=== PATIENT | female | born 1945 | race Caucasian/White ===

== ENCOUNTER → 2016-11-28 | Outpatient (CLI) | payer MEDICARE ==
--- NOTE | 2016-11-28 15:54 | US ---
EXAMINATION TYPE: US thyroid st tissue head/neck DATE OF EXAM: 11/28/2016 COMPARISON: NONE CLINICAL HISTORY: R22.1 SWELLING IN NECK. small lymph node seen rt neck 1.4 x 0.7 x 0.8 cm GLAND SIZE: Right Lobe: 3.9 x 1.7 x 1.2 cm Overall Parenchyma: homogenous Left Lobe: 4.5 x 1.5 x 1.3 cm Overall Parenchyma: homogeneous Isthmus Thickness: 0.5 cm NODULES RIGHT: # of nodules measured on right: 1 1. 1.1 X 1.2 x 0.7 cm isoechoic mixed nodule at the mid pole with well-defined margins; . This nod ule is wider than tall and shows intranodular vascularity. Prior size: no prior LEFT: # of nodules measured on left: 0 ISTHMUS: # of nodules measured in the isthmus: 0 Mildly prominent lymph node right neck measuring 1.4 x 0.7 cm. IMPRESSION: 1. Nonspecific thyroid nodule. 2. Mildly prominent lymph node right neck.
--- NOTE | 2016-11-29 08:55 | BD ---
EXAMINATION TYPE: MG DEXA axial skeleton. DATE OF EXAM: 11/28/2016 COMPARISON: Prior DEXA bone scan April 16, 2010. CLINICAL HISTORY: Postmenopausal female Height: 62 Weight: 259.1 FRAX RISK QUESTIONS: Alcohol (3 or more units per day): NO Family History (Parent hip fracture): NO Glucocorticoids (More than 3mos): NO (Ex: prednisone, prednisolone, methylprednisolone, dexamethasone, and hydrocortisone). History of Fracture in Adulthood: NO Secondary Osteoporosis: 1. Type 1 Diabetes: NO 2. Hyperthyroidism: NO 3. Menopause before 45: NO 4. Malnutrition: NO 5. Chronic liver disease: NO Rheumatoid Arthritis: YES Current Tobacco Use: NO RISK FACTORS HISTORY OF: Hip Fracture (Right/Left): NO Spine Fracture: NO History of Wrist Fracture: NO Surgery to Spine/Hip(right/left)/Wrist (right/left): NO Family History of Osteoporosis: NO Active: NO Diet low in dairy products/other sources of calcium: YES Postmenopausal woman: TOTAL HYSTERECTOMY AGE 43 Lost more than 2 inches in height since high school: NO Frequent falls: NO Poor Health: NO Hyperparathyroidism: NO Adrenal Insufficiency: NO MEDICATIONS: TYPE 2 DIABETIC MEDS, HEART MEDS, RESTLESS LEG MEDS, Additional History: EXAM MEASUREMENTS: Bone mineral densitometry was performed using the [employer]. Bone mineral density as measured about the Lumbar spine is: ----- L1-L4(G/cm2): 1.284 T Score Values are as follows: ----- L2: 1.6 ----- L3: 2.1 ----- L4: 0.1 ----- L1-L4: 0.9 Bone mineral density has: UWOVCMXPR09.7 % since study of: 04.16.2010 Bone mineral density about the R hip (g/cm2): 0.755 Bone mineral density about the L hip (g/cm2): 0.880 T Score values are as follows: -----R Neck: -2.0 -----L Neck: -1.1 -----R Total: -1.1 -----L Total: -0.6 Bone mineral density has: DECREASED -4.9 % since study of: 04.16.2010 IMPRESSION: Osteopenia (T Score between -2.5 and -1 as noted by T score values persists in the bilateral hips. Jorge ne density felt falsely elevated in the low back due to reactive sclerosis. Bone density slightly dim inished from prior exam in both hips. There is slightly increased risk of fracture and the patient ma y be considered for treatment. Re-Screen 2-5 years. NOTE: T-SCORE=SD OF THE YOUNG ADULT MEAN.
--- NOTE | 2016-11-29 11:53 | MM ---
Reason for exam: screening (asymptomatic). Last mammogram was performed 2 years and 1 month ago. History: Patient is postmenopausal. Family history of breast cancer in paternal aunt at age 55. Taking estrogen for 20 years beginning at age 43. Physical Findings: A clinical breast exam by your physician is recommended on an annual basis and results should be correlated with mammographic findings. MG 3D Screening Mammo W/Cad Bilateral CC and MLO view(s) were taken. Prior study comparison: November 09, 2014, bilateral MG screening mammo w CAD. April 16, 2010, bilateral digital screening mammo w/CAD. There are scattered fibroglandular densities. Finding: There are typically benign round, diffuse and grouped calcifications in both breasts. There is no discrete abnormality. ASSESSMENT: Benign, BI-RAD 2 RECOMMENDATION: Routine screening mammogram of both breasts in 1 year.
== END | disposition home or self-care (01) ==
LOC: RADMAMWWP 15:00
PROVIDERS: ATTEND Family Medicine
DX: Z12.31 Encounter for screening mammogram for malignant neoplasm of breast (principal); M85.88 Other specified disorders of bone density and structure, other site; E04.1 Nontoxic single thyroid nodule; R59.0 Localized enlarged lymph nodes; Z78.0 Asymptomatic menopausal state; Z13.820 Encounter for screening for osteoporosis
CPT/HCPCS: 77080; 77063; 76536; G0202

== ENCOUNTER → 2017-07-18 | Outpatient (CLI) | payer MEDICARE ==
--- NOTE | 2017-07-18 10:48 | US ---
EXAMINATION TYPE: US thyroid st tissue head/neck DATE OF EXAM: 07/18/2017 COMPARISON: Thyroid ultrasound November 28, 2016 CLINICAL HISTORY: R22.1 Swelling Neck, I48.91 A Fib. Swollen neck. Hx of nodule. GLAND SIZE: Right Lobe: 4.0 x 2.1 x 1.2 cm Overall Parenchyma: heterogenous Left Lobe: 4.3 x 1.8 x 1.7 cm Overall Parenchyma: heterogeneous Isthmus Thickness: 0.5 cm NODULES RIGHT: # of nodules measured on right: 2 1. 1.2 X 1.2 x 0.9 cm hypoechoic solid nodule at the mid pole with well-defined margins. This nod ule is taller than wide and shows intranodular vascularity. Prior size: 1.1 x 1.2 x 0.7 cm 2. 0.7 X 0.5 x 0.4 cm echogenic solid nodule at the lower pole with well-defined margins. This nodu le is taller than wide and shows no intranodular vascularity. Prior size: No prior LEFT: # of nodules measured on left: 0 ISTHMUS: # of nodules measured in the isthmus: 0 Bilateral neck scanned, no evidence of lymphadenopathy. Heterogeneous normal-sized thyroid redemonstrated with stable 1.2 cm spongiform nodule. On current st udy technologist also pandey a 7 mm posterior hyperechoic nodule not clearly seen on prior. IMPRESSION: No new greater than 1 cm solid or cystic nodules are seen.
--- NOTE | 2017-07-18 10:50 | US ---
EXAMINATION TYPE: US carotid duplex BILAT DATE OF EXAM: 07/18/2017 COMPARISON: NONE CLINICAL HISTORY: R22.1 Swelling Neck, I48.91 A Fib. Afib, HTN controlled with meds EXAM MEASUREMENTS: RIGHT: Peak Systolic Velocity (PSV) cm/sec ----- Right CCA: 58.2 ----- Right ICA: 74.5 ----- Right ECA: 119.5 ICA/CCA ratio: 1.3 RIGHT: End Diastole cm/sec ----- Right CCA: 18.2 ----- Right ICA: 21.6 ----- Right ECA: 19.2 LEFT: Peak Systolic Velocity (PSV) cm/sec ----- Left CCA: 90.4 ----- Left ICA: 134.5 ----- Left ECA: 85.4 ICA/CCA ratio: 1.5 LEFT: End Diastole cm/sec ----- Left CCA: 28.7 ----- Left ICA: 45.7 ----- Left ECA: 23.2 VERTEBRALS (direction of flow): Right Vertebral: Antegrade Left Vertebral: Antegrade Rhythm: Arrhythmia Mild eccentric plaque is seen at bilateral carotid bulbs. Slightly increased velocity measured in the left internal carotid artery is believed exaggerated by tortuous course. Arrhythmia noted during laxmi l-time scanning. IMPRESSION: No hemodynamically significant stenosis seen in either internal carotid artery. Arrhyth antonieta during real-time scanning is present. If this is not known finding further investigation with Hol ter monitoring should be considered.
== END | disposition home or self-care (01) ==
LOC: RADUSWWP 09:41
PROVIDERS: ATTEND Family Medicine
DX: R22.1 Localized swelling, mass and lump, neck (principal); I48.91 Unspecified atrial fibrillation
CPT/HCPCS: 76536; 93880

== ENCOUNTER 2018-03-31 15:03 | Inpatient (IN) | payer MEDICARE ==
[2018-03-31] MEDS ORDERED: VANCOMYCIN IV PER PHARMACY 1 EACH MISC MISCELLANE PRN (15:49)
[2018-03-31] MEDS ORDERED: PIPERACILLIN-TAZOBACTAM 3.375 GM in SODIUM CHLORIDE 0.9% 100 ML IVPB STA (15:49)
[2018-03-31] MEDS ORDERED: SODIUM CHLORIDE 0.9% 1,000 ML IV ONE (15:49)
--- NOTE | 2018-03-31 15:59 | ED ---
Skin/Abscess/FB HPI - General Chief complaint: Skin/Abscess/Foreign Body Stated complaint: lower body infection Time Seen by Provider: 03/31/18 15:33 Source: patient, RN notes reviewed, old records reviewed Mode of arrival: ambulatory Limitations: no limitations - History of Present Illness Initial comments: Patient is a 72-year-old female with history of diabetes presenting to the emergency department today with a groin infection. Patient ports she was diagnosed as labial cellulitis by her HOTSHOT SUPERINTENDENT Dr. Richmond. She's been on amoxicillin for the past and days and reports that her symptoms have been progressively worse. Patient states that she discussed the case with Dr. Richmond discussed the case with Dr. Shirley. Dr. Shirley recommended bringing the Patient in for IV antibiotics and admission. Patient states that she has had no fevers or chills. She states that she's had a cellulitis in the area of infection for the past month. She is stressed with taking care of other family 7 seconds and her over the past month. - Related Data Home Medications Medication Instructions Recorded Confirmed Insulin Aspart [NovoLOG] 0 units SQ [facility] 10/10/14 10/10/14 Insulin Glargine,Hum.rec.anlog 0 unit SQ 10/10/14 10/10/14 [Lantus Solostar] Lisinopril [Prinivil] 20 mg PO DAILY 10/10/14 03/31/18 Atorvastatin [Lipitor] 40 mg PO DAILY 03/31/18 03/31/18 Cyclobenzaprine [Flexeril] 10 mg PO HS 03/31/18 03/31/18 Multivitamins, Thera [Multivitamin 1 tab PO DAILY 03/31/18 03/31/18 (formulary)] Potassium 297 mg PO HS 03/31/18 03/31/18 Torsemide [Demadex] 10 mg PO DAILY 03/31/18 03/31/18 metFORMIN HCL ER [Glucophage Xr] 500 mg PO DAILY 03/31/18 03/31/18 Allergies Allergy/AdvReac Type Severity Reaction Status Date / Time adhesive Allergy Unknown Verified 03/31/18 16:17 aluminum Allergy Unknown Verified 03/31/18 16:17 Antihistamines - Allergy Unknown Verified 03/31/18 16:17 Ethylenediamine codeine Allergy Unknown Verified 03/31/18 16:17 hydrogen peroxide Allergy Unknown Verified 03/31/18 16:17 latex Allergy Unknown Verified 03/31/18 16:17 lidocaine Allergy Unknown Verified 03/31/18 16:17 nickel Allergy Unknown Verified 03/31/18 16:17 petrolatum,white Allergy Unknown Verified 03/31/18 16:17 [From Petroleum Jelly] procaine HCl [From Novocain] Allergy Unknown Verified 03/31/18 16:17 shellfish derived [Shellfish] Allergy Unknown Verified 03/31/18 16:17 thiopental sodium Allergy Unknown Verified 03/31/18 16:17 [From Pentothal] Review of Systems ROS Statement: Those systems with pertinent positive or pertinent negative responses have been documented in the HPI. ROS Other: All systems not noted in ROS Statement are negative. Past Medical History Past Medical History: Atrial Fibrillation, Coronary Artery Disease (CAD), CVA/ TIA, Diabetes Mellitus, Deep Vein Thrombosis (DVT), Myocardial Infarction ([place]) History of Any Multi-Drug Resistant Organisms: None Reported Past Surgical History: Adenoidectomy, Hysterectomy, Orthopedic Surgery, Tonsillectomy, Tubal Ligation Past Psychological History: No Psychological Hx Reported Smoking Status: Never smoker Past Alcohol Use History: None Reported Past Drug Use History: None Reported General Exam - General Exam Comments Initial Comments: Pleasant 72-year-old female. No distress. Limitations: no limitations General appearance: alert, in no apparent distress Head exam: Present: atraumatic, normocephalic, normal inspection Eye exam: Present: normal appearance, PERRL, EOMI. Absent: scleral icterus, conjunctival injection, periorbital swelling ENT exam: Present: normal exam, mucous membranes moist Neck exam: Present: normal inspection. Absent: tenderness, meningismus, lymphadenopathy Respiratory exam: Present: normal lung sounds bilaterally. Absent: respiratory distress, wheezes, rales, rhonchi, stridor Cardiovascular Exam: Present: regular rate GI/Abdominal exam: Present: soft, normal bowel sounds. Absent: distended, tenderness, guarding, rebound, rigid Extremities exam: Present: normal inspection, full ROM, normal capillary refill , other (And is area of cellulitis over the right inguinal region with the area of the small abscess over the right labia majora. Purulent drainage noted.). Absent: tenderness, pedal edema, joint swelling, calf tenderness Back exam: Present: normal inspection Neurological exam: Present: alert, oriented X3, CN II-XII intact Psychiatric exam: Present: normal affect, normal mood Skin exam: Present: warm, dry, intact, normal color. Absent: rash Course Vital Signs 03/31/18 15:12 Temperature 98.5 F Pulse Rate 112 H Respiratory 18 Rate Blood Pressure 134/88 O2 Sat by Pulse 96 Oximetry Medical Decision Making - Medical Decision Making This patient's a 72-year-old female who presents emergency Department today with complaints of right groin cellulitis abscess. She's been treated with amoxicillin for the past 10 days by her bi architect Dr. Richmond. Patient has evidence of L groin cellulitis with purulent drainage from small abscesses over the right labia. Patient had a culture obtained. We will put the Patient on Zosyn and vancomycin pharmacy to dose. Patient does have a mildly elevated lactic acid 2.1. She was tachycardic on upon arrival and white blood cell count was mildly elevated at 12.8. Dr. Lam discussed the case with Dr. Shirley who agrees for admission. And Patient will have consults to Dr. Richmond, and infectious disease. - Lab Data Result diagrams: 03/31/18 16:11 03/31/18 16:11 Lab Results 03/31/18 03/31/18 03/31/18 Range/Units 16:11 16:11 16:11 WBC 12.8 H (3.8-10.6) k/uL RBC 4.62 (3.80-5.40) m/uL Hgb 13.6 (11.4-16.0) gm/dL Hct 40.9 (34.0-46.0) % MCV 88.4 (80.0-100.0) fL MCH 29.4 (25.0-35.0) pg MCHC 33.2 (31.0-37.0) g/dL RDW 14.6 (11.5-15.5) % Plt Count 252 (150-450) k/uL Neutrophils % 77 % Lymphocytes % 16 % Monocytes % 4 % Eosinophils % 2 % Basophils % 0 % Neutrophils # 9.9 H (1.3-7.7) k/uL Lymphocytes # 2.0 (1.0-4.8) k/uL Monocytes # 0.6 (0-1.0) k/uL Eosinophils # 0.3 (0-0.7) k/uL Basophils # 0.1 (0-0.2) k/uL Sodium 139 (137-145) mmol/L Potassium 4.2 (3.5-5.1) mmol/L Chloride 101 (98-107) mmol/L Carbon Dioxide 27 (22-30) mmol/L Anion Gap 11 mmol/L BUN 23 H (7-17) mg/dL Creatinine 0.79 (0.52-1.04) mg/dL Est GFR (CKD-EPI)AfAm 86 (>60 ml/min/1.73 sqM) Est GFR (CKD-EPI)NonAf 75 (>60 ml/min/1.73 sqM) Glucose 237 H (74-99) mg/dL Plasma Lactic Acid Jaspreet 2.1 H* (0.7-2.0) mmol/L Calcium 9.5 (8.4-10.2) mg/dL Total Bilirubin 0.7 (0.2-1.3) mg/dL AST 20 (14-36) U/L ALT 21 (9-52) U/L Alkaline Phosphatase 103 (38-126) U/L Total Protein 7.4 (6.3-8.2) g/dL Albumin 4.0 (3.5-5.0) g/dL Disposition Clinical Impression: Cellulitis of groin, right, Failure of outpatient treatment, Diabetes Disposition: ADMITTED IP TO THIS HOSP Condition: Good Is patient prescribed a controlled substance at d/c from ED?: No Referrals: Luis Shirley MD [Primary Care Provider] - 1-2 days Time of Disposition: 17:16
[2018-03-31] MEDS: SODIUM CHLORIDE 0.9% 1,000 ML IV SCH (16:19)
[2018-03-31] MEDS ORDERED: VANCOMYCIN 1,750 MG in SODIUM CHLORIDE 0.9% 500 ML 500 ML IVPB ONE (16:30)
[2018-03-31 16:33] LABS: Calcium 9.5 mg/dL (8.4-10.2); Potassium 4.2 mmol/L (3.5-5.1); Total Bilirubin 0.7 mg/dL (0.2-1.3); Total Protein 7.4 g/dL (6.3-8.2)
[2018-03-31 16:47] LABS: Basophils # (A) 0.1 k/uL (0-0.2); Basophils % (A) 0 %; Eosinophils # (A) 0.3 k/uL (0-0.7); Eosinophils % (A) 2 %; HCT 40.9 % (34.0-46.0); HGB 13.6 gm/dL (11.4-16.0); Lymphocytes % (A) 16 %; MCH 29.4 pg (25.0-35.0); MCHC 33.2 g/dL (31.0-37.0); MCV 88.4 fL (80.0-100.0); Mean Platelet Volume 8.3; Monocytes # (A) 0.6 k/uL (0-1.0); Monocytes % (A) 4 %; Neutrophils # (A) 9.9 k/uL (1.3-7.7); Neutrophils % (A) 77 %; Platelet Count 252 k/uL (150-450); RBC 4.62 m/uL (3.80-5.40); RDW 14.6 % (11.5-15.5); WBC 12.8 k/uL (3.8-10.6)
[2018-03-31] MEDS ORDERED: IBUPROFEN 400 MG TAB PO PRN (17:17)
[2018-03-31] MEDS ORDERED: ACETAMINOPHEN TAB 325 MG TAB PO PRN (17:17)
[2018-03-31] MEDS ORDERED: oxyCODONE-APAP 5-325MG 1 EACH TAB PO PRN (17:17)
[2018-03-31] MEDS ORDERED: NALOXONE 0.4 MG/ML 1 ML VIAL IV PRN (17:17)
[2018-03-31] MEDS ORDERED: ONDANSETRON 4 MG/2 ML VIAL IVP PRN (17:17)
[2018-03-31] MEDS ORDERED: HYDROcodone/APAP 5-325MG 1 EACH TAB PO PRN (17:17)
[2018-03-31 17:56] LABS: Appearance,Urine Clear (Clear); Bilirubin,Urine Negative (Negative); Blood,Urine Negative (Negative); Color,Urine Light Yellow; Glucose,Urine (UA) Negative (Negative); Ketones,Urine Negative (Negative); Leukocyte Esterase,Urine Negative (Negative); Nitrite,Urine Negative (Negative); Protein,Urine Negative (Negative); Specific Gravity,Urine 1.006 (1.001-1.035); Urobilinogen,Urine <2.0 mg/dL (<2.0)
[2018-03-31 22:10] LABS: Glucose,Whole Blood 215 mg/dL (75-99)
[2018-03-31] MEDS: POTASSIUM CHLORIDE ER 10 MEQ TAB.ER.PRT PO SCH (22:10)
[2018-03-31] MEDS: INSULIN DETEMIR 100 UNIT/ML 10 ML VIAL SQ SCH (22:29)
[2018-04-01] MEDS ORDERED: CYCLOBENZAPRINE 10 MG TAB ONE (01:30)
[2018-04-01] MEDS: SODIUM CHLORIDE 0.9% 1,000 ML IV SCH ×2 (04:45→09:22)
[2018-04-01] MEDS: CYCLOBENZAPRINE 10 MG TAB PO SCH (04:45)
[2018-04-01 07:37] VITALS: BMI 42.0
[2018-04-01 07:58] LABS: Glucose,Whole Blood 132 mg/dL (75-99)
[2018-04-01] MEDS ORDERED: LISINOPRIL 20 MG TAB PO SCH (09:00)
[2018-04-01] MEDS ORDERED: ATORVASTATIN 40 MG TAB PO SCH (09:00)
[2018-04-01] MEDS: INSULIN ASPART 100 UNIT/ML 1 ML 10 ML VIAL SQ SCH ×4 (09:11→21:45)
[2018-04-01] MEDS: MULTIVITAMINS, THERA 1 EACH TAB PO SCH (09:12)
[2018-04-01] MEDS: metFORMIN 500 MG TAB PO SCH ×2 (09:12→18:12)
[2018-04-01] MEDS: PANTOPRAZOLE 40 MG/10 ML VIAL IV SCH (09:12)
[2018-04-01] MEDS: FUROSEMIDE 20 MG TAB PO SCH (09:23)
[2018-04-01 11:41] LABS: Glucose,Whole Blood 133 mg/dL (75-99)
[2018-04-01] MEDS: VANCOMYCIN 1,750 MG in SODIUM CHLORIDE 0.9% 500 ML 500 ML IVPB SCH (12:21)
--- NOTE | 2018-04-01 14:29 | P.HPIM ---
History of Present Illness H&P Date: 04/01/18 Chief Complaint: Inguinal cellulitis This is a history of physical 72-year-old white female who has an underlying history of somewhat poorly controlled diabetes who has failed outpatient treatment at the emergency department for interstitial cellulitis. She's been on antibiotics for about a week and has had not had significant improvement. She states because of significant family stress, she's not been "taking care of herself as well as she could." Low-grade fever but no chills are stated. No sniffing nausea or vomiting Review of Systems Constitutional: Reports fatigue, Denies chills, Denies fever Eyes: denies blurred vision, denies pain Ears, nose, mouth and throat: Denies headache, Denies sore throat Cardiovascular: Denies chest pain, Denies shortness of breath Respiratory: Denies cough Gastrointestinal: Denies abdominal pain, Denies diarrhea, Denies nausea, Denies vomiting Musculoskeletal: Denies myalgias Integumentary: Reports rash Neurological: Denies numbness, Denies weakness Past Medical History Past Medical History: Atrial Fibrillation, Coronary Artery Disease (CAD), CVA/ TIA, Diabetes Mellitus, Deep Vein Thrombosis (DVT), Myocardial Infarction ([place]) Additional Past Medical History / Comment(s): tia, lt eye macular degeneration. pt stated i don't have hypertension or elevated cholesterol -i take meds to prevent it", had pne vaccine but not sure of date,film writer unable to verify date at time of this admit. Last Myocardial Infarction Date:: unk History of Any Multi-Drug Resistant Organisms: None Reported Past Surgical History: Adenoidectomy, Hysterectomy, Orthopedic Surgery, Tonsillectomy, Tubal Ligation Additional Past Surgical History / Comment(s): pilonidal cyst twice as child, rt knee arthroscopy, krystyna cataracts,krystyna great toe sx, Additional Past Anesthesia/Blood Transfusion Reaction / Comment(s): difficulty waking up after sx. clausterphobia. 1961 blood transfusion(during child ) pt stated had palpitations after 2nd unit given Past Psychological History: No Psychological Hx Reported Smoking Status: Never smoker Past Alcohol Use History: None Reported Past Drug Use History: None Reported - Past Family History Mother Family Medical History: Cancer Additional Family Medical History / Comment(s): lung cancer Father Family Medical History: Coronary Artery Disease (CAD) Additional Family Medical History / Comment(s): heart disease, kidney disese Medications and Allergies Home Medications Medication Instructions Recorded Confirmed Type Insulin Glargine,Hum.rec.anlog 40 unit SQ HS 10/10/14 04/01/18 History [Lantus Solostar] Lisinopril [Prinivil] 20 mg PO DAILY 10/10/14 04/01/18 History Atorvastatin [Lipitor] 40 mg PO DAILY 03/31/18 04/01/18 History Cyclobenzaprine [Flexeril] 10 mg PO BID PRN 03/31/18 04/01/18 History Multivitamins, Thera [Multivitamin 1 tab PO DAILY 03/31/18 04/01/18 History (formulary)] Potassium 297 mg PO HS 03/31/18 04/01/18 History Torsemide [Demadex] 10 mg PO DAILY 03/31/18 04/01/18 History metFORMIN HCL ER [Glucophage Xr] 500 mg PO DAILY 03/31/18 04/01/18 History Glimepiride [Amaryl] 4 mg PO BID 04/01/18 04/01/18 History Insulin Aspart [NovoLOG 10 unit SQ AC-TID 04/01/18 04/01/18 History (formulary)] Allergies Allergy/AdvReac Type Severity Reaction Status Date / Time adhesive Allergy Unknown Verified 04/01/18 09:13 aluminum Allergy Unknown Verified 04/01/18 09:13 Antihistamines - Allergy Unknown Verified 04/01/18 09:13 Ethylenediamine codeine Allergy Unknown Verified 04/01/18 09:13 hydrogen peroxide Allergy Unknown Verified 04/01/18 09:13 latex Allergy Unknown Verified 04/01/18 09:13 lidocaine Allergy Unknown Verified 04/01/18 09:13 nickel Allergy Unknown Verified 04/01/18 09:13 petrolatum,white Allergy Unknown Verified 04/01/18 09:13 [From Petroleum Jelly] procaine HCl [From Novocain] Allergy Unknown Verified 04/01/18 09:13 shellfish derived [Shellfish] Allergy Unknown Verified 04/01/18 09:13 thiopental sodium Allergy Unknown Verified 04/01/18 09:13 [From Pentothal] Physical Exam Vitals: Vital Signs Temp Pulse Pulse Resp BP BP Pulse Ox 04/01/18 07:53 98.0 F 95 20 134/74 96 03/31/18 20:23 99.7 F H 91 16 150/79 97 03/31/18 19:14 59 L 18 143/98 99 03/31/18 17:27 94 18 118/73 98 03/31/18 15:12 98.5 F 112 H 18 134/88 96 Intake and Output 03/31/18 04/01/18 04/01/18 22:59 06:59 14:59 Intake Total 700 800 Balance 700 800 Intake: Intake, IV Titration 700 800 Amount Sodium Chloride 0.9% 1, 200 800 000 ml @ 100 mls/hr IV . Q10H HARIKA Rx#:[id number] Vancomycin 1,750 mg In 500 Sodium Chloride 0.9% 500 ml 500 ml @ 167 mls/hr IVPB Q16H HARIKA Rx#: [id number] Other: Voiding Method Toilet Toilet # Voids 1 2 Weight 104.326 kg 104.326 kg - Constitutional General appearance: obese - EENT Eyes: EOMI - Neck Neck: no lymphadenopathy - Respiratory Respiratory: bilateral: CTA - Cardiovascular Rhythm: regular Heart sounds: normal: S1, S2 Abnormal Heart Sounds: no S3 Gallop - Gastrointestinal General gastrointestinal: no organomegaly, soft, no tenderness - Integumentary Integumentary: cellulitis - Neurologic Neurologic: CNII-XII intact Results CBC & Chem 7: 03/31/18 16:11 03/31/18 16:11 Labs: Abnormal Lab Results - Last 24 Hours (Table) 03/31/18 03/31/18 03/31/18 Range/Units 16:11 16:11 16:11 WBC 12.8 H (3.8-10.6) k/uL Neutrophils # 9.9 H (1.3-7.7) k/uL BUN 23 H (7-17) mg/dL Glucose 237 H (74-99) mg/dL POC Glucose (mg/dL) (75-99) mg/dL Plasma Lactic Acid Jaspreet 2.1 H* (0.7-2.0) mmol/L 03/31/18 04/01/18 04/01/18 Range/Units 21:59 07:37 11:30 WBC (3.8-10.6) k/uL Neutrophils # (1.3-7.7) k/uL BUN (7-17) mg/dL Glucose (74-99) mg/dL POC Glucose (mg/dL) 215 H 132 H 133 H (75-99) mg/dL Plasma Lactic Acid Jaspreet (0.7-2.0) mmol/L Microbiology - Last 24 Hours (Table) 03/31/18 16:11 Gram Stain - Preliminary Groin Wound Culture - Preliminary Thrombosis Risk Factor Assmnt - Choose All That Apply Each Factor Represents 1 point: Obesity (BMI >25) Other Risk Factors: Yes Each Risk Factor Represents 2 Points: Age 61-74 years Thrombosis Risk Factor Assessment Total Risk Factor Score: 3 Thrombosis Risk Factor Assessment Level: Moderate Risk Assessment and Plan (1) Cellulitis of groin, right Current Visit: Yes Status: Acute Code(s): L03.314 - CELLULITIS OF GROIN SNOMED Code(s): 96519387 (2) Diabetes Current Visit: Yes Status: Acute Code(s): E11.9 - TYPE 2 DIABETES MELLITUS WITHOUT COMPLICATIONS SNOMED Code(s): 24554786 (3) Failure of outpatient treatment Current Visit: Yes Status: Acute Code(s): Z78.9 - OTHER SPECIFIED HEALTH STATUS SNOMED Code(s): 095621359 Plan: Empirically treat with vancomycin. Consult infectious disease and MANAGER [employer]IVIL. Otherwise, check CBC in a.m. Sliding scale for diabetes. Increase metformin as necessary. See orders otherwise. The patient is full code. Time with Patient: Less than 30
[2018-04-01 16:31] LABS: Glucose,Whole Blood 77 mg/dL (75-99)
[2018-04-01] MEDS: ATORVASTATIN 40 MG TAB PO SCH (16:58)
[2018-04-01] MEDS: LISINOPRIL 20 MG TAB PO SCH (16:58)
--- NOTE | 2018-04-01 17:46 | CONS ---
CONSULTATION DATE OF SERVICE: 04/01/2018. REASON FOR CONSULTATION: Right groin abscess. HISTORY OF PRESENT ILLNESS: The patient is a 72-year-old female with past medical significant for diabetes mellitus, previous history of labial cellulitis. The patient is presenting to the ER with chief complaints of pain and swelling and redness and induration of the right groin area that has been going on for the last, off and on, for almost a month now. The patient did present with worsening of the swelling, redness, and did have minimal drainage. The patient did have some dull aching pain to the same location with intensity about 3-4 out of 10, and no radiation. The patient did have some chills but denies any high-grade fever. With these symptoms, the patient was evaluated by the ER physician. On arrival to the ER, the patient did have a low-grade fever of 99.7. The patient's white count was elevated 12.8. The patient's creatinine was normal at 0.7. Lactic acid elevated at 2.1. The patient did have cultures obtained from the right groin draining up the area. Blood culture obtained which is currently pending. Patient has been started on vancomycin and Zosyn. Infectious Disease was consulted for further recommendation regarding antibiotic therapy. REVIEW OF SYSTEMS: Positive points have been mentioned in the HPI. The rest of systems have been negative. PAST MEDICAL HISTORY: Significant for diabetes mellitus, atrial fibrillation, coronary artery disease, CVA, TIA, DVT, DC, left eye macular degeneration. PAST SURGICAL HISTORY: Adenoidectomy, hysterectomy, tonsillectomy, tubal ligation, pilonidal cyst removed, right knee arthroscopy and bilateral cataract surgery. SOCIAL HISTORY: No history of smoking, drinking, or drug use. FAMILY HISTORY: Mother with history of lung cancer. Father history of coronary artery disease. ALLERGIES: ANTIHISTAMINE and IODINE, NICKEL. MEDICATIONS: The patient is currently on Tylenol, [place], Lipitor, Flexeril, Lasix, Motrin, NovoLog, Levemir, Zestril. Glucophage, Theragran, Narcan, Zofran, Percocet, K-Dur, and vancomycin 750 q.6 hours. PHYSICAL EXAMINATION: Blood pressure is 151/80 with a pulse of 89, temperature 98.2. She is 99% on room air. General description is an elderly female up in the bed in no distress. No tachypnea or accessory muscles of respiration use. HEENT: Shows no pallor or scleral icterus. Oral mucosa membranes are dry. No pharyngeal erythema or thrush. NECK: Trachea central. No thyromegaly. Lungs unlabored breathing. Clear to auscultation anteriorly. No wheeze or crackles. HEART: S1, S2. Regular rate and rhythm. ABDOMEN: Soft, no tenderness. No guarding or rigidity. EXTREMITIES: No edema of the feet. Examination of the right groin in the presence of the RN did show an area of induration with some swelling. Minimal redness and minimal drainage was noted. Slight foul swelling. Neurological: Patient is awake, alert, oriented x3. Mood and affect normal. LABS: UA was negative. Creatinine 0.7, white count 12.80. Cultures currently pending. DIAGNOSTIC IMPRESSION AND PLAN: Patient with right groin abscess. The patient did have underlying diabetes mellitus, which is mostly of a folliculitis with concern likely for a gram-positive skin vinny. Underlying gram-negative infection less likely but not entirely excluded. PLAN: 1. Vancomycin 750 q.6 hours while watching a Vanco trough and kidney function closely. 2. Await OB evaluation and drainage of this abscess with deep culture. 3. We will follow up on clinical condition and culture to further adjust medication if needed. Thank you for this consultation. Will follow the patient with you. MMODL / IJN: [id number] /
[2018-04-01 21:16] LABS: Glucose,Whole Blood 147 mg/dL (75-99)
[2018-04-01] MEDS: ASCORBIC ACID 500 MG TAB PO SCH (21:44)
[2018-04-01] MEDS: INSULIN DETEMIR 100 UNIT/ML 10 ML VIAL SQ SCH (21:44)
[2018-04-01] MEDS: VIT A,C & E-LUTEIN-MINERALS 1 EACH TAB PO SCH (21:44)
[2018-04-01] MEDS: POTASSIUM CHLORIDE ER 10 MEQ TAB.ER.PRT PO SCH (21:44)
[2018-04-01] MEDS: CHOLECALCIFEROL 1,000 UNIT TAB PO SCH (21:44)
[2018-04-01] MEDS: TIMOLOL 0.5% OPHTH DROPS 5 ML BTL BOTH EYES SCH (21:49)
[2018-04-01 22:21] LABS: Hemoglobin A1C 8.2 % (4.0-6.0)
[2018-04-02] MEDS: SODIUM CHLORIDE 0.9% 1,000 ML IV SCH ×3 (00:48→20:19)
[2018-04-02] MEDS: CYCLOBENZAPRINE 10 MG TAB PO SCH ×2 (00:48→22:15)
[2018-04-02] MEDS: VANCOMYCIN 1,750 MG in SODIUM CHLORIDE 0.9% 500 ML 500 ML IVPB SCH ×2 (04:14→20:09)
[2018-04-02 07:16] LABS: Glucose,Whole Blood 81 mg/dL (75-99)
[2018-04-02] MEDS: INSULIN ASPART 100 UNIT/ML 1 ML 10 ML VIAL SQ SCH ×4 (07:17→21:01)
[2018-04-02] MEDS: VIT A,C & E-LUTEIN-MINERALS 1 EACH TAB PO SCH ×2 (07:26→20:10)
[2018-04-02] MEDS: FUROSEMIDE 20 MG TAB PO SCH (07:27)
[2018-04-02] MEDS: ASCORBIC ACID 500 MG TAB PO SCH ×2 (07:27→20:09)
[2018-04-02] MEDS: TIMOLOL 0.5% OPHTH DROPS 5 ML BTL BOTH EYES SCH ×2 (07:27→20:10)
[2018-04-02] MEDS: MULTIVITAMINS, THERA 1 EACH TAB PO SCH (07:27)
[2018-04-02] MEDS: PANTOPRAZOLE 40 MG/10 ML VIAL IV SCH (07:27)
[2018-04-02] MEDS: CHOLECALCIFEROL 1,000 UNIT TAB PO SCH ×2 (07:27→20:09)
[2018-04-02] MEDS: metFORMIN 500 MG TAB PO SCH ×2 (07:27→17:26)
[2018-04-02 08:11] LABS: HCT 35.9 % (34.0-46.0); HGB 11.4 gm/dL (11.4-16.0); MCHC 31.8 g/dL (31.0-37.0); MCV 91.1 fL (80.0-100.0); Mean Platelet Volume 7.2; Platelet Count 227 k/uL (150-450); RBC 3.94 m/uL (3.80-5.40); RDW 14.8 % (11.5-15.5); WBC 7.7 k/uL (3.8-10.6)
--- NOTE | 2018-04-02 08:24 | P.PN ---
Subjective Progress Note Date: 04/02/18 Principal diagnosis: The patient is a 72-year-old white female with known history of diabetes has failed internal cellulitis treatment as an outpatient. She is essentially admitted for IV therapy and been improving quite well. Decreased pain is noted. No significant nausea, vomiting or diarrhea stated. No other voiding difficulties otherwise stated. No fever or chills are noted. Sleep is stable appetite is nominal. Objective - Vital Signs Vital signs: Vital Signs Temp 98.8 F 04/01/18 19:30 Pulse 85 04/01/18 19:30 Resp 16 04/01/18 19:30 BP 137/70 04/01/18 19:30 Pulse Ox 99 04/01/18 14:15 Intake & Output 04/01/18 04/02/18 04/02/18 18:59 06:59 18:59 Intake Total 800 1200 Balance 800 1200 Weight 104.326 kg Intake: IV 800 Sodium Chloride 0.9% 1, 800 000 ml @ 100 mls/hr IV . Q10H HARIKA Rx#:[id number] Intake, IV Titration 1200 Amount Sodium Chloride 0.9% 1, 1200 000 ml @ 100 mls/hr IV . Q10H HARIKA Rx#:[id number] Other: Voiding Method Toilet Toilet # Voids 2 2 - Constitutional General appearance: Present: obese - EENT Eyes: Absent: abnormal pupil - Neck Neck: Absent: lymphadenopathy - Respiratory Respiratory: bilateral: CTA - Cardiovascular Rhythm: regular - Gastrointestinal General gastrointestinal: Present: soft. Absent: tenderness - Psychiatric Psychiatric: Present: A&O x's 3 - Labs CBC & Chem 7: 04/02/18 07:43 03/31/18 16:11 Labs: Abnormal Lab Results - Last 24 Hours (Table) 03/31/18 04/01/18 04/01/18 Range/Units 16:11 11:30 21:05 POC Glucose (mg/dL) 133 H 147 H (75-99) mg/dL Hemoglobin A1c 8.2 H (4.0-6.0) % Microbiology - Last 24 Hours (Table) 03/31/18 16:11 Gram Stain - Preliminary Groin Wound Culture - Preliminary Strep agalactiae - (group b) 03/31/18 16:11 Blood Culture - Preliminary Blood No Growth after 24 hours Assessment and Plan (1) Cellulitis of groin, right Current Visit: Yes Status: Acute Code(s): L03.314 - CELLULITIS OF GROIN SNOMED Code(s): 59560581 (2) Diabetes Current Visit: Yes Status: Acute Code(s): E11.9 - TYPE 2 DIABETES MELLITUS WITHOUT COMPLICATIONS SNOMED Code(s): 56847734 (3) Failure of outpatient treatment Current Visit: Yes Status: Acute Code(s): Z78.9 - OTHER SPECIFIED HEALTH STATUS SNOMED Code(s): 255978741 Plan: Continue vancomycin. Appreciate consultants input. Check CBC and CMP in a.m. per See orders otherwise Time with Patient: Less than 30
[2018-04-02 08:44] LABS: ALT 18 U/L (9-52); AST 20 U/L (14-36); Albumin 3.3 g/dL (3.5-5.0); Alkaline Phosphatase 72 U/L (38-126); Blood Urea Nitrogen 15 mg/dL (7-17); Calcium 8.7 mg/dL (8.4-10.2); Chloride 109 mmol/L (98-107); Glucose 75 mg/dL (74-99); Potassium 3.9 mmol/L (3.5-5.1); Sodium 142 mmol/L (137-145); Total Bilirubin 0.7 mg/dL (0.2-1.3); Total Protein 6.3 g/dL (6.3-8.2)
[2018-04-02 08:59] LABS: Anion Gap 7 mmol/L; Carbon Dioxide 26 mmol/L (22-30)
--- NOTE | 2018-04-02 09:58 | P.OBCN ---
History of Present Illness Consult date: 04/02/18 Reason for consult: medical complication (Right groin abscess) Chief complaint: Right groin abscess History of present illness: Bel is a 72-year-old female who was seen by me in consultation in February for a right groin abscess. Initially cultures were obtained and she was started on oral antibiotics. I did follow up with her approximately 2 weeks after the antibiotic initiated that there was no significant change and it looked slightly more cellulitic therefore she was admitted by Dr. Shirley for IV antibiotics. In seeing her today, after proxy 48 hours of IV antibiotics the area looks much improved. There is significant less redness from my recollection from 2 days ago. We'll plan your medical management and continued care with this. She relates that it is still draining but hurts less and she feels much better. Past Medical History Past Medical History: Atrial Fibrillation, Coronary Artery Disease (CAD), CVA/ TIA, Diabetes Mellitus, Deep Vein Thrombosis (DVT), Myocardial Infarction (MD) Additional Past Medical History / Comment(s): tia, lt eye macular degeneration. pt stated i don't have hypertension or elevated cholesterol -i take meds to prevent it", had pne vaccine but not sure of date,display card writer unable to verify date at time of this admit. Last Myocardial Infarction Date:: unk History of Any Multi-Drug Resistant Organisms: None Reported Past Surgical History: Adenoidectomy, Hysterectomy, Orthopedic Surgery, Tonsillectomy, Tubal Ligation Additional Past Surgical History / Comment(s): pilonidal cyst twice as child, rt knee arthroscopy, krystyna cataracts,rkystyna great toe sx, Additional Past Anesthesia/Blood Transfusion Reaction / Comm: difficulty waking up after sx. clausterphobia. 1961 blood transfusion(during child ) pt stated had palpitations after 2nd unit given Past Psychological History: No Psychological Hx Reported Smoking Status: Never smoker Past Alcohol Use History: None Reported Past Drug Use History: None Reported - Past Family History Mother Family Medical History: Cancer Additional Family Medical History / Comment(s): lung cancer Father Family Medical History: Coronary Artery Disease (CAD) Additional Family Medical History / Comment(s): heart disease, kidney disese Medications and Allergies Home Medications Medication Instructions Recorded Confirmed Type Insulin Glargine,Hum.rec.anlog 40 unit SQ HS 10/10/14 04/01/18 History [Lantus Solostar] Lisinopril [Prinivil] 20 mg PO HS 10/10/14 04/01/18 History Atorvastatin [Lipitor] 40 mg PO HS 03/31/18 04/01/18 History Cyclobenzaprine [Flexeril] 10 mg PO BID PRN 03/31/18 04/01/18 History Multivitamins, Thera [Multivitamin 1 tab PO DAILY 03/31/18 04/01/18 History (formulary)] Potassium 297 mg PO HS 03/31/18 04/01/18 History Torsemide [Demadex] 10 mg PO DAILY 03/31/18 04/01/18 History metFORMIN HCL ER [Glucophage Xr] 500 mg PO BID 03/31/18 04/01/18 History Ascorbic Acid [Vitamin C] 500 mg PO BID 04/01/18 04/01/18 History Cholecalciferol [Vitamin D3] 1,000 unit PO BID 04/01/18 04/01/18 History Glimepiride [Amaryl] 4 mg PO BID 04/01/18 04/01/18 History Insulin Aspart [NovoLOG 10 unit SQ AC-TID 04/01/18 04/01/18 History (formulary)] Potassium 99 mg PO QAM 04/01/18 04/01/18 History Timolol 0.5% Ophth Soln [Timoptic 1 drop BOTH EYES BID 04/01/18 04/01/18 History 0.5% Ophth Soln] Vit C/E/Zn/Coppr/Lutein/Zeaxan 2 cap PO BID 04/01/18 04/01/18 History [Preservision Areds 2 Softgel] Allergies Allergy/AdvReac Type Severity Reaction Status Date / Time adhesive Allergy Unknown Verified 04/01/18 09:13 aluminum Allergy Unknown Verified 04/01/18 09:13 Antihistamines - Allergy Unknown Verified 04/01/18 09:13 Ethylenediamine codeine Allergy Unknown Verified 04/01/18 09:13 hydrogen peroxide Allergy Unknown Verified 04/01/18 09:13 latex Allergy Unknown Verified 04/01/18 09:13 lidocaine Allergy Unknown Verified 04/01/18 09:13 nickel Allergy Unknown Verified 04/01/18 09:13 petrolatum,white Allergy Unknown Verified 04/01/18 09:13 [From Petroleum Jelly] procaine HCl [From Novocain] Allergy Unknown Verified 04/01/18 09:13 shellfish derived [Shellfish] Allergy Unknown Verified 04/01/18 09:13 thiopental sodium Allergy Unknown Verified 04/01/18 09:13 [From Pentothal] Exam Osteopathic Statement: *. No significant issues noted on an osteopathic structural exam other than those noted in the History and Physical/Consult. Vital Signs Temp Pulse Resp BP Pulse Ox 04/02/18 07:12 97.5 F L 68 16 114/69 97 04/01/18 19:30 98.8 F 85 16 137/70 04/01/18 14:15 98.2 F 89 16 151/80 99 Intake and Output 04/01/18 04/02/18 04/02/18 22:59 06:59 14:59 Intake Total 800 400 Balance 800 400 Intake: Intake, IV Titration 800 400 Amount Sodium Chloride 0.9% 1, 800 400 000 ml @ 100 mls/hr IV . Q10H HARIKA Rx#:[id number] Other: Voiding Method Toilet # Voids 2 - OBG Physical Exam Vulva: Right groin abscess with decreased cellulitis Results Result Diagrams: 04/02/18 07:43 04/02/18 07:43 Abnormal Lab Results - Last 24 Hours (Table) 03/31/18 04/01/18 04/01/18 Range/Units 16:11 11:30 21:05 Chloride (98-107) mmol/L POC Glucose (mg/dL) 133 H 147 H (75-99) mg/dL Hemoglobin A1c 8.2 H (4.0-6.0) % Albumin (3.5-5.0) g/dL 04/02/18 Range/Units 07:43 Chloride 109 H (98-107) mmol/L POC Glucose (mg/dL) (75-99) mg/dL Hemoglobin A1c (4.0-6.0) % Albumin 3.3 L (3.5-5.0) g/dL Microbiology - Last 24 Hours (Table) 03/31/18 16:11 Gram Stain - Preliminary Groin Wound Culture - Preliminary Strep agalactiae - (group b) 03/31/18 16:11 Blood Culture - Preliminary Blood No Growth after 24 hours
[2018-04-02 11:54] LABS: Glucose,Whole Blood 118 mg/dL (75-99)
[2018-04-02 17:09] LABS: Glucose,Whole Blood 166 mg/dL (75-99)
[2018-04-02] MEDS: ATORVASTATIN 40 MG TAB PO SCH (17:26)
[2018-04-02] MEDS: LISINOPRIL 20 MG TAB PO SCH (17:26)
[2018-04-02] MEDS: POTASSIUM CHLORIDE ER 10 MEQ TAB.ER.PRT PO SCH (20:10)
[2018-04-02 20:28] LABS: Glucose,Whole Blood 144 mg/dL (75-99)
[2018-04-02] MEDS: INSULIN DETEMIR 100 UNIT/ML 10 ML VIAL SQ SCH (22:15)
[2018-04-02] MEDS: ceFAZolin IN SWFI 2 GM/20 ML SYRINGE IVP SCH (23:14)
--- NOTE | 2018-04-02 23:46 | PN ---
PROGRESS NOTE DATE OF SERVICE: 04/02/2018. REASON FOR FOLLOW UP: Right groin abscess. INTERVAL HISTORY: The patient is afebrile. He is breathing comfortably. The pain is subsiding and drainage has decreased. . Denies having any chest pain, shortness of breath, cough or abdominal pain and no diarrhea. PHYSICAL EXAMINATION: Blood pressure is 145/76, pulse of 85, temperature 98.5, pulse ox 98% on room air. GENERAL DESCRIPTION: An elderly female, lying in bed in no distress. RESPIRATORY SYSTEM: Unlabored breathing. Clear to auscultation anteriorly. HEART: S1, S2. Regular rate and rhythm. ABDOMEN: Soft, no tenderness. Right groin area overall swelling and redness has decreased. LABS: BUN of 15, creatinine 0.75, hemoglobin 11.4, white count 7.7. DIAGNOSTIC IMPRESSION AND PLAN: Patient with right groin abscess, culture now with Streptococcus agalactiae. The patient has been evaluated by OB and no surgical intervention has been has recommended. Plan at this time is to switch antibiotic to Rocephin 2 g every 8 hours and discontinue the vancomycin. Monitor clinical course closely. Continue supportive care. MMODL / IJN: [id number] /
[2018-04-03 07:13] LABS: Glucose,Whole Blood 116 mg/dL (75-99)
[2018-04-03] MEDS: INSULIN ASPART 100 UNIT/ML 1 ML 10 ML VIAL SQ SCH ×4 (07:17→20:15)
--- NOTE | 2018-04-03 08:01 | P.PN ---
Subjective Principal diagnosis: The patient is a 72-year-old white female with known history of diabetes has failed internal cellulitis treatment as an outpatient. She is essentially admitted for IV therapy and been improving quite well. Decreased pain is noted. No significant nausea, vomiting or diarrhea stated. No other voiding difficulties otherwise stated. No fever or chills are noted. Sleep is stable appetite is nominal. She states she had some bloody discharge in the groin area. However, strep echo lactate has now been noted on culture and she is currently on Rocephin. Appreciate multiple consultants input. Objective - Vital Signs Vital signs: Vital Signs Temp 98.5 F 04/02/18 19:30 Pulse 85 04/02/18 19:30 Resp 17 04/02/18 19:30 BP 144/72 04/02/18 19:30 Pulse Ox 99 04/02/18 19:30 Intake & Output 04/02/18 04/03/18 04/03/18 18:59 06:59 18:59 Intake Total 1792 1500 Balance 1792 1500 Intake: IV 1000 Sodium Chloride 0.9% 1, 1000 000 ml @ 100 mls/hr IV . Q10H HARIKA Rx#:[id number] Intake, IV Titration 700 500 Amount Sodium Chloride 0.9% 1, 700 000 ml @ 100 mls/hr IV . Q10H HARIKA Rx#:[id number] Vancomycin 1,750 mg In 500 Sodium Chloride 0.9% 500 ml 500 ml @ 167 mls/hr IVPB Q16H HARIKA Rx#: [id number] Oral 1092 Other: Voiding Method Toilet # Voids 0 - Constitutional General appearance: Present: obese - EENT Eyes: Absent: abnormal pupil - Respiratory Respiratory: bilateral: CTA - Cardiovascular Rhythm: regular Heart sounds: normal: S1, S2 Abnormal Heart Sounds: Absent: S3 Gallop - Gastrointestinal General gastrointestinal: Present: soft. Absent: tenderness - Psychiatric Psychiatric: Present: A&O x's 3, appropriate affect - Labs CBC & Chem 7: 04/02/18 07:43 04/02/18 07:43 Labs: Abnormal Lab Results - Last 24 Hours (Table) 04/02/18 04/02/18 04/02/18 Range/Units 07:43 11:52 17:07 Chloride 109 H (98-107) mmol/L POC Glucose (mg/dL) 118 H 166 H (75-99) mg/dL Albumin 3.3 L (3.5-5.0) g/dL 04/02/18 04/03/18 Range/Units 20:26 07:11 Chloride (98-107) mmol/L POC Glucose (mg/dL) 144 H 116 H (75-99) mg/dL Albumin (3.5-5.0) g/dL Microbiology - Last 24 Hours (Table) 03/31/18 16:11 Gram Stain - Final Groin Wound Culture - Final Strep agalactiae - (group b) 03/31/18 16:11 Blood Culture - Preliminary Blood No Growth after 48 hours Assessment and Plan (1) Cellulitis of groin, right Current Visit: Yes Status: Acute Code(s): L03.314 - CELLULITIS OF GROIN SNOMED Code(s): 51472613 (2) Diabetes Current Visit: Yes Status: Acute Code(s): E11.9 - TYPE 2 DIABETES MELLITUS WITHOUT COMPLICATIONS SNOMED Code(s): 83431199 (3) Failure of outpatient treatment Current Visit: Yes Status: Acute Code(s): Z78.9 - OTHER SPECIFIED HEALTH STATUS SNOMED Code(s): 337929402 Plan: Continue Rocephin at this time. Check CBC and CMP in a.m. Dr. Boyd's group covering for the weekend. I do anticipate discharge with oral antibiotic treatment in the next 24-48 hours. Time with Patient: Less than 30
[2018-04-03] MEDS: TIMOLOL 0.5% OPHTH DROPS 5 ML BTL BOTH EYES SCH ×2 (08:21→20:12)
[2018-04-03] MEDS: MULTIVITAMINS, THERA 1 EACH TAB PO SCH (08:21)
[2018-04-03] MEDS: FUROSEMIDE 20 MG TAB PO SCH (08:21)
[2018-04-03] MEDS: PANTOPRAZOLE 40 MG TABLET PO SCH (08:21)
[2018-04-03] MEDS: CHOLECALCIFEROL 1,000 UNIT TAB PO SCH ×2 (08:21→20:12)
[2018-04-03] MEDS: VIT A,C & E-LUTEIN-MINERALS 1 EACH TAB PO SCH ×2 (08:21→20:13)
[2018-04-03] MEDS: ASCORBIC ACID 500 MG TAB PO SCH ×2 (08:21→20:12)
[2018-04-03] MEDS: metFORMIN 500 MG TAB PO SCH ×2 (08:27→17:13)
[2018-04-03 09:25] LABS: HCT 34.8 % (34.0-46.0); HGB 11.1 gm/dL (11.4-16.0); MCH 28.9 pg (25.0-35.0); MCHC 31.8 g/dL (31.0-37.0); MCV 90.8 fL (80.0-100.0); Mean Platelet Volume 7.8; Platelet Count 208 k/uL (150-450); RBC 3.83 m/uL (3.80-5.40); RDW 15.2 % (11.5-15.5); WBC 7.3 k/uL (3.8-10.6)
[2018-04-03] MEDS: ceFAZolin IN SWFI 2 GM/20 ML SYRINGE IVP SCH ×3 (09:26→23:05)
[2018-04-03 10:01] LABS: ALT 23 U/L (9-52); AST 20 U/L (14-36); Albumin 3.2 g/dL (3.5-5.0); Alkaline Phosphatase 78 U/L (38-126); Anion Gap 8 mmol/L; Blood Urea Nitrogen 15 mg/dL (7-17); Calcium 8.4 mg/dL (8.4-10.2); Carbon Dioxide 22 mmol/L (22-30); Chloride 109 mmol/L (98-107); Glucose 188 mg/dL (74-99); Potassium 4.1 mmol/L (3.5-5.1); Sodium 139 mmol/L (137-145); Total Bilirubin 0.6 mg/dL (0.2-1.3); Total Protein 6.1 g/dL (6.3-8.2)
[2018-04-03] MEDS ORDERED: VANCOMYCIN TROUGH DUE 1 EACH MISC MISCELLANE ONE (11:00)
[2018-04-03 11:52] LABS: Glucose,Whole Blood 163 mg/dL (75-99)
[2018-04-03 17:00] LABS: Glucose,Whole Blood 122 mg/dL (75-99)
[2018-04-03] MEDS: ATORVASTATIN 40 MG TAB PO SCH (17:13)
[2018-04-03] MEDS: LISINOPRIL 20 MG TAB PO SCH (17:13)
[2018-04-03] MEDS: SODIUM CHLORIDE 0.9% 1,000 ML IV SCH ×3 (19:33→23:11)
[2018-04-03] MEDS: POTASSIUM CHLORIDE ER 10 MEQ TAB.ER.PRT PO SCH (20:12)
[2018-04-03 20:16] LABS: Glucose,Whole Blood 125 mg/dL (75-99)
[2018-04-03] MEDS: CYCLOBENZAPRINE 10 MG TAB PO SCH (21:54)
[2018-04-03] MEDS: INSULIN DETEMIR 100 UNIT/ML 10 ML VIAL SQ SCH (21:54)
--- NOTE | 2018-04-04 02:38 | PN ---
PROGRESS NOTE DATE OF SERVICE: 04/03/2018 REASON FOR FOLLOWUP: Right groin abscess. INTERVAL HISTORY: The patient is currently afebrile. She is breathing comfortably. Denies having any chest pain or shortness of breath. No cough, abdominal pain or any worsening pain to the right groin area. PHYSICAL EXAMINATION: Blood pressure 145/77 with a pulse of 88, temperature of 98.9, she is 97% on room. GENERAL DESCRIPTION: Elderly female up in the chair in no distress. RESPIRATORY SYSTEM: Unlabored breathing. Clear to auscultation anteriorly. HEART: S1, S2. Regular rate. ABDOMEN: Soft, no tenderness. Right groin overall, induration has decreased. Minimal purulent drainage. LABS: White count of 7.3, creatinine 0.74. DIAGNOSTIC IMPRESSION AND PLAN: Patient with right groin abscess. Culture positive Staphylococcus agalactiae. She is currently on cefazolin antibiotic. We will transition to oral Keflex 500 mg t.i.d. for another 7-10 days with close outpatient followup. Continue supportive care. MMFABIOLAL / RONAN: [id number] /
[2018-04-04 07:20] LABS: Glucose,Whole Blood 93 mg/dL (75-99)
[2018-04-04 07:35] VITALS: RESP 16
[2018-04-04] MEDS: INSULIN ASPART 100 UNIT/ML 1 ML 10 ML VIAL SQ SCH ×4 (07:53→20:42)
[2018-04-04] MEDS: FUROSEMIDE 20 MG TAB PO SCH (08:08)
[2018-04-04] MEDS: VIT A,C & E-LUTEIN-MINERALS 1 EACH TAB PO SCH ×2 (08:08→20:42)
[2018-04-04] MEDS: ASCORBIC ACID 500 MG TAB PO SCH ×2 (08:08→20:42)
[2018-04-04] MEDS: PANTOPRAZOLE 40 MG TABLET PO SCH (08:08)
[2018-04-04] MEDS: ceFAZolin IN SWFI 2 GM/20 ML SYRINGE IVP SCH ×3 (08:08→23:42)
[2018-04-04] MEDS: CHOLECALCIFEROL 1,000 UNIT TAB PO SCH ×2 (08:08→20:42)
[2018-04-04] MEDS: TIMOLOL 0.5% OPHTH DROPS 5 ML BTL BOTH EYES SCH ×2 (08:08→20:41)
[2018-04-04] MEDS: metFORMIN 500 MG TAB PO SCH ×2 (08:08→17:05)
[2018-04-04] MEDS: MULTIVITAMINS, THERA 1 EACH TAB PO SCH (08:09)
[2018-04-04] MEDS: SODIUM CHLORIDE 0.9% 1,000 ML IV SCH ×2 (08:10→20:51)
[2018-04-04 11:53] LABS: Glucose,Whole Blood 172 mg/dL (75-99)
--- NOTE | 2018-04-04 15:34 | P.PN ---
Subjective Progress Note Date: 04/04/18 The patient is a 72-year-old white female with known history of diabetes has failed internal cellulitis treatment as an outpatient. She is essentially admitted for IV therapy and been improving quite well. Decreased pain is noted. No significant nausea, vomiting or diarrhea stated. 04/04/2018 Patient is seen and evaluated in the room at bedside; continues to complain of some burning and pain in groin area; white blood count and vital signs are stable Objective - Vital Signs Vital signs: Vital Signs Temp 98.1 F 04/04/18 07:15 Pulse 89 04/04/18 07:15 Resp 16 04/04/18 07:15 BP 123/84 04/04/18 07:15 Pulse Ox 94 L 04/04/18 07:15 Intake & Output 04/03/18 04/04/18 04/04/18 18:59 06:59 18:59 Intake Total 500 0 296 Balance 500 0 296 Intake: IV 0 Sodium Chloride 0.9% 1, 0 000 ml @ 100 mls/hr IV . Q10H HARIKA Rx#:[id number] Intake, IV Titration 500 Amount Sodium Chloride 0.9% 1, 500 000 ml @ 100 mls/hr IV . Q10H HARIKA Rx#:[id number] Oral 296 Other: Voiding Method Toilet Toilet # Voids 0 2 - Exam - Constitutional General appearance: Present: average body habitus, cooperative, no acute distress - EENT Eyes: Present: anicteric sclerae, EOMI, PERRLA, normal appearance ENT: Present: hearing grossly normal, normal oropharynx Ears: bilateral: normal - Neck Neck: Present: normal ROM. Absent: lymphadenopathy, rigidity, thyromegaly Carotids: negative: bruit present Thyroid: bilateral: normal size, negative: enlarged, nodule - Respiratory Respiratory: bilateral: CTA, negative: rales, rhonchi, wheezing - Cardiovascular Rhythm: regular Heart sounds: normal: S1, S2 Abnormal Heart Sounds: Absent: systolic murmur, diastolic murmur - Gastrointestinal General gastrointestinal: Present: normal bowel sounds, soft. Absent: distended , organomegaly, tenderness - Genitourinary Genitourinary Comment(s): deferred - Integumentary Integumentary: Present: normal turgor. Absent: jaundiced, rash, ulcer - Neurologic Neurologic: Present: CNII-XII intact. Absent: focal deficits - Musculoskeletal Musculoskeletal: Present: gait normal, strength equal bilaterally - Psychiatric Psychiatric: Present: A&O x's 3, appropriate affect, intact judgment & insight - Labs CBC & Chem 7: 04/03/18 08:01 04/03/18 08:01 Labs: Abnormal Lab Results - Last 24 Hours (Table) 04/03/18 04/03/18 04/04/18 Range/Units 16:57 20:15 11:51 POC Glucose (mg/dL) 122 H 125 H 172 H (75-99) mg/dL Microbiology - Last 24 Hours (Table) 03/31/18 16:11 Blood Culture - Preliminary Blood No Growth after 72 hours Assessment and Plan Assessment: 1. Cellulitis right groin; failing outpatient treatment - Continue with IV antibiotics for another 24 hours prior to switching to oral Levaquin 2. Diabetes mellitus; fairly controlled 3. Hyperlipidemia 4. DVT prophylaxis CODE STATUS; full code Time with Patient: Greater than 30
[2018-04-04] MEDS: ATORVASTATIN 40 MG TAB PO SCH (17:05)
[2018-04-04] MEDS: LISINOPRIL 20 MG TAB PO SCH (17:05)
[2018-04-04 17:17] LABS: Glucose,Whole Blood 111 mg/dL (75-99)
[2018-04-04 20:13] LABS: Glucose,Whole Blood 165 mg/dL (75-99)
[2018-04-04] MEDS: POTASSIUM CHLORIDE ER 10 MEQ TAB.ER.PRT PO SCH (20:42)
[2018-04-04] MEDS: INSULIN DETEMIR 100 UNIT/ML 10 ML VIAL SQ SCH (20:42)
[2018-04-04] MEDS: CYCLOBENZAPRINE 10 MG TAB PO SCH (20:42)
[2018-04-05] MEDS: SODIUM CHLORIDE 0.9% 1,000 ML IV SCH (05:06)
[2018-04-05 07:14] LABS: Glucose,Whole Blood 103 mg/dL (75-99)
[2018-04-05] MEDS: INSULIN ASPART 100 UNIT/ML 1 ML 10 ML VIAL SQ SCH ×2 (07:58→12:48)
[2018-04-05 07:59] VITALS: BP 97/58; PULSE 76; TEMP 98.7
[2018-04-05] MEDS: ceFAZolin IN SWFI 2 GM/20 ML SYRINGE IVP SCH (08:13)
[2018-04-05] MEDS: PANTOPRAZOLE 40 MG TABLET PO SCH (08:13)
[2018-04-05] MEDS: ASCORBIC ACID 500 MG TAB PO SCH (08:13)
[2018-04-05] MEDS: VIT A,C & E-LUTEIN-MINERALS 1 EACH TAB PO SCH (08:13)
[2018-04-05] MEDS: metFORMIN 500 MG TAB PO SCH (08:13)
[2018-04-05] MEDS: CHOLECALCIFEROL 1,000 UNIT TAB PO SCH (08:13)
[2018-04-05] MEDS: FUROSEMIDE 20 MG TAB PO SCH (08:13)
[2018-04-05] MEDS: TIMOLOL 0.5% OPHTH DROPS 5 ML BTL BOTH EYES SCH (08:13)
[2018-04-05] MEDS: MULTIVITAMINS, THERA 1 EACH TAB PO SCH (08:13)
--- NOTE | 2018-04-05 11:35 | P.DS ---
Providers Date of admission: 03/31/18 17:17 Expected date of discharge: 04/05/18 Attending physician: Luis Shirley Consults: 03/31/18 17:17 Consult Physician Stat Consulting Provider: Jose Antonio Ni Consult Reason/Comments: R groin cellulitis Do you want consulting provider notified?: Yes Consult Physician Stat Consulting Provider: Jenae Bowman Consult Reason/Comments: R groin abscess Do you want consulting provider notified?: Yes Primary care physician: Luis Shilrey Hospital Course: The patient is a 72-year-old white female with known history of diabetes has failed internal cellulitis treatment as an outpatient. She is essentially admitted for IV therapy and been improving quite well. Decreased pain is noted. No significant nausea, vomiting or diarrhea stated. 04/04/2018 Patient is seen and evaluated in the room at bedside; continues to complain of some burning and pain in groin area; white blood count and vital signs are stable Patient remained clinically stable on IV cefazolin; we will switch to oral Keflex for an additional 7-10 days per ID recommendations Patient will be discharged home in a stable condition Patient Condition at Discharge: Good Plan - Discharge Summary Discharge Rx Participant: No New Discharge Prescriptions: New Cephalexin [Keflex] 500 mg PO Q6HR #40 cap Continue Insulin Glargine,Hum.rec.anlog [Lantus Solostar] 40 unit SQ HS Lisinopril [Prinivil] 20 mg PO HS Torsemide [Demadex] 10 mg PO DAILY Potassium 297 mg PO HS Multivitamins, Thera [Multivitamin (formulary)] 1 tab PO DAILY Cyclobenzaprine [Flexeril] 10 mg PO BID PRN PRN Reason: Pain Atorvastatin [Lipitor] 40 mg PO HS metFORMIN HCL ER [Glucophage Xr] 500 mg PO BID Glimepiride [Amaryl] 4 mg PO BID Insulin Aspart [NovoLOG (formulary)] 10 unit SQ AC-TID Ascorbic Acid [Vitamin C] 500 mg PO BID Cholecalciferol [Vitamin D3] 1,000 unit PO BID Potassium 99 mg PO QAM Timolol 0.5% Ophth Soln [Timoptic 0.5% Ophth Soln] 1 drop BOTH EYES BID Vit C/E/Zn/Coppr/Lutein/Zeaxan [Preservision Areds 2 Softgel] 2 cap PO BID Discharge Medication List Insulin Glargine,Hum.rec.anlog [Lantus Solostar] 40 unit SQ HS 10/10/14 [History ] Lisinopril [Prinivil] 20 mg PO HS 10/10/14 [History] Atorvastatin [Lipitor] 40 mg PO HS 03/31/18 [History] Cyclobenzaprine [Flexeril] 10 mg PO BID PRN 03/31/18 [History] Multivitamins, Thera [Multivitamin (formulary)] 1 tab PO DAILY 03/31/18 [History ] Potassium 297 mg PO HS 03/31/18 [History] Torsemide [Demadex] 10 mg PO DAILY 03/31/18 [History] metFORMIN HCL ER [Glucophage Xr] 500 mg PO BID 03/31/18 [History] Ascorbic Acid [Vitamin C] 500 mg PO BID 04/01/18 [History] Cholecalciferol [Vitamin D3] 1,000 unit PO BID 04/01/18 [History] Glimepiride [Amaryl] 4 mg PO BID 04/01/18 [History] Insulin Aspart [NovoLOG (formulary)] 10 unit SQ AC-TID 04/01/18 [History] Potassium 99 mg PO QAM 04/01/18 [History] Timolol 0.5% Ophth Soln [Timoptic 0.5% Ophth Soln] 1 drop BOTH EYES BID [History] Vit C/E/Zn/Coppr/Lutein/Zeaxan [Preservision Areds 2 Softgel] 2 cap PO BID 04/01 [History] Cephalexin [Keflex] 500 mg PO Q6HR #40 cap 04/03/18 [Rx] Follow up Appointment(s)/Referral(s): Luis Shirley MD [Primary Care Provider] - 1-2 days Jenae Bowman MD [STAFF PHYSICIAN] - 1 Week Patient Instructions/Handouts: Cellulitis (DC) Discharge Disposition: HOME SELF-CARE
[2018-04-05 12:06] LABS: Glucose,Whole Blood 121 mg/dL (75-99)
--- NOTE | 2018-04-07 09:57 | CDI ---
Documentation Clarification Form Date: 04/07/2018 9:39:50 AM From: LUIS ANTONIO Nguyen; Portia Berman Gis Mapping Technician Phone: If you have a question about this query, please contact Portia Berman Gis Mapping Technician at [phone] between 8am and 5pm. Admit Date: 03/31/2018 5:17:00 PM Patient Name: Bel Seth I Visit Number: [id number] Discharge Date: 04/05/2018 3:40:00 PM ATTENTION: The Clinical Documentation Specialists (CDI) and [facility] Coding Staff appreciate your assistance in clarifying documentation. Please respond to the clarification below the line at the bottom and electronically sign. The CDI & [facility] Coding staff will review the response and follow-up if needed. Please note: Queries are made part of the Legal Health Record. If you have any questions, please contact the author of this message via ITS. Dr. Luis Shirley The patient presented with cellulitis of the right groin, and also has known history of DM. She was admitted for IV antibiotics due to her cellulitis failing outpatient treatment. History/Risk Factors: Poorly controlled diabetes, CAD, CVA, HTN, hyperlipidemia , obesity. Clinical Indicators: Purulent drainage, elevated lactic acid, WBC 12.8 blood glucose 237. Treatment: IV Antibiotics In order to capture the severity of Illness and necessary documentation specificity, please clarify if there is a link between the diabetes and current cellulitis of the groin? DM type 2 associated with cellulitis DM type 2 not associated with cellulitis Other, please specify Unable to Determine there is an element of type 2 diabetes associated with cellulitis. MTDD
== END 2018-04-05 15:40 | disposition home or self-care (01) | DRG 638 ==
LOC: EC 15:03 → 4MS4W 17:17 → 4SSUR 17:46
PROVIDERS: ADMIT Family Medicine; ATTEND Family Medicine
DX: E11.69 Type 2 diabetes mellitus with other specified complication (principal); L03.314 Cellulitis of groin; Z68.41 Body mass index [BMI] 40.0-44.9, adult; L02.214 Cutaneous abscess of groin; E78.00 Pure hypercholesterolemia, unspecified; E78.5 Hyperlipidemia, unspecified; H35.30 Unspecified macular degeneration; I10 Essential (primary) hypertension; I25.10 Atherosclerotic heart disease of native coronary artery without angina pectoris; E11.628 Type 2 diabetes mellitus with other skin complications; I48.91 Unspecified atrial fibrillation; L73.9 Follicular disorder, unspecified; B95.4 Other streptococcus as the cause of diseases classified elsewhere; E66.8 Other obesity; Z79.4 Long term (current) use of insulin; I25.2 Old myocardial infarction; Z79.899 Other long term (current) drug therapy; Z80.1 Family history of malignant neoplasm of trachea, bronchus and lung; Z82.49 Family history of ischemic heart disease and other diseases of the circulatory system; Z86.73 Personal history of transient ischemic attack (TIA), and cerebral infarction without residual deficits; Z90.710 Acquired absence of both cervix and uterus; Z88.8 Allergy status to other drugs, medicaments and biological substances; Z91.040 Latex allergy status; Z91.013 Allergy to seafood
CPT/HCPCS: 36415; 80053; 81003; 83036; 83605; 85025; 85027; 87040; 87070; 87205; 96365; 96366; 99284

== ENCOUNTER 2018-05-18 18:35 | Emergency (ER) | payer MEDICARE ==
[2018-05-18 18:58] VITALS: BP 182/116; PULSE 57; RESP 22; TEMP 98.7
--- NOTE | 2018-05-18 19:35 | ED ---
General Adult HPI - General Chief complaint: Extremity Problem,Nontraumatic Stated complaint: L knee pain Source: patient Mode of arrival: ambulatory Limitations: no limitations - History of Present Illness Initial comments: 72-year-old female past medical history of OA presenting today for chief complaint of left knee pain. Patient states she has had chronic arthritis. She states this morning she had increasing pain in her left knee. She denies any erythema or significant swelling. Patient denies any swelling of the foot or ankle. Patient denies any trauma directly to that knee. Patient denies a fever, chills or night sweats. Patient states she is able to range at the left knee however this is painful. Denies any pain out of proportion. Patient denies any numbness tingling or loss sensation coolness pallor of the extremity. Patient denies any recent surgeries. Review of systems negative, patient denies any recent fever, chills, shortness of breath, chest pain, back pain, abdominal pain, nausea or vomiting, numbness or tingling, dysuria or hematuria, constipation or diarrhea, headaches or visual changes, or any other complaints. Upon arrival patient is well, vital signs revealed elevated blood pressure. - Related Data Home Medications Medication Instructions Recorded Confirmed Insulin Glargine,Hum.rec.anlog 40 unit SQ HS 10/10/14 04/01/18 [Lantus Solostar] Lisinopril [Prinivil] 20 mg PO HS 10/10/14 04/01/18 Atorvastatin [Lipitor] 40 mg PO HS 03/31/18 04/01/18 Cyclobenzaprine [Flexeril] 10 mg PO BID PRN 03/31/18 04/01/18 Multivitamins, Thera [Multivitamin 1 tab PO DAILY 03/31/18 04/01/18 (formulary)] Potassium 297 mg PO HS 03/31/18 04/01/18 Torsemide [Demadex] 10 mg PO DAILY 03/31/18 04/01/18 metFORMIN HCL ER [Glucophage Xr] 500 mg PO BID 03/31/18 04/01/18 Ascorbic Acid [Vitamin C] 500 mg PO BID 04/01/18 04/01/18 Cholecalciferol [Vitamin D3] 1,000 unit PO BID 04/01/18 04/01/18 Glimepiride [Amaryl] 4 mg PO BID 04/01/18 04/01/18 INSULIN ASPART (NovoLOG) [NovoLOG 10 unit SQ AC-TID 04/01/18 04/01/18 (formulary)] Potassium 99 mg PO QAM 04/01/18 04/01/18 Timolol 0.5% Ophth Soln [Timoptic 1 drop BOTH EYES BID 04/01/18 04/01/18 0.5% Ophth Soln] Vit C/E/Zn/Coppr/Lutein/Zeaxan 2 cap PO BID 04/01/18 04/01/18 [Preservision Areds 2 Softgel] Previous Rx's Medication Instructions Recorded Amoxicillin/Potassium Clav 1 tab PO Q12HR 7 Days #14 tab 04/05/18 [Augmentin 875-125 Tablet] Allergies Allergy/AdvReac Type Severity Reaction Status Date / Time adhesive Allergy Unknown Verified 04/01/18 09:13 aluminum Allergy Unknown Verified 04/01/18 09:13 Antihistamines - Allergy Unknown Verified 04/01/18 09:13 Ethylenediamine codeine Allergy Unknown Verified 04/01/18 09:13 epinephrine Allergy Unknown Verified 05/18/18 18:59 hydrogen peroxide Allergy Unknown Verified 04/01/18 09:13 latex Allergy Unknown Verified 04/01/18 09:13 lidocaine Allergy Unknown Verified 04/01/18 09:13 nickel Allergy Unknown Verified 04/01/18 09:13 petrolatum,white Allergy Unknown Verified 04/01/18 09:13 [From Petroleum Jelly] procaine HCl [From Novocain] Allergy Unknown Verified 04/01/18 09:13 shellfish derived [Shellfish] Allergy Unknown Verified 04/01/18 09:13 thiopental sodium Allergy Unknown Verified 04/01/18 09:13 [From Pentothal] Review of Systems ROS Statement: Those systems with pertinent positive or pertinent negative responses have been documented in the HPI. ROS Other: All systems not noted in ROS Statement are negative. Past Medical History Past Medical History: Atrial Fibrillation, Coronary Artery Disease (CAD), CVA/ TIA, Diabetes Mellitus, Deep Vein Thrombosis (DVT), Myocardial Infarction ([place]) Additional Past Medical History / Comment(s): tia, lt eye macular degeneration. pt stated i don't have hypertension or elevated cholesterol -i take meds to prevent it", had pne vaccine but not sure of date,investment underwriter unable to verify date at time of this admit. Last Myocardial Infarction Date:: unk History of Any Multi-Drug Resistant Organisms: None Reported Past Surgical History: Adenoidectomy, Hysterectomy, Orthopedic Surgery, Tonsillectomy, Tubal Ligation Additional Past Surgical History / Comment(s): pilonidal cyst twice as child, rt knee arthroscopy, krystyna cataracts,krystyna great toe sx, Additional Past Anesthesia/Blood Transfusion Reaction / Comment(s): difficulty waking up after sx. clausterphobia. 196 blood transfusion(during child ) pt stated had palpitations after 2nd unit given Past Psychological History: No Psychological Hx Reported Smoking Status: Never smoker Past Alcohol Use History: None Reported Past Drug Use History: None Reported - Past Family History Mother Family Medical History: Cancer Additional Family Medical History / Comment(s): lung cancer Father Family Medical History: Coronary Artery Disease (CAD) Additional Family Medical History / Comment(s): heart disease, kidney disese General Exam - General Exam Comments Initial Comments: General: The patient is awake and alert, in no distress, and does not appear acutely ill. Eye: Pupils are equal, round and reactive to light, extra-ocular movements are intact. No nystagmus. There is normal conjunctiva bilaterally. No signs of icterus. Ears, nose, mouth and throat: There are moist mucous membranes and no oral lesions. Neck: The neck is supple, there is no tenderness or JVD. Cardiovascular: There is a regular rate and rhythm. No murmur, rub or gallop is appreciated. Respiratory: Lungs are clear to auscultation, respirations are non-labored, breath sounds are equal. No wheezes, stridor, rales, or rhonchi. Musculoskeletal: Upon inspection of the knees bilaterally there is no evidence of soft tissue swelling there equal comparison. There is no swelling of the leg or feet. No edema. There is no pain with palpation of the calf, there is negative Homans sign bilaterally. Patient has no localized tenderness of the knee, she is able to fully range the left knee with both passive and active range of motion however there is pain with these actions does not appear out of proportion. There is no erythema or warmth to palpation. Normal ROM, no tenderness of the right knee. Patient is obese Strength 5/5. Sensation intact. DP pulses equal bilaterally 2+. Neurological: A&O x 3. CN II-XII intact, There are no obvious motor or sensory deficits. Coordination appears grossly intact. Speech is normal. Skin: Skin is warm and dry and no rashes or lesions are noted. Psychiatric: Cooperative, appropriate mood & affect, normal judgment. Limitations: no limitations Course Vital Signs 05/18/18 18:54 Temperature 98.7 F Pulse Rate 57 L Respiratory 22 Rate Blood Pressure 182/116 O2 Sat by Pulse 96 Oximetry Medical Decision Making - Medical Decision Making Physical examination findings concerning for infectious process at this time. XR revealed osseous process consistent with osteoarthritis, no effusion. There is no soft tissue swelling or erythema. Patient is able to passively range without difficulty or pain out of proportion. Patient is able to weight-bear. Patient neurovascularly intact. At this time feel this is an inflammatory process due to osteoarthritis. Patient was given the size of symptoms concerning for infectious development and given reassurance return parameters for develop of the symptoms. Patient is to follow up outpatient with Dr. Johnson established orthopedic surgeon in next 1-2 days. Pt is agreeable with plan and discharge. Given symptomatic instruction. I did discuss the case with attending provider Dr. Carmen who is agreeable with impression an discharge. Disposition Clinical Impression: Left knee pain, Osteoarthritis of left knee Disposition: HOME SELF-CARE Condition: Good Instructions (If sedation given, give patient instructions): Osteoarthritis (ED ), Knee Pain (ED) Additional Instructions: Please use medication as discussed. Please follow-up with orthopedic surgery in the next 1-2 days for further evaluation. Please follow-up with primary care provider for elevated blood pressure reading. Please return to emergency room if the symptoms increase or worsen or for any other concerns, immediate return for redness, fever, chills, or night sweats. Is patient prescribed a controlled substance at d/c from ED?: No Referrals: Luis Shirley MD [Primary Care Provider] - 1-2 days Telly Hernandez MD [Medical Doctor] - 1-2 days Time of Disposition: 20:31
--- NOTE | 2018-05-18 20:16 | XR ---
Left knee 3 views. History knee pain. Comparison none. FINDINGS: There is narrowing of the medial joint space. There is moderate spurring of the medial femoral and ti bial condyles. There is narrowing of patellofemoral joint with extensive spurring. I see no fracture. IMPRESSION: Moderate osteoarthritis. No fracture.
== END 2018-05-18 20:55 | disposition home or self-care (01) ==
LOC: EC 18:35
DX: M17.12 Unilateral primary osteoarthritis, left knee (principal); I25.10 Atherosclerotic heart disease of native coronary artery without angina pectoris; E11.9 Type 2 diabetes mellitus without complications; I25.2 Old myocardial infarction; Z88.3 Allergy status to other anti-infective agents; Z88.4 Allergy status to anesthetic agent; Z88.5 Allergy status to narcotic agent; Z88.8 Allergy status to other drugs, medicaments and biological substances; Z91.013 Allergy to seafood; Z91.09 Other allergy status, other than to drugs and biological substances; Z79.4 Long term (current) use of insulin; Z79.899 Other long term (current) drug therapy; Z86.73 Personal history of transient ischemic attack (TIA), and cerebral infarction without residual deficits; Z86.718 Personal history of other venous thrombosis and embolism
CPT/HCPCS: 99283

== ENCOUNTER → 2019-04-28 | Outpatient (CLI) | payer MEDICARE ==
[2019-04-28 18:47] LABS: African American GFR (CKD) 56.9 (60.0-200.0); Albumin 3.9 g/dL (3.80-4.90); Albumin/Globulin Ratio 1.56 (1.60-3.17); Anion Gap 9.2 mmol/L (4.00-12.00); BUN/Creat Ratio 26.36 Ratio (12.00-20.00); Calcium 9.3 mg/dL (8.7-10.3); Carbon Dioxide 32.8 mmol/L (21.6-31.8); Globulin 2.5 g/dL (1.6-3.3); Non-African American GFR(CKD) 49.1 (60.0-200.0); Potassium 4.8 mmol/L (3.5-5.5); Total Bilirubin 0.8 mg/dL (0.2-1.2); Total Protein 6.4 g/dL (6.2-8.2)
== END | disposition home or self-care (01) ==
LOC: LABWHC1 13:00
PROVIDERS: ATTEND Internal Medicine Interventional Cardiology
DX: I42.8 Other cardiomyopathies (principal)
CPT/HCPCS: 36415; 80053

== ENCOUNTER 2020-08-13 19:40 | Inpatient (IN) | payer MEDICARE ==
[2020-08-13] MEDS ORDERED: MIDAZOLAM 1 MG/ML 5 ML VIAL IV STA ×3 (19:49→22:19)
[2020-08-13] MEDS ORDERED: SODIUM CHLORIDE 0.9% 1,000 ML IV ONE (19:50)
[2020-08-13] MEDS ORDERED: ASPIRIN 81 MG PO STA (19:52)
--- NOTE | 2020-08-13 19:52 | ED ---
General Adult HPI - General Chief complaint: Arrhythmia/Palpitations Stated complaint: Chest Pain Time Seen by Provider: 08/13/20 19:43 Source: patient, EMS Mode of arrival: EMS Limitations: no limitations - History of Present Illness Initial comments: Patient presents to the ED by ambulance for evaluation. Patient states that she has had rapid heart palpitations for the past 3 hours or so. Patient also admits to feeling somewhat dyspneic, and she states that she has also has a pain "between my shoulder blades" since her palpitations began. Per EMS, the patient was in a wide complex, regular tachycardia with heart rate in the 180s to 220s. Patient was initially stable and had a normal blood pressure, so EMS gave the patient amiodarone 150 mg IV. En route to the emergency department however, the patient's blood pressure dropped, so patient was cardioverted with 100 J. Per EMS, cardioversion slowed the patient's heart rate to the 130s, and patient reported feeling better. Patient denies having any chest pain to me. Patient denies fever or chills, headache, focal numbness/weakness/neuro deficit, neck/arm/jaw pain, pleuritic pain, cough or cold symptoms, syncope, abdominal pain, nausea/vomiting/diarrhea, bloody or melanotic stool, dysuria or urinary symptoms, decreased urine output, or any other symptoms or complaints. - Related Data Home Medications Medication Instructions Recorded Confirmed lisinopriL [Prinivil] 20 mg PO DAILY 10/10/14 08/13/20 Potassium 297 mg PO W/SUPPER 03/31/18 08/13/20 metFORMIN HCL ER [Glucophage Xr] 500 mg PO DAILY 03/31/18 08/13/20 Cholecalciferol [Vitamin D3 (25 2,000 unit PO DAILY 04/01/18 08/13/20 Mcg = 1000 Iu)] Potassium 99 mg PO QAM 04/01/18 08/13/20 Timolol 0.5% Ophth Soln [Timoptic 1 drop BOTH EYES BID 04/01/18 08/13/20 0.5% Ophth Soln] Apixaban [Eliquis] 5 mg PO BID 08/13/20 08/13/20 Ascorbic Acid [Vitamin C] 1,000 mg PO DAILY 08/13/20 08/13/20 Cephalexin [Keflex] 500 mg PO Q6HR 08/13/20 08/13/20 Famotidine 40 mg PO DAILY PRN 08/13/20 08/13/20 Flecainide Acetate 100 mg PO BID 08/13/20 08/13/20 Furosemide [Lasix] 40 mg PO DAILY 08/13/20 08/13/20 Insulin Glargine,Hum.rec.anlog 60 units SQ HS 08/13/20 08/13/20 [Toujeo Max Solostar] Insulin Glargine,Hum.rec.anlog See Protocol SQ DAILY 08/13/20 08/13/20 [Toujeo Max Solostar] Ipratropium [place] [Atrovent Hfa] 2 puff INHALATION RT-QID 08/13/20 08/13/20 Magnesium Oxide 400 mg PO DAILY 08/13/20 08/13/20 Metoprolol Succinate [Toprol XL] 150 mg PO BID 08/13/20 08/13/20 Spironolactone [Aldactone] 12.5 mg PO DAILY 08/13/20 08/13/20 traMADol HCL 50 mg PO Q6H PRN 08/13/20 08/13/20 Allergies Allergy/AdvReac Type Severity Reaction Status Date / Time adhesive Allergy Unknown Verified 08/13/20 20:22 aluminum Allergy Unknown Verified 08/13/20 20:22 Antihistamines - Allergy Unknown Verified 08/13/20 20:22 Ethylenediamine codeine Allergy Unknown Verified 08/13/20 20:22 epinephrine Allergy Unknown Verified 08/13/20 20:22 hydrogen peroxide Allergy Unknown Verified 08/13/20 20:22 latex Allergy Unknown Verified 08/13/20 20:22 lidocaine Allergy Unknown Verified 08/13/20 20:22 nickel Allergy Unknown Verified 08/13/20 20:22 petrolatum,white Allergy Unknown Verified 08/13/20 20:22 [From Petroleum Jelly] procaine HCl [From Novocain] Allergy Unknown Verified 08/13/20 20:22 shellfish derived [Shellfish] Allergy Unknown Verified 08/13/20 20:22 thiopental sodium Allergy Unknown Verified 08/13/20 20:22 [From Pentothal] Review of Systems ROS Statement: Those systems with pertinent positive or pertinent negative responses have been documented in the HPI. ROS Other: All systems not noted in ROS Statement are negative. Past Medical History Past Medical History: Atrial Fibrillation, Coronary Artery Disease (CAD), CVA/TIA, Diabetes Mellitus, Deep Vein Thrombosis (DVT), Myocardial Infarction ([place]) Additional Past Medical History / Comment(s): tia, lt eye macular degeneration. pt stated i don't have hypertension or elevated cholesterol -i take meds to prevent it", had pne vaccine but not sure of date,creative services writer unable to verify date at time of this admit. Last Myocardial Infarction Date:: unk History of Any Multi-Drug Resistant Organisms: None Reported Past Surgical History: Adenoidectomy, Hysterectomy, Orthopedic Surgery, Tonsillectomy, Tubal Ligation Additional Past Surgical History / Comment(s): pilonidal cyst twice as child, rt knee arthroscopy, krystyna cataracts,krystyna great toe sx, Additional Past Anesthesia/Blood Transfusion Reaction / Comment(s): difficulty waking up after sx. clausterphobia. 196 blood transfusion(during child ) pt stated had palpitations after 2nd unit given Past Psychological History: No Psychological Hx Reported Smoking Status: Former smoker Past Alcohol Use History: None Reported Past Drug Use History: None Reported - Past Family History Mother Family Medical History: Cancer Additional Family Medical History / Comment(s): lung cancer Father Family Medical History: Coronary Artery Disease (CAD) Additional Family Medical History / Comment(s): heart disease, kidney disese General Exam Limitations: no limitations General appearance: alert Head exam: Present: atraumatic, normocephalic Eye exam: Present: normal appearance, EOMI ENT exam: Present: mucous membranes moist Neck exam: Present: other (Trachea is in midline) Respiratory exam: Present: respiratory distress, rales, other (Tachypnea, equal breath sounds bilaterally). Absent: wheezes, stridor Cardiovascular Exam: Present: normal rhythm, tachycardia, normal heart sounds, other (Normal radial pulses bilaterally) GI/Abdominal exam: Present: soft. Absent: tenderness, guarding Extremities exam: Present: other (1+ bilateral lower extremity pitting edema). Absent: calf tenderness Neurological exam: Present: alert, oriented X3. Absent: motor sensory deficit Psychiatric exam: Present: normal affect, normal mood Skin exam: Present: warm, dry, intact, normal color Course Vital Signs 05/23/21 05/23/21 05/23/21 19:42 19:50 19:55 Temperature 98.6 F Pulse Rate 131 H 131 H 135 H Respiratory 18 18 16 Rate Blood Pressure 83/56 86/29 O2 Sat by Pulse 99 99 99 Oximetry 08/13/20 08/13/20 08/13/20 20:20 20:48 21:26 Temperature Pulse Rate 133 H 129 H 129 H Respiratory 36 H 49 H 20 Rate Blood Pressure 109/46 121/88 O2 Sat by Pulse 92 L 92 L 94 L Oximetry 08/13/20 08/13/20 21:48 21:50 Temperature Pulse Rate 115 H 93 Respiratory 25 H 20 Rate Blood Pressure 91/67 98/61 O2 Sat by Pulse 94 L 95 Oximetry - Reevaluation(s) Reevaluation #1: 08/13/20 20:00 Case, H&P, EKG findings and EMS/ED management thus far were discussed with Dr. Murphy (cardiology). He recommends amiodarone IV drip, and he agrees with hospital admission. He has no further recommendations at this time. 08/13/20 21:04 Patient's respiratory status began to quickly deteriorate. Patient was having increasing respiratory difficulty, and she was quite tachypneic with low O2 sats. Patient was not tolerating BiPAP ventilation nor nonrebreather mask very well. Decision was made to intubate the patient. 08/13/20 21:40 Case, H&P, test results and ED/EMS management were discussed with Dr. Regalado. He agrees with ICU admission. He has no further recommendations at this time. 08/13/20 21:51 Case, H&P, test results, ED/EMS management and my discussion with Dr. Regalado as above were discussed with TRELL Salter. She accepts ICU admission on behalf of herself and Dr. ePrry. She has no further recommendations at this time. 08/13/20 22:25 Patient is now sedated on the ventilator. Patient is now in atrial fibrillation with a wide QRS complex on the gambling monitor. Patient's heart rate is currently in the 70s to 80s. ED RN has updated the patient's daughter about the patient's condition. EKG Findings - EKG Comments: EKG Findings:: Sinus tachycardia, ventricular rate of 134 bpm, no ectopy, normal DE interval, nonspecific intraventricular conduction delay, QRS duration 166 ms, normal QT interval, no old EKG is available for comparison Procedures - Intubation Sedative: Etomidate Mg Given: 20 Paralytic: Succinylcholine Mg Given: 100 Laryngoscope: other (Video laryngoscope) Size: 3 ET Tube Size: 7.5 ET Tube Uncuffed: No Tube Secured Depth (cm): 22 Tube Secured Location: lips Tube Placement Confirmation: visualized tube passing through cords, equal breath sounds bilaterally, no breath sounds over epigastrium Patient Tolerated Procedure: well, no complications Intubation Complications: none Medical Decision Making - Medical Decision Making Given EMS report, I suspect that the patient's palpitations and dyspnea were likely secondary to ventricular tachycardia and pulmonary edema. Patient was cardioverted in the ambulance just prior to ED arrival, and her rhythm on ED arrival was sinus tachycardia. Patient's chest x-ray shows diffuse pulmonary infiltrates consistent with pulmonary edema. Patient's respiratory status deteriorated upon arrival to the ED, and she was intubated and placed on a ventilator. Given the patient's leukocytosis and pulmonary infiltrates, patient was also treated with IV antibiotics for possible pneumonia. Patient was started on IV amiodarone drip per cardiology's recommendations. Dr. Regalado (laborer starch factory) was notified. TRELL Salter has accepted hospital ICU admission. - Lab Data Result diagrams: 08/13/20 19:58 08/13/20 19:58 Lab Results 08/13/20 08/13/20 08/13/20 Range/Units 19:46 19:58 19:58 WBC 14.3 H (3.8-10.6) k/uL RBC 3.79 L (3.80-5.40) m/uL Hgb 11.6 (11.4-16.0) gm/dL Hct 35.1 (34.0-46.0) % MCV 92.6 (80.0-100.0) fL MCH 30.7 (25.0-35.0) pg MCHC 33.1 (31.0-37.0) g/dL RDW 15.2 (11.5-15.5) % Plt Count 300 (150-450) k/uL MPV 7.7 Neutrophils % 80 % Lymphocytes % 11 % Monocytes % 5 % Eosinophils % 2 % Basophils % 1 % Neutrophils # 11.5 H (1.3-7.7) k/uL Lymphocytes # 1.6 (1.0-4.8) k/uL Monocytes # 0.7 (0-1.0) k/uL Eosinophils # 0.3 (0-0.7) k/uL Basophils # 0.1 (0-0.2) k/uL PT 12.1 H (9.0-12.0) sec INR 1.2 H (<1.2) APTT 25.5 (22.0-30.0) sec D-Dimer 0.81 H (<0.60) mg/L FEU Sodium (137-145) mmol/L Potassium (3.5-5.1) mmol/L Chloride (98-107) mmol/L Carbon Dioxide (22-30) mmol/L Anion Gap mmol/L BUN (7-17) mg/dL Creatinine (0.52-1.04) mg/dL Est GFR (CKD-EPI)AfAm (>60 ml/min/1.73 sqM) Est GFR (CKD-EPI)NonAf (>60 ml/min/1.73 sqM) Glucose (74-99) mg/dL POC Glucose (mg/dL) 331 H (75-99) mg/dL POC Glu Can Operator ID Jose Ohara Plasma Lactic Acid Jaspreet (0.7-2.0) mmol/L Calcium (8.4-10.2) mg/dL Magnesium (1.6-2.3) mg/dL Total Bilirubin (0.2-1.3) mg/dL AST (14-36) U/L ALT (4-34) U/L Alkaline Phosphatase (38-126) U/L Troponin I (0.000-0.034) ng/mL Total Protein (6.3-8.2) g/dL Albumin (3.5-5.0) g/dL Coronavirus (PCR) (Not Detectd) 08/13/20 08/13/20 08/13/20 Range/Units 19:58 19:58 20:41 WBC (3.8-10.6) k/uL RBC (3.80-5.40) m/uL Hgb (11.4-16.0) gm/dL Hct (34.0-46.0) % MCV (80.0-100.0) fL MCH (25.0-35.0) pg MCHC (31.0-37.0) g/dL RDW (11.5-15.5) % Plt Count (150-450) k/uL MPV Neutrophils % % Lymphocytes % % Monocytes % % Eosinophils % % Basophils % % Neutrophils # (1.3-7.7) k/uL Lymphocytes # (1.0-4.8) k/uL Monocytes # (0-1.0) k/uL Eosinophils # (0-0.7) k/uL Basophils # (0-0.2) k/uL PT (9.0-12.0) sec INR (<1.2) APTT (22.0-30.0) sec D-Dimer (<0.60) mg/L FEU Sodium 132 L (137-145) mmol/L Potassium 4.5 (3.5-5.1) mmol/L Chloride 99 (98-107) mmol/L Carbon Dioxide 24 (22-30) mmol/L Anion Gap 9 mmol/L BUN 36 H (7-17) mg/dL Creatinine 1.80 H (0.52-1.04) mg/dL Est GFR (CKD-EPI)AfAm 31 (>60 ml/min/1.73 sqM) Est GFR (CKD-EPI)NonAf 27 (>60 ml/min/1.73 sqM) Glucose 318 H (74-99) mg/dL POC Glucose (mg/dL) (75-99) mg/dL POC Glu Can Operator ID Plasma Lactic Acid Jaspreet (0.7-2.0) mmol/L Calcium 8.4 (8.4-10.2) mg/dL Magnesium 1.8 (1.6-2.3) mg/dL Total Bilirubin 0.4 (0.2-1.3) mg/dL AST 31 (14-36) U/L ALT 12 (4-34) U/L Alkaline Phosphatase 90 (38-126) U/L Troponin I <0.012 (0.000-0.034) ng/mL Total Protein 6.3 (6.3-8.2) g/dL Albumin 3.5 (3.5-5.0) g/dL Coronavirus (PCR) Not Detected (Not Detectd) 08/13/20 Range/Units 21:35 WBC (3.8-10.6) k/uL RBC (3.80-5.40) m/uL Hgb (11.4-16.0) gm/dL Hct (34.0-46.0) % MCV (80.0-100.0) fL MCH (25.0-35.0) pg MCHC (31.0-37.0) g/dL RDW (11.5-15.5) % Plt Count (150-450) k/uL MPV Neutrophils % % Lymphocytes % % Monocytes % % Eosinophils % % Basophils % % Neutrophils # (1.3-7.7) k/uL Lymphocytes # (1.0-4.8) k/uL Monocytes # (0-1.0) k/uL Eosinophils # (0-0.7) k/uL Basophils # (0-0.2) k/uL PT (9.0-12.0) sec INR (<1.2) APTT (22.0-30.0) sec D-Dimer (<0.60) mg/L FEU Sodium (137-145) mmol/L Potassium (3.5-5.1) mmol/L Chloride (98-107) mmol/L Carbon Dioxide (22-30) mmol/L Anion Gap mmol/L BUN (7-17) mg/dL Creatinine (0.52-1.04) mg/dL Est GFR (CKD-EPI)AfAm (>60 ml/min/1.73 sqM) Est GFR (CKD-EPI)NonAf (>60 ml/min/1.73 sqM) Glucose (74-99) mg/dL POC Glucose (mg/dL) (75-99) mg/dL POC Glu Can Operator ID Plasma Lactic Acid Jaspreet 3.6 H* (0.7-2.0) mmol/L Calcium (8.4-10.2) mg/dL Magnesium (1.6-2.3) mg/dL Total Bilirubin (0.2-1.3) mg/dL AST (14-36) U/L ALT (4-34) U/L Alkaline Phosphatase (38-126) U/L Troponin I (0.000-0.034) ng/mL Total Protein (6.3-8.2) g/dL Albumin (3.5-5.0) g/dL Coronavirus (PCR) (Not Detectd) - Radiology Data Chest x-ray #1: Moderately severe pulmonary edema could relate to RDS Chest x-ray #2: Malposition of the endotracheal tube in the right mainstem bronchus, severe pulmonary edema that is worse on exam one hour ago Chest x-ray #3: Pulmonary edema unchanged, endotracheal tube in good position Critical Care Time Critical Care Time: Yes Total Critical Care Time: 90 Disposition Clinical Impression: Tachyarrhythmia, Respiratory failure, Hypoxia, Renal insufficiency, Hyperglycemia, Pulmonary edema Disposition: ADMITTED IP TO THIS HOSP Condition: Stable Is patient prescribed a controlled substance at d/c from ED?: No Time of Disposition: 21:52
[2020-08-13] MEDS: SODIUM CHLORIDE 0.9% 1,000 ML IV STA ×2 (19:56→20:11)
[2020-08-13 20:06] LABS: Basophils # (A) 0.1 k/uL (0-0.2); Basophils % (A) 1 %; Eosinophils # (A) 0.3 k/uL (0-0.7); Eosinophils % (A) 2 %; HCT 35.1 % (34.0-46.0); HGB 11.6 gm/dL (11.4-16.0); Lymphocytes # (A) 1.6 k/uL (1.0-4.8); Lymphocytes % (A) 11 %; MCH 30.7 pg (25.0-35.0); MCHC 33.1 g/dL (31.0-37.0); MCV 92.6 fL (80.0-100.0); Mean Platelet Volume 7.7; Monocytes # (A) 0.7 k/uL (0-1.0); Monocytes % (A) 5 %; Neutrophils # (A) 11.5 k/uL (1.3-7.7); Neutrophils % (A) 80 %; Platelet Count 300 k/uL (150-450); RBC 3.79 m/uL (3.80-5.40); RDW 15.2 % (11.5-15.5); WBC 14.3 k/uL (3.8-10.6)
[2020-08-13 20:06] LABS: Glucose,Whole Blood 331 mg/dL (75-99)
[2020-08-13] MEDS ORDERED: MIDAZOLAM 2 MG/2 ML VIAL IV STA (20:08)
[2020-08-13 20:14] LABS: Potassium 4.5 mmol/L (3.5-5.1)
[2020-08-13 20:15] LABS: Albumin 3.5 g/dL (3.5-5.0); Calcium 8.4 mg/dL (8.4-10.2); Magnesium 1.8 mg/dL (1.6-2.3); Total Bilirubin 0.4 mg/dL (0.2-1.3); Total Protein 6.3 g/dL (6.3-8.2)
[2020-08-13] MEDS ORDERED: AMIODARONE 360 MG in DEXTROSE 5% IN WATER 200 ML IV ONE ×2 (20:15)
[2020-08-13 20:27] LABS: INR 1.2 (<1.2); Partial Thromboplastin Time 25.5 sec (22.0-30.0); Prothrombin Time 12.1 sec (9.0-12.0)
[2020-08-13] MEDS ORDERED: LORazepam 2 MG/ML INJ IV STA (20:30)
[2020-08-13 20:45] LABS: D-Dimer 0.81 mg/L FEU (<0.60)
[2020-08-13] MEDS ORDERED: ETOMIDATE 2 MG/ML 10 ML VIAL IVP STA (20:50)
[2020-08-13] MEDS ORDERED: cefTRIAXone IN SWFI 1,000 MG/10 ML SYRINGE IVP STA (21:17)
[2020-08-13] MEDS ORDERED: AZITHROMYCIN 500 MG in SODIUM CHLORIDE 0.9% 250 ML IVPB STA (21:17)
[2020-08-13] MEDS ORDERED: SUCCINYLCHOLINE CHLORIDE VIAL 200 MG/10 ML VIAL IV STA (21:18)
--- NOTE | 2020-08-13 21:30 | XR ---
EXAMINATION TYPE: XR chest 1V portable DATE OF EXAM: 08/13/2020 COMPARISON: NONE HISTORY: Short of breath TECHNIQUE: Single view FINDINGS: There is pulmonary patchy interstitial and airspace edema. Heart size is fairly normal. The re are chest leads. IMPRESSION: Moderately severe pulmonary edema could relate to RDS. No pleural fluid seen to suggest h eart failure.
[2020-08-13 21:43] LABS: ABG Base Excess -3.6 mmol/L; ABG HCO3 22 mmol/L (21-25); ABG Oxygen Saturation 90.3 % (94-97); ABG PCO2 42 mmHg (35-45); ABG PH 7.33 (7.35-7.45); ABG PO2 65 mmHg (83-108); ABG TCO2 24 mmol/L (19-24); Allen Test Performed? Yes
--- NOTE | 2020-08-13 22:03 | XR ---
EXAMINATION TYPE: XR chest 1V portable DATE OF EXAM: 08/13/2020 COMPARISON: Today HISTORY: Check tube placement TECHNIQUE: Single view FINDINGS: Endotracheal tube is 2 cm into the right mainstem bronchus. There is severe pulmonary airsp angelina edema. Heart is enlarged. IMPRESSION: Malposition of the endotracheal tube in the right mainstem bronchus. Severe pulmonary manuel ma that is worse than exam one hour ago.
--- NOTE | 2020-08-13 22:04 | XR ---
EXAMINATION TYPE: XR chest 1V portable DATE OF EXAM: 08/13/2020 COMPARISON: Today HISTORY: Respiratory failure TECHNIQUE: Single view FINDINGS: Endotracheal tube is 3.8 cm from the chi in good position. There is nasogastric tube in the stomach. There is severe pulmonary edema. Heart is enlarged. There are chest leads. IMPRESSION: Pulmonary edema unchanged. Endotracheal tube in good position.
[2020-08-13 23:59] LABS: Glucose,Whole Blood 379 mg/dL (75-99)
[2020-08-14] MEDS: AMIODARONE 450 MG in DEXTROSE 5% IN WATER 250 ML IV SCH ×4 (01:53→17:26)
[2020-08-14 04:24] LABS: ALT 10 U/L (4-34); AST 30 U/L (14-36); African American GFR (CKD) 70 (>60 ml/min/1.73 sqM); Albumin 1.3 g/dL (3.5-5.0); Alkaline Phosphatase 32 U/L (38-126); Anion Gap 3 mmol/L; Blood Urea Nitrogen 21 mg/dL (7-17); Carbon Dioxide 14 mmol/L (22-30); Chloride 122 mmol/L (98-107); Glucose 155 mg/dL (74-99); Non-African American GFR(CKD) 60 (>60 ml/min/1.73 sqM); Sodium 139 mmol/L (137-145); Total Bilirubin <0.1 mg/dL (0.2-1.3); Total Protein 2.9 g/dL (6.3-8.2)
[2020-08-14 04:35] LABS: Potassium 2.5 mmol/L (3.5-5.1)
[2020-08-14 04:38] LABS: ABG Base Excess 2.7 mmol/L; ABG HCO3 26 mmol/L (21-25); ABG Oxygen Saturation 99.7 % (94-97); ABG PCO2 37 mmHg (35-45); ABG PH 7.47 (7.35-7.45); ABG PO2 241 mmHg (83-108); ABG TCO2 28 mmol/L (19-24); Allen Test Performed? Yes
[2020-08-14 05:38] LABS: Basophils # (A) 0.1 k/uL (0-0.2); Basophils % (A) 0 %; Eosinophils # (A) 0.2 k/uL (0-0.7); Eosinophils % (A) 1 %; HCT 33.3 % (34.0-46.0); HGB 10.9 gm/dL (11.4-16.0); Hypochromasia Slight; Lymphocytes # (A) 1.7 k/uL (1.0-4.8); Lymphocytes % (A) 11 %; MCH 30.6 pg (25.0-35.0); MCHC 32.8 g/dL (31.0-37.0); MCV 93.3 fL (80.0-100.0); Mean Platelet Volume 8.2; Monocytes # (A) 0.8 k/uL (0-1.0); Monocytes % (A) 5 %; Neutrophils # (A) 13.4 k/uL (1.3-7.7); Neutrophils % (A) 82 %; Platelet Count 241 k/uL (150-450); RBC 3.56 m/uL (3.80-5.40); RDW 15.4 % (11.5-15.5); WBC 16.3 k/uL (3.8-10.6)
[2020-08-14 05:47] LABS: Albumin 3.3 g/dL (3.5-5.0); Calcium 8.3 mg/dL (8.4-10.2); Magnesium 1.9 mg/dL (1.6-2.3); Total Bilirubin 0.4 mg/dL (0.2-1.3); Total Protein 6.2 g/dL (6.3-8.2)
[2020-08-14 05:47] LABS: Glucose,Whole Blood 296 mg/dL (75-99)
[2020-08-14 06:40] LABS: Glucose,Whole Blood 276 mg/dL (75-99)
[2020-08-14] MEDS: INSULIN ASPART (NovoLOG) 100 UNIT/ML VIAL SQ SCH ×4 (06:40→20:26)
--- NOTE | 2020-08-14 08:19 | P.HPIM ---
History of Present Illness H&P Date: 08/14/20 Chief Complaint: Dyspnea This is a history of physical 74-year-old white female with known history of atrial fibrillation with rapid ventricular response who came in with significant ventricular tachyarrhythmia. She was recently discharged from [facility] and has had history of left lower extremity cellulitis and lower extremity wounds. She has been fairly compliant with her medications but has had significant immobility. History obtained from ER visitation. Significant dyspnea with amiodarone given. I think the patient was also on Tambocor. The patient is now ventilated due to her respiratory distress. Review of Systems ROS unobtainable: due to endotracheal tube Constitutional: Denies chills, Denies fever Eyes: denies blurred vision, denies pain Ears, nose, mouth and throat: Denies headache, Denies sore throat Past Medical History Past Medical History: Atrial Fibrillation, Coronary Artery Disease (CAD), C VA/TIA, Diabetes Mellitus, Deep Vein Thrombosis (DVT), Myocardial Infarction ([place]) Additional Past Medical History / Comment(s): tia, lt eye macular degeneration. pt stated i don't have hypertension or elevated cholesterol -i take meds to prevent it", had pne vaccine but not sure of date,junior underwriter unable to verify date at time of this admit. Last Myocardial Infarction Date:: unk History of Any Multi-Drug Resistant Organisms: None Reported Past Surgical History: Adenoidectomy, Hysterectomy, Orthopedic Surgery, Tonsillectomy, Tubal Ligation Additional Past Surgical History / Comment(s): pilonidal cyst twice as child, rt knee arthroscopy, krystyna cataracts,krystyna great toe sx, Additional Past Anesthesia/Blood Transfusion Reaction / Comment(s): difficulty waking up after sx. clausterphobia. 1961 blood transfusion(during child ) pt stated had palpitations after 2nd unit given Past Psychological History: No Psychological Hx Reported Smoking Status: Former smoker Past Alcohol Use History: None Reported Past Drug Use History: None Reported - Past Family History Mother Family Medical History: Cancer Additional Family Medical History / Comment(s): lung cancer Father Family Medical History: Coronary Artery Disease (CAD) Additional Family Medical History / Comment(s): heart disease, kidney disese Medications and Allergies Home Medications Medication Instructions Recorded Confirmed Type lisinopriL [Prinivil] 20 mg PO DAILY 10/10/14 08/13/20 History Potassium 297 mg PO W/SUPPER 03/31/18 08/13/20 History metFORMIN HCL ER [Glucophage Xr] 500 mg PO DAILY 03/31/18 08/13/20 History Cholecalciferol [Vitamin D3 (25 2,000 unit PO DAILY 04/01/18 08/13/20 History Mcg = 1000 Iu)] Potassium 99 mg PO QAM 04/01/18 08/13/20 History Timolol 0.5% Ophth Soln [Timoptic 1 drop BOTH EYES BID 04/01/18 08/13/20 History 0.5% Ophth Soln] Apixaban [Eliquis] 5 mg PO BID 08/13/20 08/13/20 History Ascorbic Acid [Vitamin C] 1,000 mg PO DAILY 08/13/20 08/13/20 History Cephalexin [Keflex] 500 mg PO Q6HR 08/13/20 08/13/20 History Famotidine 40 mg PO DAILY PRN 08/13/20 08/13/20 History Flecainide Acetate 100 mg PO BID 08/13/20 08/13/20 History Furosemide [Lasix] 40 mg PO DAILY 08/13/20 08/13/20 History Insulin Glargine,Hum.rec.anlog 60 units SQ HS 08/13/20 08/13/20 History [Toujeo Max Solostar] Insulin Glargine,Hum.rec.anlog See Protocol SQ DAILY 08/13/20 08/13/20 History [Toujeo Max Solostar] Ipratropium [place] [Atrovent Hfa] 2 puff INHALATION RT-QID 08/13/20 08/13/20 History Magnesium Oxide 400 mg PO DAILY 08/13/20 08/13/20 History Metoprolol Succinate [Toprol XL] 150 mg PO BID 08/13/20 08/13/20 History Spironolactone [Aldactone] 12.5 mg PO DAILY 08/13/20 08/13/20 History traMADol HCL 50 mg PO Q6H PRN 08/13/20 08/13/20 History Allergies Allergy/AdvReac Type Severity Reaction Status Date / Time adhesive Allergy Unknown Verified 08/13/20 20:22 aluminum Allergy Unknown Verified 08/13/20 20:22 Antihistamines - Allergy Unknown Verified 08/13/20 20:22 Ethylenediamine codeine Allergy Unknown Verified 08/13/20 20:22 epinephrine Allergy Unknown Verified 08/13/20 20:22 hydrogen peroxide Allergy Unknown Verified 08/13/20 20:22 latex Allergy Unknown Verified 08/13/20 20:22 lidocaine Allergy Unknown Verified 08/13/20 20:22 nickel Allergy Unknown Verified 08/13/20 20:22 petrolatum,white Allergy Unknown Verified 08/13/20 20:22 [From Petroleum Jelly] procaine HCl [From Novocain] Allergy Unknown Verified 08/13/20 20:22 shellfish derived [Shellfish] Allergy Unknown Verified 08/13/20 20:22 thiopental sodium Allergy Unknown Verified 08/13/20 20:22 [From Pentothal] Physical Exam Vitals: Vital Signs Temp Pulse Resp BP Pulse Ox 08/14/20 07:00 74 26 H 81/55 100 08/14/20 06:30 79 26 H 102/52 08/14/20 06:00 82 26 H 111/81 100 08/14/20 05:30 85 26 H 99/81 100 08/14/20 05:00 86 26 H 115/73 100 08/14/20 04:30 91 26 H 112/76 98 08/14/20 04:00 97.7 F 85 26 H 113/80 99 08/14/20 03:30 85 26 H 116/75 89 L 08/14/20 03:00 78 26 H 94/69 99 08/14/20 02:30 71 26 H 101/68 100 08/14/20 02:00 75 26 H 85/53 100 08/14/20 01:30 78 26 H 93/56 100 08/14/20 01:00 73 26 H 101/66 100 08/14/20 00:30 78 26 H 99/56 99 08/14/20 00:00 98.8 F 79 26 H 99 08/13/20 23:54 82 34 H 100 08/13/20 23:33 93 18 99/59 99 08/13/20 22:59 84 20 112/86 99 08/13/20 21:50 93 20 98/61 95 08/13/20 21:48 115 H 25 H 91/67 94 L 08/13/20 21:26 129 H 20 121/88 94 L 08/13/20 20:48 129 H 49 H 92 L 08/13/20 20:20 133 H 36 H 109/46 92 L 08/13/20 19:55 135 H 16 86/29 99 08/13/20 19:50 131 H 18 99 08/13/20 19:42 98.6 F 131 H 18 83/56 99 Intake and Output 08/13/20 08/14/20 08/14/20 22:59 06:59 14:59 Intake Total 3.154 101.408 10 Output Total 150 35 Balance 3.154 -48.592 -25 Intake: IV 50 10 0.9 50 10 Intake, IV Titration 3.154 51.408 Amount propofoL 1,000 mg In 3.154 51.408 Empty Bag 1 bag @ Titrate IV .Q0M [facility] Rx#: [id number] Output: Urine 150 35 Other: Weight 110.677 kg 113.6 kg - Constitutional General appearance: obese - EENT Eyes: no abnormal pupil - Respiratory Respiratory: bilateral: diminished - Cardiovascular Rhythm: regular Heart sounds: normal: S1, S2 Abnormal Heart Sounds: no S3 Gallop - Gastrointestinal General gastrointestinal: soft, no tenderness Results CBC & Chem 7: 08/14/20 05:19 08/14/20 05:19 Labs: Abnormal Lab Results - Last 24 Hours (Table) 08/13/20 08/13/20 08/13/20 Range/Units 19:46 19:58 19:58 WBC 14.3 H (3.8-10.6) k/uL RBC 3.79 L (3.80-5.40) m/uL Hgb (11.4-16.0) gm/dL Hct (34.0-46.0) % Neutrophils # 11.5 H (1.3-7.7) k/uL PT 12.1 H (9.0-12.0) sec INR 1.2 H (<1.2) D-Dimer 0.81 H (<0.60) mg/L FEU ABG pH (7.35-7.45) ABG pO2 (83-108) mmHg ABG HCO3 (21-25) mmol/L ABG Total CO2 (19-24) mmol/L ABG O2 Saturation (94-97) % Sodium (137-145) mmol/L Potassium (3.5-5.1) mmol/L Chloride (98-107) mmol/L Carbon Dioxide (22-30) mmol/L BUN (7-17) mg/dL Creatinine (0.52-1.04) mg/dL Glucose (74-99) mg/dL POC Glucose (mg/dL) 331 H (75-99) mg/dL Plasma Lactic Acid Jaspreet (0.7-2.0) mmol/L Calcium (8.4-10.2) mg/dL Total Bilirubin (0.2-1.3) mg/dL AST (14-36) U/L Alkaline Phosphatase (38-126) U/L Total Protein (6.3-8.2) g/dL Albumin (3.5-5.0) g/dL 08/13/20 08/13/20 08/13/20 Range/Units 19:58 21:35 21:36 WBC (3.8-10.6) k/uL RBC (3.80-5.40) m/uL Hgb (11.4-16.0) gm/dL Hct (34.0-46.0) % Neutrophils # (1.3-7.7) k/uL PT (9.0-12.0) sec INR (<1.2) D-Dimer (<0.60) mg/L FEU ABG pH 7.33 L (7.35-7.45) ABG pO2 65 L (83-108) mmHg ABG HCO3 (21-25) mmol/L ABG Total CO2 (19-24) mmol/L ABG O2 Saturation 90.3 L (94-97) % Sodium 132 L (137-145) mmol/L Potassium (3.5-5.1) mmol/L Chloride (98-107) mmol/L Carbon Dioxide (22-30) mmol/L BUN 36 H (7-17) mg/dL Creatinine 1.80 H (0.52-1.04) mg/dL Glucose 318 H (74-99) mg/dL POC Glucose (mg/dL) (75-99) mg/dL Plasma Lactic Acid Jaspreet 3.6 H* (0.7-2.0) mmol/L Calcium (8.4-10.2) mg/dL Total Bilirubin (0.2-1.3) mg/dL AST (14-36) U/L Alkaline Phosphatase (38-126) U/L Total Protein (6.3-8.2) g/dL Albumin (3.5-5.0) g/dL 08/13/20 08/14/20 08/14/20 Range/Units 23:57 01:09 03:32 WBC (3.8-10.6) k/uL RBC (3.80-5.40) m/uL Hgb (11.4-16.0) gm/dL Hct (34.0-46.0) % Neutrophils # (1.3-7.7) k/uL PT (9.0-12.0) sec INR (<1.2) D-Dimer (<0.60) mg/L FEU ABG pH (7.35-7.45) ABG pO2 (83-108) mmHg ABG HCO3 (21-25) mmol/L ABG Total CO2 (19-24) mmol/L ABG O2 Saturation (94-97) % Sodium (137-145) mmol/L Potassium 2.5 L* (3.5-5.1) mmol/L Chloride 122 H (98-107) mmol/L Carbon Dioxide 14 L (22-30) mmol/L BUN 21 H (7-17) mg/dL Creatinine (0.52-1.04) mg/dL Glucose 155 H (74-99) mg/dL POC Glucose (mg/dL) 379 H (75-99) mg/dL Plasma Lactic Acid Jaspreet 2.3 H* (0.7-2.0) mmol/L Calcium 4.0 L* (8.4-10.2) mg/dL Total Bilirubin <0.1 L (0.2-1.3) mg/dL AST (14-36) U/L Alkaline Phosphatase 32 L (38-126) U/L Total Protein 2.9 L (6.3-8.2) g/dL Albumin 1.3 L (3.5-5.0) g/dL 08/14/20 08/14/20 08/14/20 Range/Units 04:37 05:19 05:19 WBC 16.3 H (3.8-10.6) k/uL RBC 3.56 L (3.80-5.40) m/uL Hgb 10.9 L (11.4-16.0) gm/dL Hct 33.3 L (34.0-46.0) % Neutrophils # 13.4 H (1.3-7.7) k/uL PT (9.0-12.0) sec INR (<1.2) D-Dimer (<0.60) mg/L FEU ABG pH 7.47 H (7.35-7.45) ABG pO2 241 H (83-108) mmHg ABG HCO3 26 H (21-25) mmol/L ABG Total CO2 28 H (19-24) mmol/L ABG O2 Saturation 99.7 H (94-97) % Sodium 132 L (137-145) mmol/L Potassium (3.5-5.1) mmol/L Chloride (98-107) mmol/L Carbon Dioxide 20 L (22-30) mmol/L BUN 40 H (7-17) mg/dL Creatinine 2.02 H (0.52-1.04) mg/dL Glucose 273 H (74-99) mg/dL POC Glucose (mg/dL) (75-99) mg/dL Plasma Lactic Acid Jaspreet (0.7-2.0) mmol/L Calcium 8.3 L (8.4-10.2) mg/dL Total Bilirubin (0.2-1.3) mg/dL AST 65 H (14-36) U/L Alkaline Phosphatase (38-126) U/L Total Protein 6.2 L (6.3-8.2) g/dL Albumin 3.3 L (3.5-5.0) g/dL 08/14/20 08/14/20 08/14/20 Range/Units 05:19 05:45 06:38 WBC (3.8-10.6) k/uL RBC (3.80-5.40) m/uL Hgb (11.4-16.0) gm/dL Hct (34.0-46.0) % Neutrophils # (1.3-7.7) k/uL PT (9.0-12.0) sec INR (<1.2) D-Dimer (<0.60) mg/L FEU ABG pH (7.35-7.45) ABG pO2 (83-108) mmHg ABG HCO3 (21-25) mmol/L ABG Total CO2 (19-24) mmol/L ABG O2 Saturation (94-97) % Sodium (137-145) mmol/L Potassium (3.5-5.1) mmol/L Chloride (98-107) mmol/L Carbon Dioxide (22-30) mmol/L BUN (7-17) mg/dL Creatinine (0.52-1.04) mg/dL Glucose (74-99) mg/dL POC Glucose (mg/dL) 296 H 276 H (75-99) mg/dL Plasma Lactic Acid Jaspreet 2.8 H* (0.7-2.0) mmol/L Calcium (8.4-10.2) mg/dL Total Bilirubin (0.2-1.3) mg/dL AST (14-36) U/L Alkaline Phosphatase (38-126) U/L Total Protein (6.3-8.2) g/dL Albumin (3.5-5.0) g/dL Thrombosis Risk Factor Assmnt - Choose All That Apply Each Factor Represents 1 point: Obesity (BMI >25), Swollen legs (current) Each Risk Factor Represents 2 Points: Patient confined to bed Each Risk Factor Represents 3 Points: Age 75 years or older, History of DVT/PE Thrombosis Risk Factor Assessment Total Risk Factor Score: 10 Thrombosis Risk Factor Assessment Level: High Risk Assessment and Plan (1) Tachyarrhythmia Current Visit: Yes Status: Acute Code(s): R00.0 - TACHYCARDIA, UNSPECIFIED SNOMED Code(s): 8716509 (2) Diabetes Current Visit: No Status: Acute Code(s): E11.9 - TYPE 2 DIABETES MELLITUS WITHOUT COMPLICATIONS SNOMED Code(s): 13867485 (3) Atrial fibrillation Current Visit: Yes Status: Acute Code(s): I48.91 - UNSPECIFIED ATRIAL FIBRILLATION SNOMED Code(s): 92151117 (4) Pulmonary edema Current Visit: Yes Status: Acute Code(s): J81.1 - CHRONIC PULMONARY EDEMA SNOMED Code(s): 96125819 (5) Leg ulcer, left Current Visit: Yes Status: Acute Code(s): L97.929 - NON-PRS CHRONIC ULC UNSP PRT OF L LOW LEG W UNSP SEVERITY SNOMED Code(s): 02242995 Plan: Appropriate diuresis with controlled tachyarrhythmia. The patient is on appropriate ventilatory support. We'll continue to follow from a medical perspective. Prognosis is guarded secondary to multiple comorbidities. Time with Patient: Greater than 30
[2020-08-14] MEDS ORDERED: HEPARIN SODIUM 1,000 UN/ML (10ML VL) IV PRN (09:04)
[2020-08-14] MEDS ORDERED: IPRATROPIUM-ALBUTEROL 3 ML NEB INHALATION PRN (09:10)
--- NOTE | 2020-08-14 09:30 | P.CRDCN ---
History of Present Illness Consult date: 08/14/20 Chief complaint: Cardiac arrhythmia History of present illness: This is a 74-year-old female patient with request to see in the intensive care unit for further evaluation of cardiac arrhythmia. The patient currently is intubated and she is on mechanical ventilation. The history was taken from the chart as well as from the nurse taking care of the patient. Apparently the patient was diagnosed recently with COVID 19 infection and subsequently she was admitted into a rehabilitation at [facility]. She was discharged home. She was experiencing symptoms of heart palpitations at home. EMS was called and the patient was found to be in wide complex tachycardia seems to be consistent with ventricular tachycardia. In the emergency department she received a shock. The patient was cardioverted into atrial fibrillation was c ontrolled heart rate. She is known to have atrial fibrillation of unknown classification if his paroxysmal or persistent or permanent at this point. Currently the patient is intubated on mechanical ventilation that she is stable hemodynamically and not on any vasopressors. She is in pulmonary edema. She is in process of receiving Lasix by the intensive care team. She does have history of coronary artery disease according to the chart as well as history of cardiomyopathy. She is also does have history of probably permanent atrial fibrillation and also history of diabetes and hypertension and dyslipidemia. At this point I would advise continue the patient on amiodarone. We are going to obtain echo to establish an ejection fraction. Beside that we will rule the patient out for acute coronary event by obtaining serial cardiac enzymes. The first set of troponin is slightly elevated. I would avoid any LORI inhibitor at this point because of the renal failure. We will continue following up with the patient Past Medical History Past Medical History: Atrial Fibrillation, Coronary Artery Disease (CAD), CVA/TIA, Diabetes Mellitus, Deep Vein Thrombosis (DVT), Hyperlipidemia, Hypertension, Myocardial Infarction ([place]) Additional Past Medical History / Comment(s): tia, lt eye macular , COVID 19 in 05/2020, RLE wound stage 3 Last Myocardial Infarction Date:: unk History of Any Multi-Drug Resistant Organisms: None Reported Past Surgical History: Adenoidectomy, Hysterectomy, Orthopedic Surgery, Tonsillectomy, Tubal Ligation Additional Past Surgical History / Comment(s): pilonidal cyst twice as child, rt knee arthroscopy, krystyna cataracts,krystyna great toe sx, Additional Past Anesthesia/Blood Transfusion Reaction / Comment(s): difficulty waking up after sx. clausterphobia. 1961 blood transfusion(during child ) pt stated had palpitations after 2nd unit given Past Psychological History: No Psychological Hx Reported Smoking Status: Former smoker Past Alcohol Use History: None Reported Past Drug Use History: None Reported - Past Family History Mother Family Medical History: Cancer Additional Family Medical History / Comment(s): lung cancer Father Family Medical History: Coronary Artery Disease (CAD) Additional Family Medical History / Comment(s): heart disease, kidney disese Medications and Allergies Home Medications Medication Instructions Recorded Confirmed Type lisinopriL [Prinivil] 20 mg PO DAILY 10/10/14 08/13/20 History Potassium 297 mg PO W/SUPPER 03/31/18 08/13/20 History metFORMIN HCL ER [Glucophage Xr] 500 mg PO DAILY 03/31/18 08/13/20 History Cholecalciferol [Vitamin D3 (25 2,000 unit PO DAILY 04/01/18 08/13/20 History Mcg = 1000 Iu)] Potassium 99 mg PO QAM 04/01/18 08/13/20 History Timolol 0.5% Ophth Soln [Timoptic 1 drop BOTH EYES BID 04/01/18 08/13/20 History 0.5% Ophth Soln] Apixaban [Eliquis] 5 mg PO BID 08/13/20 08/13/20 History Ascorbic Acid [Vitamin C] 1,000 mg PO DAILY 08/13/20 08/13/20 History Cephalexin [Keflex] 500 mg PO Q6HR 08/13/20 08/13/20 History Famotidine 40 mg PO DAILY PRN 08/13/20 08/13/20 History Flecainide Acetate 100 mg PO BID 08/13/20 08/13/20 History Furosemide [Lasix] 40 mg PO DAILY 08/13/20 08/13/20 History Insulin Glargine,Hum.rec.anlog 60 units SQ HS 08/13/20 08/13/20 History [Toujeo Max Solostar] Insulin Glargine,Hum.rec.anlog See Protocol SQ DAILY 08/13/20 08/13/20 History [Toujeo Max Solostar] Ipratropium [place] [Atrovent Hfa] 2 puff INHALATION RT-QID 08/13/20 08/13/20 History Magnesium Oxide 400 mg PO DAILY 08/13/20 08/13/20 History Metoprolol Succinate [Toprol XL] 150 mg PO BID 08/13/20 08/13/20 History Spironolactone [Aldactone] 12.5 mg PO DAILY 08/13/20 08/13/20 History traMADol HCL 50 mg PO Q6H PRN 08/13/20 08/13/20 History Allergies Allergy/AdvReac Type Severity Reaction Status Date / Time adhesive Allergy Unknown Verified 08/13/20 20:22 aluminum Allergy Unknown Verified 08/13/20 20:22 Antihistamines - Allergy Unknown Verified 08/13/20 20:22 Ethylenediamine codeine Allergy Unknown Verified 08/13/20 20:22 epinephrine Allergy Unknown Verified 08/13/20 20:22 hydrogen peroxide Allergy Unknown Verified 08/13/20 20:22 latex Allergy Unknown Verified 08/13/20 20:22 lidocaine Allergy Unknown Verified 08/13/20 20:22 nickel Allergy Unknown Verified 08/13/20 20:22 petrolatum,white Allergy Unknown Verified 08/13/20 20:22 [From Petroleum Jelly] procaine HCl [From Novocain] Allergy Unknown Verified 08/13/20 20:22 shellfish derived [Shellfish] Allergy Unknown Verified 08/13/20 20:22 thiopental sodium Allergy Unknown Verified 08/13/20 20:22 [From Pentothal] Physical Exam Vitals: Vital Signs Temp Pulse Resp BP Pulse Ox 08/14/20 07:00 74 26 H 81/55 100 08/14/20 06:30 79 26 H 102/52 08/14/20 06:00 82 26 H 111/81 100 08/14/20 05:30 85 26 H 99/81 100 08/14/20 05:00 86 26 H 115/73 100 08/14/20 04:30 91 26 H 112/76 98 08/14/20 04:00 97.7 F 85 26 H 113/80 99 08/14/20 03:30 85 26 H 116/75 89 L 08/14/20 03:00 78 26 H 94/69 99 08/14/20 02:30 71 26 H 101/68 100 08/14/20 02:00 75 26 H 85/53 100 08/14/20 01:30 78 26 H 93/56 100 08/14/20 01:00 73 26 H 101/66 100 08/14/20 00:30 78 26 H 99/56 99 08/14/20 00:00 98.8 F 79 26 H 99 08/13/20 23:54 82 34 H 100 08/13/20 23:33 93 18 99/59 99 08/13/20 22:59 84 20 112/86 99 08/13/20 21:50 93 20 98/61 95 08/13/20 21:48 115 H 25 H 91/67 94 L 08/13/20 21:26 129 H 20 121/88 94 L 08/13/20 20:48 129 H 49 H 92 L 08/13/20 20:20 133 H 36 H 109/46 92 L 08/13/20 19:55 135 H 16 86/29 99 08/13/20 19:50 131 H 18 99 08/13/20 19:42 98.6 F 131 H 18 83/56 99 Intake and Output 08/13/20 08/14/20 08/14/20 22:59 06:59 14:59 Intake Total 3.154 101.408 10 Output Total 150 35 Balance 3.154 -48.592 -25 Intake: IV 50 10 0.9 50 10 Intake, IV Titration 3.154 51.408 Amount propofoL 1,000 mg In 3.154 51.408 Empty Bag 1 bag @ Titrate IV .Q0M [facility] Rx#: [id number] Output: Urine 150 35 Other: Weight 110.677 kg 113.6 kg - Constitutional General appearance: no acute distress - Respiratory Respiratory: bilateral: CTA - Cardiovascular Rhythm: irregularly irregular Heart sounds: normal: S1, S2 Abnormal Heart Sounds: systolic murmur Results 08/14/20 05:19 08/14/20 05:19 Cardiac Enzymes 08/13/20 08/13/20 08/14/20 Range/Units 19:58 19:58 03:32 AST 31 30 (14-36) U/L Troponin I <0.012 (0.000-0.034) ng/mL 08/14/20 08/14/20 Range/Units 05:19 05:19 AST 65 H (14-36) U/L Troponin I 0.802 H* (0.000-0.034) ng/mL Coagulation 08/13/20 Range/Units 19:58 PT 12.1 H (9.0-12.0) sec APTT 25.5 (22.0-30.0) sec CBC 08/13/20 08/14/20 Range/Units 19:58 05:19 WBC 14.3 H 16.3 H (3.8-10.6) k/uL RBC 3.79 L 3.56 L (3.80-5.40) m/uL Hgb 11.6 10.9 L (11.4-16.0) gm/dL Hct 35.1 33.3 L (34.0-46.0) % Plt Count 300 241 (150-450) k/uL Comprehensive Metabolic Panel 08/13/20 08/14/20 08/14/20 Range/Units 19:58 03:32 05:19 Sodium 132 L 139 132 L (137-145) mmol/L Potassium 4.5 2.5 L* 5.0 (3.5-5.1) mmol/L Chloride 99 122 H 101 (98-107) mmol/L Carbon Dioxide 24 14 L 20 L (22-30) mmol/L BUN 36 H 21 H 40 H (7-17) mg/dL Creatinine 1.80 H 0.93 2.02 H (0.52-1.04) mg/dL Glucose 318 H 155 H 273 H (74-99) mg/dL Calcium 8.4 4.0 L* 8.3 L (8.4-10.2) mg/dL AST 31 30 65 H (14-36) U/L ALT 12 10 22 (4-34) U/L Alkaline Phosphatase 90 32 L 78 (38-126) U/L Total Protein 6.3 2.9 L 6.2 L (6.3-8.2) g/dL Albumin 3.5 1.3 L 3.3 L (3.5-5.0) g/dL Current Medications Generic Name Dose Route Start Last Admin Trade Name Freq PRN Reason Stop Dose Admin Albuterol/Ipratropium 3 ml 08/14/20 12:00 Ipratropium-Albuterol 3 Ml Neb INHALATION RT-QID HARIKA Albuterol/Ipratropium 3 ml 08/14/20 09:10 Ipratropium-Albuterol 3 Ml Neb INHALATION RT-Q2H PRN Shortness Of Breath Or Wheezing Furosemide 40 mg 08/14/20 09:15 Furosemide 10 Mg/Ml 4 Ml Vial IV Q12HR [facility] Heparin Sodium (Porcine) 0 unit 08/14/20 09:04 Heparin Sodium 1,000 Un/Ml (10ml Vl) IV PER PROTOCOL PRN Low PTT Protocol Amiodarone HCl 450 mg/ 250 mls @ 16.667 mls/hr 08/14/20 02:00 08/14/20 01:53 Dextrose/Water IV 08/14/20 19:59 0.5 mg/min .Q15H HARIKA 16.667 mls/hr Administration Protocol 0.5 MG/MIN Propofol 1,000 mg/ IV Solution 100 mls @ 0 mls/hr 08/13/20 21:15 08/14/20 03:41 IV 20 mcg/kg/min .Q0M HARIKA 13.281 mls/hr Administration Protocol Titrate Heparin Sodium/Sodium Chloride 250 mls @ 10 mls/hr 08/14/20 09:15 25,000 unit/ Sodium Chloride IV .Q24H [facility] Protocol 8.803 UNITS/KG/HR Insulin Aspart 0 unit 08/14/20 06:45 08/14/20 06:40 Insulin Aspart (Novolog) 100 Unit/Ml Vial SQ 4 unit Q6HR [facility] Administration Protocol Insulin Detemir 30 unit 08/14/20 07:00 Insulin Detemir (Levemir) 100 Unit/Ml Syr SQ DAILY@0700 [facility] Metoprolol Tartrate 25 mg 08/14/20 09:15 Metoprolol Tartrate 25 Mg Tab PO BID [facility] Pantoprazole Sodium 40 mg 08/14/20 09:15 Pantoprazole 40 Mg/10 Ml Vial IVP DAILY [facility] Intake and Output 08/13/20 08/14/20 08/14/20 22:59 06:59 14:59 Intake Total 3.154 101.408 10 Output Total 150 35 Balance 3.154 -48.592 -25 Intake: IV 50 10 0.9 50 10 Intake, IV Titration 3.154 51.408 Amount propofoL 1,000 mg In 3.154 51.408 Empty Bag 1 bag @ Titrate IV .Q0M [facility] Rx#: [id number] Output: Urine 150 35 Other: Weight 110.677 kg 113.6 kg 08/14/20 05:19 08/14/20 05:19 Assessment and Plan Assessment: Assessment #1 sustained ventricular tachycardia with LBBB morphology #2 history of cardiomyopathy #3 probably permanent atrial fibrillation #4 pulmonary edema #5 respiratory failure #6 multiple comorbid conditions Plan #1 rule out acute coronary event. We'll follow-up with the serial cardiac enzymes #2 assess the ejection fraction by obtaining an echocardiogram was Doppler #3 hold flecainide in view of the history of coronary artery disease and cardiomyopathy #4 continue oral anticoagulation #5 continue beta alfonzo #6 continue amiodarone #7 follow-up with the patient
--- NOTE | 2020-08-14 09:34 | XR ---
EXAMINATION TYPE: XR chest 1V portable DATE OF EXAM: 08/14/2020 COMPARISON: Chest x-ray 08/13/2020 HISTORY: Fluid overload TECHNIQUE: Single frontal view of the chest is obtained. FINDINGS: There is been interval extubation of the patient, orogastric tube remains in place. There is some improvement in the bilateral airspace disease present on prior exam. No pneumothorax or pleur al effusion. Cardiac mediastinal silhouette is likely stable. Aorta is dense. There are overlying escobar ds. Overlying artifacts noted. IMPRESSION: Interval extubation. There is improvement in aeration, persistent bilateral airspace dis ease is noted.
[2020-08-14 10:07] LABS: Glucose,Whole Blood 228 mg/dL (75-99)
[2020-08-14] MEDS: INSULIN DETEMIR (LEVEMIR) 100 UNIT/ML SYR SQ SCH (10:09)
--- NOTE | 2020-08-14 10:09 | P.NPCON ---
History of Present Illness - Reason for Consult acute renal failure - History of Present Illness Reason for consultation: Acute kidney injury History of present illness: Patient is a 74-year-old female seen in renal consultation for acute kidney injury. Patient presented to the hospital with shortness of breath. She presented from an extended care facility. She was also noted to be in V. tach and was shocked once in the ER. She is currently undergoing echocardiogram. She is intubated on 50% FiO2. She is maintained on amiodarone drip as well as heparin drip. She does have history of A. fib. She has long-standing history of diabetes. Chest x-ray was suggestive of pulmonary edema and she was started on IV Lasix 40 mg twice daily this morning. Urine output has been about 20-25 mL an hour. She is not on any vasopressors. She was on lisinopril outpatient which is currently held. Metformin is also held. Hemoglobin 10.9. Vital signs are stable. General: Intubated. HEENT: Head exam is unremarkable. LUNGS: Breath sounds decreased. HEART: Rate and Rhythm are regular. ABDOMEN: Soft, no distention. EXTREMITITES: No trace edema. Past Medical History Past Medical History: Atrial Fibrillation, Coronary Artery Disease (CAD), CVA/TIA, Diabetes Mellitus, Deep Vein Thrombosis (DVT), Hyperlipidemia, Hypertension, Myocardial Infarction (ID) Additional Past Medical History / Comment(s): tia, lt eye macular , COVID 19 in 05/2020, RLE wound stage 3 Last Myocardial Infarction Date:: unk History of Any Multi-Drug Resistant Organisms: None Reported Past Surgical History: Adenoidectomy, Hysterectomy, Orthopedic Surgery, Tonsillectomy, Tubal Ligation Additional Past Surgical History / Comment(s): pilonidal cyst twice as child, rt knee arthroscopy, krystyna cataracts,krystyna great toe sx, Additional Past Anesthesia/Blood Transfusion Reaction / Comment(s): difficulty waking up after sx. clausterphobia. 1961 blood transfusion(during child ) pt stated had palpitations after 2nd unit given Past Psychological History: No Psychological Hx Reported Smoking Status: Former smoker Past Alcohol Use History: None Reported Past Drug Use History: None Reported - Past Family History Mother Family Medical History: Cancer Additional Family Medical History / Comment(s): lung cancer Father Family Medical History: Coronary Artery Disease (CAD) Additional Family Medical History / Comment(s): heart disease, kidney disese Medications and Allergies Home Medications Medication Instructions Recorded Confirmed Type RX: lisinopriL [Prinivil] 20 mg PO DAILY 10/10/14 08/13/20 History RX: Potassium 297 mg PO W/SUPPER 03/31/18 08/13/20 History RX: metFORMIN HCL ER [Glucophage 500 mg PO DAILY 03/31/18 08/13/20 History Xr] RX: Cholecalciferol [Vitamin D3 2,000 unit PO DAILY 04/01/18 08/13/20 History (25 Mcg = 1000 Iu)] RX: Potassium 99 mg PO QAM 04/01/18 08/13/20 History RX: Timolol 0.5% Ophth Soln 1 drop BOTH EYES BID 04/01/18 08/13/20 History [Timoptic 0.5% Ophth Soln] Apixaban [Eliquis] 5 mg PO BID 08/13/20 08/13/20 History Ascorbic Acid [Vitamin C] 1,000 mg PO DAILY 08/13/20 08/13/20 History Cephalexin [Keflex] 500 mg PO Q6HR 08/13/20 08/13/20 History Furosemide [Lasix] 40 mg PO DAILY 08/13/20 08/13/20 History Insulin Glargine,Hum.rec.anlog 60 units SQ HS 08/13/20 08/13/20 History [Toujeo Max Solostar] Insulin Glargine,Hum.rec.anlog See Protocol SQ DAILY 08/13/20 08/13/20 History [Toujeo Max Solostar] Ipratropium [place] [Atrovent Hfa] 2 puff INHALATION RT-QID 08/13/20 08/13/20 History Metoprolol Succinate [Toprol XL] 150 mg PO BID 08/13/20 08/13/20 History RX: Famotidine 40 mg PO DAILY PRN 08/13/20 08/13/20 History RX: Flecainide Acetate 100 mg PO BID 08/13/20 08/13/20 History RX: Magnesium Oxide 400 mg PO DAILY 08/13/20 08/13/20 History RX: traMADol HCL 50 mg PO Q6H PRN 08/13/20 08/13/20 History Spironolactone [Aldactone] 12.5 mg PO DAILY 08/13/20 08/13/20 History Allergies Allergy/AdvReac Type Severity Reaction Status Date / Time adhesive Allergy Unknown Verified 08/13/20 20:22 aluminum Allergy Unknown Verified 08/13/20 20:22 Antihistamines - Allergy Unknown Verified 08/13/20 20:22 Ethylenediamine codeine Allergy Unknown Verified 08/13/20 20:22 epinephrine Allergy Unknown Verified 08/13/20 20:22 hydrogen peroxide Allergy Unknown Verified 08/13/20 20:22 latex Allergy Unknown Verified 08/13/20 20:22 lidocaine Allergy Unknown Verified 08/13/20 20:22 nickel Allergy Unknown Verified 08/13/20 20:22 petrolatum,white Allergy Unknown Verified 08/13/20 20:22 [From Petroleum Jelly] procaine HCl [From Novocain] Allergy Unknown Verified 08/13/20 20:22 shellfish derived [Shellfish] Allergy Unknown Verified 08/13/20 20:22 thiopental sodium Allergy Unknown Verified 08/13/20 20:22 [From Pentothal] Physical Exam Vitals: Vital Signs Temp Pulse Resp BP Pulse Ox 08/14/20 09:00 98.1 F 86 26 H 94/61 99 08/14/20 08:00 74 26 H 102/75 100 08/14/20 07:00 74 26 H 81/55 100 08/14/20 06:30 79 26 H 102/52 08/14/20 06:00 82 26 H 111/81 100 08/14/20 05:30 85 26 H 99/81 100 08/14/20 05:00 86 26 H 115/73 100 08/14/20 04:30 91 26 H 112/76 98 08/14/20 04:00 97.7 F 85 26 H 113/80 99 08/14/20 03:30 85 26 H 116/75 89 L 08/14/20 03:00 78 26 H 94/69 99 08/14/20 02:30 71 26 H 101/68 100 08/14/20 02:00 75 26 H 85/53 100 08/14/20 01:30 78 26 H 93/56 100 08/14/20 01:00 73 26 H 101/66 100 08/14/20 00:30 78 26 H 99/56 99 08/14/20 00:00 98.8 F 79 26 H 99 08/13/20 23:54 82 34 H 100 08/13/20 23:33 93 18 99/59 99 08/13/20 22:59 84 20 112/86 99 08/13/20 21:50 93 20 98/61 95 08/13/20 21:48 115 H 25 H 91/67 94 L 08/13/20 21:26 129 H 20 121/88 94 L 08/13/20 20:48 129 H 49 H 92 L 08/13/20 20:20 133 H 36 H 109/46 92 L 08/13/20 19:55 135 H 16 86/29 99 08/13/20 19:50 131 H 18 99 08/13/20 19:42 98.6 F 131 H 18 83/56 99 Intake and Output 08/13/20 08/14/20 08/14/20 22:59 06:59 14:59 Intake Total 3.154 101.408 40 Output Total 150 105 Balance 3.154 -48.592 -65 Intake: IV 50 40 0.9 50 40 Intake, IV Titration 3.154 51.408 Amount propofoL 1,000 mg In 3.154 51.408 Empty Bag 1 bag @ Titrate IV .Q0M [facility] Rx#: [id number] Output: Urine 150 105 Other: Weight 110.677 kg 113.6 kg Results - Lab Results Most recent lab results ABG pH 7.47 (7.35-7.45) H 08/14/20 04:37 ABG pCO2 37 mmHg (35-45) 08/14/20 04:37 ABG pO2 241 mmHg (83-108) H 08/14/20 04:37 ABG HCO3 26 mmol/L (21-25) H 08/14/20 04:37 ABG O2 Saturation 99.7 % (94-97) H 08/14/20 04:37 Calcium 8.3 mg/dL (8.4-10.2) L 08/14/20 05:19 Magnesium 1.9 mg/dL (1.6-2.3) 08/14/20 05:19 08/14/20 05:19 08/14/20 05:19 Assessment and Plan Plan: Assessment: 1. Acute kidney injury secondary to ATN secondary to cardiorenal syndrome and hemodynamic instability. Creatinine was 1.8 on admission is 2.02 today. Baseline creatinine near 1. 2. V. tach maintained on amiodarone drip. 3. History of A. fib. 4. Acute hypoxic respiratory failure. Intubated. 5. Cardiomyopathy. Echocardiogram pending. 6. Diabetes mellitus. 7. Metabolic acidosis secondary to acute kidney injury. Plan: Lasix 40 mg IV twice daily started this morning. Maintain tube feeding. Follow-up echocardiogram. Follow-up renal ultrasound. Check urinalysis. Continue to monitor renal function and urine output. Avoid nephrotoxins. Thank you for the consultation. I will continue to follow patient with you during her hospital stay.
[2020-08-14] MEDS: PANTOPRAZOLE 40 MG/10 ML VIAL IVP SCH (10:11)
[2020-08-14] MEDS: FUROSEMIDE 10 MG/ML 4 ML VIAL IV SCH ×2 (10:11→20:47)
--- NOTE | 2020-08-14 10:32 | US ---
EXAMINATION TYPE: US kidneys/renal and bladder DATE OF EXAM: 08/14/2020 COMPARISON: NONE CLINICAL HISTORY: acute kidney injury. CHAITANYA exam limitations due to patient on vent unable to roll EXAM MEASUREMENTS: Somewhat limited study due to patient's immobility. Right Kidney: 9.8 x 4.2 x 3.9 cm Left Kidney: 11.0 x 4.3 x 4.4 cm Right Kidney: No hydronephrosis or masses seen Left Kidney: No hydronephrosis or masses seen Bladder: Cather in No hydronephrosis or shadowing renal calculi. IMPRESSION: 1. No evidence of hydronephrosis or shadowing renal calculi. 2. Urinary bladder is not visualized due to catheter.
--- NOTE | 2020-08-14 11:12 | P.CNPUL ---
History of Present Illness Consult date: 08/14/20 Chief complaint: Respiratory failure History of present illness: 74-year-old female patient, known history of cardiac disease including CAD, pr evious VT, previous history of chronic atrial fibrillation, diabetes mellitus whereas been also infected and recovered from COVID-19 back in May 2020 and she is currently being treated for a stage III right lower extremity wound being treated at [facility] and the patient was discharged recently home. The patient was brought into the hospital as the patient was experiencing some palpitations at home. EMS came to the scene and the patient was found to have a wide complex tachycardia consistent with V. tach. In the emergency department, the patient was given a shock and the patient converted to atrial fibrillation with a controlled rate. She was in acute pulmonary edema. She was hypoxic. She was unresponsive. At that point the patient was intubated and placed on a mechanical ventilator. She is currently sedated with propofol and she is calm and comfortable. Probable resolving at 20 mg/kg per minute. She is on assist control mode at the rate of 26 and a tidal volume of 400 and FiO2 of 70% with a PEEP of 8. Peak air pressures 34 static pressure of 27. FiO2 was dropped down to 50%. Chest x-ray is showing some improvement in the bilateral pulmonary edema compared to yesterday. ET tube is high in the trachea and is to be repositioned. As stated, the patient is currently on no pressors. The morning blood gases showed a pH of 7.47 with a pCO2 of 37 and pO2 of 241 and this was on FiO2 of 100%. The white cell count at 16.3. The patient's lactic acid level is at 2.8. Creatinine was up to 2.0 to consistent with an acute kidney injury. Her troponin was 0.80. The patient's proBNP level is 3940. Rest of the blood work and x-rays shows a potassium level of 5.0 with a creatinine of 2.02 and a serum bicarb of 20. Bedside echocardiogram was done and the preliminary report is consistent with severe cardiomyopathy with an ejection fraction of less than 20%. Review of Systems ROS unobtainable: due to endotracheal tube Past Medical History Past Medical History: Atrial Fibrillation, Coronary Artery Disease (CAD), CVA/TIA, Diabetes Mellitus, Deep Vein Thrombosis (DVT), Hyperlipidemia, Hypertension, Myocardial Infarction (VT) Additional Past Medical History / Comment(s): tia, lt eye macular , COVID 19 in 05/2020, RLE wound stage 3 Last Myocardial Infarction Date:: unk History of Any Multi-Drug Resistant Organisms: None Reported Past Surgical History: Adenoidectomy, Hysterectomy, Orthopedic Surgery, Tonsillectomy, Tubal Ligation Additional Past Surgical History / Comment(s): pilonidal cyst twice as child, rt knee arthroscopy, krystyna cataracts,krystyna great toe sx, Additional Past Anesthesia/Blood Transfusion Reaction / Comment(s): difficulty waking up after sx. clausterphobia. 1960 blood transfusion(during child ) pt stated had palpitations after 2nd unit given Past Psychological History: No Psychological Hx Reported Smoking Status: Former smoker Past Alcohol Use History: None Reported Past Drug Use History: None Reported - Past Family History Mother Family Medical History: Cancer Additional Family Medical History / Comment(s): lung cancer Father Family Medical History: Coronary Artery Disease (CAD) Additional Family Medical History / Comment(s): heart disease, kidney disese Medications and Allergies Home Medications Medication Instructions Recorded Confirmed Type RX: lisinopriL [Prinivil] 20 mg PO DAILY 10/10/14 08/13/20 History RX: Potassium 297 mg PO W/SUPPER 03/31/18 08/13/20 History RX: metFORMIN HCL ER [Glucophage 500 mg PO DAILY 03/31/18 08/13/20 History Xr] RX: Cholecalciferol [Vitamin D3 2,000 unit PO DAILY 04/01/18 08/13/20 History (25 Mcg = 1000 Iu)] RX: Potassium 99 mg PO QAM 04/01/18 08/13/20 History RX: Timolol 0.5% Ophth Soln 1 drop BOTH EYES BID 04/01/18 08/13/20 History [Timoptic 0.5% Ophth Soln] Apixaban [Eliquis] 5 mg PO BID 08/13/20 08/13/20 History Ascorbic Acid [Vitamin C] 1,000 mg PO DAILY 08/13/20 08/13/20 History Cephalexin [Keflex] 500 mg PO Q6HR 08/13/20 08/13/20 History Furosemide [Lasix] 40 mg PO DAILY 08/13/20 08/13/20 History Insulin Glargine,Hum.rec.anlog 60 units SQ HS 08/13/20 08/13/20 History [Toubrenda Max Solostar] Insulin Glargine,Hum.rec.anlog See Protocol SQ DAILY 08/13/20 08/13/20 History [Toujeo Max Solostar] Ipratropium [place] [Atrovent Hfa] 2 puff INHALATION RT-QID 08/13/20 08/13/20 History Metoprolol Succinate [Toprol XL] 150 mg PO BID 08/13/20 08/13/20 History RX: Famotidine 40 mg PO DAILY PRN 08/13/20 08/13/20 History RX: Flecainide Acetate 100 mg PO BID 08/13/20 08/13/20 History RX: Magnesium Oxide 400 mg PO DAILY 08/13/20 08/13/20 History RX: traMADol HCL 50 mg PO Q6H PRN 08/13/20 08/13/20 History Spironolactone [Aldactone] 12.5 mg PO DAILY 08/13/20 08/13/20 History Allergies Allergy/AdvReac Type Severity Reaction Status Date / Time adhesive Allergy Unknown Verified 08/13/20 20:22 aluminum Allergy Unknown Verified 08/13/20 20:22 Antihistamines - Allergy Unknown Verified 08/13/20 20:22 Ethylenediamine codeine Allergy Unknown Verified 08/13/20 20:22 epinephrine Allergy Unknown Verified 08/13/20 20:22 hydrogen peroxide Allergy Unknown Verified 08/13/20 20:22 latex Allergy Unknown Verified 08/13/20 20:22 lidocaine Allergy Unknown Verified 08/13/20 20:22 nickel Allergy Unknown Verified 08/13/20 20:22 petrolatum,white Allergy Unknown Verified 08/13/20 20:22 [From Petroleum Jelly] procaine HCl [From Novocain] Allergy Unknown Verified 08/13/20 20:22 shellfish derived [Shellfish] Allergy Unknown Verified 08/13/20 20:22 thiopental sodium Allergy Unknown Verified 08/13/20 20:22 [From Pentothal] Physical Exam Vitals: Vital Signs Temp Pulse Resp BP Pulse Ox 08/14/20 07:00 74 26 H 81/55 100 08/14/20 06:30 79 26 H 102/52 08/14/20 06:00 82 26 H 111/81 100 08/14/20 05:30 85 26 H 99/81 100 08/14/20 05:00 86 26 H 115/73 100 08/14/20 04:30 91 26 H 112/76 98 08/14/20 04:00 97.7 F 85 26 H 113/80 99 08/14/20 03:30 85 26 H 116/75 89 L 08/14/20 03:00 78 26 H 94/69 99 08/14/20 02:30 71 26 H 101/68 100 08/14/20 02:00 75 26 H 85/53 100 08/14/20 01:30 78 26 H 93/56 100 08/14/20 01:00 73 26 H 101/66 100 08/14/20 00:30 78 26 H 99/56 99 08/14/20 00:00 98.8 F 79 26 H 99 08/13/20 23:54 82 34 H 100 08/13/20 23:33 93 18 99/59 99 08/13/20 22:59 84 20 112/86 99 08/13/20 21:50 93 20 98/61 95 08/13/20 21:48 115 H 25 H 91/67 94 L 08/13/20 21:26 129 H 20 121/88 94 L 08/13/20 20:48 129 H 49 H 92 L 08/13/20 20:20 133 H 36 H 109/46 92 L 08/13/20 19:55 135 H 16 86/29 99 08/13/20 19:50 131 H 18 99 08/13/20 19:42 98.6 F 131 H 18 83/56 99 Intake and Output 08/13/20 08/14/20 08/14/20 22:59 06:59 14:59 Intake Total 3.154 101.408 10 Output Total 150 35 Balance 3.154 -48.592 -25 Intake: IV 50 10 0.9 50 10 Intake, IV Titration 3.154 51.408 Amount propofoL 1,000 mg In 3.154 51.408 Empty Bag 1 bag @ Titrate IV .Q0M [facility] Rx#: [id number] Output: Urine 150 35 Other: Weight 110.677 kg 113.6 kg Gen. appearance, calm and comfortable, obese, sedated on propofol with a BMI of 45.8 and the patient is synchronous with mechanical ventilator. Head exam was generally normal. There was no scleral icterus or corneal arcus. Mucous membranes were moist. Neck was supple and without jugular venous distension, thyromegaly, or carotid bruits. Carotids were easily palpable bilaterally. There was no adenopathy. Orogastric and orotracheal tube are both in place Lungs sounds are diminished in lung bases bilaterally Heart sounds are irregular, rate is controlled for now, irregular S1-S2 consistent with atrial fibrillation. No cervical murmurs appreciated. Overall heart sounds are distant. Abdominal exam revealed normal bowel sounds. The abdomen was soft, non-tender, and without masses, organomegaly, or appreciable enlargement of the abdominal aorta. Examination of the extremities revealed diminished pulses in the radial, femoral and pedal pulses. There was no cyanosis, clubbing or edema. Examination of the skin shows a stage III wound in the right lower extremity, lateral leg and the base of the wound is dry clean and intact at this point in time and there is no purulent discharge and there is no surrounding cellulitis. Neurologically the patient sedated and the patient is calm and comfortable. Results - Laboratory Findings CBC and BMP: 08/14/20 05:19 08/14/20 05:19 ABG ABG pH 7.47 (7.35-7.45) H 08/14/20 04:37 ABG pCO2 37 mmHg (35-45) 08/14/20 04:37 ABG pO2 241 mmHg (83-108) H 08/14/20 04:37 ABG O2 Saturation 99.7 % (94-97) H 08/14/20 04:37 PT/INR, D-dimer PT 12.1 sec (9.0-12.0) H 08/13/20 19:58 INR 1.2 (<1.2) H 08/13/20 19:58 D-Dimer 0.81 mg/L FEU (<0.60) H 08/13/20 19:58 Abnormal lab findings: Abnormal Labs 08/13/20 08/13/20 08/13/20 19:46 19:58 19:58 WBC 14.3 H RBC 3.79 L Hgb Hct Neutrophils # 11.5 H PT 12.1 H INR 1.2 H D-Dimer 0.81 H ABG pH ABG pO2 ABG HCO3 ABG Total CO2 ABG O2 Saturation Sodium Potassium Chloride Carbon Dioxide BUN Creatinine Glucose POC Glucose (mg/dL) 331 H Plasma Lactic Acid Jaspreet Calcium Total Bilirubin AST Alkaline Phosphatase Troponin I Total Protein Albumin 08/13/20 08/13/20 08/13/20 19:58 21:35 21:36 WBC RBC Hgb Hct Neutrophils # PT INR D-Dimer ABG pH 7.33 L ABG pO2 65 L ABG HCO3 ABG Total CO2 ABG O2 Saturation 90.3 L Sodium 132 L Potassium Chloride Carbon Dioxide BUN 36 H Creatinine 1.80 H Glucose 318 H POC Glucose (mg/dL) Plasma Lactic Acid Jaspreet 3.6 H* Calcium Total Bilirubin AST Alkaline Phosphatase Troponin I Total Protein Albumin 08/13/20 08/14/20 08/14/20 23:57 01:09 03:32 WBC RBC Hgb Hct Neutrophils # PT INR D-Dimer ABG pH ABG pO2 ABG HCO3 ABG Total CO2 ABG O2 Saturation Sodium Potassium 2.5 L* Chloride 122 H Carbon Dioxide 14 L BUN 21 H Creatinine Glucose 155 H POC Glucose (mg/dL) 379 H Plasma Lactic Acid Jaspreet 2.3 H* Calcium 4.0 L* Total Bilirubin <0.1 L AST Alkaline Phosphatase 32 L Troponin I Total Protein 2.9 L Albumin 1.3 L 08/14/20 08/14/20 08/14/20 04:37 05:19 05:19 WBC 16.3 H RBC 3.56 L Hgb 10.9 L Hct 33.3 L Neutrophils # 13.4 H PT INR D-Dimer ABG pH 7.47 H ABG pO2 241 H ABG HCO3 26 H ABG Total CO2 28 H ABG O2 Saturation 99.7 H Sodium 132 L Potassium Chloride Carbon Dioxide 20 L BUN 40 H Creatinine 2.02 H Glucose 273 H POC Glucose (mg/dL) Plasma Lactic Acid Jaspreet Calcium 8.3 L Total Bilirubin AST 65 H Alkaline Phosphatase Troponin I Total Protein 6.2 L Albumin 3.3 L 08/14/20 08/14/20 08/14/20 05:19 05:19 05:45 WBC RBC Hgb Hct Neutrophils # PT INR D-Dimer ABG pH ABG pO2 ABG HCO3 ABG Total CO2 ABG O2 Saturation Sodium Potassium Chloride Carbon Dioxide BUN Creatinine Glucose POC Glucose (mg/dL) 296 H Plasma Lactic Acid Jaspreet 2.8 H* Calcium Total Bilirubin AST Alkaline Phosphatase Troponin I 0.802 H* Total Protein Albumin 08/14/20 06:38 WBC RBC Hgb Hct Neutrophils # PT INR D-Dimer ABG pH ABG pO2 ABG HCO3 ABG Total CO2 ABG O2 Saturation Sodium Potassium Chloride Carbon Dioxide BUN Creatinine Glucose POC Glucose (mg/dL) 276 H Plasma Lactic Acid Jaspreet Calcium Total Bilirubin AST Alkaline Phosphatase Troponin I Total Protein Albumin - Diagnostic Findings Chest x-ray: image reviewed Assessment and Plan Plan: 1 acute hypoxic respiratory failure/pulmonary edema, currently intubated on a mechanical ventilator. The overall presentation is typical of cardiogenic pul monary edema in combination with wide-complex tachycardia/V. tach 2 sustained V. tach, post cardioversion and the patient's current rhythm is atrial fibrillation with a controlled rate 3 cardiomyopathy with an ejection fraction of less than 20%, likely of a new onset 4 chronic atrial fibrillation maintained on a combination of flecainide, metoprolol and Eliquis on outpatient basis 5 coronary artery disease appears myocardial infarction 6 previous history of DVT 7 hyperlipidemia 8 macular degeneration 9 remote history of CVA 10 acute kidney injury with oligoria, consider cardiorenal syndrome, nephrology is on the case 11 metabolic acidosis secondary to acute kidney injury. 12 COVID-19 infection treated and subsequent recovery back to May 2020 13 stage III right lower extremity wound without any signs of infection or cellulitis Plan Continue vent support and drop the FiO2 down to 50% IV fluids to KVO IV Lasix 40 mg every 12 hours Keep the patient amiodarone drip 0.5 mg/m loading Nephrology consultation Monitor hemodynamics and use pressors if needed Monitor renal function Awaiting the full report of the echocardiogram Obtain ultrasound the kidneys Keep the patient sedated with propofol Cardiology consultation Levemir insulin to be restarted 30 units along with a sliding scale coverage Use IV heparin and hold Eliquis for now Established lines Condition is critical we'll continue to follow.
[2020-08-14] MEDS: METOPROLOL TARTRATE 25 MG TAB PO SCH ×2 (11:38→20:47)
[2020-08-14] MEDS: HEPARIN SOD,PORK IN 0.45% NACL 25,000 UNIT in 0.45% NACL 1 250ML.BAG IV SCH (11:54)
[2020-08-14 12:00] LABS: Amorphous Sediment,Urine Rare /hpf; Appearance,Urine Turbid (Clear); Bacteria,Urine Rare /hpf; Bilirubin,Urine Negative (Negative); Blood,Urine Large (Negative); Color,Urine Light Red; Glucose,Urine (UA) Negative (Negative); Hyaline Casts,Urine 75 /lpf (0-2); Ketones,Urine Negative (Negative); Leukocyte Esterase,Urine Large (Negative); Mucus,Urine Occasional /hpf; Nitrite,Urine Negative (Negative); Protein,Urine 1+ (Negative); RBC,Urine >182 /hpf (0-5); Specific Gravity,Urine 1.011 (1.001-1.035); Squamous Epithelial Cell,Urine 1 /hpf (0-4); Urobilinogen,Urine <2.0 mg/dL (<2.0); WBC,Urine 128 /hpf (0-5)
--- NOTE | 2020-08-14 12:00 | ECHOF ---
Referral Reason:pulm edema MEASUREMENTS -------- HEIGHT: 157.5 cm WEIGHT: 113.4 kg BP: 81/55 IVSd: 1.4 cm (0.6 - 1.1) LVIDd: 4.3 cm (3.9 - 5.3) LVPWd: 1.6 cm (0.6 - 1.1) EDV(Teich): 82 ml IVSs: 1.7 cm LVIDs: 3.8 cm LVPWs: 1.8 cm %IVS Thck: 15 % ESV(Teich): 64 ml EF(Teich): 23 % %FS: 10 % SV(Teich): 19 ml RVIDd: 3.8 cm (< 3.3) LALs A4C: 6.6 cm LAAs A4C: 27.2 cm LAESV A-L A4C: 95 ml LAESV MOD A4C: 85 ml LALs A2C: 6.2 cm LAAs A2C: 27.8 cm LAESV A-L A2C: 106 ml LAESV MOD A2C: 101 ml LAESV(A-L): 104 ml LAESV Index (A-L): 49.48 ml/m Ao Diam: 3.2 cm (2.0 - 3.7) AV Cusp: 1.7 cm (1.5 - 2.6) EPSS: 1.6 cm LVOT Vmax: 0.45 m/s LVOT maxP.80 mmHg AV Vmax: 0.87 m/s AV maxP.01 mmHg TR Vmax: 2.94 m/s TR maxP.50 mmHg RAP: 5.00 mmHg RVSP: 39.50 mmHg MV EF SLOPE: 22.20 mm/s (70 - 150) MV EXCURSION: 12.86 mm (> 18.000) FINDINGS -------- Atrial fibrillation. This was a technically adequate study. The left ventricular size is normal. There is moderate concentric left ventricular hypertrophy. T here is severe global hypokinesis of LV . Overall left ventricular systolic function is severely im paired with, an EF between 20 - 25 %. Mitral Doppler inflow pattern suggests diastolic filling abno rmality {E/E'}. The right ventricle is mild to moderately enlarged. LA is severely dilated >40 ml/m2 The right atrial size is normal. Interatrial and interventricular septum intact. There is no evidence of aortic regurgitation. There is no evidence of aortic stenosis. [id number] mitral regurgitation is present. Moderate tricuspid regurgitation present. There is mild to moderate pulmonary hypertension. The r ight ventricular systolic pressure, as measured by Doppler, is 39.50mmHg. There is no pulmonic regurgitation present. The aortic root size is normal. IVC Not well visulized. There is no pericardial effusion. CONCLUSIONS -------- 1. The left ventricular size is normal. 2. There is moderate concentric left ventricular hypertrophy. 3. There is severe global hypokinesis of LV . 4. Overall left ventricular systolic function is severely impaired with, an EF between 20 - 25 %. 5. Mitral Doppler inflow pattern suggest diastolic filling abnormality {E/E'}. 6. The right ventricle is mild to moderately enlarged. 7. LA is severely dilated >40 ml/m2 8. [id number] mitral regurgitation is present. 9. Moderate tricuspid regurgitation present. 10. There is mild to moderate pulmonary hypertension. 11. The right ventricular systolic pressure, as measured by Doppler, is 39.50mmHg. FLAVORER: Birdie Castillo RDCS
[2020-08-14 12:19] LABS: INR 1.2 (<1.2); Partial Thromboplastin Time 24.4 sec (22.0-30.0); Prothrombin Time 12.1 sec (9.0-12.0)
[2020-08-14 12:33] LABS: Glucose,Whole Blood 236 mg/dL (75-99)
[2020-08-14] MEDS: IPRATROPIUM-ALBUTEROL 3 ML NEB INHALATION SCH ×3 (15:47→19:12)
--- NOTE | 2020-08-14 15:52 | P.PCN ---
Date of Procedure: 08/14/20 Preoperative Diagnosis: Pulmonary edema, respiratory failure Postoperative Diagnosis: Acute pulmonary edema, respiratory failure Procedure(s) Performed: Central line Catheter insertion, arterial line catheter insertion. Anesthesia: local Surgeon: Jarod Hernandez Pathology: other Condition: critical Disposition: ICU Operative Findings: Indication: Hemodynamic monitoring/Intravenous access. A time-out was completed verifying correct patient, procedure, site, positioning, and implant(s) or special equipment if applicable. The patient was placed in a dependent position appropriate for central line placement based on the vein to be cannulated. The patients left shoulder was prepped and draped in sterile fashion. 1% Lidocaine was used to anesthetize the surrounding skin area. A triple lumen 9F Cordis catheter was introduced into the internal jugular vein using Seldinger technique. The catheter was threaded smoothly over the guide wire and appropriate blood return was obtained. Each lumen of the catheter was evacuated of air and flushed with sterile saline. The catheter was then sutured in place to the skin and a sterile dressing applied. Perfusion to the extremity distal to the point of catheter insertion was checked and found to be adequate. The patient tolerated the procedure well and there were no complications. Indication: Hemodynamic monitoring. A time-out was completed verifying correct patient, procedure, site, positioning, and implant(s) or special equipment if applicable. Allens test was performed to ensure adequate perfusion. The patiens left wrist was prepped and draped in sterile fashion. 1% Lidocaine was used to anesthetize the area. An 18G Arrow arterial line was introduced into the radial artery. The catheter was threaded over the guide wire and the needle was removed with appropriate pulsatile blood return. Blood loss was minimal. The catheter was then sutured in place to the skin and a sterile dressing applied. Perfusion to the extremity distal to the point of catheter insertion was checked and found to be adequate. The patient tolerated the procedure well and there were no complications.
--- NOTE | 2020-08-14 16:20 | XR ---
EXAMINATION TYPE: XR chest 1V confirm line [facility] DATE OF EXAM: 08/14/2020 COMPARISON: Chest x-ray dated 11/07/2020 at earlier time HISTORY: Central venous catheter placement TECHNIQUE: Single frontal view of the chest is obtained. FINDINGS: There is been interval placement of a left jugular central venous catheter. Distal tip is coursing in an oblique fashion. No evident pneumothorax or pleural effusion. There is some improvemen t in aeration. IMPRESSION: No evident thorax status post central venous catheter placement. Distal tip of the robert ter may be within the azygos vein.
[2020-08-14 16:44] LABS: Glucose,Whole Blood 125 mg/dL (75-99)
[2020-08-14 16:47] LABS: Glucose,Whole Blood 126 mg/dL (75-99)
[2020-08-14 20:24] LABS: Glucose,Whole Blood 85 mg/dL (75-99)
[2020-08-14] MEDS: CHLORHEXIDINE GLUCONATE 15 ML CUP MUCOUS MEM SCH (20:47)
[2020-08-14 22:17] LABS: Hemoglobin A1C 7.6 % (4.0-6.0)
[2020-08-14 23:58] LABS: Glucose,Whole Blood 87 mg/dL (75-99)
[2020-08-15] MEDS: INSULIN ASPART (NovoLOG) 100 UNIT/ML VIAL SQ SCH ×6 (00:05→20:34)
[2020-08-15 04:09] LABS: Glucose,Whole Blood 100 mg/dL (75-99)
[2020-08-15 04:24] LABS: Basophils # (A) 0.1 k/uL (0-0.2); Basophils % (A) 1 %; Eosinophils # (A) 0.4 k/uL (0-0.7); Eosinophils % (A) 3 %; HCT 31.7 % (34.0-46.0); HGB 10.7 gm/dL (11.4-16.0); Lymphocytes # (A) 1.7 k/uL (1.0-4.8); Lymphocytes % (A) 13 %; MCH 30.3 pg (25.0-35.0); MCHC 33.9 g/dL (31.0-37.0); MCV 89.3 fL (80.0-100.0); Mean Platelet Volume 9.1; Monocytes # (A) 0.7 k/uL (0-1.0); Monocytes % (A) 5 %; Neutrophils # (A) 10.1 k/uL (1.3-7.7); Neutrophils % (A) 77 %; Platelet Count 238 k/uL (150-450); RBC 3.55 m/uL (3.80-5.40); RDW 15.5 % (11.5-15.5); WBC 13.1 k/uL (3.8-10.6)
[2020-08-15 04:32] LABS: INR 1.2 (<1.2); Prothrombin Time 12.3 sec (9.0-12.0)
[2020-08-15 04:47] LABS: Albumin 3.3 g/dL (3.5-5.0); Calcium 8.9 mg/dL (8.4-10.2); Potassium 3.1 mmol/L (3.5-5.1); Total Bilirubin 0.3 mg/dL (0.2-1.3); Total Protein 6.3 g/dL (6.3-8.2)
[2020-08-15] MEDS ORDERED: Potassium Replacement Protocol 1 EACH MISC MISCELLANE PRN (04:55)
[2020-08-15] MEDS: POTASSIUM BICARBONATE/CIT AC 20 MEQ TABLET.EFF NG-TUBE SCH ×2 (05:00→06:00)
[2020-08-15 05:07] LABS: ABG Base Excess 5.9 mmol/L; ABG HCO3 28 mmol/L (21-25); ABG Oxygen Saturation 99.7 % (94-97); ABG PCO2 30 mmHg (35-45); ABG PO2 139 mmHg (83-108); ABG TCO2 29 mmol/L (19-24); Allen Test Performed? Yes
[2020-08-15 05:09] LABS: ABG PH 7.58 (7.35-7.45)
[2020-08-15] MEDS: HEPARIN SOD,PORK IN 0.45% NACL 25,000 UNIT in 0.45% NACL 1 250ML.BAG IV SCH (06:54)
[2020-08-15] MEDS: INSULIN DETEMIR (LEVEMIR) 100 UNIT/ML SYR SQ SCH ×2 (07:00→10:44)
[2020-08-15] MEDS: IPRATROPIUM-ALBUTEROL 3 ML NEB INHALATION SCH ×4 (07:39→20:45)
[2020-08-15 07:52] LABS: Glucose,Whole Blood 130 mg/dL (75-99)
[2020-08-15] MEDS: FUROSEMIDE 10 MG/ML 4 ML VIAL IV SCH ×2 (07:56→20:34)
[2020-08-15] MEDS: PANTOPRAZOLE 40 MG/10 ML VIAL IVP SCH (07:56)
[2020-08-15] MEDS: METOPROLOL TARTRATE 25 MG TAB PO SCH (07:56)
--- NOTE | 2020-08-15 08:12 | XR ---
EXAMINATION TYPE: XR chest 1V portable DATE OF EXAM: 08/15/2020 COMPARISON: Chest x-ray 08/14/2020 HISTORY: Fluid overload TECHNIQUE: Single frontal view of the chest is obtained. FINDINGS: The left jugular central venous catheter shows a somewhat cephalad course, tip may be with in the azygos vein as noted on prior exam. Endotracheal tube, orogastric tube are overlying appropria te positions. No evident pneumothorax. Bilateral airspace disease persists. Heart appears enlarged al though patient is rotated. Atherosclerotic vascular calcifications are noted. There are overlying escobar ds. IMPRESSION: Bilateral airspace disease is again noted. Central venous catheter as described. Suspect cardiomegaly.
--- NOTE | 2020-08-15 08:15 | P.PN ---
Subjective Progress Note Date: 08/15/20 Principal diagnosis: Respiratory distress This is a continuing progress note on a 74-year-old white female essentially admitted for respiratory failure and tachyarrhythmia. The patient is now being stabilized on mechanical ventilation and improving. Objective - Vital Signs Vital signs: Vital Signs Temp 98.5 F 08/15/20 04:00 Pulse 83 08/15/20 08:00 Resp 26 H 08/15/20 08:00 BP 99/59 08/15/20 07:00 Pulse Ox 100 08/15/20 08:00 Intake & Output 08/14/20 08/15/20 08/15/20 18:59 06:59 18:59 Intake Total 566.968 5490.776 80 Output Total 775 1645 110 Balance -115.000 -584.224 -30 Weight 113.6 kg 112.1 kg Intake: IV 120 120 20 0.9 120 120 20 Intake, IV Titration 450.000 590.776 Amount Amiodarone 450 mg In 250 Dextrose 5% in Water 250 ml @ 0.5 MG/MIN 16.667 mls/hr IV .Q15H HARIKA Rx#: [id number] Heparin Sod,Pork in 0.45% 215.863 NaCl 25,000 unit In 0.45 % NaCl 1 250ml.bag @ 8. 803 UNITS/KG/HR 10 mls/hr IV .Q24H HARIKA Rx#: [id number] propofoL 1,000 mg In 200.000 374.913 Empty Bag 1 bag @ Titrate IV .Q0M HARIKA Rx#: [id number] Tube Feeding 60 260 60 Other 30 90 Output: Urine 775 1645 110 ABP, PAP, CO, CI - Last Documented Arterial Blood Pressure 131/57 - Constitutional General appearance: Present: obese - EENT Eyes: Absent: abnormal pupil - Respiratory Respiratory: bilateral: diminished - Cardiovascular Rhythm: regular Heart sounds: normal: S1, S2 Abnormal Heart Sounds: Absent: S3 Gallop - Gastrointestinal General gastrointestinal: Present: soft. Absent: tenderness - Neurologic Neurologic: Absent: CNII-XII intact - Labs CBC & Chem 7: 08/15/20 04:00 08/15/20 04:00 Labs: Abnormal Lab Results - Last 24 Hours (Table) 08/14/20 08/14/20 08/14/20 Range/Units 05:19 10:05 11:25 WBC (3.8-10.6) k/uL RBC (3.80-5.40) m/uL Hgb (11.4-16.0) gm/dL Hct (34.0-46.0) % Neutrophils # (1.3-7.7) k/uL PT (9.0-12.0) sec INR (<1.2) APTT (22.0-30.0) sec ABG pH (7.35-7.45) ABG pCO2 (35-45) mmHg ABG pO2 (83-108) mmHg ABG HCO3 (21-25) mmol/L ABG Total CO2 (19-24) mmol/L ABG O2 Saturation (94-97) % Sodium (137-145) mmol/L Potassium (3.5-5.1) mmol/L BUN (7-17) mg/dL Creatinine (0.52-1.04) mg/dL POC Glucose (mg/dL) 228 H (75-99) mg/dL Hemoglobin A1c (4.0-6.0) % AST (14-36) U/L Troponin I 0.802 H* (0.000-0.034) ng/mL Albumin (3.5-5.0) g/dL Urine Appearance Turbid H (Clear) Urine Protein 1+ H (Negative) Urine Blood Large H (Negative) Ur Leukocyte Esterase Large H (Negative) Urine RBC >182 H (0-5) /hpf Urine WBC 128 H (0-5) /hpf Urine WBC Clumps Few H (None) /hpf Amorphous Sediment Rare H (None) /hpf Urine Bacteria Rare H (None) /hpf Hyaline Casts 75 H (0-2) /lpf Urine Mucus Occasional H (None) /hpf 08/14/20 08/14/20 08/14/20 Range/Units 11:30 11:30 12:32 WBC (3.8-10.6) k/uL RBC (3.80-5.40) m/uL Hgb (11.4-16.0) gm/dL Hct (34.0-46.0) % Neutrophils # (1.3-7.7) k/uL PT 12.1 H (9.0-12.0) sec INR 1.2 H (<1.2) APTT (22.0-30.0) sec ABG pH (7.35-7.45) ABG pCO2 (35-45) mmHg ABG pO2 (83-108) mmHg ABG HCO3 (21-25) mmol/L ABG Total CO2 (19-24) mmol/L ABG O2 Saturation (94-97) % Sodium (137-145) mmol/L Potassium (3.5-5.1) mmol/L BUN (7-17) mg/dL Creatinine (0.52-1.04) mg/dL POC Glucose (mg/dL) 236 H (75-99) mg/dL Hemoglobin A1c 7.6 H (4.0-6.0) % AST (14-36) U/L Troponin I (0.000-0.034) ng/mL Albumin (3.5-5.0) g/dL Urine Appearance (Clear) Urine Protein (Negative) Urine Blood (Negative) Ur Leukocyte Esterase (Negative) Urine RBC (0-5) /hpf Urine WBC (0-5) /hpf Urine WBC Clumps (None) /hpf Amorphous Sediment (None) /hpf Urine Bacteria (None) /hpf Hyaline Casts (0-2) /lpf Urine Mucus (None) /hpf 08/14/20 08/14/20 08/14/20 Range/Units 16:42 16:44 16:52 WBC (3.8-10.6) k/uL RBC (3.80-5.40) m/uL Hgb (11.4-16.0) gm/dL Hct (34.0-46.0) % Neutrophils # (1.3-7.7) k/uL PT (9.0-12.0) sec INR (<1.2) APTT (22.0-30.0) sec ABG pH (7.35-7.45) ABG pCO2 (35-45) mmHg ABG pO2 (83-108) mmHg ABG HCO3 (21-25) mmol/L ABG Total CO2 (19-24) mmol/L ABG O2 Saturation (94-97) % Sodium (137-145) mmol/L Potassium (3.5-5.1) mmol/L BUN (7-17) mg/dL Creatinine (0.52-1.04) mg/dL POC Glucose (mg/dL) 125 H 126 H (75-99) mg/dL Hemoglobin A1c (4.0-6.0) % AST (14-36) U/L Troponin I 0.886 H* (0.000-0.034) ng/mL Albumin (3.5-5.0) g/dL Urine Appearance (Clear) Urine Protein (Negative) Urine Blood (Negative) Ur Leukocyte Esterase (Negative) Urine RBC (0-5) /hpf Urine WBC (0-5) /hpf Urine WBC Clumps (None) /hpf Amorphous Sediment (None) /hpf Urine Bacteria (None) /hpf Hyaline Casts (0-2) /lpf Urine Mucus (None) /hpf 08/14/20 08/14/20 08/14/20 Range/Units 18:00 22:13 23:55 WBC (3.8-10.6) k/uL RBC (3.80-5.40) m/uL Hgb (11.4-16.0) gm/dL Hct (34.0-46.0) % Neutrophils # (1.3-7.7) k/uL PT (9.0-12.0) sec INR (<1.2) APTT 40.8 H 51.8 H (22.0-30.0) sec ABG pH (7.35-7.45) ABG pCO2 (35-45) mmHg ABG pO2 (83-108) mmHg ABG HCO3 (21-25) mmol/L ABG Total CO2 (19-24) mmol/L ABG O2 Saturation (94-97) % Sodium (137-145) mmol/L Potassium (3.5-5.1) mmol/L BUN (7-17) mg/dL Creatinine (0.52-1.04) mg/dL POC Glucose (mg/dL) (75-99) mg/dL Hemoglobin A1c (4.0-6.0) % AST (14-36) U/L Troponin I 0.664 H* (0.000-0.034) ng/mL Albumin (3.5-5.0) g/dL Urine Appearance (Clear) Urine Protein (Negative) Urine Blood (Negative) Ur Leukocyte Esterase (Negative) Urine RBC (0-5) /hpf Urine WBC (0-5) /hpf Urine WBC Clumps (None) /hpf Amorphous Sediment (None) /hpf Urine Bacteria (None) /hpf Hyaline Casts (0-2) /lpf Urine Mucus (None) /hpf 08/15/20 08/15/20 08/15/20 Range/Units 04:00 04:00 04:00 WBC 13.1 H (3.8-10.6) k/uL RBC 3.55 L (3.80-5.40) m/uL Hgb 10.7 L (11.4-16.0) gm/dL Hct 31.7 L (34.0-46.0) % Neutrophils # 10.1 H (1.3-7.7) k/uL PT 12.3 H (9.0-12.0) sec INR 1.2 H (<1.2) APTT (22.0-30.0) sec ABG pH (7.35-7.45) ABG pCO2 (35-45) mmHg ABG pO2 (83-108) mmHg ABG HCO3 (21-25) mmol/L ABG Total CO2 (19-24) mmol/L ABG O2 Saturation (94-97) % Sodium 134 L (137-145) mmol/L Potassium 3.1 L (3.5-5.1) mmol/L BUN 36 H (7-17) mg/dL Creatinine 1.80 H (0.52-1.04) mg/dL POC Glucose (mg/dL) (75-99) mg/dL Hemoglobin A1c (4.0-6.0) % AST 39 H (14-36) U/L Troponin I (0.000-0.034) ng/mL Albumin 3.3 L (3.5-5.0) g/dL Urine Appearance (Clear) Urine Protein (Negative) Urine Blood (Negative) Ur Leukocyte Esterase (Negative) Urine RBC (0-5) /hpf Urine WBC (0-5) /hpf Urine WBC Clumps (None) /hpf Amorphous Sediment (None) /hpf Urine Bacteria (None) /hpf Hyaline Casts (0-2) /lpf Urine Mucus (None) /hpf 08/15/20 08/15/20 08/15/20 Range/Units 04:00 04:00 04:08 WBC (3.8-10.6) k/uL RBC (3.80-5.40) m/uL Hgb (11.4-16.0) gm/dL Hct (34.0-46.0) % Neutrophils # (1.3-7.7) k/uL PT (9.0-12.0) sec INR (<1.2) APTT 59.7 H (22.0-30.0) sec ABG pH (7.35-7.45) ABG pCO2 (35-45) mmHg ABG pO2 (83-108) mmHg ABG HCO3 (21-25) mmol/L ABG Total CO2 (19-24) mmol/L ABG O2 Saturation (94-97) % Sodium (137-145) mmol/L Potassium (3.5-5.1) mmol/L BUN (7-17) mg/dL Creatinine (0.52-1.04) mg/dL POC Glucose (mg/dL) 100 H (75-99) mg/dL Hemoglobin A1c (4.0-6.0) % AST (14-36) U/L Troponin I 0.498 H* (0.000-0.034) ng/mL Albumin (3.5-5.0) g/dL Urine Appearance (Clear) Urine Protein (Negative) Urine Blood (Negative) Ur Leukocyte Esterase (Negative) Urine RBC (0-5) /hpf Urine WBC (0-5) /hpf Urine WBC Clumps (None) /hpf Amorphous Sediment (None) /hpf Urine Bacteria (None) /hpf Hyaline Casts (0-2) /lpf Urine Mucus (None) /hpf 08/15/20 08/15/20 Range/Units 05:03 07:50 WBC (3.8-10.6) k/uL RBC (3.80-5.40) m/uL Hgb (11.4-16.0) gm/dL Hct (34.0-46.0) % Neutrophils # (1.3-7.7) k/uL PT (9.0-12.0) sec INR (<1.2) APTT (22.0-30.0) sec ABG pH 7.58 H* (7.35-7.45) ABG pCO2 30 L (35-45) mmHg ABG pO2 139 H (83-108) mmHg ABG HCO3 28 H (21-25) mmol/L ABG Total CO2 29 H (19-24) mmol/L ABG O2 Saturation 99.7 H (94-97) % Sodium (137-145) mmol/L Potassium (3.5-5.1) mmol/L BUN (7-17) mg/dL Creatinine (0.52-1.04) mg/dL POC Glucose (mg/dL) 130 H (75-99) mg/dL Hemoglobin A1c (4.0-6.0) % AST (14-36) U/L Troponin I (0.000-0.034) ng/mL Albumin (3.5-5.0) g/dL Urine Appearance (Clear) Urine Protein (Negative) Urine Blood (Negative) Ur Leukocyte Esterase (Negative) Urine RBC (0-5) /hpf Urine WBC (0-5) /hpf Urine WBC Clumps (None) /hpf Amorphous Sediment (None) /hpf Urine Bacteria (None) /hpf Hyaline Casts (0-2) /lpf Urine Mucus (None) /hpf Microbiology - Last 24 Hours (Table) 08/13/20 21:35 Blood Culture - Preliminary Blood No Growth after 24 hours 08/14/20 07:30 Gram Stain - Preliminary Sputum Sputum Culture - Preliminary Assessment and Plan (1) Tachyarrhythmia Current Visit: Yes Status: Acute Code(s): R00.0 - TACHYCARDIA, UNSPECIFIED SNOMED Code(s): 8744177 (2) Diabetes Current Visit: No Status: Acute Code(s): E11.9 - TYPE 2 DIABETES MELLITUS WITHOUT COMPLICATIONS SNOMED Code(s): 80140639 (3) Atrial fibrillation Current Visit: Yes Status: Acute Code(s): I48.91 - UNSPECIFIED ATRIAL FIBRILLATION SNOMED Code(s): 55948707 (4) Pulmonary edema Current Visit: Yes Status: Acute Code(s): J81.1 - CHRONIC PULMONARY EDEMA SNOMED Code(s): 23399047 (5) Leg ulcer, left Current Visit: Yes Status: Acute Code(s): L97.929 - NON-PRS CHRONIC ULC UNSP PRT OF L LOW LEG W UNSP SEVERITY SNOMED Code(s): 07331016 Plan: Appropriate diuresis with controlled tachyarrhythmia. The patient is on appropriate ventilatory support. We'll continue to follow from a medical perspective. Prognosis is guarded secondary to multiple comorbidities. Appreciate multiple consultants input.
[2020-08-15] MEDS ORDERED: APIXABAN 2.5 MG TABLET PO SCH (09:00)
--- NOTE | 2020-08-15 09:02 | P.PN ---
Subjective Progress Note Date: 08/15/20 74-year-old female patient, known history of cardiac disease including CAD, previous CT, previous history of chronic atrial fibrillation, diabetes mellitus whereas been also infected and recovered from COVID-19 back in May 2020 and she is currently being treated for a stage III right lower extremity wound being treated at [facility] and the patient was discharged recently home. The patient was brought into the hospital as the patient was experiencing some palpitations at home. EMS came to the scene and the patient was found to have a wide complex tachycardia consistent with V. tach. In the emergency department, the patient was given a shock and the patient converted to atrial fibrillation with a controlled rate. She was in acute pulmonary edema. She was hypoxic. She was unresponsive. At that point the patient was intubated and placed on a mechanical ventilator. She is currently sedated with propofol and she is calm and comfortable. Probable resolving at 20 mg/kg per minute. She is on assist control mode at the rate of 26 and a tidal volume of 400 and FiO2 of 70% with a PEEP of 8. Peak air pressures 34 static pressure of 27. FiO2 was dropped down to 50%. Chest x-ray is showing some improvement in the bilateral pulmonary edema compared to yesterday. ET tube is high in the trachea and is to be repositioned. As stated, the patient is currently on no pressors. The morning blood gases showed a pH of 7.47 with a pCO2 of 37 and pO2 of 241 and this was on FiO2 of 100%. The white cell count at 16.3. The patient's lactic acid level is at 2.8. Creatinine was up to 2.0 to consistent with an acute kidney injury. Her troponin was 0.80. The patient's proBNP level is 3940. Rest of the blood work and x-rays shows a potassium level of 5.0 with a creatinine of 2.02 and a serum bicarb of 20. Bedside echocardiogram was done and the preliminary report is consistent with severe cardiomyopathy with an ejection fraction of less than 20%. On today's evaluation of 08/15/2020, the patient is being seen for a follow-up. As stated earlier, the patient has history of cardiac disease, COPD and chronic A. fib and the patient presented with wide complex tachycardia/V. tach. She is currently intubated on a mechanical ventilator. Intubation was done because of an acute pulmonary edema. On her echocardiogram, the patient was found to have an ejection fraction of 20-25% and was consistent with systolic heart failure. She has some diastolic filling abnormality. She also has no evidence of aortic disease, moderate to severe mitral regurgitation, [id number] pulmonary hypertension with a PA pressure of 39. The patient currently is in a Hx fibril lation rhythm. Amiodarone is still running at 0.5 mg per minute and this needs to be switched to oral maintenance. She is on IV heparin for now as the patient was having some issues with acute kidney injury and lines had to be established. Yesterday, triple lumen catheter was inserted in the left IJ. The CVP currently is at 11. The chest x-ray from today there is evidence of cardiomegaly, bilateral pleural effusions, interstitial edema, triple lumen cath in the left IJ, ET tube is in a good location as she was pushed and the lip line of 23. OG tube is also in place. The patient remains on mechanical ventilator. This morning she is on a assist-control of 16 which was dropped down with a tidal volume of 400 and FiO2 of 50% with a PEEP of 6. Morning blood gases that was done on a PEEP of 8 showed a pH of 7.58 with a pCO2 of 30 and pO2 of 139. This was also done at the rate of 26 the patient is still being diuresed with IV Lasix. She is receiving Lasix 40 mg IV every 12 hours. Creatinine is down to 1.8. Urine output is in order of 100 mL an hour and the neck fluid balance over the past 24 hours has been -6 99 mL. Ultrasound the kidney was done and it showed no evidence of any hydronephrosis. She is afebrile. Currently she is on no pressors. She is sedated with propofol which is running at 50 mcg/kg per minute. Objective - Vital Signs Vital signs: Vital Signs Temp 98.5 F 08/15/20 04:00 Pulse 83 08/15/20 08:00 Resp 26 H 08/15/20 08:00 BP 99/59 08/15/20 07:00 Pulse Ox 100 08/15/20 08:00 Intake & Output 08/14/20 08/15/20 08/15/20 18:59 06:59 18:59 Intake Total 189.416 6886.776 80 Output Total 775 1645 110 Balance -115.000 -584.224 -30 Weight 113.6 kg 112.1 kg Intake: IV 120 120 20 0.9 120 120 20 Intake, IV Titration 450.000 590.776 Amount Amiodarone 450 mg In 250 Dextrose 5% in Water 250 ml @ 0.5 MG/MIN 16.667 mls/hr IV .Q15H HARIKA Rx#: [id number] Heparin Sod,Pork in 0.45% 215.863 NaCl 25,000 unit In 0.45 % NaCl 1 250ml.bag @ 8. 803 UNITS/KG/HR 10 mls/hr IV .Q24H HARIKA Rx#: [id number] propofoL 1,000 mg In 200.000 374.913 Empty Bag 1 bag @ Titrate IV .Q0M HARIKA Rx#: [id number] Tube Feeding 60 260 60 Other 30 90 Output: Urine 775 1645 110 ABP, PAP, CO, CI - Last Documented Arterial Blood Pressure 131/57 - Exam Gen. appearance, calm and comfortable, obese, sedated on propofol with a BMI of 45.8 and the patient is synchronous with mechanical ventilator. Head exam was generally normal. There was no scleral icterus or corneal arcus. Mucous membranes were moist. Neck was supple and without jugular venous distension, thyromegaly, or carotid bruits. Carotids were easily palpable bilaterally. There was no adenopathy. Orogastric and orotracheal tube are both in place Lungs sounds are diminished in lung bases bilaterally Heart sounds are irregular, rate is controlled for now, irregular S1-S2 consistent with atrial fibrillation. No cervical murmurs appreciated. Overall heart sounds are distant. Abdominal exam revealed normal bowel sounds. The abdomen was soft, non-tender, and without masses, organomegaly, or appreciable enlargement of the abdominal aorta. Examination of the extremities revealed diminished pulses in the radial, femoral and pedal pulses. There was no cyanosis, clubbing or edema. Examination of the skin shows a stage III wound in the right lower extremity, lateral leg and the base of the wound is dry clean and intact at this point in time and there is no purulent discharge and there is no surrounding cellulitis. Neurologically the patient sedated and the patient is calm and comfortable. - Labs CBC & Chem 7: 08/15/20 04:00 08/15/20 04:00 Labs: Abnormal Lab Results - Last 24 Hours (Table) 08/14/20 08/14/20 08/14/20 Range/Units 10:05 11:25 11:30 WBC (3.8-10.6) k/uL RBC (3.80-5.40) m/uL Hgb (11.4-16.0) gm/dL Hct (34.0-46.0) % Neutrophils # (1.3-7.7) k/uL PT (9.0-12.0) sec INR (<1.2) APTT (22.0-30.0) sec ABG pH (7.35-7.45) ABG pCO2 (35-45) mmHg ABG pO2 (83-108) mmHg ABG HCO3 (21-25) mmol/L ABG Total CO2 (19-24) mmol/L ABG O2 Saturation (94-97) % Sodium (137-145) mmol/L Potassium (3.5-5.1) mmol/L BUN (7-17) mg/dL Creatinine (0.52-1.04) mg/dL POC Glucose (mg/dL) 228 H (75-99) mg/dL Hemoglobin A1c 7.6 H (4.0-6.0) % AST (14-36) U/L Troponin I (0.000-0.034) ng/mL Albumin (3.5-5.0) g/dL Urine Appearance Turbid H (Clear) Urine Protein 1+ H (Negative) Urine Blood Large H (Negative) Ur Leukocyte Esterase Large H (Negative) Urine RBC >182 H (0-5) /hpf Urine WBC 128 H (0-5) /hpf Urine WBC Clumps Few H (None) /hpf Amorphous Sediment Rare H (None) /hpf Urine Bacteria Rare H (None) /hpf Hyaline Casts 75 H (0-2) /lpf Urine Mucus Occasional H (None) /hpf 08/14/20 08/14/20 08/14/20 Range/Units 11:30 12:32 16:42 WBC (3.8-10.6) k/uL RBC (3.80-5.40) m/uL Hgb (11.4-16.0) gm/dL Hct (34.0-46.0) % Neutrophils # (1.3-7.7) k/uL PT 12.1 H (9.0-12.0) sec INR 1.2 H (<1.2) APTT (22.0-30.0) sec ABG pH (7.35-7.45) ABG pCO2 (35-45) mmHg ABG pO2 (83-108) mmHg ABG HCO3 (21-25) mmol/L ABG Total CO2 (19-24) mmol/L ABG O2 Saturation (94-97) % Sodium (137-145) mmol/L Potassium (3.5-5.1) mmol/L BUN (7-17) mg/dL Creatinine (0.52-1.04) mg/dL POC Glucose (mg/dL) 236 H 125 H (75-99) mg/dL Hemoglobin A1c (4.0-6.0) % AST (14-36) U/L Troponin I (0.000-0.034) ng/mL Albumin (3.5-5.0) g/dL Urine Appearance (Clear) Urine Protein (Negative) Urine Blood (Negative) Ur Leukocyte Esterase (Negative) Urine RBC (0-5) /hpf Urine WBC (0-5) /hpf Urine WBC Clumps (None) /hpf Amorphous Sediment (None) /hpf Urine Bacteria (None) /hpf Hyaline Casts (0-2) /lpf Urine Mucus (None) /hpf 08/14/20 08/14/20 08/14/20 Range/Units 16:44 16:52 18:00 WBC (3.8-10.6) k/uL RBC (3.80-5.40) m/uL Hgb (11.4-16.0) gm/dL Hct (34.0-46.0) % Neutrophils # (1.3-7.7) k/uL PT (9.0-12.0) sec INR (<1.2) APTT 40.8 H (22.0-30.0) sec ABG pH (7.35-7.45) ABG pCO2 (35-45) mmHg ABG pO2 (83-108) mmHg ABG HCO3 (21-25) mmol/L ABG Total CO2 (19-24) mmol/L ABG O2 Saturation (94-97) % Sodium (137-145) mmol/L Potassium (3.5-5.1) mmol/L BUN (7-17) mg/dL Creatinine (0.52-1.04) mg/dL POC Glucose (mg/dL) 126 H (75-99) mg/dL Hemoglobin A1c (4.0-6.0) % AST (14-36) U/L Troponin I 0.886 H* (0.000-0.034) ng/mL Albumin (3.5-5.0) g/dL Urine Appearance (Clear) Urine Protein (Negative) Urine Blood (Negative) Ur Leukocyte Esterase (Negative) Urine RBC (0-5) /hpf Urine WBC (0-5) /hpf Urine WBC Clumps (None) /hpf Amorphous Sediment (None) /hpf Urine Bacteria (None) /hpf Hyaline Casts (0-2) /lpf Urine Mucus (None) /hpf 08/14/20 08/14/20 08/15/20 Range/Units 22:13 23:55 04:00 WBC 13.1 H (3.8-10.6) k/uL RBC 3.55 L (3.80-5.40) m/uL Hgb 10.7 L (11.4-16.0) gm/dL Hct 31.7 L (34.0-46.0) % Neutrophils # 10.1 H (1.3-7.7) k/uL PT (9.0-12.0) sec INR (<1.2) APTT 51.8 H (22.0-30.0) sec ABG pH (7.35-7.45) ABG pCO2 (35-45) mmHg ABG pO2 (83-108) mmHg ABG HCO3 (21-25) mmol/L ABG Total CO2 (19-24) mmol/L ABG O2 Saturation (94-97) % Sodium (137-145) mmol/L Potassium (3.5-5.1) mmol/L BUN (7-17) mg/dL Creatinine (0.52-1.04) mg/dL POC Glucose (mg/dL) (75-99) mg/dL Hemoglobin A1c (4.0-6.0) % AST (14-36) U/L Troponin I 0.664 H* (0.000-0.034) ng/mL Albumin (3.5-5.0) g/dL Urine Appearance (Clear) Urine Protein (Negative) Urine Blood (Negative) Ur Leukocyte Esterase (Negative) Urine RBC (0-5) /hpf Urine WBC (0-5) /hpf Urine WBC Clumps (None) /hpf Amorphous Sediment (None) /hpf Urine Bacteria (None) /hpf Hyaline Casts (0-2) /lpf Urine Mucus (None) /hpf 08/15/20 08/15/20 08/15/20 Range/Units 04:00 04:00 04:00 WBC (3.8-10.6) k/uL RBC (3.80-5.40) m/uL Hgb (11.4-16.0) gm/dL Hct (34.0-46.0) % Neutrophils # (1.3-7.7) k/uL PT 12.3 H (9.0-12.0) sec INR 1.2 H (<1.2) APTT (22.0-30.0) sec ABG pH (7.35-7.45) ABG pCO2 (35-45) mmHg ABG pO2 (83-108) mmHg ABG HCO3 (21-25) mmol/L ABG Total CO2 (19-24) mmol/L ABG O2 Saturation (94-97) % Sodium 134 L (137-145) mmol/L Potassium 3.1 L (3.5-5.1) mmol/L BUN 36 H (7-17) mg/dL Creatinine 1.80 H (0.52-1.04) mg/dL POC Glucose (mg/dL) (75-99) mg/dL Hemoglobin A1c (4.0-6.0) % AST 39 H (14-36) U/L Troponin I 0.498 H* (0.000-0.034) ng/mL Albumin 3.3 L (3.5-5.0) g/dL Urine Appearance (Clear) Urine Protein (Negative) Urine Blood (Negative) Ur Leukocyte Esterase (Negative) Urine RBC (0-5) /hpf Urine WBC (0-5) /hpf Urine WBC Clumps (None) /hpf Amorphous Sediment (None) /hpf Urine Bacteria (None) /hpf Hyaline Casts (0-2) /lpf Urine Mucus (None) /hpf 08/15/20 08/15/20 08/15/20 Range/Units 04:00 04:08 05:03 WBC (3.8-10.6) k/uL RBC (3.80-5.40) m/uL Hgb (11.4-16.0) gm/dL Hct (34.0-46.0) % Neutrophils # (1.3-7.7) k/uL PT (9.0-12.0) sec INR (<1.2) APTT 59.7 H (22.0-30.0) sec ABG pH 7.58 H* (7.35-7.45) ABG pCO2 30 L (35-45) mmHg ABG pO2 139 H (83-108) mmHg ABG HCO3 28 H (21-25) mmol/L ABG Total CO2 29 H (19-24) mmol/L ABG O2 Saturation 99.7 H (94-97) % Sodium (137-145) mmol/L Potassium (3.5-5.1) mmol/L BUN (7-17) mg/dL Creatinine (0.52-1.04) mg/dL POC Glucose (mg/dL) 100 H (75-99) mg/dL Hemoglobin A1c (4.0-6.0) % AST (14-36) U/L Troponin I (0.000-0.034) ng/mL Albumin (3.5-5.0) g/dL Urine Appearance (Clear) Urine Protein (Negative) Urine Blood (Negative) Ur Leukocyte Esterase (Negative) Urine RBC (0-5) /hpf Urine WBC (0-5) /hpf Urine WBC Clumps (None) /hpf Amorphous Sediment (None) /hpf Urine Bacteria (None) /hpf Hyaline Casts (0-2) /lpf Urine Mucus (None) /hpf 08/15/20 Range/Units 07:50 WBC (3.8-10.6) k/uL RBC (3.80-5.40) m/uL Hgb (11.4-16.0) gm/dL Hct (34.0-46.0) % Neutrophils # (1.3-7.7) k/uL PT (9.0-12.0) sec INR (<1.2) APTT (22.0-30.0) sec ABG pH (7.35-7.45) ABG pCO2 (35-45) mmHg ABG pO2 (83-108) mmHg ABG HCO3 (21-25) mmol/L ABG Total CO2 (19-24) mmol/L ABG O2 Saturation (94-97) % Sodium (137-145) mmol/L Potassium (3.5-5.1) mmol/L BUN (7-17) mg/dL Creatinine (0.52-1.04) mg/dL POC Glucose (mg/dL) 130 H (75-99) mg/dL Hemoglobin A1c (4.0-6.0) % AST (14-36) U/L Troponin I (0.000-0.034) ng/mL Albumin (3.5-5.0) g/dL Urine Appearance (Clear) Urine Protein (Negative) Urine Blood (Negative) Ur Leukocyte Esterase (Negative) Urine RBC (0-5) /hpf Urine WBC (0-5) /hpf Urine WBC Clumps (None) /hpf Amorphous Sediment (None) /hpf Urine Bacteria (None) /hpf Hyaline Casts (0-2) /lpf Urine Mucus (None) /hpf Microbiology - Last 24 Hours (Table) 08/13/20 21:35 Blood Culture - Preliminary Blood No Growth after 24 hours 08/14/20 07:30 Gram Stain - Preliminary Sputum Sputum Culture - Preliminary Assessment and Plan Plan: 1 acute hypoxic respiratory failure/pulmonary edema, currently intubated on a mechanical ventilator. The overall presentation is typical of cardiogenic pulmonary edema in combination with wide-complex tachycardia/V. tach. follow-up blood gases and chest x-ray was noted from today. There is improvement in oxygenation and the patient's FiO2 and a PEEP has been weaned down to lower levels. 2 sustained V. tach, post cardioversion and the patient's current rhythm is atrial fibrillation with a controlled rate, the patient remains on amiodarone drip for now 3 cardiomyopathy with an ejection fraction of less than 20%-5% along with moderate to severe mitral regurgitation, likely of a new onset 4 chronic atrial fibrillation maintained on a combination of flecainide, metoprolol and Eliquis on outpatient basis 5 coronary artery disease appears myocardial infarction 6 previous history of DVT 7 hyperlipidemia 8 macular degeneration 9 remote history of CVA 10 acute kidney injury with oligoria, consider cardiorenal syndrome, nephrology is on the case, creatinine is improving 11 metabolic acidosis secondary to acute kidney injury. 12 COVID-19 infection treated and subsequent recovery back to May 2020 13 stage III right lower extremity wound without any signs of infection or cellulitis 14 suspected UTI Plan Continue vent support and drop the FiO2 down to 40%, PEEP is going to be dropped down to 5 IV fluids to KVO Continue IV Lasix 40 mg every 12 hours I'm going to switch this patient oral amiodarone 400 mg 2 times a day Stop the IV heparin and switch this patient to Eliquis 2.5 mg by mouth twice a day Keep the patient sedated with propofol the dose to a lower degree of sedation and assess the patient's underlying mental status Cardiology consultation Levemir insulin dose to be dropped down to 10 units daily Start IV Rocephin 1 g every 24 hours Ration is still critical. We'll continue to follow. Make further recommendations regarding further weaning and this will largely depend on her overall hemodynamic status. Overall condition is more stable compared to yesterday. Condition is critical we'll continue to follow. Critically care evaluation done and more than 30 minutes. Time with Patient: Greater than 30
[2020-08-15] MEDS: CHLORHEXIDINE GLUCONATE 15 ML CUP MUCOUS MEM SCH (09:24)
[2020-08-15] MEDS: AMIODARONE 200 MG TAB PO SCH ×2 (09:27→20:34)
[2020-08-15] MEDS ORDERED: METOPROLOL SUCCINATE (ER) 25 MG TAB.ER.24H PO SCH (09:30)
[2020-08-15] MEDS: SPIRONOLACTONE 25 MG TAB PO SCH (09:51)
[2020-08-15] MEDS: lisinopriL 5 MG TAB PO SCH (09:51)
--- NOTE | 2020-08-15 10:06 | P.PN ---
Subjective Patient is seen in follow for acute kidney injury. Renal function better today. Maintain on IV Lasix. Nonoliguric. Intubated. Receiving tube feeding. Vital signs are stable. HEENT: Intubated. LUNGS: Breath sounds decreased. HEART: Rate and Rhythm are regular. ABDOMEN: Soft, no distention. EXTREMITITES: Trace edema. Objective - Vital Signs Vital signs: Vital Signs Temp 98.5 F 08/15/20 04:00 Pulse 90 08/15/20 09:00 Resp 26 H 08/15/20 09:00 BP 99/59 08/15/20 07:00 Pulse Ox 99 08/15/20 09:00 Intake & Output 08/14/20 08/15/20 08/15/20 18:59 06:59 18:59 Intake Total 569.205 9955.776 202.705 Output Total 775 1645 260 Balance -115.000 -584.224 -57.295 Weight 113.6 kg 112.1 kg Intake: IV 120 120 30 0.9 120 120 30 Intake, IV Titration 450.000 590.776 82.705 Amount Amiodarone 450 mg In 250 Dextrose 5% in Water 250 ml @ 0.5 MG/MIN 16.667 mls/hr IV .Q15H [facility] Rx#: [id number] Heparin Sod,Pork in 0.45% 215.863 NaCl 25,000 unit In 0.45 % NaCl 1 250ml.bag @ 8. 803 UNITS/KG/HR 10 mls/hr IV .Q24H [facility] Rx#: [id number] propofoL 1,000 mg In 200.000 374.913 82.705 Empty Bag 1 bag @ Titrate IV .Q0M [facility] Rx#: [id number] Tube Feeding 60 260 90 Other 30 90 Output: Urine 775 1645 260 ABP, PAP, CO, CI - Last Documented Arterial Blood Pressure 135/65 - Labs CBC & Chem 7: 08/15/20 04:00 08/15/20 09:20 Labs: Abnormal Lab Results - Last 24 Hours (Table) 08/14/20 08/14/20 08/14/20 Range/Units 10:05 11:25 11:30 WBC (3.8-10.6) k/uL RBC (3.80-5.40) m/uL Hgb (11.4-16.0) gm/dL Hct (34.0-46.0) % Neutrophils # (1.3-7.7) k/uL PT (9.0-12.0) sec INR (<1.2) APTT (22.0-30.0) sec ABG pH (7.35-7.45) ABG pCO2 (35-45) mmHg ABG pO2 (83-108) mmHg ABG HCO3 (21-25) mmol/L ABG Total CO2 (19-24) mmol/L ABG O2 Saturation (94-97) % Sodium (137-145) mmol/L Potassium (3.5-5.1) mmol/L BUN (7-17) mg/dL Creatinine (0.52-1.04) mg/dL POC Glucose (mg/dL) 228 H (75-99) mg/dL Hemoglobin A1c 7.6 H (4.0-6.0) % AST (14-36) U/L Troponin I (0.000-0.034) ng/mL Albumin (3.5-5.0) g/dL Urine Appearance Turbid H (Clear) Urine Protein 1+ H (Negative) Urine Blood Large H (Negative) Ur Leukocyte Esterase Large H (Negative) Urine RBC >182 H (0-5) /hpf Urine WBC 128 H (0-5) /hpf Urine WBC Clumps Few H (None) /hpf Amorphous Sediment Rare H (None) /hpf Urine Bacteria Rare H (None) /hpf Hyaline Casts 75 H (0-2) /lpf Urine Mucus Occasional H (None) /hpf 08/14/20 08/14/20 08/14/20 Range/Units 11:30 12:32 16:42 WBC (3.8-10.6) k/uL RBC (3.80-5.40) m/uL Hgb (11.4-16.0) gm/dL Hct (34.0-46.0) % Neutrophils # (1.3-7.7) k/uL PT 12.1 H (9.0-12.0) sec INR 1.2 H (<1.2) APTT (22.0-30.0) sec ABG pH (7.35-7.45) ABG pCO2 (35-45) mmHg ABG pO2 (83-108) mmHg ABG HCO3 (21-25) mmol/L ABG Total CO2 (19-24) mmol/L ABG O2 Saturation (94-97) % Sodium (137-145) mmol/L Potassium (3.5-5.1) mmol/L BUN (7-17) mg/dL Creatinine (0.52-1.04) mg/dL POC Glucose (mg/dL) 236 H 125 H (75-99) mg/dL Hemoglobin A1c (4.0-6.0) % AST (14-36) U/L Troponin I (0.000-0.034) ng/mL Albumin (3.5-5.0) g/dL Urine Appearance (Clear) Urine Protein (Negative) Urine Blood (Negative) Ur Leukocyte Esterase (Negative) Urine RBC (0-5) /hpf Urine WBC (0-5) /hpf Urine WBC Clumps (None) /hpf Amorphous Sediment (None) /hpf Urine Bacteria (None) /hpf Hyaline Casts (0-2) /lpf Urine Mucus (None) /hpf 08/14/20 08/14/20 08/14/20 Range/Units 16:44 16:52 18:00 WBC (3.8-10.6) k/uL RBC (3.80-5.40) m/uL Hgb (11.4-16.0) gm/dL Hct (34.0-46.0) % Neutrophils # (1.3-7.7) k/uL PT (9.0-12.0) sec INR (<1.2) APTT 40.8 H (22.0-30.0) sec ABG pH (7.35-7.45) ABG pCO2 (35-45) mmHg ABG pO2 (83-108) mmHg ABG HCO3 (21-25) mmol/L ABG Total CO2 (19-24) mmol/L ABG O2 Saturation (94-97) % Sodium (137-145) mmol/L Potassium (3.5-5.1) mmol/L BUN (7-17) mg/dL Creatinine (0.52-1.04) mg/dL POC Glucose (mg/dL) 126 H (75-99) mg/dL Hemoglobin A1c (4.0-6.0) % AST (14-36) U/L Troponin I 0.886 H* (0.000-0.034) ng/mL Albumin (3.5-5.0) g/dL Urine Appearance (Clear) Urine Protein (Negative) Urine Blood (Negative) Ur Leukocyte Esterase (Negative) Urine RBC (0-5) /hpf Urine WBC (0-5) /hpf Urine WBC Clumps (None) /hpf Amorphous Sediment (None) /hpf Urine Bacteria (None) /hpf Hyaline Casts (0-2) /lpf Urine Mucus (None) /hpf 08/14/20 08/14/20 08/15/20 Range/Units 22:13 23:55 04:00 WBC 13.1 H (3.8-10.6) k/uL RBC 3.55 L (3.80-5.40) m/uL Hgb 10.7 L (11.4-16.0) gm/dL Hct 31.7 L (34.0-46.0) % Neutrophils # 10.1 H (1.3-7.7) k/uL PT (9.0-12.0) sec INR (<1.2) APTT 51.8 H (22.0-30.0) sec ABG pH (7.35-7.45) ABG pCO2 (35-45) mmHg ABG pO2 (83-108) mmHg ABG HCO3 (21-25) mmol/L ABG Total CO2 (19-24) mmol/L ABG O2 Saturation (94-97) % Sodium (137-145) mmol/L Potassium (3.5-5.1) mmol/L BUN (7-17) mg/dL Creatinine (0.52-1.04) mg/dL POC Glucose (mg/dL) (75-99) mg/dL Hemoglobin A1c (4.0-6.0) % AST (14-36) U/L Troponin I 0.664 H* (0.000-0.034) ng/mL Albumin (3.5-5.0) g/dL Urine Appearance (Clear) Urine Protein (Negative) Urine Blood (Negative) Ur Leukocyte Esterase (Negative) Urine RBC (0-5) /hpf Urine WBC (0-5) /hpf Urine WBC Clumps (None) /hpf Amorphous Sediment (None) /hpf Urine Bacteria (None) /hpf Hyaline Casts (0-2) /lpf Urine Mucus (None) /hpf 08/15/20 08/15/20 08/15/20 Range/Units 04:00 04:00 04:00 WBC (3.8-10.6) k/uL RBC (3.80-5.40) m/uL Hgb (11.4-16.0) gm/dL Hct (34.0-46.0) % Neutrophils # (1.3-7.7) k/uL PT 12.3 H (9.0-12.0) sec INR 1.2 H (<1.2) APTT (22.0-30.0) sec ABG pH (7.35-7.45) ABG pCO2 (35-45) mmHg ABG pO2 (83-108) mmHg ABG HCO3 (21-25) mmol/L ABG Total CO2 (19-24) mmol/L ABG O2 Saturation (94-97) % Sodium 134 L (137-145) mmol/L Potassium 3.1 L (3.5-5.1) mmol/L BUN 36 H (7-17) mg/dL Creatinine 1.80 H (0.52-1.04) mg/dL POC Glucose (mg/dL) (75-99) mg/dL Hemoglobin A1c (4.0-6.0) % AST 39 H (14-36) U/L Troponin I 0.498 H* (0.000-0.034) ng/mL Albumin 3.3 L (3.5-5.0) g/dL Urine Appearance (Clear) Urine Protein (Negative) Urine Blood (Negative) Ur Leukocyte Esterase (Negative) Urine RBC (0-5) /hpf Urine WBC (0-5) /hpf Urine WBC Clumps (None) /hpf Amorphous Sediment (None) /hpf Urine Bacteria (None) /hpf Hyaline Casts (0-2) /lpf Urine Mucus (None) /hpf 08/15/20 08/15/20 08/15/20 Range/Units 04:00 04:08 05:03 WBC (3.8-10.6) k/uL RBC (3.80-5.40) m/uL Hgb (11.4-16.0) gm/dL Hct (34.0-46.0) % Neutrophils # (1.3-7.7) k/uL PT (9.0-12.0) sec INR (<1.2) APTT 59.7 H (22.0-30.0) sec ABG pH 7.58 H* (7.35-7.45) ABG pCO2 30 L (35-45) mmHg ABG pO2 139 H (83-108) mmHg ABG HCO3 28 H (21-25) mmol/L ABG Total CO2 29 H (19-24) mmol/L ABG O2 Saturation 99.7 H (94-97) % Sodium (137-145) mmol/L Potassium (3.5-5.1) mmol/L BUN (7-17) mg/dL Creatinine (0.52-1.04) mg/dL POC Glucose (mg/dL) 100 H (75-99) mg/dL Hemoglobin A1c (4.0-6.0) % AST (14-36) U/L Troponin I (0.000-0.034) ng/mL Albumin (3.5-5.0) g/dL Urine Appearance (Clear) Urine Protein (Negative) Urine Blood (Negative) Ur Leukocyte Esterase (Negative) Urine RBC (0-5) /hpf Urine WBC (0-5) /hpf Urine WBC Clumps (None) /hpf Amorphous Sediment (None) /hpf Urine Bacteria (None) /hpf Hyaline Casts (0-2) /lpf Urine Mucus (None) /hpf 08/15/ Range/Units 07:50 WBC (3.8-10.6) k/uL RBC (3.80-5.40) m/uL Hgb (11.4-16.0) gm/dL Hct (34.0-46.0) % Neutrophils # (1.3-7.7) k/uL PT (9.0-12.0) sec INR (<1.2) APTT (22.0-30.0) sec ABG pH (7.35-7.45) ABG pCO2 (35-45) mmHg ABG pO2 (83-108) mmHg ABG HCO3 (21-25) mmol/L ABG Total CO2 (19-24) mmol/L ABG O2 Saturation (94-97) % Sodium (137-145) mmol/L Potassium (3.5-5.1) mmol/L BUN (7-17) mg/dL Creatinine (0.52-1.04) mg/dL POC Glucose (mg/dL) 130 H (75-99) mg/dL Hemoglobin A1c (4.0-6.0) % AST (14-36) U/L Troponin I (0.000-0.034) ng/mL Albumin (3.5-5.0) g/dL Urine Appearance (Clear) Urine Protein (Negative) Urine Blood (Negative) Ur Leukocyte Esterase (Negative) Urine RBC (0-5) /hpf Urine WBC (0-5) /hpf Urine WBC Clumps (None) /hpf Amorphous Sediment (None) /hpf Urine Bacteria (None) /hpf Hyaline Casts (0-2) /lpf Urine Mucus (None) /hpf Microbiology - Last 24 Hours (Table) 08/13/20 21:35 Blood Culture - Preliminary Blood No Growth after 24 hours 08/14/20 07:30 Gram Stain - Preliminary Sputum Sputum Culture - Preliminary Assessment and Plan Plan: Assessment: 1. Acute kidney injury secondary to ATN secondary to cardiorenal syndrome and hemodynamic instability. Renal function better. Creatinine 1.8 today. Baseline creatinine near 1. No hydronephrosis and kidney ultrasound. 2. V. tach maintained on amiodarone. 3. History of A. fib. 4. Acute hypoxic respiratory failure. Intubated. 5. Acute on chronic systolic CHF with ejection fraction of 20-25% with moderate to severe mitral regurgitation, tricuspid regurgitation and moderate pulmonary hypertension. 6. Diabetes mellitus. 7. Metabolic acidosis secondary to acute kidney injury. Resolved. Plan: Maintain Lasix 40 mg IV twice daily. Maintain tube feeding. Continue to monitor renal function and urine output. Avoid nephrotoxins. Lisinopril and spironolactone added per cardiology. Hold for systolic blood pressure less than 110.
[2020-08-15 11:40] LABS: Glucose,Whole Blood 154 mg/dL (75-99)
[2020-08-15 11:40] LABS: ABG Base Excess 5.9 mmol/L; ABG HCO3 29 mmol/L (21-25); ABG Oxygen Saturation 98.1 % (94-97); ABG PCO2 39 mmHg (35-45); ABG PH 7.48 (7.35-7.45); ABG PO2 104 mmHg (83-108); ABG TCO2 31 mmol/L (19-24)
[2020-08-15 11:42] LABS: Allen Test Performed? No
--- NOTE | 2020-08-15 13:14 | P.PN ---
Subjective Progress Note Date: 08/15/20 HISTORY OF PRESENT ILLNESS: 74 year old female who is admitted to the hospital secondary sustained V-tach requiring defibrillation. Patient examined this morning in the ICU. She remains intubated. Patient remains on IV heparin. Telemetry reveals afib with controlled venticular rates. She is also on IV amio. She is not requiring vasopressor support. Echocardiogram completed revealed ejection fraction 20-25%, severe global hypokinesis of LV, moderate to severe mitral regurgitation, moderate tricuspid regurgitation, and mild to moderate pulmonary hypertension. PHYSICAL EXAM: VITAL SIGNS: Reviewed. GENERAL: Well-developed in no acute distress. NECK: Supple. No JVD or thyromegaly LUNGS: Respirations even and unlabored. Lungs diminished bilaterally. Remains intubated on mechanical ventilation. HEART: Irregular rate and rhythm. S1 and S2 heard. Systolic murmur noted. EXTREMITIES: Normal range of motion. No clubbing or cyanosis. Peripheral pulses intact. 1-2+ bilateral lower extremity edema ASSESSMENT: Acute hypoxic respiratory failure requiring mechanical ventilation Sustained ventricular tachycardia requiring defibrillation Cardiomyopathy, ischemic, EF 20-25% Coronary artery disease Chronic persistent atrial fibrillation Acute systolic heart failure Acute kidney injury Diabetes Mellitus Hyperlipidemia PLAN: Continue ICU management per pulmonary Continue IV heparin Discontinue IV amio. Begin oral amio 400mg BID Begin aldactone and lisinopril secondary to cardiomyopathy Change metoprolol to Toprol XL Patient will require cardiac catheterization when stable Further recommendations pending patient course Nurse practitioner note has been reviewed by physician. Signing provider agrees with the documented findings, assessment, and plan of care. Objective - Vital Signs Vital signs: Vital Signs Temp 98.5 F 08/15/20 04:00 Pulse 92 08/15/20 10:00 Resp 20 08/15/20 10:00 BP 99/59 08/15/20 07:00 Pulse Ox 100 08/15/20 10:00 Intake & Output 08/14/20 08/15/20 08/15/20 18:59 06:59 18:59 Intake Total 340.094 5273.776 292.705 Output Total 775 1645 485 Balance -115.000 -584.224 -192.295 Weight 113.6 kg 112.1 kg Intake: IV 120 120 40 0.9 120 120 40 Intake, IV Titration 450.000 590.776 132.705 Amount Amiodarone 450 mg In 250 Dextrose 5% in Water 250 ml @ 0.5 MG/MIN 16.667 mls/hr IV .Q15H [facility] Rx#: [id number] Heparin Sod,Pork in 0.45% 215.863 NaCl 25,000 unit In 0.45 % NaCl 1 250ml.bag @ 8. 803 UNITS/KG/HR 10 mls/hr IV .Q24H [facility] Rx#: [id number] cefTRIAXone 1 gm In 50 Sodium Chloride 0.9% 50 ml @ 100 mls/hr IVPB Q24HR [facility] Rx#:[id number] propofoL 1,000 mg In 200.000 374.913 82.705 Empty Bag 1 bag @ Titrate IV .Q0M [facility] Rx#: [id number] Tube Feeding 60 260 120 Other 30 90 Output: Urine 775 1645 485 ABP, PAP, CO, CI - Last Documented Arterial Blood Pressure 142/64 - Labs CBC & Chem 7: 08/15/20 04:00 08/15/20 09:20 Labs: Abnormal Lab Results - Last 24 Hours (Table) 08/14/20 08/14/20 08/14/20 Range/Units 11:25 11:30 11:30 WBC (3.8-10.6) k/uL RBC (3.80-5.40) m/uL Hgb (11.4-16.0) gm/dL Hct (34.0-46.0) % Neutrophils # (1.3-7.7) k/uL PT 12.1 H (9.0-12.0) sec INR 1.2 H (<1.2) APTT (22.0-30.0) sec ABG pH (7.35-7.45) ABG pCO2 (35-45) mmHg ABG pO2 (83-108) mmHg ABG HCO3 (21-25) mmol/L ABG Total CO2 (19-24) mmol/L ABG O2 Saturation (94-97) % Sodium (137-145) mmol/L Potassium (3.5-5.1) mmol/L BUN (7-17) mg/dL Creatinine (0.52-1.04) mg/dL POC Glucose (mg/dL) (75-99) mg/dL Hemoglobin A1c 7.6 H (4.0-6.0) % AST (14-36) U/L Troponin I (0.000-0.034) ng/mL Albumin (3.5-5.0) g/dL Urine Appearance Turbid H (Clear) Urine Protein 1+ H (Negative) Urine Blood Large H (Negative) Ur Leukocyte Esterase Large H (Negative) Urine RBC >182 H (0-5) /hpf Urine WBC 128 H (0-5) /hpf Urine WBC Clumps Few H (None) /hpf Amorphous Sediment Rare H (None) /hpf Urine Bacteria Rare H (None) /hpf Hyaline Casts 75 H (0-2) /lpf Urine Mucus Occasional H (None) /hpf 08/14/20 08/14/20 08/14/20 Range/Units 12:32 16:42 16:44 WBC (3.8-10.6) k/uL RBC (3.80-5.40) m/uL Hgb (11.4-16.0) gm/dL Hct (34.0-46.0) % Neutrophils # (1.3-7.7) k/uL PT (9.0-12.0) sec INR (<1.2) APTT (22.0-30.0) sec ABG pH (7.35-7.45) ABG pCO2 (35-45) mmHg ABG pO2 (83-108) mmHg ABG HCO3 (21-25) mmol/L ABG Total CO2 (19-24) mmol/L ABG O2 Saturation (94-97) % Sodium (137-145) mmol/L Potassium (3.5-5.1) mmol/L BUN (7-17) mg/dL Creatinine (0.52-1.04) mg/dL POC Glucose (mg/dL) 236 H 125 H 126 H (75-99) mg/dL Hemoglobin A1c (4.0-6.0) % AST (14-36) U/L Troponin I (0.000-0.034) ng/mL Albumin (3.5-5.0) g/dL Urine Appearance (Clear) Urine Protein (Negative) Urine Blood (Negative) Ur Leukocyte Esterase (Negative) Urine RBC (0-5) /hpf Urine WBC (0-5) /hpf Urine WBC Clumps (None) /hpf Amorphous Sediment (None) /hpf Urine Bacteria (None) /hpf Hyaline Casts (0-2) /lpf Urine Mucus (None) /hpf 08/14/20 08/14/20 08/14/20 Range/Units 16:52 18:00 22:13 WBC (3.8-10.6) k/uL RBC (3.80-5.40) m/uL Hgb (11.4-16.0) gm/dL Hct (34.0-46.0) % Neutrophils # (1.3-7.7) k/uL PT (9.0-12.0) sec INR (<1.2) APTT 40.8 H (22.0-30.0) sec ABG pH (7.35-7.45) ABG pCO2 (35-45) mmHg ABG pO2 (83-108) mmHg ABG HCO3 (21-25) mmol/L ABG Total CO2 (19-24) mmol/L ABG O2 Saturation (94-97) % Sodium (137-145) mmol/L Potassium (3.5-5.1) mmol/L BUN (7-17) mg/dL Creatinine (0.52-1.04) mg/dL POC Glucose (mg/dL) (75-99) mg/dL Hemoglobin A1c (4.0-6.0) % AST (14-36) U/L Troponin I 0.886 H* 0.664 H* (0.000-0.034) ng/mL Albumin (3.5-5.0) g/dL Urine Appearance (Clear) Urine Protein (Negative) Urine Blood (Negative) Ur Leukocyte Esterase (Negative) Urine RBC (0-5) /hpf Urine WBC (0-5) /hpf Urine WBC Clumps (None) /hpf Amorphous Sediment (None) /hpf Urine Bacteria (None) /hpf Hyaline Casts (0-2) /lpf Urine Mucus (None) /hpf 08/14/20 08/15/20 08/15/20 Range/Units 23:55 04:00 04:00 WBC 13.1 H (3.8-10.6) k/uL RBC 3.55 L (3.80-5.40) m/uL Hgb 10.7 L (11.4-16.0) gm/dL Hct 31.7 L (34.0-46.0) % Neutrophils # 10.1 H (1.3-7.7) k/uL PT (9.0-12.0) sec INR (<1.2) APTT 51.8 H (22.0-30.0) sec ABG pH (7.35-7.45) ABG pCO2 (35-45) mmHg ABG pO2 (83-108) mmHg ABG HCO3 (21-25) mmol/L ABG Total CO2 (19-24) mmol/L ABG O2 Saturation (94-97) % Sodium 134 L (137-145) mmol/L Potassium 3.1 L (3.5-5.1) mmol/L BUN 36 H (7-17) mg/dL Creatinine 1.80 H (0.52-1.04) mg/dL POC Glucose (mg/dL) (75-99) mg/dL Hemoglobin A1c (4.0-6.0) % AST 39 H (14-36) U/L Troponin I (0.000-0.034) ng/mL Albumin 3.3 L (3.5-5.0) g/dL Urine Appearance (Clear) Urine Protein (Negative) Urine Blood (Negative) Ur Leukocyte Esterase (Negative) Urine RBC (0-5) /hpf Urine WBC (0-5) /hpf Urine WBC Clumps (None) /hpf Amorphous Sediment (None) /hpf Urine Bacteria (None) /hpf Hyaline Casts (0-2) /lpf Urine Mucus (None) /hpf 08/15/20 08/15/20 08/15/20 Range/Units 04:00 04:00 04:00 WBC (3.8-10.6) k/uL RBC (3.80-5.40) m/uL Hgb (11.4-16.0) gm/dL Hct (34.0-46.0) % Neutrophils # (1.3-7.7) k/uL PT 12.3 H (9.0-12.0) sec INR 1.2 H (<1.2) APTT 59.7 H (22.0-30.0) sec ABG pH (7.35-7.45) ABG pCO2 (35-45) mmHg ABG pO2 (83-108) mmHg ABG HCO3 (21-25) mmol/L ABG Total CO2 (19-24) mmol/L ABG O2 Saturation (94-97) % Sodium (137-145) mmol/L Potassium (3.5-5.1) mmol/L BUN (7-17) mg/dL Creatinine (0.52-1.04) mg/dL POC Glucose (mg/dL) (75-99) mg/dL Hemoglobin A1c (4.0-6.0) % AST (14-36) U/L Troponin I 0.498 H* (0.000-0.034) ng/mL Albumin (3.5-5.0) g/dL Urine Appearance (Clear) Urine Protein (Negative) Urine Blood (Negative) Ur Leukocyte Esterase (Negative) Urine RBC (0-5) /hpf Urine WBC (0-5) /hpf Urine WBC Clumps (None) /hpf Amorphous Sediment (None) /hpf Urine Bacteria (None) /hpf Hyaline Casts (0-2) /lpf Urine Mucus (None) /hpf 08/15/20 08/15/20 08/15/20 Range/Units 04:08 05:03 07:50 WBC (3.8-10.6) k/uL RBC (3.80-5.40) m/uL Hgb (11.4-16.0) gm/dL Hct (34.0-46.0) % Neutrophils # (1.3-7.7) k/uL PT (9.0-12.0) sec INR (<1.2) APTT (22.0-30.0) sec ABG pH 7.58 H* (7.35-7.45) ABG pCO2 30 L (35-45) mmHg ABG pO2 139 H (83-108) mmHg ABG HCO3 28 H (21-25) mmol/L ABG Total CO2 29 H (19-24) mmol/L ABG O2 Saturation 99.7 H (94-97) % Sodium (137-145) mmol/L Potassium (3.5-5.1) mmol/L BUN (7-17) mg/dL Creatinine (0.52-1.04) mg/dL POC Glucose (mg/dL) 100 H 130 H (75-99) mg/dL Hemoglobin A1c (4.0-6.0) % AST (14-36) U/L Troponin I (0.000-0.034) ng/mL Albumin (3.5-5.0) g/dL Urine Appearance (Clear) Urine Protein (Negative) Urine Blood (Negative) Ur Leukocyte Esterase (Negative) Urine RBC (0-5) /hpf Urine WBC (0-5) /hpf Urine WBC Clumps (None) /hpf Amorphous Sediment (None) /hpf Urine Bacteria (None) /hpf Hyaline Casts (0-2) /lpf Urine Mucus (None) /hpf Microbiology - Last 24 Hours (Table) 08/13/20 21:35 Blood Culture - Preliminary Blood No Growth after 24 hours 08/14/20 07:30 Gram Stain - Preliminary Sputum Sputum Culture - Preliminary
--- NOTE | 2020-08-15 15:07 | CDI ---
Documentation Clarification Form Date: 08/15/2020 02:53:12 PM From: Zohra JuddLEONARDO sheriff, CCDS Admit Date: 08/13/2020 10:02:00 PM Patient Name: Bel Seth I Visit Number: [id number] Discharge Date: ATTENTION: The Clinical Documentation Specialists (CDI) and [facility] Coding Staff appreciate your assistance in clarifying documentation. Please respond to the clarification below the line at the bottom and electronically sign. The CDI & [facility] Coding staff will review the response and follow-up if needed. Please note: Queries are made part of the Legal Health Record. If you have any questions, please contact the author of this message via ITS. Dr. Roc Coyne: Per the 08/14 Nephrology Consult, the following is documented: Acute kidney injury secondary to ATN secondary to cardiorenal syndrome and hemodynamic instability. Additional clarification regarding the stage of CKD is requested. History/Risk Factors per the 08/13 ED Note: Atrial Fibrillation, CAD, TIA, Diabetes Mellitus, DVT, Myocardial Infarction, Left Eye Macular Degeneration, Former smoker. Clinical Indicators per the 08/13 ED Note: Presented to the ED via EMS with rapid heart palpitations for the past 3 hours, Dyspnea, Pain between her shoulder blades. Per EMS, the patient was in a wide complex, regular tachycardia with heart rate in the 180s to 220s, initially stable and had a normal blood pressure, so EMS gave the patient Amiodarone 150 mg IV.En route to the ED, BP dropped, patient was cardioverted with 100 J. Heart rate slowed to 130s. ED Clinical Impression: Tachyarrhythmia, Respiratory failure, Hypoxia, Renal insufficiency, Hyperglycemia, Pulmonary edema Current BUN: 08/13: 36, 08/14: 21 - 40; 08/15: 36 Current Creatinine: 08/13: 1.80; 08/04: 0.93 - 2.02; 08/15: 1.80 Current GFR: 08/13: 27; 08/14: 60 - 24; 08/15: 27 Historical GFR: 03/31/2018: 75; 04/02/2018: 79; 04/03/2018: 81; 04/28/2019: 49.1 Treatment 08/13: IV fluid Na Cl 1,000 mls @ 999 mls/hr q1H x2, po ASA 342 mg x1, IV Versed x1, IV Amiodarone drip, IV Ativan, Intubated, IV Propofol, IV Azithromycin, IV Rocephin, IV Quelicin. Please clarify if CKD is present with the diagnosis of Cardiorenal Syndrome and please specify the stage if known: [ ] CKD Stage 2 (GFR 60-89) [ ] CKD Stage 3 (GFR 30-59) [ ] CKD Stage 3a (GFR 45-59) [ ] CKD Stage 3b (GFR 30-44) [ ] CKD Stage 4 (GFR 15-29) [ ] Other, please specify [ ] Unable to determine (Template Last revised: April 2020) aki/atn __ MTDD
[2020-08-15 16:54] LABS: Glucose,Whole Blood 147 mg/dL (75-99)
[2020-08-15] MEDS: POTASSIUM CHLORIDE 10 MEQ in WATER FOR INJECTION 1 100ML.BAG IVPB SCH ×2 (17:08→18:22)
[2020-08-15 20:21] LABS: Glucose,Whole Blood 170 mg/dL (75-99)
[2020-08-15] MEDS: ZOLPIDEM 5 MG TAB PO PRN (20:39)
[2020-08-15] MEDS: traMADol 50 MG TAB PO PRN (22:06)
[2020-08-16] MEDS: ACETAMINOPHEN TAB 325 MG TAB PO PRN (00:09)
[2020-08-16] MEDS: HEPARIN SOD,PORK IN 0.45% NACL 25,000 UNIT in 0.45% NACL 1 250ML.BAG IV SCH (03:45)
[2020-08-16 05:24] LABS: MCH 29.3 pg (25.0-35.0); MCHC 32.4 g/dL (31.0-37.0); MCV 90.6 fL (80.0-100.0); Mean Platelet Volume 8.2; Platelet Count 242 k/uL (150-450); RBC 3.42 m/uL (3.80-5.40); RDW 15.7 % (11.5-15.5); WBC 13.2 k/uL (3.8-10.6)
[2020-08-16 06:05] LABS: Albumin 2.9 g/dL (3.5-5.0); Calcium 8.8 mg/dL (8.4-10.2); Potassium 4.2 mmol/L (3.5-5.1); Total Bilirubin 0.7 mg/dL (0.2-1.3); Total Protein 5.6 g/dL (6.3-8.2)
[2020-08-16 06:51] LABS: Glucose,Whole Blood 183 mg/dL (75-99)
[2020-08-16] MEDS: INSULIN ASPART (NovoLOG) 100 UNIT/ML VIAL SQ SCH ×4 (06:52→20:35)
[2020-08-16] MEDS: traMADol 50 MG TAB PO PRN ×3 (06:52→20:43)
[2020-08-16] MEDS: INSULIN DETEMIR (LEVEMIR) 100 UNIT/ML SYR SQ SCH (06:52)
[2020-08-16] MEDS ORDERED: INSULIN DETEMIR (LEVEMIR) 100 UNIT/ML SYR SQ SCH (07:00)
[2020-08-16] MEDS: IPRATROPIUM-ALBUTEROL 3 ML NEB INHALATION SCH ×4 (07:22→20:10)
--- NOTE | 2020-08-16 07:40 | XR ---
EXAMINATION TYPE: XR chest 1V portable DATE OF EXAM: 08/16/2020 COMPARISON: Chest x-ray 08/15/2020 HISTORY: Fluid overload TECHNIQUE: Single frontal view of the chest is obtained. FINDINGS: Central venous catheter is again noted with the tip of the catheter coursing in a cephalad direction. Endotracheal tube is not seen nor is the orogastric tube. Technique is expiratory and rot ated. Heart remains enlarged. Patchy bilateral airspace disease persists. No evident pneumothorax, di fficult to exclude basilar effusion. IMPRESSION: Findings similar to prior exam, correlate for pneumonia versus edema. There is cardiomeg darian.
[2020-08-16] MEDS: FUROSEMIDE 10 MG/ML 4 ML VIAL IV SCH ×2 (08:28→20:43)
[2020-08-16] MEDS: PANTOPRAZOLE 40 MG/10 ML VIAL IVP SCH (08:28)
[2020-08-16] MEDS: lisinopriL 5 MG TAB PO SCH (08:29)
[2020-08-16] MEDS: AMIODARONE 200 MG TAB PO SCH ×2 (08:29→21:00)
[2020-08-16] MEDS: SPIRONOLACTONE 25 MG TAB PO SCH (08:29)
[2020-08-16] MEDS: METOPROLOL SUCCINATE (ER) 50 MG TAB.ER.24H PO SCH (08:32)
--- NOTE | 2020-08-16 09:37 | P.PN ---
Subjective Progress Note Date: 08/16/20 74-year-old female patient, known history of cardiac disease including CAD, previous VT, previous history of chronic atrial fibrillation, diabetes mellitus whereas been also infected and recovered from COVID-19 back in May 2020 and she is currently being treated for a stage III right lower extremity wound being treated at [facility] and the patient was discharged recently home. The patient was brought into the hospital as the patient was experiencing some palpitations at home. EMS came to the scene and the patient was found to have a wide complex tachycardia consistent with V. tach. In the emergency department, the patient was given a shock and the patient converted to atrial fibrillation with a controlled rate. She was in acute pulmonary edema. She was hypoxic. She was unresponsive. At that point the patient was intubated and placed on a mechanical ventilator. She is currently sedated with propofol and she is calm and comfortable. Probable resolving at 20 mg/kg per minute. She is on assist control mode at the rate of 26 and a tidal volume of 400 and FiO2 of 70% with a PEEP of 8. Peak air pressures 34 static pressure of 27. FiO2 was dropped down to 50%. Chest x-ray is showing some improvement in the bilateral pulmonary edema compared to yesterday. ET tube is high in the trachea and is to be repositioned. As stated, the patient is currently on no pressors. The morning blood gases showed a pH of 7.47 with a pCO2 of 37 and pO2 of 241 and this was on FiO2 of 100%. The white cell count at 16.3. The patient's lactic acid level is at 2.8. Creatinine was up to 2.0 to consistent with an acute kidney injury. Her troponin was 0.80. The patient's proBNP level is 3940. Rest of the blood work and x-rays shows a potassium level of 5.0 with a creatinine of 2.02 and a serum bicarb of 20. Bedside echocardiogram was done and the preliminary report is consistent with severe cardiomyopathy with an ejection fraction of less than 20%. On today's evaluation of 08/15/2020, the patient is being seen for a follow-up. As stated earlier, the patient has history of cardiac disease, COPD and chronic A. fib and the patient presented with wide complex tachycardia/V. tach. She is currently intubated on a mechanical ventilator. Intubation was done because of an acute pulmonary edema. On her echocardiogram, the patient was found to have an ejection fraction of 20-25% and was consistent with systolic heart failure. She has some diastolic filling abnormality. She also has no evidence of aortic disease, moderate to severe mitral regurgitation, [id number] pulmonary hypertension with a PA pressure of 39. The patient currently is in a Hx fibril lation rhythm. Amiodarone is still running at 0.5 mg per minute and this needs to be switched to oral maintenance. She is on IV heparin for now as the patient was having some issues with acute kidney injury and lines had to be established. Yesterday, triple lumen catheter was inserted in the left IJ. The CVP currently is at 11. The chest x-ray from today there is evidence of cardiomegaly, bilateral pleural effusions, interstitial edema, triple lumen cath in the left IJ, ET tube is in a good location as she was pushed and the lip line of 23. OG tube is also in place. The patient remains on mechanical ventilator. This morning she is on a assist-control of 16 which was dropped down with a tidal volume of 400 and FiO2 of 50% with a PEEP of 6. Morning blood gases that was done on a PEEP of 8 showed a pH of 7.58 with a pCO2 of 30 and pO2 of 139. This was also done at the rate of 26 the patient is still being diuresed with IV Lasix. She is receiving Lasix 40 mg IV every 12 hours. Creatinine is down to 1.8. Urine output is in order of 100 mL an hour and the neck fluid balance over the past 24 hours has been -6 99 mL. Ultrasound the kidney was done and it showed no evidence of any hydronephrosis. She is afebrile. Currently she is on no pressors. She is sedated with propofol which is running at 50 mcg/kg per minute. 08/16/2020, the patient is extubated. After successfully diuresing the patient, the patient was weaned off the sedation, she was able to give us a good weaning parameters and good spontaneous breathing trial and following that she was extubated to nasal cannula and this morning she is sitting up on a chair and she is on oxygen at 4 L which was later dropped down to 2 L nasal cannula. The chest x-ray from today is showing interval removal of the orotracheal tube. There is also cardiomegaly. There is also small bilateral pleural effusions. There is also interstitial edema which is essentially improving. Lung volumes are still. The patient is currently in atrial fibrillation and the rate is somewhere between 100-120. The patient is currently on amiodarone 400 mg by mouth twice a day. Lopressor dose was adjusted to 50 mg by mouth daily XL and the patient was started on Aldactone 25 mg by mouth daily as of yesterday and she was also started on lisinopril 5 mg. She is still being diuresed with Lasix receiving a dose of 40 mg IV every 12 hours. As mentioned earlier, she has impaired ejection fraction with systolic heart failure and ejection fraction of 20-25% and mild pulmonary hypertension. Her current CVP is around 8. The over all fluid balance is -2.9 L over the past 24 hours and the patient has had a hours a negative fluid balance again. Electrolytes from today shows a potassium level of 4.2 and a creatinine is at 1.3 which is essentially improved compared to yesterday and the renal function continues to improve. In terms of her abnormal UA, the urine cultures still pending. Blood cultures of been negative and the patient is currently on IV Rocephin as an empiric antibiotic coverage. She is on Levemir insulin 10 units along with a sliding scale coverage and blood sugars are being monitored. No other significant events otherwise for now. She is off sedation. She is awake and alert. She'll be advanced on her diet and currently she is on diabetic carb Consistent diet. Objective - Vital Signs Vital signs: Vital Signs Temp 98.5 F 08/16/20 04:00 Pulse 123 H 08/16/20 09:00 Resp 22 08/16/20 09:00 BP 97/54 08/16/20 06:00 Pulse Ox 97 08/16/20 09:00 Intake & Output 08/15/20 08/16/20 08/16/20 18:59 06:59 18:59 Intake Total 381.762 370 40 Output Total 2195 1540 125 Balance -1813.238 -1170 -85 Weight 111.4 kg Intake: IV 110 120 40 0.9 110 120 40 Intake, IV Titration 151.762 250 Amount Heparin Sod,Pork in 0.45% 250 NaCl 25,000 unit In 0.45 % NaCl 1 250ml.bag @ 8. 803 UNITS/KG/HR 10 mls/hr IV .Q24H [facility] Rx#: [id number] cefTRIAXone 1 gm In 50 Sodium Chloride 0.9% 50 ml @ 100 mls/hr IVPB Q24HR [facility] Rx#:[id number] propofoL 1,000 mg In 101.762 Empty Bag 1 bag @ Titrate IV .Q0M [facility] Rx#: [id number] Tube Feeding 120 Output: Urine 2195 1540 125 Other: Voiding Method Indwelling Catheter Indwelling Catheter ABP, PAP, CO, CI - Last Documented Arterial Blood Pressure 117/40 - Exam Gen. appearance, calm and comfortable, obese, and alert and currently on 2 L of oxygen by nasal cannula Head exam was generally normal. There was no scleral icterus or corneal arcus. Mucous membranes were moist. Neck was supple and without jugular venous distension, thyromegaly, or carotid bruits. Carotids were easily palpable bilaterally. There was no adenopathy. Orogastric and orotracheal tube are both in place Lungs sounds are diminished in lung bases bilaterally Heart sounds are irregular, rate is controlled for now, irregular S1-S2 c onsistent with atrial fibrillation. No cervical murmurs appreciated. Overall heart sounds are distant. Abdominal exam revealed normal bowel sounds. The abdomen was soft, non-tender, and without masses, organomegaly, or appreciable enlargement of the abdominal aorta. Examination of the extremities revealed diminished pulses in the radial, femoral and pedal pulses. There was no cyanosis, clubbing or edema. Examination of the skin shows a stage III wound in the right lower extremity, lateral leg and the base of the wound is dry clean and intact at this point in time and there is no purulent discharge and there is no surrounding cellulitis. Neurologically the patient sedated and the patient is calm and comfortable. - Labs CBC & Chem 7: 08/16/20 05:00 08/16/20 05:00 Labs: Abnormal Lab Results - Last 24 Hours (Table) 08/15/20 08/15/20 08/15/20 Range/Units 11:37 11:38 16:52 WBC (3.8-10.6) k/uL RBC (3.80-5.40) m/uL Hgb (11.4-16.0) gm/dL Hct (34.0-46.0) % RDW (11.5-15.5) % APTT (22.0-30.0) sec ABG pH 7.48 H (7.35-7.45) ABG HCO3 29 H (21-25) mmol/L ABG Total CO2 31 H (19-24) mmol/L ABG O2 Saturation 98.1 H (94-97) % Sodium (137-145) mmol/L BUN (7-17) mg/dL Creatinine (0.52-1.04) mg/dL Glucose (74-99) mg/dL POC Glucose (mg/dL) 154 H 147 H (75-99) mg/dL Total Protein (6.3-8.2) g/dL Albumin (3.5-5.0) g/dL 08/15/20 08/16/20 08/16/20 Range/Units 20:20 05:00 05:00 WBC 13.2 H (3.8-10.6) k/uL RBC 3.42 L (3.80-5.40) m/uL Hgb 10.0 L (11.4-16.0) gm/dL Hct 31.0 L (34.0-46.0) % RDW 15.7 H (11.5-15.5) % APTT (22.0-30.0) sec ABG pH (7.35-7.45) ABG HCO3 (21-25) mmol/L ABG Total CO2 (19-24) mmol/L ABG O2 Saturation (94-97) % Sodium 134 L (137-145) mmol/L BUN 31 H (7-17) mg/dL Creatinine 1.30 H (0.52-1.04) mg/dL Glucose 161 H (74-99) mg/dL POC Glucose (mg/dL) 170 H (75-99) mg/dL Total Protein 5.6 L (6.3-8.2) g/dL Albumin 2.9 L (3.5-5.0) g/dL 08/16/20 08/16/20 Range/Units 05:00 06:49 WBC (3.8-10.6) k/uL RBC (3.80-5.40) m/uL Hgb (11.4-16.0) gm/dL Hct (34.0-46.0) % RDW (11.5-15.5) % APTT 51.3 H (22.0-30.0) sec ABG pH (7.35-7.45) ABG HCO3 (21-25) mmol/L ABG Total CO2 (19-24) mmol/L ABG O2 Saturation (94-97) % Sodium (137-145) mmol/L BUN (7-17) mg/dL Creatinine (0.52-1.04) mg/dL Glucose (74-99) mg/dL POC Glucose (mg/dL) 183 H (75-99) mg/dL Total Protein (6.3-8.2) g/dL Albumin (3.5-5.0) g/dL Microbiology - Last 24 Hours (Table) 08/13/20 21:35 Blood Culture - Preliminary Blood No Growth after 48 hours 08/15/20 09:40 Urine Culture - Preliminary Urine,Catheterized 08/14/20 07:30 Gram Stain - Preliminary Sputum Sputum Culture - Preliminary Assessment and Plan Plan: 1 acute hypoxic respiratory failure/pulmonary edema, alert and the patient is currently extubated on 2 L of oxygen by nasal cannula. She is hemodynamically stable at this point in time. 2 sustained V. tach, post cardioversion and the patient's current rhythm is atrial fibrillation with a controlled rate, the patient remains on amiodarone 400 mg by mouth twice a day in combination with metoprolol XL 50 mg by mouth daily and the cardiac rhythm is atrial fibrillation. No further episodes of V. tach and the patient is awaiting a cardiac catheterization. 3 cardiomyopathy with an ejection fraction of less than 20%-25% along with moderate to severe mitral regurgitation, likely of a new onset thing a cardiac catheterization, rule out ischemic cardiomyopathy 4 chronic atrial fibrillation maintained on a combination of amiodarone, metoprolol and IV heparin for now pending cardiac catheterization 5 coronary artery disease appears myocardial infarction 6 previous history of DVT 7 hyperlipidemia 8 macular degeneration 9 remote history of CVA 10 acute kidney injury with oligoria, , creatinine is improving 11 metabolic acidosis secondary to acute kidney injury , resolved 12 COVID-19 infection treated and subsequent recovery back to May 2020 13 stage III right lower extremity wound without any signs of infection or cellulitis 14 suspected UTI Plan Patient is extubated and currently she is on 2 L of oxygen by nasal cannula. IV fluids to KVO Continue IV Lasix 40 mg every 12 hours, will hold evening dose of Lasix pending cardiac catheterization in a.m. and watch for any contrast nephropathy Continue oral amiodarone 400 mg 2 times a day and Toprol for rate control 50 mg XL, and the patient has been also started on lisinopril 10 mg by mouth daily regarding her cardiomyopathy. IV heparin Levemir insulin dose to be dropped down to 10 units daily IV Rocephin 1 g every 24 hours pending cultures Possible cardiac catheterization in a.m. Advance diet as tolerated
--- NOTE | 2020-08-16 10:14 | P.PN ---
Subjective Principal diagnosis: Respiratory distress. The patient now off the ventilator but having significant tachycardia. This is a continuing progress note on a 74-year-old white female essentially admitted for respiratory failure and tachyarrhythmia. The patient is now Off the ventilator. Cardiology is considering cardiac catheterization. The patient does not appear to be in respiratory distress at this time. No voiding difficulties. Objective - Vital Signs Vital signs: Vital Signs Temp 98.5 F 08/16/20 04:00 Pulse 123 H 08/16/20 09:00 Resp 22 08/16/20 09:00 BP 97/54 08/16/20 06:00 Pulse Ox 97 08/16/20 09:00 Intake & Output 08/15/20 08/16/20 08/16/20 18:59 06:59 18:59 Intake Total 381.762 370 40 Output Total 2195 1540 125 Balance -1813.238 -1170 -85 Weight 111.4 kg Intake: IV 110 120 40 0.9 110 120 40 Intake, IV Titration 151.762 250 Amount Heparin Sod,Pork in 0.45% 250 NaCl 25,000 unit In 0.45 % NaCl 1 250ml.bag @ 8. 803 UNITS/KG/HR 10 mls/hr IV .Q24H [facility] Rx#: [id number] cefTRIAXone 1 gm In 50 Sodium Chloride 0.9% 50 ml @ 100 mls/hr IVPB Q24HR [facility] Rx#:[id number] propofoL 1,000 mg In 101.762 Empty Bag 1 bag @ Titrate IV .Q0M [facility] Rx#: [id number] Tube Feeding 120 Output: Urine 2195 1540 125 Other: Voiding Method Indwelling Catheter Indwelling Catheter ABP, PAP, CO, CI - Last Documented Arterial Blood Pressure 117/40 - Constitutional General appearance: Present: no acute distress - EENT Eyes: Absent: abnormal pupil - Respiratory Respiratory: bilateral: diminished - Cardiovascular Heart rate: 120 Rhythm: irregularly irregular Heart sounds: normal: S1, S2 Abnormal Heart Sounds: Absent: S3 Gallop - Gastrointestinal General gastrointestinal: Present: soft. Absent: tenderness - Neurologic Neurologic: Present: CNII-XII intact - Labs CBC & Chem 7: 08/16/20 05:00 08/16/20 05:00 Labs: Abnormal Lab Results - Last 24 Hours (Table) 08/15/20 08/15/20 08/15/20 Range/Units 11:37 11:38 16:52 WBC (3.8-10.6) k/uL RBC (3.80-5.40) m/uL Hgb (11.4-16.0) gm/dL Hct (34.0-46.0) % RDW (11.5-15.5) % APTT (22.0-30.0) sec ABG pH 7.48 H (7.35-7.45) ABG HCO3 29 H (21-25) mmol/L ABG Total CO2 31 H (19-24) mmol/L ABG O2 Saturation 98.1 H (94-97) % Sodium (137-145) mmol/L BUN (7-17) mg/dL Creatinine (0.52-1.04) mg/dL Glucose (74-99) mg/dL POC Glucose (mg/dL) 154 H 147 H (75-99) mg/dL Total Protein (6.3-8.2) g/dL Albumin (3.5-5.0) g/dL 08/15/20 08/16/20 08/16/20 Range/Units 20:20 05:00 05:00 WBC 13.2 H (3.8-10.6) k/uL RBC 3.42 L (3.80-5.40) m/uL Hgb 10.0 L (11.4-16.0) gm/dL Hct 31.0 L (34.0-46.0) % RDW 15.7 H (11.5-15.5) % APTT (22.0-30.0) sec ABG pH (7.35-7.45) ABG HCO3 (21-25) mmol/L ABG Total CO2 (19-24) mmol/L ABG O2 Saturation (94-97) % Sodium 134 L (137-145) mmol/L BUN 31 H (7-17) mg/dL Creatinine 1.30 H (0.52-1.04) mg/dL Glucose 161 H (74-99) mg/dL POC Glucose (mg/dL) 170 H (75-99) mg/dL Total Protein 5.6 L (6.3-8.2) g/dL Albumin 2.9 L (3.5-5.0) g/dL 08/16/20 08/16/20 Range/Units 05:00 06:49 WBC (3.8-10.6) k/uL RBC (3.80-5.40) m/uL Hgb (11.4-16.0) gm/dL Hct (34.0-46.0) % RDW (11.5-15.5) % APTT 51.3 H (22.0-30.0) sec ABG pH (7.35-7.45) ABG HCO3 (21-25) mmol/L ABG Total CO2 (19-24) mmol/L ABG O2 Saturation (94-97) % Sodium (137-145) mmol/L BUN (7-17) mg/dL Creatinine (0.52-1.04) mg/dL Glucose (74-99) mg/dL POC Glucose (mg/dL) 183 H (75-99) mg/dL Total Protein (6.3-8.2) g/dL Albumin (3.5-5.0) g/dL Microbiology - Last 24 Hours (Table) 08/14/20 07:30 Gram Stain - Final Sputum Sputum Culture - Final 08/13/20 21:35 Blood Culture - Preliminary Blood No Growth after 48 hours 08/15/20 09:40 Urine Culture - Preliminary Urine,Catheterized Assessment and Plan (1) Tachyarrhythmia Current Visit: Yes Status: Acute Code(s): R00.0 - TACHYCARDIA, UNSPECIFIED SNOMED Code(s): 9066977 (2) Diabetes Current Visit: No Status: Acute Code(s): E11.9 - TYPE 2 DIABETES MELLITUS WITHOUT COMPLICATIONS SNOMED Code(s): 12888657 (3) Atrial fibrillation Current Visit: Yes Status: Acute Code(s): I48.91 - UNSPECIFIED ATRIAL FIBRILLATION SNOMED Code(s): 68885499 (4) Pulmonary edema Current Visit: Yes Status: Acute Code(s): J81.1 - CHRONIC PULMONARY EDEMA SNOMED Code(s): 51882357 (5) Leg ulcer, left Current Visit: Yes Status: Acute Code(s): L97.929 - NON-PRS CHRONIC ULC UNSP PRT OF L LOW LEG W UNSP SEVERITY SNOMED Code(s): 51013786 Plan: Continue current regimen of treatment. Metoprolol has been increased. Appreciate multiple consultants input. Check CBC and CMP in a.m. New preop weight probable cardiac catheterization in the a.m.
--- NOTE | 2020-08-16 10:35 | P.PN ---
Subjective Patient is seen in follow for acute kidney injury. Renal function improving. Extubated. Sitting up in chair. Denies chest pain or shortness of breath. On nasal cannula. Maintained on IV Lasix. Nonoliguric. Vital signs are stable. HEENT: On nasal cannula. LUNGS: Breath sounds decreased. HEART: Rate and Rhythm are regular. ABDOMEN: Soft, no distention. EXTREMITITES: Trace edema. Objective - Vital Signs Vital signs: Vital Signs Temp 98.5 F 08/16/20 04:00 Pulse 123 H 08/16/20 09:00 Resp 22 08/16/20 09:00 BP 97/54 08/16/20 06:00 Pulse Ox 97 08/16/20 09:00 Intake & Output 08/15/20 08/16/20 08/16/20 18:59 06:59 18:59 Intake Total 381.762 370 40 Output Total 2195 1540 125 Balance -1813.238 -1170 -85 Weight 111.4 kg Intake: IV 110 120 40 0.9 110 120 40 Intake, IV Titration 151.762 250 Amount Heparin Sod,Pork in 0.45% 250 NaCl 25,000 unit In 0.45 % NaCl 1 250ml.bag @ 8. 803 UNITS/KG/HR 10 mls/hr IV .Q24H [facility] Rx#: [id number] cefTRIAXone 1 gm In 50 Sodium Chloride 0.9% 50 ml @ 100 mls/hr IVPB Q24HR [facility] Rx#:[id number] propofoL 1,000 mg In 101.762 Empty Bag 1 bag @ Titrate IV .Q0M [facility] Rx#: [id number] Tube Feeding 120 Output: Urine 2195 1540 125 Other: Voiding Method Indwelling Catheter Indwelling Catheter ABP, PAP, CO, CI - Last Documented Arterial Blood Pressure 117/40 - Labs CBC & Chem 7: 08/16/20 05:00 08/16/20 05:00 Labs: Abnormal Lab Results - Last 24 Hours (Table) 08/15/20 08/15/20 08/15/20 Range/Units 11:37 11:38 16:52 WBC (3.8-10.6) k/uL RBC (3.80-5.40) m/uL Hgb (11.4-16.0) gm/dL Hct (34.0-46.0) % RDW (11.5-15.5) % APTT (22.0-30.0) sec ABG pH 7.48 H (7.35-7.45) ABG HCO3 29 H (21-25) mmol/L ABG Total CO2 31 H (19-24) mmol/L ABG O2 Saturation 98.1 H (94-97) % Sodium (137-145) mmol/L BUN (7-17) mg/dL Creatinine (0.52-1.04) mg/dL Glucose (74-99) mg/dL POC Glucose (mg/dL) 154 H 147 H (75-99) mg/dL Total Protein (6.3-8.2) g/dL Albumin (3.5-5.0) g/dL 08/15/20 08/16/20 08/16/20 Range/Units 20:20 05:00 05:00 WBC 13.2 H (3.8-10.6) k/uL RBC 3.42 L (3.80-5.40) m/uL Hgb 10.0 L (11.4-16.0) gm/dL Hct 31.0 L (34.0-46.0) % RDW 15.7 H (11.5-15.5) % APTT (22.0-30.0) sec ABG pH (7.35-7.45) ABG HCO3 (21-25) mmol/L ABG Total CO2 (19-24) mmol/L ABG O2 Saturation (94-97) % Sodium 134 L (137-145) mmol/L BUN 31 H (7-17) mg/dL Creatinine 1.30 H (0.52-1.04) mg/dL Glucose 161 H (74-99) mg/dL POC Glucose (mg/dL) 170 H (75-99) mg/dL Total Protein 5.6 L (6.3-8.2) g/dL Albumin 2.9 L (3.5-5.0) g/dL 08/16/20 08/16/20 Range/Units 05:00 06:49 WBC (3.8-10.6) k/uL RBC (3.80-5.40) m/uL Hgb (11.4-16.0) gm/dL Hct (34.0-46.0) % RDW (11.5-15.5) % APTT 51.3 H (22.0-30.0) sec ABG pH (7.35-7.45) ABG HCO3 (21-25) mmol/L ABG Total CO2 (19-24) mmol/L ABG O2 Saturation (94-97) % Sodium (137-145) mmol/L BUN (7-17) mg/dL Creatinine (0.52-1.04) mg/dL Glucose (74-99) mg/dL POC Glucose (mg/dL) 183 H (75-99) mg/dL Total Protein (6.3-8.2) g/dL Albumin (3.5-5.0) g/dL Microbiology - Last 24 Hours (Table) 08/14/20 07:30 Gram Stain - Final Sputum Sputum Culture - Final 08/13/20 21:35 Blood Culture - Preliminary Blood No Growth after 48 hours 08/15/20 09:40 Urine Culture - Preliminary Urine,Catheterized Assessment and Plan Plan: Assessment: 1. Acute kidney injury secondary to ATN secondary to cardiorenal syndrome and hemodynamic instability. Renal function better. Creatinine 1.3 today. Baseline creatinine near 1. No hydronephrosis and kidney ultrasound. 2. V. tach maintained on amiodarone. 3. History of A. fib. 4. Acute hypoxic respiratory failure. Intubated. 5. Acute on chronic systolic CHF with ejection fraction of 20-25% with moderate to severe mitral regurgitation, tricuspid regurgitation and moderate pulmonary hypertension. 6. Diabetes mellitus. 7. Metabolic acidosis secondary to acute kidney injury. Resolved. Plan: Hold Lasix the night before and the morning of cardiac catheterization. Encourage oral intake. Continue to monitor renal function and urine output. Avoid nephrotoxins. Risk of worsening renal function, including potential need for renal replacement therapy, post contrast exposure was discussed with the patient. She understands.
--- NOTE | 2020-08-16 11:16 | P.PN ---
Subjective Progress Note Date: 08/16/20 HISTORY OF PRESENT ILLNESS: 74 year old female who is admitted to the hospital secondary sustained V-tach requiring defibrillation. Patient examined this morning in the ICU. She remains intubated. Patient remains on IV heparin. Telemetry reveals afib with controlled venticular rates. She is also on IV amio. She is not requiring vasopressor support. Echocardiogram completed revealed ejection fraction 20-25%, severe global hypokinesis of LV, moderate to severe mitral regurgitation, moderate tricuspid regurgitation, and mild to moderate pulmonary hypertension. 08/16/2020 Patient examined this morning at the bedside. She remains in the ICU. Patient was extubated yesterday. The patient is on nasal cannula with oxygen saturations greater than 92%. She denies chest pain or pressure. She denies shortness of breath. Patient remains in atrial fibrillation on telemetry. Heart rate this morning is in the 120s. However patient just got up to the chair right before examination. Patient underwent cardiac catheterization in April 2019 at [facility] with Dr. Guillen revealing normal coronary arteries. PHYSICAL EXAM: VITAL SIGNS: Reviewed. GENERAL: Well-developed in no acute distress. NECK: Supple. No JVD or thyromegaly LUNGS: Respirations even and unlabored. Lungs diminished bilaterally. HEART: Irregular rate and rhythm. S1 and S2 heard. Systolic murmur noted. EXTREMITIES: Normal range of motion. No clubbing or cyanosis. Peripheral pulses intact. 1-2+ bilateral lower extremity edema ASSESSMENT: Acute hypoxic respiratory failure requiring mechanical ventilation Sustained ventricular tachycardia requiring defibrillation Cardiomyopathy, nonischemic, EF 20-25%, patient underwent cardiac cath in 2019 revealing normal coronary arteries Coronary artery disease, per chart, now ruled out as patient had cardiac cath in 2019 revealing normal coronary arteries Chronic persistent atrial fibrillation Acute systolic heart failure Acute kidney injury Diabetes Mellitus Hyperlipidemia PLAN: Continue ICU management per pulmonary Continue oral amio, aldactone, lisinopril, toprol XL Continue IV lasix Per Dr Mckenna, no plans for cardiac cath as patient had cath in 2019 revealing [address] arteries[address] Dr. Mckenna to speak with Dr. Pete regarding possible EP study Continue IV heparin for now Further recommendations pending patient course Nurse practitioner note has been reviewed by physician. Signing provider agrees with the documented findings, assessment, and plan of care. Objective - Vital Signs Vital signs: Vital Signs Temp 98.5 F 08/16/20 04:00 Pulse 123 H 08/16/20 09:00 Resp 22 08/16/20 09:00 BP 97/54 08/16/20 06:00 Pulse Ox 97 08/16/20 09:00 Intake & Output 08/15/20 08/16/20 08/16/20 18:59 06:59 18:59 Intake Total 381.762 370 330 Output Total 2195 1540 275 Balance -1813.238 -1170 55 Weight 111.4 kg Intake: IV 110 120 80 0.9 110 120 80 Intake, IV Titration 151.762 250 Amount Heparin Sod,Pork in 0.45% 250 NaCl 25,000 unit In 0.45 % NaCl 1 250ml.bag @ 8. 803 UNITS/KG/HR 10 mls/hr IV .Q24H [facility] Rx#: [id number] cefTRIAXone 1 gm In 50 Sodium Chloride 0.9% 50 ml @ 100 mls/hr IVPB Q24HR [facility] Rx#:[id number] propofoL 1,000 mg In 101.762 Empty Bag 1 bag @ Titrate IV .Q0M [facility] Rx#: [id number] Oral 250 Tube Feeding 120 Output: Urine 2195 1540 275 Other: Voiding Method Indwelling Catheter Indwelling Catheter ABP, PAP, CO, CI - Last Documented Arterial Blood Pressure 117/40 - Labs CBC & Chem 7: 08/17/20 04:45 08/17/20 04:45 Labs: Abnormal Lab Results - Last 24 Hours (Table) 08/15/20 08/15/20 08/15/20 Range/Units 11:37 11:38 16:52 WBC (3.8-10.6) k/uL RBC (3.80-5.40) m/uL Hgb (11.4-16.0) gm/dL Hct (34.0-46.0) % RDW (11.5-15.5) % APTT (22.0-30.0) sec ABG pH 7.48 H (7.35-7.45) ABG HCO3 29 H (21-25) mmol/L ABG Total CO2 31 H (19-24) mmol/L ABG O2 Saturation 98.1 H (94-97) % Sodium (137-145) mmol/L BUN (7-17) mg/dL Creatinine (0.52-1.04) mg/dL Glucose (74-99) mg/dL POC Glucose (mg/dL) 154 H 147 H (75-99) mg/dL Total Protein (6.3-8.2) g/dL Albumin (3.5-5.0) g/dL 08/15/20 08/16/20 08/16/20 Range/Units 20:20 05:00 05:00 WBC 13.2 H (3.8-10.6) k/uL RBC 3.42 L (3.80-5.40) m/uL Hgb 10.0 L (11.4-16.0) gm/dL Hct 31.0 L (34.0-46.0) % RDW 15.7 H (11.5-15.5) % APTT (22.0-30.0) sec ABG pH (7.35-7.45) ABG HCO3 (21-25) mmol/L ABG Total CO2 (19-24) mmol/L ABG O2 Saturation (94-97) % Sodium 134 L (137-145) mmol/L BUN 31 H (7-17) mg/dL Creatinine 1.30 H (0.52-1.04) mg/dL Glucose 161 H (74-99) mg/dL POC Glucose (mg/dL) 170 H (75-99) mg/dL Total Protein 5.6 L (6.3-8.2) g/dL Albumin 2.9 L (3.5-5.0) g/dL 08/16/20 08/16/20 Range/Units 05:00 06:49 WBC (3.8-10.6) k/uL RBC (3.80-5.40) m/uL Hgb (11.4-16.0) gm/dL Hct (34.0-46.0) % RDW (11.5-15.5) % APTT 51.3 H (22.0-30.0) sec ABG pH (7.35-7.45) ABG HCO3 (21-25) mmol/L ABG Total CO2 (19-24) mmol/L ABG O2 Saturation (94-97) % Sodium (137-145) mmol/L BUN (7-17) mg/dL Creatinine (0.52-1.04) mg/dL Glucose (74-99) mg/dL POC Glucose (mg/dL) 183 H (75-99) mg/dL Total Protein (6.3-8.2) g/dL Albumin (3.5-5.0) g/dL Microbiology - Last 24 Hours (Table) 08/14/20 07:30 Gram Stain - Final Sputum Sputum Culture - Final 08/13/20 21:35 Blood Culture - Preliminary Blood No Growth after 48 hours 08/15/20 09:40 Urine Culture - Preliminary Urine,Catheterized
[2020-08-16 11:56] LABS: Glucose,Whole Blood 288 mg/dL (75-99)
[2020-08-16 16:59] LABS: Glucose,Whole Blood 251 mg/dL (75-99)
[2020-08-16 20:06] LABS: Glucose,Whole Blood 243 mg/dL (75-99)
[2020-08-16] MEDS ORDERED: INSULIN DETEMIR (LEVEMIR) 100 UNIT/ML SYR SQ ONE (20:22)
[2020-08-16] MEDS: ZOLPIDEM 5 MG TAB PO PRN (20:44)
[2020-08-17] MEDS: HEPARIN SOD,PORK IN 0.45% NACL 25,000 UNIT in 0.45% NACL 1 250ML.BAG IV SCH ×2 (00:33→19:51)
[2020-08-17 05:16] LABS: HCT 28.9 % (34.0-46.0); HGB 9.8 gm/dL (11.4-16.0); MCHC 34.1 g/dL (31.0-37.0); Mean Platelet Volume 7.8; Platelet Count 240 k/uL (150-450); RBC 3.17 m/uL (3.80-5.40); RDW 15.4 % (11.5-15.5)
[2020-08-17 06:00] LABS: Albumin 2.9 g/dL (3.5-5.0); Calcium 8.7 mg/dL (8.4-10.2); Potassium 3.9 mmol/L (3.5-5.1); Total Bilirubin 0.5 mg/dL (0.2-1.3); Total Protein 5.7 g/dL (6.3-8.2)
[2020-08-17 07:03] LABS: Glucose,Whole Blood 138 mg/dL (75-99)
[2020-08-17] MEDS: INSULIN DETEMIR (LEVEMIR) 100 UNIT/ML SYR SQ SCH (07:18)
[2020-08-17] MEDS: INSULIN ASPART (NovoLOG) 100 UNIT/ML VIAL SQ SCH ×4 (07:18→19:44)
[2020-08-17] MEDS: traMADol 50 MG TAB PO PRN ×2 (07:58→18:50)
[2020-08-17] MEDS: PANTOPRAZOLE 40 MG/10 ML VIAL IVP SCH (08:02)
[2020-08-17] MEDS: FUROSEMIDE 10 MG/ML 4 ML VIAL IV SCH ×2 (08:05→19:45)
[2020-08-17] MEDS: SPIRONOLACTONE 25 MG TAB PO SCH (08:05)
[2020-08-17] MEDS: AMIODARONE 200 MG TAB PO SCH ×2 (08:05→19:45)
[2020-08-17] MEDS: IPRATROPIUM-ALBUTEROL 3 ML NEB INHALATION SCH ×4 (08:05→20:01)
[2020-08-17] MEDS: lisinopriL 5 MG TAB PO SCH (08:05)
[2020-08-17] MEDS: METOPROLOL SUCCINATE (ER) 50 MG TAB.ER.24H PO SCH (08:16)
--- NOTE | 2020-08-17 08:33 | P.PN ---
Subjective Principal diagnosis: Respiratory distress. The patient now off the ventilator but having significant tachycardia. This is a continuing progress note on a 74-year-old white female essentially admitted for respiratory failure and tachyarrhythmia. The patient is now Off the ventilator. Cardiology is anticipating AICD and EPS. The patient does not appear to be in respiratory distress at this time. No voiding difficulties. Objective - Vital Signs Vital signs: Vital Signs Temp 98.6 F 08/17/20 08:00 Pulse 102 H 08/17/20 08:00 Resp 17 08/17/20 08:00 BP 101/53 08/17/20 07:00 Pulse Ox 97 08/17/20 08:00 Intake & Output 08/16/20 08/17/20 08/17/20 18:59 06:59 18:59 Intake Total 520 1170 10 Output Total 610 670 30 Balance -90 500 -20 Weight 110.4 kg Intake: IV 220 140 10 0.9 220 140 10 Intake, IV Titration 250 Amount Heparin Sod,Pork in 0.45% 250 NaCl 25,000 unit In 0.45 % NaCl 1 250ml.bag @ 8. 803 UNITS/KG/HR 10 mls/hr IV .Q24H [facility] Rx#: [id number] Oral 300 780 Output: Urine 610 670 30 Other: Voiding Method Indwelling Catheter Indwelling Catheter ABP, PAP, CO, CI - Last Documented Arterial Blood Pressure 114/53 - Constitutional General appearance: Present: no acute distress - Neck Neck: Absent: lymphadenopathy - Respiratory Respiratory: bilateral: diminished - Cardiovascular Rhythm: irregularly irregular Heart sounds: normal: S1, S2 Abnormal Heart Sounds: Absent: S3 Gallop - Gastrointestinal General gastrointestinal: Present: soft. Absent: tenderness - Neurologic Neurologic: Absent: CNII-XII intact - Labs CBC & Chem 7: 08/17/20 04:45 08/17/20 04:45 Labs: Abnormal Lab Results - Last 24 Hours (Table) 08/16/20 08/16/20 08/16/20 Range/Units 11:55 16:58 20:05 WBC (3.8-10.6) k/uL RBC (3.80-5.40) m/uL Hgb (11.4-16.0) gm/dL Hct (34.0-46.0) % APTT (22.0-30.0) sec Sodium (137-145) mmol/L BUN (7-17) mg/dL Creatinine (0.52-1.04) mg/dL Glucose (74-99) mg/dL POC Glucose (mg/dL) 288 H 251 H 243 H (75-99) mg/dL Total Protein (6.3-8.2) g/dL Albumin (3.5-5.0) g/dL 08/17/20 08/17/20 08/17/20 Range/Units 04:45 04:45 04:45 WBC 15.0 H (3.8-10.6) k/uL RBC 3.17 L (3.80-5.40) m/uL Hgb 9.8 L (11.4-16.0) gm/dL Hct 28.9 L (34.0-46.0) % APTT 48.5 H (22.0-30.0) sec Sodium 133 L (137-145) mmol/L BUN 31 H (7-17) mg/dL Creatinine 1.22 H (0.52-1.04) mg/dL Glucose 125 H (74-99) mg/dL POC Glucose (mg/dL) (75-99) mg/dL Total Protein 5.7 L (6.3-8.2) g/dL Albumin 2.9 L (3.5-5.0) g/dL 08/17/20 Range/Units 07:02 WBC (3.8-10.6) k/uL RBC (3.80-5.40) m/uL Hgb (11.4-16.0) gm/dL Hct (34.0-46.0) % APTT (22.0-30.0) sec Sodium (137-145) mmol/L BUN (7-17) mg/dL Creatinine (0.52-1.04) mg/dL Glucose (74-99) mg/dL POC Glucose (mg/dL) 138 H (75-99) mg/dL Total Protein (6.3-8.2) g/dL Albumin (3.5-5.0) g/dL Microbiology - Last 24 Hours (Table) 08/13/20 21:35 Blood Culture - Preliminary Blood No Growth after 72 hours 08/15/20 09:40 Urine Culture - Final Urine,Catheterized 08/14/20 07:30 Gram Stain - Final Sputum Sputum Culture - Final Assessment and Plan (1) Tachyarrhythmia Current Visit: Yes Status: Acute Code(s): R00.0 - TACHYCARDIA, UNSPECIFIED SNOMED Code(s): 8169451 (2) Diabetes Current Visit: No Status: Acute Code(s): E11.9 - TYPE 2 DIABETES MELLITUS WITHOUT COMPLICATIONS SNOMED Code(s): 75521123 (3) Atrial fibrillation Current Visit: Yes Status: Acute Code(s): I48.91 - UNSPECIFIED ATRIAL FIBRILLATION SNOMED Code(s): 09975879 (4) Pulmonary edema Current Visit: Yes Status: Acute Code(s): J81.1 - CHRONIC PULMONARY EDEMA SNOMED Code(s): 16648595 (5) Leg ulcer, left Current Visit: Yes Status: Acute Code(s): L97.929 - NON-PRS CHRONIC ULC UNSP PRT OF L LOW LEG W UNSP SEVERITY SNOMED Code(s): 93534549 Plan: Continue current regimen of treatment. Metoprolol has been increased. Appreciate multiple consultants input. Check CBC and CMP in a.m. Await AICD and probable EPS study. Spoke with siebel architect briefly This morning.
[2020-08-17] MEDS ORDERED: METOPROLOL SUCCINATE (ER) 50 MG TAB.ER.24H PO STA (08:41)
--- NOTE | 2020-08-17 09:34 | P.PN ---
Subjective Patient is seen in follow for acute kidney injury. Renal function improving. Sitting up in chair. Denies chest pain or shortness of breath. On 3Lnasal cannula. Maintained on IV Lasix. Nonoliguric. No active complaints. Vital signs are stable. HEENT: On nasal cannula. LUNGS: Breath sounds decreased. HEART: Rate and Rhythm are regular. ABDOMEN: Soft, no distention. EXTREMITITES: Trace edema. Objective - Vital Signs Vital signs: Vital Signs Temp 98.6 F 08/17/20 08:00 Pulse 101 H 08/17/20 09:00 Resp 19 08/17/20 09:00 BP 101/53 08/17/20 07:00 Pulse Ox 97 08/17/20 09:00 Intake & Output 08/16/20 08/17/20 08/17/20 18:59 06:59 18:59 Intake Total 520 1170 20 Output Total 610 670 140 Balance -90 500 -120 Weight 110.4 kg Intake: IV 220 140 20 0.9 220 140 20 Intake, IV Titration 250 Amount Heparin Sod,Pork in 0.45% 250 NaCl 25,000 unit In 0.45 % NaCl 1 250ml.bag @ 8. 803 UNITS/KG/HR 10 mls/hr IV .Q24H [facility] Rx#: [id number] Oral 300 780 Output: Urine 610 670 140 Other: Voiding Method Indwelling Catheter Indwelling Catheter ABP, PAP, CO, CI - Last Documented Arterial Blood Pressure 97/44 - Labs CBC & Chem 7: 08/17/20 04:45 08/17/20 04:45 Labs: Abnormal Lab Results - Last 24 Hours (Table) 08/16/20 08/16/20 08/16/20 Range/Units 11:55 16:58 20:05 WBC (3.8-10.6) k/uL RBC (3.80-5.40) m/uL Hgb (11.4-16.0) gm/dL Hct (34.0-46.0) % APTT (22.0-30.0) sec Sodium (137-145) mmol/L BUN (7-17) mg/dL Creatinine (0.52-1.04) mg/dL Glucose (74-99) mg/dL POC Glucose (mg/dL) 288 H 251 H 243 H (75-99) mg/dL Total Protein (6.3-8.2) g/dL Albumin (3.5-5.0) g/dL 08/17/20 08/17/20 08/17/20 Range/Units 04:45 04:45 04:45 WBC 15.0 H (3.8-10.6) k/uL RBC 3.17 L (3.80-5.40) m/uL Hgb 9.8 L (11.4-16.0) gm/dL Hct 28.9 L (34.0-46.0) % APTT 48.5 H (22.0-30.0) sec Sodium 133 L (137-145) mmol/L BUN 31 H (7-17) mg/dL Creatinine 1.22 H (0.52-1.04) mg/dL Glucose 125 H (74-99) mg/dL POC Glucose (mg/dL) (75-99) mg/dL Total Protein 5.7 L (6.3-8.2) g/dL Albumin 2.9 L (3.5-5.0) g/dL 08/17/20 Range/Units 07:02 WBC (3.8-10.6) k/uL RBC (3.80-5.40) m/uL Hgb (11.4-16.0) gm/dL Hct (34.0-46.0) % APTT (22.0-30.0) sec Sodium (137-145) mmol/L BUN (7-17) mg/dL Creatinine (0.52-1.04) mg/dL Glucose (74-99) mg/dL POC Glucose (mg/dL) 138 H (75-99) mg/dL Total Protein (6.3-8.2) g/dL Albumin (3.5-5.0) g/dL Microbiology - Last 24 Hours (Table) 08/13/20 21:35 Blood Culture - Preliminary Blood No Growth after 72 hours 08/15/20 09:40 Urine Culture - Final Urine,Catheterized 08/14/20 07:30 Gram Stain - Final Sputum Sputum Culture - Final Assessment and Plan Plan: Assessment: 1. Acute kidney injury secondary to ATN secondary to cardiorenal syndrome and hemodynamic instability. Renal function better. Creatinine 1.22 today. Baseline creatinine near 1. No hydronephrosis and kidney ultrasound. 2. V. tach maintained on amiodarone. 3. History of A. fib. 4. Acute hypoxic respiratory failure. 5. Acute on chronic systolic CHF with ejection fraction of 20-25% with moderate to severe mitral regurgitation, tricuspid regurgitation and moderate pulmonary hypertension. 6. Diabetes mellitus. 7. Metabolic acidosis secondary to acute kidney injury. Resolved. Plan: Maintain IV Lasix - can likely transition to oral in the next 24-48 hours. Encourage oral intake. Continue to monitor renal function and urine output. Avoid nephrotoxins. Cardiac catheterization on hold for now.
--- NOTE | 2020-08-17 09:53 | P.PN ---
Subjective Progress Note Date: 08/17/20 74-year-old female patient, known history of cardiac disease including CAD, previous MN, previous history of chronic atrial fibrillation, diabetes mellitus whereas been also infected and recovered from COVID-19 back in May 2020 and she is currently being treated for a stage III right lower extremity wound being treated at [facility] and the patient was discharged recently home. The patient was brought into the hospital as the patient was experiencing some palpitations at home. EMS came to the scene and the patient was found to have a wide complex tachycardia consistent with V. tach. In the emergency department, the patient was given a shock and the patient converted to atrial fibrillation with a controlled rate. She was in acute pulmonary edema. She was hypoxic. She was unresponsive. At that point the patient was intubated and placed on a mechanical ventilator. She is currently sedated with propofol and she is calm and comfortable. Probable resolving at 20 mg/kg per minute. She is on assist control mode at the rate of 26 and a tidal volume of 400 and FiO2 of 70% with a PEEP of 8. Peak air pressures 34 static pressure of 27. FiO2 was dropped down to 50%. Chest x-ray is showing some improvement in the bilateral pulmonary edema compared to yesterday. ET tube is high in the trachea and is to be repositioned. As stated, the patient is currently on no pressors. The morning blood gases showed a pH of 7.47 with a pCO2 of 37 and pO2 of 241 and this was on FiO2 of 100%. The white cell count at 16.3. The patient's lactic acid level is at 2.8. Creatinine was up to 2.0 to consistent with an acute kidney injury. Her troponin was 0.80. The patient's proBNP level is 3940. Rest of the blood work and x-rays shows a potassium level of 5.0 with a creatinine of 2.02 and a serum bicarb of 20. Bedside echocardiogram was done and the preliminary report is consistent with severe cardiomyopathy with an ejection fraction of less than 20%. On today's evaluation of 08/15/2020, the patient is being seen for a follow-up. As stated earlier, the patient has history of cardiac disease, COPD and chronic A. fib and the patient presented with wide complex tachycardia/V. tach. She is currently intubated on a mechanical ventilator. Intubation was done because of an acute pulmonary edema. On her echocardiogram, the patient was found to have an ejection fraction of 20-25% and was consistent with systolic heart failure. She has some diastolic filling abnormality. She also has no evidence of aortic disease, moderate to severe mitral regurgitation, [id number] pulmonary hypertension with a PA pressure of 39. The patient currently is in a Hx fibril lation rhythm. Amiodarone is still running at 0.5 mg per minute and this needs to be switched to oral maintenance. She is on IV heparin for now as the patient was having some issues with acute kidney injury and lines had to be established. Yesterday, triple lumen catheter was inserted in the left IJ. The CVP currently is at 11. The chest x-ray from today there is evidence of cardiomegaly, bilateral pleural effusions, interstitial edema, triple lumen cath in the left IJ, ET tube is in a good location as she was pushed and the lip line of 23. OG tube is also in place. The patient remains on mechanical ventilator. This morning she is on a assist-control of 16 which was dropped down with a tidal volume of 400 and FiO2 of 50% with a PEEP of 6. Morning blood gases that was done on a PEEP of 8 showed a pH of 7.58 with a pCO2 of 30 and pO2 of 139. This was also done at the rate of 26 the patient is still being diuresed with IV Lasix. She is receiving Lasix 40 mg IV every 12 hours. Creatinine is down to 1.8. Urine output is in order of 100 mL an hour and the neck fluid balance over the past 24 hours has been -6 99 mL. Ultrasound the kidney was done and it showed no evidence of any hydronephrosis. She is afebrile. Currently she is on no pressors. She is sedated with propofol which is running at 50 mcg/kg per minute. 08/16/2020, the patient is extubated. After successfully diuresing the patient, the patient was weaned off the sedation, she was able to give us a good weaning parameters and good spontaneous breathing trial and following that she was extubated to nasal cannula and this morning she is sitting up on a chair and she is on oxygen at 4 L which was later dropped down to 2 L nasal cannula. The chest x-ray from today is showing interval removal of the orotracheal tube. There is also cardiomegaly. There is also small bilateral pleural effusions. There is also interstitial edema which is essentially improving. Lung volumes are still. The patient is currently in atrial fibrillation and the rate is somewhere between 100-120. The patient is currently on amiodarone 400 mg by mouth twice a day. Lopressor dose was adjusted to 50 mg by mouth daily XL and the patient was started on Aldactone 25 mg by mouth daily as of yesterday and she was also started on lisinopril 5 mg. She is still being diuresed with Lasix receiving a dose of 40 mg IV every 12 hours. As mentioned earlier, she has impaired ejection fraction with systolic heart failure and ejection fraction of 20-25% and mild pulmonary hypertension. Her current CVP is around 8. The over all fluid balance is -2.9 L over the past 24 hours and the patient has had a hours a negative fluid balance again. Electrolytes from today shows a potassium level of 4.2 and a creatinine is at 1.3 which is essentially improved compared to yesterday and the renal function continues to improve. In terms of her abnormal UA, the urine cultures still pending. Blood cultures of been negative and the patient is currently on IV Rocephin as an empiric antibiotic coverage. She is on Levemir insulin 10 units along with a sliding scale coverage and blood sugars are being monitored. No other significant events otherwise for now. She is off sedation. She is awake and alert. She'll be advanced on her diet and currently she is on diabetic carb Consistent diet. 08/17/2020, the patient remains extubated and currently she is on oxygen at 3 L., Comfortable and she is sitting up on a chair. She is on diuretics and she is currently on Lasix 40 mg by mouth IV twice a day and Aldactone 25 mg by mouth daily. She remains in a negative fluid balance. Lasix was held yesterday in consultation for cardiac catheterization. I was later on the form that the patient had a cardiac catheterization last year and her coronaries were essentially normal. No plans to do a cardiac catheterization Lasix was restarted. She is headed towards a negative fluid balance for now. The plan is to consider an AICD placement and the patient was seen by Dr. Gordon today. Otherwise, her cardiac rhythm is atrial fibrillation the patient remains on IV heparin for now. No long-term anticoagulation until a decision is made regarding AICD placement. She remains on IV Rocephin and urine cultures are negative for now. The white cell count today is at 15 and creatinine is at 1.2 which is obviously improving as the patient had a cardiorenal factors and he continues to have improved with a creatinine. She is on Levemir insulin running at 16 units and her dose was adjusted today because of ongoing hyperglycemia. Objective - Vital Signs Vital signs: Vital Signs Temp 98.6 F 08/17/20 08:00 Pulse 101 H 08/17/20 09:00 Resp 19 08/17/20 09:00 BP 101/53 08/17/20 07:00 Pulse Ox 97 08/17/20 09:00 Intake & Output 08/16/20 08/17/20 08/17/20 18:59 06:59 18:59 Intake Total 520 1170 20 Output Total 610 670 140 Balance -90 500 -120 Weight 110.4 kg Intake: IV 220 140 20 0.9 220 140 20 Intake, IV Titration 250 Amount Heparin Sod,Pork in 0.45% 250 NaCl 25,000 unit In 0.45 % NaCl 1 250ml.bag @ 8. 803 UNITS/KG/HR 10 mls/hr IV .Q24H [facility] Rx#: [id number] Oral 300 780 Output: Urine 610 670 140 Other: Voiding Method Indwelling Catheter Indwelling Catheter ABP, PAP, CO, CI - Last Documented Arterial Blood Pressure 97/44 - Exam Gen. appearance, calm and comfortable, obese, and alert and currently on 3L of oxygen by nasal cannula Head exam was generally normal. There was no scleral icterus or corneal arcus. Mucous membranes were moist. Neck was supple and without jugular venous distension, thyromegaly, or carotid bruits. Carotids were easily palpable bilaterally. There was no adenopathy. O rogastric and orotracheal tube are both in place Lungs sounds are diminished in lung bases bilaterally Heart sounds are irregular, rate is controlled for now, irregular S1-S2 consistent with atrial fibrillation. No cervical murmurs appreciated. Overall heart sounds are distant. Abdominal exam revealed normal bowel sounds. The abdomen was soft, non-tender, and without masses, organomegaly, or appreciable enlargement of the abdominal aorta. Examination of the extremities revealed diminished pulses in the radial, femoral and pedal pulses. There was no cyanosis, clubbing or edema. Examination of the skin shows a stage III wound in the right lower extremity, lateral leg and the base of the wound is dry clean and intact at this point in time and there is no purulent discharge and there is no surrounding cellulitis. Neurologically the patient sedated and the patient is calm and comfortable. - Labs CBC & Chem 7: 08/17/20 04:45 08/17/20 04:45 Labs: Abnormal Lab Results - Last 24 Hours (Table) 08/16/20 08/16/20 08/16/20 Range/Units 11:55 16:58 20:05 WBC (3.8-10.6) k/uL RBC (3.80-5.40) m/uL Hgb (11.4-16.0) gm/dL Hct (34.0-46.0) % APTT (22.0-30.0) sec Sodium (137-145) mmol/L BUN (7-17) mg/dL Creatinine (0.52-1.04) mg/dL Glucose (74-99) mg/dL POC Glucose (mg/dL) 288 H 251 H 243 H (75-99) mg/dL Total Protein (6.3-8.2) g/dL Albumin (3.5-5.0) g/dL 08/17/20 08/17/20 08/17/20 Range/Units 04:45 04:45 04:45 WBC 15.0 H (3.8-10.6) k/uL RBC 3.17 L (3.80-5.40) m/uL Hgb 9.8 L (11.4-16.0) gm/dL Hct 28.9 L (34.0-46.0) % APTT 48.5 H (22.0-30.0) sec Sodium 133 L (137-145) mmol/L BUN 31 H (7-17) mg/dL Creatinine 1.22 H (0.52-1.04) mg/dL Glucose 125 H (74-99) mg/dL POC Glucose (mg/dL) (75-99) mg/dL Total Protein 5.7 L (6.3-8.2) g/dL Albumin 2.9 L (3.5-5.0) g/dL 08/17/20 Range/Units 07:02 WBC (3.8-10.6) k/uL RBC (3.80-5.40) m/uL Hgb (11.4-16.0) gm/dL Hct (34.0-46.0) % APTT (22.0-30.0) sec Sodium (137-145) mmol/L BUN (7-17) mg/dL Creatinine (0.52-1.04) mg/dL Glucose (74-99) mg/dL POC Glucose (mg/dL) 138 H (75-99) mg/dL Total Protein (6.3-8.2) g/dL Albumin (3.5-5.0) g/dL Microbiology - Last 24 Hours (Table) 08/13/20 21:35 Blood Culture - Preliminary Blood No Growth after 72 hours 08/15/20 09:40 Urine Culture - Final Urine,Catheterized 08/14/20 07:30 Gram Stain - Final Sputum Sputum Culture - Final Assessment and Plan Plan: 1 acute hypoxic respiratory failure/pulmonary edema, extubated to nasal cannula. She is hemodynamically stable at this point in time. 2 sustained V. tach, post cardioversion and the patient's current rhythm is atrial fibrillation with a controlled rate, the patient remains on amiodarone 400 mg by mouth twice a day in combination with metoprolol XL 50 mg by mouth daily and the cardiac rhythm is atrial fibrillation. No further episodes of V. tach and the patient had a cardiac catheterization left ear that came back normal coronaries and the patient is being considered for AICD 3 cardiomyopathy with an ejection fraction of less than 20%-25% along with moderate to severe mitral regurgitation, likely of a new onset thing a cardiac catheterization, rule out ischemic cardiomyopathy, considered AICD 4 chronic atrial fibrillation maintained on a combination of amiodarone, metoprolol and IV heparin for now pending cardiac catheterization 5 coronary artery disease appears myocardial infarction 6 previous history of DVT 7 hyperlipidemia 8 macular degeneration 9 remote history of CVA 10 acute kidney injury with oligoria, , creatinine is improving 11 metabolic acidosis secondary to acute kidney injury , resolved 12 COVID-19 infection treated and subsequent recovery back to May 2020 13 stage III right lower extremity wound without any signs of infection or cellulitis 14 suspected UTI cultures are negative and the patient is completing a 5 day course of Rocephin, no signs of any acute infection at this point in time. Plan 02 2 L of oxygen by nasal cannula. IV fluids to KVO Continue IV Lasix 40 mg every 12 hours Continue oral amiodarone 400 mg 2 times a day and Toprol 100 mg XL, and the patient has been also started on lisinopril 5 mg by mouth daily regarding her cardiomyopathy. IV heparin Dr. Gordon regarding acid replacement Levemir insulin dose to be dropped down to 5 units daily IV Rocephin 1 g every 24 hours pending cultures Possible ICD placement Levemir insulin doses been adjusted Advance diet as tolerated Keep in ICU for now until seen by Dr. Gordon
--- NOTE | 2020-08-17 11:32 | P.PN ---
Subjective Progress Note Date: 08/17/20 HISTORY OF PRESENT ILLNESS: 74 year old female who is admitted to the hospital secondary sustained V-tach requiring defibrillation. Patient examined this morning in the ICU. She remains intubated. Patient remains on IV heparin. Telemetry reveals afib with controlled venticular rates. She is also on IV amio. She is not requiring vasopressor support. Echocardiogram completed revealed ejection fraction 20-25%, severe global hypokinesis of LV, moderate to severe mitral regurgitation, moderate tricuspid regurgitation, and mild to moderate pulmonary hypertension. 08/16/2020 Patient examined this morning at the bedside. She remains in the ICU. Patient was extubated yesterday. The patient is on nasal cannula with oxygen saturations greater than 92%. She denies chest pain or pressure. She denies shortness of breath. Patient remains in atrial fibrillation on telemetry. Heart rate this morning is in the 120s. However patient just got up to the chair right before examination. Patient underwent cardiac catheterization in April 2019 at [facility] with Dr. Guillen revealing normal coronary arteries. 08/17/2020 Patient examined this morning in the intensive care unit. Patient is sitting up in a chair. She denies chest pain or pressure. Denies shortness of breath. She reports chronic left shoulder pain. Telemetry reveals atrial fibrillation with a heart rate ranging between 90 and 115 at the time of examination. She remains on IV heparin. PHYSICAL EXAM: VITAL SIGNS: Reviewed. GENERAL: Well-developed in no acute distress. NECK: Supple. No JVD or thyromegaly LUNGS: Respirations even and unlabored. Lungs diminished bilaterally. HEART: Mildly tachycardic. Irregular rate and rhythm. S1 and S2 heard. Systolic murmur noted. EXTREMITIES: Normal range of motion. No clubbing or cyanosis. Peripheral pulses intact. 1-2+ bilateral lower extremity edema ASSESSMENT: Acute hypoxic respiratory failure requiring mechanical ventilation Sustained ventricular tachycardia requiring defibrillation Cardiomyopathy, nonischemic, EF 20-25%, patient underwent cardiac cath in 2019 revealing normal coronary arteries Coronary artery disease, per chart, now ruled out as patient had cardiac cath in 2019 revealing normal coronary arteries Chronic persistent atrial fibrillation Acute systolic heart failure Acute kidney injury Diabetes Mellitus Hyperlipidemia PLAN: Continue ICU management per pulmonary Continue oral amio, aldactone, lisinopril Increase toprol XL to 100ng daily Continue IV lasix. Management per nephrology Dr. Pete consulted for AICD placement Continue IV heparin for now until patient evaluated by Dr. Pete Further recommendations pending patient course Nurse practitioner note has been reviewed by physician. Signing provider agrees with the documented findings, assessment, and plan of care. Objective - Vital Signs Vital signs: Vital Signs Temp 98.6 F 08/17/20 08:00 Pulse 89 08/17/20 11:19 Resp 23 08/17/20 11:00 BP 113/61 08/17/20 11:00 Pulse Ox 93 L 08/17/20 11:06 Intake & Output 08/16/20 08/17/20 08/17/20 18:59 06:59 18:59 Intake Total 520 1170 30 Output Total 610 670 250 Balance -90 500 -220 Weight 110.4 kg Intake: IV 220 140 30 0.9 220 140 30 Intake, IV Titration 250 Amount Heparin Sod,Pork in 0.45% 250 NaCl 25,000 unit In 0.45 % NaCl 1 250ml.bag @ 8. 803 UNITS/KG/HR 10 mls/hr IV .Q24H [facility] Rx#: [id number] Oral 300 780 Output: Urine 610 670 250 Other: Voiding Method Indwelling Catheter Indwelling Catheter Indwelling Catheter ABP, PAP, CO, CI - Last Documented Arterial Blood Pressure 108/48 - Labs CBC & Chem 7: 08/17/20 04:45 08/17/20 04:45 Labs: Abnormal Lab Results - Last 24 Hours (Table) 08/16/20 08/16/20 08/16/20 Range/Units 11:55 16:58 20:05 WBC (3.8-10.6) k/uL RBC (3.80-5.40) m/uL Hgb (11.4-16.0) gm/dL Hct (34.0-46.0) % APTT (22.0-30.0) sec Sodium (137-145) mmol/L BUN (7-17) mg/dL Creatinine (0.52-1.04) mg/dL Glucose (74-99) mg/dL POC Glucose (mg/dL) 288 H 251 H 243 H (75-99) mg/dL Total Protein (6.3-8.2) g/dL Albumin (3.5-5.0) g/dL 0508/17/20 08/17/20 Range/Units 04:45 04:45 04:45 WBC 15.0 H (3.8-10.6) k/uL RBC 3.17 L (3.80-5.40) m/uL Hgb 9.8 L (11.4-16.0) gm/dL Hct 28.9 L (34.0-46.0) % APTT 48.5 H (22.0-30.0) sec Sodium 133 L (137-145) mmol/L BUN 31 H (7-17) mg/dL Creatinine 1.22 H (0.52-1.04) mg/dL Glucose 125 H (74-99) mg/dL POC Glucose (mg/dL) (75-99) mg/dL Total Protein 5.7 L (6.3-8.2) g/dL Albumin 2.9 L (3.5-5.0) g/dL 08/17/20 Range/Units 07:02 WBC (3.8-10.6) k/uL RBC (3.80-5.40) m/uL Hgb (11.4-16.0) gm/dL Hct (34.0-46.0) % APTT (22.0-30.0) sec Sodium (137-145) mmol/L BUN (7-17) mg/dL Creatinine (0.52-1.04) mg/dL Glucose (74-99) mg/dL POC Glucose (mg/dL) 138 H (75-99) mg/dL Total Protein (6.3-8.2) g/dL Albumin (3.5-5.0) g/dL Microbiology - Last 24 Hours (Table) 08/13/20 21:35 Blood Culture - Preliminary Blood No Growth after 72 hours 08/15/20 09:40 Urine Culture - Final Urine,Catheterized 08/14/20 07:30 Gram Stain - Final Sputum Sputum Culture - Final
[2020-08-17 11:35] LABS: Glucose,Whole Blood 170 mg/dL (75-99)
[2020-08-17 16:19] LABS: Glucose,Whole Blood 235 mg/dL (75-99)
[2020-08-17 19:44] LABS: Glucose,Whole Blood 204 mg/dL (75-99)
[2020-08-17] MEDS: ZOLPIDEM 5 MG TAB PO PRN (20:43)
[2020-08-18] MEDS: traMADol 50 MG TAB PO PRN ×4 (01:30→23:03)
[2020-08-18 04:51] LABS: Basophils # (A) 0.1 k/uL (0-0.2); Basophils % (A) 1 %; Eosinophils # (A) 0.5 k/uL (0-0.7); Eosinophils % (A) 4 %; HCT 27.3 % (34.0-46.0); HGB 9.2 gm/dL (11.4-16.0); Lymphocytes # (A) 1.4 k/uL (1.0-4.8); Lymphocytes % (A) 11 %; MCH 30.8 pg (25.0-35.0); MCHC 33.9 g/dL (31.0-37.0); MCV 90.8 fL (80.0-100.0); Mean Platelet Volume 7.6; Monocytes # (A) 1.1 k/uL (0-1.0); Monocytes % (A) 9 %; Neutrophils # (A) 9.1 k/uL (1.3-7.7); Neutrophils % (A) 74 %; Platelet Count 254 k/uL (150-450); RDW 15.4 % (11.5-15.5); WBC 12.4 k/uL (3.8-10.6)
[2020-08-18 05:25] LABS: Calcium 8.7 mg/dL (8.4-10.2); Potassium 3.9 mmol/L (3.5-5.1)
[2020-08-18 06:33] LABS: Glucose,Whole Blood 166 mg/dL (75-99)
[2020-08-18] MEDS: INSULIN ASPART (NovoLOG) 100 UNIT/ML VIAL SQ SCH ×4 (06:40→21:29)
[2020-08-18] MEDS: INSULIN DETEMIR (LEVEMIR) 100 UNIT/ML SYR SQ SCH (06:40)
--- NOTE | 2020-08-18 07:25 | XR ---
EXAMINATION TYPE: XR chest 1V portable DATE OF EXAM: 08/18/2020 COMPARISON: Chest x-ray 08/16/2020 HISTORY: Abnormal chest x-ray TECHNIQUE: Single frontal view of the chest is obtained. FINDINGS: Patchy densities present in the bilateral lungs, patient is likely kyphotic. There may be some improvement in aeration in the perihilar regions. Aorta is dense. Heart remains enlarged. Centra l venous catheter shows the distal tip coursing in a cephalad direction. No evident pneumothorax. Dif ficult to exclude effusion. IMPRESSION: There may be some improvement in aeration, volume status.
[2020-08-18] MEDS: IPRATROPIUM-ALBUTEROL 3 ML NEB INHALATION SCH ×4 (07:32→19:26)
--- NOTE | 2020-08-18 08:05 | P.PN ---
Subjective Principal diagnosis: Respiratory distress. The patient now off the ventilator but having significant tachycardia. This is a continuing progress note on a 74-year-old white female essentially admitted for respiratory failure and tachyarrhythmia. The patient is now Off the ventilator. Cardiology is anticipating AICD and EPS. The patient does not appear to be in respiratory distress at this time. No voiding difficulties. Tachycardia is noted Objective - Vital Signs Vital signs: Vital Signs Temp 97.8 F 08/18/20 04:00 Pulse 106 H 08/18/20 07:42 Resp 20 08/18/20 07:00 BP 113/61 08/17/20 19:00 Pulse Ox 97 08/18/20 07:00 Intake & Output 08/17/20 08/18/20 08/18/20 18:59 06:59 18:59 Intake Total 350 366.85 Output Total 725 445 Balance -375 -78.15 Weight 110.4 kg 111.6 kg Intake: IV 110 130 0.9 110 130 Intake, IV Titration 236.85 Amount Heparin Sod,Pork in 0.45% 236.85 NaCl 25,000 unit In 0.45 % NaCl 1 250ml.bag @ 8. 803 UNITS/KG/HR 10 mls/hr IV .Q24H [facility] Rx#: [id number] Oral 240 Output: Urine 725 445 Other: Voiding Method Indwelling Catheter Indwelling Catheter ABP, PAP, CO, CI - Last Documented Arterial Blood Pressure 113/48 - Constitutional General appearance: Present: obese - EENT Eyes: Absent: abnormal pupil - Neck Neck: Absent: lymphadenopathy - Respiratory Respiratory: bilateral: diminished - Cardiovascular Heart rate: 110 Rhythm: irregularly irregular Abnormal Heart Sounds: Absent: S3 Gallop - Gastrointestinal General gastrointestinal: Present: soft. Absent: tenderness - Integumentary Integumentary: Present: normal - Neurologic Neurologic: Absent: focal deficits - Labs CBC & Chem 7: 08/18/20 04:27 08/18/20 04:27 Labs: Abnormal Lab Results - Last 24 Hours (Table) 08/17/20 08/17/20 08/17/20 Range/Units 11:34 16:18 19:42 WBC (3.8-10.6) k/uL RBC (3.80-5.40) m/uL Hgb (11.4-16.0) gm/dL Hct (34.0-46.0) % Neutrophils # (1.3-7.7) k/uL Monocytes # (0-1.0) k/uL APTT (22.0-30.0) sec Sodium (137-145) mmol/L Chloride (98-107) mmol/L BUN (7-17) mg/dL Creatinine (0.52-1.04) mg/dL Glucose (74-99) mg/dL POC Glucose (mg/dL) 170 H 235 H 204 H (75-99) mg/dL 08/18/20 08/18/20 08/18/20 Range/Units 04:27 04:27 04:27 WBC 12.4 H (3.8-10.6) k/uL RBC 3.00 L (3.80-5.40) m/uL Hgb 9.2 L (11.4-16.0) gm/dL Hct 27.3 L (34.0-46.0) % Neutrophils # 9.1 H (1.3-7.7) k/uL Monocytes # 1.1 H (0-1.0) k/uL APTT 45.2 H (22.0-30.0) sec Sodium 129 L (137-145) mmol/L Chloride 97 L (98-107) mmol/L BUN 32 H (7-17) mg/dL Creatinine 1.23 H (0.52-1.04) mg/dL Glucose 166 H (74-99) mg/dL POC Glucose (mg/dL) (75-99) mg/dL 08/18/20 Range/Units 06:32 WBC (3.8-10.6) k/uL RBC (3.80-5.40) m/uL Hgb (11.4-16.0) gm/dL Hct (34.0-46.0) % Neutrophils # (1.3-7.7) k/uL Monocytes # (0-1.0) k/uL APTT (22.0-30.0) sec Sodium (137-145) mmol/L Chloride (98-107) mmol/L BUN (7-17) mg/dL Creatinine (0.52-1.04) mg/dL Glucose (74-99) mg/dL POC Glucose (mg/dL) 166 H (75-99) mg/dL Microbiology - Last 24 Hours (Table) 08/13/20 21:35 Blood Culture - Preliminary Blood No Growth after 96 hours Assessment and Plan (1) Tachyarrhythmia Current Visit: Yes Status: Acute Code(s): R00.0 - TACHYCARDIA, UNSPECIFIED SNOMED Code(s): 6484570 (2) Diabetes Current Visit: No Status: Acute Code(s): E11.9 - TYPE 2 DIABETES MELLITUS WITHOUT COMPLICATIONS SNOMED Code(s): 54579347 (3) Atrial fibrillation Current Visit: Yes Status: Acute Code(s): I48.91 - UNSPECIFIED ATRIAL FIBRILLATION SNOMED Code(s): 52385806 (4) Pulmonary edema Current Visit: Yes Status: Acute Code(s): J81.1 - CHRONIC PULMONARY EDEMA SNOMED Code(s): 17393823 (5) Leg ulcer, left Current Visit: Yes Status: Acute Code(s): L97.929 - NON-PRS CHRONIC ULC UNSP PRT OF L LOW LEG W UNSP SEVERITY SNOMED Code(s): 37738817 Plan: Continue current regimen of treatment. Metoprolol has been increased. Appreciate multiple consultants input. Check CBC and CMP in a.m. Anticipate AICD. Spoke with marketing operations analyst briefly This morning.
--- NOTE | 2020-08-18 08:29 | P.PN ---
Subjective Progress Note Date: 08/18/20 Principal diagnosis: Cardiopulmonary arrest This is a pleasant 74-year-old female patient with multiple comorbid conditions was admitted to the hospital with a witnessed cardiac arrest. She was found to be in wide-complex tachycardia seems to be concerning for V. tach. She was shocked and she was brought back into atrial fibrillation was controlled heart rate which is her baseline rhythm. She was started on amiodarone IV and subsequently she was converted to amiodarone by mouth. She was seen this morning. She is very comfortable sitting in the chair not in any pain or any distress be she has been maintaining atrial fibrillation with relatively controlled heart rate. The blood pressure is marginal. She is on amiodarone by mouth. She is also on heparin IV. I'm going to discuss her case was Dr. Pete regarding an AICD with or without an EP study. From the ca rdiovascular standpoint of view, the patient can be transferred to the floor. She still have crackles on examination but she is on Lasix 40 mg IV twice a day which I would advise to continue for the next 24 hours. We'll continue monitor the kidney function and electrolytes. She is also on heparin IV for now and would consider switch her into oral anticoagulation if she is not going to have any AICD during this admission. The echo showed severe cardiomyopathy. She is on maximize medical treatment at this point. Objective - Vital Signs Vital signs: Vital Signs Temp 97.8 F 08/18/20 04:00 Pulse 106 H 08/18/20 07:42 Resp 20 08/18/20 07:00 BP 113/61 08/17/20 19:00 Pulse Ox 97 08/18/20 07:00 Intake & Output 08/17/20 08/18/20 08/18/20 18:59 06:59 18:59 Intake Total 350 366.85 Output Total 725 445 Balance -375 -78.15 Weight 110.4 kg 111.6 kg Intake: IV 110 130 0.9 110 130 Intake, IV Titration 236.85 Amount Heparin Sod,Pork in 0.45% 236.85 NaCl 25,000 unit In 0.45 % NaCl 1 250ml.bag @ 8. 803 UNITS/KG/HR 10 mls/hr IV .Q24H [facility] Rx#: [id number] Oral 240 Output: Urine 725 445 Other: Voiding Method Indwelling Catheter Indwelling Catheter ABP, PAP, CO, CI - Last Documented Arterial Blood Pressure 113/48 - Constitutional General appearance: Present: no acute distress - Respiratory Respiratory: bilateral: diminished - Cardiovascular Rhythm: irregularly irregular Heart sounds: normal: S1, S2 - Labs CBC & Chem 7: 08/18/20 04:27 08/18/20 04:27 Labs: Abnormal Lab Results - Last 24 Hours (Table) 08/17/20 08/17/20 08/17/20 Range/Units 11:34 16:18 19:42 WBC (3.8-10.6) k/uL RBC (3.80-5.40) m/uL Hgb (11.4-16.0) gm/dL Hct (34.0-46.0) % Neutrophils # (1.3-7.7) k/uL Monocytes # (0-1.0) k/uL APTT (22.0-30.0) sec Sodium (137-145) mmol/L Chloride (98-107) mmol/L BUN (7-17) mg/dL Creatinine (0.52-1.04) mg/dL Glucose (74-99) mg/dL POC Glucose (mg/dL) 170 H 235 H 204 H (75-99) mg/dL 08/18/20 08/18/20 08/18/20 Range/Units 04:27 04:27 04:27 WBC 12.4 H (3.8-10.6) k/uL RBC 3.00 L (3.80-5.40) m/uL Hgb 9.2 L (11.4-16.0) gm/dL Hct 27.3 L (34.0-46.0) % Neutrophils # 9.1 H (1.3-7.7) k/uL Monocytes # 1.1 H (0-1.0) k/uL APTT 45.2 H (22.0-30.0) sec Sodium 129 L (137-145) mmol/L Chloride 97 L (98-107) mmol/L BUN 32 H (7-17) mg/dL Creatinine 1.23 H (0.52-1.04) mg/dL Glucose 166 H (74-99) mg/dL POC Glucose (mg/dL) (75-99) mg/dL 08/18/20 Range/Units 06:32 WBC (3.8-10.6) k/uL RBC (3.80-5.40) m/uL Hgb (11.4-16.0) gm/dL Hct (34.0-46.0) % Neutrophils # (1.3-7.7) k/uL Monocytes # (0-1.0) k/uL APTT (22.0-30.0) sec Sodium (137-145) mmol/L Chloride (98-107) mmol/L BUN (7-17) mg/dL Creatinine (0.52-1.04) mg/dL Glucose (74-99) mg/dL POC Glucose (mg/dL) 166 H (75-99) mg/dL Microbiology - Last 24 Hours (Table) 08/13/20 21:35 Blood Culture - Preliminary Blood No Growth after 96 hours Assessment and Plan Assessment: Assessment #1 sustained ventricular tachycardia with LBBB morphology #2 severe cardiomyopathy, nonischemic #3 permanent atrial fibrillation #4 multiple comorbid conditions Plan #1 continue the current medical regimen #2 continue heparin IV and switched to oral anticoagulation if she is going to have any EP procedure #3 she is on maximize medical treatment for the cardiomyopathy #4 continue IV Lasix for additional 24 hours. She still congested on examination #5 monitor the kidney function and electrolytes #6 follow-up with the patient
[2020-08-18] MEDS: MAGNESIUM HYDROXIDE 2,400 MG/10 ML CUP PO PRN ×2 (08:32→17:05)
[2020-08-18] MEDS: METOPROLOL SUCCINATE (ER) 100 MG TAB.ER.24H PO SCH (08:33)
[2020-08-18] MEDS: AMIODARONE 200 MG TAB PO SCH ×2 (08:33→20:58)
[2020-08-18] MEDS: FUROSEMIDE 10 MG/ML 4 ML VIAL IV SCH ×2 (08:33→20:58)
[2020-08-18] MEDS: PANTOPRAZOLE 40 MG TABLET PO SCH (08:33)
[2020-08-18] MEDS: lisinopriL 5 MG TAB PO SCH (08:33)
[2020-08-18] MEDS: SPIRONOLACTONE 25 MG TAB PO SCH (08:33)
--- NOTE | 2020-08-18 09:26 | P.PN ---
Subjective Progress Note Date: 08/18/20 74-year-old female patient, known history of cardiac disease including CAD, previous IA, previous history of chronic atrial fibrillation, diabetes mellitus whereas been also infected and recovered from COVID-19 back in May 2020 and she is currently being treated for a stage III right lower extremity wound being treated at [facility] and the patient was discharged recently home. The patient was brought into the hospital as the patient was experiencing some palpitations at home. EMS came to the scene and the patient was found to have a wide complex tachycardia consistent with V. tach. In the emergency department, the patient was given a shock and the patient converted to atrial fibrillation with a controlled rate. She was in acute pulmonary edema. She was hypoxic. She was unresponsive. At that point the patient was intubated and placed on a mechanical ventilator. She is currently sedated with propofol and she is calm and comfortable. Probable resolving at 20 mg/kg per minute. She is on assist control mode at the rate of 26 and a tidal volume of 400 and FiO2 of 70% with a PEEP of 8. Peak air pressures 34 static pressure of 27. FiO2 was dropped down to 50%. Chest x-ray is showing some improvement in the bilateral pulmonary edema compared to yesterday. ET tube is high in the trachea and is to be repositioned. As stated, the patient is currently on no pressors. The morning blood gases showed a pH of 7.47 with a pCO2 of 37 and pO2 of 241 and this was on FiO2 of 100%. The white cell count at 16.3. The patient's lactic acid level is at 2.8. Creatinine was up to 2.0 to consistent with an acute kidney injury. Her troponin was 0.80. The patient's proBNP level is 3940. Rest of the blood work and x-rays shows a potassium level of 5.0 with a creatinine of 2.02 and a serum bicarb of 20. Bedside echocardiogram was done and the preliminary report is consistent with severe cardiomyopathy with an ejection fraction of less than 20%. On today's evaluation of 08/15/2020, the patient is being seen for a follow-up. As stated earlier, the patient has history of cardiac disease, COPD and chronic A. fib and the patient presented with wide complex tachycardia/V. tach. She is currently intubated on a mechanical ventilator. Intubation was done because of an acute pulmonary edema. On her echocardiogram, the patient was found to have an ejection fraction of 20-25% and was consistent with systolic heart failure. She has some diastolic filling abnormality. She also has no evidence of aortic disease, moderate to severe mitral regurgitation, [id number] pulmonary hypertension with a PA pressure of 39. The patient currently is in a Hx fibril lation rhythm. Amiodarone is still running at 0.5 mg per minute and this needs to be switched to oral maintenance. She is on IV heparin for now as the patient was having some issues with acute kidney injury and lines had to be established. Yesterday, triple lumen catheter was inserted in the left IJ. The CVP currently is at 11. The chest x-ray from today there is evidence of cardiomegaly, bilateral pleural effusions, interstitial edema, triple lumen cath in the left IJ, ET tube is in a good location as she was pushed and the lip line of 23. OG tube is also in place. The patient remains on mechanical ventilator. This morning she is on a assist-control of 16 which was dropped down with a tidal volume of 400 and FiO2 of 50% with a PEEP of 6. Morning blood gases that was done on a PEEP of 8 showed a pH of 7.58 with a pCO2 of 30 and pO2 of 139. This was also done at the rate of 26 the patient is still being diuresed with IV Lasix. She is receiving Lasix 40 mg IV every 12 hours. Creatinine is down to 1.8. Urine output is in order of 100 mL an hour and the neck fluid balance over the past 24 hours has been -6 99 mL. Ultrasound the kidney was done and it showed no evidence of any hydronephrosis. She is afebrile. Currently she is on no pressors. She is sedated with propofol which is running at 50 mcg/kg per minute. 08/16/2020, the patient is extubated. After successfully diuresing the patient, the patient was weaned off the sedation, she was able to give us a good weaning parameters and good spontaneous breathing trial and following that she was extubated to nasal cannula and this morning she is sitting up on a chair and she is on oxygen at 4 L which was later dropped down to 2 L nasal cannula. The chest x-ray from today is showing interval removal of the orotracheal tube. There is also cardiomegaly. There is also small bilateral pleural effusions. There is also interstitial edema which is essentially improving. Lung volumes are still. The patient is currently in atrial fibrillation and the rate is somewhere between 100-120. The patient is currently on amiodarone 400 mg by mouth twice a day. Lopressor dose was adjusted to 50 mg by mouth daily XL and the patient was started on Aldactone 25 mg by mouth daily as of yesterday and she was also started on lisinopril 5 mg. She is still being diuresed with Lasix receiving a dose of 40 mg IV every 12 hours. As mentioned earlier, she has impaired ejection fraction with systolic heart failure and ejection fraction of 20-25% and mild pulmonary hypertension. Her current CVP is around 8. The over all fluid balance is -2.9 L over the past 24 hours and the patient has had a hours a negative fluid balance again. Electrolytes from today shows a potassium level of 4.2 and a creatinine is at 1.3 which is essentially improved compared to yesterday and the renal function continues to improve. In terms of her abnormal UA, the urine cultures still pending. Blood cultures of been negative and the patient is currently on IV Rocephin as an empiric antibiotic coverage. She is on Levemir insulin 10 units along with a sliding scale coverage and blood sugars are being monitored. No other significant events otherwise for now. She is off sedation. She is awake and alert. She'll be advanced on her diet and currently she is on diabetic carb Consistent diet. 08/17/2020, the patient remains extubated and currently she is on oxygen at 3 L., Comfortable and she is sitting up on a chair. She is on diuretics and she is currently on Lasix 40 mg by mouth IV twice a day and Aldactone 25 mg by mouth daily. She remains in a negative fluid balance. Lasix was held yesterday in consultation for cardiac catheterization. I was later on the form that the patient had a cardiac catheterization last year and her coronaries were essentially normal. No plans to do a cardiac catheterization Lasix was restarted. She is headed towards a negative fluid balance for now. The plan is to consider an AICD placement and the patient was seen by Dr. Gordon today. Otherwise, her cardiac rhythm is atrial fibrillation the patient remains on IV heparin for now. No long-term anticoagulation until a decision is made regarding AICD placement. She remains on IV Rocephin and urine cultures are negative for now. The white cell count today is at 15 and creatinine is at 1.2 which is obviously improving as the patient had a cardiorenal factors and he continues to have improved with a creatinine. She is on Levemir insulin running at 16 units and her dose was adjusted today because of ongoing hyperglycemia. 08/18/2020, the patient remains extubated on 2 L of oxygen by nasal cannula. Doing well. No acute complaints. Diuresing well. She is in a negative fluid balance chest x-ray still showing some small lung volumes and atelectatic changes in lung bases and the patient has edema lower extremities bilaterally. She remains on Lasix 40 mg IV every 12 hours. She remains on Aldactone 25 mg by mouth daily. She remains on amiodarone orally and her cardiac rhythm remains a chair fibrillation and the patient remains on IV heparin. Metoprolol is also being utilized for rate control. Her renal function shows a creatinine of 1.23. She is on IV heparin with a therapeutic PTT. The patient is awaiting a final recommendation regarding an AICD placement. Awaiting a consultation from Dr. Gordon. No fever. No chills. Remains on IV Rocephin. Remains on Levemir insulin for blood sugar control. Her Levemir is currently running at 16 units along with his vascular coverage. No other significant events overnight. Objective - Vital Signs Vital signs: Vital Signs Temp 98.4 F 08/18/20 08:00 Pulse 96 08/18/20 09:00 Resp 23 08/18/20 09:00 BP 105/65 08/18/20 09:00 Pulse Ox 97 08/18/20 09:00 Intake & Output 08/17/20 08/18/20 08/18/20 18:59 06:59 18:59 Intake Total 350 366.85 300 Output Total 725 445 50 Balance -375 -78.15 250 Weight 110.4 kg 111.6 kg Intake: IV 110 130 10 0.9 110 130 10 Intake, IV Titration 236.85 50 Amount Heparin Sod,Pork in 0.45% 236.85 NaCl 25,000 unit In 0.45 % NaCl 1 250ml.bag @ 8. 803 UNITS/KG/HR 10 mls/hr IV .Q[facility]H [facility] Rx#: [id number] cefTRIAXone 1 gm In 50 Sodium Chloride 0.9% 50 ml @ 100 mls/hr IVPB Q24HR [facility] Rx#:[id number] Oral 240 240 Output: Urine 725 445 50 Other: Voiding Method Indwelling Catheter Indwelling Catheter ABP, PAP, CO, CI - Last Documented Arterial Blood Pressure 120/49 - Exam Gen. appearance, calm and comfortable, obese, and alert and currently on 2L of oxygen by nasal cannula Head exam was generally normal. There was no scleral icterus or corneal arcus. Mucous membranes were moist. Neck was supple and without jugular venous distension, thyromegaly, or carotid bruits. Carotids were easily palpable bilaterally. There was no adenopathy. Orogastric and orotracheal tube are both in place Lungs sounds are diminished in lung bases bilaterally Heart sounds are irregular, rate is controlled for now, irregular S1-S2 consistent with atrial fibrillation. No cervical murmurs appreciated. Overall heart sounds are distant. Abdominal exam revealed normal bowel sounds. The abdomen was soft, non-tender, and without masses, organomegaly, or appreciable enlargement of the abdominal aorta. Examination of the extremities revealed diminished pulses in the radial, femoral and pedal pulses. There was no cyanosis, clubbing or edema. Examination of the skin shows a stage III wound in the right lower extremity, lateral leg and the base of the wound is dry clean and intact at this point in time and there is no purulent discharge and there is no surrounding cellulitis. Neurologically the patient sedated and the patient is calm and comfortable. - Labs CBC & Chem 7: 08/18/20 04:27 08/18/20 04:27 Labs: Abnormal Lab Results - Last 24 Hours (Table) 08/17/20 08/17/20 08/17/20 Range/Units 11:34 16:18 19:42 WBC (3.8-10.6) k/uL RBC (3.80-5.40) m/uL Hgb (11.4-16.0) gm/dL Hct (34.0-46.0) % Neutrophils # (1.3-7.7) k/uL Monocytes # (0-1.0) k/uL APTT (22.0-30.0) sec Sodium (137-145) mmol/L Chloride (98-107) mmol/L BUN (7-17) mg/dL Creatinine (0.52-1.04) mg/dL Glucose (74-99) mg/dL POC Glucose (mg/dL) 170 H 235 H 204 H (75-99) mg/dL 08/18/20 08/18/20 08/18/20 Range/Units 04:27 04:27 04:27 WBC 12.4 H (3.8-10.6) k/uL RBC 3.00 L (3.80-5.40) m/uL Hgb 9.2 L (11.4-16.0) gm/dL Hct 27.3 L (34.0-46.0) % Neutrophils # 9.1 H (1.3-7.7) k/uL Monocytes # 1.1 H (0-1.0) k/uL APTT 45.2 H (22.0-30.0) sec Sodium 129 L (137-145) mmol/L Chloride 97 L (98-107) mmol/L BUN 32 H (7-17) mg/dL Creatinine 1.23 H (0.52-1.04) mg/dL Glucose 166 H (74-99) mg/dL POC Glucose (mg/dL) (75-99) mg/dL 08/18/20 Range/Units 06:32 WBC (3.8-10.6) k/uL RBC (3.80-5.40) m/uL Hgb (11.4-16.0) gm/dL Hct (34.0-46.0) % Neutrophils # (1.3-7.7) k/uL Monocytes # (0-1.0) k/uL APTT (22.0-30.0) sec Sodium (137-145) mmol/L Chloride (98-107) mmol/L BUN (7-17) mg/dL Creatinine (0.52-1.04) mg/dL Glucose (74-99) mg/dL POC Glucose (mg/dL) 166 H (75-99) mg/dL Microbiology - Last 24 Hours (Table) 08/13/20 21:35 Blood Culture - Preliminary Blood No Growth after 96 hours Assessment and Plan Plan: 1 acute hypoxic respiratory failure/pulmonary edema, extubated to nasal cannula. She is hemodynamically stable at this point in time. She is currently on 2 L of oxygen by nasal cannula. 2 sustained V. tach, post cardioversion and the patient's current rhythm is atrial fibrillation with a controlled rate, the patient remains on amiodarone 400 mg by mouth twice a day in combination with metoprolol XL 50 mg by mouth daily and the cardiac rhythm is atrial fibrillation. No further episodes of V. tach and the patient had a cardiac catheterization last year that came back normal coronaries and the patient is being considered for AICD 3 cardiomyopathy with an ejection fraction of less than 20%-25% along with moderate to severe mitral regurgitation, likely of a new onset thing a cardiac catheterization, rule out ischemic cardiomyopathy, considered AICD 4 chronic atrial fibrillation maintained on a combination of amiodarone, metoprolol and IV heparin for now pending cardiac catheterization 5 coronary artery disease appears myocardial infarction 6 previous history of DVT 7 hyperlipidemia 8 macular degeneration 9 remote history of CVA 10 acute kidney injury with oligoria, , creatinine is improving 11 metabolic acidosis secondary to acute kidney injury , resolved 12 COVID-19 infection treated and subsequent recovery back to May 2020 13 stage III right lower extremity wound without any signs of infection or cellulitis 14 suspected UTI cultures are negative and the patient is completing a 5 day course of Rocephin, no signs of any acute infection at this point in time. Plan 02 2 L of oxygen by nasal cannula. IV fluids to KVO Continue IV Lasix 40 mg every 12 hours patient still has some increased edema lower extremities bilaterally. Creatinine is stable at 1.3. Continue oral amiodarone 400 mg 2 times a day and Toprol 100 mg XL, and the patient has been also started on lisinopril 5 mg by mouth daily regarding her cardiomyopathy. IV heparin Dr. Gordon regarding AICD Levemir insulin IV Rocephin will be discontinued Keep in ICU for now until seen by Dr. Gordon
--- NOTE | 2020-08-18 09:37 | P.PN ---
Subjective Patient is seen in follow for acute kidney injury. Renal function stable. Sitting up in chair. Denies chest pain or shortness of breath. On 2L nasal cannula. Maintained on IV Lasix. Nonoliguric. No active complaints. Vital signs are stable. HEENT: On nasal cannula. LUNGS: Breath sounds decreased. HEART: Rate and Rhythm are regular. ABDOMEN: Soft, no distention. EXTREMITITES: Trace edema. Objective - Vital Signs Vital signs: Vital Signs Temp 98.4 F 08/18/20 08:00 Pulse 96 08/18/20 09:00 Resp 23 08/18/20 09:00 BP 105/65 08/18/20 09:00 Pulse Ox 97 08/18/20 09:00 Intake & Output 08/17/20 08/18/20 08/18/20 18:59 06:59 18:59 Intake Total 350 366.85 300 Output Total 725 445 50 Balance -375 -78.15 250 Weight 110.4 kg 111.6 kg Intake: IV 110 130 10 0.9 110 130 10 Intake, IV Titration 236.85 50 Amount Heparin Sod,Pork in 0.45% 236.85 NaCl 25,000 unit In 0.45 % NaCl 1 250ml.bag @ 8. 803 UNITS/KG/HR 10 mls/hr IV .Q24H [facility] Rx#: [id number] cefTRIAXone 1 gm In 50 Sodium Chloride 0.9% 50 ml @ 100 mls/hr IVPB Q24HR [facility] Rx#:[id number] Oral 240 240 Output: Urine 725 445 50 Other: Voiding Method Indwelling Catheter Indwelling Catheter ABP, PAP, CO, CI - Last Documented Arterial Blood Pressure 120/49 - Labs CBC & Chem 7: 08/18/20 04:27 08/18/20 04:27 Labs: Abnormal Lab Results - Last 24 Hours (Table) 08/17/20 08/17/20 08/17/20 Range/Units 11:34 16:18 19:42 WBC (3.8-10.6) k/uL RBC (3.80-5.40) m/uL Hgb (11.4-16.0) gm/dL Hct (34.0-46.0) % Neutrophils # (1.3-7.7) k/uL Monocytes # (0-1.0) k/uL APTT (22.0-30.0) sec Sodium (137-145) mmol/L Chloride (98-107) mmol/L BUN (7-17) mg/dL Creatinine (0.52-1.04) mg/dL Glucose (74-99) mg/dL POC Glucose (mg/dL) 170 H 235 H 204 H (75-99) mg/dL 08/18/20 08/18/20 08/18/20 Range/Units 04:27 04:27 04:27 WBC 12.4 H (3.8-10.6) k/uL RBC 3.00 L (3.80-5.40) m/uL Hgb 9.2 L (11.4-16.0) gm/dL Hct 27.3 L (34.0-46.0) % Neutrophils # 9.1 H (1.3-7.7) k/uL Monocytes # 1.1 H (0-1.0) k/uL APTT 45.2 H (22.0-30.0) sec Sodium 129 L (137-145) mmol/L Chloride 97 L (98-107) mmol/L BUN 32 H (7-17) mg/dL Creatinine 1.23 H (0.52-1.04) mg/dL Glucose 166 H (74-99) mg/dL POC Glucose (mg/dL) (75-99) mg/dL 08/18/20 Range/Units 06:32 WBC (3.8-10.6) k/uL RBC (3.80-5.40) m/uL Hgb (11.4-16.0) gm/dL Hct (34.0-46.0) % Neutrophils # (1.3-7.7) k/uL Monocytes # (0-1.0) k/uL APTT (22.0-30.0) sec Sodium (137-145) mmol/L Chloride (98-107) mmol/L BUN (7-17) mg/dL Creatinine (0.52-1.04) mg/dL Glucose (74-99) mg/dL POC Glucose (mg/dL) 166 H (75-99) mg/dL Microbiology - Last 24 Hours (Table) 08/13/20 21:35 Blood Culture - Preliminary Blood No Growth after 96 hours Assessment and Plan Plan: Assessment: 1. Acute kidney injury secondary to ATN secondary to cardiorenal syndrome and hemodynamic instability. Renal function improved. Creatinine stable at 1.23 today. Baseline creatinine near 1. No hydronephrosis and kidney ultrasound. 2. V. tach maintained on amiodarone. 3. History of A. fib. 4. Acute hypoxic respiratory failure. 5. Acute on chronic systolic CHF with ejection fraction of 20-25% with moderate to severe mitral regurgitation, tricuspid regurgitation and moderate pulmonary hypertension. 6. Diabetes mellitus. 7. Metabolic acidosis secondary to acute kidney injury. Resolved. 8. Hyponatremia, hypervolemic. Plan: Maintain IV Lasix for another 24 hours. Encourage oral intake. 1500 mL fluid restriction. Continue to monitor renal function and urine output. Avoid nephrotoxins.
[2020-08-18 11:36] LABS: Glucose,Whole Blood 292 mg/dL (75-99)
[2020-08-18] MEDS ORDERED: HEPARIN SOD,PORK IN 0.45% NACL 25,000 UNIT in 0.45% NACL 1 250ML.BAG IV SCH (15:00)
[2020-08-18 16:54] LABS: Glucose,Whole Blood 185 mg/dL (75-99)
[2020-08-18 21:04] LABS: Glucose,Whole Blood 223 mg/dL (75-99)
[2020-08-18] MEDS: ZOLPIDEM 5 MG TAB PO PRN (21:29)
[2020-08-19 04:57] LABS: HCT 28.4 % (34.0-46.0); HGB 9.2 gm/dL (11.4-16.0); MCH 29.5 pg (25.0-35.0); MCHC 32.4 g/dL (31.0-37.0); MCV 90.9 fL (80.0-100.0); Mean Platelet Volume 7.7; Platelet Count 271 k/uL (150-450); RBC 3.13 m/uL (3.80-5.40); RDW 15.4 % (11.5-15.5); WBC 10.9 k/uL (3.8-10.6)
[2020-08-19 05:37] LABS: Potassium 4.2 mmol/L (3.5-5.1)
[2020-08-19 05:38] LABS: Albumin 2.9 g/dL (3.5-5.0); Calcium 8.9 mg/dL (8.4-10.2); Total Bilirubin 0.2 mg/dL (0.2-1.3); Total Protein 5.7 g/dL (6.3-8.2)
[2020-08-19 06:26] LABS: Glucose,Whole Blood 186 mg/dL (75-99)
[2020-08-19] MEDS: INSULIN DETEMIR (LEVEMIR) 100 UNIT/ML SYR SQ SCH (07:15)
[2020-08-19] MEDS: INSULIN ASPART (NovoLOG) 100 UNIT/ML VIAL SQ SCH ×5 (07:15→23:58)
[2020-08-19] MEDS: IPRATROPIUM-ALBUTEROL 3 ML NEB INHALATION SCH ×4 (07:36→19:55)
--- NOTE | 2020-08-19 08:37 | P.PN ---
Subjective Progress Note Date: 08/19/20 74-year-old female patient, known history of cardiac disease including CAD, previous [place], previous history of chronic atrial fibrillation, diabetes mellitus whereas been also infected and recovered from COVID-19 back in May 2020 and she is currently being treated for a stage III right lower extremity wound being treated at [facility] and the patient was discharged recently home. The patient was brought into the hospital as the patient was experiencing some palpitations at home. EMS came to the scene and the patient was found to have a wide complex tachycardia consistent with V. tach. In the emergency department, the patient was given a shock and the patient converted to atrial fibrillation with a controlled rate. She was in acute pulmonary edema. She was hypoxic. She was unresponsive. At that point the patient was intubated and placed on a mechanical ventilator. She is currently sedated with propofol and she is calm and comfortable. Probable resolving at 20 mg/kg per minute. She is on assist control mode at the rate of 26 and a tidal volume of 400 and FiO2 of 70% with a PEEP of 8. Peak air pressures 34 static pressure of 27. FiO2 was dropped down to 50%. Chest x-ray is showing some improvement in the bilateral pulmonary edema compared to yesterday. ET tube is high in the trachea and is to be repositioned. As stated, the patient is currently on no pressors. The morning blood gases showed a pH of 7.47 with a pCO2 of 37 and pO2 of 241 and this was on FiO2 of 100%. The white cell count at 16.3. The patient's lactic acid level is at 2.8. Creatinine was up to 2.0 to consistent with an acute kidney injury. Her troponin was 0.80. The patient's proBNP level is 3940. Rest of the blood work and x-rays shows a potassium level of 5.0 with a creatinine of 2.02 and a serum bicarb of 20. Bedside echocardiogram was done and the preliminary report is consistent with severe cardiomyopathy with an ejection fraction of less than 20%. On today's evaluation of 08/15/2020, the patient is being seen for a follow-up. As stated earlier, the patient has history of cardiac disease, COPD and chronic A. fib and the patient presented with wide complex tachycardia/V. tach. She is currently intubated on a mechanical ventilator. Intubation was done because of an acute pulmonary edema. On her echocardiogram, the patient was found to have an ejection fraction of 20-25% and was consistent with systolic heart failure. She has some diastolic filling abnormality. She also has no evidence of aortic disease, moderate to severe mitral regurgitation, [id number] pulmonary hypertension with a PA pressure of 39. The patient currently is in a Hx fibril lation rhythm. Amiodarone is still running at 0.5 mg per minute and this needs to be switched to oral maintenance. She is on IV heparin for now as the patient was having some issues with acute kidney injury and lines had to be established. Yesterday, triple lumen catheter was inserted in the left IJ. The CVP currently is at 11. The chest x-ray from today there is evidence of cardiomegaly, bilateral pleural effusions, interstitial edema, triple lumen cath in the left IJ, ET tube is in a good location as she was pushed and the lip line of 23. OG tube is also in place. The patient remains on mechanical ventilator. This morning she is on a assist-control of 16 which was dropped down with a tidal volume of 400 and FiO2 of 50% with a PEEP of 6. Morning blood gases that was done on a PEEP of 8 showed a pH of 7.58 with a pCO2 of 30 and pO2 of 139. This was also done at the rate of 26 the patient is still being diuresed with IV Lasix. She is receiving Lasix 40 mg IV every 12 hours. Creatinine is down to 1.8. Urine output is in order of 100 mL an hour and the neck fluid balance over the past 24 hours has been -6 99 mL. Ultrasound the kidney was done and it showed no evidence of any hydronephrosis. She is afebrile. Currently she is on no pressors. She is sedated with propofol which is running at 50 mcg/kg per minute. 08/16/2020, the patient is extubated. After successfully diuresing the patient, the patient was weaned off the sedation, she was able to give us a good weaning parameters and good spontaneous breathing trial and following that she was extubated to nasal cannula and this morning she is sitting up on a chair and she is on oxygen at 4 L which was later dropped down to 2 L nasal cannula. The chest x-ray from today is showing interval removal of the orotracheal tube. There is also cardiomegaly. There is also small bilateral pleural effusions. There is also interstitial edema which is essentially improving. Lung volumes are still. The patient is currently in atrial fibrillation and the rate is somewhere between 100-120. The patient is currently on amiodarone 400 mg by mouth twice a day. Lopressor dose was adjusted to 50 mg by mouth daily XL and the patient was started on Aldactone 25 mg by mouth daily as of yesterday and she was also started on lisinopril 5 mg. She is still being diuresed with Lasix receiving a dose of 40 mg IV every 12 hours. As mentioned earlier, she has impaired ejection fraction with systolic heart failure and ejection fraction of 20-25% and mild pulmonary hypertension. Her current CVP is around 8. The over all fluid balance is -2.9 L over the past 24 hours and the patient has had a hours a negative fluid balance again. Electrolytes from today shows a potassium level of 4.2 and a creatinine is at 1.3 which is essentially improved compared to yesterday and the renal function continues to improve. In terms of her abnormal UA, the urine cultures still pending. Blood cultures of been negative and the patient is currently on IV Rocephin as an empiric antibiotic coverage. She is on Levemir insulin 10 units along with a sliding scale coverage and blood sugars are being monitored. No other significant events otherwise for now. She is off sedation. She is awake and alert. She'll be advanced on her diet and currently she is on diabetic carb Consistent diet. 08/17/2020, the patient remains extubated and currently she is on oxygen at 3 L., Comfortable and she is sitting up on a chair. She is on diuretics and she is currently on Lasix 40 mg by mouth IV twice a day and Aldactone 25 mg by mouth daily. She remains in a negative fluid balance. Lasix was held yesterday in consultation for cardiac catheterization. I was later on the form that the patient had a cardiac catheterization last year and her coronaries were essentially normal. No plans to do a cardiac catheterization Lasix was restarted. She is headed towards a negative fluid balance for now. The plan is to consider an AICD placement and the patient was seen by Dr. Gordon today. Otherwise, her cardiac rhythm is atrial fibrillation the patient remains on IV heparin for now. No long-term anticoagulation until a decision is made regarding AICD placement. She remains on IV Rocephin and urine cultures are negative for now. The white cell count today is at 15 and creatinine is at 1.2 which is obviously improving as the patient had a cardiorenal factors and he continues to have improved with a creatinine. She is on Levemir insulin running at 16 units and her dose was adjusted today because of ongoing hyperglycemia. 08/18/2020, the patient remains extubated on 2 L of oxygen by nasal cannula. Doing well. No acute complaints. Diuresing well. She is in a negative fluid balance chest x-ray still showing some small lung volumes and atelectatic changes in lung bases and the patient has edema lower extremities bilaterally. She remains on Lasix 40 mg IV every 12 hours. She remains on Aldactone 25 mg by mouth daily. She remains on amiodarone orally and her cardiac rhythm remains a chair fibrillation and the patient remains on IV heparin. Metoprolol is also being utilized for rate control. Her renal function shows a creatinine of 1.23. She is on IV heparin with a therapeutic PTT. The patient is awaiting a final recommendation regarding an AICD placement. Awaiting a consultation from Dr. Gordon. No fever. No chills. Remains on IV Rocephin. Remains on Levemir insulin for blood sugar control. Her Levemir is currently running at 16 units along with his vascular coverage. No other significant events overnight. 08/19/2020 the patient remains an atrial fibrillation with a controlled rate. No ventricular arrhythmias. The decision to cardiology is to discharge this patient home with a LifeVest to be considered at a later stage for an AICD. She is doing extremely well. She is on oxygen at 2 L with a pulse ox of 99%. She has been adequately diuresed. Hemodynamically stable. Blood pressure is stable. The labs from today shows a hemoglobin of 9.2, creatinine is stable at 1.36 and the sodium is at 130. She is on IV heparin. Her lower extremity edema is also improving. Objective - Vital Signs Vital signs: Vital Signs Temp 97.9 F 08/19/20 08:00 Pulse 99 08/19/20 08:00 Resp 10 L 08/19/20 08:00 BP 94/62 08/19/20 08:00 Pulse Ox 99 08/19/20 08:00 Intake & Output 0508/19/20 08/19/20 18:59 06:59 18:59 Intake Total 1061.0 382.2 212.864 Output Total 430 505 30 Balance 631.0 -122.8 182.864 Weight 114.8 kg Intake: IV 110 120 10 0.9 110 120 10 Intake, IV Titration 111.0 12.2 202.864 Amount Heparin Sod,Pork in 0.45% 61.0 12.2 202.864 NaCl 25,000 unit In 0.45 % NaCl 1 250ml.bag @ 8. 803 UNITS/KG/HR 10 mls/hr IV .Q24H HARIKA Rx#: [id number] cefTRIAXone 1 gm In 50 Sodium Chloride 0.9% 50 ml @ 100 mls/hr IVPB Q24HR [facility]IKA Rx#:[id number] Oral 840 250 Output: Urine 430 505 30 Other: Voiding Method Indwelling Catheter Indwelling Catheter ABP, PAP, CO, CI - Last Documented Arterial Blood Pressure 121/56 - Exam Gen. appearance, calm and comfortable, obese, and alert and currently on 2L of oxygen by nasal cannula Head exam was generally normal. There was no scleral icterus or corneal arcus. Mucous membranes were moist. Neck was supple and without jugular venous distension, thyromegaly, or carotid bruits. Carotids were easily palpable bilaterally. There was no adenopathy. Orogastric and orotracheal tube are both in place Lungs sounds are diminished in lung bases bilaterally Heart sounds are irregular, rate is controlled for now, irregular S1-S2 consistent with atrial fibrillation. No cervical murmurs appreciated. Overall heart sounds are distant. Abdominal exam revealed normal bowel sounds. The abdomen was soft, non-tender, and without masses, organomegaly, or appreciable enlargement of the abdominal aorta. Examination of the extremities revealed diminished pulses in the radial, femoral and pedal pulses. There was no cyanosis, clubbing or edema. Examination of the skin shows a stage III wound in the right lower extremity, lateral leg and the base of the wound is dry clean and intact at this point in time and there is no purulent discharge and there is no surrounding cellulitis. Neurologically the patient sedated and the patient is calm and comfortable. - Labs CBC & Chem 7: 08/19/20 04:14 08/19/20 04:14 Labs: Abnormal Lab Results - Last 24 Hours (Table) 08/18/20 08/18/20 08/18/20 Range/Units 11:35 16:52 21:02 WBC (3.8-10.6) k/uL RBC (3.80-5.40) m/uL Hgb (11.4-16.0) gm/dL Hct (34.0-46.0) % APTT (22.0-30.0) sec Sodium (137-145) mmol/L Chloride (98-107) mmol/L BUN (7-17) mg/dL Creatinine (0.52-1.04) mg/dL Glucose (74-99) mg/dL POC Glucose (mg/dL) 292 H 185 H 223 H (75-99) mg/dL Total Protein (6.3-8.2) g/dL Albumin (3.5-5.0) g/dL 08/19/20 08/19/20 08/19/20 Range/Units 04:14 04:14 06:24 WBC 10.9 H (3.8-10.6) k/uL RBC 3.13 L (3.80-5.40) m/uL Hgb 9.2 L (11.4-16.0) gm/dL Hct 28.4 L (34.0-46.0) % APTT (22.0-30.0) sec Sodium 130 L (137-145) mmol/L Chloride 97 L (98-107) mmol/L BUN 38 H (7-17) mg/dL Creatinine 1.36 H (0.52-1.04) mg/dL Glucose 166 H (74-99) mg/dL POC Glucose (mg/dL) 186 H (75-99) mg/dL Total Protein 5.7 L (6.3-8.2) g/dL Albumin 2.9 L (3.5-5.0) g/dL 08/19/20 Range/Units 07:06 WBC (3.8-10.6) k/uL RBC (3.80-5.40) m/uL Hgb (11.4-16.0) gm/dL Hct (34.0-46.0) % APTT 41.4 H (22.0-30.0) sec Sodium (137-145) mmol/L Chloride (98-107) mmol/L BUN (7-17) mg/dL Creatinine (0.52-1.04) mg/dL Glucose (74-99) mg/dL POC Glucose (mg/dL) (75-99) mg/dL Total Protein (6.3-8.2) g/dL Albumin (3.5-5.0) g/dL Microbiology - Last 24 Hours (Table) 08/13/20 21:35 Blood Culture - Preliminary Blood No Growth after 120 hours Assessment and Plan Plan: 1 acute hypoxic respiratory failure/pulmonary edema, extubated to nasal cannula. She is hemodynamically stable at this point in time. She is currently on 2 L of oxygen by nasal cannula. 2 sustained V. tach, post cardioversion and the patient's current rhythm is atrial fibrillation with a controlled rate, the patient remains on amiodarone 400 mg by mouth twice a day in combination with metoprolol XL 50 mg by mouth daily and the cardiac rhythm is atrial fibrillation. No further episodes of V. tach and the patient had a cardiac catheterization last year that came back normal coronaries and the patient is being considered for AICD this stage and cardiology opted to wait until her wounds in her right lower extremity has essentially healed. 3 cardiomyopathy with an ejection fraction of less than 20%-25% along with moderate to severe mitral regurgitation, likely of a new onset thing a cardiac catheterization, rule out ischemic cardiomyopathy, considered AICD 4 chronic atrial fibrillation maintained on a combination of amiodarone, metoprolol and IV heparin for now pending cardiac catheterization 5 coronary artery disease appears myocardial infarction 6 previous history of DVT 7 hyperlipidemia 8 macular degeneration 9 remote history of CVA 10 acute kidney injury with oligoria, , creatinine is improving 11 metabolic acidosis secondary to acute kidney injury , resolved 12 COVID-19 infection treated and subsequent recovery back to May 2020 13 stage III right lower extremity wound without any signs of infection or cellulitis 14 suspected UTI cultures are negative and the patient is completing a 5 day course of Rocephin, no signs of any acute infection at this point in time. Plan 02 2 L of oxygen by nasal cannula. IV fluids to KVO Continue Lasix to oral 40 mg by mouth twice a day Stop the IV heparin and start the patient on Eliquis 5 mg by mouth twice a day Continue oral amiodarone 400 mg 2 times a day and Toprol 100 mg XL, and the patient has been also started on lisinopril 5 mg by mouth daily regarding her cardiomyopathy. Dr. oGrdon regarding AICD 80 stage. Meanwhile, arrange a life vest for this patient Resume Keflex and continue with medical any regarding the right lower extremity wound Levemir insulin 16 U in am She will be able to leave to a telemetry unit today.
[2020-08-19] MEDS: FUROSEMIDE 40 MG TAB PO SCH ×2 (09:51→16:10)
[2020-08-19] MEDS: CEPHALEXIN 250 MG CAP PO SCH ×3 (09:51→23:11)
[2020-08-19] MEDS: AMIODARONE 200 MG TAB PO SCH (09:51)
[2020-08-19] MEDS: APIXABAN 5 MG TAB PO SCH ×2 (09:51→20:19)
[2020-08-19] MEDS: lisinopriL 5 MG TAB PO SCH (09:52)
[2020-08-19] MEDS: SPIRONOLACTONE 25 MG TAB PO SCH (09:52)
[2020-08-19] MEDS: METOPROLOL SUCCINATE (ER) 100 MG TAB.ER.24H PO SCH (09:52)
[2020-08-19] MEDS: PANTOPRAZOLE 40 MG TABLET PO SCH (09:52)
[2020-08-19] MEDS: TIMOLOL 0.5% OPHTH DROPS 5 ML BTL BOTH EYES SCH ×2 (10:59→20:20)
[2020-08-19] MEDS: CHOLECALCIFEROL 25 MCG (1000 IU) TABLET PO SCH (10:59)
[2020-08-19] MEDS: ASCORBIC ACID 500 MG TAB PO SCH (10:59)
[2020-08-19 11:32] LABS: Glucose,Whole Blood 236 mg/dL (75-99)
--- NOTE | 2020-08-19 12:56 | PN ---
PROGRESS NOTE Patient is seen for followup for acute kidney injury. Her renal function is stable with creatinine at 1.3, which is slightly higher than 1.2 yesterday. Urine output is currently at 30-20 mL an hour, which is slightly lower than yesterday. EXAMINATION: Today, patient is comfortable, awake. Blood pressure was 100/81, heart rate 111 per minute. Patient is afebrile. Examination of the heart S1, S2. Examination of lungs decreased breath sounds at the bases. Abdomen is soft, nontender. No significant edema noted bilaterally. OR RN exam grossly intact. LAB: Show sodium 130, potassium 4.2, chloride 97, BUN 38, creatinine 1.36, hemoglobin 9.2 g/dL. ASSESSMENT: 1. Acute kidney injury acute tubular necrosis/cardiorenal syndrome. No evidence of obstruction. Serum creatinine slightly higher at 1.3 from 1.2 yesterday. Urine output is borderline, maintained on IV Lasix which we will continue. 2. Ventricular tachycardia, maintained on amiodarone. 3. History of atrial fibrillation. 4. Congestive heart failure with ejection fraction 20% to 25%. 5. Acute on chronic systolic congestive heart failure. 6. Metabolic acidosis secondary to renal failure, resolved. 7. Hyponatremia which is hypervolemic. PLAN: Continue to diurese patient. Lasix has been switched to p.o. Blood pressure is low. I will hold off on the lisinopril since her systolic blood pressure is in the 80s. Monitor urine output and repeat labs in a.m. Consider decreasing dose of Toprol if patient remains with systolic blood pressure below 95 mmHg. MMODL / IJN: [id number] /
--- NOTE | 2020-08-19 16:50 | P.PN ---
Subjective Progress Note Date: 08/19/20 74-year-old female patient, known history of cardiac disease including CAD, previous [place], previous history of chronic atrial fibrillation, diabetes mellitus whereas been also infected and recovered from COVID-19 back in May 2020 and she is currently being treated for a stage III right lower extremity wound being treated at [facility] and the patient was discharged recently home. The patient was brought into the hospital as the patient was experiencing some palpitations at home. EMS came to the scene and the patient was found to have a wide complex tachycardia consistent with V. tach. In the emergency department, the patient was given a shock and the patient converted to atrial fi brillation with a controlled rate. She was in acute pulmonary edema. She was hypoxic. She was unresponsive. At that point the patient was intubated and placed on a mechanical ventilator. 08/19/2020 the patient is seen and evaluated in ICU; remains an atrial fibrillation with a controlled rate. No ventricular arrhythmias. Cardiology to evaluate to decide to discharge this patient home with a LifeVest with plan for AICD at a later stage. She is doing extremely well. She is on oxygen at 2 L with a pulse ox of 99%. She has been adequately diuresed. Hemodynamically stable. Blood pressure is stable. The labs from today shows a hemoglobin of 9.2, creatinine is stable at 1.36 and the sodium is at 130. She is on IV heparin. Her lower extremity edema is also improving. Patient will remain on current management; pulmonary service recommending to stop IV heparin and start the patient on Eliquis 5 mg by mouth twice a day; Continue oral amiodarone 400 mg 2 times a day and Toprol 100 mg XL; patient has been started on lisinopril 5 mg daily for cardiomyopathy; Keflex and local treatment to right lower extremity wound Objective - Vital Signs Vital signs: Vital Signs Temp 97.9 F 08/19/20 08:00 Pulse 99 08/19/20 08:00 Resp 10 L 08/19/20 08:00 BP 94/62 08/19/20 08:00 Pulse Ox 99 08/19/20 08:00 Intake & Output 08/18/20 08/19/20 08/19/20 18:59 06:59 18:59 Intake Total 1061.0 382.2 222.864 Output Total 430 505 50 Balance 631.0 -122.8 172.864 Weight 114.8 kg Intake: IV 110 120 20 0.9 110 120 20 Intake, IV Titration 111.0 12.2 202.864 Amount Heparin Sod,Pork in 0.45% 61.0 12.2 202.864 NaCl 25,000 unit In 0.45 % NaCl 1 250ml.bag @ 8. 803 UNITS/KG/HR 10 mls/hr IV .Q24H HARIKA Rx#: [id number] cefTRIAXone 1 gm In 50 Sodium Chloride 0.9% 50 ml @ 100 mls/hr IVPB Q24HR [facility]IKA Rx#:[id number] Oral 840 250 Output: Urine 430 505 50 Other: Voiding Method Indwelling Catheter Indwelling Catheter ABP, PAP, CO, CI - Last Documented Arterial Blood Pressure 121/56 - Exam Gen. appearance, calm and comfortable, obese, and alert and currently on 2L of oxygen by nasal cannula Head exam was generally normal. There was no scleral icterus or corneal arcus. Mucous membranes were moist. Neck was supple and without jugular venous distension, thyromegaly, or carotid bruits. Carotids were easily palpable bilaterally. There was no adenopathy. Orogastric and orotracheal tube are both in place Lungs sounds are diminished in lung bases bilaterally Heart sounds are irregular, rate is controlled for now, irregular S1-S2 consi stent with atrial fibrillation. No cervical murmurs appreciated. Overall heart sounds are distant. Abdominal exam revealed normal bowel sounds. The abdomen was soft, non-tender, and without masses, organomegaly, or appreciable enlargement of the abdominal aorta. Examination of the extremities revealed diminished pulses in the radial, femoral and pedal pulses. There was no cyanosis, clubbing or edema. Examination of the skin shows a stage III wound in the right lower extremity, lateral leg and the base of the wound is dry clean and intact at this point in time and there is no purulent discharge and there is no surrounding cellulitis. Neurologically the patient sedated and the patient is calm and comfortable. - Labs CBC & Chem 7: 08/19/20 04:14 08/19/20 04:14 Labs: Abnormal Lab Results - Last 24 Hours (Table) 08/18/20 08/18/20 08/18/20 Range/Units 11:35 16:52 21:02 WBC (3.8-10.6) k/uL RBC (3.80-5.40) m/uL Hgb (11.4-16.0) gm/dL Hct (34.0-46.0) % APTT (22.0-30.0) sec Sodium (137-145) mmol/L Chloride (98-107) mmol/L BUN (7-17) mg/dL Creatinine (0.52-1.04) mg/dL Glucose (74-99) mg/dL POC Glucose (mg/dL) 292 H 185 H 223 H (75-99) mg/dL Total Protein (6.3-8.2) g/dL Albumin (3.5-5.0) g/dL 08/19/20 08/19/20 08/19/20 Range/Units 04:14 04:14 06:24 WBC 10.9 H (3.8-10.6) k/uL RBC 3.13 L (3.80-5.40) m/uL Hgb 9.2 L (11.4-16.0) gm/dL Hct 28.4 L (34.0-46.0) % APTT (22.0-30.0) sec Sodium 130 L (137-145) mmol/L Chloride 97 L (98-107) mmol/L BUN 38 H (7-17) mg/dL Creatinine 1.36 H (0.52-1.04) mg/dL Glucose 166 H (74-99) mg/dL POC Glucose (mg/dL) 186 H (75-99) mg/dL Total Protein 5.7 L (6.3-8.2) g/dL Albumin 2.9 L (3.5-5.0) g/dL 08/19/20 Range/Units 07:06 WBC (3.8-10.6) k/uL RBC (3.80-5.40) m/uL Hgb (11.4-16.0) gm/dL Hct (34.0-46.0) % APTT 41.4 H (22.0-30.0) sec Sodium (137-145) mmol/L Chloride (98-107) mmol/L BUN (7-17) mg/dL Creatinine (0.52-1.04) mg/dL Glucose (74-99) mg/dL POC Glucose (mg/dL) (75-99) mg/dL Total Protein (6.3-8.2) g/dL Albumin (3.5-5.0) g/dL Microbiology - Last 24 Hours (Table) 08/13/20 21:35 Blood Culture - Preliminary Blood No Growth after 120 hours Assessment and Plan Assessment: 1. Tachyarrhythmia; sustained SVT - Continue oral amiodarone 400 mg 2 times a day and Toprol 100 mg XL, and the patient has been also started on lisinopril 5 mg by mouth daily regarding her cardiomyopathy. 2. Acute hypoxic respiratory failure/pulmonary edema; saturating well on O2 at 2 L per nasal cannula 3. Severe cardiomyopathy; EF 20-25% with moderate to severe mitral regurg; patient is started on lisinopril 5 mg daily - Patient is to be fitted with LifeVest with AICD implantation at a further stay 4. Chronic atrial fibrillation; remains rate controlled and anticoagulated 5. Acute renal injury; improving 6. UTI; cultures are negative so far; patient is recommended to complete a five-day course of antibiotic therapy 7. Stage III lower extremity; continue with antibiotic therapy in form of Keflex and local wound care DVT prophylaxis; SCDs/systemic anticoagulation CODE STATUS; full code
[2020-08-19 17:08] LABS: Glucose,Whole Blood 190 mg/dL (75-99)
[2020-08-19] MEDS: traMADol 50 MG TAB PO PRN (20:19)
[2020-08-19 20:59] LABS: Glucose,Whole Blood 227 mg/dL (75-99)
[2020-08-20] MEDS: traMADol 50 MG TAB PO PRN ×2 (03:32→20:51)
[2020-08-20 06:59] LABS: Glucose,Whole Blood 224 mg/dL (75-99)
[2020-08-20] MEDS: APIXABAN 5 MG TAB PO SCH ×2 (08:17→20:51)
[2020-08-20] MEDS: PANTOPRAZOLE 40 MG TABLET PO SCH (08:17)
[2020-08-20] MEDS: SPIRONOLACTONE 25 MG TAB PO SCH (08:17)
[2020-08-20] MEDS: METOPROLOL SUCCINATE (ER) 100 MG TAB.ER.24H PO SCH (08:17)
[2020-08-20] MEDS: INSULIN DETEMIR (LEVEMIR) 100 UNIT/ML SYR SQ SCH (08:18)
[2020-08-20] MEDS: ASCORBIC ACID 500 MG TAB PO SCH (08:18)
[2020-08-20] MEDS: CEPHALEXIN 250 MG CAP PO SCH ×3 (08:18→23:20)
[2020-08-20] MEDS: FUROSEMIDE 40 MG TAB PO SCH ×2 (08:18→16:47)
[2020-08-20] MEDS: INSULIN ASPART (NovoLOG) 100 UNIT/ML VIAL SQ SCH ×4 (08:18→20:51)
[2020-08-20] MEDS: CHOLECALCIFEROL 25 MCG (1000 IU) TABLET PO SCH (08:18)
[2020-08-20] MEDS: TIMOLOL 0.5% OPHTH DROPS 5 ML BTL BOTH EYES SCH ×2 (08:19→20:52)
[2020-08-20] MEDS: IPRATROPIUM-ALBUTEROL 3 ML NEB INHALATION SCH ×4 (08:48→20:16)
--- NOTE | 2020-08-20 09:22 | P.PN ---
Subjective Progress Note Date: 08/20/20 74-year-old female patient, known history of cardiac disease including CAD, previous AR, previous history of chronic atrial fibrillation, diabetes mellitus whereas been also infected and recovered from COVID-19 back in May 2020 and she is currently being treated for a stage III right lower extremity wound being treated at [facility] and the patient was discharged recently home. The patient was brought into the hospital as the patient was experiencing some palpitations at home. EMS came to the scene and the patient was found to have a wide complex tachycardia consistent with V. tach. In the emergency department, the patient was given a shock and the patient converted to atrial fibrillation with a controlled rate. She was in acute pulmonary edema. She was hypoxic. She was unresponsive. At that point the patient was intubated and placed on a mechanical ventilator. She is currently sedated with propofol and she is calm and comfortable. Probable resolving at 20 mg/kg per minute. She is on assist control mode at the rate of 26 and a tidal volume of 400 and FiO2 of 70% with a PEEP of 8. Peak air pressures 34 static pressure of 27. FiO2 was dropped down to 50%. Chest x-ray is showing some improvement in the bilateral pulmonary edema compared to yesterday. ET tube is high in the trachea and is to be repositioned. As stated, the patient is currently on no pressors. The morning blood gases showed a pH of 7.47 with a pCO2 of 37 and pO2 of 241 and this was on FiO2 of 100%. The white cell count at 16.3. The patient's lactic acid level is at 2.8. Creatinine was up to 2.0 to consistent with an acute kidney injury. Her troponin was 0.80. The patient's proBNP level is 3940. Rest of the blood work and x-rays shows a potassium level of 5.0 with a creatinine of 2.02 and a serum bicarb of 20. Bedside echocardiogram was done and the preliminary report is consistent with severe cardiomyopathy with an ejection fraction of less than 20%. On today's evaluation of 08/15/2020, the patient is being seen for a follow-up. As stated earlier, the patient has history of cardiac disease, COPD and chronic A. fib and the patient presented with wide complex tachycardia/V. tach. She is currently intubated on a mechanical ventilator. Intubation was done because of an acute pulmonary edema. On her echocardiogram, the patient was found to have an ejection fraction of 20-25% and was consistent with systolic heart failure. She has some diastolic filling abnormality. She also has no evidence of aortic disease, moderate to severe mitral regurgitation, [id number] pulmonary hypertension with a PA pressure of 39. The patient currently is in a Hx fibril lation rhythm. Amiodarone is still running at 0.5 mg per minute and this needs to be switched to oral maintenance. She is on IV heparin for now as the patient was having some issues with acute kidney injury and lines had to be established. Yesterday, triple lumen catheter was inserted in the left IJ. The CVP currently is at 11. The chest x-ray from today there is evidence of cardiomegaly, bilateral pleural effusions, interstitial edema, triple lumen cath in the left IJ, ET tube is in a good location as she was pushed and the lip line of 23. OG tube is also in place. The patient remains on mechanical ventilator. This morning she is on a assist-control of 16 which was dropped down with a tidal volume of 400 and FiO2 of 50% with a PEEP of 6. Morning blood gases that was done on a PEEP of 8 showed a pH of 7.58 with a pCO2 of 30 and pO2 of 139. This was also done at the rate of 26 the patient is still being diuresed with IV Lasix. She is receiving Lasix 40 mg IV every 12 hours. Creatinine is down to 1.8. Urine output is in order of 100 mL an hour and the neck fluid balance over the past 24 hours has been -6 99 mL. Ultrasound the kidney was done and it showed no evidence of any hydronephrosis. She is afebrile. Currently she is on no pressors. She is sedated with propofol which is running at 50 mcg/kg per minute. 08/16/2020, the patient is extubated. After successfully diuresing the patient, the patient was weaned off the sedation, she was able to give us a good weaning parameters and good spontaneous breathing trial and following that she was extubated to nasal cannula and this morning she is sitting up on a chair and she is on oxygen at 4 L which was later dropped down to 2 L nasal cannula. The chest x-ray from today is showing interval removal of the orotracheal tube. There is also cardiomegaly. There is also small bilateral pleural effusions. There is also interstitial edema which is essentially improving. Lung volumes are still. The patient is currently in atrial fibrillation and the rate is somewhere between 100-120. The patient is currently on amiodarone 400 mg by mouth twice a day. Lopressor dose was adjusted to 50 mg by mouth daily XL and the patient was started on Aldactone 25 mg by mouth daily as of yesterday and she was also started on lisinopril 5 mg. She is still being diuresed with Lasix receiving a dose of 40 mg IV every 12 hours. As mentioned earlier, she has impaired ejection fraction with systolic heart failure and ejection fraction of 20-25% and mild pulmonary hypertension. Her current CVP is around 8. The over all fluid balance is -2.9 L over the past 24 hours and the patient has had a hours a negative fluid balance again. Electrolytes from today shows a potassium level of 4.2 and a creatinine is at 1.3 which is essentially improved compared to yesterday and the renal function continues to improve. In terms of her abnormal UA, the urine cultures still pending. Blood cultures of been negative and the patient is currently on IV Rocephin as an empiric antibiotic coverage. She is on Levemir insulin 10 units along with a sliding scale coverage and blood sugars are being monitored. No other significant events otherwise for now. She is off sedation. She is awake and alert. She'll be advanced on her diet and currently she is on diabetic carb Consistent diet. 08/17/2020, the patient remains extubated and currently she is on oxygen at 3 L., Comfortable and she is sitting up on a chair. She is on diuretics and she is currently on Lasix 40 mg by mouth IV twice a day and Aldactone 25 mg by mouth daily. She remains in a negative fluid balance. Lasix was held yesterday in consultation for cardiac catheterization. I was later on the form that the patient had a cardiac catheterization last year and her coronaries were essentially normal. No plans to do a cardiac catheterization Lasix was restarted. She is headed towards a negative fluid balance for now. The plan is to consider an AICD placement and the patient was seen by Dr. Gordon today. Otherwise, her cardiac rhythm is atrial fibrillation the patient remains on IV heparin for now. No long-term anticoagulation until a decision is made regarding AICD placement. She remains on IV Rocephin and urine cultures are negative for now. The white cell count today is at 15 and creatinine is at 1.2 which is obviously improving as the patient had a cardiorenal factors and he continues to have improved with a creatinine. She is on Levemir insulin running at 16 units and her dose was adjusted today because of ongoing hyperglycemia. 08/18/2020, the patient remains extubated on 2 L of oxygen by nasal cannula. Doing well. No acute complaints. Diuresing well. She is in a negative fluid balance chest x-ray still showing some small lung volumes and atelectatic changes in lung bases and the patient has edema lower extremities bilaterally. She remains on Lasix 40 mg IV every 12 hours. She remains on Aldactone 25 mg by mouth daily. She remains on amiodarone orally and her cardiac rhythm remains a chair fibrillation and the patient remains on IV heparin. Metoprolol is also being utilized for rate control. Her renal function shows a creatinine of 1.23. She is on IV heparin with a therapeutic PTT. The patient is awaiting a final recommendation regarding an AICD placement. Awaiting a consultation from Dr. Gordon. No fever. No chills. Remains on IV Rocephin. Remains on Levemir insulin for blood sugar control. Her Levemir is currently running at 16 units along with his vascular coverage. No other significant events overnight. 08/19/2020 the patient remains an atrial fibrillation with a controlled rate. No ventricular arrhythmias. The decision to cardiology is to discharge this patient home with a LifeVest to be considered at a later stage for an AICD. She is doing extremely well. She is on oxygen at 2 L with a pulse ox of 99%. She has been adequately diuresed. Hemodynamically stable. Blood pressure is stable. The labs from today shows a hemoglobin of 9.2, creatinine is stable at 1.36 and the sodium is at 130. She is on IV heparin. Her lower extremity edema is also improving. 08/20/2020, seeing this patient for a follow-up. She was admitted intensive care unit and the patient got transferred to a telemetry unit yesterday. She is cardiomyopathy. She came to us with a cardiac is ventilator dependent respiratory failure and she is back on oxygen at 2 L. No significant respi ratory distress. No significant arrhythmias. Cardiac rhythm remains atrial fibrillation. Cardiology has opted to give her a LifeVest and with an AICD at a later stage knowing that she has chronic wounds in lower extremities worse on the right. Noted the wounds are not infected and there about healing slowly. She is receiving wound care. She remains on diuretics with a combination of Lasix and Aldactone. No signs of any significant respiratory distress this morning. The patient remains on Lasix 40 mg twice a day. She is also on Aldactone 25 mg by mouth daily. She is on Keflex regarding her lower extremity wounds. She is on metoprolol 100 mg once a day, Zestril 2.5 mg by mouth daily regarding her cardiomyopathy. She is also on long-term articulation with Eliquis 5 mg by mouth twice a day. She is tolerating her diet. She is awake and alert. Objective - Vital Signs Vital signs: Vital Signs Temp 99 F 08/20/20 04:00 Pulse 70 08/20/20 08:58 Resp 16 08/20/20 04:00 BP 102/59 08/20/20 04:00 Pulse Ox 96 08/20/20 04:00 Intake & Output 08/19/20 08/20/20 08/20/20 18:59 06:59 18:59 Intake Total 702.864 500 240 Output Total 353 625 Balance 349.864 -125 240 Weight 114.8 kg Intake: IV 40 0.9 40 Intake, IV Titration 202.864 Amount Heparin Sod,Pork in 0.45% 202.864 NaCl 25,000 unit In 0.45 % NaCl 1 250ml.bag @ 8. 803 UNITS/KG/HR 10 mls/hr IV .Q24H [facility] Rx#: [id number] Oral 460 500 240 Output: Urine 353 625 Other: Voiding Method Indwelling Catheter Indwelling Catheter ABP, PAP, CO, CI - Last Documented Arterial Blood Pressure 121/56 - Exam Gen. appearance, calm and comfortable, obese, and alert and currently on 2L of oxygen by nasal cannula Head exam was generally normal. There was no scleral icterus or corneal arcus. Mucous membranes were moist. Neck was supple and without jugular venous distension, thyromegaly, or carotid bruits. Carotids were easily palpable bilaterally. There was no adenopathy. Orogastric and orotracheal tube are both in place Lungs sounds are diminished in lung bases bilaterally Heart sounds are irregular, rate is controlled for now, irregular S1-S2 consistent with atrial fibrillation. No cervical murmurs appreciated. Overall heart sounds are distant. Abdominal exam revealed normal bowel sounds. The abdomen was soft, non-tender, and without masses, organomegaly, or appreciable enlargement of the abdominal aorta. Examination of the extremities revealed diminished pulses in the radial, femoral and pedal pulses. There was no cyanosis, clubbing or edema. Examination of the skin shows a stage III wound in the right lower extremity, lateral leg and the base of the wound is dry clean and intact at this point in time and there is no purulent discharge and there is no surrounding cellulitis. Neurologically the patient sedated and the patient is calm and comfortable. - Labs CBC & Chem 7: 08/19/20 04:14 08/19/20 04:14 Labs: Abnormal Lab Results - Last 24 Hours (Table) 08/19/20 08/19/20 08/19/20 Range/Units 11:30 17:07 20:58 POC Glucose (mg/dL) 236 H 190 H 227 H (75-99) mg/dL 08/20/20 Range/Units 06:57 POC Glucose (mg/dL) 224 H (75-99) mg/dL Microbiology - Last 24 Hours (Table) 08/13/20 21:35 Blood Culture - Final Blood No Growth after 144 hours Assessment and Plan Plan: 1 acute hypoxic respiratory failure/pulmonary edema, extubated to nasal cannula. She is hemodynamically stable at this point in time. She is currently on 2 L of oxygen by nasal cannula. Remains stable 2 sustained V. tach, post cardioversion and the patient's current rhythm is atrial fibrillation with a controlled rate, the patient remains on amiodarone 400 mg by mouth twice a day in combination with metoprolol XL 50 mg by mouth daily and the cardiac rhythm is atrial fibrillation. No further episodes of V. tach and the patient had a cardiac catheterization last year that came back normal coronaries and the patient is being considered for AICD this stage and cardiology opted to wait until her wounds in her right lower extremity has e ssentially healed. 3 cardiomyopathy with an ejection fraction of less than 20%-25% along with moder ate to severe mitral regurgitation, likely of a new onset thing a cardiac catheterization, rule out ischemic cardiomyopathy, considered AICD 4 chronic atrial fibrillation maintained on a combination of amiodarone, metoprolol and IV heparin for now pending cardiac catheterization 5 coronary artery disease appears myocardial infarction 6 previous history of DVT 7 hyperlipidemia 8 macular degeneration 9 remote history of CVA 10 acute kidney injury with oligoria, , creatinine is improving 11 metabolic acidosis secondary to acute kidney injury , resolved 12 COVID-19 infection treated and subsequent recovery back to May 2020 13 stage III right lower extremity wound without any signs of infection or cellulitis 14 suspected UTI cultures are negative and the patient is completing a 5 day course of Rocephin, no signs of any acute infection at this point in time. Plan Transferred out of the intensive care unit yesterday without any major issues. Currently on a telemetry unit. 02 2 L of oxygen by nasal cannula. IV fluids to KVO Continue Lasix to oral 40 mg by mouth twice a day Eliquis 5 mg by mouth twice a day Continue oral amiodarone 400 mg 2 times a day and Toprol 100 mg XL, and the patient has been also started on Zestril 2.5 mg by mouth daily regarding her cardiomyopathy. Dr. Gordon regarding AICD 80 stage. Meanwhile, arrange a life vest for this patient Resume Keflex and continue with medical any regarding the right lower extremity wound Levemir insulin 16 U in am She will be able to leave to a telemetry unit today.
--- NOTE | 2020-08-20 11:58 | P.CRDCN ---
History of Present Illness History of present illness: This is Dr. Pete dictating a consult on this patient, electrophysiology consult recommended by Dr. Banegas The patient was interviewed and examined IMPRESSION / ASSESSMENT: (Very) Wide complex tachycardia/slow ventricular tachycardia, patient on flecainide 100 mg twice daily Underlying severe cardio myopathy with global hypokinesis ejection fraction 20- 25% of recent onset Congestive heart failure class III Recent recovery from COVID 19 in May 2020 Previously her LV function was normal and she was on flecainide for atrial fibrillation Persistent atrial fibrillation Nonhealing ulcer in the right lower extremity Recent coronary angiography did not reveal any CAD, I will obtain the records as well as a previous 2-D echo Baseline ECG shows atrial fibrillation with a left bundle branch block morphology of up to 130 ms Bilateral airspace disease in the lungs PLAN: This is most likely flecainide proarrhythmia in the setting of recent onset nonischemic cardio myopathy The cause of severe nonischemic cardio myopathy is unclear at this point to me but could be related to myocarditis since the patient has a recent history of co vid OR as a result of atrial fibrillation I would recommend a LifeVest for 4 months and maximally tolerated beta blockers She is on beta blockers currently Stop amiodarone for now until her lung improves HPI Patient brought in by ambulance, complaining for palpitations for 3 hours prior, shortness of breath and discomfort, interscapular associated with palpitations She was found to have a wide complex tachycardia when EMS arrived. Her blood pressure was stable and EMS treated her with 150 mg of amiodarone In route to the emergency room her blood pressure dropped so she was cardioverted with 100 J shock Heart rate slowed down to 130 beats a minute The twelve-lead EKG in the emergency room confirmed a wide complex tachycardia at 130 beats a minute. This was at 1943 At that point the patient is feeling better In the emergency room she denied any chest discomfort to the emergency room ph ysician @20 00, case discussed with Dr. Cody and IV amiodarone was recommended At 2103, respirations status began to deteriorate quickly she is quite tachypneic, not tolerating BiPAP and she was intubated Initial white count 14,000 Initial chest x-ray showed bilateral airspace disease reticular-nodular pattern Recovered from coved 19 in May 2020, treated at [facility]. We will obtain echo was from prior to her that as well as following that ROS: No fever chills or rigors, no cough, phlegm or expectoration, no nausea, vomiting or diarrhea, no hematuria, dysuria, no musculoskeletal complaints, no strokes or seizures, no skin lesions. EXAMINATION: Resting comfortably in a chair Mildly short of breath Blood pressure however is around 100 mmHg The right lower extremity is bandaged but she has an ulcer beneath, nonhealing I examined this and it still is infected REVIEW OF LABS, ECG & MEDICAL DATA Recent history of coved 19 in May 2020 Past history of atrial fibrillation, diabetes mellitus type 2 Wound infection right leg Seeing the ID specialist and going to the wound clinic, has a nonhealing ulcer at this time First 12-lead EKG showed wide complex tachycardia 134 beats a minute QRS width is very wide and is almost 200 ms Left bundle branch block morphology, right superior axis Twelve-lead EKG shows a QRS width of 120-130 ms, underlying atrial fibrillation 2-D echo shows severe global hypokinesis ejection fraction 20-25% Moderate severe mitral regurgitation Moderate tricuspid regurgitation Right ventricular is mild to moderately enlarged Renal failure creatinine greater than 2 Patient was on flecainide 100 mg twice daily, tramadol Initial labs showed white count of 14,000, hemoglobin of 11.6 Sodium 132, potassium 4.5 BUN 36 and creatinine 1.8 Mildly abnormal troponins Past Medical History Past Medical History: Atrial Fibrillation, Coronary Artery Disease (CAD), CVA/TIA, Diabetes Mellitus, Deep Vein Thrombosis (DVT), Hyperlipidemia, Hypertension, Myocardial Infarction ([place]) Additional Past Medical History / Comment(s): tia, lt eye macular , COVID 19 in 05/2020, RLE wound stage 3 Last Myocardial Infarction Date:: unk History of Any Multi-Drug Resistant Organisms: None Reported Past Surgical History: Adenoidectomy, Hysterectomy, Orthopedic Surgery, Tonsillectomy, Tubal Ligation Additional Past Surgical History / Comment(s): pilonidal cyst twice as child, rt knee arthroscopy, krystyna cataracts,krystyna great toe sx, Additional Past Anesthesia/Blood Transfusion Reaction / Comment(s): difficulty waking up after sx. clausterphobia. 196 blood transfusion(during child ) pt stated had palpitations after 2nd unit given Past Psychological History: No Psychological Hx Reported Smoking Status: Former smoker Past Alcohol Use History: None Reported Past Drug Use History: None Reported - Past Family History Mother Family Medical History: Cancer Additional Family Medical History / Comment(s): lung cancer Father Family Medical History: Coronary Artery Disease (CAD) Additional Family Medical History / Comment(s): heart disease, kidney disese Medications and Allergies Home Medications Medication Instructions Recorded Confirmed Type RX: lisinopriL [Prinivil] 20 mg PO DAILY 10/10/14 08/13/20 History RX: Potassium 297 mg PO W/SUPPER 03/31/18 08/13/20 History RX: metFORMIN HCL ER [Glucophage 500 mg PO DAILY 03/31/18 08/13/20 History Xr] RX: Cholecalciferol [Vitamin D3 2,000 unit PO DAILY 04/01/18 08/13/20 History (25 Mcg = 1000 Iu)] RX: Potassium 99 mg PO QAM 04/01/18 08/13/20 History RX: Timolol 0.5% Ophth Soln 1 drop BOTH EYES BID 04/01/18 08/13/20 History [Timoptic 0.5% Ophth Soln] Apixaban [Eliquis] 5 mg PO BID 08/13/20 08/13/20 History Ascorbic Acid [Vitamin C] 1,000 mg PO DAILY 08/13/20 08/13/20 History Cephalexin [Keflex] 500 mg PO Q6HR 08/13/20 08/13/20 History Furosemide [Lasix] 40 mg PO DAILY 08/13/20 08/13/20 History Insulin Glargine,Hum.rec.anlog 60 units SQ HS 08/13/20 08/13/20 History [Toujeo Max Solostar] Insulin Glargine,Hum.rec.anlog See Protocol SQ DAILY 08/13/20 08/13/20 History [Toujeo Max Solostar] Ipratropium Currie [Atrovent Hfa] 2 puff INHALATION RT-QID 08/13/20 08/13/20 History Metoprolol Succinate [Toprol XL] 150 mg PO BID 08/13/20 08/13/20 History RX: Famotidine 40 mg PO DAILY PRN 08/13/20 08/13/20 History RX: Flecainide Acetate 100 mg PO BID 08/13/20 08/13/20 History RX: Magnesium Oxide 400 mg PO DAILY 08/13/20 08/13/20 History RX: traMADol HCL 50 mg PO Q6H PRN 08/13/20 08/13/20 History Spironolactone [Aldactone] 12.5 mg PO DAILY 08/13/20 08/13/20 History Allergies Allergy/AdvReac Type Severity Reaction Status Date / Time adhesive Allergy Unknown Verified 08/13/20 20:22 aluminum Allergy Unknown Verified 08/13/20 20:22 Antihistamines - Allergy Unknown Verified 08/13/20 20:22 Ethylenediamine codeine Allergy Unknown Verified 08/13/20 20:22 epinephrine Allergy Unknown Verified 08/13/20 20:22 hydrogen peroxide Allergy Unknown Verified 08/13/20 20:22 latex Allergy Unknown Verified 08/13/20 20:22 lidocaine Allergy Unknown Verified 08/13/20 20:22 nickel Allergy Unknown Verified 08/13/20 20:22 petrolatum,white Allergy Unknown Verified 08/13/20 20:22 [From Petroleum Jelly] procaine HCl [From Novocain] Allergy Unknown Verified 08/13/20 20:22 shellfish derived [Shellfish] Allergy Unknown Verified 08/13/20 20:22 thiopental sodium Allergy Unknown Verified 08/13/20 20:22 [From Pentothal] egg yolk AdvReac Diarrhea Verified 08/17/20 09:17 Physical Exam Vitals: Vital Signs Temp Pulse Resp BP Pulse Ox 08/19/20 16:10 92 08/19/20 16:07 18 08/19/20 16:00 88 18 103/51 97 08/19/20 15:57 90 08/19/20 14:00 90 23 105/60 99 08/19/20 13:00 110 H 20 100/70 98 08/19/20 12:00 97.7 F 105 H 23 100/68 99 08/19/20 11:56 100 08/19/20 11:43 98 08/19/20 11:00 98 17 94/57 97 08/19/20 10:00 111 H 24 100/81 92 L 08/19/20 09:00 113 H 26 H 94/62 97 08/19/20 08:00 97.9 F 99 10 L 94/62 99 08/19/20 07:50 24 08/19/20 07:45 100 08/19/20 07:36 109 H 08/19/20 07:00 90 15 99/58 96 08/19/20 06:00 92 16 84/54 94 L 08/19/20 05:00 102 H 17 96/55 94 L 08/19/20 04:00 97.5 F L 99 21 98/54 95 08/19/20 03:00 96 10 L 86/62 95 08/19/20 02:00 101 H 20 90/58 94 L 08/19/20 01:00 111 H 17 107/91 96 08/19/20 00:00 98 F 89 18 99/55 98 08/18/20 23:00 98 21 94/59 95 08/18/20 22:00 100 18 117/69 97 08/18/20 21:00 99 20 100/64 98 08/18/20 20:00 98.2 F 105 H 19 96/53 98 08/18/20 19:36 95 08/18/20 19:26 90 08/18/20 19:00 98 19 105/67 100 08/18/20 18:00 106 H 20 126/73 94 L Intake and Output 08/19/20 08/19/20 08/19/20 06:59 14:59 22:59 Intake Total 330 702.864 Output Total 330 153 200 Balance 0 549.864 -200 Intake: IV 80 40 0.9 80 40 Intake, IV Titration 202.864 Amount Heparin Sod,Pork in 0.45% 202.864 NaCl 25,000 unit In 0.45 % NaCl 1 250ml.bag @ 8. 803 UNITS/KG/HR 10 mls/hr IV .Q24H [facility] Rx#: [id number] Oral 250 460 Output: Urine 330 153 200 Other: Voiding Method Indwelling Catheter Indwelling Catheter Indwelling Catheter Weight 114.8 kg Results 08/19/20 04:14 08/19/20 04:14 Cardiac Enzymes 08/19/20 Range/Units 04:14 AST 17 (14-36) U/L Coagulation 08/19/20 Range/Units 07:06 APTT 41.4 H (22.0-30.0) sec CBC 08/19/20 Range/Units 04:14 WBC 10.9 H (3.8-10.6) k/uL RBC 3.13 L (3.80-5.40) m/uL Hgb 9.2 L (11.4-16.0) gm/dL Hct 28.4 L (34.0-46.0) % Plt Count 271 (150-450) k/uL Comprehensive Metabolic Panel 08/19/20 Range/Units 04:14 Sodium 130 L (137-145) mmol/L Potassium 4.2 (3.5-5.1) mmol/L Chloride 97 L (98-107) mmol/L Carbon Dioxide 28 (22-30) mmol/L BUN 38 H (7-17) mg/dL Creatinine 1.36 H (0.52-1.04) mg/dL Glucose 166 H (74-99) mg/dL Calcium 8.9 (8.4-10.2) mg/dL AST 17 (14-36) U/L ALT 10 (4-34) U/L Alkaline Phosphatase 68 (38-126) U/L Total Protein 5.7 L (6.3-8.2) g/dL Albumin 2.9 L (3.5-5.0) g/dL Current Medications Generic Name Dose Route Start Last Admin Trade Name Freq PRN Reason Stop Dose Admin Acetaminophen 650 mg 08/15/20 23:50 08/16/20 00:09 Acetaminophen Tab 325 Mg Tab PO 650 mg Q6HR PRN Administration Fever and/ or Pain Albuterol/Ipratropium 3 ml 08/14/20 12:00 08/19/20 15:57 Ipratropium-Albuterol 3 Ml Neb INHALATION 3 ml RT-QID HARIKA Administration Albuterol/Ipratropium 3 ml 08/14/20 09:10 Ipratropium-Albuterol 3 Ml Neb INHALATION RT-Q2H PRN Shortness Of Breath Or Wheezing Apixaban 5 mg 08/19/20 09:00 08/19/20 09:51 Apixaban 5 Mg Tab PO 5 mg BID HARIKA Administration Ascorbic Acid 1,000 mg 08/19/20 10:00 08/19/20 10:59 Ascorbic Acid 500 Mg Tab PO 1,000 mg DAILY HARIKA Administration Cephalexin 250 mg 08/19/20 09:00 08/19/20 16:10 Cephalexin 250 Mg Cap PO 250 mg Q8HR HARIKA Administration Cholecalciferol 50 mcg 08/19/20 10:00 08/19/20 10:59 Cholecalciferol 25 Mcg (1000 Iu) Tablet PO 50 mcg DAILY HARIKA Administration Furosemide 40 mg 08/19/20 09:00 08/19/20 16:10 Furosemide 40 Mg Tab PO 40 mg BID@0900,1600 HARIKA Administration Insulin Aspart 0 unit 08/15/20 21:00 08/19/20 17:11 Insulin Aspart (Novolog) 100 Unit/Ml Vial SQ 3 unit ACHS HARKIA Administration Protocol Insulin Detemir 16 unit 08/17/20 07:00 08/19/20 07:15 Insulin Detemir (Levemir) 100 Unit/Ml Syr SQ 16 unit DAILY@0700 HARIKA Administration Lisinopril 2.5 mg 08/20/20 09:00 Lisinopril 2.5 Mg Tab PO DAILY [facility] Magnesium Hydroxide 2,400 mg 08/18/20 08:02 08/18/20 17:05 Magnesium Hydroxide 2,400 Mg/10 Ml Cup PO 2,400 mg BID PRN Administration Constipation Metoprolol Succinate 100 mg 08/18/20 09:00 08/19/20 09:52 Metoprolol Succinate (Er) 100 Mg Tab.Er.24h PO 100 mg DAILY HARIKA Administration Miscellaneous Information 1 each 08/15/20 04:55 Potassium Replacement Protocol 1 Each Misc MISCELLANE DAILY PRN Per Protocol Protocol Pantoprazole Sodium 40 mg 08/18/20 09:00 08/19/20 09:52 Pantoprazole 40 Mg Tablet PO 40 mg DAILY HARIKA Administration Spironolactone 25 mg 08/15/20 09:30 08/19/20 09:52 Spironolactone 25 Mg Tab PO 25 mg DAILY HARIKA Administration Timolol Maleate 1 drops 08/19/20 10:00 08/19/20 10:59 Timolol 0.5% Ophth Drops 5 Ml Btl BOTH EYES 1 drops BID HARIKA Administration Tramadol HCl 50 mg 08/15/20 20:46 08/18/20 23:03 Tramadol 50 Mg Tab PO 50 mg QID PRN Administration Mild to Moderate Pain Zolpidem Tartrate 5 mg 08/15/20 20:29 08/18/20 21:29 Zolpidem 5 Mg Tab PO 5 mg HS PRN Administration Insomnia Intake and Output 08/19/20 08/19/20 08/19/20 06:59 14:59 22:59 Intake Total 330 702.864 Output Total 330 153 200 Balance 0 549.864 -200 Intake: IV 80 40 0.9 80 40 Intake, IV Titration 202.864 Amount Heparin Sod,Pork in 0.45% 202.864 NaCl 25,000 unit In 0.45 % NaCl 1 250ml.bag @ 8. 803 UNITS/KG/HR 10 mls/hr IV .Q24H [facility] Rx#: [id number] Oral 250 460 Output: Urine 330 153 200 Other: Voiding Method Indwelling Catheter Indwelling Catheter Indwelling Catheter Weight 114.8 kg 08/19/20 04:14 08/19/20 04:14
[2020-08-20 12:24] LABS: Glucose,Whole Blood 258 mg/dL (75-99)
--- NOTE | 2020-08-20 12:32 | PN ---
PROGRESS NOTE Patient is seen for followup for acute kidney injury. Her renal function has improved with serum creatinine down to 1.2-1.3 mg/dL from 2.0 at peak. The patient is comfortable. She denies any significant complaints. PHYSICAL EXAMINATION: Blood pressure is 112/56, heart rate 70 per minute, she is afebrile. Examination of the heart S1, S2. Examination of the lungs, bilateral breath sounds are heard. Abdomen is soft, nontender. Examination of lower extremities shows edema 1+ bilaterally. [employer] exam grossly intact. LAB: Show sodium 130, potassium 4.2, chloride 97, BUN 38, creatinine 1.36, hemoglobin 9.2 on 08/19/2020. ASSESSMENT: 1. Acute kidney injury, acute tubular necrosis/cardiorenal syndrome. No evidence of obstruction. Serum creatinine 1.3 yesterday. No labs available from today. Lasix was switched to p.o. yesterday. 2. Ventricular tachycardia, maintained on amiodarone. 3. Congestive heart failure, ejection fraction 20-25%, mostly systolic, acute on top of chronic. 4. Metabolic acidosis secondary to renal failure. 5. Hypervolemic hyponatremia, improved. 6. History of atrial fibrillation. PLAN: Continue with current dose of Lasix. Repeat labs in a.m. Maintain salt and fluid restriction. MMODL / IJN: [id number] /
--- NOTE | 2020-08-20 12:41 | P.PN ---
Subjective Patient is resting comfortably in bed She has no shortness of breath at rest no chest discomfort She does have mild lower extremity edema and the lower extremity is bandaged Pulse rate in the 70s Blood pressure 112/56 Breath sounds are reduced bilaterally with occasional crackles Heart sounds S1 and S2 are soft normal but irregular Bilateral lower extremity edema Right lower extremity is bandaged BUN 38 creatinine 1.36 Potassium 4.2 Impression 74-year-old female presenting with a wide complex tachycardia consistent with ventricular tachycardia in the setting of cardio myopathy and the use of flecainide 100 mg twice daily However her coronary arteries are normal and she had a 2-D echo and Doppler study in the month of April as well as in the month of May, this year at [facility], which showed preserved function There is documentation of LV dysfunction in 2012 and 2014 as well as in March 2020 at [facility] Suggest LifeVest This could be transient cardio myopathy related to atrial fibrillation or post covid A wide complex tachycardia/VT is most likely flecainide proarrhythmia I would provide a LifeVest for the next 3-4 months and if her LV function improves then she may not need an ICD However we have to devise a plan for maintaining sinus rhythm I would not use a class I antiarrhythmic drug I would avoid amiodarone given her present pulmonary situation Device implantation at this time carries an increased risk of infection on account of the nonhealing/infected ulcer in the leg Objective - Vital Signs Vital signs: Vital Signs Temp 98.0 F 08/20/20 08:00 Pulse 72 08/20/20 11:55 Resp 16 08/20/20 08:00 BP 112/56 08/20/20 08:00 Pulse Ox 100 08/20/20 08:00 Intake & Output 08/19/20 08/20/20 08/20/20 18:59 06:59 18:59 Intake Total 702.864 500 240 Output Total 353 625 Balance 349.864 -125 240 Weight 114.8 kg Intake: IV 40 0.9 40 Intake, IV Titration 202.864 Amount Heparin Sod,Pork in 0.45% 202.864 NaCl 25,000 unit In 0.45 % NaCl 1 250ml.bag @ 8. 803 UNITS/KG/HR 10 mls/hr IV .Q24H [facility] Rx#: [id number] Oral 460 500 240 Output: Urine 353 625 Other: Voiding Method Indwelling Catheter Indwelling Catheter Indwelling Catheter ABP, PAP, CO, CI - Last Documented Arterial Blood Pressure 121/56 - Labs CBC & Chem 7: 08/19/20 04:14 08/19/20 04:14 Labs: Abnormal Lab Results - Last 24 Hours (Table) 08/19/20 08/19/20 08/20/20 Range/Units 17:07 20:58 06:57 POC Glucose (mg/dL) 190 H 227 H 224 H (75-99) mg/dL 08/20/20 Range/Units 12:12 POC Glucose (mg/dL) 258 H (75-99) mg/dL Microbiology - Last 24 Hours (Table) 08/13/20 21:35 Blood Culture - Final Blood No Growth after 144 hours
--- NOTE | 2020-08-20 12:41 | P.PN ---
Progress Note - Text Patient is resting comfortably in bed She has no shortness of breath at rest no chest discomfort She does have mild lower extremity edema and the lower extremity is bandaged Pulse rate in the 70s Blood pressure 112/56 Breath sounds are reduced bilaterally with occasional crackles Heart sounds S1 and S2 are soft normal but irregular Bilateral lower extremity edema Right lower extremity is bandaged BUN 38 creatinine 1.36 Potassium 4.2 Impression 74-year-old female presenting with a wide complex tachycardia consistent with ventricular tachycardia in the setting of cardio myopathy and the use of flecainide 100 mg twice daily However her coronary arteries are normal and she had a 2-D echo and Doppler study in the month of April as well as in the month of May, this year at [facility], which showed preserved function There is documentation of LV dysfunction in 2012 and 2014 as well as in March 2020 at [facility] Suggest LifeVest This could be transient cardio myopathy related to atrial fibrillation or post covid A wide complex tachycardia/VT is most likely flecainide proarrhythmia I would provide a LifeVest for the next 3-4 months and if her LV function improves then she may not need an ICD However we have to devise a plan for maintaining sinus rhythm I would not use a class I antiarrhythmic drug I would avoid amiodarone given her present pulmonary situation Device implantation at this time carries an increased risk of infection on account of the nonhealing/infected ulcer in the leg
[2020-08-20] MEDS: ACETAMINOPHEN TAB 325 MG TAB PO PRN (16:47)
[2020-08-20 16:49] LABS: Glucose,Whole Blood 325 mg/dL (75-99)
--- NOTE | 2020-08-20 18:19 | P.PN ---
Subjective Progress Note Date: 08/20/20 Principal diagnosis: Tachyarrhythmia; sustained SVT Acute hypoxic respiratory failure/pulmonary edema Severe cardiomyopathy Acute renal injury 74-year-old female patient, known history of cardiac disease including CAD, previous NV, previous history of chronic atrial fibrillation, diabetes mellitus whereas been also infected and recovered from COVID-19 back in May 2020 and she is currently being treated for a stage III right lower extremity wound being treated at [facility] and the patient was discharged recently home. The patient was brought into the hospital as the patient was experiencing some palpitations at home. EMS came to the scene and the patient was found to have a wide complex tachycardia consistent with V. tach. In the emergency department, the patient was given a shock and the patient converted to atrial fibrillation with a controlled rate. She was in acute pulmonary edema. She was hypoxic. She was unresponsive. At that point the patient was intubated and placed on a mechanical ventilator. 08/19/2020 the patient is seen and evaluated in ICU; remains an atrial fibrillation with a controlled rate. No ventricular arrhythmias. Cardiology to evaluate to decide to discharge this patient home with a LifeVest with plan for AICD at a later stage. She is doing extremely well. She is on oxygen at 2 L with a pulse ox of 99%. She has been adequately diuresed. Hemodynamically stable. Blood pressure is stable. The labs from today shows a hemoglobin of 9.2, creatinine is stable at 1.36 and the sodium is at 130. She is on IV heparin. Her lower extremity edema is also improving. Patient will remain on current management; pulmonary service recommending to stop IV heparin and start the patient on Eliquis 5 mg by mouth twice a day; Continue oral amiodarone 400 mg 2 times a day and Toprol 100 mg XL; patient has been started on lisinopril 5 mg daily for cardiomyopathy; Keflex and local treatment to right lower extremity wound 08/20/2020 Patient is seen and evaluated in room at bedside; patient denies any specific complaints; vital signs are reviewed and reveal blood pressure of 112/56 and pulse of 70 Patient is admitted with wide complex tachycardia consistent with sustained V. tach in setting of severe cardiomyopathy and fllecainide 100 mg twice a day; cardiology on board and recommending LifeVest; per cardiology wide complex tachycardia couldn't be induced by flecainide versus post covid syndrome; patient will be fitted for LifeVest for next 3-4 months and if left ventricular function improves patient might not need an ICD Objective - Vital Signs Vital signs: Vital Signs Temp 98.0 F 08/20/20 08:00 Pulse 72 08/20/20 11:55 Resp 16 08/20/20 08:00 BP 112/56 08/20/20 08:00 Pulse Ox 100 08/20/20 08:00 Intake & Output 08/19/20 08/20/20 08/20/20 18:59 06:59 18:59 Intake Total 702.864 500 240 Output Total 353 625 Balance 349.864 -125 240 Weight 114.8 kg Intake: IV 40 0.9 40 Intake, IV Titration 202.864 Amount Heparin Sod,Pork in 0.45% 202.864 NaCl 25,000 unit In 0.45 % NaCl 1 250ml.bag @ 8. 803 UNITS/KG/HR 10 mls/hr IV .Q24H [facility] Rx#: [id number] Oral 460 500 240 Output: Urine 353 625 Other: Voiding Method Indwelling Catheter Indwelling Catheter Indwelling Catheter ABP, PAP, CO, CI - Last Documented Arterial Blood Pressure 121/56 - Exam Gen. appearance, calm and comfortable, obese, and alert and currently on 2L of oxygen by nasal cannula Head exam was generally normal. There was no scleral icterus or corneal arcus. Mucous membranes were moist. Neck was supple and without jugular venous distension, thyromegaly, or carotid bruits. Carotids were easily palpable bilaterally. There was no adenopathy. Orogastric and orotracheal tube are both in place Lungs sounds are diminished in lung bases bilaterally Heart sounds are irregular, rate is controlled for now, irregular S1-S2 consistent with atrial fibrillation. No cervical murmurs appreciated. Overall heart sounds are distant. Abdominal exam revealed normal bowel sounds. The abdomen was soft, non-tender, and without masses, organomegaly, or appreciable enlargement of the abdominal aorta. Examination of the extremities revealed diminished pulses in the radial, femoral and pedal pulses. There was no cyanosis, clubbing or edema. Examination of the skin shows a stage III wound in the right lower extremity, lateral leg and the base of the wound is dry clean and intact at this point in time and there is no purulent discharge and there is no surrounding cellulitis. Neurologically the patient sedated and the patient is calm and comfortable. - Labs CBC & Chem 7: 08/19/20 04:14 08/19/20 04:14 Labs: Abnormal Lab Results - Last 24 Hours (Table) 08/19/20 08/19/20 08/20/20 Range/Units 17:07 20:58 06:57 POC Glucose (mg/dL) 190 H 227 H 224 H (75-99) mg/dL 08/20/20 Range/Units 12:12 POC Glucose (mg/dL) 258 H (75-99) mg/dL Microbiology - Last 24 Hours (Table) 08/13/20 21:35 Blood Culture - Final Blood No Growth after 144 hours Assessment and Plan Assessment: 1. Tachyarrhythmia; sustained SVT - Continue oral amiodarone 400 mg 2 times a day and Toprol 100 mg XL, and the patient has been also started on lisinopril 5 mg by mouth daily regarding her c ardiomyopathy. 2. Acute hypoxic respiratory failure/pulmonary edema; saturating well on O2 at 2 L per nasal cannula 3. Severe cardiomyopathy; EF 20-25% with moderate to severe mitral regurg; patient is started on lisinopril 5 mg daily - Patient is to be fitted with LifeVest with AICD implantation at a further stay 4. Chronic atrial fibrillation; remains rate controlled and anticoagulated 5. Acute renal injury; improving 6. UTI; cultures are negative so far; patient is recommended to complete a five-day course of antibiotic therapy 7. Stage III lower extremity; continue with antibiotic therapy in form of Keflex and local wound care DVT prophylaxis; SCDs/systemic anticoagulation CODE STATUS; full code
[2020-08-20 20:25] LABS: Glucose,Whole Blood 303 mg/dL (75-99)
[2020-08-20] MEDS ORDERED: INSULIN DETEMIR (LEVEMIR) 100 UNIT/ML SYR SQ SCH (21:00)
[2020-08-21] MEDS: traMADol 50 MG TAB PO PRN ×2 (06:02→18:35)
[2020-08-21] MEDS ORDERED: INSULIN DETEMIR (LEVEMIR) 100 UNIT/ML SYR SQ SCH ×2 (07:00→21:00)
[2020-08-21 07:12] LABS: Glucose,Whole Blood 223 mg/dL (75-99)
[2020-08-21] MEDS: INSULIN ASPART (NovoLOG) 100 UNIT/ML VIAL SQ SCH ×4 (07:18→20:10)
[2020-08-21] MEDS: CEPHALEXIN 250 MG CAP PO SCH ×2 (07:18→17:53)
[2020-08-21 07:35] LABS: Basophils # (A) 0.1 k/uL (0-0.2); Basophils % (A) 1 %; Eosinophils # (A) 0.5 k/uL (0-0.7); Eosinophils % (A) 5 %; HCT 30.4 % (34.0-46.0); HGB 10.2 gm/dL (11.4-16.0); Lymphocytes # (A) 1.2 k/uL (1.0-4.8); Lymphocytes % (A) 12 %; MCH 30.2 pg (25.0-35.0); MCHC 33.4 g/dL (31.0-37.0); MCV 90.5 fL (80.0-100.0); Mean Platelet Volume 8.1; Monocytes # (A) 0.6 k/uL (0-1.0); Monocytes % (A) 6 %; Neutrophils # (A) 7.4 k/uL (1.3-7.7); Neutrophils % (A) 75 %; Platelet Count 350 k/uL (150-450); RBC 3.36 m/uL (3.80-5.40); RDW 14.9 % (11.5-15.5); WBC 9.9 k/uL (3.8-10.6)
[2020-08-21 07:43] LABS: Calcium 9.1 mg/dL (8.4-10.2); Potassium 4.8 mmol/L (3.5-5.1)
[2020-08-21] MEDS: IPRATROPIUM-ALBUTEROL 3 ML NEB INHALATION SCH ×4 (07:49→19:36)
[2020-08-21] MEDS: APIXABAN 5 MG TAB PO SCH ×2 (09:22→20:09)
[2020-08-21] MEDS: MAGNESIUM HYDROXIDE 2,400 MG/10 ML CUP PO PRN (09:22)
[2020-08-21] MEDS: CHOLECALCIFEROL 25 MCG (1000 IU) TABLET PO SCH (09:22)
[2020-08-21] MEDS: SPIRONOLACTONE 25 MG TAB PO SCH (09:22)
[2020-08-21] MEDS: METOPROLOL SUCCINATE (ER) 100 MG TAB.ER.24H PO SCH (09:22)
[2020-08-21] MEDS: FUROSEMIDE 40 MG TAB PO SCH (09:22)
[2020-08-21] MEDS: ASCORBIC ACID 500 MG TAB PO SCH (09:22)
[2020-08-21] MEDS: PANTOPRAZOLE 40 MG TABLET PO SCH (09:22)
[2020-08-21] MEDS: TIMOLOL 0.5% OPHTH DROPS 5 ML BTL BOTH EYES SCH ×2 (09:25→20:09)
--- NOTE | 2020-08-21 09:28 | P.PN ---
Subjective Progress Note Date: 08/21/20 74-year-old female patient, known history of cardiac disease including CAD, previous SD, previous history of chronic atrial fibrillation, diabetes mellitus whereas been also infected and recovered from COVID-19 back in May 2020 and she is currently being treated for a stage III right lower extremity wound being treated at [facility] and the patient was discharged recently home. The patient was brought into the hospital as the patient was experiencing some palpitations at home. EMS came to the scene and the patient was found to have a wide complex tachycardia consistent with V. tach. In the emergency department, the patient was given a shock and the patient converted to atrial fibrillation with a controlled rate. She was in acute pulmonary edema. She was hypoxic. She was unresponsive. At that point the patient was intubated and placed on a mechanical ventilator. She is currently sedated with propofol and she is calm and comfortable. Probable resolving at 20 mg/kg per minute. She is on assist control mode at the rate of 26 and a tidal volume of 400 and FiO2 of 70% with a PEEP of 8. Peak air pressures 34 static pressure of 27. FiO2 was dropped down to 50%. Chest x-ray is showing some improvement in the bilateral pulmonary edema compared to yesterday. ET tube is high in the trachea and is to be repositioned. As stated, the patient is currently on no pressors. The morning blood gases showed a pH of 7.47 with a pCO2 of 37 and pO2 of 241 and this was on FiO2 of 100%. The white cell count at 16.3. The patient's lactic acid level is at 2.8. Creatinine was up to 2.0 to consistent with an acute kidney injury. Her troponin was 0.80. The patient's proBNP level is 3940. Rest of the blood work and x-rays shows a potassium level of 5.0 with a creatinine of 2.02 and a serum bicarb of 20. Bedside echocardiogram was done and the preliminary report is consistent with severe cardiomyopathy with an ejection fraction of less than 20%. On today's evaluation of 08/15/2020, the patient is being seen for a follow-up. As stated earlier, the patient has history of cardiac disease, COPD and chronic A. fib and the patient presented with wide complex tachycardia/V. tach. She is currently intubated on a mechanical ventilator. Intubation was done because of an acute pulmonary edema. On her echocardiogram, the patient was found to have an ejection fraction of 20-25% and was consistent with systolic heart failure. She has some diastolic filling abnormality. She also has no evidence of aortic disease, moderate to severe mitral regurgitation, [id number] pulmonary hypertension with a PA pressure of 39. The patient currently is in a Hx fibril lation rhythm. Amiodarone is still running at 0.5 mg per minute and this needs to be switched to oral maintenance. She is on IV heparin for now as the patient was having some issues with acute kidney injury and lines had to be established. Yesterday, triple lumen catheter was inserted in the left IJ. The CVP currently is at 11. The chest x-ray from today there is evidence of cardiomegaly, bilateral pleural effusions, interstitial edema, triple lumen cath in the left IJ, ET tube is in a good location as she was pushed and the lip line of 23. OG tube is also in place. The patient remains on mechanical ventilator. This morning she is on a assist-control of 16 which was dropped down with a tidal volume of 400 and FiO2 of 50% with a PEEP of 6. Morning blood gases that was done on a PEEP of 8 showed a pH of 7.58 with a pCO2 of 30 and pO2 of 139. This was also done at the rate of 26 the patient is still being diuresed with IV Lasix. She is receiving Lasix 40 mg IV every 12 hours. Creatinine is down to 1.8. Urine output is in order of 100 mL an hour and the neck fluid balance over the past 24 hours has been -6 99 mL. Ultrasound the kidney was done and it showed no evidence of any hydronephrosis. She is afebrile. Currently she is on no pressors. She is sedated with propofol which is running at 50 mcg/kg per minute. 08/16/2020, the patient is extubated. After successfully diuresing the patient, the patient was weaned off the sedation, she was able to give us a good weaning parameters and good spontaneous breathing trial and following that she was extubated to nasal cannula and this morning she is sitting up on a chair and she is on oxygen at 4 L which was later dropped down to 2 L nasal cannula. The chest x-ray from today is showing interval removal of the orotracheal tube. There is also cardiomegaly. There is also small bilateral pleural effusions. There is also interstitial edema which is essentially improving. Lung volumes are still. The patient is currently in atrial fibrillation and the rate is somewhere between 100-120. The patient is currently on amiodarone 400 mg by mouth twice a day. Lopressor dose was adjusted to 50 mg by mouth daily XL and the patient was started on Aldactone 25 mg by mouth daily as of yesterday and she was also started on lisinopril 5 mg. She is still being diuresed with Lasix receiving a dose of 40 mg IV every 12 hours. As mentioned earlier, she has impaired ejection fraction with systolic heart failure and ejection fraction of 20-25% and mild pulmonary hypertension. Her current CVP is around 8. The over all fluid balance is -2.9 L over the past 24 hours and the patient has had a hours a negative fluid balance again. Electrolytes from today shows a potassium level of 4.2 and a creatinine is at 1.3 which is essentially improved compared to yesterday and the renal function continues to improve. In terms of her abnormal UA, the urine cultures still pending. Blood cultures of been negative and the patient is currently on IV Rocephin as an empiric antibiotic coverage. She is on Levemir insulin 10 units along with a sliding scale coverage and blood sugars are being monitored. No other significant events otherwise for now. She is off sedation. She is awake and alert. She'll be advanced on her diet and currently she is on diabetic carb Consistent diet. 08/17/2020, the patient remains extubated and currently she is on oxygen at 3 L., Comfortable and she is sitting up on a chair. She is on diuretics and she is currently on Lasix 40 mg by mouth IV twice a day and Aldactone 25 mg by mouth daily. She remains in a negative fluid balance. Lasix was held yesterday in consultation for cardiac catheterization. I was later on the form that the patient had a cardiac catheterization last year and her coronaries were essentially normal. No plans to do a cardiac catheterization Lasix was restarted. She is headed towards a negative fluid balance for now. The plan is to consider an AICD placement and the patient was seen by Dr. Gordon today. Otherwise, her cardiac rhythm is atrial fibrillation the patient remains on IV heparin for now. No long-term anticoagulation until a decision is made regarding AICD placement. She remains on IV Rocephin and urine cultures are negative for now. The white cell count today is at 15 and creatinine is at 1.2 which is obviously improving as the patient had a cardiorenal factors and he continues to have improved with a creatinine. She is on Levemir insulin running at 16 units and her dose was adjusted today because of ongoing hyperglycemia. 08/18/2020, the patient remains extubated on 2 L of oxygen by nasal cannula. Doing well. No acute complaints. Diuresing well. She is in a negative fluid balance chest x-ray still showing some small lung volumes and atelectatic changes in lung bases and the patient has edema lower extremities bilaterally. She remains on Lasix 40 mg IV every 12 hours. She remains on Aldactone 25 mg by mouth daily. She remains on amiodarone orally and her cardiac rhythm remains a chair fibrillation and the patient remains on IV heparin. Metoprolol is also being utilized for rate control. Her renal function shows a creatinine of 1.23. She is on IV heparin with a therapeutic PTT. The patient is awaiting a final recommendation regarding an AICD placement. Awaiting a consultation from Dr. Gordon. No fever. No chills. Remains on IV Rocephin. Remains on Levemir insulin for blood sugar control. Her Levemir is currently running at 16 units along with his vascular coverage. No other significant events overnight. 08/19/2020 the patient remains an atrial fibrillation with a controlled rate. No ventricular arrhythmias. The decision to cardiology is to discharge this patient home with a LifeVest to be considered at a later stage for an AICD. She is doing extremely well. She is on oxygen at 2 L with a pulse ox of 99%. She has been adequately diuresed. Hemodynamically stable. Blood pressure is stable. The labs from today shows a hemoglobin of 9.2, creatinine is stable at 1.36 and the sodium is at 130. She is on IV heparin. Her lower extremity edema is also improving. 08/20/2020, seeing this patient for a follow-up. She was admitted intensive care unit and the patient got transferred to a telemetry unit yesterday. She is cardiomyopathy. She came to us with a cardiac is ventilator dependent respiratory failure and she is back on oxygen at 2 L. No significant respi ratory distress. No significant arrhythmias. Cardiac rhythm remains atrial fibrillation. Cardiology has opted to give her a LifeVest and with an AICD at a later stage knowing that she has chronic wounds in lower extremities worse on the right. Noted the wounds are not infected and there about healing slowly. She is receiving wound care. She remains on diuretics with a combination of Lasix and Aldactone. No signs of any significant respiratory distress this morning. The patient remains on Lasix 40 mg twice a day. She is also on Aldactone 25 mg by mouth daily. She is on Keflex regarding her lower extremity wounds. She is on metoprolol 100 mg once a day, Zestril 2.5 mg by mouth daily regarding her cardiomyopathy. She is also on long-term articulation with Eliquis 5 mg by mouth twice a day. She is tolerating her diet. She is awake and alert. 08/21/2020, the patient is doing well. The left IJ triple-lumen catheter will be removed. Creatinine is stable at 1.2. Remains on 2 L about 2 by nasal cannula. No cardiac events. Remains on a combination of Lasix and Aldactone. Restarted on metoprolol 100 mg by mouth daily and Zestril 2.5 mg by mouth daily. BP is under adequate control. She is on anticoagulation. She is a good candidate for AICD placement of a later stage. No respiratory difficulties. Communicating. Tolerating her diet. Objective - Vital Signs Vital signs: Vital Signs Temp 98.0 F 08/21/20 04:00 Pulse 80 08/21/20 08:17 Resp 18 08/21/20 04:00 BP 116/70 08/21/20 04:00 Pulse Ox 98 08/21/20 04:00 Intake & Output 08/20/20 08/21/20 08/21/20 18:59 06:59 18:59 Intake Total 840 120 Output Total 9988 543 1841 Balance -327 -388 -3899 Weight 114.2 kg Intake: Oral 840 120 Output: Urine 2428 448 2966 Other: Voiding Method Indwelling Catheter Indwelling Catheter # Bowel Movements 0 ABP, PAP, CO, CI - Last Documented Arterial Blood Pressure 121/56 - Exam Gen. appearance, calm and comfortable, obese, and alert and currently on 2L of oxygen by nasal cannula Head exam was generally normal. There was no scleral icterus or corneal arcus. Mucous membranes were moist. Neck was supple and without jugular venous distension, thyromegaly, or carotid bruits. Carotids were easily palpable bilaterally. There was no adenopathy. Orogastric and orotracheal tube are both in place Lungs sounds are diminished in lung bases bilaterally Heart sounds are irregular, rate is controlled for now, irregular S1-S2 consistent with atrial fibrillation. No cervical murmurs appreciated. Overall heart sounds are distant. Abdominal exam revealed normal bowel sounds. The abdomen was soft, non-tender, and without masses, organomegaly, or appreciable enlargement of the abdominal aorta. Examination of the extremities revealed diminished pulses in the radial, femoral and pedal pulses. There was no cyanosis, clubbing or edema. Examination of the skin shows a stage III wound in the right lower extremity, lateral leg and the base of the wound is dry clean and intact at this point in time and there is no purulent discharge and there is no surrounding cellulitis. Neurologically the patient sedated and the patient is calm and comfortable. - Labs CBC & Chem 7: 08/21/20 07:20 08/21/20 07:20 Labs: Abnormal Lab Results - Last 24 Hours (Table) 08/20/20 08/20/20 08/20/20 Range/Units 12:12 16:47 20:03 RBC (3.80-5.40) m/uL Hgb (11.4-16.0) gm/dL Hct (34.0-46.0) % Sodium (137-145) mmol/L BUN (7-17) mg/dL Creatinine (0.52-1.04) mg/dL Glucose (74-99) mg/dL POC Glucose (mg/dL) 258 H 325 H 303 H (75-99) mg/dL 08/21/20 08/21/20 08/21/20 Range/Units 07:11 07:20 07:20 RBC 3.36 L (3.80-5.40) m/uL Hgb 10.2 L (11.4-16.0) gm/dL Hct 30.4 L (34.0-46.0) % Sodium 134 L (137-145) mmol/L BUN 47 H (7-17) mg/dL Creatinine 1.21 H (0.52-1.04) mg/dL Glucose 197 H (74-99) mg/dL POC Glucose (mg/dL) 223 H (75-99) mg/dL Assessment and Plan Plan: 1 acute hypoxic respiratory failure/pulmonary edema, extubated to nasal cannula. She is hemodynamically stable at this point in time. She is currently on 2 L of oxygen by nasal cannula. Remains stable 2 sustained V. tach, post cardioversion and the patient's current rhythm is atrial fibrillation with a controlled rate, the patient remains on amiodarone 400 mg by mouth twice a day in combination with metoprolol XL 50 mg by mouth d aily and the cardiac rhythm is atrial fibrillation. No further episodes of V. tach and the patient had a cardiac catheterization last year that came back normal coronaries and the patient is being considered for AICD this stage and cardiology opted to wait until her wounds in her right lower extremity has essentially healed. 3 cardiomyopathy with an ejection fraction of less than 20%-25% along with moderate to severe mitral regurgitation, likely of a new onset thing a cardiac catheterization, rule out ischemic cardiomyopathy, considered AICD 4 chronic atrial fibrillation maintained on a combination of amiodarone, metoprolol and IV heparin for now pending cardiac catheterization 5 coronary artery disease appears myocardial infarction 6 previous history of DVT 7 hyperlipidemia 8 macular degeneration 9 remote history of CVA 10 acute kidney injury with oligoria, , creatinine is improving 11 metabolic acidosis secondary to acute kidney injury , resolved 12 COVID-19 infection treated and subsequent recovery back to May 2020 13 stage III right lower extremity wound without any signs of infection or cellulitis 14 suspected UTI cultures are negative and the patient is completing a 5 day course of Rocephin, no signs of any acute infection at this point in time. Plan Transferred out of the intensive care unit yesterday without any major issues. 02 2 L of oxygen by nasal cannula. IV fluids to KVO Continue Lasix to oral 40 mg by mouth twice a day Eliquis 5 mg by mouth twice a day Continue oral amiodarone 400 mg 2 times a day and Toprol 100 mg XL, and the patient has been also started on Zestril 2.5 mg by mouth daily regarding her cardiomyopathy. Dr. Gordon regarding AICD 80 stage. Meanwhile, arrange a life vest for this patient Resume Keflex and continue with medical any regarding the right lower extremity wound Levemir insulin 16 U in am Lumen catheter from the left IJ and often this patient a peripheral line. Will need a LifeVest prior to her discharge She will be able to leave to a telemetry unit today.
[2020-08-21 11:40] LABS: Glucose,Whole Blood 329 mg/dL (75-99)
--- NOTE | 2020-08-21 11:49 | P.PN ---
Subjective Tachyarrhythmia; sustained SVT Acute hypoxic respiratory failure/pulmonary edema Severe cardiomyopathy Acute renal injury 74-year-old female patient, known history of cardiac disease including CAD, previous [place], previous history of chronic atrial fibrillation, diabetes mellitus whereas been also infected and recovered from COVID-19 back in May 2020 and she is currently being treated for a stage III right lower extremity wound being treated at [facility] and the patient was discharged recently home. The patient was brought into the hospital as the patient was experiencing some palpitations at home. EMS came to the scene and the patient was found to have a wide complex tachycardia consistent with V. tach. In the emergency department, the patient was given a shock and the patient converted to atrial fibrillation with a controlled rate. She was in acute pulmonary edema. She was hypoxic. She was unresponsive. At that point the patient was intubated and placed on a mechanical ventilator. 08/19/2020 the patient is seen and evaluated in ICU; remains an atrial fibrillation with a controlled rate. No ventricular arrhythmias. Cardiology to evaluate to decide to discharge this patient home with a LifeVest with plan for AICD at a later stage. She is doing extremely well. She is on oxygen at 2 L with a pulse ox of 99%. She has been adequately diuresed. Hemodynamically stable. Blood pressure is stable. The labs from today shows a hemoglobin of 9.2, creatinine is stable at 1.36 and the sodium is at 130. She is on IV heparin. Her lower extremity edema is also improving. Patient will remain on current management; pulmonary service recommending to sto p IV heparin and start the patient on Eliquis 5 mg by mouth twice a day; Continue oral amiodarone 400 mg 2 times a day and Toprol 100 mg XL; patient has been started on lisinopril 5 mg daily for cardiomyopathy; Keflex and local treatment to right lower extremity wound 08/20/2020 Patient is seen and evaluated in room at bedside; patient denies any specific complaints; vital signs are reviewed and reveal blood pressure of 112/56 and pulse of 70 Patient is admitted with wide complex tachycardia consistent with sustained V. tach in setting of severe cardiomyopathy and fllecainide 100 mg twice a day; cardiology on board and recommending LifeVest; per cardiology wide complex tachycardia couldn't be induced by flecainide versus post covid syndrome; patient will be fitted for LifeVest for next 3-4 months and if left ventricular function improves patient might not need an ICD 08/21/2020 This is a pleasant 74 years old female with multiple medical problems presents with accelerated heart rate and chest pain found to have V. tach. Echocardiogram showed severely myelopathic with ejection fraction 20-25%, cardiology team on the case and recommended LifeVest and follow-up as an outpatient. This morning patient is lying in bed comfortable not in distress, mildly tachypneic. Labs including CBC and BMP looks stable with creatinine is stable at 1.2. Patient also stated that she fell on the front porch and androgen her right leg. Patient is currently on small dose of Keflex to 50 mg 3 times a day.Call wound consult for right leg Patient sugar still uncontrolled and her Levemir increased 18 units daily up to 20 minutes daily and 10 units at bedtime up to 15 units at bedtime Patient currently is on oral Lasix 40 mg twice daily, Eliquis 5 mg, insulin, metoprolol, Protonix.Patient has a Merida catheter and wants to keep her for now. Patient may benefit from ECF for rehab upon discharge Objective - Vital Signs Vital signs: Vital Signs Temp 98.0 F 08/21/20 04:00 Pulse 84 08/21/20 11:31 Resp 18 08/21/20 04:00 BP 116/70 08/21/20 04:00 Pulse Ox 98 08/21/20 04:00 Intake & Output 08/20/20 08/21/20 08/21/20 18:59 06:59 18:59 Intake Total 840 120 Output Total 3649 624 9655 Balance -660 800 -1380 Weight 114.2 kg Intake: Oral 840 120 Output: Urine 5545 544 8825 Other: Voiding Method Indwelling Catheter Indwelling Catheter # Bowel Movements 0 ABP, PAP, CO, CI - Last Documented Arterial Blood Pressure 121/56 - Exam -Gen. appearance, calm and comfortable, obese, and alert and currently on 2L of oxygen by nasal cannula. Obese Head exam was generally normal. There was no scleral icterus or corneal arcus. Mucous membranes were moist. Neck was supple and without jugular venous distension, thyromegaly, or carotid bruits. Carotids were easily palpable bilaterally. There was no adenopathy. Orogastric and orotracheal tube are both in place Lungs sounds are diminished in lung bases bilaterally Heart sounds are irregular, rate is controlled for now, irregular S1-S2 consistent with atrial fibrillation. No cervical murmurs appreciated. Overall heart sounds are distant. -Abdominal exam revealed normal bowel sounds. The abdomen was soft, non-tender, and without masses, organomegaly, or appreciable enlargement of the abdominal aorta. Merida catheter is placed Examination of the extremities revealed diminished pulses in the radial, femoral and pedal pulses. There was no cyanosis, clubbing or edema. Examination of the skin shows a stage III wound in the right lower extremity, lateral leg and the base of the wound is dry clean and intact at this point in time and there is no purulent discharge and there is no surrounding cellulitis. Neurologically the patient sedated and the patient is calm and comfortable. - Labs CBC & Chem 7: 08/21/20 07:20 08/21/20 07:20 Labs: Abnormal Lab Results - Last 24 Hours (Table) 08/20/20 08/20/20 08/20/20 Range/Units 12:12 16:47 20:03 RBC (3.80-5.40) m/uL Hgb (11.4-16.0) gm/dL Hct (34.0-46.0) % Sodium (137-145) mmol/L BUN (7-17) mg/dL Creatinine (0.52-1.04) mg/dL Glucose (74-99) mg/dL POC Glucose (mg/dL) 258 H 325 H 303 H (75-99) mg/dL 08/21/20 08/21/20 08/21/20 Range/Units 07:11 07:20 07:20 RBC 3.36 L (3.80-5.40) m/uL Hgb 10.2 L (11.4-16.0) gm/dL Hct 30.4 L (34.0-46.0) % Sodium 134 L (137-145) mmol/L BUN 47 H (7-17) mg/dL Creatinine 1.21 H (0.52-1.04) mg/dL Glucose 197 H (74-99) mg/dL POC Glucose (mg/dL) 223 H (75-99) mg/dL Assessment and Plan Assessment: 1. Tachyarrhythmia; sustained SVT - Continue Toprol 100 mg XL, and the patient has been also started on lisinopril 2.5 mg by mouth daily regarding her cardiomyopathy. 2. Acute hypoxic respiratory failure/pulmonary edema; saturating well on O2 at 2 L per nasal cannula. Improved continue with oral Lasix 3. Severe cardiomyopathy; EF 20-25% with moderate to severe mitral regurg; patient is started on lisinopril 2.5 mg daily - Patient is to be fitted with LifeVest with AICD implantation at a further stay 4. Chronic atrial fibrillation; remains rate controlled and anticoagulated 5. Acute renal injury; improving 6. UTI; cultures are negative so far; patient is recommended to complete a five-day course of antibiotic therapy 7. Stage III lower extremity; continue with antibiotic therapy in form of Keflex and local wound care DVT prophylaxis; SCDs/systemic anticoagulation CODE STATUS; full code
--- NOTE | 2020-08-21 11:54 | P.PN ---
Subjective Patient is resting comfortably in bed No respiratory distress Minimal lower extremity edema Breath sounds are reduced bilaterally but no rhonchi no crackles Heart sounds are irregular, she is in atrial fibrillation Pulse rate in the 80s, afebrile 98.4F, respirations 18 and blood pressure 113/73 mmHg White count 9.9, hemoglobin 10.2, platelet count 350,000 Sodium 134, potassium 4.8, BUN 47 and creatinine 1.21 Impression Severe nonischemic cardio myopathy Ventricular tachycardia, likely flecainide proarrhythmia Suggest LifeVest for severe nonischemic cardiomyopathy Continue beta blockers Continue anticoagulation Continue Lasix and spironolactone Maninder inhibitors/angiotensin receptor blockers in the future Objective - Vital Signs Vital signs: Vital Signs Temp 98.4 F 08/21/20 08:00 Pulse 80 08/21/20 11:47 Resp 18 08/21/20 08:00 BP 113/73 08/21/20 08:00 Pulse Ox 99 08/21/20 08:00 Intake & Output 08/20/20 08/21/20 08/21/20 18:59 06:59 18:59 Intake Total 840 120 Output Total 0198 285 0714 Balance -660 -800 -1380 Weight 114.2 kg Intake: Oral 840 120 Output: Urine 4935 820 9148 Other: Voiding Method Indwelling Catheter Indwelling Catheter Indwelling Catheter # Bowel Movements 0 ABP, PAP, CO, CI - Last Documented Arterial Blood Pressure 121/56 - Labs CBC & Chem 7: 08/21/20 07:20 08/21/20 07:20 Labs: Abnormal Lab Results - Last 24 Hours (Table) 08/20/20 08/20/20 08/20/20 Range/Units 12:12 16:47 20:03 RBC (3.80-5.40) m/uL Hgb (11.4-16.0) gm/dL Hct (34.0-46.0) % Sodium (137-145) mmol/L BUN (7-17) mg/dL Creatinine (0.52-1.04) mg/dL Glucose (74-99) mg/dL POC Glucose (mg/dL) 258 H 325 H 303 H (75-99) mg/dL 08/21/20 08/21/20 08/21/20 Range/Units 07:11 07:20 07:20 RBC 3.36 L (3.80-5.40) m/uL Hgb 10.2 L (11.4-16.0) gm/dL Hct 30.4 L (34.0-46.0) % Sodium 134 L (137-145) mmol/L BUN 47 H (7-17) mg/dL Creatinine 1.21 H (0.52-1.04) mg/dL Glucose 197 H (74-99) mg/dL POC Glucose (mg/dL) 223 H (75-99) mg/dL 08/21/20 Range/Units 11:38 RBC (3.80-5.40) m/uL Hgb (11.4-16.0) gm/dL Hct (34.0-46.0) % Sodium (137-145) mmol/L BUN (7-17) mg/dL Creatinine (0.52-1.04) mg/dL Glucose (74-99) mg/dL POC Glucose (mg/dL) 329 H (75-99) mg/dL
--- NOTE | 2020-08-21 12:46 | PN ---
PROGRESS NOTE Patient is seen for followup for acute kidney injury. Her renal function has improved. Overall, patient is doing well. Creatinine down to 1.2 today. PHYSICAL EXAMINATION: Blood pressure 113/73, heart rate 68 per minute. She is afebrile. Examination of the heart S1, S2. Examination of the lungs, bilateral breath sounds are heard. Decreased breath sounds at bases. Examination of lower extremities shows chronic skin changes, edema 1+ bilaterally. Left foot is currently wrapped. LAB: Show sodium of 134, potassium 4.8, BUN 47, creatinine 1.2, hemoglobin 10.2 g/dL. Calcium was 9.1. ASSESSMENT: 1. Acute kidney injury cardiorenal/acute tubular necrosis, currently improved. Creatinine is down to 1.2. Lasix is currently p.o. 2. Ventricular tachycardia, maintained on amiodarone. 3. Congestive heart failure, systolic acute on top of chronic. 4. Cardiomyopathy, ejection fraction 20-25%. 5. Metabolic acidosis, now improved. 6. History of atrial fibrillation. 7. Hypervolemic hyponatremia. PLAN: Continue with the Lasix. We can increase to 60 mg p.o. b.i.d. The patient will need followup as outpatient with monitoring of labs as well. MMODL / IJN: [id number] /
[2020-08-21 16:49] LABS: Glucose,Whole Blood 262 mg/dL (75-99)
[2020-08-21] MEDS: FUROSEMIDE 20 MG TAB PO SCH (17:53)
[2020-08-21] MEDS: ACETAMINOPHEN TAB 325 MG TAB PO PRN (20:10)
[2020-08-21 20:24] LABS: Glucose,Whole Blood 298 mg/dL (75-99)
[2020-08-22] MEDS: traMADol 50 MG TAB PO PRN ×2 (01:04→07:03)
[2020-08-22] MEDS: CEPHALEXIN 250 MG CAP PO SCH ×2 (01:04→09:19)
[2020-08-22 07:00] LABS: Glucose,Whole Blood 208 mg/dL (75-99)
[2020-08-22] MEDS ORDERED: INSULIN DETEMIR (LEVEMIR) 100 UNIT/ML SYR SQ SCH (07:00)
[2020-08-22] MEDS: INSULIN ASPART (NovoLOG) 100 UNIT/ML VIAL SQ SCH ×2 (07:03→12:01)
--- NOTE | 2020-08-22 08:04 | P.DS ---
Providers Date of admission: 08/13/20 22:02 Attending physician: Luis Shirley Consults: 08/13/20 22:02 Consult Physician Stat Consulting Provider: Trevor Regalado Consult Reason/Comments: Respiratory failure; hypoxia; intubated patient; tachyarrhythmia Do you want consulting provider notified?: Already Contacted Consult Physician Urgent Consulting Provider: Ramos Mckenna Consult Reason/Comments: Tachyarrhythmia Do you want consulting provider notified?: Already Contacted 08/14/20 09:11 Consult Physician Routine Consulting Provider: Veronica Chavez Consult Reason/Comments: CHAITANYA Do you want consulting provider notified?: Yes 08/17/20 10:31 Consult Physician Routine Consulting Provider: Wero Pete Consult Reason/Comments: AICD Do you want consulting provider notified?: Yes Primary care physician: Luis Shirley - Discharge Diagnosis(es) (1) Tachyarrhythmia Current Visit: Yes Status: Acute (2) Diabetes Current Visit: No Status: Acute (3) Atrial fibrillation Current Visit: Yes Status: Acute (4) Pulmonary edema Current Visit: Yes Status: Acute (5) Leg ulcer, left Current Visit: Yes Status: Acute Hospital Course: This discharge summary 74-year-old white female essentially admitted for tachyarrhythmia. Ended up having significant testing and was placed on the ICU due to restaurant distress. The patient was weaned and stabilized. Cardiology was consulted and had significant discussion whether she should have AICD versus LifeVest. We will now have LifeVest and follow for the next 3-4 months. The patient is discharged in stable condition to follow-up in about one week. Patient Condition at Discharge: Stable Plan - Discharge Summary Discharge Rx Participant: No New Discharge Prescriptions: New Furosemide [Lasix] 60 mg PO BID@0900,1600 #180 tab Metoprolol Succinate (ER) [Toprol XL] 100 mg PO DAILY #30 tab.er.24h lisinopriL [Zestril] 2.5 mg PO DAILY #30 tab Continue Potassium 297 mg PO W/SUPPER metFORMIN HCL ER [Glucophage Xr] 500 mg PO DAILY Cholecalciferol [Vitamin D3 (25 Mcg = 1000 Iu)] 2,000 unit PO DAILY Potassium 99 mg PO QAM Timolol 0.5% Ophth Soln [Timoptic 0.5% Ophth Soln] 1 drop BOTH EYES BID Magnesium Oxide 400 mg PO DAILY Ascorbic Acid [Vitamin C] 1,000 mg PO DAILY Flecainide Acetate 100 mg PO BID Ipratropium [place] [Atrovent Hfa] 2 puff INHALATION RT-QID Cephalexin [Keflex] 500 mg PO Q6HR Spironolactone [Aldactone] 12.5 mg PO DAILY Insulin Glargine,Hum.rec.anlog [Toujeo Max Solostar] See Protocol SQ DAILY Famotidine 40 mg PO DAILY PRN PRN Reason: acid reflux Apixaban [Eliquis] 5 mg PO BID traMADol HCL 50 mg PO Q6H PRN PRN Reason: Pain Changed Insulin Glargine,Hum.rec.anlog [Toujeo Max Solostar] 40 units SQ HS #0 Discontinued lisinopriL [Prinivil] 20 mg PO DAILY Metoprolol Succinate [Toprol XL] 150 mg PO BID Furosemide [Lasix] 40 mg PO DAILY Discharge Medication List Potassium 297 mg PO W/SUPPER 03/31/18 [History] metFORMIN HCL ER [Glucophage Xr] 500 mg PO DAILY 03/31/18 [History] Cholecalciferol [Vitamin D3 (25 Mcg = 1000 Iu)] 2,000 unit PO DAILY 04/01/18 [History] Potassium 99 mg PO QAM 04/01/18 [History] Timolol 0.5% Ophth Soln [Timoptic 0.5% Ophth Soln] 1 drop BOTH EYES BID 04/01/18 [History] Apixaban [Eliquis] 5 mg PO BID 08/13/20 [History] Ascorbic Acid [Vitamin C] 1,000 mg PO DAILY 08/13/20 [History] Cephalexin [Keflex] 500 mg PO Q6HR 08/13/20 [History] Famotidine 40 mg PO DAILY PRN 08/13/20 [History] Flecainide Acetate 100 mg PO BID 08/13/20 [History] Insulin Glargine,Hum.rec.anlog [Toujeo Max Solostar] See Protocol SQ DAILY 08/13/20 [History] Ipratropium [place] [Atrovent Hfa] 2 puff INHALATION RT-QID 08/13/20 [History] Magnesium Oxide 400 mg PO DAILY 08/13/20 [History] Spironolactone [Aldactone] 12.5 mg PO DAILY 08/13/20 [History] traMADol HCL 50 mg PO Q6H PRN 08/13/20 [History] Furosemide [Lasix] 60 mg PO BID@0900,1600 #180 tab 08/22/20 [Rx] Insulin Glargine,Hum.rec.anlog [Toujeo Max Solostar] 40 units SQ HS #0 08/22/20 [Rx] Metoprolol Succinate (ER) [Toprol XL] 100 mg PO DAILY #30 tab.er.24h 08/22/20 [Rx] lisinopriL [Zestril] 2.5 mg PO DAILY #30 tab 08/22/20 [Rx] Follow up Appointment(s)/Referral(s): Luis Shirley MD [Primary Care Provider] - 1-2 days
[2020-08-22] MEDS: IPRATROPIUM-ALBUTEROL 3 ML NEB INHALATION SCH ×2 (08:30→13:20)
[2020-08-22 09:17] VITALS: RESP 16
[2020-08-22] MEDS: FUROSEMIDE 20 MG TAB PO SCH (09:19)
[2020-08-22] MEDS: APIXABAN 5 MG TAB PO SCH (09:19)
[2020-08-22] MEDS: METOPROLOL SUCCINATE (ER) 100 MG TAB.ER.24H PO SCH (09:19)
[2020-08-22] MEDS: ASCORBIC ACID 500 MG TAB PO SCH (09:19)
[2020-08-22] MEDS: TIMOLOL 0.5% OPHTH DROPS 5 ML BTL BOTH EYES SCH (09:20)
[2020-08-22] MEDS: PANTOPRAZOLE 40 MG TABLET PO SCH (09:20)
[2020-08-22] MEDS: SPIRONOLACTONE 25 MG TAB PO SCH (09:20)
[2020-08-22] MEDS: CHOLECALCIFEROL 25 MCG (1000 IU) TABLET PO SCH (09:20)
--- NOTE | 2020-08-22 10:19 | P.CONS ---
History of Present Illness - Reason for Consult Consult date: 08/22/20 wound care - History of Present Illness This is a 74-year-old patient being seen on for nonhealing ulceration to the right lower extremity anterior aspect. Patient sees Dr. Bowman at [facility] wound care center. She utilizes honey gel to the site 3 times a week. Patient states that the ulcerations have been there for approximately 4-5 months. They were caused by of falls. Patient states that she is not concerned about the ulcerations that they are showing improvement. Right lower extremity ulceration a cluster of 2 with fat layer exposure granulation seen throughout wound bed wound edges do not appear attached to the wound base. Slough noted throughout though wound bed. Minimal serous drainage noted. Periwound shows scarring. Patient's past medical history is significant for atrial fibrillation, coronary artery disease, CVA, diabetes mellitus, hyperlipidemia, hypertension. Review Of Systems: Constitutional: No fever, no chills, no night sweats. No weight change. No weakness, fatigue or lethargy. No daytime sleepiness. Integumentary:reports wounds, no lesions. No rash or pruritus. No unusual bruising. No change in hair or nails. Physical exam: General Appearance: Alert, cooperative, no distress, appears stated age. Skin: See HPI all other Skin color, texture, tugor normal, no rashes or lesions. Neurologic: Alert oriented x3 Assessment: 1. Nonhealing nonpressure ulcer with fatty layer exposure to the right anterior lower extremity. 2. Diabetes with skin ulcer 3. Venous insufficiency Plan: 1. Apply honey gel, gauze, rolled gauze, secure with paper tape. Change Friday. Patient currently has home care will continue the dressing changes as prior to hospitalization. Patient is seen at [facility] wound care center. Thank you for the consultation any questions please contact the wound care center DNP note has been reviewed and discussed with Dr. Lujan and the impression and plan of care has been directed as dictated. Past Medical History Past Medical History: Atrial Fibrillation, Coronary Artery Disease (CAD), CVA/TIA, Diabetes Mellitus, Deep Vein Thrombosis (DVT), Hyperlipidemia, Hypertension, Myocardial Infarction (CT) Additional Past Medical History / Comment(s): tia, lt eye macular , COVID 19 in 05/2020, RLE wound stage 3 Last Myocardial Infarction Date:: unk History of Any Multi-Drug Resistant Organisms: None Reported Past Surgical History: Adenoidectomy, Hysterectomy, Orthopedic Surgery, Tonsillectomy, Tubal Ligation Additional Past Surgical History / Comment(s): pilonidal cyst twice as child, rt knee arthroscopy, krystyna cataracts,krystyna great toe sx, Additional Past Anesthesia/Blood Transfusion Reaction / Comm: difficulty waking up after sx. clausterphobia. 1961 blood transfusion(during child ) pt stated had palpitations after 2nd unit given Past Psychological History: No Psychological Hx Reported Smoking Status: Former smoker Past Alcohol Use History: None Reported Past Drug Use History: None Reported - Past Family History Mother Family Medical History: Cancer Additional Family Medical History / Comment(s): lung cancer Father Family Medical History: Coronary Artery Disease (CAD) Additional Family Medical History / Comment(s): heart disease, kidney disese Medications and Allergies Home Medications Medication Instructions Recorded Confirmed Type Potassium 297 mg PO W/SUPPER 03/31/18 08/13/20 History metFORMIN HCL ER [Glucophage Xr] 500 mg PO DAILY 03/31/18 08/13/20 History Cholecalciferol [Vitamin D3 (25 2,000 unit PO DAILY 04/01/18 08/13/20 History Mcg = 1000 Iu)] Potassium 99 mg PO QAM 04/01/18 08/13/20 History Timolol 0.5% Ophth Soln [Timoptic 1 drop BOTH EYES BID 04/01/18 08/13/20 History 0.5% Ophth Soln] Apixaban [Eliquis] 5 mg PO BID 08/13/20 08/13/20 History Ascorbic Acid [Vitamin C] 1,000 mg PO DAILY 08/13/20 08/13/20 History Cephalexin [Keflex] 500 mg PO Q6HR 08/13/20 08/13/20 History Famotidine 40 mg PO DAILY PRN 08/13/20 08/13/20 History Flecainide Acetate 100 mg PO BID 08/13/20 08/13/20 History Insulin Glargine,Hum.rec.anlog See Protocol SQ DAILY 08/13/20 08/13/20 History [Toujeo Max Solostar] Ipratropium [place] [Atrovent Hfa] 2 puff INHALATION RT-QID 08/13/20 08/13/20 History Magnesium Oxide 400 mg PO DAILY 08/13/20 08/13/20 History Spironolactone [Aldactone] 12.5 mg PO DAILY 08/13/20 08/13/20 History traMADol HCL 50 mg PO Q6H PRN 08/13/20 08/13/20 History Furosemide [Lasix] 60 mg PO BID@0900,1600 #180 tab 08/22/20 Rx Insulin Glargine,Hum.rec.anlog 40 units SQ HS #0 08/22/20 08/13/20 Rx [Toujeo Max Solostar] Metoprolol Succinate (ER) [Toprol 100 mg PO DAILY #30 tab.er.24h 08/22/20 Rx XL] lisinopriL [Zestril] 2.5 mg PO DAILY #30 tab 08/22/20 Rx Allergies Allergy/AdvReac Type Severity Reaction Status Date / Time adhesive Allergy Unknown Verified 08/13/20 20:22 aluminum Allergy Unknown Verified 08/13/20 20:22 Antihistamines - Allergy Unknown Verified 08/13/20 20:22 Ethylenediamine codeine Allergy Unknown Verified 08/13/20 20:22 epinephrine Allergy Unknown Verified 08/13/20 20:22 hydrogen peroxide Allergy Unknown Verified 08/13/20 20:22 latex Allergy Unknown Verified 08/13/20 20:22 lidocaine Allergy Unknown Verified 08/13/20 20:22 nickel Allergy Unknown Verified 08/13/20 20:22 petrolatum,white Allergy Unknown Verified 08/13/20 20:22 [From Petroleum Jelly] procaine HCl [From Novocain] Allergy Unknown Verified 08/13/20 20:22 shellfish derived [Shellfish] Allergy Unknown Verified 08/13/20 20:22 thiopental sodium Allergy Unknown Verified 08/13/20 20:22 [From Pentothal] egg yolk AdvReac Diarrhea Verified 08/17/20 09:17 Physical Exam Vitals: Vital Signs Temp Pulse Pulse Resp BP Pulse Ox 08/22/20 09:10 98.1 F 98 16 115/67 98 08/22/20 08:45 104 H 08/22/20 08:31 101 H 08/22/20 04:00 65 18 103/57 98 08/22/20 00:00 79 18 107/63 99 08/21/20 20:00 98.9 F 102 H 18 118/62 99 08/21/20 19:46 121 H 20 08/21/20 19:37 118 H 20 100 08/21/20 16:00 99.4 F 95 18 142/69 97 08/21/20 15:24 84 08/21/20 15:19 76 08/21/20 14:00 116 H 18 08/21/20 12:00 116 H 18 128/81 100 08/21/20 11:47 80 08/21/20 11:31 84 Intake and Output 08/21/20 08/22/20 08/22/20 22:59 06:59 14:59 Intake Total 240 Output Total 1500 1200 Balance -1500 -1200 240 Intake: Oral 240 Output: Urine 1500 1200 Other: Voiding Method Indwelling Catheter Indwelling Catheter Weight 113.8 kg Results CBC & Chem 7: 08/21/20 07:20 08/21/20 07:20 Labs: Abnormal Lab Results - Last 24 Hours (Table) 08/21/20 08/21/20 08/21/20 Range/Units 11:38 16:47 19:59 POC Glucose (mg/dL) 329 H 262 H 298 H (75-99) mg/dL 08/22/20 Range/Units 06:58 POC Glucose (mg/dL) 208 H (75-99) mg/dL Assessment and Plan (1) Nonhealing ulcer of right lower extremity with fat layer exposed Current Visit: Yes Status: Acute Code(s): L97.912 - NON-PRS CHR ULC UNSP PRT OF R LOW LEG W FAT LAYER EXPOSED SNOMED Code(s): 36371348 (2) Diabetes with skin ulcer Current Visit: Yes Status: Acute Code(s): E11.622 - TYPE 2 DIABETES MELLITUS WITH OTHER SKIN ULCER; L98.499 - NON-PRESSURE CHRONIC ULCER OF SKIN OF SITES W UNSP SEVERITY SNOMED Code(s): 45166455 (3) Venous insufficiency Current Visit: Yes Status: Acute Code(s): I87.2 - VENOUS INSUFFICIENCY (CHRONIC) (PERIPHERAL) SNOMED Code(s): 27421993
[2020-08-22 11:43] LABS: Glucose,Whole Blood 315 mg/dL (75-99)
[2020-08-22 12:01] VITALS: BP 119/69; TEMP 98.6
--- NOTE | 2020-08-22 12:51 | PN ---
PROGRESS NOTE Patient is seen for followup for acute kidney injury. Renal function currently stable. The patient has been diuresed. She is now maintained on oral Lasix, overall feeling better and wants to go home. EXAMINATION: Today blood pressure 115/67, heart rate 98 per minute. She is afebrile. Examination of the heart S1, S2. Examination of the lungs, bilateral breath sounds are heard. ABDOMEN: Soft, obese. Exam of lower extremities shows right leg currently wrapped. Edema is noted bilaterally most with chronic skin changes and it is fairly stable. LAB: From yesterday on 08/21/2020 show sodium 134, potassium 4.8, BUN 47, creatinine 1.3, hemoglobin 10.2 g/dL. ASSESSMENT: 1. Acute kidney injury cardiorenal/acute tubular necrosis, fairly stable, creatinine staying at about 1.2 mg/dL, maintained on p.o. Lasix. 2. Congestive heart failure, systolic, acute on top of chronic. 3. Cardiomyopathy, ejection fraction 20-25%. 4. History of atrial fibrillation. 5. Hypervolemic hyponatremia improved with diuretics. PLAN: Continue with oral Lasix 60 mg p.o. b.i.d. Patient is advised regarding salt and fluid restriction. MMODL / IJN: [id number] /
--- NOTE | 2020-08-22 13:32 | P.PN ---
Subjective 74 year old female with past medical history of chronic persistant atrial fibrillation, hypertension, type 2 diabetes, dyslipidemia, ischemic cardiom yopathy, who is admitted to the hospital secondary to palpitations for 3 hours, shortness of breath and discomfort, interscapular associated with palpitations. She was found to have a wide complex tachycardia when EMS arrived. Her blood pressure was stable and EMS treated her with 150 mg of amiodarone. In route to the emergency room her blood pressure dropped so she was cardioverted with 100 J shock. Echocardiogram completed revealed ejection fraction 20-25%, severe global hypokinesis of LV, moderate to severe mitral regurgitation, moderate tricuspid regurgitation, and mild to moderate pulmonary hypertension. Cardiac catheterization on 05/17/2019- with normal coronary arteries Echocardiogram 04/13/2019- EF 20%, mild to moderate mitral regurgitation 08/22/2020: Patient examined this morning. No acute distress. Sitting up in bedside chair, eager to be discharged today. Telemetry reveals afib with controlled venticular rates. Pressure 119/69, heart rate 60, afebrile, maintaining oxygen saturation 100% on 2 L nasal cannula. PHYSICAL EXAM: VITAL SIGNS: Reviewed. GENERAL: Well-developed in no acute distress. NECK: Supple. No JVD or thyromegaly LUNGS: Respirations even and unlabored. Lungs diminished bilaterally. Remains intubated on mechanical ventilation. HEART: Irregular rate and rhythm. S1 and S2 heard. Systolic murmur noted. EXTREMITIES: Normal range of motion. No clubbing or cyanosis. Peripheral pulses intact. 1+ bilateral lower extremity edema ASSESSMENT: Acute hypoxic respiratory failure requiring mechanical ventilation Sustained ventricular tachycardia requiring defibrillation - possibly flecainide proarrhythmia Cardiomyopathy, non-ischemic, EF 20-25% Chronic persistent atrial fibrillation - on eliquis Acute systolic heart failure with reduced EF Recent COVID-09 June 2020 Acute kidney injury -Scr improving Type 2 Diabetes Hyperlipidemia Hypertension Nonhealing ulcer in the right lower extremity PLAN: Lifevest for severe nonischemic cardiomyopathy Continue to hold flecainide Continue metoprolol succinate 100mg daily Continue Eliquis 5mg BID Continue Lasix 60mg BID and Spironolactone 25mg daily Continue Lisinopril 2.5mg daily Patient to follow up with Dr. Guillen outpatient Nurse practitioner note has been reviewed by physician. Signing provider agrees with the documented findings, assessment, and plan of care. Objective - Vital Signs Vital signs: Vital Signs Temp 98.6 F 08/22/20 12:00 Pulse 60 08/22/20 12:00 Resp 16 08/22/20 12:00 BP 119/69 08/22/20 12:00 Pulse Ox 100 08/22/20 12:00 Intake & Output 08/21/20 08/22/20 08/22/20 18:59 06:59 18:59 Intake Total 240 240 Output Total 3000 1200 Balance -2760 -1200 240 Weight 113.8 kg Intake: Oral 240 240 Output: Urine 3000 1200 Other: Voiding Method Indwelling Catheter Indwelling Catheter Indwelling Catheter ABP, PAP, CO, CI - Last Documented Arterial Blood Pressure 121/56 - Labs CBC & Chem 7: 08/21/20 07:20 08/21/20 07:20 Labs: Abnormal Lab Results - Last 24 Hours (Table) 08/21/20 08/21/20 08/22/20 Range/Units 16:47 19:59 06:58 POC Glucose (mg/dL) 262 H 298 H 208 H (75-99) mg/dL 08/22/20 Range/Units 11:41 POC Glucose (mg/dL) 315 H (75-99) mg/dL
[2020-08-22 13:53] VITALS: PULSE 105
[2020-08-22 14:12] VITALS: BMI 45.8
--- NOTE | 2020-08-22 16:14 | P.PN ---
Subjective Progress Note Date: 08/22/20 Principal diagnosis: Acute hypoxic respiratory failure related to pulmonary edema, sustained V. tach 74-year-old female patient, known history of cardiac disease including CAD, p revious NE, previous history of chronic atrial fibrillation, diabetes mellitus whereas been also infected and recovered from COVID-19 back in May 2020 and she is currently being treated for a stage III right lower extremity wound being treated at [facility] and the patient was discharged recently home. The patient was brought into the hospital as the patient was experiencing some palpitations at home. EMS came to the scene and the patient was found to have a wide complex tachycardia consistent with V. tach. In the emergency department, the patient was given a shock and the patient converted to atrial fibrillation with a controlled rate. She was in acute pulmonary edema. She was hypoxic. She was unresponsive. At that point the patient was intubated and placed on a mechanical ventilator. She is currently sedated with propofol and she is calm and comfortable. Probable resolving at 20 mg/kg per minute. She is on assist control mode at the rate of 26 and a tidal volume of 400 and FiO2 of 70% with a PEEP of 8. Peak air pressures 34 static pressure of 27. FiO2 was dropped down to 50%. Chest x-ray is showing some improvement in the bilateral pulmonary edema compared to yesterday. ET tube is high in the trachea and is to be repositioned. As stated, the patient is currently on no pressors. The morning blood gases showed a pH of 7.47 with a pCO2 of 37 and pO2 of 241 and this was on FiO2 of 100%. The white cell count at 16.3. The patient's lactic acid level is at 2.8. Creatinine was up to 2.0 to consistent with an acute kidney injury. Her troponin was 0.80. The patient's proBNP level is 3940. Rest of the blood work and x-rays shows a potassium level of 5.0 with a creatinine of 2.02 and a serum bicarb of 20. Bedside echocardiogram was done and the preliminary report is consistent with severe cardiomyopathy with an ejection fraction of less than 20%. On today's evaluation of 08/15/2020, the patient is being seen for a follow-up. As stated earlier, the patient has history of cardiac disease, COPD and chronic A. fib and the patient presented with wide complex tachycardia/V. tach. She is currently intubated on a mechanical ventilator. Intubation was done because of an acute pulmonary edema. On her echocardiogram, the patient was found to have an ejection fraction of 20-25% and was consistent with systolic heart failure. She has some diastolic filling abnormality. She also has no evidence of aortic disease, moderate to severe mitral regurgitation, [id number] pulmonary hypertension with a PA pressure of 39. The patient currently is in a Hx fibrillation rhythm. Amiodarone is still running at 0.5 mg per minute and this needs to be switched to oral maintenance. She is on IV heparin for now as the patient was having some issues with acute kidney injury and lines had to be established. Yesterday, triple lumen catheter was inserted in the left IJ. The CVP currently is at 11. The chest x-ray from today there is evidence of cardiomegaly, bilateral pleural effusions, interstitial edema, triple lumen cath in the left IJ, ET tube is in a good location as she was pushed and the lip line of 23. OG tube is also in place. The patient remains on mechanical ventilator. This morning she is on a assist-control of 16 which was dropped down with a tidal volume of 400 and FiO2 of 50% with a PEEP of 6. Morning blood gases that was done on a PEEP of 8 showed a pH of 7.58 with a pCO2 of 30 and pO2 of 139. This was also done at the rate of 26 the patient is still being diuresed with IV Lasix. She is receiving Lasix 40 mg IV every 12 hours. Creatinine is down to 1.8. Urine output is in order of 100 mL an hour and the neck fluid balance over the past 24 hours has been -6 99 mL. Ultrasound the kidney was done and it showed no evidence of any hydronephrosis. She is afebrile. Currently she is on no pressors. She is sedated with propofol which is running at 50 mcg/kg per minute. 08/16/2020, the patient is extubated. After successfully diuresing the patient, the patient was weaned off the sedation, she was able to give us a good weaning parameters and good spontaneous breathing trial and following that she was extubated to nasal cannula and this morning she is sitting up on a chair and she is on oxygen at 4 L which was later dropped down to 2 L nasal cannula. The chest x-ray from today is showing interval removal of the orotracheal tube. There is also cardiomegaly. There is also small bilateral pleural effusions. There is also interstitial edema which is essentially improving. Lung volumes are still. The patient is currently in atrial fibrillation and the rate is somewhere between 100-120. The patient is currently on amiodarone 400 mg by mouth twice a day. Lopressor dose was adjusted to 50 mg by mouth daily XL and the patient was started on Aldactone 25 mg by mouth daily as of yesterday and she was also started on lisinopril 5 mg. She is still being diuresed with Lasix receiving a dose of 40 mg IV every 12 hours. As mentioned earlier, she has impaired ejection fraction with systolic heart failure and ejection fraction of 20-25% and mild pulmonary hypertension. Her current CVP is around 8. The overall fluid balance is -2.9 L over the past 24 hours and the patient has had a hours a negative fluid balance again. Electrolytes from today shows a potassium level of 4.2 and a creatinine is at 1.3 which is essentially improved compared to yesterday and the renal function continues to improve. In terms of her abnormal UA, the urine cultures still pending. Blood cultures of been negative and the patient is currently on IV Rocephin as an empiric antibiotic coverage. She is on Levemir insulin 10 units along with a sliding scale coverage and blood sugars are being monitored. No other significant events otherwise for now. She is off sedation. She is awake and alert. She'll be advanced on her diet and currently she is on diabetic carb Consistent diet. 08/17/2020, the patient remains extubated and currently she is on oxygen at 3 L., Comfortable and she is sitting up on a chair. She is on diuretics and she is currently on Lasix 40 mg by mouth IV twice a day and Aldactone 25 mg by mouth daily. She remains in a negative fluid balance. Lasix was held yesterday in consultation for cardiac catheterization. I was later on the form that the patient had a cardiac catheterization last year and her coronaries were essentially normal. No plans to do a cardiac catheterization Lasix was restarted. She is headed towards a negative fluid balance for now. The plan is to consider an AICD placement and the patient was seen by Dr. Gordon today. Otherwise, her cardiac rhythm is atrial fibrillation the patient remains on IV heparin for now. No long-term anticoagulation until a decision is made regarding AICD placement. She remains on IV Rocephin and urine cultures are negative for now. The white cell count today is at 15 and creatinine is at 1.2 which is obviously improving as the patient had a cardiorenal factors and he continues to have improved with a creatinine. She is on Levemir insulin running at 16 units and her dose was adjusted today because of ongoing hyperglycemia. 08/18/2020, the patient remains extubated on 2 L of oxygen by nasal cannula. Doing well. No acute complaints. Diuresing well. She is in a negative fluid balance chest x-ray still showing some small lung volumes and atelectatic changes in lung bases and the patient has edema lower extremities bilaterally. She remains on Lasix 40 mg IV every 12 hours. She remains on Aldactone 25 mg by mouth daily. She remains on amiodarone orally and her cardiac rhythm remains a chair fibrillation and the patient remains on IV heparin. Metoprolol is also being utilized for rate control. Her renal function shows a creatinine of 1.23. She is on IV heparin with a therapeutic PTT. The patient is awaiting a final recommendation regarding an AICD placement. Awaiting a consultation from Dr. Gordon. No fever. No chills. Remains on IV Rocephin. Remains on Levemir in [facility] for blood sugar control. Her Levemir is currently running at 16 units along with his vascular coverage. No other significant events overnight. 08/19/2020 the patient remains an atrial fibrillation with a controlled rate. No ventricular arrhythmias. The decision to cardiology is to discharge this patient home with a LifeVest to be considered at a later stage for an AICD. She is doing extremely well. She is on oxygen at 2 L with a pulse ox of 99%. She has been adequately diuresed. Hemodynamically stable. Blood pressure is stable. The labs from today shows a hemoglobin of 9.2, creatinine is stable at 1.36 and the sodium is at 130. She is on IV heparin. Her lower extremity edema is also improving. 08/20/2020, seeing this patient for a follow-up. She was admitted intensive care unit and the patient got transferred to a telemetry unit yesterday. She is cardiomyopathy. She came to us with a cardiac is ventilator dependent respiratory failure and she is back on oxygen at 2 L. No significant respiratory distress. No significant arrhythmias. Cardiac rhythm remains at rial fibrillation. Cardiology has opted to give her a LifeVest and with an AICD at a later stage knowing that she has chronic wounds in lower extremities worse on the right. Noted the wounds are not infected and there about healing slowly. She is receiving wound care. She remains on diuretics with a combination of Lasix and Aldactone. No signs of any significant respiratory distress this morn ing. The patient remains on Lasix 40 mg twice a day. She is also on Aldactone 25 mg by mouth daily. She is on Keflex regarding her lower extremity wounds. She is on metoprolol 100 mg once a day, Zestril 2.5 mg by mouth daily regarding her cardiomyopathy. She is also on long-term articulation with Eliquis 5 mg by mouth twice a day. She is tolerating her diet. She is awake and alert. 08/21/2020, the patient is doing well. The left IJ triple-lumen catheter will be removed. Creatinine is stable at 1.2. Remains on 2 L about 2 by nasal cannula. No cardiac events. Remains on a combination of Lasix and Aldactone. Restarted on metoprolol 100 mg by mouth daily and Zestril 2.5 mg by mouth daily. BP is under adequate control. She is on anticoagulation. She is a good candidate for AICD placement of a later stage. No respiratory difficulties. Communicating. Tolerating her diet. On 08/22/2020 patient seen in follow-up on selective care unit. She is sitting up in the recliner, breathing comfortably, she is currently on 2 L of oxygen her pulse ox is 98-100%, she is afebrile, hemodynamically she has been stable, she has a LifeVest on in preparation for discharge possibly today. She has been transitioned to oral Lasix at 60 mg twice daily, she is in -3.96 liters of net fluid balance over the last 24 hours, lower extremity edema is improving, she remains on oral Keflex for lower extremity cellulitis, she's had no fever or chills. She is on oral Eliquis for history of A. fib, and patient currently remains in atrial fibrillation with a controlled rate. Objective - Vital Signs Vital signs: Vital Signs Temp 98.6 F 06/01/21 12:00 Pulse 105 H 08/22/20 13:30 Resp 16 08/22/20 12:00 BP 119/69 08/22/20 12:00 Pulse Ox 100 08/22/20 12:00 Intake & Output 08/21/20 08/22/20 08/22/20 18:59 06:59 18:59 Intake Total 240 240 Output Total 3000 1200 700 Balance -2760 -1200 -460 Weight 113.8 kg 113.8 kg Intake: Oral 240 240 Output: Urine 3000 1200 700 Other: Voiding Method Indwelling Catheter Indwelling Catheter Indwelling Catheter # Bowel Movements 1 ABP, PAP, CO, CI - Last Documented Arterial Blood Pressure 121/56 - Exam GENERAL EXAM: Alert, very pleasant, 74-year-old white female, on 2 L of oxygen and pulse ox of 97-100% comfortable in no apparent distress. HEAD: Normocephalic/atraumatic. EYES: Normal reaction of pupils, equal size. Conjunctiva pink, sclera white. NOSE: Clear with pink turbinates. THROAT: No erythema or exudates. NECK: No masses, no JVD, no thyroid enlargement, no adenopathy. CHEST: No chest wall deformity. Symmetrical expansion. Patient has a LifeVest in place LUNGS: Equal air entry with no crackles, wheeze, rhonchi or dullness. CVS: Irregular rate and rhythm, normal S1 and S2, no gallops, no murmurs, no rubs ABDOMEN: Soft, nontender. No hepatosplenomegaly, normal bowel sounds, no guarding or rigidity. EXTREMITIES: No clubbing, 1+ lower extremity edema, no cyanosis, 2+ pulses and upper and lower extremities. MUSCULOSKELETAL: Muscle strength and tone normal. SPINE: No scoliosis or deformity SKIN: No rashes CENTRAL NERVOUS SYSTEM: Alert and oriented -3. No focal deficits, tone is normal in all 4 extremities. PSYCHIATRIC: Alert and oriented -3. Appropriate affect. Intact judgment and insight. - Labs CBC & Chem 7: 08/21/20 07:20 08/21/20 07:20 Labs: Abnormal Lab Results - Last 24 Hours (Table) 08/21/20 08/21/20 08/22/20 Range/Units 16:47 19:59 06:58 POC Glucose (mg/dL) 262 H 298 H 208 H (75-99) mg/dL 06/01/21 Range/Units 11:41 POC Glucose (mg/dL) 315 H (75-99) mg/dL Assessment and Plan Plan: Assessment: 1 acute hypoxic respiratory failure/pulmonary edema, extubated to nasal cannula. She is hemodynamically stable at this point in time. She is currently on 2 L of oxygen by nasal cannula. Remains stable 2 sustained V. tach, post cardioversion and the patient's current rhythm is atrial fibrillation with a controlled rate, the patient remains on amiodarone 400 mg by mouth twice a day in combination with metoprolol XL 50 mg by mouth daily and the cardiac rhythm is atrial fibrillation. No further episodes of V. tach and the patient had a cardiac catheterization last year that came back normal coronaries and the patient is being considered for AICD this stage and cardiology opted to wait until her wounds in her right lower extremity has essentially healed. 3 cardiomyopathy with an ejection fraction of less than 20%-25% along with moderate to severe mitral regurgitation, likely of a new onset thing a cardiac catheterization, rule out ischemic cardiomyopathy, considered AICD 4 chronic atrial fibrillation maintained on a combination of amiodarone, metoprolol and IV heparin for now pending cardiac catheterization 5 coronary artery disease appears myocardial infarction 6 previous history of DVT 7 hyperlipidemia 8 macular degeneration 9 remote history of CVA 10 acute kidney injury with oligoria, , creatinine is improving 11 metabolic acidosis secondary to acute kidney injury , resolved 12 COVID-19 infection treated and subsequent recovery back to May 2020 13 stage III right lower extremity wound without any signs of infection or cellulitis 14 suspected UTI cultures are negative and the patient is completing a 5 day course of Rocephin, no signs of any acute infection at this point in time. Plan: Continue oral diuretics Breathing comfortably and on minimal supplemental oxygen Maintaining negative fluid balance Remains in A. fib with a controlled rate, Continue oral anticoagulation LifeVest has been applied in discharge home is pending with a LifeVest in place From pulmonary perspective she is stable for discharge home, with follow-up with cardiology. She can follow up with pulmonary service on as-needed basis I performed a history & physical examination of the patient and discussed their management with my nurse practitioner, Irais Ocampo. I reviewed the nurse practitioner's note and agree with the documented findings and plan of care. Lung sounds are positive for diminished breath sounds. The findings and the impression was discussed with the patient. I attest to the documentation by the nurse practitioner. Time with Patient: Less than 30
== END 2020-08-22 15:15 | disposition home health service (06) | DRG 308 ==
LOC: EC 19:40 → 2SICU 22:02 → 3SCARD 08-19 20:54
PROVIDERS: ADMIT Family Medicine; ATTEND Family Medicine
PROC: 5A1945Z Respiratory Ventilation, 24-96 Consecutive Hours (ICD-10-PCS; principal; 2020-08-13)
PROC: 0BH17EZ Insertion of Endotracheal Airway into Trachea, Via Natural or Artificial Opening (ICD-10-PCS; 2020-08-13)
PROC: 5A09357 Assistance with Respiratory Ventilation, Less than 24 Consecutive Hours, Continuous Positive Airway Pressure (ICD-10-PCS; 2020-08-13)
PROC: 3E0G76Z Introduction of Nutritional Substance into Upper GI, Via Natural or Artificial Opening (ICD-10-PCS; 2020-08-14)
PROC: 0DH67UZ Insertion of Feeding Device into Stomach, Via Natural or Artificial Opening (ICD-10-PCS; 2020-08-14)
PROC: 02HV33Z Insertion of Infusion Device into Superior Vena Cava, Percutaneous Approach (ICD-10-PCS; 2020-08-14)
DX: I47.2 Ventricular tachycardia (principal); I50.23 Acute on chronic systolic (congestive) heart failure; J96.01 Acute respiratory failure with hypoxia; N17.0 Acute kidney failure with tubular necrosis; I42.8 Other cardiomyopathies; E87.2 Acidosis; L97.822 Non-pressure chronic ulcer of other part of left lower leg with fat layer exposed; E87.1 Hypo-osmolality and hyponatremia; Z68.42 Body mass index [BMI] 45.0-49.9, adult; N39.0 Urinary tract infection, site not specified; I27.22 Pulmonary hypertension due to left heart disease; I11.0 Hypertensive heart disease with heart failure; E11.622 Type 2 diabetes mellitus with other skin ulcer; J44.9 Chronic obstructive pulmonary disease, unspecified; I48.21 Permanent atrial fibrillation; E11.65 Type 2 diabetes mellitus with hyperglycemia; I46.2 Cardiac arrest due to underlying cardiac condition; Z20.822 Contact with and (suspected) exposure to COVID-19; I25.10 Atherosclerotic heart disease of native coronary artery without angina pectoris; I25.2 Old myocardial infarction; E78.00 Pure hypercholesterolemia, unspecified; H35.30 Unspecified macular degeneration; E78.5 Hyperlipidemia, unspecified; I44.7 Left bundle-branch block, unspecified; I08.1 Rheumatic disorders of both mitral and tricuspid valves; I87.2 Venous insufficiency (chronic) (peripheral); E66.9 Obesity, unspecified; I25.5 Ischemic cardiomyopathy; G89.29 Other chronic pain; Z71.3 Dietary counseling and surveillance; Z79.899 Other long term (current) drug therapy; Z79.84 Long term (current) use of oral hypoglycemic drugs; Z79.01 Long term (current) use of anticoagulants; Z91.048 Other nonmedicinal substance allergy status; Z86.73 Personal history of transient ischemic attack (TIA), and cerebral infarction without residual deficits; Z86.718 Personal history of other venous thrombosis and embolism; Z98.890 Other specified postprocedural states; Z90.710 Acquired absence of both cervix and uterus; Z98.42 Cataract extraction status, left eye; Z98.41 Cataract extraction status, right eye; Z87.891 Personal history of nicotine dependence; Z86.16 Personal history of COVID-19; Z91.040 Latex allergy status; Z88.5 Allergy status to narcotic agent; Z91.013 Allergy to seafood; Z88.8 Allergy status to other drugs, medicaments and biological substances; Z80.1 Family history of malignant neoplasm of trachea, bronchus and lung; Z82.49 Family history of ischemic heart disease and other diseases of the circulatory system
CPT/HCPCS: 31500; 36415; 36600; 71045; 76770; 80048; 80053; 81001; 82805; 83036; 83605; 83735; 83880; 84132; 84484; 85025; 85027; 85379; 85610; 85730; 87040; 87070; 87086; 87205; 87635; 93005; 93306; 94002; 94003; 94640; 94660; 96361; 96365; 96375; 99291; 99292

== ENCOUNTER 2020-09-01 14:31 | Inpatient (IN) | payer MEDICARE ==
--- NOTE | 2020-09-01 15:03 | ED ---
General Adult HPI - General Stated complaint: Irregular Heartbeat Time Seen by Provider: 09/01/20 14:42 Source: patient, RN notes reviewed, old records reviewed - History of Present Illness Initial comments: 74 -year-old female who presents with chief complaint of defibrillator about 2 shocked the patient. Patient states that one of the wires had come loose and she was squirted with the blue gel by her external defibrillator. She had no complaints at this time. No chest pain. No palpitations. She felt totally fine. She took the vast off and called 911. She was transported by EMS, found to be in a wide-complex rhythm likely atrial fibrillation rate greater than 100. She states she was told that the vast would not deliver defibrillation she was greater than 200. She has no complaints the time my evaluation. - Related Data Home Medications Medication Instructions Recorded Confirmed Potassium 297 mg PO W/SUPPER 03/31/18 09/01/20 metFORMIN HCL ER [Glucophage Xr] 500 mg PO DAILY 03/31/18 09/01/20 Cholecalciferol [Vitamin D3 (25 2,000 unit PO DAILY 04/01/18 09/01/20 Mcg = 1000 Iu)] Potassium 99 mg PO QAM 04/01/18 09/01/20 Timolol 0.5% Ophth Soln [Timoptic 1 drop BOTH EYES BID 04/01/18 09/01/20 0.5% Ophth Soln] Apixaban [Eliquis] 5 mg PO BID 08/13/20 09/01/20 Ascorbic Acid [Vitamin C] 1,000 mg PO DAILY 08/13/20 09/01/20 Famotidine 40 mg PO DAILY PRN 08/13/20 09/01/20 Insulin Glargine,Hum.rec.anlog See Protocol SQ DAILY 08/13/20 09/01/20 [Al Reynolds] Ipratropium [place] [Atrovent Hfa] 2 puff INHALATION RT-QID 08/13/20 09/01/20 Spironolactone [Aldactone] 12.5 mg PO DAILY 08/13/20 09/01/20 traMADol HCL 50 mg PO Q6H PRN 08/13/20 09/01/20 Insulin Glargine,Hum.rec.anlog 40 - 60 units SQ HS 09/01/20 09/01/20 [Al Escuderocandice] Previous Rx's Medication Instructions Recorded Furosemide [Lasix] 60 mg PO BID@0900,1600 #180 tab 08/22/20 Metoprolol Succinate (ER) [Toprol 100 mg PO DAILY #30 tab.er.24h 08/22/20 XL] lisinopriL [Zestril] 2.5 mg PO DAILY #30 tab 08/22/20 Allergies Allergy/AdvReac Type Severity Reaction Status Date / Time adhesive Allergy Unknown Verified 09/01/20 16:18 aluminum Allergy Unknown Verified 09/01/20 16:18 Antihistamines - Allergy Unknown Verified 09/01/20 16:18 Ethylenediamine codeine Allergy Unknown Verified 09/01/20 16:18 epinephrine Allergy Unknown Verified 09/01/20 16:18 hydrogen peroxide Allergy Unknown Verified 09/01/20 16:18 latex Allergy Unknown Verified 09/01/20 16:18 lidocaine Allergy Unknown Verified 09/01/20 16:18 nickel Allergy Unknown Verified 09/01/20 16:18 petrolatum,white Allergy Unknown Verified 09/01/20 16:18 [From Petroleum Jelly] procaine HCl [From Novocain] Allergy Unknown Verified 09/01/20 16:18 shellfish derived [Shellfish] Allergy Unknown Verified 09/01/20 16:18 thiopental sodium Allergy Unknown Verified 09/01/20 16:18 [From Pentothal] egg yolk AdvReac Diarrhea Verified 09/01/20 16:18 Review of Systems ROS Statement: Those systems with pertinent positive or pertinent negative responses have been documented in the HPI. ROS Other: All systems not noted in ROS Statement are negative. Past Medical History Past Medical History: Atrial Fibrillation, Coronary Artery Disease (CAD), CVA/TIA, Diabetes Mellitus, Deep Vein Thrombosis (DVT), Hyperlipidemia, Hypertension, Myocardial Infarction ([place]) Additional Past Medical History / Comment(s): tia, lt eye macular , COVID 19 in 05/2020, RLE wound stage 3 Last Myocardial Infarction Date:: unk History of Any Multi-Drug Resistant Organisms: None Reported Past Surgical History: Adenoidectomy, Hysterectomy, Orthopedic Surgery, Tonsillectomy, Tubal Ligation Additional Past Surgical History / Comment(s): pilonidal cyst twice as child, rt knee arthroscopy, krystyna cataracts,krystyna great toe sx, Additional Past Anesthesia/Blood Transfusion Reaction / Comment(s): difficulty waking up after sx. clausterphobia. 1961 blood transfusion(during child ) pt stated had palpitations after 2nd unit given Past Psychological History: No Psychological Hx Reported Smoking Status: Former smoker Past Alcohol Use History: None Reported Past Drug Use History: None Reported - Past Family History Mother Family Medical History: Cancer Additional Family Medical History / Comment(s): lung cancer Father Family Medical History: Coronary Artery Disease (CAD) Additional Family Medical History / Comment(s): heart disease, kidney disese General Exam General appearance: alert, in no apparent distress Head exam: Present: atraumatic, normocephalic Eye exam: Present: normal appearance, PERRL ENT exam: Present: normal exam Neck exam: Present: normal inspection. Absent: tenderness, meningismus Respiratory exam: Present: normal lung sounds bilaterally. Absent: respiratory distress, wheezes Cardiovascular Exam: Present: tachycardia, irregular rhythm GI/Abdominal exam: Present: soft. Absent: distended, tenderness, guarding Extremities exam: Present: normal capillary refill, pedal edema Neurological exam: Present: alert, oriented X3, CN II-XII intact. Absent: motor sensory deficit Psychiatric exam: Present: normal affect, normal mood Skin exam: Present: warm, dry, intact. Absent: cyanosis, diaphoretic Course Vital Signs 09/01/20 09/01/20 09/01/20 14:59 15:43 16:13 Temperature 98.4 F Pulse Rate 129 H 116 H 112 H Respiratory 18 18 18 Rate Blood Pressure 121/71 121/71 108/66 O2 Sat by Pulse 98 99 98 Oximetry EKG Findings - EKG Comments: EKG Findings:: Atrial fibrillation with RVR, rate of 1:30, left axis, QRS duration 118, QTC 473, no ST segment elevation, similar QRS morphology compared to previous EKG on 08/20/2020 Medical Decision Making - Medical Decision Making 74-year-old female with near defibrillation, [facility] with R[facility]. No chest pain or palpitations. Patient is started on Cardizem in the emergency department. She is anticoagulated at baseline. She has minor elevation in serum creatinine. Chest x-ray showed mild venous congestion. Patient will be kept on telemetry, as an infusion, admitted to Dr. Bishop who is aware with cardiology on consultation. - Lab Data Result diagrams: 09/01/20 15:08 09/01/20 15:08 Lab Results 09/01/20 09/01/20 09/01/20 Range/Units 15:08 15:08 15:08 WBC 10.4 (3.8-10.6) k/uL RBC 3.69 L (3.80-5.40) m/uL Hgb 10.9 L (11.4-16.0) gm/dL Hct 32.7 L (34.0-46.0) % MCV 88.6 (80.0-100.0) fL MCH 29.5 (25.0-35.0) pg MCHC 33.3 (31.0-37.0) g/dL RDW 15.0 (11.5-15.5) % Plt Count 301 (150-450) k/uL MPV 7.7 Neutrophils % 83 % Lymphocytes % 8 % Monocytes % 4 % Eosinophils % 3 % Basophils % 1 % Neutrophils # 8.7 H (1.3-7.7) k/uL Lymphocytes # 0.9 L (1.0-4.8) k/uL Monocytes # 0.5 (0-1.0) k/uL Eosinophils # 0.3 (0-0.7) k/uL Basophils # 0.1 (0-0.2) k/uL PT 11.8 (9.0-12.0) sec INR 1.1 (<1.2) APTT 25.9 (22.0-30.0) sec Sodium 135 L (137-145) mmol/L Potassium 4.4 (3.5-5.1) mmol/L Chloride 94 L (98-107) mmol/L Carbon Dioxide 33 H (22-30) mmol/L Anion Gap 8 mmol/L BUN 37 H (7-17) mg/dL Creatinine 1.65 H (0.52-1.04) mg/dL Est GFR (CKD-EPI)AfAm 35 (>60 ml/min/1.73 sqM) Est GFR (CKD-EPI)NonAf 30 (>60 ml/min/1.73 sqM) Glucose 313 H (74-99) mg/dL Calcium 9.3 (8.4-10.2) mg/dL Magnesium 1.5 L (1.6-2.3) mg/dL Total Bilirubin 0.5 (0.2-1.3) mg/dL AST 23 (14-36) U/L ALT 11 (4-34) U/L Alkaline Phosphatase 71 (38-126) U/L Troponin I (0.000-0.034) ng/mL Total Protein 6.8 (6.3-8.2) g/dL Albumin 3.7 (3.5-5.0) g/dL 09/01/20 Range/Units 15:08 WBC (3.8-10.6) k/uL RBC (3.80-5.40) m/uL Hgb (11.4-16.0) gm/dL Hct (34.0-46.0) % MCV (80.0-100.0) fL MCH (25.0-35.0) pg MCHC (31.0-37.0) g/dL RDW (11.5-15.5) % Plt Count (150-450) k/uL MPV Neutrophils % % Lymphocytes % % Monocytes % % Eosinophils % % Basophils % % Neutrophils # (1.3-7.7) k/uL Lymphocytes # (1.0-4.8) k/uL Monocytes # (0-1.0) k/uL Eosinophils # (0-0.7) k/uL Basophils # (0-0.2) k/uL PT (9.0-12.0) sec INR (<1.2) APTT (22.0-30.0) sec Sodium (137-145) mmol/L Potassium (3.5-5.1) mmol/L Chloride (98-107) mmol/L Carbon Dioxide (22-30) mmol/L Anion Gap mmol/L BUN (7-17) mg/dL Creatinine (0.52-1.04) mg/dL Est GFR (CKD-EPI)AfAm (>60 ml/min/1.73 sqM) Est GFR (CKD-EPI)NonAf (>60 ml/min/1.73 sqM) Glucose (74-99) mg/dL Calcium (8.4-10.2) mg/dL Magnesium (1.6-2.3) mg/dL Total Bilirubin (0.2-1.3) mg/dL AST (14-36) U/L ALT (4-34) U/L Alkaline Phosphatase (38-126) U/L Troponin I <0.012 (0.000-0.034) ng/mL Total Protein (6.3-8.2) g/dL Albumin (3.5-5.0) g/dL Disposition Clinical Impression: Atrial fibrillation with RVR Disposition: ADMITTED IP TO THIS HOSP Condition: Stable Is patient prescribed a controlled substance at d/c from ED?: No Referrals: Luis Shirley MD [Primary Care Provider] - 1-2 days Decision to Admit Reason: Admit from EC Decision Date: 09/01/20 Decision Time: 16:35
[2020-09-01] MEDS ORDERED: LORazepam 2 MG/ML INJ IV STA (15:11)
[2020-09-01 15:19] LABS: Basophils # (A) 0.1 k/uL (0-0.2); Basophils % (A) 1 %; Eosinophils # (A) 0.3 k/uL (0-0.7); Eosinophils % (A) 3 %; HCT 32.7 % (34.0-46.0); HGB 10.9 gm/dL (11.4-16.0); Lymphocytes # (A) 0.9 k/uL (1.0-4.8); Lymphocytes % (A) 8 %; MCH 29.5 pg (25.0-35.0); MCHC 33.3 g/dL (31.0-37.0); MCV 88.6 fL (80.0-100.0); Mean Platelet Volume 7.7; Monocytes # (A) 0.5 k/uL (0-1.0); Monocytes % (A) 4 %; Neutrophils # (A) 8.7 k/uL (1.3-7.7); Neutrophils % (A) 83 %; Platelet Count 301 k/uL (150-450); RBC 3.69 m/uL (3.80-5.40); WBC 10.4 k/uL (3.8-10.6)
[2020-09-01 15:33] LABS: INR 1.1 (<1.2); Partial Thromboplastin Time 25.9 sec (22.0-30.0); Prothrombin Time 11.8 sec (9.0-12.0)
[2020-09-01 15:35] LABS: Albumin 3.7 g/dL (3.5-5.0); Calcium 9.3 mg/dL (8.4-10.2); Magnesium 1.5 mg/dL (1.6-2.3); Potassium 4.4 mmol/L (3.5-5.1); Total Bilirubin 0.5 mg/dL (0.2-1.3); Total Protein 6.8 g/dL (6.3-8.2)
--- NOTE | 2020-09-01 15:39 | XR ---
EXAMINATION TYPE: XR chest 2V DATE OF EXAM: 09/01/2020 COMPARISON: 08/18/2020 TECHNIQUE: PA and lateral views submitted. HISTORY: Dysrhythmia FINDINGS: Heart is enlarged and there is a large calcification overlying the right lung apex which could be vas cular coarsened interstitium noted. No pneumothorax. No sizable pleural effusion. Limited inspiration . Hypertrophic and degenerative change of the spine. IMPRESSION: 1. Cardiomegaly correlate for interstitial venous congestion, interstitial lung disease or pneumoniti s. 2. 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 Finding stable.
[2020-09-01] MEDS ORDERED: SODIUM CHLORIDE 0.9% 500 ML 500 ML IV ONE (15:52)
[2020-09-01] MEDS ORDERED: DILTIAZEM 125 MG in SODIUM CHLORIDE 0.9% 100 ML IV SCH (16:15)
[2020-09-01] MEDS ORDERED: ACETAMINOPHEN TAB 325 MG TAB PO PRN (16:33)
[2020-09-01] MEDS ORDERED: NALOXONE 0.4 MG/ML 1 ML VIAL IV PRN (16:33)
[2020-09-01] MEDS ORDERED: MAGNESIUM SULFATE-D5W PMX 1 GM in DEXTROSE/WATER 1 100ML.BAG IVPB ONE (16:35)
[2020-09-01] MEDS ORDERED: MAGNESIUM OXIDE 400 MG TAB PO STA (18:00)
[2020-09-01] MEDS ORDERED: FAMOTIDINE 20 MG TAB PO PRN (20:19)
[2020-09-01 20:35] LABS: Glucose,Whole Blood 297 mg/dL (75-99)
[2020-09-01] MEDS: INSULIN ASPART (NovoLOG) 100 UNIT/ML VIAL SQ SCH (20:40)
[2020-09-01] MEDS: APIXABAN 5 MG TAB PO SCH (20:41)
[2020-09-01] MEDS: traMADol 50 MG TAB PO PRN (20:42)
--- NOTE | 2020-09-01 22:37 | P.HPIM ---
History of Present Illness H&P Date: 09/01/20 Chief Complaint: External defibrillator discharge. Patient is a 74-year-old female with a known history of coronary artery disease, cardiomyopathy with ejection fraction 20 to 25% with moderate to severe MR, chronic atrial fibrillation, diabetes type 2 and other medical problems was recently admitted to hospital due to acute hypoxic respiratory failure, sustained V. tach status post cardioversion and LifeVest placement due to cardiomyopathy ejection fraction 20 to 25% preserved EF with complaints of discharge of external Defibrillator in the LifeVest. Patient states that she was walking at home and have LifeVest while he was tangled and pulled out accidentally. She felt that her LifeVest was activated with pumping of the gel under the skin surface. Patient and her immediately took the battery out before the defibrillator discharge. She was never shocked. EMS was called and patient was found to be in wide-complex rhythm with heart rate of 100. Othe rwise patient denied any complaints of chest pain or shortness of. No dizziness or lightheadedness. No palpitations. Currently patient is symptomatic. Chest x-ray showed cardiomegaly, correlate for interstitial venous congestion. 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 Findings stable. EKG showed atrial fibrillation with rapid ventricular rate with heart rate of 130. Laboratory data showed WBC 10.4 hemoglobin 10.9 and platelets 301 Sodium 135 potassium 4.4 chloride 94 bicarb is 33 BUN 37 creatinine 1.65 baseline creatinine 1.21 Blood sugar is 313 and magnesium 1.5 Review of Systems Constitutional: Patient denies any fever or chills . No generalized weakness or weight loss. Abdomen: Patient denied nausea vomiting and diarrhea and abdominal pain. Cardiovascular: Patient denies any chest pain or short of breath no palpitations. Respiratory: patient denied any cough or sputum production. No shortness of breath Neurologic: Patient denied any numbness or tingling headache. Musculoskeletal: Patient denies any complaints of joint swelling or deformity. Skin: Negative Psychiatric: Negative Endocrine: No heat or cold intolerance. No recent weight gain. Genitourinary: No dysuria or hematuria. All other 14 point ROS negative except the above Past Medical History Past Medical History: Atrial Fibrillation, Coronary Artery Disease (CAD), CVA/TIA, Diabetes Mellitus, Deep Vein Thrombosis (DVT), Hyperlipidemia, Hypertension, Myocardial Infarction ([place]) Additional Past Medical History / Comment(s): tia, lt eye macular , COVID 19 in 05/2020, RLE wound stage 3 Last Myocardial Infarction Date:: unk History of Any Multi-Drug Resistant Organisms: None Reported Past Surgical History: Adenoidectomy, Hysterectomy, Orthopedic Surgery, Tonsillectomy, Tubal Ligation Additional Past Surgical History / Comment(s): pilonidal cyst twice as child, rt knee arthroscopy, krystyna cataracts,krystyna great toe sx, Additional Past Anesthesia/Blood Transfusion Reaction / Comment(s): difficulty waking up after sx. clausterphobia. 1960 blood transfusion(during child ) pt stated had palpitations after 2nd unit given Past Psychological History: No Psychological Hx Reported Smoking Status: Former smoker Past Alcohol Use History: None Reported Past Drug Use History: None Reported - Past Family History Mother Family Medical History: Cancer Additional Family Medical History / Comment(s): lung cancer Father Family Medical History: Coronary Artery Disease (CAD) Additional Family Medical History / Comment(s): heart disease, kidney disese Medications and Allergies Home Medications Medication Instructions Recorded Confirmed Type Potassium 297 mg PO W/SUPPER 03/31/18 09/01/20 History metFORMIN HCL ER [Glucophage Xr] 500 mg PO DAILY 03/31/18 09/01/20 History Cholecalciferol [Vitamin D3 (25 2,000 unit PO DAILY 04/01/18 09/01/20 History Mcg = 1000 Iu)] Potassium 99 mg PO QAM 04/01/18 09/01/20 History Timolol 0.5% Ophth Soln [Timoptic 1 drop BOTH EYES BID 04/01/18 09/01/20 History 0.5% Ophth Soln] Apixaban [Eliquis] 5 mg PO BID 08/13/20 09/01/20 History Ascorbic Acid [Vitamin C] 1,000 mg PO DAILY 08/13/20 09/01/20 History Famotidine 40 mg PO DAILY PRN 08/13/20 09/01/20 History Insulin Glargine,Hum.rec.anlog See Protocol SQ DAILY 08/13/20 09/01/20 History [Toujeo Max Solostar] Ipratropium [place] [Atrovent Hfa] 2 puff INHALATION RT-QID 08/13/20 09/01/20 History Spironolactone [Aldactone] 12.5 mg PO DAILY 08/13/20 09/01/20 History traMADol HCL 50 mg PO Q6H PRN 08/13/20 09/01/20 History Furosemide [Lasix] 60 mg PO BID@0900,1600 #180 tab 08/22/20 09/01/20 Rx Metoprolol Succinate (ER) [Toprol 100 mg PO DAILY #30 tab.er.24h 08/22/20 09/01/20 Rx XL] lisinopriL [Zestril] 2.5 mg PO DAILY #30 tab 08/22/20 09/01/20 Rx Insulin Glargine,Hum.rec.anlog 40 - 60 units SQ HS 09/01/20 09/01/20 History [Al Reynolds] Allergies Allergy/AdvReac Type Severity Reaction Status Date / Time adhesive Allergy Unknown Verified 09/01/20 16:18 aluminum Allergy Unknown Verified 09/01/20 16:18 Antihistamines - Allergy Unknown Verified 09/01/20 16:18 Ethylenediamine codeine Allergy Unknown Verified 09/01/20 16:18 epinephrine Allergy Unknown Verified 09/01/20 16:18 hydrogen peroxide Allergy Unknown Verified 09/01/20 16:18 latex Allergy Unknown Verified 09/01/20 16:18 lidocaine Allergy Unknown Verified 09/01/20 16:18 nickel Allergy Unknown Verified 09/01/20 16:18 petrolatum,white Allergy Unknown Verified 09/01/20 16:18 [From Petroleum Jelly] procaine HCl [From Novocain] Allergy Unknown Verified 09/01/20 16:18 shellfish derived [Shellfish] Allergy Unknown Verified 09/01/20 16:18 thiopental sodium Allergy Unknown Verified 09/01/20 16:18 [From Pentothal] egg yolk AdvReac Diarrhea Verified 09/01/20 16:18 Physical Exam Vitals: Vital Signs Temp Pulse Pulse Resp BP Pulse Ox 09/01/20 20:04 126 H 09/01/20 20:00 114 H 16 106/63 100 09/01/20 18:32 112 H 18 112/62 100 09/01/20 17:57 109 H 18 109/57 98 09/01/20 17:30 112 H 18 97/59 100 09/01/20 16:13 112 H 18 108/66 98 09/01/20 15:43 116 H 18 121/71 99 09/01/20 14:59 98.4 F 129 H 18 121/71 98 Intake and Output 09/01/20 09/01/20 09/01/20 06:59 14:59 22:59 Other: Weight 107.365 kg PHYSICAL EXAMINATION: Patient is lying in the bed comfortably, no acute distress, awake alert and oriented.. HEENT: Normocephalic. Neck is supple. Pupils reactive. Nostrils clear. Oral cavity is moist. Ears reveal no drainage. Neck reveals no JVD, carotid bruits, or thyromegaly. CHEST EXAMINATION: Trachea is central. Symmetrical expansion. Lung reynolds clear to auscultation and percussion. CARDIAC: Normal S1, S2 with no gallops. No murmurs Irregularly irregular rhythm.Systolic murmur. ABDOMEN: Soft. Bowel sounds normal. No organomegaly. No abdominal bruits. Extremities: reveal no edema. No clubbing or cyanosis Neurologically awake, alert, oriented x3 with well-coordinated movements. No focal deficits noted Skin: No rash or skin lesions. Psychiatric: Coperative. Nonsuicidal Musculoskeletal: No joint swelling or deformity. Normal range of motion. Results CBC & Chem 7: 09/01/20 15:08 09/01/20 15:08 Labs: Abnormal Lab Results - Last 24 Hours (Table) 09/01/20 09/01/20 09/01/20 Range/Units 15:08 15:08 20:33 RBC 3.69 L (3.80-5.40) m/uL Hgb 10.9 L (11.4-16.0) gm/dL Hct 32.7 L (34.0-46.0) % Neutrophils # 8.7 H (1.3-7.7) k/uL Lymphocytes # 0.9 L (1.0-4.8) k/uL Sodium 135 L (137-145) mmol/L Chloride 94 L (98-107) mmol/L Carbon Dioxide 33 H (22-30) mmol/L BUN 37 H (7-17) mg/dL Creatinine 1.65 H (0.52-1.04) mg/dL Glucose 313 H (74-99) mg/dL POC Glucose (mg/dL) 297 H (75-99) mg/dL Magnesium 1.5 L (1.6-2.3) mg/dL Thrombosis Risk Factor Assmnt - DVT/VTE Prophylaxis DVT/VTE Prophylaxis: Pharmacologic Prophylaxis ordered Assessment and Plan Assessment: Atrial fibrillation with rapid ventricular rate. External defibrillator accidental discharge. Recent history of sustained V. tach status post cardioversion. Chronic atrial fibrillation on anticoagulation with Eliquis Cardiomyopathy with ejection fraction 25%. Status post LifeVest placement during recent discharge. Plan for AICD in future. Moderate to severe MR Coronary artery disease history of [place] Previous history of DVT Hypertension Diabetes type 2 insulin-dependent uncontrolled with hyperglycemia Remote history of CVA Acute kidney injury likely prerenal with baseline creatinine 1.2 Patient history of COVID-19 infection in May 2020 Plan: Patient will be continued on telemetry monitoring. Started on Cardizem drip for heart rate control and patient will be started back on Toprol xl and home blood pressure medications. Patient will be continued Lantus and insulin sliding scale and titrate dose as needed. Cardiology was consulted. LifeVest will need to be interrogated and replaced. Further recommendations based on clinical course. Time with Patient: Greater than 30
[2020-09-01] MEDS: INSULIN DETEMIR (LEVEMIR) 100 UNIT/ML SYR SQ SCH (22:57)
[2020-09-02 02:30] LABS: Glucose,Whole Blood 209 mg/dL (75-99)
[2020-09-02 06:16] LABS: Glucose,Whole Blood 120 mg/dL (75-99)
[2020-09-02] MEDS: INSULIN ASPART (NovoLOG) 100 UNIT/ML VIAL SQ SCH ×4 (06:16→20:35)
[2020-09-02] MEDS: SPIRONOLACTONE 25 MG TAB PO SCH (08:55)
[2020-09-02] MEDS: APIXABAN 5 MG TAB PO SCH ×2 (08:55→20:35)
[2020-09-02] MEDS: FUROSEMIDE 20 MG TAB PO SCH ×2 (08:56→16:48)
[2020-09-02] MEDS: IPRATROPIUM 0.5 MG/2.5 ML NEBU INHALATION SCH ×4 (08:57→23:47)
[2020-09-02 08:59] LABS: Calcium 9.3 mg/dL (8.4-10.2); Magnesium 1.7 mg/dL (1.6-2.3); Potassium 4.1 mmol/L (3.5-5.1)
[2020-09-02] MEDS ORDERED: metFORMIN 500 MG TAB PO SCH (09:00)
[2020-09-02] MEDS ORDERED: NON FORMULARY DRUG (Potassium [Potassium] 99 MG Tablet) PO SCH (09:00)
[2020-09-02] MEDS ORDERED: METOPROLOL SUCCINATE (ER) 100 MG TAB.ER.24H PO SCH (09:00)
[2020-09-02] MEDS ORDERED: METOPROLOL SUCCINATE (ER) 50 MG TAB.ER.24H PO SCH (09:00)
--- NOTE | 2020-09-02 11:23 | P.CRDCN ---
History of Present Illness Consult date: 09/02/20 History of present illness: HISTORY OF PRESENT ILLNESS: This is a 74 year old female with a past medical history significant for with nonischemic cardiomyopathy, chronic atrial fibrillation, diabetes mellitus, hypertension, and hyperlipidemia. Patient follows in the office with Dr. Guillen. We have been asked to see the patient in consultation for atrial fibrillation. Patient examined at the bedside. Patient was hospitalized in July 2020. Patient was found to be in wide complex tachycardia and she was cardioverted in the emergency room. Patient was discharged home with a LifeVest at that time. Patient states yesterday she was walking around her house and she checked her heart rate which she occasionally does and found tube have a heart rate in the 80s. She states she was having some difficulties with her life vest and was getting the cords tangled. She states she began to feel a little dizzy and lightheaded. She reports the lifevest then released gel and she thought this was in error and she did not want to get shocked so she unblocked the device and came to the ER. She denies chest pain or pressure. She denies shortness of breath. Patient was found to be in A. fib with RVR upon admission at Hospital. Patient was started on IV Cardizem. EKG reveals A. fib with RVR Chest xray cardiomegaly. Correlate for interstitial venous congestion, interstitial lung disease or pneumonitis. Laboratory data: WBC 10.4. Hemoglobin 10.9. Pletal count 301. Sodium 136. Potassium 4.1. BUN 34. Creatinine 1.58. Magnesium 1.7. Troponin negative 1. Current home cardiac medications include lisinopril 2.5 mg daily, Aldactone 12.5 mg daily, metoprolol succinate 100 mg daily, Lasix 60 mg twice a day, and Eliquis 5 mg twice a day Most recent echocardiogram obtained in July 2019 revealed ejection fraction 20- 25%, severe global hypokinesis, moderate to severe mitral regurgitation, and moderate tricuspid regurgitation Cardiac catheterization history: Patient underwent cardiac catheterization in April 2019 at [facility] revealing normal coronary arteries. REVIEW OF SYSTEMS: At the time of my exam: CONSTITUTIONAL: Denies fever or chills. HEENT: Denies blurred vision, vision changes, or eye pain. Denies hemoptysis CARDIOVASCULAR: Denies chest pain. Denies orthopnea. Denies PND. Denies palpitations RESPIRATORY: Denies shortness of breath. GASTROINTESTINAL: Denies abdominal pain. Denies nausea or vomiting. HEMATOLOGIC: Denies bleeding disorders. GENITOURINARY: Denies any blood in urine. SKIN: Denies pruitis. Denies rash. PHYSICAL EXAM: VITAL SIGNS: Reviewed. GENERAL: Well-developed in no acute distress. HEENT: Head is normocephalic. Pupils are equal, round. Sclerae anicteric. Mucous membranes of the mouth are moist. Neck supple. No JVD or thyromegaly LUNGS: Respirations even and unlabored. Lungs essentially clear to auscultation bilaterally. HEART: Tachycardic. Irregular rate and rhythm. S1 and S2 heard. Systolic murmur noted. ABDOMEN: Soft. Nondistended. Nontender. EXTREMITIES: Normal range of motion. No clubbing or cyanosis. Peripheral pulses intact. Trace bilateral lower extremity edema NEUROLOGIC: Awake and alert. Oriented x 3. ASSESSMENT: Possible near discharge of external defibrillator Chronic persistent atrial fibrillation with RVR Nonischemic cardiomyopathy Hypertension Hyperlipidemia Diabetes mellitus Chronic systolic heart failure, currently euvolemic History of wide complex tachycardia requiring cardioversion, July 2020 Acute kidney injury PLAN: Discontinue IV Cardizem secondary to patient's cardiomyopathy Increase metoprolol succinate 100 mg twice a day Give magnesium IV 2 g Monitor electrolytes Continue telemetry monitoring Obtain limited echo to assess LV function Patient states she does not want to wear her life vest anymore when she is discharged from the hospital. Device Rep, Sharron notified Spoke with LifeVest device rep this morning. They will interrogate patient's LifeVest to determine if patient had any arrhythmias yesterday at the the event. Further recommendations pending patient course Nurse practitioner note has been reviewed by physician. Signing provider agrees with the documented findings, assessment, and plan of care. Past Medical History Past Medical History: Atrial Fibrillation, Coronary Artery Disease (CAD), CVA/TIA, Diabetes Mellitus, Deep Vein Thrombosis (DVT), Hyperlipidemia, Hypertension, Myocardial Infarction (CO) Additional Past Medical History / Comment(s): tia, lt eye macular , COVID 19 in 05/2020, RLE wound stage 3 Last Myocardial Infarction Date:: unk History of Any Multi-Drug Resistant Organisms: None Reported Past Surgical History: Adenoidectomy, Hysterectomy, Orthopedic Surgery, Tonsillectomy, Tubal Ligation Additional Past Surgical History / Comment(s): pilonidal cyst twice as child, rt knee arthroscopy, krystyna cataracts,krystyna great toe sx, Additional Past Anesthesia/Blood Transfusion Reaction / Comment(s): difficulty waking up after sx. clausterphobia. 1961 blood transfusion(during child ) pt stated had palpitations after 2nd unit given Past Psychological History: No Psychological Hx Reported Smoking Status: Never smoker Past Alcohol Use History: None Reported Past Drug Use History: None Reported - Past Family History Mother Family Medical History: Cancer Additional Family Medical History / Comment(s): lung cancer Father Family Medical History: Coronary Artery Disease (CAD) Additional Family Medical History / Comment(s): heart disease, kidney disese Medications and Allergies Home Medications Medication Instructions Recorded Confirmed Type Potassium 297 mg PO W/SUPPER 03/31/18 09/01/20 History metFORMIN HCL ER [Glucophage Xr] 500 mg PO DAILY 03/31/18 09/01/20 History Cholecalciferol [Vitamin D3 (25 2,000 unit PO DAILY 04/01/18 09/01/20 History Mcg = 1000 Iu)] Potassium 99 mg PO QAM 04/01/18 09/01/20 History Timolol 0.5% Ophth Soln [Timoptic 1 drop BOTH EYES BID 04/01/18 09/01/20 History 0.5% Ophth Soln] Apixaban [Eliquis] 5 mg PO BID 08/13/20 09/01/20 History Ascorbic Acid [Vitamin C] 1,000 mg PO DAILY 08/13/20 09/01/20 History Famotidine 40 mg PO DAILY PRN 08/13/20 09/01/20 History Insulin Glargine,Hum.rec.anlog See Protocol SQ DAILY 08/13/20 09/01/20 History [Toujeo Max Solostar] Ipratropium [place] [Atrovent Hfa] 2 puff INHALATION RT-QID 08/13/20 09/01/20 History Spironolactone [Aldactone] 12.5 mg PO DAILY 08/13/20 09/01/20 History traMADol HCL 50 mg PO Q6H PRN 08/13/20 09/01/20 History Furosemide [Lasix] 60 mg PO BID@0900,1600 #180 tab 08/22/20 09/01/20 Rx Metoprolol Succinate (ER) [Toprol 100 mg PO DAILY #30 tab.er.24h 08/22/20 09/01/20 Rx XL] lisinopriL [Zestril] 2.5 mg PO DAILY #30 tab 08/22/20 09/01/20 Rx Insulin Glargine,Hum.rec.anlog 40 - 60 units SQ HS 09/01/20 09/01/20 History [Toujeo Levi Solostar] Ipratropium Nebulized [Atrovent 0.5 mg INHALATION Q6HR 09/02/20 09/02/20 History Nebulized 0.2 MG/ML] Allergies Allergy/AdvReac Type Severity Reaction Status Date / Time adhesive Allergy Unknown Verified 09/01/20 16:18 aluminum Allergy Unknown Verified 09/01/20 16:18 Antihistamines - Allergy Unknown Verified 09/01/20 16:18 Ethylenediamine codeine Allergy Unknown Verified 09/01/20 16:18 epinephrine Allergy Unknown Verified 09/01/20 16:18 hydrogen peroxide Allergy Unknown Verified 09/01/20 16:18 latex Allergy Unknown Verified 09/01/20 16:18 lidocaine Allergy Unknown Verified 09/01/20 16:18 nickel Allergy Unknown Verified 09/01/20 16:18 petrolatum,white Allergy Unknown Verified 09/01/20 16:18 [From Petroleum Jelly] procaine HCl [From Novocain] Allergy Unknown Verified 09/01/20 16:18 shellfish derived [Shellfish] Allergy Unknown Verified 09/01/20 16:18 thiopental sodium Allergy Unknown Verified 09/01/20 16:18 [From Pentothal] egg yolk AdvReac Diarrhea Verified 09/01/20 16:18 Physical Exam Vitals: Vital Signs Temp Pulse Pulse Resp BP BP Pulse Ox 09/02/20 09:13 76 09/02/20 08:58 76 09/02/20 07:58 98.8 F 125 H 20 183/106 98 09/02/20 04:00 97.9 F 111 H 16 118/56 99 09/01/20 23:20 98.1 F 128 H 18 134/74 100 09/01/20 22:59 96 16 107/52 99 09/01/20 22:00 98.4 F 114 H 16 98/69 98 09/01/20 20:04 126 H 09/01/20 20:00 114 H 16 106/63 100 09/01/20 18:32 112 H 18 112/62 100 09/01/20 17:57 109 H 18 109/57 98 09/01/20 17:30 112 H 18 97/59 100 09/01/20 16:13 112 H 18 108/66 98 09/01/20 15:43 116 H 18 121/71 99 09/01/20 14:59 98.4 F 129 H 18 121/71 98 Intake and Output 09/01/20 09/02/20 09/02/20 22:59 06:59 14:59 Intake Total 280 Balance 280 Intake: Oral 280 Other: Voiding Method Toilet # Voids 1 Weight 109.2 kg Results 09/01/20 15:08 09/02/20 08:09 Cardiac Enzymes 09/01/20 09/01/20 Range/Units 15:08 15:08 AST 23 (14-36) U/L Troponin I <0.012 (0.000-0.034) ng/mL Coagulation 09/01/20 Range/Units 15:08 PT 11.8 (9.0-12.0) sec APTT 25.9 (22.0-30.0) sec CBC 09/01/20 Range/Units 15:08 WBC 10.4 (3.8-10.6) k/uL RBC 3.69 L (3.80-5.40) m/uL Hgb 10.9 L (11.4-16.0) gm/dL Hct 32.7 L (34.0-46.0) % Plt Count 301 (150-450) k/uL Comprehensive Metabolic Panel 09/01/20 09/02/20 Range/Units 15:08 08:09 Sodium 135 L 136 L (137-145) mmol/L Potassium 4.4 4.1 (3.5-5.1) mmol/L Chloride 94 L 97 L (98-107) mmol/L Carbon Dioxide 33 H 32 H (22-30) mmol/L BUN 37 H 34 H (7-17) mg/dL Creatinine 1.65 H 1.58 H (0.52-1.04) mg/dL Glucose 313 H 188 H (74-99) mg/dL Calcium 9.3 9.3 (8.4-10.2) mg/dL AST 23 (14-36) U/L ALT 11 (4-34) U/L Alkaline Phosphatase 71 (38-126) U/L Total Protein 6.8 (6.3-8.2) g/dL Albumin 3.7 (3.5-5.0) g/dL Current Medications Generic Name Dose Route Start Last Admin Trade Name Freq PRN Reason Stop Dose Admin Acetaminophen 650 mg 09/01/20 16:33 Acetaminophen Tab 325 Mg Tab PO Q6HR PRN Mild Pain or Fever > 100.5 Apixaban 5 mg 09/01/20 21:00 09/02/20 08:55 Apixaban 5 Mg Tab PO 5 mg BID HARIKA Administration Protocol Famotidine 40 mg 09/01/20 20:19 Famotidine 20 Mg Tab PO DAILY PRN acid reflux Furosemide 60 mg 09/02/20 09:00 09/02/20 08:56 Furosemide 20 Mg Tab PO 60 mg BID@0900,1600 HARIKA Administration Insulin Aspart 0 unit 09/01/20 21:00 09/02/20 06:16 Insulin Aspart (Novolog) 100 Unit/Ml Vial SQ Not Given ACHS HARIKA Protocol Insulin Detemir 40 unit 09/01/20 22:50 09/01/20 22:57 Insulin Detemir (Levemir) 100 Unit/Ml Syr SQ 40 unit HS HARIKA Administration Ipratropium [place] 0.5 mg 09/02/20 09:00 09/02/20 08:57 Ipratropium 0.5 Mg/2.5 Ml Nebu INHALATION 0.5 mg RT-Q6H HARIKA Administration Lisinopril 2.5 mg 09/02/20 09:00 09/02/20 08:55 Lisinopril 2.5 Mg Tab PO 2.5 mg DAILY HARIKA Administration Metoprolol Succinate 100 mg 09/02/20 21:00 Metoprolol Succinate (Er) 100 Mg Tab.Er.24h PO BID HARIKA Naloxone HCl 0.2 mg 09/01/20 16:33 Naloxone 0.4 Mg/Ml 1 Ml Vial IV Q2M PRN Opioid Reversal Spironolactone 12.5 mg 09/02/20 09:00 09/02/20 08:55 Spironolactone 25 Mg Tab PO 12.5 mg DAILY HARIKA Administration Tramadol HCl 50 mg 09/01/20 20:19 09/01/20 20:42 Tramadol 50 Mg Tab PO 50 mg Q6H PRN Administration Pain Intake and Output 09/01/20 09/02/20 09/02/20 22:59 06:59 14:59 Intake Total 280 Balance 280 Intake: Oral 280 Other: Voiding Method Toilet # Voids 1 Weight 109.2 kg 09/01/20 15:08 09/02/20 08:09
[2020-09-02 11:51] LABS: Glucose,Whole Blood 147 mg/dL (75-99)
[2020-09-02] MEDS: ALPRAZolam 0.25 MG TAB PO PRN ×2 (12:29→18:36)
[2020-09-02] MEDS: MAGNESIUM SULFATE-D5W PMX 1 GM in DEXTROSE/WATER 1 100ML.BAG IVPB SCH ×2 (12:29→13:49)
--- NOTE | 2020-09-02 14:44 | P.PN ---
Subjective Progress Note Date: 09/02/20 Principal diagnosis: Atrial fibrillation with rapid ventricular rate Ms. Seth is a 74-year-old female with the past medical history of coronary artery disease, cardiomyopathy with ejection fraction 20-25% with moderate to severe MR, chronic A. fib,diabetes mellitus admitted to the hospital stating that there was discharge of external defibrillator in the left breast. Patient was recently admitted to the hospital for respiratory failure sustained V. tach status post cardioversion and discharged home on LifeVest.Patient states that she was walking at home and have LifeVest while he was tangled and pulled out accidentally. She felt that her LifeVest was activated with pumping of the gel under the skin surface. Patient and her immediately took the battery o ut before the defibrillator discharge. She was never shocked. EMS was called and patient was found to be in wide-complex rhythm with heart rate of 100. Patient had chest x-ray done showing cardiomegaly and mild interstitial venous congestion. EKG showing A. fib with RVR heart rate in 130s. On 09/02/2020- patient was seen and examined at the bedside. Patient denies having any chest pain or palpitations. No cough or difficulty in breathing. She denies having any fevers chills or rigors. No abdominal pain nausea vomiting or diarrhea. No dysuria or hematuria. On reviewing her vitals heart rate between 110s to 120s, temperature 98.6, respiratory rate 18, saturating at 100% on 2 L of nasal cannula and blood pressure 129/78. Reviewing the labs from this morning showing sodium 136, potassium 4.1, chloride 97, bicarb 32, BUN 34, creatinine 1.58. Reviewing the medications: Tylenol, Xanax, Eliquis, Pepcid, Lasix, NovoLog, Levemir, albuterol, lisinopril, metoprolol, Narcan, Aldactone, tramadol Objective - Vital Signs Vital signs: Vital Signs Temp 98.8 F 09/02/20 07:58 Pulse 76 09/02/20 09:13 Resp 20 09/02/20 07:58 BP 183/106 09/02/20 07:58 Pulse Ox 98 09/02/20 07:58 Intake & Output 09/01/20 09/02/20 09/02/20 18:59 06:59 18:59 Intake Total 280 Balance 280 Weight 107.365 kg 109.2 kg Intake: Oral 280 Other: Voiding Method Toilet # Voids 1 - Exam PHYSICAL EXAMINATION: Patient is lying in the bed comfortably, no acute distress, awake alert and oriented.. HEENT: Normocephalic. Neck is supple. Pupils reactive. Nostrils clear. Oral cavity is moist. Neck reveals no JVD, carotid bruits, or thyromegaly. CHEST EXAMINATION: Trachea is central. Symmetrical expansion. Lung reynolds clear to auscultation and percussion. CARDIAC: Normal S1, S2 with no gallops. No murmurs Irregularly irregular rhythm.Systolic murmur. ABDOMEN: Soft. Bowel sounds normal. No organomegaly. No abdominal bruits. Extremities: reveal no edema. No clubbing or cyanosis Neurologically awake, alert, oriented x3 with well-coordinated movements. No focal deficits noted Skin: No rash or skin lesions. Psychiatric: Coperative. Nonsuicidal Musculoskeletal: No joint swelling or deformity. Normal range of motion. - Labs CBC & Chem 7: 09/03/20 08:13 09/04/20 07:16 Labs: Abnormal Lab Results - Last 24 Hours (Table) 09/01/20 09/01/20 09/01/20 Range/Units 15:08 15:08 20:33 RBC 3.69 L (3.80-5.40) m/uL Hgb 10.9 L (11.4-16.0) gm/dL Hct 32.7 L (34.0-46.0) % Neutrophils # 8.7 H (1.3-7.7) k/uL Lymphocytes # 0.9 L (1.0-4.8) k/uL Sodium 135 L (137-145) mmol/L Chloride 94 L (98-107) mmol/L Carbon Dioxide 33 H (22-30) mmol/L BUN 37 H (7-17) mg/dL Creatinine 1.65 H (0.52-1.04) mg/dL Glucose 313 H (74-99) mg/dL POC Glucose (mg/dL) 297 H (75-99) mg/dL Magnesium 1.5 L (1.6-2.3) mg/dL 09/01/20 09/02/20 09/02/20 Range/Units 22:56 06:15 08:09 RBC (3.80-5.40) m/uL Hgb (11.4-16.0) gm/dL Hct (34.0-46.0) % Neutrophils # (1.3-7.7) k/uL Lymphocytes # (1.0-4.8) k/uL Sodium 136 L (137-145) mmol/L Chloride 97 L (98-107) mmol/L Carbon Dioxide 32 H (22-30) mmol/L BUN 34 H (7-17) mg/dL Creatinine 1.58 H (0.52-1.04) mg/dL Glucose 188 H (74-99) mg/dL POC Glucose (mg/dL) 209 H 120 H (75-99) mg/dL Magnesium (1.6-2.3) mg/dL 09/02/20 Range/Units 11:49 RBC (3.80-5.40) m/uL Hgb (11.4-16.0) gm/dL Hct (34.0-46.0) % Neutrophils # (1.3-7.7) k/uL Lymphocytes # (1.0-4.8) k/uL Sodium (137-145) mmol/L Chloride (98-107) mmol/L Carbon Dioxide (22-30) mmol/L BUN (7-17) mg/dL Creatinine (0.52-1.04) mg/dL Glucose (74-99) mg/dL POC Glucose (mg/dL) 147 H (75-99) mg/dL Magnesium (1.6-2.3) mg/dL Assessment and Plan Assessment: ASSESSMENT Atrial fibrillation with rapid ventricular rate. External defibrillator possibly near discharge. Recent history of sustained V. tach status post cardioversion. Chronic atrial fibrillation on anticoagulation with Eliquis Cardiomyopathy with ejection fraction 25%. Status post LifeVest placement during recent discharge. Plan for AICD in future. 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 Patient's metoprolol dose has been increased from 50 to 100 mg twice a day. 2-D echocardiogram has been ordered. Patient does not want to be on LifeVest anymore, device national account representative consulted and waiting for interrogation to see if the patient had any arrhythmias that have been recorded. Patient to be continued on telemetry monitoring. Continue with the rest of her current medication regimen. Further recommendations to follow depending on the progress of the patient.
[2020-09-02 17:18] LABS: Glucose,Whole Blood 189 mg/dL (75-99)
[2020-09-02 20:19] LABS: Glucose,Whole Blood 260 mg/dL (75-99)
[2020-09-02] MEDS: METOPROLOL SUCCINATE (ER) 100 MG TAB.ER.24H PO SCH (20:34)
[2020-09-02] MEDS: INSULIN DETEMIR (LEVEMIR) 100 UNIT/ML SYR SQ SCH (20:35)
[2020-09-03] MEDS: traMADol 50 MG TAB PO PRN (03:35)
[2020-09-03] MEDS: INSULIN ASPART (NovoLOG) 100 UNIT/ML VIAL SQ SCH ×4 (06:11→21:14)
[2020-09-03 06:14] LABS: Glucose,Whole Blood 91 mg/dL (75-99)
[2020-09-03] MEDS: IPRATROPIUM 0.5 MG/2.5 ML NEBU INHALATION SCH ×4 (07:39→23:56)
[2020-09-03 08:55] LABS: Basophils # (A) 0.1 k/uL (0-0.2); Basophils % (A) 1 %; Eosinophils # (A) 0.6 k/uL (0-0.7); Eosinophils % (A) 6 %; HGB 11.1 gm/dL (11.4-16.0); Hypochromasia Slight; Lymphocytes # (A) 1.9 k/uL (1.0-4.8); Lymphocytes % (A) 20 %; MCH 29.6 pg (25.0-35.0); MCHC 32.7 g/dL (31.0-37.0); MCV 90.5 fL (80.0-100.0); Mean Platelet Volume 7.6; Monocytes # (A) 0.6 k/uL (0-1.0); Monocytes % (A) 7 %; Neutrophils # (A) 6.1 k/uL (1.3-7.7); Neutrophils % (A) 64 %; Platelet Count 303 k/uL (150-450); RBC 3.76 m/uL (3.80-5.40); RDW 15.1 % (11.5-15.5); WBC 9.5 k/uL (3.8-10.6)
[2020-09-03 09:08] LABS: Calcium 9.5 mg/dL (8.4-10.2); Magnesium 2.1 mg/dL (1.6-2.3)
--- NOTE | 2020-09-03 09:13 | P.PN ---
Subjective Progress Note Date: 09/03/20 HISTORY OF PRESENT ILLNESS: This is a 74 year old female with a past medical history significant for with nonischemic cardiomyopathy, chronic atrial fibrillation, diabetes mellitus, hypertension, and hyperlipidemia. Patient follows in the office with Dr. Guillen. We have been asked to see the patient in consultation for atrial fibrillation. Patient examined at the bedside. Patient was hospitalized in July 2020. Patient was found to be in wide complex tachycardia and she was cardioverted in the emergency room. Patient was discharged home with a LifeVest at that time. Patient states yesterday she was walking around her house and she checked her heart rate which she occasionally does and found tube have a heart rate in the 80s. She states she was having some difficulties with her life vest and was getting the cords tangled. She states she began to feel a little dizzy and lightheaded. She reports the lifevest then released gel and she thought this was in error and she did not want to get shocked so she unblocked the device and came to the ER. She denies chest pain or pressure. She denies shortness of breath. Patient was found to be in A. fib with RVR upon admission at Hospital. Patient was started on IV Cardizem. EKG reveals A. fib with RVR Chest xray cardiomegaly. Correlate for interstitial venous congestion, interstitial lung disease or pneumonitis. Laboratory data: WBC 10.4. Hemoglobin 10.9. Pletal count 301. Sodium 136. Potassium 4.1. BUN 34. Creatinine 1.58. Magnesium 1.7. Troponin negative 1. Current home cardiac medications include lisinopril 2.5 mg daily, Aldactone 12.5 mg daily, metoprolol succinate 100 mg daily, Lasix 60 mg twice a day, and Eliquis 5 mg twice a day Most recent echocardiogram obtained in July 2019 revealed ejection fraction 20- 25%, severe global hypokinesis, moderate to severe mitral regurgitation, and moderate tricuspid regurgitation Cardiac catheterization history: Patient underwent cardiac catheterization in April 2019 at [facility] revealing normal coronary arteries. 09/03/2020 Patient examined this morning at the bedside. Patient denies chest pain or pressure. She denies shortness of breath. She denies dizziness or lightheadedness. She denies palpitations. Patient remains in atrial fibrillation with uncontrolled ventricular rate. Currently in the 120s. Patient does report anxiety due to current health conditions. LifeVest interrogation reviewed with Dr. Mckenna reveals ventricular tachycardia versus afib with RVR. PHYSICAL EXAM: VITAL SIGNS: Reviewed. GENERAL: Well-developed in no acute distress. HEENT: Head is normocephalic. Pupils are equal, round. Sclerae anicteric. Mucous membranes of the mouth are moist. Neck supple. No JVD or thyromegaly LUNGS: Respirations even and unlabored. Lungs essentially clear to auscultation bilaterally. HEART: Tachycardic. Irregular rate and rhythm. S1 and S2 heard. Systolic murmur noted. ABDOMEN: Soft. Nondistended. Nontender. EXTREMITIES: Normal range of motion. No clubbing or cyanosis. Peripheral p ulses intact. Trace bilateral lower extremity edema NEUROLOGIC: Awake and alert. Oriented x 3. ASSESSMENT: Possible near discharge of external defibrillator, patient unplugged device Ventricular tachycardia versus afib with RVR Chronic persistent atrial fibrillation with RVR Nonischemic cardiomyopathy Hypertension Hyperlipidemia Diabetes mellitus Chronic systolic heart failure, currently euvolemic History of wide complex tachycardia requiring cardioversion, July 2020 Acute kidney injury PLAN: Continue current cardiac medications Monitor electrolytes Continue telemetry monitoring Limited echo obtained. Await results. Patient states she does not want to wear her life vest anymore when she is discharged from the hospital. Device Rep, Sharron notified Patient will require AICD implantation. This will be discussed with Dr. 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 Nurse practitioner note has been reviewed by physician. Signing provider agrees with the documented findings, assessment, and plan of care. Objective - Vital Signs Vital signs: Vital Signs Temp 98.7 F 09/03/20 08:30 Pulse 122 H 09/03/20 08:30 Resp 20 09/03/20 08:30 BP 97/54 09/03/20 08:30 Pulse Ox 99 09/03/20 08:30 Intake & Output 09/02/20 09/03/20 09/03/20 18:59 06:59 18:59 Intake Total 280 420 Balance 280 420 Weight 109.2 kg 107.4 kg Intake: Oral 280 420 Other: Voiding Method Toilet # Voids 1 1 - Labs CBC & Chem 7: 09/03/20 08:13 09/03/20 08:13 Labs: Abnormal Lab Results - Last 24 Hours (Table) 09/02/20 09/02/20 09/02/20 Range/Units 11:49 17:17 20:03 RBC (3.80-5.40) m/uL Hgb (11.4-16.0) gm/dL BUN (7-17) mg/dL Creatinine (0.52-1.04) mg/dL Glucose (74-99) mg/dL POC Glucose (mg/dL) 147 H 189 H 260 H (75-99) mg/dL 09/03/20 09/03/20 Range/Units 08:13 08:13 RBC 3.76 L (3.80-5.40) m/uL Hgb 11.1 L (11.4-16.0) gm/dL BUN 30 H (7-17) mg/dL Creatinine 1.53 H (0.52-1.04) mg/dL Glucose 151 H (74-99) mg/dL POC Glucose (mg/dL) (75-99) mg/dL
[2020-09-03] MEDS: SPIRONOLACTONE 25 MG TAB PO SCH (09:15)
[2020-09-03] MEDS: ALPRAZolam 0.25 MG TAB PO PRN ×2 (09:15→23:26)
[2020-09-03] MEDS: FUROSEMIDE 20 MG TAB PO SCH ×2 (09:15→17:18)
[2020-09-03] MEDS: METOPROLOL SUCCINATE (ER) 100 MG TAB.ER.24H PO SCH ×2 (09:16→21:13)
[2020-09-03] MEDS: APIXABAN 5 MG TAB PO SCH ×2 (09:16→21:13)
[2020-09-03 11:55] LABS: Glucose,Whole Blood 250 mg/dL (75-99)
--- NOTE | 2020-09-03 13:46 | P.PN ---
Subjective Progress Note Date: 09/03/20 Principal diagnosis: Atrial fibrillation with rapid ventricular rate Ms. Seth is a 74-year-old female with the past medical history of coronary artery disease, cardiomyopathy with ejection fraction 20-25% with moderate to severe MR, chronic A. fib,diabetes mellitus admitted to the hospital stating that there was discharge of external defibrillator in the left breast. Patient was recently admitted to the hospital for respiratory failure sustained V. tach status post cardioversion and discharged home on LifeVest.Patient states that she was walking at home and have LifeVest while he was tangled and pulled out accidentally. She felt that her LifeVest was activated with pumping of the gel under the skin surface. Patient and her immediately took the battery o ut before the defibrillator discharge. She was never shocked. EMS was called and patient was found to be in wide-complex rhythm with heart rate of 100. Patient had chest x-ray done showing cardiomegaly and mild interstitial venous congestion. EKG showing A. fib with RVR heart rate in 130s. On 09/02/2020- patient was seen and examined at the bedside. Patient denies having any chest pain or palpitations. No cough or difficulty in breathing. She denies having any fevers chills or rigors. No abdominal pain nausea vomiting or diarrhea. No dysuria or hematuria. On reviewing her vitals heart rate between 110s to 120s, temperature 98.6, respiratory rate 18, saturating at 100% on 2 L of nasal cannula and blood pressure 129/78. Reviewing the labs from this morning showing sodium 136, potassium 4.1, chloride 97, bicarb 32, BUN 34, creatinine 1.58. On 09/03/2020 - patient is seen and examined at the bedside. She is comfortably sitting up in a chair by the bedside it is to be no acute distress. Patient denies having any chest pain or palpitations. She states that her lower extremi ty swelling is improving. Patient denies having any cough or difficulty in breathing. No abdominal pain nausea vomiting or diarrhea. No dysuria or hematuria. On reviewing her vitals T-max 98.7, atrial fibrillation with rate around 100 to 120s, respiratory rate 20, blood pressure 1:30/63, saturating at 99% on room air. On reviewing her labs white count of 9.5, hemoglobin 11.1, platelets 303. Sodium 138 compression 4, chloride 98, bicarbonate 30, BUN 30, creatinine 1.53. Reviewing the medications: Tylenol, Xanax, Eliquis, Pepcid, Lasix, NovoLog, Levemir, albuterol, lisinopril, metoprolol, Narcan, Aldactone, tramadol Objective - Vital Signs Vital signs: Vital Signs Temp 97.4 F L 09/03/20 12:00 Pulse 96 09/03/20 12:20 Resp 18 09/03/20 12:00 BP 130/63 09/03/20 12:00 Pulse Ox 99 09/03/20 12:00 Intake & Output 09/02/20 09/03/20 09/03/20 18:59 06:59 18:59 Intake Total 280 420 Balance 280 420 Weight 109.2 kg 107.4 kg Intake: Oral 280 420 Other: Voiding Method Toilet # Voids 1 1 2 - Exam PHYSICAL EXAMINATION: Patient is lying in the bed comfortably, no acute distress, awake alert and oriented.. HEENT: Normocephalic. Neck is supple. Pupils reactive. No pallor. Neck reveals no JVD, carotid bruits, or thyromegaly. CHEST EXAMINATION: Trachea is central. Symmetrical expansion. Lung reynolds clear to auscultation CARDIAC: Normal S1, S2 with no gallops. No murmurs Irregularly irregular rhythm.Systolic murmur. ABDOMEN: Soft. Bowel sounds normal. No organomegaly. No abdominal bruits. Extremities: reveal no edema. No clubbing or cyanosis Neurologically awake, alert, oriented x3 with well-coordinated movements. No focal deficits noted Skin: Seborrheic keratitis on the upper back Psychiatric: Coperative. Nonsuicidal Musculoskeletal: No joint swelling or deformity. Normal range of motion. - Labs CBC & Chem 7: 09/03/20 08:13 09/03/20 08:13 Labs: Abnormal Lab Results - Last 24 Hours (Table) 09/02/20 09/02/20 09/03/20 Range/Units 17:17 20:03 08:13 RBC (3.80-5.40) m/uL Hgb (11.4-16.0) gm/dL BUN 30 H (7-17) mg/dL Creatinine 1.53 H (0.52-1.04) mg/dL Glucose 151 H (74-99) mg/dL POC Glucose (mg/dL) 189 H 260 H (75-99) mg/dL 09/03/20 09/03/20 Range/Units 08:13 11:42 RBC 3.76 L (3.80-5.40) m/uL Hgb 11.1 L (11.4-16.0) gm/dL BUN (7-17) mg/dL Creatinine (0.52-1.04) mg/dL Glucose (74-99) mg/dL POC Glucose (mg/dL) 250 H (75-99) mg/dL Assessment and Plan Assessment: ASSESSMENT Atrial fibrillation with rapid ventricular rate. External defibrillator possibly near discharge. Recent history of sustained V. tach status post cardioversion. Chronic atrial fibrillation on anticoagulation with Eliquis Cardiomyopathy with ejection fraction 25%. Status post LifeVest placement during recent discharge. Plan for AICD in future. 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 Dr. Banegas reviewed her LifeVest interrogation and it reveals ventricular tachycardia versus A. fib with RVR. 2- D echocardiogram has been ordered- pending results. Patient does not want to be on LifeVest anymore. 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 Guillen. Patient to be continued on telemetry monitoring. Continue with the rest of her current medication regimen. Further recommendations to follow depending on the progress of the patient.
[2020-09-03 17:16] LABS: Glucose,Whole Blood 239 mg/dL (75-99)
[2020-09-03] MEDS: INSULIN DETEMIR (LEVEMIR) 100 UNIT/ML SYR SQ SCH (21:14)
[2020-09-03 21:20] LABS: Glucose,Whole Blood 319 mg/dL (75-99)
[2020-09-04] MEDS: traMADol 50 MG TAB PO PRN ×3 (02:43→20:34)
[2020-09-04] MEDS: INSULIN ASPART (NovoLOG) 100 UNIT/ML VIAL SQ SCH ×5 (06:32→20:24)
[2020-09-04 06:35] LABS: Glucose,Whole Blood 158 mg/dL (75-99)
[2020-09-04] MEDS: APIXABAN 5 MG TAB PO SCH ×2 (08:15→20:24)
[2020-09-04] MEDS: SPIRONOLACTONE 25 MG TAB PO SCH (08:16)
[2020-09-04] MEDS: METOPROLOL SUCCINATE (ER) 100 MG TAB.ER.24H PO SCH (08:16)
[2020-09-04] MEDS: FUROSEMIDE 20 MG TAB PO SCH ×2 (08:16→13:25)
[2020-09-04 08:27] LABS: Calcium 9.2 mg/dL (8.4-10.2)
[2020-09-04] MEDS: IPRATROPIUM 0.5 MG/2.5 ML NEBU INHALATION SCH ×3 (08:39→19:22)
[2020-09-04] MEDS: ASCORBIC ACID 500 MG TAB PO SCH (10:20)
[2020-09-04] MEDS: CHOLECALCIFEROL 25 MCG (1000 IU) TABLET PO SCH (10:20)
[2020-09-04] MEDS ORDERED: METOPROLOL SUCCINATE (ER) 50 MG TAB.ER.24H PO STA (11:37)
[2020-09-04 11:56] LABS: Glucose,Whole Blood 234 mg/dL (75-99)
--- NOTE | 2020-09-04 12:55 | P.PN ---
Subjective This is a 74 year old female with a past medical history significant for with nonischemic cardiomyopathy, chronic atrial fibrillation, diabetes mellitus, hypertension, and hyperlipidemia. Patient follows in the office with Dr. Guillen. We have been asked to see the patient in consultation for atrial fibrillation. Patient examined at the bedside. Patient was hospitalized in July 2020. Patient was found to be in wide complex tachycardia and she was cardioverted in the emergency room. Patient was discharged home with a LifeVest at that time. Tevin fontana states yesterday she was walking around her house and she checked her heart rate which she occasionally does and found tube have a heart rate in the 80s. She states she was having some difficulties with her life vest and was getting the cords tangled. She states she began to feel a little dizzy and lightheaded. She reports the lifevest then released gel and she thought this was in error and she did not want to get shocked so she unblocked the device and came to the ER. She denies chest pain or pressure. She denies shortness of breath. Patient was found to be in A. fib with RVR upon admission at Hospital. Patient was started on IV Cardizem. EKG reveals A. fib with RVR Chest xray c ardiomegaly. Correlate for interstitial venous congestion, interstitial lung disease or pneumonitis. Most recent echocardiogram obtained in July 2019 revealed ejection fraction 20- 25%, severe global hypokinesis, moderate to severe mitral regurgitation, and moderate tricuspid regurgitation Cardiac catheterization history: Patient underwent cardiac catheterization in April 2019 at [facility] revealing normal coronary arteries. 09/03: LifeVest interrogation reviewed with Dr. Mckenna reveals ventricular tachycardia versus afib with RVR. 09/04/2020 Patient examined this morning at the bedside. Patient denies chest pain or pressure. She denies shortness of breath. She denies dizziness or lightheadedness. She denies palpitations. Patient remains in atrial fibrillation with uncontrolled ventricular rate. Currently in the 120s. Patient does report anxiety due to current health conditions. Patient currently maintained on Eliquis 5 mg twice a day, Lasix 60 mg twice a day, lisinopril 2.5 mg daily, metoprolol sustained 100 mg twice a day, spironolactone 12.5 mg daily. PHYSICAL EXAM: VITAL SIGNS: Reviewed. GENERAL: Well-developed in no acute distress. HEENT: Head is normocephalic. Pupils are equal, round. Sclerae anicteric. Mucous membranes of the mouth are moist. Neck supple. No JVD or thyromegaly LUNGS: Respirations even and unlabored. Lungs essentially clear to auscultation bilaterally. HEART: Tachycardic. Irregular rate and rhythm. S1 and S2 heard. Systolic murmur noted. ABDOMEN: Soft. Nondistended. Nontender. EXTREMITIES: Normal range of motion. No clubbing or cyanosis. Peripheral pulses intact. Trace bilateral lower extremity edema NEUROLOGIC: Awake and alert. Oriented x 3. ASSESSMENT: Possible near discharge of external defibrillator, patient unplugged device Ventricular tachycardia versus afib with RVR Chronic persistent atrial fibrillation with RVR Nonischemic cardiomyopathy Hypertension Hyperlipidemia Diabetes mellitus Chronic systolic heart failure, currently euvolemic History of wide complex tachycardia requiring cardioversion, July 2020 Acute kidney injury PLAN: Limited echo completed will await results Increase metoprolol succinate to 150mg BID Continue lisinopril, spironolactone an lasix Monitor electrolytes Continue telemetry monitoring Patient states she does not want to wear her life vest anymore when she is discharged from the hospital. Device Rep, Sharron notified over the weekend. Patient will require AICD implantation. We will discuss with Dr. Pete about implantation Nurse practitioner note has been reviewed by physician. Signing provider agrees with the documented findings, assessment, and plan of care. Objective - Vital Signs Vital signs: Vital Signs Temp 98.4 F 09/04/20 08:00 Pulse 68 09/04/20 08:54 Resp 16 09/04/20 08:54 BP 127/71 09/04/20 08:00 Pulse Ox 93 L 09/04/20 08:40 Intake & Output 09/03/20 09/04/20 09/04/20 18:59 06:59 18:59 Intake Total 1670 Output Total 200 200 Balance 1670 -200 -200 Weight 107 kg Intake: Oral 1670 Output: Urine 200 200 Other: Voiding Method Toilet Toilet # Voids 2 1 1 - Labs CBC & Chem 7: 09/03/20 08:13 09/04/20 07:16 Labs: Abnormal Lab Results - Last 24 Hours (Table) 09/03/20 09/03/20 09/04/20 Range/Units 17:04 20:52 06:29 Sodium (137-145) mmol/L Chloride (98-107) mmol/L Carbon Dioxide (22-30) mmol/L BUN (7-17) mg/dL Creatinine (0.52-1.04) mg/dL Glucose (74-99) mg/dL POC Glucose (mg/dL) 239 H 319 H 158 H (75-99) mg/dL 09/04/20 09/04/20 Range/Units 07:16 11:54 Sodium 136 L (137-145) mmol/L Chloride 97 L (98-107) mmol/L Carbon Dioxide 34 H (22-30) mmol/L BUN 36 H (7-17) mg/dL Creatinine 1.56 H (0.52-1.04) mg/dL Glucose 139 H (74-99) mg/dL POC Glucose (mg/dL) 234 H (75-99) mg/dL
[2020-09-04] MEDS ORDERED: DOCUSATE 100 MG CAP PO STA (14:00)
[2020-09-04] MEDS ORDERED: FAMOTIDINE 20 MG TAB PO PRN (14:48)
[2020-09-04 16:33] LABS: Glucose,Whole Blood 217 mg/dL (75-99)
[2020-09-04 19:40] LABS: Glucose,Whole Blood 322 mg/dL (75-99)
[2020-09-04] MEDS: METOPROLOL SUCCINATE (ER) 50 MG TAB.ER.24H PO SCH (20:23)
[2020-09-04] MEDS: INSULIN DETEMIR (LEVEMIR) 100 UNIT/ML SYR SQ SCH (20:24)
[2020-09-04] MEDS ORDERED: DOCUSATE 100 MG CAP PO SCH (21:00)
[2020-09-04] MEDS ORDERED: MAGNESIUM HYDROXIDE 2,400 MG/10 ML CUP PO PRN (22:00)
[2020-09-04] MEDS: ALPRAZolam 0.25 MG TAB PO PRN (23:41)
[2020-09-05 06:04] LABS: Glucose,Whole Blood 115 mg/dL (75-99)
[2020-09-05] MEDS: INSULIN ASPART (NovoLOG) 100 UNIT/ML VIAL SQ SCH ×4 (06:09→20:08)
[2020-09-05 07:18] LABS: HCT 34.3 % (34.0-46.0); HGB 11.2 gm/dL (11.4-16.0); Hypochromasia Slight; MCH 29.5 pg (25.0-35.0); MCHC 32.6 g/dL (31.0-37.0); MCV 90.4 fL (80.0-100.0); Mean Platelet Volume 7.7; Platelet Count 242 k/uL (150-450); RBC 3.79 m/uL (3.80-5.40); RDW 15.1 % (11.5-15.5); WBC 9.5 k/uL (3.8-10.6)
[2020-09-05] MEDS: IPRATROPIUM 0.5 MG/2.5 ML NEBU INHALATION SCH ×4 (07:20→19:52)
--- NOTE | 2020-09-05 07:28 | ECHOF ---
Referral Reason:LV function MEASUREMENTS -------- HEIGHT: 157.5 cm WEIGHT: 108.9 kg BP: TR Vmax: 2.36 m/s TR maxP.27 mmHg FINDINGS -------- Echo Done 08/14/20: Limited Study for LV Function. Overall left ventricular systolic function is severely impaired with, an EF between 20 - 25 %. CONCLUSIONS -------- 1. Echo Done 08/14/20: Limited Study for LV Function. 2. Overall left ventricular systolic function is severely impaired with, an EF between 20 - 25 %. SEWER HAND: Sugar Burnett RDCS
[2020-09-05 07:45] LABS: Albumin 3.4 g/dL (3.5-5.0); Calcium 9.2 mg/dL (8.4-10.2); Potassium 4.1 mmol/L (3.5-5.1); Total Bilirubin 0.4 mg/dL (0.2-1.3); Total Protein 6.4 g/dL (6.3-8.2)
[2020-09-05] MEDS: CHOLECALCIFEROL 25 MCG (1000 IU) TABLET PO SCH (08:03)
[2020-09-05] MEDS: SPIRONOLACTONE 25 MG TAB PO SCH (08:03)
[2020-09-05] MEDS: FUROSEMIDE 20 MG TAB PO SCH ×2 (08:04→17:50)
[2020-09-05] MEDS: ASCORBIC ACID 500 MG TAB PO SCH (08:04)
[2020-09-05] MEDS: METOPROLOL SUCCINATE (ER) 50 MG TAB.ER.24H PO SCH ×2 (08:04→20:08)
[2020-09-05] MEDS: ALPRAZolam 0.25 MG TAB PO PRN (09:42)
[2020-09-05] MEDS: DOCUSATE 100 MG CAP PO SCH (10:10)
[2020-09-05] MEDS: APIXABAN 5 MG TAB PO SCH ×2 (10:10→20:08)
[2020-09-05 12:00] LABS: Glucose,Whole Blood 192 mg/dL (75-99)
[2020-09-05 13:12] VITALS: BMI 42.8
--- NOTE | 2020-09-05 13:46 | P.PN ---
Subjective Principal diagnosis: A. fib This is a continue present on a 74-year-old white female who has had difficulty with atrial fibrillation over the last 2 months. She is readmitted for this and is doing well otherwise. No fever or chills stated she has history of lower extremity cellulitis. The patient states they are deciding whether she should have AICD. She states she had poor toleration of LifeVest. Objective - Vital Signs Vital signs: Vital Signs Temp 98.7 F 09/05/20 11:48 Pulse 72 09/05/20 11:48 Resp 18 09/05/20 11:48 BP 109/55 09/05/20 11:48 Pulse Ox 96 09/05/20 11:48 Intake & Output 09/04/20 09/05/20 09/05/20 18:59 06:59 18:59 Intake Total 200 Output Total 200 0 Balance -200 0 200 Weight 106.2 kg 106.2 kg Intake: Oral 200 Output: Urine 200 0 Other: Voiding Method Toilet Toilet # Voids 1 - Constitutional General appearance: Present: cooperative, obese - EENT Eyes: Absent: abnormal pupil - Neck Neck: Absent: lymphadenopathy - Respiratory Respiratory: bilateral: diminished - Cardiovascular Rhythm: irregularly irregular Heart sounds: normal: S1, S2 Abnormal Heart Sounds: Absent: S3 Gallop - Gastrointestinal General gastrointestinal: Present: soft. Absent: tenderness - Integumentary Integumentary: Present: cellulitis - Labs CBC & Chem 7: 09/05/20 06:33 09/05/20 06:33 Labs: Abnormal Lab Results - Last 24 Hours (Table) 09/04/20 09/04/20 09/05/20 Range/Units 16:31 19:38 06:03 RBC (3.80-5.40) m/uL Hgb (11.4-16.0) gm/dL Sodium (137-145) mmol/L Chloride (98-107) mmol/L Carbon Dioxide (22-30) mmol/L BUN (7-17) mg/dL Creatinine (0.52-1.04) mg/dL POC Glucose (mg/dL) 217 H 322 H 115 H (75-99) mg/dL Albumin (3.5-5.0) g/dL 09/05/20 09/05/20 09/05/20 Range/Units 06:33 06:33 11:57 RBC 3.79 L (3.80-5.40) m/uL Hgb 11.2 L (11.4-16.0) gm/dL Sodium 135 L (137-145) mmol/L Chloride 96 L (98-107) mmol/L Carbon Dioxide 32 H (22-30) mmol/L BUN 45 H (7-17) mg/dL Creatinine 1.61 H (0.52-1.04) mg/dL POC Glucose (mg/dL) 192 H (75-99) mg/dL Albumin 3.4 L (3.5-5.0) g/dL Assessment and Plan (1) Atrial fibrillation with RVR Current Visit: Yes Status: Acute Code(s): I48.91 - UNSPECIFIED ATRIAL FIBRILLATION SNOMED Code(s): 263952969792345 (2) Diabetes with skin ulcer Current Visit: No Status: Acute Code(s): E11.622 - TYPE 2 DIABETES MELLITUS WITH OTHER SKIN ULCER; L98.499 - NON-PRESSURE CHRONIC ULCER OF SKIN OF SITES W UNSP SEVERITY SNOMED Code(s): 54015911 (3) Failure of outpatient treatment Current Visit: No Status: Acute Code(s): Z78.9 - OTHER SPECIFIED HEALTH STATUS SNOMED Code(s): 980523631 Plan: Prognosis is guarded secondary to her poor control of A. fib and chronic ulceration of the lower extremity. Check CBC and CMP in a.m. Await cardiology continued input. Watch blood sugar closely. Constipation is now resolved. Time with Patient: Less than 30
--- NOTE | 2020-09-05 13:46 | P.PN ---
Subjective This is a 74 year old female with a past medical history significant for with nonischemic cardiomyopathy, chronic atrial fibrillation, diabetes mellitus, hypertension, and hyperlipidemia. Patient follows in the office with Dr. Guillen. We have been asked to see the patient in consultation for atrial fibrillation. Patient examined at the bedside. Patient was hospitalized in July 2020. Patient was found to be in wide complex tachycardia and she was cardioverted in the emergency room. Patient was discharged home with a LifeVest at that time. Tevin fontana states yesterday she was walking around her house and she checked her heart rate which she occasionally does and found tube have a heart rate in the 80s. She states she was having some difficulties with her life vest and was getting the cords tangled. She states she began to feel a little dizzy and lightheaded. She reports the lifevest then released gel and she thought this was in error and she did not want to get shocked so she unblocked the device and came to the ER. She denies chest pain or pressure. She denies shortness of breath. Patient was found to be in A. fib with RVR upon admission at Hospital. Patient was started on IV Cardizem. EKG reveals A. fib with RVR Chest xray c ardiomegaly. Correlate for interstitial venous congestion, interstitial lung disease or pneumonitis. Most recent echocardiogram obtained in July 2019 revealed ejection fraction 20- 25%, severe global hypokinesis, moderate to severe mitral regurgitation, and moderate tricuspid regurgitation Cardiac catheterization history: Patient underwent cardiac catheterization in April [address] [facility] revealing normal coronary arteries. 09/03: LifeVest interrogation reviewed with Dr. Mckenna reveals ventricular tachycardia versus afib with RVR. 09/05/2020 Patient examined this morning at the bedside. Patient denies chest pain or pressure. She denies shortness of breath. She denies dizziness or lightheadedness. She denies palpitations. Patient remains in atrial fibrillation with better controlled ventricular rates 90-105. Patient currently maintained on Eliquis 5 mg twice a day, Lasix 60 mg twice a day, lisinopril 2.5 mg daily, metoprolol sustained 150 mg twice a day, spironolactone 12.5 mg daily. Laboratory data reviewed WBC 9.5, hemoglobin 0.2, platelets 242, sodium 135, B UN 45, serum creatinine 1.6. Limited echo revealed EF still severely impaired 20-25%. PHYSICAL EXAM: VITAL SIGNS: Reviewed. GENERAL: Well-developed in no acute distress. HEENT: Head is normocephalic. Pupils are equal, round. Sclerae anicteric. Mucous membranes of the mouth are moist. Neck supple. No JVD or thyromegaly LUNGS: Respirations even and unlabored. Lungs essentially clear to auscultation bilaterally. HEART: Tachycardic. Irregular rate and rhythm. S1 and S2 heard. Systolic murmur noted. ABDOMEN: Soft. Nondistended. Nontender. EXTREMITIES: Normal range of motion. No clubbing or cyanosis. Peripheral pulses intact. Trace bilateral lower extremity edema NEUROLOGIC: Awake and alert. Oriented x 3. ASSESSMENT: Possible near discharge of external defibrillator, patient unplugged device Ventricular tachycardia versus afib with RVR Chronic persistent atrial fibrillation with RVR Nonischemic cardiomyopathy Hypertension Hyperlipidemia Diabetes mellitus Chronic systolic heart failure, currently euvolemic History of wide complex tachycardia requiring cardioversion, July 2020 Acute kidney injury PLAN: Continue metoprolol succinate to 150mg BID Continue lisinopril, spironolactone an lasix Monitor renal function and electrolytes Continue telemetry monitoring Patient states she does not want to wear her life vest anymore when she is discharged from the hospital. Device Rep, Sharron notified over the weekend. Patient will require AICD implantation. We will discuss with Dr. Pete about implantation. Plan for Dr. Pete to evaluate the patient today. Nurse practitioner note has been reviewed by physician. Signing provider agrees with the documented findings, assessment, and plan of care. Objective - Vital Signs Vital signs: Vital Signs Temp 98.7 F 09/05/20 11:48 Pulse 72 09/05/20 11:48 Resp 18 09/05/20 11:48 BP 109/55 09/05/20 11:48 Pulse Ox 96 09/05/20 11:48 Intake & Output 09/04/20 09/05/20 09/05/20 18:59 06:59 18:59 Intake Total 200 Output Total 200 0 Balance -200 0 200 Weight 106.2 kg 106.2 kg Intake: Oral 200 Output: Urine 200 0 Other: Voiding Method Toilet Toilet # Voids 1 - Labs CBC & Chem 7: 09/05/20 06:33 09/05/20 06:33 Labs: Abnormal Lab Results - Last 24 Hours (Table) 09/04/20 09/04/20 09/05/20 Range/Units 16:31 19:38 06:03 RBC (3.80-5.40) m/uL Hgb (11.4-16.0) gm/dL Sodium (137-145) mmol/L Chloride (98-107) mmol/L Carbon Dioxide (22-30) mmol/L BUN (7-17) mg/dL Creatinine (0.52-1.04) mg/dL POC Glucose (mg/dL) 217 H 322 H 115 H (75-99) mg/dL Albumin (3.5-5.0) g/dL 09/05/20 09/05/20 09/05/20 Range/Units 06:33 06:33 11:57 RBC 3.79 L (3.80-5.40) m/uL Hgb 11.2 L (11.4-16.0) gm/dL Sodium 135 L (137-145) mmol/L Chloride 96 L (98-107) mmol/L Carbon Dioxide 32 H (22-30) mmol/L BUN 45 H (7-17) mg/dL Creatinine 1.61 H (0.52-1.04) mg/dL POC Glucose (mg/dL) 192 H (75-99) mg/dL Albumin 3.4 L (3.5-5.0) g/dL
[2020-09-05 16:51] LABS: Glucose,Whole Blood 288 mg/dL (75-99)
[2020-09-05] MEDS ORDERED: VANCOMYCIN IV PER PHARMACY 1 EACH MISC MISCELLANE PRN (17:21)
[2020-09-05] MEDS ORDERED: VANCOMYCIN 1,750 MG in SODIUM CHLORIDE 0.9% 500 ML 500 ML IVPB ONE (17:30)
--- NOTE | 2020-09-05 18:18 | P.EPCON ---
Electrophysiology Consult - EP Consult Electrophysiology Consult: This is Dr. Pete dictating an electrophysiology consult on this patient The patient was interviewed and examined IMPRESSION / ASSESSMENT: Severe nonischemic cardio myopathy, normal coronary arteries No improvement in LV function since July A. fib with RVR spite metoprolol succinate 100 mg by mouth daily, currently on 150 mg twice of metoprolol succinate and tolerating this well Type 2 diabetes hemoglobin A1c 7.6 Obesity Chronic kidney disease GFR 31 Chronic bilateral nonhealing ulcers with some improvement since July Indurated infected area in the pubic region. I was able to express pus out of this Atrial fibrillation inducing a fast wide complex tachycardia which could represent either VT or 1-1 A. tach conduction On paper she clearly is a candidate for an ICD however she has 2 major risk factors. The first is ICD infection secondary to leg ulcers. I seriously doubt if these ulcers will ever heal completely I anticipate that these lower extremity wounds will continue to faster and breakdown from time to time serving as a portal of entry for infection The second source is the indurated lesion in the pubic region for which I was able to express pus She is a type II diabetic with a hemoglobin A1c of 7.6 as well as chronic kidney disease Her second risk for an ICD is A. fib with RVR resulting in an inappropriate ICD shock since she has an organized atrial fibrillation and I anticipate that rate control will be quite difficult despite high-dose metoprolol I anticipate that even if at rest heart rates are adequately controlled, her heart rates will increase significantly with exertion The patient does not want to wear the LifeVest anymore and it will not work for. Besides making her anxious she is just unable to deal with and wear it. PLAN: At this point I would not recommend proceeding with an ICD implant She has an active infection in the pubic region and I spoke to Dr. Hines, general surgery to evaluate her He will do so tomorrow on Friday I have asked pharmacy to start IV vancomycin but she will definitely need gram- negative coverage too An ID consult would be beneficial too Once the infected indurated region in the pubic area is addressed and ICD may be considered but the above-mentioned risks will still remain namely ICD infection resulting in systemic infection as well as inappropriate ICD shocks Addressing her atrial fibrillation is important otherwise her ventricular function will never improve I would not advise an AV node ablation ever in this patient given her perpetual infection risk In the month of July I avoided amiodarone because she was 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 fib ablation but is very likely that she may need multiple A. fib ablations and given her overall risk and severely reduced LV systolic function, she is at high risk for periprocedural complications under general anesthesia. In addition she has a severely dilated left atrium I will start her on amiodarone 100 mg by mouth daily instead and perhaps attempt an elective cardioversion after 6 weeks, no sooner Check TSH HPI Patient presented with a rapid heartbeat and she quickly removed the Lif[place] battery to avoid getting a shock This time she did not have syncope Review of the life vest strips shows A. fib with RVR at 2 with the end of irregular wide complex rhythm is noted Twelve-lead EKG shows organized atrial fibrillation/atrial tachycardia with an irregular rapid ventricular response She is currently on metoprolol succinate 150 mrem twice daily and she seems to be tolerating this quite well From a pulmonary standpoint she seems a lot better and what she appeared in the month of July 2020 She is still has a fight of lying flat in bed and she states she is unable to do so ROS: No fever chills or rigors, no cough, phlegm or expectoration, no nausea, vomiting or diarrhea, no hematuria, dysuria, no musculoskeletal complaints, no strokes or seizures, no skin lesions. EXAMINATION: Reduced breath sounds bilaterally but no rhonchi no crackles No JVD Patient is sitting comfortably in bed Heart sounds are irregular no murmurs Abdomen is soft I examined her lower extremities The ulcerated area in the right leg has healed since July but is still an open wound The patient also pointed out that she has a bleeding an infected area above the groin On examination she has an indurated area in the pubic region on the right side and I was able to express pus A culture was sent that this may be contaminated REVIEW OF LABS, ECG & MEDICAL DATA Hemoglobin A1c 7.6 White count 9.5, hemoglobin 11.2, platelet count 243,000 Sodium 135, potassium 4.1, BUN 45 and creatinine 1.6, GFR 31 2-D echo and Doppler study shows severe LV dysfunction Left atrium is enlarged Chest x-ray was reviewed and she continues to have interstitial changes
[2020-09-05 19:43] LABS: Glucose,Whole Blood 314 mg/dL (75-99)
[2020-09-05] MEDS: AMIODARONE 100 MG TAB PO SCH (20:08)
[2020-09-05] MEDS: INSULIN DETEMIR (LEVEMIR) 100 UNIT/ML SYR SQ SCH (21:11)
[2020-09-06] MEDS: traMADol 50 MG TAB PO PRN ×2 (03:01→20:36)
[2020-09-06 06:08] LABS: Glucose,Whole Blood 105 mg/dL (75-99)
[2020-09-06] MEDS: INSULIN ASPART (NovoLOG) 100 UNIT/ML VIAL SQ SCH ×4 (06:19→20:37)
[2020-09-06] MEDS: IPRATROPIUM 0.5 MG/2.5 ML NEBU INHALATION SCH ×4 (07:42→20:46)
[2020-09-06] MEDS: SPIRONOLACTONE 25 MG TAB PO SCH (08:28)
[2020-09-06] MEDS: APIXABAN 5 MG TAB PO SCH (08:28)
[2020-09-06] MEDS: AMIODARONE 100 MG TAB PO SCH (08:28)
[2020-09-06] MEDS: FUROSEMIDE 20 MG TAB PO SCH ×2 (08:28→18:14)
[2020-09-06] MEDS: DOCUSATE 100 MG CAP PO SCH (08:29)
[2020-09-06] MEDS: CHOLECALCIFEROL 25 MCG (1000 IU) TABLET PO SCH (08:29)
[2020-09-06] MEDS: ASCORBIC ACID 500 MG TAB PO SCH (08:29)
[2020-09-06] MEDS: METOPROLOL SUCCINATE (ER) 50 MG TAB.ER.24H PO SCH ×2 (08:29→20:36)
[2020-09-06] MEDS: ALPRAZolam 0.25 MG TAB PO PRN (08:37)
[2020-09-06 11:47] LABS: Glucose,Whole Blood 186 mg/dL (75-99)
[2020-09-06] MEDS ORDERED: VANCOMYCIN 1,750 MG in SODIUM CHLORIDE 0.9% 500 ML 500 ML IVPB ONE (12:00)
--- NOTE | 2020-09-06 13:04 | P.PN ---
Subjective This is a 74 year old female with a past medical history significant for with nonischemic cardiomyopathy, chronic atrial fibrillation, diabetes mellitus, hypertension, and hyperlipidemia. Patient follows in the office with Dr. Guillen. We have been asked to see the patient in consultation for atrial fibrillation. Patient examined at the bedside. Patient was hospitalized in July 2020. Patient was found to be in wide complex tachycardia and she was cardioverted in the emergency room. Patient was discharged home with a LifeVest at that time. Tevin fontana states yesterday she was walking around her house and she checked her heart rate which she occasionally does and found tube have a heart rate in the 80s. She states she was having some difficulties with her life vest and was getting the cords tangled. She states she began to feel a little dizzy and lightheaded. She reports the lifevest then released gel and she thought this was in error and she did not want to get shocked so she unblocked the device and came to the ER. She denies chest pain or pressure. She denies shortness of breath. Patient was found to be in A. fib with RVR upon admission at Hospital. Patient was started on IV Cardizem. EKG reveals A. fib with RVR Chest xray c ardiomegaly. Correlate for interstitial venous congestion, interstitial lung disease or pneumonitis. Most recent echocardiogram obtained in July 2019 revealed ejection fraction 20- 25%, severe global hypokinesis, moderate to severe mitral regurgitation, and moderate tricuspid regurgitation Cardiac catheterization history: Patient underwent cardiac catheterization in April 2019 at [facility] revealing normal coronary arteries. 09/03: LifeVest interrogation reveals wide complex tachycardia which could represent either VT or 1-1 A. tach conduction Limited echo revealed EF still severely impaired 20-25%. 09/06/2020 Patient examined this morning at the bedside. Patient denies chest pain or pressure. She denies shortness of breath. She denies dizziness or lightheadedness. She denies palpitations. Patient remains in atrial fibrillation with better controlled ventricular rates 90s-105. Patient currently maintained on amiodarone 100mg daily, Eliquis 5 mg twice a day, Lasix 60 mg twice a day, lisinopril 2.5 mg daily, metoprolol sustained 150 mg twice a day, spironolactone 12.5 mg daily. Patient started on IV vancomycin. Laboratory data reviewed creatinine 1.52. PHYSICAL EXAM: VITAL SIGNS: Reviewed. GENERAL: Well-developed in no acute distress. HEENT: Head is normocephalic. Pupils are equal, round. Sclerae anicteric. Mucous membranes of the mouth are moist. Neck supple. No JVD or thyromegaly LUNGS: Respirations even and unlabored. Lungs essentially clear to auscultation bilaterally. HEART: Irregular rate and rhythm. S1 and S2 heard. Systolic murmur noted. ABDOMEN: Soft. Nondistended. Nontender. EXTREMITIES: Normal range of motion. No clubbing or cyanosis. Peripheral pulses intact. Trace bilateral lower extremity edema. right venous statis ulcer SKIN: Indurated lesion in the right pubic region with serosanguenous discharge NEUROLOGIC: Awake and alert. Oriented x 3. ASSESSMENT: Possible near discharge of external defibrillator, patient unplugged device Ventricular tachycardia versus afib with RVR Chronic persistent atrial fibrillation with RVR Nonischemic cardiomyopathy EF20-25% Hypertension Hyperlipidemia Type 2 Diabetes mellitus Chronic systolic heart failure, currently euvolemic History of wide complex tachycardia requiring cardioversion, July 2020 Acute kidney injury PLAN: Dr. Pete evaluated the patient, at this point he does not recommend proceeding with ICD implant. Due to active infection in pubic region. Once the infected indurated region in the pubic area is addressed and ICD may be considered. For her atrial fibrillation we will continue to control her ventricular rates. Amiodarone 100mg daily added 09/05 Continue amiodarone 100mg daily and metoprolol succinate to 150mg BID Continue lisinopril, spironolactone and lasix Continue telemetry monitoring General surgery consulted Infectious disease consulted Patient states she does not want to wear her life vest anymore when she is discharged from the hospital. We explained the benefits and risk of not wearing her life vest. Patient understands the risk of possible sudden cardiac if not wearing the life vest. From cardiology perspective, patient is stable. Awaiting further recommendations from surgery and infectious disease regarding patient's infection Patient to follow up with Dr. Guillen on discharge Nurse practitioner note has been reviewed by physician. Signing provider agrees with the documented findings, assessment, and plan of care. Objective - Vital Signs Vital signs: Vital Signs Temp 98.1 F 09/06/20 08:00 Pulse 100 09/06/20 11:58 Resp 16 09/06/20 08:00 BP 101/69 09/06/20 08:00 Pulse Ox 97 09/06/20 08:00 Intake & Output 09/05/20 09/06/20 09/06/20 18:59 06:59 18:59 Intake Total 540 Balance 540 Weight 106.2 kg 108.4 kg Intake: Oral 540 Other: Voiding Method Toilet Toilet # Voids 1 2 - Labs CBC & Chem 7: 09/05/20 06:33 09/06/20 07:10 Labs: Abnormal Lab Results - Last 24 Hours (Table) 09/05/20 09/05/20 09/06/20 Range/Units 16:50 19:41 06:07 Creatinine (0.52-1.04) mg/dL POC Glucose (mg/dL) 288 H 314 H 105 H (75-99) mg/dL 09/06/20 09/06/20 Range/Units 07:10 11:44 Creatinine 1.52 H (0.52-1.04) mg/dL POC Glucose (mg/dL) 186 H (75-99) mg/dL Microbiology - Last 24 Hours (Table) 09/05/20 17:37 Gram Stain - Preliminary Cyst Wound Culture - Preliminary
--- NOTE | 2020-09-06 13:26 | P.GSCN ---
History of Present Illness Consult date: 09/06/20 History of present illness: 74-year-old female with multiple cardiac comorbidities including coronary artery disease, cardiomyopathy with ejection fraction from 20 to 25% with moderate and severe Mitral regurgitation, chronic atrial fibrillation and history of sustained ventricular tachycardia status post cardioversion and LifeVest placement. Patient is admitted secondary to finding of wide-complex rhythm. She is being followed by cardiology. Case was discussed with Dr. Pete, And plan is for eventual loop recorder placement with groin access. On exam, marcial avalos was found to have a recurring cyst in the right groin with some mild purulent drainage. Patient states that this comes and goes almost monthly. She denies taking any recent antibiotics.. Review of Systems All systems: negative Past Medical History Past Medical History: Atrial Fibrillation, Coronary Artery Disease (CAD), CVA/TIA, Diabetes Mellitus, Deep Vein Thrombosis (DVT), Hyperlipidemia, Hypertension, Myocardial Infarction (CT) Additional Past Medical History / Comment(s): tia, lt eye macular , COVID 19 in 05/2020, RLE wound stage 3 Last Myocardial Infarction Date:: unk History of Any Multi-Drug Resistant Organisms: None Reported Past Surgical History: Adenoidectomy, Hysterectomy, Orthopedic Surgery, To nsillectomy, Tubal Ligation Additional Past Surgical History / Comment(s): pilonidal cyst twice as child, rt knee arthroscopy, krystyna cataracts,krystyna great toe sx, Additional Past Anesthesia/Blood Transfusion Reaction / Comm: difficulty waking up after sx. clausterphobia. 1960 blood transfusion(during child ) pt stated had palpitations after 2nd unit given Past Psychological History: No Psychological Hx Reported Smoking Status: Never smoker Past Alcohol Use History: None Reported Past Drug Use History: None Reported - Past Family History Mother Family Medical History: Cancer Additional Family Medical History / Comment(s): lung cancer Father Family Medical History: Coronary Artery Disease (CAD) Additional Family Medical History / Comment(s): heart disease, kidney disese Medications and Allergies Home Medications Medication Instructions Recorded Confirmed Type Potassium 297 mg PO W/SUPPER 03/31/18 09/01/20 History metFORMIN HCL ER [Glucophage Xr] 500 mg PO DAILY 03/31/18 09/01/20 History Cholecalciferol [Vitamin D3 (25 2,000 unit PO DAILY 04/01/18 09/01/20 History Mcg = 1000 Iu)] Potassium 99 mg PO QAM 04/01/18 09/01/20 History Timolol 0.5% Ophth Soln [Timoptic 1 drop BOTH EYES BID 04/01/18 09/01/20 History 0.5% Ophth Soln] Apixaban [Eliquis] 5 mg PO BID 08/13/20 09/01/20 History Ascorbic Acid [Vitamin C] 1,000 mg PO DAILY 08/13/20 09/01/20 History Famotidine 40 mg PO DAILY PRN 08/13/20 09/01/20 History Insulin Glargine,Hum.rec.anlog See Protocol SQ DAILY 08/13/20 09/01/20 History [Toujeo Max Solostar] Ipratropium [place] [Atrovent Hfa] 2 puff INHALATION RT-QID 08/13/20 09/01/20 History Spironolactone [Aldactone] 12.5 mg PO DAILY 08/13/20 09/01/20 History traMADol HCL 50 mg PO Q6H PRN 08/13/20 09/01/20 History Furosemide [Lasix] 60 mg PO BID@0900,1600 #180 tab 08/22/20 09/01/20 Rx Metoprolol Succinate (ER) [Toprol 100 mg PO DAILY #30 tab.er.24h 08/22/20 09/01/20 Rx XL] lisinopriL [Zestril] 2.5 mg PO DAILY #30 tab 08/22/20 09/01/20 Rx Insulin Glargine,Hum.rec.anlog 40 - 60 units SQ HS 09/01/20 09/01/20 History [Toujeo Max Solostar] Ipratropium Nebulized [Atrovent 0.5 mg INHALATION Q6HR 09/02/20 09/02/20 History Nebulized 0.2 MG/ML] Allergies Allergy/AdvReac Type Severity Reaction Status Date / Time adhesive Allergy Unknown Verified 09/01/20 16:18 aluminum Allergy Unknown Verified 09/01/20 16:18 Antihistamines - Allergy Unknown Verified 09/01/20 16:18 Ethylenediamine codeine Allergy Unknown Verified 09/01/20 16:18 epinephrine Allergy Unknown Verified 09/01/20 16:18 hydrogen peroxide Allergy Unknown Verified 09/01/20 16:18 latex Allergy Unknown Verified 09/01/20 16:18 lidocaine Allergy Unknown Verified 09/01/20 16:18 nickel Allergy Unknown Verified 09/01/20 16:18 petrolatum,white Allergy Unknown Verified 09/01/20 16:18 [From Petroleum Jelly] procaine HCl [From Novocain] Allergy Unknown Verified 09/01/20 16:18 shellfish derived [Shellfish] Allergy Unknown Verified 09/01/20 16:18 thiopental sodium Allergy Unknown Verified 09/01/20 16:18 [From Pentothal] egg yolk AdvReac Diarrhea Verified 09/01/20 16:18 Surgical - Exam Osteopathic Statement: *. No significant issues noted on an osteopathic structural exam other than those noted in the History and Physical/Consult. Vital Signs Temp Pulse Resp BP Pulse Ox 98.4 F 129 H 18 121/71 98 09/01/20 14:59 09/01/20 14:59 09/01/20 14:59 09/01/20 14:59 09/01/20 14:59 - General well nourished, no distress - Neck trachea midline - Respiratory normal respiratory effort - Genitourinary Right groin with cystlike lesion with some active drainage, mild purulence and serosanguineous drainage at this time, no induration or palpable fluctuance Results - Labs 09/05/20 06:33 09/06/20 07:10 Abnormal Lab Results - Last 24 Hours (Table) 09/05/20 09/05/20 09/06/20 Range/Units 16:50 19:41 06:07 Creatinine (0.52-1.04) mg/dL POC Glucose (mg/dL) 288 H 314 H 105 H (75-99) mg/dL 09/06/20 09/06/20 Range/Units 07:10 11:44 Creatinine 1.52 H (0.52-1.04) mg/dL POC Glucose (mg/dL) 186 H (75-99) mg/dL Microbiology - Last 24 Hours (Table) 09/05/20 17:37 Gram Stain - Preliminary Cyst Wound Culture - Preliminary Diabetes panel 09/06/20 Range/Units 07:10 Creatinine 1.52 H (0.52-1.04) mg/dL Pituitary panel 09/06/20 Range/Units 07:10 Creatinine 1.52 H (0.52-1.04) mg/dL Adrenal panel 09/06/20 Range/Units 07:10 Creatinine 1.52 H (0.52-1.04) mg/dL Assessment and Plan Plan: 74-year-old female with cystlike lesion in the right groin. After discussion with cardiology, plan is for groin access for likely placement of loop recorder in the near future. There is concern for infection with this lesion in its current position. Patient also has many social issues that would make it difficult for outpatient follow-up for removal of this infected cyst. Plan will be for holding anticoagulation while the patient is inpatient and removal of the cyst on 09/08/2020 at bedside. Case was discussed with nursing staff and cardiology. Plan for procedure as discussed above.
[2020-09-06 16:54] LABS: Glucose,Whole Blood 185 mg/dL (75-99)
[2020-09-06 17:17] LABS: Hemoglobin A1C 7.6 % (4.0-6.0)
[2020-09-06 20:04] LABS: Glucose,Whole Blood 273 mg/dL (75-99)
[2020-09-06] MEDS: INSULIN DETEMIR (LEVEMIR) 100 UNIT/ML SYR SQ SCH (20:37)
--- NOTE | 2020-09-06 22:25 | P.PN ---
Subjective Principal diagnosis: A. fib This is a continue present on a 74-year-old white female who has had difficulty with atrial fibrillation over the last 2 months. She is readmitted for this and is doing well otherwise. No fever or chills stated she has history of lower extremity cellulitis. The patient states cardiology is debating whether to EPS study. However, she has a right groin wound which obviates more work to do the procedure properly. Surgery has not been counseled for removal of mass. She will require LifeVest temporarily per for EPS study is done. Objective - Vital Signs Vital signs: Vital Signs Temp 98.7 F 09/06/20 20:00 Pulse 85 09/06/20 20:56 Resp 18 09/06/20 20:56 BP 106/67 09/06/20 20:00 Pulse Ox 98 09/06/20 20:48 Intake & Output 09/06/20 09/06/20 09/07/20 06:59 18:59 06:59 Intake Total 480 10 Balance 480 10 Weight 108.4 kg Intake: IV 10 Invasive Line 2 10 Oral 480 Other: Voiding Method Toilet Toilet Toilet # Voids 2 1 - Constitutional General appearance: Present: obese - Respiratory Respiratory: bilateral: CTA - Cardiovascular Rhythm: irregularly irregular Heart sounds: normal: S1, S2 Abnormal Heart Sounds: Absent: S3 Gallop - Gastrointestinal General gastrointestinal: Present: soft. Absent: tenderness - Musculoskeletal Musculoskeletal: Present: generalized weakness - Psychiatric Psychiatric: Present: A&O x's 3, appropriate affect - Labs CBC & Chem 7: 09/05/20 06:33 09/06/20 07:10 Labs: Abnormal Lab Results - Last 24 Hours (Table) 09/06/20 09/06/20 09/06/20 Range/Units 06:07 07:10 07:10 Creatinine 1.52 H (0.52-1.04) mg/dL POC Glucose (mg/dL) 105 H (75-99) mg/dL Hemoglobin A1c 7.6 H (4.0-6.0) % 09/06/20 09/06/20 09/06/20 Range/Units 11:44 16:53 20:02 Creatinine (0.52-1.04) mg/dL POC Glucose (mg/dL) 186 H 185 H 273 H (75-99) mg/dL Hemoglobin A1c (4.0-6.0) % Microbiology - Last 24 Hours (Table) 09/05/20 17:37 Gram Stain - Preliminary Cyst Wound Culture - Preliminary Padmini albicans Group D Enterococcus Assessment and Plan (1) Atrial fibrillation with RVR Current Visit: Yes Status: Acute Code(s): I48.91 - UNSPECIFIED ATRIAL FIBRILLATION SNOMED Code(s): 112694349827658 (2) Diabetes with skin ulcer Current Visit: No Status: Acute Code(s): E11.622 - TYPE 2 DIABETES MELLITUS WITH OTHER SKIN ULCER; L98.499 - NON-PRESSURE CHRONIC ULCER OF SKIN OF SITES W UNSP SEVERITY SNOMED Code(s): 98489067 (3) Failure of outpatient treatment Current Visit: No Status: Acute Code(s): Z78.9 - OTHER SPECIFIED HEALTH STATUS SNOMED Code(s): 390411149 Plan: Prognosis is guarded secondary to her poor control of A. fib and chronic ulceration of the lower extremity. Check CBC and CMP in a.m. due to groin wound, surgery has been consulted for appropriate excision. Watch blood sugar closely. Constipation is now resolved. Had a long discussion with the patient regarding LifeVest usage. Time with Patient: Less than 30
[2020-09-06] MEDS ORDERED: ANIDULAFUNGIN 200 MG in SODIUM CHLORIDE 0.9% 200 ML IVPB ONE (22:55)
[2020-09-07 06:01] LABS: Glucose,Whole Blood 128 mg/dL (75-99)
[2020-09-07] MEDS: ALPRAZolam 0.25 MG TAB PO PRN (06:24)
[2020-09-07] MEDS: INSULIN ASPART (NovoLOG) 100 UNIT/ML VIAL SQ SCH ×4 (06:33→21:01)
--- NOTE | 2020-09-07 06:53 | CONS ---
CONSULTATION DATE OF SERVICE: 09/06/2020 REASON FOR CONSULTATION: Right groin infected cyst. HISTORY OF PRESENT ILLNESS: The patient is a 74-year-old female with past medical history of coronary artery disease, cardiomyopathy with low EF, chronic atrial fibrillation with recent admission to the hospital with acute hypoxic respiratory failure and evidence of sustained ventricular tachycardia status post cardioversion and LifeVest placement. The patient has been brought back to the hospital with apparent concern for swelling of her right groin. The patient has been admitted EMS was called in. On arrival of the EMS, the patient was noted to have wide-complex rhythm with heart rate in the 100s. The patient subsequently has been considered for a defibrillator placement. On examination of the right groin, she was noticed to have an infected cyst with some purulent drainage. Cultures were obtained from the same. The patient has been started on vancomycin. Infectious Disease was consulted for further management. The patient did mention that she did have a recurrent drainage from this area which is mostly bloody and at times purulent. The patient does have occasional dull aching pain to the area which usually relieves with drainage. Intensity 3-4/10 with no radiation. The patient currently denies having any fever or chills. No nausea, no vomiting. No abdominal pain or any diarrhea. REVIEW OF SYSTEMS: Positive points have been mentioned in HPI. Rest of systems are negative. PAST MEDICAL HISTORY: Atrial fibrillation, coronary artery disease, CVA, TIA, diabetes mellitus, DVT, hyperlipidemia, hypertension, [place], low EF. PAST SURGICAL HISTORY: Hemorrhoidectomy, hysterectomy, tonsillectomy, tubal ligation. SOCIAL HISTORY: Remote history of smoking. No drinking or drug use. FAMILY HISTORY: Mother with history of lung cancer. Father history of coronary artery disease. ALLERGIES: CODEINE, , HYDROGEN PEROXIDE, LATEX, LIDOCAINE. MEDICATIONS: The patient is currently on Tylenol, Xanax, amiodarone, vitamin C, vitamin D3, Colace, Pepcid, Lasix, NovoLog, Levemir, Zestril, Toprol-XL, vancomycin, Pharmacy to dose, Ultram. PHYSICAL EXAMINATION: VITAL SIGNS: Her blood pressure is 106/67 with a pulse of 84, temperature 98.7. She is 96% on room air. GENERAL DESCRIPTION: The patient is an elderly female up in the chair in no distress. No tachypnea or accessory muscles of respiration use. HEENT: Examination shows slight pallor, no scleral icterus. Oral mucous membrane is dry. NECK: Trachea central, no thyromegaly. LUNGS: Unlabored breathing, decreased breath sounds at the bases. No wheeze. HEART: S1-S2, regular rate and rhythm. ABDOMEN: Soft, no tenderness. No guarding or rigidity. EXTREMITIES: Diffuse swelling to the lower extremities. He did have a wound to the right lateral leg but no cellulitis. The patient does have a small wound in the groin area with no induration, fluctuating, surrounding redness or foul-smelling drainage was noted. NEUROLOGICAL: Patient is awake, alert, oriented times three. Mood and affect normal. LABORATORY STUDIES: Creatinine is 1.52. Hemoglobin is 7.6, BUN 45. Hemoglobin 11.2, white count 9.5. Local culture now showing group D Enterococcus and Padmini albicans. DIAGNOSTIC IMPRESSION: 1. Patient with right groin infected cyst, status post spontaneous drainage. Cultures now showing a group D Enterococcus and Padmini albicans, more of a superficial infection. Clinical suspicion low for underlying deep infection. 2. Patient is on amiodarone that will contraindicate the use of Diflucan. PLAN: 1. Vancomycin, Pharmacy to dose target of 15 while watching her kidney function closely. 2. We will add Eraxis 200 mg times one followed by 100 mg daily. 3. Local wound care to the right lateral leg wound with dry Aquacel Silver dressing and Maninder wrap. 4. We will follow on clinical condition and further adjust medication if needed. Thank you for this consultation. Will follow this patient along with you. MMODL / IJN: [id number] /
[2020-09-07] MEDS: AMIODARONE 100 MG TAB PO SCH (08:32)
[2020-09-07] MEDS: FUROSEMIDE 20 MG TAB PO SCH ×2 (08:32→16:12)
[2020-09-07] MEDS: ASCORBIC ACID 500 MG TAB PO SCH (08:32)
[2020-09-07] MEDS: DOCUSATE 100 MG CAP PO SCH (08:32)
[2020-09-07] MEDS: CHOLECALCIFEROL 25 MCG (1000 IU) TABLET PO SCH (08:33)
[2020-09-07] MEDS: METOPROLOL SUCCINATE (ER) 50 MG TAB.ER.24H PO SCH ×2 (08:33→21:01)
[2020-09-07] MEDS: SPIRONOLACTONE 25 MG TAB PO SCH (08:34)
[2020-09-07] MEDS: IPRATROPIUM 0.5 MG/2.5 ML NEBU INHALATION SCH ×4 (08:37→22:03)
[2020-09-07 11:56] LABS: Glucose,Whole Blood 239 mg/dL (75-99)
--- NOTE | 2020-09-07 13:46 | P.PN ---
Subjective This is a 74 year old female with a past medical history significant for with nonischemic cardiomyopathy, chronic atrial fibrillation, diabetes mellitus, hypertension, and hyperlipidemia. Patient follows in the office with Dr. Guillen. We have been asked to see the patient in consultation for atrial fibrillation. Patient examined at the bedside. Patient was hospitalized in July 2020. Patient was found to be in wide complex tachycardia and she was cardioverted in the emergency room. Patient was discharged home with a LifeVest at that time. Tevin fontana states yesterday she was walking around her house and she checked her heart rate which she occasionally does and found tube have a heart rate in the 80s. She states she was having some difficulties with her life vest and was getting the cords tangled. She states she began to feel a little dizzy and lightheaded. She reports the lifevest then released gel and she thought this was in error and she did not want to get shocked so she unblocked the device and came to the ER. She denies chest pain or pressure. She denies shortness of breath. Patient was found to be in A. fib with RVR upon admission at Hospital. Patient was started on IV Cardizem. EKG reveals A. fib with RVR Chest xray c ardiomegaly. Correlate for interstitial venous congestion, interstitial lung disease or pneumonitis. Most recent echocardiogram obtained in July 2019 revealed ejection fraction 20- 25%, severe global hypokinesis, moderate to severe mitral regurgitation, and moderate tricuspid regurgitation Cardiac catheterization history: Patient underwent cardiac catheterization in April 2019 at [facility] revealing normal coronary arteries. 09/03: LifeVest interrogation reveals wide complex tachycardia which could represent either VT or 1-1 A. tach conduction Limited echo revealed EF still severely impaired 20-25%. 09/07/2020 Patient examined this morning at the bedside, sitting up in bedside chair. Patient denies chest pain or pressure. She denies shortness of breath. She denies dizziness or lightheadedness. She denies palpitations. Patient remains in atrial fibrillation with better controlled ventricular rates 70-90s, occasionally low 100s. Patient currently maintained on amiodarone 100mg daily, Eliquis 5 mg twice a day (on hold today per surgery), Lasix 60 mg twice a day, lisinopril 2.5 mg daily, metoprolol sustained 150 mg twice a day, spironolactone 12.5 mg daily. Patient started on IV vancomycin. Laboratory data reviewed creatinine 1.36 (1.52 yesterday) PHYSICAL EXAM: VITAL SIGNS: Reviewed. GENERAL: Well-developed in no acute distress. HEENT: Head is normocephalic. Pupils are equal, round. Sclerae anicteric. Mucous membranes of the mouth are moist. Neck supple. No JVD or thyromegaly LUNGS: Respirations even and unlabored. Lungs essentially clear to auscultation bilaterally. HEART: Irregular rate and rhythm. S1 and S2 heard. Systolic murmur noted. ABDOMEN: Soft. Nondistended. Nontender. EXTREMITIES: Normal range of motion. No clubbing or cyanosis. Peripheral pulses intact. Trace bilateral lower extremity edema. right venous statis ulcer SKIN: Indurated lesion in the right pubic region with serosanguenous discharge NEUROLOGIC: Awake and alert. Oriented x 3. ASSESSMENT: Possible near discharge of external defibrillator, patient unplugged device Ventricular tachycardia versus afib with RVR Chronic persistent atrial fibrillation with RVR Nonischemic cardiomyopathy EF20-25% Hypertension Hyperlipidemia Type 2 Diabetes mellitus Chronic systolic heart failure, currently euvolemic History of wide complex tachycardia requiring cardioversion, July 2020 Acute kidney injury PLAN: Dr. Pete evaluated the patient, at this point he does not recommend proceeding with ICD implant. Due to active infection in pubic region. Once the infected indurated region in the pubic area is addressed and ICD may be considered. For her atrial fibrillation we will continue to control her ventricular rates. Amiodarone 100mg daily added 09/05 Continue amiodarone 100mg daily and metoprolol succinate to 150mg BID, lisinopril, spironolactone and lasix Continue telemetry monitoring From cardiology perspective, patient is stable. Infectious disease consulted - patient currently recieving IV vancomycin and IV anidulafungin General surgery consulted- plan to remove cystlike pubic lesion tomorrow at bedside on 09/08. Eliquis is on hold at this time. We will restart anticoagulati on once ok per surgery. Patient states she does not want to wear her life vest anymore when she is discharged from the hospital. We explained the benefits and risk of not wearing her life vest. Patient understands the risk of possible sudden cardiac if not wearing the life vest. Patient to follow up with Dr. Guillen on discharge Nurse practitioner note has been reviewed by physician. Signing provider agrees with the documented findings, assessment, and plan of care. Objective - Vital Signs Vital signs: Vital Signs Temp 97.6 F 09/07/20 12:31 Pulse 104 H 09/07/20 12:31 Resp 18 09/07/20 12:31 BP 107/74 09/07/20 12:31 Pulse Ox 96 09/07/20 12:31 Intake & Output 09/06/20 09/07/20 09/07/20 18:59 06:59 18:59 Intake Total 480 10 240 Balance 480 10 240 Weight 108.2 kg Intake: IV 10 Invasive Line 2 10 Oral 480 240 Other: Voiding Method Toilet Toilet Toilet # Voids 1 2 1 - Labs CBC & Chem 7: 09/05/20 06:33 09/07/20 07:49 Labs: Abnormal Lab Results - Last 24 Hours (Table) 09/06/20 09/06/20 09/06/20 Range/Units 07:10 16:53 20:02 Creatinine (0.52-1.04) mg/dL POC Glucose (mg/dL) 185 H 273 H (75-99) mg/dL Hemoglobin A1c 7.6 H (4.0-6.0) % 09/07/20 09/07/20 09/07/20 Range/Units 06:00 07:49 11:55 Creatinine 1.36 H (0.52-1.04) mg/dL POC Glucose (mg/dL) 128 H 239 H (75-99) mg/dL Hemoglobin A1c (4.0-6.0) % Microbiology - Last 24 Hours (Table) 09/05/20 17:37 Gram Stain - Preliminary Cyst Wound Culture - Preliminary Padmini albicans Group D Enterococcus
[2020-09-07 17:00] LABS: Glucose,Whole Blood 214 mg/dL (75-99)
--- NOTE | 2020-09-07 19:11 | PN ---
PROGRESS NOTE DATE OF SERVICE: 09/07/2020. REASON FOR FOLLOW UP: Right groin infected cyst. INTERVAL HISTORY: The patient is afebrile. The patient is breathing comfortably. The patient denies having any chest pain. No shortness of breath or cough. No worsening pain to the right groin area. No vomiting or diarrhea. PHYSICAL EXAMINATION: Blood pressure is 107/74 with a pulse of 104. Temperature 97.6. She is 96% on room air. General description is an elderly female up in the chair in no distress. Respiratory system: Unlabored breathing. no wheeze. HEART: S1, S2. Regular rate and rhythm. ABDOMEN: Soft, no tenderness. Extremities: Some swelling. No redness. No drainage. LAB: Vanco random is 24, creatinine 1.23. DIAGNOSTIC IMPRESSION AND PLAN: Patient with right groin infected cyst. Culture with Padmini albicans and Group B Enterococcus. Patient is on vancomycin and Eraxis. Waiting for sensitivity possible excision of the cyst tomorrow per surgery. Continue supportive care. MMODL / IJN: [id number] /
[2020-09-07 20:59] LABS: Glucose,Whole Blood 263 mg/dL (75-99)
[2020-09-07] MEDS ORDERED: VANCOMYCIN 1,750 MG in SODIUM CHLORIDE 0.9% 500 ML 500 ML IVPB ONE (21:00)
[2020-09-07] MEDS: INSULIN DETEMIR (LEVEMIR) 100 UNIT/ML SYR SQ SCH (21:02)
[2020-09-07] MEDS: ANIDULAFUNGIN 100 MG in SODIUM CHLORIDE 0.9% 100 ML IVPB SCH (23:06)
[2020-09-08] MEDS: traMADol 50 MG TAB PO PRN ×2 (02:58→11:26)
[2020-09-08 06:18] LABS: Glucose,Whole Blood 159 mg/dL (75-99)
[2020-09-08] MEDS: ALPRAZolam 0.25 MG TAB PO PRN ×2 (06:21→12:49)
[2020-09-08] MEDS: INSULIN ASPART (NovoLOG) 100 UNIT/ML VIAL SQ SCH ×4 (06:32→20:16)
[2020-09-08] MEDS: IPRATROPIUM 0.5 MG/2.5 ML NEBU INHALATION SCH ×4 (08:31→20:46)
[2020-09-08] MEDS: AMIODARONE 100 MG TAB PO SCH (09:39)
[2020-09-08] MEDS: DOCUSATE 100 MG CAP PO SCH (09:40)
[2020-09-08] MEDS: ASCORBIC ACID 500 MG TAB PO SCH (09:40)
[2020-09-08] MEDS: CHOLECALCIFEROL 25 MCG (1000 IU) TABLET PO SCH (09:40)
[2020-09-08] MEDS: METOPROLOL SUCCINATE (ER) 50 MG TAB.ER.24H PO SCH ×2 (09:40→20:16)
[2020-09-08] MEDS: FUROSEMIDE 20 MG TAB PO SCH ×2 (09:40→17:20)
[2020-09-08] MEDS: SPIRONOLACTONE 25 MG TAB PO SCH (09:41)
[2020-09-08 11:49] LABS: Glucose,Whole Blood 138 mg/dL (75-99)
--- NOTE | 2020-09-08 12:00 | P.PN ---
Subjective This is a 74 year old female with a past medical history significant for with nonischemic cardiomyopathy, chronic atrial fibrillation, diabetes mellitus, hypertension, and hyperlipidemia. Patient follows in the office with Dr. Guillen. We have been asked to see the patient in consultation for atrial fibrillation. Patient examined at the bedside. Patient was hospitalized in July 2020. Patient was found to be in wide complex tachycardia and she was cardioverted in the emergency room. Patient was discharged home with a LifeVest at that time. Tevin fontana states yesterday she was walking around her house and she checked her heart rate which she occasionally does and found tube have a heart rate in the 80s. She states she was having some difficulties with her life vest and was getting the cords tangled. She states she began to feel a little dizzy and lightheaded. She reports the lifevest then released gel and she thought this was in error and she did not want to get shocked so she unblocked the device and came to the ER. She denies chest pain or pressure. She denies shortness of breath. Patient was found to be in A. fib with RVR upon admission at Hospital. Patient was started on IV Cardizem. EKG reveals A. fib with RVR Chest xray c ardiomegaly. Correlate for interstitial venous congestion, interstitial lung disease or pneumonitis. Most recent echocardiogram obtained in July 2019 revealed ejection fraction 20- 25%, severe global hypokinesis, moderate to severe mitral regurgitation, and moderate tricuspid regurgitation Cardiac catheterization history: Patient underwent cardiac catheterization in April 2019 at [facility] revealing normal coronary arteries. 09/03: LifeVest interrogation reveals wide complex tachycardia which could represent either VT or 1-1 A. tach conduction Limited echo revealed EF still severely impaired 20-25%. 09/08/2020 Patient examined this morning at the bedside, sitting up in bedside chair. Patient denies chest pain or pressure. She denies shortness of breath. She denies dizziness or lightheadedness. She denies palpitations. Patient remains in atrial fibrillation with better controlled ventricular rates 70-90s, occasionally low 100s. Patient currently maintained on amiodarone 100mg daily, Eliquis 5 mg twice a day (on hold 09/07 per surgery), Lasix 60 mg twice a day, lisinopril 2.5 mg daily, metoprolol sustained 150 mg twice a day, spironolactone 12.5 mg daily. Patient started on IV vancomycin and IV Eraxis per Infectious disease. Laboratory data reviewed creatinine 1.21 (1.36 yesterday) PHYSICAL EXAM: VITAL SIGNS: Reviewed. GENERAL: Well-developed in no acute distress. HEENT: Head is normocephalic. Pupils are equal, round. Sclerae anicteric. Mucous membranes of the mouth are moist. Neck supple. No JVD or thyromegaly LUNGS: Respirations even and unlabored. Lungs essentially clear to auscultation bilaterally. HEART: Irregular rate and rhythm. S1 and S2 heard. Systolic murmur noted. ABDOMEN: Soft. Nondistended. Nontender. EXTREMITIES: Normal range of motion. No clubbing or cyanosis. Peripheral pulses intact. Trace bilateral lower extremity edema. right venous statis ulcer SKIN: Indurated lesion in the right pubic region with serosanguenous discharge NEUROLOGIC: Awake and alert. Oriented x 3. ASSESSMENT: Possible near discharge of external defibrillator, patient unplugged device Ventricular tachycardia versus afib with RVR Chronic persistent atrial fibrillation with RVR Nonischemic cardiomyopathy EF20-25% Hypertension Hyperlipidemia Type 2 Diabetes mellitus Chronic systolic heart failure, currently euvolemic History of wide complex tachycardia requiring cardioversion, July 2020 Acute kidney injury PLAN: Dr. Pete evaluated the patient, at this point he does not recommend proceeding with ICD implant. Due to active infection in pubic region. Once the infected indurated region in the pubic area is addressed and ICD may be considered. For her atrial fibrillation we will continue to control her ventricular rates. Amiodarone 100mg daily added 09/05 Continue amiodarone 100mg daily and metoprolol succinate to 150mg BID, lisinopril, spironolactone and lasix Continue telemetry monitoring From cardiology perspective, patient is stable. Infectious disease consulted - patient currently recieving IV vancomycin and IV anidulafungin General surgery consulted- plan to remove cystlike pubic lesion Today at bedside. Eliquis is on hold at this time. We will restart anticoagulation once ok per surgery. Patient states she does not want to wear her life vest anymore when she is discharged from the hospital if she goes home, but will wear it if she goes to Rehab. Lifevest has been delivered at the patient's bedside. We explained the benefits and risk of not wearing her life vest. Patient understands the risk of possible sudden cardiac if not wearing the life vest. Patient to follow up with Dr. Guillen on discharge Nurse practitioner note has been reviewed by physician. Signing provider agrees with the documented findings, assessment, and plan of care. Objective - Vital Signs Vital signs: Vital Signs Temp 98.5 F 09/08/20 11:28 Pulse 104 H 09/08/20 11:54 Resp 18 09/08/20 11:28 BP 119/70 09/08/20 11:28 Pulse Ox 96 09/08/20 11:28 Intake & Output 09/07/20 09/08/20 09/08/20 18:59 06:59 18:59 Intake Total 720 10 Balance 720 10 Weight 109 kg Intake: IV 10 Invasive Line 3 10 Oral 720 Other: Voiding Method Toilet Toilet # Voids 1 2 # Bowel Movements 1 - Labs CBC & Chem 7: 09/05/20 06:33 09/08/20 08:16 Labs: Abnormal Lab Results - Last 24 Hours (Table) 09/07/20 09/07/20 09/07/20 Range/Units 11:55 16:58 20:57 Creatinine (0.52-1.04) mg/dL POC Glucose (mg/dL) 239 H 214 H 263 H (75-99) mg/dL 09/08/20 09/08/20 09/08/20 Range/Units 06:11 08:16 11:47 Creatinine 1.21 H (0.52-1.04) mg/dL POC Glucose (mg/dL) 159 H 138 H (75-99) mg/dL Microbiology - Last 24 Hours (Table) 09/05/20 17:37 Gram Stain - Preliminary Cyst Wound Culture - Preliminary Padmini albicans Group D Enterococcus Presumptive Staph aureus
[2020-09-08] MEDS ORDERED: LIDOCAINE 1% INJ 10MG/ML (20 ML MDV) ONE (13:49)
--- NOTE | 2020-09-08 16:16 | P.PCN ---
Date of Procedure: 09/08/20 Preoperative Diagnosis: Skin lesion right groin Postoperative Diagnosis: Skin lesion, right groin Procedure(s) Performed: Excision of skin lesion, right groin Anesthesia: local Surgeon: Joseph Hines Pathology: other (Lesion of right groin) Condition: stable Disposition: floor Indications for Procedure: 74-year-old female is currently admitted with cardiac pathology. Patient does have a cystlike skin lesion in the right groin. Patient will require right groin access for cardiac procedures and there is concern for systemic infection if this lesion is accessed. Secondary to this, consult was placed for surgical evaluation and excision of this lesion. Patient was explained risks, benefits and alternatives to procedure and did provide consent prior to procedure. Operative Findings: 2 x 1 x 1 cm skin lesion right groin Description of Procedure: The patient was prepped and draped in regular sterile fashion. The right groin was exposed. Local anesthetic was administered. An elliptical incision was made around the skin lesion site. The lesion was then dissected free from surrounding subcutaneous tissue and handed off as specimen for pathology. Hemostasis was noted to be maintained by direct pressure. The wound was then closed with interrupted 3-0 nylon suture. Sterile dressing was applied. The patient tolerated the procedure well. Nursing was given instructions for wound care.
--- NOTE | 2020-09-08 16:50 | PN ---
PROGRESS NOTE DATE OF SERVICE: 09/08/2020 REASON FOR FOLLOW UP: Infected right groin cyst. INTERVAL HISTORY: Patient is afebrile. The patient is breathing comfortably. The patient denies having any chest pain, shortness of breath or cough. No abdominal pain or pain to the right groin area. PHYSICAL EXAMINATION: Blood pressure 119/70 with a pulse 100, temperature 98.5, she is 96% on room air. General description is an elderly female up in the chair in no distress. Respiratory system: Unlabored breathing, clear to auscultation anteriorly. Heart S1, S2. Regular rate and rhythm. Abdomen is soft, no tenderness. Legs with swelling. No significant redness or drainage. LABS: Creatinine is 1.21. Local culture showing Padmini, group D Enterococcus and Staph aureus. DIAGNOSTIC IMPRESSION AND PLAN: Patient with right groin infected cyst. Waiting for the surgical instructions today. Cultures did show multiple pathogens, patient covered with Eraxis and vancomycin with final antibiotics depending upon the final culture and continue supportive care. MMODL / IJN: [id number] /
[2020-09-08 16:56] LABS: Glucose,Whole Blood 127 mg/dL (75-99)
[2020-09-08 20:14] LABS: Glucose,Whole Blood 232 mg/dL (75-99)
[2020-09-08] MEDS: INSULIN DETEMIR (LEVEMIR) 100 UNIT/ML SYR SQ SCH (20:16)
[2020-09-08] MEDS: ANIDULAFUNGIN 100 MG in SODIUM CHLORIDE 0.9% 100 ML IVPB SCH (21:11)
--- NOTE | 2020-09-08 23:56 | P.PN ---
Subjective Progress Note Date: 09/08/20 Principal diagnosis: atrial fibrillation This is a continue present on a 74-year-old white female who has had difficulty with atrial fibrillation over the last 2 months. She is readmitted for this and is doing well otherwise. No fever or chills stated she has history of lower extremity cellulitis. The patient states cardiology is debating whether to EPS study. However, she has a right groin wound which obviates more work to do the procedure properly. Surgery has not been consulted for removal of mass. She will require LifeVest temporarily prior EPS study is done. 09/08/2020 Patient is currently sitting limited comfortably. Denies any complaints of chest pain or shortness of breath. No headache or dizziness or lightheadedness. No palpitations. Otherwise patient did mention atrial fibrillation. Patient does have right groin infected cyst. Surgery is planned for or today. Culture showed multiple pathogens. Currently on Eraxis and vancomycin as per ID recommendations. Patient has been afebrile. Laboratory data showed creatinine 1.21 and blood sugar is 159 this morning. Current medications reviewed. Active Medications Generic Name Dose Route Start Last Admin Trade Name Freq PRN Reason Stop Dose Admin Acetaminophen 650 mg 09/01/20 16:33 09/08/20 14:30 Acetaminophen Tab 325 Mg Tab PO 650 mg Q6HR PRN Administration Mild Pain or Fever > 100.5 Alprazolam 0.25 mg 09/02/20 12:17 09/08/20 12:49 Alprazolam 0.25 Mg Tab PO 0.25 mg QID PRN Administration Agitation or Acute Anxiety Amiodarone HCl 100 mg 09/05/20 18:30 09/08/20 09:39 Amiodarone 100 Mg Tab PO 100 mg DAILY HARIKA Administration Ascorbic Acid 1,000 mg 09/04/20 09:00 09/08/20 09:40 Ascorbic Acid 500 Mg Tab PO 1,000 mg DAILY HARIKA Administration Cholecalciferol 50 mcg 09/04/20 09:00 09/08/20 09:40 Cholecalciferol 25 Mcg (1000 Iu) Tablet PO 50 mcg DAILY HARIKA Administration Docusate Sodium 100 mg 09/05/20 09:00 09/08/20 09:40 Docusate 100 Mg Cap PO 100 mg DAILY HARIKA Administration Famotidine 20 mg 09/04/20 14:48 Famotidine 20 Mg Tab PO DAILY PRN acid reflux Furosemide 60 mg 09/02/20 09:00 09/08/20 17:20 Furosemide 20 Mg Tab PO 60 mg BID@0900,1600 [facility] Administration Anidulafungin 100 mg/ Sodium 100 mls @ 84 mls/hr 09/07/20 22:00 09/08/20 21:11 Chloride IVPB 84 mls/hr DAILY@2200 HARIKA Administration Insulin Aspart 0 unit 09/01/20 21:00 09/08/20 20:16 Insulin Aspart (Novolog) 100 Unit/Ml Vial SQ 5 unit ACHS [facility] Administration Protocol Insulin Detemir 40 unit 09/01/20 22:50 09/08/20 20:16 Insulin Detemir (Levemir) 100 Unit/Ml Syr SQ 40 unit HS [facility] Administration Ipratropium Bruneau 0.5 mg 09/05/20 08:00 09/08/20 20:46 Ipratropium 0.5 Mg/2.5 Ml Nebu INHALATION 0.5 mg RT-QID HARIKA Administration Lisinopril 2.5 mg 09/02/20 09:00 09/08/20 09:40 Lisinopril 2.5 Mg Tab PO 2.5 mg DAILY HARIKA Administration Magnesium Hydroxide 2,400 mg 09/04/20 22:00 09/04/20 22:15 Magnesium Hydroxide 2,400 Mg/10 Ml Cup PO 2,400 mg BID PRN Administration Constipation Metoprolol Succinate 150 mg 09/04/20 21:00 09/08/20 20:16 Metoprolol Succinate (Er) 50 Mg Tab.Er.24h PO 150 mg BID HARIKA Administration Miscellaneous Information 1 each 09/05/20 17:21 Vancomycin Iv Per Pharmacy 1 Each Misc MISCELLANE DIRECTED PRN LEVELS Naloxone HCl 0.2 mg 09/01/20 16:33 Naloxone 0.4 Mg/Ml 1 Ml Vial IV Q2M PRN Opioid Reversal Spironolactone 12.5 mg 09/02/20 09:00 09/08/20 09:41 Spironolactone 25 Mg Tab PO 12.5 mg DAILY HARIKA Administration Tramadol HCl 50 mg 09/01/20 20:19 09/08/20 11:26 Tramadol 50 Mg Tab PO 50 mg Q6H PRN Administration Pain Objective - Vital Signs Vital signs: Vital Signs Temp 98.7 F 09/08/20 20:00 Pulse 98 09/08/20 21:00 Resp 18 09/08/20 20:00 BP 116/61 09/08/20 20:00 Pulse Ox 95 09/08/20 20:00 Intake & Output 09/08/20 09/08/20 09/09/20 06:59 18:59 06:59 Intake Total 10 660 10 Output Total 300 Balance 10 360 10 Weight 109 kg Intake: IV 10 10 Invasive Line 3 10 10 Oral 660 Output: Urine 300 Other: Voiding Method Toilet # Voids 2 1 # Bowel Movements 1 - Exam PHYSICAL EXAMINATION: Patient is lying in the bed comfortably, no acute distress, awake alert and oriented.. HEENT: Normocephalic. Neck is supple. Pupils reactive. Nostrils clear. Oral cavity is moist. Neck reveals no JVD, carotid bruits, or thyromegaly. CHEST EXAMINATION: Trachea is central. Symmetrical expansion. Lung reynolds clear to auscultation and percussion. CARDIAC: Normal S1, S2 with no gallops. Irregularly irregular rhythm. Systolic murmur present. ABDOMEN: Soft. Bowel sounds normal. No organomegaly. No abdominal bruits. Extremities: krystyna LE trace edema. No clubbing or cyanosis Neurologically awake, alert, oriented x3 with well-coordinated movements. No focal deficits noted Skin: No rash or skin lesions. Psychiatric: Coperative. Nonsuicidal Musculoskeletal: No joint swelling or deformity. Normal range of motion. - Labs CBC & Chem 7: 09/05/20 06:33 09/08/20 08:16 Labs: Abnormal Lab Results - Last 24 Hours (Table) 09/08/20 09/08/20 09/08/20 Range/Units 06:11 08:16 11:47 Creatinine 1.21 H (0.52-1.04) mg/dL POC Glucose (mg/dL) 159 H 138 H (75-99) mg/dL 09/08/20 09/08/20 Range/Units 16:54 20:06 Creatinine (0.52-1.04) mg/dL POC Glucose (mg/dL) 127 H 232 H (75-99) mg/dL Microbiology - Last 24 Hours (Table) 09/08/20 14:12 Tissue Culture - Preliminary Groin 09/05/20 17:37 Gram Stain - Preliminary Cyst Wound Culture - Preliminary Padmini albicans Group D Enterococcus Staphylococcus aureus Assessment and Plan Assessment: Atrial fibrillation with rapid ventricular rate versus ventricular tachycardia. Near discharge of external defibrillator. Patient unplugged battery prior to discharge. Chronic persistent atrial fibrillation. Nonischemic cardiomyopathy ejection fraction 20 to 20%. Chronic CHF with systolic dysfunction. Moderate to severe MR Hypertension Hyperlipidemia Diabetes type 2 History cardioversion in July 2020 Acute kidney injury. Creatinine improved to 1.21. Was 1.65 on admission. DVT prophylaxis. On hold currently. Plan: Patient will be continued on telemetry monitoring. Continue with amiodarone, metoprolol, spironolactone, Lasix and lisinopril. Cardiology recommends ICD placement. Patient does have infected right groin cyst. General surgery is on board and is planning for removal of the cyst today. Eliquis is on hold currently. Patient does not want to wear LifeVest anymore. Continue to follow closely. Time with Patient: Greater than 30
[2020-09-09 06:03] LABS: Glucose,Whole Blood 151 mg/dL (75-99)
[2020-09-09] MEDS: INSULIN ASPART (NovoLOG) 100 UNIT/ML VIAL SQ SCH ×4 (06:37→21:24)
[2020-09-09] MEDS: ASCORBIC ACID 500 MG TAB PO SCH (08:07)
[2020-09-09] MEDS: CHOLECALCIFEROL 25 MCG (1000 IU) TABLET PO SCH (08:07)
[2020-09-09] MEDS: AMIODARONE 100 MG TAB PO SCH (08:07)
[2020-09-09] MEDS: SPIRONOLACTONE 25 MG TAB PO SCH (08:08)
[2020-09-09] MEDS: METOPROLOL SUCCINATE (ER) 50 MG TAB.ER.24H PO SCH ×2 (08:08→21:24)
[2020-09-09] MEDS: FUROSEMIDE 20 MG TAB PO SCH ×2 (08:08→16:34)
[2020-09-09] MEDS: DOCUSATE 100 MG CAP PO SCH (08:08)
[2020-09-09 08:30] LABS: Basophils # (A) 0.1 k/uL (0-0.2); Basophils % (A) 1 %; Eosinophils # (A) 0.4 k/uL (0-0.7); Eosinophils % (A) 6 %; HCT 36.2 % (34.0-46.0); HGB 11.1 gm/dL (11.4-16.0); Hypochromasia Slight; Lymphocytes # (A) 1.3 k/uL (1.0-4.8); Lymphocytes % (A) 22 %; MCHC 30.7 g/dL (31.0-37.0); Mean Platelet Volume 7.7; Monocytes # (A) 0.5 k/uL (0-1.0); Monocytes % (A) 8 %; Neutrophils # (A) 3.5 k/uL (1.3-7.7); Neutrophils % (A) 60 %; Platelet Count 272 k/uL (150-450); RBC 3.98 m/uL (3.80-5.40); RDW 15.6 % (11.5-15.5); WBC 5.8 k/uL (3.8-10.6)
[2020-09-09 08:41] LABS: Calcium 9.1 mg/dL (8.4-10.2); Potassium 3.9 mmol/L (3.5-5.1)
[2020-09-09] MEDS: IPRATROPIUM 0.5 MG/2.5 ML NEBU INHALATION SCH ×4 (08:41→20:42)
[2020-09-09 10:07] LABS: Vancomycin,Random 15.8 ug/mL
[2020-09-09 11:52] LABS: Glucose,Whole Blood 203 mg/dL (75-99)
--- NOTE | 2020-09-09 11:52 | P.PN ---
Subjective Progress Note Date: 09/09/20 This is a 74 year old female with a past medical history significant for with nonischemic cardiomyopathy, chronic atrial fibrillation, diabetes mellitus, hypertension, and hyperlipidemia. Patient follows in the office with Dr. Guillen. We have been asked to see the patient in consultation for atrial fibrillation. Patient examined at the bedside. Patient was hospitalized in July 2020. Patient was found to be in wide complex tachycardia and she was cardioverted in the emergency room. Patient was discharged home with a LifeVest at that time. Patient presented to the hospital on this occasion with symptoms of dizziness and lightheadedness, she was found to be in atrial fibrillation with rapid ventricular response. Interrogation of her LifeVest did show that the patient had a wide complex tachycardia. She does have a known ejection fraction of 20- 25%. Patient was seen in consultation by Dr. Pete, who will consider implantation of an AICD once her infection of the right groin and pubic region has been cleared. Patient did undergo excision of a lesion of the right groin by Dr. Hines. She was seen and examined this morning sitting up in her chair, overall feels well, no palpitations, no dizziness or lightheadedness. No arrhythmias noted on the monitor. Patient is going to be transferred to rehab at [facility] facility. Blood pressure 102/60 with a heart rate of 8097% on room air. White blood cell count 5.8, hemoglobin 11.1, platelet count 272. Sodium 138, potassium 3.9, BUN 32, creatinine 1.1. Objective - Vital Signs Vital signs: Vital Signs Temp 98.6 F 09/09/20 08:00 Pulse 92 09/09/20 11:42 Resp 18 09/09/20 08:00 BP 102/55 09/09/20 08:00 Pulse Ox 97 09/09/20 08:00 Intake & Output 09/08/20 09/09/20 09/09/20 18:59 06:59 18:59 Intake Total 660 10 120 Output Total 300 0 Balance 360 10 120 Weight 108.2 kg Intake: IV 10 Invasive Line 3 10 Oral 660 120 Output: Urine 300 0 Other: Voiding Method Toilet # Voids 0 - Exam VITAL SIGNS: Reviewed. GENERAL: Well-developed in no acute distress. HEENT: Head is normocephalic. Pupils are equal, round. Sclerae anicteric. Mucous membranes of the mouth are moist. Neck supple. No JVD or thyromegaly LUNGS: Respirations even and unlabored. Lungs essentially clear to auscultation bilaterally. HEART: Irregular rate and rhythm. S1 and S2 heard. Systolic murmur noted. ABDOMEN: Soft. Nondistended. Nontender. EXTREMITIES: Normal range of motion. No clubbing or cyanosis. Peripheral pulses intact. Trace bilateral lower extremity edema. right venous statis ulcer SKIN: Indurated lesion in the right pubic region with serosanguenous discharge NEUROLOGIC: Awake and alert. Oriented x 3. - Labs CBC & Chem 7: 09/09/20 07:48 09/09/20 07:48 Labs: Abnormal Lab Results - Last 24 Hours (Table) 09/08/20 09/08/20 09/08/20 Range/Units 11:47 16:54 20:06 Hgb (11.4-16.0) gm/dL MCHC (31.0-37.0) g/dL RDW (11.5-15.5) % BUN (7-17) mg/dL Creatinine (0.52-1.04) mg/dL Glucose (74-99) mg/dL POC Glucose (mg/dL) 138 H 127 H 232 H (75-99) mg/dL 09/09/20 09/09/20 09/09/20 Range/Units 06:02 07:48 07:48 Hgb 11.1 L (11.4-16.0) gm/dL MCHC 30.7 L (31.0-37.0) g/dL RDW 15.6 H (11.5-15.5) % BUN 32 H (7-17) mg/dL Creatinine 1.22 H (0.52-1.04) mg/dL Glucose 139 H (74-99) mg/dL POC Glucose (mg/dL) 151 H (75-99) mg/dL Microbiology - Last 24 Hours (Table) 09/08/20 14:12 Gram Stain - Preliminary Groin Tissue Culture - Preliminary 09/05/20 17:37 Gram Stain - Preliminary Cyst Wound Culture - Preliminary Padmini albicans Group D Enterococcus Staphylococcus aureus Assessment and Plan Plan: Assessment and plan #1 wide-complex tachycardia #2 chronic persistent atrial fibrillation #3 nonischemic cardio myopathy with documented ejection fraction of 20-25% #4 hypertension #5 hyperlipidemia #6 diabetes #7 skin lesion of the right groin status post excision Plan Patient may be transferred to rehab at [facility] from cardiology's perspective, with a LifeVest. Follow-up appointment in the office with Dr. Guillen. Placement of AICD once the groin infection clears. DNP note has been reviewed, I agree with a documented findings and plan of care. Patient was seen and examined.
[2020-09-09] MEDS ORDERED: VANCOMYCIN 1,750 MG in SODIUM CHLORIDE 0.9% 500 ML 500 ML IVPB ONE (12:00)
[2020-09-09] MEDS: traMADol 50 MG TAB PO PRN (13:13)
[2020-09-09 17:21] LABS: Glucose,Whole Blood 199 mg/dL (75-99)
[2020-09-09 20:24] LABS: Glucose,Whole Blood 270 mg/dL (75-99)
[2020-09-09] MEDS: INSULIN DETEMIR (LEVEMIR) 100 UNIT/ML SYR SQ SCH (21:24)
[2020-09-09] MEDS: ANIDULAFUNGIN 100 MG in SODIUM CHLORIDE 0.9% 100 ML IVPB SCH (21:24)
--- NOTE | 2020-09-10 04:02 | PN ---
PROGRESS NOTE DATE OF SERVICE: 09/09/2020 I am covering for Dr. Shirley. This 74-year-old woman was admitted with atrial fibrillation, also had a cyst. Surgery done by Dr. Hines. The patient had excision of skin lesion on the right groin. The patient also had a wound culture showing Padmini, group D Enterococcus and Staph aureus which is MSSA. PAST MEDICAL HISTORY: Reviewed. REVIEW OF SYSTEMS: CARDIOVASCULAR No angina or palpitations. RESPIRATORY No cough, no hemoptysis. GI No nausea, vomiting, or diarrhea. No dysuria or hematuria. NERVOUS No numbness or weakness. CURRENT MEDICATIONS: Tylenol, Xanax, Cordarone, ( ), vitamin C, Colace, vitamin D3, Pepcid. Doses reviewed. PHYSICAL EXAMINATION: Patient alert and oriented x3. Pulse 102, blood pressure is 117/80, respiration 18, temperature 98.2, pulse ox 98% on room air. HEENT: Conjunctivae normal. Oral mucosa moist. NECK: No jugular venous distention. No lymph node enlargement. CARDIOVASCULAR: S1, S2, muffled. No S3, no S4, RESPIRATORY: Diminished breath sounds at the bases. A few scattered rhonchi. ABDOMEN: Soft, nontender. LEGS: No edema, no swelling. NERVOUS SYSTEM: No focal deficits. LAB STUDIES: Hemoglobin 7.1, creatinine is 1.2, glucose noted. ASSESSMENT: 1. Atrial fibrillation with rapid ventricular rate versus ventricular tachycardia. 2. New discharge of external defibrillator. 3. Chronic persistent atrial fibrillation history. 4. Nonischemic cardiomyopathy, ejection fraction 20-25%. 5. Chronic congestive heart failure with chronic systolic dysfunction. 6. Moderate to severe mitral regurgitation. 7. Right groin skin lesion status post excision. 8. Padmini albicans, group D Enterococcus and MSSA grown from the culture. 9. Hypertension. 10.Hyperlipidemia. 11.Diabetes mellitus type 2. 12.History of cardioversion. 13.Acute kidney injury. 14.Deep vein thrombosis prophylaxis. RECOMMENDATIONS: Recommend to continue current medications, continue symptomatic treatment. Otherwise, repeat labs. Infectious Disease is also following the patient closely. Guarded prognosis. Further recommendations to follow. MMODL / IJN: [id number] /
[2020-09-10 06:05] LABS: Glucose,Whole Blood 156 mg/dL (75-99)
[2020-09-10] MEDS: INSULIN ASPART (NovoLOG) 100 UNIT/ML VIAL SQ SCH ×4 (06:31→21:37)
[2020-09-10] MEDS: IPRATROPIUM 0.5 MG/2.5 ML NEBU INHALATION SCH ×4 (07:59→21:06)
--- NOTE | 2020-09-10 08:16 | PN ---
PROGRESS NOTE DATE OF SERVICE: 09/09/2020 REASON FOR FOLLOWUP: Infected right groin cyst. INTERVAL HISTORY: The patient is afebrile. The patient is status post surgical excision of the right groin cyst. The patient tolerated the procedure. The patient denies having any chest pain, shortness of breath or cough. No abdominal pain. No diarrhea. PHYSICAL EXAMINATION: Blood pressure is 152/60 with a pulse of 109, temperature 98.7, she is 96% on room air. General description is an elderly female lying in bed in no distress. Respiratory system: Unlabored breathing, clear to auscultation anteriorly. Heart S1, S2. Regular rate and rhythm. Abdomen is soft, no tenderness. Legs did have some swelling, no redness. Wound is currently dressed. LABS: The current cyst culture shows MSSA Enterococcus, sensitivity is pending, as well as Padmini. Hemoglobin is 11.8, white count 5.9, BUN of 32, creatinine 1.22. DIAGNOSTIC IMPRESSION AND PLAN: Patient with infected right groin cyst status post excision. Biopsies pending. Cultures did shows MSSA Enterococcus, sensitivity is pending pending, and Padmini. The patient is covered with vancomycin and Eraxis. Continue while waiting for the biopsy report. Continue supportive care. MMODL / IJN: [id number] /
[2020-09-10] MEDS: CHOLECALCIFEROL 25 MCG (1000 IU) TABLET PO SCH (09:11)
[2020-09-10] MEDS: AMIODARONE 100 MG TAB PO SCH (09:11)
[2020-09-10] MEDS: DOCUSATE 100 MG CAP PO SCH (09:11)
[2020-09-10] MEDS: ASCORBIC ACID 500 MG TAB PO SCH (09:11)
[2020-09-10] MEDS: FUROSEMIDE 20 MG TAB PO SCH ×2 (09:11→16:44)
[2020-09-10] MEDS: METOPROLOL SUCCINATE (ER) 50 MG TAB.ER.24H PO SCH ×2 (09:12→21:37)
[2020-09-10] MEDS: SPIRONOLACTONE 25 MG TAB PO SCH (09:12)
--- NOTE | 2020-09-10 09:15 | P.PN ---
Subjective Progress Note Date: 09/10/20 Patient seen and examined at bedside. Denies any pain in her groin incision site. No complaints. Objective - Vital Signs Vital signs: Vital Signs Temp 97.6 F 09/10/20 08:00 Pulse 59 L 09/10/20 08:11 Resp 18 09/10/20 08:00 BP 133/62 09/10/20 08:00 Pulse Ox 97 09/10/20 08:00 Intake & Output 09/09/20 09/10/20 09/10/20 18:59 06:59 18:59 Intake Total 840 10 Balance 840 10 Weight 108.7 kg Intake: IV 10 Invasive Line 3 10 Oral 840 Other: Voiding Method Toilet Toilet # Voids 4 1 - Constitutional General appearance: Present: cooperative - Gastrointestinal Gastrointestinal Comment(s): Soft, nontender, nondistended, no rebound - Genitourinary Genitourinary Comment(s): Grade incision site clean, dry and intact with sutures in place. No significant drainage, no surrounding induration - Labs CBC & Chem 7: 09/09/20 07:48 09/09/20 07:48 Labs: Abnormal Lab Results - Last 24 Hours (Table) 09/09/20 09/09/20 09/09/20 Range/Units 11:50 17:19 20:23 POC Glucose (mg/dL) 203 H 199 H 270 H (75-99) mg/dL 09/10/20 Range/Units 06:03 POC Glucose (mg/dL) 156 H (75-99) mg/dL Microbiology - Last 24 Hours (Table) 09/08/20 14:12 Gram Stain - Preliminary Groin Tissue Culture - Preliminary Assessment and Plan Plan: Status post removal of groin lesion. Awaiting cultures. Continue local wound care with daily dressing changes.
[2020-09-10] MEDS: APIXABAN 5 MG TAB PO SCH ×2 (10:14→21:37)
[2020-09-10 12:36] LABS: Glucose,Whole Blood 265 mg/dL (75-99)
--- NOTE | 2020-09-10 13:58 | P.PN ---
Subjective Progress Note Date: 09/10/20 HISTORY OF PRESENT ILLNESS: This is a 74 year old female with a past medical history significant for with nonischemic cardiomyopathy, chronic atrial fibrillation, diabetes mellitus, hypertension, and hyperlipidemia. Patient follows in the office with Dr. Guillen. We have been asked to see the patient in consultation for atrial fibrillation. Patient examined at the bedside. Patient was hospitalized in July 2020. Patient was found to be in wide complex tachycardia and she was cardioverted in the emergency room. Patient was discharged home with a LifeVest at that time. Patient states yesterday she was walking around her house and she checked her heart rate which she occasionally does and found tube have a heart rate in the 80s. She states she was having some difficulties with her life vest and was getting the cords tangled. She states she began to feel a little dizzy and lightheaded. She reports the lifevest then released gel and she thought this was in error and she did not want to get shocked so she unblocked the device and came to the ER. She denies chest pain or pressure. She denies shortness of breath. Patient was found to be in A. fib with RVR upon admission at Hospital. Patient was started on IV Cardizem. EKG reveals A. fib with RVR Chest xray cardiomegaly. Correlate for interstitial venous congestion, interstitial lung disease or pneumonitis. Laboratory data: WBC 10.4. Hemoglobin 10.9. Pletal count 301. Sodium 136. Potassium 4.1. BUN 34. Creatinine 1.58. Magnesium 1.7. Troponin negative 1. Current home cardiac medications include lisinopril 2.5 mg daily, Aldactone 12.5 mg daily, metoprolol succinate 100 mg daily, Lasix 60 mg twice a day, and Eliquis 5 mg twice a day Most recent echocardiogram obtained in July 2019 revealed ejection fraction 20- 25%, severe global hypokinesis, moderate to severe mitral regurgitation, and moderate tricuspid regurgitation Cardiac catheterization history: Patient underwent cardiac catheterization in April 2019 at [facility] revealing normal coronary arteries. 09/10/2020 Patient is status post excision of right groin skin lesion with Dr. Hines. Patient examined at the bedside. Patient denies chest pain or pressure. She denies short of breath. She denies dizziness or lightheadedness. PHYSICAL EXAM: VITAL SIGNS: Reviewed. GENERAL: Well-developed in no acute distress. HEENT: Head is normocephalic. Pupils are equal, round. Sclerae anicteric. Mucous membranes of the mouth are moist. Neck supple. No JVD or thyromegaly LUNGS: Respirations even and unlabored. Lungs essentially clear to auscultation bilaterally. HEART: Irregular rate and rhythm. S1 and S2 heard. Systolic murmur noted. EXTREMITIES: Normal range of motion. No clubbing or cyanosis. Peripheral pulses intact. Trace bilateral lower extremity edema ASSESSMENT: Possible near discharge of external defibrillator, patient unplugged device Ventricular tachycardia versus afib with RVR Chronic persistent atrial fibrillation with RVR Nonischemic cardiomyopathy Hypertension Hyperlipidemia Diabetes mellitus Chronic systolic heart failure, currently euvolemic History of wide complex tachycardia requiring cardioversion, July 2020 Acute kidney injury Right groin lesion PLAN: Continue current cardiac medications Patient will require AICD when right groin infection resolves LifeVest at time of discharge Follow up with Dr Guillen Nurse practitioner note has been reviewed by physician. Signing provider agrees with the documented findings, assessment, and plan of care. Objective - Vital Signs Vital signs: Vital Signs Temp 98.7 F 09/10/20 11:29 Pulse 88 09/10/20 11:55 Resp 18 09/10/20 11:29 BP 123/78 09/10/20 11:29 Pulse Ox 98 09/10/20 11:29 Intake & Output 09/09/20 09/10/20 09/10/20 18:59 06:59 18:59 Intake Total 840 10 480 Balance 840 10 480 Weight 108.7 kg Intake: IV 10 Invasive Line 3 10 Oral 840 480 Other: Voiding Method Toilet Toilet Toilet # Voids 4 1 1 - Labs CBC & Chem 7: 09/09/20 07:48 09/09/20 07:48 Labs: Abnormal Lab Results - Last 24 Hours (Table) 09/09/20 09/09/20 09/10/20 Range/Units 17:19 20:23 06:03 POC Glucose (mg/dL) 199 H 270 H 156 H (75-99) mg/dL 09/10/20 Range/Units 12:19 POC Glucose (mg/dL) 265 H (75-99) mg/dL
[2020-09-10] MEDS: ALPRAZolam 0.25 MG TAB PO PRN (16:58)
[2020-09-10 17:21] LABS: Glucose,Whole Blood 248 mg/dL (75-99)
--- NOTE | 2020-09-10 19:48 | PN ---
PROGRESS NOTE DATE OF SERVICE: 09/10/2020 I am covering for Dr. Shirley. This 74-year-old woman was admitted with atrial fibrillation, also had a skin lesion in the right groin. Surgery done by Dr. Hines. Wound cultures showing multiple organisms with Padmini albicans group D Enterococcus Staph aureus. Patient is being covered with antifungals and antibiotics. Patient being closely monitored. PAST MEDICAL HISTORY: Reviewed. REVIEW OF SYSTEMS: CARDIOVASCULAR system: No angina or palpitations. RESPIRATION: As mentioned earlier. GI as mentioned earlier. : No dysuria. NERVOUS SYSTEM: No numbness. No weakness. CURRENT MEDICATIONS: Include: Tylenol, Xanax, Cordarone, Eliquis, vitamin C, vitamin D3, Colace, doses reviewed. Doses and other medications reviewed. PHYSICAL EXAMINATION: The patient is alert and oriented times three. Pulse 107, blood pressure 123/58. Respiration 18. Temperature 98.2, pulse ox 94% on room air. HEENT: Conjunctivae normal. NECK: No JVD. CARDIOVASCULAR: S1, S2 muffled. RESPIRATORY: Breath sounds diminished in the bases. Scattered rhonchi and crackles. ABDOMEN: Soft, nontender. LEGS: No edema. No swelling. NERVOUS SYSTEM: No focal deficits. LABORATORY DATA: Accu-Cheks 265 and 248. Otherwise, hemoglobin 11.1. Creatinine is 1.22. ASSESSMENT: 1. Atrial fibrillation with rapid ventricular rate versus ventricular tachycardia. 2. New discharge from the external defibrillator. 3. Chronic persistent atrial fibrillation history. 4. Nonischemic cardiomyopathy, ejection fraction 20 to 25% with chronic systolic dysfunction. 5. Chronic congestive heart failure with chronic systolic dysfunction. 6. Moderate history of mitral regurgitation. 7. Right groin skin lesions status post excision. 8. Padmini albicans Group D enterococcus and MSSA grown from the culture. 9. Hypertension. 10.Diabetes mellitus type 2 uncontrolled with hyperglycemia. 11.Hyperlipidemia. 12.History of cardioversion. 13.Acute kidney injury. 14.Deep vein thrombosis prophylaxis. 15.FULL CODE. 16.Obesity with body mass of 43.2. RECOMMENDATIONS AND DISCUSSION: This 74-year-old woman who presented with multiple complex medical issues, we will monitor the patient closely, continue the current medications, continue antibiotics and antifungals. Closely follow with Infectious Disease. I would also recommend increase the dose of insulin to 50 units and continue to monitor. Guarded prognosis. Dr. Shirley will follow. MMODL / RONAN: [id number] / MTDD
[2020-09-10 20:09] LABS: Glucose,Whole Blood 278 mg/dL (75-99)
[2020-09-10] MEDS ORDERED: INSULIN DETEMIR (LEVEMIR) 100 UNIT/ML SYR SQ SCH (21:00)
[2020-09-10] MEDS: ANIDULAFUNGIN 100 MG in SODIUM CHLORIDE 0.9% 100 ML IVPB SCH (21:39)
--- NOTE | 2020-09-10 22:37 | PN ---
PROGRESS NOTE DATE OF SERVICE: 09/10/2020 REASON FOR FOLLOWUP: 1. Right groin infected cyst. 2. Right leg wound. INTERVAL HISTORY: Patient is afebrile. The patient is breathing comfortably. The patient denies having any chest pain, shortness of breath or cough. No nausea, vomiting, abdominal pain or pain to the right groin area. No diarrhea. PHYSICAL EXAMINATION: Blood pressure 133/58 with a pulse of 91, temperature 98.3. She is 95% on room air. General description: The patient is an elderly female up in the chair in no distress. Respiratory system: Unlabored breathing, decreased breath sounds at the bases. No wheeze. Heart S1, S2. Regular rate and rhythm. Abdomen soft, no tenderness. Right groin site of previous cyst excision no swelling, no redness or any drainage. Right leg wound with no cellulitis. LABS: No new labs have been obtained today. Sensitivities Enterococcus still pending. DIAGNOSTIC IMPRESSION AND PLAN: 1. Patient with right groin infected cyst, status post surgical excision. Culture with Enterococcus with sensitivities pending MSSA and continue the patient on vancomycin and Eraxis. Finish therapy with short course of oral Augmentin, especially if the Enterococcus is Penicillin sensitive. 2. Right leg wound. Local care with dry Aquacel Silver dressing. MMODL / IJN: [id number] /
[2020-09-11 05:58] LABS: Glucose,Whole Blood 127 mg/dL (75-99)
[2020-09-11] MEDS: INSULIN ASPART (NovoLOG) 100 UNIT/ML VIAL SQ SCH (06:02)
--- NOTE | 2020-09-11 07:51 | P.DS ---
Providers Date of admission: 09/01/20 16:33 Attending physician: Luis Shirley Consults: 09/01/20 16:33 Consult Physician Routine Consulting Provider: Yifan Guillen Consult Reason/Comments: A-fib Do you want consulting provider notified?: Yes 09/05/20 17:32 Consult Physician Routine Consulting Provider: Joseph Hines Consult Reason/Comments: sebaceous cyst in the pubic area, unhealed right newsome uler Do you want consulting provider notified?: Already Contacted 09/05/20 18:19 Consult Physician Routine Consulting Provider: Jenae Bowman Consult Reason/Comments: Infection in the pubic region Do you want consulting provider notified?: Yes Primary care physician: Luis Shirley - Discharge Diagnosis(es) (1) Atrial fibrillation with RVR Current Visit: Yes Status: Acute (2) Diabetes with skin ulcer Current Visit: No Status: Acute (3) Failure of outpatient treatment Current Visit: No Status: Acute Hospital Course: This discharge summary a 74-year-old white female with known history of atrial for ablation with RVR. Diabetes with element of chronic cellulitis. The patient was admitted because of recurrent atrial fibrillation with rapid ventricular response. This is stabilized but she needs to have EPS study. This was not able to be done secondary to groin infection. Cyst was removed by general surgery and the patient will be placed on appropriate antibiotic lore tment and transferred to [facility] with LifeVest. The patient will then return for appropriate EPS study and hopefully this will control her arrhythmia. The patient is tolerating diet walking without difficulty. She does have paroxysmal atrial fibrillation but has been better controlled. She has appropriate pain and anticoagulation control Patient Condition at Discharge: Stable Plan - Discharge Summary Discharge Rx Participant: No New Discharge Prescriptions: New RX: Amiodarone [Cordarone] 100 mg PO DAILY #30 tab RX: ALPRAZolam [Xanax] 0.25 mg PO QID PRN #120 tab PRN Reason: Agitation Or Acute Anxiety RX: Acetaminophen Tab [Tylenol] 650 mg PO Q6HR PRN tab PRN Reason: Mild Pain Or Fever > 100.5 Continue RX: Potassium 297 mg PO W/SUPPER RX: metFORMIN HCL ER [Glucophage Xr] 500 mg PO DAILY RX: Cholecalciferol [Vitamin D3 (25 Mcg = 1000 Iu)] 2,000 unit PO DAILY RX: Potassium 99 mg PO QAM RX: Timolol 0.5% Ophth Soln [Timoptic 0.5% Ophth Soln] 1 drop BOTH EYES BID RX: Ascorbic Acid [Vitamin C] 1,000 mg PO DAILY RX: Ipratropium Platina [Atrovent Hfa] 2 puff INHALATION RT-QID RX: Furosemide [Lasix] 60 mg PO BID@0900,1600 #180 tab RX: Insulin Glargine,Hum.rec.anlog [Toujeo Max Solostar] 40 - 60 units SQ HS RX: Ipratropium Nebulized [Atrovent Nebulized 0.2 MG/ML] 0.5 mg INHALATION Q6HR RX: Spironolactone [Aldactone] 12.5 mg PO DAILY RX: Famotidine 40 mg PO DAILY PRN PRN Reason: acid reflux RX: Apixaban [Eliquis] 5 mg PO BID RX: Metoprolol Succinate (ER) [Toprol XL] 100 mg PO DAILY #30 tab.er.24h RX: lisinopriL [Zestril] 2.5 mg PO DAILY #30 tab RX: traMADol HCL 50 mg PO Q6H PRN #120 tab PRN Reason: Pain Discontinued RX: Insulin Glargine,Hum.rec.anlog [Toujeo Max Solostar] See Protocol SQ DAILY Discharge Medication List RX: Potassium 297 mg PO W/SUPPER 03/31/18 [History] RX: metFORMIN HCL ER [Glucophage Xr] 500 mg PO DAILY 03/31/18 [History] RX: Cholecalciferol [Vitamin D3 (25 Mcg = 1000 Iu)] 2,000 unit PO DAILY 04/01/18 [History] RX: Potassium 99 mg PO QAM 04/01/18 [History] RX: Timolol 0.5% Ophth Soln [Timoptic 0.5% Ophth Soln] 1 drop BOTH EYES BID 04/01/18 [History] RX: Apixaban [Eliquis] 5 mg PO BID 08/13/20 [History] RX: Ascorbic Acid [Vitamin C] 1,000 mg PO DAILY 08/13/20 [History] RX: Famotidine 40 mg PO DAILY PRN 08/13/20 [History] RX: Ipratropium Platina [Atrovent Hfa] 2 puff INHALATION RT-QID 08/13/20 [History] RX: Spironolactone [Aldactone] 12.5 mg PO DAILY 08/13/20 [History] RX: Furosemide [Lasix] 60 mg PO BID@0900,1600 #180 tab 08/22/20 [Rx] RX: Metoprolol Succinate (ER) [Toprol XL] 100 mg PO DAILY #30 tab.er.24h 08/22/20 [Rx] RX: lisinopriL [Zestril] 2.5 mg PO DAILY #30 tab 08/22/20 [Rx] RX: Insulin Glargine,Hum.rec.anlog [Toujeo Max Solostar] 40 - 60 units SQ HS 09/01/20 [History] RX: Ipratropium Nebulized [Atrovent Nebulized 0.2 MG/ML] 0.5 mg INHALATION Q6HR 09/02/20 [History] RX: ALPRAZolam [Xanax] 0.25 mg PO QID PRN #120 tab 09/11/20 [Rx] RX: Acetaminophen Tab [Tylenol] 650 mg PO Q6HR PRN tab 09/11/20 [Rx] RX: Amiodarone [Cordarone] 100 mg PO DAILY #30 tab 09/11/20 [Rx] RX: traMADol HCL 50 mg PO Q6H PRN #120 tab 09/11/20 [Rx] Follow up Appointment(s)/Referral(s): Yifan Guillen MD [STAFF PHYSICIAN] - 2 Weeks Luis Shirley MD [Primary Care Provider] - 1-2 days [facility] Visiting Nurse, [NON-STAFF] - Patient Instructions/Handouts: Implantable Cardioverter Defibrillator (DC), Implantable Cardioverter Defibrillator (GEN) Activity/Diet/Wound Care/Special Instructions: NursePatient will need a van ride home, please call [phone] to set up at d/c. Patient is agreeable to cost.
[2020-09-11] MEDS: IPRATROPIUM 0.5 MG/2.5 ML NEBU INHALATION SCH ×2 (08:40→12:19)
[2020-09-11] MEDS: METOPROLOL SUCCINATE (ER) 50 MG TAB.ER.24H PO SCH (09:26)
[2020-09-11] MEDS: SPIRONOLACTONE 25 MG TAB PO SCH (09:27)
[2020-09-11] MEDS: FUROSEMIDE 20 MG TAB PO SCH (09:27)
[2020-09-11] MEDS: APIXABAN 5 MG TAB PO SCH (09:27)
[2020-09-11] MEDS: DOCUSATE 100 MG CAP PO SCH (09:27)
[2020-09-11] MEDS: ASCORBIC ACID 500 MG TAB PO SCH (09:27)
[2020-09-11] MEDS: AMIODARONE 100 MG TAB PO SCH (09:28)
[2020-09-11] MEDS: CHOLECALCIFEROL 25 MCG (1000 IU) TABLET PO SCH (09:28)
[2020-09-11] MEDS: ALPRAZolam 0.25 MG TAB PO PRN (11:02)
[2020-09-11 11:08] VITALS: BP 131/91; PULSE 95; RESP 22; TEMP 98.4
[2020-09-11] MEDS ORDERED: VANCOMYCIN 1,750 MG in SODIUM CHLORIDE 0.9% 500 ML 500 ML IVPB ONE (12:00)
--- NOTE | 2020-09-11 12:33 | PN ---
PROGRESS NOTE DATE OF SERVICE: 09/11/2020 REASON FOR FOLLOWUP: Right groin infected cyst. INTERVAL HISTORY: Patient is afebrile. The patient is breathing comfortably. Denies having any chest pain or cough. No abdominal pain or pain to the right groin area. Right leg wound is currently healing. PHYSICAL EXAMINATION: Blood pressure 131/91 with a pulse of 95, temperature 98.4. She is 98% on room air. General description is an elderly female up in the chair in no distress. Respiratory system: Unlabored breathing, decreased breath sounds at the bases, no wheezes. Heart S1, S2. Regular rate and rhythm. Abdomen is soft, no tenderness. Right leg wound with no significant swelling, redness, or any drainage. LABS: No new labs have been obtained today. DIAGNOSTIC IMPRESSION AND PLAN: 1. Patient with right groin infected cyst that has been removed. Culture with multiple pathogens. Underlying infection has been adequately treated with no evidence of any cellulitis. Make give a short course of oral Augmentin on discharge. 2. Right lower extremity wound. Local care with dry Aquacel Silver dressing and Maninder wrap and follow up in the [facility] next week. MMODL / IJN: [id number] /
== END 2020-09-11 12:42 | DRG 315 ==
LOC: EC 14:31 → 3SCARD 16:33
PROVIDERS: ADMIT Family Medicine; ATTEND Family Medicine
PROC: 5A2204Z Restoration of Cardiac Rhythm, Single (ICD-10-PCS; 2020-09-01)
PROC: 0HBAXZZ Excision of Inguinal Skin, External Approach (ICD-10-PCS; principal; 2020-09-08)
DX: T82.897A Other specified complication of cardiac prosthetic devices, implants and grafts, initial encounter (principal); I48.19 Other persistent atrial fibrillation; I50.22 Chronic systolic (congestive) heart failure; N17.9 Acute kidney failure, unspecified; I42.8 Other cardiomyopathies; I47.2 Ventricular tachycardia; L97.929 Non-pressure chronic ulcer of unspecified part of left lower leg with unspecified severity; L97.919 Non-pressure chronic ulcer of unspecified part of right lower leg with unspecified severity; L03.90 Cellulitis, unspecified; Z16.22 Resistance to vancomycin related antibiotics; Z68.41 Body mass index [BMI] 40.0-44.9, adult; E11.65 Type 2 diabetes mellitus with hyperglycemia; E11.622 Type 2 diabetes mellitus with other skin ulcer; E11.628 Type 2 diabetes mellitus with other skin complications; I11.0 Hypertensive heart disease with heart failure; B95.2 Enterococcus as the cause of diseases classified elsewhere; B95.61 Methicillin susceptible Staphylococcus aureus infection as the cause of diseases classified elsewhere; Z79.4 Long term (current) use of insulin; L08.9 Local infection of the skin and subcutaneous tissue, unspecified; B37.2 Candidiasis of skin and nail; I25.2 Old myocardial infarction; Z20.822 Contact with and (suspected) exposure to COVID-19; E66.9 Obesity, unspecified; I25.10 Atherosclerotic heart disease of native coronary artery without angina pectoris; I08.1 Rheumatic disorders of both mitral and tricuspid valves; E78.5 Hyperlipidemia, unspecified; K21.9 Gastro-esophageal reflux disease without esophagitis; K59.00 Constipation, unspecified; F06.4 Anxiety disorder due to known physiological condition; H35.30 Unspecified macular degeneration; Z86.16 Personal history of COVID-19; Z88.5 Allergy status to narcotic agent; Z98.51 Tubal ligation status; Z91.012 Allergy to eggs; Z98.42 Cataract extraction status, left eye; Z98.41 Cataract extraction status, right eye; Z98.890 Other specified postprocedural states; Z91.040 Latex allergy status; Z91.013 Allergy to seafood; Z88.8 Allergy status to other drugs, medicaments and biological substances; Z91.048 Other nonmedicinal substance allergy status; Z79.01 Long term (current) use of anticoagulants; Z79.899 Other long term (current) drug therapy; Z86.73 Personal history of transient ischemic attack (TIA), and cerebral infarction without residual deficits; Z86.718 Personal history of other venous thrombosis and embolism; Z87.891 Personal history of nicotine dependence; Z80.1 Family history of malignant neoplasm of trachea, bronchus and lung; Z82.49 Family history of ischemic heart disease and other diseases of the circulatory system; Z84.1 Family history of disorders of kidney and ureter; Z90.89 Acquired absence of other organs
CPT/HCPCS: 36415; 71046; 80048; 80053; 80202; 82565; 83036; 83735; 84484; 85025; 85027; 85610; 85730; 87070; 87077; 87186; 87205; 87635; 93005; 93308; 94640; 94760

== ENCOUNTER 2022-01-12 18:38 | Inpatient (IN) | payer MEDICARE ==
[2022-01-12] MEDS ORDERED: LORazepam 2 MG/ML INJ IV STA (19:01)
--- NOTE | 2022-01-12 19:19 | ED ---
General Adult HPI - General Chief complaint: Fall Stated complaint: fall, hip injury Time Seen by Provider: 01/12/22 18:42 Source: patient Mode of arrival: ambulatory Limitations: physical limitation - History of Present Illness Initial comments: Dictation was produced using [employer] dictation software. please excuse any grammatical, word or spelling errors. Chief Complaint: Patient is 76-year-old female presents with left hip pain after fall History of Present Illness: Patient is a 68-year-old female she has multiple comorbidities. She presents to the emergency department after she fell. Patient is ready rather uneasy on her feet. She tripped over some trash in her kitchen causing her to fall down landing on her left hip. Patient complains of some pain in her left hip. Unable to bear weight. She states that her leg fee ls a little tingly. States that it hurts whenever stress of her feet. Patient is given ketamine by prehospital providers. The ROS documented in this emergency department record has been reviewed and confirmed by me. Those systems with pertinent positive or negative responses have been documented in the HPI. All other systems are other negative and/or noncontributory. PHYSICAL EXAM: General Impression: Alert and oriented x3, not in acute distress HEENT: Normocephalic atraumatic, extra-ocular movements intact, pupils equal and reactive to light bilaterally, mucous membranes moist. Cardiovascular: Heart regular rate and rhythm Chest: Able to complete full sentences, no retractions, no tachypnea Abdomen: abdomen soft, non-tender, non-distended, no organomegaly Musculoskeletal: Pulses present and equal in all extremities, no peripheral edema, left lower extremity is shortened and externally rotated Motor: no focal deficits noted Neurological: CN II-XII grossly intact, no focal motor or sensory deficits noted Skin: Intact with no visualized rashes Psych: Normal affect and mood ED course:76-year-old feel presents to the emergency department for left-sided hip pain after fall. Clinically there is strong concern for left hip fracture. Vital signs upon arrival shows blood pressure 213/110. Patient was given ketamine prior to arrival by prehospital providers. Laboratory evaluation obtained per it CBC, coag panel unremarkable. Metabolic panel within acceptable limits. Left hip x-ray shows left intertrochanteric fracture. Chest x-ray unremarkable. Computed tomography scan of the head and C-spine is nonacute. Patient given morphine 4 pain. Will be admitted to orthopedic surgery, Dr. Ritter after discussion with mid-level kindra buford. Medicine on consult. - Related Data Home Medications Medication Instructions Recorded Confirmed Potassium 297 mg PO W/SUPPER 03/31/18 09/01/20 metFORMIN HCL ER [Glucophage XR] 500 mg PO DAILY 03/31/18 09/01/20 Cholecalciferol [Vitamin D3 (25 2,000 unit PO DAILY 04/01/18 09/01/20 Mcg = 1000 Iu)] Potassium 99 mg PO QAM 04/01/18 09/01/20 Timolol 0.5% Ophth Soln [Timoptic 1 drop BOTH EYES BID 04/01/18 09/01/20 0.5% Ophth Soln] Apixaban [Eliquis] 5 mg PO BID 08/13/20 09/01/20 Ascorbic Acid [Vitamin C] 1,000 mg PO DAILY 08/13/20 09/01/20 Famotidine 40 mg PO DAILY PRN 08/13/20 09/01/20 Ipratropium [place] [Atrovent Hfa] 2 puff INHALATION RT-QID 08/13/20 09/01/20 Spironolactone [Aldactone] 12.5 mg PO DAILY 08/13/20 09/01/20 Insulin Glargine,Hum.rec.anlog 40 - 60 units SQ HS 09/01/20 09/01/20 [Toujeo Max Solostar] Ipratropium Nebulized [Atrovent 0.5 mg INHALATION Q6HR 09/02/20 09/02/20 Nebulized 0.2 MG/ML] Previous Rx's Medication Instructions Recorded Furosemide [Lasix] 60 mg PO BID@0900,1600 #180 tab 08/22/20 lisinopriL [Zestril] 2.5 mg PO DAILY #30 tab 08/22/20 ALPRAZolam [Xanax] 0.25 mg PO QID PRN #120 tab 09/11/20 Acetaminophen Tab [Tylenol] 650 mg PO Q6HR PRN tab 09/11/20 Amiodarone [Cordarone] 100 mg PO DAILY #30 tab 09/11/20 Metoprolol Succinate (ER) [Toprol 150 mg PO BID 30 Days #180 09/11/20 XL] tab.er.24h traMADol HCL 50 mg PO Q6H PRN #120 tab 09/11/20 Allergies Allergy/AdvReac Type Severity Reaction Status Date / Time adhesive Allergy Unknown Verified 09/01/20 16:18 aluminum Allergy Unknown Verified 09/01/20 16:18 Antihistamines - Allergy Unknown Verified 09/01/20 16:18 Ethylenediamine codeine Allergy Unknown Verified 09/01/20 16:18 epinephrine Allergy Unknown Verified 09/01/20 16:18 hydrogen peroxide Allergy Unknown Verified 09/01/20 16:18 latex Allergy Unknown Verified 09/01/20 16:18 lidocaine Allergy Unknown Verified 09/01/20 16:18 nickel Allergy Unknown Verified 09/01/20 16:18 petrolatum,white Allergy Unknown Verified 09/01/20 16:18 [From Petroleum Jelly] procaine HCl [From Novocain] Allergy Unknown Verified 09/01/20 16:18 shellfish derived [Shellfish] Allergy Unknown Verified 09/01/20 16:18 thiopental sodium Allergy Unknown Verified 09/01/20 16:18 [From Pentothal] egg yolk AdvReac Diarrhea Verified 09/01/20 16:18 Review of Systems ROS Statement: Those systems with pertinent positive or pertinent negative responses have been documented in the HPI. ROS Other: All systems not noted in ROS Statement are negative. Past Medical History Past Medical History: Atrial Fibrillation, Coronary Artery Disease (CAD), CVA/TIA, Diabetes Mellitus, Deep Vein Thrombosis (DVT), Hyperlipidemia, Hypertension, Myocardial Infarction (SD) Additional Past Medical History / Comment(s): tia, lt eye macular , COVID 19 in 05/2020, RLE wound stage 3 Last Myocardial Infarction Date:: unk History of Any Multi-Drug Resistant Organisms: None Reported Date of last positivie culture/infection: 09/05/20 MDRO Source:: VRE CYST Past Surgical History: Adenoidectomy, Hysterectomy, Orthopedic Surgery, Tonsillectomy, Tubal Ligation Additional Past Surgical History / Comment(s): pilonidal cyst twice as child, rt knee arthroscopy, krystyna cataracts,krystyna great toe sx, Additional Past Anesthesia/Blood Transfusion Reaction / Comment(s): difficulty waking up after sx. clausterphobia. 1961 blood transfusion(during child ) pt stated had palpitations after 2nd unit given Past Psychological History: No Psychological Hx Reported Smoking Status: Former smoker Past Alcohol Use History: None Reported Past Drug Use History: None Reported - Past Family History Mother Family Medical History: Cancer Additional Family Medical History / Comment(s): lung cancer Father Family Medical History: Coronary Artery Disease (CAD) Additional Family Medical History / Comment(s): heart disease, kidney disese General Exam Limitations: physical limitation Course Vital Signs 01/12/22 01/12/22 18:47 20:11 Temperature 98.9 F Pulse Rate 64 64 Respiratory 18 18 Rate Blood Pressure 213/110 184/84 O2 Sat by Pulse 96 95 Oximetry Medical Decision Making - Lab Data Result diagrams: 01/12/22 19:22 01/12/22 19:22 Lab Results 01/12/22 01/12/22 01/12/22 Range/Units 19:22 19:22 19:22 WBC 9.0 (3.8-10.6) k/uL RBC 4.54 (3.80-5.40) m/uL Hgb 14.2 (11.4-16.0) gm/dL Hct 41.0 (34.0-46.0) % MCV 90.3 (80.0-100.0) fL MCH 31.4 (25.0-35.0) pg MCHC 34.7 (31.0-37.0) g/dL RDW 13.3 (11.5-15.5) % Plt Count 206 (150-450) k/uL MPV 8.9 Neutrophils % 77 % Lymphocytes % 13 % Monocytes % 5 % Eosinophils % 2 % Basophils % 1 % Neutrophils # 6.9 (1.3-7.7) k/uL Lymphocytes # 1.2 (1.0-4.8) k/uL Monocytes # 0.4 (0-1.0) k/uL Eosinophils # 0.2 (0-0.7) k/uL Basophils # 0.1 (0-0.2) k/uL PT 10.7 (9.0-12.0) sec INR 1.0 (<1.2) APTT 23.4 (22.0-30.0) sec Sodium 136 L (137-145) mmol/L Potassium 3.8 (3.5-5.1) mmol/L Chloride 97 L (98-107) mmol/L Carbon Dioxide 27 (22-30) mmol/L Anion Gap 12 mmol/L BUN 34 H (7-17) mg/dL Creatinine 1.37 H (0.52-1.04) mg/dL Est GFR (CKD-EPI)AfAm 43 (>60 ml/min/1.73 sqM) Est GFR (CKD-EPI)NonAf 37 (>60 ml/min/1.73 sqM) Glucose 231 H (74-99) mg/dL Calcium 8.3 L (8.4-10.2) mg/dL Disposition Clinical Impression: Hip fracture Disposition: ADMITTED IP TO THIS HOSP Condition: Fair Referrals: Luis Shirley MD [Primary Care Provider] - 1-2 days Decision Time: 20:15
--- NOTE | 2022-01-12 19:29 | XR ---
EXAMINATION TYPE: XR Hip LT and AP Pelvis DATE OF EXAM: 01/12/2022 COMPARISON: NONE HISTORY: Hip pain TECHNIQUE: 3 views FINDINGS: There is acute intertrochanteric fracture of the left femur with some impaction. No disloca tion. IMPRESSION: Acute intertrochanteric fracture left femur.
[2022-01-12] MEDS ORDERED: MORPHINE SULFATE 4 MG/ML SYRINGE IVP STA (19:31)
--- NOTE | 2022-01-12 19:31 | XR ---
EXAMINATION TYPE: XR chest 1V DATE OF EXAM: 01/12/2022 COMPARISON: 09/01/2020 HISTORY: Hip fracture TECHNIQUE: Single view FINDINGS: Heart is top normal in size. Lungs are clear of infiltrate. Thoracic aorta is atheromatous. There is no pleural effusion. There are no hilar masses. IMPRESSION: No active cardiopulmonary disease. Mild cardiomegaly. No adverse change. There is improve ment in the pulmonary congestion compared to old exam.
[2022-01-12 19:32] LABS: Basophils # (A) 0.1 k/uL (0-0.2); Basophils % (A) 1 %; Eosinophils # (A) 0.2 k/uL (0-0.7); Eosinophils % (A) 2 %; HGB 14.2 gm/dL (11.4-16.0); Lymphocytes # (A) 1.2 k/uL (1.0-4.8); Lymphocytes % (A) 13 %; MCH 31.4 pg (25.0-35.0); MCHC 34.7 g/dL (31.0-37.0); MCV 90.3 fL (80.0-100.0); Mean Platelet Volume 8.9; Monocytes # (A) 0.4 k/uL (0-1.0); Monocytes % (A) 5 %; Neutrophils # (A) 6.9 k/uL (1.3-7.7); Neutrophils % (A) 77 %; Platelet Count 206 k/uL (150-450); RBC 4.54 m/uL (3.80-5.40); RDW 13.3 % (11.5-15.5)
[2022-01-12 19:43] LABS: Partial Thromboplastin Time 23.4 sec (22.0-30.0); Prothrombin Time 10.7 sec (9.0-12.0)
[2022-01-12 19:48] LABS: Calcium 8.3 mg/dL (8.4-10.2)
[2022-01-12 19:57] LABS: Potassium 3.8 mmol/L (3.5-5.1)
--- NOTE | 2022-01-12 20:11 | CT ---
EXAMINATION TYPE: CT brain zhao gonzalez DATE OF EXAM: 01/12/2022 COMPARISON: None HISTORY: Fall CT DLP: 1594.1 mGycm Automated exposure control for dose reduction was used. Images of the brain and cervical spine obtained with no contrast. The cervical vertebrae are normal alignment. There is degenerative disc space narrowing at C5-6 and C 6-7 with spurring of the endplates. No compression fracture. The facet joints are intact. There is mi nor degenerative spur formation. Prevertebral soft tissues are intact. Skull base is intact. There is normal aeration of the mastoid sinuses. There is cerebral cortical atrophy. There is no mass effect or midline shift. No sign of intracranial hemorrhage. The calvarium is intact. There is 5 mm lacunar infarct in the left caudate nucleus. IMPRESSION: Spondylotic changes in the lower cervical spine. No fracture. No sign of cervical spinal stenosis. Mild cerebral atrophy. Old lacunar infarct left caudate nucleus. No acute intracranial abnormality.
[2022-01-12] MEDS ORDERED: NALOXONE 0.4 MG/ML 1 ML VIAL IV PRN (20:12)
[2022-01-12] MEDS: SODIUM CHLORIDE 0.9% 1,000 ML IV SCH (22:44)
[2022-01-13] MEDS: MORPHINE SULFATE 4 MG/ML SYRINGE IV PRN ×2 (02:54→10:29)
[2022-01-13] MEDS: SODIUM CHLORIDE 0.9% 1,000 ML IV SCH ×3 (02:57→17:54)
[2022-01-13] MEDS: AMIODARONE 100 MG TAB PO SCH (11:17)
[2022-01-13] MEDS: METOPROLOL SUCCINATE (ER) 50 MG TAB.ER.24H PO SCH ×2 (11:17→20:24)
--- NOTE | 2022-01-13 11:51 | P.CRDCN ---
History of Present Illness History of present illness: 76-year-old lady presented to Hospital with left femur fracture and we have been consulted for preop cardiac evaluation. She has history of paroxysmal atrial fibrillation and is currently an anticoagulant that has been on hold for the last 2 days. She also has a history of cardiomyopathy with severe LV systolic dysfunction. A cardiac catheterization in the past did not reveal significant obstructive CAD. She has declined AICD. She is currently free of symptoms of angina or heart failure. Does not have any cardiac arrhythmia. In EKG shows sinus rhythm with intraventricular conduction delay and secondary ST-T wave changes. Patient is at increased but acceptable risk for surgery under anesthesia Constitutional: Denies chills. Denies fever. Eyes: Denies blurred vision. Denies pain. Ears, nose, mouth and throat: Denies headache. Denies sore throat. Cardiovascular: Denies chest pain. Denies shortness of breath. Respiratory: Denies cough. Gastrointestinal: Denies abdominal pain. Denies diarrhea. Denies nausea. Denies vomiting. Musculoskeletal: Denies myalgias. significant for fall and left femur fracture Integumentary: Denies pruritus. Denies rash. Neurological: Denies numbness. Denies weakness. Psychiatric: Denies anxiety. Denies depression. Endocrine: Denies fatigue. Denies weight change. Genitourinary: Denies burning, hematuria, frequency of urination. Hematological: No anemia or excess bleeding. General: The patient is awake and alert, in no distress, and does not appear acutely ill. Skin: Skin is warm and dry and no rashes or lesions are noted. Eye: Pupils are equal, round and reactive to light, extra-ocular movements are intact; there is normal conjunctiva bilaterally. Ears, nose, mouth and throat: There are moist mucous membranes and no oral lesions. Neck: The neck is supple, there is no tenderness or JVD. Cardiovascular: [ There is a regular rate and rhythm.][ No murmur, rub or gallop is appreciated.] Respiratory: Lungs are clear to auscultation, respirations are non-labored, breath sounds are equal. Gastrointestinal: Soft, non-distended, non-tender abdomen without masses or organomegaly noted. There is no rebound or guarding present. Bowel sounds are unremarkable. Back: There is no tenderness to palpation in the midline. There is no obvious deformity. Musculoskeletal: Normal ROM, no tenderness, There is no pedal edema. There is no calf tenderness or swelling. in able to lift the left leg Extremities:[ No edema.] Vascular: [Femoral pulse is normal.][ Posterior tibial pulses are normal .][Dorsalis pedis is palpable.] Neurological: CN II-XII intact. There are no obvious motor or sensory deficits. Speech is normal. Psychiatric: Cooperative, appropriate mood & affect, normal judgment. assessment and plan: Preop cardiac evaluation paroxysmal atrial fibrillation history of cardiomyopathy with severe LV dysfunction status post fall with left femur fracture patient is at increased risk for perioperative cardiac events I'm going to give her a dose of metoprolol in the amiodarone resume rest of her medications postoperatively. Resume the anticoagulant when feasible from surgical standpoint Past Medical History Past Medical History: Atrial Fibrillation, Coronary Artery Disease (CAD), CVA/TIA, Diabetes Mellitus, Deep Vein Thrombosis (DVT), Hyperlipidemia, Hypertension, Myocardial Infarction (NH) Additional Past Medical History / Comment(s): tia, lt eye macular , COVID 19 in 05/2020, RLE wound stage 3 Last Myocardial Infarction Date:: unk History of Any Multi-Drug Resistant Organisms: None Reported Date of last positivie culture/infection: 09/05/20 MDRO Source:: VRE CYST Past Surgical History: Adenoidectomy, Hysterectomy, Orthopedic Surgery, Tonsillectomy, Tubal Ligation Additional Past Surgical History / Comment(s): pilonidal cyst twice as child, rt knee arthroscopy, krystyna cataracts,krystyna great toe sx, Additional Past Anesthesia/Blood Transfusion Reaction / Comment(s): difficulty waking up after sx. clausterphobia. 1960 blood transfusion(during child ) pt stated had palpitations after 2nd unit given Past Psychological History: No Psychological Hx Reported Smoking Status: Former smoker Past Alcohol Use History: None Reported Past Drug Use History: None Reported - Past Family History Mother Family Medical History: Cancer Additional Family Medical History / Comment(s): lung cancer Father Family Medical History: Coronary Artery Disease (CAD) Additional Family Medical History / Comment(s): heart disease, kidney disese Medications and Allergies Home Medications Medication Instructions Recorded Confirmed Type Potassium 297 mg PO W/SUPPER 03/31/18 01/12/22 History Potassium 99 mg PO DAILY 04/01/18 01/12/22 History Apixaban [Eliquis] 5 mg PO BID 08/13/20 01/12/22 History Ascorbic Acid [Vitamin C] 1,000 mg PO BID 08/13/20 01/12/22 History Ipratropium [place] [Atrovent Hfa] 2 puff INHALATION RT-QID 08/13/20 01/12/22 History traMADol HCL 50 mg PO Q6H PRN #120 tab 09/11/20 01/12/22 Rx ALPRAZolam [Xanax] 0.25 mg PO TID PRN 01/12/22 01/12/22 History Amiodarone [Cordarone] 100 mg PO DAILY 01/12/22 01/12/22 History Atorvastatin [Lipitor] 20 mg PO DAILY 01/12/22 01/12/22 History Cholecalciferol [Vitamin D3 (25 25 mcg PO BID 01/12/22 01/12/22 History Mcg = 1000 Iu)] Dapagliflozin Propanediol [Farxiga] 10 mg PO DAILY 01/12/22 01/12/22 History Furosemide [Lasix] 60 mg PO DAILY 01/12/22 01/12/22 History Insulin Aspart [NovoLOG Flexpen] See Protocol SQ AC-TID PRN 01/12/22 01/12/22 History Insulin Glargine,Hum.rec.anlog 60 units SQ BID 01/12/22 01/12/22 History [Toujeo Max Solostar] Metoprolol Succinate (ER) [Toprol 50 mg PO BID 01/12/22 01/12/22 History XL] Sacubitril/Valsartan [Entresto 24 1 tab PO BID 01/12/22 01/12/22 History mg-26 mg Tablet] Allergies Allergy/AdvReac Type Severity Reaction Status Date / Time adhesive Allergy Unknown Verified 09/01/20 16:18 aluminum Allergy Unknown Verified 09/01/20 16:18 Antihistamines - Allergy Unknown Verified 09/01/20 16:18 Ethylenediamine codeine Allergy Unknown Verified 09/01/20 16:18 epinephrine Allergy Unknown Verified 09/01/20 16:18 hydrogen peroxide Allergy Unknown Verified 09/01/20 16:18 latex Allergy Unknown Verified 09/01/20 16:18 lidocaine Allergy Unknown Verified 09/01/20 16:18 nickel Allergy Unknown Verified 09/01/20 16:18 petrolatum,white Allergy Unknown Verified 09/01/20 16:18 [From Petroleum Jelly] procaine HCl [From Novocain] Allergy Unknown Verified 09/01/20 16:18 shellfish derived [Shellfish] Allergy Unknown Verified 09/01/20 16:18 thiopental sodium Allergy Unknown Verified 09/01/20 16:18 [From Pentothal] egg yolk AdvReac Diarrhea Verified 09/01/20 16:18 Physical Exam Vitals: Vital Signs Temp Pulse Pulse Resp BP BP Pulse Ox 01/13/22 11:04 98.8 F 68 18 131/65 93 L 01/13/22 04:19 98.3 F 73 16 128/71 95 01/13/22 03:00 17 01/13/22 02:53 98.1 F 72 17 182/73 95 01/13/22 02:05 98.1 F 78 18 169/109 98 01/13/22 02:04 78 18 169/109 96 01/13/22 00:15 18 98 01/12/22 22:17 65 18 158/75 96 01/12/22 20:11 64 18 184/84 95 01/12/22 18:47 98.9 F 64 18 213/110 96 Intake and Output 01/12/22 01/13/22 01/13/22 22:59 06:59 14:59 Output Total 500 Balance -500 Output: Urine 500 Uretheral ([place]) 500 Other: Voiding Method Indwelling Catheter Indwelling Catheter Weight 107.501 kg 107.501 kg Results 01/12/22 19:22 01/12/22 19:22 Coagulation 01/12/22 Range/Units 19: PT 10.7 (9.0-12.0) sec APTT 23.4 (22.0-30.0) sec CBC 01/12/22 Range/Units 19: WBC 9.0 (3.8-10.6) k/uL RBC 4.54 (3.80-5.40) m/uL Hgb 14.2 (11.4-16.0) gm/dL Hct 41.0 (34.0-46.0) % Plt Count 206 (150-450) k/uL Comprehensive Metabolic Panel 01/12/22 Range/Units 19:22 Sodium 136 L (137-145) mmol/L Potassium 3.8 (3.5-5.1) mmol/L Chloride 97 L (98-107) mmol/L Carbon Dioxide 27 (22-30) mmol/L BUN 34 H (7-17) mg/dL Creatinine 1.37 H (0.52-1.04) mg/dL Glucose 231 H (74-99) mg/dL Calcium 8.3 L (8.4-10.2) mg/dL Current Medications Generic Name Dose Route Start Last Admin Trade Name Freq PRN Reason Stop Dose Admin Amiodarone HCl 100 mg 01/13/22 11:00 01/13/22 11:17 Amiodarone 100 Mg Tab PO 100 mg DAILY HARIKA Administration Sodium Chloride 1,000 mls @ 130 mls/hr 01/12/22 20:15 01/13/22 10:24 Saline 0.9% IV 130 mls/hr .[id number] HARIKA Administration Metoprolol Succinate 50 mg 01/13/22 10:45 01/13/22 11:17 Metoprolol Succinate (Er) 50 Mg Tab.Er.24h PO 50 mg BID HARIKA Administration Morphine Sulfate 4 mg 01/12/22 20:12 01/13/22 10:29 Morphine Sulfate 4 Mg/Ml Syringe IV 4 mg Q4HR PRN Administration Severe Pain (Scale 7 to 10) Naloxone HCl 0.2 mg 01/12/22 20:12 Naloxone 0.4 Mg/Ml 1 Ml Vial IV Q2M PRN Opioid Reversal Ondansetron HCl 4 mg 01/12/22 20:12 Ondansetron 4 Mg/2 Ml Vial IVP Q8HR PRN Nausea And Vomiting Intake and Output 01/12/22 01/13/22 01/13/22 22:59 06:59 14:59 Output Total 500 Balance -500 Output: Urine 500 Uretheral ([place]) 500 Other: Voiding Method Indwelling Catheter Indwelling Catheter Weight 107.501 kg 107.501 kg 01/12/22 19:22 01/12/22 19:22
[2022-01-13 12:47] LABS: Glucose,Whole Blood 244 mg/dL (70-110)
[2022-01-13] MEDS ORDERED: INSULIN ASPART (NovoLOG) 100 UNIT/ML VIAL SQ ONE (13:02)
[2022-01-13] MEDS ORDERED: IV FLUID CONTINUATION 1,000 ML IV ONE (13:02)
--- NOTE | 2022-01-13 13:16 | P.HPOR ---
History of Present Illness H&P Date: 01/13/22 Chief Complaint: Left intertrochanteric femur fracture Patient is a 68-year-old female who presented to [facility] on 01/12/2022 after falling and injuring her left leg at home. Patient was in the kitchen when she turned and tripped over something and fell directly on the left-hand side. Patient was unable to weight-bear after the injury, she is brought to the hospital for further evaluation. Upon arrival imaging and lab tests are done. Images demonstrated a displaced left intertrochanteric femur fracture. I was contacted sensory staff, was able to discuss the case, including imaging studies plain attending Dr. Ritter. Patient was admitted under orthopedic care with plan for surgical intervention. Proper consults were placed for management and clearance. Patient wasn't evaluated bedside, she is resting comfortably, there are multiple family members present. She notes most of the pain in the left hip region with movement. She is also having some generalized discomfort in the knee. She denies hitting her head during the injury. She denies any new onset cervical, thoracic or lumbar pain. She denies any paresthesias of the bilateral upper or lower extremities. She denies any changes in bowel or bladder. Review of Systems Constitutional: Reports as per HPI Past Medical History Past Medical History: Atrial Fibrillation, Coronary Artery Disease (CAD), CVA/TIA, Diabetes Mellitus, Deep Vein Thrombosis (DVT), Hyperlipidemia, Hypertension, Myocardial Infarction (AR) Additional Past Medical History / Comment(s): tia, lt eye macular , COVID 19 in 05/2020, RLE wound stage 3 Last Myocardial Infarction Date:: unk History of Any Multi-Drug Resistant Organisms: None Reported Date of last positivie culture/infection: 09/05/20 MDRO Source:: VRE CYST Past Surgical History: Adenoidectomy, Hysterectomy, Orthopedic Surgery, Tonsillectomy, Tubal Ligation Additional Past Surgical History / Comment(s): pilonidal cyst twice as child, rt knee arthroscopy, krystyna cataracts,krystyna great toe sx, Additional Past Anesthesia/Blood Transfusion Reaction / Comment(s): difficulty waking up after sx. clausterphobia. 1961 blood transfusion(during child ) pt stated had palpitations after 2nd unit given Past Psychological History: No Psychological Hx Reported Smoking Status: Former smoker Past Alcohol Use History: None Reported Past Drug Use History: None Reported - Past Family History Mother Family Medical History: Cancer Additional Family Medical History / Comment(s): lung cancer Father Family Medical History: Coronary Artery Disease (CAD) Additional Family Medical History / Comment(s): heart disease, kidney disese Medications and Allergies Home Medications Medication Instructions Recorded Confirmed Type Potassium 297 mg PO W/SUPPER 03/31/18 01/12/22 History Potassium 99 mg PO DAILY 04/01/18 01/12/22 History Apixaban [Eliquis] 5 mg PO BID 08/13/20 01/12/22 History Ascorbic Acid [Vitamin C] 1,000 mg PO BID 08/13/20 01/12/22 History Ipratropium [place] [Atrovent Hfa] 2 puff INHALATION RT-QID 08/13/20 01/12/22 History traMADol HCL 50 mg PO Q6H PRN #120 tab 09/11/20 01/12/22 Rx ALPRAZolam [Xanax] 0.25 mg PO TID PRN 01/12/22 01/12/22 History Amiodarone [Cordarone] 100 mg PO DAILY 01/12/22 01/12/22 History Atorvastatin [Lipitor] 20 mg PO DAILY 01/12/22 01/12/22 History Cholecalciferol [Vitamin D3 (25 25 mcg PO BID 01/12/22 01/12/22 History Mcg = 1000 Iu)] Dapagliflozin Propanediol [Farxiga] 10 mg PO DAILY 01/12/22 01/12/22 History Furosemide [Lasix] 60 mg PO DAILY 01/12/22 01/12/22 History Insulin Aspart [NovoLOG Flexpen] See Protocol SQ AC-TID PRN 01/12/22 01/12/22 History Insulin Glargine,Hum.rec.anlog 60 units SQ BID 01/12/22 01/12/22 History [Toujeo Max Solostar] Metoprolol Succinate (ER) [Toprol 50 mg PO BID 01/12/22 01/12/22 History XL] Sacubitril/Valsartan [Entresto 24 1 tab PO BID 01/12/22 01/12/22 History mg-26 mg Tablet] Allergies Allergy/AdvReac Type Severity Reaction Status Date / Time adhesive Allergy Unknown Verified 09/01/20 16:18 aluminum Allergy Unknown Verified 09/01/20 16:18 Antihistamines - Allergy Unknown Verified 09/01/20 16:18 Ethylenediamine codeine Allergy Unknown Verified 09/01/20 16:18 epinephrine Allergy Unknown Verified 09/01/20 16:18 hydrogen peroxide Allergy Unknown Verified 09/01/20 16:18 latex Allergy Unknown Verified 09/01/20 16:18 lidocaine Allergy Unknown Verified 09/01/20 16:18 nickel Allergy Unknown Verified 09/01/20 16:18 petrolatum,white Allergy Unknown Verified 09/01/20 16:18 [From Petroleum Jelly] procaine HCl [From Novocain] Allergy Unknown Verified 09/01/20 16:18 shellfish derived [Shellfish] Allergy Unknown Verified 09/01/20 16:18 thiopental sodium Allergy Unknown Verified 09/01/20 16:18 [From Pentothal] egg yolk AdvReac Diarrhea Verified 09/01/20 16:18 Physical Examination Left lower extremity: No open lesions or sores are visualized throughout the extremity, no significant areas of soft tissue swelling or erythema Shortening and external rotation of the extremity is noted compared to the contralateral side. Generalized soreness with palpation of the proximal femur. Generalized tende rness surrounding the knee, no tenderness with palpation to the lower aspect of the extremity, this including foot and ankle Range of motion of the hip and knee were difficult due to pain from the hip, plantar flexion, dorsiflexion, EHL, FHL are intact Calf is soft, no tenderness with palpation Dorsalis pedis pulse is 2+ Results - Labs Labs: Abnormal Lab Results - Last 24 Hours (Table) 01/12/22 01/13/22 Range/Units 19: 12:45 Sodium 136 L (137-145) mmol/L Chloride 97 L (98-107) mmol/L BUN 34 H (7-17) mg/dL Creatinine 1.37 H (0.52-1.04) mg/dL Glucose 231 H (74-99) mg/dL POC Glucose (mg/dL) 244 H (70-110) mg/dL Calcium 8.3 L (8.4-10.2) mg/dL H & H 01/12/22 Range/Units 19:22 Hgb 14.2 (11.4-16.0) gm/dL Hct 41.0 (34.0-46.0) % Coagulation 01/12/22 Range/Units 19: INR 1.0 (<1.2) Result Diagrams: 01/12/22 19:22 01/12/22 19:22 - Diagnostic results Hip x-ray: report reviewed, image reviewed (Report and images reviewed of the left hip. Images demonstrate displaced femur fracture.) Assessment and Plan Assessment: Displaced left intertrochanteric femur fracture Status post fall from standing Multiple medical comorbidities Plan: I was able to discuss the case, this including but physical exam findings and imaging studies MRI attending Dr. Ritter. Patient was admitted under our care for plan for surgical intervention, more specifically an intramedullary nail of the left femur. I was able to discuss the case briefly, this including the preoperative and perioperative and postoperative aspects. Patient has a good understanding and would like to proceed. Consent was obtained prior to procedure Patient was made nothing by mouth after midnight on 01/12/2022 Assess weightbearing status after surgery, continue nonweightbearing at this time Merida catheter aas inserted, we'll continue this likely for 1-2 days DVT prophylaxis, her normal anticoagulant will be restarted after surgery Pain control, both IV and oral medication as needed Medical and cardiac recommendations PT/OT evaluation after surgery Further recommendations to follow Time with Patient: Less than 30
[2022-01-13] MEDS ORDERED: MIDAZOLAM 2 MG/2 ML VIAL ONE (13:33)
[2022-01-13] MEDS ORDERED: ROCURONIUM 10 MG/ML (5 ML VIAL) IV ONE (13:33)
[2022-01-13] MEDS ORDERED: NEOSTIGMINE 1 MG/ML 10 ML VIAL ONE (13:33)
[2022-01-13] MEDS ORDERED: GLYCOPYRROLATE 0.2 MG/ML 2 ML VIAL ONE (13:33)
[2022-01-13] MEDS ORDERED: ONDANSETRON 4 MG/2 ML VIAL ONE (13:33)
[2022-01-13] MEDS ORDERED: PROPOFOL 10 MG/ML 20 ML VIAL IV ONE (13:33)
[2022-01-13] MEDS ORDERED: fentaNYL (PF) 50 MCG/ML 2 ML AMP ONE (13:33)
[2022-01-13] MEDS ORDERED: SUCCINYLCHOLINE CHLORIDE 200 MG/10 ML VIAL IV ONE (13:33)
[2022-01-13] MEDS ORDERED: ALPRAZolam 0.25 MG TAB PO PRN (13:58)
[2022-01-13] MEDS ORDERED: SODIUM CHLORIDE 0.9% 100 ML with ceFAZolin 2,000 MG IV ONE ×2 (14:00)
[2022-01-13] MEDS ORDERED: DEXTROSE 50% SYRINGE 50 ML IVP PRN ×2 (14:02)
[2022-01-13] MEDS ORDERED: LACTATED RINGERS 1,000 ML IV ONE (14:44)
[2022-01-13] MEDS: IPRATROPIUM 0.5 MG/2.5 ML NEBU INHALATION SCH ×2 (15:25→19:53)
--- NOTE | 2022-01-13 15:44 | P.OP ---
Date of Procedure: 01/13/22 Preoperative Diagnosis: Displaced four-part left intertrochanteric femur fracture Morbid obesity Postoperative Diagnosis: Same Procedure(s) Performed: Trochanteric intramedullary nailing left intertrochanteric femur fracture Implants: Arthrex 11 mm x 33 cm trochanteric femoral nail, 105 mm compression screw, 4.5 by 36 mm distal locking screw Anesthesia: MARTIN Surgeon: Molina Ritter Call Center Team Leader #1: Sly Olguin Estimated Blood Loss (ml): 300 Pathology: none sent Condition: stable Disposition: PACU Indications for Procedure: The patient is a 76-year-old female who presents with a displaced left four-part intertrochanteric femur fracture after a fall recently. A discussion of the risks and benefits of operative intervention was made with patient. She opted to proceed with surgery. Operative risks to include infection, neurovascular injury, development of blood clots, possible development of nonunion/malunion, possible hardware failure and need for subsequent procedures was discussed. Informed consent was obtained. Operative Findings: As below Description of Procedure: The patient was brought to the operating room, and after induction general anesthesia was positioned supine on the fracture table. The left intertrochanteric femur fracture was reduced with longitudinal traction and internal rotation of the left leg. This was verified with fluoroscopy on the AP and lateral views. The left lower extremity was prepped and draped in a normal fashion. A 12 cm incision was then made starting at the tip of the greater trochanter extending proximally. Skin and subcutaneous tissues were divided sharply. Electrocautery was used for hemostasis. A starting awl was then placed into the tip of the greater trochanter with the aid of fluoroscopy. A ball-tipped guidewire was inserted. The canal was reamed distally up to 12 mm. The proximal intertrochanteric segment was reamed up to 16.5 mm. An 11 mm x 33 cm extended short trochanteric nail was then inserted over the guidewire. This was inserted to the appropriate depth. A threaded guidepin was then placed in the center/center portion of the femoral head and neck on the AP and lateral views. This did appear to be slightly posterior on the lateral view, however this was deemed acceptable. A triple reamer was used to a depth of 105 mm. A 105 mm compression screw was inserted with the aid of fluoroscopy. Good purchase was obtained. This was then locked to the nail. The compression mechanism was then activated. Traction was released. The fluoroscopic views to include AP and lateral showed adequate reduction of this complex fracture pattern and placement of the implant. The static distal locking screw was inserted with the appropriate guide. Final fluoroscopic views showed again adequate reduction of this complex fracture pattern and placement of the implant. The wounds were irrigated with normal saline. Subcu change tissues reapproximated interrupted #1 Vicryl suture. The superficial subcutaneous tissues reapproximated interrupted 2-0 Vicryl sutures. The skin was reapproximated 3-0 nylon sutures. A sterile dressing was then applied. The patient was awoken from general anesthesia and transferred to the recovery room in fair condition. Blood loss was estimated 300 mL. No complications were incurred. Sponge and needle counts were correct at the end of the case.
--- NOTE | 2022-01-13 15:51 | XR ---
EXAMINATION TYPE: XR Hip Limited LT DATE OF EXAM: 01/13/2022 COMPARISON: NONE HISTORY: Hip surgery TECHNIQUE: 3 views Fluoroscopic images FINDINGS: There is intramedullary kody and transverse screw fixing the intertrochanteric fracture of t he left femur. IMPRESSION: No, thickening process seen.
[2022-01-13] MEDS: ONDANSETRON 4 MG/2 ML VIAL IVP PRN ×2 (15:55→22:57)
[2022-01-13] MEDS: HYDROmorphone 0.5 MG/0.5 ML SYRINGE IVP ONE ×2 (16:02→16:12)
[2022-01-13] MEDS: SACUBITRIL/VALSARTAN 24 MG-26 MG TABLET PO SCH ×2 (16:21→20:25)
[2022-01-13 17:23] LABS: Glucose,Whole Blood 259 mg/dL (70-110)
[2022-01-13] MEDS: traMADol 50 MG TAB PO SCH ×2 (17:30→22:14)
[2022-01-13] MEDS: INSULIN ASPART (NovoLOG) 100 UNIT/ML VIAL SQ SCH ×2 (17:53→20:24)
[2022-01-13 20:10] LABS: Glucose,Whole Blood 317 mg/dL (70-110)
[2022-01-13] MEDS: INSULIN DETEMIR (LEVEMIR) 100 UNIT/ML SYR SQ SCH (20:24)
[2022-01-13] MEDS: CHOLECALCIFEROL 25 MCG (1000 IU) TABLET PO SCH (20:24)
--- NOTE | 2022-01-14 01:28 | CONS ---
CONSULTATION REASON FOR CONSULTATION: Advice regarding atrial fibrillation and other multiple medical issues, requested by Orthopedic Surgery. HISTORY OF PRESENT ILLNESS: This 76-year-old woman with a past medical history of diabetes mellitus, atrial fibrillation, and multiple other medical issues being followed by Dr. Shirley in the outpatient setting, had a fall and the patient suffered an acute intertrochanteric fracture of the left femur and the patient is scheduled for surgery by Orthopedic Surgery today. There is no history of any fever, rigors, or chills at this time. Cardiology is evaluating the patient. PAST MEDICAL HISTORY: Reviewed, include atrial fibrillation and diabetes mellitus. The rest of the history noted. The rest the chart is also reviewed. HOME MEDICATIONS: Reviewed, include: 1. Potassium. 2. Ultram. Doses and rest of the medication are noted. ALLERGIES: Also multiple allergies reviewed, include aluminium. FAMILY HISTORY: History of lung cancer. SOCIAL HISTORY: Previous history of smoker. REVIEW OF SYSTEMS: Fourteen-point review of systems negative except as mentioned earlier. PHYSICAL EXAMINATION: VITAL SIGNS: Pulse is 68, blood pressure 160/71, respirations 18. HEENT: Conjunctivae normal. NECK: No JVD. CARDIOVASCULAR: S1, S2 regular. RESPIRATIONS: Breath sounds diminished at the bases. No rhonchi. No crackles. ABDOMEN: Soft, nontender. LEGS: Status post left hip fracture. NERVOUS SYSTEM: No focal deficits. LABORATORY DATA: Reviewed. ASSESSMENT: 1. Status post left hip fracture. 2. Atrial fibrillation. 3. Diabetes mellitus, type 2. 4. Multiple medical issues. 5. History of deep vein thrombosis. RECOMMENDATIONS AND DISCUSSION: In this 76-year-old woman who presented with multiple medical issues, the patient is currently stable. The patient will be cleared for surgery. We will optimize the medical management. Cardiology seen the patient. I would recommend initiate anticoagulation tomorrow if agreeable to with Orthopedic Surgery. Otherwise, we will follow the patient closely with you. Dr. Shirley will follow tomorrow and monitor the blood sugars also closely. See orders for further details. MMODL / IJN: [id number] /
[2022-01-14] MEDS: MORPHINE SULFATE 4 MG/ML SYRINGE IV PRN (04:06)
[2022-01-14 07:05] LABS: Glucose,Whole Blood 208 mg/dL (70-110)
--- NOTE | 2022-01-14 07:10 | FL ---
Intraoperative/procedural fluoroscopic services were provided. Total fluoroscopy time is 2 minutes 32 seconds with a total of 3 submitted images to PACS. Please see the operative/procedural note for fur ther details.
[2022-01-14] MEDS: IPRATROPIUM 0.5 MG/2.5 ML NEBU INHALATION SCH ×4 (07:41→19:49)
[2022-01-14] MEDS: INSULIN ASPART (NovoLOG) 100 UNIT/ML VIAL SQ SCH ×4 (08:12→21:10)
[2022-01-14] MEDS: POTASSIUM CHLORIDE ER 10 MEQ TAB.ER.PRT PO SCH (08:13)
[2022-01-14] MEDS: METOPROLOL SUCCINATE (ER) 50 MG TAB.ER.24H PO SCH ×2 (08:13→21:07)
[2022-01-14] MEDS: DAPAGLIFLOZIN PROPANEDIOL 10 MG TABLET PO SCH (08:13)
[2022-01-14] MEDS: FUROSEMIDE 20 MG TAB PO SCH (08:13)
[2022-01-14] MEDS: APIXABAN 5 MG TAB PO SCH ×2 (08:13→21:07)
[2022-01-14] MEDS: traMADol 50 MG TAB PO SCH ×4 (08:13→21:07)
[2022-01-14] MEDS: CHOLECALCIFEROL 25 MCG (1000 IU) TABLET PO SCH ×2 (08:14→21:07)
[2022-01-14] MEDS: ATORVASTATIN 20 MG TAB PO SCH (08:14)
[2022-01-14] MEDS: INSULIN DETEMIR (LEVEMIR) 100 UNIT/ML SYR SQ SCH ×2 (08:15→21:10)
[2022-01-14] MEDS: SACUBITRIL/VALSARTAN 24 MG-26 MG TABLET PO SCH ×2 (08:15→21:07)
[2022-01-14] MEDS: AMIODARONE 100 MG TAB PO SCH (08:15)
--- NOTE | 2022-01-14 08:43 | P.PN ---
Subjective Progress Note Date: 01/14/22 This is a pleasant 76-year-old female who presented with a left femur fracture after a fall. Patient underwent an IM nailing of the left intertrochanteric femur fracture on 01/[address] Ritter. Patient awake alert sitting up in bed this morning eating breakfast. She denies any current complaints and states her pain is well controlled. Objective - Vital Signs Vital signs: Vital Signs Temp 98.4 F 01/14/22 03:58 Pulse 63 01/14/22 08:11 Resp 16 01/14/22 03:58 BP 100/58 01/14/22 08:11 Pulse Ox 96 01/14/22 03:58 FiO2 Intake & Output 01/13/22 01/14/22 01/14/22 18:59 06:59 18:59 Intake Total 1400 700 Output Total 1000 300 Balance 400 400 Weight 107.501 kg Intake: IV 1400 Intake, IV Titration 500 Amount Sodium Chloride 0.9% 1, 500 000 ml @ 40 mls/hr IV . Q24H REPLACED BY [facility] Rx#:[id number] Oral 200 Output: Urine 700 300 Estimated Blood Loss 300 Other: Voiding Method Indwelling Catheter Indwelling Catheter - Constitutional General appearance: Present: cooperative. Absent: no acute distress - EENT Eyes: Present: EOMI, PERRLA - Neck Neck: Present: normal ROM - Respiratory Respiratory: bilateral: CTA - Cardiovascular Rhythm: irregularly irregular - Gastrointestinal General gastrointestinal: Present: normal bowel sounds, soft - Integumentary Integumentary: Present: normal, normal turgor - Musculoskeletal Musculoskeletal Comment(s): Status post left femur fracture - Psychiatric Psychiatric: Present: A&O x's 3, appropriate affect, intact judgment & insight - Labs CBC & Chem 7: 01/12/22 19:22 01/12/22 19:22 Labs: Abnormal Lab Results - Last 24 Hours (Table) 01/12/22 01/13/22 01/13/22 Range/Units 19:22 12:45 17:22 POC Glucose (mg/dL) 244 H 259 H (70-110) mg/dL Hemoglobin A1c 9.3 H (0.0-6.0) % 01/13/22 01/14/22 Range/Units 20:06 07:04 POC Glucose (mg/dL) 317 H 208 H (70-110) mg/dL Hemoglobin A1c (0.0-6.0) % Assessment and Plan (1) Hip fracture Current Visit: Yes Status: Acute Code(s): S72.009A - FRACTURE OF UNSP PART OF NECK OF UNSP FEMUR, INIT SNOMED Code(s): 611161135 (2) Atrial fibrillation Current Visit: No Status: Acute Code(s): I48.91 - UNSPECIFIED ATRIAL FIBRILLATION SNOMED Code(s): 12798355 (3) Diabetes Current Visit: No Status: Acute Code(s): E11.9 - TYPE 2 DIABETES MELLITUS WITHOUT COMPLICATIONS SNOMED Code(s): 26223532 (4) History of recent fall Current Visit: Yes Status: Acute Code(s): Z91.81 - HISTORY OF FALLING SNOMED Code(s): 492314366 (5) Femur fracture, left Current Visit: Yes Status: Acute Code(s): S72.92XA - UNSP FRACTURE OF LEFT FEMUR, INIT ENCNTR FOR CLOSED FRACTURE SNOMED Code(s): 71868431 Plan: Continue to monitor the patient closely. May need possible placement. Monitor blood sugars closely. Nurse practitioner saw and evaluated the patient. Physician in agreement with plan.
[2022-01-14 09:13] LABS: Basophils # (A) 0.03 X 10*3/uL (0.00-0.10); Basophils % (A) 0.3 %; Eosinophils # (A) 0.09 X 10*3/uL (0.04-0.35); Eosinophils % (A) 0.9 %; HCT 26.7 % (37.2-46.3); HGB 8.6 g/dL (12.0-15.0); Immature Grans, Automated 0.4 %; Lymphocytes # (A) 1.18 X 10*3/uL (0.90-5.00); Lymphocytes % (A) 11.7 %; MCH 30.8 pg (27.0-32.0); MCHC 32.2 g/dL (32.0-37.0); MCV 95.7 fL (80.0-97.0); Mean Platelet Volume 12.1 fL (9.5-12.2); Monocytes # (A) 1.09 X 10*3/uL (0.20-1.00); Monocytes % (A) 10.8 %; NRBC Per 100 WBC 0 /100 WBCS (0.0-0.0); Neutrophils # (A) 7.65 X 10*3/uL (1.80-7.70); Neutrophils % (A) 75.9 %; Platelet Count 166 X 10*3/uL (140-440); RBC 2.79 X 10*6/uL (4.10-5.20); RDW 14.3 % (11.5-14.5); WBC 10.08 X 10*3/uL (4.50-10.00)
[2022-01-14 09:24] LABS: African American GFR (CKD) 28.8 (60.0-200.0); Anion Gap 11.7 mmol/L (10.00-18.00); BUN/Creat Ratio 20.95 Ratio (12.00-20.00); Blood Urea Nitrogen 39.8 mg/dL (9.0-27.0); Calcium 7.4 mg/dL (8.7-10.3); Carbon Dioxide 25.3 mmol/L (20.0-27.5); Non-African American GFR(CKD) 24.8 (60.0-200.0)
--- NOTE | 2022-01-14 10:10 | P.PN ---
Subjective HISTORY OF PRESENT ILLNESS: Patient is status post nailing of left femur fracture on 01/13/2022. Patient examined this morning at the bedside. Patient denies chest pain or pressure. She denies shortness of breath. She reports some mild discomfort in her hip. Vital signs are stable. PHYSICAL EXAM: VITAL SIGNS: Reviewed. GENERAL: Well-developed in no acute distress. NECK: Supple. No JVD or thyromegaly LUNGS: Respirations even and unlabored. Lungs essentially clear to auscultation bilaterally. HEART: Regular rate and rhythm. S1 and S2 heard. EXTREMITIES: Normal range of motion. No clubbing or cyanosis. Peripheral pulses intact. No lower extremity edema ASSESSMENT: Left femur fracture History of cardiomyopathy with severe LV dysfunction Paroxysmal atrial fibrillation PLAN: Continue current cardiac medications Patient is currently stable from a cardiac standpoint with no further inpatient recommendations We will sign off. Please reconsult if needed Nurse practitioner note has been reviewed by physician. Signing provider agrees with the documented findings, assessment, and plan of care. Objective - Vital Signs Vital signs: Vital Signs Temp 98.4 F 01/14/22 03:58 Pulse 63 01/14/22 08:11 Resp 16 01/14/22 03:58 BP 100/58 01/14/22 08:11 Pulse Ox 96 01/14/22 03:58 FiO2 Intake & Output 01/13/22 01/14/22 01/14/22 18:59 06:59 18:59 Intake Total 1400 700 Output Total 1000 300 Balance 400 400 Weight 107.501 kg Intake: IV 1400 Intake, IV Titration 500 Amount Sodium Chloride 0.9% 1, 500 000 ml @ 40 mls/hr IV . Q24H [facility] Rx#:[id number] Oral 200 Output: Urine 700 300 Estimated Blood Loss 300 Other: Voiding Method Indwelling Catheter Indwelling Catheter - Labs CBC & Chem 7: 01/14/22 05:03 01/14/22 05:03 Labs: Abnormal Lab Results - Last 24 Hours (Table) 01/12/22 01/13/22 01/13/22 Range/Units 19:22 12:45 17:22 WBC (4.50-10.00) X 10*3/uL RBC (4.10-5.20) X 10*6/uL Hgb (12.0-15.0) g/dL Hct (37.2-46.3) % Monocytes # (0.20-1.00) X 10*3/uL BUN (9.0-27.0) mg/dL Creatinine (0.6-1.5) mg/dL Est GFR (CKD-EPI)AfAm (60.0-200.0) Est GFR (CKD-EPI)NonAf (60.0-200.0) BUN/Creatinine Ratio (12.00-20.00) Ratio Glucose (70-110) mg/dL POC Glucose (mg/dL) 244 H 259 H (70-110) mg/dL Hemoglobin A1c 9.3 H (0.0-6.0) % Calcium (8.7-10.3) mg/dL 01/13/22 01/14/22 01/14/22 Range/Units 20:06 05:03 05:03 WBC 10.08 H (4.50-10.00) X 10*3/uL RBC 2.79 L (4.10-5.20) X 10*6/uL Hgb 8.6 L (12.0-15.0) g/dL Hct 26.7 L (37.2-46.3) % Monocytes # 1.09 H (0.20-1.00) X 10*3/uL BUN 39.8 H (9.0-27.0) mg/dL Creatinine 1.9 H (0.6-1.5) mg/dL Est GFR (CKD-EPI)AfAm 28.8 L (60.0-200.0) Est GFR (CKD-EPI)NonAf 24.8 L (60.0-200.0) BUN/Creatinine Ratio 20.95 H (12.00-20.00) Ratio Glucose 237 H (70-110) mg/dL POC Glucose (mg/dL) 317 H (70-110) mg/dL Hemoglobin A1c (0.0-6.0) % Calcium 7.4 L (8.7-10.3) mg/dL 01/14/22 Range/Units 07:04 WBC (4.50-10.00) X 10*3/uL RBC (4.10-5.20) X 10*6/uL Hgb (12.0-15.0) g/dL Hct (37.2-46.3) % Monocytes # (0.20-1.00) X 10*3/uL BUN (9.0-27.0) mg/dL Creatinine (0.6-1.5) mg/dL Est GFR (CKD-EPI)AfAm (60.0-200.0) Est GFR (CKD-EPI)NonAf (60.0-200.0) BUN/Creatinine Ratio (12.00-20.00) Ratio Glucose (70-110) mg/dL POC Glucose (mg/dL) 208 H (70-110) mg/dL Hemoglobin A1c (0.0-6.0) % Calcium (8.7-10.3) mg/dL
--- NOTE | 2022-01-14 11:09 | P.PN ---
Subjective Progress Note Date: 01/14/22 Principal diagnosis: status post IM nail left intertrochanteric femur fracture Patient evaluated at bedside, she is resting comfortably in her hospital chair. Her pain is controlled. Notable dropping hemoglobin overnight. Denies headaches, lightheadedness, chest pain or shortness of breath. Objective - Vital Signs Vital signs: Vital Signs Temp 98.4 F 01/14/22 03:58 Pulse 63 01/14/22 08:11 Resp 16 01/14/22 03:58 BP 100/58 01/14/22 08:11 Pulse Ox 96 01/14/22 03:58 FiO2 Intake & Output 01/13/22 01/14/22 01/14/22 18:59 06:59 18:59 Intake Total 1400 700 Output Total 1000 300 Balance 400 400 Weight 107.501 kg Intake: IV 1400 Intake, IV Titration 500 Amount Sodium Chloride 0.9% 1, 500 000 ml @ 40 mls/hr IV . Q24H [facility] Rx#:[id number] Oral 200 Output: Urine 700 300 Estimated Blood Loss 300 Other: Voiding Method Indwelling Catheter Indwelling Catheter - Exam Left lower extremity: Postoperative bandages in good condition and position, no obvious drainage. Obvious ecchymosis and swelling of the proximal femur. Range of motion at the knee, foot and ankle are intact. Calf is soft, no tenderness with palpation. Sensory exam to light touch set extremity is intact - Labs CBC & Chem 7: 01/14/22 05:03 01/14/22 05:03 Labs: Abnormal Lab Results - Last 24 Hours (Table) 01/12/22 01/13/22 01/13/22 Range/Units 19:22 12:45 17:22 WBC (4.50-10.00) X 10*3/uL RBC (4.10-5.20) X 10*6/uL Hgb (12.0-15.0) g/dL Hct (37.2-46.3) % Monocytes # (0.20-1.00) X 10*3/uL BUN (9.0-27.0) mg/dL Creatinine (0.6-1.5) mg/dL Est GFR (CKD-EPI)AfAm (60.0-200.0) Est GFR (CKD-EPI)NonAf (60.0-200.0) BUN/Creatinine Ratio (12.00-20.00) Ratio Glucose (70-110) mg/dL POC Glucose (mg/dL) 244 H 259 H (70-110) mg/dL Hemoglobin A1c 9.3 H (0.0-6.0) % Calcium (8.7-10.3) mg/dL 01/13/22 01/14/22 01/14/22 Range/Units 20:06 05:03 05:03 WBC 10.08 H (4.50-10.00) X 10*3/uL RBC 2.79 L (4.10-5.20) X 10*6/uL Hgb 8.6 L (12.0-15.0) g/dL Hct 26.7 L (37.2-46.3) % Monocytes # 1.09 H (0.20-1.00) X 10*3/uL BUN 39.8 H (9.0-27.0) mg/dL Creatinine 1.9 H (0.6-1.5) mg/dL Est GFR (CKD-EPI)AfAm 28.8 L (60.0-200.0) Est GFR (CKD-EPI)NonAf 24.8 L (60.0-200.0) BUN/Creatinine Ratio 20.95 H (12.00-20.00) Ratio Glucose 237 H (70-110) mg/dL POC Glucose (mg/dL) 317 H (70-110) mg/dL Hemoglobin A1c (0.0-6.0) % Calcium 7.4 L (8.7-10.3) mg/dL 01/14/22 Range/Units 07:04 WBC (4.50-10.00) X 10*3/uL RBC (4.10-5.20) X 10*6/uL Hgb (12.0-15.0) g/dL Hct (37.2-46.3) % Monocytes # (0.20-1.00) X 10*3/uL BUN (9.0-27.0) mg/dL Creatinine (0.6-1.5) mg/dL Est GFR (CKD-EPI)AfAm (60.0-200.0) Est GFR (CKD-EPI)NonAf (60.0-200.0) BUN/Creatinine Ratio (12.00-20.00) Ratio Glucose (70-110) mg/dL POC Glucose (mg/dL) 208 H (70-110) mg/dL Hemoglobin A1c (0.0-6.0) % Calcium (8.7-10.3) mg/dL Assessment and Plan Assessment: Status post IM nail left intertrochanteric femur fracture Acute blood loss anemia, expected surgical outcome Status post fall from standing Multiple medical comorbidities Plan: Pain control, continue with current medications DVT prophylaxis, her normal anticoagulant has been resumed Toe-touch weightbearing, utilize walker all times Continue with PT/OT Ferrous sulfate 325 mg twice a day has been started, continue to monitor hemoglobin Encourage incentive spirometer Okay to discontinue urinary catheter later this afternoon or early 01/15/2022 Medical recommendations Discharge planning: Anticipate discharge to rehab the next 2448 hours Time with Patient: Less than 30
[2022-01-14 11:18] LABS: Glucose,Whole Blood 211 mg/dL (70-110)
[2022-01-14 17:19] LABS: Glucose,Whole Blood 218 mg/dL (70-110)
[2022-01-14] MEDS: FERROUS SULFATE 325 MG TAB PO SCH (17:33)
--- NOTE | 2022-01-14 18:27 | CA ---
Transthoracic Echo Report Name: Bel Seth Age: 76 Gender: F : 1945 Exam Date: 01/14/2022 11:03 Exam Location: [place] [facility] Ht (in): 62 Wt (lb): 237 Ordering Physician: Jaye Lowe Attending/Referring Phys: Acid Condenser Sugar Burnett RDCS Procedure CPT: Indications: pre-op [place] Cardiac Hx: Technical Quality: Contrast 1: Total Dose (mL): Contrast 2: Total Dose (mL): MEASUREMENTS (Male / Female) Normal Values 2D ECHO LV Diastolic Diameter PLAX 4.4 cm 4.2 - 5.9 / 3.9 - 5.3 cm LV Systolic Diameter PLAX 3.9 cm IVS Diastolic Thickness 1.4 cm 0.6 - 1.0 / 0.6 - 0.9 cm LVPW Diastolic Thickness 1.6 cm 0.6 - 1.0 / 0.6 - 0.9 cm LV Relative Wall Thickness 0.7 RV Internal Dim ED PLAX 3.1 cm LA Systolic Diameter LX 4.8 cm 3.0 - 4.0 / 2.7 - 3.8 cm LA Volume 96.3 cm??? 18 - 58 / 22 - 52 cm??? M-MODE Aortic Root Diameter MM 4.0 cm LA Systolic Diameter MM 4.0 cm LA Ao Ratio MM 1.0 MV E Point Septal Separation 0.9 cm AV Cusp Separation MM 1.6 cm DOPPLER MV Area PHT 3.5 cm??? Mitral E Point Velocity 73.6 cm/s Mitral A Point Velocity 76.2 cm/s Mitral E to A Ratio 1.0 MV Deceleration Time 217.7 ms MV E' Velocity 4.0 cm/s Mitral E to MV E' Ratio 18.3 FINDINGS Left Ventricle Left ventricular ejection fraction is estimated at 50-55%. Moderately increased left ventricular wall thickness. Right Ventricle Normal right ventricular size and function. Right Atrium Normal right atrial size. Left Atrium Severely increased left atrial diameter. Severely increased left atrial volume. Mildly increased left atrial area. Mitral Valve Structurally normal mitral valve. Aortic Valve Trileaflet aortic valve. Tricuspid Valve Structurally normal tricuspid valve. Mild tricuspid regurgitation. Pulmonic Valve Structurally normal pulmonic valve. Pericardium Normal pericardium. Aorta Normal size aortic root and proximal ascending aorta. CONCLUSIONS LVH with preserved systolic function Previewed by: Dr. Wero Pete MD (Electronically Signed) Final Date: 14 January 2022 18:25
[2022-01-14 20:33] LABS: Glucose,Whole Blood 252 mg/dL (70-110)
[2022-01-15] MEDS: MORPHINE SULFATE 4 MG/ML SYRINGE IV PRN (05:13)
[2022-01-15 06:38] LABS: ALT 14 U/L (4-34); African American GFR (CKD) 25 (>60 ml/min/1.73 sqM); Albumin 2.8 g/dL (3.5-5.0); Anion Gap 10 mmol/L; Blood Urea Nitrogen 50 mg/dL (7-17); Calcium 7.5 mg/dL (8.4-10.2); Carbon Dioxide 21 mmol/L (22-30); Chloride 95 mmol/L (98-107); Globulin 2.7 g/dL; Glucose 140 mg/dL (74-99); Non-African American GFR(CKD) 22 (>60 ml/min/1.73 sqM); Sodium 126 mmol/L (137-145); Total Protein 5.5 g/dL (6.3-8.2)
[2022-01-15 06:41] LABS: AST 38 U/L (14-36); Alkaline Phosphatase 58 U/L (38-126); Potassium 4.3 mmol/L (3.5-5.1)
[2022-01-15 07:23] LABS: Glucose,Whole Blood 140 mg/dL (70-110)
[2022-01-15] MEDS: IPRATROPIUM 0.5 MG/2.5 ML NEBU INHALATION SCH ×4 (07:34→19:42)
[2022-01-15] MEDS: INSULIN ASPART (NovoLOG) 100 UNIT/ML VIAL SQ SCH ×4 (07:47→20:51)
--- NOTE | 2022-01-15 08:46 | P.PN ---
Subjective Progress Note Date: 01/15/22 Principal diagnosis: decreased urinary output. The patient is postop day #3 for left hip fracture repair. Decreased urinary output was noted this last shift. We will increase her IV fluid. Slight hyponatremia is also noted. Underlying history diabetes which is fairly's table . Echocardiogram is nominal Objective - Vital Signs Vital signs: Vital Signs Temp 98.2 F 01/15/22 05:16 Pulse 88 01/15/22 07:42 Resp 16 01/15/22 05:16 BP 98/48 01/15/22 05:16 Pulse Ox 98 01/15/22 05:16 FiO2 Intake & Output 01/14/22 01/15/22 01/15/22 18:59 06:59 18:59 Intake Total 500 Output Total 700 Balance -700 500 Intake: Intake, IV Titration 400 Amount Sodium Chloride 0.9% 1, 400 000 ml @ 40 mls/hr IV . Q24H [facility] Rx#:[id number] Oral 100 Output: Urine 700 Other: Voiding Method Indwelling Catheter Bedside Commode # Voids 0 - Constitutional General appearance: Present: obese - EENT Eyes: Absent: abnormal pupil - Neck Neck: Absent: lymphadenopathy - Respiratory Respiratory: bilateral: diminished - Cardiovascular Rhythm: regular Heart sounds: normal: S1, S2 Abnormal Heart Sounds: Absent: S3 Gallop - Gastrointestinal General gastrointestinal: Present: soft. Absent: tenderness - Psychiatric Psychiatric: Present: A&O x's 3 - Labs CBC & Chem 7: 01/14/22 05:03 01/15/22 05:59 Labs: Abnormal Lab Results - Last 24 Hours (Table) 01/14/22 01/14/22 01/14/22 Range/Units 05:03 05:03 11:16 WBC 10.08 H (4.50-10.00) X 10*3/uL RBC 2.79 L (4.10-5.20) X 10*6/uL Hgb 8.6 L (12.0-15.0) g/dL Hct 26.7 L (37.2-46.3) % Monocytes # 1.09 H (0.20-1.00) X 10*3/uL Sodium (137-145) mmol/L Chloride (98-107) mmol/L Carbon Dioxide (22-30) mmol/L BUN 39.8 H (9.0-27.0) mg/dL Creatinine 1.9 H (0.6-1.5) mg/dL Est GFR (CKD-EPI)AfAm 28.8 L (60.0-200.0) Est GFR (CKD-EPI)NonAf 24.8 L (60.0-200.0) BUN/Creatinine Ratio 20.95 H (12.00-20.00) Ratio Glucose 237 H (70-110) mg/dL POC Glucose (mg/dL) 211 H (70-110) mg/dL Calcium 7.4 L (8.7-10.3) mg/dL AST (14-36) U/L Total Protein (6.3-8.2) g/dL Albumin (3.5-5.0) g/dL 01/14/22 01/14/22 01/15/22 Range/Units 17:17 20:21 05:59 WBC (4.50-10.00) X 10*3/uL RBC (4.10-5.20) X 10*6/uL Hgb (12.0-15.0) g/dL Hct (37.2-46.3) % Monocytes # (0.20-1.00) X 10*3/uL Sodium 126 L (137-145) mmol/L Chloride 95 L (98-107) mmol/L Carbon Dioxide 21 L (22-30) mmol/L BUN 50 H (9.0-27.0) mg/dL Creatinine 2.13 H (0.6-1.5) mg/dL Est GFR (CKD-EPI)AfAm (60.0-200.0) Est GFR (CKD-EPI)NonAf (60.0-200.0) BUN/Creatinine Ratio (12.00-20.00) Ratio Glucose 140 H (70-110) mg/dL POC Glucose (mg/dL) 218 H 252 H (70-110) mg/dL Calcium 7.5 L (8.7-10.3) mg/dL AST 38 H (14-36) U/L Total Protein 5.5 L (6.3-8.2) g/dL Albumin 2.8 L (3.5-5.0) g/dL 01/15/22 Range/Units 07:21 WBC (4.50-10.00) X 10*3/uL RBC (4.10-5.20) X 10*6/uL Hgb (12.0-15.0) g/dL Hct (37.2-46.3) % Monocytes # (0.20-1.00) X 10*3/uL Sodium (137-145) mmol/L Chloride (98-107) mmol/L Carbon Dioxide (22-30) mmol/L BUN (9.0-27.0) mg/dL Creatinine (0.6-1.5) mg/dL Est GFR (CKD-EPI)AfAm (60.0-200.0) Est GFR (CKD-EPI)NonAf (60.0-200.0) BUN/Creatinine Ratio (12.00-20.00) Ratio Glucose (70-110) mg/dL POC Glucose (mg/dL) 140 H (70-110) mg/dL Calcium (8.7-10.3) mg/dL AST (14-36) U/L Total Protein (6.3-8.2) g/dL Albumin (3.5-5.0) g/dL Assessment and Plan (1) Urination decrease Current Visit: Yes Status: Acute Code(s): R34 - ANURIA AND OLIGURIA SNOMED Code(s): 60711262 (2) Femur fracture, left Current Visit: Yes Status: Acute Code(s): S72.92XA - UNSP FRACTURE OF LEFT FEMUR, INIT ENCNTR FOR CLOSED FRACTURE SNOMED Code(s): 52135683 (3) Atrial fibrillation Current Visit: No Status: Acute Code(s): I48.91 - UNSPECIFIED ATRIAL FIBRILLATION SNOMED Code(s): 76390705 (4) Diabetes Current Visit: No Status: Acute Code(s): E11.9 - TYPE 2 DIABETES MELLITUS WITHOUT COMPLICATIONS SNOMED Code(s): 29267651 Plan: Go ahead and increase IV fluid. Check CMP in a.m. Consult nephrology. I do suspect this is related to stress from surgery. New prep see orders otherwise.
[2022-01-15] MEDS: FERROUS SULFATE 325 MG TAB PO SCH ×2 (08:55→18:07)
[2022-01-15] MEDS: APIXABAN 5 MG TAB PO SCH ×2 (08:55→20:59)
[2022-01-15] MEDS: CHOLECALCIFEROL 25 MCG (1000 IU) TABLET PO SCH ×2 (08:55→21:00)
[2022-01-15] MEDS: traMADol 50 MG TAB PO SCH ×4 (08:55→20:59)
[2022-01-15] MEDS: DAPAGLIFLOZIN PROPANEDIOL 10 MG TABLET PO SCH (08:55)
[2022-01-15] MEDS: INSULIN DETEMIR (LEVEMIR) 100 UNIT/ML SYR SQ SCH ×2 (08:56→21:00)
[2022-01-15] MEDS: ATORVASTATIN 20 MG TAB PO SCH (08:56)
[2022-01-15] MEDS: POTASSIUM CHLORIDE ER 10 MEQ TAB.ER.PRT PO SCH (08:56)
[2022-01-15] MEDS: METOPROLOL SUCCINATE (ER) 50 MG TAB.ER.24H PO SCH ×3 (08:56→21:00)
[2022-01-15] MEDS: FUROSEMIDE 20 MG TAB PO SCH ×2 (08:56→11:18)
[2022-01-15] MEDS: AMIODARONE 100 MG TAB PO SCH (08:56)
[2022-01-15] MEDS: SACUBITRIL/VALSARTAN 24 MG-26 MG TABLET PO SCH ×2 (08:57→09:03)
[2022-01-15] MEDS: SODIUM CHLORIDE 0.9% 1,000 ML IV SCH ×3 (08:58→14:25)
--- NOTE | 2022-01-15 10:27 | P.PN ---
Subjective Progress Note Date: 01/15/22 Principal diagnosis: Left hip IT fracture Patient was seen at bedside this morning resting comfortably lying in semirecumbent position with dressing to left lower extremity over lateral hip. Patient says physical therapy has not been via this morning. Patient says she is feeling little bit better today in regards to pain. Patient says she is still having difficulty moving the left lower extremity on her own due to the pain in the hip. Patient says she did work with physical therapy yesterday and was able stand up at bedside and bear weight on the left lower extremity. Patient says she did talk to patient case manager yesterday about going to rehab. I did talk to patient's nurse and ray/catheter was removed yesterday and patient was unable to urinate since catheter was removed. Medicine has consulted nephrology due to elevated creatinine and kidney function tests. Patient denies chest pain, fever, shortness breath, nausea, vomiting, change in vision, loss of bowel/bladder control. Objective - Vital Signs Vital signs: Vital Signs Temp 98.2 F 01/15/22 05:16 Pulse 65 01/15/22 09:06 Resp 16 01/15/22 05:16 BP 91/46 01/15/22 09:06 Pulse Ox 98 01/15/22 05:16 FiO2 Intake & Output 01/14/22 01/15/22 01/15/22 18:59 06:59 18:59 Intake Total 500 Output Total 700 Balance -700 500 Intake: Intake, IV Titration 400 Amount Sodium Chloride 0.9% 1, 400 000 ml @ 40 mls/hr IV . Q24H [facility] Rx#:[id number] Oral 100 Output: Urine 700 Other: Voiding Method Indwelling Catheter Bedside Commode # Voids 0 - Exam Bulky dressing is present over the left lateral hip. There is minimal to no drainage from the incisions at this time. Incision appears to be healing well. Patient does have moderate tenderness to palpation over the incision on the left hip. Patient is nontender to palpation throughout rest exam. Sensation is equal, symmetric, bilaterally intact throughout the upper and lower extremities. Patient has full range of motion in right lower extremity and bilateral upper extremities on exam. Patient has full range of motion in left lower extremity on ankle dorsi/plantar flexion. Patient is able to wiggle toes and left lower extremity. Patient is unable to actively flex/extend left knee and flex/extend left hip due to pain at this time. Patient does have good passive range of motion of left knee and left hip on exam. 5/5 in all major motor is in bilateral upper extremities and right lower extremity. 4-/5 in resisted left knee flexion/extension in left hip flexion/extension. Radial pulses and dorsalis pedis pulses intact, bilaterally. Cap refill under 3 seconds in digits upper extremities. Negative Homans bilaterally. - Labs CBC & Chem 7: 01/14/22 05:03 01/15/22 05:59 Labs: Abnormal Lab Results - Last 24 Hours (Table) 01/14/22 01/14/22 01/14/22 Range/Units 11:16 17:17 20:21 Sodium (137-145) mmol/L Chloride (98-107) mmol/L Carbon Dioxide (22-30) mmol/L BUN (7-17) mg/dL Creatinine (0.52-1.04) mg/dL Glucose (74-99) mg/dL POC Glucose (mg/dL) 211 H 218 H 252 H (70-110) mg/dL Calcium (8.4-10.2) mg/dL AST (14-36) U/L Total Protein (6.3-8.2) g/dL Albumin (3.5-5.0) g/dL 01/15/22 01/15/22 Range/Units 05:59 07:21 Sodium 126 L (137-145) mmol/L Chloride 95 L (98-107) mmol/L Carbon Dioxide 21 L (22-30) mmol/L BUN 50 H (7-17) mg/dL Creatinine 2.13 H (0.52-1.04) mg/dL Glucose 140 H (74-99) mg/dL POC Glucose (mg/dL) 140 H (70-110) mg/dL Calcium 7.5 L (8.4-10.2) mg/dL AST 38 H (14-36) U/L Total Protein 5.5 L (6.3-8.2) g/dL Albumin 2.8 L (3.5-5.0) g/dL Assessment and Plan Assessment: 1. Left hip IT fracture - Postoperative day #2 status post left hip IM nail Plan: 1. Left hip IT fracture - left hip IM nail surgery performed 01/13/2022. Patient stable at bedside this morning. Discharge to rehab pending at this time. Medicine has consulted nephrology due to elevated creatinine/ kidney function tests. Patient is stable from orthopedic standpoint for discharge to rehab once auth is completed. We'll continue to follow patient during her stay in hospital. 2. Appreciate medical management 3. Pain management - Tramadol; Morphine 4. DVT prophylaxis - Eliquis 5 mg BID 5. GI prophylaxis - senna 6. PT/OT - weightbearing as tolerated with walker 7. Encourage incentive spirometer use 8. Discharge planning - discharge to rehab pending auth Time with Patient: Less than 30
--- NOTE | 2022-01-15 11:09 | P.NPCON ---
History of Present Illness - Reason for Consult acute renal failure, hyponatremia - History of Present Illness Reason for consultation: Acute kidney injury and hyponatremia History of present illness: Patient is a 76-year-old female seen in consultation for acute kidney injury and hyponatremia. Patient's creatinine on admission was 1.37 on admission and is up to today. Patient's baseline creatinine is in the range of 1.2-1.4. Patient states she does not follow with nephrology outpatient. Patient presented to the hospital after she sustained a fall and was having left hip pain. She was noted to have left hip fracture and underwent intramedullary nailing on 01/13/2022. Patient's blood pressure has been on the lower side and was 91/46 this morning. Merida catheter has been removed. Urine output is documented as 1300 mL of yesterday and 700 mL as of today. Oral intake has been fair. She does admit to drinking quite a bit of water. She's currently receiving normal saline at 75 mL an hour. She does a history of diabetes. Blood sugars are fairly stable. She denies history of coronary artery disease. Denies use of nonsteroidals. Denies family history of renal disease. She is currently receiving farxiga, entresto and lasix as well. No vomiting or diarrhea. No fever or chills. Vital signs are stable. Blood pressure low. General: Awake. No acute distress. HEENT: Head exam is unremarkable. LUNGS: Breath sounds decreased. HEART: Rate and Rhythm are regular. ABDOMEN: Soft, no distention. EXTREMITITES: No edema. Past Medical History Past Medical History: Atrial Fibrillation, Coronary Artery Disease (CAD), CVA/TIA, Diabetes Mellitus, Deep Vein Thrombosis (DVT), Hyperlipidemia, Hypertension, Myocardial Infarction ([place]) Additional Past Medical History / Comment(s): tia, lt eye macular , COVID 19 in 05/2020, RLE wound stage 3 Last Myocardial Infarction Date:: unk History of Any Multi-Drug Resistant Organisms: None Reported Date of last positivie culture/infection: 09/05/20 MDRO Source:: VRE CYST Past Surgical History: Adenoidectomy, Hysterectomy, Orthopedic Surgery, Tonsillectomy, Tubal Ligation Additional Past Surgical History / Comment(s): pilonidal cyst twice as child, rt knee arthroscopy, krystyna cataracts,krystyna great toe sx, Additional Past Anesthesia/Blood Transfusion Reaction / Comment(s): difficulty waking up after sx. clausterphobia. 1961 blood transfusion(during child ) pt stated had palpitations after 2nd unit given Past Psychological History: No Psychological Hx Reported Smoking Status: Former smoker Past Alcohol Use History: None Reported Past Drug Use History: None Reported - Past Family History Mother Family Medical History: Cancer Additional Family Medical History / Comment(s): lung cancer Father Family Medical History: Coronary Artery Disease (CAD) Additional Family Medical History / Comment(s): heart disease, kidney disese Medications and Allergies Home Medications Medication Instructions Recorded Confirmed Type Potassium 297 mg PO W/SUPPER 03/31/18 01/12/22 History Potassium 99 mg PO DAILY 04/01/18 01/12/22 History Apixaban [Eliquis] 5 mg PO BID 08/13/20 01/12/22 History Ascorbic Acid [Vitamin C] 1,000 mg PO BID 08/13/20 01/12/22 History Ipratropium [place] [Atrovent Hfa] 2 puff INHALATION RT-QID 08/13/20 01/12/22 History traMADol HCL 50 mg PO Q6H PRN #120 tab 09/11/20 01/12/22 Rx ALPRAZolam [Xanax] 0.25 mg PO TID PRN 01/12/22 01/12/22 History Amiodarone [Cordarone] 100 mg PO DAILY 01/12/22 01/12/22 History Atorvastatin [Lipitor] 20 mg PO DAILY 01/12/22 01/12/22 History Cholecalciferol [Vitamin D3 (25 25 mcg PO BID 01/12/22 01/12/22 History Mcg = 1000 Iu)] Dapagliflozin Propanediol [Farxiga] 10 mg PO DAILY 01/12/22 01/12/22 History Furosemide [Lasix] 60 mg PO DAILY 01/12/22 01/12/22 History Insulin Aspart [NovoLOG Flexpen] See Protocol SQ AC-TID PRN 01/12/22 01/12/22 History Insulin Glargine,Hum.rec.anlog 60 units SQ BID 01/12/22 01/12/22 History [Toujeo Max Solostar] Metoprolol Succinate (ER) [Toprol 50 mg PO BID 01/12/22 01/12/22 History XL] Sacubitril/Valsartan [Entresto 24 1 tab PO BID 01/12/22 01/12/22 History mg-26 mg Tablet] Allergies Allergy/AdvReac Type Severity Reaction Status Date / Time adhesive Allergy Unknown Verified 09/01/20 16:18 aluminum Allergy Unknown Verified 09/01/20 16:18 Antihistamines - Allergy Unknown Verified 09/01/20 16:18 Ethylenediamine codeine Allergy Unknown Verified 09/01/20 16:18 epinephrine Allergy Unknown Verified 09/01/20 16:18 hydrogen peroxide Allergy Unknown Verified 09/01/20 16:18 latex Allergy Unknown Verified 09/01/20 16:18 lidocaine Allergy Unknown Verified 09/01/20 16:18 nickel Allergy Unknown Verified 09/01/20 16:18 petrolatum,white Allergy Unknown Verified 09/01/20 16:18 [From Petroleum Jelly] procaine HCl [From Novocain] Allergy Unknown Verified 09/01/20 16:18 shellfish derived [Shellfish] Allergy Unknown Verified 09/01/20 16:18 thiopental sodium Allergy Unknown Verified 09/01/20 16:18 [From Pentothal] egg yolk AdvReac Diarrhea Verified 09/01/20 16:18 Physical Exam Vitals: Vital Signs Temp Pulse Pulse Pulse Resp BP Pulse Ox 01/15/22 09:06 65 91/46 01/15/22 07:42 88 01/15/22 07:35 84 01/15/22 05:16 98.2 F 61 16 98/48 98 01/14/22 20:55 98 F 66 16 133/62 98 01/14/22 20:00 72 01/14/22 19:50 72 01/14/22 19:45 16 01/14/22 16:01 68 01/14/22 15:52 64 01/14/22 13:00 97.9 F 59 L 18 107/65 98 01/14/22 12:00 74 01/14/22 11:44 72 Intake and Output 01/14/22 01/15/22 01/15/22 22:59 06:59 14:59 Intake Total 500 Output Total 700 Balance -700 500 Intake: Intake, IV Titration 400 Amount Sodium Chloride 0.9% 1, 400 000 ml @ 40 mls/hr IV . Q24H [facility] Rx#:[id number] Oral 100 Output: Urine 700 Other: Voiding Method Bedside Commode # Voids 0 Results - Lab Results Most recent lab results Calcium 7.5 mg/dL (8.4-10.2) L 01/15/22 05:59 01/14/22 05:03 01/15/22 05:59 Assessment and Plan Plan: Assessment: 1. Acute kidney injury secondary to ATN secondary to hypotension. Creatinine was 1.37 on admission and is 2.13 today. Rule out urinary retention. 2. Chronic kidney disease stage IIIa with baseline creatinine in the range of 1.2-1.4 secondary to nephrosclerosis and diabetic kidney disease. 3. Hyponatremia secondary to acute kidney injury. 4. Left fracture status post intramedullary nailing this admission. 5. Diabetes mellitus. 6. Anemia. Rule out iron deficiency. Plan: Maintain IV fluids. Encourage oral intake. 1200 mL fluid restriction. Check serum and urine osmolality and urine sodium level. Check TSH. Check bladder scan to rule out urinary retention. Stop Lasix, entresto and farxiga for now. Avoid nephrotoxins. Continue to monitor renal function and urine output. Check urinalysis. Check renal ultrasound. Check iron studies. Thank you for the consultation. I will continue to follow the patient with you during her hospital stay.
[2022-01-15 11:28] LABS: Glucose,Whole Blood 120 mg/dL (70-110)
--- NOTE | 2022-01-15 13:39 | US ---
EXAMINATION TYPE: US kidneys/renal and bladder DATE OF EXAM: 01/15/2022 COMPARISON: NONE CLINICAL HISTORY: chaitanya. CHAITANYA EXAM MEASUREMENTS: Right Kidney: 11.7 x 4.9 x 4.7 cm Left Kidney: 10.9 x 5.1 x 4.3 cm Right Kidney: no evidence of hydronephrosis Left Kidney: no evidence of hydronephrosis Bladder: wnl Bilateral Jets seen: no There is no evidence for hydronephrosis at this point in time. No nephrolithiasis is seen. No dany s are identified. Cortical medullary differentiation is maintained. The urinary bladder is anechoic. Bilateral ureteral jets are not seen. IMPRESSION: Renal sizes as described. No hydronephrosis evident.
[2022-01-15 13:45] LABS: Appearance,Urine Clear (Clear); Bacteria,Urine Rare /hpf; Bilirubin,Urine Negative (Negative); Blood,Urine Trace (Negative); Budding Yeast,Urine Many /hpf; Color,Urine Yellow; Glucose,Urine (UA) 3+ (Negative); Hyaline Casts,Urine 3 /lpf (0-2); Ketones,Urine Negative (Negative); Leukocyte Esterase,Urine Small (Negative); Mucus,Urine Rare /hpf; Nitrite,Urine Negative (Negative); Protein,Urine Trace (Negative); RBC,Urine 3 /hpf (0-5); Specific Gravity,Urine 1.013 (1.001-1.035); Squamous Epithelial Cell,Urine <1 /hpf (0-4); Urobilinogen,Urine <2.0 mg/dL (<2.0); WBC,Urine 4 /hpf (0-5)
[2022-01-15 16:10] VITALS: BMI 43.3
[2022-01-15 17:34] LABS: Glucose,Whole Blood 99 mg/dL (70-110)
[2022-01-15 20:26] LABS: Glucose,Whole Blood 104 mg/dL (70-110)
[2022-01-16 01:06] LABS: Glucose,Whole Blood 108 mg/dL (70-110)
[2022-01-16 03:48] LABS: % Iron Saturation 13.37 (12.00-45.00)
[2022-01-16 07:03] LABS: Glucose,Whole Blood 100 mg/dL (70-110)
[2022-01-16] MEDS: IPRATROPIUM 0.5 MG/2.5 ML NEBU INHALATION SCH ×4 (07:46→20:22)
[2022-01-16] MEDS: INSULIN ASPART (NovoLOG) 100 UNIT/ML VIAL SQ SCH ×4 (08:09→21:04)
[2022-01-16] MEDS: METOPROLOL SUCCINATE (ER) 50 MG TAB.ER.24H PO SCH ×2 (08:10→21:05)
[2022-01-16] MEDS: APIXABAN 5 MG TAB PO SCH ×2 (08:10→21:04)
[2022-01-16] MEDS: traMADol 50 MG TAB PO SCH ×4 (08:10→21:05)
[2022-01-16] MEDS: AMIODARONE 100 MG TAB PO SCH (08:10)
[2022-01-16] MEDS: FERROUS SULFATE 325 MG TAB PO SCH ×2 (08:11→16:46)
[2022-01-16] MEDS: SENNOSIDES 8.6 MG TAB PO SCH (08:11)
[2022-01-16] MEDS: CHOLECALCIFEROL 25 MCG (1000 IU) TABLET PO SCH ×2 (08:11→21:04)
[2022-01-16] MEDS: ATORVASTATIN 20 MG TAB PO SCH (08:11)
[2022-01-16 09:05] LABS: MCH 30.7 pg (27.0-32.0); MCHC 33.3 g/dL (32.0-37.0); Mean Platelet Volume 11.2 fL (9.5-12.2); NRBC Per 100 WBC 0 /100 WBCS (0.0-0.0); Platelet Count 177 X 10*3/uL (140-440); RBC 2.61 X 10*6/uL (4.10-5.20); RDW 14.1 % (11.5-14.5); WBC 11.03 X 10*3/uL (4.50-10.00)
[2022-01-16] MEDS: INSULIN DETEMIR (LEVEMIR) 100 UNIT/ML SYR SQ SCH ×2 (09:07→21:05)
[2022-01-16 09:37] LABS: ALT 11 U/L (8-44); AST 26 U/L (13-35); African American GFR (CKD) 25.5 (60.0-200.0); Albumin 2.7 g/dL (3.8-4.9); Albumin/Globulin Ratio 1.23 (1.60-3.17); Alkaline Phosphatase 71 U/L (41-126); Blood Urea Nitrogen 46.2 mg/dL (9.0-27.0); Carbon Dioxide 22.2 mmol/L (20.0-27.5); Chloride 97 mmol/L (96-109); Globulin 2.2 g/dL (1.6-3.3); Glucose 82 mg/dL (70-110); Potassium 4.1 mmol/L (3.5-5.5); Sodium 131 mmol/L (135-145); Total Protein 4.9 g/dL (6.2-8.2)
--- NOTE | 2022-01-16 09:56 | P.PN ---
Subjective Patient is seen in follow-up for acute kidney injury on chronic kidney disease and hyponatremia. Renal function stable. Sodium level improved. Blood pressure on the lower side this morning. On 2 L nasal cannula. Oral intake is fair. No vomiting or diarrhea. Patient is somewhat confused and doesn't know where she has. Vital signs are stable. General: Awake. No acute distress. HEENT: Head exam is unremarkable. On nasal cannula. LUNGS: Breath sounds decreased. HEART: Rate and Rhythm are regular. ABDOMEN: Soft, no distention. EXTREMITITES: No edema. Objective - Vital Signs Vital signs: Vital Signs Temp 97.8 F 01/16/22 04:16 Pulse 74 01/16/22 08:14 Resp 16 01/16/22 04:16 BP 102/56 01/16/22 08:14 Pulse Ox 93 L 01/16/22 04:16 FiO2 Intake & Output 01/15/22 01/16/22 01/16/22 18:59 06:59 18:59 Intake Total 240 Output Total 550 500 Balance -550 -260 Weight 107.501 kg Intake: Oral 240 Output: Urine 550 500 Other: Voiding Method Indwelling Catheter - Labs CBC & Chem 7: 01/16/22 05:48 01/16/22 05:48 Labs: Abnormal Lab Results - Last 24 Hours (Table) 01/15/22 01/15/22 01/15/22 Range/Units 05:59 11:20 13:01 WBC (4.50-10.00) X 10*3/uL RBC (4.10-5.20) X 10*6/uL Hgb (12.0-15.0) g/dL Hct (37.2-46.3) % Sodium (135-145) mmol/L BUN (9.0-27.0) mg/dL Creatinine (0.6-1.5) mg/dL Est GFR (CKD-EPI)AfAm (60.0-200.0) Est GFR (CKD-EPI)NonAf (60.0-200.0) BUN/Creatinine Ratio (12.00-20.00) Ratio POC Glucose (mg/dL) 120 H (70-110) mg/dL Calcium (8.7-10.3) mg/dL Iron 34 L (50-170) ug/dL Transferrin 179.0 L (204.0-354.0) mg/dL Ferritin 819.0 H (10.0-291.0) ng/mL Total Protein (6.2-8.2) g/dL Albumin (3.8-4.9) g/dL Albumin/Globulin Ratio (1.60-3.17) g/dL Urine Protein Trace H (Negative) Urine Glucose (UA) 3+ H (Negative) Urine Blood Trace H (Negative) Ur Leukocyte Esterase Small H (Negative) Urine Bacteria Rare H (None) /hpf Hyaline Casts 3 H (0-2) /lpf Urine Mucus Rare H (None) /hpf Urine Yeast (Budding) Many H (None) /hpf Ur Random Sodium (40-220) mmol/L 01/15/22 01/16/22 01/16/22 Range/Units 13:01 05:48 05:48 WBC 11.03 H (4.50-10.00) X 10*3/uL RBC 2.61 L (4.10-5.20) X 10*6/uL Hgb 8.0 L (12.0-15.0) g/dL Hct 24.0 L (37.2-46.3) % Sodium 131 L (135-145) mmol/L BUN 46.2 H (9.0-27.0) mg/dL Creatinine 2.1 H (0.6-1.5) mg/dL Est GFR (CKD-EPI)AfAm 25.5 L (60.0-200.0) Est GFR (CKD-EPI)NonAf 22.0 L (60.0-200.0) BUN/Creatinine Ratio 22.00 H (12.00-20.00) Ratio POC Glucose (mg/dL) (70-110) mg/dL Calcium 8.0 L (8.7-10.3) mg/dL Iron (50-170) ug/dL Transferrin (204.0-354.0) mg/dL Ferritin (10.0-291.0) ng/mL Total Protein 4.9 L (6.2-8.2) g/dL Albumin 2.7 L (3.8-4.9) g/dL Albumin/Globulin Ratio 1.23 L (1.60-3.17) g/dL Urine Protein (Negative) Urine Glucose (UA) (Negative) Urine Blood (Negative) Ur Leukocyte Esterase (Negative) Urine Bacteria (None) /hpf Hyaline Casts (0-2) /lpf Urine Mucus (None) /hpf Urine Yeast (Budding) (None) /hpf Ur Random Sodium <20 L (40-220) mmol/L Assessment and Plan Plan: Assessment: 1. Acute kidney injury secondary to ATN secondary to hypotension. Creatinine was 1.37 on admission and peaked at 2.13-6 admission - stable at 2.1 today. No hydronephrosis noted on kidney ultrasound. 2. Chronic kidney disease stage IIIa with baseline creatinine in the range of 1.2-1.4 secondary to nephrosclerosis and diabetic kidney disease. 3. Hyponatremia secondary to acute kidney injury. Improved. Urine sodium less than 20 and urine osmolality 345. TSH normal. 4. Left fracture status post intramedullary nailing this admission. 5. Diabetes mellitus. 6. Anemia. Iron deficiency noted. 7. Urinary retention. Merida catheter placed. 8. History of A. fib. Plan: Maintain IV fluids. Encourage oral intake. 1200 mL fluid restriction. Continue to hold Lasix, entresto and farxiga for now. Avoid nephrotoxins. Continue to monitor renal function and urine output. Add IV iron. Check a.m. cortisol level as well. Add Flomax.
[2022-01-16 11:05] LABS: Glucose,Whole Blood 108 mg/dL (70-110)
--- NOTE | 2022-01-16 11:09 | P.PN ---
Subjective Progress Note Date: 01/16/22 Principal diagnosis: Left hip IT fracture Patient was seen at bedside this morning resting comfortably lying in semirecumbent position with dressing to left lower extremity over lateral hip. Patient says physical therapy has not been by yet this morning. Patient says she is still having difficulty moving the left lower extremity on her own due to the pain in the hip. Patient says she did work with physical therapy yesterday and was able stand up at bedside and bear weight on the left lower extremity. Patient says she did talk to telephonic case manager yesterday about going to rehab. catheter/ray placed due to urinary retention. Patient denies chest pain, fever, shortness breath, nausea, vomiting, change in vision, loss of bowel/bladder control. Objective - Vital Signs Vital signs: Vital Signs Temp 97.8 F 01/16/22 04:16 Pulse 74 01/16/22 08:14 Resp 16 01/16/22 04:16 BP 102/56 01/16/22 08:14 Pulse Ox 93 L 01/16/22 04:16 FiO2 Intake & Output 01/15/22 01/16/22 01/16/22 18:59 06:59 18:59 Intake Total 240 Output Total 550 500 Balance -550 -260 Weight 107.501 kg Intake: Oral 240 Output: Urine 550 500 Other: Voiding Method Indwelling Catheter - Exam Bulky dressing is present over the left lateral hip. There is minimal to no drainage from the incisions at this time. Incision appears to be healing well. Patient does have moderate tenderness to palpation over the incision on the left hip. Patient is nontender to palpation throughout rest exam. Sensation is equal, symmetric, bilaterally intact throughout the upper and lower extremities. Patient has full range of motion in right lower extremity and bilateral upper extremities on exam. Patient has full range of motion in left lower extremity on ankle dorsi/plantar flexion. Patient is able to wiggle toes and left lower extremity. Patient is unable to actively flex/extend left knee and flex/extend left hip due to pain at this time. Patient does have good passive range of motion of left knee and left hip on exam. 5/5 in all major motor is in bilateral upper extremities and right lower extremity. 4-/5 in resisted left knee flexion/extension in left hip flexion/extension. Radial pulses and dorsalis pedis pulses intact, bilaterally. Cap refill under 3 seconds in digits upper extremities. Negative Homans bilaterally. - Labs CBC & Chem 7: 01/16/22 05:48 01/16/22 05:48 Labs: Abnormal Lab Results - Last 24 Hours (Table) 01/15/22 01/15/22 01/15/22 Range/Units 05:59 11:20 13:01 WBC (4.50-10.00) X 10*3/uL RBC (4.10-5.20) X 10*6/uL Hgb (12.0-15.0) g/dL Hct (37.2-46.3) % Sodium (135-145) mmol/L BUN (9.0-27.0) mg/dL Creatinine (0.6-1.5) mg/dL Est GFR (CKD-EPI)AfAm (60.0-200.0) Est GFR (CKD-EPI)NonAf (60.0-200.0) BUN/Creatinine Ratio (12.00-20.00) Ratio POC Glucose (mg/dL) 120 H (70-110) mg/dL Calcium (8.7-10.3) mg/dL Iron 34 L (50-170) ug/dL Transferrin 179.0 L (204.0-354.0) mg/dL Ferritin 819.0 H (10.0-291.0) ng/mL Total Protein (6.2-8.2) g/dL Albumin (3.8-4.9) g/dL Albumin/Globulin Ratio (1.60-3.17) g/dL Urine Protein Trace H (Negative) Urine Glucose (UA) 3+ H (Negative) Urine Blood Trace H (Negative) Ur Leukocyte Esterase Small H (Negative) Urine Bacteria Rare H (None) /hpf Hyaline Casts 3 H (0-2) /lpf Urine Mucus Rare H (None) /hpf Urine Yeast (Budding) Many H (None) /hpf Ur Random Sodium (40-220) mmol/L 01/15/22 01/16/22 01/16/22 Range/Units 13:01 05:48 05:48 WBC 11.03 H (4.50-10.00) X 10*3/uL RBC 2.61 L (4.10-5.20) X 10*6/uL Hgb 8.0 L (12.0-15.0) g/dL Hct 24.0 L (37.2-46.3) % Sodium 131 L (135-145) mmol/L BUN 46.2 H (9.0-27.0) mg/dL Creatinine 2.1 H (0.6-1.5) mg/dL Est GFR (CKD-EPI)AfAm 25.5 L (60.0-200.0) Est GFR (CKD-EPI)NonAf 22.0 L (60.0-200.0) BUN/Creatinine Ratio 22.00 H (12.00-20.00) Ratio POC Glucose (mg/dL) (70-110) mg/dL Calcium 8.0 L (8.7-10.3) mg/dL Iron (50-170) ug/dL Transferrin (204.0-354.0) mg/dL Ferritin (10.0-291.0) ng/mL Total Protein 4.9 L (6.2-8.2) g/dL Albumin 2.7 L (3.8-4.9) g/dL Albumin/Globulin Ratio 1.23 L (1.60-3.17) g/dL Urine Protein (Negative) Urine Glucose (UA) (Negative) Urine Blood (Negative) Ur Leukocyte Esterase (Negative) Urine Bacteria (None) /hpf Hyaline Casts (0-2) /lpf Urine Mucus (None) /hpf Urine Yeast (Budding) (None) /hpf Ur Random Sodium <20 L (40-220) mmol/L Assessment and Plan Assessment: 1. Left hip IT fracture - Postoperative day #3 status post left hip IM nail Plan: 1. Left hip IT fracture - left hip IM nail surgery performed 01/13/2022. Patient stable at bedside this morning. Medicine has consulted nephrology due to elevated creatinine/ kidney function tests. Patient is stable from orthopedic standpoint for discharge to rehab once stable from a medical standpoint. We'll continue to follow patient during her stay in hospital. 2. Appreciate medical management 3. Pain management - Tramadol; Morphine 4. DVT prophylaxis - Eliquis 5 mg BID 5. GI prophylaxis - senna 6. PT/OT - weightbearing as tolerated with walker 7. Encourage incentive spirometer use 8. Discharge planning - discharge to rehab once stable medically Time with Patient: Less than 30
[2022-01-16] MEDS: SODIUM FERRIC GLUCONAT-SUCROSE 125 MG in SODIUM CHLORIDE 0.9% 100 ML IVPB SCH (11:34)
[2022-01-16] MEDS: SODIUM CHLORIDE 0.9% 1,000 ML IV SCH ×2 (11:38→14:53)
[2022-01-16 16:58] LABS: Glucose,Whole Blood 238 mg/dL (70-110)
[2022-01-16] MEDS ORDERED: TAMSULOSIN 0.4 MG CAP.ER.24H PO SCH (18:30)
[2022-01-16 20:24] LABS: Glucose,Whole Blood 242 mg/dL (70-110)
--- NOTE | 2022-01-16 22:49 | P.PN ---
Subjective Principal diagnosis: decreased urinary output. Some mild confusion this morning The patient is postop day #4 for left hip fracture repair. Decreased urinary output was noted this last shift. After nephrology evaluation, she is on fluid restriction by mouth peterson. But she seems more confused about her overall standing. I did try to explain to her that I am quite satisfied with her urinary output compared to yesterday. Objective - Vital Signs Vital signs: Vital Signs Temp 98.1 F 01/16/22 19:31 Pulse 68 01/16/22 20:30 Resp 16 01/16/22 19:31 BP 134/70 01/16/22 19:31 Pulse Ox 96 01/16/22 20:23 FiO2 Intake & Output 01/16/22 01/16/22 01/17/22 06:59 18:59 06:59 Intake Total 240 1936 Output Total 500 1205 Balance -260 731 Intake: Intake, IV Titration 1000 Amount Sodium Chloride 0.9% 1, 900 000 ml @ 75 mls/hr IV . [id number] [facility] Rx#:[id number] Sodium Ferric Gluconat- 100 Sucrose 125 mg In Sodium Chloride 0.9% 100 ml @ 100 mls/hr IVPB DAILY [facility] Rx#:[id number] Oral 240 936 Output: Urine 500 1205 Other: Voiding Method Indwelling Catheter Indwelling Catheter - Constitutional General appearance: Present: no acute distress, obese - EENT Eyes: Absent: abnormal pupil - Cardiovascular Rhythm: regular Heart sounds: normal: S1, S2 Abnormal Heart Sounds: Absent: S3 Gallop - Gastrointestinal General gastrointestinal: Present: soft. Absent: tenderness - Neurologic Neurologic: Present: CNII-XII intact, focal deficits - Labs CBC & Chem 7: 01/16/22 05:48 01/16/22 05:48 Labs: Abnormal Lab Results - Last 24 Hours (Table) 01/15/22 01/15/22 01/16/22 Range/Units 05:59 13:01 05:48 WBC 11.03 H (4.50-10.00) X 10*3/uL RBC 2.61 L (4.10-5.20) X 10*6/uL Hgb 8.0 L (12.0-15.0) g/dL Hct 24.0 L (37.2-46.3) % Sodium (135-145) mmol/L BUN (9.0-27.0) mg/dL Creatinine (0.6-1.5) mg/dL Est GFR (CKD-EPI)AfAm (60.0-200.0) Est GFR (CKD-EPI)NonAf (60.0-200.0) BUN/Creatinine Ratio (12.00-20.00) Ratio POC Glucose (mg/dL) (70-110) mg/dL Calcium (8.7-10.3) mg/dL Iron 34 L (50-170) ug/dL Transferrin 179.0 L (204.0-354.0) mg/dL Ferritin 819.0 H (10.0-291.0) ng/mL Total Protein (6.2-8.2) g/dL Albumin (3.8-4.9) g/dL Albumin/Globulin Ratio (1.60-3.17) g/dL Ur Random Sodium <20 L (40-220) mmol/L 01/16/22 01/16/22 01/16/22 Range/Units 05:48 16:56 20:14 WBC (4.50-10.00) X 10*3/uL RBC (4.10-5.20) X 10*6/uL Hgb (12.0-15.0) g/dL Hct (37.2-46.3) % Sodium 131 L (135-145) mmol/L BUN 46.2 H (9.0-27.0) mg/dL Creatinine 2.1 H (0.6-1.5) mg/dL Est GFR (CKD-EPI)AfAm 25.5 L (60.0-200.0) Est GFR (CKD-EPI)NonAf 22.0 L (60.0-200.0) BUN/Creatinine Ratio 22.00 H (12.00-20.00) Ratio POC Glucose (mg/dL) 238 H 242 H (70-110) mg/dL Calcium 8.0 L (8.7-10.3) mg/dL Iron (50-170) ug/dL Transferrin (204.0-354.0) mg/dL Ferritin (10.0-291.0) ng/mL Total Protein 4.9 L (6.2-8.2) g/dL Albumin 2.7 L (3.8-4.9) g/dL Albumin/Globulin Ratio 1.23 L (1.60-3.17) g/dL Ur Random Sodium (40-220) mmol/L Assessment and Plan (1) Urination decrease Current Visit: Yes Status: Acute Code(s): R34 - ANURIA AND OLIGURIA SNOMED Code(s): 01085029 (2) Femur fracture, left Current Visit: Yes Status: Acute Code(s): S72.92XA - UNSP FRACTURE OF LEFT FEMUR, INIT ENCNTR FOR CLOSED FRACTURE SNOMED Code(s): 13006871 (3) Atrial fibrillation Current Visit: No Status: Acute Code(s): I48.91 - UNSPECIFIED ATRIAL FIBRILLATION SNOMED Code(s): 72736392 (4) Diabetes Current Visit: No Status: Acute Code(s): E11.9 - TYPE 2 DIABETES MELLITUS WITHOUT COMPLICATIONS SNOMED Code(s): 06014188 Plan: Improved urinary output. Appreciate nephrology input. Check CBC and CMP in a.m. Hopefully anticipate discharge in the a.m. Time with Patient: Less than 30
[2022-01-17 06:59] LABS: Glucose,Whole Blood 109 mg/dL (70-110)
[2022-01-17] MEDS: IPRATROPIUM 0.5 MG/2.5 ML NEBU INHALATION SCH ×2 (07:44→11:02)
[2022-01-17] MEDS: INSULIN ASPART (NovoLOG) 100 UNIT/ML VIAL SQ SCH ×2 (08:20→12:33)
--- NOTE | 2022-01-17 08:35 | P.DS ---
Providers Date of admission: 01/12/22 20:12 Attending physician: Luis Shirley Consults: 01/12/22 19:52 Consult Physician Routine Consulting Provider: Luis Shirley Consult Reason/Comments: medical management Do you want consulting provider notified?: Yes 01/15/22 08:34 Consult Physician Routine Consulting Provider: Roc Coyne Consult Reason/Comments: impaired kidney function Do you want consulting provider notified?: Yes Primary care physician: Luis Shirley - Discharge Diagnosis(es) (1) Urination decrease Current Visit: Yes Status: Acute (2) Femur fracture, left Current Visit: Yes Status: Acute (3) Atrial fibrillation Current Visit: No Status: Acute (4) Diabetes Current Visit: No Status: Acute Hospital Course: This is a discharge summary 68-year-old white female with known history of diabetes and chronic cellulitis of the right lower extremity who had a fall resulting in left hip fracture. ORIF was done for repair. Postoperatively she developed only area and nephrology was consulted the patient was placed on appropriate iron supplementation and fluid restriction. The patient did quite well and will be discharged in stable condition once cleared by nephrology. Patient Condition at Discharge: Fair Plan - Discharge Summary Discharge Rx Participant: No New Discharge Prescriptions: New Ferrous Sulfate [Iron (65 MG Elemental)] 325 mg PO BID-W/MEALS #60 tab Tamsulosin [Flomax] 0.4 mg PO PC-SUPPER #30 cap Continue Potassium 297 mg PO W/SUPPER Potassium 99 mg PO DAILY Ascorbic Acid [Vitamin C] 1,000 mg PO BID Ipratropium Alexander [Atrovent Hfa] 2 puff INHALATION RT-QID Insulin Aspart [NovoLOG Flexpen] See Protocol SQ AC-TID PRN PRN Reason: Blood Sugar - High Furosemide [Lasix] 60 mg PO DAILY Insulin Glargine,Hum.rec.anlog [Toujeo Max Solostar] 60 units SQ BID Apixaban [Eliquis] 5 mg PO BID traMADol HCL 50 mg PO Q6H PRN #120 tab PRN Reason: Pain Dapagliflozin Propanediol [Farxiga] 10 mg PO DAILY ALPRAZolam [Xanax] 0.25 mg PO TID PRN PRN Reason: Anxiety Metoprolol Succinate (ER) [Toprol XL] 50 mg PO BID Cholecalciferol [Vitamin D3 (25 Mcg = 1000 Iu)] 25 mcg PO BID Atorvastatin [Lipitor] 20 mg PO DAILY Amiodarone [Cordarone] 100 mg PO DAILY Sacubitril/Valsartan [Entresto 24 mg-26 mg Tablet] 1 tab PO BID Discharge Medication List Potassium 297 mg PO W/SUPPER 03/31/18 [History] Potassium 99 mg PO DAILY 04/01/18 [History] Apixaban [Eliquis] 5 mg PO BID 08/13/20 [History] Ascorbic Acid [Vitamin C] 1,000 mg PO BID 08/13/20 [History] Ipratropium Alexander [Atrovent Hfa] 2 puff INHALATION RT-QID 08/13/20 [History] traMADol HCL 50 mg PO Q6H PRN #120 tab 09/11/20 [Rx] ALPRAZolam [Xanax] 0.25 mg PO TID PRN 01/12/22 [History] Amiodarone [Cordarone] 100 mg PO DAILY 01/12/22 [History] Atorvastatin [Lipitor] 20 mg PO DAILY 01/12/22 [History] Cholecalciferol [Vitamin D3 (25 Mcg = 1000 Iu)] 25 mcg PO BID 01/12/22 [History] Dapagliflozin Propanediol [Farxiga] 10 mg PO DAILY 01/12/22 [History] Furosemide [Lasix] 60 mg PO DAILY 01/12/22 [History] Insulin Aspart [NovoLOG Flexpen] See Protocol SQ AC-TID PRN 01/12/22 [History] Insulin Glargine,Hum.rec.anlog [Toujeo Max Solostar] 60 units SQ BID 01/12/22 [History] Metoprolol Succinate (ER) [Toprol XL] 50 mg PO BID 01/12/22 [History] Sacubitril/Valsartan [Entresto 24 mg-26 mg Tablet] 1 tab PO BID 01/12/22 [History] Ferrous Sulfate [Iron (65 MG Elemental)] 325 mg PO BID-W/MEALS #60 tab 01/17/22 [Rx] Tamsulosin [Flomax] 0.4 mg PO PC-SUPPER #30 cap 01/17/22 [Rx] Follow up Appointment(s)/Referral(s): Ben Devi PAC [PHYSIC[facility] [employer] [facility]] - 2 Weeks Luis Shirley MD [Primary Care Provider] - 1-2 days Discharge Disposition: TRANSFER TO SNF/ECF
[2022-01-17] MEDS: SODIUM FERRIC GLUCONAT-SUCROSE 125 MG in SODIUM CHLORIDE 0.9% 100 ML IVPB SCH (08:55)
[2022-01-17] MEDS: ATORVASTATIN 20 MG TAB PO SCH (08:56)
[2022-01-17] MEDS: INSULIN DETEMIR (LEVEMIR) 100 UNIT/ML SYR SQ SCH (08:56)
[2022-01-17] MEDS: CHOLECALCIFEROL 25 MCG (1000 IU) TABLET PO SCH (08:56)
[2022-01-17] MEDS: FERROUS SULFATE 325 MG TAB PO SCH (08:56)
[2022-01-17] MEDS: AMIODARONE 100 MG TAB PO SCH (08:56)
[2022-01-17] MEDS: traMADol 50 MG TAB PO SCH ×2 (08:57→12:32)
[2022-01-17] MEDS: APIXABAN 5 MG TAB PO SCH (08:57)
[2022-01-17] MEDS: METOPROLOL SUCCINATE (ER) 50 MG TAB.ER.24H PO SCH (08:57)
[2022-01-17] MEDS: SENNOSIDES 8.6 MG TAB PO SCH (08:58)
[2022-01-17 09:01] LABS: African American GFR (CKD) 38.3 (60.0-200.0); Anion Gap 8.2 mmol/L (10.00-18.00); BUN/Creat Ratio 27.27 Ratio (12.00-20.00); Blood Urea Nitrogen 40.9 mg/dL (9.0-27.0); Calcium 7.7 mg/dL (8.7-10.3); Carbon Dioxide 22.8 mmol/L (20.0-27.5); Magnesium 2.5 mg/dL (1.5-2.4); Potassium 4.3 mmol/L (3.5-5.5)
--- NOTE | 2022-01-17 10:50 | P.PN ---
Subjective Patient is seen in follow-up for acute kidney injury on chronic kidney disease and hyponatremia. Renal function improved. Sodium level improved. Blood pressure has been stable. On 2 L nasal cannula. Oral intake is fair. No vomiting or diarrhea. No active complaints. Vital signs are stable. General: Awake. No acute distress. HEENT: Head exam is unremarkable. On nasal cannula. LUNGS: Breath sounds decreased. HEART: Rate and Rhythm are regular. ABDOMEN: Soft, no distention. EXTREMITITES: No edema. Objective - Vital Signs Vital signs: Vital Signs Temp 97.9 F 01/17/22 04:22 Pulse 68 01/17/22 07:53 Resp 16 01/17/22 04:22 BP 103/65 01/17/22 04:22 Pulse Ox 98 01/17/22 04:22 FiO2 Intake & Output 01/16/22 01/17/22 01/17/22 18:59 06:59 18:59 Intake Total 1936 825 Output Total 1205 1100 Balance 731 -275 Intake: Intake, IV Titration 1000 825 Amount Sodium Chloride 0.9% 1, 900 825 000 ml @ 75 mls/hr IV . [id number] [facility] Rx#:[id number] Sodium Ferric Gluconat- 100 Sucrose 125 mg In Sodium Chloride 0.9% 100 ml @ 100 mls/hr IVPB DAILY [facility] Rx#:[id number] Oral 936 Output: Urine 1205 1100 Other: Voiding Method Indwelling Catheter Indwelling Catheter - Labs CBC & Chem 7: 01/16/22 05:48 01/17/22 05:49 Labs: Abnormal Lab Results - Last 24 Hours (Table) 01/16/22 01/16/22 01/17/22 Range/Units 16:56 20:14 05:49 Sodium 132 L (135-145) mmol/L Anion Gap 8.20 L (10.00-18.00) mmol/L BUN 40.9 H (9.0-27.0) mg/dL Est GFR (CKD-EPI)AfAm 38.3 L (60.0-200.0) Est GFR (CKD-EPI)NonAf 33.0 L (60.0-200.0) BUN/Creatinine Ratio 27.27 H (12.00-20.00) Ratio POC Glucose (mg/dL) 238 H 242 H (70-110) mg/dL Calcium 7.7 L (8.7-10.3) mg/dL Magnesium 2.5 H (1.5-2.4) mg/dL Assessment and Plan Plan: Assessment: 1. Acute kidney injury secondary to ATN secondary to hypotension. Creatinine was 1.37 on admission and peaked at 2.13 this admission - improved to 1.5 today. No hydronephrosis noted on kidney ultrasound. 2. Chronic kidney disease stage IIIa with baseline creatinine in the range of 1.2-1.4 secondary to nephrosclerosis and diabetic kidney disease. 3. Hyponatremia secondary to acute kidney injury. Improved. Urine sodium less than 20 and urine osmolality 345. TSH normal. 4. Left fracture status post intramedullary nailing this admission. 5. Diabetes mellitus. 6. Anemia. Iron deficiency noted. 7. Urinary retention. Merida catheter placed. On Flomax. 8. History of A. fib. Plan: Hep-Lock IV fluids. Encourage oral intake. 1200 mL fluid restriction. Continue to hold Lasix, entresto and farxiga for now. Avoid nephrotoxins. Continue to monitor renal function and urine output. Maintain IV iron. Cortisol level not low. DC Merida catheter and monitor serial bladder scans to make sure no urinary retention. Follow up outpatient 1 week post discharge.
[2022-01-17 11:10] LABS: Glucose,Whole Blood 145 mg/dL (70-110)
[2022-01-17 12:14] VITALS: BP 117/64; PULSE 59; RESP 17; TEMP 98.9
== END 2022-01-17 15:10 | DRG 480 ==
LOC: EC 18:38 → 4SSUR 20:12 → 5NMEDONC 01-13 00:32
PROVIDERS: ADMIT Family Medicine; ATTEND Family Medicine
PROC: 0QS706Z Reposition Left Upper Femur with Intramedullary Internal Fixation Device, Open Approach (ICD-10-PCS; principal; 2022-01-13 12:00)
DX: S72.142A Displaced intertrochanteric fracture of left femur, initial encounter for closed fracture (principal); N17.0 Acute kidney failure with tubular necrosis; Z68.42 Body mass index [BMI] 45.0-49.9, adult; I42.9 Cardiomyopathy, unspecified; L03.115 Cellulitis of right lower limb; E87.1 Hypo-osmolality and hyponatremia; D62 Acute posthemorrhagic anemia; E11.22 Type 2 diabetes mellitus with diabetic chronic kidney disease; E66.01 Morbid (severe) obesity due to excess calories; N18.31 Chronic kidney disease, stage 3a; I12.9 Hypertensive chronic kidney disease with stage 1 through stage 4 chronic kidney disease, or unspecified chronic kidney disease; R34 Anuria and oliguria; I95.9 Hypotension, unspecified; W18.09XA Striking against other object with subsequent fall, initial encounter; I48.0 Paroxysmal atrial fibrillation; I25.10 Atherosclerotic heart disease of native coronary artery without angina pectoris; E78.5 Hyperlipidemia, unspecified; E61.1 Iron deficiency; I45.9 Conduction disorder, unspecified; R33.9 Retention of urine, unspecified; Y92.000 Kitchen of unspecified non-institutional (private) residence as the place of occurrence of the external cause; Z28.310 Unvaccinated for COVID-19; Z87.891 Personal history of nicotine dependence; Z86.73 Personal history of transient ischemic attack (TIA), and cerebral infarction without residual deficits; Z79.84 Long term (current) use of oral hypoglycemic drugs; Z79.01 Long term (current) use of anticoagulants; I25.2 Old myocardial infarction; Z86.16 Personal history of COVID-19; Z86.718 Personal history of other venous thrombosis and embolism; Z79.899 Other long term (current) drug therapy; Z91.048 Other nonmedicinal substance allergy status; Z88.8 Allergy status to other drugs, medicaments and biological substances; Z88.5 Allergy status to narcotic agent; Z91.040 Latex allergy status; Z91.013 Allergy to seafood; Z91.012 Allergy to eggs
CPT/HCPCS: 36415; 70450; 71045; 72125; 73501; 73502; 76770; 80048; 80053; 81001; 82533; 82728; 83036; 83540; 83550; 83735; 83930; 83935; 84300; 84443; 85025; 85027; 85610; 85730; 93306; 94640; 94760; 96374; 96375; 99285

== ENCOUNTER 2022-03-05 14:26 | Emergency (ER) | payer MEDICARE ==
[2022-03-05] MEDS ORDERED: MORPHINE SULFATE 2 MG/ML SYRINGE IVP STA (15:37)
--- NOTE | 2022-03-05 16:25 | CT ---
EXAMINATION TYPE: CT hip LT wo con CT DLP: 2453.6 mGycm, Automated exposure control for dose reduction was used. DATE OF EXAM: 03/05/2022 4:15 PM COMPARISON: 02/04/2022 radiograph CLINICAL INDICATION:Female, 76 years old with history of Pain following hip replacement; , Pain follo wing fall, hip replacement in last 3 wee TECHNIQUE: Axial images were obtained of the left hip . Additional coronal and sagittal reformatted images and soft tissue and bone window were obtained for review. . Contrast used: None Oral contrast used: None FINDINGS: There is periprosthetic fracture involving the proximal left femur total arthroplasty with revision hardware. There is callus formation around these fracture sites. Additionally, there is hete rotropic calcification at the surgical bed musculature soft tissues. There is a fluid collection in t he left lateral thigh surgical bed measuring 10.1 x 5.5 x 4.2 cm. Fluid collection is not definitivel y connect to the joint. Atherosclerosis of the arterial vasculature. IMPRESSION: 1. Left lateral thigh surgical bed fluid collection which could represent hematoma, seroma and/or ab scess. Clinical correlation advised, consider ultrasound. 2. Periprosthetic fracture of the left hip likely from prior fracture seen on 02/04/2022. Hardware a ppears in appropriate position. No new acute fractures identified.
[2022-03-05] MEDS ORDERED: HYDROmorphone 1 MG/ML 1 ML SYRINGE IVP STA ×3 (16:44→21:55)
[2022-03-05 16:57] LABS: Basophils # (A) 0.1 k/uL (0-0.2); Basophils % (A) 0 %; Eosinophils # (A) 0.2 k/uL (0-0.7); Eosinophils % (A) 1 %; HCT 33.2 % (34.0-46.0); Hypochromasia Slight; Lymphocytes # (A) 1.1 k/uL (1.0-4.8); Lymphocytes % (A) 6 %; MCH 29.3 pg (25.0-35.0); MCHC 32.3 g/dL (31.0-37.0); MCV 90.4 fL (80.0-100.0); Monocytes # (A) 0.7 k/uL (0-1.0); Monocytes % (A) 4 %; Neutrophils # (A) 16.3 k/uL (1.3-7.7); Neutrophils % (A) 88 %; Platelet Count 557 k/uL (150-450); RBC 3.67 m/uL (3.80-5.40); RDW 15.5 % (11.5-15.5); WBC 18.5 k/uL (3.8-10.6)
--- NOTE | 2022-03-05 17:02 | ED ---
Lower Extremity Injury HPI - General Chief Complaint: Extremity Injury, Lower Stated Complaint: pain Time Seen by Provider: 03/05/22 15:14 Source: patient, family, EMS, RN notes reviewed Mode of arrival: EMS Limitations: no limitations - History of Present Illness Initial Comments: This is a 76-year-old female who presents to the emergency department for left hip pain. On 01/13, she had repair of a left intertrochanteric femur fracture. She subsequently had failure of the intramedullary nail. She saw Dr. Ritter on 02/13, and was subsequently transferred to [facility] for intervention the following day (02/14). Patient states that she ended up having a hip replacement, however the extent of this is otherwise not clear. Since then, she has continued to have increasing pain. She is taking Percocet at home with no relief. States that due to her pain she is barely able to move around. She did require a wound VAC following surgery, however her son wonders if it was taken out too soon. States that she was at the [place] ED over the last couple of days and had x-rays obtained. Her son states that the x-rays revealed that the kody used in her femur may have been too long. Denies any fevers, chills, sore throat, cough, dyspnea, chest pain, palpitations, abdominal pain, nausea, vomiting, diarrhea, back pain, or headaches. MD Complaint: other (left hip pain) - Related Data Home Medications Medication Instructions Recorded Confirmed Potassium 99 mg PO DAILY@0900 04/01/18 03/05/22 Apixaban [Eliquis] 5 mg PO BID@0900,209908/13/20 03/05/22 Ipratropium [place] [Atrovent Hfa] 2 puff INHALATION 08/13/20 03/05/22 RT-QID@,, Atorvastatin [Lipitor] 20 mg PO HS@209901/12/22 03/05/22 Dapagliflozin Propanediol [Farxiga] 10 mg PO DAILY@0900 01/12/22 03/05/22 Insulin Glargine,Hum.rec.anlog 60 units SQ DAILY@0900 01/12/22 03/05/22 [Al Escuderoostalexi] Sacubitril/Valsartan [Entresto 24 1 tab PO BID@0900,2100 01/12/22 03/05/22 mg-26 mg Tablet] ALPRAZolam [Xanax] 0.25 mg PO Q8HR PRN 02/08/22 03/05/22 Bumetanide [BUMEX] 4 mg PO DAILY@0900 02/08/22 03/05/22 INSULIN LISPRO (HumaLOG) [humaLOG] See Protocol SQ AC-TID 02/08/22 03/05/22 Sennosides/Docusate Sodium [Senna 1 cap PO BID@0900,1700 02/08/22 03/05/22 Plus 8.6-50 mg Softgel] Acetaminophen Tab [Tylenol Tab] 500 mg PO QID@00,06,,03/05/22 03/05/22 Amiodarone [Cordarone] 100 mg PO DAILY@0900 03/05/22 03/05/22 Docusate [Colace] 100 mg PO Q12H PRN 03/05/22 03/05/22 Escitalopram [Lexapro] 5 mg PO DAILY@0900 03/05/22 03/05/22 Insulin Glargine,Hum.rec.anlog 40 units SQ HS@209903/05/22 03/05/22 [Al Reynolds] Magnesium Hydroxide [Milk of 2,400 mg PO DAILY PRN 03/05/22 03/05/22 Magnesia] Metoprolol Tartrate [Lopressor] 25 mg PO BID@0900,1700 03/05/22 03/05/22 Omeprazole [PriLOSEC] 20 mg PO DAILY@0600 03/05/22 03/05/22 Potassium 297mg Tab 297 mg PO DAILY@1700 03/05/22 03/05/22 Pro-Stat Sugar Free 1 dose PO DAILY@0900 03/05/22 03/05/22 Tamsulosin [Flomax] 0.4 mg PO DAILY@169903/05/22 03/05/22 oxyCODONE HCL 5 mg PO TID@0600,1400,2200 03/05/22 03/05/22 Allergies Allergy/AdvReac Type Severity Reaction Status Date / Time shellfish derived [Shellfish] Allergy Severe vomiting Verified 03/05/22 19:02 -very ill adhesive Allergy skin red Verified 03/05/22 19:02 and murguia, tears skin aluminum Allergy skin turns Verified 03/05/22 19:02 black, passes out Antihistamines - Allergy heart Verified 03/05/22 19:02 Ethylenediamine palpitations codeine Allergy migraines Verified 03/05/22 19:02 epinephrine Allergy heart Verified 03/05/22 19:02 palpitations hydrogen peroxide Allergy murguia and Verified 03/05/22 19:02 causes infection latex Allergy passes out Verified 03/05/22 19:02 lidocaine Allergy gtts in Verified 03/05/22 19:02 eyes and passed out nickel Allergy turns skin Verified 03/05/22 19:02 black and passes out procaine HCl [From Novocain] Allergy passed Verified 03/05/22 19:02 out- due to epinephrine in it. thiopental sodium Allergy needed cpr Verified 03/05/22 19:02 [From Pentothal] resusitation egg yolk AdvReac Diarrhea Verified 03/05/22 19:02 surgical felicita Allergy Severe had to be Uncoded 02/08/22 13:21 removed 2 days post-op petroleum products AdvReac passes out Uncoded 02/08/22 12:44 or does not feel well. (diesel, oils) Review of Systems ROS Statement: Those systems with pertinent positive or pertinent negative responses have been documented in the HPI. ROS Other: All systems not noted in ROS Statement are negative. Past Medical History Past Medical History: Atrial Fibrillation, Coronary Artery Disease (CAD), CVA/TIA, Diabetes Mellitus, Deep Vein Thrombosis (DVT), Hypertension, Myocardial Infarction (TN), Osteoarthritis (OA) Additional Past Medical History / Comment(s): hx tia, hx stroke behind left eye., lt eye macular , states hospitalized with Covid April 2019 with life support and stage 3 kidney failure., hx of fall with hip fx and surgery 01/13/22 and residing at [facility] for Rehab- no wt bearing, DVT during ., varicose veins, states painful sore left heel., hx of t.b. as a child with scarring on lungs. Last Myocardial Infarction Date:: unknown date History of Any Multi-Drug Resistant Organisms: None Reported Date of last positivie culture/infection: 09/05/20 MDRO Source:: VRE CYST Past Surgical History: Adenoidectomy, Hysterectomy, Orthopedic Surgery, Tonsillectomy, Tubal Ligation Additional Past Surgical History / Comment(s): pilonidal cyst twice as child, rt knee arthroscopy, krystyna cataracts, krystyna great toe sx, ORIF Left hip (01/13/22) Past Anesthesia/Blood Transfusion Reactions: Previous Problems w/ Anesthesia, Postoperative Nausea & Vomiting (PONV) Additional Past Anesthesia/Blood Transfusion Reaction / Comment(s): difficulty waking up after sx. clausterphobia. 1961 blood transfusion(during child ) pt stated had palpitations after 2nd unit given Past Psychological History: Anxiety Smoking Status: Never smoker Past Alcohol Use History: None Reported Past Drug Use History: None Reported - Past Family History Mother Family Medical History: Cancer Additional Family Medical History / Comment(s): lung cancer Father Family Medical History: Coronary Artery Disease (CAD) Additional Family Medical History / Comment(s): heart disease, kidney disese General Exam Limitations: no limitations General appearance: alert, in distress Head exam: Present: atraumatic, normocephalic, normal inspection Respiratory exam: Present: normal lung sounds bilaterally. Absent: respiratory distress, wheezes, rales, rhonchi, stridor Cardiovascular Exam: Present: regular rate, normal rhythm, normal heart sounds. Absent: systolic murmur, diastolic murmur, rubs, gallop, clicks Extremities exam: Present: other (Severe tenderness to even light palpation over the left hip. There are no overlying external irregularities over the incision. Patient is refusing to move the left lower extremity due to pain. 2+ dorsalis pedis and tibialis posterior pulses.) Neurological exam: Present: alert, oriented X3, CN II-XII intact Psychiatric exam: Present: normal affect, normal mood Skin exam: Present: warm, dry, intact, normal color. Absent: rash Course Vital Signs 03/05/22 03/05/22 14:35 19:45 Temperature 98.1 F Pulse Rate 73 57 L Respiratory 20 18 Rate Blood Pressure 114/66 107/56 O2 Sat by Pulse 100 99 Oximetry Medical Decision Making - Medical Decision Making This is a 76-year-old female who presents to the emergency department with left hip pain. Given that she had x-rays revealing no remarkable findings in [place], a computed tomography scan of the left hip was obtained. My interpretation reveals a fluid collection along the left lateral thigh and the hardware does appear to be intact. The radiologist advised an ultrasound of this fluid collection for further evaluation, as they were unable to determine if this was a seroma, hematoma, or abscess. Based on these findings, lab work was subsequently obtained and an ultrasound was ordered. Lab work reveals leukocytosis, elevated ESR/CRP, an acute kidney injury, and critically low glucose of 30. She was given an IV push of dextrose, and her sugar subsequently improved. Based on the ultrasound results, the radiologist believes the fluid collection to be more likely a seroma or hematoma, however abscess cannot be ruled out. Given the patient's leukocytosis and significantly elevated inflammatory markers, postoperative infection or complication is a concern. Plan to transfer patient back to [facility] where the surgery took place. Patient was started on IV fluids and blood cultures were obtained. Case discussed with Dr. Marks, orthopedics at [facility], who is willing to accept the patient. ER provider Dr. Mehul Griggs is the accepting physician. Will avoid starting antibiotics at this time per [facility]'s request. This case was discussed in detail with the attending ED physician. Presentation, findings, and treatment plan discussed in detail as well. - Lab Data Result diagrams: 03/05/22 16:34 03/05/22 16:34 Lab Results 03/05/22 03/05/22 03/05/22 Range/Units 16:34 16:34 16:39 WBC 18.5 H (3.8-10.6) k/uL RBC 3.67 L (3.80-5.40) m/uL Hgb 10.7 L D (11.4-16.0) gm/dL Hct 33.2 L (34.0-46.0) % MCV 90.4 (80.0-100.0) fL MCH 29.3 (25.0-35.0) pg MCHC 32.3 (31.0-37.0) g/dL RDW 15.5 (11.5-15.5) % Plt Count 557 H D (150-450) k/uL MPV 8.0 Neutrophils % 88 % Lymphocytes % 6 % Monocytes % 4 % Eosinophils % 1 % Basophils % 0 % Neutrophils # 16.3 H (1.3-7.7) k/uL Lymphocytes # 1.1 (1.0-4.8) k/uL Monocytes # 0.7 (0-1.0) k/uL Eosinophils # 0.2 (0-0.7) k/uL Basophils # 0.1 (0-0.2) k/uL Hypochromasia Slight ESR 107 H (0-20) mm/hr Sodium 131 L (137-145) mmol/L Potassium 3.4 L (3.5-5.1) mmol/L Chloride 95 L (98-107) mmol/L Carbon Dioxide 28 (22-30) mmol/L Anion Gap 8 mmol/L BUN 68 H (7-17) mg/dL Creatinine 2.35 H (0.52-1.04) mg/dL Est GFR (CKD-EPI)AfAm 22 (>60 ml/min/1.73 sqM) Est GFR (CKD-EPI)NonAf 19 (>60 ml/min/1.73 sqM) Glucose 30 L* (74-99) mg/dL POC Glucose (mg/dL) (70-110) mg/dL POC Glu Gig Tender ID Plasma Lactic Acid Jaspreet 2.0 (0.7-2.0) mmol/L Calcium 7.6 L (8.4-10.2) mg/dL Total Bilirubin 0.6 (0.2-1.3) mg/dL AST 29 (14-36) U/L ALT 15 (4-34) U/L Alkaline Phosphatase 149 H (38-126) U/L C-Reactive Protein 29.8 H (<1.0) mg/dL Total Protein 5.4 L (6.3-8.2) g/dL Albumin 2.4 L (3.5-5.0) g/dL 03/05/22 Range/Units 18:14 WBC (3.8-10.6) k/uL RBC (3.80-5.40) m/uL Hgb (11.4-16.0) gm/dL Hct (34.0-46.0) % MCV (80.0-100.0) fL MCH (25.0-35.0) pg MCHC (31.0-37.0) g/dL RDW (11.5-15.5) % Plt Count (150-450) k/uL MPV Neutrophils % % Lymphocytes % % Monocytes % % Eosinophils % % Basophils % % Neutrophils # (1.3-7.7) k/uL Lymphocytes # (1.0-4.8) k/uL Monocytes # (0-1.0) k/uL Eosinophils # (0-0.7) k/uL Basophils # (0-0.2) k/uL Hypochromasia ESR (0-20) mm/hr Sodium (137-145) mmol/L Potassium (3.5-5.1) mmol/L Chloride (98-107) mmol/L Carbon Dioxide (22-30) mmol/L Anion Gap mmol/L BUN (7-17) mg/dL Creatinine (0.52-1.04) mg/dL Est GFR (CKD-EPI)AfAm (>60 ml/min/1.73 sqM) Est GFR (CKD-EPI)NonAf (>60 ml/min/1.73 sqM) Glucose (74-99) mg/dL POC Glucose (mg/dL) 125 H (70-110) mg/dL POC Glu Gig Tender ID Francis Beauchamp Plasma Lactic Acid Jaspreet (0.7-2.0) mmol/L Calcium (8.4-10.2) mg/dL Total Bilirubin (0.2-1.3) mg/dL AST (14-36) U/L ALT (4-34) U/L Alkaline Phosphatase (38-126) U/L C-Reactive Protein (<1.0) mg/dL Total Protein (6.3-8.2) g/dL Albumin (3.5-5.0) g/dL - Radiology Data Radiology results: report reviewed, image reviewed Disposition Clinical Impression: Left hip pain, Leukocytosis, Fluid collection at surgical site Disposition: OTHER INSTITUTION NOT DEFINED Referrals: Luis Shirley MD [Primary Care Provider] - 1-2 days - Out of Hospital Transfer - Req. Specs Out of Hospital Transfer - Requested Specifics: Other Emergency Center ([facility]
[2022-03-05 17:08] LABS: Albumin 2.4 g/dL (3.5-5.0); Calcium 7.6 mg/dL (8.4-10.2); Potassium 3.4 mmol/L (3.5-5.1); Total Bilirubin 0.6 mg/dL (0.2-1.3); Total Protein 5.4 g/dL (6.3-8.2)
[2022-03-05 17:34] LABS: HGB 10.7 gm/dL (11.4-16.0)
[2022-03-05 17:35] LABS: Erythrocyte Sedimentation Rate 107 mm/hr (0-20)
[2022-03-05] MEDS ORDERED: DEXTROSE 10 % IN WATER 250 ML IV STA (17:38)
[2022-03-05 17:40] LABS: C Reactive Protein 29.8 mg/dL (<1.0)
[2022-03-05] MEDS ORDERED: DEXTROSE 50% SYRINGE 50 ML IVP STA (17:52)
[2022-03-05 18:15] LABS: Glucose,Whole Blood 125 mg/dL (70-110)
--- NOTE | 2022-03-05 19:56 | US ---
EXAMINATION TYPE: US extremity nonvasc mass LT DATE OF EXAM: 03/05/2022 COMPARISON: CT: Today CLINICAL HISTORY: Fluid collection at hip on CT. Fluid collection seen in left hip on CT. Hip surgery 3 weeks ago Technique: Left hip lateral grayscale and color Doppler imaging.. FINDINGS: Fluid collection visualized in left hip measuring 12.1 x 10.5 x 2.9cm about 5cm deep from skin withou t surrounding color Doppler flow. IMPRESSION: Findings involving the left hip fluid collection likely representing postop seroma/hemat charity and less likely abscess given no significant peripheral hypervascularity.
[2022-03-05] MEDS ORDERED: SODIUM CHLORIDE 0.9% 1,000 ML IV STA (20:06)
[2022-03-06 00:48] VITALS: BP 118/74; PULSE 88; RESP 18; TEMP 98.2
== END 2022-03-06 00:35 | disposition other institution (70) ==
LOC: EC 14:26
DX: M25.552 Pain in left hip (principal); D72.829 Elevated white blood cell count, unspecified; L76.31 Postprocedural hematoma of skin and subcutaneous tissue following a dermatologic procedure; F41.9 Anxiety disorder, unspecified; I10 Essential (primary) hypertension; I48.91 Unspecified atrial fibrillation; E11.9 Type 2 diabetes mellitus without complications; I25.10 Atherosclerotic heart disease of native coronary artery without angina pectoris; I25.2 Old myocardial infarction; M19.90 Unspecified osteoarthritis, unspecified site; Z79.899 Other long term (current) drug therapy; Z79.4 Long term (current) use of insulin; Z79.84 Long term (current) use of oral hypoglycemic drugs; Z91.040 Latex allergy status; Z91.013 Allergy to seafood; Z91.048 Other nonmedicinal substance allergy status; Z88.5 Allergy status to narcotic agent; Z88.6 Allergy status to analgesic agent; Z88.8 Allergy status to other drugs, medicaments and biological substances; Z88.4 Allergy status to anesthetic agent; Z91.012 Allergy to eggs; Z86.16 Personal history of COVID-19
CPT/HCPCS: 36415; 80053; 85652; 83605; 85025; 86140; 87040; 76882; 73700; 99285; 96374; 96375 ×2; 96376 ×2; 96361 ×2; J2270; J1170

== ENCOUNTER 2022-06-17 19:30 | Observation (INO) | payer MEDICARE ==
[2022-06-17 20:06] LABS: Glucose,Whole Blood 130 mg/dL (70-110)
[2022-06-17 20:08] LABS: Basophils % (A) 1 %; Eosinophils # (A) 0.3 k/uL (0-0.7); Eosinophils % (A) 4 %; HCT 32.3 % (34.0-46.0); HGB 10.4 gm/dL (11.4-16.0); Lymphocytes # (A) 1.1 k/uL (1.0-4.8); Lymphocytes % (A) 16 %; MCH 28.5 pg (25.0-35.0); MCHC 32.3 g/dL (31.0-37.0); MCV 88.3 fL (80.0-100.0); Mean Platelet Volume 7.8; Monocytes # (A) 0.5 k/uL (0-1.0); Monocytes % (A) 7 %; Neutrophils # (A) 4.9 k/uL (1.3-7.7); Neutrophils % (A) 71 %; Platelet Count 308 k/uL (150-450); RBC 3.66 m/uL (3.80-5.40); RDW 14.8 % (11.5-15.5); WBC 6.8 k/uL (3.8-10.6)
--- NOTE | 2022-06-17 20:17 | ED ---
General Adult HPI - General Chief complaint: Recheck/Abnormal Lab/Rx Stated complaint: Abnormal Lab Time Seen by Provider: 06/17/22 19:32 Source: patient, EMS Mode of arrival: EMS Limitations: no limitations - History of Present Illness Initial comments: This is a 76-year-old female who presents emergency Department as a transfer patient from [place] emergency department. The patient was transferred here for a Nephro-Julio Cesar evaluation. It was reported that the patient has been under rehabilitation at [facility] when she was sent to the emergency department because she had abnormal lab. While in the emergency department, it was reported the patient's creatinine did increase from 2.3-3.4. The patient was to undergo a CT pyelogram tomorrow but her urologist did cancel this procedure and requested for nephrology evaluation. Due to the patient needing a nephrology evaluation, the patient was sent to this hospital and emergency dep artment for observation and evaluation by nephrology. The patient stated she denied of any acute symptoms or distress. The patient was resting in bed comfortably. - Related Data Home Medications Medication Instructions Recorded Confirmed Apixaban [Eliquis] 5 mg PO BID@0900,209908/13/20 06/17/22 Ipratropium [place] [Atrovent Hfa] 2 puff INHALATION 08/13/20 06/17/22 RT-QID@,,, Atorvastatin [Lipitor] 20 mg PO HS@209901/12/22 06/17/22 Dapagliflozin Propanediol [Farxiga] 10 mg PO DAILY@0901/12/22 06/17/22 Insulin Glargine,Hum.rec.anlog 30 units SQ DAILY@0901/12/22 06/17/22 [Al Reynolds] Sacubitril/Valsartan [Entresto 24 1 tab PO BID@899,209901/12/22 06/17/22 mg-26 mg Tablet] ALPRAZolam [Xanax] 0.25 mg PO Q8HR PRN 02/08/22 06/17/22 Acetaminophen Tab [Tylenol Tab] 500 mg PO QID@00,06,12,03/05/22 06/17/22 Amiodarone [Cordarone] 100 mg PO DAILY@0900 03/05/22 06/17/22 Docusate [Colace] 100 mg PO Q12H PRN 03/05/22 06/17/22 Escitalopram [Lexapro] 5 mg PO DAILY@0900 03/05/22 06/17/22 Insulin Glargine,Hum.rec.anlog 20 units SQ HS@2100 03/05/22 06/17/22 [[place] Max Solostar] Magnesium Hydroxide [Milk of 2,400 mg PO DAILY PRN 03/05/22 06/17/22 Magnesia] Metoprolol Tartrate [Lopressor] 25 mg PO BID@0900,1700 03/05/22 06/17/22 Omeprazole [PriLOSEC] 20 mg PO DAILY@0600 03/05/22 06/17/22 Tamsulosin [Flomax] 0.4 mg PO DAILY@1700 03/05/22 06/17/22 Albuterol Sulfate [Ventolin HFA] 1 - 2 puff INHALATION Q4H PRN 06/17/22 06/17/22 Calcium Carbonate [Tums] 1 tab PO Q4H PRN 06/17/22 06/17/22 Collagenase [Santyl Ointment] 1 applic TOPICAL DAILY 06/17/22 06/17/22 HYDROcodone/APAP 7.5-325MG [[place] 1 tab PO Q8H PRN 06/17/22 06/17/22 7.5-325] Multivitamins, Thera [Multivitamin 1 tab PO DAILY 06/17/22 06/17/22 (formulary)] Spironolactone 1 tab PO DAILY 06/17/22 06/17/22 Allergies Allergy/AdvReac Type Severity Reaction Status Date / Time shellfish derived [Shellfish] Allergy Severe vomiting Verified 06/17/22 20:46 -very ill adhesive Allergy skin red Verified 06/17/22 20:46 and murguia, tears skin aluminum Allergy skin turns Verified 06/17/22 20:46 black, passes out Antihistamines - Allergy heart Verified 06/17/22 20:46 Ethylenediamine palpitations codeine Allergy migraines Verified 06/17/22 20:46 epinephrine Allergy heart Verified 06/17/22 20:46 palpitations hydrogen peroxide Allergy murguia and Verified 06/17/22 20:46 causes infection latex Allergy passes out Verified 06/17/22 20:46 lidocaine Allergy gtts in Verified 06/17/22 20:46 eyes and passed out nickel Allergy turns skin Verified 06/17/22 20:46 black and passes out procaine HCl [From Novocain] Allergy passed Verified 06/17/22 20:46 out- due to epinephrine in it. thiopental sodium Allergy needed cpr Verified 06/17/22 20:46 [From Pentothal] resusitation egg yolk AdvReac Diarrhea Verified 06/17/22 20:46 surgical felicita Allergy Severe had to be Uncoded 06/17/22 08:02 removed 2 days post-op petroleum products AdvReac passes out Uncoded 06/17/22 08:02 or does not feel well. (diesel, oils) Review of Systems ROS Statement: Those systems with pertinent positive or pertinent negative responses have been documented in the HPI. ROS Other: All systems not noted in ROS Statement are negative. Past Medical History Past Medical History: Atrial Fibrillation, Coronary Artery Disease (CAD), CVA/TIA, Diabetes Mellitus, Deep Vein Thrombosis (DVT), Hypertension, Myocardial Infarction (IA), Osteoarthritis (OA) Additional Past Medical History / Comment(s): hx tia, hx stroke behind left eye., lt eye macular , states hospitalized with Covid April 2019 with life support and stage 3 kidney failure., hx of fall with hip fx and surgery 01/13/22 and residing at [facility] for Rehab- no wt bearing, DVT during ., varicose veins, states painful sore left heel., hx of t.b. as a child with scarring on lungs. Last Myocardial Infarction Date:: unknown date History of Any Multi-Drug Resistant Organisms: None Reported Date of last positivie culture/infection: 09/05/20 MDRO Source:: VRE CYST Past Surgical History: Adenoidectomy, Hysterectomy, Orthopedic Surgery, Tonsillectomy, Tubal Ligation Additional Past Surgical History / Comment(s): pilonidal cyst twice as child, rt knee arthroscopy, krystyna cataracts, krystyna great toe sx, ORIF Left hip (01/13/22) Past Anesthesia/Blood Transfusion Reactions: Previous Problems w/ Anesthesia, Postoperative Nausea & Vomiting (PONV) Additional Past Anesthesia/Blood Transfusion Reaction / Comment(s): difficulty waking up after sx. clausterphobia. 1961 blood transfusion(during child ) pt stated had palpitations after 2nd unit given Past Psychological History: Anxiety Smoking Status: Never smoker - Past Family History Mother Family Medical History: Cancer Additional Family Medical History / Comment(s): lung cancer Father Family Medical History: Coronary Artery Disease (CAD) Additional Family Medical History / Comment(s): heart disease, kidney disese General Exam Limitations: no limitations General appearance: alert, in no apparent distress, obese Head exam: Present: atraumatic, normocephalic, normal inspection Eye exam: Present: normal appearance, PERRL Pupils: Present: normal accommodation ENT exam: Present: normal exam, normal oropharynx, mucous membranes moist Neck exam: Present: normal inspection, full ROM Respiratory exam: Present: normal lung sounds bilaterally Cardiovascular Exam: Present: regular rate, normal rhythm, normal heart sounds GI/Abdominal exam: Present: soft, normal bowel sounds Extremities exam: Present: normal inspection, full ROM Back exam: Present: normal inspection, full ROM Neurological exam: Present: alert, oriented X3, CN II-XII intact Psychiatric exam: Present: normal affect, normal mood Skin exam: Present: warm, dry Course Vital Signs 06/17/22 06/17/22 19:35 20:38 Temperature 98 F Pulse Rate 58 L 61 Respiratory 16 16 Rate Blood Pressure 131/65 105/59 O2 Sat by Pulse 98 97 Oximetry Medical Decision Making - Medical Decision Making Was pt. sent in by a medical professional or institution (GLORIA Galindo, COMPUTER SUPPORT TECHNICIAN, urgent care, hospital, or retirement...) When possible be specific @ -Yes, [facility] and Dr. Acosta Did you speak to anyone other than the patient for history (EMS, parent, family, police, friend...)? What history was obtained from this source @ -No Did you review nursing and triage notes (agree or disagree)? Why? @ -I reviewed and agree with nursing and triage notes Were old charts reviewed (outside hosp., previous admission, EMS record, old EKG, old radiological studies, urgent care reports/EKG's, retirement records)? Report findings @ -I reviewed the outside emergency department note Differential Diagnosis (chest pain, altered mental status, abdominal pain women, abdominal pain men, vaginal bleeding, weakness, fever, dyspnea, syncope, h eadache, dizziness, GI bleed, back pain, seizure, CVA, palpatations, mental health)? @ -CKD, UTI, dehydration EKG interpreted by me (3pts min.). @ -None X-rays interpreted by me (1pt min.). @ -None done CT interpreted by me (1pt min.). @ -None done U/S interpreted by me (1pt. min.). @ -None done What testing was considered but not performed or refused? (CT, X-rays, U/S, labs)? Why? @ -None What meds were considered but not given or refused? Why? @ -None Did you discuss the management of the patient with other professionals (pro fessionals i.e. , PA, COMPUTER SUPPORT TECHNICIAN, lab, RT, psych nurse, psych social worker, pyrometer temperature regulator, teacher, commissioned police officer, director of casework department)? Give summary @ -Yes, admitting physician Was smoking cessation discussed for >3mins.? @ -No Was critical care preformed (if so, how long)? @ -No Were there social determinants of health that impacted care today? How? (Homelessness, low income, unemployed, alcoholism, drug addiction, transportation, low edu. Level, literacy, decrease access to med. care, [place] [facility], rehab)? @ -No Was there de-escalation of care discussed even if they declined (Discuss DNR or withdrawal of care, Hospice)? DNR status @ -No What co-morbidities impacted this encounter? (DM, HTN, Smoking, COPD, CAD, Cancer, CVA, ARF, Chemo, Hep., AIDS, mental health diagnosis, sleep apnea, morbid obesity)? @ -Diabetes, atrial fibrillation, recent femur fracture and rehabilitation, CKD Was patient admitted / discharged? Hospital course, mention meds given and route, prescriptions, significant lab abnormalities, going to OR and other pertinent info. @ -The patient was seen and evaluated emergency department. On physical exam, the patient was resting in bed without any acute distress. Vital signs admission were stable. Due to the nature the patient's complaint and reason for transfer, labs were repeated. Patient showed continued CKD and the patient will be placed in observation for evaluation by nephrology per the request of the patient's urologist. The patient was told this plan and was agreeable. The patient's primary care physician was also contacted and accepted the patient for observation. Undiagnosed new problem with uncertain prognosis? @ -No Drug Therapy requiring intensive monitoring for toxicity (Heparin, Nitro, Insulin, Cardizem)? @ -No Were any procedures done? @ -No Diagnosis/symptom? @ -CKD Acute, or Chronic, or Acute on Chronic? @ -Chronic Uncomplicated (without systemic symptoms) or Complicated (systemic symptoms)? @ -Uncomplicated Side effects of treatment? @ -No Exacerbation, Progression, or Severe Exacerbation? @ -No Poses a threat to life or bodily function? How? (Chest pain, USA, IA, pneumonia, PE, COPD, DKA, ARF, appy, cholecystitis, CVA, Diverticulitis, Homicidal, Suicidal, threat to staff... and all critical care pts) @ -No - Lab Data Result diagrams: 06/17/22 19:51 06/17/22 19:51 Lab Results 06/17/22 06/17/22 06/17/22 Range/Units 19:51 19:51 19:54 WBC 6.8 (3.8-10.6) k/uL RBC 3.66 L (3.80-5.40) m/uL Hgb 10.4 L (11.4-16.0) gm/dL Hct 32.3 L (34.0-46.0) % MCV 88.3 (80.0-100.0) fL MCH 28.5 (25.0-35.0) pg MCHC 32.3 (31.0-37.0) g/dL RDW 14.8 (11.5-15.5) % Plt Count 308 (150-450) k/uL MPV 7.8 Neutrophils % 71 % Lymphocytes % 16 % Monocytes % 7 % Eosinophils % 4 % Basophils % 1 % Neutrophils # 4.9 (1.3-7.7) k/uL Lymphocytes # 1.1 (1.0-4.8) k/uL Monocytes # 0.5 (0-1.0) k/uL Eosinophils # 0.3 (0-0.7) k/uL Basophils # 0.0 (0-0.2) k/uL Sodium 135 L (137-145) mmol/L Potassium 5.3 H (3.5-5.1) mmol/L Chloride 105 (98-107) mmol/L Carbon Dioxide 19 L (22-30) mmol/L Anion Gap 11 mmol/L BUN 107 H* (7-17) mg/dL Creatinine 2.68 H (0.52-1.04) mg/dL Est GFR (CKD-EPI)AfAm 19 (>60 ml/min/1.73 sqM) Est GFR (CKD-EPI)NonAf 16 (>60 ml/min/1.73 sqM) Glucose 126 H (74-99) mg/dL POC Glucose (mg/dL) 130 H (70-110) mg/dL POC Glu Tire Technician ID Toro Holcomb Calcium 9.0 (8.4-10.2) mg/dL Magnesium 2.1 (1.6-2.3) mg/dL Total Bilirubin 0.4 (0.2-1.3) mg/dL AST 23 (14-36) U/L ALT 15 (4-34) U/L Alkaline Phosphatase 83 (38-126) U/L Total Protein 6.3 (6.3-8.2) g/dL Albumin 3.0 L (3.5-5.0) g/dL Lipase 112 (23-300) U/L Disposition Clinical Impression: CKD (chronic kidney disease), Elevated BUN Disposition: ADMITTED IP TO THIS [facility] Condition: Stable Is patient prescribed a controlled substance at d/c from ED?: No Referrals: None,Stated [REFERRING] - 1-2 days Time of Disposition: 20:30 Decision to Admit Reason: Admit from EC Decision Date: 06/17/22 Decision Time: 20:30
[2022-06-17 20:22] LABS: Magnesium 2.1 mg/dL (1.6-2.3); Potassium 5.3 mmol/L (3.5-5.1); Total Bilirubin 0.4 mg/dL (0.2-1.3); Total Protein 6.3 g/dL (6.3-8.2)
[2022-06-17] MEDS ORDERED: NALOXONE 0.4 MG/ML 1 ML VIAL IV PRN (21:14)
[2022-06-17] MEDS: SODIUM CHLORIDE 0.9% 1,000 ML IV SCH (21:35)
[2022-06-17] MEDS ORDERED: ALPRAZolam 0.25 MG TAB PO PRN (23:56)
[2022-06-17] MEDS ORDERED: ALBUTEROL HFA INHALER INHALATION PRN (23:56)
[2022-06-17] MEDS ORDERED: DOCUSATE 100 MG CAP PO PRN (23:56)
[2022-06-18] MEDS: METOPROLOL TARTRATE 25 MG TAB PO SCH ×3 (00:30→18:23)
[2022-06-18] MEDS: HYDROcodone/APAP 7.5-325MG 1 EACH TAB PO SCH ×4 (00:30→20:59)
[2022-06-18] MEDS: ATORVASTATIN 20 MG TAB PO SCH ×2 (00:33→20:59)
[2022-06-18 00:45] LABS: Glucose,Whole Blood 128 mg/dL (70-110)
[2022-06-18 02:54] LABS: Appearance,Urine Turbid (Clear); Bacteria,Urine Moderate /hpf; Bilirubin,Urine Negative (Negative); Blood,Urine Moderate (Negative); Color,Urine Light Yellow; Glucose,Urine (UA) 3+ (Negative); Ketones,Urine Negative (Negative); Leukocyte Esterase,Urine Large (Negative); Nitrite,Urine Positive (Negative); PH, Urine 5.5 (5.0-8.0); Protein,Urine 1+ (Negative); RBC,Urine 173 /hpf (0-5); Specific Gravity,Urine 1.015 (1.001-1.035); Squamous Epithelial Cell,Urine 1 /hpf (0-4); Urobilinogen,Urine <2.0 mg/dL (<2.0); WBC,Urine >182 /hpf (0-5)
[2022-06-18] MEDS: HYDROcodone/APAP 5-325MG 1 EACH TAB PO PRN (04:16)
[2022-06-18 06:55] LABS: Glucose,Whole Blood 124 mg/dL (70-110)
[2022-06-18] MEDS: IPRATROPIUM 0.5 MG/2.5 ML NEBU INHALATION SCH ×4 (07:56→18:15)
[2022-06-18] MEDS: SACUBITRIL/VALSARTAN 24 MG-26 MG TABLET PO SCH ×2 (08:20→20:59)
[2022-06-18] MEDS: AMIODARONE 100 MG TAB PO SCH (08:20)
[2022-06-18] MEDS: PANTOPRAZOLE 40 MG TABLET PO SCH (08:20)
[2022-06-18] MEDS: ESCITALOPRAM 5 MG TAB PO SCH (08:20)
[2022-06-18] MEDS: HYDROPHILIC CREAM 180 GM TUBE TOPICAL SCH ×2 (08:21→21:01)
[2022-06-18] MEDS: SPIRONOLACTONE 25 MG TAB PO SCH (08:21)
[2022-06-18] MEDS: MULTIVITAMINS, THERA 1 EACH TAB PO SCH (08:22)
[2022-06-18] MEDS ORDERED: DEXTROSE 50% SYRINGE 50 ML IVP PRN ×2 (08:42)
[2022-06-18] MEDS ORDERED: MAGNESIUM HYDROXIDE 2,400 MG/10 ML CUP PO PRN (09:00)
[2022-06-18] MEDS ORDERED: PROTEIN SUPPLEMENT PO SCH (09:00)
[2022-06-18] MEDS ORDERED: SULFAMETHOX-TMP 800-160MG 1 EACH TAB PO SCH (09:00)
--- NOTE | 2022-06-18 09:24 | P.HPIM ---
History of Present Illness H&P Date: 06/18/22 Chief Complaint: Abnormal labs This is a 76-year-old female who presented to the emergency department as a transfer from [place] emergency department. Patient was supposed to undergo a pyelogram with urology but the procedure was canceled due to elevated BUN/creatinine. Patient is unable to tell us why she was going to have a pyelogram. She was transferred for nephrology consult. Patient denies any fever, chills or any acute symptoms. She is seen resting comfortably in bed this morning. UA does show a UTI, the patient denies any urinary symptoms. She has a chronic wound of the left heel and is currently wrapped in Kerlix. She does reside at [facility] for rehab. Medical history as noted below. Review of Systems Constitutional: Denies chills, Denies fever Cardiovascular: Denies chest pain, Denies dyspnea on exertion Respiratory: Denies cough, Denies dyspnea Gastrointestinal: Denies abdominal pain, Denies nausea Genitourinary: Denies dysuria, Denies urgency, Denies urinary frequency Past Medical History Past Medical History: Atrial Fibrillation, Coronary Artery Disease (CAD), CVA/TIA, Diabetes Mellitus, Deep Vein Thrombosis (DVT), Hypertension, Myocardial Infarction ([place]), Osteoarthritis (OA) Additional Past Medical History / Comment(s): hx tia, hx stroke behind left eye., lt eye macular , states hospitalized with Covid April 2019 with life support and stage 3 kidney failure., hx of fall with hip fx and surgery 01/13/22 and residing at [facility] for Rehab- no wt bearing, DVT during ., varicose veins, states painful sore left heel., hx of t.b. as a child with scarring on lungs. Last Myocardial Infarction Date:: unknown date History of Any Multi-Drug Resistant Organisms: None Reported Date of last positivie culture/infection: 09/05/20 MDRO Source:: VRE CYST Past Surgical History: Adenoidectomy, Hysterectomy, Orthopedic Surgery, Tonsillectomy, Tubal Ligation Additional Past Surgical History / Comment(s): pilonidal cyst twice as child, rt knee arthroscopy, krystyna cataracts, krystyna great toe sx, ORIF Left hip (01/13/22) Past Anesthesia/Blood Transfusion Reactions: Previous Problems w/ Anesthesia, Postoperative Nausea & Vomiting (PONV) Additional Past Anesthesia/Blood Transfusion Reaction / Comment(s): difficulty waking up after sx. clausterphobia. 1961 blood transfusion(during child ) pt stated had palpitations after 2nd unit given Past Psychological History: Anxiety Smoking Status: Never smoker Past Alcohol Use History: None Reported Past Drug Use History: None Reported - Past Family History Mother Family Medical History: Cancer Additional Family Medical History / Comment(s): lung cancer Father Family Medical History: Coronary Artery Disease (CAD) Additional Family Medical History / Comment(s): heart disease, kidney disese Medications and Allergies Home Medications Medication Instructions Recorded Confirmed Type Apixaban [Eliquis] 5 mg PO DIRECTED 08/13/20 06/17/22 History Ipratropium [place] [Atrovent Hfa] 2 puff INHALATION 08/13/20 06/17/22 History RT-QID@,,17,21 Atorvastatin [Lipitor] 20 mg PO HS@2100 01/12/22 06/17/22 History Dapagliflozin Propanediol [Farxiga] 10 mg PO DIRECTED 01/12/22 06/17/22 History Insulin Glargine,Hum.rec.anlog 30 units SQ DIRECTED 01/12/22 06/17/22 History [[place] Max Solostar] Sacubitril/Valsartan [Entresto 24 1 tab PO BID@0900,2100 01/12/22 06/17/22 History mg-26 mg Tablet] ALPRAZolam [Xanax] 0.25 mg PO DAILY@0900 02/08/22 06/17/22 History Amiodarone [Cordarone] 100 mg PO DAILY@0900 03/05/22 06/17/22 History Docusate [Colace] 100 mg PO Q12H PRN 03/05/22 06/17/22 History Escitalopram [Lexapro] 5 mg PO DAILY@0900 03/05/22 06/17/22 History Insulin Glargine,Hum.rec.anlog 20 units SQ HS@2100 03/05/22 06/17/22 History [T[place] Max Solostar] Magnesium Hydroxide [Milk of 2,400 mg PO DAILY PRN 03/05/22 06/17/22 History Magnesia] Metoprolol Tartrate [Lopressor] 25 mg PO BID@0900,1700 03/05/22 06/17/22 History Omeprazole [PriLOSEC] 20 mg PO DAILY@0900 03/05/22 06/17/22 History Tamsulosin [Flomax] 0.4 mg PO DAILY@1700 03/05/22 06/17/22 History Acetaminophen Tab [Tylenol] 650 mg PO Q6H PRN 06/17/22 06/17/22 History Albuterol Sulfate [Ventolin HFA] 2 puff INHALATION RT-Q4H PRN 06/17/22 06/17/22 History Cal[place] Skin Protectant Paste 1 applic TOPICAL BID 06/17/22 06/17/22 History Calcium Carbonate [Tums] 500 mg PO Q4H PRN 06/17/22 06/17/22 History Collagenase [Santyl Ointment] 1 applic TOPICAL DAILY 06/17/22 06/17/22 History HYDROcodone/APAP 5-325MG [[place] 1 tab PO Q24H PRN 06/17/22 06/17/22 History 5-325] HYDROcodone/APAP 7.5-325MG [[place] 1 tab PO TID@0900,1300,2100 06/17/22 06/17/22 History 7.5-325] Hydrophilic Cream [[place] (Kerodex 1 applic TOPICAL BID 06/17/22 06/17/22 History geq)] Insulin Glargine,Hum.rec.anlog 16 units SQ ONCE PRN 06/17/22 06/17/22 History [Togwen Sims Solostar] Multivitamins, Thera [Multivitamin 1 tab PO DAILY@0906/17/22 06/17/22 History (formulary)] Prostat Sugar Free (100kcal & 15gm 30 ml PO DAILY@0906/17/22 06/17/22 History Protein) Spironolactone 25 mg PO DAILY@0900 06/17/22 06/17/22 History Allergies Allergy/AdvReac Type Severity Reaction Status Date / Time shellfish derived [Shellfish] Allergy Severe vomiting Verified 06/17/22 20:46 -very ill adhesive Allergy skin red Verified 06/17/22 20:46 and murguia, tears skin aluminum Allergy skin turns Verified 06/17/22 20:46 black, passes out Antihistamines - Allergy heart Verified 06/17/22 20:46 Ethylenediamine palpitations codeine Allergy migraines Verified 06/17/22 20:46 epinephrine Allergy heart Verified 06/17/22 20:46 palpitations hydrogen peroxide Allergy murguia and Verified 06/17/22 20:46 causes infection latex Allergy passes out Verified 06/17/22 20:46 lidocaine Allergy gtts in Verified 06/17/22 20:46 eyes and passed out nickel Allergy turns skin Verified 06/17/22 20:46 black and passes out procaine HCl [From Novocain] Allergy passed Verified 06/17/22 20:46 out- due to epinephrine in it. thiopental sodium Allergy needed cpr Verified 06/17/22 20:46 [From Pentothal] resusitation egg yolk AdvReac Diarrhea Verified 06/17/22 20:46 surgical felicita Allergy Severe had to be Uncoded 06/17/22 08:02 removed 2 days post-op petroleum products AdvReac passes out Uncoded 06/17/22 08:02 or does not feel well. (diesel, oils) Physical Exam Vitals: Vital Signs Temp Pulse Pulse Resp BP BP Pulse Ox 06/18/22 08:06 56 L 06/18/22 07:57 52 L 06/18/22 07:35 97.8 F 56 L 18 116/72 95 06/18/22 04:09 92/51 06/18/22 03:17 98.5 F 57 L 18 90/42 92 L 06/17/22 23:00 18 06/17/22 22:59 98 F 67 18 136/64 96 06/17/22 22:00 65 16 101/49 98 06/17/22 21:00 66 16 119/88 99 06/17/22 20:38 61 16 105/59 97 06/17/22 19:35 98 F 58 L 16 131/65 98 Intake and Output 06/17/22 06/18/22 06/18/22 22:59 06:59 14:59 Intake Total 1500 Balance 1500 Intake: Intake, IV Titration 900 Amount Sodium Chloride 0.9% 1, 900 000 ml @ 75 mls/hr IV . [id number] [facility] Rx#:[id number] Oral 600 Other: Voiding Method External Catheter # Voids 2 Weight 87.09 kg 87.09 kg - Constitutional General appearance: cooperative, no acute distress - EENT Eyes: EOMI, PERRLA - Neck Neck: no lymphadenopathy, normal ROM, no rigidity - Respiratory Respiratory: bilateral: CTA - Cardiovascular Rhythm: regular Heart sounds: normal: S1, S2 - Gastrointestinal General gastrointestinal: soft, no tenderness - Integumentary Clean, dry, intact dressing to left heel Integumentary: normal, normal turgor - Musculoskeletal Musculoskeletal: generalized weakness - Psychiatric Psychiatric: A&O x's 3, appropriate affect, intact judgment & insight Results CBC & Chem 7: 06/17/22 19:51 06/17/22 19:51 Labs: Abnormal Lab Results - Last 24 Hours (Table) 06/17/22 06/17/22 06/17/22 Range/Units 19:51 19:51 19:54 RBC 3.66 L (3.80-5.40) m/uL Hgb 10.4 L (11.4-16.0) gm/dL Hct 32.3 L (34.0-46.0) % Sodium 135 L (137-145) mmol/L Potassium 5.3 H (3.5-5.1) mmol/L Carbon Dioxide 19 L (22-30) mmol/L BUN 107 H* (7-17) mg/dL Creatinine 2.68 H (0.52-1.04) mg/dL Glucose 126 H (74-99) mg/dL POC Glucose (mg/dL) 130 H (70-110) mg/dL Albumin 3.0 L (3.5-5.0) g/dL Urine Appearance (Clear) Urine Protein (Negative) Urine Glucose (UA) (Negative) Urine Blood (Negative) Urine Nitrite (Negative) Ur Leukocyte Esterase (Negative) Urine RBC (0-5) /hpf Urine WBC (0-5) /hpf Urine WBC Clumps (None) /hpf Urine Bacteria (None) /hpf 06/18/22 06/18/22 06/18/22 Range/Units 00:36 01:52 06:54 RBC (3.80-5.40) m/uL Hgb (11.4-16.0) gm/dL Hct (34.0-46.0) % Sodium (137-145) mmol/L Potassium (3.5-5.1) mmol/L Carbon Dioxide (22-30) mmol/L BUN (7-17) mg/dL Creatinine (0.52-1.04) mg/dL Glucose (74-99) mg/dL POC Glucose (mg/dL) 128 H 124 H (70-110) mg/dL Albumin (3.5-5.0) g/dL Urine Appearance Turbid H (Clear) Urine Protein 1+ H (Negative) Urine Glucose (UA) 3+ H (Negative) Urine Blood Moderate H (Negative) Urine Nitrite Positive H (Negative) Ur Leukocyte Esterase Large H (Negative) Urine RBC 173 H (0-5) /hpf Urine WBC >182 H (0-5) /hpf Urine WBC Clumps Few H (None) /hpf Urine Bacteria Moderate H (None) /hpf Thrombosis Risk Factor Assmnt - Choose All That Apply Any of the Below Risk Factors Present?: Yes Each Factor Represents 1 point: Medical pt on bed rest, Obesity (BMI >25) Other Risk Factors: Yes Each Risk Factor Represents 2 Points: Patient confined to bed Each Risk Factor Represents 3 Points: Age 75 years or older, History of DVT/PE Other congenital or acquired thrombophilia - If yes, enter type in comment: No Thrombosis Risk Factor Assessment Total Risk Factor Score: 10 Thrombosis Risk Factor Assessment Level: High Risk Assessment and Plan (1) CKD (chronic kidney disease) Current Visit: Yes Status: Acute Code(s): N18.9 - CHRONIC KIDNEY DISEASE, UNSPECIFIED SNOMED Code(s): 387981696 (2) Elevated BUN Current Visit: Yes Status: Acute Code(s): R79.9 - ABNORMAL FINDING OF BLOOD CHEMISTRY, UNSPECIFIED SNOMED Code(s): 332351368 (3) Diabetes Current Visit: No Status: Acute Code(s): E11.9 - TYPE 2 DIABETES MELLITUS WITHOUT COMPLICATIONS SNOMED Code(s): 05920645 (4) CAD (coronary artery disease) Current Visit: Yes Status: Acute Code(s): I25.10 - ATHSCL HEART DISEASE OF [place] CORONARY ARTERY W/O ANG PCTRS SNOMED Code(s): 36586404 (5) Hypertension Current Visit: Yes Status: Acute Code(s): I10 - ESSENTIAL (PRIMARY) HYPERTENSION SNOMED Code(s): 52714124 (6) UTI (urinary tract infection) Current Visit: Yes Status: Acute Code(s): N39.0 - URINARY TRACT INFECTION, SITE NOT SPECIFIED SNOMED Code(s): 79804668 Plan: Home medications have been reconciled. Appreciate nephrology consult. Start Bactrim for UTI. Check CMP in the morning. Patient seen and evaluated by nurse practitioner, physician in agreement with plan
[2022-06-18] MEDS: SODIUM CHLORIDE 0.9% 1,000 ML IV SCH ×2 (09:36→22:50)
[2022-06-18 11:55] LABS: Glucose,Whole Blood 178 mg/dL (70-110)
[2022-06-18] MEDS: INSULIN ASPART (NovoLOG) 100 UNIT/ML VIAL SQ SCH ×2 (12:34→18:24)
--- NOTE | 2022-06-18 12:43 | P.NPCON ---
History of Present Illness - Reason for Consult chronic renal failure - History of Present Illness Patient is a 76-year-old female with history of chronic kidney disease NKF stage IIIB with baseline creatinine around 1.5 mg/dL. Patient had an episode of acute kidney injury with creatinine at 2.3 in February 2022. She is admitted with a creatinine of 2.68 on this admission. Patient was initially taken to [facility] from [facility] due to abnormal labs. According to the patient a cystoscopy/pyelogram was scheduled as outpatient. Details are not available. Patient was hanna bsequently transferred to [facility] for nephrology evaluation. Patient denies any urinary symptoms Blood pressure was low with systolic in the 90s Patient is maintained on farxiga and Entresto as outpatient. Currently maintained on IV fluids. I do see Bactrim on her med list as well. No significant complaints of chest pains shortness of breath nausea vomiting abdominal pain or diarrhea. Abdominal CT from 06/03/2021 shows mild left hydronephrosis. No renal or ureteral calculi were noted. Review of Systems As per HPI Past Medical History Past Medical History: Atrial Fibrillation, Coronary Artery Disease (CAD), CV A/TIA, Diabetes Mellitus, Deep Vein Thrombosis (DVT), Hypertension, Myocardial Infarction ([place]), Osteoarthritis (OA) Additional Past Medical History / Comment(s): hx tia, hx stroke behind left eye., lt eye macular , states hospitalized with Covid April 2019 with life support and stage 3 kidney failure., hx of fall with hip fx and surgery 01/13/22 and residing at [facility] for Rehab- no wt bearing, DVT during ., varicose veins, states painful sore left heel., hx of t.b. as a child with scarring on lungs. Last Myocardial Infarction Date:: unknown date History of Any Multi-Drug Resistant Organisms: None Reported Date of last positivie culture/infection: 09/05/20 MDRO Source:: VRE CYST Past Surgical History: Adenoidectomy, Hysterectomy, Orthopedic Surgery, Tonsillectomy, Tubal Ligation Additional Past Surgical History / Comment(s): pilonidal cyst twice as child, rt knee arthroscopy, krystyna cataracts, krystyna great toe sx, ORIF Left hip (01/13/22) Past Anesthesia/Blood Transfusion Reactions: Previous Problems w/ Anesthesia, Postoperative Nausea & Vomiting (PONV) Additional Past Anesthesia/Blood Transfusion Reaction / Comment(s): difficulty waking up after sx. clausterphobia. 1961 blood transfusion(during child ) pt stated had palpitations after 2nd unit given Past Psychological History: Anxiety Smoking Status: Never smoker Past Alcohol Use History: None Reported Past Drug Use History: None Reported - Past Family History Mother Family Medical History: Cancer Additional Family Medical History / Comment(s): lung cancer Father Family Medical History: Coronary Artery Disease (CAD) Additional Family Medical History / Comment(s): heart disease, kidney disese Medications and Allergies Home Medications Medication Instructions Recorded Confirmed Type Apixaban [Eliquis] 5 mg PO DIRECTED 08/13/20 06/17/22 History Ipratropium [place] [Atrovent Hfa] 2 puff INHALATION 08/13/20 06/17/22 History RT-QID@,,17,21 Atorvastatin [Lipitor] 20 mg PO HS@2100 01/12/22 06/17/22 History Dapagliflozin Propanediol [Farxiga] 10 mg PO DIRECTED 01/12/22 06/17/22 History Insulin Glargine,Hum.rec.anlog 30 units SQ DIRECTED 01/12/22 06/17/22 History [Toujeo Max Solostar] Sacubitril/Valsartan [Entresto 24 1 tab PO BID@0900,2100 01/12/22 06/17/22 History mg-26 mg Tablet] ALPRAZolam [Xanax] 0.25 mg PO DAILY@0900 02/08/22 06/17/22 History Amiodarone [Cordarone] 100 mg PO DAILY@0900 03/05/22 06/17/22 History Docusate [Colace] 100 mg PO Q12H PRN 03/05/22 06/17/22 History Escitalopram [Lexapro] 5 mg PO DAILY@0900 03/05/22 06/17/22 History Insulin Glargine,Hum.rec.anlog 20 units SQ HS@2100 03/05/22 06/17/22 History [Toujeo Max Solostar] Magnesium Hydroxide [Milk of 2,400 mg PO DAILY PRN 03/05/22 06/17/22 History Magnesia] Metoprolol Tartrate [Lopressor] 25 mg PO BID@0900,1700 03/05/22 06/17/22 History Omeprazole [PriLOSEC] 20 mg PO DAILY@0900 03/05/22 06/17/22 History Tamsulosin [Flomax] 0.4 mg PO DAILY@1700 03/05/22 06/17/22 History Acetaminophen Tab [Tylenol] 650 mg PO Q6H PRN 06/17/22 06/17/22 History Albuterol Sulfate [Ventolin HFA] 2 puff INHALATION RT-Q4H PRN 06/17/22 06/17/22 History Calazime Skin Protectant Paste 1 applic TOPICAL BID 06/17/22 06/17/22 History Calcium Carbonate [Tums] 500 mg PO Q4H PRN 06/17/22 06/17/22 History Collagenase [Santyl Ointment] 1 applic TOPICAL DAILY 06/17/22 06/17/22 History HYDROcodone/APAP 5-325MG [Denair 1 tab PO Q24H PRN 06/17/22 06/17/22 History 5-325] HYDROcodone/APAP 7.5-325MG [[place]air 1 tab PO TID@0900,1300,2100 06/17/22 06/17/22 History 7.5-325] Hydrophilic Cream [Triad (Kerodex 1 applic TOPICAL BID 06/17/22 06/17/22 History geq)] Insulin Glargine,Hum.rec.anlog 16 units SQ ONCE PRN 06/17/22 06/17/22 History [Al Reynolds] Multivitamins, Thera [Multivitamin 1 tab PO DAILY@0906/17/22 06/17/22 History (formulary)] Prostat Sugar Free (100kcal & 15gm 30 ml PO DAILY@0900 06/17/22 06/17/22 History Protein) Spironolactone 25 mg PO DAILY@0900 06/17/22 06/17/22 History Allergies Allergy/AdvReac Type Severity Reaction Status Date / Time shellfish derived [Shellfish] Allergy Severe vomiting Verified 06/17/22 20:46 -very ill adhesive Allergy skin red Verified 06/17/22 20:46 and umrguia, tears skin aluminum Allergy skin turns Verified 06/17/22 20:46 black, passes out Antihistamines - Allergy heart Verified 06/17/22 20:46 Ethylenediamine palpitations codeine Allergy migraines Verified 06/17/22 20:46 epinephrine Allergy heart Verified 06/17/22 20:46 palpitations hydrogen peroxide Allergy murguia and Verified 06/17/22 20:46 causes infection latex Allergy passes out Verified 06/17/22 20:46 lidocaine Allergy gtts in Verified 06/17/22 20:46 eyes and passed out nickel Allergy turns skin Verified 06/17/22 20:46 black and passes out procaine HCl [From Novocain] Allergy passed Verified 06/17/22 20:46 out- due to epinephrine in it. thiopental sodium Allergy needed cpr Verified 06/17/22 20:46 [From Pentothal] resusitation egg yolk AdvReac Diarrhea Verified 06/17/22 20:46 surgical felicita Allergy Severe had to be Uncoded 06/17/22 08:02 removed 2 days post-op petroleum products AdvReac passes out Uncoded 06/17/22 08:02 or does not feel well. (diesel, oils) Physical Exam Vitals: Vital Signs Temp Pulse Pulse Resp BP BP Pulse Ox 06/18/22 11:40 56 L 18 06/18/22 11:37 56 L 06/18/22 11:25 60 06/18/22 08:06 56 L 06/18/22 07:57 52 L 06/18/22 07:35 97.8 F 56 L 18 116/72 95 06/18/22 04:09 92/51 06/18/22 03:17 98.5 F 57 L 18 90/42 92 L 06/17/22 23:00 18 06/17/22 22:59 98 F 67 18 136/64 96 06/17/22 22:00 65 16 101/49 98 06/17/22 21:00 66 16 119/88 99 06/17/22 20:38 61 16 105/59 97 06/17/22 19:35 98 F 58 L 16 131/65 98 Intake and Output 06/17/22 06/18/22 06/18/22 22:59 06:59 14:59 Intake Total 1500 Output Total 900 Balance 1500 -900 Intake: Intake, IV Titration 900 Amount Sodium Chloride 0.9% 1, 900 000 ml @ 75 mls/hr IV . [id number] [facility] Rx#:[id number] Oral 600 Output: Urine 900 Other: Voiding Method External Catheter External Catheter # Voids 2 Weight 87.09 kg 87.09 kg Patient is awake, comfortable, in no acute distress Examination of the heart S1 and S2 Examination of the lungs bilateral breath sounds are heard Abdomen is soft nontender Examination of lower extremity shows no edema right leg. Left leg has 1+ edema and patient is not able to move her leg or foot drop is noted as well. Results - Lab Results Most recent lab results Calcium 9.0 mg/dL (8.4-10.2) 06/17/22 19:51 Magnesium 2.1 mg/dL (1.6-2.3) 06/17/22 19:51 06/17/22 19:51 06/17/22 19:51 Assessment and Plan Assessment: 1. Acute kidney injury secondary to hypotension and hypoperfusion. Currently nonoliguric. Rule out obstructive uropathy. Previous CT on 06/03/2022 showed mild left hydronephrosis. I believe this is why patient was scheduled for further evaluation by urology as outpatient. 2. Chronic kidney disease NKF stage III with a creatinine of 1.5 on 01/17/2022 but elevated at 2.35 on 03/05/2022. Etiology is likely diabetic kidney disease and nephrosclerosis 3. Pyuria rule out UTI 4. Chronic A. fib maintained on amiodarone 5. Insulin-dependent type 2 diabetes maintained on SGL T2 inhibitors Plan: Continue with IV fluids Repeat labs in a.m. May continue with Bactrim for now. However if renal function does not improve or potassium remains elevated we will need to discontinue the Bactrim and switch to possibly Cipro May need to hold Aldactone if potassium is further elevated Check ultrasound of the kidneys Consider urology evaluation if renal function does not improve with IV hydration. Follow-up on urine cultures next Thank you for the consultation. We will continue to follow the patient with you during her hospitalization
[2022-06-18 13:26] VITALS: BMI 36.2
--- NOTE | 2022-06-18 13:52 | US ---
EXAMINATION TYPE: US kidneys/renal and bladder DATE OF EXAM: 06/18/2022 COMPARISON: 01/16/2020 CLINICAL HISTORY: chaitanya. CHAITANYA, Left flank pain EXAM MEASUREMENTS: Right Kidney: 11.1 x 5.0 x 4.3 cm Left Kidney: 11.1 x 4.3 x 5.1 cm Right Kidney: limited evaluation, lower pole obscured by overlying bowel content Left Kidney: mild to moderate hydronephrosis Bladder: debris noted Bilateral Jets seen: no [id number] left hydronephrosis. No definite nephrolithiasis. Fluid and debris suspected within the bladder correlate with urinalysis. IMPRESSION: 1. [id number] left hydronephrosis with no definite nephrolithiasis. 2. There is debris within the bladder correlate with urinalysis infection\cystitis versus hemorrhage.
[2022-06-18] MEDS: COLLAGENASE 250 UNIT/GM OINTMENT 30 GM TUBE TOPICAL SCH (14:22)
[2022-06-18 18:18] LABS: Glucose,Whole Blood 187 mg/dL (70-110)
[2022-06-18] MEDS: TAMSULOSIN 0.4 MG CAP.ER.24H PO SCH (18:23)
[2022-06-18] MEDS: ACETAMINOPHEN TAB 325 MG TAB PO PRN (18:27)
[2022-06-18 20:29] LABS: Glucose,Whole Blood 220 mg/dL (70-110)
[2022-06-18] MEDS: INSULIN DETEMIR (LEVEMIR) 100 UNIT/ML SYR SQ SCH (21:00)
[2022-06-19 04:06] LABS: Glucose,Whole Blood 168 mg/dL (70-110)
[2022-06-19] MEDS: HYDROcodone/APAP 5-325MG 1 EACH TAB PO PRN (04:09)
[2022-06-19 07:13] LABS: Glucose,Whole Blood 155 mg/dL (70-110)
[2022-06-19 07:38] LABS: ALT 15 U/L (4-34); AST 21 U/L (14-36); African American GFR (CKD) 22 (>60 ml/min/1.73 sqM); Albumin 2.6 g/dL (3.5-5.0); Albumin/Globulin Ratio 0.9; Alkaline Phosphatase 80 U/L (38-126); Anion Gap 7 mmol/L; Blood Urea Nitrogen 82 mg/dL (7-17); Calcium 8.9 mg/dL (8.4-10.2); Carbon Dioxide 19 mmol/L (22-30); Chloride 111 mmol/L (98-107); Globulin 2.9 g/dL; Glucose 148 mg/dL (74-99); Non-African American GFR(CKD) 19 (>60 ml/min/1.73 sqM); Potassium 5.1 mmol/L (3.5-5.1); Sodium 137 mmol/L (137-145); Total Bilirubin 0.2 mg/dL (0.2-1.3); Total Protein 5.5 g/dL (6.3-8.2)
[2022-06-19] MEDS: INSULIN ASPART (NovoLOG) 100 UNIT/ML VIAL SQ SCH ×3 (08:08→17:57)
[2022-06-19] MEDS: IPRATROPIUM 0.5 MG/2.5 ML NEBU INHALATION SCH ×4 (08:12→19:26)
[2022-06-19] MEDS ORDERED: SULFAMETHOX-TMP 800-160MG 1 EACH TAB PO SCH (09:00)
--- NOTE | 2022-06-19 09:08 | P.PN ---
Subjective Principal diagnosis: Acute kidney injury Patient with hydronephrosis and acute kidney injury. Appreciate nephrology input. Patient has developed UTI but feels a symptomatically other than chronic knee pain. She was scheduled for knee repair several weeks ago. No new complaints. Objective - Vital Signs Vital signs: Vital Signs Temp 97.9 F 06/19/22 07:35 Pulse 60 06/19/22 07:35 Resp 18 06/19/22 07:35 BP 126/69 06/19/22 07:35 Pulse Ox 96 06/19/22 07:35 FiO2 Intake & Output 06/18/22 06/19/22 06/19/22 18:59 06:59 18:59 Intake Total 600 500 Output Total 900 1500 Balance -300 -1000 Weight 87.09 kg Intake: Oral 600 500 Output: Urine 900 1500 Other: Voiding Method External Catheter External Catheter # Voids 1 - Constitutional General appearance: Present: obese - EENT Eyes: Absent: abnormal pupil - Neck Neck: Absent: lymphadenopathy - Respiratory Respiratory: bilateral: diminished - Cardiovascular Rhythm: irregularly irregular Heart sounds: normal: S1, S2 Abnormal Heart Sounds: Absent: S4 Gallop - Gastrointestinal General gastrointestinal: Present: soft - Integumentary Integumentary: Present: cellulitis - Labs CBC & Chem 7: 06/17/22 19:51 06/19/22 06:47 Labs: Abnormal Lab Results - Last 24 Hours (Table) 06/18/22 06/18/22 06/18/22 Range/Units 09:19 11:54 18:17 Chloride (98-107) mmol/L Carbon Dioxide (22-30) mmol/L BUN (7-17) mg/dL Creatinine (0.52-1.04) mg/dL Glucose (74-99) mg/dL POC Glucose (mg/dL) 178 H 187 H (70-110) mg/dL Hemoglobin A1c 8.1 H (0.0-6.0) % Total Protein (6.3-8.2) g/dL Albumin (3.5-5.0) g/dL 06/18/22 06/19/22 06/19/22 Range/Units 20:19 04:04 06:47 Chloride 111 H (98-107) mmol/L Carbon Dioxide 19 L (22-30) mmol/L BUN 82 H (7-17) mg/dL Creatinine 2.35 H (0.52-1.04) mg/dL Glucose 148 H (74-99) mg/dL POC Glucose (mg/dL) 220 H 168 H (70-110) mg/dL Hemoglobin A1c (0.0-6.0) % Total Protein 5.5 L (6.3-8.2) g/dL Albumin 2.6 L (3.5-5.0) g/dL 06/19/22 Range/Units 07:11 Chloride (98-107) mmol/L Carbon Dioxide (22-30) mmol/L BUN (7-17) mg/dL Creatinine (0.52-1.04) mg/dL Glucose (74-99) mg/dL POC Glucose (mg/dL) 155 H (70-110) mg/dL Hemoglobin A1c (0.0-6.0) % Total Protein (6.3-8.2) g/dL Albumin (3.5-5.0) g/dL Microbiology - Last 24 Hours (Table) 06/18/22 01:52 Urine Culture - Preliminary Urine,Voided Assessment and Plan (1) CAD (coronary artery disease) Current Visit: Yes Status: Acute Code(s): I25.10 - ATHSCL HEART DISEASE OF [place] CORONARY ARTERY W/O ANG PCTRS SNOMED Code(s): 05233852 (2) CKD (chronic kidney disease) Current Visit: Yes Status: Acute Code(s): N18.9 - CHRONIC KIDNEY DISEASE, UNSPECIFIED SNOMED Code(s): 923210072 (3) Elevated BUN Current Visit: Yes Status: Acute Code(s): R79.9 - ABNORMAL FINDING OF BLOOD CHEMISTRY, UNSPECIFIED SNOMED Code(s): 130680648 (4) Hypertension Current Visit: Yes Status: Acute Code(s): I10 - ESSENTIAL (PRIMARY) HYPERTENSION SNOMED Code(s): 87569587 (5) UTI (urinary tract infection) Current Visit: Yes Status: Acute Code(s): N39.0 - URINARY TRACT INFECTION, SITE NOT SPECIFIED SNOMED Code(s): 62556040 (6) Atrial fibrillation Current Visit: No Status: Acute Code(s): I48.91 - UNSPECIFIED ATRIAL FIBRILLATION SNOMED Code(s): 18354031 (7) Diabetes with skin ulcer Current Visit: No Status: Acute Code(s): E11.622 - TYPE 2 DIABETES MELLITUS WITH OTHER SKIN ULCER; L98.499 - NON-PRESSURE CHRONIC ULCER OF SKIN OF SITES W UNSP SEVERITY SNOMED Code(s): 41417525 (8) Venous insufficiency Current Visit: No Status: Acute Code(s): I87.2 - VENOUS INSUFFICIENCY (CHRONIC) (PERIPHERAL) SNOMED Code(s): 03472827 Plan: Labs are improved this morning. Check CMP. Appropriate pain control. See orders otherwise per
[2022-06-19] MEDS: traMADol 50 MG TAB PO PRN ×2 (09:47→21:20)
[2022-06-19] MEDS: AMIODARONE 100 MG TAB PO SCH (10:30)
[2022-06-19] MEDS: SPIRONOLACTONE 25 MG TAB PO SCH (10:31)
[2022-06-19] MEDS: ESCITALOPRAM 5 MG TAB PO SCH (10:31)
[2022-06-19] MEDS: METOPROLOL TARTRATE 25 MG TAB PO SCH ×2 (10:31→17:56)
[2022-06-19] MEDS: PANTOPRAZOLE 40 MG TABLET PO SCH (10:32)
[2022-06-19] MEDS: MULTIVITAMINS, THERA 1 EACH TAB PO SCH (10:32)
[2022-06-19] MEDS: DAPAGLIFLOZIN PROPANEDIOL 10 MG TABLET PO SCH (10:35)
[2022-06-19] MEDS: HYDROcodone/APAP 7.5-325MG 1 EACH TAB PO SCH (10:53)
[2022-06-19 11:13] LABS: Glucose,Whole Blood 259 mg/dL (70-110)
--- NOTE | 2022-06-19 11:29 | P.GSCN ---
History of Present Illness Consult date: 06/19/22 Reason for Consult: Left hydronephrosis Requesting physician: Veronica Chavez History of present illness: The patient is a 76-year-old female with a past medical history significant for atrial fibrillation, coronary artery disease, diabetes mellitus, DVT, hypertension, CA, and stage III CKD. The patient was a transfer from [place] to our emergency department on 06/17/22 for a nephrology evaluation. The patient was to undergo an outpatient cystoscopy/pyelogram which was apparently canceled due to elevated BUN and creatinine. Previous abdominal CT on 06/03/22 showed mild left hydronephrosis. Kidneys/renal and bladder ultrasound from 06/18/22 shows mild to moderate left hydronephrosis with no definite nephrolithiasis. There is debris within the bladder correlate with urinalysis infection/cystitis versus hemorrhage. The patient's baseline creatinine is around 1.5 mg/dL. Her creatinine upon admission was 2.68, and is 2.35 today despite IV hydration. Urinalysis positive for nitrates, leukocyte esterase, bacteria, and WBC. Urine culture pending. Review of Systems - Constitutional Denies chills, Denies fever - Cardiovascular Reports leg edema, Denies chest pain, Denies shortness of breath - Respiratory Denies cough - Gastrointestinal Denies abdominal pain, Denies nausea, Denies vomiting - Genitourinary Genitourinary: Reports urinary frequency, Denies dysuria, Denies hematuria Past Medical History Past Medical History: Atrial Fibrillation, Coronary Artery Disease (CAD), CVA/TIA, Diabetes Mellitus, Deep Vein Thrombosis (DVT), Hypertension, Myocardial Infarction (CA), Osteoarthritis (OA) Additional Past Medical History / Comment(s): hx tia, hx stroke behind left eye., lt eye macular , states hospitalized with Covid April 2019 with life support and stage 3 kidney failure., hx of fall with hip fx and surgery 01/13/22 and residing at [facility]- no wt bearing, DVT during ., varicose veins, states painful sore left heel., hx of t.b. as a child with scarring on lungs. Last Myocardial Infarction Date:: unknown date History of Any Multi-Drug Resistant Organisms: None Reported Year Discovered:: 09/05/20 MDRO Source:: VRE CYST Past Surgical History: Adenoidectomy, Hysterectomy, Orthopedic Surgery, Tonsillectomy, Tubal Ligation Additional Past Surgical History / Comment(s): pilonidal cyst twice as child, rt knee arthroscopy, krystyna cataracts, krystyna great toe sx, ORIF Left hip (01/13/22) Past Anesthesia/Blood Transfusion Reactions: Previous Problems w/ Anesthesia, Postoperative Nausea & Vomiting (PONV) Additional Past Anesthesia/Blood Transfusion Reaction / Comm: difficulty waking up after sx. clausterphobia. 1961 blood transfusion(during child ) pt stated had palpitations after 2nd unit given Past Psychological History: Anxiety Smoking Status: Never smoker Past Alcohol Use History: None Reported Past Drug Use History: None Reported - Past Family History Mother Family Medical History: Cancer Additional Family Medical History / Comment(s): lung cancer Father Family Medical History: Coronary Artery Disease (CAD) Additional Family Medical History / Comment(s): heart disease, kidney disese Medications and Allergies Home Medications Medication Instructions Recorded Confirmed Type Apixaban [Eliquis] 5 mg PO DIRECTED 08/13/20 06/17/22 History Ipratropium [employer] [Atrovent Hfa] 2 puff INHALATION 08/13/20 06/17/22 History RT-QID@,,17,21 Atorvastatin [Lipitor] 20 mg PO HS@2100 01/12/22 06/17/22 History Dapagliflozin Propanediol [Farxiga] 10 mg PO DIRECTED 01/12/22 06/17/22 History Insulin Glargine,Hum.rec.anlog 30 units SQ DIRECTED 01/12/22 06/17/22 History [Toubrenda Sims Solostar] Sacubitril/Valsartan [Entresto 24 1 tab PO BID@0900,2100 01/12/22 06/17/22 History mg-26 mg Tablet] ALPRAZolam [Xanax] 0.25 mg PO DAILY@0900 02/08/22 06/17/22 History Amiodarone [Cordarone] 100 mg PO DAILY@0900 03/05/22 06/17/22 History Docusate [Colace] 100 mg PO Q12H PRN 03/05/22 06/17/22 History Escitalopram [Lexapro] 5 mg PO DAILY@0900 03/05/22 06/17/22 History Insulin Glargine,Hum.rec.anlog 20 units SQ HS@2100 03/05/22 06/17/22 History [Toujeo Max Solostar] Magnesium Hydroxide [Milk of 2,400 mg PO DAILY PRN 03/05/22 06/17/22 History Magnesia] Metoprolol Tartrate [Lopressor] 25 mg PO BID@0900,1700 03/05/22 06/17/22 History Omeprazole [PriLOSEC] 20 mg PO DAILY@0900 03/05/22 06/17/22 History Tamsulosin [Flomax] 0.4 mg PO DAILY@1700 03/05/22 06/17/22 History Acetaminophen Tab [Tylenol] 650 mg PO Q6H PRN 06/17/22 06/17/22 History Albuterol Sulfate [Ventolin HFA] 2 puff INHALATION RT-Q4H PRN 06/17/22 06/17/22 History Calazime Skin Protectant Paste 1 applic TOPICAL BID 06/17/22 06/17/22 History Calcium Carbonate [Tums] 500 mg PO Q4H PRN 06/17/22 06/17/22 History Collagenase [Santyl Ointment] 1 applic TOPICAL DAILY 06/17/22 06/17/22 History HYDROcodone/APAP 5-325MG [[place] 1 tab PO Q24H PRN 06/17/22 06/17/22 History 5-325] HYDROcodone/APAP 7.5-325MG [[place] 1 tab PO TID@0900,1300,2100 06/17/22 06/17/22 History 7.5-325] Hydrophilic Cream [Triad (Kerodex 1 applic TOPICAL BID 06/17/22 06/17/22 History geq)] Insulin Glargine,Hum.rec.anlog 16 units SQ ONCE PRN 06/17/22 06/17/22 History [Toujeo Max Solostar] Multivitamins, Thera [Multivitamin 1 tab PO DAILY@0900 06/17/22 06/17/22 History (formulary)] Prostat Sugar Free (100kcal & 15gm 30 ml PO DAILY@0900 06/17/22 06/17/22 History Protein) Spironolactone 25 mg PO DAILY@0900 06/17/22 06/17/22 History Allergies Allergy/AdvReac Type Severity Reaction Status Date / Time shellfish derived [Shellfish] Allergy Severe vomiting Verified 06/17/22 20:46 -very ill adhesive Allergy skin red Verified 06/17/22 20:46 and murguia, tears skin aluminum Allergy skin turns Verified 06/17/22 20:46 black, passes out Antihistamines - Allergy heart Verified 06/17/22 20:46 Ethylenediamine palpitations codeine Allergy migraines Verified 06/17/22 20:46 epinephrine Allergy heart Verified 06/17/22 20:46 palpitations hydrogen peroxide Allergy murguia and Verified 06/17/22 20:46 causes infection latex Allergy passes out Verified 06/17/22 20:46 lidocaine Allergy gtts in Verified 06/17/22 20:46 eyes and passed out nickel Allergy turns skin Verified 06/17/22 20:46 black and passes out procaine HCl [From Novocain] Allergy passed Verified 06/17/22 20:46 out- due to epinephrine in it. thiopental sodium Allergy needed cpr Verified 06/17/22 20:46 [From Pentothal] resusitation egg yolk AdvReac Diarrhea Verified 06/17/22 20:46 surgical felicita Allergy Severe had to be Uncoded 06/17/22 08:02 removed 2 days post-op petroleum products AdvReac passes out Uncoded 06/17/22 08:02 or does not feel well. (diesel, oils) Surgical - Exam Vital Signs Temp Pulse Resp BP Pulse Ox 98 F 58 L 16 131/65 98 06/17/22 19:35 06/17/22 19:35 06/17/22 19:35 06/17/22 19:35 06/17/22 19:35 General: Well developed, well nourished. No acute distress. Nontoxic-appearing HEENT: Head is atraumatic, normocephalic. Lungs: Respirations even and nonlabored. On RA Abdomen/GI: Soft, non-distended. No guarding, rigidity, or abdominal tenderness. : No suprapubic tenderness. External catheter in place with pyuria Skin: Warm and dry,dressing to left heel CDI Neurologic: Alert and oriented 3, CN II-XII grossly intact. No focal deficits. Psychiatric: Appropriate mood and affect. Results - Labs 06/17/22 19:51 06/19/22 06:47 Abnormal Lab Results - Last 24 Hours (Table) 06/18/22 06/18/22 06/18/22 Range/Units 09:19 11:54 18:17 Chloride (98-107) mmol/L Carbon Dioxide (22-30) mmol/L BUN (7-17) mg/dL Creatinine (0.52-1.04) mg/dL Glucose (74-99) mg/dL POC Glucose (mg/dL) 178 H 187 H (70-110) mg/dL Hemoglobin A1c 8.1 H (0.0-6.0) % Total Protein (6.3-8.2) g/dL Albumin (3.5-5.0) g/dL 06/18/22 06/19/22 06/19/22 Range/Units 20:19 04:04 06:47 Chloride 111 H (98-107) mmol/L Carbon Dioxide 19 L (22-30) mmol/L BUN 82 H (7-17) mg/dL Creatinine 2.35 H (0.52-1.04) mg/dL Glucose 148 H (74-99) mg/dL POC Glucose (mg/dL) 220 H 168 H (70-110) mg/dL Hemoglobin A1c (0.0-6.0) % Total Protein 5.5 L (6.3-8.2) g/dL Albumin 2.6 L (3.5-5.0) g/dL 06/19/22 Range/Units 07:11 Chloride (98-107) mmol/L Carbon Dioxide (22-30) mmol/L BUN (7-17) mg/dL Creatinine (0.52-1.04) mg/dL Glucose (74-99) mg/dL POC Glucose (mg/dL) 155 H (70-110) mg/dL Hemoglobin A1c (0.0-6.0) % Total Protein (6.3-8.2) g/dL Albumin (3.5-5.0) g/dL Microbiology - Last 24 Hours (Table) 06/18/22 01:52 Urine Culture - Preliminary Urine,Voided Diabetes panel 06/18/22 06/19/22 Range/Units 09:19 06:47 Sodium 137 (137-145) mmol/L Potassium 5.1 (3.5-5.1) mmol/L Chloride 111 H (98-107) mmol/L Carbon Dioxide 19 L (22-30) mmol/L BUN 82 H (7-17) mg/dL Creatinine 2.35 H (0.52-1.04) mg/dL Glucose 148 H (74-99) mg/dL Hemoglobin A1c 8.1 H (0.0-6.0) % Calcium 8.9 (8.4-10.2) mg/dL AST 21 (14-36) U/L ALT 15 (4-34) U/L Alkaline Phosphatase 80 (38-126) U/L Total Protein 5.5 L (6.3-8.2) g/dL Albumin 2.6 L (3.5-5.0) g/dL Calcium panel 06/19/22 Range/Units 06:47 Calcium 8.9 (8.4-10.2) mg/dL Albumin 2.6 L (3.5-5.0) g/dL Pituitary panel 06/19/22 Range/Units 06:47 Sodium 137 (137-145) mmol/L Potassium 5.1 (3.5-5.1) mmol/L Chloride 111 H (98-107) mmol/L Carbon Dioxide 19 L (22-30) mmol/L BUN 82 H (7-17) mg/dL Creatinine 2.35 H (0.52-1.04) mg/dL Glucose 148 H (74-99) mg/dL Calcium 8.9 (8.4-10.2) mg/dL Adrenal panel 06/19/22 Range/Units 06:47 Sodium 137 (137-145) mmol/L Potassium 5.1 (3.5-5.1) mmol/L Chloride 111 H (98-107) mmol/L Carbon Dioxide 19 L (22-30) mmol/L BUN 82 H (7-17) mg/dL Creatinine 2.35 H (0.52-1.04) mg/dL Glucose 148 H (74-99) mg/dL Calcium 8.9 (8.4-10.2) mg/dL Total Bilirubin 0.2 (0.2-1.3) mg/dL AST 21 (14-36) U/L ALT 15 (4-34) U/L Alkaline Phosphatase 80 (38-126) U/L Total Protein 5.5 L (6.3-8.2) g/dL Albumin 2.6 L (3.5-5.0) g/dL - Imaging CT scan - abdomen: report reviewed CT scan - pelvis: report reviewed US - kidney/bladder: report reviewed Assessment and Plan Assessment: The patient denies any history of prior kidney stones, recurrent UTIs, or cancer. The patient did undergo a bladder suspension in 1992. The patient was scheduled to undergo a cystoscopy, bilateral retrograde pyelogram, possible biopsy yesterday with Dr. Acosta. The procedure was canceled due to elevated BUN and creatinine levels. No leukocytosis, patient is afebrile preliminary urine culture growing gram-negative bacilli. The patient denies any dysuria or hematuria. She does report urinary frequency and feeling as though she is not emptying her bladder completely. The patient is currently receiving Bactrim DS. The patient will be rescheduled for her procedure once her infection clears, probably next week. The patient's son, Danish, was called and updated. (1) Hydronephrosis, left Current Visit: Yes Status: Acute Code(s): N13.30 - UNSPECIFIED HYDRONEPHROSIS SNOMED Code(s): 34939507 Plan: - Continue Bactrim DS - Awaiting finalization of urine culture - Monitor creatinine - Check PVR - Continue Flomax Thank you for this consultation Impression and plan of care have been directed as dictated by the signing physician. Kim Morales nurse practitioner acting as scribe for signing physician. Kim Morales [facility] Palliative Care/Urology Spectralink [phone] Email: [email or web address] The patient has been interviewed and examined by me.. the ct scan shows left hydro without a stone. She will need a cysto with retrograde, possible ureteroscopy left after her urine infection has been treated. I agree with the above mentioned note. michel Bourne MD
[2022-06-19] MEDS: COLLAGENASE 250 UNIT/GM OINTMENT 30 GM TUBE TOPICAL SCH (11:31)
[2022-06-19] MEDS: SACUBITRIL/VALSARTAN 24 MG-26 MG TABLET PO SCH ×2 (11:35→21:21)
[2022-06-19] MEDS: HYDROPHILIC CREAM 180 GM TUBE TOPICAL SCH ×2 (12:00→21:21)
--- NOTE | 2022-06-19 12:02 | P.PN ---
Subjective Patient is seen for follow-up for acute kidney injury and top of chronic kidney disease. Patient is noted to have moderate left hydronephrosis and urology has been consulted. Patient was scheduled for outpatient urology group procedure. Details are not available. Previous creatinine at 1.5 in December 2021 but we have a creatinine of 2.3 in February 2022. Currently maintained on IV fluids. Serum creatinine improved to 2.3 from 2.6. Patient reports good urine output Objective - Vital Signs Vital signs: Vital Signs Temp 97.9 F 06/19/22 07:35 Pulse 70 06/19/22 10:22 Resp 18 06/19/22 07:35 BP 129/75 06/19/22 10:22 Pulse Ox 96 06/19/22 07:35 FiO2 Intake & Output 06/18/22 06/19/22 06/19/22 18:59 06:59 18:59 Intake Total 600 500 Output Total 900 1500 1490 Balance -300 -1000 -1490 Weight 87.09 kg Intake: Oral 600 500 Output: Urine 900 1500 800 Post Void Residual 690 Other: Voiding Method External Catheter External Catheter External Catheter # Voids 1 - Exam Patient is awake, comfortable, in no acute distress Examination of the heart S1 and S2 Examination of the lungs bilateral breath sounds are heard Abdomen is soft nontender Examination of lower extremity shows no edema right leg. Left leg has 1+ edema and patient is not able to move her leg or foot drop is noted as well. - Labs CBC & Chem 7: 06/17/22 19:51 06/19/22 06:47 Labs: Abnormal Lab Results - Last 24 Hours (Table) 06/18/22 06/18/22 06/18/22 Range/Units 09:19 18:17 20:19 Chloride (98-107) mmol/L Carbon Dioxide (22-30) mmol/L BUN (7-17) mg/dL Creatinine (0.52-1.04) mg/dL Glucose (74-99) mg/dL POC Glucose (mg/dL) 187 H 220 H (70-110) mg/dL Hemoglobin A1c 8.1 H (0.0-6.0) % Total Protein (6.3-8.2) g/dL Albumin (3.5-5.0) g/dL 06/19/22 06/19/22 06/19/22 Range/Units 04:04 06:47 07:11 Chloride 111 H (98-107) mmol/L Carbon Dioxide 19 L (22-30) mmol/L BUN 82 H (7-17) mg/dL Creatinine 2.35 H (0.52-1.04) mg/dL Glucose 148 H (74-99) mg/dL POC Glucose (mg/dL) 168 H 155 H (70-110) mg/dL Hemoglobin A1c (0.0-6.0) % Total Protein 5.5 L (6.3-8.2) g/dL Albumin 2.6 L (3.5-5.0) g/dL 06/19/22 Range/Units 11:12 Chloride (98-107) mmol/L Carbon Dioxide (22-30) mmol/L BUN (7-17) mg/dL Creatinine (0.52-1.04) mg/dL Glucose (74-99) mg/dL POC Glucose (mg/dL) 259 H (70-110) mg/dL Hemoglobin A1c (0.0-6.0) % Total Protein (6.3-8.2) g/dL Albumin (3.5-5.0) g/dL Microbiology - Last 24 Hours (Table) 06/18/22 01:52 Urine Culture - Preliminary Urine,Voided Gram Neg Bacilli Assessment and Plan Assessment: 1. Acute kidney injury secondary to hypotension and hypoperfusion. Currently nonoliguric. Rule out obstructive uropathy. Ultrasound shows moderate left hydronephrosis. Urology has been consulted. Continue IV fluids 2. Chronic kidney disease NKF stage III with a creatinine of 1.5 on 01/17/2022 but elevated at 2.35 on 03/05/2022. Etiology is likely diabetic kidney disease and nephrosclerosis 3. UTI with urine culture growing gram-negative bacilli 4. Chronic A. fib maintained on amiodarone 5. Insulin-dependent type 2 diabetes maintained on SGL T2 inhibitors Plan: Continue IV fluids DC Bactrim and switch to IV Rocephin
[2022-06-19] MEDS: SODIUM CHLORIDE 0.9% 1,000 ML IV SCH (12:37)
[2022-06-19 17:25] LABS: Glucose,Whole Blood 198 mg/dL (70-110)
[2022-06-19] MEDS: TAMSULOSIN 0.4 MG CAP.ER.24H PO SCH (17:56)
[2022-06-19 20:08] LABS: Glucose,Whole Blood 238 mg/dL (70-110)
[2022-06-19] MEDS: ATORVASTATIN 20 MG TAB PO SCH (21:20)
[2022-06-19] MEDS: INSULIN DETEMIR (LEVEMIR) 100 UNIT/ML SYR SQ SCH (21:21)
[2022-06-20] MEDS: ACETAMINOPHEN TAB 325 MG TAB PO PRN (01:01)
[2022-06-20] MEDS: SODIUM CHLORIDE 0.9% 1,000 ML IV SCH ×2 (03:42→17:15)
[2022-06-20 07:06] LABS: Glucose,Whole Blood 166 mg/dL (70-110)
[2022-06-20] MEDS: INSULIN ASPART (NovoLOG) 100 UNIT/ML VIAL SQ SCH ×3 (08:34→17:57)
--- NOTE | 2022-06-20 08:46 | P.PN ---
Subjective Progress Note Date: 06/20/22 Principal diagnosis: CHAITANYA This is a 76-year-old female who is admitted after a transfer from [place] emergency department for elevated BUN/creatinine after pyelogram was canceled. UA showed a UTI on admission. Ultrasound showed left hydronephrosis. Nephrology and urology has been consulted. BUN and creatinine continue to improve, labs at time of dictation are not available today. Patient seen sitting in bed this morning eating breakfast, denies any current complaints. Dr. Chavez switched patient's Bactrim to ceftriaxone. Objective - Vital Signs Vital signs: Vital Signs Temp 98.0 F 06/20/22 07:53 Pulse 63 06/20/22 07:53 Resp 15 06/20/22 07:53 BP 114/71 06/20/22 07:53 Pulse Ox 100 06/20/22 07:53 FiO2 Intake & Output 06/19/22 06/20/22 06/20/22 18:59 06:59 18:59 Intake Total 950 418 Output Total 1940 500 Balance -990 -82 Intake: Intake, IV Titration 950 300 Amount Sodium Chloride 0.9% 1, 900 300 000 ml @ 75 mls/hr IV . [id number] [facility] Rx#:[id number] cefTRIAXone 1 gm In 50 Sodium Chloride 0.9% 50 ml @ 100 mls/hr IVPB Q24HR [facility] Rx#:[id number] Oral 118 Output: Urine 1250 500 Post Void Residual 690 Other: Voiding Method External Catheter External Catheter - Constitutional General appearance: Present: cooperative, no acute distress - EENT Eyes: Present: EOMI, PERRLA - Neck Neck: Present: normal ROM. Absent: lymphadenopathy, rigidity - Respiratory Respiratory: bilateral: CTA - Cardiovascular Heart sounds: normal: S1, S2 - Gastrointestinal General gastrointestinal: Present: soft. Absent: tenderness - Integumentary Integumentary Comment(s): Clean, dry, intact dressing to left heel Integumentary: Present: normal, normal turgor - Musculoskeletal Musculoskeletal: Present: generalized weakness - Psychiatric Psychiatric: Present: appropriate affect, intact judgment & insight - Labs CBC & Chem 7: 06/17/22 19:51 06/19/22 06:47 Labs: Abnormal Lab Results - Last 24 Hours (Table) 06/19/22 06/19/22 06/19/22 Range/Units 11:12 17:24 20:06 POC Glucose (mg/dL) 259 H 198 H 238 H (70-110) mg/dL 06/20/22 Range/Units 07:05 POC Glucose (mg/dL) 166 H (70-110) mg/dL Microbiology - Last 24 Hours (Table) 06/18/22 01:52 Urine Culture - Preliminary Urine,Voided Gram Neg Bacilli Assessment and Plan (1) CKD (chronic kidney disease) Current Visit: Yes Status: Acute Code(s): N18.9 - CHRONIC KIDNEY DISEASE, UNSPECIFIED SNOMED Code(s): 386515930 (2) Elevated BUN Current Visit: Yes Status: Acute Code(s): R79.9 - ABNORMAL FINDING OF BLOOD CHEMISTRY, UNSPECIFIED SNOMED Code(s): 310379874 (3) Diabetes Current Visit: No Status: Acute Code(s): E11.9 - TYPE 2 DIABETES MELLITUS WITHOUT COMPLICATIONS SNOMED Code(s): 24438837 (4) CAD (coronary artery disease) Current Visit: Yes Status: Acute Code(s): I25.10 - ATHSCL HEART DISEASE OF [place] CORONARY ARTERY W/O ANG PCTRS SNOMED Code(s): 74704859 (5) Hypertension Current Visit: Yes Status: Acute Code(s): I10 - ESSENTIAL (PRIMARY) HYPERTENSION SNOMED Code(s): 89675043 (6) UTI (urinary tract infection) Current Visit: Yes Status: Acute Code(s): N39.0 - URINARY TRACT INFECTION, SITE NOT SPECIFIED SNOMED Code(s): 59456262 Plan: Await results of labs today. Check CMP in the morning. Patient seen and evaluated by nurse practitioner, physician in agreement with plan
[2022-06-20] MEDS: IPRATROPIUM 0.5 MG/2.5 ML NEBU INHALATION SCH ×4 (08:55→19:34)
[2022-06-20 09:47] LABS: HCT 31.2 % (37.2-46.3); HGB 9.7 g/dL (12.0-15.0); MCH 28.1 pg (27.0-32.0); MCHC 31.1 g/dL (32.0-37.0); MCV 90.4 fL (80.0-97.0); Mean Platelet Volume 10.7 fL (9.5-12.2); NRBC Per 100 WBC 0 /100 WBCS (0.0-0.0); Platelet Count 313 X 10*3/uL (140-440); RBC 3.45 X 10*6/uL (4.10-5.20); RDW 14.7 % (11.5-14.5); WBC 5.61 X 10*3/uL (4.50-10.00)
[2022-06-20] MEDS: MULTIVITAMINS, THERA 1 EACH TAB PO SCH (09:55)
[2022-06-20] MEDS: DAPAGLIFLOZIN PROPANEDIOL 10 MG TABLET PO SCH (09:55)
[2022-06-20] MEDS: METOPROLOL TARTRATE 25 MG TAB PO SCH ×2 (09:55→17:12)
[2022-06-20] MEDS: AMIODARONE 100 MG TAB PO SCH (09:55)
[2022-06-20] MEDS: SACUBITRIL/VALSARTAN 24 MG-26 MG TABLET PO SCH ×2 (09:55→21:30)
[2022-06-20] MEDS: SPIRONOLACTONE 25 MG TAB PO SCH (09:55)
[2022-06-20] MEDS: ESCITALOPRAM 5 MG TAB PO SCH (09:55)
[2022-06-20] MEDS: PANTOPRAZOLE 40 MG TABLET PO SCH (09:55)
[2022-06-20] MEDS: HYDROPHILIC CREAM 180 GM TUBE TOPICAL SCH ×2 (09:56→20:18)
[2022-06-20] MEDS: COLLAGENASE 250 UNIT/GM OINTMENT 30 GM TUBE TOPICAL SCH (09:58)
[2022-06-20 09:59] LABS: ALT 12 U/L (8-44); AST 17 U/L (13-35); Albumin 2.8 g/dL (3.8-4.9); Albumin/Globulin Ratio 1.04 (1.60-3.17); Alkaline Phosphatase 82 U/L (41-126); BUN/Creat Ratio 31.45 Ratio (12.00-20.00); Blood Urea Nitrogen 62.9 mg/dL (9.0-27.0); Calcium 9.1 mg/dL (8.7-10.3); Carbon Dioxide 17.1 mmol/L (20.0-27.5); Chloride 110 mmol/L (96-109); Globulin 2.7 g/dL (1.6-3.3); Glucose 172 mg/dL (70-110); Non-African American GFR(CKD) 23.3 (60.0-200.0); Potassium 5.3 mmol/L (3.5-5.5); Sodium 136 mmol/L (135-145); Total Bilirubin <0.15 mg/dL (0.30-1.20); Total Protein 5.5 g/dL (6.2-8.2)
[2022-06-20 11:15] LABS: Glucose,Whole Blood 313 mg/dL (70-110)
--- NOTE | 2022-06-20 11:53 | P.PN ---
Subjective Progress Note Date: 06/20/22 The patient is a 76-year-old female with a past medical history significant for atrial fibrillation, coronary artery disease, diabetes mellitus, DVT, hypertension, SD, and stage III CKD. The patient was a transfer from [place] to our emergency department on 06/17/22 for a nephrology evaluation. The patient was to undergo an outpatient cystoscopy/pyelogram which was apparently canceled due to elevated BUN and creatinine. Previous abdominal CT on 06/03/22 showed mild left hydronephrosis. Kidneys/renal and bladder ultrasound from 06/18/22 shows mild to moderate left hydronephrosis with no definite nephrolithiasis. There is debris within the bladder correlate with urinalysis infection/cystitis versus hemorrhage. The patient's baseline creatinine is around 1.5 mg/dL. Her creatinine upon admission was 2.68, and is 2.35 today despite IV hydration. Urinalysis positive for nitrates, leukocyte es terase, bacteria, and WBC. Urine culture pending. 06/19 The patient denies any history of prior kidney stones, recurrent UTIs, or cancer. The patient did undergo a bladder suspension in 1992. The patient was scheduled to undergo a cystoscopy, bilateral retrograde pyelogram, possible biopsy yesterday with Dr. Acosta. The procedure was canceled due to elevated BUN and creatinine levels. No leukocytosis, patient is afebrile preliminary urine culture growing gram-negative bacilli. The patient denies any dysuria or hematuria. She does report urinary frequency and feeling as though she is not emptying her bladder completely. The patient is currently receiving Bactrim DS. The patient will be rescheduled for her procedure once her infection clears, probably next week. The patient's son, Danish, was called and updated. Objective - Vital Signs Vital signs: Vital Signs Temp 98.0 F 06/20/22 07:53 Pulse 85 06/20/22 09:06 Resp 15 06/20/22 07:53 BP 114/71 06/20/22 07:53 Pulse Ox 100 06/20/22 07:53 FiO2 Intake & Output 06/19/22 06/20/22 06/20/22 18:59 06:59 18:59 Intake Total 950 418 Output Total 1940 500 450 Balance -990 -82 -450 Intake: Intake, IV Titration 950 300 Amount Sodium Chloride 0.9% 1, 900 300 000 ml @ 75 mls/hr IV . [id number] [facility] Rx#:[id number] cefTRIAXone 1 gm In 50 Sodium Chloride 0.9% 50 ml @ 100 mls/hr IVPB Q24HR [facility] Rx#:[id number] Oral 118 Output: Urine 1250 500 450 Post Void Residual 690 Other: Voiding Method External Catheter External Catheter External Catheter - Exam General: Well developed, well nourished. No acute distress. Nontoxic-appearing HEENT: Head is atraumatic, normocephalic. Lungs: Respirations even and nonlabored. On RA Abdomen/GI: Soft, non-distended. No guarding, rigidity, or abdominal tenderness. : External catheter in place with cloudy yellow urine Skin: Warm and dry,dressing to left heel CDI Neurologic: Alert and oriented 3, CN II-XII grossly intact. No focal deficits. Psychiatric: Appropriate mood and affect. - Labs CBC & Chem 7: 06/20/22 05:54 06/20/22 05:54 Labs: Abnormal Lab Results - Last 24 Hours (Table) 06/19/22 06/19/22 06/20/22 Range/Units 17:24 20:06 05:54 RBC 3.45 L (4.10-5.20) X 10*6/uL Hgb 9.7 L (12.0-15.0) g/dL Hct 31.2 L (37.2-46.3) % MCHC 31.1 L (32.0-37.0) g/dL RDW 14.7 H (11.5-14.5) % Chloride (96-109) mmol/L Carbon Dioxide (20.0-27.5) mmol/L Anion Gap (10.00-18.00) mmol/L BUN (9.0-27.0) mg/dL Creatinine (0.6-1.5) mg/dL Est GFR (CKD-EPI)AfAm (60.0-200.0) Est GFR (CKD-EPI)NonAf (60.0-200.0) BUN/Creatinine Ratio (12.00-20.00) Ratio Glucose (70-110) mg/dL POC Glucose (mg/dL) 198 H 238 H (70-110) mg/dL Total Bilirubin (0.30-1.20) mg/dL Total Protein (6.2-8.2) g/dL Albumin (3.8-4.9) g/dL Albumin/Globulin Ratio (1.60-3.17) g/dL 06/20/22 06/20/22 06/20/22 Range/Units 05:54 07:05 11:13 RBC (4.10-5.20) X 10*6/uL Hgb (12.0-15.0) g/dL Hct (37.2-46.3) % MCHC (32.0-37.0) g/dL RDW (11.5-14.5) % Chloride 110 H (96-109) mmol/L Carbon Dioxide 17.1 L (20.0-27.5) mmol/L Anion Gap 8.90 L (10.00-18.00) mmol/L BUN 62.9 H (9.0-27.0) mg/dL Creatinine 2.0 H (0.6-1.5) mg/dL Est GFR (CKD-EPI)AfAm 27.0 L (60.0-200.0) Est GFR (CKD-EPI)NonAf 23.3 L (60.0-200.0) BUN/Creatinine Ratio 31.45 H (12.00-20.00) Ratio Glucose 172 H (70-110) mg/dL POC Glucose (mg/dL) 166 H 313 H (70-110) mg/dL Total Bilirubin <0.15 L (0.30-1.20) mg/dL Total Protein 5.5 L (6.2-8.2) g/dL Albumin 2.8 L (3.8-4.9) g/dL Albumin/Globulin Ratio 1.04 L (1.60-3.17) g/dL Microbiology - Last 24 Hours (Table) 06/18/22 01:52 Urine Culture - Preliminary Urine,Voided Gram Neg Bacilli Assessment and Plan Assessment: The patient is afebrile, vital signs stable and she is on room air. No leukocytosis with a WBC 5.61. Serum creatinine trending down and is 2.0 today. Preliminary urine culture growing gram-negative bacilli. Bactrim DS changed to Rocephin per nephrology. The patient will be rescheduled for her cystoscopy with retrograde pyelogram and possible ureteroscopy after her infection clears and can be done on outpatient basis. (1) Hydronephrosis, left Current Visit: Yes Status: Acute Code(s): N13.30 - UNSPECIFIED HYDRONEPHROSIS SNOMED Code(s): 80919576 Plan: - Continue Rocephin - Awaiting finalization of urine culture - Monitor creatinine - Check PVR - Continue Flomax Thank you for this consultation Impression and plan of care have been directed as dictated by the signing physician. Kim Morales nurse practitioner acting as scribe for signing physician. Kim Morales [facility] Palliative Care/Urology Spectralink [phone] Email: [email or web address] The patient has been examined and interviewed by me. I concur with the above- mentioned note. Hydronephrosis be evaluated after the infection has been treated. Pancho Bourne M.D.
--- NOTE | 2022-06-20 13:03 | P.PN ---
Subjective Patient is seen for follow-up for acute kidney injury and top of chronic kidney disease. Patient is noted to have moderate left hydronephrosis and urology has been consulted. Patient was scheduled for outpatient urology group procedure. Details are not available. Previous creatinine at 1.5 in December 2021 but we have a creatinine of 2.3 in February 2022. Currently maintained on IV fluids. Serum creatinine improved to 2.3 from 2.6. Patient reports good urine output. Urine culture growing gram-negative bacilli Objective - Vital Signs Vital signs: Vital Signs Temp 98.2 F 06/20/22 12:38 Pulse 62 06/20/22 12:38 Resp 16 06/20/22 12:38 BP 107/56 06/20/22 12:38 Pulse Ox 96 06/20/22 12:38 FiO2 Intake & Output 06/19/22 06/20/22 06/20/22 18:59 06:59 18:59 Intake Total 950 418 Output Total 1940 500 450 Balance -990 -82 -450 Intake: Intake, IV Titration 950 300 Amount Sodium Chloride 0.9% 1, 900 300 000 ml @ 75 mls/hr IV . [id number] [facility] Rx#:[id number] cefTRIAXone 1 gm In 50 Sodium Chloride 0.9% 50 ml @ 100 mls/hr IVPB Q24HR [facility] Rx#:[id number] Oral 118 Output: Urine 1250 500 450 Post Void Residual 690 Other: Voiding Method External Catheter External Catheter External Catheter - Exam Patient is awake, comfortable, in no acute distress Examination of the heart S1 and S2 Examination of the lungs bilateral breath sounds are heard Abdomen is soft nontender Examination of lower extremity shows no edema right leg. Left leg has 1+ edema and patient is not able to move her leg or foot drop is noted as well. - Labs CBC & Chem 7: 06/20/22 05:54 06/20/22 05:54 Labs: Abnormal Lab Results - Last 24 Hours (Table) 06/19/22 06/19/22 06/20/22 Range/Units 17:24 20:06 05:54 RBC 3.45 L (4.10-5.20) X 10*6/uL Hgb 9.7 L (12.0-15.0) g/dL Hct 31.2 L (37.2-46.3) % MCHC 31.1 L (32.0-37.0) g/dL RDW 14.7 H (11.5-14.5) % Chloride (96-109) mmol/L Carbon Dioxide (20.0-27.5) mmol/L Anion Gap (10.00-18.00) mmol/L BUN (9.0-27.0) mg/dL Creatinine (0.6-1.5) mg/dL Est GFR (CKD-EPI)AfAm (60.0-200.0) Est GFR (CKD-EPI)NonAf (60.0-200.0) BUN/Creatinine Ratio (12.00-20.00) Ratio Glucose (70-110) mg/dL POC Glucose (mg/dL) 198 H 238 H (70-110) mg/dL Total Bilirubin (0.30-1.20) mg/dL Total Protein (6.2-8.2) g/dL Albumin (3.8-4.9) g/dL Albumin/Globulin Ratio (1.60-3.17) g/dL 06/20/22 06/20/22 06/20/22 Range/Units 05:54 07:05 11:13 RBC (4.10-5.20) X 10*6/uL Hgb (12.0-15.0) g/dL Hct (37.2-46.3) % MCHC (32.0-37.0) g/dL RDW (11.5-14.5) % Chloride 110 H (96-109) mmol/L Carbon Dioxide 17.1 L (20.0-27.5) mmol/L Anion Gap 8.90 L (10.00-18.00) mmol/L BUN 62.9 H (9.0-27.0) mg/dL Creatinine 2.0 H (0.6-1.5) mg/dL Est GFR (CKD-EPI)AfAm 27.0 L (60.0-200.0) Est GFR (CKD-EPI)NonAf 23.3 L (60.0-200.0) BUN/Creatinine Ratio 31.45 H (12.00-20.00) Ratio Glucose 172 H (70-110) mg/dL POC Glucose (mg/dL) 166 H 313 H (70-110) mg/dL Total Bilirubin <0.15 L (0.30-1.20) mg/dL Total Protein 5.5 L (6.2-8.2) g/dL Albumin 2.8 L (3.8-4.9) g/dL Albumin/Globulin Ratio 1.04 L (1.60-3.17) g/dL Microbiology - Last 24 Hours (Table) 06/18/22 01:52 Urine Culture - Preliminary Urine,Voided Gram Neg Bacilli Assessment and Plan Assessment: 1. Acute kidney injury secondary to hypotension and hypoperfusion. Currently nonoliguric. Rule out obstructive uropathy. Ultrasound shows moderate left hyd ronephrosis. Urology has been consulted. Continue IV fluids 2. Chronic kidney disease NKF stage III with a creatinine of 1.5 on 01/17/2022 but elevated at 2.35 on 03/05/2022. Etiology is likely diabetic kidney disease and nephrosclerosis 3. UTI with urine culture growing gram-negative bacilli 4. Chronic A. fib maintained on amiodarone 5. Insulin-dependent type 2 diabetes maintained on SGL T2 inhibitors 6. Non gap metabolic acidosis secondary to acute kidney injury and IV fluids Plan: Continue IV fluids Continue antibiotics Add oral sodium bicarb
[2022-06-20] MEDS: SODIUM BICARBONATE TAB 650 MG TAB PO SCH ×2 (14:01→21:30)
[2022-06-20] MEDS: traMADol 50 MG TAB PO PRN ×2 (14:04→20:14)
[2022-06-20 17:09] LABS: Glucose,Whole Blood 172 mg/dL (70-110)
[2022-06-20] MEDS: TAMSULOSIN 0.4 MG CAP.ER.24H PO SCH (17:14)
[2022-06-20] MEDS: ATORVASTATIN 20 MG TAB PO SCH (20:14)
[2022-06-20 20:19] LABS: Glucose,Whole Blood 171 mg/dL (70-110)
[2022-06-20] MEDS: INSULIN DETEMIR (LEVEMIR) 100 UNIT/ML SYR SQ SCH ×2 (21:30→21:36)
[2022-06-21] MEDS: traMADol 50 MG TAB PO PRN ×3 (02:06→20:10)
[2022-06-21] MEDS: SODIUM CHLORIDE 0.9% 1,000 ML IV SCH ×2 (02:10→20:04)
[2022-06-21 07:05] LABS: Glucose,Whole Blood 182 mg/dL (70-110)
[2022-06-21] MEDS: MULTIVITAMINS, THERA 1 EACH TAB PO SCH (08:42)
[2022-06-21] MEDS: HYDROPHILIC CREAM 180 GM TUBE TOPICAL SCH ×2 (08:42→20:16)
[2022-06-21] MEDS: SPIRONOLACTONE 25 MG TAB PO SCH (08:42)
[2022-06-21] MEDS: PANTOPRAZOLE 40 MG TABLET PO SCH (08:42)
[2022-06-21] MEDS: AMIODARONE 100 MG TAB PO SCH (08:42)
[2022-06-21] MEDS: SODIUM BICARBONATE TAB 650 MG TAB PO SCH ×2 (08:42→20:10)
[2022-06-21] MEDS: SACUBITRIL/VALSARTAN 24 MG-26 MG TABLET PO SCH ×2 (08:42→20:10)
[2022-06-21] MEDS: ESCITALOPRAM 5 MG TAB PO SCH (08:42)
[2022-06-21] MEDS: DAPAGLIFLOZIN PROPANEDIOL 10 MG TABLET PO SCH (08:42)
[2022-06-21] MEDS: METOPROLOL TARTRATE 25 MG TAB PO SCH ×2 (08:42→17:49)
[2022-06-21] MEDS: INSULIN ASPART (NovoLOG) 100 UNIT/ML VIAL SQ SCH ×3 (08:48→17:49)
[2022-06-21] MEDS: IPRATROPIUM 0.5 MG/2.5 ML NEBU INHALATION SCH ×4 (09:13→20:07)
--- NOTE | 2022-06-21 10:19 | P.PN ---
Subjective Progress Note Date: 06/21/22 The patient is a 76-year-old female with a past medical history significant for atrial fibrillation, coronary artery disease, diabetes mellitus, DVT, hypertension, [place], and stage III CKD. The patient was a transfer from [place] to our emergency department on 06/17/22 for a nephrology evaluation. The patient was to undergo an outpatient cystoscopy/pyelogram which was apparently canceled due to elevated BUN and creatinine. Previous abdominal CT on 06/03/22 showed mild left hydronephrosis. Kidneys/renal and bladder ultrasound from 06/18/22 shows mild to moderate left hydronephrosis with no definite nephrolithiasis. There is debris within the bladder correlate with urinalysis infection/cystitis versus hemorrhage. The patient's baseline creatinine is around 1.5 mg/dL. Her creatinine upon admission was 2.68, and is 2.35 today despite IV hydration. Urinalysis positive for nitrates, leukocyte es terase, bacteria, and WBC. Urine culture pending. 06/19 The patient denies any history of prior kidney stones, recurrent UTIs, or cancer. The patient did undergo a bladder suspension in 1992. The patient was scheduled to undergo a cystoscopy, bilateral retrograde pyelogram, possible biopsy yesterday with Dr. Acosta. The procedure was canceled due to elevated BUN and creatinine levels. No leukocytosis, patient is afebrile preliminary urine culture growing gram-negative bacilli. The patient denies any dysuria or hematuria. She does report urinary frequency and feeling as though she is not emptying her bladder completely. The patient is currently receiving Bactrim DS. The patient will be rescheduled for her procedure once her infection clears, probably next week. The patient's son, Danish, was called and updated. 06/20 The patient is afebrile, vital signs stable and she is on room air. No leukocytosis with a WBC 5.61. Serum creatinine trending down and is 2.0 today. Preliminary urine culture growing gram-negative bacilli. Bactrim DS changed to Rocephin per nephrology. The patient will be rescheduled for her cystoscopy with retrograde pyelogram and possible ureteroscopy after her infection clears and can be done on outpatient basis. Objective - Vital Signs Vital signs: Vital Signs Temp 97.6 F 06/21/22 07:05 Pulse 74 06/21/22 07:05 Resp 16 06/21/22 07:05 BP 108/54 06/21/22 07:05 Pulse Ox 97 06/21/22 07:05 FiO2 Intake & Output 06/20/22 06/21/22 06/21/22 18:59 06:59 18:59 Intake Total 240 Output Total 850 1000 Balance -850 -760 Intake: Oral 240 Output: Urine 850 1000 Other: Voiding Method External Catheter External Catheter - Exam General: Well developed, well nourished. No acute distress. [id number] HEENT: Head is atraumatic, normocephalic. Lungs: Respirations even and nonlabored. On RA Abdomen/GI: Soft, non-distended. No guarding, rigidity, or abdominal tenderness. : External catheter in place with cloudy yellow urine - clearing Skin: Warm and dry,dressing to left heel CDI Neurologic: Alert and oriented 3, CN II-XII grossly intact. No focal deficits. Psychiatric: Appropriate mood and affect. - Labs CBC & Chem 7: 06/20/22 05:54 06/21/22 05:58 Labs: Abnormal Lab Results - Last 24 Hours (Table) 06/20/22 06/20/22 06/20/22 Range/Units 05:54 05:54 11:13 RBC 3.45 L (4.10-5.20) X 10*6/uL Hgb 9.7 L (12.0-15.0) g/dL Hct 31.2 L (37.2-46.3) % MCHC 31.1 L (32.0-37.0) g/dL RDW 14.7 H (11.5-14.5) % Chloride 110 H (96-109) mmol/L Carbon Dioxide 17.1 L (20.0-27.5) mmol/L Anion Gap 8.90 L (10.00-18.00) mmol/L BUN 62.9 H (9.0-27.0) mg/dL Creatinine 2.0 H (0.6-1.5) mg/dL Est GFR (CKD-EPI)AfAm 27.0 L (60.0-200.0) Est GFR (CKD-EPI)NonAf 23.3 L (60.0-200.0) BUN/Creatinine Ratio 31.45 H (12.00-20.00) Ratio Glucose 172 H (70-110) mg/dL POC Glucose (mg/dL) 313 H (70-110) mg/dL Total Bilirubin <0.15 L (0.30-1.20) mg/dL Total Protein 5.5 L (6.2-8.2) g/dL Albumin 2.8 L (3.8-4.9) g/dL Albumin/Globulin Ratio 1.04 L (1.60-3.17) g/dL 06/20/22 06/20/22 06/21/22 Range/Units 17:08 20:18 07:03 RBC (4.10-5.20) X 10*6/uL Hgb (12.0-15.0) g/dL Hct (37.2-46.3) % MCHC (32.0-37.0) g/dL RDW (11.5-14.5) % Chloride (96-109) mmol/L Carbon Dioxide (20.0-27.5) mmol/L Anion Gap (10.00-18.00) mmol/L BUN (9.0-27.0) mg/dL Creatinine (0.6-1.5) mg/dL Est GFR (CKD-EPI)AfAm (60.0-200.0) Est GFR (CKD-EPI)NonAf (60.0-200.0) BUN/Creatinine Ratio (12.00-20.00) Ratio Glucose (70-110) mg/dL POC Glucose (mg/dL) 172 H 171 H 182 H (70-110) mg/dL Total Bilirubin (0.30-1.20) mg/dL Total Protein (6.2-8.2) g/dL Albumin (3.8-4.9) g/dL Albumin/Globulin Ratio (1.60-3.17) g/dL Microbiology - Last 24 Hours (Table) 06/18/22 01:52 Urine Culture - Final Urine,Voided Proteus mirabilis Assessment and Plan Assessment: The patient is resting in bed and eating breakfast. She is afebrile, no leukocytosis. Serum creatinine continues to improve. Urine culture growing Proteus mirabilis. Check PVR to rule out urinary retention. The patient is stable to be discharged from a urological standpoint. It is recommended she be sent home on Keflex for 10 days and follow up with Dr. Acosta in 1 week. (1) Hydronephrosis, left Current Visit: Yes Status: Acute Code(s): N13.30 - UNSPECIFIED HYDRONEPHROSIS SNOMED Code(s): 42457740 Plan: - Continue antibiotics - Monitor creatinine - Check PVR - Continue Flomax - Patient may be discharged from a urological standpoint Thank you for this consultation Impression and plan of care have been directed as dictated by the signing physician. Kim Morales nurse practitioner acting as scribe for signing physician. Kim Morales [facility] Palliative Care/Urology Spectralink [phone] Email: [email or web address] The patient is in retention. She can go home with a ray. SHe will need to be reassessed by Dr Acosta as an op Pancho Bourne MD
[2022-06-21] MEDS: COLLAGENASE 250 UNIT/GM OINTMENT 30 GM TUBE TOPICAL SCH (11:06)
[2022-06-21 11:11] LABS: ALT 13 U/L (8-44); AST 12 U/L (13-35); African American GFR (CKD) 35.4 (60.0-200.0); Albumin 2.8 g/dL (3.8-4.9); Albumin/Globulin Ratio 1.12 (1.60-3.17); Alkaline Phosphatase 76 U/L (41-126); BUN/Creat Ratio 31.06 Ratio (12.00-20.00); Blood Urea Nitrogen 49.7 mg/dL (9.0-27.0); Carbon Dioxide 19.5 mmol/L (20.0-27.5); Chloride 110 mmol/L (96-109); Globulin 2.5 g/dL (1.6-3.3); Glucose 172 mg/dL (70-110); Non-African American GFR(CKD) 30.5 (60.0-200.0); Sodium 136 mmol/L (135-145); Total Bilirubin <0.15 mg/dL (0.30-1.20); Total Protein 5.3 g/dL (6.2-8.2)
[2022-06-21 11:39] LABS: Glucose,Whole Blood 240 mg/dL (70-110)
--- NOTE | 2022-06-21 12:43 | P.DS ---
Providers Date of admission: 06/17/22 21:14 Attending physician: Luis Shirley Consults: 06/17/22 21:14 Consult Physician Routine Consulting Provider: Veronica Chavez Consult Reason/Comments: CKD Do you want consulting provider notified?: Yes, Notify in am 06/19/22 09:19 Consult Physician Routine Consulting Provider: Pancho Bourne Consult Reason/Comments: left hydronephrosis Do you want consulting provider notified?: Yes Primary care physician: Luis Shirley - Discharge Diagnosis(es) (1) CAD (coronary artery disease) Current Visit: Yes Status: Acute (2) CKD (chronic kidney disease) Current Visit: Yes Status: Acute (3) Elevated BUN Current Visit: Yes Status: Acute (4) Hypertension Current Visit: Yes Status: Acute (5) UTI (urinary tract infection) Current Visit: Yes Status: Acute (6) Atrial fibrillation Current Visit: No Status: Acute (7) Diabetes with skin ulcer Current Visit: No Status: Acute (8) Venous insufficiency Current Visit: No Status: Acute Hospital Course: The patient was admitted for acute kidney injury with history of UTI. The patient was stabilized nephrology was consulted as well as urology. History of left hydronephrosis is noted and this will be continued workup. Underlying history of cellulitis. The patient was treated with ceftriaxone will be discharged on Ceftin once cleared by consultants. She'll discharged in stable but guarded condition to follow-up with me in one week but she is living in the [facility] at this time. Patient Condition at Discharge: Stable Plan - Discharge Summary Discharge Rx Participant: No New Discharge Prescriptions: New Sodium Bicarbonate Tab 650 mg PO BID #60 tab traMADol HCl [Ultram] 50 mg PO QID PRN tab PRN Reason: Breakthrough Pain cefUROXime axetiL [Ceftin] 500 mg PO BID 1 Days #10 tab Continue Ipratropium [place] [Atrovent Hfa] 2 puff INHALATION RT-QID@09,13,17,21 Insulin Glargine,Hum.rec.anlog [[place] Solostar] 30 units SQ DIRECTED ALPRAZolam [Xanax] 0.25 mg PO DAILY@0900 Docusate [Colace] 100 mg PO Q12H PRN PRN Reason: Constipation Escitalopram [Lexapro] 5 mg PO DAILY@0900 Insulin Glargine,Hum.rec.anlog [Toujeo Max Solostar] 20 units SQ HS@2100 Tamsulosin [Flomax] 0.4 mg PO DAILY@1700 Collagenase [Santyl Ointment] 1 applic TOPICAL DAILY Spironolactone 25 mg PO DAILY@0900 Multivitamins, Thera [Multivitamin (formulary)] 1 tab PO DAILY@0900 Calcium Carbonate [Tums] 500 mg PO Q4H PRN PRN Reason: Indigestion Calazime Skin Protectant Paste 1 applic TOPICAL BID Acetaminophen Tab [Tylenol] 650 mg PO Q6H PRN PRN Reason: Pain Hydrophilic Cream [Triad (Kerodex geq)] 1 applic TOPICAL BID Apixaban [Eliquis] 5 mg PO DIRECTED Dapagliflozin Propanediol [Farxiga] 10 mg PO DIRECTED Atorvastatin [Lipitor] 20 mg PO HS@2100 Sacubitril/Valsartan [Entresto 24 mg-26 mg Tablet] 1 tab PO BID@0900,2100 Amiodarone [Cordarone] 100 mg PO DAILY@0900 Magnesium Hydroxide [Milk of Magnesia] 2,400 mg PO DAILY PRN PRN Reason: Constipation Metoprolol Tartrate [Lopressor] 25 mg PO BID@0900,1700 Omeprazole [PriLOSEC] 20 mg PO DAILY@0900 Albuterol Sulfate [Ventolin HFA] 2 puff INHALATION RT-Q4H PRN PRN Reason: Shortness Of Breath Prostat Sugar Free (100kcal & 15gm Protein) 30 ml PO DAILY@0900 Insulin Glargine,Hum.rec.anlog [Toujeo Max Solostar] 16 units SQ ONCE PRN PRN Reason: 06/18/22 BEFORE PROCEDURE Discontinued HYDROcodone/APAP 5-325MG [[place] 5-325] 1 tab PO Q24H PRN PRN Reason: Pain HYDROcodone/APAP 7.5-325MG [[place] 7.5-325] 1 tab PO TID@0900,1300,2100 Discharge Medication List Apixaban [Eliquis] 5 mg PO DIRECTED 08/13/20 [History] Ipratropium [place] [Atrovent Hfa] 2 puff INHALATION RT-QID@09,13,17,21 08/13/20 [History] Atorvastatin [Lipitor] 20 mg PO HS@2100 01/12/22 [History] Dapagliflozin Propanediol [Farxiga] 10 mg PO DIRECTED 01/12/22 [History] Insulin Glargine,Hum.rec.anlog [Toujeo Max Solostar] 30 units SQ DIRECTED 01/12/22 [History] Sacubitril/Valsartan [Entresto 24 mg-26 mg Tablet] 1 tab PO BID@0900,209901/12/22 [History] ALPRAZolam [Xanax] 0.25 mg PO DAILY@0900 02/08/22 [History] Amiodarone [Cordarone] 100 mg PO DAILY@0903/05/22 [History] Docusate [Colace] 100 mg PO Q12H PRN 03/05/22 [History] Escitalopram [Lexapro] 5 mg PO DAILY@0903/05/22 [History] Insulin Glargine,Hum.rec.anlog [Toujeo Max Solostar] 20 units SQ HS@209903/05/22 [History] Magnesium Hydroxide [Milk of Magnesia] 2,400 mg PO DAILY PRN 03/05/22 [History] Metoprolol Tartrate [Lopressor] 25 mg PO BID@0900,1700 03/05/22 [History] Omeprazole [PriLOSEC] 20 mg PO DAILY@89903/05/22 [History] Tamsulosin [Flomax] 0.4 mg PO DAILY@169903/05/22 [History] Acetaminophen Tab [Tylenol] 650 mg PO Q6H PRN 06/17/22 [History] Albuterol Sulfate [Ventolin HFA] 2 puff INHALATION RT-Q4H PRN 06/17/22 [History] Calazime Skin Protectant Paste 1 applic TOPICAL BID 06/17/22 [History] Calcium Carbonate [Tums] 500 mg PO Q4H PRN 06/17/22 [History] Collagenase [Santyl Ointment] 1 applic TOPICAL DAILY 06/17/22 [History] Hydrophilic Cream [Triad (Kerodex geq)] 1 applic TOPICAL BID 06/17/22 [History] Insulin Glargine,Hum.rec.anlog [Toujeo Max Solostar] 16 units SQ ONCE PRN 06/17/22 [History] Multivitamins, Thera [Multivitamin (formulary)] 1 tab PO DAILY@0906/17/22 [History] Prostat Sugar Free (100kcal & 15gm Protein) 30 ml PO DAILY@0906/17/22 [History] Spironolactone 25 mg PO DAILY@0906/17/22 [History] Sodium Bicarbonate Tab 650 mg PO BID #60 tab 06/21/22 [Rx] cefUROXime axetiL [Ceftin] 500 mg PO BID 1 Days #10 tab 06/21/22 [Rx] traMADol HCl [Ultram] 50 mg PO QID PRN tab 06/21/22 [Rx] Follow up Appointment(s)/Referral(s): None,Stated [REFERRING] - 1 Week Luis Shirley MD [Primary Care Provider] - 1 Week
[2022-06-21] MEDS ORDERED: HYDROmorphone 0.5 MG/0.5 ML SYRINGE IM STA (13:54)
--- NOTE | 2022-06-21 16:11 | P.PN ---
Subjective Patient is seen for follow-up for acute kidney injury and top of chronic kidney disease. Patient is noted to have moderate left hydronephrosis and urology has been consulted. Patient was scheduled for outpatient urology group procedure. Details are not available. Previous creatinine at 1.5 in December 2021 but we have a creatinine of 2.3 in February 2022. Currently maintained on IV fluids. Serum creatinine improved to 1.6 from 2.6. Patient reports good urine output. Urine culture growing gram-negative bacilli No complaints today. Objective - Vital Signs Vital signs: Vital Signs Temp 98.0 F 06/21/22 12:39 Pulse 61 06/21/22 12:39 Resp 20 06/21/22 12:39 BP 128/66 06/21/22 12:39 Pulse Ox 96 06/21/22 12:39 FiO2 Intake & Output 06/20/22 06/21/22 06/21/22 18:59 06:59 18:59 Intake Total 240 Output Total 850 1000 2631 Balance -114 -680 -2404 Weight 87.09 kg Intake: Oral 240 Output: Urine 850 1000 1925 Uretheral (Merida) 700 Post Void Residual 706 Other: Voiding Method External Catheter External Catheter External Catheter - Exam Patient is awake, comfortable, in no acute distress Examination of the heart S1 and S2 Examination of the lungs bilateral breath sounds are heard Abdomen is soft nontender Examination of lower extremity shows no edema right leg. Left leg has 1+ edema and patient is not able to move her leg or foot drop is noted as well. - Labs CBC & Chem 7: 06/20/22 05:54 06/21/22 05:58 Labs: Abnormal Lab Results - Last 24 Hours (Table) 06/20/22 06/20/22 06/21/22 Range/Units 17:08 20:18 05:58 Chloride 110 H (96-109) mmol/L Carbon Dioxide 19.5 L (20.0-27.5) mmol/L Anion Gap 6.50 L (10.00-18.00) mmol/L BUN 49.7 H (9.0-27.0) mg/dL Creatinine 1.6 H (0.6-1.5) mg/dL Est GFR (CKD-EPI)AfAm 35.4 L (60.0-200.0) Est GFR (CKD-EPI)NonAf 30.5 L (60.0-200.0) BUN/Creatinine Ratio 31.06 H (12.00-20.00) Ratio Glucose 172 H (70-110) mg/dL POC Glucose (mg/dL) 172 H 171 H (70-110) mg/dL Total Bilirubin <0.15 L (0.30-1.20) mg/dL AST 12 L (13-35) U/L Total Protein 5.3 L (6.2-8.2) g/dL Albumin 2.8 L (3.8-4.9) g/dL Albumin/Globulin Ratio 1.12 L (1.60-3.17) g/dL 06/21/22 06/21/22 Range/Units 07:03 11:38 Chloride (96-109) mmol/L Carbon Dioxide (20.0-27.5) mmol/L Anion Gap (10.00-18.00) mmol/L BUN (9.0-27.0) mg/dL Creatinine (0.6-1.5) mg/dL Est GFR (CKD-EPI)AfAm (60.0-200.0) Est GFR (CKD-EPI)NonAf (60.0-200.0) BUN/Creatinine Ratio (12.00-20.00) Ratio Glucose (70-110) mg/dL POC Glucose (mg/dL) 182 H 240 H (70-110) mg/dL Total Bilirubin (0.30-1.20) mg/dL AST (13-35) U/L Total Protein (6.2-8.2) g/dL Albumin (3.8-4.9) g/dL Albumin/Globulin Ratio (1.60-3.17) g/dL Microbiology - Last 24 Hours (Table) 06/18/22 01:52 Urine Culture - Final Urine,Voided Proteus mirabilis Assessment and Plan Assessment: 1. Acute kidney injury secondary to hypotension and hypoperfusion and obstructive uropathy. Currently nonoliguric. . Ultrasound shows moderate left hydronephrosis. Urology has been consulted. Continue IV fluids 2. Chronic kidney disease NKF stage III with a creatinine of 1.5 on 01/17/2022 but elevated at 2.35 on 03/05/2022. Etiology is likely diabetic kidney disease and nephrosclerosis 3. UTI with urine culture growing gram-negative bacilli 4. Chronic A. fib maintained on amiodarone 5. Insulin-dependent type 2 diabetes maintained on SGL T2 inhibitors 6. Non gap metabolic acidosis secondary to acute kidney injury and IV fluids Plan: OK to discharge. F/u as op with Urology and nephrology.
[2022-06-21 17:19] LABS: Glucose,Whole Blood 163 mg/dL (70-110)
[2022-06-21] MEDS: TAMSULOSIN 0.4 MG CAP.ER.24H PO SCH (17:49)
[2022-06-21 19:47] LABS: Glucose,Whole Blood 148 mg/dL (70-110)
[2022-06-21] MEDS: INSULIN DETEMIR (LEVEMIR) 100 UNIT/ML SYR SQ SCH (20:07)
[2022-06-21] MEDS: ATORVASTATIN 20 MG TAB PO SCH (20:10)
[2022-06-22] MEDS: traMADol 50 MG TAB PO PRN ×2 (02:14→08:46)
[2022-06-22] MEDS: CALCIUM CARBONATE 500 MG CHEWABLE PO PRN ×2 (02:14→15:32)
[2022-06-22 07:17] LABS: Glucose,Whole Blood 210 mg/dL (70-110)
[2022-06-22] MEDS: IPRATROPIUM 0.5 MG/2.5 ML NEBU INHALATION SCH ×3 (08:00→16:45)
[2022-06-22] MEDS: INSULIN ASPART (NovoLOG) 100 UNIT/ML VIAL SQ SCH ×2 (08:45→13:11)
[2022-06-22] MEDS: MULTIVITAMINS, THERA 1 EACH TAB PO SCH (08:45)
[2022-06-22] MEDS: PANTOPRAZOLE 40 MG TABLET PO SCH (08:45)
[2022-06-22] MEDS: ESCITALOPRAM 5 MG TAB PO SCH (08:45)
[2022-06-22] MEDS: SACUBITRIL/VALSARTAN 24 MG-26 MG TABLET PO SCH (08:46)
[2022-06-22] MEDS: SODIUM BICARBONATE TAB 650 MG TAB PO SCH (08:46)
[2022-06-22] MEDS: SPIRONOLACTONE 25 MG TAB PO SCH (08:46)
[2022-06-22] MEDS: METOPROLOL TARTRATE 25 MG TAB PO SCH (08:46)
[2022-06-22] MEDS: AMIODARONE 100 MG TAB PO SCH (08:46)
[2022-06-22] MEDS: DAPAGLIFLOZIN PROPANEDIOL 10 MG TABLET PO SCH (08:46)
[2022-06-22] MEDS: COLLAGENASE 250 UNIT/GM OINTMENT 30 GM TUBE TOPICAL SCH (10:10)
[2022-06-22] MEDS: SODIUM CHLORIDE 0.9% 1,000 ML IV SCH (11:00)
[2022-06-22] MEDS: HYDROPHILIC CREAM 180 GM TUBE TOPICAL SCH (11:01)
[2022-06-22 11:51] VITALS: BP 128/75; RESP 16; TEMP 98.4
[2022-06-22 11:54] VITALS: PULSE 74
[2022-06-22 12:18] LABS: Glucose,Whole Blood 167 mg/dL (70-110)
--- NOTE | 2022-06-22 15:47 | P.PN ---
Subjective Progress Note Date: 06/22/22 Follow-up for acute kidney injury. Has Merida catheter, tolerating lunch. Feels better today. Objective - Vital Signs Vital signs: Vital Signs Temp 98.4 F 06/22/22 11:02 Pulse 74 06/22/22 11:54 Resp 16 06/22/22 11:02 BP 128/75 06/22/22 11:02 Pulse Ox 95 06/22/22 11:02 FiO2 Intake & Output 06/21/22 06/22/22 06/22/22 18:59 06:59 18:59 Intake Total 1400 Output Total 3531 1350 Balance -3531 50 Weight 87.09 kg Intake: Intake, IV Titration 900 Amount Sodium Chloride 0.9% 1, 900 000 ml @ 75 mls/hr IV . [id number] [facility] Rx#:[id number] Oral 500 Output: Urine 2825 1350 Uretheral (Mer[place]) 700 Post Void Residual 706 Other: Voiding Method External Catheter Indwelling Catheter Indwelling Catheter - Exam No acute distress S1-S2 Decreased breath sounds Merida No edema - Labs CBC & Chem 7: 06/20/22 05:54 06/21/22 05:58 Labs: Abnormal Lab Results - Last 24 Hours (Table) 06/21/22 06/21/22 06/22/22 Range/Units 17:18 19:39 07:15 POC Glucose (mg/dL) 163 H 148 H 210 H (70-110) mg/dL 06/22/22 Range/Units 12:16 POC Glucose (mg/dL) 167 H (70-110) mg/dL Assessment and Plan Assessment: #1 acute kidney injury secondary to hemodynamic ATN and obstructive uropathy. #2 Chronic kidney disease stage III with a baseline creatinine of 1.5 MG per DL. #3 chronic A. fib #4 insulin-dependent type 2 replace currenty on SGLT2-I #5 left hydronephrosis status post Merida Plan: #1 renal function stable and improving. #2 stable from nephrology for discharge to be followed up in the office.
== END 2022-06-22 17:59 ==
LOC: EC 19:30 → 5NMEDONC 21:14
PROVIDERS: ADMIT Family Medicine; ATTEND Family Medicine
DX: N17.0 Acute kidney failure with tubular necrosis (principal); N13.6 Pyonephrosis; B96.4 Proteus (mirabilis) (morganii) as the cause of diseases classified elsewhere; I12.9 Hypertensive chronic kidney disease with stage 1 through stage 4 chronic kidney disease, or unspecified chronic kidney disease; N18.30 Chronic kidney disease, stage 3 unspecified; E11.22 Type 2 diabetes mellitus with diabetic chronic kidney disease; I95.9 Hypotension, unspecified; I48.20 Chronic atrial fibrillation, unspecified; E87.20 Acidosis, unspecified; I25.10 Atherosclerotic heart disease of native coronary artery without angina pectoris; I25.2 Old myocardial infarction; M19.90 Unspecified osteoarthritis, unspecified site; G89.29 Other chronic pain; M25.569 Pain in unspecified knee; I87.2 Venous insufficiency (chronic) (peripheral); I83.90 Asymptomatic varicose veins of unspecified lower extremity; E11.622 Type 2 diabetes mellitus with other skin ulcer; L98.499 Non-pressure chronic ulcer of skin of other sites with unspecified severity; L03.90 Cellulitis, unspecified; F40.240 Claustrophobia; E66.9 Obesity, unspecified; Z68.36 Body mass index [BMI] 36.0-36.9, adult; Z74.01 Bed confinement status; F41.9 Anxiety disorder, unspecified; Z79.01 Long term (current) use of anticoagulants; Z79.84 Long term (current) use of oral hypoglycemic drugs; Z79.899 Other long term (current) drug therapy; Z79.4 Long term (current) use of insulin; Z88.4 Allergy status to anesthetic agent; Z91.012 Allergy to eggs; Z91.040 Latex allergy status; Z88.5 Allergy status to narcotic agent; Z91.013 Allergy to seafood; Z88.8 Allergy status to other drugs, medicaments and biological substances; Z91.048 Other nonmedicinal substance allergy status; Z86.73 Personal history of transient ischemic attack (TIA), and cerebral infarction without residual deficits; Z86.718 Personal history of other venous thrombosis and embolism; Z86.16 Personal history of COVID-19; Z16.21 Resistance to vancomycin; Z87.81 Personal history of (healed) traumatic fracture; Z86.11 Personal history of tuberculosis; Z90.710 Acquired absence of both cervix and uterus; Z98.51 Tubal ligation status; Z98.42 Cataract extraction status, left eye; Z98.41 Cataract extraction status, right eye; Z98.890 Other specified postprocedural states; Z82.49 Family history of ischemic heart disease and other diseases of the circulatory system; Z80.1 Family history of malignant neoplasm of trachea, bronchus and lung
CPT/HCPCS: 96361 ×4; 96365; 96366; 96372; 99285; 36415; 94640 ×9; 97110 ×4; 97530 ×5; 97162; 97166; 80053 ×4; 83690; 83735; 85025; 85027; 81001; 87086; 87077; 87186; 83036; 76770; G0378 ×6; J0696 ×4; J1170

== ENCOUNTER 2022-09-09 19:35 | Inpatient (IN) | payer MEDICARE ==
[2022-09-09] MEDS ORDERED: NALOXONE 0.4 MG/ML 1 ML VIAL IV PRN (20:16)
--- NOTE | 2022-09-09 20:16 | ED ---
General Adult HPI - General Chief complaint: Recheck/Abnormal Lab/Rx Stated complaint: Abnormal labs Time Seen by Provider: 09/09/22 19:56 Source: patient, EMS, RN notes reviewed Mode of arrival: EMS Limitations: physical limitation - History of Present Illness Initial comments: Patient is a 76-year-old female presenting to the emergency department with concern for infection. Patient is a poor historian. Patient comes a transfer from [facility] with concern for cellulitis of the right arm. Reported negative ultrasound. Patient was given cefepime and vancomycin and IV fluids. Blood cultures were drawn. Patient states she does have some discomfort in this arm. Patient does have history of wound on her left foot however refuses this to be evaluated at this time secondary to her currently being wrapped. Patient is encouraged to have the foot evaluated however she still refuses this. - Related Data Home Medications Medication Instructions Recorded Confirmed Apixaban [Eliquis] 5 mg PO DIRECTED 08/13/20 06/17/22 Ipratropium [place] [Atrovent Hfa] 2 puff INHALATION 08/13/20 06/17/22 RT-QID@,,, Atorvastatin [Lipitor] 20 mg PO HS@2100 01/12/22 06/17/22 Dapagliflozin Propanediol [Farxiga] 10 mg PO DIRECTED 01/12/22 06/17/22 Insulin Glargine,Hum.rec.anlog 30 units SQ DIRECTED 01/12/22 06/17/22 [Toujeo Max Solostar] Sacubitril/Valsartan [Entresto 24 1 tab PO BID@0900,209901/12/22 06/17/22 mg-26 mg Tablet] Amiodarone [Cordarone] 100 mg PO DAILY@0900 03/05/22 06/17/22 Docusate [Colace] 100 mg PO Q12H PRN 03/05/22 06/17/22 Escitalopram [Lexapro] 5 mg PO DAILY@0900 03/05/22 06/17/22 Insulin Glargine,Hum.rec.anlog 20 units SQ HS@2100 03/05/22 06/17/22 [Toujeo Max Solostar] Magnesium Hydroxide [Milk of 2,400 mg PO DAILY PRN 03/05/22 06/17/22 Magnesia] Metoprolol Tartrate [Lopressor] 25 mg PO BID@0900,1700 03/05/22 06/17/22 Omeprazole [PriLOSEC] 20 mg PO DAILY@0900 03/05/22 06/17/22 Tamsulosin [Flomax] 0.4 mg PO DAILY@1700 03/05/22 06/17/22 Acetaminophen Tab [Tylenol] 650 mg PO Q6H PRN 06/17/22 06/17/22 Albuterol Sulfate [Ventolin HFA] 2 puff INHALATION RT-Q4H PRN 06/17/22 06/17/22 Calazime Skin Protectant Paste 1 applic TOPICAL BID 06/17/22 06/17/22 Calcium Carbonate [Tums] 500 mg PO Q4H PRN 06/17/22 06/17/22 Collagenase [Santyl Ointment] 1 applic TOPICAL DAILY 06/17/22 06/17/22 Hydrophilic Cream [Triad (Kerodex 1 applic TOPICAL BID 06/17/22 06/17/22 geq)] Insulin Glargine,Hum.rec.anlog 16 units SQ ONCE PRN 06/17/22 06/17/22 [Toujeo Max Solostar] Multivitamins, Thera [Multivitamin 1 tab PO DAILY@0906/17/22 06/17/22 (formulary)] Prostat Sugar Free (100kcal & 15gm 30 ml PO DAILY@0900 06/17/22 06/17/22 Protein) Spironolactone 25 mg PO DAILY@0900 06/17/22 06/17/22 Previous Rx's Medication Instructions Recorded ALPRAZolam [Xanax] 0.25 mg PO DAILY@0900 #4 tab 06/21/22 Sodium Bicarbonate Tab 650 mg PO BID #60 tab 06/21/22 cefUROXime axetiL [Ceftin] 500 mg PO BID 1 Days #10 tab 06/21/22 traMADol HCl [Ultram] 50 mg PO Q6HR PRN #4 tab 06/21/22 Allergies Allergy/AdvReac Type Severity Reaction Status Date / Time shellfish derived [Shellfish] Allergy Severe vomiting Verified 09/09/22 19:56 -very ill adhesive Allergy skin red Verified 09/09/22 19:56 and murguia, tears skin aluminum Allergy skin turns Verified 09/09/22 19:56 black, passes out Antihistamines - Allergy heart Verified 09/09/22 19:56 Ethylenediamine palpitations codeine Allergy migraines Verified 09/09/22 19:56 epinephrine Allergy heart Verified 09/09/22 19:56 palpitations hydrogen peroxide Allergy murguia and Verified 09/09/22 19:56 causes infection latex Allergy passes out Verified 09/09/22 19:56 lidocaine Allergy gtts in Verified 09/09/22 19:56 eyes and passed out nickel Allergy turns skin Verified 09/09/22 19:56 black and passes out procaine HCl [From Novocain] Allergy passed Verified 09/09/22 19:56 out- due to epinephrine in it. thiopental sodium Allergy needed cpr Verified 09/09/22 19:56 [From Pentothal] resusitation egg yolk AdvReac Diarrhea Verified 09/09/22 19:56 surgical felicita Allergy Severe had to be Uncoded 09/09/22 19:56 removed 2 days post-op petroleum products AdvReac passes out Uncoded 09/09/22 19:56 or does not feel well. (diesel, oils) Review of Systems ROS Statement: Those systems with pertinent positive or pertinent negative responses have been documented in the HPI. ROS Other: All systems not noted in ROS Statement are negative. Constitutional: Denies: fever Eyes: Denies: eye pain ENT: Denies: ear pain Respiratory: Denies: cough Cardiovascular: Denies: chest pain Endocrine: Denies: fatigue Gastrointestinal: Denies: abdominal pain Genitourinary: Denies: dysuria Musculoskeletal: Reports: as per HPI Skin: Reports: rash (Patient states she did get a rash from antibiotics that she was on however does not know what these are) Past Medical History Past Medical History: Atrial Fibrillation, Coronary Artery Disease (CAD), CVA/TIA, Diabetes Mellitus, Deep Vein Thrombosis (DVT), Hypertension, Myocardial Infarction ([place]), Osteoarthritis (OA) Additional Past Medical History / Comment(s): hx tia, hx stroke behind left eye., lt eye macular , states hospitalized with Covid April 2019 with life support and stage 3 kidney failure., hx of fall with hip fx and surgery 01/13/22 and residing at [facility] for Rehab- no wt bearing, DVT during ., varicose veins, states painful sore left heel., hx of [place] as a child with scarring on lungs. Last Myocardial Infarction Date:: unknown date History of Any Multi-Drug Resistant Organisms: VRE Date of last positivie culture/infection: 09/08/20 MDRO Source:: Groin Past Surgical History: Adenoidectomy, Hysterectomy, Orthopedic Surgery, Tonsillectomy, Tubal Ligation Additional Past Surgical History / Comment(s): pilonidal cyst twice as child, rt knee arthroscopy, krystyna cataracts, krystyna great toe sx, ORIF Left hip (01/13/22) Past Anesthesia/Blood Transfusion Reactions: Previous Problems w/ Anesthesia, Postoperative Nausea & Vomiting (PONV) Additional Past Anesthesia/Blood Transfusion Reaction / Comment(s): difficulty waking up after sx. clausterphobia. 1960 blood transfusion(during child ) pt stated had palpitations after 2nd unit given Past Psychological History: Anxiety Smoking Status: Never smoker Past Alcohol Use History: None Reported Past Drug Use History: None Reported - Past Family History Mother Family Medical History: Cancer Additional Family Medical History / Comment(s): lung cancer Father Family Medical History: Coronary Artery Disease (CAD) Additional Family Medical History / Comment(s): heart disease, kidney disese General Exam Limitations: no limitations General appearance: alert, in no apparent distress Head exam: Present: normocephalic Eye exam: Present: normal appearance Neck exam: Present: normal inspection Respiratory exam: Present: normal lung sounds bilaterally Cardiovascular Exam: Present: regular rate, normal rhythm GI/Abdominal exam: Present: soft. Absent: tenderness Extremities exam: Present: tenderness (Right upper arm with some erythema and tenderness.) Neurological exam: Present: alert Psychiatric exam: Present: normal affect, normal mood Skin exam: Present: rash (Patient has diffuse rash, mostly of the trunk which is erythematous and dry) Course Vital Signs 09/09/22 19:43 Pulse Rate 66 Respiratory 20 Rate Blood Pressure 86/48 O2 Sat by Pulse 98 Oximetry Medical Decision Making - Medical Decision Making Was pt. sent in by a medical professional or institution (, PA, DIP LUBE OPERATOR, urgent care, hospital, or longterm...) When possible be specific @ -Patient was sent from [facility] Did you speak to anyone other than the patient for history (EMS, parent, family, police, friend...)? What history was obtained from this source @ -Case was discussed with physician at [facility] who did help provide history as patient is a poor historian Did you review nursing and triage notes (agree or disagree)? Why? @ -I reviewed and agree with nursing and triage notes Were old charts reviewed (outside hosp., previous admission, EMS record, old EKG, old radiological studies, urgent care reports/EKG's, longterm records)? Report findings @ -Chart from [facility] has been reviewed. Differential Diagnosis (chest pain, altered mental status, abdominal pain women, abdominal pain men, vaginal bleeding, weakness, fever, dyspnea, syncope, headache, dizziness, GI bleed, back pain, seizure, CVA, palpatations, mental health)? @ -Differential Fever: Pneumonia, viral URI, endocarditis, myocarditis, pericarditis, otitis, sinusitis, peritonsillar Abscess, retropharyngeal Abscess, epiglottitis, peritonitis, appendicitis, Inna cystitis, diverticulitis, hepatitis, colitis, UTI, PID, TOA, pyelonephritis, prostatitis, epididymitis, meningitis, encephalitis, pulmonary embolism, CVA, thyroid storm, pancreatitis, adrenal crisis, cavernous sinus thrombosis, this is not meant to be an all-inclusive l ist. EKG interpreted by me (3pts min.). @ -As above X-rays interpreted by me (1pt min.). @ -None done CT interpreted by me (1pt min.). @ -None done U/S interpreted by me (1pt. min.). @ -None done What testing was considered but not performed or refused? (CT, X-rays, U/S, labs)? Why? @ -None What meds were considered but not given or refused? Why? @ -None Did you discuss the management of the patient with other professionals (professionals i.e. , PA, DIP LUBE OPERATOR, lab, RT, psych nurse, long term care social worker, punch card operator, teacher, financial officer, major case detective)? Give summary @ -Maninder was discussed with Dr. Shirley who is familiar with this patient. He will admit his patient with consults with infectious disease and critical care. Dr. Hernandez has been paged as well. Was smoking cessation discussed for >3mins.? @ -No Was critical care preformed (if so, how long)? @ -31 minutes critical care time Were there social determinants of health that impacted care today? How? (Homelessness, low income, unemployed, alcoholism, drug addiction, transportation, low edu. Level, literacy, decrease access to med. care, senior care, rehab)? @ -No Was there de-escalation of care discussed even if they declined (Discuss DNR or withdrawal of care, Hospice)? DNR status @ -No What co-morbidities impacted this encounter? (DM, HTN, Smoking, COPD, CAD, Cancer, CVA, ARF, Chemo, Hep., AIDS, mental health diagnosis, sleep apnea, morbid obesity)? @ -None Was patient admitted / discharged? Hospital course, mention meds given and route, prescriptions, significant lab abnormalities, going to OR and other pertinent info. @ -Patient is updated on results and plan. Chart reviewed. Patient will be continued with IV antibiotic's. Patient will be placed on pressors secondary to hypotension. Undiagnosed new problem with uncertain prognosis? @ -No Drug Therapy requiring intensive monitoring for toxicity (Heparin, Nitro, Insulin, Cardizem)? @ -Patient will be placed on pressors and need monitoring for this. Were any procedures done? @ -No Diagnosis/symptom? @ -Cellulitis, hypertension Acute, or Chronic, or Acute on Chronic? @ -Acute, acute Uncomplicated (without systemic symptoms) or Complicated (systemic symptoms)? @ -Cellulitis is complicated with hypotension Side effects of treatment? @ -No Exacerbation, Progression, or Severe Exacerbation? @ -No Poses a threat to life or bodily function? How? (Chest pain, [place], [place], pneumonia, PE, COPD, DKA, ARF, appy, cholecystitis, CVA, Diverticulitis, Homicidal, Suicidal, threat to staff... and all critical care pts) @ -Patient has potential threat to life with osteomyelitis and cellulitis and hypotension Disposition Clinical Impression: Cellulitis, Hypotension, Osteomyelitis Disposition: ADMITTED IP TO THIS HOSP Is patient prescribed a controlled substance at d/c from ED?: No Referrals: Luis Shirley MD [Primary Care Provider] - 1-2 days Time of Disposition: 20:15
[2022-09-09] MEDS ORDERED: VANCOMYCIN IV PER PHARMACY 1 EACH MISC MISCELLANE PRN (20:18)
[2022-09-09] MEDS ORDERED: NOREPINEPHRINE 32 MG in SODIUM CHLORIDE 0.9% 218 ML IV SCH (20:30)
[2022-09-09] MEDS ORDERED: NOREPINEPHRINE 4 MG in SODIUM CHLORIDE 0.9% 250 ML IV SCH (21:15)
[2022-09-09 21:23] LABS: Anisocytosis Slight; Basophils % (A) 0 %; Eosinophils # (A) 0.1 k/uL (0-0.7); Eosinophils % (A) 2 %; HCT 25.9 % (34.0-46.0); HGB 8.4 gm/dL (11.4-16.0); Lymphocytes # (A) 0.6 k/uL (1.0-4.8); Lymphocytes % (A) 8 %; MCH 28.1 pg (25.0-35.0); MCHC 32.6 g/dL (31.0-37.0); MCV 86.1 fL (80.0-100.0); Mean Platelet Volume 8.1; Monocytes # (A) 0.2 k/uL (0-1.0); Monocytes % (A) 3 %; Neutrophils # (A) 5.8 k/uL (1.3-7.7); Neutrophils % (A) 86 %; Platelet Count 315 k/uL (150-450); RDW 18.2 % (11.5-15.5); WBC 6.8 k/uL (3.8-10.6)
[2022-09-09 21:33] LABS: ALT 14 U/L (4-34); AST 22 U/L (14-36); African American GFR (CKD) 34 (>60 ml/min/1.73 sqM); Alkaline Phosphatase 76 U/L (38-126); Anion Gap 7 mmol/L; Blood Urea Nitrogen 70 mg/dL (7-17); Carbon Dioxide 23 mmol/L (22-30); Chloride 101 mmol/L (98-107); Glucose 140 mg/dL (74-99); Non-African American GFR(CKD) 29 (>60 ml/min/1.73 sqM); Potassium 3.9 mmol/L (3.5-5.1); Sodium 131 mmol/L (137-145); Total Bilirubin 0.9 mg/dL (0.2-1.3); Total Protein 4.3 g/dL (6.3-8.2)
[2022-09-09 22:45] LABS: Glucose,Whole Blood 202 mg/dL (70-110)
[2022-09-09] MEDS: SODIUM CHLORIDE 0.9% 1,000 ML IV SCH (23:25)
[2022-09-09] MEDS ORDERED: DEXTROSE 50% SYRINGE 50 ML IVP PRN ×2 (23:26)
[2022-09-10 01:14] LABS: African American GFR (CKD) 35 (>60 ml/min/1.73 sqM); Anion Gap 13 mmol/L; Blood Urea Nitrogen 73 mg/dL (7-17); Calcium 7.3 mg/dL (8.4-10.2); Carbon Dioxide 18 mmol/L (22-30); Chloride 103 mmol/L (98-107); Glucose 194 mg/dL (74-99); Magnesium 1.1 mg/dL (1.6-2.3); Non-African American GFR(CKD) 30 (>60 ml/min/1.73 sqM); Sodium 134 mmol/L (137-145)
[2022-09-10] MEDS: ACETAMINOPHEN TAB 325 MG TAB PO PRN (01:39)
[2022-09-10] MEDS ORDERED: Magnesium Replacement Protocol 1 EACH MISC MISCELLANE PRN (01:42)
[2022-09-10] MEDS: MAGNESIUM SULFATE-D5W PMX 1 GM in DEXTROSE/WATER 1 100ML.BAG IVPB SCH ×4 (01:49→05:00)
--- NOTE | 2022-09-10 02:10 | P.CNPUL ---
History of Present Illness Consult date: 09/10/22 Requesting physician: Roscoe Menendez Reason for consult: other (ICU management) Chief complaint: Right arm swelling and low blood pressure History of present illness: I am seeing this patient in new consultation today 09/10/2022 in the intensive care unit for suspected sepsis. Patient is a 76-year-old female with past medical history significant for diabetes mellitus type 2, chronic foot wounds, chronic kidney disease, hypertension, hyperlipidemia, coronary artery disease, prior NH, atrial fibrillation, ventricular dysrhythmias, cardiomyopathy, CVA/TIA, prior DVT, prior ventilator dependence, left hip fracture status post ORIF. Patient reportedly resides at [facility] after her recent left hip fracture and surgery. Patient has several superficial pressure injuries on her back. She also has a left heel wound that is being treated at the wound care clinic. Patient was reportedly being treated for an infection of her left foot with an 18 week course of antibiotics through a right upper extremity PICC line. The left heel wound looks to be healing well, with mostly red granulation tissue. Patient presented to [facility] yesterday with complaints of a generalized rash and low blood pressure from her F. At the outside facility, the patient did have an initial workup including an x-ray of her left foot which showed findings concerning for osteomyelitis involving the lateral cuneiform. There was associated soft tissue swelling. There is also a questionable non- displaced fracture at the base of the fifth metatarsal with uncertain chronicity, and there was a prosthetic disc in the first MTP joint in anatomic alignment. The patient was started on a combination of cefepime and vancomycin. Cultures were reportedly drawn at outside facility. There was also concern for right upper extremity cellulitis and swelling at outside facility. A right upper extremity duplex ultrasound showed no evidence of DVT. The patient was transferred to [facility] last night. On my evaluation, there is no obvious cellulitis of the right upper extremity. Chest x-ray at outside facility showed no acute cardiopulmonary process. Patient is currently resting in bed, on room air, in no acute distress. Norepinephrine is currently infusing at a low dose of 0.03 mcg/kg/m. No IV maintenance fluids are currently infusing. CBC on arrival to our facility shows a WBC count of 6.8, hemoglobin 8.4, hematocrit 25.9, platelets 315. Most recent BMP shows a sodium 131, potassium 3.9, chloride 101, serum CO2 23, BUN 70, creatinine 1.67, glucose 140. Patient continues to be covered on vancomycin and cefepime. She is afebrile. Patient will be monitored in the intensive care unit. Review of Systems REVIEW OF SYSTEMS: CONSTITUTIONAL: Denies any recent significant weight loss or weight gain. EYES: Denies change in vision. EARS, NOSE, MOUTH, THROAT: Denies headaches, denies sore throat. CARDIOVASCULAR: Denies chest pain, palpitations or syncopal episodes. RESPIRATORY: Denies shortness of breath, cough, congestion or hemoptysis. GASTROINTESTINAL: Denies change in appetite, abdominal pain, nausea and vomi ting, or diarrhea GENITOURINARY: Denies hematuria, denies infections. MUSKULOSKELETAL: Denies pain, denies swelling. INTEGUMENTARY: Does admit generalized rash. She does have a left heel wound. NEUROLOGICAL: Denies recent memory loss, no recent seizure activity. PSYCHIATRIC: Denies anxiety, denies depression. HEMATOLOGIC/LYMPHATIC: Denies anemia, denies enlarged lymph node Past Medical History Past Medical History: Atrial Fibrillation, Coronary Artery Disease (CAD), CVA/TIA, Diabetes Mellitus, Deep Vein Thrombosis (DVT), Hypertension, Myocardial Infarction (NH), Osteoarthritis (OA) Additional Past Medical History / Comment(s): hx tia, hx stroke behind left eye., lt eye macular , states hospitalized with Covid April 2019 with life support and stage 3 kidney failure., hx of fall with hip fx and surgery 01/13/22 and residing at [facility] for Re[facility]- no wt bearing, DVT during ., varicose veins, states painful sore left heel., hx of t.b. as a child with scarring on lungs. Last Myocardial Infarction Date:: unknown date History of Any Multi-Drug Resistant Organisms: VRE Date of last positivie culture/infection: 09/08/20 MDRO Source:: Groin Past Surgical History: Adenoidectomy, Hysterectomy, Orthopedic Surgery, Tonsillectomy, Tubal Ligation Additional Past Surgical History / Comment(s): pilonidal cyst twice as child, rt knee arthroscopy, krystyna cataracts, krystyna great toe sx, ORIF Left hip (01/13/22) Past Anesthesia/Blood Transfusion Reactions: Previous Problems w/ Anesthesia, Postoperative Nausea & Vomiting (PONV) Additional Past Anesthesia/Blood Transfusion Reaction / Comment(s): difficulty waking up after sx. clausterphobia. 1961 blood transfusion(during child ) pt stated had palpitations after 2nd unit given Past Psychological History: Anxiety Smoking Status: Never smoker Past Alcohol Use History: None Reported Past Drug Use History: None Reported - Past Family History Mother Family Medical History: Cancer Additional Family Medical History / Comment(s): lung cancer Father Family Medical History: Coronary Artery Disease (CAD) Additional Family Medical History / Comment(s): heart disease, kidney disese Medications and Allergies Home Medications Medication Instructions Recorded Confirmed Type Apixaban [Eliquis] 5 mg PO BID 08/13/20 09/09/22 History Atorvastatin [Lipitor] 20 mg PO HS@2100 01/12/22 09/09/22 History Dapagliflozin Propanediol [Farxiga] 10 mg PO DAILY 01/12/22 09/09/22 History Sacubitril/Valsartan [Entresto 24 1 tab PO BID@0900,1700 01/12/22 09/09/22 History mg-26 mg Tablet] Amiodarone [Cordarone] 100 mg PO DAILY@0900 03/05/22 09/09/22 History Escitalopram [Lexapro] 10 mg PO DAILY 03/05/22 09/09/22 History Magnesium Hydroxide [Milk of 2,400 mg PO Q8H PRN 03/05/22 09/09/22 History Magnesia] Metoprolol Tartrate [Lopressor] 25 mg PO BID@0900,1700 03/05/22 09/09/22 History Omeprazole [PriLOSEC] 20 mg PO DAILY@0600 03/05/22 09/09/22 History Tamsulosin [Flomax] 0.4 mg PO DAILY@1700 03/05/22 09/09/22 History Albuterol Sulfate [Ventolin HFA] 2 puff INHALATION RT-Q4H PRN 06/17/22 09/09/22 History Calcium Carbonate [Tums] 1,000 mg PO Q4H PRN 06/17/22 09/09/22 History Multivitamins, Thera [Multivitamin 1 tab PO DIRECTED 06/17/22 09/09/22 History (formulary)] Spironolactone 25 mg PO DAILY 06/17/22 09/09/22 History 0.9 % Sodium Chloride [Sodium 10 ml IV BID 09/09/22 09/09/22 History Chloride Flush] ALPRAZolam [Xanax] 0.5 mg PO Q8H PRN 09/09/22 09/09/22 History Acetaminophen [Tylenol 8 Hour] 650 mg PO Q6H PRN 09/09/22 09/09/22 History Ammonium Lactate Cream [Lac-Hydrin 1 applic TOPICAL BID 09/09/22 09/09/22 History 12% Cream] Bumetanide [BUMEX] 2 mg PO DAILY@1500 09/09/22 09/09/22 History Fluconazole [Diflucan] 100 mg PO DAILY 09/09/22 09/09/22 History Insulin Glargine-Yfgn [Semglee 5 units SQ DAILY 09/09/22 09/09/22 History (Yfgn) Pen] Insulin Glargine-Yfgn [Semglee 10 units SQ HS 09/09/22 09/09/22 History (Yfgn) Pen] Ipratropium [place] [Atrovent Hfa] 2 puff INHALATION RT-QID 09/09/22 09/09/22 History L.acidoph,Paracasei, B.lactis 1 cap PO DAILY 09/09/22 09/09/22 History [Probiotic] bisacodyL [Correctol] 10 mg PO DAILY PRN 09/09/22 09/09/22 History oxyCODONE HCL [OxyIR] 5 mg PO Q4H 09/09/22 09/09/22 History Allergies Allergy/AdvReac Type Severity Reaction Status Date / Time shellfish derived [Shellfish] Allergy Severe vomiting Verified 09/09/22 20:53 -very ill adhesive Allergy skin red Verified 09/09/22 20:53 and murguia, tears skin aluminum Allergy skin turns Verified 09/09/22 20:53 black, passes out Antihistamines - Allergy heart Verified 09/09/22 20:53 Ethylenediamine palpitations codeine Allergy migraines Verified 09/09/22 20:53 epinephrine Allergy heart Verified 09/09/22 20:53 palpitations hydrogen peroxide Allergy murguia and Verified 09/09/22 20:53 causes infection latex Allergy passes out Verified 09/09/22 20:53 lidocaine Allergy gtts in Verified 09/09/22 20:53 eyes and passed out nickel Allergy turns skin Verified 09/09/22 20:53 black and passes out procaine HCl [From Novocain] Allergy passed Verified 09/09/22 20:53 out- due to epinephrine in it. thiopental sodium Allergy needed cpr Verified 09/09/22 20:53 [From Pentothal] resusitation egg yolk AdvReac Diarrhea Verified 09/09/22 20:53 surgical felicita Allergy Severe had to be Uncoded 09/09/22 19:56 removed 2 days post-op petroleum products AdvReac passes out Uncoded 09/09/22 19:56 or does not feel well. (diesel, oils) Physical Exam Vitals: Vital Signs Temp Pulse Resp BP Pulse Ox 09/10/22 00:15 60 15 91/37 97 09/10/22 00:00 63 23 99/75 94 L 09/09/22 23:45 65 16 121/47 97 09/09/22 23:30 60 12 122/46 97 09/09/22 23:20 65 15 122/46 96 09/09/22 23:10 63 16 113/50 98 09/09/22 23:00 68 19 110/47 95 09/09/22 22:50 97.7 F 71 16 110/47 94 L 09/09/22 22:15 55 L 18 106/45 97 09/09/22 21:37 61 20 97/45 97 09/09/22 19:43 66 20 86/48 98 Intake and Output 09/09/22 09/09/22 09/10/22 14:59 22:59 06:59 Intake Total 18.758 Output Total 0 Balance 18.758 Intake: Intake, IV Titration 18.758 Amount Norepinephrine 4 mg In 18.758 Sodium Chloride 0.9% 250 ml @ 0.03 MCG/KG/MIN 10. 421 mls/hr IV .Q24H [facility] Rx#:[id number] Output: Urine 0 Other: Weight 91.172 kg GENERAL EXAM: Alert, 76-year-old white morbidly obese female, comfortable in no apparent distress. HEAD: Normocephalic and atraumatic EYES: Normal reaction of pupils, equal size. NOSE: Clear with pink turbinates. THROAT: No erythema or exudates. NECK: No masses, no JVD. CHEST: No chest wall deformity. LUNGS: Equal air entry with no crackles, wheeze, rhonchi or dullness. On room air. No conversational dyspnea or accessory muscle use.. CVS: S1 and S2 normal with no audible murmur, regular rhythm. No extra heart calli nds ABDOMEN: No hepatosplenomegaly, active bowel sounds, no guarding or rigidity. SPINE: No scoliosis or deformity SKIN: Generalized rash of the upper extremities and torso. Multiple superficial pressure injuries and abrasions to her back. There is a left heel wound with red granulation tissue. CENTRAL NERVOUS SYSTEM: No focal deficits, tone is normal in all 4 extremities. EXTREMITIES: There is 2+ pitting lower extremity edema. Left foot drop. There is a right upper extremity PICC line. No clubbing, or cyanosis. Peripheral pulses are intact. Results - Laboratory Findings CBC and BMP: 09/10/22 05:15 09/10/22 05:15 Abnormal lab findings: Abnormal Labs 09/09/22 09/09/22 09/09/22 19:48 19:48 22:43 RBC 3.00 L Hgb 8.4 L Hct 25.9 L RDW 18.2 H Lymphocytes # 0.6 L Sodium 131 L BUN 70 H Creatinine 1.67 H Glucose 140 H POC Glucose (mg/dL) 202 H Calcium 7.0 L Total Protein 4.3 L Albumin 2.0 L - Diagnostic Findings Chest x-ray: report reviewed Assessment and Plan Assessment: Suspected hypotension and sepsis, currently requiring norepinephrine infusion. Chronic left heel lower extremity wound, without signs of infection. There were concerns of osteomyelitis of the lateral cuneiform on left foot x-ray performed at outside facility. Patient normally follows with the wound care clinic. Diabetes mellitus type 2, insulin-dependent Anemia of chronic disease Chronic kidney disease stage III Essential hypertension Hyperlipidemia Coronary artery disease, with prior NH History of cardiomyopathy, most recent echocardiogram from December, shows an improvement in left ventricular ejection fraction to 50-55%. History of paroxysmal atrial fibrillation, anticoagulated on Eliquis, currently in normal sinus rhythm History of remote CVA History of DVT History of prior ventilator dependent respiratory failure History of left hip fracture status post ORIF Plan: Patient's medications, labs, and imaging reports at outside facility were reviewed No signs of cellulitis on my examination Blood cultures are pending Continue empiric antibiotics Consult infectious disease Consult wound care Continue norepinephrine for hypotension Start the patient on normal saline at 130 ML's per hour Repeat lactic acid Anticoagulated on Eliquis Protonix for GI prophylaxis Patient will be monitored in the intensive care unit I have personally seen and examined the patient, performed the documentation and the assessment and plan as written. Number of minutes spent on the visit:20 This is a joint evaluation that was done along with a nurse practitioner. The patient was hospitalized because of a diffused erythematous rash that developed following an antibiotic change that was done for treatment of osteomyelitis. The patient is a PICC line and she was receiving IV antibiotics. She presented to us because of hypotension and she was rash. This is most likely an antibiotic-induced rash. The patient was taking a combination of cefepime and vancomycin at the [facility]. I suggest stopping all antibiotics for now giving the patient IV Solu-Medrol and some hydrocortisone cream to the skin. She has developed some skin scaling over the neck and upper chest area without evidence of any blisters or vesicles. We'll consult infectious disease or antibiotic modification. Rule out possibility of vancomycin-induced rash versus a ce phalosporin induced rash. Patient is currently on minimal doses of norepinephrine that can be easily weaned off. Norepinephrine is running at 0.03 mcg/kg/m. Patient will be kept on IV fluids. Obtain repeat cultures. Obtain sed rate. Obtain pro-calcitonin level. He denies use longer she is pressors and she may leave the ICU while she is off the pressors for at least 4-6 hours. We'll continue to follow. Home medications have been resumed. Time with Patient: Greater than 30
[2022-09-10] MEDS ORDERED: CEFEPIME 1 GM in SODIUM CHLORIDE 0.9% 50 ML IVPB SCH (06:00)
[2022-09-10 06:10] LABS: ALT 15 U/L (4-34); AST 23 U/L (14-36); African American GFR (CKD) 35 (>60 ml/min/1.73 sqM); Albumin 1.9 g/dL (3.5-5.0); Alkaline Phosphatase 80 U/L (38-126); Anion Gap 12 mmol/L; Blood Urea Nitrogen 70 mg/dL (7-17); Calcium 7.3 mg/dL (8.4-10.2); Carbon Dioxide 18 mmol/L (22-30); Chloride 102 mmol/L (98-107); Glucose 252 mg/dL (74-99); Non-African American GFR(CKD) 31 (>60 ml/min/1.73 sqM); Phosphorus 3.6 mg/dL (2.5-4.5); Potassium 3.7 mmol/L (3.5-5.1); Sodium 132 mmol/L (137-145); Total Bilirubin 0.8 mg/dL (0.2-1.3); Total Protein 4.3 g/dL (6.3-8.2)
[2022-09-10 06:12] LABS: Anisocytosis Slight; Basophils % (A) 0 %; Eosinophils % (A) 0 %; HCT 25.8 % (34.0-46.0); HGB 8.1 gm/dL (11.4-16.0); Hypochromasia Moderate; Lymphocytes # (A) 0.6 k/uL (1.0-4.8); Lymphocytes % (A) 8 %; MCH 28.3 pg (25.0-35.0); MCHC 31.6 g/dL (31.0-37.0); MCV 89.6 fL (80.0-100.0); Mean Platelet Volume 7.9; Monocytes # (A) 0.3 k/uL (0-1.0); Monocytes % (A) 4 %; Neutrophils # (A) 6.2 k/uL (1.3-7.7); Neutrophils % (A) 87 %; Platelet Count 307 k/uL (150-450); RBC 2.88 m/uL (3.80-5.40); RDW 18.1 % (11.5-15.5); WBC 7.1 k/uL (3.8-10.6)
[2022-09-10 06:37] LABS: Glucose,Whole Blood 295 mg/dL (70-110)
[2022-09-10] MEDS: SODIUM CHLORIDE 0.9% 1,000 ML IV SCH ×3 (06:41→22:08)
[2022-09-10] MEDS: INSULIN ASPART (NovoLOG) 100 UNIT/ML VIAL SQ SCH ×4 (06:51→20:00)
[2022-09-10] MEDS ORDERED: INSULIN DETEMIR (LEVEMIR) 100 UNIT/ML SYR SQ SCH (07:00)
--- NOTE | 2022-09-10 08:15 | XR ---
EXAMINATION TYPE: XR chest 1V DATE OF EXAM: 09/10/2022 COMPARISON: 01/12/2022 HISTORY: Fever TECHNIQUE: Single frontal view of the chest is obtained. FINDINGS: Right-sided PICC line seen with the tip overlying the right atrium. Heart is markedly enla rged. Limited inspiration. Hypertrophic degenerative change of the spine. Calcification along the rig ht apex likely related to vasculature. There is a coarsened interstitium. Left perihilar infiltrate. IMPRESSION: 1. Cardiomegaly with left perihilar infiltrate. Coarsened interstitium suggests chronic interstitial lung disease. Mild superimposed pneumonitis not excluded.
[2022-09-10] MEDS ORDERED: HYDROCORTISONE 1% CREAM 30 GM TUBE TOPICAL PRN (08:42)
[2022-09-10] MEDS ORDERED: Potassium Replacement Protocol 1 EACH MISC MISCELLANE PRN (08:44)
[2022-09-10] MEDS ORDERED: POTASSIUM CHLORIDE ER 20 MEQ TAB.ER PO SCH (09:00)
[2022-09-10] MEDS ORDERED: METOPROLOL TARTRATE 25 MG TAB PO SCH (09:00)
--- NOTE | 2022-09-10 09:05 | P.HPIM ---
History of Present Illness H&P Date: 09/10/22 Chief Complaint: Concern for Infection This is a 76-year-old female who presented to the emergency department as a transfer from [facility] with concern for cellulitis of her right arm. Patient does have a history of chronic wounds of lower extremities. She reside s at [facility]. She has a history of multiple ALLERGIES. Was recently on IV antibiotics serial right upper extremity PICC line for infection in her left foot and developed a rash who presented to the [place] ER. Patient is unable to recall what antibiotic she was on. She is on vancomycin and cefepime currently. She has been hypotensive since admission. Further history as noted below. Review of Systems Constitutional: Denies chills, Denies fever Cardiovascular: Denies chest pain, Denies dyspnea on exertion Respiratory: Denies cough, Denies dyspnea Gastrointestinal: Denies abdominal pain, Denies nausea Musculoskeletal: Denies arm numbness/tingling, Denies leg numbness/tingling Integumentary: Reports rash Neurological: Denies headaches, Denies weakness Past Medical History Past Medical History: Atrial Fibrillation, Coronary Artery Disease (CAD), CVA/TIA, Diabetes Mellitus, Deep Vein Thrombosis (DVT), Hypertension, Myocardial Infarction ([place]), Osteoarthritis (OA) Additional Past Medical History / Comment(s): hx tia, hx stroke behind left eye., lt eye macular , states hospitalized with Covid April 2019 with life hanna pport and stage 3 kidney failure., hx of fall with hip fx and surgery 01/13/22 and residing at [facility] for [facility]- no wt bearing, DVT during ., varicose veins, states painful sore left heel., hx of t.b. as a child with scarring on lungs. Last Myocardial Infarction Date:: unknown date History of Any Multi-Drug Resistant Organisms: VRE Date of last positivie culture/infection: 09/08/20 MDRO Source:: Groin Past Surgical History: Adenoidectomy, Hysterectomy, Orthopedic Surgery, Tonsillectomy, Tubal Ligation Additional Past Surgical History / Comment(s): pilonidal cyst twice as child, rt knee arthroscopy, krystyna cataracts, krystyna great toe sx, ORIF Left hip (01/13/22) Past Anesthesia/Blood Transfusion Reactions: Previous Problems w/ Anesthesia, Postoperative Nausea & Vomiting (PONV) Additional Past Anesthesia/Blood Transfusion Reaction / Comment(s): difficulty waking up after sx. clausterphobia. 1961 blood transfusion(during child ) pt stated had palpitations after 2nd unit given Past Psychological History: Anxiety Smoking Status: Never smoker Past Alcohol Use History: None Reported Past Drug Use History: None Reported - Past Family History Mother Family Medical History: Cancer Additional Family Medical History / Comment(s): lung cancer Father Family Medical History: Coronary Artery Disease (CAD) Additional Family Medical History / Comment(s): heart disease, kidney disese Medications and Allergies Home Medications Medication Instructions Recorded Confirmed Type Apixaban [Eliquis] 5 mg PO BID 08/13/20 09/09/22 History Atorvastatin [Lipitor] 20 mg PO HS@2100 01/12/22 09/09/22 History Dapagliflozin Propanediol [Farxiga] 10 mg PO DAILY 01/12/22 09/09/22 History Sacubitril/Valsartan [Entresto 24 1 tab PO BID@0900,1700 01/12/22 09/09/22 History mg-26 mg Tablet] Amiodarone [Cordarone] 100 mg PO DAILY@0900 03/05/22 09/09/22 History Escitalopram [Lexapro] 10 mg PO DAILY 03/05/22 09/09/22 History Magnesium Hydroxide [Milk of 2,400 mg PO Q8H PRN 03/05/22 09/09/22 History Magnesia] Metoprolol Tartrate [Lopressor] 25 mg PO BID@0900,1700 03/05/22 09/09/22 History Omeprazole [PriLOSEC] 20 mg PO DAILY@0600 03/05/22 09/09/22 History Tamsulosin [Flomax] 0.4 mg PO DAILY@1700 03/05/22 09/09/22 History Albuterol Sulfate [Ventolin HFA] 2 puff INHALATION RT-Q4H PRN 06/17/22 09/09/22 History Calcium Carbonate [Tums] 1,000 mg PO Q4H PRN 06/17/22 09/09/22 History Multivitamins, Thera [Multivitamin 1 tab PO DIRECTED 06/17/22 09/09/22 H istory (formulary)] Spironolactone 25 mg PO DAILY 06/17/22 09/09/22 History 0.9 % Sodium Chloride [Sodium 10 ml IV BID 09/09/22 09/09/22 History Chloride Flush] ALPRAZolam [Xanax] 0.5 mg PO Q8H PRN 09/09/22 09/09/22 History Acetaminophen [Tylenol 8 Hour] 650 mg PO Q6H PRN 09/09/22 09/09/22 History Ammonium Lactate Cream [Lac-Hydrin 1 applic TOPICAL BID 09/09/22 09/09/22 History 12% Cream] Bumetanide [BUMEX] 2 mg PO DAILY@1500 09/09/22 09/09/22 History Fluconazole [Diflucan] 100 mg PO DAILY 09/09/22 09/09/22 History Insulin Glargine-Yfgn [Semglee 5 units SQ DAILY 09/09/22 09/09/22 History (Yfgn) Pen] Insulin Glargine-Yfgn [Semglee 10 units SQ HS 09/09/22 09/09/22 History (Yfgn) Pen] Ipratropium [place] [Atrovent Hfa] 2 puff INHALATION RT-QID 09/09/22 09/09/22 History L.acidoph,Paracasei, B.lactis 1 cap PO DAILY 09/09/22 09/09/22 History [Probiotic] bisacodyL [Correctol] 10 mg PO DAILY PRN 09/09/22 09/09/22 History oxyCODONE HCL [OxyIR] 5 mg PO Q4H 09/09/22 09/09/22 History Allergies Allergy/AdvReac Type Severity Reaction Status Date / Time shellfish derived [Shellfish] Allergy Severe vomiting Verified 09/09/22 20:53 -very ill adhesive Allergy skin red Verified 09/09/22 20:53 and murguia, tears skin aluminum Allergy skin turns Verified 09/09/22 20:53 black, passes out Antihistamines - Allergy heart Verified 09/09/22 20:53 Ethylenediamine palpitations codeine Allergy migraines Verified 09/09/22 20:53 epinephrine Allergy heart Verified 09/09/22 20:53 palpitations hydrogen peroxide Allergy murguia and Verified 09/09/22 20:53 causes infection latex Allergy passes out Verified 09/09/22 20:53 lidocaine Allergy gtts in Verified 09/09/22 20:53 eyes and passed out nickel Allergy turns skin Verified 09/09/22 20:53 black and passes out procaine HCl [From Novocain] Allergy passed Verified 09/09/22 20:53 out- due to epinephrine in it. thiopental sodium Allergy needed cpr Verified 09/09/22 20:53 [From Pentothal] resusitation egg yolk AdvReac Diarrhea Verified 09/09/22 20:53 surgical felicita Allergy Severe had to be Uncoded 09/09/22 19:56 removed 2 days post-op petroleum products AdvReac passes out Uncoded 09/09/22 19:56 or does not feel well. (diesel, oils) Physical Exam Vitals: Vital Signs Temp Pulse Pulse Resp BP BP Pulse Ox 09/10/22 07:30 62 20 93/40 98 09/10/22 07:15 52 L 16 107/49 09/10/22 07:00 49 L 17 113/63 98 09/10/22 06:45 49 L 13 118/47 96 09/10/22 06:30 57 L 4 L 111/75 98 09/10/22 06:15 52 L 11 L 105/39 98 09/10/22 06:00 50 L 8 L 116/48 97 09/10/22 05:45 54 L 16 117/48 97 09/10/22 05:30 53 L 10 L 118/61 97 09/10/22 05:15 55 L 0 L 100/42 97 09/10/22 05:00 50 L 0 L 103/41 97 09/10/22 04:45 50 L 16 110/60 95 09/10/22 04:30 57 L 12 113/46 96 09/10/22 04:15 59 L 18 105/43 97 09/10/22 04:00 97.5 F L 56 L 15 98/48 93 L 09/10/22 03:45 53 L 17 94/35 93 L 09/10/22 03:30 54 L 14 100/47 91 L 09/10/22 03:15 57 L 17 98/58 91 L 09/10/22 03:00 57 L 15 93/38 93 L 09/10/22 02:45 59 L 12 85/38 90 L 09/10/22 02:30 120 H 15 99/45 97 09/10/22 02:15 65 18 106/52 97 09/10/22 02:00 123 H 15 118/47 98 09/10/22 01:45 74 15 110/44 95 09/10/22 01:30 70 16 112/56 97 09/10/22 01:15 66 25 H 94/43 99 09/10/22 01:00 74 14 102/54 97 09/10/22 00:45 65 14 106/51 98 09/10/22 00:30 58 L 12 100/42 97 09/10/22 00:17 59 L 14 91/37 97 09/10/22 00:15 60 15 91/37 97 09/10/22 00:00 63 23 99/75 94 L 09/09/22 23:45 65 16 121/47 97 09/09/22 23:30 60 12 122/46 97 09/09/22 23:20 65 15 122/46 96 09/09/22 23:10 63 16 113/50 98 09/09/22 23:00 68 19 110/47 95 09/09/22 22:50 97.7 F 71 16 110/47 94 L 09/09/22 22:45 97.7 F 71 16 110/47 95 09/09/22 22:15 55 L 18 106/45 97 09/09/22 21:37 61 20 97/45 97 09/09/22 19:43 66 20 86/48 98 Intake and Output 09/09/22 09/10/22 09/10/22 22:59 06:59 14:59 Intake Total 1347.979 175.331 Output Total 150 50 Balance 1197.979 125.331 Intake: IV 1310 130 Magnesium Sulfate-D5w Pmx 400 1 gm In Dextrose/Water 1 100ml.bag @ 100 mls/hr IVPB Q1H HARIKA Rx#: [id number] Sodium Chloride 0.9% 1, 910 130 000 ml @ 75 mls/hr IV . [id number] HARIKA Rx#:[id number] Intake, IV Titration 37.979 45.331 Amount Norepinephrine 4 mg In 37.979 45.331 Sodium Chloride 0.9% 250 ml @ 0.03 MCG/KG/MIN 10. 421 mls/hr IV .Q24H HARIKA Rx#:[id number] Output: Urine 150 50 Other: Voiding Method External Catheter # Voids 1 1 Weight 97.7 kg 97.7 kg - Constitutional General appearance: cooperative, no acute distress - EENT Eyes: PERRLA - Neck Neck: no lymphadenopathy, normal ROM, no rigidity - Respiratory Respiratory: bilateral: CTA - Cardiovascular Rhythm: regular Heart sounds: normal: S1, S2 - Gastrointestinal General gastrointestinal: soft, no tenderness - Integumentary Generalized rash of upper extremities and torso Integumentary: rash - Musculoskeletal Musculoskeletal: generalized weakness - Psychiatric Psychiatric: A&O x's 3, appropriate affect, intact judgment & insight Results CBC & Chem 7: 09/10/22 05:15 09/10/22 05:15 Labs: Abnormal Lab Results - Last 24 Hours (Table) 09/09/22 09/09/22 09/09/22 Range/Units 19:48 19:48 22:43 RBC 3.00 L (3.80-5.40) m/uL Hgb 8.4 L (11.4-16.0) gm/dL Hct 25.9 L (34.0-46.0) % RDW 18.2 H (11.5-15.5) % Lymphocytes # 0.6 L (1.0-4.8) k/uL Sodium 131 L (137-145) mmol/L Carbon Dioxide (22-30) mmol/L BUN 70 H (7-17) mg/dL Creatinine 1.67 H (0.52-1.04) mg/dL Glucose 140 H (74-99) mg/dL POC Glucose (mg/dL) 202 H (70-110) mg/dL Calcium 7.0 L (8.4-10.2) mg/dL Magnesium (1.6-2.3) mg/dL Total Protein 4.3 L (6.3-8.2) g/dL Albumin 2.0 L (3.5-5.0) g/dL 09/10/22 09/10/22 09/10/22 Range/Units 00:27 05:15 05:15 RBC 2.88 L (3.80-5.40) m/uL Hgb 8.1 L (11.4-16.0) gm/dL Hct 25.8 L (34.0-46.0) % RDW 18.1 H (11.5-15.5) % Lymphocytes # 0.6 L (1.0-4.8) k/uL Sodium 134 L 132 L (137-145) mmol/L Carbon Dioxide 18 L 18 L (22-30) mmol/L BUN 73 H 70 H (7-17) mg/dL Creatinine 1.62 H 1.60 H (0.52-1.04) mg/dL Glucose 194 H 252 H (74-99) mg/dL POC Glucose (mg/dL) (70-110) mg/dL Calcium 7.3 L 7.3 L (8.4-10.2) mg/dL Magnesium 1.1 L (1.6-2.3) mg/dL Total Protein 4.3 L (6.3-8.2) g/dL Albumin 1.9 L (3.5-5.0) g/dL 09/10/22 Range/Units 06:35 RBC (3.80-5.40) m/uL Hgb (11.4-16.0) gm/dL Hct (34.0-46.0) % RDW (11.5-15.5) % Lymphocytes # (1.0-4.8) k/uL Sodium (137-145) mmol/L Carbon Dioxide (22-30) mmol/L BUN (7-17) mg/dL Creatinine (0.52-1.04) mg/dL Glucose (74-99) mg/dL POC Glucose (mg/dL) 295 H (70-110) mg/dL Calcium (8.4-10.2) mg/dL Magnesium (1.6-2.3) mg/dL Total Protein (6.3-8.2) g/dL Albumin (3.5-5.0) g/dL Thrombosis Risk Factor Assmnt - Choose All That Apply Each Factor Represents 1 point: Obesity (BMI >25) Each Risk Factor Represents 3 Points: Age 75 years or older Other congenital or acquired thrombophilia - If yes, enter type in comment: No Thrombosis Risk Factor Assessment Total Risk Factor Score: 4 Thrombosis Risk Factor Assessment Level: Moderate Risk Assessment and Plan (1) Hypotension Current Visit: Yes Status: Acute Code(s): I95.9 - HYPOTENSION, UNSPECIFIED SNOMED Code(s): 24746330 (2) CKD (chronic kidney disease) Current Visit: No Status: Acute Code(s): N18.9 - CHRONIC KIDNEY DISEASE, UNSPECIFIED SNOMED Code(s): 243287994 (3) Diabetes Current Visit: No Status: Acute Code(s): E11.9 - TYPE 2 DIABETES MELLITUS WITHOUT COMPLICATIONS SNOMED Code(s): 01892660 (4) Chronic wound Current Visit: Yes Status: Acute Code(s): T14.8XXA - OTHER INJURY OF UNSPECIFIED BODY REGION, INITIAL ENCOUNTER SNOMED Code(s): 97178551083131 (5) Hyperlipidemia Current Visit: Yes Status: Acute Code(s): E78.5 - HYPERLIPIDEMIA, UNSPECIFIED SNOMED Code(s): 33063249 (6) History of atrial fibrillation Current Visit: Yes Status: Acute Code(s): Z86.79 - PERSONAL HISTORY OF OTHER DISEASES OF THE CIRCULATORY SYSTEM SNOMED Code(s): 096849882 (7) Rash Current Visit: Yes Status: Acute Code(s): R21 - RASH AND OTHER NONSPECIFIC SKIN ERUPTION SNOMED Code(s): 671262865 Plan: Home medications have been reconciled. Hold metoprolol. Check labs in the morning. Appreciate multiple consultants. Patient seen and evaluated by nurse practitioner, physician in agreement with plan
[2022-09-10] MEDS ORDERED: MENTHOL-ZINC OXIDE OINT 113 GM TUBE TOPICAL PRN (09:15)
[2022-09-10] MEDS: APIXABAN 5 MG TAB PO SCH ×2 (09:21→20:00)
[2022-09-10] MEDS: SODIUM BICARBONATE TAB 650 MG TAB PO SCH ×2 (09:21→20:00)
[2022-09-10] MEDS: methylPREDNISolone SOD SUCCI 40 MG/ML 1 ML VIAL IV SCH ×2 (09:22→20:00)
[2022-09-10] MEDS: PANTOPRAZOLE 40 MG/10 ML VIAL IV SCH (09:22)
[2022-09-10] MEDS: ESCITALOPRAM 10 MG TAB PO SCH (09:22)
[2022-09-10] MEDS: AMIODARONE 100 MG TAB PO SCH (09:22)
[2022-09-10] MEDS: NYSTATIN 100,000 UNIT/GM POWD 15 GM TOPICAL SCH ×2 (09:23→20:01)
[2022-09-10] MEDS: DAPAGLIFLOZIN PROPANEDIOL 10 MG TABLET PO SCH (09:27)
[2022-09-10] MEDS ORDERED: VANCOMYCIN 1,750 MG in SODIUM CHLORIDE 0.9% 500 ML 500 ML IVPB ONE (10:00)
--- NOTE | 2022-09-10 10:04 | P.CONS ---
History of Present Illness - Reason for Consult Consult date: 09/10/22 wound care - History of Present Illness This is a 76-year-old female known to the wound care center with a nonhealing ulceration to the left heel and multiple abrasions and open ulcerations to the back. Patient has history of osteomyelitis to the left heel that she was on IV antibiotics. Currently utilizing Santyl to the ulceration. Ulceration shows granulation throughout the wound bed with minimal slough to the edges the wound edges are attached to the wound base there is no tunneling or undermining. Patient back has multiple open ulcerations with skin tears and stage II pressure ulcers. All the ulceration shows granulation throughout the wound bed with minimal slough noted. Patient does not tolerate dressings to the site. Previously utilize triad however patient complained of burning currently using calmoseptine if the patient is tolerating well. Review Of Systems: Constitutional: No fever, no chills, no night sweats. No weight change. No weakness, fatigue or lethargy. No daytime sleepiness. Integumentary:reports wounds, no lesions. No rash or pruritus. No unusual bruising. No change in hair or nails. Physical exam: General Appearance: Alert, cooperative, no distress, appears stated age. Skin: See HPI all other Skin color, texture, tugor normal, no rashes or lesions. Neurologic: Alert oriented x3 Assessment: 1. Stage IV pressure ulcer left heel 2. Diabetic foot ulcer 3. Stage II pressure ulcer multiple areas back Plan: 1. Apply Santyl, saline moistened gauze, dry gauze wrap with ABD rolled gauze and secure take. Change daily. Apply callus obtained to the entire back as n eeded. Avoid any dressings due to irritation. Patient will continue to follow up in the wound care center at 1:30 on Friday when she is discharged from the hospital. Thank you for the consultation any questions his contact the wound care center DNP note has been reviewed and discussed with Dr. Lujan and the impression and plan of care has been directed as dictated. Past Medical History Past Medical History: Atrial Fibrillation, Coronary Artery Disease (CAD), CVA/TIA, Diabetes Mellitus, Deep Vein Thrombosis (DVT), Hypertension, Myocardial Infarction ([place]), Osteoarthritis (OA) Additional Past Medical History / Comment(s): hx tia, hx stroke behind left eye., lt eye macular , states hospitalized with Covid April 2019 with life support and stage 3 kidney failure., hx of fall with hip fx and surgery 01/13/22 and residing at [facility] for Rehab- no wt bearing, DVT during ., varicose veins, states painful sore left heel., hx of t.b. as a child with scarring on lungs. Last Myocardial Infarction Date:: unknown date History of Any Multi-Drug Resistant Organisms: VRE Year Discovered:: 09/08/20 MDRO Source:: Groin Past Surgical History: Adenoidectomy, Hysterectomy, Orthopedic Surgery, Tonsillectomy, Tubal Ligation Additional Past Surgical History / Comment(s): pilonidal cyst twice as child, rt knee arthroscopy, krystyna cataracts, krystyna great toe sx, ORIF Left hip (01/13/22) Past Anesthesia/Blood Transfusion Reactions: Previous Problems w/ Anesthesia, Postoperative Nausea & Vomiting (PONV) Additional Past Anesthesia/Blood Transfusion Reaction / Comm: difficulty waking up after sx. clausterphobia. 1960 blood transfusion(during child ) pt stated had palpitations after 2nd unit given Past Psychological History: Anxiety Smoking Status: Never smoker Past Alcohol Use History: None Reported Past Drug Use History: None Reported - Past Family History Mother Family Medical History: Cancer Additional Family Medical History / Comment(s): lung cancer Father Family Medical History: Coronary Artery Disease (CAD) Additional Family Medical History / Comment(s): heart disease, kidney disese Medications and Allergies Home Medications Medication Instructions Recorded Confirmed Type Apixaban [Eliquis] 5 mg PO BID 08/13/20 09/09/22 History Atorvastatin [Lipitor] 20 mg PO HS@2100 01/12/22 09/09/22 History Dapagliflozin Propanediol [Farxiga] 10 mg PO DAILY 01/12/22 09/09/22 History Sacubitril/Valsartan [Entresto 24 1 tab PO BID@0900,1700 01/12/22 09/09/22 History mg-26 mg Tablet] Amiodarone [Cordarone] 100 mg PO DAILY@0900 03/05/22 09/09/22 History Escitalopram [Lexapro] 10 mg PO DAILY 03/05/22 09/09/22 History Magnesium Hydroxide [Milk of 2,400 mg PO Q8H PRN 03/05/22 09/09/22 History Magnesia] Metoprolol Tartrate [Lopressor] 25 mg PO BID@0900,1700 03/05/22 09/09/22 History Omeprazole [PriLOSEC] 20 mg PO DAILY@0600 03/05/22 09/09/22 History Tamsulosin [Flomax] 0.4 mg PO DAILY@1700 03/05/22 09/09/22 History Albuterol Sulfate [Ventolin HFA] 2 puff INHALATION RT-Q4H PRN 06/17/22 09/09/22 History Calcium Carbonate [Tums] 1,000 mg PO Q4H PRN 06/17/22 09/09/22 History Multivitamins, Thera [Multivitamin 1 tab PO DIRECTED 06/17/22 09/09/22 History (formulary)] Spironolactone 25 mg PO DAILY 06/17/22 09/09/22 History 0.9 % Sodium Chloride [Sodium 10 ml IV BID 09/09/22 09/09/22 History Chloride Flush] ALPRAZolam [Xanax] 0.5 mg PO Q8H PRN 09/09/22 09/09/22 History Acetaminophen [Tylenol 8 Hour] 650 mg PO Q6H PRN 09/09/22 09/09/22 History Ammonium Lactate Cream [Lac-Hydrin 1 applic TOPICAL BID 09/09/22 09/09/22 History 12% Cream] Bumetanide [BUMEX] 2 mg PO DAILY@1500 09/09/22 09/09/22 History Fluconazole [Diflucan] 100 mg PO DAILY 09/09/22 09/09/22 History Insulin Glargine-Yfgn [Semglee 5 units SQ DAILY 09/09/22 09/09/22 History (Yfgn) Pen] Insulin Glargine-Yfgn [Semglee 10 units SQ HS 09/09/22 09/09/22 History (Yfgn) Pen] Ipratropium [place] [Atrovent Hfa] 2 puff INHALATION RT-QID 09/09/22 09/09/22 History L.acidoph,Paracasei, B.lactis 1 cap PO DAILY 09/09/22 09/09/22 History [Probiotic] bisacodyL [Correctol] 10 mg PO DAILY PRN 09/09/22 09/09/22 History oxyCODONE HCL [OxyIR] 5 mg PO Q4H 09/09/22 09/09/22 History Allergies Allergy/AdvReac Type Severity Reaction Status Date / Time shellfish derived [Shellfish] Allergy Severe vomiting Verified 09/09/22 20:53 -very ill adhesive Allergy skin red Verified 09/09/22 20:53 and murguia, tears skin aluminum Allergy skin turns Verified 09/09/22 20:53 black, passes out Antihistamines - Allergy heart Verified 09/09/22 20:53 Ethylenediamine palpitations codeine Allergy migraines Verified 09/09/22 20:53 epinephrine Allergy heart Verified 09/09/22 20:53 palpitations hydrogen peroxide Allergy murguia and Verified 09/09/22 20:53 causes infection latex Allergy passes out Verified 09/09/22 20:53 lidocaine Allergy gtts in Verified 09/09/22 20:53 eyes and passed out nickel Allergy turns skin Verified 09/09/22 20:53 black and passes out procaine HCl [From Novocain] Allergy passed Verified 09/09/22 20:53 out- due to epinephrine in it. thiopental sodium Allergy needed cpr Verified 09/09/22 20:53 [From Pentothal] resusitation egg yolk AdvReac Diarrhea Verified 09/09/22 20:53 surgical felicita Allergy Severe had to be Uncoded 09/09/22 19:56 removed 2 days post-op petroleum products AdvReac passes out Uncoded 09/09/22 19:56 or does not feel well. (diesel, oils) Physical Exam Vitals: Vital Signs Temp Pulse Pulse Resp BP BP Pulse Ox 09/10/22 07:30 62 20 93/40 98 09/10/22 07:15 52 L 16 107/49 09/10/22 07:00 49 L 17 113/63 98 09/10/22 06:45 49 L 13 118/47 96 09/10/22 06:30 57 L 4 L 111/75 98 09/10/22 06:15 52 L 11 L 105/39 98 09/10/22 06:00 50 L 8 L 116/48 97 09/10/22 05:45 54 L 16 117/48 97 09/10/22 05:30 53 L 10 L 118/61 97 09/10/22 05:15 55 L 0 L 100/42 97 09/10/22 05:00 50 L 0 L 103/41 97 09/10/22 04:45 50 L 16 110/60 95 09/10/22 04:30 57 L 12 113/46 96 09/10/22 04:15 59 L 18 105/43 97 09/10/22 04:00 97.5 F L 56 L 15 98/48 93 L 09/10/22 03:45 53 L 17 94/35 93 L 09/10/22 03:30 54 L 14 100/47 91 L 09/10/22 03:15 57 L 17 98/58 91 L 09/10/22 03:00 57 L 15 93/38 93 L 09/10/22 02:45 59 L 12 85/38 90 L 09/10/22 02:30 120 H 15 99/45 97 09/10/22 02:15 65 18 106/52 97 09/10/22 02:00 123 H 15 118/47 98 09/10/22 01:45 74 15 110/44 95 09/10/22 01:30 70 16 112/56 97 09/10/22 01:15 66 25 H 94/43 99 09/10/22 01:00 74 14 102/54 97 09/10/22 00:45 65 14 106/51 98 09/10/22 00:30 58 L 12 100/42 97 09/10/22 00:17 59 L 14 91/37 97 09/10/22 00:15 60 15 91/37 97 09/10/22 00:00 63 23 99/75 94 L 09/09/22 23:45 65 16 121/47 97 09/09/22 23:30 60 12 122/46 97 09/09/22 23:20 65 15 122/46 96 09/09/22 23:10 63 16 113/50 98 09/09/22 23:00 68 19 110/47 95 09/09/22 22:50 97.7 F 71 16 110/47 94 L 09/09/22 22:45 97.7 F 71 16 110/47 95 09/09/22 22:15 55 L 18 106/45 97 09/09/22 21:37 61 20 97/45 97 09/09/22 19:43 66 20 86/48 98 Intake and Output 06/19/23 06/20/23 06/20/23 22:59 06:59 14:59 Intake Total 1347.979 177.357 Output Total 150 50 Balance 1197.979 127.357 Intake: IV 1310 130 Magnesium Sulfate-D5w Pmx 400 1 gm In Dextrose/Water 1 100ml.bag @ 100 mls/hr IVPB Q1H [facility]IKA Rx#: [id number] Sodium Chloride 0.9% 1, 910 130 000 ml @ 75 mls/hr IV . [id number] [facility]IKA Rx#:[id number] Intake, IV Titration 37.979 47.357 Amount Norepinephrine 4 mg In 37.979 47.357 Sodium Chloride 0.9% 250 ml @ 0.03 MCG/KG/MIN 10. 421 mls/hr IV .Q24H HARIKA Rx#:[id number] Output: Urine 150 50 Other: Voiding Method External Catheter # Voids 1 1 Weight 97.7 kg 97.7 kg Results CBC & Chem 7: 09/10/22 05:15 09/10/22 05:15 Labs: Abnormal Lab Results - Last 24 Hours (Table) 09/09/22 09/09/22 09/09/22 Range/Units 19:48 19:48 22:43 RBC 3.00 L (3.80-5.40) m/uL Hgb 8.4 L (11.4-16.0) gm/dL Hct 25.9 L (34.0-46.0) % RDW 18.2 H (11.5-15.5) % Lymphocytes # 0.6 L (1.0-4.8) k/uL Sodium 131 L (137-145) mmol/L Carbon Dioxide (22-30) mmol/L BUN 70 H (7-17) mg/dL Creatinine 1.67 H (0.52-1.04) mg/dL Glucose 140 H (74-99) mg/dL POC Glucose (mg/dL) 202 H (70-110) mg/dL Calcium 7.0 L (8.4-10.2) mg/dL Magnesium (1.6-2.3) mg/dL Total Protein 4.3 L (6.3-8.2) g/dL Albumin 2.0 L (3.5-5.0) g/dL 09/10/22 09/10/22 09/10/22 Range/Units 00:27 05:15 05:15 RBC 2.88 L (3.80-5.40) m/uL Hgb 8.1 L (11.4-16.0) gm/dL Hct 25.8 L (34.0-46.0) % RDW 18.1 H (11.5-15.5) % Lymphocytes # 0.6 L (1.0-4.8) k/uL Sodium 134 L 132 L (137-145) mmol/L Carbon Dioxide 18 L 18 L (22-30) mmol/L BUN 73 H 70 H (7-17) mg/dL Creatinine 1.62 H 1.60 H (0.52-1.04) mg/dL Glucose 194 H 252 H (74-99) mg/dL POC Glucose (mg/dL) (70-110) mg/dL Calcium 7.3 L 7.3 L (8.4-10.2) mg/dL Magnesium 1.1 L (1.6-2.3) mg/dL Total Protein 4.3 L (6.3-8.2) g/dL Albumin 1.9 L (3.5-5.0) g/dL 09/10/22 Range/Units 06:35 RBC (3.80-5.40) m/uL Hgb (11.4-16.0) gm/dL Hct (34.0-46.0) % RDW (11.5-15.5) % Lymphocytes # (1.0-4.8) k/uL Sodium (137-145) mmol/L Carbon Dioxide (22-30) mmol/L BUN (7-17) mg/dL Creatinine (0.52-1.04) mg/dL Glucose (74-99) mg/dL POC Glucose (mg/dL) 295 H (70-110) mg/dL Calcium (8.4-10.2) mg/dL Magnesium (1.6-2.3) mg/dL Total Protein (6.3-8.2) g/dL Albumin (3.5-5.0) g/dL Assessment and Plan (1) Pressure ulcer of left heel, stage 4 Current Visit: Yes Status: Acute Code(s): L89.624 - PRESSURE ULCER OF LEFT HEEL, STAGE 4 SNOMED Code(s): 67659822135823 (2) Pressure ulcer of other site, stage 2 Current Visit: Yes Status: Acute Code(s): L89.892 - PRESSURE ULCER OF OTHER SITE, STAGE 2 SNOMED Code(s): 0385889912 (3) Diabetes with skin ulcer Current Visit: No Status: Acute Code(s): E11.622 - TYPE 2 DIABETES MELLITUS WITH OTHER SKIN ULCER; L98.499 - NON-PRESSURE CHRONIC ULCER OF SKIN OF SITES W UNSP SEVERITY SNOMED Code(s): 31341103 (4) Type 2 diabetes mellitus with foot ulcer Current Visit: Yes Status: Acute Code(s): E11.621 - TYPE 2 DIABETES MELLITUS WITH FOOT ULCER; L97.509 - NON-PRESSURE CHRONIC ULCER OTH PRT UNSP FOOT W UNSP SEVERITY SNOMED Code(s): 739254384
[2022-09-10] MEDS: COLLAGENASE 250 UNIT/GM OINTMENT 30 GM TUBE TOPICAL SCH (10:52)
[2022-09-10 11:33] LABS: Glucose,Whole Blood 268 mg/dL (70-110)
[2022-09-10] MEDS: MIDODRINE 5 MG TAB PO SCH ×2 (12:36→17:19)
--- NOTE | 2022-09-10 13:18 | CDI ---
Documentation Clarification Form Date: From: Alvina Harrington Phone: [phone] Admit Date: 09/09/2022 08:17:00 PM Patient Name: Bel Seth I Visit Number: [id number] Discharge Date: ATTENTION: The Clinical Documentation Specialists (CDI) and [facility] Coding Staff appreciate your assistance in clarifying documentation. Please respond to the clarification below the line at the bottom and electronically sign. The CDI & [facility] Coding staff will review the response and follow-up if needed. Please note: Queries are made part of the Legal Health Record. If you have any questions, please contact the author of this message via ITS. Dr. Luis Shirley Hypotension is documented in the Admission H&P on 09/10. Additional clarification regarding this diagnosis is requested. History/Risk Factors: " 76-year-old female who presented to the emergency department as a transfer from [facility] with concern for cellulitis of her right arm. Patient does have a history of chronic wounds of lower extremities." - Per Admission H&P on 09/10 Clinical Indicators: "in the intensive care unit for suspected sepsis" "patient did have an initial workup including an x-ray of her left foot which showed findings concerning for osteomyelitis involving the lateral cuneiform. There was associated soft tissue swelling." - Per Pulmonology Consult note on 09/10 "Suspected hypotension and sepsis, currently requiring norepinephrine infusion" "concerns of osteomyelitis of the lateral cuneiform on left foot x-ray performed at outside facility" - Per Pulmonology Consult note on 09/10 VS: 09/09 19:43 - HR 66, RR 20, BP 86/48 09/09 21:37 - HR 61, RR 20, BP 97/45 09/09 23:45 - HR 65, RR 16, BP 124/47 09/10 00:15 - HR 60, RR 15, BP 91/37 WBC'S 09/09 - 6.8 09/10 - 7.1 Lactic Acid: 09/09 - 1.5 Treatment: Per Pulmonology Consult note on 09/10 "Blood cultures are pending Continue empiric antibiotics Consult infectious disease Continue norepinephrine for hypotension Start the patient on normal saline at 130 ML's per hour" Can the hypotension be further specified? [ ] Septic Shock [ ] Idiopathic Hypotension [ ] Other Condition, please specify [ x ] Unable to determine MTDD
[2022-09-10] MEDS: BUMETANIDE 1 MG TAB PO SCH (16:32)
[2022-09-10 16:57] LABS: Glucose,Whole Blood 221 mg/dL (70-110)
[2022-09-10 19:42] LABS: Glucose,Whole Blood 261 mg/dL (70-110)
[2022-09-10] MEDS: INSULIN DETEMIR (LEVEMIR) 100 UNIT/ML SYR SQ SCH (20:00)
--- NOTE | 2022-09-10 22:59 | P.CONS ---
History of Present Illness - Reason for Consult Consult date: 09/10/22 Osteomyelitis Requesting physician: Amador Randall - Chief Complaint Rashand weakness x few days - History of Present Illness Patient is a 76-year-old female with a past medical history significant for diabetes mellitus hypertension atrial fibrillation coronary artery disease has been transferred to [facility] from the [facility] concerning for cellulitis of the right arm, patient did have a negative ultrasound and she did have blood cultures drawn at that facility patient was complaining of some discomfort to the arm but no history of any trauma wound or any drainage the patient did have a wound to her left foot to the heel area for apparently the patient follows at [facility] wound care center [facility] and has been evaluated by the wound care nurse juve and mention the wound has shown significant improvement I was able to review the picture overall wound base looks clean with no evidence of any slough tissue surrounding redness patient on presentation to hospital was afebrile and no fever has been gone subsequently patient was hypotensive requiring pressor support for the patient was admitted to ICU patient did have normal white count BUN/creatinine mildly elevated liver enzymes are normal patient is currently on vancomycin cefepime has been discontinued infectious disease was consulted with concern for possible osteomyelitis to the left heel area patient did have a chest x-ray cardiomegaly with left perihilar infiltrate Review of Systems Positive point and negatives has been mentioned in the HPI, complete review of systems was performed and all other systems are negative Past Medical History Past Medical History: Atrial Fibrillation, Coronary Artery Disease (CAD), CVA/TIA, Diabetes Mellitus, Deep Vein Thrombosis (DVT), Hypertension, Myocardial Infarction (VT), Osteoarthritis (OA) Additional Past Medical History / Comment(s): hx tia, hx stroke behind left eye., lt eye macular , states hospitalized with Covid April 2019 with life support and stage 3 kidney failure., hx of fall with hip fx and surgery 01/13/22 and residing at [facility] for Rehab- no wt bearing, DVT during ., varicose veins, states painful sore left heel., hx of t.b. as a child with scarring on lungs. Last Myocardial Infarction Date:: unknown date History of Any Multi-Drug Resistant Organisms: VRE Year Discovered:: 09/08/20 MDRO Source:: Groin Past Surgical History: Adenoidectomy, Hysterectomy, Orthopedic Surgery, Tonsillectomy, Tubal Ligation Additional Past Surgical History / Comment(s): pilonidal cyst twice as child, rt knee arthroscopy, krystyna cataracts, krystyna great toe sx, ORIF Left hip (01/13/22) Past Anesthesia/Blood Transfusion Reactions: Previous Problems w/ Anesthesia, Postoperative Nausea & Vomiting (PONV) Additional Past Anesthesia/Blood Transfusion Reaction / Comm: difficulty waking up after sx. clausterphobia. 1961 blood transfusion(during child ) pt stated had palpitations after 2nd unit given Past Psychological History: Anxiety Smoking Status: Never smoker Past Alcohol Use History: None Reported Past Drug Use History: None Reported - Past Family History Mother Family Medical History: Cancer Additional Family Medical History / Comment(s): lung cancer Father Family Medical History: Coronary Artery Disease (CAD) Additional Family Medical History / Comment(s): heart disease, kidney disese Medications and Allergies Home Medications Medication Instructions Recorded Confirmed Type Apixaban [Eliquis] 5 mg PO BID 08/13/20 09/09/22 History Dapagliflozin Propanediol [Farxiga] 10 mg PO DAILY 01/12/22 09/09/22 History Sacubitril/Valsartan [Entresto 24 1 tab PO BID@0900,1700 01/12/22 09/09/22 History mg-26 mg Tablet] Amiodarone [Cordarone] 100 mg PO DAILY@0900 03/05/22 09/09/22 History Escitalopram [Lexapro] 10 mg PO DAILY 03/05/22 09/09/22 History Magnesium Hydroxide [Milk of 2,400 mg PO Q8H PRN 03/05/22 09/09/22 History Magnesia] Metoprolol Tartrate [Lopressor] 25 mg PO BID@0900,1700 03/05/22 09/09/22 History Omeprazole [PriLOSEC] 20 mg PO DAILY@0600 03/05/22 09/09/22 History Tamsulosin [Flomax] 0.4 mg PO DAILY@1700 03/05/22 09/09/22 History Albuterol Sulfate [Ventolin HFA] 2 puff INHALATION RT-Q4H PRN 06/17/22 09/09/22 History Calcium Carbonate [Tums] 1,000 mg PO Q4H PRN 06/17/22 09/09/22 History Multivitamins, Thera [Multivitamin 1 tab PO DIRECTED 06/17/22 09/09/22 History (formulary)] Spironolactone 25 mg PO DAILY 06/17/22 09/09/22 History 0.9 % Sodium Chloride [Sodium 10 ml IV BID 09/09/22 09/09/22 History Chloride Flush] ALPRAZolam [Xanax] 0.5 mg PO Q8H PRN 09/09/22 09/09/22 History Acetaminophen [Tylenol 8 Hour] 650 mg PO Q6H PRN 09/09/22 09/09/22 History Ammonium Lactate Cream [Lac-Hydrin 1 applic TOPICAL BID 09/09/22 09/09/22 History 12% Cream] Bumetanide [BUMEX] 2 mg PO DAILY@1500 09/09/22 09/09/22 History Fluconazole [Diflucan] 100 mg PO DAILY 09/09/22 09/09/22 History Insulin Glargine-Yfgn [Semglee 5 units SQ DAILY 09/09/22 09/09/22 History (Yfgn) Pen] Insulin Glargine-Yfgn [Semglee 10 units SQ HS 09/09/22 09/09/22 History (Yfgn) Pen] Ipratropium Quinton [Atrovent Hfa] 2 puff INHALATION RT-QID 09/09/22 09/09/22 History L.acidoph,Paracasei, B.lactis 1 cap PO DAILY 09/09/22 09/09/22 History [Probiotic] bisacodyL [Correctol] 10 mg PO DAILY PRN 09/09/22 09/09/22 History oxyCODONE HCL [OxyIR] 5 mg PO Q4H 09/09/22 09/09/22 History DAPTOmycin [Cubicin] 600 mg IV DAILY #40 each 09/17/22 Rx oxyCODONE-APAP 5-325MG [Percocet 1 each PO Q6HR PRN #0 tab 09/17/22 Rx 5-325 mg] Allergies Allergy/AdvReac Type Severity Reaction Status Date / Time shellfish derived [Shellfish] Allergy Severe vomiting Verified 09/09/22 20:53 -very ill adhesive Allergy skin red Verified 09/09/22 20:53 and murguia, tears skin aluminum Allergy skin turns Verified 09/09/22 20:53 black, passes out Antihistamines - Allergy heart Verified 09/09/22 20:53 Ethylenediamine palpitations codeine Allergy migraines Verified 09/09/22 20:53 epinephrine Allergy heart Verified 09/09/22 20:53 palpitations hydrogen peroxide Allergy murguia and Verified 09/09/22 20:53 causes infection latex Allergy passes out Verified 09/09/22 20:53 lidocaine Allergy gtts in Verified 09/09/22 20:53 eyes and passed out nickel Allergy turns skin Verified 09/09/22 20:53 black and passes out procaine HCl [From Novocain] Allergy passed Verified 09/09/22 20:53 out- due to epinephrine in it. thiopental sodium Allergy needed cpr Verified 09/09/22 20:53 [From Pentothal] resusitation surgical felicita Allergy Severe had to be Uncoded 09/09/22 19:56 removed 2 days post-op petroleum products AdvReac passes out Uncoded 09/09/22 19:56 or does not feel well. (diesel, oils) Physical Exam Vitals: Vital Signs Temp Pulse Pulse Resp BP BP Pulse Ox 09/10/22 10:15 17 122/72 99 09/10/22 10:00 17 122/57 97 09/10/22 09:45 16 109/53 85 L 09/10/22 09:30 57 L 15 123/98 98 09/10/22 09:15 15 119/76 84 L 09/10/22 09:00 86 133/49 76 L 09/10/22 08:45 63 22 148/56 99 09/10/22 08:30 57 L 16 96/81 09/10/22 08:15 101 H 15 117/71 99 09/10/22 08:00 97.5 F L 49 L 16 108/57 98 09/10/22 07:45 56 L 15 109/55 98 09/10/22 07:30 62 20 93/40 98 09/10/22 07:15 52 L 16 107/49 09/10/22 07:00 49 L 17 113/63 98 09/10/22 06:45 49 L 13 118/47 96 09/10/22 06:30 57 L 4 L 111/75 98 09/10/22 06:15 52 L 11 L 105/39 98 06/20/23 06:00 50 L 8 L 116/48 97 09/10/22 05:45 54 L 16 117/48 97 09/10/22 05:30 53 L 10 L 118/61 97 09/10/22 05:15 55 L 0 L 100/42 97 09/10/22 05:00 50 L 0 L 103/41 97 09/10/22 04:45 50 L 16 110/60 95 09/10/22 04:30 57 L 12 113/46 96 09/10/22 04:15 59 L 18 105/43 97 09/10/22 04:00 97.5 F L 56 L 15 98/48 93 L 09/10/22 03:45 53 L 17 94/35 93 L 09/10/22 03:30 54 L 14 100/47 91 L 09/10/22 03:15 57 L 17 98/58 91 L 09/10/22 03:00 57 L 15 93/38 93 L 09/10/22 02:45 59 L 12 85/38 90 L 09/10/22 02:30 120 H 15 99/45 97 09/10/22 02:15 65 18 106/52 97 09/10/22 02:00 123 H 15 118/47 98 09/10/22 01:45 74 15 110/44 95 09/10/22 01:30 70 16 112/56 97 09/10/22 01:15 66 25 H 94/43 99 09/10/22 01:00 74 14 102/54 97 09/10/22 00:45 65 14 106/51 98 09/10/22 00:30 58 L 12 100/42 97 09/10/22 00:17 59 L 14 91/37 97 09/10/22 00:15 60 15 91/37 97 09/10/22 00:00 63 23 99/75 94 L 09/09/22 23:45 65 16 121/47 97 09/09/22 23:30 60 12 122/46 97 09/09/22 23:20 65 15 122/46 96 09/09/22 23:10 63 16 113/50 98 09/09/22 23:00 68 19 110/47 95 09/09/22 22:50 97.7 F 71 16 110/47 94 L 09/09/22 22:45 97.7 F 71 16 110/47 95 09/09/22 22:15 55 L 18 106/45 97 09/09/22 21:37 61 20 97/45 97 09/09/22 19:43 66 20 86/48 98 Intake and Output 09/09/22 09/10/22 09/10/22 22:59 06:59 14:59 Intake Total 1347.979 457.357 Output Total 150 150 Balance 1197.979 307.357 Intake: IV 1310 410 Magnesium Sulfate-D5w Pmx 400 1 gm In Dextrose/Water 1 100ml.bag @ 100 mls/hr IVPB Q1H HARIKA Rx#: [id number] Sodium Chloride 0.9% 1, 910 410 000 ml @ 75 mls/hr IV . [id number] HARIKA Rx#:[id number] Intake, IV Titration 37.979 47.357 Amount Norepinephrine 4 mg In 37.979 47.357 Sodium Chloride 0.9% 250 ml @ 0.03 MCG/KG/MIN 10. 421 mls/hr IV .Q24H HARIKA Rx#:[id number] Output: Urine 150 150 Other: Voiding Method External Catheter # Voids 1 1 # Bowel Movements 1 Weight 97.7 kg 97.7 kg GENERAL DESCRIPTION: Elderly female lying in bed, no distress. No tachypnea or accessory muscle of respiration use. HEENT: Shows Pallor , no scleral icterus. Oral mucous membrane is dry. NECK: Trachea central, no thyromegaly. LUNGS: Unlabored breathing. Decreased breath sound at the base HEART: S1, S2, regular rate and rhythm. No loud murmur ABDOMEN: Soft, no tenderness , guarding or rigidity, no organomegaly EXTREMITIES: No edema of feet. SKIN: Diffuse maculopapular rash NEUROLOGICAL: The patient is lethargic however mood and affect normal. Results CBC & Chem 7: 09/17/22 08:34 09/17/22 08:34 Labs: Abnormal Lab Results - Last 24 Hours (Table) 09/09/22 09/09/22 09/09/22 Range/Units 19:48 19:48 22:43 RBC 3.00 L (3.80-5.40) m/uL Hgb 8.4 L (11.4-16.0) gm/dL Hct 25.9 L (34.0-46.0) % RDW 18.2 H (11.5-15.5) % Lymphocytes # 0.6 L (1.0-4.8) k/uL Sodium 131 L (137-145) mmol/L Carbon Dioxide (22-30) mmol/L BUN 70 H (7-17) mg/dL Creatinine 1.67 H (0.52-1.04) mg/dL Glucose 140 H (74-99) mg/dL POC Glucose (mg/dL) 202 H (70-110) mg/dL Calcium 7.0 L (8.4-10.2) mg/dL Magnesium (1.6-2.3) mg/dL Total Protein 4.3 L (6.3-8.2) g/dL Albumin 2.0 L (3.5-5.0) g/dL 09/10/22 09/10/22 09/10/22 Range/Units 00:27 05:15 05:15 RBC 2.88 L (3.80-5.40) m/uL Hgb 8.1 L (11.4-16.0) gm/dL Hct 25.8 L (34.0-46.0) % RDW 18.1 H (11.5-15.5) % Lymphocytes # 0.6 L (1.0-4.8) k/uL Sodium 134 L 132 L (137-145) mmol/L Carbon Dioxide 18 L 18 L (22-30) mmol/L BUN 73 H 70 H (7-17) mg/dL Creatinine 1.62 H 1.60 H (0.52-1.04) mg/dL Glucose 194 H 252 H (74-99) mg/dL POC Glucose (mg/dL) (70-110) mg/dL Calcium 7.3 L 7.3 L (8.4-10.2) mg/dL Magnesium 1.1 L (1.6-2.3) mg/dL Total Protein 4.3 L (6.3-8.2) g/dL Albumin 1.9 L (3.5-5.0) g/dL 09/10/22 Range/Units 06:35 RBC (3.80-5.40) m/uL Hgb (11.4-16.0) gm/dL Hct (34.0-46.0) % RDW (11.5-15.5) % Lymphocytes # (1.0-4.8) k/uL Sodium (137-145) mmol/L Carbon Dioxide (22-30) mmol/L BUN (7-17) mg/dL Creatinine (0.52-1.04) mg/dL Glucose (74-99) mg/dL POC Glucose (mg/dL) 295 H (70-110) mg/dL Calcium (8.4-10.2) mg/dL Magnesium (1.6-2.3) mg/dL Total Protein (6.3-8.2) g/dL Albumin (3.5-5.0) g/dL Assessment and Plan (1) Rash Current Visit: Yes Status: Acute Code(s): R21 - RASH AND OTHER NONSPECIFIC S KIN ERUPTION SNOMED Code(s): 491222821 (2) Pressure ulcer of left heel, stage 4 Current Visit: Yes Status: Acute Code(s): L89.624 - PRESSURE ULCER OF LEFT HEEL, STAGE 4 SNOMED Code(s): 39362636140877 Plan: 1patient with a chronic nonhealing wound to the left heel area however overall heel wound base looks clean and does not look deep enough to be tracking down to the bone and no evidence of any slough tissue clinically not behaving as osteomyelitis. Apparently the patient did have a PICC line and has been receiv ing antibiotics at the residential we will try to get more information from the residential 2-patient with a rash to the upper torso more likely drug-related 3we will check her inflammatory markers 4-local wound care per wound care team 5-continue the vancomycin while watching her kidney function closely while waiting for the culture to finalize We will follow on clinical condition and cultures to further adjust medication if needed Thank you for this consultation we will follow the patient along with you Time with Patient: Greater than 30
[2022-09-11 06:30] LABS: Glucose,Whole Blood 193 mg/dL (70-110)
[2022-09-11] MEDS: MIDODRINE 5 MG TAB PO SCH ×2 (07:26→16:46)
[2022-09-11] MEDS: INSULIN DETEMIR (LEVEMIR) 100 UNIT/ML SYR SQ SCH ×2 (07:26→21:09)
[2022-09-11] MEDS: INSULIN ASPART (NovoLOG) 100 UNIT/ML VIAL SQ SCH ×4 (07:26→21:09)
--- NOTE | 2022-09-11 08:28 | P.PN ---
Subjective Principal diagnosis: Hypotension This is 76-year-old white female with primarily bedridden who has having hypotension at the shelter. She is admitted and placed on appropriate pressors area the patient is now stabilizing as far as blood pressure and feels minimal chest pain or dizziness. No nausea or vomiting. No voiding difficulty stated. Objective - Vital Signs Vital signs: Vital Signs Temp 97.6 F 09/11/22 04:00 Pulse 49 L 09/11/22 04:00 Resp 13 09/11/22 04:00 BP 108/66 09/11/22 04:00 Pulse Ox 95 09/11/22 04:00 FiO2 Intake & Output 09/10/22 09/11/22 09/11/22 18:59 06:59 18:59 Intake Total 907.357 675 Output Total 250 800 Balance 657.357 -125 Intake: IV 860 675 Sodium Chloride 0.9% 1, 860 675 000 ml @ 75 mls/hr IV . [id number] HARIKA Rx#:[id number] Intake, IV Titration 47.357 Amount Norepinephrine 4 mg In 47.357 Sodium Chloride 0.9% 250 ml @ 0.03 MCG/KG/MIN 10. 421 mls/hr IV .Q24H HARIKA Rx#:[id number] Output: Urine 250 800 Other: Voiding Method External Catheter External Catheter # Voids 1 3 # Bowel Movements 1 - Constitutional General appearance: Present: cooperative - EENT Eyes: Absent: abnormal pupil - Neck Neck: Absent: lymphadenopathy - Respiratory Respiratory: bilateral: diminished - Cardiovascular Rhythm: regular Heart sounds: normal: S1, S2 Abnormal Heart Sounds: Absent: S3 Gallop - Gastrointestinal General gastrointestinal: Present: soft. Absent: tenderness - Psychiatric Psychiatric: Present: A&O x's 3 - Labs CBC & Chem 7: 09/10/22 05:15 09/10/22 05:15 Labs: Abnormal Lab Results - Last 24 Hours (Table) 09/10/22 09/10/22 09/10/22 Range/Units 05:15 11:31 16:56 POC Glucose (mg/dL) 268 H 221 H (70-110) mg/dL Procalcitonin 0.17 H (0.02-0.09) ng/mL 09/10/22 09/11/22 Range/Units 19:40 06:29 POC Glucose (mg/dL) 261 H 193 H (70-110) mg/dL Procalcitonin (0.02-0.09) ng/mL Assessment and Plan (1) Chronic wound Current Visit: Yes Status: Acute Code(s): T14.8XXA - OTHER INJURY OF UNSPECIFIED BODY REGION, INITIAL ENCOUNTER SNOMED Code(s): 75029901111065 (2) History of atrial fibrillation Current Visit: Yes Status: Acute Code(s): Z86.79 - PERSONAL HISTORY OF OTHER DISEASES OF THE CIRCULATORY SYSTEM SNOMED Code(s): 796879936 (3) Hyperlipidemia Current Visit: Yes Status: Acute Code(s): E78.5 - HYPERLIPIDEMIA, UNSPECIFIED SNOMED Code(s): 62082718 (4) Hypotension Current Visit: Yes Status: Acute Code(s): I95.9 - HYPOTENSION, UNSPECIFIED SNOMED Code(s): 88719171 (5) Type 2 diabetes mellitus with other skin ulcer Current Visit: Yes Status: Acute Code(s): E11.622 - TYPE 2 DIABETES MELLITUS WITH OTHER SKIN ULCER; L98.499 - NON-PRESSURE CHRONIC ULCER OF SKIN OF SITES W UNSP SEVERITY SNOMED Code(s): 924670501 Plan: Blood sugar management is nominal. Vital signs are now stabilizing. Hopefully we can transfer out of ICU in the next 24 hours. Check CBC and CMP in a.m.
--- NOTE | 2022-09-11 08:48 | P.PN ---
Subjective Progress Note Date: 09/11/22 I am seeing this patient in new consultation today 09/10/2022 in the intensive care unit for suspected sepsis. Patient is a 76-year-old female with past medical history significant for diabetes mellitus type 2, chronic foot wounds, chronic kidney disease, hypertension, hyperlipidemia, coronary artery disease, prior RI, atrial fibrillation, ventricular dysrhythmias, cardiomyopathy, CVA/TIA, prior DVT, prior ventilator dependence, left hip fracture status post ORIF. Patient reportedly resides at [facility] after her recent left hip fracture and surgery. Patient has several superficial pressure injuries on her back. She also has a left heel wound that is being treated at the wound care clinic. Patient was reportedly being treated for an infection of her left foot with an 18 week course of antibiotics through a right upper extremity PICC line. The left heel wound looks to be healing well, with mostly red granulation tissue. Patient presented to [facility] yesterday with complaints of a generalized rash and low blood pressure from her F. At the outside facility, the patient did have an initial workup including an x-ray of her left foot which showed findings concerning for osteomyelitis involving the lateral cuneiform. There was associated soft tissue swelling. There is also a questionable non- displaced fracture at the base of the fifth metatarsal with uncertain ch ronicity, and there was a prosthetic disc in the first MTP joint in anatomic alignment. The patient was started on a combination of cefepime and vancomycin. Cultures were reportedly drawn at outside facility. There was also concern for right upper extremity cellulitis and swelling at outside facility. A right upper extremity duplex ultrasound showed no evidence of DVT. The patient was transferred to [facility] last night. On my evaluation, there is no obvious cellulitis of the right upper extremity. Chest x-ray at outside facility showed no acute cardiopulmonary process. Patient is currently resting in bed, on room air, in no acute distress. Norepinephrine is currently infusing at a low dose of 0.03 mcg/kg/m. No IV maintenance fluids are currently infusing. CBC on arrival to our facility shows a WBC count of 6.8, hemoglobin 8.4, hematocrit 25.9, platelets 315. Most recent BMP shows a sodium 131, potassium 3.9, chloride 101, serum CO2 23, BUN 70, creatinine 1.67, glucose 140. Patient continues to be covered on vancomycin and cefepime. She is afebrile. Patient will be monitored in the intensive care unit. Is evaluation of 09/11/2022, the patient is, comfortable. She is normotensive and she is on no pressors for now and norepinephrine has been discontinued. The patient is also on no maintenance IV fluids. Normotensive with adequate urine output. She is still having the rash no neck chest back abdomen and lower extremities bilaterally. Slightly improved compared to yesterday. No blistering. No vesicle formation. Itching has subsided significantly and the patient remains on IV Solu-Medrol. The patient is currently off cefepime. The pro-calcitonin level was obtained yesterday and the level is at 0.17. Rest of the labs are still pending for now. No fluid balance over the past 24 hours has been +1.1 L. Tolerating diet. No nausea or emesis. No altered mentation. IV opted to continue the vancomycin. Objective - Vital Signs Vital signs: Vital Signs Temp 97.6 F 09/11/22 04:00 Pulse 49 L 09/11/22 04:00 Resp 13 09/11/22 04:00 BP 108/66 09/11/22 04:00 Pulse Ox 95 09/11/22 04:00 FiO2 Intake & Output 09/10/22 09/11/22 09/11/22 18:59 06:59 18:59 Intake Total 907.357 675 Output Total 250 800 Balance 657.357 -125 Intake: IV 860 675 Sodium Chloride 0.9% 1, 860 675 000 ml @ 75 mls/hr IV . [id number] HARIKA Rx#:[id number] Intake, IV Titration 47.357 Amount Norepinephrine 4 mg In 47.357 Sodium Chloride 0.9% 250 ml @ 0.03 MCG/KG/MIN 10. 421 mls/hr IV .Q24H [facility]IKA Rx#:[id number] Output: Urine 250 800 Other: Voiding Method External Catheter External Catheter # Voids 1 3 # Bowel Movements 1 - Exam GENERAL EXAM: Alert, 76-year-old white morbidly obese female, comfortable in no apparent distress. HEAD: Normocephalic and atraumatic EYES: Normal reaction of pupils, equal size. NOSE: Clear with pink turbinates. THROAT: No erythema or exudates. NECK: No masses, no JVD. CHEST: No chest wall deformity. LUNGS: Equal air entry with no crackles, wheeze, rhonchi or dullness. On room air. No conversational dyspnea or accessory muscle use.. CVS: S1 and S2 normal with no audible murmur, regular rhythm. No extra heart sounds ABDOMEN: No hepatosplenomegaly, active bowel sounds, no guarding or rigidity. SPINE: No scoliosis or deformity SKIN: Generalized rash of the upper extremities and torso. Multiple superficial pressure injuries and abrasions to her back. There is a left heel wound with red granulation tissue. CENTRAL NERVOUS SYSTEM: No focal deficits, tone is normal in all 4 extremities. EXTREMITIES: There is 2+ pitting lower extremity edema. Left foot drop. There is a right upper extremity PICC line. No clubbing, or cyanosis. Peripheral pulses are intact. - Labs CBC & Chem 7: 09/10/22 05:15 09/10/22 05:15 Labs: Abnormal Lab Results - Last 24 Hours (Table) 09/10/22 09/10/22 09/10/22 Range/Units 05:15 11:31 16:56 POC Glucose (mg/dL) 268 H 221 H (70-110) mg/dL Procalcitonin 0.17 H (0.02-0.09) ng/mL 09/10/22 09/11/22 Range/Units 19:40 06:29 POC Glucose (mg/dL) 261 H 193 H (70-110) mg/dL Procalcitonin (0.02-0.09) ng/mL Assessment and Plan Assessment: Suspected hypotension and sepsis, currently on dynamic is stable and the patient is off pressors. She is maintaining her own blood pressure and she is in normal sinus rhythm. Cultures are pending. Pro-calcitonin level is at 0.17 Diffuse erythematous rash, likely cefepime induced. Vancomycin-induced "red man" syndrome is felt to be less likely. Itching has improved. She remains on IV Solu-Medrol. Chronic left heel lower extremity wound, without signs of infection. There were concerns of osteomyelitis of the lateral cuneiform on left foot x-ray performed at outside facility. Patient normally follows with the wound care clinic. Diabetes mellitus type 2, insulin-dependent Anemia of chronic disease Chronic kidney disease stage III Essential hypertension Hyperlipidemia Coronary artery disease, with prior RI History of cardiomyopathy, most recent echocardiogram from December, shows an improvement in left ventricular ejection fraction to 50-55%. History of paroxysmal atrial fibrillation, anticoagulated on Eliquis, currently in normal sinus rhythm History of remote CVA History of DVT History of prior ventilator dependent respiratory failure History of left hip fracture status post ORIF Plan: Patient is currently off pressors Continue steroids May need to switch to vancomycin to an alternative antibiotic such as daptomycin. We'll discuss this with infectious disease. Hemodynamically stable Obtain a follow-up chest x-ray in blood work is pending from today Alert and awake and hemodynamically stable and following commands Picc line in place in the right upper extremity We'll continue to follow, possibly overtreated a medical surgical floor at the later stage. She is currently on room air oxygen.
--- NOTE | 2022-09-11 09:24 | XR ---
EXAMINATION TYPE: XR foot complete LT DATE OF EXAM: 09/11/2022 COMPARISON: NONE HISTORY: Wound on the foot TECHNIQUE: Three views are submitted. FINDINGS: Extensive postsurgical change involving the first digit with hallux valgus deformity. Vascular calcif ications and severe diffuse osteopenia noted. Diffuse soft tissue edema. There is mottling of the vis ualized osseous structures. Suggestive of severe osteopenic disease. There is mixed sclerosis involvi ng the dome of the talus. On the frontal view there appears to be a lucency along the lateral cuneifo rm bone. IMPRESSION: 1. Diffuse soft tissue edema correlate for cellulitis. There appears to be severe diffuse osteopenia with a more localized area of lucency involving the most lateral cuneiform bone. Recommend triple pha se bone scan to assess for osteomyelitis. 2. Mixed lucency and sclerosis near the dome of the talus can be associated with osteochondritis.
[2022-09-11] MEDS: APIXABAN 5 MG TAB PO SCH ×2 (09:33→21:09)
[2022-09-11] MEDS: AMIODARONE 100 MG TAB PO SCH (09:33)
[2022-09-11] MEDS: ESCITALOPRAM 10 MG TAB PO SCH (09:34)
[2022-09-11] MEDS: PANTOPRAZOLE 40 MG/10 ML VIAL IV SCH (09:34)
[2022-09-11] MEDS: DAPAGLIFLOZIN PROPANEDIOL 10 MG TABLET PO SCH (09:34)
[2022-09-11] MEDS: SODIUM BICARBONATE TAB 650 MG TAB PO SCH ×2 (09:34→21:09)
[2022-09-11] MEDS: methylPREDNISolone SOD SUCCI 40 MG/ML 1 ML VIAL IV SCH ×2 (09:35→21:08)
[2022-09-11] MEDS: COLLAGENASE 250 UNIT/GM OINTMENT 30 GM TUBE TOPICAL SCH (09:36)
[2022-09-11] MEDS: NYSTATIN 100,000 UNIT/GM POWD 15 GM TOPICAL SCH ×2 (09:36→21:09)
[2022-09-11 11:20] LABS: Glucose,Whole Blood 314 mg/dL (70-110)
[2022-09-11] MEDS: SODIUM CHLORIDE 0.9% 1,000 ML IV SCH (11:38)
[2022-09-11 11:53] LABS: Anisocytosis Slight; Basophils % (A) 0 %; Eosinophils % (A) 0 %; HCT 27.6 % (34.0-46.0); HGB 8.6 gm/dL (11.4-16.0); Hypochromasia Slight; Lymphocytes # (A) 0.4 k/uL (1.0-4.8); Lymphocytes % (A) 4 %; MCH 27.5 pg (25.0-35.0); MCHC 31.1 g/dL (31.0-37.0); MCV 88.2 fL (80.0-100.0); Mean Platelet Volume 8.1; Monocytes # (A) 0.3 k/uL (0-1.0); Monocytes % (A) 3 %; Neutrophils # (A) 8.7 k/uL (1.3-7.7); Neutrophils % (A) 91 %; Platelet Count 342 k/uL (150-450); RBC 3.13 m/uL (3.80-5.40); RDW 18.5 % (11.5-15.5); WBC 9.5 k/uL (3.8-10.6)
[2022-09-11 11:55] LABS: African American GFR (CKD) 40 (>60 ml/min/1.73 sqM); Anion Gap 10 mmol/L; Blood Urea Nitrogen 65 mg/dL (7-17); Calcium 7.5 mg/dL (8.4-10.2); Carbon Dioxide 20 mmol/L (22-30); Chloride 106 mmol/L (98-107); Glucose 276 mg/dL (74-99); Magnesium 1.8 mg/dL (1.6-2.3); Non-African American GFR(CKD) 35 (>60 ml/min/1.73 sqM); Sodium 136 mmol/L (137-145)
[2022-09-11 12:56] VITALS: BMI 39.4
--- NOTE | 2022-09-11 15:28 | P.PN ---
Subjective Progress Note Date: 09/11/22 Principal diagnosis: Left hip wound consult for Osteomyelitis and rash Patient is a 76 year female who was admitted to [facility] and has been diagnosed with a left heel Osteomyelitis culture positive for Proteus Providencia and MRSA, the patient received vancomycin and meropenem at [facility] from 07/23/2022 until 09/03/2022 , Patient did develop a rash while on this and by therapy on 08/15/2022 that has been treated with the Benadryl and prednisone those were discontinued after the patient completed her antibiotic therapy and subsequently which have worsening of the rash and the patient was also noticed to be hypotensive with electrolyte abnormality for the patient was sent to [facility] On today's evaluation that is 09/11/2022, the patient is afebrile the patient is more awake and alert today patient is hemodynamically stable and off the pressor support per the nursing staff, patient denies having any chest pain or shortness of breath or cough no abdominal pain is still complaining of itching and rash to the upper torso area Objective - Vital Signs Vital signs: Vital Signs Temp 97.7 F 09/11/22 11:41 Pulse 60 09/11/22 11:41 Resp 16 09/11/22 11:41 BP 119/58 09/11/22 11:41 Pulse Ox 93 L 09/11/22 11:41 FiO2 21 09/11/22 08:40 Intake & Output 09/10/22 09/11/22 09/11/22 18:59 06:59 18:59 Intake Total 907.357 675 600 Output Total 250 800 350 Balance 657.357 -125 250 Weight 97.7 kg Intake: IV 860 675 600 Sodium Chloride 0.9% 1, 860 675 600 000 ml @ 75 mls/hr IV . [id number] [facility] Rx#:[id number] Intake, IV Titration 47.357 Amount Norepinephrine 4 mg In 47.357 Sodium Chloride 0.9% 250 ml @ 0.03 MCG/KG/MIN 10. 421 mls/hr IV .Q24H [facility]IK[facility] Rx#:[id number] Output: Urine 250 800 350 Other: Voiding Method External Catheter External Catheter # Voids 1 3 # Bowel Movements 1 - Exam GENERAL DESCRIPTION: An elderly female lying in bed in no distress RESPIRATORY SYSTEM: Unlabored breathing , decreased breath sounds at bases HEART: S1 S2 regular rate and rhythm , ABDOMEN: Soft , no tenderness EXTREMITIES: Left heel wound is currently dressed no drainage on dressing SKIN : Generalized micropapular rash especially to the upper torso - Labs CBC & Chem 7: 09/11/22 11:00 09/11/22 11:00 Labs: Abnormal Lab Results - Last 24 Hours (Table) 09/10/22 09/10/22 09/10/22 Range/Units 05:15 16:56 19:40 RBC (3.80-5.40) m/uL Hgb (11.4-16.0) gm/dL Hct (34.0-46.0) % RDW (11.5-15.5) % Neutrophils # (1.3-7.7) k/uL Lymphocytes # (1.0-4.8) k/uL ESR (0-20) mm/hr Sodium (137-145) mmol/L Carbon Dioxide (22-30) mmol/L BUN (7-17) mg/dL Creatinine (0.52-1.04) mg/dL Glucose (74-99) mg/dL POC Glucose (mg/dL) 221 H 261 H (70-110) mg/dL Calcium (8.4-10.2) mg/dL C-Reactive Protein (<1.0) mg/dL Procalcitonin 0.17 H (0.02-0.09) ng/mL 09/11/22 09/11/22 09/11/22 Range/Units 06:29 11:00 11:00 RBC 3.13 L (3.80-5.40) m/uL Hgb 8.6 L (11.4-16.0) gm/dL Hct 27.6 L (34.0-46.0) % RDW 18.5 H (11.5-15.5) % Neutrophils # 8.7 H (1.3-7.7) k/uL Lymphocytes # 0.4 L (1.0-4.8) k/uL ESR (0-20) mm/hr Sodium 136 L (137-145) mmol/L Carbon Dioxide 20 L (22-30) mmol/L BUN 65 H (7-17) mg/dL Creatinine 1.44 H (0.52-1.04) mg/dL Glucose 276 H (74-99) mg/dL POC Glucose (mg/dL) 193 H (70-110) mg/dL Calcium 7.5 L (8.4-10.2) mg/dL C-Reactive Protein (<1.0) mg/dL Procalcitonin (0.02-0.09) ng/mL 09/11/22 09/11/22 09/11/22 Range/Units 11:00 11:00 11:19 RBC (3.80-5.40) m/uL Hgb (11.4-16.0) gm/dL Hct (34.0-46.0) % RDW (11.5-15.5) % Neutrophils # (1.3-7.7) k/uL Lymphocytes # (1.0-4.8) k/uL ESR 28 H (0-20) mm/hr Sodium (137-145) mmol/L Carbon Dioxide (22-30) mmol/L BUN (7-17) mg/dL Creatinine (0.52-1.04) mg/dL Glucose (74-99) mg/dL POC Glucose (mg/dL) 314 H (70-110) mg/dL Calcium (8.4-10.2) mg/dL C-Reactive Protein 12.8 H (<1.0) mg/dL Procalcitonin (0.02-0.09) ng/mL Microbiology - Last 24 Hours (Table) 09/10/22 01:12 Blood Culture - Preliminary Blood 09/10/22 01:22 Blood Culture - Preliminary Blood Assessment and Plan (1) Rash Current Visit: Yes Status: Acute Code(s): R21 - RASH AND OTHER NONSPECIFIC SKIN ERUPTION SNOMED Code(s): 996589508 (2) Pressure ulcer of left heel, stage 4 Current Visit: Yes Status: Acute Code(s): L89.624 - PRESSURE ULCER OF LEFT HEEL, STAGE 4 SNOMED Code(s): 45519375349498 Plan: 1patient with a chronic nonhealing wound to the left heel area 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 culture were positive for Providencia, Proteus and MRSA for the patient has completed her antibiotic from 07/23/2022 until 09/03/2022 now presented to hospital with hypotension rash-- it is more likely drug related, patient left lower extremity wound seemed to be healing well however the x-rays were reported to have some abnormality 2- we will wait for the inflammation markers to be finalized and check a bone scan 3- discontinue vancomycin and start the patient on daptomycin while waiting for the workup to be completed 4-continue local care per wound care team Time spent more than 30 minutes as well as information has been obtained after calling the [facility] Time with Patient: Greater than 30
[2022-09-11] MEDS: BUMETANIDE 1 MG TAB PO SCH (15:30)
[2022-09-11 16:25] LABS: Glucose,Whole Blood 394 mg/dL (70-110)
[2022-09-11 20:48] LABS: Glucose,Whole Blood 390 mg/dL (70-110)
[2022-09-12] MEDS: SODIUM CHLORIDE 0.9% 1,000 ML IV SCH ×2 (01:11→09:39)
[2022-09-12 06:59] LABS: Anisocytosis Slight; Basophils % (A) 0 %; Eosinophils % (A) 0 %; HCT 26.8 % (34.0-46.0); HGB 8.3 gm/dL (11.4-16.0); Hypochromasia Moderate; Lymphocytes # (A) 0.6 k/uL (1.0-4.8); Lymphocytes % (A) 7 %; MCH 27.8 pg (25.0-35.0); MCHC 30.9 g/dL (31.0-37.0); Mean Platelet Volume 8.2; Monocytes # (A) 0.3 k/uL (0-1.0); Monocytes % (A) 3 %; Neutrophils # (A) 7.1 k/uL (1.3-7.7); Neutrophils % (A) 89 %; Platelet Count 335 k/uL (150-450); RBC 2.97 m/uL (3.80-5.40); RDW 18.7 % (11.5-15.5)
[2022-09-12 07:32] LABS: African American GFR (CKD) 46 (>60 ml/min/1.73 sqM); Anion Gap 8 mmol/L; Blood Urea Nitrogen 65 mg/dL (7-17); Carbon Dioxide 21 mmol/L (22-30); Chloride 107 mmol/L (98-107); Glucose 226 mg/dL (74-99); Non-African American GFR(CKD) 40 (>60 ml/min/1.73 sqM); Potassium 4.1 mmol/L (3.5-5.1); Sodium 136 mmol/L (137-145)
[2022-09-12 08:10] LABS: Glucose,Whole Blood 251 mg/dL (70-110)
[2022-09-12] MEDS: IPRATROPIUM-ALBUTEROL 3 ML NEB INHALATION PRN ×4 (08:29→22:03)
--- NOTE | 2022-09-12 08:58 | P.PN ---
Subjective Progress Note Date: 09/12/22 This is a 76-year-old female who presented to the emergency department as a transfer from [facility] with concern for cellulitis of her right arm. Patient does have a history of chronic wounds of lower extremities. She resides at [facility]. She has a history of multiple ALLERGIES. Was re cently on IV antibiotics serial right upper extremity PICC line for infection in her left foot and developed a rash who presented to the [place] ER. Patient is unable to recall what antibiotic she was on. She is on vancomycin and cefepime currently. She has been hypotensive since admission. Further history as noted below 09/12/22 Patient is seen on medical floor today. Rash has improved. She did have a bone scan this morning. Blood sugars have been on the higher side, will adjust Lev amos dose. Blood pressures have stabilized. Objective - Vital Signs Vital signs: Vital Signs Temp 98.2 F 09/12/22 08:10 Pulse 68 09/12/22 08:43 Resp 17 09/12/22 08:10 BP 144/73 09/12/22 08:10 Pulse Ox 96 09/12/22 08:29 FiO2 21 09/11/22 08:40 Intake & Output 09/11/22 09/12/22 09/12/22 18:59 06:59 18:59 Intake Total 1650 300 Output Total 800 800 Balance 850 -500 Weight 97.7 kg Intake: IV 1200 Sodium Chloride 0.9% 1, 1200 000 ml @ 75 mls/hr IV . [id number] [facility] Rx#:[id number] Oral 450 300 Output: Urine 800 800 Other: Voiding Method External Catheter External Catheter # Voids 1 - Constitutional General appearance: Present: cooperative, no acute distress - EENT Eyes: Present: PERRLA - Neck Neck: Present: normal ROM. Absent: lymphadenopathy, rigidity - Respiratory Respiratory: bilateral: diminished - Cardiovascular Rhythm: regular Heart sounds: normal: S1, S2 - Gastrointestinal General gastrointestinal: Present: soft. Absent: tenderness - Musculoskeletal Musculoskeletal: Present: generalized weakness - Psychiatric Psychiatric: Present: A&O x's 3, appropriate affect, intact judgment & insight - Labs CBC & Chem 7: 09/12/22 05:58 09/12/22 05:58 Labs: Abnormal Lab Results - Last 24 Hours (Table) 09/11/22 09/11/22 09/11/22 Range/Units 11:00 11:00 11:00 RBC 3.13 L (3.80-5.40) m/uL Hgb 8.6 L (11.4-16.0) gm/dL Hct 27.6 L (34.0-46.0) % MCHC (31.0-37.0) g/dL RDW 18.5 H (11.5-15.5) % Neutrophils # 8.7 H (1.3-7.7) k/uL Lymphocytes # 0.4 L (1.0-4.8) k/uL ESR 28 H (0-20) mm/hr Sodium 136 L (137-145) mmol/L Carbon Dioxide 20 L (22-30) mmol/L BUN 65 H (7-17) mg/dL Creatinine 1.44 H (0.52-1.04) mg/dL Glucose 276 H (74-99) mg/dL POC Glucose (mg/dL) (70-110) mg/dL Calcium 7.5 L (8.4-10.2) mg/dL C-Reactive Protein (<1.0) mg/dL 09/11/22 09/11/22 09/11/22 Range/Units 11:00 11:19 16:24 RBC (3.80-5.40) m/uL Hgb (11.4-16.0) gm/dL Hct (34.0-46.0) % MCHC (31.0-37.0) g/dL RDW (11.5-15.5) % Neutrophils # (1.3-7.7) k/uL Lymphocytes # (1.0-4.8) k/uL ESR (0-20) mm/hr Sodium (137-145) mmol/L Carbon Dioxide (22-30) mmol/L BUN (7-17) mg/dL Creatinine (0.52-1.04) mg/dL Glucose (74-99) mg/dL POC Glucose (mg/dL) 314 H 394 H (70-110) mg/dL Calcium (8.4-10.2) mg/dL C-Reactive Protein 12.8 H (<1.0) mg/dL 09/11/22 09/12/22 09/12/22 Range/Units 20:47 05:58 05:58 RBC 2.97 L (3.80-5.40) m/uL Hgb 8.3 L (11.4-16.0) gm/dL Hct 26.8 L (34.0-46.0) % MCHC 30.9 L (31.0-37.0) g/dL RDW 18.7 H (11.5-15.5) % Neutrophils # (1.3-7.7) k/uL Lymphocytes # 0.6 L (1.0-4.8) k/uL ESR (0-20) mm/hr Sodium 136 L (137-145) mmol/L Carbon Dioxide 21 L (22-30) mmol/L BUN 65 H (7-17) mg/dL Creatinine 1.29 H (0.52-1.04) mg/dL Glucose 226 H (74-99) mg/dL POC Glucose (mg/dL) 390 H (70-110) mg/dL Calcium 8.0 L (8.4-10.2) mg/dL C-Reactive Protein (<1.0) mg/dL 09/12/22 Range/Units 08:08 RBC (3.80-5.40) m/uL Hgb (11.4-16.0) gm/dL Hct (34.0-46.0) % MCHC (31.0-37.0) g/dL RDW (11.5-15.5) % Neutrophils # (1.3-7.7) k/uL Lymphocytes # (1.0-4.8) k/uL ESR (0-20) mm/hr Sodium (137-145) mmol/L Carbon Dioxide (22-30) mmol/L BUN (7-17) mg/dL Creatinine (0.52-1.04) mg/dL Glucose (74-99) mg/dL POC Glucose (mg/dL) 251 H (70-110) mg/dL Calcium (8.4-10.2) mg/dL C-Reactive Protein (<1.0) mg/dL Microbiology - Last 24 Hours (Table) 09/10/22 01:12 Blood Culture - Preliminary Blood 09/10/22 01:22 Blood Culture - Preliminary Blood Assessment and Plan (1) Hypotension Current Visit: Yes Status: Acute Code(s): I95.9 - HYPOTENSION, UNSPECIFIED SNOMED Code(s): 16686720 (2) CKD (chronic kidney disease) Current Visit: No Status: Acute Code(s): N18.9 - CHRONIC KIDNEY DISEASE, UNSPECIFIED SNOMED Code(s): 106419314 (3) Diabetes Current Visit: No Status: Acute Code(s): E11.9 - TYPE 2 DIABETES MELLITUS WITHOUT COMPLICATIONS SNOMED Code(s): 88921378 (4) Chronic wound Current Visit: Yes Status: Acute Code(s): T14.8XXA - OTHER INJURY OF UNSPECIFIED BODY REGION, INITIAL ENCOUNTER SNOMED Code(s): 35665078608040 (5) Hyperlipidemia Current Visit: Yes Status: Acute Code(s): E78.5 - HYPERLIPIDEMIA, UNSPECIFIED SNOMED Code(s): 53721251 (6) History of atrial fibrillation Current Visit: Yes Status: Acute Code(s): Z86.79 - PERSONAL HISTORY OF OTHER DISEASES OF THE CIRCULATORY SYSTEM SNOMED Code(s): 356284444 (7) Rash Current Visit: Yes Status: Acute Code(s): R21 - RASH AND OTHER NONSPECIFIC SKIN ERUPTION SNOMED Code(s): 070534972 Plan: Increase insulin doses to 10 units of Levemir in the morning and 15 units of Levemir in the evening. Await results of bone scan Possible discharge tomorrow. Patient seen and evaluated by nurse practitioner, physician in agreement with plan
[2022-09-12] MEDS: ESCITALOPRAM 10 MG TAB PO SCH (09:37)
[2022-09-12] MEDS: DAPAGLIFLOZIN PROPANEDIOL 10 MG TABLET PO SCH (09:37)
[2022-09-12] MEDS: APIXABAN 5 MG TAB PO SCH ×2 (09:37→20:49)
[2022-09-12] MEDS: PANTOPRAZOLE 40 MG/10 ML VIAL IV SCH (09:37)
[2022-09-12] MEDS: methylPREDNISolone SOD SUCCI 40 MG/ML 1 ML VIAL IV SCH ×2 (09:37→20:50)
[2022-09-12] MEDS: AMIODARONE 100 MG TAB PO SCH (09:37)
[2022-09-12] MEDS: SODIUM BICARBONATE TAB 650 MG TAB PO SCH ×2 (09:37→20:49)
[2022-09-12] MEDS: INSULIN ASPART (NovoLOG) 100 UNIT/ML VIAL SQ SCH ×4 (09:38→20:49)
[2022-09-12] MEDS: MIDODRINE 5 MG TAB PO SCH ×2 (09:40→17:01)
[2022-09-12] MEDS: COLLAGENASE 250 UNIT/GM OINTMENT 30 GM TUBE TOPICAL SCH (09:43)
[2022-09-12] MEDS: NYSTATIN 100,000 UNIT/GM POWD 15 GM TOPICAL SCH ×2 (09:43→21:52)
[2022-09-12] MEDS: INSULIN DETEMIR (LEVEMIR) 100 UNIT/ML SYR SQ SCH ×2 (10:08→20:49)
[2022-09-12 11:00] LABS: Glucose,Whole Blood 315 mg/dL (70-110)
--- NOTE | 2022-09-12 13:47 | NM ---
EXAMINATION TYPE: NM bone 3 phase DATE OF EXAM: 09/12/2022 COMPARISON: X-ray 09/11/2022 CLINICAL INDICATION: Female, 76 years old with history of Left heel wound and abnormal x-ray; Triple phase bone scintigraphy was performed following the injection of 23.1 mCi Tc 99m MDP. Immedia te images and report hours post injection images acquired. FINDINGS: There is increased flow to the left foot. Findings increased soft tissue uptake adjacent to the dista l margin of the second and third digits. There does appear to be increased uptake along the inferior margin of the calcaneus and moderate upta ke along the lateral margin of the metatarsals likely in the region of the x-ray abnormality of the m ost lateral cuneiform. IMPRESSION: Cellulitis with findings suspicious for osteomyelitis of the calcaneus and lateral cuneiform bone.
--- NOTE | 2022-09-12 13:48 | P.PN ---
Subjective Progress Note Date: 09/12/22 Principal diagnosis: Left hip wound consult for Osteomyelitis and rash Patient is a 76 year female who was admitted to [facility] and has been diagnosed with a left heel Osteomyelitis culture positive for Proteus Providencia and MRSA, the patient received vancomycin and meropenem at [facility] from 07/23/2022 until 09/03/2022 , Patient did develop a rash while on this and by therapy on 08/15/2022 that has been treated with the Benadryl and prednisone those were discontinued after the patient completed her antibiotic therapy and subsequently which have worsening of the rash and the patient was also noticed to be hypotensive with electrolyte abnormality for the patient was sent to [facility] On today's evaluation that is 09/12/2022, the patient remains to be afebrile the patient is more awake and alert today patient is hemodynamically stable and has been moved out of the ICU, patient denies having any chest pain or shortness of breath or cough no abdominal pain , the patient symptom of itching and rash to the upper torso area has slightly decreased intensity Objective - Vital Signs Vital signs: Vital Signs Temp 98.2 F 09/12/22 08:10 Pulse 68 09/12/22 11:43 Resp 17 09/12/22 08:10 BP 144/73 09/12/22 08:10 Pulse Ox 96 09/12/22 08:29 FiO2 21 09/11/22 08:40 Intake & Output 09/11/22 09/12/22 09/12/22 18:59 06:59 18:59 Intake Total 1650 300 Output Total 800 800 Balance 850 -500 Weight 97.7 kg Intake: IV 1200 Sodium Chloride 0.9% 1, 1200 000 ml @ 75 mls/hr IV . [id number] [facility] Rx#:[id number] Oral 450 300 Output: Urine 800 800 Other: Voiding Method External Catheter External Catheter # Voids 1 - Exam GENERAL DESCRIPTION: An elderly female lying in bed in no distress RESPIRATORY SYSTEM: Unlabored breathing , decreased breath sounds at bases HEART: S1 S2 regular rate and rhythm , ABDOMEN: Soft , no tenderness EXTREMITIES: Left heel wound is currently dressed no drainage on dressing SKIN : Generalized micropapular rash especially to the upper torso - Labs CBC & Chem 7: 09/12/22 05:58 09/12/22 05:58 Labs: Abnormal Lab Results - Last 24 Hours (Table) 09/11/22 09/11/22 09/11/22 Range/Units 11:00 11:00 16:24 RBC (3.80-5.40) m/uL Hgb (11.4-16.0) gm/dL Hct (34.0-46.0) % MCHC (31.0-37.0) g/dL RDW (11.5-15.5) % Lymphocytes # (1.0-4.8) k/uL ESR 28 H (0-20) mm/hr Sodium (137-145) mmol/L Carbon Dioxide (22-30) mmol/L BUN (7-17) mg/dL Creatinine (0.52-1.04) mg/dL Glucose (74-99) mg/dL POC Glucose (mg/dL) 394 H (70-110) mg/dL Calcium (8.4-10.2) mg/dL C-Reactive Protein 12.8 H (<1.0) mg/dL 09/11/22 09/12/22 09/12/22 Range/Units 20:47 05:58 05:58 RBC 2.97 L (3.80-5.40) m/uL Hgb 8.3 L (11.4-16.0) gm/dL Hct 26.8 L (34.0-46.0) % MCHC 30.9 L (31.0-37.0) g/dL RDW 18.7 H (11.5-15.5) % Lymphocytes # 0.6 L (1.0-4.8) k/uL ESR (0-20) mm/hr Sodium 136 L (137-145) mmol/L Carbon Dioxide 21 L (22-30) mmol/L BUN 65 H (7-17) mg/dL Creatinine 1.29 H (0.52-1.04) mg/dL Glucose 226 H (74-99) mg/dL POC Glucose (mg/dL) 390 H (70-110) mg/dL Calcium 8.0 L (8.4-10.2) mg/dL C-Reactive Protein (<1.0) mg/dL 09/12/22 09/12/22 Range/Units 08:08 10:59 RBC (3.80-5.40) m/uL Hgb (11.4-16.0) gm/dL Hct (34.0-46.0) % MCHC (31.0-37.0) g/dL RDW (11.5-15.5) % Lymphocytes # (1.0-4.8) k/uL ESR (0-20) mm/hr Sodium (137-145) mmol/L Carbon Dioxide (22-30) mmol/L BUN (7-17) mg/dL Creatinine (0.52-1.04) mg/dL Glucose (74-99) mg/dL POC Glucose (mg/dL) 251 H 315 H (70-110) mg/dL Calcium (8.4-10.2) mg/dL C-Reactive Protein (<1.0) mg/dL Microbiology - Last 24 Hours (Table) 09/10/22 01:12 Blood Culture - Preliminary Blood 09/10/22 01:22 Blood Culture - Preliminary Blood Assessment and Plan (1) Rash Current Visit: Yes Status: Acute Code(s): R21 - RASH AND OTHER NONSPECIFIC SKIN ERUPTION SNOMED Code(s): 514654078 (2) Pressure ulcer of left heel, stage 4 Current Visit: Yes Status: Acute Code(s): L89.624 - PRESSURE ULCER OF LEFT HEEL, STAGE 4 SNOMED Code(s): 38293320404838 Plan: 1patient with a chronic nonhealing wound to the left heel area 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 culture were positive for Providencia, Proteus and MRSA for the patient has completed her antibiotic from 07/23/2022 until 09/03/2022 now presented to hospital with hypotension rash-- it is more likely drug related, patient left lower extremity wound seemed to be healing well however the x-rays were reported to have some abnormality 2- we will cut evaluated for sed rate and bone scan is in progress 3- patient to continue daptomycin while waiting for the workup to be completed Time with Patient: Less than 30
[2022-09-12] MEDS: BUMETANIDE 1 MG TAB PO SCH (14:06)
--- NOTE | 2022-09-12 16:11 | P.PN ---
Subjective Progress Note Date: 09/12/22 I am seeing this patient in new consultation today 09/10/2022 in the intensive care unit for suspected sepsis. Patient is a 76-year-old female with past medical history significant for diabetes mellitus type 2, chronic foot wounds, chronic kidney disease, hypertension, hyperlipidemia, coronary artery disease, prior OH, atrial fibrillation, ventricular dysrhythmias, cardiomyopathy, CVA/TIA, prior DVT, prior ventilator dependence, left hip fracture status post ORIF. Patient reportedly resides at [facility] after her recent left hip fracture and surgery. Patient has several superficial pressure injuries on her back. She also has a left heel wound that is being treated at the wound care clinic. Patient was reportedly being treated for an infection of her left foot with an 18 week course of antibiotics through a right upper extremity PICC line. The left heel wound looks to be healing well, with mostly red granulation tissue. Patient presented to [facility] yesterday with complaints of a generalized rash and low blood pressure from her F. At the outside facility, the patient did have an initial workup including an x-ray of her left foot which showed findings concerning for osteomyelitis involving the lateral cuneiform. There was associated soft tissue swelling. There is also a questionable non- displaced fracture at the base of the fifth metatarsal with uncertain ch ronicity, and there was a prosthetic disc in the first MTP joint in anatomic alignment. The patient was started on a combination of cefepime and vancomycin. Cultures were reportedly drawn at outside facility. There was also concern for right upper extremity cellulitis and swelling at outside facility. A right upper extremity duplex ultrasound showed no evidence of DVT. The patient was transferred to [facility] last night. On my evaluation, there is no obvious cellulitis of the right upper extremity. Chest x-ray at outside facility showed no acute cardiopulmonary process. Patient is currently resting in bed, on room air, in no acute distress. Norepinephrine is currently infusing at a low dose of 0.03 mcg/kg/m. No IV maintenance fluids are currently infusing. CBC on arrival to our facility shows a WBC count of 6.8, hemoglobin 8.4, hematocrit 25.9, platelets 315. Most recent BMP shows a sodium 131, potassium 3.9, chloride 101, serum CO2 23, BUN 70, creatinine 1.67, glucose 140. Patient continues to be covered on vancomycin and cefepime. She is afebrile. Patient will be monitored in the intensive care unit. Is evaluation of 09/11/2022, the patient is, comfortable. She is normotensive and she is on no pressors for now and norepinephrine has been discontinued. The patient is also on no maintenance IV fluids. Normotensive with adequate urine output. She is still having the rash no neck chest back abdomen and lower extremities bilaterally. Slightly improved compared to yesterday. No blistering. No vesicle formation. Itching has subsided significantly and the patient remains on IV Solu-Medrol. The patient is currently off cefepime. The pro-calcitonin level was obtained yesterday and the level is at 0.17. Rest of the labs are still pending for now. No fluid balance over the past 24 hours has been +1.1 L. Tolerating diet. No nausea or emesis. No altered mentation. IV opted to continue the vancomycin. On today's evaluation of 09/12/2022, the patient was seen on the medical floor. Rash is improving. The patient is also off vancomycin and the patient was started on daptomycin. Hemodynamically stable. No wheezing on that 5 with a hemoglobin of 10.3 and a platelet count of 198. The rest of the blood work and electrolytes are all within normal limits. She is afebrile. She is on room air oxygen with a pulse ox of 94-95%. Objective - Vital Signs Vital signs: Vital Signs Temp 98.2 F 09/12/22 08:10 Pulse 68 09/12/22 11:43 Resp 17 09/12/22 08:10 BP 144/73 09/12/22 08:10 Pulse Ox 96 09/12/22 08:29 FiO2 21 09/11/22 08:40 Intake & Output 09/11/22 09/12/22 09/12/22 18:59 06:59 18:59 Intake Total 1650 300 Output Total 800 800 Balance 850 -500 Weight 97.7 kg Intake: IV 1200 Sodium Chloride 0.9% 1, 1200 000 ml @ 75 mls/hr IV . [id number] [facility] Rx#:[id number] Oral 450 300 Output: Urine 800 800 Other: Voiding Method External Catheter External Catheter # Voids 1 - Exam GENERAL EXAM: Alert, 76-year-old white morbidly obese female, comfortable in no apparent distress. HEAD: Normocephalic and atraumatic EYES: Normal reaction of pupils, equal size. NOSE: Clear with pink turbinates. THROAT: No erythema or exudates. NECK: No masses, no JVD. CHEST: No chest wall deformity. LUNGS: Equal air entry with no crackles, wheeze, rhonchi or dullness. On room air. No conversational dyspnea or accessory muscle use.. CVS: S1 and S2 normal with no audible murmur, regular rhythm. No extra heart sounds ABDOMEN: No hepatosplenomegaly, active bowel sounds, no guarding or rigidity. SPINE: No scoliosis or deformity SKIN: Generalized rash of the upper extremities and torso. Multiple superficial pressure injuries and abrasions to her back. There is a left heel wound with red granulation tissue. CENTRAL NERVOUS SYSTEM: No focal deficits, tone is normal in all 4 extremities. EXTREMITIES: There is 2+ pitting lower extremity edema. Left foot drop. There is a right upper extremity PICC line. No clubbing, or cyanosis. Peripheral pulses are intact. - Labs CBC & Chem 7: 09/12/22 05:58 09/12/22 05:58 Labs: Abnormal Lab Results - Last 24 Hours (Table) 09/11/22 09/11/22 09/11/22 Range/Units 11:00 11:00 16:24 RBC (3.80-5.40) m/uL Hgb (11.4-16.0) gm/dL Hct (34.0-46.0) % MCHC (31.0-37.0) g/dL RDW (11.5-15.5) % Lymphocytes # (1.0-4.8) k/uL ESR 28 H (0-20) mm/hr Sodium (137-145) mmol/L Carbon Dioxide (22-30) mmol/L BUN (7-17) mg/dL Creatinine (0.52-1.04) mg/dL Glucose (74-99) mg/dL POC Glucose (mg/dL) 394 H (70-110) mg/dL Calcium (8.4-10.2) mg/dL C-Reactive Protein 12.8 H (<1.0) mg/dL 09/11/22 09/12/22 09/12/22 Range/Units 20:47 05:58 05:58 RBC 2.97 L (3.80-5.40) m/uL Hgb 8.3 L (11.4-16.0) gm/dL Hct 26.8 L (34.0-46.0) % MCHC 30.9 L (31.0-37.0) g/dL RDW 18.7 H (11.5-15.5) % Lymphocytes # 0.6 L (1.0-4.8) k/uL ESR (0-20) mm/hr Sodium 136 L (137-145) mmol/L Carbon Dioxide 21 L (22-30) mmol/L BUN 65 H (7-17) mg/dL Creatinine 1.29 H (0.52-1.04) mg/dL Glucose 226 H (74-99) mg/dL POC Glucose (mg/dL) 390 H (70-110) mg/dL Calcium 8.0 L (8.4-10.2) mg/dL C-Reactive Protein (<1.0) mg/dL 09/12/22 09/12/22 Range/Units 08:08 10:59 RBC (3.80-5.40) m/uL Hgb (11.4-16.0) gm/dL Hct (34.0-46.0) % MCHC (31.0-37.0) g/dL RDW (11.5-15.5) % Lymphocytes # (1.0-4.8) k/uL ESR (0-20) mm/hr Sodium (137-145) mmol/L Carbon Dioxide (22-30) mmol/L BUN (7-17) mg/dL Creatinine (0.52-1.04) mg/dL Glucose (74-99) mg/dL POC Glucose (mg/dL) 251 H 315 H (70-110) mg/dL Calcium (8.4-10.2) mg/dL C-Reactive Protein (<1.0) mg/dL Microbiology - Last 24 Hours (Table) 09/10/22 01:12 Blood Culture - Preliminary Blood 09/10/22 01:22 Blood Culture - Preliminary Blood Assessment and Plan Assessment: Suspected hypotension and sepsis, currently on dynamic is stable and the patient is off pressors. She is maintaining her own blood pressure and she is in normal sinus rhythm. Cultures are pending. Pro-calcitonin level is at 0.17 Diffuse erythematous rash, likely cefepime induced. Vancomycin-induced "red man" syndrome is felt to be less likely. Itching has improved. She remains on IV Solu-Medrol. Chronic left heel lower extremity wound, without signs of infection. There were concerns of osteomyelitis of the lateral cuneiform on left foot x-ray performed at outside facility. Patient normally follows with the wound care clinic. Diabetes mellitus type 2, insulin-dependent Anemia of chronic disease Chronic kidney disease stage III Essential hypertension Hyperlipidemia Coronary artery disease, with prior OH History of cardiomyopathy, most recent echocardiogram from December, shows an improvement in left ventricular ejection fraction to 50-55%. History of paroxysmal atrial fibrillation, anticoagulated on Eliquis, currently in normal sinus rhythm History of remote CVA History of DVT History of prior ventilator dependent respiratory failure History of left hip fracture status post ORIF Plan: X-ray of the left foot showed diffuse soft tissue edema and diffuse osteopenia and a nuclear bone scan showed findings suspicious for osteomyelitis of the calcaneus and the left cuneiform bone Patient is currently on a medical floor hemodynamically stable Patient is currently off cefepime and vancomycin and the patient is receiving daptomycin Continue steroids regarding the rash which is improved significantly Alert and awake and hemodynamically stable and following commands Picc line in place in the right upper extremity Recommend tapering this patient to prednisone burst taper as of tomorrow No active pulmonary or cardiac Issues and I will leave the rest of the management to medicine
[2022-09-12] MEDS: ALPRAZolam 0.5 MG TAB PO PRN (16:12)
[2022-09-12 17:14] LABS: Glucose,Whole Blood 394 mg/dL (70-110)
[2022-09-12] MEDS: DILTIAZEM 125 MG in SODIUM CHLORIDE 0.9% 100 ML IV SCH (18:21)
[2022-09-12 20:22] LABS: Glucose,Whole Blood 361 mg/dL (70-110)
[2022-09-12] MEDS: ACETAMINOPHEN TAB 325 MG TAB PO PRN (20:49)
[2022-09-13 06:02] LABS: Glucose,Whole Blood 176 mg/dL (70-110)
[2022-09-13] MEDS: INSULIN ASPART (NovoLOG) 100 UNIT/ML VIAL SQ SCH ×4 (06:16→20:53)
[2022-09-13] MEDS: MIDODRINE 5 MG TAB PO SCH ×2 (06:16→16:29)
[2022-09-13] MEDS: INSULIN DETEMIR (LEVEMIR) 100 UNIT/ML SYR SQ SCH ×2 (06:16→20:54)
[2022-09-13 07:38] LABS: Anisocytosis Slight; HCT 23.1 % (34.0-46.0); HGB 7.2 gm/dL (11.4-16.0); Hypochromasia Moderate; MCHC 31.3 g/dL (31.0-37.0); MCV 89.3 fL (80.0-100.0); Mean Platelet Volume 7.6; Platelet Count 305 k/uL (150-450); RBC 2.59 m/uL (3.80-5.40); RDW 18.9 % (11.5-15.5); WBC 8.7 k/uL (3.8-10.6)
[2022-09-13 07:57] LABS: ALT 17 U/L (4-34); AST 20 U/L (14-36); African American GFR (CKD) 37 (>60 ml/min/1.73 sqM); Anion Gap 4 mmol/L; Blood Urea Nitrogen 59 mg/dL (7-17); Calcium 8.1 mg/dL (8.4-10.2); Carbon Dioxide 25 mmol/L (22-30); Chloride 107 mmol/L (98-107); Glucose 142 mg/dL (74-99); Non-African American GFR(CKD) 32 (>60 ml/min/1.73 sqM); Potassium 3.8 mmol/L (3.5-5.1); Sodium 136 mmol/L (137-145); Total Bilirubin 0.3 mg/dL (0.2-1.3); Total Protein 4.2 g/dL (6.3-8.2)
[2022-09-13 07:58] LABS: Alkaline Phosphatase 73 U/L (38-126)
--- NOTE | 2022-09-13 08:23 | P.PN ---
Subjective Principal diagnosis: Hypotension This is 76-year-old white female with primarily bedridden who has having hypotension at the alf. She is admitted and placed on appropriate pressors area the patient is now stabilizing as far as blood pressure and feels minimal chest pain or dizziness. No nausea or vomiting. No voiding difficulty stated. Yesterday she was transferred to cardiac floor related to atrial fibrillation with rapid ventricular response. Cardizem drip was started. Cardiology is not consulted. Bone scan does show probable prostatitis of the feet which she has had in the past. Pain is nominal Objective - Vital Signs Vital signs: Vital Signs Temp 98.0 F 09/13/22 07:00 Pulse 76 09/13/22 07:00 Resp 16 09/13/22 07:00 BP 112/67 09/13/22 07:00 Pulse Ox 95 09/13/22 07:00 FiO2 21 09/11/22 08:40 Intake & Output 09/12/22 09/13/22 09/13/22 18:59 06:59 18:59 Intake Total 630 45.083 Output Total 650 Balance -20 45.083 Intake: Intake, IV Titration 45.083 Amount Diltiazem 125 mg In 45.083 Sodium Chloride 0.9% 100 ml @ 5 MG/HR 5 mls/hr IV .Q24H [facility] Rx#:[id number] Oral 630 Output: Urine 650 Other: Voiding Method External Catheter External Catheter - Constitutional General appearance: Present: obese - Respiratory Respiratory: bilateral: CTA - Cardiovascular Rhythm: regular Heart sounds: normal: S1, S2 Abnormal Heart Sounds: Absent: S3 Gallop - Gastrointestinal General gastrointestinal: Present: soft. Absent: tenderness - Integumentary Integumentary: Present: cellulitis - Labs CBC & Chem 7: 09/13/22 07:19 09/13/22 07:19 Labs: Abnormal Lab Results - Last 24 Hours (Table) 09/12/22 09/12/22 09/12/22 Range/Units 10:59 17:13 20:21 RBC (3.80-5.40) m/uL Hgb (11.4-16.0) gm/dL Hct (34.0-46.0) % RDW (11.5-15.5) % Sodium (137-145) mmol/L BUN (7-17) mg/dL Creatinine (0.52-1.04) mg/dL Glucose (74-99) mg/dL POC Glucose (mg/dL) 315 H 394 H 361 H (70-110) mg/dL Calcium (8.4-10.2) mg/dL Total Protein (6.3-8.2) g/dL Albumin (3.5-5.0) g/dL 09/13/22 09/13/22 09/13/22 Range/Units 06:00 07:19 07:19 RBC 2.59 L (3.80-5.40) m/uL Hgb 7.2 L (11.4-16.0) gm/dL Hct 23.1 L (34.0-46.0) % RDW 18.9 H (11.5-15.5) % Sodium 136 L (137-145) mmol/L BUN 59 H (7-17) mg/dL Creatinine 1.53 H (0.52-1.04) mg/dL Glucose 142 H (74-99) mg/dL POC Glucose (mg/dL) 176 H (70-110) mg/dL Calcium 8.1 L (8.4-10.2) mg/dL Total Protein 4.2 L (6.3-8.2) g/dL Albumin 2.0 L (3.5-5.0) g/dL Microbiology - Last 24 Hours (Table) 09/10/22 01:22 Blood Culture - Preliminary Blood 09/10/22 01:12 Blood Culture - Preliminary Blood Assessment and Plan (1) Chronic wound Current Visit: Yes Status: Acute Code(s): T14.8XXA - OTHER INJURY OF UNSPECIFIED BODY REGION, INITIAL ENCOUNTER SNOMED Code(s): 28341673809770 (2) History of atrial fibrillation Current Visit: Yes Status: Acute Code(s): Z86.79 - PERSONAL HISTORY OF OTHER DISEASES OF THE CIRCULATORY SYSTEM SNOMED Code(s): 089575967 (3) Hyperlipidemia Current Visit: Yes Status: Acute Code(s): E78.5 - HYPERLIPIDEMIA, UNSPECIFIED SNOMED Code(s): 16114853 (4) Hypotension Current Visit: Yes Status: Acute Code(s): I95.9 - HYPOTENSION, UNSPECIFIED SNOMED Code(s): 93338910 (5) Type 2 diabetes mellitus with other skin ulcer Current Visit: Yes Status: Acute Code(s): E11.622 - TYPE 2 DIABETES MELLITUS WITH OTHER SKIN ULCER; L98.499 - NON-PRESSURE CHRONIC ULCER OF SKIN OF SITES W UNSP SEVERITY SNOMED Code(s): 745024594 Plan: Blood sugar management is nominal. Vital signs are now stabilizing. Atrial fibrillation is now stabilizing Check CBC and CMP in a.m. Infectious disease team consulted for cellulitis/osteomyelitis. Appreciate cardiology input.
[2022-09-13] MEDS: IPRATROPIUM-ALBUTEROL 3 ML NEB INHALATION PRN ×3 (08:24→15:55)
[2022-09-13] MEDS: PANTOPRAZOLE 40 MG/10 ML VIAL IV SCH (08:42)
[2022-09-13] MEDS: methylPREDNISolone SOD SUCCI 40 MG/ML 1 ML VIAL IV SCH ×2 (08:43→20:53)
[2022-09-13] MEDS: ESCITALOPRAM 10 MG TAB PO SCH ×2 (08:44→08:45)
[2022-09-13] MEDS: SODIUM BICARBONATE TAB 650 MG TAB PO SCH ×2 (08:44→20:53)
[2022-09-13] MEDS: APIXABAN 5 MG TAB PO SCH ×2 (08:44→20:53)
[2022-09-13] MEDS: DAPAGLIFLOZIN PROPANEDIOL 10 MG TABLET PO SCH ×2 (08:45→08:51)
[2022-09-13] MEDS: AMIODARONE 100 MG TAB PO SCH (08:45)
[2022-09-13] MEDS: NYSTATIN 100,000 UNIT/GM POWD 15 GM TOPICAL SCH ×2 (08:50→20:54)
[2022-09-13] MEDS: SODIUM CHLORIDE 0.9% 1,000 ML IV SCH (09:19)
--- NOTE | 2022-09-13 11:04 | P.CRDCN ---
History of Present Illness Consult date: 09/13/22 Consult reason: atrial fibrillation (W OCC RVR) History of present illness: History of present illness: This is a 76-year-old female patient of Dr. Guillen with past medical history of paroxysmal atrial fibrillation on eliquis, cardiomyopathy with severe LV dysfunction, hypertension, dyslipidemia, family history of premature coronary artery disease. Patient was last seen in the office in January 2022 at that time she was advised to stop taking metformin. We have been asked to evaluate the patient for atrial fibrillation with occasional RVR. Patient had episode of A. fib with RVR at 160 bpm last evening was started on Cardizem for short period. At the time of this evaluation, the patient is in a sinus rhythm with PACs. Patient denies having any palpitations, chest pain or shortness of breath at the time of evaluation. Patient states that she is being evaluated for osteomyelitis of the left foot. EKG sinus rhythm with PACs Chest x-ray: Cardiomegaly with left perihilar infiltrate. Coarsened interstitium suggest chronic interstitial lung disease. Mild superimposed pneumonitis. WBC 8.7, hemoglobin 7.2, platelet count 305. Sodium 136, potassium 3.8. BUN 59 creatinine 1.53. Home cardiac medications: Amiodarone 100 mg daily, eliquis 5 mg twice daily, Lipitor 20 g at bedtime, Bumex 2 mg daily, Farxiga 10 mg daily, Lopressor 25 mg twice daily, Entresto 2426 milligrams twice daily, Aldactone 25 mg daily Cardiac catheterization April 2019 revealed normal coronaries, right dominant. Echocardiogram 12/2021 revealed LVH with preserved systolic function. Review Of Systems: At the time of my evaluation: Constitutional: No fever, no chills. No weakness, fatigue or lethargy. EENT: No headache. No dizziness. Lungs: No shortness of breath, cough, no sputum production. No wheezing. Chronic dyspnea on exertion Cardiovascular: No chest pain, chronic lower extremity edema. No palpitations. No paroxysmal nocturnal dyspnea. No orthopnea. No lightheadedness or dizziness. No syncopal episodes. Abdominal: No abdominal pain. No nausea, vomiting. No diarrhea. No constipation. Genitourinary: No dysuria.. No urinary retention. Musculoskeletal: No myalgias. No muscle weakness Integumentary: Reports left foot osteomyelitis. No rash. Neurologic: No aphasia. No facial droop. No change in mentation. No head injury. No headache. Physical examination: Gen: This is a 76-year-old female. She is resting in bed and appears to be comfortable at rest. VS: reviewed. Blood pressure 112/67, heart rate 76, pulse ox 95% on room air. HEENT: Head is atraumatic, normocephalic. Pupils equal, round. Sclerae is anicteric. NECK: Supple. No JVD. LUNGS: Clear to auscultation. No wheezes or rhonchi. No intercostal retractions. HEART: Regular rate and rhythm. 2/6 systolic murmur at the base 2/6 holosy stolic murmur at the apex ABDOMEN: Soft No tenderness. EXTREMITIES: 2+ bilateral pitting pedal edema. NEUROLOGICAL: Patient is awake, alert and oriented x3. Assessment: Paroxysmal atrial fibrillation with episodes of RVR, patient now in sinus rhythm Hypotension and sepsis with suspected osteo-myelitis of the left foot Diabetes mellitus type 2 History of cardiomyopathy Hypertension Dyslipidemia Plan: Continue patient on current medications Entresto and Aldactone appeared to be on hold due to acute kidney injury No need to repeat echocardiogram Cardiology will follow on an as-needed basis. Please reconsult for any new concerns. Patient will follow-up with Dr. Guillen one week following discharge. Thank you kindly for this consultation. Nurse practitioner note has been reviewed, I agree with documented findings and plan of care. Patient was seen and examined. Past Medical History Past Medical History: Atrial Fibrillation, Coronary Artery Disease (CAD), CVA/TIA, Diabetes Mellitus, Deep Vein Thrombosis (DVT), Hypertension, Myocardial Infarction (SC), Osteoarthritis (OA) Additional Past Medical History / Comment(s): hx tia, hx stroke behind left eye., lt eye macular , states hospitalized with Covid April 2019 with life support and stage 3 kidney failure., hx of fall with hip fx and surgery 01/13/22 and residing at [facility] for Rehab- no wt bearing, DVT during ., varicose veins, states painful sore left heel., hx of t.b. as a child with scarring on lungs. Last Myocardial Infarction Date:: unknown date History of Any Multi-Drug Resistant Organisms: VRE Date of last positivie culture/infection: 09/08/20 MDRO Source:: Groin Past Surgical History: Adenoidectomy, Hysterectomy, Orthopedic Surgery, Tonsillectomy, Tubal Ligation Additional Past Surgical History / Comment(s): pilonidal cyst twice as child, rt knee arthroscopy, krystyna cataracts, krystyna great toe sx, ORIF Left hip (01/13/22) Past Anesthesia/Blood Transfusion Reactions: Previous Problems w/ Anesthesia, Postoperative Nausea & Vomiting (PONV) Additional Past Anesthesia/Blood Transfusion Reaction / Comment(s): difficulty waking up after sx. clausterphobia. 1961 blood transfusion(during child ) pt stated had palpitations after 2nd unit given Past Psychological History: Anxiety Smoking Status: Never smoker Past Alcohol Use History: None Reported Past Drug Use History: None Reported - Past Family History Mother Family Medical History: Cancer Additional Family Medical History / Comment(s): lung cancer Father Family Medical History: Coronary Artery Disease (CAD) Additional Family Medical History / Comment(s): heart disease, kidney disese Medications and Allergies Home Medications Medication Instructions Recorded Confirmed Type Apixaban [Eliquis] 5 mg PO BID 08/13/20 09/09/22 History Atorvastatin [Lipitor] 20 mg PO HS@2100 01/12/22 09/09/22 History Dapagliflozin Propanediol [Farxiga] 10 mg PO DAILY 01/12/22 09/09/22 History Sacubitril/Valsartan [Entresto 24 1 tab PO BID@0900,1700 01/12/22 09/09/22 History mg-26 mg Tablet] Amiodarone [Cordarone] 100 mg PO DAILY@0900 03/05/22 09/09/22 History Escitalopram [Lexapro] 10 mg PO DAILY 03/05/22 09/09/22 History Magnesium Hydroxide [Milk of 2,400 mg PO Q8H PRN 03/05/22 09/09/22 History Magnesia] Metoprolol Tartrate [Lopressor] 25 mg PO BID@0900,1700 03/05/22 09/09/22 History Omeprazole [PriLOSEC] 20 mg PO DAILY@0600 03/05/22 09/09/22 History Tamsulosin [Flomax] 0.4 mg PO DAILY@1700 03/05/22 09/09/22 History Albuterol Sulfate [Ventolin HFA] 2 puff INHALATION RT-Q4H PRN 06/17/22 09/09/22 History Calcium Carbonate [Tums] 1,000 mg PO Q4H PRN 06/17/22 09/09/22 History Multivitamins, Thera [Multivitamin 1 tab PO DIRECTED 06/17/22 09/09/22 History (formulary)] Spironolactone 25 mg PO DAILY 06/17/22 09/09/22 History 0.9 % Sodium Chloride [Sodium 10 ml IV BID 09/09/22 09/09/22 History Chloride Flush] ALPRAZolam [Xanax] 0.5 mg PO Q8H PRN 09/09/22 09/09/22 History Acetaminophen [Tylenol 8 Hour] 650 mg PO Q6H PRN 09/09/22 09/09/22 History Ammonium Lactate Cream [Lac-Hydrin 1 applic TOPICAL BID 09/09/22 09/09/22 History 12% Cream] Bumetanide [BUMEX] 2 mg PO DAILY@1500 09/09/22 09/09/22 History Fluconazole [Diflucan] 100 mg PO DAILY 09/09/22 09/09/22 History Insulin Glargine-Yfgn [Semglee 5 units SQ DAILY 09/09/22 09/09/22 History (Yfgn) Pen] Insulin Glargine-Yfgn [Semglee 10 units SQ HS 09/09/22 09/09/22 History (Yfgn) Pen] Ipratropium Pickrell [Atrovent Hfa] 2 puff INHALATION RT-QID 09/09/22 09/09/22 History L.acidoph,Paracasei, B.lactis 1 cap PO DAILY 09/09/22 09/09/22 History [Probiotic] bisacodyL [Correctol] 10 mg PO DAILY PRN 09/09/22 09/09/22 History oxyCODONE HCL [OxyIR] 5 mg PO Q4H 09/09/22 09/09/22 History Allergies Allergy/AdvReac Type Severity Reaction Status Date / Time shellfish derived [Shellfish] Allergy Severe vomiting Verified 09/09/22 20:53 -very ill adhesive Allergy skin red Verified 09/09/22 20:53 and murguia, tears skin aluminum Allergy skin turns Verified 09/09/22 20:53 black, passes out Antihistamines - Allergy heart Verified 09/09/22 20:53 Ethylenediamine palpitations codeine Allergy migraines Verified 09/09/22 20:53 epinephrine Allergy heart Verified 09/09/22 20:53 palpitations hydrogen peroxide Allergy murguia and Verified 09/09/22 20:53 causes infection latex Allergy passes out Verified 09/09/22 20:53 lidocaine Allergy gtts in Verified 09/09/22 20:53 eyes and passed out nickel Allergy turns skin Verified 09/09/22 20:53 black and passes out procaine HCl [From Novocain] Allergy passed Verified 09/09/22 20:53 out- due to epinephrine in it. thiopental sodium Allergy needed cpr Verified 09/09/22 20:53 [From Pentothal] resusitation egg yolk AdvReac Diarrhea Verified 09/09/22 20:53 surgical felicita Allergy Severe had to be Uncoded 09/09/22 19:56 removed 2 days post-op petroleum products AdvReac passes out Uncoded 09/09/22 19:56 or does not feel well. (diesel, oils) Physical Exam Vitals: Vital Signs Temp Pulse Pulse Resp BP Pulse Ox 09/13/22 08:38 76 09/13/22 08:24 72 96 09/13/22 07:00 98.0 F 76 16 112/67 95 09/13/22 03:42 98 F 65 97/54 97 09/12/22 23:42 98.2 F 82 16 102/63 96 09/12/22 22:13 86 09/12/22 22:03 84 09/12/22 20:00 98.3 F 80 18 93/55 93 L 09/12/22 15:41 92 09/12/22 15:30 96 09/12/22 12:20 97.8 F 81 18 122/67 91 L 09/12/22 11:43 68 09/12/22 11:32 64 Intake and Output 09/12/22 09/13/22 09/13/22 22:59 06:59 14:59 Intake Total 630 45.083 Output Total 650 Balance -20 45.083 Intake: Intake, IV Titration 45.083 Amount Diltiazem 125 mg In 45.083 Sodium Chloride 0.9% 100 ml @ 5 MG/HR 5 mls/hr IV .Q24H [facility] Rx#:[id number] Oral 630 Output: Urine 650 Other: Voiding Method External Catheter Results 09/13/22 07:19 09/13/22 07:19 Cardiac Enzymes 09/13/22 Range/Units 07:19 AST 20 (14-36) U/L CBC 09/13/22 Range/Units 07:19 WBC 8.7 (3.8-10.6) k/uL RBC 2.59 L (3.80-5.40) m/uL Hgb 7.2 L (11.4-16.0) gm/dL Hct 23.1 L (34.0-46.0) % Plt Count 305 (150-450) k/uL Comprehensive Metabolic Panel 09/13/22 Range/Units 07:19 Sodium 136 L (137-145) mmol/L Potassium 3.8 (3.5-5.1) mmol/L Chloride 107 (98-107) mmol/L Carbon Dioxide 25 (22-30) mmol/L BUN 59 H (7-17) mg/dL Creatinine 1.53 H (0.52-1.04) mg/dL Glucose 142 H (74-99) mg/dL Calcium 8.1 L (8.4-10.2) mg/dL AST 20 (14-36) U/L ALT 17 (4-34) U/L Alkaline Phosphatase 73 (38-126) U/L Total Protein 4.2 L (6.3-8.2) g/dL Albumin 2.0 L (3.5-5.0) g/dL Current Medications Generic Name Dose Route Start Last Admin Trade Name Freq PRN Reason Stop Dose Admin Acetaminophen 650 mg 09/09/22 20:16 09/12/22 20:49 Acetaminophen Tab 325 Mg Tab PO 650 mg Q4HR PRN Administration Fever and/or Mild Pain Albuterol/Ipratropium 3 ml 09/09/22 23:36 09/13/22 08:24 Ipratropium-Albuterol 3 Ml Neb INHALATION 3 ml RT-Q4H PRN Administration Shortness Of Breath Or Wheezing Alprazolam 0.5 mg 09/12/22 15:24 09/12/22 16:12 Alprazolam 0.5 Mg Tab PO 0.5 mg QID PRN Administration Anxiety Amiodarone HCl 100 mg 09/10/22 09:00 09/13/22 08:45 Amiodarone 100 Mg Tab PO 100 mg DAILY@0900 HARIKA Administration Apixaban 5 mg 09/10/22 09:00 09/13/22 08:44 Apixaban 5 Mg Tab PO 5 mg BID HARIKA Administration Protocol Bumetanide 2 mg 09/10/22 15:00 09/12/22 14:06 Bumetanide 1 Mg Tab PO 2 mg DAILY@1500 HARIKA Administration Calamine/Phenol 1 applic 09/10/22 09:15 09/10/22 10:52 Menthol-Zinc Oxide Oint 113 Gm Tube TOPICAL 1 applic DAILY PRN Administration Skin Irritation Protocol Collagenase 1 applic 09/10/22 10:30 09/12/22 09:43 Collagenase 250 Unit/Gm Ointment 30 Gm Tube TOPICAL 1 applic DAILY HARIKA Administration Protocol Dapagliflozin 10 mg 09/10/22 09:00 09/13/22 08:51 Dapagliflozin Propanediol 10 Mg Tablet PO Not Given DAILY HARIKA Dextrose/Water 25 ml 09/09/22 23:26 Dextrose 50% Syringe 50 Ml IVP PER PROTOCOL PRN Hypoglycemia Protocol Dextrose/Water 50 ml 09/09/22 23:26 Dextrose 50% Syringe 50 Ml IVP PER PROTOCOL PRN Hypoglycemia Protocol Escitalopram Oxalate 10 mg 09/10/22 09:00 09/13/22 08:45 Escitalopram 10 Mg Tab PO 10 mg DAILY HARIKA Administration Hydrocortisone 1 applic 09/10/22 08:42 09/11/22 16:34 Hydrocortisone 1% Cream 30 Gm Tube TOPICAL 1 applic BID PRN Administration Skin Irritation Protocol Daptomycin 400 mg/ Sodium 50 mls @ 100 mls/hr 09/11/22 16:00 09/11/22 16:23 Chloride IVPB 100 mls/hr Q48H HARIKA Administration Protocol Sodium Chloride 1,000 mls @ 20 mls/hr 09/12/22 08:45 09/12/22 09:39 Saline 0.9% IV Not Given .Q24H HARIKA Diltiazem HCl 125 mg/ Sodium 125 mls @ 5 mls/hr 09/12/22 17:45 09/13/22 03:22 Chloride IV 0 mg/hr .Q24H HARIKA 0 mls/hr Infusion 5 MG/HR Insulin Aspart 0 unit 09/10/22 07:30 09/13/22 06:16 Insulin Aspart (Novolog) 100 Unit/Ml Vial SQ 2 unit ACHS HARIKA Administration Protocol Insulin Detemir 10 unit 09/13/22 07:00 09/13/22 06:16 Insulin Detemir (Levemir) 100 Unit/Ml Syr SQ 10 unit DAILY@0700 HARIKA Administration Insulin Detemir 15 unit 09/12/22 21:00 09/12/22 20:49 Insulin Detemir (Levemir) 100 Unit/Ml Syr SQ 15 unit HS HARIKA Administration Methylprednisolone Sodium Succinate 40 mg 09/10/22 09:00 09/13/22 08:43 Methylprednisolone Sod Succi 40 Mg/Ml 1 Ml Vial IV 40 mg Q12HR HARIKA Administration Midodrine 5 mg 09/10/22 12:30 09/13/22 06:16 Midodrine 5 Mg Tab PO 5 mg AC-BID HARIKA Administration Miscellaneous Information 1 each 09/10/22 01:42 Magnesium Replacement Protocol 1 Each Misc MISCELLANE DAILY PRN Per Protocol Protocol Miscellaneous Information 1 each 09/10/22 08:44 Potassium Replacement Protocol 1 Each Misc MISCELLANE DAILY PRN Per Protocol Protocol Naloxone HCl 0.2 mg 09/09/22 20:16 Naloxone 0.4 Mg/Ml 1 Ml Vial IV Q2M PRN Opioid Reversal Nystatin 1 applic 09/10/22 09:00 09/13/22 08:50 Nystatin 100,000 Unit/Gm Powd 15 Gm TOPICAL 1 applic BID HARIKA Administration Protocol Pantoprazole Sodium 40 mg 09/10/22 09:00 09/13/22 08:42 Pantoprazole 40 Mg/10 Ml Vial IV 40 mg DAILY HARIKA Administration Sodium Bicarbonate 650 mg 09/10/22 09:00 09/13/22 08:44 Sodium Bicarbonate Tab 650 Mg Tab PO 650 mg BID HARIKA Administration Intake and Output 09/12/22 09/13/22 09/13/22 22:59 06:59 14:59 Intake Total 630 45.083 Output Total 650 Balance -20 45.083 Intake: Intake, IV Titration 45.083 Amount Diltiazem 125 mg In 45.083 Sodium Chloride 0.9% 100 ml @ 5 MG/HR 5 mls/hr IV .Q24H [facility] Rx#:[id number] Oral 630 Output: Urine 650 Other: Voiding Method External Catheter 09/13/22 07:19 09/13/22 07:19
[2022-09-13 11:45] LABS: Glucose,Whole Blood 221 mg/dL (70-110)
[2022-09-13] MEDS: COLLAGENASE 250 UNIT/GM OINTMENT 30 GM TUBE TOPICAL SCH (16:24)
[2022-09-13] MEDS: BUMETANIDE 1 MG TAB PO SCH (16:25)
[2022-09-13 16:55] LABS: Glucose,Whole Blood 323 mg/dL (70-110)
[2022-09-13] MEDS: DILTIAZEM 125 MG in SODIUM CHLORIDE 0.9% 100 ML IV SCH (17:16)
[2022-09-13 20:20] LABS: Glucose,Whole Blood 281 mg/dL (70-110)
--- NOTE | 2022-09-13 22:49 | P.PN ---
Subjective Progress Note Date: 09/13/22 Principal diagnosis: Left hip wound consult for Osteomyelitis and rash Patient is a 76 year female who was admitted to [facility] and has been diagnosed with a left heel Osteomyelitis culture positive for Proteus Providencia and MRSA, the patient received vancomycin and meropenem at [facility] from 07/23/2022 until 09/03/2022 , Patient did develop a rash while on this and by therapy on 08/15/2022 that has been treated with the Benadryl and prednisone those were discontinued after the patient completed her antibiotic therapy and subsequently which have worsening of the rash and the patient was also noticed to be hypotensive with electrolyte abnormality for the patient was sent to [facility] On today's evaluation that is 09/13/2022, the patient remains to be afebrile, the patient is breathing comfortably on room air denies any chest pain or shortness of occasional cough no abdominal pain or diarrhea Objective - Vital Signs Vital signs: Vital Signs Temp 97.9 F 09/13/22 11:00 Pulse 80 09/13/22 12:07 Resp 15 09/13/22 11:00 BP 126/72 09/13/22 11:00 Pulse Ox 99 09/13/22 11:00 FiO2 21 09/11/22 08:40 Intake & Output 09/12/22 09/13/22 09/13/22 18:59 06:59 18:59 Intake Total 630 45.083 Output Total 650 500 Balance -20 45.083 -500 Intake: Intake, IV Titration 45.083 Amount Diltiazem 125 mg In 45.083 Sodium Chloride 0.9% 100 ml @ 5 MG/HR 5 mls/hr IV .Q24H [facility] Rx#:[id number] Oral 630 Output: Urine 650 500 Other: Voiding Method External Catheter External Catheter External Catheter - Exam GENERAL DESCRIPTION: An elderly female lying in bed in no distress RESPIRATORY SYSTEM: Unlabored breathing , decreased breath sounds at bases HEART: S1 S2 regular rate and rhythm , ABDOMEN: Soft , no tenderness EXTREMITIES: Left heel wound is currently dressed no drainage on dressing SKIN : Generalized micropapular rash especially to the upper torso - Labs CBC & Chem 7: 09/13/22 07:19 09/13/22 07:19 Labs: Abnormal Lab Results - Last 24 Hours (Table) 09/12/22 09/12/22 09/13/22 Range/Units 17:13 20:21 06:00 RBC (3.80-5.40) m/uL Hgb (11.4-16.0) gm/dL Hct (34.0-46.0) % RDW (11.5-15.5) % Sodium (137-145) mmol/L BUN (7-17) mg/dL Creatinine (0.52-1.04) mg/dL Glucose (74-99) mg/dL POC Glucose (mg/dL) 394 H 361 H 176 H (70-110) mg/dL Calcium (8.4-10.2) mg/dL Total Protein (6.3-8.2) g/dL Albumin (3.5-5.0) g/dL 09/13/22 09/13/22 09/13/22 Range/Units 07:19 07:19 11:43 RBC 2.59 L (3.80-5.40) m/uL Hgb 7.2 L (11.4-16.0) gm/dL Hct 23.1 L (34.0-46.0) % RDW 18.9 H (11.5-15.5) % Sodium 136 L (137-145) mmol/L BUN 59 H (7-17) mg/dL Creatinine 1.53 H (0.52-1.04) mg/dL Glucose 142 H (74-99) mg/dL POC Glucose (mg/dL) 221 H (70-110) mg/dL Calcium 8.1 L (8.4-10.2) mg/dL Total Protein 4.2 L (6.3-8.2) g/dL Albumin 2.0 L (3.5-5.0) g/dL Microbiology - Last 24 Hours (Table) 09/10/22 01:22 Blood Culture - Preliminary Blood 09/10/22 01:12 Blood Culture - Preliminary Blood Assessment and Plan (1) Rash Current Visit: Yes Status: Acute Code(s): R21 - RASH AND OTHER NONSPECIFIC SKIN ERUPTION SNOMED Code(s): 965358171 (2) Pressure ulcer of left heel, stage 4 Current Visit: Yes Status: Acute Code(s): L89.624 - PRESSURE ULCER OF LEFT HEEL, STAGE 4 SNOMED Code(s): 28703148881235 Plan: 1patient with a chronic nonhealing wound to the left heel area 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 culture were positive for Provid encia, Proteus and MRSA for the patient has completed her antibiotic from 07/23/2022 until 09/03/2022 now presented to hospital with hypotension rash-- it is more likely drug related, patient left lower extremity wound seemed to be healing well however the x-rays were reported to have some abnormality 2- Patient did have a mildly elevated sed rate of 28 bone scan was positive however the patient seem to have shown overall improvement as far as left heel wound is concerned may continue with the Zosyn at this point local wound care per wound care team and keep the area of the pressure Time with Patient: Less than 30
[2022-09-14] MEDS: ACETAMINOPHEN TAB 325 MG TAB PO PRN (00:23)
[2022-09-14 06:20] LABS: Glucose,Whole Blood 215 mg/dL (70-110)
[2022-09-14] MEDS: MIDODRINE 5 MG TAB PO SCH ×2 (06:37→16:46)
[2022-09-14] MEDS: INSULIN DETEMIR (LEVEMIR) 100 UNIT/ML SYR SQ SCH ×2 (06:38→20:25)
[2022-09-14] MEDS: INSULIN ASPART (NovoLOG) 100 UNIT/ML VIAL SQ SCH ×4 (06:38→20:25)
[2022-09-14] MEDS: IPRATROPIUM-ALBUTEROL 3 ML NEB INHALATION PRN ×3 (07:58→15:13)
[2022-09-14 08:30] LABS: Anisocytosis Slight; HCT 24.4 % (34.0-46.0); HGB 7.8 gm/dL (11.4-16.0); Hypochromasia Slight; MCH 27.8 pg (25.0-35.0); MCHC 32.1 g/dL (31.0-37.0); MCV 86.7 fL (80.0-100.0); Mean Platelet Volume 8.5; Platelet Count 299 k/uL (150-450); Poikilocytosis Slight; RBC 2.81 m/uL (3.80-5.40); RDW 18.8 % (11.5-15.5)
[2022-09-14 08:58] LABS: ALT 23 U/L (4-34); AST 29 U/L (14-36); African American GFR (CKD) 44 (>60 ml/min/1.73 sqM); Albumin 2.3 g/dL (3.5-5.0); Alkaline Phosphatase 102 U/L (38-126); Anion Gap 5 mmol/L; Blood Urea Nitrogen 58 mg/dL (7-17); Calcium 8.2 mg/dL (8.4-10.2); Carbon Dioxide 27 mmol/L (22-30); Chloride 103 mmol/L (98-107); Glucose 219 mg/dL (74-99); Non-African American GFR(CKD) 38 (>60 ml/min/1.73 sqM); Potassium 4.1 mmol/L (3.5-5.1); Sodium 135 mmol/L (137-145); Total Bilirubin 0.5 mg/dL (0.2-1.3); Total Protein 4.7 g/dL (6.3-8.2)
[2022-09-14] MEDS: APIXABAN 5 MG TAB PO SCH ×2 (09:21→20:24)
[2022-09-14] MEDS: PANTOPRAZOLE 40 MG/10 ML VIAL IV SCH (09:21)
[2022-09-14] MEDS: methylPREDNISolone SOD SUCCI 40 MG/ML 1 ML VIAL IV SCH ×2 (09:21→20:25)
[2022-09-14] MEDS: AMIODARONE 100 MG TAB PO SCH (09:21)
[2022-09-14] MEDS: SODIUM BICARBONATE TAB 650 MG TAB PO SCH ×2 (09:21→20:24)
[2022-09-14] MEDS: DAPAGLIFLOZIN PROPANEDIOL 10 MG TABLET PO SCH (09:22)
[2022-09-14] MEDS: COLLAGENASE 250 UNIT/GM OINTMENT 30 GM TUBE TOPICAL SCH (09:22)
[2022-09-14] MEDS: NYSTATIN 100,000 UNIT/GM POWD 15 GM TOPICAL SCH ×2 (09:22→20:26)
[2022-09-14 11:36] LABS: Glucose,Whole Blood 252 mg/dL (70-110)
[2022-09-14] MEDS ORDERED: traMADol 50 MG TAB PO SCH (13:00)
--- NOTE | 2022-09-14 14:32 | P.PN ---
Subjective Progress Note Date: 09/14/22 This is 76-year-old white female with primarily bedridden who has having hypotension at the [place] [facility]. She is admitted and placed on appropriate pressors area the patient is now stabilizing as far as blood pressure and feels minimal chest pain or dizziness. No nausea or vomiting. No voiding difficulty stated. Yesterday she was transferred to cardiac floor related to atrial fibrillation with rapid ventricular response. Cardizem drip was started. 09/14. Patient seen and examined. Lab work done today showed WBC 8, hemoglobin 7.8, sodium 130, potassium 4.1, BUN 58, creatinine 1.34. Patient complaining of back pain and generalized body aches REVIEW OF SYSTEMS: CONSTITUTIONAL: No fever, no malaise,. CARDIOVASCULAR: No chest pain, no palpitations, no syncope. PULMONARY: No shortness of breath, no cough, GASTROINTESTINAL: No diarrhea, no nausea, no vomiting, no abdominal pain. NEUROLOGICAL: No headaches, no weakness, PHYSICAL EXAMINATION: GENERAL: The patient is alert and oriented x3, not in any acute distress. Well developed, well nourished. HEENT: Pupils are round and equally reacting to light. EOMI. No scleral icterus. No conjunctival pallor. Normocephalic, atraumatic. No pharyngeal erythema. No thyromegaly. CARDIOVASCULAR: S1 and S2 present. No murmurs, rubs, or gallops. PULMONARY: Chest is clear to auscultation, no wheezing or crackles. ABDOMEN: Soft, nontender, nondistended, normoactive bowel sounds. No palpable organomegaly. MUSCULOSKELETAL: No joint swelling or deformity. EXTREMITIES: Left foot bandaged seen NEUROLOGICAL: Gross neurological examination did not reveal any focal deficits. SKIN: No rashes. Assessment and plan Paroxysmal atrial fibrillation with episodes of RVR, patient now in sinus rhythm Hypotension and sepsis with suspected osteo-myelitis of the left foot Diabetes mellitus type 2 History of cardiomyopathy Hypertension Dyslipidemia Chronic left heel wound. Bacteremia Monitor vital signs Monitor CBC Monitor CMP Continue telemetry monitoring Continue amiodaroneLucy patient with a chronic nonhealing wound to the left heel area 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 culture were positive for Providencia, Proteus and MRSA for the patient has completed her antibiotic from 07/23/2022 until 09/03/2022 Because of positive blood culture, patient is on IV daptomycin Started tramadol for pain Follow-up in ID recommendations Objective - Vital Signs Vital signs: Vital Signs Temp 98.2 F 09/14/22 08:00 Pulse 84 09/14/22 08:20 Resp 16 09/14/22 08:00 BP 131/64 09/14/22 08:00 Pulse Ox 95 09/14/22 08:00 FiO2 21 09/14/22 08:00 Intake & Output 09/13/22 09/14/22 09/14/22 18:59 06:59 18:59 Intake Total 120 110 120 Output Total 500 1750 Balance -380 -1640 120 Weight 97.7 kg Intake: Oral 120 110 120 Output: Urine 500 1750 Other: Voiding Method External Catheter External Catheter - Labs CBC & Chem 7: 09/14/22 08:10 09/14/22 08:10 Labs: Abnormal Lab Results - Last 24 Hours (Table) 09/13/22 09/13/22 09/13/22 Range/Units 11:43 16:54 20:17 RBC (3.80-5.40) m/uL Hgb (11.4-16.0) gm/dL Hct (34.0-46.0) % RDW (11.5-15.5) % Sodium (137-145) mmol/L BUN (7-17) mg/dL Creatinine (0.52-1.04) mg/dL Glucose (74-99) mg/dL POC Glucose (mg/dL) 221 H 323 H 281 H (70-110) mg/dL Calcium (8.4-10.2) mg/dL Total Protein (6.3-8.2) g/dL Albumin (3.5-5.0) g/dL 09/14/22 09/14/22 09/14/22 Range/Units 06:12 08:10 08:10 RBC 2.81 L (3.80-5.40) m/uL Hgb 7.8 L (11.4-16.0) gm/dL Hct 24.4 L (34.0-46.0) % RDW 18.8 H (11.5-15.5) % Sodium 135 L (137-145) mmol/L BUN 58 H (7-17) mg/dL Creatinine 1.34 H (0.52-1.04) mg/dL Glucose 219 H (74-99) mg/dL POC Glucose (mg/dL) 215 H (70-110) mg/dL Calcium 8.2 L (8.4-10.2) mg/dL Total Protein 4.7 L (6.3-8.2) g/dL Albumin 2.3 L (3.5-5.0) g/dL Microbiology - Last 24 Hours (Table) 09/10/22 01:12 Blood Culture Gram Stain - Preliminary Blood Blood Culture - Preliminary 09/10/22 01:22 Blood Culture - Preliminary Blood
[2022-09-14] MEDS: BUMETANIDE 1 MG TAB PO SCH (14:51)
[2022-09-14] MEDS: oxyCODONE-APAP 5-325MG 1 EACH TAB PO PRN ×2 (14:51→20:24)
[2022-09-14] MEDS: SODIUM CHLORIDE 0.9% 1,000 ML IV SCH (14:52)
[2022-09-14] MEDS: DILTIAZEM 125 MG in SODIUM CHLORIDE 0.9% 100 ML IV SCH (14:52)
[2022-09-14 16:36] LABS: Glucose,Whole Blood 332 mg/dL (70-110)
[2022-09-14] MEDS: ALPRAZolam 0.5 MG TAB PO PRN (18:43)
[2022-09-14 20:06] LABS: Glucose,Whole Blood 353 mg/dL (70-110)
[2022-09-14] MEDS: HYDROcodone/APAP 5-325MG 1 EACH TAB PO PRN (22:59)
[2022-09-15] MEDS: DILTIAZEM 125 MG in SODIUM CHLORIDE 0.9% 100 ML IV SCH ×2 (00:55→17:07)
[2022-09-15] MEDS: oxyCODONE-APAP 5-325MG 1 EACH TAB PO PRN ×4 (03:12→23:45)
[2022-09-15 04:40] LABS: Appearance,Urine Cloudy (Clear); Bacteria,Urine Occasional /hpf; Bilirubin,Urine Negative (Negative); Blood,Urine Large (Negative); Budding Yeast,Urine Many /hpf; Color,Urine Light Yellow; Glucose,Urine (UA) 4+ (Negative); Hyaline Casts,Urine 11 /lpf (0-2); Ketones,Urine Negative (Negative); Leukocyte Esterase,Urine Large (Negative); Nitrite,Urine Negative (Negative); PH, Urine 5.5 (5.0-8.0); Protein,Urine Negative (Negative); RBC,Urine 43 /hpf (0-5); Specific Gravity,Urine 1.007 (1.001-1.035); Squamous Epithelial Cell,Urine 1 /hpf (0-4); Urobilinogen,Urine <2.0 mg/dL (<2.0); WBC,Urine >182 /hpf (0-5)
[2022-09-15 06:09] LABS: Glucose,Whole Blood 179 mg/dL (70-110)
[2022-09-15] MEDS: HYDROcodone/APAP 5-325MG 1 EACH TAB PO PRN ×3 (06:26→20:47)
[2022-09-15] MEDS: INSULIN DETEMIR (LEVEMIR) 100 UNIT/ML SYR SQ SCH ×2 (06:27→20:48)
[2022-09-15] MEDS: INSULIN ASPART (NovoLOG) 100 UNIT/ML VIAL SQ SCH ×4 (06:27→20:48)
[2022-09-15] MEDS: MIDODRINE 5 MG TAB PO SCH ×2 (06:27→17:18)
[2022-09-15] MEDS: IPRATROPIUM-ALBUTEROL 3 ML NEB INHALATION PRN ×4 (07:39→20:59)
[2022-09-15] MEDS: DAPAGLIFLOZIN PROPANEDIOL 10 MG TABLET PO SCH (09:36)
[2022-09-15] MEDS: AMIODARONE 100 MG TAB PO SCH (09:36)
[2022-09-15] MEDS: PANTOPRAZOLE 40 MG/10 ML VIAL IV SCH (09:36)
[2022-09-15] MEDS: SODIUM BICARBONATE TAB 650 MG TAB PO SCH ×2 (09:37→20:47)
[2022-09-15] MEDS: APIXABAN 5 MG TAB PO SCH ×2 (09:37→20:47)
[2022-09-15] MEDS: ESCITALOPRAM 10 MG TAB PO SCH (09:38)
[2022-09-15] MEDS: ALPRAZolam 0.5 MG TAB PO PRN (09:38)
[2022-09-15] MEDS: methylPREDNISolone SOD SUCCI 40 MG/ML 1 ML VIAL IV SCH ×2 (09:38→20:47)
[2022-09-15] MEDS: NYSTATIN 100,000 UNIT/GM POWD 15 GM TOPICAL SCH ×2 (10:30→20:48)
--- NOTE | 2022-09-15 10:31 | P.PN ---
Subjective Progress Note Date: 09/14/22 Principal diagnosis: Left hip wound consult for Osteomyelitis and rash Patient is a 76 year female who was admitted to [facility] and has been diagnosed with a left heel Osteomyelitis culture positive for Proteus Providencia and MRSA, the patient received vancomycin and meropenem at [facility] from 07/23/2022 until 09/03/2022 , Patient did develop a rash while on this and by therapy on 08/15/2022 that has been treated with the Benadryl and prednisone those were discontinued after the patient completed her antibiotic therapy and subsequently which have worsening of the rash and the patient was also noticed to be hypotensive with electrolyte abnormality for the patient was sent to [facility] On today's evaluation that is 09/14/2022 patient is afebrile, the patient is breathing comfortably on room air denies any chest pain or shortness of breath or cough no abdominal pain and no diarrhea Objective - Vital Signs Vital signs: Vital Signs Temp 98.1 F 09/14/22 11:28 Pulse 72 09/14/22 11:28 Resp 16 09/14/22 11:28 BP 149/69 09/14/22 11:28 Pulse Ox 96 09/14/22 11:28 FiO2 21 09/14/22 08:00 Intake & Output 09/13/22 09/14/22 09/14/22 18:59 06:59 18:59 Intake Total 120 110 120 Output Total 500 1750 800 Balance -169 -1640 -254 Weight 97.7 kg Intake: Oral 120 110 120 Output: Urine 500 1750 800 Other: Voiding Method External Catheter External Catheter - Exam GENERAL DESCRIPTION: An elderly female lying in bed in no distress RESPIRATORY SYSTEM: Unlabored breathing , decreased breath sounds at bases HEART: S1 S2 regular rate and rhythm , ABDOMEN: Soft , no tenderness EXTREMITIES: Left heel wound is currently dressed no drainage on dressing SKIN : Generalized micropapular rash especially to the upper torso - Labs CBC & Chem 7: 09/14/22 08:10 09/14/22 08:10 Labs: Abnormal Lab Results - Last 24 Hours (Table) 09/13/22 09/13/22 09/14/22 Range/Units 16:54 20:17 06:12 RBC (3.80-5.40) m/uL Hgb (11.4-16.0) gm/dL Hct (34.0-46.0) % RDW (11.5-15.5) % Sodium (137-145) mmol/L BUN (7-17) mg/dL Creatinine (0.52-1.04) mg/dL Glucose (74-99) mg/dL POC Glucose (mg/dL) 323 H 281 H 215 H (70-110) mg/dL Calcium (8.4-10.2) mg/dL Total Protein (6.3-8.2) g/dL Albumin (3.5-5.0) g/dL 09/14/22 09/14/22 09/14/22 Range/Units 08:10 08:10 11:35 RBC 2.81 L (3.80-5.40) m/uL Hgb 7.8 L (11.4-16.0) gm/dL Hct 24.4 L (34.0-46.0) % RDW 18.8 H (11.5-15.5) % Sodium 135 L (137-145) mmol/L BUN 58 H (7-17) mg/dL Creatinine 1.34 H (0.52-1.04) mg/dL Glucose 219 H (74-99) mg/dL POC Glucose (mg/dL) 252 H (70-110) mg/dL Calcium 8.2 L (8.4-10.2) mg/dL Total Protein 4.7 L (6.3-8.2) g/dL Albumin 2.3 L (3.5-5.0) g/dL Microbiology - Last 24 Hours (Table) 09/10/22 01:12 Blood Culture Gram Stain - Preliminary Blood Blood Culture - Preliminary 09/10/22 01:22 Blood Culture - Preliminary Blood Assessment and Plan (1) Rash Current Visit: Yes Status: Acute Code(s): R21 - RASH AND OTHER NONSPECIFIC SKIN ERUPTION SNOMED Code(s): 861351244 (2) Pressure ulcer of left heel, stage 4 Current Visit: Yes Status: Acute Code(s): L89.624 - PRESSURE ULCER OF LEFT HEEL, STAGE 4 SNOMED Code(s): 56738662602145 Plan: 1patient with a chronic nonhealing wound to the left heel area 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 culture were positive for Providencia, Proteus and MRSA for the patient has completed her antibiotic from 07/23/2022 until 09/03/2022 now presented to hospital with hypotension rash-- it is more likely drug related, patient left lower extremity wound seemed to be healing well however the x-rays were reported to have some abnormality 2- Patient did have a mildly elevated sed rate of 28 bone scan was positive however the patient seem to have shown overall improvement as far as left heel wound is concerned , We will review the scan and the x-ray with the radiologist on Friday continue the patient on daptomycin and monitor clinical course closely Time with Patient: Less than 30
[2022-09-15 12:04] LABS: Glucose,Whole Blood 265 mg/dL (70-110)
--- NOTE | 2022-09-15 13:42 | P.PN ---
Subjective Progress Note Date: 09/15/22 This is 76-year-old white female with primarily bedridden who has having hypotension at the longterm. She is admitted and placed on appropriate pressors area the patient is now stabilizing as far as blood pressure and feels minimal chest pain or dizziness. No nausea or vomiting. No voiding difficulty stated. Yesterday she was transferred to cardiac floor related to atrial fibrillation with rapid ventricular response. Cardizem drip was started. 09/14. Patient seen and examined. Lab work done today showed WBC 8, hemoglobin 7.8, sodium 130, potassium 4.1, BUN 58, creatinine 1.34. Patient complaining of back pain and generalized body aches 09/15. Patient seen and examined. States pain has improved. Complaining of urinary retention, Merida placed REVIEW OF SYSTEMS: CONSTITUTIONAL: No fever, no malaise,. CARDIOVASCULAR: No chest pain, no palpitations, no syncope. PULMONARY: No shortness of breath, no cough, GASTROINTESTINAL: No diarrhea, no nausea, no vomiting, no abdominal pain. NEUROLOGICAL: No headaches, no weakness, PHYSICAL EXAMINATION: GENERAL: The patient is alert and oriented x3, not in any acute distress. Well developed, well nourished. HEENT: Pupils are round and equally reacting to light. EOMI. No scleral icterus. No conjunctival pallor. Normocephalic, atraumatic. No pharyngeal erythema. No thyromegaly. CARDIOVASCULAR: S1 and S2 present. No murmurs, rubs, or gallops. PULMONARY: Chest is clear to auscultation, no wheezing or crackles. ABDOMEN: Soft, nontender, nondistended, normoactive bowel sounds. No palpable organomegaly. MUSCULOSKELETAL: No joint swelling or deformity. EXTREMITIES: Left foot bandaged seen NEUROLOGICAL: Gross neurological examination did not reveal any focal deficits. SKIN: No rashes. Assessment and plan Paroxysmal atrial fibrillation with episodes of RVR, patient now in sinus rhythm Hypotension and sepsis with suspected osteo-myelitis of the left foot Diabetes mellitus type 2 History of cardiomyopathy Hypertension Dyslipidemia Chronic left heel wound. 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 culture were positive for Providencia, Proteus and MRSA for the patient has completed her antibiotic from 07/23/2022 until 09/03/2022 Because of positive blood culture, patient is on IV daptomycin Continue tramadol for pain Follow-up in ID recommendations Objective - Vital Signs Vital signs: Vital Signs Temp 97.1 F L 09/15/22 08:15 Pulse 71 09/15/22 08:15 Resp 18 09/15/22 08:15 BP 130/60 09/15/22 08:15 Pulse Ox 97 09/15/22 08:15 FiO2 21 09/15/22 07:40 Intake & Output 09/14/22 09/15/22 09/15/22 18:59 06:59 18:59 Intake Total 1010 1080 240 Output Total 1250 2050 Balance -240 -970 240 Intake: Oral 1010 1080 240 Output: Gastric Drainage 0 Urine 1250 0 Female - External 1825 Urine/Stool Mix 0 Oral Regurgitation 0 Other 0 Other: Voiding Method External Catheter External Catheter External Catheter # Voids 0 # Bowel Movements 0 - Labs CBC & Chem 7: 09/14/22 08:10 09/14/22 08:10 Labs: Abnormal Lab Results - Last 24 Hours (Table) 09/14/22 09/14/22 09/14/22 Range/Units 11:35 16:35 20:05 POC Glucose (mg/dL) 252 H 332 H 353 H (70-110) mg/dL Urine Appearance (Clear) Urine Glucose (UA) (Negative) Urine Blood (Negative) Ur Leukocyte Esterase (Negative) Urine RBC (0-5) /hpf Urine WBC (0-5) /hpf Urine Bacteria (None) /hpf Hyaline Casts (0-2) /lpf Urine Yeast (Budding) (None) /hpf 09/15/22 09/15/22 Range/Units 03:30 06:07 POC Glucose (mg/dL) 179 H (70-110) mg/dL Urine Appearance Cloudy H (Clear) Urine Glucose (UA) 4+ H (Negative) Urine Blood Large H (Negative) Ur Leukocyte Esterase Large H (Negative) Urine RBC 43 H (0-5) /hpf Urine WBC >182 H (0-5) /hpf Urine Bacteria Occasional H (None) /hpf Hyaline Casts 11 H (0-2) /lpf Urine Yeast (Budding) Many H (None) /hpf Microbiology - Last 24 Hours (Table) 09/10/22 01:12 Blood Culture Gram Stain - Final Blood Blood Culture - Final Bacillus species Not Anthracis
[2022-09-15 16:50] LABS: Glucose,Whole Blood 330 mg/dL (70-110)
[2022-09-15] MEDS: BUMETANIDE 1 MG TAB PO SCH (17:18)
[2022-09-15] MEDS: COLLAGENASE 250 UNIT/GM OINTMENT 30 GM TUBE TOPICAL SCH (17:20)
[2022-09-15] MEDS: SODIUM CHLORIDE 0.9% 1,000 ML IV SCH (17:23)
[2022-09-15 20:38] LABS: Glucose,Whole Blood 289 mg/dL (70-110)
[2022-09-16] MEDS: DILTIAZEM 125 MG in SODIUM CHLORIDE 0.9% 100 ML IV SCH ×2 (01:32→13:29)
[2022-09-16] MEDS: HYDROcodone/APAP 5-325MG 1 EACH TAB PO PRN ×4 (03:22→22:46)
[2022-09-16 06:20] LABS: Glucose,Whole Blood 177 mg/dL (70-110)
[2022-09-16] MEDS: oxyCODONE-APAP 5-325MG 1 EACH TAB PO PRN ×3 (06:35→18:37)
[2022-09-16] MEDS: MIDODRINE 5 MG TAB PO SCH ×2 (06:35→16:59)
[2022-09-16] MEDS: INSULIN DETEMIR (LEVEMIR) 100 UNIT/ML SYR SQ SCH ×2 (06:36→21:39)
[2022-09-16] MEDS: INSULIN ASPART (NovoLOG) 100 UNIT/ML VIAL SQ SCH ×4 (06:36→21:39)
[2022-09-16 07:09] LABS: Anisocytosis Slight; Basophils % (A) 0 %; Eosinophils % (A) 0 %; HCT 24.9 % (34.0-46.0); HGB 8.1 gm/dL (11.4-16.0); Hypochromasia Slight; Lymphocytes # (A) 0.7 k/uL (1.0-4.8); Lymphocytes % (A) 7 %; MCH 28.3 pg (25.0-35.0); MCHC 32.5 g/dL (31.0-37.0); Monocytes # (A) 0.3 k/uL (0-1.0); Monocytes % (A) 3 %; Neutrophils # (A) 8.4 k/uL (1.3-7.7); Neutrophils % (A) 88 %; Platelet Count 312 k/uL (150-450); Poikilocytosis Slight; RBC 2.86 m/uL (3.80-5.40); RDW 18.8 % (11.5-15.5); WBC 9.6 k/uL (3.8-10.6)
[2022-09-16] MEDS: SODIUM CHLORIDE 0.9% 1,000 ML IV SCH (08:08)
[2022-09-16 08:15] LABS: ALT 24 U/L (4-34); AST 28 U/L (14-36); African American GFR (CKD) 52 (>60 ml/min/1.73 sqM); Albumin 2.3 g/dL (3.5-5.0); Alkaline Phosphatase 89 U/L (38-126); Anion Gap 4 mmol/L; Blood Urea Nitrogen 56 mg/dL (7-17); Calcium 8.2 mg/dL (8.4-10.2); Carbon Dioxide 29 mmol/L (22-30); Chloride 99 mmol/L (98-107); Glucose 151 mg/dL (74-99); Non-African American GFR(CKD) 45 (>60 ml/min/1.73 sqM); Sodium 132 mmol/L (137-145); Total Bilirubin 0.5 mg/dL (0.2-1.3); Total Protein 4.8 g/dL (6.3-8.2)
[2022-09-16] MEDS: ESCITALOPRAM 10 MG TAB PO SCH (08:20)
[2022-09-16] MEDS: APIXABAN 5 MG TAB PO SCH ×2 (08:20→21:36)
[2022-09-16] MEDS: methylPREDNISolone SOD SUCCI 40 MG/ML 1 ML VIAL IV SCH ×2 (08:20→21:36)
[2022-09-16] MEDS: AMIODARONE 100 MG TAB PO SCH (08:20)
[2022-09-16] MEDS: COLLAGENASE 250 UNIT/GM OINTMENT 30 GM TUBE TOPICAL SCH (08:20)
[2022-09-16] MEDS: DAPAGLIFLOZIN PROPANEDIOL 10 MG TABLET PO SCH (08:20)
[2022-09-16] MEDS: SODIUM BICARBONATE TAB 650 MG TAB PO SCH ×2 (08:20→21:37)
[2022-09-16] MEDS: PANTOPRAZOLE 40 MG/10 ML VIAL IV SCH (08:20)
[2022-09-16] MEDS: NYSTATIN 100,000 UNIT/GM POWD 15 GM TOPICAL SCH ×2 (08:21→21:30)
--- NOTE | 2022-09-16 08:31 | P.PN ---
Subjective Progress Note Date: 09/16/22 This is a 76-year-old female who presented to the emergency department as a transfer from [facility] with concern for cellulitis of her right arm. Patient does have a history of chronic wounds of lower extremities. She resides at [facility]. She has a history of multiple ALLERGIES. Was re cently on IV antibiotics serial right upper extremity PICC line for infection in her left foot and developed a rash who presented to the [place] ER. Patient is unable to recall what antibiotic she was on. She is on vancomycin and cefepime currently. She has been hypotensive since admission. Further history as noted below 09/12/22 Patient is seen on medical floor today. Rash has improved. She did have a bone scan this morning. Blood sugars have been on the higher side, will adjust Lev amos dose. Blood pressures have stabilized. 09/16/22 Visit weekend patient had an episode of atrial fibrillation and was transferred to cardiac floor. She was put on a Cardizem drip which has since been stopped cardiology has signed off. She is maintained on IV daptomycin and infectious disease is following. Rash has improved. Objective - Vital Signs Vital signs: Vital Signs Temp 97.8 F 09/16/22 03:39 Pulse 79 09/16/22 03:39 Resp 16 09/16/22 03:39 BP 135/54 09/16/22 03:39 Pulse Ox 95 09/16/22 03:39 FiO2 21 09/15/22 07:40 Intake & Output 09/15/22 09/16/22 09/16/22 18:59 06:59 18:59 Intake Total 240 240 Output Total 1100 2775 Balance -860 -2775 240 Intake: Oral 240 240 Output: Urine 1100 2775 Female - External 2550 Other: Voiding Method External Catheter Indwelling Catheter # Voids 400 # Bowel Movements 1 - Constitutional General appearance: Present: cooperative, no acute distress - EENT Eyes: Present: PERRLA - Neck Neck: Present: normal ROM. Absent: lymphadenopathy, rigidity - Respiratory Respiratory: bilateral: CTA - Cardiovascular Heart sounds: normal: S1, S2 - Gastrointestinal General gastrointestinal: Present: soft. Absent: tenderness - Integumentary Integumentary Comment(s): Dressings dry and intact. - Musculoskeletal Musculoskeletal: Present: generalized weakness - Psychiatric Psychiatric: Present: A&O x's 3, appropriate affect, intact judgment & insight - Labs CBC & Chem 7: 09/16/22 06:56 09/16/22 06:56 Labs: Abnormal Lab Results - Last 24 Hours (Table) 09/15/22 09/15/22 09/15/22 Range/Units 12:02 16:49 20:35 RBC (3.80-5.40) m/uL Hgb (11.4-16.0) gm/dL Hct (34.0-46.0) % RDW (11.5-15.5) % Neutrophils # (1.3-7.7) k/uL Lymphocytes # (1.0-4.8) k/uL Sodium (137-145) mmol/L BUN (7-17) mg/dL Creatinine (0.52-1.04) mg/dL Glucose (74-99) mg/dL POC Glucose (mg/dL) 265 H 330 H 289 H (70-110) mg/dL Calcium (8.4-10.2) mg/dL Total Protein (6.3-8.2) g/dL Albumin (3.5-5.0) g/dL 09/16/22 09/16/22 09/16/22 Range/Units 06:19 06:56 06:56 RBC 2.86 L (3.80-5.40) m/uL Hgb 8.1 L (11.4-16.0) gm/dL Hct 24.9 L (34.0-46.0) % RDW 18.8 H (11.5-15.5) % Neutrophils # 8.4 H (1.3-7.7) k/uL Lymphocytes # 0.7 L (1.0-4.8) k/uL Sodium 132 L (137-145) mmol/L BUN 56 H (7-17) mg/dL Creatinine 1.17 H (0.52-1.04) mg/dL Glucose 151 H (74-99) mg/dL POC Glucose (mg/dL) 177 H (70-110) mg/dL Calcium 8.2 L (8.4-10.2) mg/dL Total Protein 4.8 L (6.3-8.2) g/dL Albumin 2.3 L (3.5-5.0) g/dL Microbiology - Last 24 Hours (Table) 09/10/22 01:22 Blood Culture - Final Blood 09/10/22 01:12 Blood Culture Gram Stain - Final Blood Blood Culture - Final Bacillus species Not Anthracis Assessment and Plan (1) Hypotension Current Visit: Yes Status: Acute Code(s): I95.9 - HYPOTENSION, UNSPECIFIED SNOMED Code(s): 09552620 (2) CKD (chronic kidney disease) Current Visit: No Status: Acute Code(s): N18.9 - CHRONIC KIDNEY DISEASE, UNSPECIFIED SNOMED Code(s): 582026225 (3) Diabetes Current Visit: No Status: Acute Code(s): E11.9 - TYPE 2 DIABETES MELLITUS WITHOUT COMPLICATIONS SNOMED Code(s): 20084537 (4) Chronic wound Current Visit: Yes Status: Acute Code(s): T14.8XXA - OTHER INJURY OF UNSPECIFIED BODY REGION, INITIAL ENCOUNTER SNOMED Code(s): 60766294440471 (5) Hyperlipidemia Current Visit: Yes Status: Acute Code(s): E78.5 - HYPERLIPIDEMIA, UN SPECIFIED SNOMED Code(s): 61103378 (6) History of atrial fibrillation Current Visit: Yes Status: Acute Code(s): Z86.79 - PERSONAL HISTORY OF OTHER DISEASES OF THE CIRCULATORY SYSTEM SNOMED Code(s): 683519569 (7) Rash Current Visit: Yes Status: Acute Code(s): R21 - RASH AND OTHER NONSPECIFIC SKIN ERUPTION SNOMED Code(s): 403916684 Plan: Await final recommendations from infectious disease regarding discharge antibiotics. Check CBC and CMP in the morning. Patient seen and evaluated by nurse practitioner, physician in agreement with plan
[2022-09-16] MEDS: IPRATROPIUM-ALBUTEROL 3 ML NEB INHALATION PRN ×2 (09:51→13:19)
[2022-09-16 11:41] LABS: Glucose,Whole Blood 278 mg/dL (70-110)
[2022-09-16] MEDS: BUMETANIDE 1 MG TAB PO SCH (15:47)
[2022-09-16 15:52] LABS: Glucose,Whole Blood 357 mg/dL (70-110)
[2022-09-16 20:16] LABS: Glucose,Whole Blood 340 mg/dL (70-110)
--- NOTE | 2022-09-16 20:23 | P.PN ---
Subjective Progress Note Date: 09/15/22 Principal diagnosis: Left hip wound consult for Osteomyelitis and rash Patient is a 76 year female who was admitted to [facility] and has been diagnosed with a left heel Osteomyelitis culture positive for Proteus Providencia and MRSA, the patient received vancomycin and meropenem at [facility] from 07/23/2022 until 09/03/2022 , Patient did develop a rash while on this and by therapy on 08/15/2022 that has been treated with the Benadryl and prednisone those were discontinued after the patient completed her antibiotic therapy and subsequently which have worsening of the rash and the patient was also noticed to be hypotensive with electrolyte abnormality for the patient was sent to [facility] On today's evaluation that is 09/15/2022 patient remains to be afebrile, the patient is breathing comfortably on room air, the patient denies any chest pain or shortness of breath or cough no abdominal pain and no diarrhea, the patient rash resolved Objective - Vital Signs Vital signs: Vital Signs Temp 97.1 F L 09/15/22 08:15 Pulse 72 09/15/22 15:40 Resp 18 09/15/22 08:15 BP 130/60 09/15/22 08:15 Pulse Ox 97 09/15/22 08:15 FiO2 21 09/15/22 07:40 Intake & Output 09/14/22 09/15/22 09/15/22 18:59 06:59 18:59 Intake Total 1010 1080 240 Output Total 1250 2050 1100 Balance -240 -970 -860 Intake: Oral 1010 1080 240 Output: Gastric Drainage 0 Urine 1250 2050 1100 Female - External 1825 Urine/Stool Mix 0 Oral Regurgitation 0 Other 0 Other: Voiding Method External Catheter External Catheter External Catheter # Voids 0 # Bowel Movements 0 - Exam GENERAL DESCRIPTION: An elderly female lying in bed in no distress RESPIRATORY SYSTEM: Unlabored breathing , decreased breath sounds at bases HEART: S1 S2 regular rate and rhythm , ABDOMEN: Soft , no tenderness EXTREMITIES: Left heel wound is currently dressed no drainage on dressing SKIN : Generalized micropapular rash especially to the upper torso - Labs CBC & Chem 7: 09/16/22 06:56 09/16/22 06:56 Labs: Abnormal Lab Results - Last 24 Hours (Table) 09/14/22 09/15/2223 Range/Units 20:05 03:30 06:07 POC Glucose (mg/dL) 353 H 179 H (70-110) mg/dL Urine Appearance Cloudy H (Clear) Urine Glucose (UA) 4+ H (Negative) Urine Blood Large H (Negative) Ur Leukocyte Esterase Large H (Negative) Urine RBC 43 H (0-5) /hpf Urine WBC >182 H (0-5) /hpf Urine Bacteria Occasional H (None) /hpf Hyaline Casts 11 H (0-2) /lpf Urine Yeast (Budding) Many H (None) /hpf 09/15/22 Range/Units 12:02 POC Glucose (mg/dL) 265 H (70-110) mg/dL Urine Appearance (Clear) Urine Glucose (UA) (Negative) Urine Blood (Negative) Ur Leukocyte Esterase (Negative) Urine RBC (0-5) /hpf Urine WBC (0-5) /hpf Urine Bacteria (None) /hpf Hyaline Casts (0-2) /lpf Urine Yeast (Budding) (None) /hpf Microbiology - Last 24 Hours (Table) 09/10/22 01:22 Blood Culture - Final Blood 09/10/22 01:12 Blood Culture Gram Stain - Final Blood Blood Culture - Final Bacillus species Not Anthracis Assessment and Plan (1) Rash Current Visit: Yes Status: Acute Code(s): R21 - RASH AND OTHER NONSPECIFIC SKIN ERUPTION SNOMED Code(s): 187901017 (2) Pressure ulcer of left heel, stage 4 Current Visit: Yes Status: Acute Code(s): L89.624 - PRESSURE ULCER OF LEFT HEEL, STAGE 4 SNOMED Code(s): 08473611464728 Plan: 1patient with a chronic nonhealing wound to the left heel area 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 culture were positive for Pro videncia, Proteus and MRSA for the patient has completed her antibiotic from 07/23/2022 until 09/03/2022 now presented to hospital with hypotension rash-- it is more likely drug related, patient left lower extremity wound seemed to be healing well however the x-rays were reported to have some abnormality 2- Patient did have a mildly elevated sed rate of 28 bone scan was positive however the patient seem to have shown overall improvement as far as left heel wound is concerned , We will review the scan and the x-ray with the radiologist tomorrow morning for now continue the patient on daptomycin and monitor clinical course closely Time with Patient: Less than 30
--- NOTE | 2022-09-16 20:25 | P.PN ---
Subjective Progress Note Date: 09/16/22 Principal diagnosis: Left hip wound consult for Osteomyelitis and rash Patient is a 76 year female who was admitted to [facility] and has been diagnosed with a left heel Osteomyelitis culture positive for Proteus Providencia and MRSA, the patient received vancomycin and meropenem at [facility] from 07/23/2022 until 09/03/2022 , Patient did develop a rash while on this and by therapy on 08/15/2022 that has been treated with the Benadryl and prednisone those were discontinued after the patient completed her antibiotic therapy and subsequently which have worsening of the rash and the patient was also noticed to be hypotensive with electrolyte abnormality for the patient was sent to [facility] On today's evaluation that is 09/16/2022 patient denies any fever or any chills, the patient is breathing comfortably on room air, the patient denies any chest pain or shortness of breath or cough, the patient denies having any nausea no vomiting no abdominal pain and no diarrhea, the patient rash almost resolved Objective - Vital Signs Vital signs: Vital Signs Temp 98.2 F 09/16/22 08:15 Pulse 62 09/16/22 10:11 Resp 18 09/16/22 08:15 BP 129/68 09/16/22 08:15 Pulse Ox 99 09/16/22 09:54 FiO2 21 09/15/22 07:40 Intake & Output 09/15/22 09/16/22 09/16/22 18:59 06:59 18:59 Intake Total 240 240 Output Total 1100 2775 450 Balance -860 -2775 -210 Intake: Oral 240 240 Output: Urine 1100 2775 450 Female - External 2550 Other: Voiding Method External Catheter Indwelling Catheter Indwelling Catheter # Voids 400 # Bowel Movements 1 - Exam GENERAL DESCRIPTION: An elderly female lying in bed in no distress RESPIRATORY SYSTEM: Unlabored breathing , decreased breath sounds at bases HEART: S1 S2 regular rate and rhythm , ABDOMEN: Soft , no tenderness EXTREMITIES: Left heel wound is currently dressed no drainage on dressing SKIN : Generalized micropapular rash especially to the upper torso - Labs CBC & Chem 7: 09/16/22 06:56 09/16/22 06:56 Labs: Abnormal Lab Results - Last 24 Hours (Table) 09/15/22 09/15/22 09/16/22 Range/Units 16:49 20:35 06:19 RBC (3.80-5.40) m/uL Hgb (11.4-16.0) gm/dL Hct (34.0-46.0) % RDW (11.5-15.5) % Neutrophils # (1.3-7.7) k/uL Lymphocytes # (1.0-4.8) k/uL Sodium (137-145) mmol/L BUN (7-17) mg/dL Creatinine (0.52-1.04) mg/dL Glucose (74-99) mg/dL POC Glucose (mg/dL) 330 H 289 H 177 H (70-110) mg/dL Calcium (8.4-10.2) mg/dL Total Protein (6.3-8.2) g/dL Albumin (3.5-5.0) g/dL 09/16/22 09/16/22 09/16/22 Range/Units 06:56 06:56 11:40 RBC 2.86 L (3.80-5.40) m/uL Hgb 8.1 L (11.4-16.0) gm/dL Hct 24.9 L (34.0-46.0) % RDW 18.8 H (11.5-15.5) % Neutrophils # 8.4 H (1.3-7.7) k/uL Lymphocytes # 0.7 L (1.0-4.8) k/uL Sodium 132 L (137-145) mmol/L BUN 56 H (7-17) mg/dL Creatinine 1.17 H (0.52-1.04) mg/dL Glucose 151 H (74-99) mg/dL POC Glucose (mg/dL) 278 H (70-110) mg/dL Calcium 8.2 L (8.4-10.2) mg/dL Total Protein 4.8 L (6.3-8.2) g/dL Albumin 2.3 L (3.5-5.0) g/dL Microbiology - Last 24 Hours (Table) 09/10/22 01:22 Blood Culture - Final Blood 09/10/22 01:12 Blood Culture Gram Stain - Final Blood Blood Culture - Final Bacillus species Not Anthracis Assessment and Plan (1) Rash Current Visit: Yes Status: Acute Code(s): R21 - RASH AND OTHER NONSPECIFIC SKIN ERUPTION SNOMED Code(s): 001020022 (2) Pressure ulcer of left heel, stage 4 Current Visit: Yes Status: Acute Code(s): L89.624 - PRESSURE ULCER OF LEFT HEEL, STAGE 4 SNOMED Code(s): 31620886603367 Plan: 1patient with a chronic nonhealing wound to the left heel area 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 culture were positive for Providencia, Proteus and MRSA for the patient has completed her antibiotic from 07/23/2022 until 09/03/2022 now presented to hospital with hypotension rash-- it is more likely drug related, patient left lower extremity wound seemed to be healing well however the x-rays were reported to have some abnormality 2- Patient did have a mildly elevated sed rate of 28 bone scan was positive however the patient seem to have shown overall improvement as far as left heel wound is concerned , Bone scan and the x-ray were reviewed with Dr Ruth , osteomyelitis not entirely excluded, patient seemed to have shown clinical response to the daptomycin which will be continued and continue on discharge Time with Patient: Less than 30
[2022-09-17] MEDS: oxyCODONE-APAP 5-325MG 1 EACH TAB PO PRN ×3 (01:06→16:19)
[2022-09-17 06:06] LABS: Glucose,Whole Blood 270 mg/dL (70-110)
[2022-09-17] MEDS: INSULIN ASPART (NovoLOG) 100 UNIT/ML VIAL SQ SCH ×3 (06:57→16:53)
[2022-09-17] MEDS: MIDODRINE 5 MG TAB PO SCH ×2 (06:57→16:22)
[2022-09-17] MEDS: HYDROcodone/APAP 5-325MG 1 EACH TAB PO PRN ×2 (06:57→15:02)
[2022-09-17] MEDS: INSULIN DETEMIR (LEVEMIR) 100 UNIT/ML SYR SQ SCH (07:00)
[2022-09-17] MEDS: DILTIAZEM 125 MG in SODIUM CHLORIDE 0.9% 100 ML IV SCH ×2 (07:14→14:59)
[2022-09-17] MEDS: SODIUM CHLORIDE 0.9% 1,000 ML IV SCH (07:40)
[2022-09-17] MEDS: DAPAGLIFLOZIN PROPANEDIOL 10 MG TABLET PO SCH (07:46)
[2022-09-17] MEDS: APIXABAN 5 MG TAB PO SCH (07:49)
[2022-09-17] MEDS: SODIUM BICARBONATE TAB 650 MG TAB PO SCH (07:49)
[2022-09-17] MEDS: methylPREDNISolone SOD SUCCI 40 MG/ML 1 ML VIAL IV SCH (07:49)
[2022-09-17] MEDS: PANTOPRAZOLE 40 MG/10 ML VIAL IV SCH (07:49)
[2022-09-17] MEDS: AMIODARONE 100 MG TAB PO SCH ×2 (07:49→07:52)
[2022-09-17] MEDS: ESCITALOPRAM 10 MG TAB PO SCH (07:51)
[2022-09-17] MEDS: COLLAGENASE 250 UNIT/GM OINTMENT 30 GM TUBE TOPICAL SCH (07:51)
[2022-09-17] MEDS: NYSTATIN 100,000 UNIT/GM POWD 15 GM TOPICAL SCH (07:51)
--- NOTE | 2022-09-17 08:29 | P.DS ---
Providers Date of admission: 09/09/22 20:17 Attending physician: Luis Shirley Consults: 09/09/22 20:17 Consult Physician Stat Consulting Provider: Jarod Hernandez Consult Reason/Comments: critical care Do you want consulting provider notified?: Yes 09/09/22 23:39 Consult Physician Urgent Consulting Provider: Jenae Bowman Consult Reason/Comments: Possible osteomyelitis Do you want consulting provider notified?: Yes, Notify in am 09/12/22 12:16 Consult Physician Routine Consulting Provider: Yifan Guillen Consult Reason/Comments: Afib with occasional RVR Do you want consulting provider notified?: Yes Primary care physician: Luis Shirley - Discharge Diagnosis(es) (1) Hypotension Current Visit: Yes Status: Acute (2) CKD (chronic kidney disease) Current Visit: No Status: Acute (3) Diabetes Current Visit: No Status: Acute (4) Chronic wound Current Visit: Yes Status: Acute (5) Hyperlipidemia Current Visit: Yes Status: Acute (6) History of atrial fibrillation Current Visit: Yes Status: Acute (7) Rash Current Visit: Yes Status: Acute Hospital Course: This is a 76-year-old female who was a transfer to the emergency department from [facility] over concerns for cellulitis of her right arm. Patient does have a history of chronic wounds of the lower extremities. She resides at [facility]. History of multiple medication ALLERGIES. She developed a rash after recent antibiotic use but was unable to recall what antibiotic she was on. On admission she was hypotensive, blood pressure has now stabilized. Bone scans done on lower extremities, cannot exclude osteomyelitis. Infectious disease has recommended daptomycin for discharge. Patient is stable for discharge back to [facility] [place], she will remain on daptomycin. Patient seen and evaluated by nurse practitioner, physician in agreement with plan Plan - Discharge Summary Discharge Rx Participant: No New Discharge Prescriptions: New oxyCODONE-APAP 5-325MG [Percocet 5-325 mg] 1 each PO Q6HR PRN #0 tab PRN Reason: Pain DAPTOmycin [Cubicin] 400 mg IVPB Q24HR@1600 14 Days #14 each Continue Escitalopram [Lexapro] 10 mg PO DAILY Tamsulosin [Flomax] 0.4 mg PO DAILY@1700 Spironolactone 25 mg PO DAILY Multivitamins, Thera [Multivitamin (formulary)] 1 tab PO DIRECTED Calcium Carbonate [Tums] 1,000 mg PO Q4H PRN PRN Reason: Gi Upset bisacodyL [Correctol] 10 mg PO DAILY PRN PRN Reason: Constipation oxyCODONE HCL [OxyIR] 5 mg PO Q4H Ipratropium [place] [Atrovent Hfa] 2 puff INHALATION RT-QID 0.9 % Sodium Chloride [Sodium Chloride Flush] 10 ml IV BID Insulin Glargine-Yfgn [Semglee (Yfgn) Pen] 5 units SQ DAILY Bumetanide [BUMEX] 2 mg PO DAILY@1500 L.acidoph,Paracasei, B.lactis [Probiotic] 1 cap PO DAILY Apixaban [Eliquis] 5 mg PO BID Dapagliflozin Propanediol [Farxiga] 10 mg PO DAILY Atorvastatin [Lipitor] 20 mg PO HS@2100 Sacubitril/Valsartan [Entresto 24 mg-26 mg Tablet] 1 tab PO BID@0900,1700 Amiodarone [Cordarone] 100 mg PO DAILY@0900 Magnesium Hydroxide [Milk of Magnesia] 2,400 mg PO Q8H PRN PRN Reason: Constipation Metoprolol Tartrate [Lopressor] 25 mg PO BID@0900,1700 Omeprazole [PriLOSEC] 20 mg PO DAILY@0600 Albuterol Sulfate [Ventolin HFA] 2 puff INHALATION RT-Q4H PRN PRN Reason: Shortness Of Breath ALPRAZolam [Xanax] 0.5 mg PO Q8H PRN PRN Reason: Anxiety Acetaminophen [Tylenol 8 Hour] 650 mg PO Q6H PRN PRN Reason: Pain Ammonium Lactate Cream [Lac-Hydrin 12% Cream] 1 applic TOPICAL BID Insulin Glargine-Yfgn [Semglee (Yfgn) Pen] 10 units SQ HS Fluconazole [Diflucan] 100 mg PO DAILY Discharge Medication List Apixaban [Eliquis] 5 mg PO BID 08/13/20 [History] Atorvastatin [Lipitor] 20 mg PO HS@2100 01/12/22 [History] Dapagliflozin Propanediol [Farxiga] 10 mg PO DAILY 01/12/22 [History] Sacubitril/Valsartan [Entresto 24 mg-26 mg Tablet] 1 tab PO BID@0900,1700 01/12/22 [History] Amiodarone [Cordarone] 100 mg PO DAILY@0900 03/05/22 [History] Escitalopram [Lexapro] 10 mg PO DAILY 03/05/22 [History] Magnesium Hydroxide [Milk of Magnesia] 2,400 mg PO Q8H PRN 03/05/22 [History] Metoprolol Tartrate [Lopressor] 25 mg PO BID@0900,1700 03/05/22 [History] Omeprazole [PriLOSEC] 20 mg PO DAILY@0600 03/05/22 [History] Tamsulosin [Flomax] 0.4 mg PO DAILY@1700 03/05/22 [History] Albuterol Sulfate [Ventolin HFA] 2 puff INHALATION RT-Q4H PRN 06/17/22 [History] Calcium Carbonate [Tums] 1,000 mg PO Q4H PRN 06/17/22 [History] Multivitamins, Thera [Multivitamin (formulary)] 1 tab PO DIRECTED 06/17/22 [History] Spironolactone 25 mg PO DAILY 06/17/22 [History] 0.9 % Sodium Chloride [Sodium Chloride Flush] 10 ml IV BID 09/09/22 [History] ALPRAZolam [Xanax] 0.5 mg PO Q8H PRN 09/09/22 [History] Acetaminophen [Tylenol 8 Hour] 650 mg PO Q6H PRN 09/09/22 [History] Ammonium Lactate Cream [Lac-Hydrin 12% Cream] 1 applic TOPICAL BID 09/09/22 [History] Bumetanide [BUMEX] 2 mg PO DAILY@1500 09/09/22 [History] Fluconazole [Diflucan] 100 mg PO DAILY 09/09/22 [History] Insulin Glargine-Yfgn [Semglee (Yfgn) Pen] 5 units SQ DAILY 09/09/22 [History] Insulin Glargine-Yfgn [Semglee (Yfgn) Pen] 10 units SQ HS 09/09/22 [History] Ipratropium [place] [Atrovent Hfa] 2 puff INHALATION RT-QID 09/09/22 [History] L.acidoph,Paracasei, B.lactis [Probiotic] 1 cap PO DAILY 09/09/22 [History] bisacodyL [Correctol] 10 mg PO DAILY PRN 09/09/22 [History] oxyCODONE HCL [OxyIR] 5 mg PO Q4H 09/09/22 [History] DAPTOmycin [Cubicin] 400 mg IVPB Q24HR@1600 14 Days #14 each 09/17/22 [Rx] oxyCODONE-APAP 5-325MG [Percocet 5-325 mg] 1 each PO Q6HR PRN #0 tab 09/17/22 [Rx] Follow up Appointment(s)/Referral(s): Luis Shirley MD [Primary Care Provider] - 1-2 days Discharge Disposition: TRANSFER TO SNF/ECF
[2022-09-17 08:57] LABS: Anisocytosis Slight; HCT 25.3 % (34.0-46.0); HGB 8.2 gm/dL (11.4-16.0); Hypochromasia Slight; MCH 28.5 pg (25.0-35.0); MCHC 32.4 g/dL (31.0-37.0); Mean Platelet Volume 7.4; Platelet Count 336 k/uL (150-450); Poikilocytosis Slight; RBC 2.88 m/uL (3.80-5.40)
[2022-09-17 09:12] LABS: ALT 26 U/L (4-34); AST 29 U/L (14-36); African American GFR (CKD) 49 (>60 ml/min/1.73 sqM); Albumin 2.4 g/dL (3.5-5.0); Alkaline Phosphatase 94 U/L (38-126); Anion Gap 4 mmol/L; Blood Urea Nitrogen 58 mg/dL (7-17); C Reactive Protein 1.4 mg/dL (<1.0); Calcium 8.1 mg/dL (8.4-10.2); Carbon Dioxide 30 mmol/L (22-30); Chloride 97 mmol/L (98-107); Glucose 226 mg/dL (74-99); Non-African American GFR(CKD) 42 (>60 ml/min/1.73 sqM); Potassium 4.4 mmol/L (3.5-5.1); Sodium 131 mmol/L (137-145); Total Bilirubin 0.5 mg/dL (0.2-1.3); Total Protein 4.7 g/dL (6.3-8.2)
[2022-09-17 11:39] LABS: Glucose,Whole Blood 224 mg/dL (70-110)
--- NOTE | 2022-09-17 11:59 | P.PN ---
Subjective Progress Note Date: 09/17/22 Principal diagnosis: Left hip wound consult for Osteomyelitis and rash Patient is a 76 year female who was admitted to [facility] and has been diagnosed with a left heel Osteomyelitis culture positive for Proteus Providencia and MRSA, the patient received vancomycin and meropenem at [facility] from 07/23/2022 until 09/03/2022 , Patient did develop a rash while on this and by therapy on 08/15/2022 that has been treated with the Benadryl and prednisone those were discontinued after the patient completed her antibiotic therapy and subsequently which have worsening of the rash and the patient was also noticed to be hypotensive with electrolyte abnormality for the patient was sent to [facility], patient blood culture done at outside facility on 09/09/2022 came back positive for VRE and MRSA On today's evaluation that is 09/17/2022 patient denies any fever or any chills, the patient is breathing comfortably on room air, the patient denies chest pain or shortness of breath or cough, the patient denies having any nausea no vomiting no abdominal pain and no diarrhea, patient is feeling better no new symptoms Objective - Vital Signs Vital signs: Vital Signs Temp 98.1 F 09/17/22 07:46 Pulse 63 09/17/22 07:46 Resp 20 09/17/22 07:46 BP 156/76 09/17/22 07:46 Pulse Ox 95 09/17/22 09:34 FiO2 21 09/15/22 07:40 Intake & Output 09/16/22 09/17/22 09/17/22 18:59 06:59 18:59 Intake Total 1200 240 Output Total 1500 2550 650 Balance -300 -2550 -410 Intake: Oral 1200 240 Output: Urine 1500 2550 650 Other: Voiding Method Indwelling Catheter Indwelling Catheter Indwelling Catheter - Exam GENERAL DESCRIPTION: An elderly female lying in bed in no distress RESPIRATORY SYSTEM: Unlabored breathing , decreased breath sounds at bases HEART: S1 S2 regular rate and rhythm , ABDOMEN: Soft , no tenderness EXTREMITIES: Left heel wound is currently dressed no drainage on dressing SKIN : Generalized micropapular rash especially to the upper torso - Labs CBC & Chem 7: 09/17/22 08:34 09/17/22 08:34 Labs: Abnormal Lab Results - Last 24 Hours (Table) 09/16/22 09/16/22 09/16/22 Range/Units 11:40 15:50 20:15 RBC (3.80-5.40) m/uL Hgb (11.4-16.0) gm/dL Hct (34.0-46.0) % RDW (11.5-15.5) % Sodium (137-145) mmol/L Chloride (98-107) mmol/L BUN (7-17) mg/dL Creatinine (0.52-1.04) mg/dL Glucose (74-99) mg/dL POC Glucose (mg/dL) 278 H 357 H 340 H (70-110) mg/dL Calcium (8.4-10.2) mg/dL C-Reactive Protein (<1.0) mg/dL Total Protein (6.3-8.2) g/dL Albumin (3.5-5.0) g/dL 09/17/22 09/17/22 09/17/22 Range/Units 06:03 08:34 08:34 RBC 2.88 L (3.80-5.40) m/uL Hgb 8.2 L (11.4-16.0) gm/dL Hct 25.3 L (34.0-46.0) % RDW 19.0 H (11.5-15.5) % Sodium 131 L (137-145) mmol/L Chloride 97 L (98-107) mmol/L BUN 58 H (7-17) mg/dL Creatinine 1.23 H (0.52-1.04) mg/dL Glucose 226 H (74-99) mg/dL POC Glucose (mg/dL) 270 H (70-110) mg/dL Calcium 8.1 L (8.4-10.2) mg/dL C-Reactive Protein 1.4 H (<1.0) mg/dL Total Protein 4.7 L (6.3-8.2) g/dL Albumin 2.4 L (3.5-5.0) g/dL Assessment and Plan (1) Rash Current Visit: Yes Status: Acute Code(s): R21 - RASH AND OTHER NONSPECIFIC SKIN ERUPTION SNOMED Code(s): 451966818 (2) Pressure ulcer of left heel, stage 4 Current Visit: Yes Status: Acute Code(s): L89.624 - PRESSURE ULCER OF LEFT HEEL, STAGE 4 SNOMED Code(s): 24258405504077 Plan: 1patient with a chronic nonhealing wound to the left heel area 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 culture were positive for Providencia, Proteus and MRSA for the patient has completed her antibiotic from 07/23/2022 until 09/03/2022 now presented to hospital with hypotension rash-- it is more likely drug related, patient left lower extremity wound seemed to be healing well however the x-rays were reported to have some abnormality 2- Patient did have a mildly elevated sed rate of 28 bone scan was positive however the patient seem to have shown overall improvement as far as left heel wound is concerned , Bone scan and the x-ray were reviewed with Dr Ruth , osteomyelitis not entirely excluded, patient also have a positive blood culture at the outside facility drawn on 09/09/2022 that did grew MRSA and VRE that was faxed to us last night blood culture done here did shows Bacilus species is likely contamination and the patient repeat blood cultures has been negative we will plan on daptomycin 6mg/kg daily for 6 weeks and close outpatient follow-up Time with Patient: Less than 30
[2022-09-17] MEDS: BUMETANIDE 1 MG TAB PO SCH (15:03)
[2022-09-17 16:28] LABS: Glucose,Whole Blood 230 mg/dL (70-110)
[2022-09-17] MEDS: IPRATROPIUM-ALBUTEROL 3 ML NEB INHALATION PRN (16:39)
[2022-09-17 16:41] VITALS: RESP 16
[2022-09-17 17:16] VITALS: BP 140/68; PULSE 73; TEMP 97.8
== END 2022-09-17 18:40 | DRG 871 ==
LOC: EC 19:35 → 2SICU 20:17 → 5NMEDONC 09-11 22:34 → 3SCARD 09-12 17:30
PROVIDERS: ADMIT Family Medicine; ATTEND Family Medicine
DX: A41.9 Sepsis, unspecified organism (principal); L89.624 Pressure ulcer of left heel, stage 4; I42.9 Cardiomyopathy, unspecified; M86.8X7 Other osteomyelitis, ankle and foot; D63.8 Anemia in other chronic diseases classified elsewhere; E11.22 Type 2 diabetes mellitus with diabetic chronic kidney disease; E11.621 Type 2 diabetes mellitus with foot ulcer; E11.622 Type 2 diabetes mellitus with other skin ulcer; E11.69 Type 2 diabetes mellitus with other specified complication; E78.5 Hyperlipidemia, unspecified; F41.9 Anxiety disorder, unspecified; I48.0 Paroxysmal atrial fibrillation; L89.892 Pressure ulcer of other site, stage 2; L97.509 Non-pressure chronic ulcer of other part of unspecified foot with unspecified severity; N18.30 Chronic kidney disease, stage 3 unspecified; T36.8X5A Adverse effect of other systemic antibiotics, initial encounter; L89.102 Pressure ulcer of unspecified part of back, stage 2; I25.10 Atherosclerotic heart disease of native coronary artery without angina pectoris; I12.9 Hypertensive chronic kidney disease with stage 1 through stage 4 chronic kidney disease, or unspecified chronic kidney disease; I25.2 Old myocardial infarction; Z74.01 Bed confinement status; Z79.01 Long term (current) use of anticoagulants; Z79.4 Long term (current) use of insulin; Z79.84 Long term (current) use of oral hypoglycemic drugs; Z79.899 Other long term (current) drug therapy; Z80.1 Family history of malignant neoplasm of trachea, bronchus and lung; Z82.49 Family history of ischemic heart disease and other diseases of the circulatory system; Z86.16 Personal history of COVID-19; Z86.718 Personal history of other venous thrombosis and embolism; Z86.73 Personal history of transient ischemic attack (TIA), and cerebral infarction without residual deficits; Z90.710 Acquired absence of both cervix and uterus; Z88.8 Allergy status to other drugs, medicaments and biological substances; Z91.040 Latex allergy status; Z88.5 Allergy status to narcotic agent; Z91.013 Allergy to seafood
CPT/HCPCS: 71045; 78315; 80048; 80053; 81001; 83605; 83735; 84100; 84145; 85025; 85027; 85652; 86140; 86850; 86900; 86901; 87040; 94640; 94760; 96365; 99291

== ENCOUNTER → 2023-05-13 | Outpatient (CLI) | payer MEDICARE, OTHER ==
--- NOTE | 2023-05-13 16:08 | US ---
EXAMINATION TYPE: US venous doppler duplex UE LT DATE OF EXAM: 05/13/2023 COMPARISON: CT cervical spine 01/12/2022. CLINICAL INDICATION: Female, 77 years old with history of R22.32 LOCALIZED SWELLING, MASS AND LUMP, L EFT UPP; Hx of DVT. Pain and swelling x 1 week. Patient takes eliquis. SIDE PERFORMED: Left Left Arm: No evidence of DVT. Left IJV appears diminutive in size. The diminutive left internal jugular vein appears to be a chronic finding, also present on the patien t's prior CT cervical spine 01/12/2022. IMPRESSION: 1. 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 2. Otherwise, no evidence for DVT within the left upper terminate.
== END | disposition home or self-care (01) ==
LOC: RADUSWWP 15:01
PROVIDERS: ATTEND Family Medicine
DX: R22.32 Localized swelling, mass and lump, left upper limb (principal); Z86.718 Personal history of other venous thrombosis and embolism; M79.642 Pain in left hand

== ENCOUNTER 2023-05-30 16:56 | Inpatient (IN) | payer MEDICARE, OTHER ==
--- NOTE | 2023-05-30 17:59 | ED ---
General Adult HPI - General Source: patient, family, EMS Mode of arrival: EMS Limitations: physical limitation <Miguel A Sampson - Last Filed: 05/30/23 21:22> <Charito Bobo - Last Filed: 05/31/23 01:14> - General Chief complaint: Chest Pain Stated complaint: Chest Pain Time Seen by Provider: 05/30/23 17:03 - History of Present Illness Initial comments: Dictation was produced using [employer] dictation software. please excuse any grammatical, word or spelling errors. Chief Complaint: 77-year-old female presents to the emergency department for chest pressure nausea and vomiting History of Present Illness: Patient 77-year-old female presents to the emergency department for chest pressure. She states that it is lower substernal. Nonradiating. Not associated diaphoresis but associate with nausea. Patient does have history of cardiac disease. States that she had a cardiac cath over a year ago which was negative. Patient was given some nitroglycerin which improved her symptoms slightly. Patient does still complain of some ongoing chest pressure but not as severe as initially. The ROS documented in this emergency department record has been reviewed and confirmed by me. Those systems with pertinent positive or negative responses have been documented in the HPI. All other systems are other negative and/or noncontributory. (Miguel A Sampson) - Related Data Home Medications Medication Instructions Recorded Confirmed Apixaban [Eliquis] 5 mg PO BID 08/13/20 05/30/23 Sacubitril/Valsartan [Entresto 24 1 tab PO BID 01/12/22 05/30/23 mg-26 mg Tablet] Omeprazole [PriLOSEC] 20 mg PO DAILY 03/05/22 05/30/23 Bumetanide [BUMEX] 2 mg PO DAILY 09/09/22 05/30/23 Ipratropium [place] [Atrovent Hfa] 2 puff INHALATION RT-QID 09/09/22 05/30/23 ALPRAZolam [Xanax] 0.25 mg PO TID 05/30/23 05/30/23 Amiodarone [Cordarone] 100 mg PO DAILY 05/30/23 05/30/23 Ammonium Lactate Lotion 1 applic TOPICAL BID PRN 05/30/23 05/30/23 [Lac-Hydrin 12% Lotion] Ascorbic Acid [Vitamin C with Samina 1,000 mg PO DAILY 05/30/23 05/30/23 Hips] Aspirin 81 mg PO DAILY 05/30/23 05/30/23 Atorvastatin [Lipitor] 20 mg PO DAILY 05/30/23 05/30/23 Cholecalciferol [Vitamin D3 (25 25 mcg PO DAILY 05/30/23 05/30/23 Mcg = 1000 Iu)] Escitalopram [Lexapro] 10 mg PO DAILY 05/30/23 05/30/23 Furosemide [Lasix] 60 mg PO BID 05/30/23 05/30/23 Insulin Aspart [NovoLOG Flexpen] See Protocol SQ AC-TID 05/30/23 05/30/23 Insulin Glargine,Hum.rec.anlog 15 units SQ HS 05/30/23 05/30/23 [Toujeo Max Solostar] Insulin Glargine,Hum.rec.anlog 24 units SQ DAILY 05/30/23 05/30/23 [Toujeo Max Solostar] Multivit-Min/FA/Lycopen/Lutein 1 tab PO DAILY 05/30/23 05/30/23 [Centrum Silver Tablet] Nystatin [Nystop] 1 applic TOPICAL TUTH 05/30/23 05/30/23 Potassium Chloride ER [K-Dur 20] 20 meq PO DAILY 05/30/23 05/30/23 SILVER sulfADIAZINE Cream 1 applic TOPICAL TUTH 05/30/23 05/30/23 [Silvadene 1% Cream] Allergies Allergy/AdvReac Type Severity Reaction Status Date / Time shellfish derived [Shellfish] Allergy Severe vomiting Verified 05/30/23 22:07 -very ill adhesive Allergy skin red Verified 05/30/23 22:07 and murguia, tears skin aluminum Allergy skin turns Verified 05/30/23 22:07 black, passes out Antihistamines - Allergy heart Verified 05/30/23 22:07 Ethylenediamine palpitations codeine Allergy migraines Verified 05/30/23 22:07 epinephrine Allergy heart Verified 05/30/23 22:07 palpitations fluticasone [From Flonase] Allergy Unknown Verified 05/30/23 22:07 hydrogen peroxide Allergy murguia and Verified 05/30/23 22:07 causes infection latex Allergy passes out Verified 05/30/23 22:07 lidocaine Allergy gtts in Verified 05/30/23 22:07 eyes and passed out nickel Allergy turns skin Verified 05/30/23 22:07 black and passes out procaine HCl [From Novocain] Allergy passed Verified 05/30/23 22:07 out- due to epinephrine in it. thiopental sodium Allergy needed cpr Verified 05/30/23 22:07 [From Pentothal] resusitation methocarbamol [From Robaxin] AdvReac Hallucinati Verified 05/30/23 22:07 ons surgical felicita Allergy Severe had to be Uncoded 05/30/23 22:07 removed 2 days post-op petroleum products AdvReac passes out Uncoded 05/30/23 22:07 or does not feel well. (diesel, oils) Review of Systems ROS Other: All systems not noted in ROS Statement are negative. <Miguel A Sampson D - Last Filed: 05/30/23 21:22> ROS Other: All systems not noted in ROS Statement are negative. <Charito Bobo P - Last Filed: 05/31/23 01:14> ROS Statement: Those systems with pertinent positive or pertinent negative responses have been documented in the HPI. Past Medical History Past Medical History: Atrial Fibrillation, Coronary Artery Disease (CAD), CVA/TIA, Diabetes Mellitus, Deep Vein Thrombosis (DVT), Hypertension, Myocardial Infarction (HI), Osteoarthritis (OA) Additional Past Medical History / Comment(s): hx tia, hx stroke behind left eye., lt eye macular , states hospitalized with Covid April 2019 with life support and stage 3 kidney failure., hx of fall with hip fx and surgery 01/13/22 and residing at [facility] for Rehab- no wt bearing, DVT during ., varicose veins, states painful sore left heel., hx of t.b. as a child with scarring on lungs. Last Myocardial Infarction Date:: unknown date History of Any Multi-Drug Resistant Organisms: MRSA, VRE Date of last positivie culture/infection: 09/09/22 MRSA & VRE ([facility]-Scanned) MDRO Source:: Blood Culture Past Surgical History: Adenoidectomy, Hysterectomy, Orthopedic Surgery, Tonsillectomy, Tubal Ligation Additional Past Surgical History / Comment(s): pilonidal cyst twice as child, rt knee arthroscopy, krystyna cataracts, krystyna great toe sx, ORIF Left hip (01/13/22) Past Anesthesia/Blood Transfusion Reactions: Previous Problems w/ Anesthesia, Postoperative Nausea & Vomiting (PONV) Additional Past Anesthesia/Blood Transfusion Reaction / Comment(s): difficulty waking up after sx. clausterphobia. 1961 blood transfusion(during child ) pt stated had palpitations after 2nd unit given Past Psychological History: Anxiety Smoking Status: Never smoker Past Alcohol Use History: None Reported Past Drug Use History: None Reported - Past Family History Mother Family Medical History: Cancer Additional Family Medical History / Comment(s): lung cancer Father Family Medical History: Coronary Artery Disease (CAD) Additional Family Medical History / Comment(s): heart disease, kidney disese <Miguel A Sampson - Last Filed: 05/30/23 21:22> General Exam Limitations: physical limitation <Miguel A Sampson - Last Filed: 05/30/23 21:22> - General Exam Comments Initial Comments: PHYSICAL EXAM: General Impression: Alert and oriented x3, not in acute distress HEENT: Normocephalic atraumatic, extra-ocular movements intact, pupils equal and reactive to light bilaterally, mucous membranes moist. Cardiovascular: Heart regular rate and rhythm Chest: Able to complete full sentences, no retractions, no tachypnea Abdomen: abdomen soft, non-tender, non-distended, no organomegaly Musculoskeletal: Pulses present and equal in all extremities, no peripheral edema Motor: no focal deficits noted Neurological: CN II-XII grossly intact, no focal motor or sensory deficits noted Skin: Intact with no visualized rashes Psych: Normal affect and mood (Miguel A Sampson) Course Vital Signs 05/30/23 05/30/23 05/30/23 17:08 17:26 17:30 Temperature 98.6 F Pulse Rate 72 74 78 Respiratory 7 L 22 11 L Rate Blood Pressure 146/66 146/66 146/66 O2 Sat by Pulse 91 L 92 L 93 L Oximetry 05/30/23 05/30/23 05/30/23 18:00 18:30 18:31 Temperature Pulse Rate 77 80 80 Respiratory 9 L 5 L 16 Rate Blood Pressure 157/75 126/60 124/57 O2 Sat by Pulse 95 96 96 Oximetry 05/30/23 05/30/23 05/30/23 19:00 19:30 20:00 Temperature Pulse Rate 80 82 85 Respiratory 20 20 12 Rate Blood Pressure 124/57 121/68 138/71 O2 Sat by Pulse 94 L 95 93 L Oximetry 05/30/23 05/30/23 05/30/23 20:30 21:00 21:30 Temperature Pulse Rate 91 91 89 Respiratory 22 19 20 Rate Blood Pressure 173/77 173/73 173/73 O2 Sat by Pulse 91 L 94 L 92 L Oximetry 05/30/23 05/30/23 05/30/23 22:00 22:30 23:00 Temperature Pulse Rate 89 94 100 Respiratory 15 16 19 Rate Blood Pressure 149/62 128/52 129/60 O2 Sat by Pulse 96 99 96 Oximetry 05/30/23 23:30 Temperature Pulse Rate 87 Respiratory 19 Rate Blood Pressure 136/52 O2 Sat by Pulse 98 Oximetry EKG Findings - EKG Comments: EKG Findings:: My EKG interpretation: Ventricular rate 72, sinus rhythm,. 02 11, QRS 142, QTc 459. Compared to EKG from September 12, 2022 showing no onset widened QRS with interventricular conduction delay. Overall this EKG is nonspecific <Miguel A Sampson - Last Filed: 05/30/23 21:22> Medical Decision Making - Lab Data Result diagrams: 05/30/23 18:16 05/30/23 18:16 <Miguel A Sampson - Last Filed: 05/30/23 21:22> - Lab Data Result diagrams: 05/30/23 18:16 05/30/23 18:16 <Charito Bobo - Last Filed: 05/31/23 01:14> - Medical Decision Making Was pt. sent in by a medical professional or institution (, PA, INDUSTRIAL ELECTRICIAN, urgent care, hospital, or [facility]...) When possible be specific @ -No Did you speak to anyone other than the patient for history (EMS, parent, family, police, friend...)? What history was obtained from this source @ -No Did you review nursing and triage notes (agree or disagree)? Why? @ -I reviewed and agree with nursing and triage notes Were old charts reviewed (outside hosp., previous admission, EMS record, old EKG, old radiological studies, urgent care reports/EKG's, [facility] records)? Report findings @ -No old charts were reviewed Differential Diagnosis (chest pain, altered mental status, abdominal pain women, abdominal pain men, vaginal bleeding, musculoskeletal, weakness, fever, dyspnea, syncope, headache, dizziness, GI bleed, back pain, seizure, CVA, palpatations, mental health)? @ -Differential Abdominal Pain Women: Appendicitis, Cholecystitis, diverticulosis, ischemic bowel, pancreatitis, hepatitis, UTI, gastroenteritis, AAA, incarcerated hernia, bowel obstruction, constipation, inflammatory bowel, hepatitis, peptic ulcer disease, splenic infarction, perforated viscus, vulvitis, ovarian torsion, PID, kidney stone, placenta abruption, this is not meant to be an all-inclusive list Differential Chest Pain: Stable Angina, Unstable Angina, STEMI, NSTEMI Aortic Dissection, Pneumothorax, Musculoskeletal, Esophageal Spasm GERD, Cholecystitis, Pancreatitis, Zoster, this is not meant to be an all-inclusive list. EKG interpreted by me (3pts min.). @ -See above X-rays interpreted by me (1pt min.). @ -Chest x-ray is nonacute CT interpreted by me (1pt min.). @ -CT of the abdomen pelvis shows hydropic gallbladder U/S interpreted by me (1pt. min.). @ -None done What testing was considered but not performed or refused? (CT, X-rays, U/S, labs)? Why? @ -None What meds were considered but not given or refused? Why? @ -None Did you discuss the management of the patient with other professionals (professionals i.e. , PA, INDUSTRIAL ELECTRICIAN, lab, RT, psych nurse, drug abuse social worker, divorce lawyer, teacher, payroll officer, case folder)? Give summary @ -No Was smoking cessation discussed for >3mins.? @ -No Was critical care preformed (if so, how long)? @ -No Were there social determinants of health that impacted care today? How? ( Homelessness, low income, unemployed, alcoholism, drug addiction, transportation, low edu. Level, literacy, decrease access to med. care, senior living, rehab)? @ -No Was there de-escalation of care discussed even if they declined (Discuss DNR or withdrawal of care, Hospice)? DNR status @ -No What co-morbidities impacted this encounter? (DM, HTN, Smoking, COPD, CAD, Cancer, CVA, ARF, Chemo, Hep., AIDS, mental health diagnosis, sleep apnea, morbid obesity)? @ -None Was patient admitted / discharged? Hospital course, mention meds given and route, prescriptions, significant lab abnormalities, going to OR and other pertinent info. @ -77-year-old female presents emergency department for chest pain and abdominal pain. Symptoms are associated with nausea and vomiting. Vital signs upon arrival are within acceptable limits. Laboratory evaluation obtained. CBC shows no leukocytosis. Coag panel is negative. Metabolic panel is within acceptable limits. Liver enzymes however are acutely elevated with AST 599, ALT of 183 alk phos of 294. CT abdomen pelvis ordered pending radiology read. Patient care signed out to Dr. Bobo at 9:30 PM Undiagnosed new problem with uncertain prognosis? @ -No Drug Therapy requiring intensive monitoring for toxicity (Heparin, Nitro, Insulin, Cardizem)? @ -No Were any procedures done? @ -No Diagnosis/symptom? Acute, or Chronic, or Acute on Chronic? Uncomplicated (without systemic symptoms) or Complicated (systemic symptoms)? @ -Chest pain Side effects of treatment? @ -No Exacerbation, Progression, or Severe Exacerbation? @ -No Poses a threat to life or bodily function? How? (Chest pain, USA, HI, pneumonia, PE, COPD, DKA, ARF, appy, cholecystitis, CVA, Diverticulitis, Homicidal, Suicidal, threat to staff... and all critical care pts) @ -yes (Miguel A Sampson) Was patient admitted / discharged? Hospital course, mention meds given and route, prescriptions, significant lab abnormalities, going to OR and other pertinent info. @ -Patient care was signed out to me at 9:30 PM patient presented with chest and upper abdominal pain she had transaminitis on lab work, CT evaluated by me reveals an enlarged gallbladder, gallbladder ultrasound was ordered and resulted with an enlarged bowel bladder with no signs of acute cholecystitis. Patient had persistent nausea and vomiting throughout her stay in the ER given her advanced age chest pain advance continued nausea and vomiting transaminitis I did not feel she was stable for discharge home and she was admitted to the [facility] hospitalist group with cardiology and surgery on consult. Undiagnosed new problem with uncertain prognosis? @ -No Drug Therapy requiring intensive monitoring for toxicity (Heparin, Nitro, Insulin, Cardizem)? @ -No Were any procedures done? @ -No Diagnosis/symptom? @ -Transaminitis, intractable nausea vomiting Acute, or Chronic, or Acute on Chronic? @ -Acute Uncomplicated (without systemic symptoms) or Complicated (systemic symptoms)? @ -Default Side effects of treatment? @ -No Exacerbation, Progression, or Severe Exacerbation? @ -No Poses a threat to life or bodily function? How? (Chest pain, USA, HI, pneumonia, PE, COPD, DKA, ARF, appy, cholecystitis, CVA, Diverticulitis, Homicidal, Suicidal, threat to staff... and all critical care pts) @ -Unlikely (Charito Bobo) - Lab Data Lab Results 05/30/23 05/30/23 05/30/23 Range/Units 18:16 18:16 18:16 WBC 9.8 (3.8-10.6) k/uL RBC 4.04 (3.80-5.40) m/uL Hgb 11.3 L (11.4-16.0) gm/dL Hct 34.5 (34.0-46.0) % MCV 85.4 (80.0-100.0) fL MCH 27.9 (25.0-35.0) pg MCHC 32.7 (31.0-37.0) g/dL RDW 15.8 H (11.5-15.5) % Plt Count 228 (150-450) k/uL MPV 8.2 Neutrophils % 88 % Lymphocytes % 6 % Monocytes % 5 % Eosinophils % 1 % Basophils % 0 % Neutrophils # 8.6 H (1.3-7.7) k/uL Lymphocytes # 0.6 L (1.0-4.8) k/uL Monocytes # 0.5 (0-1.0) k/uL Eosinophils # 0.1 (0-0.7) k/uL Basophils # 0.0 (0-0.2) k/uL PT 11.0 (10.0-12.5) sec INR 1.0 (<1.2) APTT 24.8 (22.0-30.0) sec Sodium 140 (137-145) mmol/L Potassium 4.5 (3.5-5.1) mmol/L Chloride 107 (98-107) mmol/L Carbon Dioxide 27 (22-30) mmol/L Anion Gap 6 mmol/L BUN 47 H (7-17) mg/dL Creatinine 0.86 (0.52-1.04) mg/dL Est GFR (CKD-EPI)AfAm 75 (>60 ml/min/1.73 sqM) Est GFR (CKD-EPI)NonAf 65 (>60 ml/min/1.73 sqM) Glucose 239 H (74-99) mg/dL POC Glucose (mg/dL) (70-110) mg/dL POC Glu Neuro Psych Sales Specialist ID Calcium 8.5 (8.4-10.2) mg/dL Magnesium 1.7 (1.6-2.3) mg/dL Total Bilirubin 1.3 (0.2-1.3) mg/dL AST 599 H (14-36) U/L ALT 183 H (4-34) U/L Alkaline Phosphatase 294 H (38-126) U/L Troponin I (0.000-0.034) ng/mL Total Protein 6.3 (6.3-8.2) g/dL Albumin 3.2 L (3.5-5.0) g/dL Lipase 94 (23-300) U/L 05/30/23 05/30/23 Range/Units 18:16 20:31 WBC (3.8-10.6) k/uL RBC (3.80-5.40) m/uL Hgb (11.4-16.0) gm/dL Hct (34.0-46.0) % MCV (80.0-100.0) fL MCH (25.0-35.0) pg MCHC (31.0-37.0) g/dL RDW (11.5-15.5) % Plt Count (150-450) k/uL MPV Neutrophils % % Lymphocytes % % Monocytes % % Eosinophils % % Basophils % % Neutrophils # (1.3-7.7) k/uL Lymphocytes # (1.0-4.8) k/uL Monocytes # (0-1.0) k/uL Eosinophils # (0-0.7) k/uL Basophils # (0-0.2) k/uL PT (10.0-12.5) sec INR (<1.2) APTT (22.0-30.0) sec Sodium (137-145) mmol/L Potassium (3.5-5.1) mmol/L Chloride (98-107) mmol/L Carbon Dioxide (22-30) mmol/L Anion Gap mmol/L BUN (7-17) mg/dL Creatinine (0.52-1.04) mg/dL Est GFR (CKD-EPI)AfAm (>60 ml/min/1.73 sqM) Est GFR (CKD-EPI)NonAf (>60 ml/min/1.73 sqM) Glucose (74-99) mg/dL POC Glucose (mg/dL) 294 H (70-110) mg/dL POC Glu Neuro Psych Sales Specialist ID Enma Gregg Calcium (8.4-10.2) mg/dL Magnesium (1.6-2.3) mg/dL Total Bilirubin (0.2-1.3) mg/dL AST (14-36) U/L ALT (4-34) U/L Alkaline Phosphatase (38-126) U/L Troponin I <0.012 (0.000-0.034) ng/mL Total Protein (6.3-8.2) g/dL Albumin (3.5-5.0) g/dL Lipase (23-300) U/L Disposition <Miguel A Sampson D - Last Filed: 05/30/23 21:22> <Charito Bobo P - Last Filed: 05/31/23 01:14> Clinical Impression: Transaminitis, Intractable nausea and vomiting, Chest pain Disposition: ADMITTED IP TO THIS HOSP Condition: Serious Referrals: Luis Shirley MD [Primary Care Provider] - 1-2 days
[2023-05-30 18:36] LABS: Basophils % (A) 0 %; Eosinophils # (A) 0.1 k/uL (0-0.7); Eosinophils % (A) 1 %; HCT 34.5 % (34.0-46.0); HGB 11.3 gm/dL (11.4-16.0); Lymphocytes # (A) 0.6 k/uL (1.0-4.8); Lymphocytes % (A) 6 %; MCH 27.9 pg (25.0-35.0); MCHC 32.7 g/dL (31.0-37.0); MCV 85.4 fL (80.0-100.0); Mean Platelet Volume 8.2; Monocytes # (A) 0.5 k/uL (0-1.0); Monocytes % (A) 5 %; Neutrophils # (A) 8.6 k/uL (1.3-7.7); Neutrophils % (A) 88 %; Platelet Count 228 k/uL (150-450); RBC 4.04 m/uL (3.80-5.40); RDW 15.8 % (11.5-15.5); WBC 9.8 k/uL (3.8-10.6)
[2023-05-30 18:46] LABS: ALT 183 U/L (4-34); AST 599 U/L (14-36); African American GFR (CKD) 75 (>60 ml/min/1.73 sqM); Albumin 3.2 g/dL (3.5-5.0); Alkaline Phosphatase 294 U/L (38-126); Anion Gap 6 mmol/L; Blood Urea Nitrogen 47 mg/dL (7-17); Calcium 8.5 mg/dL (8.4-10.2); Carbon Dioxide 27 mmol/L (22-30); Chloride 107 mmol/L (98-107); Glucose 239 mg/dL (74-99); Lipase 94 U/L (23-300); Magnesium 1.7 mg/dL (1.6-2.3); Non-African American GFR(CKD) 65 (>60 ml/min/1.73 sqM); Sodium 140 mmol/L (137-145); Total Bilirubin 1.3 mg/dL (0.2-1.3); Total Protein 6.3 g/dL (6.3-8.2)
[2023-05-30 18:49] LABS: Partial Thromboplastin Time 24.8 sec (22.0-30.0); Potassium 4.5 mmol/L (3.5-5.1)
[2023-05-30 20:32] LABS: Glucose,Whole Blood 294 mg/dL (70-110)
--- NOTE | 2023-05-30 20:55 | XR ---
EXAMINATION TYPE: XR chest 2V DATE OF EXAM: 05/30/2023 7:31 PM CLINICAL INDICATION:Female, 77 years old with history of Chest Pain; [facility] COMPARISON: Portable chest 09/10/2022 TECHNIQUE: XR chest 2V. Frontal and lateral views of the chest.. FINDINGS: Lines/Tubes/Devices: No indwelling lines are seen. EKG leads overlie the chest. Heart/mediastinum: Heart appears moderately enlarged. Mildly tortuous and partially calcified aorta. Pulmonary vascularity: Not increased, Lungs/Pleura: Coarsened interstitium again noted, likely chronic lung changes. No definite lung opaci ty on the frontal view, however on the lateral there is a posterior inferior opacity which could be r etrocardiac and may represent summation of shadows, infiltrate or even nodule. Musculoskeletal: No acute osseous abnormality demonstrated in the limits of the exam. Bones appear s omewhat demineralized. Degenerative changes throughout the spine. Other findings: None. IMPRESSION: 1. Cardiomegaly without evidence of failure. 2. Coarsened interstitium again noted, likely chronic lung changes. 3. Possible retrocardiac opacity seen on the lateral view, may represent summation of shadows, infil trate, or even nodule. Consider CT chest follow-up.
--- NOTE | 2023-05-30 21:51 | CT ---
EXAMINATION TYPE: CT abdomen pelvis wo con CT DLP: 1107.2 mGycm, Automated exposure control for dose reduction was used. DATE OF EXAM: 05/30/2023 8:56 PM COMPARISON: None. CLINICAL INDICATION:Female, 77 years old with history of abdominal pain; N/V. CP. SOB. TECHNIQUE: Axial CT of the abdomen and pelvis. Sagittal and coronal reformats were created on a [employer] workstation. Contrast used: mL of , (none if empty) Oral contrast used: without Oral Contrast (none if empty) FINDINGS: Exam is limited by lack of contrast. LOWER CHEST: Heart is moderately enlarged. Moderate coronary artery calcifications. Small to moderate size sliding hiatal hernia. Mild dependent atelectasis without focal consolidation or effusion. ABDOMEN LIVER: Unremarkable GALLBLADDER AND BILE DUCTS: Gallbladder appears distended with layering hyperdensity posteriorly whic h could reflect sludge or layering tiny calculi. No clear evidence of pericholecystic inflammatory ch anges. No significant biliary dilatation is seen. PANCREAS: Moderately atrophic without acute abnormality. SPLEEN: Unremarkable. ADRENAL GLANDS: Mildly thickened, may be seen with hyperplasia.. KIDNEYS AND URETERS: No evidence of renal calculi or contour deformity. No hydronephrosis. Mildly pro minent bilateral extrarenal pelves without dilated ureters seen. There are pelvic vascular calcificat ions including phleboliths. PELVIS BLADDER: Unremarkable REPRODUCTIVE: The uterus appears absent, correlate for hysterectomy. No pelvic mass is suggested. ABDOMEN & PELVIS STOMACH AND BOWEL: Stomach and small bowel are nondistended, no evidence of obstruction. The append ix is not seen with certainty but there is no inflammatory process seen in the pericecal region. Mod erate stool throughout the colon. Multiple diverticula without signs of diverticulitis. Rectum is pac ked and distended with stool up to 6.7 cm. PERITONEUM/RETROPERITONEUM: No evidence of pneumoperitoneum or free fluid. VASCULATURE: Moderate atherosclerotic calcifications are present throughout the abdominal aorta and i ts branches. No evidence of aortic aneurysm. LYMPH NODES: No gross evidence for lymphadenopathy. SOFT TISSUE/ABDOMINAL WALL: Limited assessment of the region of the left hip due to artifact from pro sthesis. Mild body wall edema suggested, especially in the upper thighs. No focal fluid collection is identified. 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 Proximal femur seems to show h ealing changes from a previous fracture without definite evidence of an acute fracture lucency. The h ardware itself appears intact. There appears to be an element of left hip region effusion. Some degen erative changes along the acetabulum without evidence of acetabular/pelvic fracture seen. Right hip a ppears intact with mild/moderate degenerative changes. Moderate degenerative changes of the lumbar sp ine and SI joints, without acute abnormality demonstrated. Mild S-shaped thoracolumbar scoliosis. IMPRESSION: 1. Moderate cardiomegaly and coronary artery calcifications. No evidence of failure. 2. Small to moderate sized hiatal hernia. 3. Distended gallbladder with layering sludge or tiny calculi. Correlate clinically for possibility of developing cholecystitis. 4. Moderate colonic stool throughout, rectum is packed and distended with stool up to 6.7 cm. 5. Multiple colonic diverticula without signs of diverticulitis. 6. 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
[2023-05-30] MEDS: FAMOTIDINE 20 MG/2 ML VIAL IV STA (22:18)
[2023-05-30] MEDS: ONDANSETRON 4 MG/2 ML VIAL IVP STA (22:19)
--- NOTE | 2023-05-30 23:36 | US ---
EXAM: US Abdomen Limited, Gallbladder CLINICAL HISTORY: ITS.REASON US Reason: transaminitis, abnormal ct TECHNIQUE: Real-time ultrasound of the right upper quadrant with image documentation. COMPARISON: No previous studies. FINDINGS: Liver: Liver measures 15.5 cm is. No focal hepatic abnormality noted. Gallbladder: Small gallstones versus sludge within the gallbladder. Negative ultrasound Morelos sign. Gallbladder wall measures 0.27 cm. Common bile duct: Common bile duct is not visualized. Pancreas: Obscuration of the tail region of the pancreas due to bowel gas. Right kidney: The right kidney measures 13.4 cm is in length. No hydronephrosis of the right kidney. IMPRESSION: 1. Small gallstones versus sludge within the gallbladder. 2. Nonvisualization of the common bile duct. 3. Negative ultrasound Morelos's sign. 4. Limited evaluation due to bowel gas. No hydronephrosis.
[2023-05-31] MEDS ORDERED: NALOXONE 0.4 MG/ML 1 ML VIAL IV PRN (01:07)
[2023-05-31] MEDS: SODIUM CHLORIDE 0.9% 1,000 ML IV SCH (01:29)
[2023-05-31 06:23] LABS: Glucose,Whole Blood 193 mg/dL (70-110)
[2023-05-31] MEDS: PANTOPRAZOLE 40 MG/10 ML VIAL IV SCH (08:35)
[2023-05-31] MEDS ORDERED: AMMONIUM LACTATE 12% LOTION 225 GM BTL TOPICAL PRN (10:23)
--- NOTE | 2023-05-31 11:40 | P.HPIM ---
History of Present Illness Patient pleasant 77-year-old female came in with complaints of epigastric and right upper quadrant abdominal discomfort which resolved at this time CT of the abdomen and ultrasound of the abdomen showed gallbladder sludge. Patient does have history of cardiomyopathy as per the previous documentations although her ejection fraction in 2021 is within normal limits. Patient is on Entresto. Patient states she is both on Lasix as well as Bumex. Patient denies any chest pain troponins are negative EKG did not show any acute ST-T wave changes patient AST and ALT are elevated, 599 and 183 respectively patient does not have any fe jose carlos or chills patient does not have any leukocytosis. Patient clinically euvolemic at this time. Patient is receiving IV fluids which were discontinued. Patient was complaining of nausea which resolved at this time. CT also showed constipation and possible mild displacement of the femoral head over the acetabulum acetabulum. REVIEW OF SYSTEMS: CONSTITUTIONAL: No fever, no malaise, no fatigue. HEENT: No recent visual problems or hearing problems. Denied any sore throat. CARDIOVASCULAR: No chest pain, orthopnea, PND, no palpitations, no syncope. PULMONARY: No shortness of breath, no cough, no hemoptysis. GASTROINTESTINAL: As mentioned in HPI NEUROLOGICAL: No headaches, no weakness, no numbness. HEMATOLOGICAL: Denies any bleeding or petechiae. GENITOURINARY: Denies any burning micturition, frequency, or urgency. MUSCULOSKELETAL/RHEUMATOLOGICAL: Denies any joint pain, swelling, or any muscle pain. ENDOCRINE: Denies any polyuria or polydipsia. The rest of the 14-point review of systems is negative. PHYSICAL EXAMINATION: GENERAL: The patient is alert and oriented x3, not in any acute distress. Well developed, well nourished. HEENT: Pupils are round and equally reacting to light. EOMI. No scleral icterus. No conjunctival pallor. Normocephalic, atraumatic. No pharyngeal erythema. No thyromegaly. CARDIOVASCULAR: S1 and S2 present. No murmurs, rubs, or gallops. PULMONARY: Chest is clear to auscultation, no wheezing or crackles. ABDOMEN: Soft, nontender, nondistended, normoactive bowel sounds. No palpable organomegaly. MUSCULOSKELETAL: No joint swelling or deformity. EXTREMITIES: No cyanosis, clubbing, or pedal edema. NEUROLOGICAL: Gross neurological examination did not reveal any focal deficits. SKIN: No rashes. Assessment and plan -Abdominal discomfort and pain: Secondary to biliary sludge patient was started on diet by general surgery and wanted to monitor no surgical intervention is being planned will continue to monitor the patient overnight -Mild transaminitis probably secondary to passed gallstone will repeat liver enzymes tomorrow -Congestive heart failure history chronic patient is presently euvolemic patient may have diastolic function patient may have had resolved systolic dysfunction continue with Entresto, patient will be resumed on Bumex will not resume Lasix at this time. -Paroxysmal atrial fibrillation presently rate controlled continue with rate control medications and anticoagulation -History of DVT in the past -Type 2 diabetes mellitus elevated blood sugars as patient was did not receive her insulin which will be resumed at this time -History of CVA in the past -Osteoarthritis -CT reading of mild displacement of left hip, will review with orthopedic surgery DVT prophylaxis: On anticoagulation as mentioned above Past Medical History Past Medical History: Atrial Fibrillation, Coronary Artery Disease (CAD), CVA/TIA, Diabetes Mellitus, Deep Vein Thrombosis (DVT), Hypertension, Myocardial Infarction ([place]), Osteoarthritis (OA) Additional Past Medical History / Comment(s): hx tia, hx stroke behind left eye., lt eye macular , states hospitalized with Covid April 2019 with life support and stage 3 kidney failure., hx of fall with hip fx and surgery 01/13/22 went to [facility] for Rehab. DVT during ., varicose veins, states painful sore left heel., hx of t.b. as a child with scarring on lungs. Last Myocardial Infarction Date:: unknown date History of Any Multi-Drug Resistant Organisms: MRSA, VRE Date of last positivie culture/infection: 09/09/22 MRSA & VRE ([facility]-Scanned) MDRO Source:: Blood Culture Past Surgical History: Adenoidectomy, Hysterectomy, Orthopedic Surgery, Tonsillectomy, Tubal Ligation Additional Past Surgical History / Comment(s): pilonidal cyst twice as child, rt knee arthroscopy, krystyna cataracts, krystyna great toe sx, ORIF Left hip (01/13/22) Past Anesthesia/Blood Transfusion Reactions: Previous Problems w/ Anesthesia, Postoperative Nausea & Vomiting (PONV) Additional Past Anesthesia/Blood Transfusion Reaction / Comment(s): difficulty waking up after sx. clausterphobia. 1961 blood transfusion(during child ) pt stated had palpitations after 2nd unit given Past Psychological History: Anxiety Smoking Status: Never smoker Past Alcohol Use History: None Reported Past Drug Use History: None Reported - Past Family History Mother Family Medical History: Cancer Additional Family Medical History / Comment(s): lung cancer Father Family Medical History: Coronary Artery Disease (CAD) Additional Family Medical History / Comment(s): heart disease, kidney disese Medications and Allergies Home Medications Medication Instructions Recorded Confirmed Type Apixaban [Eliquis] 5 mg PO BID 08/13/20 05/30/23 History Sacubitril/Valsartan [Entresto 24 1 tab PO BID 01/12/22 05/30/23 History mg-26 mg Tablet] Omeprazole [PriLOSEC] 20 mg PO DAILY 03/05/22 05/30/23 History Bumetanide [BUMEX] 2 mg PO DAILY 09/09/22 05/30/23 History Ipratropium [place] [Atrovent Hfa] 2 puff INHALATION RT-QID 09/09/22 05/30/23 History ALPRAZolam [Xanax] 0.25 mg PO TID 05/30/23 05/30/23 History Amiodarone [Cordarone] 100 mg PO DAILY 05/30/23 05/30/23 History Ammonium Lactate Lotion 1 applic TOPICAL BID PRN 05/30/23 05/30/23 History [Lac-Hydrin 12% Lotion] Ascorbic Acid [Vitamin C with Samina 1,000 mg PO DAILY 05/30/23 05/30/23 History Hips] Aspirin 81 mg PO DAILY 05/30/23 05/30/23 History Atorvastatin [Lipitor] 20 mg PO DAILY 05/30/23 05/30/23 History Cholecalciferol [Vitamin D3 (25 25 mcg PO DAILY 05/30/23 05/30/23 History Mcg = 1000 Iu)] Escitalopram [Lexapro] 10 mg PO DAILY 05/30/23 05/30/23 History Furosemide [Lasix] 60 mg PO BID 05/30/23 05/30/23 History Insulin Aspart [NovoLOG Flexpen] See Protocol SQ AC-TID 05/30/23 05/30/23 History Insulin Glargine,Hum.rec.anlog 15 units SQ HS 05/30/23 05/30/23 History [Toujeo Max Solostar] Insulin Glargine,Hum.rec.anlog 24 units SQ DAILY 05/30/23 05/30/23 History [Toujeo Max Solostar] Multivit-Min/FA/Lycopen/Lutein 1 tab PO DAILY 05/30/23 05/30/23 History [Centrum Silver Tablet] Nystatin [Nystop] 1 applic TOPICAL TUTH 05/30/23 05/30/23 History Potassium Chloride ER [K-Dur 20] 20 meq PO DAILY 05/30/23 05/30/23 History SILVER sulfADIAZINE Cream 1 applic TOPICAL TUTH 05/30/23 05/30/23 History [Silvadene 1% Cream] Allergies Allergy/AdvReac Type Severity Reaction Status Date / Time shellfish derived [Shellfish] Allergy Severe vomiting Verified 05/30/23 22:07 -very ill adhesive Allergy skin red Verified 05/30/23 22:07 and murguia, tears skin aluminum Allergy skin turns Verified 05/30/23 22:07 black, passes out Antihistamines - Allergy heart Verified 05/30/23 22:07 Ethylenediamine palpitations codeine Allergy migraines Verified 05/30/23 22:07 epinephrine Allergy heart Verified 05/30/23 22:07 palpitations fluticasone [From Flonase] Allergy Unknown Verified 05/30/23 22:07 hydrogen peroxide Allergy murguia and Verified 05/30/23 22:07 causes infection latex Allergy passes out Verified 05/30/23 22:07 lidocaine Allergy gtts in Verified 05/30/23 22:07 eyes and passed out nickel Allergy turns skin Verified 05/30/23 22:07 black and passes out procaine HCl [From Novocain] Allergy passed Verified 05/30/23 22:07 out- due to epinephrine in it. thiopental sodium Allergy needed cpr Verified 05/30/23 22:07 [From Pentothal] resusitation methocarbamol [From Robaxin] AdvReac Hallucinati Verified 05/30/23 22:07 ons surgical felicita Allergy Severe had to be Uncoded 05/30/23 22:07 removed 2 days post-op petroleum products AdvReac passes out Uncoded 05/30/23 22:07 or does not feel well. (diesel, oils) Physical Exam Vitals: Vital Signs Temp Pulse Pulse Resp BP BP Pulse Ox 05/31/23 07:00 99.2 F 89 16 111/66 96 05/31/23 03:15 99.5 F 90 16 124/67 98 05/31/23 02:40 100.9 F H 91 16 97 05/31/23 02:30 90 19 110/49 05/31/23 02:00 89 90 15 125/57 97 05/31/23 01:30 91 15 117/51 97 05/31/23 01:00 87 18 124/57 97 05/31/23 00:30 98 16 122/54 96 05/31/23 00:00 85 18 128/59 97 05/30/23 23:51 88 17 128/59 98 05/30/23 23:30 87 19 136/52 98 05/30/23 23:00 100 19 129/60 96 05/30/23 22:30 94 16 128/52 99 05/30/23 22:00 89 15 149/62 96 05/30/23 21:30 89 20 173/73 92 L 05/30/23 21:00 91 19 173/73 94 L 05/30/23 20:30 91 22 173/77 91 L 05/30/23 20:00 85 12 138/71 93 L 05/30/23 19:30 82 20 121/68 95 05/30/23 19:00 80 20 124/57 94 L 05/30/23 18:31 80 16 124/57 96 05/30/23 18:30 80 5 L 126/60 96 05/30/23 18:00 77 9 L 157/75 95 05/30/23 17:30 78 11 L 146/66 93 L 05/30/23 17:26 98.6 F 74 22 146/66 92 L 05/30/23 17:08 72 7 L 146/66 91 L Intake and Output 05/30/23 05/31/23 05/31/23 22:59 06:59 14:59 Other: Voiding Method Diaper Incontinent External Catheter # Voids 2 Weight 83.915 kg 83.915 kg Results CBC & Chem 7: 05/30/23 18:16 05/30/23 18:16 Labs: Abnormal Lab Results - Last 24 Hours (Table) 05/30/23 05/30/23 05/30/23 Range/Units 18:16 18:16 20:31 Hgb 11.3 L (11.4-16.0) gm/dL RDW 15.8 H (11.5-15.5) % Neutrophils # 8.6 H (1.3-7.7) k/uL Lymphocytes # 0.6 L (1.0-4.8) k/uL BUN 47 H (7-17) mg/dL Glucose 239 H (74-99) mg/dL POC Glucose (mg/dL) 294 H (70-110) mg/dL AST 599 H (14-36) U/L ALT 183 H (4-34) U/L Alkaline Phosphatase 294 H (38-126) U/L Albumin 3.2 L (3.5-5.0) g/dL 05/31/23 Range/Units 06:21 Hgb (11.4-16.0) gm/dL RDW (11.5-15.5) % Neutrophils # (1.3-7.7) k/uL Lymphocytes # (1.0-4.8) k/uL BUN (7-17) mg/dL Glucose (74-99) mg/dL POC Glucose (mg/dL) 193 H (70-110) mg/dL AST (14-36) U/L ALT (4-34) U/L Alkaline Phosphatase (38-126) U/L Albumin (3.5-5.0) g/dL Thrombosis Risk Factor Assmnt - Choose All That Apply Any of the Below Risk Factors Present?: Yes Each Factor Represents 1 point: Obesity (BMI >25) Other Risk Factors: Yes Each Risk Factor Represents 3 Points: Age 75 years or older Thrombosis Risk Factor Assessment Total Risk Factor Score: 4 Thrombosis Risk Factor Assessment Level: Moderate Risk
[2023-05-31 12:08] LABS: Glucose,Whole Blood 153 mg/dL (70-110)
[2023-05-31] MEDS: INSULIN DETEMIR (LEVEMIR) 100 UNIT/ML SYR SQ SCH ×2 (12:20→21:20)
[2023-05-31] MEDS: bisacodyL 10 MG SUPP RECTAL SCH (12:20)
[2023-05-31] MEDS: AMIODARONE 100 MG TAB PO SCH (12:21)
[2023-05-31] MEDS: BUMETANIDE 1 MG TAB PO SCH (12:21)
[2023-05-31] MEDS: SACUBITRIL/VALSARTAN 24 MG-26 MG TABLET PO SCH (12:21)
[2023-05-31] MEDS: IPRATROPIUM 0.5 MG/2.5 ML NEBU INHALATION SCH (12:38)
[2023-05-31 17:04] LABS: Glucose,Whole Blood 136 mg/dL (70-110)
[2023-05-31 20:53] LABS: Glucose,Whole Blood 173 mg/dL (70-110)
[2023-05-31] MEDS: APIXABAN 5 MG TAB PO SCH (21:20)
[2023-05-31] MEDS: ONDANSETRON 4 MG/2 ML VIAL IVP PRN (21:21)
--- NOTE | 2023-05-31 21:39 | P.CON ---
Consult Note - . Assessment/Plan:: Patient pleasant 77-year-old female came in with complaints of epigastric and right upper quadrant abdominal discomfort which resolved at this time CT of the abdomen and ultrasound of the abdomen showed gallbladder sludge. Patient does have history of cardiomyopathy as per the previous documentations although her ejection fraction in 2021 is within normal limits. Patient is on Entresto. Patient states she is both on Lasix as well as Bumex. Patient denies any chest pain troponins are negative EKG did not show any acute ST-T wave changes patient AST and ALT are elevated, 599 and 183 respectively patient does not have any fever or chills patient does not have any leukocytosis. Patient clinically euvolemic at this time. Patient is receiving IV fluids which were discontinued. Patient was complaining of nausea which resolved at this time. CT also showed constipation and possible mild displacement of the femoral head over the acetabulum acetabulum. REVIEW OF SYSTEMS: CONSTITUTIONAL: No fever, no malaise, no fatigue. HEENT: No recent visual problems or hearing problems. Denied any sore throat. CARDIOVASCULAR: No chest pain, orthopnea, PND, no palpitations, no syncope. PULMONARY: No shortness of breath, no cough, no hemoptysis. GASTROINTESTINAL: As mentioned in HPI NEUROLOGICAL: No headaches, no weakness, no numbness. HEMATOLOGICAL: Denies any bleeding or petechiae. GENITOURINARY: Denies any burning micturition, frequency, or urgency. MUSCULOSKELETAL/RHEUMATOLOGICAL: Denies any joint pain, swelling, or any muscle pain. ENDOCRINE: Denies any polyuria or polydipsia. The rest of the 14-point review of systems is negative. PHYSICAL EXAMINATION: GENERAL: The patient is alert and oriented x3, not in any acute distress. Well developed, well nourished. HEENT: Pupils are round and equally reacting to light. EOMI. No scleral icterus. No conjunctival pallor. Normocephalic, atraumatic. No pharyngeal erythema. No thyromegaly. CARDIOVASCULAR: S1 and S2 present. No murmurs, rubs, or gallops. PULMONARY: Chest is clear to auscultation, no wheezing or crackles. ABDOMEN: Soft, nontender, nondistended, normoactive bowel sounds. No palpable organomegaly. MUSCULOSKELETAL: No joint swelling or deformity. EXTREMITIES: No cyanosis, clubbing, or pedal edema. NEUROLOGICAL: Gross neurological examination did not reveal any focal deficits. SKIN: No rashes. 77 yo female w/ symptomatic cholelithiasis -denies abdominal pain -trend labs -trial on diet -no surgery at this time, re-eval outpatient
[2023-06-01 06:16] LABS: Glucose,Whole Blood 60 mg/dL (70-110)
[2023-06-01] MEDS: PANTOPRAZOLE 40 MG TABLET PO SCH (06:47)
[2023-06-01 06:52] LABS: Glucose,Whole Blood 75 mg/dL (70-110)
[2023-06-01] MEDS: ATORVASTATIN 20 MG TAB PO SCH (09:21)
[2023-06-01] MEDS: POTASSIUM CHLORIDE ER 20 MEQ TAB.ER PO SCH (09:21)
[2023-06-01] MEDS: ESCITALOPRAM 10 MG TAB PO SCH (09:21)
[2023-06-01] MEDS: ASPIRIN 81 MG PO SCH (09:21)
[2023-06-01 09:37] LABS: Glucose,Whole Blood 104 mg/dL (70-110)
[2023-06-01 12:05] LABS: Glucose,Whole Blood 81 mg/dL (70-110)
--- NOTE | 2023-06-01 12:07 | P.PN ---
Subjective Progress Note Date: 06/01/23 Principal diagnosis: Abdominal pain 77-year-old female came to the hospital because of chest discomfort upper abdominal pain nausea and vomiting. Patient was worried it might be related to her heart. She has a history of cardiac disease apparently. Symptoms have improved since that time. No pain currently in the abdomen. Her liver enzymes were significantly elevated. They were not repeated yet today or the day before. Ultrasound was performed showing small stones or sludge. CAT scan also shows a distended gallbladder with some inflammatory changes., Bile duct not seen on recent ultrasound. No history of known gallbladder disease. Objective - Vital Signs Vital signs: Vital Signs Temp 98.3 F 06/01/23 07:00 Pulse 80 06/01/23 09:19 Resp 16 06/01/23 07:00 BP 102/58 06/01/23 07:00 Pulse Ox 94 L 06/01/23 09:11 FiO2 Intake & Output 05/31/23 06/01/23 06/01/23 17:59 06:59 18:59 Intake Total Output Total Balance Intake: Oral Output: Urine Other: Voiding Method # Voids - Exam Abdomen: Soft, nontender, nondistended - Labs CBC & Chem 7: 05/30/23 18:16 05/30/23 18:16 Labs: Abnormal Lab Results - Last 24 Hours (Table) 05/31/23 05/31/23 05/31/23 Range/Units 12:07 17:03 20:51 POC Glucose (mg/dL) 153 H 136 H 173 H (70-110) mg/dL 06/01/23 Range/Units 06:14 POC Glucose (mg/dL) 60 L (70-110) mg/dL Assessment and Plan (1) Cholecystitis, acute with cholelithiasis Narrative/Plan: 77-year-old female with acute cholecystitis and associated chronic cholecystitis with possible choledocholithiasis. Await today's CMP. Discussed options with patient and her family. Initially she was against the idea of any surgery. After hearing that there was a risk for recurrent symptoms she is more amenable to that conversation. Will discuss further with the patient as we monitor her lab work closely. Current Visit: Yes Status: Acute Code(s): K80.00 - CALCULUS OF GALLBLADDER W ACUTE CHOLECYST W/O OBSTRUCTION SNOMED Code(s): 66130567
[2023-06-01 12:20] LABS: ALT 449 U/L (8-44); AST 506 U/L (13-35); Albumin 3.1 g/dL (3.8-4.9); Albumin/Globulin Ratio 1.24 Ratio (1.60-3.17); Alkaline Phosphatase 417 U/L (41-126); BUN/Creat Ratio 26.95 Ratio (12.00-20.00); Blood Urea Nitrogen 53.9 mg/dL (9.0-27.0); Calcium 9.3 mg/dL (8.7-10.3); Carbon Dioxide 24.2 mmol/L (21.6-31.8); Chloride 96 mmol/L (96-109); Globulin 2.5 g/dL (1.6-3.3); Glucose 57 mg/dL (70-110); Potassium 4.1 mmol/L (3.5-5.5); Sodium 132 mmol/L (135-145); Total Bilirubin 3.3 mg/dL (0.3-1.2); Total Protein 5.6 g/dL (6.2-8.2)
[2023-06-01] MEDS: LEVOFLOXACIN 500MG-D5W PMX 500 MG in DEXTROSE/WATER 1 100ML.BAG IVPB SCH (13:21)
[2023-06-01 17:19] LABS: Glucose,Whole Blood 94 mg/dL (70-110)
[2023-06-01] MEDS ORDERED: DEXTROSE 50% SYRINGE 50 ML IVP PRN ×2 (19:23)
--- NOTE | 2023-06-01 19:40 | P.PN ---
Subjective Progress Note Date: 06/01/23 Patient pleasant 77-year-old female came in with complaints of epigastric and right upper quadrant abdominal discomfort which resolved at this time CT of the abdomen and ultrasound of the abdomen showed gallbladder sludge. Patient does have history of cardiomyopathy as per the previous documentations although her ejection fraction in 2021 is within normal limits. Patient is on Entresto. Patient states she is both on Lasix as well as Bumex. Patient denies any chest pain troponins are negative EKG did not show any acute ST-T wave changes patient AST and ALT are elevated, 599 and 183 respectively patient does not have any fever or chills patient does not have any leukocytosis. Patient clinically euvolemic at this time. Patient is receiving IV fluids which were discontinued. Patient was complaining of nausea which resolved at this time. CT also showed constipation and possible mild displacement of the femoral head over the acetabulum acetabulum. 06/01/2023 Patient is evaluated today on the medical floor. Abdominal pain improving and patient has been tolerating some diet. Her total bilirubin today is up to 3.3 with increasing LFTs. GB ultrasound did reveal small gallstones versus sludge within the gallbladder. Common bile duct was not visualized. Creatinine up to 2.0 today. Labs were not resulted until later in the day. Review of Systems Constitutional: Denied any fatigue denied any fever. Cardio vascular: denied any chest pain, palpitations Gastrointestinal: denied any nausea, vomiting, diarrhea Pulmonary: Denied any shortness of breath cough Neurologic denied any new focal deficits All inpatient medications were reviewed and appropriate changes in these medications as dictated in the interval history and assessment and plan. PHYSICAL EXAMINATION: GENERAL: The patient is alert and oriented x3, not in any acute distress. Well developed, well nourished. HEENT: Pupils are round and equally reacting to light. EOMI. No scleral icterus. No conjunctival pallor. Normocephalic, atraumatic. No pharyngeal erythema. No thyromegaly. CARDIOVASCULAR: S1 and S2 present. No murmurs, rubs, or gallops. PULMONARY: Chest is clear to auscultation, no wheezing or crackles. ABDOMEN: Soft, Mild tendernerss, nondistended, normoactive bowel sounds. No palpable organomegaly. MUSCULOSKELETAL: No joint swelling or deformity. EXTREMITIES: No cyanosis, clubbing, or pedal edema. NEUROLOGICAL: Gross neurological examination did not reveal any focal deficits. SKIN: No rashes. Assessment and plan -Abdominal discomfort and pain: biliary sludge vs. gallstone. -Mild transaminitis probably secondary to passed gallstone however LFTs are increasing with now with elevated bilirubin. CBD was not visualized on imaging. Repeat labs in AM. Surgery recommending possible cholecystectomy. -Congestive heart failure history chronic patient is presently euvolemic, unclear if diastolic or systolic. Bumex has been placed on hold due to creatinine of 2.0. -Acute kidney injury possibly ATN from hypotension. Check bladder scan and urinalysis. Nephrology consultation. -Paroxysmal atrial fibrillation presently rate controlled continue with rate control medications and anticoagulation -History of DVT in the past -Type 2 diabetes mellitus elevated blood sugars, patient was resumed on her long acting insulin and now with hypoglycemia. HS levemir has been discontinued. Novolog ACHS sliding scale and accuchecks has been started. -History of CVA in the past -Osteoarthritis -CT reading of mild displacement of left hip, will review with orthopedic surgery DVT prophylaxis: On anticoagulation as mentioned above The impression and plan of care has been dictated by Mercedes Bryan, Nurse Practitioner as directed. Dr. Orlando MD I have performed a history and physical examination and medical decision making of this patient, discussed the same with the dictator, and agree with the dictators assessment and plan as written, documented as a scribe. Based on total visit time, I have performed more than 50% of this visit. Objective - Vital Signs Vital signs: Vital Signs Temp 98.7 F 06/01/23 15:00 Pulse 78 06/01/23 16:36 Resp 16 06/01/23 15:00 BP 114/67 06/01/23 15:00 Pulse Ox 96 06/01/23 15:00 FiO2 Intake & Output 06/01/23 06/01/23 06/02/23 06:59 18:59 06:59 Intake Total 240 Output Total 325 Balance -85 Intake: Oral 240 Output: Urine 325 Other: Voiding Method Diaper External Catheter # Voids - Labs CBC & Chem 7: 05/30/23 18:16 06/01/23 06:29 Labs: Abnormal Lab Results - Last 24 Hours (Table) 05/31/23 06/01/23 06/01/23 Range/Units 20:51 06:14 06:29 Sodium 132 L (135-145) mmol/L BUN 53.9 H (9.0-27.0) mg/dL Creatinine 2.0 H (0.6-1.5) mg/dL Est GFR (CKD-EPI) 25 L (>=60) BUN/Creatinine Ratio 26.95 H (12.00-20.00) Ratio Glucose 57 L (70-110) mg/dL POC Glucose (mg/dL) 173 H 60 L (70-110) mg/dL Total Bilirubin 3.3 H (0.3-1.2) mg/dL AST 506 H (13-35) U/L ALT 449 H (8-44) U/L Alkaline Phosphatase 417 H (41-126) U/L Total Protein 5.6 L (6.2-8.2) g/dL Albumin 3.1 L (3.8-4.9) g/dL Albumin/Globulin Ratio 1.24 L (1.60-3.17) Ratio Assessment and Plan Time with Patient: Less than 30
[2023-06-01] MEDS: INSULIN ASPART (NovoLOG) 100 UNIT/ML VIAL SQ SCH (21:47)
[2023-06-01 21:54] LABS: Glucose,Whole Blood 64 mg/dL (70-110)
[2023-06-01 22:07] LABS: Glucose,Whole Blood 76 mg/dL (70-110)
[2023-06-02 00:13] LABS: Glucose,Whole Blood 101 mg/dL (70-110)
[2023-06-02 06:03] LABS: Glucose,Whole Blood 94 mg/dL (70-110)
[2023-06-02] MEDS: SODIUM CHLORIDE 0.9% 1,000 ML IV SCH (06:20)
[2023-06-02 08:35] LABS: Basophils # (A) 0.02 X 10*3/uL (0.00-0.10); Basophils % (A) 0.3 %; Eosinophils # (A) 0.32 X 10*3/uL (0.04-0.35); Eosinophils % (A) 4.2 %; HCT 31.8 % (37.2-46.3); HGB 10.1 g/dL (12.0-15.0); Lymphocytes # (A) 0.55 X 10*3/uL (0.90-5.00); Lymphocytes % (A) 7.3 %; MCH 26.5 pg (27.0-32.0); MCHC 31.8 g/dL (32.0-37.0); MCV 83.5 FL (80.0-97.0); Mean Platelet Volume 11.9 FL (9.5-12.2); Monocytes # (A) 0.68 X 10*3/uL (0.20-1.00); NRBC Per 100 WBC 0 X 10*3/uL (0.00-0.01); Neutrophils # (A) 5.97 X 10*3/uL (1.80-7.70); Neutrophils % (A) 78.8 %; Platelet Count 190 X 10*3/uL (140-440); RBC 3.81 X 10*6/uL (4.10-5.20); RDW 16.9 % (11.5-14.5); WBC 7.57 X 10*3/uL (4.50-10.00)
--- NOTE | 2023-06-02 08:47 | P.PN ---
Subjective Progress Note Date: 06/02/23 Principal diagnosis: epigastric pain This is a 77-year-old female who presented to the emergency room with complaints of epigastric and right upper quadrant abdominal discomfort. CT and ultrasound of the abdomen showed gallbladder sludge. Labs on admission showed an increase in AST and ALT. She was seen and evaluated by Dr. Baker and patient was unsure if she wanted to proceed with gallbladder removal or not. Patient's abdominal pain has improved. As of this morning she is leaning towards having the surgery. Patient does report an increase in swelling. She is tolerating diet and vitals are stable. Objective - Vital Signs Vital signs: Vital Signs Temp 98.3 F 06/02/23 02:00 Pulse 80 06/02/23 02:00 Resp 16 06/02/23 02:00 BP 103/62 06/02/23 02:00 Pulse Ox 95 06/02/23 02:00 FiO2 Intake & Output 06/01/23 06/02/23 06/02/23 18:59 06:59 18:59 Intake Total 240 Output Total 325 Balance -85 Intake: Oral 240 Output: Urine 325 Other: Voiding Method Diaper Diaper External Catheter External Catheter # Voids 4 # Bowel Movements 1 - Constitutional General appearance: Present: cooperative, no acute distress - EENT Eyes: Present: PERRLA - Neck Neck: Present: normal ROM. Absent: lymphadenopathy, rigidity - Respiratory Respiratory: bilateral: CTA - Cardiovascular Heart sounds: normal: S1, S2 - Gastrointestinal General gastrointestinal: Present: soft. Absent: tenderness - Integumentary Integumentary: Present: normal, normal turgor - Musculoskeletal Musculoskeletal: Present: generalized weakness - Psychiatric Psychiatric: Present: A&O x's 3, appropriate affect, intact judgment & insight - Labs CBC & Chem 7: 06/02/23 06:13 06/01/23 06:29 Labs: Abnormal Lab Results - Last 24 Hours (Table) 06/01/23 06/01/23 06/02/23 Range/Units 06:29 21:46 06:13 RBC 3.81 L (4.10-5.20) X 10*6/uL Hgb 10.1 L (12.0-15.0) g/dL Hct 31.8 L (37.2-46.3) % MCH 26.5 L (27.0-32.0) pg MCHC 31.8 L (32.0-37.0) g/dL RDW 16.9 H (11.5-14.5) % Lymphocytes # 0.55 L (0.90-5.00) X 10*3/uL Sodium 132 L (135-145) mmol/L BUN 53.9 H (9.0-27.0) mg/dL Creatinine 2.0 H (0.6-1.5) mg/dL Est GFR (CKD-EPI) 25 L (>=60) BUN/Creatinine Ratio 26.95 H (12.00-20.00) Ratio Glucose 57 L (70-110) mg/dL POC Glucose (mg/dL) 64 L (70-110) mg/dL Total Bilirubin 3.3 H (0.3-1.2) mg/dL AST 506 H (13-35) U/L ALT 449 H (8-44) U/L Alkaline Phosphatase 417 H (41-126) U/L Total Protein 5.6 L (6.2-8.2) g/dL Albumin 3.1 L (3.8-4.9) g/dL Albumin/Globulin Ratio 1.24 L (1.60-3.17) Ratio Assessment and Plan (1) Cholecystitis, acute with cholelithiasis Current Visit: Yes Status: Acute Code(s): K80.00 - CALCULUS OF GALLBLADDER W ACUTE CHOLECYST W/O OBSTRUCTION SNOMED Code(s): 25044123 (2) Transaminitis Current Visit: Yes Status: Acute Code(s): R74.01 - ELEVATION OF LEVELS OF LIVER TRANSAMINASE LEVELS SNOMED Code(s): 372016096 (3) Atrial fibrillation Current Visit: No Status: Acute Code(s): I48.91 - UNSPECIFIED ATRIAL FIBRILLATION SNOMED Code(s): 21077068 (4) CAD (coronary artery disease) Current Visit: No Status: Acute Code(s): I25.10 - ATHSCL HEART DISEASE OF [place] CORONARY ARTERY W/O ANG PCTRS SNOMED Code(s): 09759500 (5) Diabetes Current Visit: No Status: Acute Code(s): E11.9 - TYPE 2 DIABETES MELLITUS WITHOUT COMPLICATIONS SNOMED Code(s): 12179800 (6) Hyperlipidemia Current Visit: No Status: Acute Code(s): E78.5 - HYPERLIPIDEMIA, UNSPECIFIED SNOMED Code(s): 01790356 (7) Hypertension Current Visit: No Status: Acute Code(s): I10 - ESSENTIAL (PRIMARY) HYPERTENSION SNOMED Code(s): 36392726 (8) Venous insufficiency Current Visit: No Status: Acute Code(s): I87.2 - VENOUS INSUFFICIENCY (CHRONIC) (PERIPHERAL) SNOMED Code(s): 20138607 Plan: Check CBC and CMP in the morning Await recommendations from surgeon Cut back patient's fluids to KVO Patient seen and evaluated by nurse practitioner, physician in agreement with pl an
[2023-06-02 09:09] LABS: ALT 315 U/L (8-44); AST 311 U/L (13-35); Albumin/Globulin Ratio 1.15 Ratio (1.60-3.17); Alkaline Phosphatase 490 U/L (41-126); BUN/Creat Ratio 28.28 Ratio (12.00-20.00); Blood Urea Nitrogen 50.9 mg/dL (9.0-27.0); Calcium 9.1 mg/dL (8.7-10.3); Carbon Dioxide 23.9 mmol/L (21.6-31.8); Chloride 95 mmol/L (96-109); Globulin 2.6 g/dL (1.6-3.3); Glucose 92 mg/dL (70-110); Potassium 4.4 mmol/L (3.5-5.5); Sodium 130 mmol/L (135-145); Total Bilirubin 3.1 mg/dL (0.3-1.2); Total Protein 5.6 g/dL (6.2-8.2)
[2023-06-02 10:12] LABS: Appearance,Urine Clear (Clear); Bacteria,Urine Rare /hpf; Bilirubin,Urine Negative (Negative); Blood,Urine Small (Negative); Color,Urine Yellow; Glucose,Urine (UA) Negative (Negative); Ketones,Urine Negative (Negative); Leukocyte Esterase,Urine Moderate (Negative); Mucus,Urine Rare /hpf; Nitrite,Urine Negative (Negative); PH, Urine 5.5 (5.0-8.0); Protein,Urine Negative (Negative); RBC,Urine 10 /hpf (0-5); Specific Gravity,Urine 1.008 (1.001-1.035); Squamous Epithelial Cell,Urine 1 /hpf (0-4); Urobilinogen,Urine <2.0 mg/dL (<2.0)
[2023-06-02 12:30] LABS: Glucose,Whole Blood 167 mg/dL (70-110)
[2023-06-02] MEDS: LEVOFLOXACIN 250MG-D5W PMX 250 MG in DEXTROSE/WATER 1 50ML.BAG IVPB SCH (12:31)
[2023-06-02] MEDS: SODIUM CHLORIDE 0.9% 500 ML 500 ML IV SCH (12:32)
--- NOTE | 2023-06-02 12:33 | P.PN ---
Subjective Progress Note Date: 06/02/23 CHIEF COMPLAINT: Cholecystitis HISTORY OF PRESENT ILLNESS: This is a 77-year-old female who presented with chest pain and upper abdominal pain with nausea and vomiting. Patient denies any abdominal pain. She is having flatus. She is tolerating low-fat diet. Afebrile. WBC remains normal at 7.57 creatinine 1.8 total bilirubin down from 3.3-3.1 LFTs are trending downwards but remain elevated PHYSICAL EXAM: VITAL SIGNS: Reviewed. GENERAL: Well-developed in no acute distress. ABDOMEN: Soft. Nondistended. Tenderness right upper quadrant with palpation. NEUROLOGIC: Alert and oriented. Cranial nerves II through XII grossly intact. ASSESSMENT: 1. Acute on chronic cholecystitis 2. Possible choledocholithiasis with elevated LFTs and total bilirubin 3. History of atrial fibrillation PLAN: -Consult GI service regarding possible choledocholithiasis -Continue low-fat diet -Repeat labs in a.m. -Continue to monitor -Hold Eliquis for possible surgical intervention. Last dose of Eliquis morning of 06/02/2019 -Further recommendations forthcoming per surgeon -Continue antibiotics Physician Router Operator Radial note has been reviewed by physician. Signing provider agrees with the documented findings, assessment, and plan of care. I have personally seen and examined the patient, reviewed the BILL POSTER INSTALLER /PAs history, exam and MDM and agree with the assessment and plan as written. Based on total visit time, I have performed more than 50% of the visit. As above: Patient having persistent liver enzyme elevation. Still with mild pain and tenderness. GI evaluated patient and have plans for ERCP. Await those findings. Objective - Vital Signs Vital signs: Vital Signs Temp 98.7 F 06/02/23 07:20 Pulse 79 06/02/23 10:00 Resp 16 06/02/23 07:20 BP 121/71 06/02/23 07:20 Pulse Ox 92 L 06/02/23 09:49 FiO2 Intake & Output 06/01/23 06/02/23 06/02/23 18:59 06:59 18:59 Intake Total 240 590 Output Total 325 282 Balance -85 -282 590 Intake: Oral 240 590 Output: Urine 325 Post Void Residual 282 Other: Voiding Method Diaper Diaper Diaper External Catheter External Catheter External Catheter # Voids 4 # Bowel Movements 1 - Labs CBC & Chem 7: 06/02/23 06:13 06/02/23 06:13 Labs: Abnormal Lab Results - Last 24 Hours (Table) 06/01/23 06/02/23 06/02/23 Range/Units 21:46 06:13 06:13 RBC 3.81 L (4.10-5.20) X 10*6/uL Hgb 10.1 L (12.0-15.0) g/dL Hct 31.8 L (37.2-46.3) % MCH 26.5 L (27.0-32.0) pg MCHC 31.8 L (32.0-37.0) g/dL RDW 16.9 H (11.5-14.5) % Lymphocytes # 0.55 L (0.90-5.00) X 10*3/uL Sodium (135-145) mmol/L Chloride (96-109) mmol/L BUN (9.0-27.0) mg/dL Creatinine (0.6-1.5) mg/dL Est GFR (CKD-EPI) (>=60) BUN/Creatinine Ratio (12.00-20.00) Ratio POC Glucose (mg/dL) 64 L (70-110) mg/dL Hemoglobin A1c 7.5 H (<=6.0) % Total Bilirubin (0.3-1.2) mg/dL AST (13-35) U/L ALT (8-44) U/L Alkaline Phosphatase (41-126) U/L Total Protein (6.2-8.2) g/dL Albumin (3.8-4.9) g/dL Albumin/Globulin Ratio (1.60-3.17) Ratio Urine Blood (Negative) Ur Leukocyte Esterase (Negative) Urine RBC (0-5) /hpf Urine Bacteria (None) /hpf Urine Mucus (None) /hpf 06/02/23 06/02/23 Range/Units 06:13 09:30 RBC (4.10-5.20) X 10*6/uL Hgb (12.0-15.0) g/dL Hct (37.2-46.3) % MCH (27.0-32.0) pg MCHC (32.0-37.0) g/dL RDW (11.5-14.5) % Lymphocytes # (0.90-5.00) X 10*3/uL Sodium 130 L (135-145) mmol/L Chloride 95 L (96-109) mmol/L BUN 50.9 H (9.0-27.0) mg/dL Creatinine 1.8 H (0.6-1.5) mg/dL Est GFR (CKD-EPI) 28 L (>=60) BUN/Creatinine Ratio 28.28 H (12.00-20.00) Ratio POC Glucose (mg/dL) (70-110) mg/dL Hemoglobin A1c (<=6.0) % Total Bilirubin 3.1 H (0.3-1.2) mg/dL AST 311 H (13-35) U/L ALT 315 H (8-44) U/L Alkaline Phosphatase 490 H (41-126) U/L Total Protein 5.6 L (6.2-8.2) g/dL Albumin 3.0 L (3.8-4.9) g/dL Albumin/Globulin Ratio 1.15 L (1.60-3.17) Ratio Urine Blood Small H (Negative) Ur Leukocyte Esterase Moderate H (Negative) Urine RBC 10 H (0-5) /hpf Urine Bacteria Rare H (None) /hpf Urine Mucus Rare H (None) /hpf
--- NOTE | 2023-06-02 12:48 | P.NPCON ---
History of Present Illness - Reason for Consult acute renal failure, chronic renal failure - History of Present Illness Reason for consultation: Acute kidney injury on chronic kidney disease History of present illness: Patient is a 77-year-old female seen in renal consultation for acute kidney injury on chronic kidney disease. Patient has chronic kidney disease stage IIIa with baseline creatinine recently in the range of 1.2-1.6 although quite variable. Creatinine this admission was as low as 0.86 and peaked at 2.0 this admission yesterday. Today it is down to 1.8. She is currently receiving IV fluids. Patient came to the hospital due to nausea and vomiting going on for about 1 day prior to admission. Patient also felt like she was having chest discomfort. Patient denies history of coronary artery disease. Denies family history of renal disease. She is tolerating oral intake. Patient does have longstanding history of diabetes. CAT scan showed no evidence of hydronephrosis. Prior echocardiogram showed preserved ejection fraction. Patient takes diuretics at home which are currently held. She currently denies chest pain or shortness of breath. She is being followed by general surgery for acute on chronic cholecystitis. There is also concern for choledocholithiasis for which GI has been consulted. Vital signs are stable. General: No acute distress. HEENT: Head exam is unremarkable. LUNGS: No audible rhonchi or wheezes. HEART: Rate and Rhythm are regular. ABDOMEN: Mild generalized tenderness. EXTREMITITES: No edema. Past Medical History Past Medical History: Atrial Fibrillation, Coronary Artery Disease (CAD), CVA/TIA, Diabetes Mellitus, Deep Vein Thrombosis (DVT), Hypertension, Myocardial Infarction (CT), Osteoarthritis (OA) Additional Past Medical History / Comment(s): hx tia, hx stroke behind left eye., lt eye macular , states hospitalized with Covid April 2019 with life support and stage 3 kidney failure., hx of fall with hip fx and surgery 01/13/[address] [facility] for Rehab. DVT during ., varicose veins, states painful sore left heel., hx of t.b. as a child with scarring on lungs. Last Myocardial Infarction Date:: unknown date History of Any Multi-Drug Resistant Organisms: MRSA, VRE Date of last positivie culture/infection: 09/09/22 MRSA & VRE ([facility]-Scanned) MDRO Source:: Blood Culture Past Surgical History: Adenoidectomy, Hysterectomy, Orthopedic Surgery, Tonsillectomy, Tubal Ligation Additional Past Surgical History / Comment(s): pilonidal cyst twice as child, rt knee arthroscopy, krystyna cataracts, krystyna great toe sx, ORIF Left hip (01/13/22) Past Anesthesia/Blood Transfusion Reactions: Previous Problems w/ Anesthesia, Postoperative Nausea & Vomiting (PONV) Additional Past Anesthesia/Blood Transfusion Reaction / Comment(s): difficulty waking up after sx. clausterphobia. 1961 blood transfusion(during child ) pt stated had palpitations after 2nd unit given Past Psychological History: Anxiety Smoking Status: Never smoker Past Alcohol Use History: None Reported Past Drug Use History: None Reported - Past Family History Mother Family Medical History: Cancer Additional Family Medical History / Comment(s): lung cancer Father Family Medical History: Coronary Artery Disease (CAD) Additional Family Medical History / Comment(s): heart disease, kidney disese Medications and Allergies Home Medications Medication Instructions Recorded Confirmed Type Apixaban [Eliquis] 5 mg PO BID 08/13/20 05/30/23 History Sacubitril/Valsartan [Entresto 24 1 tab PO BID 01/12/22 05/30/23 History mg-26 mg Tablet] Omeprazole [PriLOSEC] 20 mg PO DAILY 03/05/22 05/30/23 History Bumetanide [BUMEX] 2 mg PO DAILY 09/09/22 05/30/23 History Ipratropium [place] [Atrovent Hfa] 2 puff INHALATION RT-QID 09/09/22 05/30/23 History ALPRAZolam [Xanax] 0.25 mg PO TID 05/30/23 05/30/23 History Amiodarone [Cordarone] 100 mg PO DAILY 05/30/23 05/30/23 History Ammonium Lactate Lotion 1 applic TOPICAL BID PRN 05/30/23 05/30/23 History [Lac-Hydrin 12% Lotion] Ascorbic Acid [Vitamin C with Samina 1,000 mg PO DAILY 05/30/23 05/30/23 History Hips] Aspirin 81 mg PO DAILY 05/30/23 05/30/23 History Atorvastatin [Lipitor] 20 mg PO DAILY 05/30/23 05/30/23 History Cholecalciferol [Vitamin D3 (25 25 mcg PO DAILY 05/30/23 05/30/23 History Mcg = 1000 Iu)] Escitalopram [Lexapro] 10 mg PO DAILY 05/30/23 05/30/23 History Furosemide [Lasix] 60 mg PO BID 05/30/23 05/30/23 History Insulin Aspart [NovoLOG Flexpen] See Protocol SQ AC-TID 05/30/23 05/30/23 History Insulin Glargine,Hum.rec.anlog 15 units SQ HS 05/30/23 05/30/23 History [Toujeo Max Solostar] Insulin Glargine,Hum.rec.anlog 24 units SQ DAILY 05/30/23 05/30/23 History [Toujeo Max Solostar] Multivit-Min/FA/Lycopen/Lutein 1 tab PO DAILY 05/30/23 05/30/23 History [Centrum Silver Tablet] Nystatin [Nystop] 1 applic TOPICAL TUTH 05/30/23 05/30/23 History Potassium Chloride ER [K-Dur 20] 20 meq PO DAILY 05/30/23 05/30/23 History SILVER sulfADIAZINE Cream 1 applic TOPICAL TUTH 05/30/23 05/30/23 History [Silvadene 1% Cream] Allergies Allergy/AdvReac Type Severity Reaction Status Date / Time shellfish derived [Shellfish] Allergy Severe vomiting Verified 05/30/23 22:07 -very ill adhesive Allergy skin red Verified 05/30/23 22:07 and murguia, tears skin aluminum Allergy skin turns Verified 05/30/23 22:07 black, passes out Antihistamines - Allergy heart Verified 05/30/23 22:07 Ethylenediamine palpitations codeine Allergy migraines Verified 05/30/23 22:07 epinephrine Allergy heart Verified 05/30/23 22:07 palpitations fluticasone [From Flonase] Allergy Unknown Verified 05/30/23 22:07 hydrogen peroxide Allergy murguia and Verified 05/30/23 22:07 causes infection latex Allergy passes out Verified 05/30/23 22:07 lidocaine Allergy gtts in Verified 05/30/23 22:07 eyes and passed out nickel Allergy turns skin Verified 05/30/23 22:07 black and passes out procaine HCl [From Novocain] Allergy passed Verified 05/30/23 22:07 out- due to epinephrine in it. thiopental sodium Allergy needed cpr Verified 05/30/23 22:07 [From Pentothal] resusitation methocarbamol [From Robaxin] AdvReac Hallucinati Verified 05/30/23 22:07 ons surgical felicita Allergy Severe had to be Uncoded 05/30/23 22:07 removed 2 days post-op petroleum products AdvReac passes out Uncoded 05/30/23 22:07 or does not feel well. (diesel, oils) Physical Exam Vitals: Vital Signs Temp Pulse Pulse Pulse Resp BP Pulse Ox 06/02/23 10:00 79 06/02/23 09:49 79 92 L 06/02/23 07:20 98.7 F 80 16 121/71 93 L 06/02/23 02:00 98.3 F 80 16 103/62 95 06/01/23 20:00 98.9 F 73 16 113/61 94 L 06/01/23 19:57 78 06/01/23 19:47 75 06/01/23 16:36 78 06/01/23 16:25 74 06/01/23 15:00 98.7 F 73 16 114/67 96 Intake and Output 06/01/23 06/02/23 06/02/23 22:59 06:59 14:59 Intake Total 240 590 Output Total 607 Balance -367 590 Intake: Oral 240 590 Output: Urine 325 Post Void Residual 282 Other: Voiding Method Diaper Diaper External Catheter External Catheter # Voids 1 4 # Bowel Movements 1 Results - Lab Results Most recent lab results Calcium 9.1 mg/dL (8.7-10.3) 06/02/23 06:13 Magnesium 2.1 mg/dL (1.6-2.3) 06/02/23 08:49 06/02/23 06:13 06/02/23 06:13 Assessment and Plan Plan: Assessment: 1. Acute kidney injury secondary to ATN secondary to hypovolemia and vomiting. Creatinine peaked at 2.0 this admission and is 1.8 today. No hydronephrosis noted on CAT scan. No proteinuria on UA. 2. Chronic kidney disease stage IIIa with baseline creatinine recently 1.2-1.6 although quite variable. Etiology is nephrosclerosis. 3. Acute on chronic cholecystitis with concern for choledocholithiasis. Surgery and GI following. 4. Chronic diastolic CHF. 5. Hyponatremia secondary to acute kidney injury. 6. Diabetes mellitus. Plan: Heplock IVFs. Encouraged oral intake. Add 1500 cc fluid restriction. Avoid nephrotoxins. Continue to monitor renal function and urine output. Continue to hold diuretics for now. Maintain Entresto as blood pressure and GFR stable. Thank you for the consultation. I will continue to follow the patient with you during her hospital stay.
--- NOTE | 2023-06-02 14:04 | P.CONS ---
History of Present Illness - Reason for Consult Consult date: 06/02/23 Med management Requesting physician: Bandar Baker - Chief Complaint Chest pain - History of Present Illness Pleasant 77-year-old female who presented to the emergency department 2 days ago with complaints of chest pain and pressure that was substernal, lower. She has a past medical history including atrial fibrillation, coronary artery disease, CVA/TIA, diabetes mellitus, deep vein thrombosis, hypertension, myocardial infarction and osteoarthritis. She was noted to have elevated LFTs, and underwent CT of the abdomen pelvis with findings of distended gallbladder with layering sludge or tiny calculi. She then underwent ultrasound of the gallbladder which also reported small gallstones versus sludge within the gallbladder, common bile duct not visualized. General surgery was initially consulted, and they have been monitoring patient. Due to continued elevated liver enzymes, gastroenterology was consulted for evaluation of possible choledocholithiasis. Today's labs WBC 7.5 hemoglobin 10.1 hematocrit 31 platelet count 190,000 INR 1.0 sodium 130 potassium 4.4 BUN 50 creatinine 1.8 total bilirubin 3.1 AST 311 ALT 315 alkaline phosphatase 490 Review of Systems REVIEW OF SYSTEMS: CARDIOPULMONARY: No chest pain or shortness of breath. Gastrointestinal: No abdominal pain. No nausea or vomiting. No hematemesis, coffee-ground emesis. No rectal bleeding, or melena. GENITOURINARY: No dysuria or hematuria. MUSCULOSKELETAL: Reports normal range of motion., Joint pain. SKIN: No rashes. No jaundice. ENDOCRINE: No chills, fevers. No excessive weight gain or loss. No polydipsia or polyuria. PSYCHIATRIC: Unremarkable. NEUROLOGY: No change in mental status. Denies dizziness, headache. ENT: Vision unremarkable. CONSTITUTIONAL: No recent weight loss. No fever, chills, night sweats. Past Medical History Past Medical History: Atrial Fibrillation, Coronary Artery Disease (CAD), CVA/TIA, Diabetes Mellitus, Deep Vein Thrombosis (DVT), Hypertension, Myocardial Infarction (NE), Osteoarthritis (OA) Additional Past Medical History / Comment(s): hx tia, hx stroke behind left eye., lt eye macular , states hospitalized with Covid April 2019 with life hanna pport and stage 3 kidney failure., hx of fall with hip fx and surgery 01/13/22 went to [facility] for Rehab. DVT during ., varicose veins, states painful sore left heel., hx of t.b. as a child with scarring on lungs. 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 clausterphobia. 1960 blood transfusion(during child ) pt stated had palpitations after 2nd unit given Past Psychological History: Anxiety Smoking Status: Never smoker Past Alcohol Use History: None Reported Past Drug Use History: None Reported - Past Family History Mother Family Medical History: Cancer Additional Family Medical History / Comment(s): lung cancer Father Family Medical History: Coronary Artery Disease (CAD) Additional Family Medical History / Comment(s): heart disease, kidney disese Medications and Allergies Home Medications Medication Instructions Recorded Confirmed Type Apixaban [Eliquis] 5 mg PO BID 08/13/20 05/30/23 History Sacubitril/Valsartan [Entresto 24 1 tab PO BID 01/12/22 05/30/23 History mg-26 mg Tablet] Omeprazole [PriLOSEC] 20 mg PO DAILY 03/05/22 05/30/23 History Bumetanide [BUMEX] 2 mg PO DAILY 09/09/22 05/30/23 History Ipratropium [place] [Atrovent Hfa] 2 puff INHALATION RT-QID 09/09/22 05/30/23 History ALPRAZolam [Xanax] 0.25 mg PO TID 05/30/23 05/30/23 History Amiodarone [Cordarone] 100 mg PO DAILY 05/30/23 05/30/23 History Ammonium Lactate Lotion 1 applic TOPICAL BID PRN 05/30/23 05/30/23 History [Lac-Hydrin 12% Lotion] Ascorbic Acid [Vitamin C with Samina 1,000 mg PO DAILY 05/30/23 05/30/23 History Hips] Aspirin 81 mg PO DAILY 05/30/23 05/30/23 History Atorvastatin [Lipitor] 20 mg PO DAILY 05/30/23 05/30/23 History Cholecalciferol [Vitamin D3 (25 25 mcg PO DAILY 05/30/23 05/30/23 History Mcg = 1000 Iu)] Escitalopram [Lexapro] 10 mg PO DAILY 05/30/23 05/30/23 History Furosemide [Lasix] 60 mg PO BID 05/30/23 05/30/23 History Insulin Aspart [NovoLOG Flexpen] See Protocol SQ AC-TID 05/30/23 05/30/23 H istory Insulin Glargine,Hum.rec.anlog 15 units SQ HS 05/30/23 05/30/23 History [Toujeo Max Solostar] Insulin Glargine,Hum.rec.anlog 24 units SQ DAILY 05/30/23 05/30/23 History [Toujeo Max Solostar] Multivit-Min/FA/Lycopen/Lutein 1 tab PO DAILY 05/30/23 05/30/23 History [Centrum Silver Tablet] Nystatin [Nystop] 1 applic TOPICAL TUTH 05/30/23 05/30/23 History Potassium Chloride ER [K-Dur 20] 20 meq PO DAILY 05/30/23 05/30/23 History SILVER sulfADIAZINE Cream 1 applic TOPICAL TUTH 05/30/23 05/30/23 History [Silvadene 1% Cream] Allergies Allergy/AdvReac Type Severity Reaction Status Date / Time shellfish derived [Shellfish] Allergy Severe vomiting Verified 05/30/23 22:07 -very ill adhesive Allergy skin red Verified 05/30/23 22:07 and murguia, tears skin aluminum Allergy skin turns Verified 05/30/23 22:07 black, passes out Antihistamines - Allergy heart Verified 05/30/23 22:07 Ethylenediamine palpitations codeine Allergy migraines Verified 05/30/23 22:07 epinephrine Allergy heart Verified 05/30/23 22:07 palpitations fluticasone [From Flonase] Allergy Unknown Verified 05/30/23 22:07 hydrogen peroxide Allergy murguia and Verified 05/30/23 22:07 causes infection latex Allergy passes out Verified 05/30/23 22:07 lidocaine Allergy gtts in Verified 05/30/23 22:07 eyes and passed out nickel Allergy turns skin Verified 05/30/23 22:07 black and passes out procaine HCl [From Novocain] Allergy passed Verified 05/30/23 22:07 out- due to epinephrine in it. thiopental sodium Allergy needed cpr Verified 05/30/23 22:07 [From Pentothal] resusitation methocarbamol [From Robaxin] AdvReac Hallucinati Verified 05/30/23 22:07 ons surgical felicita Allergy Severe had to be Uncoded 05/30/23 22:07 removed 2 days post-op petroleum products AdvReac passes out Uncoded 05/30/23 22:07 or does not feel well. (diesel, oils) Physical Exam Vitals: Vital Signs Temp Pulse Pulse Pulse Resp BP Pulse Ox 06/02/23 10:00 79 06/02/23 09:49 79 92 L 06/02/23 07:20 98.7 F 80 16 121/71 93 L 06/02/23 02:00 98.3 F 80 16 103/62 95 06/01/23 20:00 98.9 F 73 16 113/61 94 L 06/01/23 19:57 78 06/01/23 19:47 75 06/01/23 16:36 78 06/01/23 16:25 74 06/01/23 15:00 98.7 F 73 16 114/67 96 06/01/23 12:38 90 Intake and Output 06/01/23 06/02/23 06/02/23 22:59 06:59 14:59 Intake Total 240 590 Output Total 607 Balance -367 590 Intake: Oral 240 590 Output: Urine 325 Post Void Residual 282 Other: Voiding Method Diaper Diaper External Catheter External Catheter # Voids 1 4 # Bowel Movements 1 General appearance: The patient is alert, oriented, appears in no acute distress. HET: Head is normocephalic and atraumatic. Conjunctiva pink. Sclera anicteric. Neck: Supple without lymphadenopathy. Trachea midline. Heart: Regular. Lungs: Equal expansion, normal respiratory effort. Abdomen: Soft, nontender, nondistended with bowel sounds. No guarding or rigidity. Skin: No rashes. No jaundice. Extremities: Normal skin color and turgor. No pedal edema. Neurological: No focal deficits. Alert and oriented x3. Results CBC & Chem 7: 06/02/23 06:13 06/02/23 06:13 Labs: Abnormal Lab Results - Last 24 Hours (Table) 06/01/23 06/02/23 06/02/23 Range/Units 21:46 06:13 06:13 RBC 3.81 L (4.10-5.20) X 10*6/uL Hgb 10.1 L (12.0-15.0) g/dL Hct 31.8 L (37.2-46.3) % MCH 26.5 L (27.0-32.0) pg MCHC 31.8 L (32.0-37.0) g/dL RDW 16.9 H (11.5-14.5) % Lymphocytes # 0.55 L (0.90-5.00) X 10*3/uL Sodium (135-145) mmol/L Chloride (96-109) mmol/L BUN (9.0-27.0) mg/dL Creatinine (0.6-1.5) mg/dL Est GFR (CKD-EPI) (>=60) BUN/Creatinine Ratio (12.00-20.00) Ratio POC Glucose (mg/dL) 64 L (70-110) mg/dL Hemoglobin A1c 7.5 H (<=6.0) % Total Bilirubin (0.3-1.2) mg/dL AST (13-35) U/L ALT (8-44) U/L Alkaline Phosphatase (41-126) U/L Total Protein (6.2-8.2) g/dL Albumin (3.8-4.9) g/dL Albumin/Globulin Ratio (1.60-3.17) Ratio Urine Blood (Negative) Ur Leukocyte Esterase (Negative) Urine RBC (0-5) /hpf Urine Bacteria (None) /hpf Urine Mucus (None) /hpf 06/02/23 06/02/23 06/02/23 Range/Units 06:13 09:30 12:28 RBC (4.10-5.20) X 10*6/uL Hgb (12.0-15.0) g/dL Hct (37.2-46.3) % MCH (27.0-32.0) pg MCHC (32.0-37.0) g/dL RDW (11.5-14.5) % Lymphocytes # (0.90-5.00) X 10*3/uL Sodium 130 L (135-145) mmol/L Chloride 95 L (96-109) mmol/L BUN 50.9 H (9.0-27.0) mg/dL Creatinine 1.8 H (0.6-1.5) mg/dL Est GFR (CKD-EPI) 28 L (>=60) BUN/Creatinine Ratio 28.28 H (12.00-20.00) Ratio POC Glucose (mg/dL) 167 H (70-110) mg/dL Hemoglobin A1c (<=6.0) % Total Bilirubin 3.1 H (0.3-1.2) mg/dL AST 311 H (13-35) U/L ALT 315 H (8-44) U/L Alkaline Phosphatase 490 H (41-126) U/L Total Protein 5.6 L (6.2-8.2) g/dL Albumin 3.0 L (3.8-4.9) g/dL Albumin/Globulin Ratio 1.15 L (1.60-3.17) Ratio Urine Blood Small H (Negative) Ur Leukocyte Esterase Moderate H (Negative) Urine RBC 10 H (0-5) /hpf Urine Bacteria Rare H (None) /hpf Urine Mucus Rare H (None) /hpf Comments: Gallbladder ultrasound: Small gallstones versus sludge within the gallbladder. Nonvisualization of the common bile duct. Negative ultrasound Morelos sign. Limited evaluation due to bowel gas. No hydronephrosis. CT abdomen and pelvis with contrast: Moderate cardiomegaly and coronary artery calcifications. No evidence of failure. Small to moderate size hiatal hernia. Distended gallbladder with layering sludge or tiny calculi. Correlate clinically for possibility of developing cholecystitis. Moderate colonic stool throughout, rectum inspected and distended with stool up to 6.7 cm. Multiple colonic diverticula without signs of diverticulitis. Left hip arthroplasty is completely dislocated from the Aceabulum and migrates a few centimeters above the acetabulum Assessment and Plan (1) Transaminitis Narrative/Plan: 27-year-old female presented to the emergency department a couple days ago with complaints of chest pain, epigastric pain. She was noted to have significantly elevated LFTs underwent imaging and noted to have distended gallbladder with gallbladder sludge versus stones. She was initially seen by general surgery, who at this point is delaying surgery. Concerns for possible choledocholithi asis. LFTs are consistent with cholestatic pattern. Need to consider possible choledocholithiasis. Consider MRCP versus ERCP. Current Visit: Yes Status: Acute Code(s): R74.01 - ELEVATION OF LEVELS OF LIVER TRANSAMINASE LEVELS SNOMED Code(s): 537100734 (2) Cholecystitis, acute with cholelithiasis Narrative/Plan: General surgery following Current Visit: Yes Status: Acute Code(s): K80.00 - CALCULUS OF GALLBLADDER W ACUTE CHOLECYST W/O OBSTRUCTION SNOMED Code(s): 88370103 (3) Abdominal pain Current Visit: Yes Status: Acute Code(s): R10.9 - UNSPECIFIED ABDOMINAL PAIN SNOMED Code(s): 48228373 (4) Atrial fibrillation Current Visit: No Status: Acute Code(s): I48.91 - UNSPECIFIED ATRIAL FIBRILLATION SNOMED Code(s): 02658119 Plan: 1. Continue symptomatic and supportive care 2. Daily LFTs 3. Repeat INR 4. Plan for ERCP tomorrow. Risks and benefits discussed with patient, patient seemingly understands and is agreeable to proceed 5. N.p.o. after midnight 6. Hold anticoagulation 7. Continue IV antibiotics 8. Continue with recommendations from general surgery Thank you for this consultation, we will continue to follow. Dr. Adolfo Murphy I agree with the dictator's note, documented as a scribe by Shantell Mandel.
[2023-06-02 14:49] LABS: INR 1.1 (<1.2); Prothrombin Time 11.5 sec (10.0-12.5)
[2023-06-02 17:35] LABS: Glucose,Whole Blood 211 mg/dL (70-110)
[2023-06-02 20:05] LABS: Glucose,Whole Blood 203 mg/dL (70-110)
[2023-06-03 07:45] LABS: Glucose,Whole Blood 198 mg/dL (70-110)
[2023-06-03 08:42] LABS: HCT 29.7 % (37.2-46.3); HGB 9.7 g/dL (12.0-15.0); MCH 26.9 pg (27.0-32.0); MCHC 32.7 g/dL (32.0-37.0); MCV 82.5 FL (80.0-97.0); Mean Platelet Volume 12.5 FL (9.5-12.2); NRBC Per 100 WBC 0 X 10*3/uL (0.00-0.01); Platelet Count 217 X 10*3/uL (140-440); WBC 6.77 X 10*3/uL (4.50-10.00)
--- NOTE | 2023-06-03 08:45 | P.PN ---
Subjective Progress Note Date: 06/03/23 Principal diagnosis: epigastric pain This is a 77-year-old female who presented to the emergency room with complaints of epigastric and right upper quadrant abdominal discomfort. CT and ultrasound of the abdomen showed gallbladder sludge. Labs on admission showed an increase in AST and ALT. She was seen and evaluated by Dr. Baker and patient was unsure if she wanted to proceed with gallbladder removal or not. Patient's abdominal pain has improved. As of this morning she is leaning towards having the surgery. Patient does report an increase in swelling. She is tolerating diet and vitals are stable. 06/03/2023 Patient was seen and evaluated by Dr. Murphy yesterday who is recommending an ERCP which is planned for today. Patient is n.p.o. and Eliquis is on hold. She is seen this morning laying in bed, reports she is comfortable and denies any abdominal pain currently. Objective - Vital Signs Vital signs: Vital Signs Temp 98.0 F 06/03/23 07:00 Pulse 74 06/03/23 08:34 Resp 16 06/03/23 02:41 BP 127/67 06/03/23 07:00 Pulse Ox 94 L 06/03/23 08:34 FiO2 Intake & Output 06/02/23 06/03/23 06/03/23 18:59 06:59 18:59 Intake Total 926 310 Output Total 600 950 Balance 326 -640 Intake: Intake, IV Titration 60 Amount Sodium Chloride 0.9% 500 60 ml 500 ml @ 20 mls/hr IV .Q24H [facility] Rx#:[id number] Oral 926 250 Output: Urine 600 650 Emesis 300 Other: Voiding Method Diaper Diaper External Catheter External Catheter # Bowel Movements 0 # Emeses 1 - Constitutional General appearance: Present: cooperative, no acute distress - EENT Eyes: Present: PERRLA - Neck Neck: Present: normal ROM. Absent: lymphadenopathy, rigidity - Respiratory Respiratory: bilateral: CTA - Cardiovascular Rhythm: irregularly irregular - Gastrointestinal General gastrointestinal: Present: soft. Absent: tenderness - Integumentary Integumentary: Present: normal, normal turgor - Musculoskeletal Musculoskeletal: Present: generalized weakness - Psychiatric Psychiatric: Present: A&O x's 3, appropriate affect, intact judgment & insight - Labs CBC & Chem 7: 06/03/23 06:05 06/02/23 06:13 Labs: Abnormal Lab Results - Last 24 Hours (Table) 06/02/23 06/02/23 06/02/23 Range/Units 06:13 06:13 09:30 RBC (4.10-5.20) X 10*6/uL Hgb (12.0-15.0) g/dL Hct (37.2-46.3) % MCH (27.0-32.0) pg RDW (11.5-14.5) % MPV (9.5-12.2) FL Sodium 130 L (135-145) mmol/L Chloride 95 L (96-109) mmol/L BUN 50.9 H (9.0-27.0) mg/dL Creatinine 1.8 H (0.6-1.5) mg/dL Est GFR (CKD-EPI) 28 L (>=60) BUN/Creatinine Ratio 28.28 H (12.00-20.00) Ratio POC Glucose (mg/dL) (70-110) mg/dL Hemoglobin A1c 7.5 H (<=6.0) % Total Bilirubin 3.1 H (0.3-1.2) mg/dL AST 311 H (13-35) U/L ALT 315 H (8-44) U/L Alkaline Phosphatase 490 H (41-126) U/L Total Protein 5.6 L (6.2-8.2) g/dL Albumin 3.0 L (3.8-4.9) g/dL Albumin/Globulin Ratio 1.15 L (1.60-3.17) Ratio Urine Blood Small H (Negative) Ur Leukocyte Esterase Moderate H (Negative) Urine RBC 10 H (0-5) /hpf Urine Bacteria Rare H (None) /hpf Urine Mucus Rare H (None) /hpf 06/02/23 06/02/23 06/02/23 Range/Units 12:28 17:34 20:04 RBC (4.10-5.20) X 10*6/uL Hgb (12.0-15.0) g/dL Hct (37.2-46.3) % MCH (27.0-32.0) pg RDW (11.5-14.5) % MPV (9.5-12.2) FL Sodium (135-145) mmol/L Chloride (96-109) mmol/L BUN (9.0-27.0) mg/dL Creatinine (0.6-1.5) mg/dL Est GFR (CKD-EPI) (>=60) BUN/Creatinine Ratio (12.00-20.00) Ratio POC Glucose (mg/dL) 167 H 211 H 203 H (70-110) mg/dL Hemoglobin A1c (<=6.0) % Total Bilirubin (0.3-1.2) mg/dL AST (13-35) U/L ALT (8-44) U/L Alkaline Phosphatase (41-126) U/L Total Protein (6.2-8.2) g/dL Albumin (3.8-4.9) g/dL Albumin/Globulin Ratio (1.60-3.17) Ratio Urine Blood (Negative) Ur Leukocyte Esterase (Negative) Urine RBC (0-5) /hpf Urine Bacteria (None) /hpf Urine Mucus (None) /hpf 06/03/23 06/03/23 Range/Units 06:05 07:42 RBC 3.60 L (4.10-5.20) X 10*6/uL Hgb 9.7 L (12.0-15.0) g/dL Hct 29.7 L (37.2-46.3) % MCH 26.9 L (27.0-32.0) pg RDW 17.0 H (11.5-14.5) % MPV 12.5 H (9.5-12.2) FL Sodium (135-145) mmol/L Chloride (96-109) mmol/L BUN (9.0-27.0) mg/dL Creatinine (0.6-1.5) mg/dL Est GFR (CKD-EPI) (>=60) BUN/Creatinine Ratio (12.00-20.00) Ratio POC Glucose (mg/dL) 198 H (70-110) mg/dL Hemoglobin A1c (<=6.0) % Total Bilirubin (0.3-1.2) mg/dL AST (13-35) U/L ALT (8-44) U/L Alkaline Phosphatase (41-126) U/L Total Protein (6.2-8.2) g/dL Albumin (3.8-4.9) g/dL Albumin/Globulin Ratio (1.60-3.17) Ratio Urine Blood (Negative) Ur Leukocyte Esterase (Negative) Urine RBC (0-5) /hpf Urine Bacteria (None) /hpf Urine Mucus (None) /hpf Assessment and Plan (1) Cholecystitis, acute with cholelithiasis Current Visit: Yes Status: Acute Code(s): K80.00 - CALCULUS OF GALLBLADDER W ACUTE CHOLECYST W/O OBSTRUCTION SNOMED Code(s): 87813235 (2) Transaminitis Current Visit: Yes Status: Acute Code(s): R74.01 - ELEVATION OF LEVELS OF LIVER TRANSAMINASE LEVELS SNOMED Code(s): 967635476 (3) Atrial fibrillation Current Visit: No Status: Acute Code(s): I48.91 - UNSPECIFIED ATRIAL FIBRILLATION SNOMED Code(s): 68979441 (4) CAD (coronary artery disease) Current Visit: No Status: Acute Code(s): I25.10 - ATHSCL HEART DISEASE OF [place] CORONARY ARTERY W/O ANG PCTRS SNOMED Code(s): 40226664 (5) Diabetes Current Visit: No Status: Acute Code(s): E11.9 - TYPE 2 DIABETES MELLITUS WITHOUT COMPLICATIONS SNOMED Code(s): 91252410 (6) Hyperlipidemia Current Visit: No Status: Acute Code(s): E78.5 - HYPERLIPIDEMIA, UNSPECIFIED SNOMED Code(s): 34212066 (7) Hypertension Current Visit: No Status: Acute Code(s): I10 - ESSENTIAL (PRIMARY) HYPE RTENSION SNOMED Code(s): 05816357 (8) Venous insufficiency Current Visit: No Status: Acute Code(s): I87.2 - VENOUS INSUFFICIENCY (CHRONIC) (PERIPHERAL) SNOMED Code(s): 89862657 Plan: Check CBC and CMP in the morning Await ERCP Patient seen and evaluated by nurse practitioner, physician in agreement with plan
[2023-06-03 09:04] LABS: Magnesium 2.1 mg/dL (1.5-2.4)
[2023-06-03 09:15] LABS: ALT 253 U/L (8-44); AST 244 U/L (13-35); Albumin 2.9 g/dL (3.8-4.9); Albumin/Globulin Ratio 1.12 Ratio (1.60-3.17); Alkaline Phosphatase 609 U/L (41-126); BUN/Creat Ratio 28.63 Ratio (12.00-20.00); Blood Urea Nitrogen 54.4 mg/dL (9.0-27.0); Calcium 9.1 mg/dL (8.7-10.3); Chloride 94 mmol/L (96-109); Globulin 2.6 g/dL (1.6-3.3); Glucose 196 mg/dL (70-110); Potassium 4.5 mmol/L (3.5-5.5); Sodium 130 mmol/L (135-145); Total Bilirubin 3.7 mg/dL (0.3-1.2); Total Protein 5.5 g/dL (6.2-8.2)
[2023-06-03 09:52] LABS: Glucose,Whole Blood 232 mg/dL (70-110)
[2023-06-03] MEDS: NYSTATIN 100,000 UNIT/GM POWD 15 GM TOPICAL SCH (09:58)
[2023-06-03] MEDS: LACTATED RINGERS 1,000 ML IV SCH (10:02)
[2023-06-03] MEDS: FUROSEMIDE 10 MG/ML 2 ML VIAL IV ONE (11:02)
[2023-06-03 11:52] LABS: Glucose,Whole Blood 185 mg/dL (70-110)
--- NOTE | 2023-06-03 12:12 | P.PN ---
Subjective Patient is seen in follow-up for acute kidney injury on chronic kidney disease. Off IV fluids. Creatinine 1.9 today. Scheduled for ERCP today. Admits to generalized swelling. Vital signs are stable. General: No acute distress. HEENT: Head exam is unremarkable. LUNGS: No audible rhonchi or wheezes. HEART: Rate and Rhythm are regular. ABDOMEN: Soft, no distention. EXTREMITITES: 1+ edema. Objective - Vital Signs Vital signs: Vital Signs Temp 98.0 F 06/03/23 07:00 Pulse 76 06/03/23 12:00 Resp 16 06/03/23 02:41 BP 127/67 06/03/23 07:00 Pulse Ox 94 L 06/03/23 08:34 FiO2 Intake & Output 06/02/23 06/03/23 06/03/23 18:59 06:59 18:59 Intake Total 926 310 Output Total 600 950 Balance 326 -640 Intake: Intake, IV Titration 60 Amount Sodium Chloride 0.9% 500 60 ml 500 ml @ 20 mls/hr IV .Q24H [facility] Rx#:[id number] Oral 926 250 Output: Urine 600 650 Emesis 300 Other: Voiding Method Diaper Diaper Diaper External Catheter External Catheter Incontinent External Catheter # Bowel Movements 0 # Emeses 1 - Labs CBC & Chem 7: 06/03/23 06:05 06/03/23 06:05 Labs: Abnormal Lab Results - Last 24 Hours (Table) 06/02/23 06/02/23 06/02/23 Range/Units 12:28 17:34 20:04 RBC (4.10-5.20) X 10*6/uL Hgb (12.0-15.0) g/dL Hct (37.2-46.3) % MCH (27.0-32.0) pg RDW (11.5-14.5) % MPV (9.5-12.2) FL Sodium (135-145) mmol/L Chloride (96-109) mmol/L Anion Gap (4.00-12.00) mmol/L BUN (9.0-27.0) mg/dL Creatinine (0.6-1.5) mg/dL Est GFR (CKD-EPI) (>=60) BUN/Creatinine Ratio (12.00-20.00) Ratio Glucose (70-110) mg/dL POC Glucose (mg/dL) 167 H 211 H 203 H (70-110) mg/dL Total Bilirubin (0.3-1.2) mg/dL AST (13-35) U/L ALT (8-44) U/L Alkaline Phosphatase (41-126) U/L Total Protein (6.2-8.2) g/dL Albumin (3.8-4.9) g/dL Albumin/Globulin Ratio (1.60-3.17) Ratio 06/03/23 06/03/23 06/03/23 Range/Units 06:05 06:05 07:42 RBC 3.60 L (4.10-5.20) X 10*6/uL Hgb 9.7 L (12.0-15.0) g/dL Hct 29.7 L (37.2-46.3) % MCH 26.9 L (27.0-32.0) pg RDW 17.0 H (11.5-14.5) % MPV 12.5 H (9.5-12.2) FL Sodium 130 L (135-145) mmol/L Chloride 94 L (96-109) mmol/L Anion Gap 14.00 H (4.00-12.00) mmol/L BUN 54.4 H (9.0-27.0) mg/dL Creatinine 1.9 H (0.6-1.5) mg/dL Est GFR (CKD-EPI) 27 L (>=60) BUN/Creatinine Ratio 28.63 H (12.00-20.00) Ratio Glucose 196 H (70-110) mg/dL POC Glucose (mg/dL) 198 H (70-110) mg/dL Total Bilirubin 3.7 H (0.3-1.2) mg/dL AST 244 H (13-35) U/L ALT 253 H (8-44) U/L Alkaline Phosphatase 609 H (41-126) U/L Total Protein 5.5 L (6.2-8.2) g/dL Albumin 2.9 L (3.8-4.9) g/dL Albumin/Globulin Ratio 1.12 L (1.60-3.17) Ratio 06/03/23 06/03/23 Range/Units 09:50 11:50 RBC (4.10-5.20) X 10*6/uL Hgb (12.0-15.0) g/dL Hct (37.2-46.3) % MCH (27.0-32.0) pg RDW (11.5-14.5) % MPV (9.5-12.2) FL Sodium (135-145) mmol/L Chloride (96-109) mmol/L Anion Gap (4.00-12.00) mmol/L BUN (9.0-27.0) mg/dL Creatinine (0.6-1.5) mg/dL Est GFR (CKD-EPI) (>=60) BUN/Creatinine Ratio (12.00-20.00) Ratio Glucose (70-110) mg/dL POC Glucose (mg/dL) 232 H 185 H (70-110) mg/dL Total Bilirubin (0.3-1.2) mg/dL AST (13-35) U/L ALT (8-44) U/L Alkaline Phosphatase (41-126) U/L Total Protein (6.2-8.2) g/dL Albumin (3.8-4.9) g/dL Albumin/Globulin Ratio (1.60-3.17) Ratio Assessment and Plan Plan: Assessment: 1. Acute kidney injury secondary to ATN secondary to hypovolemia and vomiting. Creatinine peaked at 2.0 this admission and is 1.9 today. No hydronephrosis noted on CAT scan. No proteinuria on UA. 2. Chronic kidney disease stage IIIa with baseline creatinine recently 1.2-1.6 although quite variable. Etiology is nephrosclerosis. 3. Acute on chronic cholecystitis with concern for choledocholithiasis. Surgery and GI following. 4. Chronic diastolic CHF. 5. Hyponatremia secondary to acute kidney injury. Hypervolemic. 6. Diabetes mellitus. 7. Anemia of chronic kidney disease. Rule out iron deficiency. Plan: Lasix 20 mg IV once today. Encouraged oral intake. Maintain 1500 cc fluid restriction. Avoid nephrotoxins. Continue to monitor renal function and urine output. Hold Entresto as blood pressure gets too low. ERCP today. Check bladder scan to rule out urinary retention. Discussed with nurse. Check iron studies.
--- NOTE | 2023-06-03 12:21 | P.PN ---
Subjective Progress Note Date: 06/03/23 CHIEF COMPLAINT: Cholecystitis HISTORY OF PRESENT ILLNESS: This is a 77-year-old female who presented with chest pain and upper abdominal pain with nausea and vomiting. Patient does report some right upper quadrant abdominal pain. She did have nausea and vomiting after eating last night's dinner. She is scheduled for ERCP today with GI service. Afebrile. WBC 6.77 Hgb 9.7 sodium is 130 creatinine 1.9 total bili 3.1 up to 3.7 AST 311 244 ALT 315 down to 253 alk phos 490 up to 609 PHYSICAL EXAM: VITAL SIGNS: Reviewed. GENERAL: Well-developed in no acute distress. ABDOMEN: Soft. Nondistended. Tenderness right upper quadrant with palpation. NEUROLOGIC: Alert and oriented. Cranial nerves II through XII grossly intact. ASSESSMENT: 1. Acute on chronic cholecystitis 2. Possible choledocholithiasis with elevated LFTs and total bilirubin 3. History of atrial fibrillation PLAN: -Patient scheduled for ERCP today with GI service -Repeat labs in a.m. -Continue to monitor -Hold Eliquis for possible surgical intervention. Last dose of Eliquis morning of 06/02/2019 -Further recommendations forthcoming per surgeon regarding cholecystectomy -Continue antibiotics Physician Hris Specialist note has been reviewed by physician. Signing provider agrees with the documented findings, assessment, and plan of care. I have personally seen and examined the patient, reviewed the PROCESS TRAINER /PAs history, exam and MDM and agree with the assessment and plan as written. Based on total visit time, I have performed more than 50% of the visit. As above: Patient underwent ERCP earlier today. No evidence of c holedocholithiasis or obstruction seen. Liver enzymes today somewhat higher. Likely patient just recently passed the stone. Recheck labs tomorrow. Will follow. Objective - Vital Signs Vital signs: Vital Signs Temp 98.0 F 06/03/23 07:00 Pulse 74 06/03/23 08:42 Resp 16 06/03/23 02:41 BP 127/67 06/03/23 07:00 Pulse Ox 94 L 06/03/23 08:34 FiO2 Intake & Output 06/02/23 06/03/23 06/03/23 18:59 06:59 18:59 Intake Total 926 310 Output Total 600 950 Balance 326 -640 Intake: Intake, IV Titration 60 Amount Sodium Chloride 0.9% 500 60 ml 500 ml @ 20 mls/hr IV .Q24H [facility] Rx#:[id number] Oral 926 250 Output: Urine 600 650 Emesis 300 Other: Voiding Method Diaper Diaper External Catheter External Catheter # Bowel Movements 0 # Emeses 1 - Labs CBC & Chem 7: 06/03/23 06:05 06/03/23 06:05 Labs: Abnormal Lab Results - Last 24 Hours (Table) 06/02/23 06/02/23 06/02/23 Range/Units 12:28 17:34 20:04 RBC (4.10-5.20) X 10*6/uL Hgb (12.0-15.0) g/dL Hct (37.2-46.3) % MCH (27.0-32.0) pg RDW (11.5-14.5) % MPV (9.5-12.2) FL Sodium (135-145) mmol/L Chloride (96-109) mmol/L Anion Gap (4.00-12.00) mmol/L BUN (9.0-27.0) mg/dL Creatinine (0.6-1.5) mg/dL Est GFR (CKD-EPI) (>=60) BUN/Creatinine Ratio (12.00-20.00) Ratio Glucose (70-110) mg/dL POC Glucose (mg/dL) 167 H 211 H 203 H (70-110) mg/dL Total Bilirubin (0.3-1.2) mg/dL AST (13-35) U/L ALT (8-44) U/L Alkaline Phosphatase (41-126) U/L Total Protein (6.2-8.2) g/dL Albumin (3.8-4.9) g/dL Albumin/Globulin Ratio (1.60-3.17) Ratio 06/03/23 06/03/23 06/03/23 Range/Units 06:05 06:05 07:42 RBC 3.60 L (4.10-5.20) X 10*6/uL Hgb 9.7 L (12.0-15.0) g/dL Hct 29.7 L (37.2-46.3) % MCH 26.9 L (27.0-32.0) pg RDW 17.0 H (11.5-14.5) % MPV 12.5 H (9.5-12.2) FL Sodium 130 L (135-145) mmol/L Chloride 94 L (96-109) mmol/L Anion Gap 14.00 H (4.00-12.00) mmol/L BUN 54.4 H (9.0-27.0) mg/dL Creatinine 1.9 H (0.6-1.5) mg/dL Est GFR (CKD-EPI) 27 L (>=60) BUN/Creatinine Ratio 28.63 H (12.00-20.00) Ratio Glucose 196 H (70-110) mg/dL POC Glucose (mg/dL) 198 H (70-110) mg/dL Total Bilirubin 3.7 H (0.3-1.2) mg/dL AST 244 H (13-35) U/L ALT 253 H (8-44) U/L Alkaline Phosphatase 609 H (41-126) U/L Total Protein 5.5 L (6.2-8.2) g/dL Albumin 2.9 L (3.8-4.9) g/dL Albumin/Globulin Ratio 1.12 L (1.60-3.17) Ratio /03/16 Range/Units 09:50 RBC (4.10-5.20) X 10*6/uL Hgb (12.0-15.0) g/dL Hct (37.2-46.3) % MCH (27.0-32.0) pg RDW (11.5-14.5) % MPV (9.5-12.2) FL Sodium (135-145) mmol/L Chloride (96-109) mmol/L Anion Gap (4.00-12.00) mmol/L BUN (9.0-27.0) mg/dL Creatinine (0.6-1.5) mg/dL Est GFR (CKD-EPI) (>=60) BUN/Creatinine Ratio (12.00-20.00) Ratio Glucose (70-110) mg/dL POC Glucose (mg/dL) 232 H (70-110) mg/dL Total Bilirubin (0.3-1.2) mg/dL AST (13-35) U/L ALT (8-44) U/L Alkaline Phosphatase (41-126) U/L Total Protein (6.2-8.2) g/dL Albumin (3.8-4.9) g/dL Albumin/Globulin Ratio (1.60-3.17) Ratio
[2023-06-03] MEDS: IV FLUID CONTINUATION 1,000 ML IV ONE (12:30)
[2023-06-03] MEDS ORDERED: GLYCOPYRROLATE 0.2 MG/ML 2 ML VIAL ONE (12:33)
[2023-06-03] MEDS ORDERED: KETAMINE HCL IN 0.9 % NACL 50 MG/5 ML SYRINGE ONE (12:33)
[2023-06-03] MEDS ORDERED: PROPOFOL 10 MG/ML 20 ML VIAL IV ONE (12:33)
[2023-06-03] MEDS ORDERED: MIDAZOLAM 2 MG/2 ML VIAL ONE (12:33)
[2023-06-03] MEDS ORDERED: ESMOLOL 100 MG/10 ML VIAL ONE (12:33)
[2023-06-03] MEDS: IOPAMIDOL-300 50ML BTL MISCELLANE ONE ×3 (12:48→13:11)
[2023-06-03] MEDS: NEOMYCIN-BACITRACIN-POLY OINT 14 GM TUBE TOPICAL ONE (13:11)
--- NOTE | 2023-06-03 13:16 | P.PCN ---
Date of Procedure: 06/03/23 Procedure(s) Performed: Brief history: Patient is a 77 year-old pleasant lady scheduled for an ERCP as part of evaluation of severe chest pain, epigastric abdominal pain and elevated serum transaminases/jaundice for the last 2 days' duration.. Ultrasound of abdomen/CT showed gallbladder sludge versus small stones. She also was noted to have dilated CBD. Because of clinical suspicion for choledocholithiasis, she is scheduled for an ERCP today. Procedure performed: ERCP with biliary stent enterotomy and balloon sweep Preoperative diagnoses: Severe epigastric pain/chest pain of 3 days' duration and elevated LFTs and jaundice IV sedation per anesthesia: Procedure: After informed consent was obtained from the patient and after the risks benefits and complications including bleeding perforation and pancreatitis explained in detail the patient was brought into the endoscopy unit. The patient was placed in prone position and IV conscious sedation was administered by anesthesia under continuous monitoring. The Olympus side-viewing duodenoscope was then inserted into the mouth and esophagus intubated without any difficulty. The scope was gradually advanced into the stomach and duodenum. The major papilla was identified without any difficulty. Initial cannulation resulted in opacification of the common bile duct and upon injection of the dye the common bile duct measured 5 mm in diameter with no biliary ductal dilation. There was a faint filling defect noted at the junction of the cystic duct and the common bile duct. At this time the catheter was exchanged over a guidewire with a biliary sphincterotome which was biopsied to the distal common bile duct. A biliary sphincterotomy was performed at 11 o'clock position and was extended to 1 m. Following this a 0.5 mm balloon catheter was passed over the guidewire into the proximal CBD, gently inflated and withdrawn. Small amount of serous sanguinous biliary material was aspirated. No stones were seen exiting the ampulla. I repeated this maneuver 3 more times with 11.5 mm balloon an occlusion cholangio-procedure was performed and the stones were seen exiting the ampulla. At this time the procedure was terminated and the patient tolerated the procedure well. The pancreatic duct was not cannulated during the entire p rocedure Impression: Normal-appearing common bile duct with no filling defects or strictures status post biliary stent enterotomy and balloon sweep as discussed above but no stones seen exiting the ampulla Pancreatic duct intentionally not cannulated Recommendations: The findings of this examination were discussed with the patient as well as a family. At this time will continue to monitor her LFTs closely. We'll start a clear liquid diet. Repeat labs in the morning. Discussed the findings with Dr. Baker.
--- NOTE | 2023-06-03 15:26 | FL ---
EXAMINATION TYPE: FL ERCP Intraoperative/procedural fluoroscopic services were provided. Total fluoro scopy time is 171.5 seconds with a total of 18 submitted images to PACS. Please see the operative/pro cedural note for further details. DAP: 1.4 mGym2
[2023-06-03 16:55] LABS: Glucose,Whole Blood 154 mg/dL (70-110)
[2023-06-03 20:44] LABS: Glucose,Whole Blood 173 mg/dL (70-110)
[2023-06-03 20:46] LABS: % Iron Saturation 8.14 (12.00-45.00)
[2023-06-03 21:20] LABS: Hepatitis A Antibody IgM Nonreactive; Hepatitis B Core IgM Nonreactive; Hepatitis B Surface Antigen Nonreactive; Hepatitis C IgG Antibody Nonreactive
[2023-06-04 05:51] LABS: Glucose,Whole Blood 150 mg/dL (70-110)
--- NOTE | 2023-06-04 08:39 | P.PN ---
Subjective Progress Note Date: 06/04/23 Principal diagnosis: Elevated LFTs status post ERCP The patient is a 77-year-old white female postop day #1 ERCP. No stones were found. She feels appropriate and tolerating clear liquids. No voiding difficulties. She has chronic wound care of the lower extremities Objective - Vital Signs Vital signs: Vital Signs Temp 98.0 F 06/04/23 08:00 Pulse 74 06/04/23 08:00 Resp 16 06/04/23 05:41 BP 115/66 06/04/23 08:00 Pulse Ox 93 L 06/04/23 08:00 FiO2 Intake & Output 06/03/23 06/04/23 06/04/23 18:59 06:59 18:59 Intake Total 430 Output Total 300 Balance 130 Intake: IV 250 Oral 180 Output: Urine 300 Other: Voiding Method Diaper Diaper Incontinent Incontinent External Catheter External Catheter # Voids 1 - Constitutional General appearance: Present: no acute distress, obese - EENT Eyes: Absent: abnormal pupil - Neck Neck: Absent: lymphadenopathy - Respiratory Respiratory: bilateral: diminished - Cardiovascular Rhythm: regular Heart sounds: normal: S1, S2 Abnormal Heart Sounds: Absent: S3 Gallop - Gastrointestinal General gastrointestinal: Present: soft. Absent: tenderness - Integumentary Integumentary: Present: cellulitis - Psychiatric Psychiatric: Present: A&O x's 3 - Labs CBC & Chem 7: 06/03/23 06:05 06/03/23 06:05 Labs: Abnormal Lab Results - Last 24 Hours (Table) 06/03/23 06/03/23 06/03/23 Range/Units 06:05 06:05 06:05 RBC 3.60 L (4.10-5.20) X 10*6/uL Hgb 9.7 L (12.0-15.0) g/dL Hct 29.7 L (37.2-46.3) % MCH 26.9 L (27.0-32.0) pg RDW 17.0 H (11.5-14.5) % MPV 12.5 H (9.5-12.2) FL Sodium 130 L (135-145) mmol/L Chloride 94 L (96-109) mmol/L Anion Gap 14.00 H (4.00-12.00) mmol/L BUN 54.4 H (9.0-27.0) mg/dL Creatinine 1.9 H (0.6-1.5) mg/dL Est GFR (CKD-EPI) 27 L (>=60) BUN/Creatinine Ratio 28.63 H (12.00-20.00) Ratio Glucose 196 H (70-110) mg/dL POC Glucose (mg/dL) (70-110) mg/dL Iron 24 L (50-170) UG/DL % Saturation 8.14 L (12.00-45.00) Total Bilirubin 3.7 H (0.3-1.2) mg/dL AST 244 H (13-35) U/L ALT 253 H (8-44) U/L Alkaline Phosphatase 609 H (41-126) U/L Total Protein 5.5 L (6.2-8.2) g/dL Albumin 2.9 L (3.8-4.9) g/dL Albumin/Globulin Ratio 1.12 L (1.60-3.17) Ratio 06/03/23 06/03/23 06/03/23 Range/Units 09:50 11:50 16:53 RBC (4.10-5.20) X 10*6/uL Hgb (12.0-15.0) g/dL Hct (37.2-46.3) % MCH (27.0-32.0) pg RDW (11.5-14.5) % MPV (9.5-12.2) FL Sodium (135-145) mmol/L Chloride (96-109) mmol/L Anion Gap (4.00-12.00) mmol/L BUN (9.0-27.0) mg/dL Creatinine (0.6-1.5) mg/dL Est GFR (CKD-EPI) (>=60) BUN/Creatinine Ratio (12.00-20.00) Ratio Glucose (70-110) mg/dL POC Glucose (mg/dL) 232 H 185 H 154 H (70-110) mg/dL Iron (50-170) UG/DL % Saturation (12.00-45.00) Total Bilirubin (0.3-1.2) mg/dL AST (13-35) U/L ALT (8-44) U/L Alkaline Phosphatase (41-126) U/L Total Protein (6.2-8.2) g/dL Albumin (3.8-4.9) g/dL Albumin/Globulin Ratio (1.60-3.17) Ratio 06/03/23 06/04/23 Range/Units 20:43 05:49 RBC (4.10-5.20) X 10*6/uL Hgb (12.0-15.0) g/dL Hct (37.2-46.3) % MCH (27.0-32.0) pg RDW (11.5-14.5) % MPV (9.5-12.2) FL Sodium (135-145) mmol/L Chloride (96-109) mmol/L Anion Gap (4.00-12.00) mmol/L BUN (9.0-27.0) mg/dL Creatinine (0.6-1.5) mg/dL Est GFR (CKD-EPI) (>=60) BUN/Creatinine Ratio (12.00-20.00) Ratio Glucose (70-110) mg/dL POC Glucose (mg/dL) 173 H 150 H (70-110) mg/dL Iron (50-170) UG/DL % Saturation (12.00-45.00) Total Bilirubin (0.3-1.2) mg/dL AST (13-35) U/L ALT (8-44) U/L Alkaline Phosphatase (41-126) U/L Total Protein (6.2-8.2) g/dL Albumin (3.8-4.9) g/dL Albumin/Globulin Ratio (1.60-3.17) Ratio Assessment and Plan (1) Cholecystitis, acute with cholelithiasis Current Visit: Yes Status: Acute Code(s): K80.00 - CALCULUS OF GALLBLADDER W ACUTE CHOLECYST W/O OBSTRUCTION SNOMED Code(s): 01132196 (2) Intractable nausea and vomiting Current Visit: Yes Status: Acute Code(s): R11.2 - NAUSEA WITH VOMITING, UNSPECIFIED SNOMED Code(s): 335028872 (3) Atrial fibrillation Current Visit: No Status: Acute Code(s): I48.91 - UNSPECIFIED ATRIAL FIBRILLATION SNOMED Code(s): 45429586 (4) Diabetes Current Visit: No Status: Acute Code(s): E11.9 - TYPE 2 DIABETES MELLITUS WITHOUT COMPLICATIONS SNOMED Code(s): 58784516 (5) Hyperlipidemia Current Visit: No Status: Acute Code(s): E78.5 - HYPERLIPIDEMIA, UNSPECIFIED SNOMED Code(s): 63336028 (6) Hypertension Current Visit: No Status: Acute Code(s): I10 - ESSENTIAL (PRIMARY) HYPERTENSION SNOMED Code(s): 24422509 (7) Leg ulcer, left Current Visit: No Status: Acute Code(s): L97.929 - NON-PRS CHRONIC ULC UNSP PRT OF L LOW LEG W UNSP SEVERITY SNOMED Code(s): 21114004 Plan: Continue current regimen of treatment. The patient is entertaining the possibility of cholecystectomy. Check CBC CMP and magnesium. See orders otherwise
[2023-06-04 08:48] LABS: HGB 9.8 g/dL (12.0-15.0); MCH 26.8 pg (27.0-32.0); MCHC 32.7 g/dL (32.0-37.0); Mean Platelet Volume 11.3 FL (9.5-12.2); NRBC Per 100 WBC 0 X 10*3/uL (0.00-0.01); Platelet Count 215 X 10*3/uL (140-440); RBC 3.66 X 10*6/uL (4.10-5.20); RDW 17.3 % (11.5-14.5); WBC 7.28 X 10*3/uL (4.50-10.00)
[2023-06-04 08:58] LABS: Magnesium 2.1 mg/dL (1.5-2.4)
[2023-06-04 08:59] LABS: ALT 231 U/L (8-44); AST 288 U/L (13-35); Albumin 2.8 g/dL (3.8-4.9); Albumin/Globulin Ratio 1.08 Ratio (1.60-3.17); Alkaline Phosphatase 760 U/L (41-126); BUN/Creat Ratio 29.74 Ratio (12.00-20.00); Blood Urea Nitrogen 56.5 mg/dL (9.0-27.0); Carbon Dioxide 21.1 mmol/L (21.6-31.8); Chloride 97 mmol/L (96-109); Globulin 2.6 g/dL (1.6-3.3); Glucose 155 mg/dL (70-110); Potassium 4.6 mmol/L (3.5-5.5); Sodium 130 mmol/L (135-145); Total Bilirubin 4.1 mg/dL (0.3-1.2); Total Protein 5.4 g/dL (6.2-8.2)
--- NOTE | 2023-06-04 11:45 | P.PN ---
Subjective Progress Note Date: 06/04/23 Principal diagnosis: Transaminitis, hyperbilirubinemia Pleasant 77-year-old female who presented to the emergency department 2 days ago with complaints of chest pain and pressure that was substernal, lower. She has a past medical history including atrial fibrillation, coronary artery disease, CVA/TIA, diabetes mellitus, deep vein thrombosis, hypertension, myocardial infarction and osteoarthritis. She was noted to have elevated LFTs, and underwent CT of the abdomen pelvis with findings of distended gallbladder with layering sludge or tiny calculi. She then underwent ultrasound of the gallbladder which also reported small gallstones versus sludge within the gallbladder, common bile duct not visualized. General surgery was initially consulted, and they have been monitoring patient. Due to continued elevated liver enzymes, gastroenterology was consulted for evaluation of possible choledocholithiasis. Today's labs WBC 7.5 hemoglobin 10.1 hematocrit 31 platelet count 190,000 INR 1.0 sodium 130 potassium 4.4 BUN 50 creatinine 1.8 total bilirubin 3.1 AST 311 ALT 315 alkaline phosphatase 490 06/04/2023 Patient is seen and examined today as a follow-up. She states abdominal pain has significantly improved. She does have some tenderness in the epigastric region. No nausea or vomiting. She is tolerating clear liquid diet. Yesterday she underwent an ERCP with a normal-appearing common bile duct with no filling defects or stricture status post biliary stent enterotomy and balloon sweep with no stone seen exiting the ampulla. Patient has continued elevation in her bilirubin and LFTs. Today's labs total bilirubin 4.1 AST 288 ALT 231 alkaline phosphatase 760. Hepatitis panel nonreactive. Objective - Vital Signs Vital signs: Vital Signs Temp 98.0 F 06/04/23 08:00 Pulse 74 06/04/23 08:00 Resp 16 06/04/23 05:41 BP 115/66 06/04/23 08:00 Pulse Ox 93 L 06/04/23 08:00 FiO2 Intake & Output 06/03/23 06/04/23 06/04/23 18:59 06:59 18:59 Intake Total 430 Output Total 300 Balance 130 Intake: IV 250 Oral 180 Output: Urine 300 Other: Voiding Method Diaper Diaper Incontinent Incontinent External Catheter External Catheter # Voids 1 - Exam General appearance: The patient is alert, oriented, appears in no acute distress. HET: Head is normocephalic and atraumatic. Conjunctiva pink. Sclera mildly icteric. Neck: Supple without lymphadenopathy. Abdomen: Soft, mild epigastric tenderness, nondistended with bowel sounds. No guarding or rigidity. Extremities: Normal skin color and turgor. No pedal edema Skin: No rashes, jaundice. Neurological: No focal deficits. Alert and oriented. - Labs CBC & Chem 7: 06/04/23 06:24 06/04/23 06:24 Labs: Abnormal Lab Results - Last 24 Hours (Table) 06/03/23 06/03/23 06/03/23 Range/Units 06:05 06:05 06:05 RBC 3.60 L (4.10-5.20) X 10*6/uL Hgb 9.7 L (12.0-15.0) g/dL Hct 29.7 L (37.2-46.3) % MCH 26.9 L (27.0-32.0) pg RDW 17.0 H (11.5-14.5) % MPV 12.5 H (9.5-12.2) FL Sodium 130 L (135-145) mmol/L Chloride 94 L (96-109) mmol/L Anion Gap 14.00 H (4.00-12.00) mmol/L BUN 54.4 H (9.0-27.0) mg/dL Creatinine 1.9 H (0.6-1.5) mg/dL Est GFR (CKD-EPI) 27 L (>=60) BUN/Creatinine Ratio 28.63 H (12.00-20.00) Ratio Glucose 196 H (70-110) mg/dL POC Glucose (mg/dL) (70-110) mg/dL Iron 24 L (50-170) UG/DL % Saturation 8.14 L (12.00-45.00) Total Bilirubin 3.7 H (0.3-1.2) mg/dL AST 244 H (13-35) U/L ALT 253 H (8-44) U/L Alkaline Phosphatase 609 H (41-126) U/L Total Protein 5.5 L (6.2-8.2) g/dL Albumin 2.9 L (3.8-4.9) g/dL Albumin/Globulin Ratio 1.12 L (1.60-3.17) Ratio 06/03/23 06/03/23 06/03/23 Range/Units 09:50 11:50 16:53 RBC (4.10-5.20) X 10*6/uL Hgb (12.0-15.0) g/dL Hct (37.2-46.3) % MCH (27.0-32.0) pg RDW (11.5-14.5) % MPV (9.5-12.2) FL Sodium (135-145) mmol/L Chloride (96-109) mmol/L Anion Gap (4.00-12.00) mmol/L BUN (9.0-27.0) mg/dL Creatinine (0.6-1.5) mg/dL Est GFR (CKD-EPI) (>=60) BUN/Creatinine Ratio (12.00-20.00) Ratio Glucose (70-110) mg/dL POC Glucose (mg/dL) 232 H 185 H 154 H (70-110) mg/dL Iron (50-170) UG/DL % Saturation (12.00-45.00) Total Bilirubin (0.3-1.2) mg/dL AST (13-35) U/L ALT (8-44) U/L Alkaline Phosphatase (41-126) U/L Total Protein (6.2-8.2) g/dL Albumin (3.8-4.9) g/dL Albumin/Globulin Ratio (1.60-3.17) Ratio 06/03/23 06/04/23 Range/Units 20:43 05:49 RBC (4.10-5.20) X 10*6/uL Hgb (12.0-15.0) g/dL Hct (37.2-46.3) % MCH (27.0-32.0) pg RDW (11.5-14.5) % MPV (9.5-12.2) FL Sodium (135-145) mmol/L Chloride (96-109) mmol/L Anion Gap (4.00-12.00) mmol/L BUN (9.0-27.0) mg/dL Creatinine (0.6-1.5) mg/dL Est GFR (CKD-EPI) (>=60) BUN/Creatinine Ratio (12.00-20.00) Ratio Glucose (70-110) mg/dL POC Glucose (mg/dL) 173 H 150 H (70-110) mg/dL Iron (50-170) UG/DL % Saturation (12.00-45.00) Total Bilirubin (0.3-1.2) mg/dL AST (13-35) U/L ALT (8-44) U/L Alkaline Phosphatase (41-126) U/L Total Protein (6.2-8.2) g/dL Albumin (3.8-4.9) g/dL Albumin/Globulin Ratio (1.60-3.17) Ratio Assessment and Plan (1) Transaminitis Narrative/Plan: 77-year-old female presented to the emergency department a couple days ago with complaints of chest pain, epigastric pain. She was noted to have significantly elevated LFTs underwent imaging and noted to have distended gallbladder with gallbladder sludge versus stones. She was initially seen by general surgery, who at this point is delaying surgery. Concerns for possible choledocholithiasis. LFTs are consistent with cholestatic pattern. Underwent ERCP with no findings of filling defects, no stricture and no ductal dilation. Unclear etiology at this time of elevated LFTs, possibility patient had passed a stone however LFTs continue to rise. Will further investigate with MRI of the pancreas. Current Visit: Yes Status: Acute Code(s): R74.01 - ELEVATION OF LEVELS OF LIVER TRANSAMINASE LEVELS SNOMED Code(s): 461473710 (2) Cholecystitis, acute with cholelithiasis Narrative/Plan: General surgery following Current Visit: Yes Status: Acute Code(s): K80.00 - CALCULUS OF GALLBLADDER W ACUTE CHOLECYST W/O OBSTRUCTION SNOMED Code(s): 72367847 (3) Abdominal pain Current Visit: Yes Status: Acute Code(s): R10.9 - UNSPECIFIED ABDOMINAL PAIN SNOMED Code(s): 34303375 (4) Atrial fibrillation Current Visit: No Status: Acute Code(s): I48.91 - UNSPECIFIED ATRIAL FIBRILLATION SNOMED Code(s): 39565403 Plan: 1. Continue symptomatic and supportive care 2. Daily LFTs 3. Patient is status post ERCP without any filling defects, no biliary stricture noted 4. Continue clear liquid diet 5. MRI of pancreas ordered 6. Anticoagulation per recommendations from general surgery 7. Continue IV antibiotics 8. Continue with recommendations from general surgery 9. Avoid hepatotoxic medications. Will discontinue atorvastatin, consider discontinuing amiodarone 10. Further recommendations forthcoming based on clinical course Thank you for this consultation, we will continue to follow. Dr. Adolfo Murphy I agree with the dictator's note, documented as a scribe by Shantell Mandel.
[2023-06-04 12:12] LABS: Glucose,Whole Blood 203 mg/dL (70-110)
--- NOTE | 2023-06-04 12:24 | P.PN ---
Subjective Patient is seen in follow-up for acute kidney injury on chronic kidney disease. Received a dose of IV Lasix yesterday. Creatinine stable at 1.9 today. Underwent ERCP yesterday. Currently on clear liquid diet. Vital signs are stable. General: No acute distress. HEENT: Head exam is unremarkable. LUNGS: No audible rhonchi or wheezes. HEART: Rate and Rhythm are regular. ABDOMEN: Soft, no distention. EXTREMITITES: 1+ edema. Objective - Vital Signs Vital signs: Vital Signs Temp 98.0 F 06/04/23 08:00 Pulse 80 06/04/23 08:00 Resp 16 06/04/23 08:00 BP 115/66 06/04/23 08:00 Pulse Ox 93 L 06/04/23 08:00 FiO2 Intake & Output 06/03/23 06/04/23 06/04/23 18:59 06:59 18:59 Intake Total 430 630 Output Total 300 Balance 130 630 Intake: IV 250 Oral 180 630 Output: Urine 300 Other: Voiding Method Diaper Diaper Diaper Incontinent Incontinent Incontinent External Catheter External Catheter External Catheter # Voids 1 2 - Labs CBC & Chem 7: 06/04/23 06:24 06/04/23 06:24 Labs: Abnormal Lab Results - Last 24 Hours (Table) 06/03/23 06/03/23 06/03/23 Range/Units 06:05 16:53 20:43 RBC (4.10-5.20) X 10*6/uL Hgb (12.0-15.0) g/dL Hct (37.2-46.3) % MCH (27.0-32.0) pg RDW (11.5-14.5) % Sodium (135-145) mmol/L Carbon Dioxide (21.6-31.8) mmol/L BUN (9.0-27.0) mg/dL Creatinine (0.6-1.5) mg/dL Est GFR (CKD-EPI) (>=60) BUN/Creatinine Ratio (12.00-20.00) Ratio Glucose (70-110) mg/dL POC Glucose (mg/dL) 154 H 173 H (70-110) mg/dL Iron 24 L (50-170) UG/DL % Saturation 8.14 L (12.00-45.00) Total Bilirubin (0.3-1.2) mg/dL AST (13-35) U/L ALT (8-44) U/L Alkaline Phosphatase (41-126) U/L Total Protein (6.2-8.2) g/dL Albumin (3.8-4.9) g/dL Albumin/Globulin Ratio (1.60-3.17) Ratio 06/04/23 06/04/23 06/04/23 Range/Units 05:49 06:24 06:24 RBC 3.66 L (4.10-5.20) X 10*6/uL Hgb 9.8 L (12.0-15.0) g/dL Hct 30.0 L (37.2-46.3) % MCH 26.8 L (27.0-32.0) pg RDW 17.3 H (11.5-14.5) % Sodium 130 L (135-145) mmol/L Carbon Dioxide 21.1 L (21.6-31.8) mmol/L BUN 56.5 H (9.0-27.0) mg/dL Creatinine 1.9 H (0.6-1.5) mg/dL Est GFR (CKD-EPI) 27 L (>=60) BUN/Creatinine Ratio 29.74 H (12.00-20.00) Ratio Glucose 155 H (70-110) mg/dL POC Glucose (mg/dL) 150 H (70-110) mg/dL Iron (50-170) UG/DL % Saturation (12.00-45.00) Total Bilirubin 4.1 H (0.3-1.2) mg/dL AST 288 H (13-35) U/L ALT 231 H (8-44) U/L Alkaline Phosphatase 760 H (41-126) U/L Total Protein 5.4 L (6.2-8.2) g/dL Albumin 2.8 L (3.8-4.9) g/dL Albumin/Globulin Ratio 1.08 L (1.60-3.17) Ratio 06/04/23 Range/Units 12:11 RBC (4.10-5.20) X 10*6/uL Hgb (12.0-15.0) g/dL Hct (37.2-46.3) % MCH (27.0-32.0) pg RDW (11.5-14.5) % Sodium (135-145) mmol/L Carbon Dioxide (21.6-31.8) mmol/L BUN (9.0-27.0) mg/dL Creatinine (0.6-1.5) mg/dL Est GFR (CKD-EPI) (>=60) BUN/Creatinine Ratio (12.00-20.00) Ratio Glucose (70-110) mg/dL POC Glucose (mg/dL) 203 H (70-110) mg/dL Iron (50-170) UG/DL % Saturation (12.00-45.00) Total Bilirubin (0.3-1.2) mg/dL AST (13-35) U/L ALT (8-44) U/L Alkaline Phosphatase (41-126) U/L Total Protein (6.2-8.2) g/dL Albumin (3.8-4.9) g/dL Albumin/Globulin Ratio (1.60-3.17) Ratio Assessment and Plan Plan: Assessment: 1. Acute kidney injury secondary to ATN secondary to hypovolemia and vomiting. Creatinine peaked at 2.0 this admission and is stable at 1.9 today. No hydronephrosis noted on CAT scan. No proteinuria on UA. 2. Chronic kidney disease stage IIIa with baseline creatinine recently 1.2-1.6 although quite variable. Etiology is nephrosclerosis. 3. Acute on chronic cholecystitis with concern for choledocholithiasis. Surgery and GI following. ERCP negative. 4. Chronic diastolic CHF. 5. Hyponatremia secondary to acute kidney injury. Hypervolemic. 6. Diabetes mellitus. 7. Anemia of chronic kidney disease. Iron deficiency noted. Plan: Repeat Lasix 20 mg IV once today. Encouraged oral intake. Maintain 1500 cc fluid restriction. Avoid nephrotoxins. Continue to monitor renal function and urine output. Hold Entresto as blood pressure gets too low. Add IV iron.
--- NOTE | 2023-06-04 12:55 | P.PN ---
Subjective Progress Note Date: 06/04/23 CHIEF COMPLAINT: Cholecystitis HISTORY OF PRESENT ILLNESS: This is a 77-year-old female who presented with chest pain and upper abdominal pain with nausea and vomiting. Patient does report some right upper quadrant abdominal pain. Patient reports her pain is improved and experiencing more of a tightness across the upper abdomen. She has tolerated the clear liquids. Denies any nausea or vomiting. She had ERCP completed yesterday with no evidence of stones. Afebrile. WBC 7.28 Hgb 9.8 platelets 215. Patient's bilirubin did go up from 3.7-4.1. LFTs remain elevated. PHYSICAL EXAM: VITAL SIGNS: Reviewed. GENERAL: Well-developed in no acute distress. ABDOMEN: Soft. Nondistended. Mild discomfort with palpation across the upper abdomen NEUROLOGIC: Alert and oriented. Cranial nerves II through XII grossly intact. ASSESSMENT: 1. Acute on chronic cholecystitis 2. Elevated LFTs and bilirubin. Patient may have passed a stone. 3. History of atrial fibrillation PLAN: -Patient being followed by GI service. They have ordered MRI of the pancreas -Repeat LFTs in a.m. -Continue to monitor -Hold Eliquis for possible surgical intervention. Last dose of Eliquis morning of 06/02/2019 -Continue antibiotics Physician Faro Dealer note has been reviewed by physician. Signing provider agrees with the documented findings, assessment, and plan of care. Objective - Vital Signs Vital signs: Vital Signs Temp 98.0 F 06/04/23 08:00 Pulse 80 06/04/23 08:00 Resp 16 06/04/23 08:00 BP 115/66 06/04/23 08:00 Pulse Ox 93 L 06/04/23 08:00 FiO2 Intake & Output 06/03/23 06/04/23 06/04/23 18:59 06:59 18:59 Intake Total 430 630 Output Total 300 Balance 130 630 Intake: IV 250 Oral 180 630 Output: Urine 300 Other: Voiding Method Diaper Diaper Diaper Incontinent Incontinent Incontinent External Catheter External Catheter External Catheter # Voids 1 2 - Labs CBC & Chem 7: 06/04/23 06:24 06/04/23 06:24 Labs: Abnormal Lab Results - Last 24 Hours (Table) 06/03/23 06/03/23 06/03/23 Range/Units 06:05 16:53 20:43 RBC (4.10-5.20) X 10*6/uL Hgb (12.0-15.0) g/dL Hct (37.2-46.3) % MCH (27.0-32.0) pg RDW (11.5-14.5) % Sodium (135-145) mmol/L Carbon Dioxide (21.6-31.8) mmol/L BUN (9.0-27.0) mg/dL Creatinine (0.6-1.5) mg/dL Est GFR (CKD-EPI) (>=60) BUN/Creatinine Ratio (12.00-20.00) Ratio Glucose (70-110) mg/dL POC Glucose (mg/dL) 154 H 173 H (70-110) mg/dL Iron 24 L (50-170) UG/DL % Saturation 8.14 L (12.00-45.00) Total Bilirubin (0.3-1.2) mg/dL AST (13-35) U/L ALT (8-44) U/L Alkaline Phosphatase (41-126) U/L Total Protein (6.2-8.2) g/dL Albumin (3.8-4.9) g/dL Albumin/Globulin Ratio (1.60-3.17) Ratio 06/04/23 06/04/23 06/04/23 Range/Units 05:49 06:24 06:24 RBC 3.66 L (4.10-5.20) X 10*6/uL Hgb 9.8 L (12.0-15.0) g/dL Hct 30.0 L (37.2-46.3) % MCH 26.8 L (27.0-32.0) pg RDW 17.3 H (11.5-14.5) % Sodium 130 L (135-145) mmol/L Carbon Dioxide 21.1 L (21.6-31.8) mmol/L BUN 56.5 H (9.0-27.0) mg/dL Creatinine 1.9 H (0.6-1.5) mg/dL Est GFR (CKD-EPI) 27 L (>=60) BUN/Creatinine Ratio 29.74 H (12.00-20.00) Ratio Glucose 155 H (70-110) mg/dL POC Glucose (mg/dL) 150 H (70-110) mg/dL Iron (50-170) UG/DL % Saturation (12.00-45.00) Total Bilirubin 4.1 H (0.3-1.2) mg/dL AST 288 H (13-35) U/L ALT 231 H (8-44) U/L Alkaline Phosphatase 760 H (41-126) U/L Total Protein 5.4 L (6.2-8.2) g/dL Albumin 2.8 L (3.8-4.9) g/dL Albumin/Globulin Ratio 1.08 L (1.60-3.17) Ratio 06/04/23 Range/Units 12:11 RBC (4.10-5.20) X 10*6/uL Hgb (12.0-15.0) g/dL Hct (37.2-46.3) % MCH (27.0-32.0) pg RDW (11.5-14.5) % Sodium (135-145) mmol/L Carbon Dioxide (21.6-31.8) mmol/L BUN (9.0-27.0) mg/dL Creatinine (0.6-1.5) mg/dL Est GFR (CKD-EPI) (>=60) BUN/Creatinine Ratio (12.00-20.00) Ratio Glucose (70-110) mg/dL POC Glucose (mg/dL) 203 H (70-110) mg/dL Iron (50-170) UG/DL % Saturation (12.00-45.00) Total Bilirubin (0.3-1.2) mg/dL AST (13-35) U/L ALT (8-44) U/L Alkaline Phosphatase (41-126) U/L Total Protein (6.2-8.2) g/dL Albumin (3.8-4.9) g/dL Albumin/Globulin Ratio (1.60-3.17) Ratio
[2023-06-04] MEDS ORDERED: LORazepam 2 MG/ML INJ IV PRN (13:12)
[2023-06-04] MEDS: SODIUM FERRIC GLUCONAT-SUCROSE 125 MG in SODIUM CHLORIDE 0.9% 100 ML IVPB SCH (13:48)
[2023-06-04] MEDS: NYSTATIN 100,000 UNIT/ML SUSP 500,000 UNIT/5 ML CUP PO SCH (13:48)
[2023-06-04] MEDS: FUROSEMIDE 10 MG/ML 2 ML VIAL IV ONE (16:05)
[2023-06-04 17:29] LABS: Glucose,Whole Blood 185 mg/dL (70-110)
[2023-06-04 21:04] LABS: Glucose,Whole Blood 215 mg/dL (70-110)
[2023-06-05 05:59] LABS: Glucose,Whole Blood 176 mg/dL (70-110)
[2023-06-05 07:50] LABS: ALT 242 U/L (4-34); AST 416 U/L (14-36); African American GFR (CKD) 32 (>60 ml/min/1.73 sqM); Albumin 2.5 g/dL (3.5-5.0); Albumin/Globulin Ratio 0.9; Anion Gap 9 mmol/L; Blood Urea Nitrogen 59 mg/dL (7-17); Calcium 8.5 mg/dL (8.4-10.2); Carbon Dioxide 20 mmol/L (22-30); Chloride 101 mmol/L (98-107); Globulin 2.8 g/dL; Glucose 155 mg/dL (74-99); Non-African American GFR(CKD) 28 (>60 ml/min/1.73 sqM); Potassium 4.3 mmol/L (3.5-5.1); Sodium 130 mmol/L (137-145); Total Bilirubin 4.3 mg/dL (0.2-1.3); Total Protein 5.3 g/dL (6.3-8.2)
[2023-06-05 08:11] LABS: Alkaline Phosphatase 883 U/L (38-126)
--- NOTE | 2023-06-05 08:59 | P.PN ---
Subjective Progress Note Date: 06/05/23 Principal diagnosis: epigastric pain This is a 77-year-old female who presented to the emergency room with complaints of epigastric and right upper quadrant abdominal discomfort. CT and ultrasound of the abdomen showed gallbladder sludge. Labs on admission showed an increase in AST and ALT. She was seen and evaluated by Dr. Baker and patient was unsure if she wanted to proceed with gallbladder removal or not. Patient's abdominal pain has improved. As of this morning she is leaning towards having the surgery. Patient does report an increase in swelling. She is tolerating diet and vitals are stable. 06/03/2023 Patient was seen and evaluated by Dr. Murphy yesterday who is recommending an ERCP which is planned for today. Patient is n.p.o. and Eliquis is on hold. She is seen this morning laying in bed, reports she is comfortable and denies any abdominal pain currently. 06/04/2022 Plan is for patient to have an MRI of the pancreas, not able to be completed yesterday. Patient seen this morning sitting up in bed with no current complaints. Vital signs are stable. Eliquis remains on hold in case of surgical intervention. Objective - Vital Signs Vital signs: Vital Signs Temp 98.3 F 06/05/23 08:00 Pulse 68 06/05/23 08:44 Resp 16 06/05/23 08:00 BP 104/62 06/05/23 08:00 Pulse Ox 98 06/05/23 08:34 FiO2 21 06/05/23 08:34 Intake & Output 06/04/23 06/05/23 06/05/23 18:59 06:59 18:59 Intake Total 630 500 Output Total 950 625 Balance -320 -125 Intake: Oral 630 500 Output: Urine 950 625 Other: Voiding Method Diaper Diaper Incontinent Incontinent External Catheter External Catheter # Voids 1 1 - Constitutional General appearance: Present: cooperative, no acute distress - EENT Eyes: Present: PERRLA - Neck Neck: Present: normal ROM. Absent: lymphadenopathy, rigidity - Respiratory Respiratory: bilateral: CTA - Cardiovascular Rhythm: irregularly irregular - Gastrointestinal General gastrointestinal: Present: soft. Absent: tenderness - Integumentary Integumentary: Present: normal, normal turgor - Musculoskeletal Musculoskeletal: Present: generalized weakness - Psychiatric Psychiatric: Present: A&O x's 3, appropriate affect, intact judgment & insight - Labs CBC & Chem 7: 06/04/23 06:24 06/05/23 06:18 Labs: Abnormal Lab Results - Last 24 Hours (Table) 06/04/23 06/04/23 06/04/23 Range/Units 06:24 12:11 13:54 Sodium 130 L (135-145) mmol/L Carbon Dioxide 21.1 L (21.6-31.8) mmol/L BUN 56.5 H (9.0-27.0) mg/dL Creatinine 1.9 H (0.6-1.5) mg/dL Est GFR (CKD-EPI) 27 L (>=60) BUN/Creatinine Ratio 29.74 H (12.00-20.00) Ratio Glucose 155 H (70-110) mg/dL POC Glucose (mg/dL) 203 H (70-110) mg/dL Total Bilirubin 4.1 H (0.3-1.2) mg/dL AST 288 H (13-35) U/L ALT 231 H (8-44) U/L Alkaline Phosphatase 760 H (41-126) U/L Total Protein 5.4 L (6.2-8.2) g/dL Albumin 2.8 L (3.8-4.9) g/dL Albumin/Globulin Ratio 1.08 L (1.60-3.17) Ratio CA 19-9 Antigen 266.0 H (0.0-34.9) U/mL 06/04/23 06/04/23 06/05/23 Range/Units 17:28 21:03 05:57 Sodium (135-145) mmol/L Carbon Dioxide (21.6-31.8) mmol/L BUN (9.0-27.0) mg/dL Creatinine (0.6-1.5) mg/dL Est GFR (CKD-EPI) (>=60) BUN/Creatinine Ratio (12.00-20.00) Ratio Glucose (70-110) mg/dL POC Glucose (mg/dL) 185 H 215 H 176 H (70-110) mg/dL Total Bilirubin (0.3-1.2) mg/dL AST (13-35) U/L ALT (8-44) U/L Alkaline Phosphatase (41-126) U/L Total Protein (6.2-8.2) g/dL Albumin (3.8-4.9) g/dL Albumin/Globulin Ratio (1.60-3.17) Ratio CA 19-9 Antigen (0.0-34.9) U/mL 06/05/23 Range/Units 06:18 Sodium 130 L (135-145) mmol/L Carbon Dioxide 20 L (21.6-31.8) mmol/L BUN 59 H (9.0-27.0) mg/dL Creatinine 1.74 H (0.6-1.5) mg/dL Est GFR (CKD-EPI) (>=60) BUN/Creatinine Ratio (12.00-20.00) Ratio Glucose 155 H (70-110) mg/dL POC Glucose (mg/dL) (70-110) mg/dL Total Bilirubin 4.3 H (0.3-1.2) mg/dL AST 416 H (13-35) U/L ALT 242 H (8-44) U/L Alkaline Phosphatase 883 H (41-126) U/L Total Protein 5.3 L (6.2-8.2) g/dL Albumin 2.5 L (3.8-4.9) g/dL Albumin/Globulin Ratio (1.60-3.17) Ratio CA 19-9 Antigen (0.0-34.9) U/mL Assessment and Plan (1) Cholecystitis, acute with cholelithiasis Current Visit: Yes Status: Acute Code(s): K80.00 - CALCULUS OF GALLBLADDER W ACUTE CHOLECYST W/O OBSTRUCTION SNOMED Code(s): 62225680 (2) Transaminitis Current Visit: Yes Status: Acute Code(s): R74.01 - ELEVATION OF LEVELS OF LIVER TRANSAMINASE LEVELS SNOMED Code(s): 232646407 (3) Atrial fibrillation Current Visit: No Status: Acute Code(s): I48.91 - UNSPECIFIED ATRIAL FIB RILLATION SNOMED Code(s): 18617761 (4) CAD (coronary artery disease) Current Visit: No Status: Acute Code(s): I25.10 - ATHSCL HEART DISEASE OF [place] CORONARY ARTERY W/O ANG PCTRS SNOMED Code(s): 49580752 (5) Diabetes Current Visit: No Status: Acute Code(s): E11.9 - TYPE 2 DIABETES MELLITUS WITHOUT COMPLICATIONS SNOMED Code(s): 92675939 (6) Hyperlipidemia Current Visit: No Status: Acute Code(s): E78.5 - HYPERLIPIDEMIA, UNSPECIFIED SNOMED Code(s): 19810560 (7) Hypertension Current Visit: No Status: Acute Code(s): I10 - ESSENTIAL (PRIMARY) HYPERTENSION SNOMED Code(s): 90951916 (8) Venous insufficiency Current Visit: No Status: Acute Code(s): I87.2 - VENOUS INSUFFICIENCY (CH RONIC) (PERIPHERAL) SNOMED Code(s): 88482416 Plan: Check CBC and CMP in the morning Await MRI of the pancreas Patient seen and evaluated by nurse practitioner, physician in agreement with plan
[2023-06-05] MEDS: LORazepam 2 MG/ML INJ IV ONE (09:07)
--- NOTE | 2023-06-05 09:40 | P.CONS ---
History of Present Illness - Reason for Consult Consult date: 06/05/23 wound care - History of Present Illness This is a 77-year-old patient with past medical history significant for atrial fibrillation, coronary artery disease, diabetes, CVA, DVT, hypertension, myocardial infarction. Patient was previously a patient in the wound care center however due to her moving to a different location she is unable to make the drive to continue in the wound care center. At this time she is following with a home care agency that offers a wound care provider to come to her house they are utilizing allograft to the left heel. The dressing was removed and the allograft was still intact therefore it was left in place a border foam was applied. Review Of Systems: Constitutional: No fever, no chills, no night sweats. No weight change. No weakness, fatigue or lethargy. No daytime sleepiness. Integumentary:reports wounds, no lesions. No rash or pruritus. No unusual bruising. No change in hair or nails. Physical exam: General Appearance: Alert, cooperative, no distress, appears stated age. Skin: See HPI all other Skin color, texture, tugor normal, no rashes or lesions. Neurologic: Alert oriented x3 Assessment: 1. Pressure ulcer stage II left heel 2. Diabetic foot ulcer Plan: 1. Bordered foam and rolled gauze applied keep in place for 1 week. Patient to return to her home care wound care provider for further dressing changes. Thank you for the consultation any questions please contact the wound care center DNP note has been reviewed and discussed with Dr. Lujan and the impression and plan of care has been directed as dictated. Past Medical History Past Medical History: Atrial Fibrillation, Coronary Artery Disease (CAD), CVA/ TIA, Diabetes Mellitus, Deep Vein Thrombosis (DVT), Hypertension, Myocardial Infarction ([place]), Osteoarthritis (OA) Additional Past Medical History / Comment(s): hx tia, hx stroke behind left eye., lt eye macular , states hospitalized with Covid April 2019 with life support and stage 3 kidney failure., hx of fall with hip fx and surgery 01/13/22 went to [facility] for [facility]. DVT during ., varicose veins, states painful sore left heel., hx of t.b. as a child with scarring on lungs. 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 clausterphobia. 196 blood transfusion(during child ) pt stated had palpitations after 2nd unit given Past Psychological History: Anxiety Smoking Status: Never smoker Past Alcohol Use History: None Reported Past Drug Use History: None Reported - Past Family History Mother Family Medical History: Cancer Additional Family Medical History / Comment(s): lung cancer Father Family Medical History: Coronary Artery Disease (CAD) Additional Family Medical History / Comment(s): heart disease, kidney disese Medications and Allergies Home Medications Medication Instructions Recorded Confirmed Type Apixaban [Eliquis] 5 mg PO BID 08/13/20 05/30/23 History Sacubitril/Valsartan [Entresto 24 1 tab PO BID 01/12/22 05/30/23 History mg-26 mg Tablet] Omeprazole [PriLOSEC] 20 mg PO DAILY 03/05/22 05/30/23 History Bumetanide [BUMEX] 2 mg PO DAILY 09/09/22 05/30/23 History Ipratropium [place] [Atrovent Hfa] 2 puff INHALATION RT-QID 09/09/22 05/30/23 History ALPRAZolam [Xanax] 0.25 mg PO TID 05/30/23 05/30/23 History Amiodarone [Cordarone] 100 mg PO DAILY 05/30/23 05/30/23 History Ammonium Lactate Lotion 1 applic TOPICAL BID PRN 05/30/23 05/30/23 History [Lac-Hydrin 12% Lotion] Ascorbic Acid [Vitamin C with Samina 1,000 mg PO DAILY 05/30/23 05/30/23 History Hips] Aspirin 81 mg PO DAILY 05/30/23 05/30/23 History Atorvastatin [Lipitor] 20 mg PO DAILY 05/30/23 05/30/23 History Cholecalciferol [Vitamin D3 (25 25 mcg PO DAILY 05/30/23 05/30/23 History Mcg = 1000 Iu)] Escitalopram [Lexapro] 10 mg PO DAILY 05/30/23 05/30/23 History Furosemide [Lasix] 60 mg PO BID 05/30/23 05/30/23 History Insulin Aspart [NovoLOG Flexpen] See Protocol SQ AC-TID 05/30/23 05/30/23 Histor y Insulin Glargine,Hum.rec.anlog 15 units SQ HS 05/30/23 05/30/23 History [Toujeo Max Solostar] Insulin Glargine,Hum.rec.anlog 24 units SQ DAILY 05/30/23 05/30/23 History [Toujeo Max Solostar] Multivit-Min/FA/Lycopen/Lutein 1 tab PO DAILY 05/30/23 05/30/23 History [Centrum Silver Tablet] Nystatin [Nystop] 1 applic TOPICAL TUTH 05/30/23 05/30/23 History Potassium Chloride ER [K-Dur 20] 20 meq PO DAILY 05/30/23 05/30/23 History SILVER sulfADIAZINE Cream 1 applic TOPICAL TUTH 05/30/23 05/30/23 History [Silvadene 1% Cream] Allergies Allergy/AdvReac Type Severity Reaction Status Date / Time shellfish derived [Shellfish] Allergy Severe vomiting Verified 05/30/23 22:07 -very ill adhesive Allergy skin red Verified 05/30/23 22:07 and murguia, tears skin aluminum Allergy skin turns Verified 05/30/23 22:07 black, passes out Antihistamines - Allergy heart Verified 05/30/23 22:07 Ethylenediamine palpitations codeine Allergy migraines Verified 05/30/23 22:07 epinephrine Allergy heart Verified 05/30/23 22:07 palpitations fluticasone [From Flonase] Allergy Unknown Verified 05/30/23 22:07 hydrogen peroxide Allergy murguia and Verified 05/30/23 22:07 causes infection latex Allergy passes out Verified 05/30/23 22:07 lidocaine Allergy gtts in Verified 05/30/23 22:07 eyes and passed out nickel Allergy turns skin Verified 05/30/23 22:07 black and passes out procaine HCl [From Novocain] Allergy passed Verified 05/30/23 22:07 out- due to epinephrine in it. thiopental sodium Allergy needed cpr Verified 05/30/23 22:07 [From Pentothal] resusitation methocarbamol [From Robaxin] AdvReac Hallucinati Verified 05/30/23 22:07 ons surgical felicita Allergy Severe had to be Uncoded 05/30/23 22:07 removed 2 days post-op petroleum products AdvReac passes out Uncoded 05/30/23 22:07 or does not feel well. (diesel, oils) Physical Exam Vitals: Vital Signs Temp Pulse Pulse Resp BP Pulse Ox FiO2 06/05/23 08:44 68 06/05/23 08:34 66 98 21 06/05/23 08:00 98.3 F 67 16 104/62 97 06/05/23 02:49 98.0 F 72 16 101/63 96 06/04/23 20:48 80 06/04/23 20:37 78 06/04/23 19:52 98.8 F 75 16 101/61 95 06/04/23 15:25 75 06/04/23 15:14 74 06/04/23 14:00 98.3 F 75 114/65 94 L Intake and Output 06/04/23 06/05/23 06/05/23 22:59 06:59 14:59 Intake Total 500 Output Total 950 625 Balance -450 -625 Intake: Oral 500 Output: Urine 950 625 Other: Voiding Method Diaper Incontinent External Catheter # Voids 1 1 Results CBC & Chem 7: 06/04/23 06:24 06/05/23 06:18 Labs: Abnormal Lab Results - Last 24 Hours (Table) 06/04/23 06/04/23 06/04/23 Range/Units 12:11 13:54 17:28 Sodium (137-145) mmol/L Carbon Dioxide (22-30) mmol/L BUN (7-17) mg/dL Creatinine (0.52-1.04) mg/dL Glucose (74-99) mg/dL POC Glucose (mg/dL) 203 H 185 H (70-110) mg/dL Total Bilirubin (0.2-1.3) mg/dL AST (14-36) U/L ALT (4-34) U/L Alkaline Phosphatase (38-126) U/L Total Protein (6.3-8.2) g/dL Albumin (3.5-5.0) g/dL CA 19-9 Antigen 266.0 H (0.0-34.9) U/mL 06/04/23 06/05/23 06/05/23 Range/Units 21:03 05:57 06:18 Sodium 130 L (137-145) mmol/L Carbon Dioxide 20 L (22-30) mmol/L BUN 59 H (7-17) mg/dL Creatinine 1.74 H (0.52-1.04) mg/dL Glucose 155 H (74-99) mg/dL POC Glucose (mg/dL) 215 H 176 H (70-110) mg/dL Total Bilirubin 4.3 H (0.2-1.3) mg/dL AST 416 H (14-36) U/L ALT 242 H (4-34) U/L Alkaline Phosphatase 883 H (38-126) U/L Total Protein 5.3 L (6.3-8.2) g/dL Albumin 2.5 L (3.5-5.0) g/dL CA 19-9 Antigen (0.0-34.9) U/mL Assessment and Plan (1) Stage II pressure ulcer of left heel Current Visit: Yes Status: Acute Code(s): L89.622 - PRESSURE ULCER OF LEFT HEEL, STAGE 2 SNOMED Code(s): 71148663306306 (2) Type 2 diabetes mellitus with foot ulcer Current Visit: No Status: Acute Code(s): E11.621 - TYPE 2 DIABETES MELLITUS WITH FOOT ULCER; L97.509 - NON-PRESSURE CHRONIC ULCER OTH PRT UNSP FOOT W UNSP SEVERITY SNOMED Code(s): 659961126
--- NOTE | 2023-06-05 11:54 | P.PN ---
Subjective Progress Note Date: 06/05/23 CHIEF COMPLAINT: Cholecystitis HISTORY OF PRESENT ILLNESS: This is a 77-year-old female who presented with chest pain and upper abdominal pain with nausea and vomiting. Patient continues to complain of the same tightness across the upper abdomen. Denies any nausea or vomiting. She is scheduled for an MRI of the pancreas today. She had ERCP completed yesterday with no evidence of stones. Afebrile. Total bilirubin is up from 4.1-4.3 LFTs trending upwards PHYSICAL EXAM: VITAL SIGNS: Reviewed. GENERAL: no acute distress. HEENT: Sclera icterus present ABDOMEN: Soft. Nondistended. Mild discomfort with palpation across the upper abdomen NEUROLOGIC: Alert and oriented. Cranial nerves II through XII grossly intact. SKIN: jaundiced ASSESSMENT: 1. Acute on chronic cholecystitis 2. Elevated LFTs and bilirubin. Patient may have passed a stone. 3. History of atrial fibrillation PLAN: -Awaiting further GI recommendations -Follow-up on MRI of the pancreas -Continue to monitor LFTs -Continue to monitor -Hold Eliquis for possible surgical intervention. Last dose of Eliquis morning of 06/02/2019 -Continue antibiotics Physician [employer] Records Management Officer note has been reviewed by physician. Signing provider agrees with the documented findings, assessment, and plan of care. I have personally seen and examined the patient, reviewed the FRUIT HARVEST WORKER /PAs history, exam and MDM and agree with the assessment and plan as written. Based on total visit time, I have performed more than 50% of the visit. As above: Patient still appears jaundiced. No significant pain. She is hungry. Will advance diet. Await further GI plans. Objective - Vital Signs Vital signs: Vital Signs Temp 98.3 F 06/05/23 08:00 Pulse 68 06/05/23 08:44 Resp 16 06/05/23 08:00 BP 104/62 06/05/23 08:00 Pulse Ox 98 06/05/23 08:34 FiO2 21 06/05/23 08:34 Intake & Output 06/04/23 06/05/23 06/05/23 18:59 06:59 18:59 Intake Total 630 500 Output Total 950 625 Balance -320 -125 Intake: Oral 630 500 Output: Urine 950 625 Other: Voiding Method Diaper Diaper Diaper Incontinent Incontinent Incontinent External Catheter External Catheter External Catheter # Voids 1 1 - Labs CBC & Chem 7: 06/04/23 06:24 06/05/23 06:18 Labs: Abnormal Lab Results - Last 24 Hours (Table) 06/04/23 06/04/23 06/04/23 Range/Units 12:11 13:54 17:28 Sodium (137-145) mmol/L Carbon Dioxide (22-30) mmol/L BUN (7-17) mg/dL Creatinine (0.52-1.04) mg/dL Glucose (74-99) mg/dL POC Glucose (mg/dL) 203 H 185 H (70-110) mg/dL Total Bilirubin (0.2-1.3) mg/dL AST (14-36) U/L ALT (4-34) U/L Alkaline Phosphatase (38-126) U/L Total Protein (6.3-8.2) g/dL Albumin (3.5-5.0) g/dL CA 19-9 Antigen 266.0 H (0.0-34.9) U/mL 06/04/23 06/05/23 06/05/23 Range/Units 21:03 05:57 06:18 Sodium 130 L (137-145) mmol/L Carbon Dioxide 20 L (22-30) mmol/L BUN 59 H (7-17) mg/dL Creatinine 1.74 H (0.52-1.04) mg/dL Glucose 155 H (74-99) mg/dL POC Glucose (mg/dL) 215 H 176 H (70-110) mg/dL Total Bilirubin 4.3 H (0.2-1.3) mg/dL AST 416 H (14-36) U/L ALT 242 H (4-34) U/L Alkaline Phosphatase 883 H (38-126) U/L Total Protein 5.3 L (6.3-8.2) g/dL Albumin 2.5 L (3.5-5.0) g/dL CA 19-9 Antigen (0.0-34.9) U/mL
[2023-06-05 12:21] LABS: Glucose,Whole Blood 186 mg/dL (70-110)
--- NOTE | 2023-06-05 12:54 | P.PN ---
Subjective Patient is seen in follow-up for acute kidney injury on chronic kidney disease. Renal function fairly stable. Tolerating clear liquid diet. Denies chest pain or shortness of breath. Vital signs are stable. General: No acute distress. HEENT: Head exam is unremarkable. LUNGS: No audible rhonchi or wheezes. HEART: Rate and Rhythm are regular. ABDOMEN: Soft, no distention. EXTREMITITES: 1+ edema. Objective - Vital Signs Vital signs: Vital Signs Temp 98.3 F 06/05/23 08:00 Pulse 64 06/05/23 12:15 Resp 16 06/05/23 08:00 BP 104/62 06/05/23 08:00 Pulse Ox 98 06/05/23 08:34 FiO2 21 06/05/23 08:34 Intake & Output 06/04/23 06/05/23 06/05/23 18:59 06:59 18:59 Intake Total 630 500 240 Output Total 950 625 Balance -320 -125 240 Intake: Oral 630 500 240 Output: Urine 950 625 Other: Voiding Method Diaper Diaper Diaper Incontinent Incontinent Incontinent External Catheter External Catheter External Catheter # Voids 1 1 - Labs CBC & Chem 7: 06/04/23 06:24 06/05/23 06:18 Labs: Abnormal Lab Results - Last 24 Hours (Table) 06/04/23 06/04/23 06/04/23 Range/Units 13:54 17:28 21:03 Sodium (137-145) mmol/L Carbon Dioxide (22-30) mmol/L BUN (7-17) mg/dL Creatinine (0.52-1.04) mg/dL Glucose (74-99) mg/dL POC Glucose (mg/dL) 185 H 215 H (70-110) mg/dL Total Bilirubin (0.2-1.3) mg/dL AST (14-36) U/L ALT (4-34) U/L Alkaline Phosphatase (38-126) U/L Total Protein (6.3-8.2) g/dL Albumin (3.5-5.0) g/dL CA 19-9 Antigen 266.0 H (0.0-34.9) U/mL 06/05/23 06/05/23 06/05/23 Range/Units 05:57 06:18 12:18 Sodium 130 L (137-145) mmol/L Carbon Dioxide 20 L (22-30) mmol/L BUN 59 H (7-17) mg/dL Creatinine 1.74 H (0.52-1.04) mg/dL Glucose 155 H (74-99) mg/dL POC Glucose (mg/dL) 176 H 186 H (70-110) mg/dL Total Bilirubin 4.3 H (0.2-1.3) mg/dL AST 416 H (14-36) U/L ALT 242 H (4-34) U/L Alkaline Phosphatase 883 H (38-126) U/L Total Protein 5.3 L (6.3-8.2) g/dL Albumin 2.5 L (3.5-5.0) g/dL CA 19-9 Antigen (0.0-34.9) U/mL Assessment and Plan Plan: Assessment: 1. Acute kidney injury secondary to ATN secondary to hypovolemia and vomiting. Creatinine peaked at 2.0 this admission and is stable at 1.74 today. No hydronephrosis noted on CAT scan. No proteinuria on UA. 2. Chronic kidney disease stage IIIa with baseline creatinine recently 1.2-1.6 although quite variable. Etiology is nephrosclerosis. 3. Acute on chronic cholecystitis with concern for choledocholithiasis. Surgery and GI following. ERCP negative. MRI pending. 4. Chronic diastolic CHF. 5. Hyponatremia secondary to acute kidney injury. Hypervolemic. 6. Diabetes mellitus. 7. Anemia of chronic kidney disease. Iron deficiency noted. Plan: Add IV Lasix 20 mg once daily. Maintain Encouraged oral intake. Maintain 1500 cc fluid restriction. Avoid nephrotoxins. Continue to monitor renal function and urine output. Hold Entresto as blood pressure gets too low. Maintain IV iron.
[2023-06-05] MEDS: FUROSEMIDE 10 MG/ML 2 ML VIAL IV SCH (14:26)
--- NOTE | 2023-06-05 14:50 | MR ---
EXAMINATION TYPE: MR pancreas wo/w con DATE OF EXAM: 06/05/2023 11:11 AM CLINICAL INDICATION:Female, 77 years old with history of Transaminitis, hyperbilirubinemia, abdominal pain; PHH, Transaminitis, hyperbilirubinemia, abdominal pain COMPARISON: CT scan abdomen from 05/30/2023, ultrasound 05/30/2023, ERCP 06/03/2023.. TECHNIQUE: Multiplanar multi-sequence imaging was performed without contrast. Post contrast imaging was performed. Post IV contrast subtraction images were also submitted for review. IV Contrast: 8.5 cc Gadobutrol FINDINGS: LOWER CHEST: There is a lymph node in the epicardial space on the right side of the heart ABDOMEN Liver: No evidence for hepatic steatosis or cirrhosis. Gallbladder and Bile ducts: No evidence for ductal dilation, or biliary stricture or evidence of chol edocholithiasis. The gallbladder dilated with layering gallstones present. Affecting the nondependent portion. Represent gas from ERCP. Pancreas: No ductal dilation. No evidence for solid mass. Diffuse cystic changes to the pancreas exte nding from uncinate process to tail. The largest Cyst in the pancreatic body/tail measuring up to 15 mm. No abnormal postcontrast enhancement. Spleen: Normal for size. Adrenal glands: Unremarkable. Kidneys: No evidence for obstructive uropathy. No suspicious renal masses. Stomach and Bowel: No evidence for bowel wall thickening or evidence for obstruction. Retroperitoneum/Peritoneum: No evidence of pneumoperitoneum or free fluid. Vasculature: No aortic aneurysm. Musculoskeletal: The osseous structures appear intact. Suspected vertebral body hemangioma versus foc al fat in the L4 vertebral body. Lymph Nodes: No gross evidence for lymphadenopathy. Abdominal wall: Unremarkable. IMPRESSION: 1. Distended gallbladder with multiple gallstones present. Findings compatible with fasting state pr ovided by the ordering provider. No choledocholithiasis or stricture identified. No ductal dilation. 2. Diffuse pancreatic cysts which are simple in appearance. Findings can be seen in cervical pancrea s is and/or other etiologies such as von Hippel-Lindau. 3. No evidence for steatosis or cirrhosis.
--- NOTE | 2023-06-05 15:27 | P.PN ---
Subjective Progress Note Date: 06/05/23 Principal diagnosis: Transaminitis, hyperbilirubinemia Pleasant 77-year-old female who presented to the emergency department 2 days ago with complaints of chest pain and pressure that was substernal, lower. She has a past medical history including atrial fibrillation, coronary artery disease, CVA/TIA, diabetes mellitus, deep vein thrombosis, hypertension, myocardial infarction and osteoarthritis. She was noted to have elevated LFTs, and underwent CT of the abdomen pelvis with findings of distended gallbladder with layering sludge or tiny calculi. She then underwent ultrasound of the gallbladder which also reported small gallstones versus sludge within the gallbladder, common bile duct not visualized. General surgery was initially consulted, and they have been monitoring patient. Due to continued elevated liver enzymes, gastroenterology was consulted for evaluation of possible choledocholithiasis. Today's labs WBC 7.5 hemoglobin 10.1 hematocrit 31 platelet count 190,000 INR 1.0 sodium 130 potassium 4.4 BUN 50 creatinine 1.8 total bilirubin 3.1 AST 311 ALT 315 alkaline phosphatase 490 06/04/2023 Patient is seen and examined today as a follow-up. She states abdominal pain has significantly improved. She does have some tenderness in the epigastric region. No nausea or vomiting. She is tolerating clear liquid diet. Yesterday she underwent an ERCP with a normal-appearing common bile duct with no filling defects or stricture status post biliary stent enterotomy and balloon sweep with no stone seen exiting the ampulla. Patient has continued elevation in her bilirubin and LFTs. Today's labs total bilirubin 4.1 AST 288 ALT 231 alkaline phosphatase 760. Hepatitis panel nonreactive. 06/05/2023 Patient was seen and examined this morning. Her LFTs continue to rise. She remains jaundiced. Afebrile. States that abdominal pain has significantly i mproved from admission however she still is having some epigastric discomfort and fullness. She was awaiting her MRI of the pancreas. She ended up having her MRI of the pancreas with findings of distended gallbladder with multiple gallstones present. Compatible with fasting state. No choledocholithiasis or stricture identified. No ductal dilation. Diffuse pancreatic cysts which are simple in appearance. Findings can be seen in cervical pancreas and/or other etiologies such as von Hippel-Lindau. No evidence for steatosis or cirrhosis. Objective - Vital Signs Vital signs: Vital Signs Temp 98.3 F 06/05/23 08:00 Pulse 64 06/05/23 12:15 Resp 16 06/05/23 08:00 BP 104/62 06/05/23 08:00 Pulse Ox 98 06/05/23 08:34 FiO2 21 06/05/23 08:34 Intake & Output 06/04/23 06/05/23 06/05/23 18:59 06:59 18:59 Intake Total 630 500 240 Output Total 950 625 Balance -320 -125 240 Intake: Oral 630 500 240 Output: Urine 950 625 Other: Voiding Method Diaper Diaper Diaper Incontinent Incontinent Incontinent External Catheter External Catheter External Catheter # Voids 1 1 - Exam General appearance: The patient is alert, oriented, appears in no acute distress. HET: Head is normocephalic and atraumatic. Conjunctiva pink. Sclera icteric. Neck: Supple without lymphadenopathy. Abdomen: Soft, mild epigastric tenderness, nondistended with bowel sounds. No guarding or rigidity. Extremities: Normal skin color and turgor. No pedal edema Skin: No rashes, jaundice. Neurological: No focal deficits. Alert and oriented. - Labs CBC & Chem 7: 06/04/23 06:24 06/05/23 06:18 Labs: Abnormal Lab Results - Last 24 Hours (Table) 06/04/23 06/04/23 06/04/23 Range/Units 13:54 17:28 21:03 Sodium (137-145) mmol/L Carbon Dioxide (22-30) mmol/L BUN (7-17) mg/dL Creatinine (0.52-1.04) mg/dL Glucose (74-99) mg/dL POC Glucose (mg/dL) 185 H 215 H (70-110) mg/dL Total Bilirubin (0.2-1.3) mg/dL AST (14-36) U/L ALT (4-34) U/L Alkaline Phosphatase (38-126) U/L Total Protein (6.3-8.2) g/dL Albumin (3.5-5.0) g/dL CA 19-9 Antigen 266.0 H (0.0-34.9) U/mL 06/05/23 06/05/23 06/05/23 Range/Units 05:57 06:18 12:18 Sodium 130 L (137-145) mmol/L Carbon Dioxide 20 L (22-30) mmol/L BUN 59 H (7-17) mg/dL Creatinine 1.74 H (0.52-1.04) mg/dL Glucose 155 H (74-99) mg/dL POC Glucose (mg/dL) 176 H 186 H (70-110) mg/dL Total Bilirubin 4.3 H (0.2-1.3) mg/dL AST 416 H (14-36) U/L ALT 242 H (4-34) U/L Alkaline Phosphatase 883 H (38-126) U/L Total Protein 5.3 L (6.3-8.2) g/dL Albumin 2.5 L (3.5-5.0) g/dL CA 19-9 Antigen (0.0-34.9) U/mL Assessment and Plan (1) Transaminitis Narrative/Plan: 77-year-old female presented to the emergency department a couple days ago with complaints of chest pain, epigastric pain. She was noted to have significantly elevated LFTs underwent imaging and noted to have distended gallbladder with gallbladder sludge versus stones. She was initially seen by general surgery, who at this point is delaying surgery. Concerns for possible choledocholithiasis. LFTs are consistent with cholestatic pattern. Underwent ERCP with no findings of filling defects, no stricture and no ductal dilation. Unclear etiology at this time of elevated LFTs, possibility patient had passed a stone however LFTs continue to rise. 06/05/2023 MRI of pancreas completed distended gallbladder with multiple gallstones present no evidence of any ductal dilation, no choledocholithiasis or strictures identified. Diffuse pancreatic cysts which are simple in appearance. Findings can be seen in cervical pancreas and or other etiologies such as von Hippel- Lindau. No evidence for steatosis or cirrhosis. Unclear etiology of continued elevation in LFTs. Further evaluation and workup indicated from tertiary center for etiology of elevated LFTs. Gastroenterology will not be here through the weekend and recommend transfer to tertiary center for further evaluation and workup. Current Visit: Yes Status: Acute Code(s): R74.01 - ELEVATION OF LEVELS OF LIVER TRANSAMINASE LEVELS SNOMED Code(s): 843045317 (2) Cholecystitis, acute with cholelithiasis Narrative/Plan: General surgery following Current Visit: Yes Status: Acute Code(s): K80.00 - CALCULUS OF GALLBLADDER W ACUTE CHOLECYST W/O OBSTRUCTION SNOMED Code(s): 82721235 (3) Abdominal pain Current Visit: Yes Status: Acute Code(s): R10.9 - UNSPECIFIED ABDOMINAL PAIN SNOMED Code(s): 08949178 (4) Atrial fibrillation Current Visit: No Status: Acute Code(s): I48.91 - UNSPECIFIED ATRIAL FIBRILLATION SNOMED Code(s): 12427977 Plan: 1. Continue symptomatic and supportive care 2. Daily LFTs 3. Patient is status post ERCP without any filling defects, no biliary stricture noted 4. Continue clear liquid diet 5. MRI of pancreas ordered and reviewed 6. Anticoagulation per recommendations from general surgery 7. Continue IV antibiotics 8. Continue with recommendations from general surgery 9. Avoid hepatotoxic medications. Will discontinue atorvastatin, consider discontinuing amiodarone 10. Recommend transferring to tertiary center for further evaluation and treatment of transaminitis with Unclear etiology. Thank you for this consultation, we will continue to follow. Dr. Adolfo Murphy I agree with the dictator's note, documented as a scribe by Shantell Mandel.
[2023-06-05 17:11] LABS: Glucose,Whole Blood 140 mg/dL (70-110)
[2023-06-05 20:35] LABS: Glucose,Whole Blood 221 mg/dL (70-110)
[2023-06-05] MEDS: NYSTATIN 100,000 UNIT/GM POWD 15 GM TOPICAL SCH (21:03)
[2023-06-06 06:05] LABS: Glucose,Whole Blood 183 mg/dL (70-110)
[2023-06-06 08:34] VITALS: BP 145/55; RESP 15; TEMP 98.4
--- NOTE | 2023-06-06 08:37 | P.DS ---
Providers Date of admission: 06/02/23 09:03 Attending physician: Luis Shirley Consults: 05/31/23 01:07 Consult Physician Routine Consulting Provider: Bandar Baker Consult Reason/Comments: transaminitis, gallbladder sludge, n/v Do you want consulting provider notified?: Yes, Notify in am 06/01/23 19:14 Consult Physician Routine Consulting Provider: Roc Coyne Consult Reason/Comments: CHAITANYA Do you want consulting provider notified?: Yes 06/02/23 12:02 Consult Physician Routine Consulting Provider: Sofiya Murphy Consult Reason/Comments: med mgmt Do you want consulting provider notified?: Yes Primary care physician: Luis Shirley - Discharge Diagnosis(es) (1) Cholecystitis, acute with cholelithiasis Current Visit: Yes Status: Acute (2) Intractable nausea and vomiting Current Visit: Yes Status: Acute (3) Atrial fibrillation Current Visit: No Status: Acute (4) Diabetes Current Visit: No Status: Acute (5) Hyperlipidemia Current Visit: No Status: Acute (6) Hypertension Current Visit: No Status: Acute (7) Leg ulcer, left Current Visit: No Status: Acute Hospital Course: This is a discharge transfer summary 77-year-old white female who has History of diabetes. She came in feeling poorly and initial workup did show cholecystitis with biliary sludge. However she had continued transaminitis. Hepatic function panel slowly crept up. She ended up having ERCP with sphincterotomy which did not show any type of stone obstruction. After this, gastroenterology did end up doing MRI of the pancreas which did not show anything prominent except for cysts. She is tolerating diet and has been having no significant pain upon eating. Due to the significant slow elevation of her bilirubin and liver function tests, we will attempt to transfer to tertiary care center for appropriate evaluation. Will transfer once cleared by general surgery and gastroenterology. Patient Condition at Discharge: Serious Plan - Discharge Summary New Discharge Prescriptions: No Action Ipratropium [place] [Atrovent Hfa] 2 puff INHALATION RT-QID Bumetanide [BUMEX] 2 mg PO DAILY ALPRAZolam [Xanax] 0.25 mg PO TID Amiodarone [Cordarone] 100 mg PO DAILY Ascorbic Acid [Vitamin C with Samina Hips] 1,000 mg PO DAILY Aspirin 81 mg PO DAILY Atorvastatin [Lipitor] 20 mg PO DAILY Escitalopram [Lexapro] 10 mg PO DAILY Furosemide [Lasix] 60 mg PO BID Insulin Aspart [NovoLOG Flexpen] See Protocol SQ AC-TID Insulin Glargine,Hum.rec.anlog [Toujeo Max Solostar] 15 units SQ HS Insulin Glargine,Hum.rec.anlog [Toujeo Max Solostar] 24 units SQ DAILY Potassium Chloride ER [K-Dur 20] 20 meq PO DAILY SILVER sulfADIAZINE Cream [Silvadene 1% Cream] 1 applic TOPICAL TUTH Apixaban [Eliquis] 5 mg PO BID Sacubitril/Valsartan [Entresto 24 mg-26 mg Tablet] 1 tab PO BID Omeprazole [PriLOSEC] 20 mg PO DAILY Ammonium Lactate Lotion [Lac-Hydrin 12% Lotion] 1 applic TOPICAL BID PRN PRN Reason: DRY ITCHY SKIN Cholecalciferol [Vitamin D3 (25 Mcg = 1000 Iu)] 25 mcg PO DAILY Multivit-Min/FA/Lycopen/Lutein [Centrum Silver Tablet] 1 tab PO DAILY Nystatin [Nystop] 1 applic TOPICAL TUTH Discharge Medication List Apixaban [Eliquis] 5 mg PO BID 08/13/20 [History] Sacubitril/Valsartan [Entresto 24 mg-26 mg Tablet] 1 tab PO BID 01/12/22 [History] Omeprazole [PriLOSEC] 20 mg PO DAILY 03/05/22 [History] Bumetanide [BUMEX] 2 mg PO DAILY 09/09/22 [History] Ipratropium [place] [Atrovent Hfa] 2 puff INHALATION RT-QID 09/09/22 [History] ALPRAZolam [Xanax] 0.25 mg PO TID 05/30/23 [History] Amiodarone [Cordarone] 100 mg PO DAILY 05/30/23 [History] Ammonium Lactate Lotion [Lac-Hydrin 12% Lotion] 1 applic TOPICAL BID PRN 05/30/23 [History] Ascorbic Acid [Vitamin C with Samina Hips] 1,000 mg PO DAILY 05/30/23 [History] Aspirin 81 mg PO DAILY 05/30/23 [History] Atorvastatin [Lipitor] 20 mg PO DAILY 05/30/23 [History] Cholecalciferol [Vitamin D3 (25 Mcg = 1000 Iu)] 25 mcg PO DAILY 05/30/23 [History] Escitalopram [Lexapro] 10 mg PO DAILY 05/30/23 [History] Furosemide [Lasix] 60 mg PO BID 05/30/23 [History] Insulin Aspart [NovoLOG Flexpen] See Protocol SQ AC-TID 05/30/23 [History] Insulin Glargine,Hum.rec.anlog [Toujeo Max Solostar] 15 units SQ HS 05/30/23 [History] Insulin Glargine,Hum.rec.anlog [Toujeo Max Solostar] 24 units SQ DAILY 05/30/23 [History] Multivit-Min/FA/Lycopen/Lutein [Centrum Silver Tablet] 1 tab PO DAILY 05/30/23 [History] Nystatin [Nystop] 1 applic TOPICAL TUTH 05/30/23 [History] Potassium Chloride ER [K-Dur 20] 20 meq PO DAILY 05/30/23 [History] SILVER sulfADIAZINE Cream [Silvadene 1% Cream] 1 applic TOPICAL TUTH 05/30/23 [History] Follow up Appointment(s)/Referral(s): Luis Shirley MD [Primary Care Provider] - 1-2 days Activity/Diet/Wound Care/Special Instructions: [facility] - [employer] providing wound care [address] [place] [address] Discharge Disposition: TRANSFER TO SHORT TERM HOSP
[2023-06-06 10:25] LABS: HCT 29.5 % (37.2-46.3); HGB 9.4 g/dL (12.0-15.0); MCH 26.3 pg (27.0-32.0); MCHC 31.9 g/dL (32.0-37.0); MCV 82.6 FL (80.0-97.0); Mean Platelet Volume 12.5 FL (9.5-12.2); NRBC Per 100 WBC 0 X 10*3/uL (0.00-0.01); Platelet Count 230 X 10*3/uL (140-440); RBC 3.57 X 10*6/uL (4.10-5.20); RDW 17.4 % (11.5-14.5); WBC 7.51 X 10*3/uL (4.50-10.00)
--- NOTE | 2023-06-06 10:27 | P.PN ---
Subjective Patient is seen in follow-up for acute kidney injury on chronic kidney disease. Renal function fairly stable as of yesterday. Now on regular diet. Denies chest pain or shortness of breath. On IV Lasix. Vital signs are stable. General: No acute distress. HEENT: Head exam is unremarkable. LUNGS: No audible rhonchi or wheezes. HEART: Rate and Rhythm are regular. ABDOMEN: Soft, no distention. EXTREMITITES: 1+ edema. Objective - Vital Signs Vital signs: Vital Signs Temp 98.4 F 06/06/23 07:25 Pulse 63 06/06/23 07:25 Resp 15 06/06/23 07:25 BP 145/55 06/06/23 07:25 Pulse Ox 95 06/06/23 07:25 FiO2 21 06/05/23 08:34 Intake & Output 06/05/23 06/06/23 06/06/23 18:59 06:59 18:59 Intake Total 480 708 Output Total 1070 550 Balance -590 -550 708 Intake: Oral 480 708 Output: Urine 1070 550 Other: Voiding Method Diaper Diaper Incontinent Incontinent External Catheter External Catheter # Bowel Movements 1 - Labs CBC & Chem 7: 06/04/23 06:24 06/05/23 06:18 Labs: Abnormal Lab Results - Last 24 Hours (Table) 06/05/23 06/05/23 06/05/23 Range/Units 12:18 17:09 20:34 POC Glucose (mg/dL) 186 H 140 H 221 H (70-110) mg/dL 06/06/23 Range/Units 06:05 POC Glucose (mg/dL) 183 H (70-110) mg/dL Assessment and Plan Plan: Assessment: 1. Acute kidney injury secondary to ATN secondary to hypovolemia and vomiting. Creatinine peaked at 2.0 this admission and stable at 1.74 as of yesterday. No hydronephrosis noted on CAT scan. No proteinuria on UA. 2. Chronic kidney disease stage IIIa with baseline creatinine recently 1.2-1.6 although quite variable. Etiology is nephrosclerosis. 3. Acute on chronic cholecystitis with concern for choledocholithiasis. Surgery and GI following. ERCP negative. MRI showed pancreatic cyst send distended gallbladder with multiple gallstones. 4. Chronic diastolic CHF. 5. Hyponatremia secondary to acute kidney injury. Hypervolemic. 6. Diabetes mellitus. 7. Anemia of chronic kidney disease. Iron deficiency noted. Plan: Maintain Lasix. Encouraged oral intake. Maintain 1500 cc fluid restriction. Avoid nephrotoxins. Continue to monitor renal function and urine output. Hold Entresto as blood pressure gets too low. Maintain IV iron. Will be transferred to another facility due to unclear cause of elevated liver enzymes.
--- NOTE | 2023-06-06 10:28 | P.PN ---
Subjective Progress Note Date: 06/06/23 Principal diagnosis: Transaminitis, hyperbilirubinemia Pleasant 77-year-old female who presented to the emergency department 2 days ago with complaints of chest pain and pressure that was substernal, lower. She has a past medical history including atrial fibrillation, coronary artery disease, CVA/TIA, diabetes mellitus, deep vein thrombosis, hypertension, myocardial infarction and osteoarthritis. She was noted to have elevated LFTs, and underwent CT of the abdomen pelvis with findings of distended gallbladder with layering sludge or tiny calculi. She then underwent ultrasound of the gallbladder which also reported small gallstones versus sludge within the gallbladder, common bile duct not visualized. General surgery was initially consulted, and they have been monitoring patient. Due to continued elevated liver enzymes, gastroenterology was consulted for evaluation of possible choledocholithiasis. Today's labs WBC 7.5 hemoglobin 10.1 hematocrit 31 platelet count 190,000 INR 1.0 sodium 130 potassium 4.4 BUN 50 creatinine 1.8 total bilirubin 3.1 AST 311 ALT 315 alkaline phosphatase 490 06/04/2023 Patient is seen and examined today as a follow-up. She states abdominal pain has significantly improved. She does have some tenderness in the epigastric region. No nausea or vomiting. She is tolerating clear liquid diet. Yesterday she underwent an ERCP with a normal-appearing common bile duct with no filling defects or stricture status post biliary stent enterotomy and balloon sweep with no stone seen exiting the ampulla. Patient has continued elevation in her bilirubin and LFTs. Today's labs total bilirubin 4.1 AST 288 ALT 231 alkaline phosphatase 760. Hepatitis panel nonreactive. 06/05/2023 Patient was seen and examined this morning. Her LFTs continue to rise. She remains jaundiced. Afebrile. States that abdominal pain has significantly i mproved from admission however she still is having some epigastric discomfort and fullness. She was awaiting her MRI of the pancreas. She ended up having her MRI of the pancreas with findings of distended gallbladder with multiple gallstones present. Compatible with fasting state. No choledocholithiasis or stricture identified. No ductal dilation. Diffuse pancreatic cysts which are simple in appearance. Findings can be seen in cervical pancreas and/or other etiologies such as von Hippel-Lindau. No evidence for steatosis or cirrhosis. 06/06/2023 Patient seen and examined today as a follow-up. She states she still has some upper abdominal discomfort but no severe pain. No nausea or vomiting. She still remains jaundice. Recommendation yesterday was transferred to tertiary center and patient is concerned and does not really want to go to another hospital. Discussed with patient reasoning behind transfer that we feel she needs further evaluation and workup for her elevated liver enzymes as ERCP showed no ductal dilation, stones or strictures. Pancreas MRI with no findings to explain continued transaminitis. Objective - Vital Signs Vital signs: Vital Signs Temp 97.9 F 06/06/23 02:00 Pulse 71 06/06/23 02:00 Resp 16 06/06/23 02:00 BP 101/56 06/06/23 02:00 Pulse Ox 98 06/06/23 02:00 FiO2 21 06/05/23 08:34 Intake & Output 06/05/23 06/05/23 06/06/23 06:59 18:59 06:59 Intake Total 500 480 Output Total 625 1070 550 Balance -125 -590 -550 Intake: Oral 500 480 Output: Urine 625 1070 550 Other: Voiding Method Diaper Diaper Diaper Incontinent Incontinent Incontinent External Catheter External Catheter External Catheter # Voids 1 # Bowel Movements 1 - Exam General appearance: The patient is alert, oriented, appears in no acute distress. HET: Head is normocephalic and atraumatic. Conjunctiva pink. Sclera icteric. Neck: Supple without lymphadenopathy. Abdomen: Soft, mild epigastric tenderness, nondistended with bowel sounds. No guarding or rigidity. Extremities: Normal skin color and turgor. No pedal edema Skin: No rashes, jaundice. Neurological: No focal deficits. Alert and oriented. - Labs CBC & Chem 7: 06/04/23 06:24 06/05/23 06:18 Labs: Abnormal Lab Results - Last 24 Hours (Table) 06/05/23 06/05/23 06/05/23 Range/Units 06:18 12:18 17:09 Sodium 130 L (137-145) mmol/L Carbon Dioxide 20 L (22-30) mmol/L BUN 59 H (7-17) mg/dL Creatinine 1.74 H (0.52-1.04) mg/dL Glucose 155 H (74-99) mg/dL POC Glucose (mg/dL) 186 H 140 H (70-110) mg/dL Total Bilirubin 4.3 H (0.2-1.3) mg/dL AST 416 H (14-36) U/L ALT 242 H (4-34) U/L Alkaline Phosphatase 883 H (38-126) U/L Total Protein 5.3 L (6.3-8.2) g/dL Albumin 2.5 L (3.5-5.0) g/dL 06/05/23 06/06/23 Range/Units 20:34 06:05 Sodium (137-145) mmol/L Carbon Dioxide (22-30) mmol/L BUN (7-17) mg/dL Creatinine (0.52-1.04) mg/dL Glucose (74-99) mg/dL POC Glucose (mg/dL) 221 H 183 H (70-110) mg/dL Total Bilirubin (0.2-1.3) mg/dL AST (14-36) U/L ALT (4-34) U/L Alkaline Phosphatase (38-126) U/L Total Protein (6.3-8.2) g/dL Albumin (3.5-5.0) g/dL Assessment and Plan (1) Transaminitis Narrative/Plan: 77-year-old female presented to the emergency department a couple days ago with complaints of chest pain, epigastric pain. She was noted to have significantly elevated LFTs underwent imaging and noted to have distended gallbladder with gallbladder sludge versus stones. She was initially seen by general surgery, who at this point is delaying surgery. Concerns for possible choledocholithiasis. LFTs are consistent with cholestatic pattern. Underwent ERCP with no findings of filling defects, no stricture and no ductal dilation. Unclear etiology at this time of elevated LFTs, possibility patient had passed a stone however LFTs continue to rise. 06/05/2023 MRI of pancreas completed distended gallbladder with multiple gallstones present no evidence of any ductal dilation, no choledocholithiasis or strictures identified. Diffuse pancreatic cysts which are simple in appearance. Findings can be seen in cervical pancreas and or other etiologies such as von Hippel- Lindau. No evidence for steatosis or cirrhosis. Unclear etiology of continued elevation in LFTs. Further evaluation and workup indicated from tertiary center for etiology of elevated LFTs. Gastroenterology will not be here through the weekend and recommend transfer to tertiary center for further evaluation and workup. Current Visit: Yes Status: Acute Code(s): R74.01 - ELEVATION OF LEVELS OF LIVER TRANSAMINASE LEVELS SNOMED Code(s): 854238195 (2) Cholecystitis, acute with cholelithiasis Narrative/Plan: General surgery following Current Visit: Yes Status: Acute Code(s): K80.00 - CALCULUS OF GALLBLADDER W ACUTE CHOLECYST W/O OBSTRUCTION SNOMED Code(s): 69442368 (3) Abdominal pain Current Visit: Yes Status: Acute Code(s): R10.9 - UNSPECIFIED ABDOMINAL PAIN SNOMED Code(s): 11771237 (4) Atrial fibrillation Current Visit: No Status: Acute Code(s): I48.91 - UNSPECIFIED ATRIAL FIBRILLATION SNOMED Code(s): 39730004 Plan: 1. Continue symptomatic and supportive care 2. Daily LFTs 3. Patient is status post ERCP without any filling defects, no biliary stricture noted 4. Recommend low-fat diet 5. MRI of pancreas ordered and reviewed 6. Anticoagulation per recommendations from general surgery 7. Continue with recommendations from general surgery 8. Avoid hepatotoxic medications. Will discontinue atorvastatin, consider discontinuing amiodarone 10. Recommend transferring to tertiary center for further evaluation and treatment of transaminitis with Unclear etiology. Thank you for allowing us to participate in the care of the patient, the GI service will sign off, gastroenterology will not be available at the hospital this weekend and through next week. Again gastroenterology is recommending t ransfer to tertiary center, patient has been accepted to [facility] for further gastroenterology workup. Dr. Adolfo Murphy I agree with the dictator's note, documented as a scribe by Shantell Mandel.
[2023-06-06 10:41] LABS: Magnesium 1.9 mg/dL (1.5-2.4)
[2023-06-06 10:48] LABS: ALT 215 U/L (8-44); AST 321 U/L (13-35); Albumin 2.7 g/dL (3.8-4.9); Albumin/Globulin Ratio 1.04 Ratio (1.60-3.17); Alkaline Phosphatase 974 U/L (41-126); BUN/Creat Ratio 27.16 Ratio (12.00-20.00); Blood Urea Nitrogen 51.6 mg/dL (9.0-27.0); Calcium 9.2 mg/dL (8.7-10.3); Carbon Dioxide 22.8 mmol/L (21.6-31.8); Chloride 98 mmol/L (96-109); Globulin 2.6 g/dL (1.6-3.3); Glucose 174 mg/dL (70-110); Potassium 4.4 mmol/L (3.5-5.5); Sodium 131 mmol/L (135-145); Total Bilirubin 3.7 mg/dL (0.3-1.2); Total Protein 5.3 g/dL (6.2-8.2)
[2023-06-06 11:55] VITALS: PULSE 68
[2023-06-06 12:19] LABS: Glucose,Whole Blood 215 mg/dL (70-110)
--- NOTE | 2023-06-06 14:08 | P.PN ---
Subjective Progress Note Date: 06/06/23 CHIEF COMPLAINT: Cholecystitis HISTORY OF PRESENT ILLNESS: This is a 77-year-old female who presented with chest pain and upper abdominal pain with nausea and vomiting. Patient denies any nausea or vomiting. She reports feeling a little better today. She does have some mild tightness across the upper abdomen. MRI pancreas reports distended gallbladder with multiple gallstones present. Findings compatible with fasting state. No choledocholithiasis or stricture identified. No ductal dilatation. Diffuse pancreatic cysts which are simple in appearance. No evidence of steatosis or cirrhosis. Afebrile. Total bilirubin is down from 4.3-3.7 LFTs elevated PHYSICAL EXAM: VITAL SIGNS: Reviewed. GENERAL: no acute distress. HEENT: Sclera icterus present ABDOMEN: Soft. Nondistended. Mild discomfort with palpation across the upper abdomen NEUROLOGIC: Alert and oriented. Cranial nerves II through XII grossly intact. SKIN: jaundiced ASSESSMENT: 1. Acute on chronic cholecystitis 2. Elevated LFTs and bilirubin. Status post ERCP WITH NO CHOLEDOCHOLITHIASIS, NO STRICTURE AND NO DUCTAL DILATION. MRCP with no choledocholithiasis or stricture identified or ductal dilatation. 3. History of atrial fibrillation 4. Diffuse simple pancreatic cysts PLAN: -Agree with GI recommendations regarding transferring patient to tertiary care center for further evaluation and treatment of transaminitis of unclear etiology -Continue antibiotics Physician Optical Laboratory Manager note has been reviewed by physician. Signing provider agrees with the documented findings, assessment, and plan of care. I have personally seen and examined the patient, reviewed the PATENT CLERK /PAs history, exam and MDM and agree with the assessment and plan as written. Based on total visit time, I have performed more than 50% of the visit. As above: Patient doing well today. Pain is improved. Liver enzymes remain elevated. Spoke with GI. They are recommending transfer which I think is reasonable given the difficulty explaining the patient's obstructive jaundice pattern despite normal recent ERCP. Objective - Vital Signs Vital signs: Vital Signs Temp 98.4 F 06/06/23 07:25 Pulse 63 06/06/23 07:25 Resp 15 06/06/23 07:25 BP 145/55 06/06/23 07:25 Pulse Ox 95 06/06/23 07:25 FiO2 21 06/05/23 08:34 Intake & Output 06/05/23 06/06/23 06/06/23 18:59 06:59 18:59 Intake Total 480 708 Output Total 1070 550 Balance -590 -550 708 Intake: Oral 480 708 Output: Urine 1070 550 Other: Voiding Method Diaper Diaper Incontinent Incontinent External Catheter External Catheter # Bowel Movements 1 - Labs CBC & Chem 7: 06/06/23 06:49 06/06/23 06:49 Labs: Abnormal Lab Results - Last 24 Hours (Table) 06/05/23 06/05/23 06/05/23 Range/Units 12:18 17:09 20:34 RBC (4.10-5.20) X 10*6/uL Hgb (12.0-15.0) g/dL Hct (37.2-46.3) % MCH (27.0-32.0) pg MCHC (32.0-37.0) g/dL RDW (11.5-14.5) % MPV (9.5-12.2) FL Sodium (135-145) mmol/L BUN (9.0-27.0) mg/dL Creatinine (0.6-1.5) mg/dL Est GFR (CKD-EPI) (>=60) BUN/Creatinine Ratio (12.00-20.00) Ratio Glucose (70-110) mg/dL POC Glucose (mg/dL) 186 H 140 H 221 H (70-110) mg/dL Total Bilirubin (0.3-1.2) mg/dL AST (13-35) U/L ALT (8-44) U/L Alkaline Phosphatase (41-126) U/L Total Protein (6.2-8.2) g/dL Albumin (3.8-4.9) g/dL Albumin/Globulin Ratio (1.60-3.17) Ratio 06/06/23 06/06/23 06/06/23 Range/Units 06:05 06:49 06:49 RBC 3.57 L (4.10-5.20) X 10*6/uL Hgb 9.4 L (12.0-15.0) g/dL Hct 29.5 L (37.2-46.3) % MCH 26.3 L (27.0-32.0) pg MCHC 31.9 L (32.0-37.0) g/dL RDW 17.4 H (11.5-14.5) % MPV 12.5 H (9.5-12.2) FL Sodium 131 L (135-145) mmol/L BUN 51.6 H (9.0-27.0) mg/dL Creatinine 1.9 H (0.6-1.5) mg/dL Est GFR (CKD-EPI) 27 L (>=60) BUN/Creatinine Ratio 27.16 H (12.00-20.00) Ratio Glucose 174 H (70-110) mg/dL POC Glucose (mg/dL) 183 H (70-110) mg/dL Total Bilirubin 3.7 H (0.3-1.2) mg/dL AST 321 H (13-35) U/L ALT 215 H (8-44) U/L Alkaline Phosphatase 974 H (41-126) U/L Total Protein 5.3 L (6.2-8.2) g/dL Albumin 2.7 L (3.8-4.9) g/dL Albumin/Globulin Ratio 1.04 L (1.60-3.17) Ratio
== END 2023-06-06 15:44 | disposition short-term general hospital (02) | DRG 444 ==
LOC: EC 16:56 → 6NMEDSUR 05-31 01:07 → OBSVTOIN 06-02 09:03
PROVIDERS: ADMIT Family Medicine; ATTEND Family Medicine
PROC: 0FB98ZX Excision of Common Bile Duct, Via Natural or Artificial Opening Endoscopic, Diagnostic (ICD-10-PCS; 2023-06-03)
PROC: 0F798DZ Dilation of Common Bile Duct with Intraluminal Device, Via Natural or Artificial Opening Endoscopic (ICD-10-PCS; principal; 2023-06-03 11:10)
DX: K80.12 Calculus of gallbladder with acute and chronic cholecystitis without obstruction (principal); N17.0 Acute kidney failure with tubular necrosis; K86.2 Cyst of pancreas; I13.0 Hypertensive heart and chronic kidney disease with heart failure and stage 1 through stage 4 chronic kidney disease, or unspecified chronic kidney disease; I42.9 Cardiomyopathy, unspecified; I45.89 Other specified conduction disorders; K82.1 Hydrops of gallbladder; E87.1 Hypo-osmolality and hyponatremia; S73.005A Unspecified dislocation of left hip, initial encounter; L97.929 Non-pressure chronic ulcer of unspecified part of left lower leg with unspecified severity; I50.32 Chronic diastolic (congestive) heart failure; D63.1 Anemia in chronic kidney disease; E11.621 Type 2 diabetes mellitus with foot ulcer; E11.22 Type 2 diabetes mellitus with diabetic chronic kidney disease; N18.31 Chronic kidney disease, stage 3a; I48.0 Paroxysmal atrial fibrillation; L89.622 Pressure ulcer of left heel, stage 2; I83.024 Varicose veins of left lower extremity with ulcer of heel and midfoot; E86.1 Hypovolemia; I25.10 Atherosclerotic heart disease of native coronary artery without angina pectoris; I87.2 Venous insufficiency (chronic) (peripheral); M19.90 Unspecified osteoarthritis, unspecified site; E78.5 Hyperlipidemia, unspecified; E61.1 Iron deficiency; Z79.4 Long term (current) use of insulin; Z79.01 Long term (current) use of anticoagulants; Z79.899 Other long term (current) drug therapy; Z79.82 Long term (current) use of aspirin; Z91.013 Allergy to seafood; Z91.048 Other nonmedicinal substance allergy status; Z88.8 Allergy status to other drugs, medicaments and biological substances; Z88.5 Allergy status to narcotic agent; Z91.040 Latex allergy status; Z86.73 Personal history of transient ischemic attack (TIA), and cerebral infarction without residual deficits; Z86.16 Personal history of COVID-19; I25.2 Old myocardial infarction; Z86.14 Personal history of Methicillin resistant Staphylococcus aureus infection; Z86.718 Personal history of other venous thrombosis and embolism
CPT/HCPCS: 36410; 36415; 43262; 71046; 74176; 74183; 74330; 76705; 76937; 80053; 80074; 81001; 82728; 83036; 83540; 83550; 83690; 83735; 84484; 85025; 85027; 85610; 85730; 86301; 93005; 94640; 94760; 96374; 96375; 99285

== ENCOUNTER 2024-01-09 15:10 | Inpatient (IN) | payer MEDICARE, OTHER ==
--- NOTE | 2024-01-09 15:37 | ED ---
Fever HPI - General Chief Complaint: Fever Stated Complaint: Fever Time Seen by Provider: 01/09/24 15:29 Source: patient, RN notes reviewed, old records reviewed, Caregiver Mode of arrival: EMS Limitations: no limitations - History of Present Illness Initial Comments: This is an 78-year-old female to the ER for altered mental status fever confusion and severe abdominal pain. No cough or congestion no rash no travel history or sick contacts no nausea vomiting diarrhea. Patient states that her belly is significantly swollen than normal MD Complaint: fever, other (Abdominal pain and swelling) -: days(s) Treatments Prior to Arrival: none - Related Data Home Medications Medication Instructions Recorded Confirmed Apixaban [Eliquis] 5 mg PO BID 08/13/20 01/09/24 Sacubitril/Valsartan [Entresto 24 1 tab PO BID 01/12/22 01/09/24 mg-26 mg Tablet] Omeprazole [PriLOSEC] 20 mg PO DAILY 03/05/22 01/09/24 Ipratropium [place] [Atrovent Hfa] 2 puff INHALATION RT-QID 09/09/22 01/09/24 ALPRAZolam [Xanax] 0.25 mg PO TID PRN 05/30/23 01/09/24 Ammonium Lactate Lotion 1 applic TOPICAL BID PRN 05/30/23 01/09/24 [Lac-Hydrin 12% Lotion] Aspirin 81 mg PO DAILY 05/30/23 01/09/24 Atorvastatin [Lipitor] 20 mg PO DAILY 05/30/23 01/09/24 Cholecalciferol [Vitamin D3 (25 25 mcg PO DAILY 05/30/23 01/09/24 Mcg = 1000 Iu)] Escitalopram [Lexapro] 10 mg PO DAILY 05/30/23 01/09/24 Furosemide [Lasix] 80 mg PO DAILY 05/30/23 01/09/24 Insulin Glargine,Hum.rec.anlog 16 - 18 units SQ HS 05/30/23 01/09/24 [Toujeo Max Solostar] Insulin Glargine,Hum.rec.anlog 24 units SQ DAILY 05/30/23 01/09/24 [Toujeo Max Solostar] Multivit-Min/FA/Lycopen/Lutein 1 tab PO DAILY 05/30/23 01/09/24 [Centrum Silver Tablet] Potassium Chloride ER [K-Dur 20] 20 meq PO DAILY 05/30/23 01/09/24 Albuterol Inhaler [Ventolin Hfa 2 puff INHALATION RT-QID PRN 01/09/24 01/09/24 Inhaler] Ascorbic Acid [Vitamin C] 1,000 mg PO DAILY 01/09/24 01/09/24 Vit C/E/Zn/Coppr/Lutein/Zeaxan 1 cap PO BID 01/09/24 01/09/24 [Preservision Areds 2 Softgel] carvediloL [Coreg] 3.125 mg PO BID 01/09/24 01/09/24 Previous Rx's Medication Instructions Recorded Apixaban [Eliquis] 5 mg PO BID tab 01/16/24 Magnesium Oxide [Mag-Ox] 400 mg PO DAILY #30 tab 01/16/24 Metoprolol Tartrate [Lopressor] 12.5 mg PO BID #60 tab 01/16/24 Nystatin 100,000Unit/gm Cream 1 applic TOPICAL BID #60 g 01/16/24 [Mycostatin Cream] Potassium Chloride ER [K-Dur 20] 20 meq PO DAILY tab 01/16/24 Sodium Bicarbonate Tab 650 mg PO BID #60 tab 01/16/24 Torsemide [Demadex] 40 mg PO DAILY #30 tab 01/16/24 cefUROXime axetiL [Ceftin] 500 mg PO BID 7 Days #14 tab 01/16/24 Allergies Allergy/AdvReac Type Severity Reaction Status Date / Time shellfish derived [Shellfish] Allergy Severe vomiting Verified 01/09/24 19:11 -very ill adhesive Allergy skin red Verified 01/09/24 19:11 and murguia, tears skin aluminum Allergy skin turns Verified 01/09/24 19:11 black, passes out Antihistamines - Allergy heart Verified 01/09/24 19:11 Ethylenediamine palpitations codeine Allergy migraines Verified 01/09/24 19:11 epinephrine Allergy heart Verified 01/09/24 19:11 palpitations fluticasone [From Flonase] Allergy Unknown Verified 01/09/24 19:11 hydrogen peroxide Allergy murguia and Verified 01/09/24 19:11 causes infection latex Allergy passes out Verified 01/09/24 19:11 nickel Allergy turns skin Verified 01/09/24 19:11 black and passes out procaine HCl [From Novocain] Allergy passed Verified 01/09/24 19:11 out- due to epinephrine in it. thiopental sodium Allergy needed cpr Verified 01/09/24 19:11 [From Pentothal] resusitation methocarbamol [From Robaxin] AdvReac Hallucinati Verified 01/09/24 19:11 ons zinc oxide AdvReac Rash/Hives Verified 01/10/24 15:11 surgical felicita Allergy Severe had to be Uncoded 01/09/24 19:11 removed 2 days post-op petroleum products AdvReac passes out Uncoded 01/09/24 19:11 or does not feel well. (diesel, oils) Review of Systems ROS Statement: Those systems with pertinent positive or pertinent negative responses have been documented in the HPI. ROS Other: All systems not noted in ROS Statement are negative. Past Medical History Past Medical History: Atrial Fibrillation, Coronary Artery Disease (CAD), CVA/TIA, Diabetes Mellitus, Deep Vein Thrombosis (DVT), Hypertension, Myocardial Infarction (SD), Osteoarthritis (OA) Additional Past Medical History / Comment(s): hx tia, hx stroke behind left eye., lt eye macular , states hospitalized with Covid April 2019 with life support and stage 3 kidney failure., hx of fall with hip fx and surgery 01/13/22 went to [facility] for Rehab. DVT during ., varicose veins, states painful sore left heel., hx of t.b. as a child with scarring on lungs. Last Myocardial Infarction Date:: unknown date History of Any Multi-Drug Resistant Organisms: MRSA, VRE Date of last positivie culture/infection: 09/09/22 MRSA & VRE ([facility]-Scanned) MDRO Source:: Blood Culture Past Surgical History: Adenoidectomy, Hysterectomy, Orthopedic Surgery, Tonsillectomy, Tubal Ligation Additional Past Surgical History / Comment(s): pilonidal cyst twice as child, rt knee arthroscopy, krystyna cataracts, krystyna great toe sx, ORIF Left hip (01/13/22) Past Anesthesia/Blood Transfusion Reactions: Previous Problems w/ Anesthesia, Postoperative Nausea & Vomiting (PONV) Additional Past Anesthesia/Blood Transfusion Reaction / Comment(s): difficulty waking up after sx. clausterphobia. 1961 blood transfusion(during child ) pt stated had palpitations after 2nd unit given Past Psychological History: Anxiety Smoking Status: Never smoker Past Alcohol Use History: None Reported Past Drug Use History: None Reported - Past Family History Mother Family Medical History: Cancer Additional Family Medical History / Comment(s): lung cancer Father Family Medical History: Coronary Artery Disease (CAD) Additional Family Medical History / Comment(s): heart disease, kidney disese General Exam General appearance: alert, in no apparent distress Head exam: Present: atraumatic, normocephalic, normal inspection Eye exam: Present: normal appearance, PERRL, EOMI. Absent: scleral icterus, conjunctival injection, periorbital swelling ENT exam: Present: normal exam, mucous membranes moist Neck exam: Present: normal inspection. Absent: tenderness, meningismus, lymphadenopathy Respiratory exam: Present: normal lung sounds bilaterally. Absent: respiratory distress, wheezes, rales, rhonchi, stridor Cardiovascular Exam: Present: regular rate, normal rhythm, normal heart sounds. Absent: systolic murmur, diastolic murmur, rubs, gallop, clicks GI/Abdominal exam: Present: soft, normal bowel sounds. Absent: distended, tenderness, guarding, rebound, rigid Extremities exam: Present: normal inspection, full ROM, normal capillary refill. Absent: tenderness, pedal edema, joint swelling, calf tenderness Back exam: Present: normal inspection Neurological exam: Present: alert, oriented X3, CN II-XII intact Psychiatric exam: Present: normal affect, normal mood Skin exam: Present: warm, dry, intact, normal color. Absent: rash Course Vital Signs 01/09/24 01/09/24 01/09/24 15:16 16:19 17:00 Temperature 100.9 F H Pulse Rate 95 84 Respiratory 20 20 Rate Blood Pressure 157/85 147/85 O2 Sat by Pulse 98 95 95 Oximetry 01/09/24 01/09/24 01/09/24 18:00 19:00 20:13 Temperature 99.0 F 100.0 F H Pulse Rate 74 Respiratory 18 Rate Blood Pressure 137/76 O2 Sat by Pulse 95 Oximetry 01/09/24 21:00 Temperature 98.1 F Pulse Rate 75 Respiratory 16 Rate Blood Pressure 112/65 O2 Sat by Pulse 95 Oximetry - Reevaluation(s) Reevaluation #1: 01/09/24 19:53 Medical records reviewed Reevaluation #2: 01/09/24 19:53 Patient symptoms unchanged Reevaluation #3: 01/09/24 19:53 Patient informed of results and questions answered Reevaluation #4: Was pt. sent in by a medical professional or institution (GLORIA Galindo, FILTERER, urgent care, hospital, or fpc...) When possible be specific @ -no Did you speak to anyone other than the patient for history (EMS, parent, family, police, friend...)? What history was obtained from this source @ -no Did you review nursing and triage notes (agree or disagree)? Why? @ -agree Are old charts reviewed (outside hosp., previous admission, EMS record, old EKG, old radiological studies, urgent care reports/EKG's, fpc records)? Report findings @ -yes Differential Diagnosis (chest pain, altered mental status, abdominal pain women, abdominal pain men, vaginal bleeding, weakness, fever, dyspnea, syncope, headache, dizziness, GI bleed, back pain, seizure, CVA, palpatations, mental health, musculoskeletal)? @ -prior EKG interpreted by me (3pts min.). @ -yes X-rays interpreted by me (1pt min.). @ -yes negative for acute disease CT interpreted by me (1pt min.). @ -Yes findings of ascites U/S interpreted by me (1pt. min.). @ -yes negative for acute disease What testing was considered but not performed or refused? (CT, X-rays, U/S, labs)? Why? @ -none What meds were considered but not given or refused? Why? @ -none Did you discuss the management of the patient with other professionals (professionals i.e. GLORIA Galindo, FILTERER, lab, RT, psych nurse, social media marketing specialist, cellophaner, teacher, environmental compliance officer, mattress spring encaser)? Give summary @ -no Was smoking cessation discussed for >3mins.? @ -no Was critical care preformed (if so, how long)? @ -no Were there social determinants of health that impacted care today? How? (Home lessness, low income, unemployed, alcoholism, drug addiction, transportation, low edu. Level, literacy, decrease access to med. care, retirement, rehab)? @ -none Was there de-escalation of care discussed even if they declined (Discuss DNR or withdrawal of care, Hospice)? DNR status @ -no What co-morbidities impacted this encounter? (DM, HTN, Smoking, COPD, CAD, Cancer, CVA, ARF, Chemo, Hep., AIDS, mental health diagnosis, sleep apnea, morbid obesity)? @ -none Was patient admitted / discharged? Hospital course, mention meds given and route, prescriptions, significant lab abnormalities, going to OR and other pertinent info. @ - 78 female to ER with fever and abdominal pain, new significant ascites here in the ER will admit to therapeutic and diagnostic paracentesis patient also treated for fever Admitted Undiagnosed new problem with uncertain prognosis? @ -no Drug Therapy requiring intensive monitoring for toxicity (Heparin, Nitro, Insulin, Cardizem)? @ -no Were any procedures done? @ -no Diagnosis/symptom? @ -Ascites fever with abdominal pain Acute, or Chronic, or Acute on Chronic? @ -Acute Uncomplicated (without systemic symptoms) or Complicated (systemic symptoms)? @ -Complicated Side effects of treatment? @ -no Exacerbation, Progression, or Severe Exacerbation? @ -exacerbation Poses a threat to life or bodily function? How? (Chest pain, USA, SD, pneumonia, PE, COPD, DKA, ARF, appy, cholecystitis, CVA, Diverticulitis, Homicidal, Suicidal, threat to staff... and all critical care pts) @ -yes extremes of age Reevaluation #5: Differential Fever: Pneumonia, viral URI, endocarditis, myocarditis, pericarditis, otitis, sinusitis, peritonsillar Abscess, retropharyngeal Abscess, epiglottitis, peritonitis, appendicitis, Inna cystitis, diverticulitis, hepatitis, colitis, UTI, PID, TOA, pyelonephritis, prostatitis, epididymitis, meningitis, enc ephalitis, pulmonary embolism, CVA, thyroid storm, pancreatitis, adrenal crisis, cavernous sinus thrombosis, this is not meant to be an all-inclusive list. - Consultations Consultation #1: Spoke with Dr. Shirley who agrees to admit this patient Medical Decision Making - Medical Decision Making 78 female to ER with fever and abdominal pain, new significant ascites here in the ER will admit to therapeutic and diagnostic paracentesis patient also treated for fever - Lab Data Result diagrams: 01/18/24 05:56 01/18/24 05:56 Lab Results 01/09/24 01/09/24 01/09/24 Range/Units 16:44 16:44 16:44 WBC 10.0 (3.8-10.6) k/uL RBC 4.14 (3.80-5.40) m/uL Hgb 11.3 L (11.4-16.0) gm/dL Hct 35.8 (34.0-46.0) % MCV 86.3 (80.0-100.0) fL MCH 27.3 (25.0-35.0) pg MCHC 31.6 (31.0-37.0) g/dL RDW 15.6 H (11.5-15.5) % Plt Count 213 (150-450) k/uL MPV 8.5 Neutrophils % 94 % Lymphocytes % 3 % Monocytes % 2 % Eosinophils % 1 % Basophils % 0 % Neutrophils # 9.3 H (1.3-7.7) k/uL Lymphocytes # 0.3 L (1.0-4.8) k/uL Monocytes # 0.2 (0-1.0) k/uL Eosinophils # 0.1 (0-0.7) k/uL Basophils # 0.0 (0-0.2) k/uL Hypochromasia Slight Sodium 141 (137-145) mmol/L Potassium 4.4 (3.5-5.1) mmol/L Chloride 107 (98-107) mmol/L Carbon Dioxide 23 (22-30) mmol/L Anion Gap 11 mmol/L BUN 43 H (7-17) mg/dL Creatinine 1.23 H (0.52-1.04) mg/dL Est GFR (CKD-EPI)AfAm 48 (>60 ml/min/1.73 sqM) Est GFR (CKD-EPI)NonAf 42 (>60 ml/min/1.73 sqM) Glucose 248 H (74-99) mg/dL POC Glucose (mg/dL) (70-110) mg/dL POC Glu Carton Forming Machine Adjuster ID Calcium 8.7 (8.4-10.2) mg/dL Phosphorus 3.9 (2.5-4.5) mg/dL Magnesium 1.8 (1.6-2.3) mg/dL Total Bilirubin 0.8 (0.2-1.3) mg/dL AST 46 H (14-36) U/L ALT 20 (4-34) U/L Alkaline Phosphatase 155 H (38-126) U/L Total Protein 6.2 L (6.3-8.2) g/dL Albumin 3.0 L (3.5-5.0) g/dL Lipase 99 (23-300) U/L Influenza Type A (PCR) Not Detected (Not Detectd) Influenza Type B (PCR) Not Detected (Not Detectd) RSV (PCR) Not Detected (Not Detectd) SARS-CoV-2 (PCR) Not Detected (Not Detectd) 01/09/24 Range/Units 19:27 WBC (3.8-10.6) k/uL RBC (3.80-5.40) m/uL Hgb (11.4-16.0) gm/dL Hct (34.0-46.0) % MCV (80.0-100.0) fL MCH (25.0-35.0) pg MCHC (31.0-37.0) g/dL RDW (11.5-15.5) % Plt Count (150-450) k/uL MPV Neutrophils % % Lymphocytes % % Monocytes % % Eosinophils % % Basophils % % Neutrophils # (1.3-7.7) k/uL Lymphocytes # (1.0-4.8) k/uL Monocytes # (0-1.0) k/uL Eosinophils # (0-0.7) k/uL Basophils # (0-0.2) k/uL Hypochromasia Sodium (137-145) mmol/L Potassium (3.5-5.1) mmol/L Chloride (98-107) mmol/L Carbon Dioxide (22-30) mmol/L Anion Gap mmol/L BUN (7-17) mg/dL Creatinine (0.52-1.04) mg/dL Est GFR (CKD-EPI)AfAm (>60 ml/min/1.73 sqM) Est GFR (CKD-EPI)NonAf (>60 ml/min/1.73 sqM) Glucose (74-99) mg/dL POC Glucose (mg/dL) 201 H (70-110) mg/dL POC Glu Carton Forming Machine Adjuster ID Sabrina Danna Calcium (8.4-10.2) mg/dL Phosphorus (2.5-4.5) mg/dL Magnesium (1.6-2.3) mg/dL Total Bilirubin (0.2-1.3) mg/dL AST (14-36) U/L ALT (4-34) U/L Alkaline Phosphatase (38-126) U/L Total Protein (6.3-8.2) g/dL Albumin (3.5-5.0) g/dL Lipase (23-300) U/L Influenza Type A (PCR) (Not Detectd) Influenza Type B (PCR) (Not Detectd) RSV (PCR) (Not Detectd) SARS-CoV-2 (PCR) (Not Detectd) - Radiology Data Radiology results: pending, report reviewed (CT abdomen pelvis positive for ascites chest x-ray is negative for acute disease, ultrasound gallbladder negative for acute disease), image reviewed Disposition Clinical Impression: Fever, Ascites, Abdominal pain Disposition: ADMITTED IP TO THIS HOSP Condition: Fair Is patient prescribed a controlled substance at d/c from ED?: No Time of Disposition: 19:30
--- NOTE | 2024-01-09 16:26 | XR ---
EXAMINATION TYPE: XR chest 1V portable DATE OF EXAM: 01/09/2024 COMPARISON: None INDICATION: Cough, short of breath TECHNIQUE: Single frontal view of the chest is obtained. FINDINGS: The heart size is prominent1. The pulmonary vasculature is normal. There may be some minimal scattered infiltrates within the right lung. Consider atypical pneumonia. IMPRESSION: 1. There may be minimal increased lung markings diffusely through the right lung. Consider atypical p neumonia. [facility], Workstation: [facility], 01/09/2024 4:24 PM
[2024-01-09] MEDS: IBUPROFEN 600 MG TAB PO STA (16:49)
[2024-01-09] MEDS: ACETAMINOPHEN TAB 500 MG TAB PO STA (16:50)
[2024-01-09] MEDS: SODIUM CHLORIDE 0.9% 1,000 ML IV STA (16:51)
[2024-01-09 17:26] LABS: Basophils % (A) 0 %; Eosinophils # (A) 0.1 k/uL (0-0.7); Eosinophils % (A) 1 %; HCT 35.8 % (34.0-46.0); HGB 11.3 gm/dL (11.4-16.0); Hypochromasia Slight; Lymphocytes # (A) 0.3 k/uL (1.0-4.8); Lymphocytes % (A) 3 %; MCH 27.3 pg (25.0-35.0); MCHC 31.6 g/dL (31.0-37.0); MCV 86.3 fL (80.0-100.0); Mean Platelet Volume 8.5; Monocytes # (A) 0.2 k/uL (0-1.0); Monocytes % (A) 2 %; Neutrophils # (A) 9.3 k/uL (1.3-7.7); Neutrophils % (A) 94 %; Platelet Count 213 k/uL (150-450); RBC 4.14 m/uL (3.80-5.40); RDW 15.6 % (11.5-15.5)
[2024-01-09 17:43] LABS: ALT 20 U/L (4-34); AST 46 U/L (14-36); African American GFR (CKD) 48 (>60 ml/min/1.73 sqM); Alkaline Phosphatase 155 U/L (38-126); Anion Gap 11 mmol/L; Blood Urea Nitrogen 43 mg/dL (7-17); Calcium 8.7 mg/dL (8.4-10.2); Carbon Dioxide 23 mmol/L (22-30); Chloride 107 mmol/L (98-107); Glucose 248 mg/dL (74-99); Lipase 99 U/L (23-300); Magnesium 1.8 mg/dL (1.6-2.3); Non-African American GFR(CKD) 42 (>60 ml/min/1.73 sqM); Phosphorus 3.9 mg/dL (2.5-4.5); Potassium 4.4 mmol/L (3.5-5.1); Sodium 141 mmol/L (137-145); Total Bilirubin 0.8 mg/dL (0.2-1.3); Total Protein 6.2 g/dL (6.3-8.2)
[2024-01-09 19:28] LABS: Glucose,Whole Blood 201 mg/dL (70-110)
--- NOTE | 2024-01-09 19:38 | CT ---
EXAMINATION TYPE: CT abdomen pelvis wo con DATE OF EXAM: 01/09/2024 COMPARISON: None INDICATION: abdominal pain DLP: 1980.2 mGycm, Automated exposure control for dose reduction was used. CONTRAST: 0 mL of Isovue 300. Study performed without Oral Contrast TECHNIQUE: Axial images were obtained from above the diaphragm to the pubic rami in the axial plane a t 5 mm thick sections. Reconstructed images are reviewed on the computer in the coronal plane. FINDINGS: Limited CT sections are obtained the lung bases. The lung bases are clear. Coronary artery calcific ation is present. CT ABDOMEN: Ascites is present adjacent to the liver and spleen. Liver: Normal Spleen: Normal Pancreas: Normal Adrenal glands: The adrenal glands are normal. Gallbladder: May be distended. This is difficult to separate from the ascites. Kidneys: No masses are evident. No hydronephrosis is present. No cysts are present. Delayed images were obtained through the kidneys, which remain unremarkable. Aorta: Vascular calcification is within the aorta. Inferior vena cava: Normal. CT PELVIS: Some free fluid is within the pelvis. Lower pelvis is limited in evaluation due to beam harper rdening artifact from left hip prosthesis. This appears to be chronically dislocated from the left ac etabulum. Loops of bowel within the abdomen and pelvis are normal. This study is without oral contrast limi ting bowel evaluation. Appendix: Not identified. No inflammatory changes or dilated tubular structures evident. Urinary bladder: Incompletely distended Genitourinary structures: Uterus and ovaries are not identified. Osseous structures: No suspicious lytic or sclerotic lesions. There is chronic dislocation of the lef t hip from the acetabulum. IMPRESSION: 1. Ascites. 2. 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
[2024-01-09] MEDS ORDERED: ONDANSETRON 4 MG/2 ML VIAL IVP PRN (19:48)
[2024-01-09] MEDS ORDERED: MORPHINE SULFATE 4 MG/ML SYRINGE IV PRN (19:48)
[2024-01-09] MEDS ORDERED: NALOXONE 0.4 MG/ML 1 ML VIAL IV PRN (19:48)
[2024-01-09] MEDS: SODIUM CHLORIDE 0.9% 1,000 ML IV SCH (20:16)
--- NOTE | 2024-01-09 21:18 | US ---
EXAMINATION TYPE: US gallbladder DATE OF EXAM: 01/09/2024 COMPARISON: NONE CLINICAL INDICATION: Female, 78 years old with history of pain; pain exam limited due to body habitus and bowel gas. TECHNIQUE: Grayscale and color Doppler imaging of the right upper quadrant was performed. FINDINGS: EXAM MEASUREMENTS: Liver Length: 14.2 cm Gallbladder Wall: .4 cm CBD: 1.1 cm Right Kidney: 10.6 x 5.1 x 4.4 cm WEARING APPAREL ASSEMBLER NOTES: Pancreas: Obscured by bowel gas Liver: Increased attenuation ascites seen Gallbladder: Low level echoes seen Evidence for sonographic Morelos's sign: no CBD: Dilated Right Kidney: No hydronephrosis or masses seen IMPRESSION: 1. Ascites 2. Mild debris within the gallbladder. [facility], Workstation: [facility], 01/09/2024 9:16 PM
[2024-01-09] MEDS: ACETAMINOPHEN TAB 325 MG TAB PO PRN (22:12)
[2024-01-09] MEDS: AZITHROMYCIN 500 MG in SODIUM CHLORIDE 0.9% 250 ML IVPB STA (22:12)
[2024-01-10] MEDS ORDERED: DEXTROSE 50% SYRINGE 50 ML IVP PRN (00:09)
[2024-01-10] MEDS: APIXABAN 5 MG TAB PO SCH (00:12)
[2024-01-10 01:07] LABS: Glucose,Whole Blood 194 mg/dL (70-110)
[2024-01-10 05:56] LABS: Appearance,Urine Clear (Clear); Bacteria,Urine Rare /hpf; Bilirubin,Urine Negative (Negative); Blood,Urine Negative (Negative); Color,Urine Yellow; Glucose,Urine (UA) Negative (Negative); Ketones,Urine Negative (Negative); Leukocyte Esterase,Urine Trace (Negative); Mucus,Urine Rare /hpf; Nitrite,Urine Negative (Negative); Protein,Urine Negative (Negative); RBC,Urine 20 /hpf (0-5); Specific Gravity,Urine 1.016 (1.001-1.035); Squamous Epithelial Cell,Urine <1 /hpf (0-4); Urobilinogen,Urine <2.0 mg/dL (<2.0); WBC,Urine 3 /hpf (0-5)
[2024-01-10 06:46] LABS: Glucose,Whole Blood 151 mg/dL (70-110)
[2024-01-10] MEDS: INSULIN DETEMIR (LEVEMIR) 100 UNIT/ML SYR SQ SCH ×2 (06:49→21:46)
[2024-01-10] MEDS: PANTOPRAZOLE 40 MG TABLET PO SCH (06:50)
[2024-01-10] MEDS: INSULIN ASPART (NovoLOG) 100 UNIT/ML VIAL SQ SCH (06:50)
[2024-01-10] MEDS: METOPROLOL TARTRATE 12.5 MG TAB PO SCH (09:04)
[2024-01-10] MEDS: CHOLECALCIFEROL 25 MCG (1000 IU) TABLET PO SCH (09:04)
[2024-01-10] MEDS: ESCITALOPRAM 10 MG TAB PO SCH (09:04)
[2024-01-10] MEDS: ASPIRIN 81 MG PO SCH (09:04)
[2024-01-10] MEDS: ATORVASTATIN 20 MG TAB PO SCH (09:04)
[2024-01-10] MEDS: VIT A,C & E-LUTEIN-MINERALS 1 EACH TAB PO SCH (09:04)
[2024-01-10] MEDS: MULTIVITAMINS, THERA 1 EACH TAB PO SCH (09:04)
[2024-01-10] MEDS: ASCORBIC ACID 500 MG TAB PO SCH (09:04)
[2024-01-10] MEDS: NYSTATIN 100,000UNIT/GM CREAM 30 GM TUBE TOPICAL SCH (09:06)
[2024-01-10 10:15] LABS: Basophils # (A) 0.05 X 10*3/uL (0.00-0.10); Basophils % (A) 0.4 %; Eosinophils # (A) 0.03 X 10*3/uL (0.04-0.35); Eosinophils % (A) 0.2 %; HCT 26.8 % (37.2-46.3); HGB 8.2 g/dL (12.0-15.0); Lymphocytes # (A) 1.12 X 10*3/uL (0.90-5.00); Lymphocytes % (A) 8.7 %; MCH 26.7 pg (27.0-32.0); MCHC 30.6 g/dL (32.0-37.0); MCV 87.3 FL (80.0-97.0); Mean Platelet Volume 11.6 FL (9.5-12.2); Monocytes # (A) 0.71 X 10*3/uL (0.20-1.00); Monocytes % (A) 5.5 %; NRBC Per 100 WBC 0 X 10*3/uL (0.00-0.01); Neutrophils # (A) 10.94 X 10*3/uL (1.80-7.70); Neutrophils % (A) 84.9 %; Platelet Count 197 X 10*3/uL (140-440); RBC 3.07 X 10*6/uL (4.10-5.20); RDW 16.1 % (11.5-14.5); WBC 12.89 X 10*3/uL (4.50-10.00)
[2024-01-10 10:36] LABS: ALT 17 U/L (8-44); AST 37 U/L (13-35); Albumin 2.6 g/dL (3.8-4.9); Alkaline Phosphatase 125 U/L (41-126); BUN/Creat Ratio 26.38 Ratio (12.00-20.00); Blood Urea Nitrogen 42.2 mg/dL (9.0-27.0); Calcium 8.4 mg/dL (8.7-10.3); Carbon Dioxide 22.6 mmol/L (21.6-31.8); Chloride 108 mmol/L (96-109); Globulin 2.6 g/dL (1.6-3.3); Glucose 167 mg/dL (70-110); Magnesium 1.8 mg/dL (1.5-2.4); Phosphorus 3.5 mg/dL (2.4-5.1); Potassium 4.2 mmol/L (3.5-5.5); Sodium 142 mmol/L (135-145); Total Bilirubin 0.4 mg/dL (0.3-1.2); Total Protein 5.2 g/dL (6.2-8.2)
[2024-01-10] MEDS: AZITHROMYCIN 500 MG in SODIUM CHLORIDE 0.9% 250 ML IVPB SCH (10:38)
[2024-01-10 10:43] LABS: Hepatitis A Antibody IgM Nonreactive (Nonreactive); Hepatitis B Core IgM Nonreactive (Nonreactive); Hepatitis B Surface Antigen Nonreactive (Nonreactive); Hepatitis C IgG Antibody Nonreactive (Nonreactive)
[2024-01-10 11:36] LABS: Glucose,Whole Blood 151 mg/dL (70-110)
--- NOTE | 2024-01-10 13:07 | P.NPCON ---
History of Present Illness - Reason for Consult chronic renal failure - History of Present Illness Patient is a 78-year-old female with history of chronic kidney disease NKF stage IIIB to 4 with baseline creatinine around 1.6-1.3 mg/dL with multiple episodes of acute kidney injury during hospitalization mostly cardiorenal. Patient is admitted to the hospital with complaints of increased lower extremity swelling and confusion. Patient did state that she had been mildly short of breath as well. Blood pressure has been on the lower side with systolic noted in the 90s. Patient has an indwelling [place] catheter. Currently maintained on IV fluids. Chest x-ray does not show increased pulmonary vascular congestion however there is increased lung markings noted on the right lung suggestive of pneumonia Past Medical History Past Medical History: Atrial Fibrillation, Coronary Artery Disease (CAD), CVA/TIA, Diabetes Mellitus, Deep Vein Thrombosis (DVT), Hypertension, Myocardial Infarction ([place]), Osteoarthritis (OA) Additional Past Medical History / Comment(s): hx tia, hx stroke behind left eye., lt eye macular , states hospitalized with Covid April 2019 with life support and stage 3 kidney failure., hx of fall with hip fx and surgery 01/13/22 went to [facility] for Rehab. DVT during ., varicose veins, states painful sore left heel., hx of t.b. as a child with scarring on lungs. Last Myocardial Infarction Date:: unknown date History of Any Multi-Drug Resistant Organisms: MRSA, VRE Date of last positivie culture/infection: 09/09/22 MRSA & VRE ([facility]-Scanned) MDRO Source:: Blood Culture Past Surgical History: Adenoidectomy, Hysterectomy, Orthopedic Surgery, Tonsillectomy, Tubal Ligation Additional Past Surgical History / Comment(s): pilonidal cyst twice as child, rt knee arthroscopy, krystyna cataracts, krystyna great toe sx, ORIF Left hip (01/13/22) Past Anesthesia/Blood Transfusion Reactions: Previous Problems w/ Anesthesia, Postoperative Nausea & Vomiting (PONV) Additional Past Anesthesia/Blood Transfusion Reaction / Comment(s): difficulty waking up after sx. clausterphobia. 1960 blood transfusion(during child ) pt stated had palpitations after 2nd unit given Past Psychological History: Anxiety Smoking Status: Never smoker Past Alcohol Use History: None Reported Past Drug Use History: None Reported - Past Family History Mother Family Medical History: Cancer Additional Family Medical History / Comment(s): lung cancer Father Family Medical History: Coronary Artery Disease (CAD) Additional Family Medical History / Comment(s): heart disease, kidney disese Medications and Allergies Home Medications Medication Instructions Recorded Confirmed Type Apixaban [Eliquis] 5 mg PO BID 08/13/20 01/09/24 History Sacubitril/Valsartan [Entresto 24 1 tab PO BID 01/12/22 01/09/24 History mg-26 mg Tablet] Omeprazole [PriLOSEC] 20 mg PO DAILY 03/05/22 01/09/24 History Bumetanide [BUMEX] 2 mg PO DAILY 09/09/22 01/09/24 History Ipratropium [place] [Atrovent Hfa] 2 puff INHALATION RT-QID 09/09/22 01/09/24 History ALPRAZolam [Xanax] 0.25 mg PO TID PRN 05/30/23 01/09/24 History Ammonium Lactate Lotion 1 applic TOPICAL BID PRN 05/30/23 01/09/24 History [Lac-Hydrin 12% Lotion] Aspirin 81 mg PO DAILY 05/30/23 01/09/24 History Atorvastatin [Lipitor] 20 mg PO DAILY 05/30/23 01/09/24 History Cholecalciferol [Vitamin D3 (25 25 mcg PO DAILY 05/30/23 01/09/24 History Mcg = 1000 Iu)] Escitalopram [Lexapro] 10 mg PO DAILY 05/30/23 01/09/24 History Furosemide [Lasix] 80 mg PO DAILY 05/30/23 01/09/24 History Insulin Glargine,Hum.rec.anlog 16 - 18 units SQ HS 05/30/23 01/09/24 History [Toujeo Max Solostar] Insulin Glargine,Hum.rec.anlog 24 units SQ DAILY 05/30/23 01/09/24 History [Toujeo Max Solostar] Multivit-Min/FA/Lycopen/Lutein 1 tab PO DAILY 05/30/23 01/09/24 History [Centrum Silver Tablet] Potassium Chloride ER [K-Dur 20] 20 meq PO DAILY 05/30/23 01/09/24 History Albuterol Inhaler [Ventolin Hfa 2 puff INHALATION RT-QID PRN 01/09/24 01/09/24 History Inhaler] Ascorbic Acid [Vitamin C] 1,000 mg PO DAILY 01/09/24 01/09/24 History Vit C/E/Zn/Coppr/Lutein/Zeaxan 1 cap PO BID 01/09/24 01/09/24 History [Preservision Areds 2 Softgel] carvediloL [Coreg] 3.125 mg PO BID 01/09/24 01/09/24 History Allergies Allergy/AdvReac Type Severity Reaction Status Date / Time shellfish derived [Shellfish] Allergy Severe vomiting Verified 01/09/24 19:11 -very ill adhesive Allergy skin red Verified 01/09/24 19:11 and murguia, tears skin aluminum Allergy skin turns Verified 01/09/24 19:11 black, passes out Antihistamines - Allergy heart Verified 01/09/24 19:11 Ethylenediamine palpitations codeine Allergy migraines Verified 01/09/24 19:11 epinephrine Allergy heart Verified 01/09/24 19:11 palpitations fluticasone [From Flonase] Allergy Unknown Verified 01/09/24 19:11 hydrogen peroxide Allergy murguia and Verified 01/09/24 19:11 causes infection latex Allergy passes out Verified 01/09/24 19:11 nickel Allergy turns skin Verified 01/09/24 19:11 black and passes out procaine HCl [From Novocain] Allergy passed Verified 01/09/24 19:11 out- due to epinephrine in it. thiopental sodium Allergy needed cpr Verified 01/09/24 19:11 [From Pentothal] resusitation methocarbamol [From Robaxin] AdvReac Hallucinati Verified 01/09/24 19:11 ons surgical felicita Allergy Severe had to be Uncoded 01/09/24 19:11 removed 2 days post-op petroleum products AdvReac passes out Uncoded 01/09/24 19:11 or does not feel well. (diesel, oils) Physical Exam Vitals: Vital Signs Temp Pulse Pulse Resp BP BP Pulse Ox 01/10/24 07:05 98.6 F 71 20 120/69 97 01/10/24 01:09 100/66 01/10/24 00:41 98.0 F 69 18 90/54 95 01/09/24 22:45 98.7 F 82 17 99/61 95 01/09/24 21:00 98.1 F 75 16 112/65 95 01/09/24 20:13 100.0 F H 01/09/24 19:00 74 18 137/76 95 01/09/24 18:00 99.0 F 01/09/24 17:00 84 20 147/85 95 01/09/24 16:19 95 01/09/24 15:16 100.9 F H 95 20 157/85 98 Intake and Output 01/09/24 01/10/24 01/10/24 22:59 06:59 14:59 Intake Total 1250 Output Total 300 Balance 1250 -300 Intake: IV 1250 Invasive Line 2 1250 Output: Urine 300 Straight 300 Other: Voiding Method Indwelling Catheter Weight 83.007 kg patient is awake, comfortable, no acute distress. Examination of the heart S1 and S2 Examination of the lungs decreased breath sounds at the bases Abdomen is soft nontender Examination of lower extremities shows edema 1+ bilaterally CONFERENCE INTERPRETER exam intact with no motor deficits. Patient is answering questions appropriately. Results - Lab Results Most recent lab results Calcium 8.4 mg/dL (8.7-10.3) L 01/10/24 03:41 Phosphorus 3.5 mg/dL (2.4-5.1) 01/10/24 03:41 Magnesium 1.8 mg/dL (1.5-2.4) 01/10/24 03:41 01/10/24 03:41 01/10/24 03:41 Assessment and Plan Assessment: 1. Acute kidney injury, ATN secondary to hypotension. Underlying history of CHF. I will decrease IV fluids. Diuretics and Entresto on hold. No obstruction noted on CT of the abdomenhe had UA is unremarkable. 2. right lung pneumonia maintained on antibiotics 3. Mild volume overload 4.anemia rule out iron deficiency 5. CK D NKF stage III with baseline creatinine around 1.6-1.4 mg/dL with multiple episodes of acute kidney injury associated with admissions and CHF exacerbation. Plan: decrease IV fluids Check iron profile Accurate I's and O's Repeat labs in a.m. Continue with antibiotics Continue to hold diuretics for now. Thank you for the consultation. We will continue to follow the patient with you during her hospitalization.
--- NOTE | 2024-01-10 14:05 | P.HPIM ---
History of Present Illness H&P Date: 01/10/24 History of present illness; patient is a 78-year-old lady with past medical history significant for atrial fibrillation, coronary disease, CVA, diabetes mellitus, DVT, hypertension who presented the ER because of abdominal pain. Patient in the past was admitted to our facility in May of this year at which time patient was found to have acute on chronic cholecystitis, underwent ERCP which showed no choledocholithiasis, stricture or ductal dilatation. Patient was later transferred to tertiary care center for transaminitis. Patient was brought to the ER for worsening abdominal pain and confusion. Patient also found to have fevers at home. There is no complaint of chest pain or shortness of breath. Denies any nausea or vomiting. Patient is complaining abdominal distention. Because of the symptoms, patient presented the ER Initial lab work done in the ER showed WBC 10, hemoglobin 11.3, platelet count 213, sodium 141, potassium 4.4, BUN 43, creatinine 1.23, glucose 248, AST 46, ALT 20, alk phos 155 ammonia 15, urine not suspicious for infection Influenza A not detected Influenza B not detected RSV not detected COVID-19 not detected Gallbladder ultrasound done showed ascites, mild debris's within the gallbladder Chest x-ray done in the ER showed minimal increased lung markings diffusely throughout the right lung, consider atypical pneumonia CT abdomen done showed ascites, chronic dislocation of left femoral prosthesis Patient admitted to internal medicine service REVIEW OF SYSTEMS: CONSTITUTIONAL: As mentioned above HEENT: No recent visual problems or hearing problems. Denied any sore throat. CARDIOVASCULAR: No chest pain, orthopnea, PND, no palpitations, no syncope. PULMONARY: No shortness of breath, no cough, no hemoptysis. GASTROINTESTINAL: As mentioned above NEUROLOGICAL: No headaches, no weakness, no numbness. HEMATOLOGICAL: Denies any bleeding or petechiae. GENITOURINARY: Denies any burning micturition, frequency, or urgency. MUSCULOSKELETAL/RHEUMATOLOGICAL: Denies any joint pain, swelling, or any muscle pain. ENDOCRINE: Denies any polyuria or polydipsia. The rest of the 14-point review of systems is negative. PHYSICAL EXAMINATION: GENERAL: The patient is alert and oriented x3, not in any acute distress. Well developed, well nourished. HEENT: Pupils are round and equally reacting to light. EOMI. No scleral icterus. No conjunctival pallor. Normocephalic, atraumatic. No pharyngeal erythema. No thyromegaly. CARDIOVASCULAR: S1 and S2 present. No murmurs, rubs, or gallops. PULMONARY: Chest is clear to auscultation, no wheezing or crackles. ABDOMEN: Soft, nontender, nondistended, normoactive bowel sounds. No palpable organomegaly. MUSCULOSKELETAL: No joint swelling or deformity. EXTREMITIES: No cyanosis, clubbing, or pedal edema. NEUROLOGICAL: Gross neurological examination did not reveal any focal deficits. SKIN: No rashes. Assessment and plan Abdominal pain Ascites Fever Atypical pneumonia Chronic diastolic CHF Diabetes mellitus chronic kidney disease stage III anemia of chronic kidney disease Monitor vital signs Monitor CBC Monitor CMP Continue telemetry monitoring Ordered blood cultures Ordered diagnostic and therapeutic paracentesis Start patient on IV Rocephin for possible SBP Start patient on IV antibiotics for atypical pneumonia Consult ID Consult general surgery Labs and medication were reviewed.. Continue same treatment. Continue with symptomatic treatment. Resume home medication. Monitor labs and vitals. DVT and GI prophylaxis. Further recommendations as per clinical course of the sally ent Dictation was produced using [employer] dictation software. please excuse any grammatical, word or spelling errors. Past Medical History Past Medical History: Atrial Fibrillation, Coronary Artery Disease (CAD), CVA/TIA, Diabetes Mellitus, Deep Vein Thrombosis (DVT), Hypertension, Myocardial Infarction ([place]), Osteoarthritis (OA) Additional Past Medical History / Comment(s): hx tia, hx stroke behind left eye., lt eye macular , states hospitalized with Covid April 2019 with life support and stage 3 kidney failure., hx of fall with hip fx and surgery 01/13/22 went to [facility] for Rehab. DVT during ., varicose veins, states painful sore left heel., hx of t.b. as a child with scarring on lungs. Last Myocardial Infarction Date:: unknown date History of Any Multi-Drug Resistant Organisms: MRSA, VRE Date of last positivie culture/infection: 09/09/22 MRSA & VRE ([facility]-Scanned) MDRO Source:: Blood Culture Past Surgical History: Adenoidectomy, Hysterectomy, Orthopedic Surgery, Tonsillectomy, Tubal Ligation Additional Past Surgical History / Comment(s): pilonidal cyst twice as child, rt knee arthroscopy, krystyna cataracts, krystyna great toe sx, ORIF Left hip (01/13/22) Past Anesthesia/Blood Transfusion Reactions: Previous Problems w/ Anesthesia, Postoperative Nausea & Vomiting (PONV) Additional Past Anesthesia/Blood Transfusion Reaction / Comment(s): difficulty waking up after sx. clausterphobia. 1961 blood transfusion(during child ) pt stated had palpitations after 2nd unit given Past Psychological History: Anxiety Smoking Status: Never smoker Past Alcohol Use History: None Reported Past Drug Use History: None Reported - Past Family History Mother Family Medical History: Cancer Additional Family Medical History / Comment(s): lung cancer Father Family Medical History: Coronary Artery Disease (CAD) Additional Family Medical History / Comment(s): heart disease, kidney disese Medications and Allergies Home Medications Medication Instructions Recorded Confirmed Type Apixaban [Eliquis] 5 mg PO BID 08/13/20 01/09/24 History Sacubitril/Valsartan [Entresto 24 1 tab PO BID 01/12/22 01/09/24 History mg-26 mg Tablet] Omeprazole [PriLOSEC] 20 mg PO DAILY 03/05/22 01/09/24 History Bumetanide [BUMEX] 2 mg PO DAILY 09/09/22 01/09/24 History Ipratropium [place] [Atrovent Hfa] 2 puff INHALATION RT-QID 09/09/22 01/09/24 History ALPRAZolam [Xanax] 0.25 mg PO TID PRN 05/30/23 01/09/24 History Ammonium Lactate Lotion 1 applic TOPICAL BID PRN 05/30/23 01/09/24 History [Lac-Hydrin 12% Lotion] Aspirin 81 mg PO DAILY 05/30/23 01/09/24 History Atorvastatin [Lipitor] 20 mg PO DAILY 05/30/23 01/09/24 History Cholecalciferol [Vitamin D3 (25 25 mcg PO DAILY 05/30/23 01/09/24 History Mcg = 1000 Iu)] Escitalopram [Lexapro] 10 mg PO DAILY 05/30/23 01/09/24 History Furosemide [Lasix] 80 mg PO DAILY 05/30/23 01/09/24 History Insulin Glargine,Hum.rec.anlog 16 - 18 units SQ HS 05/30/23 01/09/24 History [[place] Max Solostar] Insulin Glargine,Hum.rec.anlog 24 units SQ DAILY 05/30/23 01/09/24 History [Toujeo Max Solostar] Multivit-Min/FA/Lycopen/Lutein 1 tab PO DAILY 05/30/23 01/09/24 History [Centrum Silver Tablet] Potassium Chloride ER [K-Dur 20] 20 meq PO DAILY 05/30/23 01/09/24 History Albuterol Inhaler [Ventolin Hfa 2 puff INHALATION RT-QID PRN 01/09/24 01/09/24 History Inhaler] Ascorbic Acid [Vitamin C] 1,000 mg PO DAILY 01/09/24 01/09/24 History Vit C/E/Zn/Coppr/Lutein/Zeaxan 1 cap PO BID 01/09/24 01/09/24 History [Preservision Areds 2 Softgel] carvediloL [Coreg] 3.125 mg PO BID 01/09/24 01/09/24 History Allergies Allergy/AdvReac Type Severity Reaction Status Date / Time shellfish derived [Shellfish] Allergy Severe vomiting Verified 01/09/24 19:11 -very ill adhesive Allergy skin red Verified 01/09/24 19:11 and murguia, tears skin aluminum Allergy skin turns Verified 01/09/24 19:11 black, passes out Antihistamines - Allergy heart Verified 01/09/24 19:11 Ethylenediamine palpitations codeine Allergy migraines Verified 01/09/24 19:11 epinephrine Allergy heart Verified 01/09/24 19:11 palpitations fluticasone [From Flonase] Allergy Unknown Verified 01/09/24 19:11 hydrogen peroxide Allergy murguia and Verified 01/09/24 19:11 causes infection latex Allergy passes out Verified 01/09/24 19:11 nickel Allergy turns skin Verified 01/09/24 19:11 black and passes out procaine HCl [From Novocain] Allergy passed Verified 01/09/24 19:11 out- due to epinephrine in it. thiopental sodium Allergy needed cpr Verified 01/09/24 19:11 [From Pentothal] resusitation methocarbamol [From Robaxin] AdvReac Hallucinati Verified 01/09/24 19:11 ons surgical felicita Allergy Severe had to be Uncoded 01/09/24 19:11 removed 2 days post-op petroleum products AdvReac passes out Uncoded 01/09/24 19:11 or does not feel well. (diesel, oils) Physical Exam Vitals: Vital Signs Temp Pulse Pulse Resp BP BP Pulse Ox 01/10/24 07:05 98.6 F 71 20 120/69 97 01/10/24 01:09 100/66 01/10/24 00:41 98.0 F 69 18 90/54 95 01/09/24 22:45 98.7 F 82 17 99/61 95 01/09/24 21:00 98.1 F 75 16 112/65 95 01/09/24 20:13 100.0 F H 01/09/24 19:00 74 18 137/76 95 01/09/24 18:00 99.0 F 01/09/24 17:00 84 20 147/85 95 01/09/24 16:19 95 01/09/24 15:16 100.9 F H 95 20 157/85 98 Intake and Output 01/09/24 01/10/24 01/10/24 22:59 06:59 14:59 Intake Total 1250 Output Total 300 Balance 1250 -300 Intake: IV 1250 Invasive Line 2 1250 Output: Urine 300 Straight 300 Other: Voiding Method Indwelling Catheter Weight 83.007 kg Results CBC & Chem 7: 01/10/24 03:41 01/09/24 16:44 Labs: Abnormal Lab Results - Last 24 Hours (Table) 01/09/24 01/09/24 01/09/24 Range/Units 16:44 16:44 19:27 WBC (4.50-10.00) X 10*3/uL RBC (4.10-5.20) X 10*6/uL Hgb 11.3 L (11.4-16.0) gm/dL Hct (37.2-46.3) % MCH (27.0-32.0) pg MCHC (32.0-37.0) g/dL RDW 15.6 H (11.5-15.5) % Neutrophils # 9.3 H (1.3-7.7) k/uL Lymphocytes # 0.3 L (1.0-4.8) k/uL Eosinophils # (0.04-0.35) X 10*3/uL BUN 43 H (7-17) mg/dL Creatinine 1.23 H (0.52-1.04) mg/dL Glucose 248 H (74-99) mg/dL POC Glucose (mg/dL) 201 H (70-110) mg/dL AST 46 H (14-36) U/L Alkaline Phosphatase 155 H (38-126) U/L Total Protein 6.2 L (6.3-8.2) g/dL Albumin 3.0 L (3.5-5.0) g/dL Ur Leukocyte Esterase (Negative) Urine RBC (0-5) /hpf Urine Bacteria (None) /hpf Urine Mucus (None) /hpf 01/10/24 01/10/24 01/10/24 Range/Units 01:06 03:41 05:38 WBC 12.89 H (4.50-10.00) X 10*3/uL RBC 3.07 L (4.10-5.20) X 10*6/uL Hgb 8.2 L (11.4-16.0) gm/dL Hct 26.8 L (37.2-46.3) % MCH 26.7 L (27.0-32.0) pg MCHC 30.6 L (32.0-37.0) g/dL RDW 16.1 H (11.5-15.5) % Neutrophils # 10.94 H (1.3-7.7) k/uL Lymphocytes # (1.0-4.8) k/uL Eosinophils # 0.03 L (0.04-0.35) X 10*3/uL BUN (7-17) mg/dL Creatinine (0.52-1.04) mg/dL Glucose (74-99) mg/dL POC Glucose (mg/dL) 194 H (70-110) mg/dL AST (14-36) U/L Alkaline Phosphatase (38-126) U/L Total Protein (6.3-8.2) g/dL Albumin (3.5-5.0) g/dL Ur Leukocyte Esterase Trace H (Negative) Urine RBC 20 H (0-5) /hpf Urine Bacteria Rare H (None) /hpf Urine Mucus Rare H (None) /hpf 01/10/24 Range/Units 06:44 WBC (4.50-10.00) X 10*3/uL RBC (4.10-5.20) X 10*6/uL Hgb (11.4-16.0) gm/dL Hct (37.2-46.3) % MCH (27.0-32.0) pg MCHC (32.0-37.0) g/dL RDW (11.5-15.5) % Neutrophils # (1.3-7.7) k/uL Lymphocytes # (1.0-4.8) k/uL Eosinophils # (0.04-0.35) X 10*3/uL BUN (7-17) mg/dL Creatinine (0.52-1.04) mg/dL Glucose (74-99) mg/dL POC Glucose (mg/dL) 151 H (70-110) mg/dL AST (14-36) U/L Alkaline Phosphatase (38-126) U/L Total Protein (6.3-8.2) g/dL Albumin (3.5-5.0) g/dL Ur Leukocyte Esterase (Negative) Urine RBC (0-5) /hpf Urine Bacteria (None) /hpf Urine Mucus (None) /hpf Thrombosis Risk Factor Assmnt - Choose All That Apply Any of the Below Risk Factors Present?: Yes Each Factor Represents 1 point: Obesity (BMI >25) Other Risk Factors: Yes Each Risk Factor Represents 2 Points: Patient confined to bed Each Risk Factor Represents 3 Points: Age 75 years or older, History of DVT/PE Other congenital or acquired thrombophilia - If yes, enter type in comment: No Thrombosis Risk Factor Assessment Total Risk Factor Score: 9 Thrombosis Risk Factor Assessment Level: High Risk
[2024-01-10] MEDS: SODIUM CHLORIDE 0.9% 1,000 ML IV SCH (16:06)
[2024-01-10 16:41] LABS: Glucose,Whole Blood 133 mg/dL (70-110)
[2024-01-10 20:28] LABS: Glucose,Whole Blood 131 mg/dL (70-110)
[2024-01-10] MEDS ORDERED: ZINC OXIDE PASTE (Z-GUARD) 1 APPLIC TOPICAL SCH (21:00)
[2024-01-10] MEDS: ACETAMINOPHEN TAB 325 MG TAB PO PRN (21:47)
--- NOTE | 2024-01-10 22:18 | P.CONS ---
History of Present Illness - Reason for Consult Consult date: 01/10/24 Fever Requesting physician: Tra Jackson - Chief Complaint Fever mental status changes and abdominal pain x 1 day - History of Present Illness Patient is a 78-year-old female with a past medical history significant for atrial fibrillation coronary disease diabetes mellitus hypertension [place] patient has been brought into the hospital for evaluation of mental status changes fever and confusion in this patient symptom has been going on for about a day before the patient has been brought to the hospital apparently the patient also complaining of abdominal pain as reported by the ER physician but no vomiting or diarrhea has been reported patient denies having any chest pain or shortness with it have some cough but no sputum production and no significant urinary symptoms patient to presentation to the hospital did have a temperature of 100.9 degrees for night patient was nontachycardic hypotensive or hypoxic patient did have a white count of 12.89 creatinine is 1.6 liver enzymes are normal urine has been negative patient tested negative for influenza RSV and COVID patient did have a chest x-ray with suggestion of right lung opacity consider atypical pneumonia patient did have abdominal pelvis CT ascites 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 patient also have gotten better ultrasound mild diabetes within the gallbladder and ascites patient will be started on Rocephin Zithromax concern for pneumonia infectious disease was consulted for further management of antibiotic therapy Review of Systems Positive point and negatives has been mentioned in the HPI, complete review of systems was performed and all other systems are negative Past Medical History Past Medical History: Atrial Fibrillation, Coronary Artery Disease (CAD), CVA/TIA, Diabetes Mellitus, Deep Vein Thrombosis (DVT), Hypertension, Myocardial Infarction ([place]), Osteoarthritis (OA) Additional Past Medical History / Comment(s): hx tia, hx stroke behind left eye., lt eye macular , states hospitalized with Covid April 2019 with life support and stage 3 kidney failure., hx of fall with hip fx and surgery 01/13/22 went to [facility] for Rehab. DVT during ., varicose veins, states painful sore left heel., hx of t.b. as a child with scarring on lungs. 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 clausterphobia. 1961 blood transfusion(during child ) pt stated had palpitations after 2nd unit given Past Psychological History: Anxiety Smoking Status: Never smoker Past Alcohol Use History: None Reported Past Drug Use History: None Reported - Past Family History Mother Family Medical History: Cancer Additional Family Medical History / Comment(s): lung cancer Father Family Medical History: Coronary Artery Disease (CAD) Additional Family Medical History / Comment(s): heart disease, kidney disese Medications and Allergies Home Medications Medication Instructions Recorded Confirmed Type Apixaban [Eliquis] 5 mg PO BID 08/13/20 01/09/24 History Sacubitril/Valsartan [Entresto 24 1 tab PO BID 01/12/22 01/09/24 History mg-26 mg Tablet] Omeprazole [PriLOSEC] 20 mg PO DAILY 03/05/22 01/09/24 History Bumetanide [BUMEX] 2 mg PO DAILY 09/09/22 01/09/24 History Ipratropium [place] [Atrovent Hfa] 2 puff INHALATION RT-QID 09/09/22 01/09/24 History ALPRAZolam [Xanax] 0.25 mg PO TID PRN 05/30/23 01/09/24 History Ammonium Lactate Lotion 1 applic TOPICAL BID PRN 05/30/23 01/09/24 History [Lac-Hydrin 12% Lotion] Aspirin 81 mg PO DAILY 05/30/23 01/09/24 History Atorvastatin [Lipitor] 20 mg PO DAILY 05/30/23 01/09/24 History Cholecalciferol [Vitamin D3 (25 25 mcg PO DAILY 05/30/23 01/09/24 History Mcg = 1000 Iu)] Escitalopram [Lexapro] 10 mg PO DAILY 05/30/23 01/09/24 History Furosemide [Lasix] 80 mg PO DAILY 05/30/23 01/09/24 History Insulin Glargine,Hum.rec.anlog 16 - 18 units SQ HS 05/30/23 01/09/24 History [Toujeo Max Solostar] Insulin Glargine,Hum.rec.anlog 24 units SQ DAILY 05/30/23 01/09/24 History [Toujeo Max Solostar] Multivit-Min/FA/Lycopen/Lutein 1 tab PO DAILY 05/30/23 01/09/24 History [Centrum Silver Tablet] Potassium Chloride ER [K-Dur 20] 20 meq PO DAILY 05/30/23 01/09/24 History Albuterol Inhaler [Ventolin Hfa 2 puff INHALATION RT-QID PRN 01/09/24 01/09/24 History Inhaler] Ascorbic Acid [Vitamin C] 1,000 mg PO DAILY 01/09/24 01/09/24 History Vit C/E/Zn/Coppr/Lutein/Zeaxan 1 cap PO BID 01/09/24 01/09/24 History [Preservision Areds 2 Softgel] carvediloL [Coreg] 3.125 mg PO BID 01/09/24 01/09/24 History Allergies Allergy/AdvReac Type Severity Reaction Status Date / Time shellfish derived [Shellfish] Allergy Severe vomiting Verified 01/09/24 19:11 -very ill adhesive Allergy skin red Verified 01/09/24 19:11 and murguia, tears skin aluminum Allergy skin turns Verified 01/09/24 19:11 black, passes out Antihistamines - Allergy heart Verified 01/09/24 19:11 Ethylenediamine palpitations codeine Allergy migraines Verified 01/09/24 19:11 epinephrine Allergy heart Verified 01/09/24 19:11 palpitations fluticasone [From Flonase] Allergy Unknown Verified 01/09/24 19:11 hydrogen peroxide Allergy murguia and Verified 01/09/24 19:11 causes infection latex Allergy passes out Verified 01/09/24 19:11 nickel Allergy turns skin Verified 01/09/24 19:11 black and passes out procaine HCl [From Novocain] Allergy passed Verified 01/09/24 19:11 out- due to epinephrine in it. thiopental sodium Allergy needed cpr Verified 01/09/24 19:11 [From Pentothal] resusitation methocarbamol [From Robaxin] AdvReac Hallucinati Verified 01/09/24 19:11 ons zinc oxide AdvReac Rash/Hives Verified 01/10/24 15:11 surgical felicita Allergy Severe had to be Uncoded 01/09/24 19:11 removed 2 days post-op petroleum products AdvReac passes out Uncoded 01/09/24 19:11 or does not feel well. (diesel, oils) Physical Exam Vitals: Vital Signs Temp Pulse Pulse Resp BP BP Pulse Ox 01/10/24 07:05 98.6 F 71 20 120/69 97 01/10/24 01:09 100/66 01/10/24 00:41 98.0 F 69 18 90/54 95 01/09/24 22:45 98.7 F 82 17 99/61 95 01/09/24 21:00 98.1 F 75 16 112/65 95 01/09/24 20:13 100.0 F H 01/09/24 19:00 74 18 137/76 95 01/09/24 18:00 99.0 F 01/09/24 17:00 84 20 147/85 95 01/09/24 16:19 95 01/09/24 15:16 100.9 F H 95 20 157/85 98 Intake and Output 01/09/24 01/10/24 01/10/24 22:59 06:59 14:59 Intake Total 1250 Output Total 300 Balance 1250 -300 Intake: IV 1250 Invasive Line 2 1250 Output: Urine 300 Straight 300 Other: Voiding Method Indwelling Catheter Weight 83.007 kg GENERAL DESCRIPTION: Elderly female lying in bed, no distress. No tachypnea or accessory muscle of respiration use. HEENT: Shows Pallor , no scleral icterus. Oral mucous membrane is dry. No pharyngeal erythema or thrush NECK: Trachea central, no thyromegaly. LUNGS: Unlabored breathing. Decreased breath sound at the base HEART: S1, S2, regular rate and rhythm. No loud murmur ABDOMEN: Soft, no tenderness , guarding or rigidity, no organomegaly EXTREMITIES: No edema of feet. SKIN: Some excoriation to the lower back no significant redness or drainage NEUROLOGICAL: The patient is awake, alert, oriented x3, mood and affect normal. Results CBC & Chem 7: 01/15/24 02:40 01/15/24 02:40 Labs: Abnormal Lab Results - Last 24 Hours (Table) 01/09/24 01/09/24 01/09/24 Range/Units 16:44 16:44 19:27 WBC (4.50-10.00) X 10*3/uL RBC (4.10-5.20) X 10*6/uL Hgb 11.3 L (11.4-16.0) gm/dL Hct (37.2-46.3) % MCH (27.0-32.0) pg MCHC (32.0-37.0) g/dL RDW 15.6 H (11.5-15.5) % Neutrophils # 9.3 H (1.3-7.7) k/uL Lymphocytes # 0.3 L (1.0-4.8) k/uL Eosinophils # (0.04-0.35) X 10*3/uL BUN 43 H (7-17) mg/dL Creatinine 1.23 H (0.52-1.04) mg/dL Est GFR (CKD-EPI) (>=60) BUN/Creatinine Ratio (12.00-20.00) Ratio Glucose 248 H (74-99) mg/dL POC Glucose (mg/dL) 201 H (70-110) mg/dL Calcium (8.7-10.3) mg/dL AST 46 H (14-36) U/L Alkaline Phosphatase 155 H (38-126) U/L Total Protein 6.2 L (6.3-8.2) g/dL Albumin 3.0 L (3.5-5.0) g/dL Albumin/Globulin Ratio (1.60-3.17) Ratio Ur Leukocyte Esterase (Negative) Urine RBC (0-5) /hpf Urine Bacteria (None) /hpf Urine Mucus (None) /hpf 01/10/24 01/10/24 01/10/24 Range/Units 01:06 03:41 03:41 WBC 12.89 H (4.50-10.00) X 10*3/uL RBC 3.07 L (4.10-5.20) X 10*6/uL Hgb 8.2 L (11.4-16.0) gm/dL Hct 26.8 L (37.2-46.3) % MCH 26.7 L (27.0-32.0) pg MCHC 30.6 L (32.0-37.0) g/dL RDW 16.1 H (11.5-15.5) % Neutrophils # 10.94 H (1.3-7.7) k/uL Lymphocytes # (1.0-4.8) k/uL Eosinophils # 0.03 L (0.04-0.35) X 10*3/uL BUN 42.2 H (7-17) mg/dL Creatinine 1.6 H (0.52-1.04) mg/dL Est GFR (CKD-EPI) 32 L (>=60) BUN/Creatinine Ratio 26.38 H (12.00-20.00) Ratio Glucose 167 H (74-99) mg/dL POC Glucose (mg/dL) 194 H (70-110) mg/dL Calcium 8.4 L (8.7-10.3) mg/dL AST 37 H (14-36) U/L Alkaline Phosphatase (38-126) U/L Total Protein 5.2 L (6.3-8.2) g/dL Albumin 2.6 L (3.5-5.0) g/dL Albumin/Globulin Ratio 1.00 L (1.60-3.17) Ratio Ur Leukocyte Esterase (Negative) Urine RBC (0-5) /hpf Urine Bacteria (None) /hpf Urine Mucus (None) /hpf 01/10/24 01/10/24 01/10/24 Range/Units 05:38 06:44 11:35 WBC (4.50-10.00) X 10*3/uL RBC (4.10-5.20) X 10*6/uL Hgb (11.4-16.0) gm/dL Hct (37.2-46.3) % MCH (27.0-32.0) pg MCHC (32.0-37.0) g/dL RDW (11.5-15.5) % Neutrophils # (1.3-7.7) k/uL Lymphocytes # (1.0-4.8) k/uL Eosinophils # (0.04-0.35) X 10*3/uL BUN (7-17) mg/dL Creatinine (0.52-1.04) mg/dL Est GFR (CKD-EPI) (>=60) BUN/Creatinine Ratio (12.00-20.00) Ratio Glucose (74-99) mg/dL POC Glucose (mg/dL) 151 H 151 H (70-110) mg/dL Calcium (8.7-10.3) mg/dL AST (14-36) U/L Alkaline Phosphatase (38-126) U/L Total Protein (6.3-8.2) g/dL Albumin (3.5-5.0) g/dL Albumin/Globulin Ratio (1.60-3.17) Ratio Ur Leukocyte Esterase Trace H (Negative) Urine RBC 20 H (0-5) /hpf Urine Bacteria Rare H (None) /hpf Urine Mucus Rare H (None) /hpf Assessment and Plan (1) Fever Current Visit: Yes Status: Acute Code(s): R50.9 - FEVER, UNSPECIFIED SNOMED Code(s): 771471287 Plan: 1patient presenting to the hospital with fever metastatic disease abdominal pain in this patient who did have mildly elevated liver enzymes with question of possibly related to the gallbladder disease abdominal source patient did have some infiltrate on the right side underlying pneumonia not entirely excluded but not typical presentation for pneumonia 2-we will check CRP and procalcitonin 3-I will continue with Rocephin Zithromax while waiting for the workup to be completed We will follow on clinical condition and cultures to further adjust medication if needed Thank you for this consultation we will follow the patient along with you Dictation was produced using [employer] dictation software. please excuse any grammatical, word or spelling errors. Time with Patient: Greater than 30
[2024-01-11 06:33] LABS: Glucose,Whole Blood 65 mg/dL (70-110)
[2024-01-11 07:08] LABS: Glucose,Whole Blood 93 mg/dL (70-110)
--- NOTE | 2024-01-11 08:32 | P.GSCN ---
History of Present Illness Consult date: 01/11/24 Reason for Consult: Abdominal pain History of present illness: This an 78-year-old female who was admitted to the hospital complaints of some v ague abdominal pain. Her CAT scan shows evidence of ascites. Patient was previous seen by Dr. Isbell. Patient has acute on chronic cholecystitis history. Patient currently has no significant pain in her abdomen. She is complaining of pain in her knee. Past Medical History Past Medical History: Atrial Fibrillation, Coronary Artery Disease (CAD), CVA/TIA, Diabetes Mellitus, Deep Vein Thrombosis (DVT), Hypertension, Myocardial Infarction ([place]), Osteoarthritis (OA) Additional Past Medical History / Comment(s): hx tia, hx stroke behind left eye., lt eye macular , states hospitalized with Covid April 2019 with life support and stage 3 kidney failure., hx of fall with hip fx and surgery 01/13/[address] [facility] for Rehab. DVT during ., varicose veins, states painful sore left heel., hx of t.b. as a child with scarring on lungs. 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 clausterphobia. 1961 blood transfusion(during child ) pt stated had palpitations after 2nd unit given Past Psychological History: Anxiety Smoking Status: Never smoker Past Alcohol Use History: None Reported Past Drug Use History: None Reported - Past Family History Mother Family Medical History: Cancer Additional Family Medical History / Comment(s): lung cancer Father Family Medical History: Coronary Artery Disease (CAD) Additional Family Medical History / Comment(s): heart disease, kidney disese Medications and Allergies Home Medications Medication Instructions Recorded Confirmed Type Apixaban [Eliquis] 5 mg PO BID 08/13/20 01/09/24 History Sacubitril/Valsartan [Entresto 24 1 tab PO BID 01/12/22 01/09/24 History mg-26 mg Tablet] Omeprazole [PriLOSEC] 20 mg PO DAILY 03/05/22 01/09/24 History Bumetanide [BUMEX] 2 mg PO DAILY 09/09/22 01/09/24 History Ipratropium [place] [Atrovent Hfa] 2 puff INHALATION RT-QID 09/09/22 01/09/24 History ALPRAZolam [Xanax] 0.25 mg PO TID PRN 05/30/23 01/09/24 History Ammonium Lactate Lotion 1 applic TOPICAL BID PRN 05/30/23 01/09/24 History [Lac-Hydrin 12% Lotion] Aspirin 81 mg PO DAILY 05/30/23 01/09/24 History Atorvastatin [Lipitor] 20 mg PO DAILY 05/30/23 01/09/24 History Cholecalciferol [Vitamin D3 (25 25 mcg PO DAILY 05/30/23 01/09/24 History Mcg = 1000 Iu)] Escitalopram [Lexapro] 10 mg PO DAILY 05/30/23 01/09/24 History Furosemide [Lasix] 80 mg PO DAILY 05/30/23 01/09/24 History Insulin Glargine,Hum.rec.anlog 16 - 18 units SQ HS 05/30/23 01/09/24 History [Toujeo Max Solostar] Insulin Glargine,Hum.rec.anlog 24 units SQ DAILY 05/30/23 01/09/24 History [Toujeo Max Solostar] Multivit-Min/FA/Lycopen/Lutein 1 tab PO DAILY 05/30/23 01/09/24 History [Centrum Silver Tablet] Potassium Chloride ER [K-Dur 20] 20 meq PO DAILY 05/30/23 01/09/24 History Albuterol Inhaler [Ventolin Hfa 2 puff INHALATION RT-QID PRN 01/09/24 01/09/24 History Inhaler] Ascorbic Acid [Vitamin C] 1,000 mg PO DAILY 01/09/24 01/09/24 History Vit C/E/Zn/Coppr/Lutein/Zeaxan 1 cap PO BID 01/09/24 01/09/24 History [Preservision Areds 2 Softgel] carvediloL [Coreg] 3.125 mg PO BID 01/09/24 01/09/24 History Allergies Allergy/AdvReac Type Severity Reaction Status Date / Time shellfish derived [Shellfish] Allergy Severe vomiting Verified 01/09/24 19:11 -very ill adhesive Allergy skin red Verified 01/09/24 19:11 and murguia, tears skin aluminum Allergy skin turns Verified 01/09/24 19:11 black, passes out Antihistamines - Allergy heart Verified 01/09/24 19:11 Ethylenediamine palpitations codeine Allergy migraines Verified 01/09/24 19:11 epinephrine Allergy heart Verified 01/09/24 19:11 palpitations fluticasone [From Flonase] Allergy Unknown Verified 01/09/24 19:11 hydrogen peroxide Allergy murguia and Verified 01/09/24 19:11 causes infection latex Allergy passes out Verified 01/09/24 19:11 nickel Allergy turns skin Verified 01/09/24 19:11 black and passes out procaine HCl [From Novocain] Allergy passed Verified 01/09/24 19:11 out- due to epinephrine in it. thiopental sodium Allergy needed cpr Verified 01/09/24 19:11 [From Pentothal] resusitation methocarbamol [From Robaxin] AdvReac Hallucinati Verified 01/09/24 19:11 ons zinc oxide AdvReac Rash/Hives Verified 01/10/24 15:11 surgical felicita Allergy Severe had to be Uncoded 01/09/24 19:11 removed 2 days post-op petroleum products AdvReac passes out Uncoded 01/09/24 19:11 or does not feel well. (diesel, oils) Surgical - Exam Vital Signs Temp Pulse Resp BP Pulse Ox 100.9 F H 95 20 157/85 98 01/09/24 15:16 01/09/24 15:16 01/09/24 15:16 01/09/24 15:16 01/09/24 15:16 - General no distress - Eyes PERRL - ENT normal pinna - Neck no masses - Respiratory normal expansion - Cardiovascular Rhythm: regular - Abdomen Abdomen: soft, non tender Results - Labs 01/10/24 03:41 01/10/24 03:41 Abnormal Lab Results - Last 24 Hours (Table) 01/10/24 01/10/24 01/10/24 Range/Units 03:41 03:41 11:35 WBC 12.89 H (4.50-10.00) X 10*3/uL RBC 3.07 L (4.10-5.20) X 10*6/uL Hgb 8.2 L (12.0-15.0) g/dL Hct 26.8 L (37.2-46.3) % MCH 26.7 L (27.0-32.0) pg MCHC 30.6 L (32.0-37.0) g/dL RDW 16.1 H (11.5-14.5) % Neutrophils # 10.94 H (1.80-7.70) X 10*3/uL Eosinophils # 0.03 L (0.04-0.35) X 10*3/uL BUN 42.2 H (9.0-27.0) mg/dL Creatinine 1.6 H (0.6-1.5) mg/dL Est GFR (CKD-EPI) 32 L (>=60) BUN/Creatinine Ratio 26.38 H (12.00-20.00) Ratio Glucose 167 H (70-110) mg/dL POC Glucose (mg/dL) 151 H (70-110) mg/dL Calcium 8.4 L (8.7-10.3) mg/dL AST 37 H (13-35) U/L Total Protein 5.2 L (6.2-8.2) g/dL Albumin 2.6 L (3.8-4.9) g/dL Albumin/Globulin Ratio 1.00 L (1.60-3.17) Ratio 01/10/24 01/10/24 01/11/24 Range/Units 16:40 20:26 06:31 WBC (4.50-10.00) X 10*3/uL RBC (4.10-5.20) X 10*6/uL Hgb (12.0-15.0) g/dL Hct (37.2-46.3) % MCH (27.0-32.0) pg MCHC (32.0-37.0) g/dL RDW (11.5-14.5) % Neutrophils # (1.80-7.70) X 10*3/uL Eosinophils # (0.04-0.35) X 10*3/uL BUN (9.0-27.0) mg/dL Creatinine (0.6-1.5) mg/dL Est GFR (CKD-EPI) (>=60) BUN/Creatinine Ratio (12.00-20.00) Ratio Glucose (70-110) mg/dL POC Glucose (mg/dL) 133 H 131 H 65 L (70-110) mg/dL Calcium (8.7-10.3) mg/dL AST (13-35) U/L Total Protein (6.2-8.2) g/dL Albumin (3.8-4.9) g/dL Albumin/Globulin Ratio (1.60-3.17) Ratio Microbiology - Last 24 Hours (Table) 01/09/24 16:44 Blood Culture - Preliminary Blood Diabetes panel 01/10/24 Range/Units 03:41 Sodium 142 (135-145) mmol/L Potassium 4.2 (3.5-5.5) mmol/L Chloride 108 (96-109) mmol/L Carbon Dioxide 22.6 (21.6-31.8) mmol/L BUN 42.2 H (9.0-27.0) mg/dL Creatinine 1.6 H (0.6-1.5) mg/dL Glucose 167 H (70-110) mg/dL Calcium 8.4 L (8.7-10.3) mg/dL AST 37 H (13-35) U/L ALT 17 (8-44) U/L Alkaline Phosphatase 125 (41-126) U/L Total Protein 5.2 L (6.2-8.2) g/dL Albumin 2.6 L (3.8-4.9) g/dL Calcium panel 01/10/24 Range/Units 03:41 Calcium 8.4 L (8.7-10.3) mg/dL Phosphorus 3.5 (2.4-5.1) mg/dL Albumin 2.6 L (3.8-4.9) g/dL Pituitary panel 01/10/24 Range/Units 03:41 Sodium 142 (135-145) mmol/L Potassium 4.2 (3.5-5.5) mmol/L Chloride 108 (96-109) mmol/L Carbon Dioxide 22.6 (21.6-31.8) mmol/L BUN 42.2 H (9.0-27.0) mg/dL Creatinine 1.6 H (0.6-1.5) mg/dL Glucose 167 H (70-110) mg/dL Calcium 8.4 L (8.7-10.3) mg/dL Adrenal panel 01/10/24 Range/Units 03:41 Sodium 142 (135-145) mmol/L Potassium 4.2 (3.5-5.5) mmol/L Chloride 108 (96-109) mmol/L Carbon Dioxide 22.6 (21.6-31.8) mmol/L BUN 42.2 H (9.0-27.0) mg/dL Creatinine 1.6 H (0.6-1.5) mg/dL Glucose 167 H (70-110) mg/dL Calcium 8.4 L (8.7-10.3) mg/dL Total Bilirubin 0.4 (0.3-1.2) mg/dL AST 37 H (13-35) U/L ALT 17 (8-44) U/L Alkaline Phosphatase 125 (41-126) U/L Total Protein 5.2 L (6.2-8.2) g/dL Albumin 2.6 L (3.8-4.9) g/dL Assessment and Plan Assessment: History of acute on chronic cholecystitis. Patient has no significant abdominal pain. Patient will be observed. She will be reevaluated a by [facility] the morning.
[2024-01-11] MEDS: APIXABAN 2.5 MG TABLET PO SCH (08:46)
--- NOTE | 2024-01-11 11:49 | P.PN ---
Subjective agent is seen for follow-up for acute kidney injury and chronic kidney disease. Overall feels better. No significant complaints today. Maintained on IV fluids at 50 mL an hour. Labs are pending from today. Objective - Vital Signs Vital signs: Vital Signs Temp 98.1 F 01/11/24 07:21 Pulse 76 01/11/24 07:21 Resp 18 01/11/24 07:21 BP 143/75 01/11/24 07:21 Pulse Ox 95 01/11/24 07:21 FiO2 Intake & Output 01/10/24 01/11/24 01/11/24 18:59 06:59 18:59 Output Total 225 400 Balance -225 -400 Output: Urine 225 400 Other: Voiding Method Indwelling Catheter Indwelling Catheter # Bowel Movements 1 1 - Exam patient is awake, comfortable, no acute distress. Examination of the heart S1 and S2 Examination of the lungs decreased breath sounds at the bases Abdomen is soft nontender Examination of lower extremities shows edema 1+ bilaterally, patient does not move her legs much [employer]UL[employer] exam intact with no motor deficits. Patient is answering questions appropriately. - Labs CBC & Chem 7: 01/10/24 03:41 01/10/24 03:41 Labs: Abnormal Lab Results - Last 24 Hours (Table) 01/10/24 01/10/24 01/11/24 Range/Units 16:40 20:26 02:33 POC Glucose (mg/dL) 133 H 131 H (70-110) mg/dL Hemoglobin A1c 7.6 H (<=6.0) % Procalcitonin (0.02-0.50) ng/mL 01/11/24 01/11/24 Range/Units 02:33 06:31 POC Glucose (mg/dL) 65 L (70-110) mg/dL Hemoglobin A1c (<=6.0) % Procalcitonin 10.70 H (0.02-0.50) ng/mL Microbiology - Last 24 Hours (Table) 01/09/24 16:44 Blood Culture - Preliminary Blood Assessment and Plan Assessment: 1. Acute kidney injury, ATN secondary to hypotension. Underlying history of CHF. IV fluids have been decreased. Diuretics and Entresto on hold. No obstruction noted on CT of the abdomen. UA is unremarkable. 2. Right lung pneumonia maintained on antibiotics 3. Mild volume overload 4. Anemia rule out iron deficiency 5. CK D NKF stage III with baseline creatinine around 1.6-1.4 mg/dL with multiple episodes of acute kidney injury associated with admissions and CHF exa cerbation. Plan: Continue saline at 50 mL an hour. Check labs Encouraged increased oral intake. Follow-up on iron profile
[2024-01-11 12:07] LABS: Glucose,Whole Blood 102 mg/dL (70-110)
[2024-01-11 12:40] LABS: BUN/Creat Ratio 25.47 Ratio (12.00-20.00); Blood Urea Nitrogen 43.3 mg/dL (9.0-27.0); Chloride 109 mmol/L (96-109); Glucose 69 mg/dL (70-110); Potassium 4.1 mmol/L (3.5-5.5); Sodium 141 mmol/L (135-145)
[2024-01-11 12:41] LABS: ALT 17 U/L (8-44); AST 39 U/L (13-35); Albumin 2.6 g/dL (3.8-4.9); Albumin/Globulin Ratio 0.96 Ratio (1.60-3.17); Alkaline Phosphatase 113 U/L (41-126); Calcium 8.3 mg/dL (8.7-10.3); Carbon Dioxide 19.9 mmol/L (21.6-31.8); Globulin 2.7 g/dL (1.6-3.3); Total Bilirubin 0.2 mg/dL (0.3-1.2); Total Protein 5.3 g/dL (6.2-8.2)
--- NOTE | 2024-01-11 12:43 | P.PN ---
Subjective Progress Note Date: 01/11/24 patient is a 78-year-old lady with past medical history significant for atrial fibrillation, coronary disease, CVA, diabetes mellitus, DVT, hypertension who presented the ER because of abdominal pain. Patient in the past was admitted to our facility in May of this year at which time patient was found to have acute on chronic cholecystitis, underwent ERCP which showed no choledocholithiasis, stricture or ductal dilatation. Patient was later transferred to tertiary care center for transaminitis. Patient was brought to the ER for worsening abdominal pain and confusion. Patient also found to have fevers at home. There is no complaint of chest pain or shortness of breath. Denies any nausea or vomiting. Patient is complaining abdominal distention. Because of the symptoms, patient presented the ER Initial lab work done in the ER showed WBC 10, hemoglobin 11.3, platelet count 213, sodium 141, potassium 4.4, BUN 43, creatinine 1.23, glucose 248, AST 46, ALT 20, alk phos 155 ammonia 15, urine not suspicious for infection Influenza A not detected Influenza B not detected RSV not detected COVID-19 not detected Gallbladder ultrasound done showed ascites, mild debris's within the gallbladder Chest x-ray done in the ER showed minimal increased lung markings diffusely throughout the right lung, consider atypical pneumonia CT abdomen done showed ascites, chronic dislocation of left femoral prosthesis Patient admitted to internal medicine service 01/10. Patient seen and examined. Patient has been afebrile overnight. States abdominal pain has improved. REVIEW OF SYSTEMS: CONSTITUTIONAL: No fever, no malaise,. CARDIOVASCULAR: No chest pain, no palpitations, no syncope. PULMONARY: No shortness of breath, no cough, GASTROINTESTINAL: No diarrhea, no nausea, no vomiting. NEUROLOGICAL: No headaches, no weakness, PHYSICAL EXAMINATION: GENERAL: The patient is alert and oriented x3, not in any acute distress. Well developed, well nourished. HEENT: Pupils are round and equally reacting to light. EOMI. No scleral icterus. No conjunctival pallor. Normocephalic, atraumatic. No pharyngeal erythema. No thyromegaly. CARDIOVASCULAR: S1 and S2 present. No murmurs, rubs, or gallops. PULMONARY: Chest is clear to auscultation, no wheezing or crackles. ABDOMEN: Soft, nontender, nondistended, normoactive bowel sounds. No palpable organomegaly. MUSCULOSKELETAL: No joint swelling or deformity. EXTREMITIES: No cyanosis, clubbing, or pedal edema. NEUROLOGICAL: Gross neurological examination did not reveal any focal deficits. SKIN: No rashes. Assessment and plan Abdominal pain Ascites Fever History of acute on chronic cholecystitis Atypical pneumonia Chronic diastolic CHF Diabetes mellitus chronic kidney disease stage III anemia of chronic kidney disease Monitor vital signs Monitor CBC Monitor CMP Continue telemetry monitoring Follow-up on blood cultures Ordered diagnostic and therapeutic paracentesis Continue IV Rocephin for possible SBP Continue IV antibiotics for atypical pneumonia ID following Surgery following Nephrology following Labs and medication were reviewed.. Continue same treatment. Continue with symptomatic treatment. Resume home medication. Monitor labs and vitals. DVT and GI prophylaxis. Further recommendations as per clinical course of the patient Dictation was produced using [employer] dictation software. please excuse any grammatical, word or spelling errors. Objective - Vital Signs Vital signs: Vital Signs Temp 98.1 F 01/11/24 07:21 Pulse 76 01/11/24 07:21 Resp 18 01/11/24 07:21 BP 143/75 01/11/24 07:21 Pulse Ox 95 01/11/24 07:21 FiO2 Intake & Output 01/10/24 01/11/24 01/11/24 18:59 06:59 18:59 Output Total 225 400 Balance -225 -400 Output: Urine 225 400 Other: Voiding Method Indwelling Catheter Indwelling Catheter # Bowel Movements 1 1 - Labs CBC & Chem 7: 01/10/24 03:41 01/11/24 02:33 Labs: Abnormal Lab Results - Last 24 Hours (Table) 01/10/24 01/10/24 01/10/24 Range/Units 03:41 11:35 16:40 BUN 42.2 H (9.0-27.0) mg/dL Creatinine 1.6 H (0.6-1.5) mg/dL Est GFR (CKD-EPI) 32 L (>=60) BUN/Creatinine Ratio 26.38 H (12.00-20.00) Ratio Glucose 167 H (70-110) mg/dL POC Glucose (mg/dL) 151 H 133 H (70-110) mg/dL Hemoglobin A1c (<=6.0) % Calcium 8.4 L (8.7-10.3) mg/dL AST 37 H (13-35) U/L Total Protein 5.2 L (6.2-8.2) g/dL Albumin 2.6 L (3.8-4.9) g/dL Albumin/Globulin Ratio 1.00 L (1.60-3.17) Ratio 01/10/24 01/11/24 01/11/24 Range/Units 20:26 02:33 06:31 BUN (9.0-27.0) mg/dL Creatinine (0.6-1.5) mg/dL Est GFR (CKD-EPI) (>=60) BUN/Creatinine Ratio (12.00-20.00) Ratio Glucose (70-110) mg/dL POC Glucose (mg/dL) 131 H 65 L (70-110) mg/dL Hemoglobin A1c 7.6 H (<=6.0) % Calcium (8.7-10.3) mg/dL AST (13-35) U/L Total Protein (6.2-8.2) g/dL Albumin (3.8-4.9) g/dL Albumin/Globulin Ratio (1.60-3.17) Ratio Microbiology - Last 24 Hours (Table) 01/09/24 16:44 Blood Culture - Preliminary Blood
[2024-01-11 16:56] LABS: Glucose,Whole Blood 122 mg/dL (70-110)
[2024-01-11 20:31] LABS: Glucose,Whole Blood 202 mg/dL (70-110)
--- NOTE | 2024-01-11 21:51 | P.PN ---
Subjective Progress Note Date: 01/11/24 Principal diagnosis: Reason for follow-up is fever Patient is a 78-year-old female with a past medical history significant for atrial fibrillation coronary disease diabetes mellitus hypertension CT patient has been brought into the hospital for evaluation of mental status changes fever and confusion patient also have a low-grade fever elevated white count CT abdomen shows ascites with the chest x-ray suggestive of right sided infiltrate and abdominal ultrasound with the debris's within the gallbladder. On today's evaluation that is 01/11/2024, the patient did have resolution of fever and is afebrile this morning, the patient is on room air and breathing comfortably, the Pt denies having any chest pain or cough, the patient denies having any abdominal pain no vomiting or any diarrhea has been reported by the nursing staff. Patient did have a creatinine 1.7 no CBC was done today cultures are currently pending did have elevated procalcitonin of 10.70 Objective - Vital Signs Vital signs: Vital Signs Temp 98.7 F 01/11/24 14:41 Pulse 71 01/11/24 14:41 Resp 17 01/11/24 14:41 BP 151/69 01/11/24 14:41 Pulse Ox 95 01/11/24 14:41 FiO2 Intake & Output 01/10/24 01/11/24 01/11/24 18:59 06:59 18:59 Output Total 225 400 325 Balance -225 -400 -325 Output: Urine 225 400 325 Other: Voiding Method Indwelling Catheter Indwelling Catheter # Bowel Movements 1 1 - Exam GENERAL DESCRIPTION: An elderly female lying in bed in no distress RESPIRATORY SYSTEM: Unlabored breathing , decreased breath sounds at bases HEART: S1 S2 regular rate and rhythm , ABDOMEN: Soft , no tenderness EXTREMITIES: No edema feet - Labs CBC & Chem 7: 01/10/24 03:41 01/11/24 02:33 Labs: Abnormal Lab Results - Last 24 Hours (Table) 01/10/24 01/11/24 01/11/24 Range/Units 20:26 02:33 02:33 Carbon Dioxide (21.6-31.8) mmol/L Anion Gap (4.00-12.00) mmol/L BUN (9.0-27.0) mg/dL Creatinine (0.6-1.5) mg/dL Est GFR (CKD-EPI) (>=60) BUN/Creatinine Ratio (12.00-20.00) Ratio Glucose (70-110) mg/dL POC Glucose (mg/dL) 131 H (70-110) mg/dL Hemoglobin A1c 7.6 H (<=6.0) % Calcium (8.7-10.3) mg/dL Total Bilirubin (0.3-1.2) mg/dL AST (13-35) U/L C-Reactive Protein (0.00-0.80) mg/dL Total Protein (6.2-8.2) g/dL Albumin (3.8-4.9) g/dL Albumin/Globulin Ratio (1.60-3.17) Ratio Procalcitonin 10.70 H (0.02-0.50) ng/mL 01/11/24 01/11/24 01/11/24 Range/Units 02:33 06:31 16:54 Carbon Dioxide 19.9 L (21.6-31.8) mmol/L Anion Gap 12.10 H (4.00-12.00) mmol/L BUN 43.3 H (9.0-27.0) mg/dL Creatinine 1.7 H (0.6-1.5) mg/dL Est GFR (CKD-EPI) 30 L (>=60) BUN/Creatinine Ratio 25.47 H (12.00-20.00) Ratio Glucose 69 L (70-110) mg/dL POC Glucose (mg/dL) 65 L 122 H (70-110) mg/dL Hemoglobin A1c (<=6.0) % Calcium 8.3 L (8.7-10.3) mg/dL Total Bilirubin 0.2 L (0.3-1.2) mg/dL AST 39 H (13-35) U/L C-Reactive Protein 4.00 H (0.00-0.80) mg/dL Total Protein 5.3 L (6.2-8.2) g/dL Albumin 2.6 L (3.8-4.9) g/dL Albumin/Globulin Ratio 0.96 L (1.60-3.17) Ratio Procalcitonin (0.02-0.50) ng/mL Microbiology - Last 24 Hours (Table) 01/09/24 16:44 Blood Culture - Preliminary Blood Assessment and Plan (1) Fever Current Visit: Yes Status: Acute Code(s): R50.9 - FEVER, UNSPECIFIED SNOMED Code(s): 698110041 Plan: 1patient presenting to the hospital with fever metastatic disease abdominal pain in this patient who did have mildly elevated liver enzymes with evidence of diabetes and the cognitive question of possibly related to the gallbladder disease abdominal source, patient did have some infiltrate on the right side u nderlying pneumonia not entirely excluded 2-patient did have elevated procalcitonin of 10.70 3-patient has been eval by surgery concern for possible acute on chronic cholecystitis and will be evaluated by her surgeon tomorrow for Now continue with Rocephin Zithromax and monitor clinical course closely Dictation was produced using [employer] dictation software. please excuse any grammatical, word or spelling errors. Time with Patient: Less than 30
[2024-01-12 06:48] LABS: Glucose,Whole Blood 64 mg/dL (70-110)
[2024-01-12] MEDS: DEXTROSE 50% SYRINGE 50 ML IVP PRN (06:57)
[2024-01-12 07:47] LABS: Glucose,Whole Blood 90 mg/dL (70-110)
[2024-01-12 08:35] LABS: Basophils # (A) 0.04 X 10*3/uL (0.00-0.10); Basophils % (A) 0.5 %; Eosinophils # (A) 0.34 X 10*3/uL (0.04-0.35); Eosinophils % (A) 4.2 %; HCT 28.2 % (37.2-46.3); HGB 8.9 g/dL (12.0-15.0); Lymphocytes # (A) 1.44 X 10*3/uL (0.90-5.00); Lymphocytes % (A) 17.8 %; MCH 26.7 pg (27.0-32.0); MCHC 31.6 g/dL (32.0-37.0); MCV 84.7 FL (80.0-97.0); Mean Platelet Volume 11.2 FL (9.5-12.2); Monocytes # (A) 0.74 X 10*3/uL (0.20-1.00); Monocytes % (A) 9.2 %; NRBC Per 100 WBC 0 X 10*3/uL (0.00-0.01); Neutrophils # (A) 5.46 X 10*3/uL (1.80-7.70); Neutrophils % (A) 67.7 %; Platelet Count 213 X 10*3/uL (140-440); RBC 3.33 X 10*6/uL (4.10-5.20); RDW 16.5 % (11.5-14.5); WBC 8.07 X 10*3/uL (4.50-10.00)
--- NOTE | 2024-01-12 08:38 | P.PN ---
Subjective Progress Note Date: 01/12/24 This is an 78-year-old female who presented to the emergency department with complaints of abdominal pain and fever. Patient had a low-grade fever on admission and the CT of her abdomen showed ascites. Chest x-ray on admission suggestive of right sided infiltrate. Abdominal ultrasound on admission showed debris within the gallbladder. Patient's fever has subsided and her abdominal pain has improved. Creatinine yesterday was 1.7. Patient has a history of chronic wounds due to her limited mobility. Nephrology, infectious disease and general surgeon are following. Objective - Vital Signs Vital signs: Vital Signs Temp 98.3 F 01/12/24 06:49 Pulse 80 01/12/24 06:49 Resp 17 01/12/24 06:49 BP 135/72 01/12/24 06:49 Pulse Ox 90 L 01/12/24 06:49 FiO2 Intake & Output 01/11/24 01/12/24 01/12/24 18:59 06:59 18:59 Output Total 325 650 Balance -325 -650 Output: Urine 325 650 Other: Voiding Method Indwelling Catheter - Constitutional General appearance: Present: cooperative, no acute distress - EENT Eyes: Present: PERRLA - Neck Neck: Present: normal ROM. Absent: lymphadenopathy, rigidity - Respiratory Respiratory: bilateral: CTA - Cardiovascular Heart sounds: normal: S1, S2 - Gastrointestinal General gastrointestinal: Present: soft. Absent: tenderness - Integumentary Integumentary: Present: normal turgor - Musculoskeletal Musculoskeletal: Present: generalized weakness - Psychiatric Psychiatric: Present: A&O x's 3 - Labs CBC & Chem 7: 01/10/24 03:41 01/11/24 02:33 Labs: Abnormal Lab Results - Last 24 Hours (Table) 01/11/24 01/11/24 01/11/24 Range/Units 02:33 02:33 02:33 Carbon Dioxide 19.9 L (21.6-31.8) mmol/L Anion Gap 12.10 H (4.00-12.00) mmol/L BUN 43.3 H (9.0-27.0) mg/dL Creatinine 1.7 H (0.6-1.5) mg/dL Est GFR (CKD-EPI) 30 L (>=60) BUN/Creatinine Ratio 25.47 H (12.00-20.00) Ratio Glucose 69 L (70-110) mg/dL POC Glucose (mg/dL) (70-110) mg/dL Hemoglobin A1c 7.6 H (<=6.0) % Calcium 8.3 L (8.7-10.3) mg/dL Total Bilirubin 0.2 L (0.3-1.2) mg/dL AST 39 H (13-35) U/L C-Reactive Protein 4.00 H (0.00-0.80) mg/dL Total Protein 5.3 L (6.2-8.2) g/dL Albumin 2.6 L (3.8-4.9) g/dL Albumin/Globulin Ratio 0.96 L (1.60-3.17) Ratio Procalcitonin 10.70 H (0.02-0.50) ng/mL 01/11/24 01/11/24 01/12/24 Range/Units 16:54 20:29 06:46 Carbon Dioxide (21.6-31.8) mmol/L Anion Gap (4.00-12.00) mmol/L BUN (9.0-27.0) mg/dL Creatinine (0.6-1.5) mg/dL Est GFR (CKD-EPI) (>=60) BUN/Creatinine Ratio (12.00-20.00) Ratio Glucose (70-110) mg/dL POC Glucose (mg/dL) 122 H 202 H 64 L (70-110) mg/dL Hemoglobin A1c (<=6.0) % Calcium (8.7-10.3) mg/dL Total Bilirubin (0.3-1.2) mg/dL AST (13-35) U/L C-Reactive Protein (0.00-0.80) mg/dL Total Protein (6.2-8.2) g/dL Albumin (3.8-4.9) g/dL Albumin/Globulin Ratio (1.60-3.17) Ratio Procalcitonin (0.02-0.50) ng/mL Microbiology - Last 24 Hours (Table) 01/09/24 16:44 Blood Culture - Preliminary Blood Assessment and Plan (1) Acute kidney injury Current Visit: Yes Status: Acute Code(s): N17.9 - ACUTE KIDNEY FAILURE, UNSPECIFIED SNOMED Code(s): 84191600 (2) Abdominal pain Current Visit: Yes Status: Acute Code(s): R10.9 - UNSPECIFIED ABDOMINAL PAIN SNOMED Code(s): 80306096 (3) Ascites Current Visit: Yes Status: Acute Code(s): R18.8 - OTHER ASCITES SNOMED Code(s): 493403989 (4) Atrial fibrillation Current Visit: No Status: Acute Code(s): I48.91 - UNSPECIFIED ATRIAL FIBRILLATION SNOMED Code(s): 27721952 (5) CAD (coronary artery disease) Current Visit: No Status: Acute Code(s): I25.10 - ATHSCL HEART DISEASE OF [place] CORONARY ARTERY W/O ANG PCTRS SNOMED Code(s): 71140613 (6) Chronic wound Current Visit: No Status: Acute Code(s): T14.8XXA - OTHER INJURY OF UNSPECIFIED BODY REGION, INITIAL ENCOUNTER SNOMED Code(s): 27048944812550 (7) Diabetes Current Visit: No Status: Acute Code(s): E11.9 - TYPE 2 DIABETES MELLITUS WITHOUT COMPLICATIONS SNOMED Code(s): 47910397 (8) History of atrial fibrillation Current Visit: No Status: Acute Code(s): Z86.79 - PERSONAL HISTORY OF OTHER DISEASES OF THE CIRCULATORY SYSTEM SNOMED Code(s): 305678301 Plan: Check CBC and CMP in the morning. Appreciate multiple consultants. Patient seen and evaluated by nurse practitioner, physician in agreement with plan.
[2024-01-12 09:20] LABS: ALT 20 U/L (8-44); AST 41 U/L (13-35); Albumin 2.6 g/dL (3.8-4.9); Alkaline Phosphatase 117 U/L (41-126); BUN/Creat Ratio 24.12 Ratio (12.00-20.00); Blood Urea Nitrogen 38.6 mg/dL (9.0-27.0); Calcium 8.3 mg/dL (8.7-10.3); Chloride 106 mmol/L (96-109); Globulin 2.6 g/dL (1.6-3.3); Glucose 84 mg/dL (70-110); Sodium 138 mmol/L (135-145); Total Bilirubin 0.3 mg/dL (0.3-1.2); Total Protein 5.2 g/dL (6.2-8.2)
--- NOTE | 2024-01-12 11:26 | P.PN ---
Subjective Progress Note Date: 01/12/24 CHIEF COMPLAINT: Abdominal pain HISTORY OF PRESENT ILLNESS: Patient admitted to the hospital with fever, altered mental status and abdominal pain. She is on antibiotics for possible pneumonia. CAT scan had shown ascites.. Gallbladder ultrasound had reported ascites and mild debris in the gallbladder. She has been followed by Dr. Baker outpatient for acute on chronic cholecystitis. She reports a tightness across the upper abdomen. She reports being off of her Lasix. She is scheduled to be evaluated for possible paracentesis today. Denies any alcohol use. Denies any prior history of paracentesis. Afebrile. WBC 8.07 Hgb 8.9 platelets 213 total bilirubin 0.3 AST 41 ALT 28 alk phos 117 PHYSICAL EXAM: VITAL SIGNS: Reviewed. GENERAL: Well-developed in no acute distress. ABDOMEN: Soft. Discomfort with palpation across the upper abdomen. Mildly distended. No guarding NEUROLOGIC: Alert and oriented. Cranial nerves II through XII grossly intact. ASSESSMENT: 1. Acute on chronic cholecystitis PLAN: -Further recommendations forthcoming per surgeon -Patient being evaluated by IR service for possible paracentesis -Continue antibiotics per ID service Physician Pattern Generator Operator note has been reviewed by physician. Signing provider agrees with the documented findings, assessment, and plan of care. Patient presents to the hospital complaining of abdominal bloating and upper abdominal discomfort. It has resolved since admission. CAT scan shows a distended gallbladder with abdominal ascites. Etiology for ascites unclear. Patient with history of probable choledocholithiasis in the past. Still with mild upper abdominal tenderness. She is now afebrile. White blood cell count is normal. Patient high risk for surgical intervention unless absolutely necessary. Discussed the option of diagnostic paracentesis. Will discuss further with nephrology. Continue antibiotics. Continue diet. Objective - Vital Signs Vital signs: Vital Signs Temp 98.3 F 01/12/24 06:49 Pulse 80 01/12/24 08:22 Resp 17 01/12/24 08:22 BP 135/72 01/12/24 06:49 Pulse Ox 90 L 01/12/24 06:49 FiO2 Intake & Output 01/11/24 01/12/24 01/12/24 18:59 06:59 18:59 Output Total 325 650 Balance -325 -650 Output: Urine 325 650 Other: Voiding Method Indwelling Catheter Indwelling Catheter - Labs CBC & Chem 7: 01/12/24 03:47 10/21/24 03:47 Labs: Abnormal Lab Results - Last 24 Hours (Table) 01/11/24 01/11/24 01/11/24 Range/Units 02:33 16:54 20:29 RBC (4.10-5.20) X 10*6/uL Hgb (12.0-15.0) g/dL Hct (37.2-46.3) % MCH (27.0-32.0) pg MCHC (32.0-37.0) g/dL RDW (11.5-14.5) % Immature Gran # (0.00-0.04) X 10*3/uL Carbon Dioxide 19.9 L (21.6-31.8) mmol/L Anion Gap 12.10 H (4.00-12.00) mmol/L BUN 43.3 H (9.0-27.0) mg/dL Creatinine 1.7 H (0.6-1.5) mg/dL Est GFR (CKD-EPI) 30 L (>=60) BUN/Creatinine Ratio 25.47 H (12.00-20.00) Ratio Glucose 69 L (70-110) mg/dL POC Glucose (mg/dL) 122 H 202 H (70-110) mg/dL Calcium 8.3 L (8.7-10.3) mg/dL Total Bilirubin 0.2 L (0.3-1.2) mg/dL AST 39 H (13-35) U/L C-Reactive Protein 4.00 H (0.00-0.80) mg/dL Total Protein 5.3 L (6.2-8.2) g/dL Albumin 2.6 L (3.8-4.9) g/dL Albumin/Globulin Ratio 0.96 L (1.60-3.17) Ratio 01/12/24 01/12/24 01/12/24 Range/Units 03:47 03:47 06:46 RBC 3.33 L (4.10-5.20) X 10*6/uL Hgb 8.9 L (12.0-15.0) g/dL Hct 28.2 L (37.2-46.3) % MCH 26.7 L (27.0-32.0) pg MCHC 31.6 L (32.0-37.0) g/dL RDW 16.5 H (11.5-14.5) % Immature Gran # 0.05 H (0.00-0.04) X 10*3/uL Carbon Dioxide 16.0 L (21.6-31.8) mmol/L Anion Gap 16.00 H (4.00-12.00) mmol/L BUN 38.6 H (9.0-27.0) mg/dL Creatinine 1.6 H (0.6-1.5) mg/dL Est GFR (CKD-EPI) 32 L (>=60) BUN/Creatinine Ratio 24.12 H (12.00-20.00) Ratio Glucose (70-110) mg/dL POC Glucose (mg/dL) 64 L (70-110) mg/dL Calcium 8.3 L (8.7-10.3) mg/dL Total Bilirubin (0.3-1.2) mg/dL AST 41 H (13-35) U/L C-Reactive Protein (0.00-0.80) mg/dL Total Protein 5.2 L (6.2-8.2) g/dL Albumin 2.6 L (3.8-4.9) g/dL Albumin/Globulin Ratio 1.00 L (1.60-3.17) Ratio Microbiology - Last 24 Hours (Table) 01/09/24 16:44 Blood Culture - Preliminary Blood
[2024-01-12 11:30] LABS: Glucose,Whole Blood 63 mg/dL (70-110)
--- NOTE | 2024-01-12 11:56 | P.PN ---
Subjective Patient is seen in follow-up for acute kidney injury on chronic kidney disease. Renal function stable. Denies chest pain or shortness of breath. Does complain of swelling in the lower extremities. Vital signs are stable. General: No acute distress. HEENT: Head exam is unremarkable. LUNGS: No audible rhonchi or wheezes. HEART: Rate and Rhythm are regular. ABDOMEN: Nontender. EXTREMITITES: 1+ edema. Objective - Vital Signs Vital signs: Vital Signs Temp 98.3 F 01/12/24 06:49 Pulse 80 01/12/24 08:22 Resp 17 01/12/24 08:22 BP 135/72 01/12/24 06:49 Pulse Ox 90 L 01/12/24 06:49 FiO2 Intake & Output 01/11/24 01/12/24 01/12/24 18:59 06:59 18:59 Output Total 325 650 Balance -325 -650 Output: Urine 325 650 Other: Voiding Method Indwelling Catheter Indwelling Catheter - Labs CBC & Chem 7: 01/12/24 03:47 01/12/24 03:47 Labs: Abnormal Lab Results - Last 24 Hours (Table) 01/11/24 01/11/24 01/11/24 Range/Units 02:33 16:54 20:29 RBC (4.10-5.20) X 10*6/uL Hgb (12.0-15.0) g/dL Hct (37.2-46.3) % MCH (27.0-32.0) pg MCHC (32.0-37.0) g/dL RDW (11.5-14.5) % Immature Gran # (0.00-0.04) X 10*3/uL Carbon Dioxide 19.9 L (21.6-31.8) mmol/L Anion Gap 12.10 H (4.00-12.00) mmol/L BUN 43.3 H (9.0-27.0) mg/dL Creatinine 1.7 H (0.6-1.5) mg/dL Est GFR (CKD-EPI) 30 L (>=60) BUN/Creatinine Ratio 25.47 H (12.00-20.00) Ratio Glucose 69 L (70-110) mg/dL POC Glucose (mg/dL) 122 H 202 H (70-110) mg/dL Calcium 8.3 L (8.7-10.3) mg/dL Total Bilirubin 0.2 L (0.3-1.2) mg/dL AST 39 H (13-35) U/L C-Reactive Protein 4.00 H (0.00-0.80) mg/dL Total Protein 5.3 L (6.2-8.2) g/dL Albumin 2.6 L (3.8-4.9) g/dL Albumin/Globulin Ratio 0.96 L (1.60-3.17) Ratio 01/12/24 01/12/24 01/12/24 Range/Units 03:47 03:47 06:46 RBC 3.33 L (4.10-5.20) X 10*6/uL Hgb 8.9 L (12.0-15.0) g/dL Hct 28.2 L (37.2-46.3) % MCH 26.7 L (27.0-32.0) pg MCHC 31.6 L (32.0-37.0) g/dL RDW 16.5 H (11.5-14.5) % Immature Gran # 0.05 H (0.00-0.04) X 10*3/uL Carbon Dioxide 16.0 L (21.6-31.8) mmol/L Anion Gap 16.00 H (4.00-12.00) mmol/L BUN 38.6 H (9.0-27.0) mg/dL Creatinine 1.6 H (0.6-1.5) mg/dL Est GFR (CKD-EPI) 32 L (>=60) BUN/Creatinine Ratio 24.12 H (12.00-20.00) Ratio Glucose (70-110) mg/dL POC Glucose (mg/dL) 64 L (70-110) mg/dL Calcium 8.3 L (8.7-10.3) mg/dL Total Bilirubin (0.3-1.2) mg/dL AST 41 H (13-35) U/L C-Reactive Protein (0.00-0.80) mg/dL Total Protein 5.2 L (6.2-8.2) g/dL Albumin 2.6 L (3.8-4.9) g/dL Albumin/Globulin Ratio 1.00 L (1.60-3.17) Ratio 01/12/24 Range/Units 11:28 RBC (4.10-5.20) X 10*6/uL Hgb (12.0-15.0) g/dL Hct (37.2-46.3) % MCH (27.0-32.0) pg MCHC (32.0-37.0) g/dL RDW (11.5-14.5) % Immature Gran # (0.00-0.04) X 10*3/uL Carbon Dioxide (21.6-31.8) mmol/L Anion Gap (4.00-12.00) mmol/L BUN (9.0-27.0) mg/dL Creatinine (0.6-1.5) mg/dL Est GFR (CKD-EPI) (>=60) BUN/Creatinine Ratio (12.00-20.00) Ratio Glucose (70-110) mg/dL POC Glucose (mg/dL) 63 L (70-110) mg/dL Calcium (8.7-10.3) mg/dL Total Bilirubin (0.3-1.2) mg/dL AST (13-35) U/L C-Reactive Protein (0.00-0.80) mg/dL Total Protein (6.2-8.2) g/dL Albumin (3.8-4.9) g/dL Albumin/Globulin Ratio (1.60-3.17) Ratio Microbiology - Last 24 Hours (Table) 01/09/24 16:44 Blood Culture - Preliminary Blood Assessment and Plan Plan: Assessment: 1. Acute kidney injury secondary to ATN secondary to hypotension. Diuretics have been held. No hydronephrosis noted on CAT scan. UA negative. Creatinine stable at 1.6. 2. Right lung pneumonia maintained on antibiotics. 3. Volume overload. 4. Chronic kidney disease stage IIIb with baseline creatinine 1.4-1.6 secondary to multiple acute kidney injury episodes and cardiorenal syndrome. 5. Anemia. Rule out iron deficiency. 6. Metabolic acidosis secondary to acute kidney injury and IV fluids. Plan: Hep-Lock IV fluids. Lasix 20 mg IV once today. Add oral bicarb. Encouraged oral intake. Avoid nephrotoxins. Follow-up iron studies.
[2024-01-12 12:00] LABS: Glucose,Whole Blood 98 mg/dL (70-110)
[2024-01-12] MEDS: FUROSEMIDE 10 MG/ML 2 ML VIAL IV ONE (12:11)
[2024-01-12] MEDS: SODIUM BICARBONATE TAB 650 MG TAB PO SCH (12:12)
--- NOTE | 2024-01-12 12:27 | P.CONS ---
History of Present Illness - Reason for Consult Consult date: 01/12/24 wound care - History of Present Illness This is an 78-year-old patient being seen on 4 S. for nonhealing ulcerations to the back buttocks and groin. Patient has open ulcerations that are limited to skin breakdown that she has had for a few months now. Previously patient utilize Triad with positive results. Review Of Systems: Constitutional: No fever, no chills, no night sweats. No weight change. No weakness, fatigue or lethargy. No daytime sleepiness. Integumentary:reports wounds, no lesions. No rash or pruritus. No unusual bruising. No change in hair or nails. Physical exam: General Appearance: Alert, cooperative, no distress, appears stated age. Skin: See HPI all other Skin color, texture, tugor normal, no rashes or lesions. Neurologic: Alert oriented x3 Assessment: 1. Nonhealing ulcerations limited skin breakdown back 2. Nonhealing ulceration limited to skin breakdown buttocks Plan: 1. Apply Triad cream to the site daily. Thank you for the consultation any questions please contact the wound care center DNP note has been reviewed and discussed with Dr. Lujan and the impression and plan of care has been directed as dictated. Past Medical History Past Medical History: Atrial Fibrillation, Coronary Artery Disease (CAD), CVA/TIA, Diabetes Mellitus, Deep Vein Thrombosis (DVT), Hypertension, Myocardial Infarction (NC), Osteoarthritis (OA) Additional Past Medical History / Comment(s): hx tia, hx stroke behind left eye., lt eye macular , states hospitalized with Covid April 2019 with life support and stage 3 kidney failure., hx of fall with hip fx and surgery 01/13/22 went to [facility] for Rehab. DVT during ., varicose veins, states painful sore left heel., hx of t.b. as a child with scarring on lungs. 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 clausterphobia. 1961 blood transfusion(during child ) pt stated had palpitations after 2nd unit given Past Psychological History: Anxiety Smoking Status: Never smoker Past Alcohol Use History: None Reported Past Drug Use History: None Reported - Past Family History Mother Family Medical History: Cancer Additional Family Medical History / Comment(s): lung cancer Father Family Medical History: Coronary Artery Disease (CAD) Additional Family Medical History / Comment(s): heart disease, kidney disese Medications and Allergies Home Medications Medication Instructions Recorded Confirmed Type Apixaban [Eliquis] 5 mg PO BID 08/13/20 01/09/24 History Sacubitril/Valsartan [Entresto 24 1 tab PO BID 01/12/22 01/09/24 History mg-26 mg Tablet] Omeprazole [PriLOSEC] 20 mg PO DAILY 03/05/22 01/09/24 History Bumetanide [BUMEX] 2 mg PO DAILY 09/09/22 01/09/24 History Ipratropium [place] [Atrovent Hfa] 2 puff INHALATION RT-QID 09/09/22 01/09/24 History ALPRAZolam [Xanax] 0.25 mg PO TID PRN 05/30/23 01/09/24 History Ammonium Lactate Lotion 1 applic TOPICAL BID PRN 05/30/23 01/09/24 History [Lac-Hydrin 12% Lotion] Aspirin 81 mg PO DAILY 05/30/23 01/09/24 History Atorvastatin [Lipitor] 20 mg PO DAILY 05/30/23 01/09/24 History Cholecalciferol [Vitamin D3 (25 25 mcg PO DAILY 05/30/23 01/09/24 History Mcg = 1000 Iu)] Escitalopram [Lexapro] 10 mg PO DAILY 05/30/23 01/09/24 History Furosemide [Lasix] 80 mg PO DAILY 05/30/23 01/09/24 History Insulin Glargine,Hum.rec.anlog 16 - 18 units SQ HS 05/30/23 01/09/24 History [Tourachelo Max Solostar] Insulin Glargine,Hum.rec.anlog 24 units SQ DAILY 05/30/23 01/09/24 History [Toujeo Max Solostar] Multivit-Min/FA/Lycopen/Lutein 1 tab PO DAILY 05/30/23 01/09/24 History [Centrum Silver Tablet] Potassium Chloride ER [K-Dur 20] 20 meq PO DAILY 05/30/23 01/09/24 History Albuterol Inhaler [Ventolin Hfa 2 puff INHALATION RT-QID PRN 01/09/24 01/09/24 History Inhaler] Ascorbic Acid [Vitamin C] 1,000 mg PO DAILY 01/09/24 01/09/24 History Vit C/E/Zn/Coppr/Lutein/Zeaxan 1 cap PO BID 01/09/24 01/09/24 History [Preservision Areds 2 Softgel] carvediloL [Coreg] 3.125 mg PO BID 01/09/24 01/09/24 History Allergies Allergy/AdvReac Type Severity Reaction Status Date / Time shellfish derived [Shellfish] Allergy Severe vomiting Verified 01/09/24 19:11 -very ill adhesive Allergy skin red Verified 01/09/24 19:11 and murguia, tears skin aluminum Allergy skin turns Verified 01/09/24 19:11 black, passes out Antihistamines - Allergy heart Verified 01/09/24 19:11 Ethylenediamine palpitations codeine Allergy migraines Verified 01/09/24 19:11 epinephrine Allergy heart Verified 01/09/24 19:11 palpitations fluticasone [From Flonase] Allergy Unknown Verified 01/09/24 19:11 hydrogen peroxide Allergy murguia and Verified 01/09/24 19:11 causes infection latex Allergy passes out Verified 01/09/24 19:11 nickel Allergy turns skin Verified 01/09/24 19:11 black and passes out procaine HCl [From Novocain] Allergy passed Verified 01/09/24 19:11 out- due to epinephrine in it. thiopental sodium Allergy needed cpr Verified 01/09/24 19:11 [From Pentothal] resusitation methocarbamol [From Robaxin] AdvReac Hallucinati Verified 01/09/24 19:11 ons zinc oxide AdvReac Rash/Hives Verified 01/10/24 15:11 surgical felicita Allergy Severe had to be Uncoded 01/09/24 19:11 removed 2 days post-op petroleum products AdvReac passes out Uncoded 01/09/24 19:11 or does not feel well. (diesel, oils) Physical Exam Vitals: Vital Signs Temp Pulse Resp BP Pulse Ox 01/12/24 08:22 80 17 01/12/24 06:49 98.3 F 80 17 135/72 90 L 01/12/24 01:23 98.2 F 74 18 137/69 92 L 01/11/24 19:40 20 01/11/24 19:17 98.6 F 84 20 177/84 94 L 01/11/24 14:41 98.7 F 71 17 151/69 95 Intake and Output 01/11/24 01/12/24 01/12/24 22:59 06:59 14:59 Output Total 325 650 Balance -325 -650 Output: Urine 325 650 Other: Voiding Method Indwelling Catheter Indwelling Catheter Results CBC & Chem 7: 01/12/24 03:47 01/12/24 03:47 Labs: Abnormal Lab Results - Last 24 Hours (Table) 01/11/24 01/11/24 01/11/24 Range/Units 02:33 16:54 20:29 RBC (4.10-5.20) X 10*6/uL Hgb (12.0-15.0) g/dL Hct (37.2-46.3) % MCH (27.0-32.0) pg MCHC (32.0-37.0) g/dL RDW (11.5-14.5) % Immature Gran # (0.00-0.04) X 10*3/uL Carbon Dioxide 19.9 L (21.6-31.8) mmol/L Anion Gap 12.10 H (4.00-12.00) mmol/L BUN 43.3 H (9.0-27.0) mg/dL Creatinine 1.7 H (0.6-1.5) mg/dL Est GFR (CKD-EPI) 30 L (>=60) BUN/Creatinine Ratio 25.47 H (12.00-20.00) Ratio Glucose 69 L (70-110) mg/dL POC Glucose (mg/dL) 122 H 202 H (70-110) mg/dL Calcium 8.3 L (8.7-10.3) mg/dL Total Bilirubin 0.2 L (0.3-1.2) mg/dL AST 39 H (13-35) U/L Total Protein 5.3 L (6.2-8.2) g/dL Albumin 2.6 L (3.8-4.9) g/dL Albumin/Globulin Ratio 0.96 L (1.60-3.17) Ratio 01/12/24 01/12/24 01/12/24 Range/Units 03:47 03:47 06:46 RBC 3.33 L (4.10-5.20) X 10*6/uL Hgb 8.9 L (12.0-15.0) g/dL Hct 28.2 L (37.2-46.3) % MCH 26.7 L (27.0-32.0) pg MCHC 31.6 L (32.0-37.0) g/dL RDW 16.5 H (11.5-14.5) % Immature Gran # 0.05 H (0.00-0.04) X 10*3/uL Carbon Dioxide 16.0 L (21.6-31.8) mmol/L Anion Gap 16.00 H (4.00-12.00) mmol/L BUN 38.6 H (9.0-27.0) mg/dL Creatinine 1.6 H (0.6-1.5) mg/dL Est GFR (CKD-EPI) 32 L (>=60) BUN/Creatinine Ratio 24.12 H (12.00-20.00) Ratio Glucose (70-110) mg/dL POC Glucose (mg/dL) 64 L (70-110) mg/dL Calcium 8.3 L (8.7-10.3) mg/dL Total Bilirubin (0.3-1.2) mg/dL AST 41 H (13-35) U/L Total Protein 5.2 L (6.2-8.2) g/dL Albumin 2.6 L (3.8-4.9) g/dL Albumin/Globulin Ratio 1.00 L (1.60-3.17) Ratio 01/12/24 Range/Units 11:28 RBC (4.10-5.20) X 10*6/uL Hgb (12.0-15.0) g/dL Hct (37.2-46.3) % MCH (27.0-32.0) pg MCHC (32.0-37.0) g/dL RDW (11.5-14.5) % Immature Gran # (0.00-0.04) X 10*3/uL Carbon Dioxide (21.6-31.8) mmol/L Anion Gap (4.00-12.00) mmol/L BUN (9.0-27.0) mg/dL Creatinine (0.6-1.5) mg/dL Est GFR (CKD-EPI) (>=60) BUN/Creatinine Ratio (12.00-20.00) Ratio Glucose (70-110) mg/dL POC Glucose (mg/dL) 63 L (70-110) mg/dL Calcium (8.7-10.3) mg/dL Total Bilirubin (0.3-1.2) mg/dL AST (13-35) U/L Total Protein (6.2-8.2) g/dL Albumin (3.8-4.9) g/dL Albumin/Globulin Ratio (1.60-3.17) Ratio Microbiology - Last 24 Hours (Table) 01/09/24 16:44 Blood Culture - Preliminary Blood Assessment and Plan (1) 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
--- NOTE | 2024-01-12 12:45 | P.PN ---
Subjective Progress Note Date: 01/12/24 Principal diagnosis: Reason for follow-up is fever Patient is a 78-year-old female with a past medical history significant for atrial fibrillation coronary disease diabetes mellitus hypertension [place] patient has been brought into the hospital for evaluation of mental status changes fever and confusion patient also have a low-grade fever elevated white count CT abdomen shows ascites with the chest x-ray suggestive of right sided infiltrate and abdominal ultrasound with the debris's within the gallbladder. On today's evaluation that is 01/12/2024, Patient is afebrile patient is currently on room air and denies having any shortness of breath, the patient denies any chest pain or cough, the patient denies any nausea vomiting some vague abdominal pain but no worsening and no diarrhea. Patient white count is 8.07, creatinine is 1.6 blood culture has been negative s o far Objective - Vital Signs Vital signs: Vital Signs Temp 98.3 F 01/12/24 06:49 Pulse 80 01/12/24 08:22 Resp 17 01/12/24 08:22 BP 135/72 01/12/24 06:49 Pulse Ox 90 L 01/12/24 06:49 FiO2 Intake & Output 01/11/24 01/12/24 01/12/24 18:59 06:59 18:59 Output Total 325 650 Balance -325 -650 Output: Urine 325 650 Other: Voiding Method Indwelling Catheter Indwelling Catheter - Exam Elderly female lying in bed no distress No tachypnea or accessory muscle respiration use Unlabored breathing Lower extremity with swelling but no redness or drainage - Labs CBC & Chem 7: 01/12/24 03:47 01/12/24 03:47 Labs: Abnormal Lab Results - Last 24 Hours (Table) 01/11/24 01/11/24 01/12/24 Range/Units 16:54 20:29 03:47 RBC 3.33 L (4.10-5.20) X 10*6/uL Hgb 8.9 L (12.0-15.0) g/dL Hct 28.2 L (37.2-46.3) % MCH 26.7 L (27.0-32.0) pg MCHC 31.6 L (32.0-37.0) g/dL RDW 16.5 H (11.5-14.5) % Immature Gran # 0.05 H (0.00-0.04) X 10*3/uL Carbon Dioxide (21.6-31.8) mmol/L Anion Gap (4.00-12.00) mmol/L BUN (9.0-27.0) mg/dL Creatinine (0.6-1.5) mg/dL Est GFR (CKD-EPI) (>=60) BUN/Creatinine Ratio (12.00-20.00) Ratio POC Glucose (mg/dL) 122 H 202 H (70-110) mg/dL Calcium (8.7-10.3) mg/dL AST (13-35) U/L Total Protein (6.2-8.2) g/dL Albumin (3.8-4.9) g/dL Albumin/Globulin Ratio (1.60-3.17) Ratio 01/12/24 01/12/24 01/12/24 Range/Units 03:47 06:46 11:28 RBC (4.10-5.20) X 10*6/uL Hgb (12.0-15.0) g/dL Hct (37.2-46.3) % MCH (27.0-32.0) pg MCHC (32.0-37.0) g/dL RDW (11.5-14.5) % Immature Gran # (0.00-0.04) X 10*3/uL Carbon Dioxide 16.0 L (21.6-31.8) mmol/L Anion Gap 16.00 H (4.00-12.00) mmol/L BUN 38.6 H (9.0-27.0) mg/dL Creatinine 1.6 H (0.6-1.5) mg/dL Est GFR (CKD-EPI) 32 L (>=60) BUN/Creatinine Ratio 24.12 H (12.00-20.00) Ratio POC Glucose (mg/dL) 64 L 63 L (70-110) mg/dL Calcium 8.3 L (8.7-10.3) mg/dL AST 41 H (13-35) U/L Total Protein 5.2 L (6.2-8.2) g/dL Albumin 2.6 L (3.8-4.9) g/dL Albumin/Globulin Ratio 1.00 L (1.60-3.17) Ratio Microbiology - Last 24 Hours (Table) 01/09/24 16:44 Blood Culture - Preliminary Blood Assessment and Plan (1) Fever Current Visit: Yes Status: Acute Code(s): R50.9 - FEVER, UNSPECIFIED SNOMED Code(s): 807672420 Plan: 1patient presenting to the hospital with fever metastatic disease abdominal pain in this patient who did have mildly elevated liver enzymes with evidence of diabetes and the cognitive question of possibly related to the gallbladder di sease abdominal source, patient did have some infiltrate on the right side underlying pneumonia not entirely excluded 2-patient did have elevated procalcitonin of 10.70 3-patient has been eval by surgery concern for possible acute on chronic cholecystitis and will be evaluated by her surgeon this afternoon 4-for now we will continue with Rocephin Zithromax and monitor clinical course closely Dictation was produced using [employer] dictation software. please excuse any grammatical, word or spelling errors. Time with Patient: Less than 30
[2024-01-12 13:00] LABS: % Iron Saturation 7.22 (12.00-45.00)
[2024-01-12 14:10] LABS: INR 1.1 (<1.2); Prothrombin Time 12.3 sec (10.0-12.5)
[2024-01-12 16:26] LABS: Glucose,Whole Blood 149 mg/dL (70-110)
[2024-01-12 20:59] LABS: Glucose,Whole Blood 181 mg/dL (70-110)
[2024-01-12] MEDS: HYDROPHILIC CREAM 180 GM TUBE TOPICAL SCH (21:27)
[2024-01-13 06:42] LABS: Glucose,Whole Blood 67 mg/dL (70-110)
--- NOTE | 2024-01-13 08:28 | P.PN ---
Subjective Progress Note Date: 01/13/24 This is an 78-year-old female who presented to the emergency department with complaints of abdominal pain and fever. Patient had a low-grade fever on admission and the CT of her abdomen showed ascites. Chest x-ray on admission suggestive of right sided infiltrate. Abdominal ultrasound on admission showed debris within the gallbladder. Patient's fever has subsided and her abdominal pain has improved. Creatinine yesterday was 1.7. Patient has a history of chronic wounds due to her limited mobility. Nephrology, infectious disease and general surgeon are following. 01/13/2024 Patient seen and evaluated laying in bed this morning. Plan is for paracentesis today. Yesterday patient was seen and evaluated by wound care guarding her chronic wounds. Objective - Vital Signs Vital signs: Vital Signs Temp 98.1 F 01/13/24 08:00 Pulse 79 01/13/24 08:00 Resp 14 01/13/24 08:00 BP 149/80 01/13/24 08:00 Pulse Ox 93 L 01/13/24 08:00 FiO2 Intake & Output 01/12/24 01/13/24 01/13/24 18:59 06:59 18:59 Output Total 600 320 Balance -600 -320 Output: Urine 600 320 Other: Voiding Method Indwelling Catheter Indwelling Catheter # Bowel Movements 0 - Constitutional General appearance: Present: cooperative, no acute distress - EENT Eyes: Present: PERRLA - Neck Neck: Present: normal ROM. Absent: lymphadenopathy, rigidity - Respiratory Respiratory: bilateral: CTA - Cardiovascular Heart sounds: normal: S1, S2 - Gastrointestinal General gastrointestinal: Present: soft. Absent: tenderness - Integumentary Integumentary: Present: normal turgor - Musculoskeletal Musculoskeletal: Present: generalized weakness - Psychiatric Psychiatric: Present: A&O x's 3 - Labs CBC & Chem 7: 01/12/24 03:47 01/12/24 03:47 Labs: Abnormal Lab Results - Last 24 Hours (Table) 01/10/24 01/12/24 01/12/24 Range/Units 03:41 03:47 03:47 RBC 3.33 L (4.10-5.20) X 10*6/uL Hgb 8.9 L (12.0-15.0) g/dL Hct 28.2 L (37.2-46.3) % MCH 26.7 L (27.0-32.0) pg MCHC 31.6 L (32.0-37.0) g/dL RDW 16.5 H (11.5-14.5) % Immature Gran # 0.05 H (0.00-0.04) X 10*3/uL Carbon Dioxide 16.0 L (21.6-31.8) mmol/L Anion Gap 16.00 H (4.00-12.00) mmol/L BUN 38.6 H (9.0-27.0) mg/dL Creatinine 1.6 H (0.6-1.5) mg/dL Est GFR (CKD-EPI) 32 L (>=60) BUN/Creatinine Ratio 24.12 H (12.00-20.00) Ratio POC Glucose (mg/dL) (70-110) mg/dL Calcium 8.3 L (8.7-10.3) mg/dL Iron 21 L (50-170) UG/DL % Saturation 7.22 L (12.00-45.00) AST 41 H (13-35) U/L Total Protein 5.2 L (6.2-8.2) g/dL Albumin 2.6 L (3.8-4.9) g/dL Albumin/Globulin Ratio 1.00 L (1.60-3.17) Ratio 01/12/24 01/12/24 01/12/24 Range/Units 11:28 16:24 20:57 RBC (4.10-5.20) X 10*6/uL Hgb (12.0-15.0) g/dL Hct (37.2-46.3) % MCH (27.0-32.0) pg MCHC (32.0-37.0) g/dL RDW (11.5-14.5) % Immature Gran # (0.00-0.04) X 10*3/uL Carbon Dioxide (21.6-31.8) mmol/L Anion Gap (4.00-12.00) mmol/L BUN (9.0-27.0) mg/dL Creatinine (0.6-1.5) mg/dL Est GFR (CKD-EPI) (>=60) BUN/Creatinine Ratio (12.00-20.00) Ratio POC Glucose (mg/dL) 63 L 149 H 181 H (70-110) mg/dL Calcium (8.7-10.3) mg/dL Iron (50-170) UG/DL % Saturation (12.00-45.00) AST (13-35) U/L Total Protein (6.2-8.2) g/dL Albumin (3.8-4.9) g/dL Albumin/Globulin Ratio (1.60-3.17) Ratio 01/13/24 Range/Units 06:39 RBC (4.10-5.20) X 10*6/uL Hgb (12.0-15.0) g/dL Hct (37.2-46.3) % MCH (27.0-32.0) pg MCHC (32.0-37.0) g/dL RDW (11.5-14.5) % Immature Gran # (0.00-0.04) X 10*3/uL Carbon Dioxide (21.6-31.8) mmol/L Anion Gap (4.00-12.00) mmol/L BUN (9.0-27.0) mg/dL Creatinine (0.6-1.5) mg/dL Est GFR (CKD-EPI) (>=60) BUN/Creatinine Ratio (12.00-20.00) Ratio POC Glucose (mg/dL) 67 L (70-110) mg/dL Calcium (8.7-10.3) mg/dL Iron (50-170) UG/DL % Saturation (12.00-45.00) AST (13-35) U/L Total Protein (6.2-8.2) g/dL Albumin (3.8-4.9) g/dL Albumin/Globulin Ratio (1.60-3.17) Ratio Microbiology - Last 24 Hours (Table) 01/09/24 16:44 Blood Culture - Preliminary Blood Assessment and Plan (1) Acute kidney injury Current Visit: Yes Status: Acute Code(s): N17.9 - ACUTE KIDNEY FAILURE, UNSPECIFIED SNOMED Code(s): 16622794 (2) Abdominal pain Current Visit: Yes Status: Acute Code(s): R10.9 - UNSPECIFIED ABDOMINAL PAIN SNOMED Code(s): 07822429 (3) Ascites Current Visit: Yes Status: Acute Code(s): R18.8 - OTHER ASCITES SNOMED Code(s): 383677115 (4) Atrial fibrillation Current Visit: No Status: Acute Code(s): I48.91 - UNSPECIFIED ATRIAL FIBRILLATION SNOMED Code(s): 46674427 (5) CAD (coronary artery disease) Current Visit: No Status: Acute Code(s): I25.10 - ATHSCL HEART DISEASE OF [place] CORONARY ARTERY W/O ANG PCTRS SNOMED Code(s): 34275753 (6) Chronic wound Current Visit: No Status: Acute Code(s): T14.8XXA - OTHER INJURY OF UNSPECIFIED BODY REGION, INITIAL ENCOUNTER SNOMED Code(s): 41191947290998 (7) Diabetes Current Visit: No Status: Acute Code(s): E11.9 - TYPE 2 DIABETES MELLITUS WITHOUT COMPLICATIONS SNOMED Code(s): 95810940 (8) History of atrial fibrillation Current Visit: No Status: Acute Code(s): Z86.79 - PERSONAL HISTORY OF OTHER DISEASES OF THE CIRCULATORY SYSTEM SNOMED Code(s): 793033602 (9) 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 Await paracentesis Patient seen and evaluated by nurse practitioner, physician in agreement with plan.
[2024-01-13 08:52] LABS: HCT 29.2 % (37.2-46.3); HGB 8.8 g/dL (12.0-15.0); MCH 26.6 pg (27.0-32.0); MCHC 30.1 g/dL (32.0-37.0); MCV 88.2 FL (80.0-97.0); Mean Platelet Volume 11.2 FL (9.5-12.2); NRBC Per 100 WBC 0 X 10*3/uL (0.00-0.01); Platelet Count 199 X 10*3/uL (140-440); RBC 3.31 X 10*6/uL (4.10-5.20); RDW 16.5 % (11.5-14.5); WBC 7.16 X 10*3/uL (4.50-10.00)
[2024-01-13] MEDS: ALPRAZolam 0.25 MG TAB PO PRN (09:18)
[2024-01-13 10:18] LABS: ALT 20 U/L (8-44); AST 41 U/L (13-35); Albumin 2.7 g/dL (3.8-4.9); Alkaline Phosphatase 123 U/L (41-126); Blood Urea Nitrogen 32.5 mg/dL (9.0-27.0); Calcium 8.4 mg/dL (8.7-10.3); Carbon Dioxide 19.8 mmol/L (21.6-31.8); Chloride 106 mmol/L (96-109); Globulin 2.7 g/dL (1.6-3.3); Glucose 105 mg/dL (70-110); Magnesium 1.8 mg/dL (1.5-2.4); Potassium 4.1 mmol/L (3.5-5.5); Sodium 138 mmol/L (135-145); Total Bilirubin 0.3 mg/dL (0.3-1.2); Total Protein 5.4 g/dL (6.2-8.2)
--- NOTE | 2024-01-13 10:59 | P.PN ---
Subjective Patient is seen in follow-up for acute kidney injury on chronic kidney disease. Renal function better. Denies chest pain or shortness of breath. Status post IV Lasix yesterday. Paracentesis today. Vital signs are stable. General: No acute distress. HEENT: Head exam is unremarkable. LUNGS: No audible rhonchi or wheezes. HEART: Rate and Rhythm are regular. ABDOMEN: Nontender. EXTREMITITES: 1+ edema. Objective - Vital Signs Vital signs: Vital Signs Temp 98.1 F 01/13/24 08:00 Pulse 70 01/13/24 10:39 Resp 16 01/13/24 10:39 BP 161/74 01/13/24 10:39 Pulse Ox 91 L 01/13/24 10:39 FiO2 Intake & Output 01/12/24 01/13/24 01/13/24 18:59 06:59 18:59 Output Total 600 320 Balance -600 -320 Output: Urine 600 320 Other: Voiding Method Indwelling Catheter Indwelling Catheter Indwelling Catheter # Bowel Movements 0 - Labs CBC & Chem 7: 01/13/24 02:24 01/13/24 02:24 Labs: Abnormal Lab Results - Last 24 Hours (Table) 01/10/24 01/12/24 01/12/24 Range/Units 03:41 11:28 16:24 RBC (4.10-5.20) X 10*6/uL Hgb (12.0-15.0) g/dL Hct (37.2-46.3) % MCH (27.0-32.0) pg MCHC (32.0-37.0) g/dL RDW (11.5-14.5) % Carbon Dioxide (21.6-31.8) mmol/L Anion Gap (4.00-12.00) mmol/L BUN (9.0-27.0) mg/dL Est GFR (CKD-EPI) (>=60) BUN/Creatinine Ratio (12.00-20.00) Ratio POC Glucose (mg/dL) 63 L 149 H (70-110) mg/dL Calcium (8.7-10.3) mg/dL Iron 21 L (50-170) UG/DL % Saturation 7.22 L (12.00-45.00) AST (13-35) U/L Total Protein (6.2-8.2) g/dL Albumin (3.8-4.9) g/dL Albumin/Globulin Ratio (1.60-3.17) Ratio 01/12/24 01/13/24 01/13/24 Range/Units 20:57 02:24 02:24 RBC 3.31 L (4.10-5.20) X 10*6/uL Hgb 8.8 L (12.0-15.0) g/dL Hct 29.2 L (37.2-46.3) % MCH 26.6 L (27.0-32.0) pg MCHC 30.1 L (32.0-37.0) g/dL RDW 16.5 H (11.5-14.5) % Carbon Dioxide 19.8 L (21.6-31.8) mmol/L Anion Gap 12.20 H (4.00-12.00) mmol/L BUN 32.5 H (9.0-27.0) mg/dL Est GFR (CKD-EPI) 42 L (>=60) BUN/Creatinine Ratio 25.00 H (12.00-20.00) Ratio POC Glucose (mg/dL) 181 H (70-110) mg/dL Calcium 8.4 L (8.7-10.3) mg/dL Iron (50-170) UG/DL % Saturation (12.00-45.00) AST 41 H (13-35) U/L Total Protein 5.4 L (6.2-8.2) g/dL Albumin 2.7 L (3.8-4.9) g/dL Albumin/Globulin Ratio 1.00 L (1.60-3.17) Ratio 01/13/24 Range/Units 06:39 RBC (4.10-5.20) X 10*6/uL Hgb (12.0-15.0) g/dL Hct (37.2-46.3) % MCH (27.0-32.0) pg MCHC (32.0-37.0) g/dL RDW (11.5-14.5) % Carbon Dioxide (21.6-31.8) mmol/L Anion Gap (4.00-12.00) mmol/L BUN (9.0-27.0) mg/dL Est GFR (CKD-EPI) (>=60) BUN/Creatinine Ratio (12.00-20.00) Ratio POC Glucose (mg/dL) 67 L (70-110) mg/dL Calcium (8.7-10.3) mg/dL Iron (50-170) UG/DL % Saturation (12.00-45.00) AST (13-35) U/L Total Protein (6.2-8.2) g/dL Albumin (3.8-4.9) g/dL Albumin/Globulin Ratio (1.60-3.17) Ratio Microbiology - Last 24 Hours (Table) 01/09/24 16:44 Blood Culture - Preliminary Blood Assessment and Plan Plan: Assessment: 1. Acute kidney injury secondary to ATN secondary to hypotension. Diuretics have been held. No hydronephrosis noted on CAT scan. UA negative. Creatinine improved to 1.3 today. 2. Right lung pneumonia maintained on antibiotics. 3. Volume overload. 4. Chronic kidney disease stage IIIb with baseline creatinine 1.4-1.6 secondary to multiple acute kidney injury episodes and cardiorenal syndrome. 5. Anemia. Iron deficiency noted. 6. Metabolic acidosis secondary to acute kidney injury and IV fluids. On oral bicarb. Better. Plan: Add IV Lasix 40 mg once daily. Paracentesis today. Will give 25 g of albumin if more than 3 L drained. Encouraged oral intake. Avoid nephrotoxins. Add IV iron.
[2024-01-13 11:54] LABS: Glucose,Whole Blood 83 mg/dL (70-110)
[2024-01-13] MEDS: SODIUM FERRIC GLUCONAT-SUCROSE 125 MG in SODIUM CHLORIDE 0.9% 100 ML IVPB SCH (12:30)
[2024-01-13] MEDS: FUROSEMIDE 10 MG/ML 4 ML VIAL IV SCH (12:30)
--- NOTE | 2024-01-13 13:21 | P.PN ---
Subjective Progress Note Date: 01/13/24 CHIEF COMPLAINT: Abdominal pain HISTORY OF PRESENT ILLNESS: Patient admitted to the hospital with fever, altered mental status and abdominal pain. She is on antibiotics for possible pneumonia. CAT scan had shown ascites.. Gallbladder ultrasound had reported ascites and mild debris in the gallbladder. Patient continues to report tightness across her upper abdomen. She is scheduled for paracentesis this morning. She denies any nausea or vomiting. Afebrile. WBC 7.16 Hgb 8.8 platelets 199 total bili 0.3 AST 41 ALT 20 alk phos 123 PHYSICAL EXAM: VITAL SIGNS: Reviewed. GENERAL: Well-developed in no acute distress. ABDOMEN: Soft. Discomfort with palpation across the upper abdomen. Mildly d istended. No guarding NEUROLOGIC: Alert and oriented. Cranial nerves II through XII grossly intact. ASSESSMENT: 1. Acute on chronic cholecystitis 2. Probable choledocholithiasis in the past PLAN: -Patient scheduled for paracentesis today -Patient high risk for surgical intervention unless absolutely necessary -Continue antibiotics -Continue to monitor Physician Rougher Helper note has been reviewed by physician. Signing provider agrees with the documented findings, assessment, and plan of care. I have personally seen and examined the patient, reviewed the ENTERPRISE SOLUTIONS ARCHITECT /PAs history, exam and MDM and agree with the assessment and plan as written. Based on total visit time, I have performed more than 50% of the visit. As above: Patient underwent her paracentesis. Results of that are pending howev er patient states she feels better with less abdominal pressure. Denies pain. Tolerating diet. Labs noted. Await diagnostics from paracentesis fluid. Will follow. Objective - Vital Signs Vital signs: Vital Signs Temp 98.1 F 01/13/24 08:00 Pulse 72 01/13/24 11:05 Resp 16 01/13/24 11:05 BP 146/86 01/13/24 11:05 Pulse Ox 91 L 01/13/24 11:05 FiO2 Intake & Output 01/12/24 01/13/24 01/13/24 18:59 06:59 18:59 Output Total 600 320 Balance -600 -320 Output: Urine 600 320 Other: Voiding Method Indwelling Catheter Indwelling Catheter Indwelling Catheter # Bowel Movements 0 - Labs CBC & Chem 7: 01/13/24 02:24 01/13/24 02:24 Labs: Abnormal Lab Results - Last 24 Hours (Table) 01/12/24 01/12/24 01/13/24 Range/Units 16:24 20:57 02:24 RBC 3.31 L (4.10-5.20) X 10*6/uL Hgb 8.8 L (12.0-15.0) g/dL Hct 29.2 L (37.2-46.3) % MCH 26.6 L (27.0-32.0) pg MCHC 30.1 L (32.0-37.0) g/dL RDW 16.5 H (11.5-14.5) % Carbon Dioxide (21.6-31.8) mmol/L Anion Gap (4.00-12.00) mmol/L BUN (9.0-27.0) mg/dL Est GFR (CKD-EPI) (>=60) BUN/Creatinine Ratio (12.00-20.00) Ratio POC Glucose (mg/dL) 149 H 181 H (70-110) mg/dL Calcium (8.7-10.3) mg/dL AST (13-35) U/L Total Protein (6.2-8.2) g/dL Albumin (3.8-4.9) g/dL Albumin/Globulin Ratio (1.60-3.17) Ratio 01/13/24 01/13/24 Range/Units 02:24 06:39 RBC (4.10-5.20) X 10*6/uL Hgb (12.0-15.0) g/dL Hct (37.2-46.3) % MCH (27.0-32.0) pg MCHC (32.0-37.0) g/dL RDW (11.5-14.5) % Carbon Dioxide 19.8 L (21.6-31.8) mmol/L Anion Gap 12.20 H (4.00-12.00) mmol/L BUN 32.5 H (9.0-27.0) mg/dL Est GFR (CKD-EPI) 42 L (>=60) BUN/Creatinine Ratio 25.00 H (12.00-20.00) Ratio POC Glucose (mg/dL) 67 L (70-110) mg/dL Calcium 8.4 L (8.7-10.3) mg/dL AST 41 H (13-35) U/L Total Protein 5.4 L (6.2-8.2) g/dL Albumin 2.7 L (3.8-4.9) g/dL Albumin/Globulin Ratio 1.00 L (1.60-3.17) Ratio Microbiology - Last 24 Hours (Table) 01/09/24 16:44 Blood Culture - Preliminary Blood
--- NOTE | 2024-01-13 14:46 | CDI ---
Documentation Clarification Form Date: 01/13/2024 02:13:38 PM From: Lesvia Cabrera RN, CCDS Phone: [phone] Admit Date: 01/09/2024 07:48:00 PM Patient Name: Bel Seth I Visit Number: [id number] Discharge Date: ATTENTION: The Clinical Documentation Specialists (CDI) and [facility] Coding Staff appreciate your assistance in clarifying documentation. Please respond to the clarification below the line at the bottom and electronically sign. The CDI & [facility] Coding staff will review the response and follow-up if needed. Please note: Queries are made part of the Legal Health Record. If you have any questions, please contact the author of this message via ITS. Doctor/Provider: Luis Shirley There is documentation of acute on chronic cholecystitis in the Surgical consult and ongoing progress notes Additional clarification is requested. History/Risk Factors: Atrial Fibrillation, CAD, CVA/TIA, Diabetes Mellitus, DVT Clinical Indicators: 78-year-old female to the ER for altered mental status fever confusion and severe abdominal pain, bloating. VS 157/95 20 100.9 98% 3/L NC WBC 10.0, HGB 11.3, BUN 43 C 1.23 01/08 CT abdomen/pelvis: Ascites. 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 Mild debris within the gallbladder 01/09 Surgical consult: Acute on chronic cholecystitis will observe. 01/11 Surgery progress note. She has been followed by Dr. Baker outpatient for acute on chronic cholecystitis. Evaluated by IF service for possible paracentesis. Continue antibiotics per ID service. Treatment: Rocephin 2 GM IVPB Q 24 HRS Azithromycin 500MG IVPB Daily X 3 bags 01/09 .9 NS 1,000 MLS Bolus Can you please clarify if you agree with the following diagnosis? [x ] Acute on chronic cholecystitis [ ] Other, please specify [ ] Unable to determine (Template Last Revised: May 2020) MTDD
--- NOTE | 2024-01-13 15:54 | US ---
EXAMINATION TYPE: US paracentesis abd w/image DATE OF EXAM: 01/13/2024 CLINICAL HISTORY: 78-year-old female with ascites, referred for paracentesis for fluid analysis. The procedure was discussed with the patient. The risks, complications, benefits, and alternatives we re discussed and any questions were answered. Informed consent was obtained. The patient was placed s upine on the ultrasound table and prepped and draped in the usual sterile fashion. All elements of maximal barrier technique were utilized. Ultrasound was utilized to determine the precise skin entry site along the right lower quadrant. A 5 Cuban One-Step catheter and trocar technique was utilized to access the ascites collection under direct ultrasound guidance. Initial sample of 110 mL clear straw-colored fluid into syringes were obtained, labeled, and sent for laboratory analysis. Subsequently, approximately 3.2 liters of clear, straw-colored fluid was removed. Catheter was removed, hemostasis obtained, and a dressing placed. The patient was stable throughout the procedure and remained stable upon discharge back to inpatient room. IMPRESSION: Successful diagnostic and therapeutic paracentesis under ultrasound guidance. 3.2 L of fluid removed . Laboratory analysis pending. [facility], , 01/13/2024 3:52 PM
[2024-01-13 16:10] LABS: Glucose,Whole Blood 192 mg/dL (70-110)
[2024-01-13 20:51] LABS: Glucose,Whole Blood 186 mg/dL (70-110)
--- NOTE | 2024-01-13 22:36 | P.PN ---
Subjective Progress Note Date: 01/13/24 Principal diagnosis: Reason for follow-up is fever Patient is a 78-year-old female with a past medical history significant for atrial fibrillation coronary disease diabetes mellitus hypertension [place] patient has been brought into the hospital for evaluation of mental status changes fever and confusion patient also have a low-grade fever elevated white count CT abdomen shows ascites with the chest x-ray suggestive of right sided infiltrate and abdominal ultrasound with the debris's within the gallbladder. On today's evaluation that is 01/13/2024, patient has been afebrile, patient is breathing comfortably and is currently on room air, patient denies having any significant cough no chest pain, patient denies nausea vomiting or diarrhea and no abdominal pain, mention feeling better no new symptoms. Patient white count is 7.16, creatinine is 1.3 blood cultures are pending Objective - Vital Signs Vital signs: Vital Signs Temp 98.6 F 01/13/24 13:00 Pulse 74 01/13/24 13:00 Resp 14 01/13/24 13:00 BP 142/82 01/13/24 13:00 Pulse Ox 95 01/13/24 13:00 FiO2 Intake & Output 01/12/24 01/13/24 01/13/24 18:59 06:59 18:59 Output Total 600 320 Balance -600 -320 Output: Urine 600 320 Other: Voiding Method Indwelling Catheter Indwelling Catheter Indwelling Catheter # Bowel Movements 0 - Exam Elderly female lying in bed no distress No tachypnea or accessory muscle respiration use Unlabored breathing Lower extremity with swelling but no redness or drainage - Labs CBC & Chem 7: 01/13/24 02:24 01/13/24 02:24 Labs: Abnormal Lab Results - Last 24 Hours (Table) 01/12/24 01/12/24 01/13/24 Range/Units 16:24 20:57 02:24 RBC 3.31 L (4.10-5.20) X 10*6/uL Hgb 8.8 L (12.0-15.0) g/dL Hct 29.2 L (37.2-46.3) % MCH 26.6 L (27.0-32.0) pg MCHC 30.1 L (32.0-37.0) g/dL RDW 16.5 H (11.5-14.5) % Carbon Dioxide (21.6-31.8) mmol/L Anion Gap (4.00-12.00) mmol/L BUN (9.0-27.0) mg/dL Est GFR (CKD-EPI) (>=60) BUN/Creatinine Ratio (12.00-20.00) Ratio POC Glucose (mg/dL) 149 H 181 H (70-110) mg/dL Calcium (8.7-10.3) mg/dL AST (13-35) U/L Total Protein (6.2-8.2) g/dL Albumin (3.8-4.9) g/dL Albumin/Globulin Ratio (1.60-3.17) Ratio 01/13/24 01/13/24 Range/Units 02:24 06:39 RBC (4.10-5.20) X 10*6/uL Hgb (12.0-15.0) g/dL Hct (37.2-46.3) % MCH (27.0-32.0) pg MCHC (32.0-37.0) g/dL RDW (11.5-14.5) % Carbon Dioxide 19.8 L (21.6-31.8) mmol/L Anion Gap 12.20 H (4.00-12.00) mmol/L BUN 32.5 H (9.0-27.0) mg/dL Est GFR (CKD-EPI) 42 L (>=60) BUN/Creatinine Ratio 25.00 H (12.00-20.00) Ratio POC Glucose (mg/dL) 67 L (70-110) mg/dL Calcium 8.4 L (8.7-10.3) mg/dL AST 41 H (13-35) U/L Total Protein 5.4 L (6.2-8.2) g/dL Albumin 2.7 L (3.8-4.9) g/dL Albumin/Globulin Ratio 1.00 L (1.60-3.17) Ratio Microbiology - Last 24 Hours (Table) 01/09/24 16:44 Blood Culture - Preliminary Blood Assessment and Plan (1) Fever Current Visit: Yes Status: Acute Code(s): R50.9 - FEVER, UNSPECIFIED SNOMED Code(s): 660437863 Plan: 1patient presenting to the hospital with fever metastatic disease abdominal pain in this patient who did have mildly elevated liver enzymes with evidence of diabetes and the cognitive question of possibly related to the gallbladder disease abdominal source, patient did have some infiltrate on the right side underlying pneumonia not entirely excluded 2-patient did have elevated procalcitonin of 10.70 3-patient has been eval by surgery concern for possible acute on chronic cholecystitis, patient is status post paracentesis complete results will be followed 4-for now we will continue with Rocephin while waiting for the workup to be completed Dictation was produced using [employer] dictation software. please excuse any grammatical, word or spelling errors. Time with Patient: Less than 30
[2024-01-14 02:21] LABS: Amylase, Fluid Source Paracentesis Fluid; Amylase,Body Fluid 16 U/L; LDH, Body Fluid Source Paracentesis Fluid; T. Protein, Body Fluid Source Paracentesis Fluid; Total Protein, Body Fluid 1190 mg/dL
[2024-01-14 03:54] LABS: Appearance,BF Slightly Hazy (Clear)
[2024-01-14 06:40] LABS: Glucose,Whole Blood 82 mg/dL (70-110)
--- NOTE | 2024-01-14 08:34 | P.PN ---
Subjective Principal diagnosis: Status post paracentesis The patient is an 78 yo female admitted for abdominal pain. Acute on chronic choecystitis. Pressure wound on low back. Being treated for pneumonia. Clinical seems very stable. Bedridden. No SOB or voiding difficulty Objective - Vital Signs Vital signs: Vital Signs Temp 98.2 F 01/14/24 07:46 Pulse 72 01/14/24 07:46 Resp 14 01/14/24 07:46 BP 121/63 01/14/24 07:46 Pulse Ox 98 01/14/24 07:46 FiO2 Intake & Output 01/13/24 01/14/24 01/14/24 18:59 06:59 18:59 Output Total 1000 800 Balance -1000 -800 Output: Urine 1000 800 Other: Voiding Method Indwelling Catheter Indwelling Catheter - Constitutional General appearance: Present: cooperative, no acute distress. Absent: disheveled - EENT Eyes: Absent: abnormal pupil - Neck Neck: Absent: lymphadenopathy - Respiratory Respiratory: bilateral: diminished - Cardiovascular Rhythm: regular Heart sounds: normal: S1 Abnormal Heart Sounds: Absent: S3 Gallop - Gastrointestinal General gastrointestinal: Present: soft - Neurologic Neurologic: Absent: focal deficits - Musculoskeletal Musculoskeletal: Present: generalized weakness - Labs CBC & Chem 7: 01/13/24 02:24 01/13/24 02:24 Labs: Abnormal Lab Results - Last 24 Hours (Table) 01/13/24 01/13/24 01/13/24 Range/Units 02:24 02:24 10:35 RBC 3.31 L (4.10-5.20) X 10*6/uL Hgb 8.8 L (12.0-15.0) g/dL Hct 29.2 L (37.2-46.3) % MCH 26.6 L (27.0-32.0) pg MCHC 30.1 L (32.0-37.0) g/dL RDW 16.5 H (11.5-14.5) % Carbon Dioxide 19.8 L (21.6-31.8) mmol/L Anion Gap 12.20 H (4.00-12.00) mmol/L BUN 32.5 H (9.0-27.0) mg/dL Est GFR (CKD-EPI) 42 L (>=60) BUN/Creatinine Ratio 25.00 H (12.00-20.00) Ratio POC Glucose (mg/dL) (70-110) mg/dL Calcium 8.4 L (8.7-10.3) mg/dL AST 41 H (13-35) U/L Total Protein 5.4 L (6.2-8.2) g/dL Albumin 2.7 L (3.8-4.9) g/dL Albumin/Globulin Ratio 1.00 L (1.60-3.17) Ratio Fluid Appearance Slightly Hazy A (Clear) 01/13/24 01/13/24 Range/Units 16:09 20:48 RBC (4.10-5.20) X 10*6/uL Hgb (12.0-15.0) g/dL Hct (37.2-46.3) % MCH (27.0-32.0) pg MCHC (32.0-37.0) g/dL RDW (11.5-14.5) % Carbon Dioxide (21.6-31.8) mmol/L Anion Gap (4.00-12.00) mmol/L BUN (9.0-27.0) mg/dL Est GFR (CKD-EPI) (>=60) BUN/Creatinine Ratio (12.00-20.00) Ratio POC Glucose (mg/dL) 192 H 186 H (70-110) mg/dL Calcium (8.7-10.3) mg/dL AST (13-35) U/L Total Protein (6.2-8.2) g/dL Albumin (3.8-4.9) g/dL Albumin/Globulin Ratio (1.60-3.17) Ratio Fluid Appearance (Clear) Microbiology - Last 24 Hours (Table) 01/09/24 16:44 Blood Culture - Preliminary Blood Assessment and Plan (1) Acute and chronic cholecystitis Current Visit: Yes Status: Acute Code(s): K81.2 - ACUTE CHOLECYSTITIS WITH CHRONIC CHOLECYSTITIS SNOMED Code(s): 409584986 (2) Acute kidney injury Current Visit: Yes Status: Acute Code(s): N17.9 - ACUTE KIDNEY FAILURE, UNSPECIFIED SNOMED Code(s): 66680949 (3) Ascites Current Visit: Yes Status: Acute Code(s): R18.8 - OTHER ASCITES SNOMED Code(s): 109794620 (4) 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 Check CBC and CMP in AM Status post paracentesis. Initial evaulation is nominal. Await cytology etc I will continue to follow. Seems clinically and hemodynamically stable.
[2024-01-14 08:48] LABS: HCT 29.6 % (37.2-46.3); HGB 9.2 g/dL (12.0-15.0); MCH 26.7 pg (27.0-32.0); MCHC 31.1 g/dL (32.0-37.0); MCV 85.8 FL (80.0-97.0); Mean Platelet Volume 10.9 FL (9.5-12.2); NRBC Per 100 WBC 0 X 10*3/uL (0.00-0.01); Platelet Count 225 X 10*3/uL (140-440); RBC 3.45 X 10*6/uL (4.10-5.20); RDW 16.5 % (11.5-14.5); WBC 7.16 X 10*3/uL (4.50-10.00)
[2024-01-14 08:50] LABS: ALT 19 U/L (8-44); AST 35 U/L (13-35); Albumin 2.7 g/dL (3.8-4.9); Alkaline Phosphatase 118 U/L (41-126); BUN/Creat Ratio 22.08 Ratio (12.00-20.00); Blood Urea Nitrogen 28.7 mg/dL (9.0-27.0); Calcium 8.5 mg/dL (8.7-10.3); Carbon Dioxide 22.1 mmol/L (21.6-31.8); Chloride 106 mmol/L (96-109); Globulin 2.7 g/dL (1.6-3.3); Glucose 113 mg/dL (70-110); Magnesium 2.1 mg/dL (1.5-2.4); Potassium 3.8 mmol/L (3.5-5.5); Sodium 139 mmol/L (135-145); Total Bilirubin 0.2 mg/dL (0.3-1.2); Total Protein 5.4 g/dL (6.2-8.2)
--- NOTE | 2024-01-14 10:21 | P.PN ---
Subjective Patient is seen in follow-up for acute kidney injury on chronic kidney disease. Renal function stable. Nonoliguric. Denies chest pain or shortness of breath. On IV Lasix. Status post paracentesis January 13, 2024 with 3.2 L drained. Vital signs are stable. General: No acute distress. HEENT: Head exam is unremarkable. LUNGS: No audible rhonchi or wheezes. HEART: Rate and Rhythm are regular. ABDOMEN: Nontender. EXTREMITITES: 1+ edema. Objective - Vital Signs Vital signs: Vital Signs Temp 98.2 F 01/14/24 07:46 Pulse 72 01/14/24 07:46 Resp 14 01/14/24 07:46 BP 121/63 01/14/24 07:46 Pulse Ox 98 01/14/24 07:46 FiO2 Intake & Output 01/13/24 01/14/24 01/14/24 18:59 06:59 18:59 Output Total 1000 800 Balance -1000 -800 Output: Urine 1000 800 Other: Voiding Method Indwelling Catheter Indwelling Catheter Indwelling Catheter - Labs CBC & Chem 7: 01/14/24 03:53 01/14/24 03:53 Labs: Abnormal Lab Results - Last 24 Hours (Table) 01/13/24 01/13/24 01/13/24 Range/Units 02:24 10:35 16:09 RBC (4.10-5.20) X 10*6/uL Hgb (12.0-15.0) g/dL Hct (37.2-46.3) % MCH (27.0-32.0) pg MCHC (32.0-37.0) g/dL RDW (11.5-14.5) % Carbon Dioxide 19.8 L (21.6-31.8) mmol/L Anion Gap 12.20 H (4.00-12.00) mmol/L BUN 32.5 H (9.0-27.0) mg/dL Est GFR (CKD-EPI) 42 L (>=60) BUN/Creatinine Ratio 25.00 H (12.00-20.00) Ratio Glucose (70-110) mg/dL POC Glucose (mg/dL) 192 H (70-110) mg/dL Calcium 8.4 L (8.7-10.3) mg/dL Total Bilirubin (0.3-1.2) mg/dL AST 41 H (13-35) U/L Total Protein 5.4 L (6.2-8.2) g/dL Albumin 2.7 L (3.8-4.9) g/dL Albumin/Globulin Ratio 1.00 L (1.60-3.17) Ratio Fluid Appearance Slightly Hazy A (Clear) 01/13/24 01/14/24 01/14/24 Range/Units 20:48 03:53 03:53 RBC 3.45 L (4.10-5.20) X 10*6/uL Hgb 9.2 L (12.0-15.0) g/dL Hct 29.6 L (37.2-46.3) % MCH 26.7 L (27.0-32.0) pg MCHC 31.1 L (32.0-37.0) g/dL RDW 16.5 H (11.5-14.5) % Carbon Dioxide (21.6-31.8) mmol/L Anion Gap (4.00-12.00) mmol/L BUN 28.7 H (9.0-27.0) mg/dL Est GFR (CKD-EPI) 42 L (>=60) BUN/Creatinine Ratio 22.08 H (12.00-20.00) Ratio Glucose 113 H (70-110) mg/dL POC Glucose (mg/dL) 186 H (70-110) mg/dL Calcium 8.5 L (8.7-10.3) mg/dL Total Bilirubin 0.2 L (0.3-1.2) mg/dL AST (13-35) U/L Total Protein 5.4 L (6.2-8.2) g/dL Albumin 2.7 L (3.8-4.9) g/dL Albumin/Globulin Ratio 1.00 L (1.60-3.17) Ratio Fluid Appearance (Clear) Assessment and Plan Plan: Assessment: 1. Acute kidney injury secondary to ATN secondary to hypotension. Diuretics have been held. No hydronephrosis noted on CAT scan. UA negative. Creatinine stable at 1.3. 2. Right lung pneumonia maintained on antibiotics. 3. Volume overload. Improving with diuresis. Status post paracentesis January 13, 2024 with 3.2 L drained. 4. Chronic kidney disease stage IIIb with baseline creatinine 1.4-1.6 secondary to multiple acute kidney injury episodes and cardiorenal syndrome. 5. Anemia. Iron deficiency noted. 6. Metabolic acidosis secondary to acute kidney injury and IV fluids. On oral bicarb. Better. Plan: Increase Lasix frequency to twice daily. Encouraged oral intake. Avoid nephrotoxins. Maintain IV iron.
[2024-01-14 11:08] LABS: Glucose,Whole Blood 138 mg/dL (70-110)
--- NOTE | 2024-01-14 13:59 | P.PN ---
Subjective Progress Note Date: 01/14/24 CHIEF COMPLAINT: Abdominal pain HISTORY OF PRESENT ILLNESS: Patient admitted to the hospital with fever, altered mental status and abdominal pain. She is on antibiotics for possible pneumonia. CAT scan had shown ascites.. Gallbladder ultrasound had reported ascites and mild debris in the gallbladder. Patient is status post paracentesis with 3.2 L removed. She reports that the tightness across the upper abdomen has resolved. She is tolerating diet. Afebrile. WBC 7.16 Hgb 9.2 fluid from paracentesis culture and cytology pending PHYSICAL EXAM: VITAL SIGNS: Reviewed. GENERAL: Well-developed in no acute distress. ABDOMEN: Soft. Nondistended nontender. NEUROLOGIC: Alert and oriented. Cranial nerves II through XII grossly intact. ASSESSMENT: 1. Abdominal pain resolved. Status post paracentesis with 3.2 L removed. 2. Chronic cholecystitis 3. Probable choledocholithiasis in the past PLAN: -Follow-up on paracentesis fluid cultures -Continue antibiotics -Continue supportive care -Nephrology has placed patient on IV Lasix. Physician Continuous Churn Buttermaker note has been reviewed by physician. Signing provider agrees with the documented findings, assessment, and plan of care. 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 Based on total visit time, I have performed more than 50% of the visit. As above: Patient doing well today. No abdominal pain. No bloating. Dictation by radiology does show a significant volume of fluid was removed. 3.2 L estimated. Cultures are pending. Continue diet as tolerated. Objective - Vital Signs Vital signs: Vital Signs Temp 98.0 F 01/14/24 13:22 Pulse 56 L 01/14/24 13:22 Resp 17 01/14/24 13:22 BP 140/71 01/14/24 13:22 Pulse Ox 96 01/14/24 13:22 FiO2 Intake & Output 01/13/24 01/14/24 01/14/24 18:59 06:59 18:59 Output Total 1000 800 750 Balance -1000 -800 -750 Output: Urine 1000 800 750 Other: Voiding Method Indwelling Catheter Indwelling Catheter Indwelling Catheter - Labs CBC & Chem 7: 01/14/24 03:53 01/14/24 03:53 Labs: Abnormal Lab Results - Last 24 Hours (Table) 01/13/24 01/13/24 01/13/24 Range/Units 10:35 16:09 20:48 RBC (4.10-5.20) X 10*6/uL Hgb (12.0-15.0) g/dL Hct (37.2-46.3) % MCH (27.0-32.0) pg MCHC (32.0-37.0) g/dL RDW (11.5-14.5) % BUN (9.0-27.0) mg/dL Est GFR (CKD-EPI) (>=60) BUN/Creatinine Ratio (12.00-20.00) Ratio Glucose (70-110) mg/dL POC Glucose (mg/dL) 192 H 186 H (70-110) mg/dL Calcium (8.7-10.3) mg/dL Total Bilirubin (0.3-1.2) mg/dL Total Protein (6.2-8.2) g/dL Albumin (3.8-4.9) g/dL Albumin/Globulin Ratio (1.60-3.17) Ratio Fluid Appearance Slightly Hazy A (Clear) 01/14/24 01/14/24 01/14/24 Range/Units 03:53 03:53 11:07 RBC 3.45 L (4.10-5.20) X 10*6/uL Hgb 9.2 L (12.0-15.0) g/dL Hct 29.6 L (37.2-46.3) % MCH 26.7 L (27.0-32.0) pg MCHC 31.1 L (32.0-37.0) g/dL RDW 16.5 H (11.5-14.5) % BUN 28.7 H (9.0-27.0) mg/dL Est GFR (CKD-EPI) 42 L (>=60) BUN/Creatinine Ratio 22.08 H (12.00-20.00) Ratio Glucose 113 H (70-110) mg/dL POC Glucose (mg/dL) 138 H (70-110) mg/dL Calcium 8.5 L (8.7-10.3) mg/dL Total Bilirubin 0.2 L (0.3-1.2) mg/dL Total Protein 5.4 L (6.2-8.2) g/dL Albumin 2.7 L (3.8-4.9) g/dL Albumin/Globulin Ratio 1.00 L (1.60-3.17) Ratio Fluid Appearance (Clear)
[2024-01-14 16:31] LABS: Glucose,Whole Blood 97 mg/dL (70-110)
[2024-01-14 20:53] LABS: Glucose,Whole Blood 154 mg/dL (70-110)
[2024-01-14] MEDS: FUROSEMIDE 10 MG/ML 4 ML VIAL IV SCH (21:14)
[2024-01-15 05:38] LABS: Glucose,Whole Blood 62 mg/dL (70-110)
[2024-01-15 06:00] LABS: Glucose,Whole Blood 98 mg/dL (70-110)
[2024-01-15 06:41] LABS: Glucose,Whole Blood 111 mg/dL (70-110)
[2024-01-15] MEDS: INSULIN DETEMIR (LEVEMIR) 100 UNIT/ML SYR SQ ONE (06:43)
[2024-01-15 08:22] LABS: HGB 9.9 g/dL (12.0-15.0); MCHC 30.9 g/dL (32.0-37.0); MCV 87.4 FL (80.0-97.0); Mean Platelet Volume 11.3 FL (9.5-12.2); NRBC Per 100 WBC 0 X 10*3/uL (0.00-0.01); Platelet Count 268 X 10*3/uL (140-440); RBC 3.66 X 10*6/uL (4.10-5.20); RDW 16.9 % (11.5-14.5); WBC 8.92 X 10*3/uL (4.50-10.00)
--- NOTE | 2024-01-15 08:36 | P.PN ---
Subjective Progress Note Date: 01/15/24 This is an 78-year-old female who presented to the emergency department with complaints of abdominal pain and fever. Patient had a low-grade fever on admission and the CT of her abdomen showed ascites. Chest x-ray on admission suggestive of right sided infiltrate. Abdominal ultrasound on admission showed debris within the gallbladder. Patient's fever has subsided and her abdominal pain has improved. Creatinine yesterday was 1.7. Patient has a history of chronic wounds due to her limited mobility. Nephrology, infectious disease and general surgeon are following. 01/13/2024 Patient seen and evaluated laying in bed this morning. Plan is for paracentesis today. Yesterday patient was seen and evaluated by wound care guarding her chronic wounds. 01/15/2024 Patient seen and evaluated laying in bed this morning. She had paracentesis on 01/13/2024 with 3.2 L removed, culture pending. Yesterday patient was started on IV Lasix by nephrology. Patient reports she is feeling well, denies any s hortness of breath. Objective - Vital Signs Vital signs: Vital Signs Temp 98.5 F 01/15/24 06:40 Pulse 96 01/15/24 06:40 Resp 18 01/15/24 06:40 BP 110/71 01/15/24 06:40 Pulse Ox 94 L 01/15/24 06:40 FiO2 Intake & Output 01/14/24 01/15/24 01/15/24 18:59 06:59 18:59 Output Total 1000 1700 Balance -1000 -1700 Output: Urine 1000 1700 Other: Voiding Method Indwelling Catheter Indwelling Catheter - Constitutional General appearance: Present: cooperative, no acute distress - EENT Eyes: Present: PERRLA - Neck Neck: Present: normal ROM. Absent: lymphadenopathy, rigidity - Respiratory Respiratory: bilateral: CTA - Cardiovascular Heart sounds: normal: S1, S2 - Gastrointestinal General gastrointestinal: Present: soft. Absent: tenderness - Integumentary Integumentary: Present: normal turgor - Musculoskeletal Musculoskeletal: Present: generalized weakness - Psychiatric Psychiatric: Present: A&O x's 3 - Labs CBC & Chem 7: 01/15/24 02:40 01/14/24 03:53 Labs: Abnormal Lab Results - Last 24 Hours (Table) 01/14/24 01/14/24 01/14/24 Range/Units 03:53 03:53 11:07 RBC 3.45 L (4.10-5.20) X 10*6/uL Hgb 9.2 L (12.0-15.0) g/dL Hct 29.6 L (37.2-46.3) % MCH 26.7 L (27.0-32.0) pg MCHC 31.1 L (32.0-37.0) g/dL RDW 16.5 H (11.5-14.5) % BUN 28.7 H (9.0-27.0) mg/dL Est GFR (CKD-EPI) 42 L (>=60) BUN/Creatinine Ratio 22.08 H (12.00-20.00) Ratio Glucose 113 H (70-110) mg/dL POC Glucose (mg/dL) 138 H (70-110) mg/dL Calcium 8.5 L (8.7-10.3) mg/dL Total Bilirubin 0.2 L (0.3-1.2) mg/dL Total Protein 5.4 L (6.2-8.2) g/dL Albumin 2.7 L (3.8-4.9) g/dL Albumin/Globulin Ratio 1.00 L (1.60-3.17) Ratio 01/14/24 01/15/24 01/15/24 Range/Units 20:51 02:40 05:36 RBC 3.66 L (4.10-5.20) X 10*6/uL Hgb 9.9 L (12.0-15.0) g/dL Hct 32.0 L (37.2-46.3) % MCH (27.0-32.0) pg MCHC 30.9 L (32.0-37.0) g/dL RDW 16.9 H (11.5-14.5) % BUN (9.0-27.0) mg/dL Est GFR (CKD-EPI) (>=60) BUN/Creatinine Ratio (12.00-20.00) Ratio Glucose (70-110) mg/dL POC Glucose (mg/dL) 154 H 62 L (70-110) mg/dL Calcium (8.7-10.3) mg/dL Total Bilirubin (0.3-1.2) mg/dL Total Protein (6.2-8.2) g/dL Albumin (3.8-4.9) g/dL Albumin/Globulin Ratio (1.60-3.17) Ratio 01/15/24 Range/Units 06:39 RBC (4.10-5.20) X 10*6/uL Hgb (12.0-15.0) g/dL Hct (37.2-46.3) % MCH (27.0-32.0) pg MCHC (32.0-37.0) g/dL RDW (11.5-14.5) % BUN (9.0-27.0) mg/dL Est GFR (CKD-EPI) (>=60) BUN/Creatinine Ratio (12.00-20.00) Ratio Glucose (70-110) mg/dL POC Glucose (mg/dL) 111 H (70-110) mg/dL Calcium (8.7-10.3) mg/dL Total Bilirubin (0.3-1.2) mg/dL Total Protein (6.2-8.2) g/dL Albumin (3.8-4.9) g/dL Albumin/Globulin Ratio (1.60-3.17) Ratio Microbiology - Last 24 Hours (Table) 01/09/24 16:44 Blood Culture - Final Blood 01/13/24 10:35 Gram Stain - Preliminary Paracentesis Fluid Body Fluid Culture - Preliminary Assessment and Plan (1) Acute kidney injury Current Visit: Yes Status: Acute Code(s): N17.9 - ACUTE KIDNEY FAILURE, UNSPECIFIED SNOMED Code(s): 54929019 (2) Abdominal pain Current Visit: Yes Status: Acute Code(s): R10.9 - UNSPECIFIED ABDOMINAL PAIN SNOMED Code(s): 38067006 (3) Ascites Current Visit: Yes Status: Acute Code(s): R18.8 - OTHER ASCITES SNOMED Co de(s): 842540941 (4) Atrial fibrillation Current Visit: No Status: Acute Code(s): I48.91 - UNSPECIFIED ATRIAL FIBRILLATION SNOMED Code(s): 12845640 (5) CAD (coronary artery disease) Current Visit: No Status: Acute Code(s): I25.10 - ATHSCL HEART DISEASE OF [place] CORONARY ARTERY W/O ANG PCTRS SNOMED Code(s): 70139795 (6) Chronic wound Current Visit: No Status: Acute Code(s): T14.8XXA - OTHER INJURY OF UNSPECIFIED BODY REGION, INITIAL ENCOUNTER SNOMED Code(s): 06391542709381 (7) Diabetes Current Visit: No Status: Acute Code(s): E11.9 - TYPE 2 DIABETES MELLITUS WITHOUT COMPLICATIONS SNOMED Code(s): 34864360 (8) History of atrial fibrillation Current Visit: No Status: Acute Code(s): Z86.79 - PERSONAL HISTORY OF OTHER DISEASES OF THE CIRCULATORY SYSTEM SNOMED Code(s): 878930115 (9) 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 Patient seen and evaluated by nurse practitioner, physician in agreement with plan.
[2024-01-15 09:01] LABS: Magnesium 1.7 mg/dL (1.5-2.4)
[2024-01-15 09:08] LABS: ALT 20 U/L (8-44); AST 39 U/L (13-35); Albumin 2.8 g/dL (3.8-4.9); Albumin/Globulin Ratio 0.97 Ratio (1.60-3.17); Alkaline Phosphatase 125 U/L (41-126); BUN/Creat Ratio 21.25 Ratio (12.00-20.00); Blood Urea Nitrogen 25.5 mg/dL (9.0-27.0); Calcium 8.7 mg/dL (8.7-10.3); Carbon Dioxide 22.5 mmol/L (21.6-31.8); Chloride 105 mmol/L (96-109); Globulin 2.9 g/dL (1.6-3.3); Glucose 48 mg/dL (70-110); Potassium 3.6 mmol/L (3.5-5.5); Sodium 139 mmol/L (135-145); Total Bilirubin 0.2 mg/dL (0.3-1.2); Total Protein 5.7 g/dL (6.2-8.2)
[2024-01-15 09:35] VITALS: BMI 33.5
[2024-01-15 11:10] LABS: Glucose,Whole Blood 85 mg/dL (70-110)
--- NOTE | 2024-01-15 11:36 | P.PN ---
Subjective Patient is seen in follow-up for acute kidney injury on chronic kidney disease. Renal function stable. Nonoliguric. Denies chest pain or shortness of breath. On IV Lasix. Status post paracentesis January 13, 2024 with 3.2 L drained. Vital signs are stable. General: No acute distress. HEENT: Head exam is unremarkable. LUNGS: No audible rhonchi or wheezes. HEART: Rate and Rhythm are regular. ABDOMEN: Nontender. EXTREMITITES: 1+ edema. Objective - Vital Signs Vital signs: Vital Signs Temp 98.5 F 01/15/24 06:40 Pulse 96 01/15/24 06:40 Resp 18 01/15/24 06:40 BP 110/71 01/15/24 06:40 Pulse Ox 94 L 01/15/24 06:40 FiO2 Intake & Output 01/14/24 01/15/24 01/15/24 18:59 06:59 18:59 Output Total 1000 1700 Balance -1000 -1700 Weight 83.007 kg Output: Urine 1000 1700 Other: Voiding Method Indwelling Catheter Indwelling Catheter Indwelling Catheter - Labs CBC & Chem 7: 01/15/24 02:40 01/15/24 02:40 Labs: Abnormal Lab Results - Last 24 Hours (Table) 01/14/24 01/15/24 01/15/24 Range/Units 20:51 02:40 02:40 RBC 3.66 L (4.10-5.20) X 10*6/uL Hgb 9.9 L (12.0-15.0) g/dL Hct 32.0 L (37.2-46.3) % MCHC 30.9 L (32.0-37.0) g/dL RDW 16.9 H (11.5-14.5) % Est GFR (CKD-EPI) 46 L (>=60) BUN/Creatinine Ratio 21.25 H (12.00-20.00) Ratio Glucose 48 A* (70-110) mg/dL POC Glucose (mg/dL) 154 H (70-110) mg/dL Total Bilirubin 0.2 L (0.3-1.2) mg/dL AST 39 H (13-35) U/L Total Protein 5.7 L (6.2-8.2) g/dL Albumin 2.8 L (3.8-4.9) g/dL Albumin/Globulin Ratio 0.97 L (1.60-3.17) Ratio 01/15/24 01/15/24 Range/Units 05:36 06:39 RBC (4.10-5.20) X 10*6/uL Hgb (12.0-15.0) g/dL Hct (37.2-46.3) % MCHC (32.0-37.0) g/dL RDW (11.5-14.5) % Est GFR (CKD-EPI) (>=60) BUN/Creatinine Ratio (12.00-20.00) Ratio Glucose (70-110) mg/dL POC Glucose (mg/dL) 62 L 111 H (70-110) mg/dL Total Bilirubin (0.3-1.2) mg/dL AST (13-35) U/L Total Protein (6.2-8.2) g/dL Albumin (3.8-4.9) g/dL Albumin/Globulin Ratio (1.60-3.17) Ratio Microbiology - Last 24 Hours (Table) 01/09/24 16:44 Blood Culture - Final Blood 01/13/24 10:35 Gram Stain - Preliminary Paracentesis Fluid Body Fluid Culture - Preliminary Assessment and Plan Plan: Assessment: 1. Acute kidney injury secondary to ATN secondary to hypotension. Diuretics have been held. No hydronephrosis noted on CAT scan. UA negative. Creatinine stable at 1.2. 2. Right lung pneumonia maintained on antibiotics. 3. Volume overload. Improving with diuresis. Status post paracentesis January 13, 2024 with 3.2 L drained. 4. Chronic kidney disease stage IIIb with baseline creatinine 1.4-1.6 secondary to multiple acute kidney injury episodes and cardiorenal syndrome. 5. Anemia. Iron deficiency noted. 6. Metabolic acidosis secondary to acute kidney injury and IV fluids. On oral bicarb. Better. Plan: Maintain IV Lasix. Transition to oral diuretics tomorrow. Add maintenance potassium supplementation. Encouraged oral intake. Avoid nephrotoxins. Maintain IV iron. Add oral magnesium oxide. Okay to DC [place] catheter from nephrology standpoint.
[2024-01-15] MEDS: MAGNESIUM OXIDE 400 MG TAB PO SCH (11:48)
[2024-01-15] MEDS: POTASSIUM CHLORIDE ER 20 MEQ TAB.ER PO STA (11:48)
--- NOTE | 2024-01-15 12:11 | P.PN ---
Subjective Progress Note Date: 01/15/24 CHIEF COMPLAINT: Abdominal pain HISTORY OF PRESENT ILLNESS: Patient admitted to the hospital with fever, altered mental status and abdominal pain. She is on antibiotics for possible pneumonia. CAT scan had shown ascites.. Gallbladder ultrasound had reported ascites and mild debris in the gallbladder. Patient is status post paracentesis with 3.2 L removed. Patient denies any abdominal pain. Patient reports the tightness in the abdomen has resolved. She is tolerating diet. Afebrile. WBC 8.92 total bili 0.2 AST 39 ALT 20 alk phos 125. Final fluid culture from paracentesis pending. Preliminary report reports no organisms seen. Patient remains on IV Lasix PHYSICAL EXAM: VITAL SIGNS: Reviewed. GENERAL: Well-developed in no acute distress. ABDOMEN: Soft. Nondistended nontender. NEUROLOGIC: Alert and oriented. Cranial nerves II through XII grossly intact. ASSESSMENT: 1. Abdominal pain resolved. Abdominal ascites. Status post paracentesis with 3.2 L removed. 2. Chronic cholecystitis 3. Probable choledocholithiasis in the past PLAN: -No surgical intervention planned -Follow-up on paracentesis fluid cultures -Continue supportive care -Continue regular diet Physician Marketing Strategy Analyst note has been reviewed by physician. Signing provider agrees with the documented findings, assessment, and plan of care. I have personally seen and examined the patient, reviewed the [employer] [facility] /PAs history, exam and MDM and agree with the assessment and plan as written. Based on total visit time, I have performed more than 50% of the visit. As above: Culture still pending. Feels well. Stable for discharge from our point of view. Objective - Vital Signs Vital signs: Vital Signs Temp 98.5 F 01/15/24 06:40 Pulse 96 01/15/24 06:40 Resp 18 01/15/24 06:40 BP 110/71 01/15/24 06:40 Pulse Ox 94 L 01/15/24 06:40 FiO2 Intake & Output 01/14/24 01/15/24 01/15/24 18:59 06:59 18:59 Output Total 1000 1700 Balance -1000 -1700 Weight 83.007 kg Output: Urine 1000 1700 Other: Voiding Method Indwelling Catheter Indwelling Catheter Indwelling Catheter - Labs CBC & Chem 7: 01/15/24 02:40 01/15/24 02:40 Labs: Abnormal Lab Results - Last 24 Hours (Table) 01/14/24 01/15/24 01/15/24 Range/Units 20:51 02:40 02:40 RBC 3.66 L (4.10-5.20) X 10*6/uL Hgb 9.9 L (12.0-15.0) g/dL Hct 32.0 L (37.2-46.3) % MCHC 30.9 L (32.0-37.0) g/dL RDW 16.9 H (11.5-14.5) % Est GFR (CKD-EPI) 46 L (>=60) BUN/Creatinine Ratio 21.25 H (12.00-20.00) Ratio Glucose 48 A* (70-110) mg/dL POC Glucose (mg/dL) 154 H (70-110) mg/dL Total Bilirubin 0.2 L (0.3-1.2) mg/dL AST 39 H (13-35) U/L Total Protein 5.7 L (6.2-8.2) g/dL Albumin 2.8 L (3.8-4.9) g/dL Albumin/Globulin Ratio 0.97 L (1.60-3.17) Ratio 01/15/24 01/15/24 Range/Units 05:36 06:39 RBC (4.10-5.20) X 10*6/uL Hgb (12.0-15.0) g/dL Hct (37.2-46.3) % MCHC (32.0-37.0) g/dL RDW (11.5-14.5) % Est GFR (CKD-EPI) (>=60) BUN/Creatinine Ratio (12.00-20.00) Ratio Glucose (70-110) mg/dL POC Glucose (mg/dL) 62 L 111 H (70-110) mg/dL Total Bilirubin (0.3-1.2) mg/dL AST (13-35) U/L Total Protein (6.2-8.2) g/dL Albumin (3.8-4.9) g/dL Albumin/Globulin Ratio (1.60-3.17) Ratio Microbiology - Last 24 Hours (Table) 01/09/24 16:44 Blood Culture - Final Blood 01/13/24 10:35 Gram Stain - Preliminary Paracentesis Fluid Body Fluid Culture - Preliminary
--- NOTE | 2024-01-15 13:15 | P.PN ---
Subjective Progress Note Date: 01/14/24 Principal diagnosis: Reason for follow-up is fever Patient is a 78-year-old female with a past medical history significant for atrial fibrillation coronary disease diabetes mellitus hypertension OR patient has been brought into the hospital for evaluation of mental status changes fever and confusion patient also have a low-grade fever elevated white count CT abdomen shows ascites with the chest x-ray suggestive of right sided infiltrate and abdominal ultrasound with the debris's within the gallbladder. On today's evaluation that is 01/14/2024, Patient is afebrile this morning patient denies having any chest pain shortness of breath or cough, the patient is currently on room air, patient denies any abdominal pain no diarrhea no nausea no vomiting, no new symptoms. Patient white count 7.16 creat is 1.3 peritoneal fluid was hazy WBC only 42 cultures are pending Objective - Vital Signs Vital signs: Vital Signs Temp 98.2 F 01/14/24 07:46 Pulse 72 01/14/24 07:46 Resp 14 01/14/24 07:46 BP 121/63 01/14/24 07:46 Pulse Ox 98 01/14/24 07:46 FiO2 Intake & Output 01/13/24 01/14/24 01/14/24 18:59 06:59 18:59 Output Total 1000 800 Balance -1000 -800 Output: Urine 1000 800 Other: Voiding Method Indwelling Catheter Indwelling Catheter Indwelling Catheter - Exam Elderly female lying in bed no distress No tachypnea or accessory muscle respiration use Unlabored breathing Lower extremity with swelling but no redness or drainage - Labs CBC & Chem 7: 01/15/24 02:40 01/15/24 02:40 Labs: Abnormal Lab Results - Last 24 Hours (Table) 01/13/24 01/13/24 01/13/24 Range/Units 10:35 16:09 20:48 RBC (4.10-5.20) X 10*6/uL Hgb (12.0-15.0) g/dL Hct (37.2-46.3) % MCH (27.0-32.0) pg MCHC (32.0-37.0) g/dL RDW (11.5-14.5) % BUN (9.0-27.0) mg/dL Est GFR (CKD-EPI) (>=60) BUN/Creatinine Ratio (12.00-20.00) Ratio Glucose (70-110) mg/dL POC Glucose (mg/dL) 192 H 186 H (70-110) mg/dL Calcium (8.7-10.3) mg/dL Total Bilirubin (0.3-1.2) mg/dL Total Protein (6.2-8.2) g/dL Albumin (3.8-4.9) g/dL Albumin/Globulin Ratio (1.60-3.17) Ratio Fluid Appearance Slightly Hazy A (Clear) 01/14/24 01/14/24 01/14/24 Range/Units 03:53 03:53 11:07 RBC 3.45 L (4.10-5.20) X 10*6/uL Hgb 9.2 L (12.0-15.0) g/dL Hct 29.6 L (37.2-46.3) % MCH 26.7 L (27.0-32.0) pg MCHC 31.1 L (32.0-37.0) g/dL RDW 16.5 H (11.5-14.5) % BUN 28.7 H (9.0-27.0) mg/dL Est GFR (CKD-EPI) 42 L (>=60) BUN/Creatinine Ratio 22.08 H (12.00-20.00) Ratio Glucose 113 H (70-110) mg/dL POC Glucose (mg/dL) 138 H (70-110) mg/dL Calcium 8.5 L (8.7-10.3) mg/dL Total Bilirubin 0.2 L (0.3-1.2) mg/dL Total Protein 5.4 L (6.2-8.2) g/dL Albumin 2.7 L (3.8-4.9) g/dL Albumin/Globulin Ratio 1.00 L (1.60-3.17) Ratio Fluid Appearance (Clear) Assessment and Plan (1) Fever Current Visit: Yes Status: Acute Code(s): R50.9 - FEVER, UNSPECIFIED SNOMED Code(s): 394156268 Plan: 1patient presenting to the hospital with fever metastatic disease abdominal pain in this patient who did have mildly elevated liver enzymes with evidence of diabetes and the cognitive question of possibly related to the gallbladder disease abdominal source, patient did have some infiltrate on the right side underlying pneumonia not entirely excluded 2-patient did have elevated procalcitonin of 10.70 3-patient has been eval by surgery concern for possible acute on chronic cholecystitis, patient is status post paracentesis, with white cells only 42 not behaving as SBP 4-patient will continue with Rocephin and monitor clinical course closely Dictation was produced using [employer] dictation software. please excuse any grammatical, word or spelling errors. Time with Patient: Less than 30
[2024-01-15 16:16] LABS: Glucose,Whole Blood 123 mg/dL (70-110)
[2024-01-15 20:20] LABS: Glucose,Whole Blood 100 mg/dL (70-110)
--- NOTE | 2024-01-15 21:47 | P.PN ---
Subjective Progress Note Date: 01/15/24 Principal diagnosis: Reason for follow-up is fever Patient is a 78-year-old female with a past medical history significant for atrial fibrillation coronary disease diabetes mellitus hypertension ID patient has been brought into the hospital for evaluation of mental status changes fever and confusion patient also have a low-grade fever elevated white count CT abdomen shows ascites with the chest x-ray suggestive of right sided infiltrate and abdominal ultrasound with the debris's within the gallbladder. On today's evaluation that is 01/15/2024,the patient denies any fever or any chills, patient is breathing comfortably on room air, the patient denies chest pain shortness of breath and no significant cough, patient has been complaining of some abdominal distention but no pain, no nausea vomiting or diarrhea. No new lab has been obtained today blood and peritoneal fluid culture has been negative so far Objective - Vital Signs Vital signs: Vital Signs Temp 98.5 F 01/15/24 06:40 Pulse 96 01/15/24 06:40 Resp 18 01/15/24 06:40 BP 110/71 01/15/24 06:40 Pulse Ox 94 L 01/15/24 06:40 FiO2 Intake & Output 01/14/24 01/15/24 01/15/24 18:59 06:59 18:59 Output Total 1000 1700 Balance -1000 -1700 Weight 83.007 kg Output: Urine 1000 1700 Other: Voiding Method Indwelling Catheter Indwelling Catheter Indwelling Catheter - Exam Elderly female lying in bed no distress No tachypnea or accessory muscle respiration use Unlabored breathing clear auscultation anteriorly Abdominal soft mildly distended but no guarding rigidity Lower extremity with swelling but no redness or drainage - Labs CBC & Chem 7: 01/15/24 02:40 01/15/24 02:40 Labs: Abnormal Lab Results - Last 24 Hours (Table) 01/14/24 01/15/24 01/15/24 Range/Units 20:51 02:40 02:40 RBC 3.66 L (4.10-5.20) X 10*6/uL Hgb 9.9 L (12.0-15.0) g/dL Hct 32.0 L (37.2-46.3) % MCHC 30.9 L (32.0-37.0) g/dL RDW 16.9 H (11.5-14.5) % Est GFR (CKD-EPI) 46 L (>=60) BUN/Creatinine Ratio 21.25 H (12.00-20.00) Ratio Glucose 48 A* (70-110) mg/dL POC Glucose (mg/dL) 154 H (70-110) mg/dL Total Bilirubin 0.2 L (0.3-1.2) mg/dL AST 39 H (13-35) U/L Total Protein 5.7 L (6.2-8.2) g/dL Albumin 2.8 L (3.8-4.9) g/dL Albumin/Globulin Ratio 0.97 L (1.60-3.17) Ratio 01/15/24 01/15/24 Range/Units 05:36 06:39 RBC (4.10-5.20) X 10*6/uL Hgb (12.0-15.0) g/dL Hct (37.2-46.3) % MCHC (32.0-37.0) g/dL RDW (11.5-14.5) % Est GFR (CKD-EPI) (>=60) BUN/Creatinine Ratio (12.00-20.00) Ratio Glucose (70-110) mg/dL POC Glucose (mg/dL) 62 L 111 H (70-110) mg/dL Total Bilirubin (0.3-1.2) mg/dL AST (13-35) U/L Total Protein (6.2-8.2) g/dL Albumin (3.8-4.9) g/dL Albumin/Globulin Ratio (1.60-3.17) Ratio Microbiology - Last 24 Hours (Table) 01/09/24 16:44 Blood Culture - Final Blood 01/13/24 10:35 Gram Stain - Preliminary Paracentesis Fluid Body Fluid Culture - Preliminary Assessment and Plan (1) Fever Current Visit: Yes Status: Acute Code(s): R50.9 - FEVER, UNSPECIFIED SNOMED Code(s): 028335988 Plan: 1patient presenting to the hospital with fever, abdominal pain in this patient who did have mildly elevated liver enzymes with question of possibly related to the gallbladder disease abdominal source, patient did have some infiltrate on the right side underlying pneumonia not entirely excluded 2-patient did have elevated procalcitonin of 10.70 3-patient has been eval by surgery concern for possible acute on chronic cholecystitis, patient is status post paracentesis, with white cells only 42 not behaving as SBP 4-patient will continue with Rocephin and plan to finish therapy with oral Ceftin Dictation was produced using [employer]feed dictation software. please excuse any grammatical, word or spelling errors. Time with Patient: Less than 30
[2024-01-16 06:42] LABS: Glucose,Whole Blood 77 mg/dL (70-110)
--- NOTE | 2024-01-16 08:15 | P.DS ---
Providers Date of admission: 01/09/24 19:48 Attending physician: Luis Shirley Consults: 01/10/24 10:27 Consult Physician Routine Consulting Provider: Jenae Bowman Consult Reason/Comments: Fever Do you want consulting provider notified?: Yes 01/10/24 10:32 Consult Physician Routine Consulting Provider: Bandar Baker Consult Reason/Comments: Abdominal pain Do you want consulting provider notified?: Yes 01/10/24 10:39 Consult Physician Routine Consulting Provider: Veronica Chavez Consult Reason/Comments: Acute on chronic kidney disease Do you want consulting provider notified?: Yes Primary care physician: Luis Shirley - Discharge Diagnosis(es) (1) Acute and chronic cholecystitis Current Visit: Yes Status: Acute (2) Acute kidney injury Current Visit: Yes Status: Acute (3) Ascites Current Visit: Yes Status: Acute (4) 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 Found to have ascites. She ended up having paracentesis. So far no cytology positivity or signs of spontaneous bacterial peritonitis and the patient's pain has resolving. The patient most likely has element of acute on chronic cholecystitis but is not healthy enough to have any type of procedure to fix it at this time. Underlying history of back cellulitis secondary to pressure ulceration issues. The patient also was treated for pneumonia and element of renal failure. Multiple consultants were on this case including surgery and nephrology with infectious disease. The patient will be discharged after having a course of IV antibiotics for Ceftin 500 mg the patient has developed thrombophlebitis on the last day of hospitalization and will use appropriate antibiotic treatment with warm compress. Also her anticoagulation is restarted which should help with the phlebitis. Patient Condition at Discharge: Fair Plan - Discharge Summary Discharge Rx Participant: Yes New Discharge Prescriptions: New Apixaban [Eliquis] 5 mg PO BID tab Potassium Chloride ER [K-Dur 20] 20 meq PO DAILY tab Metoprolol Tartrate [Lopressor] 12.5 mg PO BID #60 tab Sodium Bicarbonate Tab 650 mg PO BID #60 tab cefUROXime axetiL [Ceftin] 500 mg PO BID 7 Days #14 tab Magnesium Oxide [Mag-Ox] 400 mg PO DAILY #30 tab Nystatin 100,000Unit/gm Cream [Mycostatin Cream] 1 applic TOPICAL BID #60 g Continue Ipratropium [place] [Atrovent Hfa] 2 puff INHALATION RT-QID ALPRAZolam [Xanax] 0.25 mg PO TID PRN PRN Reason: Anxiety Aspirin 81 mg PO DAILY Atorvastatin [Lipitor] 20 mg PO DAILY Escitalopram [Lexapro] 10 mg PO DAILY Furosemide [Lasix] 80 mg PO DAILY Insulin Glargine,Hum.rec.anlog [Toujeo Max Solostar] 16 - 18 units SQ HS Insulin Glargine,Hum.rec.anlog [Toujeo Max Solostar] 24 units SQ DAILY Potassium Chloride ER [K-Dur 20] 20 meq PO DAILY carvediloL [Coreg] 3.125 mg PO BID Albuterol Inhaler [Ventolin Hfa Inhaler] 2 puff INHALATION RT-QID PRN PRN Reason: Shortness Of Breath Apixaban [Eliquis] 5 mg PO BID Sacubitril/Valsartan [Entresto 24 mg-26 mg Tablet] 1 tab PO BID Omeprazole [PriLOSEC] 20 mg PO DAILY Ammonium Lactate Lotion [Lac-Hydrin 12% Lotion] 1 applic TOPICAL BID PRN PRN Reason: DRY ITCHY SKIN Cholecalciferol [Vitamin D3 (25 Mcg = 1000 Iu)] 25 mcg PO DAILY Multivit-Min/FA/Lycopen/Lutein [Centrum Silver Tablet] 1 tab PO DAILY Vit C/E/Zn/Coppr/Lutein/Zeaxan [Preservision Areds 2 Softgel] 1 cap PO BID Ascorbic Acid [Vitamin C] 1,000 mg PO DAILY Discontinued Bumetanide [BUMEX] 2 mg PO DAILY Discharge Medication List Apixaban [Eliquis] 5 mg PO BID 08/13/20 [History] Sacubitril/Valsartan [Entresto 24 mg-26 mg Tablet] 1 tab PO BID 01/12/22 [History] Omeprazole [PriLOSEC] 20 mg PO DAILY 03/05/22 [History] Ipratropium [place] [Atrovent Hfa] 2 puff INHALATION RT-QID 09/09/22 [History] ALPRAZolam [Xanax] 0.25 mg PO TID PRN 05/30/23 [History] Ammonium Lactate Lotion [Lac-Hydrin 12% Lotion] 1 applic TOPICAL BID PRN 05/30/23 [History] Aspirin 81 mg PO DAILY 05/30/23 [History] Atorvastatin [Lipitor] 20 mg PO DAILY 05/30/23 [History] Cholecalciferol [Vitamin D3 (25 Mcg = 1000 Iu)] 25 mcg PO DAILY 05/30/23 [History] Escitalopram [Lexapro] 10 mg PO DAILY 05/30/23 [History] Furosemide [Lasix] 80 mg PO DAILY 05/30/23 [History] Insulin Glargine,Hum.rec.anlog [Toujeo Max Solostar] 16 - 18 units SQ HS 05/30/23 [History] Insulin Glargine,Hum.rec.anlog [Toujeo Max Solostar] 24 units SQ DAILY 05/30/23 [History] Multivit-Min/FA/Lycopen/Lutein [Centrum Silver Tablet] 1 tab PO DAILY 05/30/23 [History] Potassium Chloride ER [K-Dur 20] 20 meq PO DAILY 05/30/23 [History] Albuterol Inhaler [Ventolin Hfa Inhaler] 2 puff INHALATION RT-QID PRN 01/09/24 [History] Ascorbic Acid [Vitamin C] 1,000 mg PO DAILY 01/09/24 [History] Vit C/E/Zn/Coppr/Lutein/Zeaxan [Preservision Areds 2 Softgel] 1 cap PO BID 01/09/24 [History] carvediloL [Coreg] 3.125 mg PO BID 01/09/24 [History] Apixaban [Eliquis] 5 mg PO BID tab 01/16/24 [Rx] Magnesium Oxide [Mag-Ox] 400 mg PO DAILY #30 tab 01/16/24 [Rx] Metoprolol Tartrate [Lopressor] 12.5 mg PO BID #60 tab 01/16/24 [Rx] Nystatin 100,000Unit/gm Cream [Mycostatin Cream] 1 applic TOPICAL BID #60 g 1 [Rx] Potassium Chloride ER [K-Dur 20] 20 meq PO DAILY tab 01/16/24 [Rx] Sodium Bicarbonate Tab 650 mg PO BID #60 tab 01/16/24 [Rx] cefUROXime axetiL [Ceftin] 500 mg PO BID 7 Days #14 tab 01/16/24 [Rx] Follow up Appointment(s)/Referral(s): Luis Shirley MD [Primary Care Provider] - 1-2 days [facility] [NON-STAFF] - ([facility] will call you to schedule your in home nursing, physical and occupational therapy, and supervisor home energy consultant visits. )
[2024-01-16] MEDS: APIXABAN 5 MG TAB PO SCH (08:51)
[2024-01-16 08:59] LABS: HCT 32.9 % (37.2-46.3); HGB 10.1 g/dL (12.0-15.0); MCH 26.8 pg (27.0-32.0); MCHC 30.7 g/dL (32.0-37.0); MCV 87.3 FL (80.0-97.0); Mean Platelet Volume 10.8 FL (9.5-12.2); NRBC Per 100 WBC 0 X 10*3/uL (0.00-0.01); Platelet Count 270 X 10*3/uL (140-440); RBC 3.77 X 10*6/uL (4.10-5.20); RDW 17.3 % (11.5-14.5); WBC 7.67 X 10*3/uL (4.50-10.00)
[2024-01-16] MEDS: POTASSIUM CHLORIDE ER 20 MEQ TAB.ER PO SCH (09:09)
[2024-01-16 09:18] LABS: ALT 20 U/L (8-44); AST 41 U/L (13-35); Albumin 2.8 g/dL (3.8-4.9); Alkaline Phosphatase 127 U/L (41-126); BUN/Creat Ratio 19.75 Ratio (12.00-20.00); Blood Urea Nitrogen 23.7 mg/dL (9.0-27.0); Calcium 8.8 mg/dL (8.7-10.3); Carbon Dioxide 23.2 mmol/L (21.6-31.8); Chloride 106 mmol/L (96-109); Globulin 3.1 g/dL (1.6-3.3); Glucose 56 mg/dL (70-110); Magnesium 1.7 mg/dL (1.5-2.4); Sodium 140 mmol/L (135-145); Total Bilirubin 0.3 mg/dL (0.3-1.2); Total Protein 5.9 g/dL (6.2-8.2)
--- NOTE | 2024-01-16 10:31 | P.PN ---
Subjective Progress Note Date: 01/16/24 CHIEF COMPLAINT: Abdominal pain HISTORY OF PRESENT ILLNESS: Patient admitted to the hospital with fever, altered mental status and abdominal pain. She is on antibiotics for possible pneumonia. CAT scan had shown ascites.. Gallbladder ultrasound had reported ascites and mild debris in the gallbladder. Patient is status post paracentesis with 3.2 L removed. Patient denies any abdominal pain. Denies any tightness across the abdomen. Tolerating diet. Medicine service is planning discharge today. WBC 7.67 Hgb 10.1 preliminary fluid culture showing no growth PHYSICAL EXAM: VITAL SIGNS: Reviewed. GENERAL: Well-developed in no acute distress. ABDOMEN: Soft. Nondistended nontender. NEUROLOGIC: Alert and oriented. Cranial nerves II through XII grossly intact. ASSESSMENT: 1. Abdominal pain resolved. Abdominal ascites. Status post paracentesis with 3.2 L removed. 2. Chronic cholecystitis 3. Probable choledocholithiasis in the past PLAN: -Stable for discharge from surgical standpoint -No surgical intervention planned -Follow-up on paracentesis fluid cultures -Continue supportive care -Continue regular diet Physician Certified Pesticide Applicator note has been reviewed by physician. Signing provider agrees with the documented findings, assessment, and plan of care. I have personally seen and examined the patient, reviewed the COMPUTATOR /PAs history, exam and MDM and agree with the assessment and plan as written. Based on total visit time, I have performed more than 50% of the visit. As above: Patient still doing well. Tolerating diet. No pain. Cultures remain negative. Agree with plans for discharge. Objective - Vital Signs Vital signs: Vital Signs Temp 98.4 F 01/16/24 08:00 Pulse 74 01/16/24 08:00 Resp 15 01/16/24 08:00 BP 138/75 01/16/24 08:00 Pulse Ox 94 L 01/16/24 00:49 FiO2 Intake & Output 01/15/24 01/16/24 01/16/24 18:59 06:59 18:59 Output Total 1700 1200 Balance -1700 -1200 Weight 83.007 kg Output: Urine 1700 1200 Other: Voiding Method Indwelling Catheter Indwelling Catheter Indwelling Catheter - Labs CBC & Chem 7: 01/16/24 02:44 01/16/24 02:44 Labs: Abnormal Lab Results - Last 24 Hours (Table) 01/15/24 01/16/24 01/16/24 Range/Units 16:14 02:44 02:44 RBC 3.77 L (4.10-5.20) X 10*6/uL Hgb 10.1 L (12.0-15.0) g/dL Hct 32.9 L (37.2-46.3) % MCH 26.8 L (27.0-32.0) pg MCHC 30.7 L (32.0-37.0) g/dL RDW 17.3 H (11.5-14.5) % Est GFR (CKD-EPI) 46 L (>=60) Glucose 56 L (70-110) mg/dL POC Glucose (mg/dL) 123 H (70-110) mg/dL AST 41 H (13-35) U/L Alkaline Phosphatase 127 H (41-126) U/L Total Protein 5.9 L (6.2-8.2) g/dL Albumin 2.8 L (3.8-4.9) g/dL Albumin/Globulin Ratio 0.90 L (1.60-3.17) Ratio Microbiology - Last 24 Hours (Table) 01/13/24 10:35 Gram Stain - Preliminary Paracentesis Fluid Body Fluid Culture - Preliminary
--- NOTE | 2024-01-16 10:48 | P.PN ---
Subjective Patient is seen in follow-up for acute kidney injury on chronic kidney disease. Renal function stable. Nonoliguric. Denies chest pain or shortness of breath. On IV Lasix. Status post paracentesis January 13, 2024 with 3.2 L drained. Vital signs are stable. General: No acute distress. HEENT: Head exam is unremarkable. LUNGS: No audible rhonchi or wheezes. HEART: Rate and Rhythm are regular. ABDOMEN: Nontender. EXTREMITITES: 1+ edema. Objective - Vital Signs Vital signs: Vital Signs Temp 98.4 F 01/16/24 08:00 Pulse 74 01/16/24 08:00 Resp 15 01/16/24 08:00 BP 138/75 01/16/24 08:00 Pulse Ox 94 L 01/16/24 00:49 FiO2 Intake & Output 01/15/24 01/16/24 01/16/24 18:59 06:59 18:59 Output Total 1700 1200 Balance -1700 -1200 Weight 83.007 kg Output: Urine 1700 1200 Other: Voiding Method Indwelling Catheter Indwelling Catheter Indwelling Catheter - Labs CBC & Chem 7: 01/16/24 02:44 01/16/24 02:44 Labs: Abnormal Lab Results - Last 24 Hours (Table) 01/15/24 01/16/24 01/16/24 Range/Units 16:14 02:44 02:44 RBC 3.77 L (4.10-5.20) X 10*6/uL Hgb 10.1 L (12.0-15.0) g/dL Hct 32.9 L (37.2-46.3) % MCH 26.8 L (27.0-32.0) pg MCHC 30.7 L (32.0-37.0) g/dL RDW 17.3 H (11.5-14.5) % Est GFR (CKD-EPI) 46 L (>=60) Glucose 56 L (70-110) mg/dL POC Glucose (mg/dL) 123 H (70-110) mg/dL AST 41 H (13-35) U/L Alkaline Phosphatase 127 H (41-126) U/L Total Protein 5.9 L (6.2-8.2) g/dL Albumin 2.8 L (3.8-4.9) g/dL Albumin/Globulin Ratio 0.90 L (1.60-3.17) Ratio Microbiology - Last 24 Hours (Table) 01/13/24 10:35 Gram Stain - Preliminary Paracentesis Fluid Body Fluid Culture - Preliminary Assessment and Plan Plan: Assessment: 1. Acute kidney injury secondary to ATN secondary to hypotension. Diuretics have been held. No hydronephrosis noted on CAT scan. UA negative. Creatinine stable at 1.2. 2. Right lung pneumonia maintained on antibiotics. 3. Volume overload. Improving with diuresis. Status post paracentesis January 13, 2024 with 3.2 L drained. 4. Chronic kidney disease stage IIIb with baseline creatinine 1.4-1.6 secondary to multiple acute kidney injury episodes and cardiorenal syndrome. 5. Anemia. Iron deficiency noted. 6. Metabolic acidosis secondary to acute kidney injury and IV fluids. On oral bicarb. Plan: Stop IV Lasix. Add torsemide 40 mg once daily. Maintain potassium supplementation. Encouraged oral intake. Avoid nephrotoxins. Maintain IV iron. Maintain magnesium oxide. Okay to DC [place] catheter from nephrology standpoint. To be removed today. Repeat BMP and magnesium level 2 to 3 days postdischarge. Follow-up outpatient in 1 week. Advised patient to maintain low-salt diet and fluid restriction of less than 50 ounces per day upon discharge. To notify physician if develops worsening edema or gains more than 3 to 4 pounds in 1 week duration.
[2024-01-16 11:25] LABS: Glucose,Whole Blood 98 mg/dL (70-110)
[2024-01-16 16:35] LABS: Glucose,Whole Blood 149 mg/dL (70-110)
[2024-01-16 20:29] LABS: Glucose,Whole Blood 198 mg/dL (70-110)
[2024-01-17 06:07] LABS: Glucose,Whole Blood 135 mg/dL (70-110)
[2024-01-17] MEDS: TORSEMIDE 20 MG TAB PO SCH (07:15)
--- NOTE | 2024-01-17 09:51 | P.PN ---
Subjective Progress Note Date: 01/16/24 Principal diagnosis: Reason for follow-up is fever Patient is a 78-year-old female with a past medical history significant for atrial fibrillation coronary disease diabetes mellitus hypertension [place] patient has been brought into the hospital for evaluation of mental status changes fever and confusion patient also have a low-grade fever elevated white count CT abdomen shows ascites with the chest x-ray suggestive of right sided infiltrate and abdominal ultrasound with the debris's within the gallbladder. On today's evaluation that is 01/16/2024,the patient remains to be afebrile, patient is on room air not requiring supplemental oxygen and denies any shortness of breath no chest pain or cough.Patient denies having any nausea or vomiting, no abdominal pain and no diarrhea has been reported, patient has developed significant swelling and induration to the right upper extremity from a previous IV which has been discontinued. Patient did have a white count of 7.67 creat is 1.2 Objective - Vital Signs Vital signs: Vital Signs Temp 98.3 F 01/16/24 11:37 Pulse 70 01/16/24 12:01 Resp 15 01/16/24 11:37 BP 152/74 01/16/24 11:37 Pulse Ox 94 L 01/16/24 00:49 FiO2 Intake & Output 01/15/24 01/16/24 01/16/24 18:59 06:59 18:59 Output Total 1700 1200 150 Balance -1700 -1200 -150 Weight 83.007 kg Output: Urine 1700 1200 150 Uretheral ([place]) 75 Other: Voiding Method Indwelling Catheter Indwelling Catheter Indwelling Catheter - Exam Elderly female lying in bed no distress No tachypnea or accessory muscle respiration use Unlabored breathing clear auscultation anteriorly Abdominal soft mildly distended but no guarding rigidity Right upper extremity did have significant swelling induration which is slightly warm to touch - Labs CBC & Chem 7: 01/16/24 02:44 01/16/24 02:44 Labs: Abnormal Lab Results - Last 24 Hours (Table) 01/15/24 01/16/24 01/16/24 Range/Units 16:14 02:44 02:44 RBC 3.77 L (4.10-5.20) X 10*6/uL Hgb 10.1 L (12.0-15.0) g/dL Hct 32.9 L (37.2-46.3) % MCH 26.8 L (27.0-32.0) pg MCHC 30.7 L (32.0-37.0) g/dL RDW 17.3 H (11.5-14.5) % Est GFR (CKD-EPI) 46 L (>=60) Glucose 56 L (70-110) mg/dL POC Glucose (mg/dL) 123 H (70-110) mg/dL AST 41 H (13-35) U/L Alkaline Phosphatase 127 H (41-126) U/L Total Protein 5.9 L (6.2-8.2) g/dL Albumin 2.8 L (3.8-4.9) g/dL Albumin/Globulin Ratio 0.90 L (1.60-3.17) Ratio Microbiology - Last 24 Hours (Table) 01/13/24 10:35 Gram Stain - Preliminary Paracentesis Fluid Body Fluid Culture - Preliminary Assessment and Plan (1) Fever Current Visit: Yes Status: Acute Code(s): R50.9 - FEVER, UNSPECIFIED SNOME D Code(s): 772791516 (2) Phlebitis of right arm Current Visit: Yes Status: Acute Code(s): I80.8 - PHLEBITIS AND THROMBOPHLEBITIS OF OTHER SITES SNOMED Code(s): 978683360382379 Plan: 1patient presenting to the hospital with fever, abdominal pain in this patient who did have mildly elevated liver enzymes with question of possibly related to the gallbladder disease abdominal source, patient did have some infiltrate on the right side underlying pneumonia not entirely excluded 2-patient did have elevated procalcitonin of 10.70 3-patient has been eval by surgery concern for possible acute on chronic cholecystitis, patient is status post paracentesis, with white cells only 42 not behaving as SBP 4-patient has developed significant phlebitis to the right upper extremity likely due to the peripheral IV which has been discontinued as the patient not running any fever more likely not septic we will dong the area of redness apply cold compression and if overall improvement may be considered for discharge on oral Ceftin but hold discharge for today because of the new findings discussed with the nursing staff Dictation was produced using [employer] dictation software. please excuse any grammatical, word or spelling errors. Time with Patient: Less than 30
[2024-01-17 11:12] LABS: Glucose,Whole Blood 188 mg/dL (70-110)
--- NOTE | 2024-01-17 11:47 | P.PN ---
Subjective Patient is seen in follow-up for acute kidney injury on chronic kidney disease. Renal function stable. Nonoliguric. Denies chest pain or shortness of breath. Now on oral diuretics. Status post paracentesis January 13, 2024 with 3.2 L drained. Vital signs are stable. General: No acute distress. HEENT: Head exam is unremarkable. LUNGS: No audible rhonchi or wheezes. HEART: Rate and Rhythm are regular. ABDOMEN: Nontender. EXTREMITITES: 1+ edema. Objective - Vital Signs Vital signs: Vital Signs Temp 98.0 F 01/17/24 06:59 Pulse 70 01/17/24 08:56 Resp 16 01/17/24 08:56 BP 145/83 01/17/24 06:59 Pulse Ox 94 L 01/17/24 06:59 FiO2 Intake & Output 01/16/24 01/17/24 01/17/24 18:59 06:59 18:59 Output Total 150 Balance -150 Output: Urine 150 Uretheral ([place]) 75 Other: Voiding Method Indwelling Catheter Indwelling Catheter # Voids 1 # Bowel Movements 1 - Labs CBC & Chem 7: 01/16/24 02:44 01/16/24 02:44 Labs: Abnormal Lab Results - Last 24 Hours (Table) 01/16/24 01/16/24 01/17/24 Range/Units 16:34 20:27 06:05 POC Glucose (mg/dL) 149 H 198 H 135 H (70-110) mg/dL 01/17/24 Range/Units 11:11 POC Glucose (mg/dL) 188 H (70-110) mg/dL Microbiology - Last 24 Hours (Table) 01/13/24 10:35 Gram Stain - Preliminary Paracentesis Fluid Body Fluid Culture - Preliminary Assessment and Plan Plan: Assessment: 1. Acute kidney injury secondary to ATN secondary to hypotension. Diuretics have been held. No hydronephrosis noted on CAT scan. UA negative. Creatinine stable at 1.2 yesterday. 2. Right lung pneumonia maintained on antibiotics. 3. Volume overload. Improving with diuresis. Status post paracentesis January 13, 2024 with 3.2 L drained. 4. Chronic kidney disease stage IIIb with baseline creatinine 1.4-1.6 secondary to multiple acute kidney injury episodes and cardiorenal syndrome. 5. Anemia. Iron deficiency noted. Status post IV iron. 6. Metabolic acidosis secondary to acute kidney injury and IV fluids. On oral bicarb. Plan: Maintain torsemide. Maintain potassium supplementation. Encouraged oral intake. Avoid nephrotoxins. Maintain magnesium oxide. [place] catheter removed January 16, 2024. Has been voiding on her own. Repeat BMP and magnesium level 2 to 3 days postdischarge. Follow-up outpatient in 1 week. Advised patient to maintain low-salt diet and fluid restriction of less than 50 ounces per day upon discharge. To notify physician if develops worsening edema or gains more than 3 to 4 pounds in 1 week duration.
--- NOTE | 2024-01-17 13:47 | P.PN ---
Subjective Progress Note Date: 01/17/24 No acute events overnight. No abdominal pain. No nausea or vomiting. No fevers or chills. No shortness of breath or chest pain. Tolerating diet. Encephalitis overnight. Voiding without issue. Objective - Vital Signs Vital signs: Vital Signs Temp 98.0 F 01/17/24 06:59 Pulse 70 01/17/24 08:56 Resp 16 01/17/24 08:56 BP 145/83 01/17/24 06:59 Pulse Ox 94 L 01/17/24 06:59 FiO2 Intake & Output 01/16/24 01/17/24 01/17/24 18:59 06:59 18:59 Output Total 150 Balance -150 Output: Urine 150 Uretheral ([place]) 75 Other: Voiding Method Indwelling Catheter Indwelling Catheter # Voids 1 # Bowel Movements 1 - Exam Gen: resting comfortably Pulm: non-labored respirations Abd: Soft, non-tender, non-distended. No guarding/rebound/rigidity Extrem: no edema seen - Labs CBC & Chem 7: 01/16/24 02:44 01/16/24 02:44 Labs: Abnormal Lab Results - Last 24 Hours (Table) 01/16/24 01/16/24 01/17/24 Range/Units 16:34 20:27 06:05 POC Glucose (mg/dL) 149 H 198 H 135 H (70-110) mg/dL 01/17/24 Range/Units 11:11 POC Glucose (mg/dL) 188 H (70-110) mg/dL Microbiology - Last 24 Hours (Table) 01/13/24 10:35 Gram Stain - Preliminary Paracentesis Fluid Body Fluid Culture - Preliminary Assessment and Plan Assessment: Patient is a 78-year-old female who presents with chronic cholecystitis as well as abdominal ascites Plan: -Diet as tolerated -PRN pain and nausea control -Activity as tolerated -DVT/Gi PPx -Care per primary -No acute surgical intervention; okay to dc from surgical standpoint Lane Hoang M.D. General Surgery
--- NOTE | 2024-01-17 14:28 | P.PN ---
Subjective Progress Note Date: 01/17/24 Principal diagnosis: Reason for follow-up is fever Patient is a 78-year-old female with a past medical history significant for atrial fibrillation coronary disease diabetes mellitus hypertension [place] patient has been brought into the hospital for evaluation of mental status changes fever and confusion patient also have a low-grade fever elevated white count CT abdomen shows ascites with the chest x-ray suggestive of right sided infiltrate and abdominal ultrasound with the debris's within the gallbladder. On today's evaluation that is 01/17/2024, the patient continues to be afebrile, the patient is on room air and breathing comfortably, the Pt denies having any chest pain or cough, the patient denies having any abdominal pain no vomiting or any diarrhea right forearm area swelling induration has decreased in intensity, no drainage. No new lab has been repeated today Objective - Vital Signs Vital signs: Vital Signs Temp 98.0 F 01/17/24 06:59 Pulse 70 01/17/24 08:56 Resp 16 01/17/24 08:56 BP 145/83 01/17/24 06:59 Pulse Ox 94 L 01/17/24 06:59 FiO2 Intake & Output 01/16/24 01/17/24 01/17/24 18:59 06:59 18:59 Output Total 150 Balance -150 Output: Urine 150 Uretheral ([place]) 75 Other: Voiding Method Indwelling Catheter Indwelling Catheter # Voids 1 # Bowel Movements 1 - Exam Elderly female lying in bed no distress No tachypnea or accessory muscle respiration use Unlabored breathing clear auscultation anteriorly Abdominal soft mildly distended but no guarding rigidity Right upper extremity swelling induration has slightly decreased - Labs CBC & Chem 7: 01/16/24 02:44 01/16/24 02:44 Labs: Abnormal Lab Results - Last 24 Hours (Table) 01/16/24 01/16/24 01/17/24 Range/Units 16:34 20:27 06:05 POC Glucose (mg/dL) 149 H 198 H 135 H (70-110) mg/dL 01/17/24 Range/Units 11:11 POC Glucose (mg/dL) 188 H (70-110) mg/dL Microbiology - Last 24 Hours (Table) 01/13/24 10:35 Gram Stain - Preliminary Paracentesis Fluid Body Fluid Culture - Preliminary Assessment and Plan (1) Fever Current Visit: Yes Status: Acute Code(s): R50.9 - FEVER, UNSPECIFIED SNOMED Code(s): 893795408 (2) Phlebitis of right arm Current Visit: Yes Status: Acute Code(s): I80.8 - PHLEBITIS AND THROMBOPHLEBITIS OF OTHER SITES SNOMED Code(s): 724875945997419 Plan: 1patient presenting to the hospital with fever, abdominal pain in this patient who did have mildly elevated liver enzymes with question of possibly related to the gallbladder disease abdominal source, patient did have some infiltrate on the right side underlying pneumonia not entirely excluded 2-patient did have elevated procalcitonin of 10.70 3-patient has been eval by surgery concern for possible acute on chronic cholecystitis, patient is status post paracentesis, with white cells only 42 not behaving as SBP 4-patient has developed significant phlebitis to the right upper extremity likely due to the peripheral IV which has been discontinued likely phlebitis which has slightly decreased in intensity although stopping short course of Ceftin on discharge Dictation was produced using [employer] dictation software. please excuse any grammatical, word or spelling errors.
[2024-01-17 16:49] LABS: Glucose,Whole Blood 143 mg/dL (70-110)
--- NOTE | 2024-01-17 20:09 | P.PN ---
Subjective This is a pleasant 78 years old female who was admitted with acute on chronic cholecystitis that has been followed closely by surgical team. Patient was treated conservatively with IV antibiotic and fluid and bowel rest. Patient showed interval improvement. Patient also has evidence of ascites she underwent paracentesis with abdomen currently nondistended with no abdominal pain and she tolerates diet well. Patient discharged yesterday was about to be discharged however was found to have lump on the right upper forearm most likely phlebitis. The area demarcated and still red and swollen Patient currently covered with ceftriaxone No fever. No chest pain or dyspnea or other complaints Vitals and labs and images are reviewed in details Patient hemoglobin actually is improving from 8.2 up to 10.10, while patient on aspirin and Eliquis. But also patient on Protonix Objective - Vital Signs Vital signs: Vital Signs Temp 98.0 F 01/17/24 06:59 Pulse 70 01/17/24 08:56 Resp 16 01/17/24 08:56 BP 145/83 01/17/24 06:59 Pulse Ox 94 L 01/17/24 06:59 FiO2 Intake & Output 01/16/24 01/17/24 01/17/24 18:59 06:59 18:59 Output Total 150 Balance -150 Output: Urine 150 Uretheral (Mer[place]) 75 Other: Voiding Method Indwelling Catheter Indwelling Catheter # Voids 1 # Bowel Movements 1 - Exam GENERAL: The patient is alert and oriented x3, not in any acute distress. Well developed, well nourished. HEENT: Pupils are round and equally reacting to light. EOMI. No scleral icterus. No conjunctival pallor. Normocephalic, atraumatic. No pharyngeal erythema. No thyromegaly. CARDIOVASCULAR: S1 and S2 present. No murmurs, rubs, or gallops. PULMONARY: Chest is clear to auscultation, no wheezing , no crackles. ABDOMEN: Soft, nontender, nondistended, normoactive bowel sounds. No palpable organomegaly. MUSCULOSKELETAL: No joint swelling or deformity. -EXTREMITIES: No cyanosis, clubbing, or pedal edema. Small areas about 2 inches in diameter in the right upper forearm, red and swollen with demarcation NEUROLOGICAL: Gross neurological examination did not reveal any focal deficits. SKIN: No rashes. no petechiae. - Labs CBC & Chem 7: 01/16/24 02:44 01/16/24 02:44 Labs: Abnormal Lab Results - Last 24 Hours (Table) 01/16/24 01/16/24 01/17/24 Range/Units 16:34 20:27 06:05 POC Glucose (mg/dL) 149 H 198 H 135 H (70-110) mg/dL 01/17/24 Range/Units 11:11 POC Glucose (mg/dL) 188 H (70-110) mg/dL Microbiology - Last 24 Hours (Table) 01/13/24 10:35 Gram Stain - Preliminary Paracentesis Fluid Body Fluid Culture - Preliminary Assessment and Plan Assessment: Right forearm phlebitis Acute on chronic cholecystitis improved Ascites status post paracentesis Atrial fibrillation on Eliquis Coronary artery disease History of CVA/TIA History of deep venous thrombosis Diabetes mellitus Hypertension Osteoarthritis Plan: Continue with ceftriaxone with ID team recommendation to switch to Ceftin upon discharge Patient is on home dose of Eliquis 5 mg Also he is on aspirin however patient hemoglobin is improving slowly Nephrology team on the case and Demadex was added On aspirin surgery team on the case for cholecystitis and cleared the patient for discharge Labs and medication were reviewed.. Continue same treatment. Continue with symptomatic treatment. Resume home medication. Monitor labs and vitals. DVT and GI prophylaxis. Further recommendations as per clinical course of the patient DVT prophylaxis: Subcutaneous heparin GI Prophylaxis: Ppi Prognosis is guarded
[2024-01-17 20:54] LABS: Glucose,Whole Blood 140 mg/dL (70-110)
[2024-01-18 06:31] LABS: Glucose,Whole Blood 76 mg/dL (70-110)
[2024-01-18 09:30] LABS: Basophils # (A) 0.06 X 10*3/uL (0.00-0.10); Basophils % (A) 0.8 %; Eosinophils # (A) 0.49 X 10*3/uL (0.04-0.35); Eosinophils % (A) 6.6 %; Lymphocytes # (A) 1.53 X 10*3/uL (0.90-5.00); Lymphocytes % (A) 20.6 %; MCH 26.4 pg (27.0-32.0); Mean Platelet Volume 10.2 FL (9.5-12.2); Monocytes # (A) 0.66 X 10*3/uL (0.20-1.00); Monocytes % (A) 8.9 %; NRBC Per 100 WBC 0 X 10*3/uL (0.00-0.01); Neutrophils # (A) 4.61 X 10*3/uL (1.80-7.70); Neutrophils % (A) 62.3 %; Platelet Count 279 X 10*3/uL (140-440); RBC 3.41 X 10*6/uL (4.10-5.20); RDW 18.4 % (11.5-14.5); WBC 7.41 X 10*3/uL (4.50-10.00)
[2024-01-18 09:32] LABS: BUN/Creat Ratio 20.45 Ratio (12.00-20.00); Blood Urea Nitrogen 22.5 mg/dL (9.0-27.0); Calcium 8.5 mg/dL (8.7-10.3); Carbon Dioxide 25.5 mmol/L (21.6-31.8); Chloride 107 mmol/L (96-109); Glucose 68 mg/dL (70-110); Magnesium 1.7 mg/dL (1.5-2.4); Potassium 4.2 mmol/L (3.5-5.5); Sodium 142 mmol/L (135-145)
--- NOTE | 2024-01-18 10:13 | P.PN ---
Subjective Patient is seen in follow-up for acute kidney injury on chronic kidney disease. Renal function stable. Nonoliguric. Denies chest pain or shortness of breath. On oral diuretics. Status post paracentesis January 13, 2024 with 3.2 L drained. Vital signs are stable. General: No acute distress. HEENT: Head exam is unremarkable. LUNGS: No audible rhonchi or wheezes. HEART: Rate and Rhythm are regular. ABDOMEN: Nontender. EXTREMITITES: 1+ edema. Objective - Vital Signs Vital signs: Vital Signs Temp 97.8 F 01/18/24 06:50 Pulse 70 01/18/24 08:00 Resp 16 01/18/24 08:00 BP 145/64 01/18/24 06:50 Pulse Ox 96 01/18/24 06:50 FiO2 Intake & Output 01/17/24 01/18/24 01/18/24 18:59 06:59 18:59 Weight 112 kg Other: Voiding Method Indwelling Catheter Diaper Diaper Incontinent Incontinent # Voids 1 1 # Bowel Movements 1 1 - Labs CBC & Chem 7: 01/18/24 05:56 01/18/24 05:56 Labs: Abnormal Lab Results - Last 24 Hours (Table) 01/17/24 01/17/24 01/17/24 Range/Units 11:11 16:47 20:52 RBC (4.10-5.20) X 10*6/uL Hgb (12.0-15.0) g/dL Hct (37.2-46.3) % MCH (27.0-32.0) pg MCHC (32.0-37.0) g/dL RDW (11.5-14.5) % Immature Gran # (0.00-0.04) X 10*3/uL Eosinophils # (0.04-0.35) X 10*3/uL Est GFR (CKD-EPI) (>=60) BUN/Creatinine Ratio (12.00-20.00) Ratio Glucose (70-110) mg/dL POC Glucose (mg/dL) 188 H 143 H 140 H (70-110) mg/dL Calcium (8.7-10.3) mg/dL 01/18/24 01/18/24 Range/Units 05:56 05:56 RBC 3.41 L (4.10-5.20) X 10*6/uL Hgb 9.0 L (12.0-15.0) g/dL Hct 30.0 L (37.2-46.3) % MCH 26.4 L (27.0-32.0) pg MCHC 30.0 L (32.0-37.0) g/dL RDW 18.4 H (11.5-14.5) % Immature Gran # 0.06 H (0.00-0.04) X 10*3/uL Eosinophils # 0.49 H (0.04-0.35) X 10*3/uL Est GFR (CKD-EPI) 51 L (>=60) BUN/Creatinine Ratio 20.45 H (12.00-20.00) Ratio Glucose 68 L (70-110) mg/dL POC Glucose (mg/dL) (70-110) mg/dL Calcium 8.5 L (8.7-10.3) mg/dL Microbiology - Last 24 Hours (Table) 01/13/24 10:35 Gram Stain - Final Paracentesis Fluid Body Fluid Culture - Final Assessment and Plan Plan: Assessment: 1. Acute kidney injury secondary to ATN secondary to hypotension. No hydronephrosis noted on CAT scan. UA negative. Renal function improved. Creatinine 1.1. 2. Right lung pneumonia maintained on antibiotics. 3. Volume overload. Improving with diuresis. Status post paracentesis January 13, 2024 with 3.2 L drained. 4. Chronic kidney disease stage IIIb with baseline creatinine 1.4-1.6 secondary to multiple acute kidney injury episodes and cardiorenal syndrome. 5. Anemia. Iron deficiency noted. Status post IV iron. 6. Metabolic acidosis secondary to acute kidney injury and IV fluids. On oral bicarb. Plan: Maintain torsemide. Maintain potassium supplementation. Encouraged oral intake. Avoid nephrotoxins. Maintain magnesium oxide. Merida catheter removed January 16, 2024. Has been voiding on her own. Repeat BMP and magnesium level 2 to 3 days postdischarge. Follow-up outpatient in 1 week. Advised patient to maintain low-salt diet and fluid restriction of less than 50 ounces per day upon discharge. To notify physician if develops worsening edema or gains more than 3 to 4 pounds in 1 week duration.
--- NOTE | 2024-01-18 11:09 | P.PN ---
Subjective Progress Note Date: 01/18/24 Principal diagnosis: Ascites Patient doing well today. Apparently she was kept in the hospital because of the thrombophlebitis right upper extremity. Denies abdominal pain. Peritoneal cultures finalized as negative. Objective - Vital Signs Vital signs: Vital Signs Temp 97.8 F 01/18/24 06:50 Pulse 70 01/18/24 08:00 Resp 16 01/18/24 08:00 BP 145/64 01/18/24 06:50 Pulse Ox 96 01/18/24 06:50 FiO2 Intake & Output 01/17/24 01/18/24 01/18/24 18:59 06:59 18:59 Weight 112 kg Other: Voiding Method Indwelling Catheter Diaper Diaper Incontinent Incontinent # Voids 1 1 # Bowel Movements 1 1 - Exam Abdomen: Soft, nontender, nondistended - Labs CBC & Chem 7: 01/18/24 05:56 01/18/24 05:56 Labs: Abnormal Lab Results - Last 24 Hours (Table) 01/17/24 01/17/24 01/17/24 Range/Units 11:11 16:47 20:52 RBC (4.10-5.20) X 10*6/uL Hgb (12.0-15.0) g/dL Hct (37.2-46.3) % MCH (27.0-32.0) pg MCHC (32.0-37.0) g/dL RDW (11.5-14.5) % Immature Gran # (0.00-0.04) X 10*3/uL Eosinophils # (0.04-0.35) X 10*3/uL Est GFR (CKD-EPI) (>=60) BUN/Creatinine Ratio (12.00-20.00) Ratio Glucose (70-110) mg/dL POC Glucose (mg/dL) 188 H 143 H 140 H (70-110) mg/dL Calcium (8.7-10.3) mg/dL 01/18/24 01/18/24 Range/Units 05:56 05:56 RBC 3.41 L (4.10-5.20) X 10*6/uL Hgb 9.0 L (12.0-15.0) g/dL Hct 30.0 L (37.2-46.3) % MCH 26.4 L (27.0-32.0) pg MCHC 30.0 L (32.0-37.0) g/dL RDW 18.4 H (11.5-14.5) % Immature Gran # 0.06 H (0.00-0.04) X 10*3/uL Eosinophils # 0.49 H (0.04-0.35) X 10*3/uL Est GFR (CKD-EPI) 51 L (>=60) BUN/Creatinine Ratio 20.45 H (12.00-20.00) Ratio Glucose 68 L (70-110) mg/dL POC Glucose (mg/dL) (70-110) mg/dL Calcium 8.5 L (8.7-10.3) mg/dL Microbiology - Last 24 Hours (Table) 01/13/24 10:35 Gram Stain - Final Paracentesis Fluid Body Fluid Culture - Final Assessment and Plan (1) Abdominal pain Narrative/Plan: 78-year-old female with admission for abdominal pain. Patient had improvement in her symptoms after ascites was drained. Fluid studies negative thus far. Will sign off. Please reconsult if needed. Current Visit: Yes Status: Acute Code(s): R10.9 - UNSPECIFIED ABDOMINAL PAIN SNOMED Code(s): 94437643
[2024-01-18 11:18] LABS: Glucose,Whole Blood 93 mg/dL (70-110)
--- NOTE | 2024-01-18 12:45 | P.PN ---
Subjective This is a pleasant 78 years old female who was admitted with acute on chronic cholecystitis that has been followed closely by surgical team. Patient was treated conservatively with IV antibiotic and fluid and bowel rest. Patient showed interval improvement. Patient also has evidence of ascites she underwent paracentesis with abdomen currently nondistended with no abdominal pain and she tolerates diet well. Patient yesterday was about to be discharged however was found to have lump on the right upper forearm most likely phlebitis. The area demarcated and still red and swollen Patient currently covered with ceftriaxone No fever. No chest pain or dyspnea or other complaints Vitals and labs and images are reviewed in details Patient hemoglobin actually is improving from 8.2 up to 10.10, while patient on aspirin and Eliquis. But also patient on Protonix 01/17 Patient overall doing well. Her right forearm round area of redness is imp roving and regressing. Currently she remains on ceftriaxone Surgery team will follow up for abdominal pain sign of the case However patient hemoglobin dropped from 10 over the last 2 days to 9.0 today. She is also on aspirin and Eliquis 5 mg. Patient states her last colonoscopy was about 5 years ago. Because of this we are going to check occult blood in the stool to rule out acute GI bleed. If it is positive then we may reconsult surgery team or GI service. Monitor hemoglobin tomorrow Continue with Protonix Discussed the plan with the patient and she is agreeable Objective - Vital Signs Vital signs: Vital Signs Temp 97.8 F 01/18/24 06:50 Pulse 70 01/18/24 08:00 Resp 16 01/18/24 08:00 BP 145/64 01/18/24 06:50 Pulse Ox 96 01/18/24 06:50 FiO2 Intake & Output 01/17/24 01/18/24 01/18/24 18:59 06:59 18:59 Weight 112 kg Other: Voiding Method Indwelling Catheter Diaper Diaper Incontinent Incontinent # Voids 1 1 1 # Bowel Movements 1 1 1 - Exam GENERAL: The patient is alert and oriented x3, not in any acute distress. Well developed, well nourished. HEENT: Pupils are round and equally reacting to light. EOMI. No scleral icterus. No conjunctival pallor. Normocephalic, atraumatic. No pharyngeal erythema. No thyromegaly. CARDIOVASCULAR: S1 and S2 present. No murmurs, rubs, or gallops. PULMONARY: Chest is clear to auscultation, no wheezing , no crackles. ABDOMEN: Soft, nontender, nondistended, normoactive bowel sounds. No palpable organomegaly. MUSCULOSKELETAL: No joint swelling or deformity. -EXTREMITIES: No cyanosis, clubbing, or pedal edema. Small areas about 2 inches in diameter in the right upper forearm, red and swollen with demarcation NEUROLOGICAL: Gross neurological examination did not reveal any focal deficits. SKIN: No rashes. no petechiae. - Labs CBC & Chem 7: 01/18/24 05:56 01/18/24 05:56 Labs: Abnormal Lab Results - Last 24 Hours (Table) 01/17/24 01/17/24 01/18/24 Range/Units 16:47 20:52 05:56 RBC (4.10-5.20) X 10*6/uL Hgb (12.0-15.0) g/dL Hct (37.2-46.3) % MCH (27.0-32.0) pg MCHC (32.0-37.0) g/dL RDW (11.5-14.5) % Immature Gran # (0.00-0.04) X 10*3/uL Eosinophils # (0.04-0.35) X 10*3/uL Est GFR (CKD-EPI) 51 L (>=60) BUN/Creatinine Ratio 20.45 H (12.00-20.00) Ratio Glucose 68 L (70-110) mg/dL POC Glucose (mg/dL) 143 H 140 H (70-110) mg/dL Calcium 8.5 L (8.7-10.3) mg/dL 01/18/24 Range/Units 05:56 RBC 3.41 L (4.10-5.20) X 10*6/uL Hgb 9.0 L (12.0-15.0) g/dL Hct 30.0 L (37.2-46.3) % MCH 26.4 L (27.0-32.0) pg MCHC 30.0 L (32.0-37.0) g/dL RDW 18.4 H (11.5-14.5) % Immature Gran # 0.06 H (0.00-0.04) X 10*3/uL Eosinophils # 0.49 H (0.04-0.35) X 10*3/uL Est GFR (CKD-EPI) (>=60) BUN/Creatinine Ratio (12.00-20.00) Ratio Glucose (70-110) mg/dL POC Glucose (mg/dL) (70-110) mg/dL Calcium (8.7-10.3) mg/dL Microbiology - Last 24 Hours (Table) 01/13/24 10:35 Gram Stain - Final Paracentesis Fluid Body Fluid Culture - Final Assessment and Plan Assessment: Acute on chronic anemia, iron deficiency anemia Right forearm phlebitis Acute on chronic cholecystitis improved Ascites status post paracentesis Atrial fibrillation on Eliquis Coronary artery disease History of CVA/TIA History of deep venous thrombosis Diabetes mellitus Hypertension Osteoarthritis Plan: Check occult blood in stool and monitor hemoglobin while she is on aspirin and Eliquis. If occult blood is positive then I would recommend general surgery or GI consult tomorrow. Continue with ceftriaxone with ID team recommendation to switch to Ceftin upon discharge Patient is on home dose of Eliquis 5 mg Also he is on aspirin however patient hemoglobin is improving slowly Nephrology team on the case and Demadex was added On aspirin surgery team on the case for cholecystitis and cleared the patient for discharge Labs and medication were reviewed.. Continue same treatment. Continue with symptomatic treatment. Resume home medication. Monitor labs and vitals. DVT and GI prophylaxis. Further recommendations as per clinical course of the patient DVT prophylaxis: Subcutaneous heparin GI Prophylaxis: Ppi Prognosis is guarded
[2024-01-18] MEDS: FERROUS SULFATE 325 MG TAB PO SCH (13:37)
--- NOTE | 2024-01-18 15:17 | P.PN ---
Subjective Progress Note Date: 01/18/24 Principal diagnosis: Reason for follow-up is fever Patient is a 78-year-old female with a past medical history significant for atrial fibrillation coronary disease diabetes mellitus hypertension CA patient has been brought into the hospital for evaluation of mental status changes fever and confusion patient also have a low-grade fever elevated white count CT abdomen shows ascites with the chest x-ray suggestive of right sided infiltrate and abdominal ultrasound with the debris's within the gallbladder. On today's evaluation that is 01/18/2024, Patient is afebrile patient is currently on room air and denies having any shortness of breath, the patient denies any chest pain or cough, the patient denies any nausea vomiting did not have any abdominal pain and no diarrhea patient right forearm swelling redness and decreased no drainage. Patient white count 7.41 creatinine is 1.1 blood culture and peritoneal fluid culture have been negative Objective - Vital Signs Vital signs: Vital Signs Temp 98.4 F 01/18/24 13:23 Pulse 76 01/18/24 13:23 Resp 17 01/18/24 13:23 BP 148/65 01/18/24 13:23 Pulse Ox 95 01/18/24 13:23 FiO2 Intake & Output 01/17/24 01/18/24 01/18/24 18:59 06:59 18:59 Weight 112 kg Other: Voiding Method Indwelling Catheter Diaper Diaper Incontinent Incontinent # Voids 1 1 1 # Bowel Movements 1 1 1 - Exam Elderly female lying in bed no distress No tachypnea or accessory muscle respiration use Unlabored breathing clear auscultation anteriorly Abdominal soft mildly distended but no guarding rigidity Right upper extremity swelling induration has slightly decreased - Labs CBC & Chem 7: 01/18/24 05:56 01/18/24 05:56 Labs: Abnormal Lab Results - Last 24 Hours (Table) 01/17/24 01/17/24 01/18/24 Range/Units 16:47 20:52 05:56 RBC (4.10-5.20) X 10*6/uL Hgb (12.0-15.0) g/dL Hct (37.2-46.3) % MCH (27.0-32.0) pg MCHC (32.0-37.0) g/dL RDW (11.5-14.5) % Immature Gran # (0.00-0.04) X 10*3/uL Eosinophils # (0.04-0.35) X 10*3/uL Est GFR (CKD-EPI) 51 L (>=60) BUN/Creatinine Ratio 20.45 H (12.00-20.00) Ratio Glucose 68 L (70-110) mg/dL POC Glucose (mg/dL) 143 H 140 H (70-110) mg/dL Calcium 8.5 L (8.7-10.3) mg/dL 01/18/24 Range/Units 05:56 RBC 3.41 L (4.10-5.20) X 10*6/uL Hgb 9.0 L (12.0-15.0) g/dL Hct 30.0 L (37.2-46.3) % MCH 26.4 L (27.0-32.0) pg MCHC 30.0 L (32.0-37.0) g/dL RDW 18.4 H (11.5-14.5) % Immature Gran # 0.06 H (0.00-0.04) X 10*3/uL Eosinophils # 0.49 H (0.04-0.35) X 10*3/uL Est GFR (CKD-EPI) (>=60) BUN/Creatinine Ratio (12.00-20.00) Ratio Glucose (70-110) mg/dL POC Glucose (mg/dL) (70-110) mg/dL Calcium (8.7-10.3) mg/dL Microbiology - Last 24 Hours (Table) 01/13/24 10:35 Gram Stain - Final Paracentesis Fluid Body Fluid Culture - Final Assessment and Plan (1) Fever Current Visit: Yes Status: Acute Code(s): R50.9 - FEVER, UNSPECIFIED SNOMED Code(s): 601910639 (2) Phlebitis of right arm Current Visit: Yes Status: Acute Code(s): I80.8 - PHLEBITIS AND THROMBOPHLEBITIS OF OTHER SITES SNOMED Code(s): 149048881269668 Plan: 1patient presenting to the hospital with fever, abdominal pain in this patient who did have mildly elevated liver enzymes with question of possibly related to the gallbladder disease abdominal source, patient did have some infiltrate on the right side underlying pneumonia not entirely excluded 2-patient did have elevated procalcitonin of 10.70 3-patient has been eval by surgery concern for possible acute on chronic cholecystitis, patient is status post paracentesis, with white cells only 42 not behaving as SBP and subsequent culture have been negative 4-patient has developed significant phlebitis to the right upper extremity likely due to the peripheral IV which has been discontinued likely phlebitis does not look septic phlebitis and has shown improvement she is on Rocephin finishing therapy with a 7-day course of oral Ceftin on discharge Dictation was produced using [employer] software. please excuse any grammatical, word or spelling errors. Time with Patient: Less than 30
[2024-01-18 16:24] LABS: Glucose,Whole Blood 127 mg/dL (70-110)
[2024-01-18 21:06] LABS: Glucose,Whole Blood 174 mg/dL (70-110)
[2024-01-19 06:32] LABS: Glucose,Whole Blood 76 mg/dL (70-110)
[2024-01-19 07:36] VITALS: BP 158/69; PULSE 67; RESP 16; TEMP 98.5
[2024-01-19 08:10] LABS: Glucose,Whole Blood 154 mg/dL (70-110)
--- NOTE | 2024-01-19 21:08 | P.PN ---
Subjective agent is seen for follow-up for acute kidney injury and chronic kidney disease. Overall feels better. No significant complaints today. Serum creatinine at 1.1 Objective - Vital Signs Vital signs: Vital Signs Temp 98.5 F 01/19/24 07:04 Pulse 67 01/19/24 07:04 Resp 16 01/19/24 10:28 BP 158/69 01/19/24 07:04 Pulse Ox 95 01/19/24 07:04 FiO2 Intake & Output 01/19/24 01/19/24 01/20/24 06:59 18:59 06:59 Weight 108.5 kg Other: Voiding Method Diaper Diaper Incontinent Incontinent # Voids 1 1 - Exam patient is awake, comfortable, no acute distress. Examination of the heart S1 and S2 Examination of the lungs decreased breath sounds at the bases Abdomen is soft nontender Examination of lower extremities shows edema trace edema - Labs CBC & Chem 7: 01/18/24 05:56 01/18/24 05:56 Labs: Abnormal Lab Results - Last 24 Hours (Table) 01/18/24 01/19/24 Range/Units 21:05 08:08 POC Glucose (mg/dL) 174 H 154 H (70-110) mg/dL Assessment and Plan Assessment: 1. Acute kidney injury secondary to ATN secondary to hypotension. No hydronephrosis noted on CAT scan. UA negative. Renal function improved. Creatinine 1.1. 2. Right lung pneumonia maintained on antibiotics. 3. Volume overload. Improving with diuresis. Status post paracentesis January 13, 2024 with 3.2 L drained. 4. Chronic kidney disease stage IIIb with baseline creatinine 1.4-1.6 secondary to multiple acute kidney injury episodes and cardiorenal syndrome. 5. Anemia. Iron deficiency noted. Status post IV iron. 6. Metabolic acidosis secondary to acute kidney injury and IV fluids. On oral bicarb. Plan: Monitor labs as outpatient. Continue with oral sodium bicarb.
== END 2024-01-19 10:46 | disposition home or self-care (01) | DRG 444 ==
LOC: EC 15:10 → 4SSUR 19:48
PROVIDERS: ADMIT Family Medicine; ATTEND Family Medicine
PROC: 0W9G3ZX Drainage of Peritoneal Cavity, Percutaneous Approach, Diagnostic (ICD-10-PCS; principal; 2024-01-13)
DX: K81.2 Acute cholecystitis with chronic cholecystitis (principal); J18.9 Pneumonia, unspecified organism; N17.0 Acute kidney failure with tubular necrosis; R18.8 Other ascites; I50.32 Chronic diastolic (congestive) heart failure; I13.0 Hypertensive heart and chronic kidney disease with heart failure and stage 1 through stage 4 chronic kidney disease, or unspecified chronic kidney disease; E87.20 Acidosis, unspecified; T82.898A Other specified complication of vascular prosthetic devices, implants and grafts, initial encounter; D63.1 Anemia in chronic kidney disease; I80.8 Phlebitis and thrombophlebitis of other sites; L98.411 Non-pressure chronic ulcer of buttock limited to breakdown of skin; L98.421 Non-pressure chronic ulcer of back limited to breakdown of skin; I95.9 Hypotension, unspecified; E11.22 Type 2 diabetes mellitus with diabetic chronic kidney disease; N18.32 Chronic kidney disease, stage 3b; D50.9 Iron deficiency anemia, unspecified; I48.91 Unspecified atrial fibrillation; I25.10 Atherosclerotic heart disease of native coronary artery without angina pectoris; F41.9 Anxiety disorder, unspecified; M19.90 Unspecified osteoarthritis, unspecified site; Y74.2 Prosthetic and other implants, materials and accessory general hospital and personal-use devices associated with adverse incidents; I25.2 Old myocardial infarction; Z86.16 Personal history of COVID-19; Z74.01 Bed confinement status; Z79.4 Long term (current) use of insulin; Z79.01 Long term (current) use of anticoagulants; Z79.82 Long term (current) use of aspirin; Z79.899 Other long term (current) drug therapy; Z88.5 Allergy status to narcotic agent; Z88.8 Allergy status to other drugs, medicaments and biological substances; Z91.040 Latex allergy status; Z86.718 Personal history of other venous thrombosis and embolism; Z86.73 Personal history of transient ischemic attack (TIA), and cerebral infarction without residual deficits; Z90.710 Acquired absence of both cervix and uterus; Z82.49 Family history of ischemic heart disease and other diseases of the circulatory system; Z80.1 Family history of malignant neoplasm of trachea, bronchus and lung
CPT/HCPCS: 36415; 49083; 51702; 71045; 74176; 76705; 80048; 80053; 80074; 81001; 82140; 82150; 83036; 83540; 83550; 83615; 83690; 83735; 84100; 84145; 84157; 85025; 85027; 85610; 86140; 87040; 87070; 87075; 87205; 87449; 87636; 89050; 96361; 96365; 96366; 96367; 99285

== ENCOUNTER 2024-01-30 16:31 | Observation (INO) | payer MEDICARE, OTHER ==
--- NOTE | 2024-01-30 17:14 | ED ---
Recheck HPI - General Chief Complaint: Recheck/Abnormal Lab/Rx Stated Complaint: fluid retention Time Seen by Provider: 01/30/24 16:34 Source: patient, family, EMS, RN notes reviewed Mode of arrival: EMS Limitations: no limitations - History of Present Illness Initial Comments: This is an 78-year-old female who presents to the emergency department for ab dominal pain and distention. Patient had a paracentesis couple of weeks ago due to ascites buildup. She did well initially, but states that the fluid has started to build up again over the last couple of days causing increasing pain. That was the first paracentesis she had had a couple of weeks ago. Denies any chest pain or shortness of breath associated with this. her son called her PCP and was advised to bring her to the emergency department for further evaluation and possible additional paracentesis. - Related Data Home Medications Medication Instructions Recorded Confirmed Apixaban [Eliquis] 5 mg PO BID 08/13/20 01/30/24 Sacubitril/Valsartan [Entresto 24 1 tab PO BID 01/12/22 01/30/24 mg-26 mg Tablet] Omeprazole [PriLOSEC] 20 mg PO DAILY 03/05/22 01/30/24 Ipratropium [place] [Atrovent Hfa] 2 puff INHALATION RT-QID 09/09/22 01/30/24 ALPRAZolam [Xanax] 0.25 mg PO TID PRN 05/30/23 01/30/24 Ammonium Lactate Lotion 1 applic TOPICAL BID PRN 05/30/23 01/30/24 [Lac-Hydrin 12% Lotion] Aspirin 81 mg PO DAILY 05/30/23 01/30/24 Atorvastatin [Lipitor] 20 mg PO DAILY 05/30/23 01/30/24 Cholecalciferol [Vitamin D3 (25 25 mcg PO DAILY 05/30/23 01/30/24 Mcg = 1000 Iu)] Escitalopram [Lexapro] 10 mg PO DAILY 05/30/23 01/30/24 Furosemide [Lasix] 80 mg PO DAILY 05/30/23 01/30/24 Insulin Glargine,Hum.rec.anlog 16 - 18 units SQ HS 05/30/23 01/30/24 [Al Reynolds] Insulin Glargine,Hum.rec.anlog 24 units SQ DAILY 05/30/23 01/30/24 [Toubrenda Sims Solostar] Multivit-Min/FA/Lycopen/Lutein 1 tab PO DAILY 05/30/23 01/30/24 [Centrum Silver Tablet] Potassium Chloride ER [K-Dur 20] 20 meq PO DAILY 05/30/23 01/30/24 Albuterol Inhaler [Ventolin Hfa 2 puff INHALATION RT-QID PRN 01/09/24 01/30/24 Inhaler] Ascorbic Acid [Vitamin C] 1,000 mg PO DAILY 01/09/24 01/30/24 Vit C/E/Zn/Coppr/Lutein/Zeaxan 1 cap PO BID 01/09/24 01/30/24 [Preservision Areds 2 Softgel] carvediloL [Coreg] 3.125 mg PO BID 01/09/24 01/30/24 Metoprolol Tartrate [Lopressor] 12.5 mg PO BID 01/30/24 01/30/24 Previous Rx's Medication Instructions Recorded Magnesium Oxide [Mag-Ox] 400 mg PO DAILY #30 tab 01/16/24 Nystatin 100,000Unit/gm Cream 1 applic TOPICAL BID #60 g 01/16/24 [Mycostatin Cream] Sodium Bicarbonate Tab 650 mg PO BID #60 tab 01/16/24 Torsemide [Demadex] 40 mg PO DAILY #30 tab 01/16/24 Allergies Allergy/AdvReac Type Severity Reaction Status Date / Time shellfish derived [Shellfish] Allergy Severe vomiting Verified 01/30/24 18:23 -very ill adhesive Allergy skin red Verified 01/30/24 18:23 and murguia, tears skin aluminum Allergy skin turns Verified 01/30/24 18:23 black, passes out Antihistamines - Allergy heart Verified 01/30/24 18:23 Ethylenediamine palpitations codeine Allergy migraines Verified 01/30/24 18:23 epinephrine Allergy heart Verified 01/30/24 18:23 palpitations fluticasone [From Flonase] Allergy Unknown Verified 01/30/24 18:23 hydrogen peroxide Allergy murguia and Verified 01/30/24 18:23 causes infection latex Allergy passes out Verified 01/30/24 18:23 nickel Allergy turns skin Verified 01/30/24 18:23 black and passes out procaine HCl [From Novocain] Allergy passed Verified 01/30/24 18:23 out- due to epinephrine in it. thiopental sodium Allergy needed cpr Verified 01/30/24 18:23 [From Pentothal] resusitation methocarbamol [From Robaxin] AdvReac Hallucinati Verified 01/30/24 18:23 ons zinc oxide AdvReac Rash/Hives Verified 01/30/24 18:23 surgical felicita Allergy Severe had to be Uncoded 01/30/24 18:23 removed 2 days post-op petroleum products AdvReac passes out Uncoded 01/30/24 18:23 or does not feel well. (diesel, oils) Review of Systems ROS Statement: Those systems with pertinent positive or pertinent negative responses have been documented in the HPI. ROS Other: All systems not noted in ROS Statement are negative. Past Medical History Past Medical History: Atrial Fibrillation, Coronary Artery Disease (CAD), CVA/TIA, Diabetes Mellitus, Deep Vein Thrombosis (DVT), Hypertension, Myocardial Infarction ([place]), Osteoarthritis (OA) Additional Past Medical History / Comment(s): hx tia, hx stroke behind left eye., lt eye macular , states hospitalized with Covid April 2019 with life support and stage 3 kidney failure., hx of fall with hip fx and surgery 01/13/22 went to [facility] for Rehab. DVT during ., varicose veins, states painful sore left heel., hx of t.b. as a child with scarring on lungs. Last Myocardial Infarction Date:: unknown date History of Any Multi-Drug Resistant Organisms: MRSA, VRE Date of last positivie culture/infection: 09/09/22 MRSA & VRE ([facility]-Scanned) MDRO Source:: Blood Culture Past Surgical History: Adenoidectomy, Hysterectomy, Orthopedic Surgery, Tonsillectomy, Tubal Ligation Additional Past Surgical History / Comment(s): pilonidal cyst twice as child, rt knee arthroscopy, krystyna cataracts, krystyna great toe sx, ORIF Left hip (01/13/22) Past Anesthesia/Blood Transfusion Reactions: Previous Problems w/ Anesthesia, Postoperative Nausea & Vomiting (PONV) Additional Past Anesthesia/Blood Transfusion Reaction / Comment(s): difficulty waking up after sx. clausterphobia. 1961 blood transfusion(during child ) pt stated had palpitations after 2nd unit given Past Psychological History: Anxiety Smoking Status: Never smoker Past Alcohol Use History: None Reported Past Drug Use History: None Reported - Past Family History Mother Family Medical History: Cancer Additional Family Medical History / Comment(s): lung cancer Father Family Medical History: Coronary Artery Disease (CAD) Additional Family Medical History / Comment(s): heart disease, kidney disese General Exam Limitations: no limitations General appearance: alert, in no apparent distress Head exam: Present: atraumatic, normocephalic, normal inspection Respiratory exam: Present: normal lung sounds bilaterally. Absent: respiratory distress, wheezes, rales, rhonchi, stridor Cardiovascular Exam: Present: regular rate, normal rhythm, normal heart sounds. Absent: systolic murmur, diastolic murmur, rubs, gallop, clicks GI/Abdominal exam: Present: distended, normal bowel sounds. Absent: tenderness Neurological exam: Present: alert, oriented X3, CN II-XII intact Psychiatric exam: Present: normal affect, normal mood Skin exam: Present: warm, dry, intact, normal color. Absent: rash Course Vital Signs 01/30/24 01/30/24 01/30/24 16:41 21:00 23:00 Temperature 98.2 F Pulse Rate 83 74 50 L Respiratory 17 16 16 Rate Blood Pressure 150/90 148/80 120/61 O2 Sat by Pulse 96 96 95 Oximetry Medical Decision Making - Medical Decision Making This is an 78 year old female who presents to the emergency department for abdominal pain and distention. Was pt. sent in by a medical professional or institution? @ -No Did you speak to anyone other than the patient for history? @ -No Did you review nursing and triage notes? @ -Yes, and I agree, it is accurate with regards to the patient's symptoms. Were old charts reviewed? @ -No Differential Diagnosis? @ -Differential Abdominal Pain Women: Appendicitis, Cholecystitis, diverticulosis, ischemic bowel, pancreatitis, hepatitis, UTI, gastroenteritis, AAA, incarcerated hernia, bowel obstruction, constipation, inflammatory bowel, hepatitis, peptic ulcer disease, splenic infarction, perforated viscus, vulvitis, ovarian torsion, PID, kidney stone, placenta abruption, this is not meant to be an all-inclusive list EKG interpreted by me (3pts min.)? @ -EKG interpreted by me demonstrating the following: Sinus rhythm. Ve ntricular rate 66 bpm, [place] interval 199 ms, QRS duration 129 ms, QTc 430 ms. X-rays interpreted by me (1pt min.)? @ -Not obtained CT interpreted by me (1pt min.)? @ -CT scan of the abdomen and pelvis obtained. My interpretation identifies ascites. U/S interpreted by me (1pt. min.)? @ -Not obtained What testing was considered but not performed? (CT, X-rays, U/S, labs)? Why? @ -None What meds were considered but not given? Why? @ -None Did you discuss the management of the patient with other professionals? @ -Yes, Dr. Roque, who accepts the patient for admission Did you reconcile home meds? @ -Yes Was smoking cessation discussed for >3mins.? @ -No Was critical care preformed (if so, how long)? @ -No Were there social determinants of health that impacted care today? How? (Homelessness, low income, unemployed, alcoholism, drug addiction, transport ation, low edu. Level, literacy, decrease access to med. care, retirement, rehab)? @ -No Was there de-escalation of care discussed even if they declined? (Discuss DNR or withdrawal of care, Hospice)? @ -No What co-morbidities impacted this encounter? (DM, HTN, Smoking, COPD, CAD, Cancer, CVA, Hep., AIDS, mental health diagnosis, sleep apnea, morbid obesity)? @ -Cirrhosis Was patient admitted / discharged? @ -Admitted. Lab work demonstrates mildly elevated LFTs consistent with history of cirrhosis. CT scan of the abdomen and pelvis demonstrates moderate ascites. Patient's abdomen was distended and she was fairly uncomfortable on exam. We discussed that based on the level of ascites she has at this point, a paracentesis is not necessarily required. However she states that she is fairly uncomfortable and would like to proceed with the paracentesis. Patient admitted to medicine for therapeutic paracentesis. Consult placed for IR and patient kept NPO after midnight. Case discussed with ED attending, Dr. Dumont. Undiagnosed new problem with uncertain prognosis? @ -None Drug Therapy requiring intensive monitoring for toxicity (Heparin, Nitro, Insulin, Cardizem)? @ -None Were any procedures done? @ -None Diagnosis/symptom? @ -Ascites, abdominal pain Acute, or Chronic, or Acute on Chronic? @ -Acute Uncomplicated (without systemic symptoms) or Complicated (systemic symptoms)? @ -Uncomplicated Side effects of treatment? @ -None Exacerbation, Progression, or Severe Exacerbation] @ -Not applicable Poses a threat to life or bodily function? @ -No - Lab Data Result diagrams: 01/30/24 18:21 01/30/24 18:21 Lab Results 01/30/24 01/30/24 01/30/24 Range/Units 18:21 18:21 18:21 WBC 6.3 (3.8-10.6) k/uL RBC 3.95 (3.80-5.40) m/uL Hgb 11.3 L (11.4-16.0) gm/dL Hct 35.9 (34.0-46.0) % MCV 90.7 (80.0-100.0) fL MCH 28.6 (25.0-35.0) pg MCHC 31.5 (31.0-37.0) g/dL RDW 18.2 H (11.5-15.5) % Plt Count 225 (150-450) k/uL MPV 8.0 Neutrophils % 64 % Lymphocytes % 21 % Monocytes % 7 % Eosinophils % 6 % Basophils % 1 % Neutrophils # 4.0 (1.3-7.7) k/uL Lymphocytes # 1.3 (1.0-4.8) k/uL Monocytes # 0.4 (0-1.0) k/uL Eosinophils # 0.4 (0-0.7) k/uL Basophils # 0.1 (0-0.2) k/uL Hypochromasia Moderate Anisocytosis Slight PT 11.9 (10.0-12.5) sec INR 1.1 (<1.2) APTT 27.8 (22.0-30.0) sec Sodium 140 (137-145) mmol/L Potassium 4.8 (3.5-5.1) mmol/L Chloride 107 (98-107) mmol/L Carbon Dioxide 28 (22-30) mmol/L Anion Gap 5 mmol/L BUN 33 H (7-17) mg/dL Creatinine 1.07 H (0.52-1.04) mg/dL Est GFR (CKD-EPI)AfAm 57 (>60 ml/min/1.73 sqM) Est GFR (CKD-EPI)NonAf 49 (>60 ml/min/1.73 sqM) Glucose 122 H (74-99) mg/dL Calcium 8.5 (8.4-10.2) mg/dL Total Bilirubin 0.6 (0.2-1.3) mg/dL AST 52 H (14-36) U/L ALT 24 (4-34) U/L Alkaline Phosphatase 135 H (38-126) U/L Total Protein 6.2 L (6.3-8.2) g/dL Albumin 2.8 L (3.5-5.0) g/dL - Radiology Data Radiology results: report reviewed, image reviewed Disposition Clinical Impression: Abdominal pain, Cirrhosis of liver with ascites Disposition: ADMITTED IP TO THIS HOSP
[2024-01-30 18:43] LABS: Anisocytosis Slight; Basophils # (A) 0.1 k/uL (0-0.2); Basophils % (A) 1 %; Eosinophils # (A) 0.4 k/uL (0-0.7); Eosinophils % (A) 6 %; HCT 35.9 % (34.0-46.0); HGB 11.3 gm/dL (11.4-16.0); Hypochromasia Moderate; Lymphocytes # (A) 1.3 k/uL (1.0-4.8); Lymphocytes % (A) 21 %; MCH 28.6 pg (25.0-35.0); MCHC 31.5 g/dL (31.0-37.0); MCV 90.7 fL (80.0-100.0); Monocytes # (A) 0.4 k/uL (0-1.0); Monocytes % (A) 7 %; Neutrophils % (A) 64 %; Platelet Count 225 k/uL (150-450); RBC 3.95 m/uL (3.80-5.40); RDW 18.2 % (11.5-15.5); WBC 6.3 k/uL (3.8-10.6)
[2024-01-30 18:53] LABS: INR 1.1 (<1.2); Partial Thromboplastin Time 27.8 sec (22.0-30.0); Prothrombin Time 11.9 sec (10.0-12.5)
[2024-01-30 18:58] LABS: ALT 24 U/L (4-34); African American GFR (CKD) 57 (>60 ml/min/1.73 sqM); Albumin 2.8 g/dL (3.5-5.0); Anion Gap 5 mmol/L; Blood Urea Nitrogen 33 mg/dL (7-17); Calcium 8.5 mg/dL (8.4-10.2); Carbon Dioxide 28 mmol/L (22-30); Chloride 107 mmol/L (98-107); Glucose 122 mg/dL (74-99); Non-African American GFR(CKD) 49 (>60 ml/min/1.73 sqM); Sodium 140 mmol/L (137-145); Total Bilirubin 0.6 mg/dL (0.2-1.3); Total Protein 6.2 g/dL (6.3-8.2)
[2024-01-30 19:13] LABS: AST 52 U/L (14-36); Alkaline Phosphatase 135 U/L (38-126); Potassium 4.8 mmol/L (3.5-5.1)
--- NOTE | 2024-01-30 20:07 | CT ---
EXAMINATION TYPE: CT abdomen pelvis wo con DATE OF EXAM: 01/30/2024 7:45 PM COMPARISON: 01/09/2024 CLINICAL INDICATION: Female, 78 years old with history of Abdominal pain and bloating; Abdominal pain and bloating. TECHNIQUE: Axial CT abdomen pelvis wo con;Sagittal and coronal reformats were created on a separate workstation. Contrast used: mL of , (none if empty) Oral contrast used: without Oral Contrast (none if empty) CT DLP: 1730.4 mGycm, Automated exposure control for dose reduction was used. FINDINGS: LOWER CHEST: Small hiatal hernia. ABDOMEN LIVER: Nodular contour to liver. GALLBLADDER AND BILE DUCTS: Layering gallstones in the gallbladder lumen. PANCREAS: Unremarkable. SPLEEN: Unremarkable. ADRENAL GLANDS: Unremarkable. KIDNEYS AND URETERS: No evidence of hydronephrosis or renal calculus. The ureters are unremarkable. PELVIS BLADDER: No evidence for wall thickening or mass given limitations of exam. REPRODUCTIVE: Unremarkable. ABDOMEN & PELVIS STOMACH AND BOWEL: No evidence of bowel obstruction. Scattered colonic diverticula present. PERITONEUM/RETROPERITONEUM: No evidence of pneumoperitoneum. Small to moderate amount of free fluid t hroughout the abdomen VASCULATURE: Mild atherosclerotic calcifications are present throughout the abdominal aorta and its b ranches. No evidence of aortic aneurysm. Is thought to be recanalization of the periumbilical vein. MUSCULOSKELETAL: Chronic dislocation left hip prosthesis. Multilevel degeneration changes throughout the spine. LYMPH NODES: No gross evidence for lymphadenopathy. SOFT TISSUE/ABDOMINAL WALL: Diffuse anasarca of the soft tissues. IMPRESSION: 1. No definitive evidence for acute abdominal process. 2. Hepatic cirrhosis with recanalization of the periumbilical vein suggestive of portal hypertension with small moderate ascites.. 3. Small hiatal hernia. 4. Cholelithiasis. 5. Colonic diverticulosis. 6. Chronic left hip with increased dislocation. [facility], , 01/30/2024 8:05 PM
[2024-01-30] MEDS ORDERED: ALPRAZolam 0.25 MG TAB PO PRN (22:18)
[2024-01-30] MEDS ORDERED: ALBUTEROL NEBULIZED 2.5 MG/3 ML INHALATION PRN (22:18)
[2024-01-30] MEDS ORDERED: NALOXONE 0.4 MG/ML 1 ML VIAL IV PRN (22:49)
[2024-01-30] MEDS ORDERED: HYDROcodone/APAP 5-325MG 1 EACH TAB PO PRN (22:49)
[2024-01-30] MEDS ORDERED: ONDANSETRON 4 MG/2 ML VIAL IVP PRN (22:49)
[2024-01-30] MEDS ORDERED: MORPHINE SULFATE 4 MG/ML SYRINGE IV PRN (22:49)
[2024-01-31] MEDS: IPRATROPIUM 0.5 MG/2.5 ML NEBU INHALATION SCH (07:49)
[2024-01-31] MEDS ORDERED: AMMONIUM LACTATE 12% LOTION 225 GM BTL TOPICAL PRN (09:00)
[2024-01-31] MEDS ORDERED: PANTOPRAZOLE 40 MG TABLET PO SCH (09:00)
[2024-01-31] MEDS ORDERED: NON FORMULARY DRUG (Vit C/E/Zn/Coppr/Lutein/Zeaxan [Preservision Areds 2 Softgel] 1 EACH C PO SCH (09:00)
[2024-01-31] MEDS ORDERED: DEXTROSE 50% SYRINGE 50 ML IVP PRN ×2 (09:09)
[2024-01-31] MEDS: FUROSEMIDE 40 MG TAB PO SCH (10:18)
[2024-01-31] MEDS: ATORVASTATIN 20 MG TAB PO SCH (10:18)
[2024-01-31] MEDS: ASCORBIC ACID 500 MG TAB PO SCH (10:18)
[2024-01-31] MEDS: ESCITALOPRAM 10 MG TAB PO SCH (10:18)
[2024-01-31] MEDS: CHOLECALCIFEROL 25 MCG (1000 IU) TABLET PO SCH (10:18)
[2024-01-31] MEDS: MAGNESIUM OXIDE 400 MG TAB PO SCH (10:18)
[2024-01-31 10:19] LABS: Glucose,Whole Blood 97 mg/dL (70-110)
[2024-01-31] MEDS: carvediloL 3.125 MG TAB PO SCH (10:19)
[2024-01-31] MEDS: METOPROLOL TARTRATE 12.5 MG TAB PO SCH (10:19)
[2024-01-31] MEDS: ASPIRIN 81 MG PO SCH (10:19)
[2024-01-31] MEDS: NYSTATIN 100,000UNIT/GM CREAM 30 GM TUBE TOPICAL SCH (10:20)
[2024-01-31] MEDS: VIT A,C & E-LUTEIN-MINERALS 1 EACH TAB PO SCH (10:20)
[2024-01-31] MEDS: SACUBITRIL/VALSARTAN 24 MG-26 MG TABLET PO SCH (10:20)
[2024-01-31] MEDS: SODIUM BICARBONATE TAB 650 MG TAB PO SCH (10:20)
[2024-01-31] MEDS: POTASSIUM CHLORIDE ER 20 MEQ TAB.ER PO SCH (10:25)
[2024-01-31] MEDS: PANTOPRAZOLE 40 MG/10 ML VIAL IV SCH (10:26)
[2024-01-31] MEDS: TORSEMIDE 20 MG TAB PO SCH (10:28)
[2024-01-31] MEDS: INSULIN DETEMIR (LEVEMIR) 100 UNIT/ML SYR SQ SCH (11:53)
[2024-01-31 12:35] LABS: Glucose,Whole Blood 107 mg/dL (70-110)
[2024-01-31] MEDS: INSULIN ASPART (NovoLOG) 100 UNIT/ML VIAL SQ SCH (12:42)
--- NOTE | 2024-01-31 13:22 | P.HPIM ---
History of Present Illness H&P Date: 01/31/24 History of present illness; patient is a 78-year-old lady with past medical history significant for atrial fibrillation, coronary disease, CVA, diabetes mellitus, DVT, hypertension who presented the ER because of abdominal pain and distention. Patient was recently in the hospital at the end of December at which time patient had diagnostic and therapeutic paracentesis with removal of 3.2 L of fluid, patient during that admission was treated for pneumonia, ascitic fluid was not suspicious for SBP, patient was discharged on oral Ceftin. Patient stated that she was doing well initially but later on started developing abdominal distention. Patient was stating that she felt her belly was getting large. There was no complaint of any fever. There was no complaint of any nausea, vomiting. Patient denies any altered bowel movements. Because of abdominal distention, patient called her PCP and he told her to come to the ER Initial lab work done in the ER showed WBC 6.3, hemoglobin 11.3, platelet count 225, sodium 140, potassium 4.8, BUN 33, creatinine 1.07, glucose 122, alk phos 135, protein 6.2, albumin 2.8 EKG done in the ER showed heart rate of 66, no ST segment elevation or depression seen, no T-wave inversions seen. CT abdomen pelvis done showed no definite evidence for acute abdominal process. Hepatic cirrhosis with recanalization of the periumbilical vein suggestive of portal hypertension Patient admitted to internal medicine service REVIEW OF SYSTEMS: CONSTITUTIONAL: No fever, no malaise, no fatigue. HEENT: No recent visual problems or hearing problems. Denied any sore throat. CARDIOVASCULAR: No chest pain, orthopnea, PND, no palpitations, no syncope. PULMONARY: No shortness of breath, no cough, no hemoptysis. GASTROINTESTINAL: As mentioned above NEUROLOGICAL: No headaches, no weakness, no numbness. HEMATOLOGICAL: Denies any bleeding or petechiae. GENITOURINARY: Denies any burning micturition, frequency, or urgency. MUSCULOSKELETAL/RHEUMATOLOGICAL: Denies any joint pain, swelling, or any muscle pain. ENDOCRINE: Denies any polyuria or polydipsia. The rest of the 14-point review of systems is negative. PHYSICAL EXAMINATION: GENERAL: The patient is alert and oriented x3, not in any acute distress. Well developed, well nourished. HEENT: Pupils are round and equally reacting to light. EOMI. No scleral icterus. No conjunctival pallor. Normocephalic, atraumatic. No pharyngeal erythema. No thyromegaly. CARDIOVASCULAR: S1 and S2 present. No murmurs, rubs, or gallops. PULMONARY: Chest is clear to auscultation, no wheezing or crackles. ABDOMEN: Soft, nontender, nondistended, normoactive bowel sounds. No palpable organomegaly. MUSCULOSKELETAL: No joint swelling or deformity. EXTREMITIES: No cyanosis, clubbing, or pedal edema. NEUROLOGICAL: Gross neurological examination did not reveal any focal deficits. SKIN: No rashes. Assessment and plan Abdominal pain Ascites Chronic diastolic CHF Diabetes mellitus chronic kidney disease stage III anemia of chronic kidney disease Monitor vital signs Monitor CBC Monitor CMP Strict I's and O's, daily weights Resume Entresto Resume torsemide Resume Lopressor Ordered blood sugar monitoring, ordered sliding scale insulin, resume home regimen of long-acting insulin IR consulted for therapeutic paracentesis Past Medical History Past Medical History: Atrial Fibrillation, Coronary Artery Disease (CAD), CVA/TIA, Diabetes Mellitus, Deep Vein Thrombosis (DVT), Hypertension, Myocardial Infarction ([place]), Osteoarthritis (OA) Additional Past Medical History / Comment(s): hx tia, hx stroke behind left eye., lt eye macular , states hospitalized with Covid April 2019 with life support and stage 3 kidney failure., hx of fall with hip fx and surgery 01/13/22 went to [facility] for Rehab. DVT during ., varicose veins, states painful sore left heel., hx of t.b. as a child with scarring on lungs. Last Myocardial Infarction Date:: unknown date History of Any Multi-Drug Resistant Organisms: MRSA, VRE Date of last positivie culture/infection: 09/09/22 MRSA & VRE ([facility]-Scanned) MDRO Source:: Blood Culture Past Surgical History: Adenoidectomy, Hysterectomy, Orthopedic Surgery, Tonsillectomy, Tubal Ligation Additional Past Surgical History / Comment(s): pilonidal cyst twice as child, rt knee arthroscopy, krystyna cataracts, krystyna great toe sx, ORIF Left hip (01/13/22) Past Anesthesia/Blood Transfusion Reactions: Previous Problems w/ Anesthesia, Postoperative Nausea & Vomiting (PONV) Additional Past Anesthesia/Blood Transfusion Reaction / Comment(s): difficulty waking up after sx. clausterphobia. 1961 blood transfusion(during child ) pt stated had palpitations after 2nd unit given Past Psychological History: Anxiety Smoking Status: Never smoker Past Alcohol Use History: None Reported Past Drug Use History: None Reported - Past Family History Mother Family Medical History: Cancer Additional Family Medical History / Comment(s): lung cancer Father Family Medical History: Coronary Artery Disease (CAD) Additional Family Medical History / Comment(s): heart disease, kidney disese Medications and Allergies Home Medications Medication Instructions Recorded Confirmed Type Apixaban [Eliquis] 5 mg PO BID 08/13/20 01/30/24 History Sacubitril/Valsartan [Entresto 24 1 tab PO BID 01/12/22 01/30/24 History mg-26 mg Tablet] Omeprazole [PriLOSEC] 20 mg PO DAILY 03/05/22 01/30/24 History Ipratropium [place] [Atrovent Hfa] 2 puff INHALATION RT-QID 09/09/22 01/30/24 History ALPRAZolam [Xanax] 0.25 mg PO TID PRN 05/30/23 01/30/24 History Ammonium Lactate Lotion 1 applic TOPICAL BID PRN 05/30/23 01/30/24 History [Lac-Hydrin 12% Lotion] Aspirin 81 mg PO DAILY 05/30/23 01/30/24 History Atorvastatin [Lipitor] 20 mg PO DAILY 05/30/23 01/30/24 History Cholecalciferol [Vitamin D3 (25 25 mcg PO DAILY 05/30/23 01/30/24 History Mcg = 1000 Iu)] Escitalopram [Lexapro] 10 mg PO DAILY 05/30/23 01/30/24 History Furosemide [Lasix] 80 mg PO DAILY 05/30/23 01/30/24 History Insulin Glargine,Hum.rec.anlog 16 - 18 units SQ HS 05/30/23 01/30/24 History [Toujeo Max Solostar] Insulin Glargine,Hum.rec.anlog 24 units SQ DAILY 05/30/23 01/30/24 History [Toujeo Max Solostar] Multivit-Min/FA/Lycopen/Lutein 1 tab PO DAILY 05/30/23 01/30/24 History [Centrum Silver Tablet] Potassium Chloride ER [K-Dur 20] 20 meq PO DAILY 05/30/23 01/30/24 History Albuterol Inhaler [Ventolin Hfa 2 puff INHALATION RT-QID PRN 01/09/24 01/30/24 History Inhaler] Ascorbic Acid [Vitamin C] 1,000 mg PO DAILY 01/09/24 01/30/24 History Vit C/E/Zn/Coppr/Lutein/Zeaxan 1 cap PO BID 01/09/24 01/30/24 History [Preservision Areds 2 Softgel] carvediloL [Coreg] 3.125 mg PO BID 01/09/24 01/30/24 History Magnesium Oxide [Mag-Ox] 400 mg PO DAILY #30 tab 01/16/24 01/30/24 Rx Nystatin 100,000Unit/gm Cream 1 applic TOPICAL BID #60 g 01/16/24 01/30/24 Rx [Mycostatin Cream] Sodium Bicarbonate Tab 650 mg PO BID #60 tab 01/16/24 01/30/24 Rx Torsemide [Demadex] 40 mg PO DAILY #30 tab 01/16/24 01/30/24 Rx Metoprolol Tartrate [Lopressor] 12.5 mg PO BID 01/30/24 01/30/24 History Allergies Allergy/AdvReac Type Severity Reaction Status Date / Time shellfish derived [Shellfish] Allergy Severe vomiting Verified 01/30/24 18:23 -very ill adhesive Allergy skin red Verified 01/30/24 18:23 and murguia, tears skin aluminum Allergy skin turns Verified 01/30/24 18:23 black, passes out Antihistamines - Allergy heart Verified 01/30/24 18:23 Ethylenediamine palpitations codeine Allergy migraines Verified 01/30/24 18:23 epinephrine Allergy heart Verified 01/30/24 18:23 palpitations fluticasone [From Flonase] Allergy Unknown Verified 01/30/24 18:23 hydrogen peroxide Allergy murguia and Verified 01/30/24 18:23 causes infection latex Allergy passes out Verified 01/30/24 18:23 nickel Allergy turns skin Verified 01/30/24 18:23 black and passes out procaine HCl [From Novocain] Allergy passed Verified 01/30/24 18:23 out- due to epinephrine in it. thiopental sodium Allergy needed cpr Verified 01/30/24 18:23 [From Pentothal] resusitation methocarbamol [From Robaxin] AdvReac Hallucinati Verified 01/30/24 18:23 ons zinc oxide AdvReac Rash/Hives Verified 01/30/24 18:23 surgical felicita Allergy Severe had to be Uncoded 01/30/24 18:23 removed 2 days post-op petroleum products AdvReac passes out Uncoded 01/30/24 18:23 or does not feel well. (diesel, oils) Physical Exam Vitals: Vital Signs Temp Pulse Resp BP Pulse Ox 01/31/24 12:05 68 16 01/31/24 11:59 64 16 01/31/24 10:30 64 18 123/56 99 01/31/24 08:29 98.2 F 67 18 113/55 96 01/31/24 07:56 68 18 01/31/24 07:51 73 16 01/31/24 06:00 66 18 103/65 94 L 01/31/24 04:00 65 18 118/58 94 L 01/31/24 02:00 67 18 111/54 95 01/31/24 00:11 68 18 108/56 94 L 01/30/24 23:00 50 L 16 120/61 95 01/30/24 21:00 74 16 148/80 96 01/30/24 16:41 98.2 F 83 17 150/90 96 Intake and Output 01/30/24 01/31/24 01/31/24 22:59 06:59 14:59 Other: Weight 83.007 kg Results CBC & Chem 7: 01/30/24 18:21 01/30/24 18:21 Labs: Abnormal Lab Results - Last 24 Hours (Table) 01/30/24 01/30/24 Range/Units 18:21 18:21 Hgb 11.3 L (11.4-16.0) gm/dL RDW 18.2 H (11.5-15.5) % BUN 33 H (7-17) mg/dL Creatinine 1.07 H (0.52-1.04) mg/dL Glucose 122 H (74-99) mg/dL AST 52 H (14-36) U/L Alkaline Phosphatase 135 H (38-126) U/L Total Protein 6.2 L (6.3-8.2) g/dL Albumin 2.8 L (3.5-5.0) g/dL
[2024-01-31 17:34] LABS: Glucose,Whole Blood 112 mg/dL (70-110)
[2024-01-31 21:23] LABS: Glucose,Whole Blood 203 mg/dL (70-110)
[2024-02-01 08:18] LABS: Glucose,Whole Blood 141 mg/dL (70-110)
[2024-02-01 11:50] LABS: Glucose,Whole Blood 191 mg/dL (70-110)
--- NOTE | 2024-02-01 12:11 | P.PN ---
Subjective Progress Note Date: 02/01/24 patient is a 78-year-old lady with past medical history significant for atrial fibrillation, coronary disease, CVA, diabetes mellitus, DVT, hypertension who presented the ER because of abdominal pain and distention. Patient was recently in the hospital at the end of December at which time patient had diagnostic and therapeutic paracentesis with removal of 3.2 L of fluid, patient during that admission was treated for pneumonia, ascitic fluid was not suspicious for SBP, patient was discharged on oral Ceftin. Patient stated that she was doing well initially but later on started developing abdominal distention. Patient was stating that she felt her belly was getting large. There was no complaint of any fever. There was no complaint of any nausea, vomiting. Patient denies any altered bowel movements. Because of abdominal distention, patient called her PCP and he told her to come to the ER Initial lab work done in the ER showed WBC 6.3, hemoglobin 11.3, platelet count 225, sodium 140, potassium 4.8, BUN 33, creatinine 1.07, glucose 122, alk phos 135, protein 6.2, albumin 2.8 EKG done in the ER showed heart rate of 66, no ST segment elevation or depression seen, no T-wave inversions seen. CT abdomen pelvis done showed no definite evidence for acute abdominal process. Hepatic cirrhosis with recanalization of the periumbilical vein suggestive of portal hypertension Patient admitted to internal medicine service 01/31. Patient seen and examined. REVIEW OF SYSTEMS: CONSTITUTIONAL: No fever, no malaise,. CARDIOVASCULAR: No chest pain, no palpitations, no syncope. PULMONARY: No shortness of breath, no cough, GASTROINTESTINAL: No diarrhea, no nausea, no vomiting, no abdominal pain. NEUROLOGICAL: No headaches, no weakness, PHYSICAL EXAMINATION: GENERAL: The patient is alert and oriented x3, not in any acute distress. Well developed, well nourished. HEENT: Pupils are round and equally reacting to light. EOMI. No scleral icterus. No conjunctival pallor. Normocephalic, atraumatic. No pharyngeal erythema. No thyromegaly. CARDIOVASCULAR: S1 and S2 present. No murmurs, rubs, or gallops. PULMONARY: Chest is clear to auscultation, no wheezing or crackles. ABDOMEN: Soft, nontender, nondistended, normoactive bowel sounds. No palpable organomegaly. MUSCULOSKELETAL: No joint swelling or deformity. EXTREMITIES: No cyanosis, clubbing, or pedal edema. NEUROLOGICAL: Gross neurological examination did not reveal any focal deficits. SKIN: No rashes. Assessment and plan Abdominal pain Ascites Chronic diastolic CHF Diabetes mellitus chronic kidney disease stage III anemia of chronic kidney disease Monitor vital signs Monitor CBC Monitor CMP Encourage use of incentive spirometer Strict I's and O's, daily weights, continue torsemide Continue Lopressor, Entresto Monitor blood sugar levels, continue current insulin regimen IR consulted for paracentesis Labs and medication were reviewed.. Continue same treatment. Continue with symptomatic treatment. Resume home medication. Monitor labs and vitals. DVT and GI prophylaxis. Further recommendations as per clinical course of the patient Dictation was produced using Myster[employer] dictation software. please excuse any grammatical, word or spelling errors. Objective - Vital Signs Vital signs: Vital Signs Temp 97.8 F 02/01/24 08:11 Pulse 68 02/01/24 09:36 Resp 17 02/01/24 08:11 BP 126/59 02/01/24 08:11 Pulse Ox 94 L 02/01/24 08:11 FiO2 Intake & Output 01/31/24 02/01/24 02/01/24 18:59 06:59 18:59 Other: # Voids 1 # Bowel Movements 1 - Labs CBC & Chem 7: 01/30/24 18:21 01/30/24 18:21 Labs: Abnormal Lab Results - Last 24 Hours (Table) 01/31/24 01/31/24 02/01/24 Range/Units 17:33 21:18 08:17 POC Glucose (mg/dL) 112 H 203 H 141 H (70-110) mg/dL
[2024-02-01 16:20] LABS: Glucose,Whole Blood 171 mg/dL (70-110)
[2024-02-01 20:28] LABS: Glucose,Whole Blood 169 mg/dL (70-110)
[2024-02-02 06:29] LABS: Glucose,Whole Blood 92 mg/dL (70-110)
--- NOTE | 2024-02-02 08:27 | P.PN ---
Subjective Progress Note Date: 02/02/24 This is an 78-year-old female who presented to the emergency department with complaints of abdominal pain and distention. She does have a recent history of an admission and paracentesis with removal of 3.2 L of fluid. Patient reports she is doing well initially but then the abdominal distention worsened. Patient also has a history of gallbladder issues in the past. Interventional radiology has been consulted for possible paracentesis. Will consult GI and surgery regarding ascites and gallbladder. Patient seen this morning laying in bed resting comfortably. She is tolerating diet. Vitals are stable. Objective - Vital Signs Vital signs: Vital Signs Temp 98.4 F 02/02/24 01:37 Pulse 70 02/02/24 01:37 Resp 17 02/02/24 01:37 BP 114/67 02/02/24 01:37 Pulse Ox 93 L 02/02/24 01:37 FiO2 Intake & Output 02/01/24 02/02/24 02/02/24 18:59 06:59 18:59 Output Total 900 175 Balance -900 -175 Weight 83.007 kg 116.5 kg Output: Urine 900 175 Other: Voiding Method External Catheter External Catheter # Voids 1 # Bowel Movements 1 - Constitutional General appearance: Present: cooperative, no acute distress - EENT Eyes: Present: PERRLA - Neck Neck: Present: normal ROM. Absent: lymphadenopathy, rigidity - Respiratory Respiratory: bilateral: diminished - Cardiovascular Heart sounds: normal: S1, S2 - Gastrointestinal General gastrointestinal: Present: distended - Integumentary Integumentary: Present: normal, normal turgor - Musculoskeletal Musculoskeletal: Present: generalized weakness - Psychiatric Psychiatric: Present: A&O x's 3 - Labs CBC & Chem 7: 01/30/24 18:21 01/30/24 18:21 Labs: Abnormal Lab Results - Last 24 Hours (Table) 01/30/24 02/01/24 02/01/24 Range/Units 18:21 11:48 16:19 POC Glucose (mg/dL) 191 H 171 H (70-110) mg/dL Hemoglobin A1c 6.7 H (<=6.0) % 02/01/24 Range/Units 20:27 POC Glucose (mg/dL) 169 H (70-110) mg/dL Hemoglobin A1c (<=6.0) % Assessment and Plan (1) Abdominal pain Current Visit: Yes Status: Acute Code(s): R10.9 - UNSPECIFIED ABDOMINAL PAIN SNOMED Code(s): 93919684 (2) Ascites Current Visit: No Status: Acute Code(s): R18.8 - OTHER ASCITES SNOMED Code(s): 449498741 (3) CKD (chronic kidney disease) Current Visit: No Status: Acute Code(s): N18.9 - CHRONIC KIDNEY DISEASE, UNSPECIFIED SNOMED Code(s): 739980256 (4) Cholelithiasis Current Visit: No Status: Acute Code(s): K80.20 - CALCULUS OF GALLBLADDER W/O CHOLECYSTITIS W/O OBSTRUCTION SNOMED Code(s): 882339650 (5) Chronic wound Current Visit: No Status: Acute Code(s): T14.8XXA - OTHER INJURY OF UNSPECIFIED BODY REGION, INITIAL ENCOUNTER SNOMED Code(s): 03843684780014 (6) Diabetes Current Visit: No Status: Acute Code(s): E11.9 - TYPE 2 DIABETES MELLITUS WITHOUT COMPLICATIONS SNOMED Code(s): 99789955 (7) History of atrial fibrillation Current Visit: No Status: Acute Code(s): Z86.79 - PERSONAL HISTORY OF OTHER DISEASES OF THE CIRCULATORY SYSTEM SNOMED Code(s): 360300038 (8) Hyperlipidemia Current Visit: No Status: Acute Code(s): E78.5 - HYPERLIPIDEMIA, UNSPECIFIED SNOMED Code(s): 32975331 (9) Hypertension Current Visit: No Status: Acute Code(s): I10 - ESSENTIAL (PRIMARY) HYPERTE NSION SNOMED Code(s): 58709039 Plan: Await recommendation from interventional radiology. Consult to GI and Dr. Baker. Check CBC and CMP in the morning. Patient seen and evaluated by nurse practitioner, physician in agreement with plan.
[2024-02-02 08:28] LABS: HCT 29.7 % (37.2-46.3); HGB 9.2 g/dL (12.0-15.0); MCV 90.3 FL (80.0-97.0); Mean Platelet Volume 11.2 FL (9.5-12.2); NRBC Per 100 WBC 0 X 10*3/uL (0.00-0.01); Platelet Count 193 X 10*3/uL (140-440); RBC 3.29 X 10*6/uL (4.10-5.20); WBC 5.93 X 10*3/uL (4.50-10.00)
[2024-02-02 08:29] LABS: Basophils # (A) 0.06 X 10*3/uL (0.00-0.10); Eosinophils % (A) 6.7 %; Lymphocytes # (A) 1.46 X 10*3/uL (0.90-5.00); Lymphocytes % (A) 24.6 %; Monocytes # (A) 0.55 X 10*3/uL (0.20-1.00); Monocytes % (A) 9.3 %; Neutrophils # (A) 3.43 X 10*3/uL (1.80-7.70); Neutrophils % (A) 57.9 %
[2024-02-02 08:34] LABS: ALT 17 U/L (8-44); AST 28 U/L (13-35); Albumin 2.5 g/dL (3.8-4.9); Alkaline Phosphatase 113 U/L (41-126); BUN/Creat Ratio 21.93 Ratio (12.00-20.00); Blood Urea Nitrogen 32.9 mg/dL (9.0-27.0); Calcium 8.3 mg/dL (8.7-10.3); Carbon Dioxide 26.8 mmol/L (21.6-31.8); Chloride 105 mmol/L (96-109); Globulin 2.5 g/dL (1.6-3.3); Glucose 102 mg/dL (70-110); Potassium 4.2 mmol/L (3.5-5.5); Sodium 141 mmol/L (135-145); Total Bilirubin 0.3 mg/dL (0.3-1.2)
--- NOTE | 2024-02-02 09:57 | P.GSCN ---
History of Present Illness Consult date: 02/02/24 Reason for Consult: Abdominal pain History of present illness: 78-year-old female known to our service. Patient with history of known gallston es known choledocholithiasis in the past. She had a recent admission in December where the patient was having abdominal pain and pressure. She underwent a paracentesis with resolution in her symptoms. Patient returns back to the ER with bilateral lower extremity swelling and abdominal swelling as well. Liver enzymes normal this admission. Previously they were mildly elevated. CAT scan shows recurrent ascites with distended gallbladder as well. Cultures from the peritoneal fluid last visit were negative. Review of Systems The patient denies any acute changes in vision or hearing, no dysphagia or odynophagia, no chest pain or shortness of breath, no dysuria or hematuria, no headache, no runny nose, no rectal bleeding or melena, no unexplained weight loss Past Medical History Past Medical History: Atrial Fibrillation, Coronary Artery Disease (CAD), CVA/TIA, Diabetes Mellitus, Deep Vein Thrombosis (DVT), Hypertension, Myocardial Infarction (TN), Osteoarthritis (OA) Additional Past Medical History / Comment(s): hx tia, hx stroke behind left eye., lt eye macular , states hospitalized with Covid April 2019 with life support and stage 3 kidney failure., hx of fall with hip fx and surgery 01/13/22 went to [facility] for Rehab. DVT during ., varicose veins, states painful sore left heel., hx of t.b. as a child with scarring on lungs. 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 clausterphobia. 1 blood transfusion(during child ) pt stated had palpitations after 2nd unit given Past Psychological History: Anxiety Smoking Status: Never smoker Past Alcohol Use History: None Reported Past Drug Use History: None Reported - Past Family History Mother Family Medical History: Cancer Additional Family Medical History / Comment(s): lung cancer Father Family Medical History: Coronary Artery Disease (CAD) Additional Family Medical History / Comment(s): heart disease, kidney disese Medications and Allergies Home Medications Medication Instructions Recorded Confirmed Type Apixaban [Eliquis] 5 mg PO BID 08/13/20 01/30/24 History Sacubitril/Valsartan [Entresto 24 1 tab PO BID 01/12/22 01/30/24 History mg-26 mg Tablet] Omeprazole [PriLOSEC] 20 mg PO DAILY 03/05/22 01/30/24 History Ipratropium [place] [Atrovent Hfa] 2 puff INHALATION RT-QID 09/09/22 01/30/24 History ALPRAZolam [Xanax] 0.25 mg PO TID PRN 05/30/23 01/30/24 History Ammonium Lactate Lotion 1 applic TOPICAL BID PRN 05/30/23 01/30/24 History [Lac-Hydrin 12% Lotion] Aspirin 81 mg PO DAILY 05/30/23 01/30/24 History Atorvastatin [Lipitor] 20 mg PO DAILY 05/30/23 01/30/24 History Cholecalciferol [Vitamin D3 (25 25 mcg PO DAILY 05/30/23 01/30/24 History Mcg = 1000 Iu)] Escitalopram [Lexapro] 10 mg PO DAILY 05/30/23 01/30/24 History Furosemide [Lasix] 80 mg PO DAILY 05/30/23 01/30/24 History Insulin Glargine,Hum.rec.anlog 16 - 18 units SQ HS 05/30/23 01/30/24 History [Toujeo Max Solostar] Insulin Glargine,Hum.rec.anlog 24 units SQ DAILY 05/30/23 01/30/24 History [Toujeo Max Solostar] Multivit-Min/FA/Lycopen/Lutein 1 tab PO DAILY 05/30/23 01/30/24 History [Centrum Silver Tablet] Potassium Chloride ER [K-Dur 20] 20 meq PO DAILY 05/30/23 01/30/24 History Albuterol Inhaler [Ventolin Hfa 2 puff INHALATION RT-QID PRN 01/09/24 01/30/24 History Inhaler] Ascorbic Acid [Vitamin C] 1,000 mg PO DAILY 01/09/24 01/30/24 History Vit C/E/Zn/Coppr/Lutein/Zeaxan 1 cap PO BID 01/09/24 01/30/24 History [Preservision Areds 2 Softgel] carvediloL [Coreg] 3.125 mg PO BID 01/09/24 01/30/24 History Magnesium Oxide [Mag-Ox] 400 mg PO DAILY #30 tab 01/16/24 01/30/24 Rx Nystatin 100,000Unit/gm Cream 1 applic TOPICAL BID #60 g 01/16/24 01/30/24 Rx [Mycostatin Cream] Sodium Bicarbonate Tab 650 mg PO BID #60 tab 01/16/24 01/30/24 Rx Torsemide [Demadex] 40 mg PO DAILY #30 tab 01/16/24 01/30/24 Rx Metoprolol Tartrate [Lopressor] 12.5 mg PO BID 01/30/24 01/30/24 History Allergies Allergy/AdvReac Type Severity Reaction Status Date / Time shellfish derived [Shellfish] Allergy Severe vomiting Verified 01/30/24 18:23 -very ill adhesive Allergy skin red Verified 01/30/24 18:23 and murguia, tears skin aluminum Allergy skin turns Verified 01/30/24 18:23 black, passes out Antihistamines - Allergy heart Verified 01/30/24 18:23 Ethylenediamine palpitations codeine Allergy migraines Verified 01/30/24 18:23 epinephrine Allergy heart Verified 01/30/24 18:23 palpitations fluticasone [From Flonase] Allergy Unknown Verified 01/30/24 18:23 hydrogen peroxide Allergy murguia and Verified 01/30/24 18:23 causes infection latex Allergy passes out Verified 01/30/24 18:23 nickel Allergy turns skin Verified 01/30/24 18:23 black and passes out procaine HCl [From Novocain] Allergy passed Verified 01/30/24 18:23 out- due to epinephrine in it. thiopental sodium Allergy needed cpr Verified 01/30/24 18:23 [From Pentothal] resusitation methocarbamol [From Robaxin] AdvReac Hallucinati Verified 01/30/24 18:23 ons zinc oxide AdvReac Rash/Hives Verified 01/30/24 18:23 surgical felicita Allergy Severe had to be Uncoded 01/30/24 18:23 removed 2 days post-op petroleum products AdvReac passes out Uncoded 01/30/24 18:23 or does not feel well. (diesel, oils) Surgical - Exam Vital Signs Temp Pulse Resp BP Pulse Ox 98.2 F 83 17 150/90 96 01/30/24 16:41 01/30/24 16:41 01/30/24 16:41 01/30/24 16:41 01/30/24 16:41 Physical exam: General: Well-developed, well-nourished HEENT: Normocephalic, sclerae nonicteric Abdomen: Nontender, mild distention Extremities: Lower extremity edema Neuro: Alert and oriented Results - Labs 02/02/24 02:49 02/02/24 02:49 Abnormal Lab Results - Last 24 Hours (Table) 01/30/24 02/01/24 02/01/24 Range/Units 18:21 11:48 16:19 RBC (4.10-5.20) X 10*6/uL Hgb (12.0-15.0) g/dL Hct (37.2-46.3) % MCHC (32.0-37.0) g/dL RDW (11.5-14.5) % Eosinophils # (0.04-0.35) X 10*3/uL BUN (9.0-27.0) mg/dL Est GFR (CKD-EPI) (>=60) BUN/Creatinine Ratio (12.00-20.00) Ratio POC Glucose (mg/dL) 191 H 171 H (70-110) mg/dL Hemoglobin A1c 6.7 H (<=6.0) % Calcium (8.7-10.3) mg/dL Total Protein (6.2-8.2) g/dL Albumin (3.8-4.9) g/dL Albumin/Globulin Ratio (1.60-3.17) Ratio 02/01/24 02/02/24 02/02/24 Range/Units 20:27 02:49 02:49 RBC 3.29 L (4.10-5.20) X 10*6/uL Hgb 9.2 L (12.0-15.0) g/dL Hct 29.7 L (37.2-46.3) % MCHC 31.0 L (32.0-37.0) g/dL RDW 20.0 H (11.5-14.5) % Eosinophils # 0.40 H (0.04-0.35) X 10*3/uL BUN 32.9 H (9.0-27.0) mg/dL Est GFR (CKD-EPI) 35 L (>=60) BUN/Creatinine Ratio 21.93 H (12.00-20.00) Ratio POC Glucose (mg/dL) 169 H (70-110) mg/dL Hemoglobin A1c (<=6.0) % Calcium 8.3 L (8.7-10.3) mg/dL Total Protein 5.0 L (6.2-8.2) g/dL Albumin 2.5 L (3.8-4.9) g/dL Albumin/Globulin Ratio 1.00 L (1.60-3.17) Ratio Diabetes panel 01/30/24 02/02/24 Range/Units 18:21 02:49 Sodium 141 (135-145) mmol/L Potassium 4.2 (3.5-5.5) mmol/L Chloride 105 (96-109) mmol/L Carbon Dioxide 26.8 (21.6-31.8) mmol/L BUN 32.9 H (9.0-27.0) mg/dL Creatinine 1.5 (0.6-1.5) mg/dL Glucose 102 (70-110) mg/dL Hemoglobin A1c 6.7 H (<=6.0) % Calcium 8.3 L (8.7-10.3) mg/dL AST 28 (13-35) U/L ALT 17 (8-44) U/L Alkaline Phosphatase 113 (41-126) U/L Total Protein 5.0 L (6.2-8.2) g/dL Albumin 2.5 L (3.8-4.9) g/dL Calcium panel 02/02/24 Range/Units 02:49 Calcium 8.3 L (8.7-10.3) mg/dL Albumin 2.5 L (3.8-4.9) g/dL Pituitary panel 02/02/24 Range/Units 02:49 Sodium 141 (135-145) mmol/L Potassium 4.2 (3.5-5.5) mmol/L Chloride 105 (96-109) mmol/L Carbon Dioxide 26.8 (21.6-31.8) mmol/L BUN 32.9 H (9.0-27.0) mg/dL Creatinine 1.5 (0.6-1.5) mg/dL Glucose 102 (70-110) mg/dL Calcium 8.3 L (8.7-10.3) mg/dL Adrenal panel 02/02/24 Range/Units 02:49 Sodium 141 (135-145) mmol/L Potassium 4.2 (3.5-5.5) mmol/L Chloride 105 (96-109) mmol/L Carbon Dioxide 26.8 (21.6-31.8) mmol/L BUN 32.9 H (9.0-27.0) mg/dL Creatinine 1.5 (0.6-1.5) mg/dL Glucose 102 (70-110) mg/dL Calcium 8.3 L (8.7-10.3) mg/dL Total Bilirubin 0.3 (0.3-1.2) mg/dL AST 28 (13-35) U/L ALT 17 (8-44) U/L Alkaline Phosphatase 113 (41-126) U/L Total Protein 5.0 L (6.2-8.2) g/dL Albumin 2.5 L (3.8-4.9) g/dL Assessment and Plan (1) Abdominal pain Narrative/Plan: 78-year-old female with ascites and abdominal pain. Believe the patient's pain is related to the ascites and not her gallbladder currently. Agree with plans for therapeutic paracentesis at this time. Will monitor to see if her symptoms resolved with that. Continue management of the patient's fluid overload per medicine. Current Visit: Yes Status: Acute Code(s): R10.9 - UNSPECIFIED ABDOMINAL PAIN SNOMED Code(s): 35491983
[2024-02-02 11:39] LABS: Glucose,Whole Blood 151 mg/dL (70-110)
--- NOTE | 2024-02-02 15:00 | US ---
EXAMINATION TYPE: US paracentesis abd w/image DATE OF EXAM: 02/02/2024 2:54 PM COMPARISON: prior paracentesis. CLINICAL INDICATION:Female, 78 years old with history of ascites; , ascites ATTENDING: Dr. Trevor Lockwood PROCEDURE: Informed consent was obtained. The risks of the procedure were extensively explained incl uding risk of damage to surrounding bowel with perforation and need for additional procedures. Proced ure was performed in the ultrasound procedure suite. Ultrasound imaging of the abdomen demonstrate as citic fluid. An appropriate access site was localized to the right lower abdomen. Timeout was taken p er protocol. The skin was prepped and draped in the usual sterile fashion and then locally anesthetiz ed with 1% lidocaine. The peritoneal cavity was then accessed via a 5-[place] Island[place] one-step needle/cathete r. Approximately 2900 mL of clear straw-colored fluid was obtained. Postprocedural imaging of the a bdomen demonstrate a minimal amount of abdominal fluid. Patient tolerated procedure well without immediate complication. Hemostasis at the procedural site w as obtained with a sterile bandage placed. The patient was monitored in the holding area following th e procedure and was subsequently discharged in stable condition. IMPRESSION: Ultrasound guided paracentesis, with approximately 2900 mL of clear straw-colored fluid drained. Path ology results pending. No immediate complications were evident. [facility], , 02/02/2024 2:58 PM
[2024-02-02 16:42] LABS: Glucose,Whole Blood 200 mg/dL (70-110)
[2024-02-02 20:55] LABS: Glucose,Whole Blood 242 mg/dL (70-110)
[2024-02-03 06:49] LABS: Glucose,Whole Blood 84 mg/dL (70-110)
[2024-02-03 08:27] LABS: HCT 30.6 % (37.2-46.3); HGB 9.5 g/dL (12.0-15.0); MCH 28.2 pg (27.0-32.0); MCV 90.8 FL (80.0-97.0); Mean Platelet Volume 11.1 FL (9.5-12.2); NRBC Per 100 WBC 0 X 10*3/uL (0.00-0.01); Platelet Count 188 X 10*3/uL (140-440); RBC 3.37 X 10*6/uL (4.10-5.20); RDW 19.9 % (11.5-14.5); WBC 6.25 X 10*3/uL (4.50-10.00)
--- NOTE | 2024-02-03 08:39 | P.PN ---
Subjective Progress Note Date: 02/03/24 This is an 78-year-old female who presented to the emergency department with complaints of abdominal pain and distention. She does have a recent history of an admission and paracentesis with removal of 3.2 L of fluid. Patient reports she is doing well initially but then the abdominal distention worsened. Patient also has a history of gallbladder issues in the past. Interventional radiology has been consulted for possible paracentesis. Will consult GI and surgery regarding ascites and gallbladder. Patient seen this morning laying in bed resting comfortably. She is tolerating diet. Vitals are stable. 02/03/2024 Patient seen and evaluated laying in bed this morning. She had paracentesis yest erday with 2.9L of fluid removed. Vitals are stable. Pt is tolerating diet. Patient seen and evaluated by surgeon. Will plan for discharge tomorrow. Objective - Vital Signs Vital signs: Vital Signs Temp 98.9 F 02/03/24 01:25 Pulse 72 02/03/24 08:13 Resp 17 02/03/24 01:25 BP 116/65 02/03/24 01:25 Pulse Ox 94 L 02/03/24 01:25 FiO2 Intake & Output 02/02/24 02/03/24 02/03/24 18:59 06:59 18:59 Output Total 950 200 Balance -950 -200 Weight 115 kg Output: Urine 950 200 Other: Voiding Method External Catheter # Bowel Movements 1 - Constitutional General appearance: Present: cooperative, no acute distress - EENT Eyes: Present: PERRLA - Neck Neck: Present: normal ROM. Absent: lymphadenopathy, rigidity - Respiratory Respiratory: bilateral: CTA - Cardiovascular Heart sounds: normal: S1, S2 - Gastrointestinal General gastrointestinal: Present: soft. Absent: tenderness - Integumentary Integumentary: Present: normal, normal turgor - Musculoskeletal Musculoskeletal: Present: generalized weakness - Psychiatric Psychiatric: Present: A&O x's 3 - Labs CBC & Chem 7: 02/03/24 02:46 02/02/24 02:49 Labs: Abnormal Lab Results - Last 24 Hours (Table) 02/02/24 02/02/24 02/02/24 Range/Units 11:38 16:40 20:53 RBC (4.10-5.20) X 10*6/uL Hgb (12.0-15.0) g/dL Hct (37.2-46.3) % MCHC (32.0-37.0) g/dL RDW (11.5-14.5) % POC Glucose (mg/dL) 151 H 200 H 242 H (70-110) mg/dL 02/03/24 Range/Units 02:46 RBC 3.37 L (4.10-5.20) X 10*6/uL Hgb 9.5 L (12.0-15.0) g/dL Hct 30.6 L (37.2-46.3) % MCHC 31.0 L (32.0-37.0) g/dL RDW 19.9 H (11.5-14.5) % POC Glucose (mg/dL) (70-110) mg/dL Assessment and Plan (1) Abdominal pain Current Visit: Yes Status: Acute Code(s): R10.9 - UNSPECIFIED ABDOMINAL PAIN SNOMED Code(s): 73817002 (2) Ascites Current Visit: No Status: Acute Code(s): R18.8 - OTHER ASCITES SNOMED Code (s): 590530194 (3) CKD (chronic kidney disease) Current Visit: No Status: Acute Code(s): N18.9 - CHRONIC KIDNEY DISEASE, UNSPECIFIED SNOMED Code(s): 819640904 (4) Cholelithiasis Current Visit: No Status: Acute Code(s): K80.20 - CALCULUS OF GALLBLADDER W/O CHOLECYSTITIS W/O OBSTRUCTION SNOMED Code(s): 979416230 (5) Chronic wound Current Visit: No Status: Acute Code(s): T14.8XXA - OTHER INJURY OF UNSPECIFIED BODY REGION, INITIAL ENCOUNTER SNOMED Code(s): 09767896213991 (6) Diabetes Current Visit: No Status: Acute Code(s): E11.9 - TYPE 2 DIABETES MELLITUS WITHOUT COMPLICATIONS SNOMED Code(s): 30735087 (7) History of atrial fibrillation Current Visit: No Status: Acute Code(s): Z86.79 - PERSONAL HISTORY OF OTHER DISEASES OF THE CIRCULATORY SYSTEM SNOMED Code(s): 081887831 (8) Hyperlipidemia Current Visit: No Status: Acute Code(s): E78.5 - HYPERLIPIDEMIA, UNSPECIFIED SNOMED Code(s): 87181309 (9) Hypertension Current Visit: No Status: Acute Code(s): I10 - ESSENTIAL (PRIMARY) HYPERTENSION SNOMED Code(s): 58854927 Plan: Check CMP in the morning. Anticipate discharge tomorrow. Patient seen and evaluated by nurse practitioner, physician in agreement with plan.
[2024-02-03] MEDS: ACETAMINOPHEN TAB 325 MG TAB PO PRN (08:48)
[2024-02-03 09:30] LABS: ALT 16 U/L (8-44); AST 27 U/L (13-35); Albumin 2.6 g/dL (3.8-4.9); Alkaline Phosphatase 115 U/L (41-126); BUN/Creat Ratio 22.36 Ratio (12.00-20.00); Blood Urea Nitrogen 31.3 mg/dL (9.0-27.0); Calcium 8.1 mg/dL (8.7-10.3); Carbon Dioxide 26.1 mmol/L (21.6-31.8); Chloride 102 mmol/L (96-109); Globulin 2.6 g/dL (1.6-3.3); Glucose 121 mg/dL (70-110); Potassium 3.9 mmol/L (3.5-5.5); Sodium 138 mmol/L (135-145); Total Bilirubin 0.4 mg/dL (0.3-1.2); Total Protein 5.2 g/dL (6.2-8.2)
[2024-02-03 11:57] LABS: Glucose,Whole Blood 77 mg/dL (70-110)
--- NOTE | 2024-02-03 14:28 | P.PN ---
Subjective Progress Note Date: 02/03/24 SURGICAL PROGRESS NOTE CHIEF COMPLAINT: Abdominal pain HISTORY OF PRESENT ILLNESS: Patient reports her abdominal pain has improved since the paracentesis. She had 2.9 L removed. She is tolerating diet. Denies any nausea or vomiting. Currently afebrile. WBC 6.25 Hgb 9.5 platelets 188 LFTs normal PHYSICAL EXAM: VITAL SIGNS: Reviewed. GENERAL: Well-developed in no acute distress. ABDOMEN: Soft. Nondistended. Nontender. NEUROLOGIC: Alert and oriented. Cranial nerves II through XII grossly intact. ASSESSMENT: 1. Abdominal pain with abdominal ascites status post paracentesis. Patient's abdominal pain is likely related to her ascites and not her gallbladder. 2. History of cholelithiasis and choledocholithiasis PLAN: -No surgical intervention planned -Fluid overload management per medicine service -Recommend patient follows up with GI service outpatient Physician Derrick Barge Operator note has been reviewed by physician. Signing provider agrees with the documented findings, assessment, and plan of care. I have personally seen and examined the patient, reviewed the [employer]ARN[employer] /PAs history, exam and MDM and agree with the assessment and plan as written. Based on total visit time, I have performed more than 50% of the visit. As above: Patient feels well today. No pain after 2.9 L removed with paracentesis. Continue optimization of fluid status. Will sign off. Please reconsult if needed. Objective - Vital Signs Vital signs: Vital Signs Temp 98.6 F 02/03/24 08:17 Pulse 64 02/03/24 11:42 Resp 18 02/03/24 08:17 BP 129/69 02/03/24 08:17 Pulse Ox 94 L 02/03/24 08:17 FiO2 Intake & Output 02/02/24 02/03/24 02/03/24 18:59 06:59 18:59 Output Total 950 200 Balance -950 -200 Weight 115 kg Output: Urine 950 200 Other: Voiding Method External Catheter External Catheter # Bowel Movements 1 - Labs CBC & Chem 7: 02/03/24 02:46 02/03/24 02:46 Labs: Abnormal Lab Results - Last 24 Hours (Table) 02/02/24 02/02/24 02/03/24 Range/Units 16:40 20:53 02:46 RBC 3.37 L (4.10-5.20) X 10*6/uL Hgb 9.5 L (12.0-15.0) g/dL Hct 30.6 L (37.2-46.3) % MCHC 31.0 L (32.0-37.0) g/dL RDW 19.9 H (11.5-14.5) % BUN (9.0-27.0) mg/dL Est GFR (CKD-EPI) (>=60) BUN/Creatinine Ratio (12.00-20.00) Ratio Glucose (70-110) mg/dL POC Glucose (mg/dL) 200 H 242 H (70-110) mg/dL Calcium (8.7-10.3) mg/dL Total Protein (6.2-8.2) g/dL Albumin (3.8-4.9) g/dL Albumin/Globulin Ratio (1.60-3.17) Ratio 02/03/24 Range/Units 02:46 RBC (4.10-5.20) X 10*6/uL Hgb (12.0-15.0) g/dL Hct (37.2-46.3) % MCHC (32.0-37.0) g/dL RDW (11.5-14.5) % BUN 31.3 H (9.0-27.0) mg/dL Est GFR (CKD-EPI) 38 L (>=60) BUN/Creatinine Ratio 22.36 H (12.00-20.00) Ratio Glucose 121 H (70-110) mg/dL POC Glucose (mg/dL) (70-110) mg/dL Calcium 8.1 L (8.7-10.3) mg/dL Total Protein 5.2 L (6.2-8.2) g/dL Albumin 2.6 L (3.8-4.9) g/dL Albumin/Globulin Ratio 1.00 L (1.60-3.17) Ratio
[2024-02-03 16:47] LABS: Glucose,Whole Blood 174 mg/dL (70-110)
[2024-02-03] MEDS ORDERED: ZINC OXIDE PASTE (Z-GUARD) 1 APPLIC TOPICAL PRN (18:13)
[2024-02-03 19:43] LABS: Glucose,Whole Blood 129 mg/dL (70-110)
[2024-02-04 06:15] LABS: Glucose,Whole Blood 64 mg/dL (70-110)
[2024-02-04 06:54] LABS: Glucose,Whole Blood 111 mg/dL (70-110)
[2024-02-04 08:47] LABS: ALT 15 U/L (8-44); AST 30 U/L (13-35); Albumin 2.5 g/dL (3.8-4.9); Albumin/Globulin Ratio 0.93 Ratio (1.60-3.17); Alkaline Phosphatase 112 U/L (41-126); Blood Urea Nitrogen 30.1 mg/dL (9.0-27.0); Calcium 8.3 mg/dL (8.7-10.3); Chloride 103 mmol/L (96-109); Globulin 2.7 g/dL (1.6-3.3); Glucose 72 mg/dL (70-110); Sodium 140 mmol/L (135-145); Total Bilirubin 0.3 mg/dL (0.3-1.2); Total Protein 5.2 g/dL (6.2-8.2)
--- NOTE | 2024-02-04 08:48 | P.DS ---
Providers Date of admission: 01/30/24 23:55 Attending physician: Luis Shirley Consults: 02/02/24 08:15 Consult Physician Routine Consulting Provider: Sofiya Murphy Consult Reason/Comments: ascites Do you want consulting provider notified?: Yes Primary care physician: Luis Shirley Hospital Course: The patient is an 78-year-old white female essential admitted for recurrent ascites. She has an element of cholelithiasis. Previous paracentesis did not show any malignancy. The patient is stable for discharge from surgery's perspective. She is tolerating diet voiding without difficulty. She will stay after dinner due to her family not being able to get her until that time. She will follow-up with me in in about 5 to 7 days. Prognosis is guarded secondary to multiple comorbidities. The patient will follow-up with me as stated above Patient Condition at Discharge: Fair Plan - Discharge Summary Discharge Rx Participant: Yes New Discharge Prescriptions: Continue Ipratropium [place] [Atrovent Hfa] 2 puff INHALATION RT-QID ALPRAZolam [Xanax] 0.25 mg PO TID PRN PRN Reason: Anxiety Aspirin 81 mg PO DAILY Atorvastatin [Lipitor] 20 mg PO DAILY Escitalopram [Lexapro] 10 mg PO DAILY Furosemide [Lasix] 80 mg PO DAILY Insulin Glargine,Hum.rec.anlog [[place] Max Solostar] 16 - 18 units SQ HS Insulin Glargine,Hum.rec.anlog [Toujeo Max Solostar] 24 units SQ DAILY Potassium Chloride ER [K-Dur 20] 20 meq PO DAILY carvediloL [Coreg] 3.125 mg PO BID Albuterol Inhaler [Ventolin Hfa Inhaler] 2 puff INHALATION RT-QID PRN PRN Reason: Shortness Of Breath Sodium Bicarbonate Tab 650 mg PO BID #60 tab Torsemide [Demadex] 40 mg PO DAILY #30 tab Apixaban [Eliquis] 5 mg PO BID Sacubitril/Valsartan [Entresto 24 mg-26 mg Tablet] 1 tab PO BID Omeprazole [PriLOSEC] 20 mg PO DAILY Ammonium Lactate Lotion [Lac-Hydrin 12% Lotion] 1 applic TOPICAL BID PRN PRN Reason: DRY ITCHY SKIN Cholecalciferol [Vitamin D3 (25 Mcg = 1000 Iu)] 25 mcg PO DAILY Multivit-Min/FA/Lycopen/Lutein [Centrum Silver Tablet] 1 tab PO DAILY Vit C/E/Zn/Coppr/Lutein/Zeaxan [Preservision Areds 2 Softgel] 1 cap PO BID Ascorbic Acid [Vitamin C] 1,000 mg PO DAILY Magnesium Oxide [Mag-Ox] 400 mg PO DAILY #30 tab Nystatin 100,000Unit/gm Cream [Mycostatin Cream] 1 applic TOPICAL BID #60 g Metoprolol Tartrate [Lopressor] 12.5 mg PO BID Discharge Medication List Apixaban [Eliquis] 5 mg PO BID 08/13/20 [History] Sacubitril/Valsartan [Entresto 24 mg-26 mg Tablet] 1 tab PO BID 01/12/22 [History] Omeprazole [PriLOSEC] 20 mg PO DAILY 03/05/22 [History] Ipratropium [place] [Atrovent Hfa] 2 puff INHALATION RT-QID 09/09/22 [History] ALPRAZolam [Xanax] 0.25 mg PO TID PRN 05/30/23 [History] Ammonium Lactate Lotion [Lac-Hydrin 12% Lotion] 1 applic TOPICAL BID PRN 05/30/23 [History] Aspirin 81 mg PO DAILY 05/30/23 [History] Atorvastatin [Lipitor] 20 mg PO DAILY 05/30/23 [History] Cholecalciferol [Vitamin D3 (25 Mcg = 1000 Iu)] 25 mcg PO DAILY 05/30/23 [History] Escitalopram [Lexapro] 10 mg PO DAILY 05/30/23 [History] Furosemide [Lasix] 80 mg PO DAILY 05/30/23 [History] Insulin Glargine,Hum.rec.anlog [Toujeo Max Solostar] 16 - 18 units SQ HS 05/30/23 [History] Insulin Glargine,Hum.rec.anlog [Toujeo Max Solostar] 24 units SQ DAILY 05/30/23 [History] Multivit-Min/FA/Lycopen/Lutein [Centrum Silver Tablet] 1 tab PO DAILY 05/30/23 [History] Potassium Chloride ER [K-Dur 20] 20 meq PO DAILY 05/30/23 [History] Albuterol Inhaler [Ventolin Hfa Inhaler] 2 puff INHALATION RT-QID PRN 01/09/24 [History] Ascorbic Acid [Vitamin C] 1,000 mg PO DAILY 01/09/24 [History] Vit C/E/Zn/Coppr/Lutein/Zeaxan [Preservision Areds 2 Softgel] 1 cap PO BID [History] carvediloL [Coreg] 3.125 mg PO BID 01/09/24 [History] Magnesium Oxide [Mag-Ox] 400 mg PO DAILY #30 tab 01/16/24 [Rx] Nystatin 100,000Unit/gm Cream [Mycostatin Cream] 1 applic TOPICAL BID #60 g 01/16/24 [Rx] Sodium Bicarbonate Tab 650 mg PO BID #60 tab 01/16/24 [Rx] Torsemide [Demadex] 40 mg PO DAILY #30 tab 01/16/24 [Rx] Metoprolol Tartrate [Lopressor] 12.5 mg PO BID 01/30/24 [History] Follow up Appointment(s)/Referral(s): Luis Shirley MD [Primary Care Provider] - 1-2 days [facility] [NON-STAFF] - As Needed Discharge Disposition: HOME WITH HOME HEALTH SERVICES
[2024-02-04 12:07] LABS: Glucose,Whole Blood 152 mg/dL (70-110)
[2024-02-04 16:53] LABS: Glucose,Whole Blood 119 mg/dL (70-110)
[2024-02-04 19:39] LABS: Glucose,Whole Blood 155 mg/dL (70-110)
[2024-02-04 20:46] VITALS: BP 107/67; PULSE 73; RESP 20; TEMP 98.3
== END 2024-02-04 20:55 | disposition home health service (06) ==
LOC: EC 16:31 → 6NMEDSUR 23:55 → 4SSUR 01-31 22:13
PROVIDERS: ADMIT Family Medicine; ATTEND Family Medicine
DX: K74.60 Unspecified cirrhosis of liver (principal); R18.8 Other ascites; K80.20 Calculus of gallbladder without cholecystitis without obstruction; E11.22 Type 2 diabetes mellitus with diabetic chronic kidney disease; I13.0 Hypertensive heart and chronic kidney disease with heart failure and stage 1 through stage 4 chronic kidney disease, or unspecified chronic kidney disease; N18.30 Chronic kidney disease, stage 3 unspecified; I50.32 Chronic diastolic (congestive) heart failure; I25.10 Atherosclerotic heart disease of native coronary artery without angina pectoris; D63.1 Anemia in chronic kidney disease; E78.5 Hyperlipidemia, unspecified; T14.8XXA Other injury of unspecified body region, initial encounter; I48.91 Unspecified atrial fibrillation; Z79.01 Long term (current) use of anticoagulants; Z79.82 Long term (current) use of aspirin; Z79.4 Long term (current) use of insulin; Z79.899 Other long term (current) drug therapy; Z86.73 Personal history of transient ischemic attack (TIA), and cerebral infarction without residual deficits; Z88.5 Allergy status to narcotic agent; Z88.8 Allergy status to other drugs, medicaments and biological substances; Z91.040 Latex allergy status; Z91.013 Allergy to seafood; Z91.048 Other nonmedicinal substance allergy status; Z91.09 Other allergy status, other than to drugs and biological substances; Z82.49 Family history of ischemic heart disease and other diseases of the circulatory system
CPT/HCPCS: 99285; 36415; 94640 ×9; 93005; 80053 ×4; 85025 ×2; 85027; 85610; 85730; 83036; 49083; 74176; G0378 ×6; J2470 ×4

== ENCOUNTER 2024-03-03 13:28 | Observation (INO) | payer MEDICARE, OTHER ==
[2024-03-03 13:57] LABS: Anisocytosis Slight; Basophils % (A) 0 %; Eosinophils # (A) 0.6 k/uL (0-0.7); Eosinophils % (A) 10 %; HCT 37.9 % (34.0-46.0); HGB 11.9 gm/dL (11.4-16.0); Hypochromasia Moderate; Lymphocytes % (A) 14 %; MCH 29.4 pg (25.0-35.0); MCHC 31.4 g/dL (31.0-37.0); MCV 93.6 fL (80.0-100.0); Mean Platelet Volume 8.2; Monocytes # (A) 0.3 k/uL (0-1.0); Monocytes % (A) 5 %; Neutrophils # (A) 4.6 k/uL (1.3-7.7); Neutrophils % (A) 70 %; Platelet Count 193 k/uL (150-450); RBC 4.05 m/uL (3.80-5.40); RDW 17.2 % (11.5-15.5); WBC 6.6 k/uL (3.8-10.6)
[2024-03-03 14:04] LABS: INR 1.2 (<1.2); Partial Thromboplastin Time 26.6 sec (22.0-30.0); Prothrombin Time 12.6 sec (10.0-12.5)
[2024-03-03 14:10] LABS: ALT 17 U/L (4-34); AST 38 U/L (14-36); African American GFR (CKD) 48 (>60 ml/min/1.73 sqM); Albumin 2.8 g/dL (3.5-5.0); Alkaline Phosphatase 121 U/L (38-126); Anion Gap 4 mmol/L; Blood Urea Nitrogen 41 mg/dL (7-17); Calcium 8.7 mg/dL (8.4-10.2); Carbon Dioxide 27 mmol/L (22-30); Chloride 107 mmol/L (98-107); Glucose 220 mg/dL (74-99); Non-African American GFR(CKD) 42 (>60 ml/min/1.73 sqM); Potassium 4.6 mmol/L (3.5-5.1); Sodium 138 mmol/L (137-145); Total Bilirubin 0.5 mg/dL (0.2-1.3); Total Protein 6.1 g/dL (6.3-8.2)
--- NOTE | 2024-03-03 14:50 | ED ---
General Adult HPI - General Chief complaint: Abdominal Pain Stated complaint: abn labs Time Seen by Provider: 03/03/24 13:40 Source: patient, EMS, RN notes reviewed, old records reviewed Mode of arrival: EMS Limitations: no limitations - History of Present Illness Initial comments: This is an 78-year-old female who presents to the emergency department the past medical history significant for liver failure with significant ascites. Patient states she was scheduled in a few weeks for a paracentesis however the abdomen is getting so bad that is causing some difficulty breathing on occasion and it was recommended to her that she come to the emergency department to be admitted. Patient currently lying in bed resting has no difficulty breathing she has no complaints other than her abdomen is significantly larger than it has been. Patient denies any fever chills. Patient denies abdominal pain just abdominal genital discomfort. - Related Data Home Medications Medication Instructions Recorded Confirmed Apixaban [Eliquis] 5 mg PO BID 08/13/20 03/03/24 Sacubitril/Valsartan [Entresto 24 1 tab PO BID 01/12/22 03/03/24 mg-26 mg Tablet] Omeprazole [PriLOSEC] 20 mg PO DAILY 03/05/22 03/03/24 Ipratropium [place] [Atrovent Hfa] 2 puff INHALATION RT-QID 09/09/22 03/03/24 ALPRAZolam [Xanax] 0.25 mg PO TID PRN 05/30/23 03/03/24 Ammonium Lactate Lotion 1 applic TOPICAL BID PRN 05/30/23 03/03/24 [Lac-Hydrin 12% Lotion] Aspirin 81 mg PO DAILY 05/30/23 03/03/24 Atorvastatin [Lipitor] 20 mg PO DAILY 05/30/23 03/03/24 Cholecalciferol [Vitamin D3 (25 25 mcg PO DAILY 05/30/23 03/03/24 Mcg = 1000 Iu)] Escitalopram [Lexapro] 10 mg PO DAILY 05/30/23 03/03/24 Furosemide [Lasix] 80 mg PO DAILY 05/30/23 03/03/24 Insulin Glargine,Hum.rec.anlog 16 - 18 units SQ HS 05/30/23 03/03/24 [Al Reynolds] Insulin Glargine,Hum.rec.anlog 24 units SQ DAILY 05/30/23 03/03/24 [Al Escuderoostalexi] Multivit-Min/FA/Lycopen/Lutein 1 tab PO DAILY 05/30/23 03/03/24 [Centrum Silver Tablet] Potassium Chloride ER [K-Dur 20] 20 meq PO DAILY 05/30/23 03/03/24 Albuterol Inhaler [Ventolin Hfa 2 puff INHALATION RT-QID PRN 01/09/24 03/03/24 Inhaler] Ascorbic Acid [Vitamin C] 1,000 mg PO DAILY 01/09/24 03/03/24 Vit C/E/Zn/Coppr/Lutein/Zeaxan 1 cap PO BID 01/09/24 03/03/24 [Preservision Areds 2 Softgel] carvediloL [Coreg] 3.125 mg PO BID 01/09/24 03/03/24 Metoprolol Tartrate [Lopressor] 12.5 mg PO BID 01/30/24 03/03/24 Menthol-Zinc Oxide Oint 1 applic TOPICAL DIRECTED 03/03/24 03/03/24 [Calmoseptine Ointment] Periguard Ointment 1 applic TOPICAL DIRECTED 03/03/24 03/03/24 Vits A and D/White Pet/Lanolin [A 1 applic TOPICAL DAILY PRN 03/03/24 03/03/24 and D Ointment] Previous Rx's Medication Instructions Recorded Magnesium Oxide [Mag-Ox] 400 mg PO DAILY #30 tab 01/16/24 Nystatin 100,000Unit/gm Cream 1 applic TOPICAL BID #60 g 01/16/24 [Mycostatin Cream] Sodium Bicarbonate Tab 650 mg PO BID #60 tab 01/16/24 Torsemide [Demadex] 40 mg PO DAILY #30 tab 01/16/24 Allergies Allergy/AdvReac Type Severity Reaction Status Date / Time shellfish derived [Shellfish] Allergy Severe vomiting Verified 03/03/24 14:33 -very ill adhesive Allergy skin red Verified 03/03/24 14:33 and murguia, tears skin aluminum Allergy skin turns Verified 03/03/24 14:33 black, passes out Antihistamines - Allergy heart Verified 03/03/24 14:33 Ethylenediamine palpitations codeine Allergy migraines Verified 03/03/24 14:33 epinephrine Allergy heart Verified 03/03/24 14:33 palpitations fluticasone [From Flonase] Allergy Unknown Verified 03/03/24 14:33 hydrogen peroxide Allergy murguia and Verified 03/03/24 14:33 causes infection latex Allergy passes out Verified 03/03/24 14:33 nickel Allergy turns skin Verified 03/03/24 14:33 black and passes out procaine HCl [From Novocain] Allergy passed Verified 03/03/24 14:33 out- due to epinephrine in it. thiopental sodium Allergy needed cpr Verified 03/03/24 14:33 [From Pentothal] resusitation methocarbamol [From Robaxin] AdvReac Hallucinati Verified 03/03/24 14:33 ons zinc oxide AdvReac Rash/Hives Verified 03/03/24 14:33 surgical felicita Allergy Severe had to be Uncoded 03/03/24 14:33 removed 2 days post-op petroleum products AdvReac passes out Uncoded 03/03/24 14:33 or does not feel well. (diesel, oils) Review of Systems ROS Statement: Those systems with pertinent positive or pertinent negative responses have been documented in the HPI. ROS Other: All systems not noted in ROS Statement are negative. Past Medical History Past Medical History: Atrial Fibrillation, Coronary Artery Disease (CAD), CVA/TIA, Diabetes Mellitus, Deep Vein Thrombosis (DVT), Hypertension, Myocardial Infarction (ME), Osteoarthritis (OA) Additional Past Medical History / Comment(s): hx tia, hx stroke behind left eye., lt eye macular , states hospitalized with Covid April 2019 with life support and stage 3 kidney failure., hx of fall with hip fx and surgery 01/13/22 went to [facility] for Rehab. DVT during ., varicose veins, states painful sore left heel., hx of t.b. as a child with scarring on lungs. Last Myocardial Infarction Date:: unknown date History of Any Multi-Drug Resistant Organisms: MRSA, VRE Date of last positivie culture/infection: 09/09/22 MRSA & VRE ([facility]-Scanned) MDRO Source:: Blood Culture Past Surgical History: Adenoidectomy, Hysterectomy, Orthopedic Surgery, Tonsillectomy, Tubal Ligation Additional Past Surgical History / Comment(s): pilonidal cyst twice as child, rt knee arthroscopy, krystyna cataracts, krystyna great toe sx, ORIF Left hip (01/13/22) Past Anesthesia/Blood Transfusion Reactions: Previous Problems w/ Anesthesia, Postoperative Nausea & Vomiting (PONV) Additional Past Anesthesia/Blood Transfusion Reaction / Comment(s): difficulty waking up after sx. clausterphobia. 1961 blood transfusion(during child ) pt stated had palpitations after 2nd unit given Past Psychological History: Anxiety Smoking Status: Never smoker Past Alcohol Use History: None Reported Past Drug Use History: None Reported - Past Family History Mother Family Medical History: Cancer Additional Family Medical History / Comment(s): lung cancer Father Family Medical History: Coronary Artery Disease (CAD) Additional Family Medical History / Comment(s): heart disease, kidney disese General Exam - General Exam Comments Initial Comments: GENERAL: Patient is well-developed and well-nourished. Patient is nontoxic and well- hydrated and is in mild distress. ENT: Neck is soft and supple. No significant lymphadenopathy is noted. Oropharynx is clear. Moist mucous membranes. Neck has full range of motion without eliciting any pain. EYES: The sclera were anicteric and conjunctiva were pink and moist. Extraocular movements were intact and pupils were equal round and reactive to light. Eyelids were unremarkable. PULMONARY: Unlabored respirations. Good breath sounds bilaterally. No audible rales rhonchi or wheezing was noted. CARDIOVASCULAR: There is a regular rate and rhythm without any murmurs gallops or rubs. ABDOMEN: Significantly distended abdomen consistent with ascites SKIN: Skin is clear with no lesions or rashes and otherwise unremarkable. NEUROLOGIC: Patient is alert and oriented x3. Cranial nerves II through XII are grossly intact. Motor and sensory are also intact. Normal speech, volume and content. Symmetrical smile. MUSCULOSKELETAL: Normal extremities with adequate strength and full range of motion. LYMPHATICS: No significant lymphadenopathy is noted PSYCHIATRIC: Normal psychiatric evaluation. Limitations: no limitations Course Vital Signs 03/03/24 03/03/24 13:32 15:45 Temperature 98.6 F Pulse Rate 62 60 Respiratory 18 18 Rate Blood Pressure 125/92 123/61 O2 Sat by Pulse 97 97 Oximetry Medical Decision Making - Medical Decision Making Was pt. sent in by a medical professional or institution (, PA, [employer], urgent care, hospital, or halfway...) When possible be specific @ -No Did you speak to anyone other than the patient for history (EMS, parent, family, police, friend...)? What history was obtained from this source @ -No Did you review nursing and triage notes (agree or disagree)? Why? @ -I reviewed and agree with nursing and triage notes Were old charts reviewed (outside hosp., previous admission, EMS record, old EKG, old radiological studies, urgent care reports/EKG's, halfway records)? Report findings @ -No old charts were reviewed Differential Diagnosis? @ -Differential Abdominal Pain Women: Appendicitis, Cholecystitis, diverticulosis, ischemic bowel, pancreatitis, ascites, hepatitis, UTI, gastroenteritis, AAA, incarcerated hernia, bowel obstruction, constipation, inflammatory bowel, hepatitis, peptic ulcer disease, splenic infarction, perforated viscus, vulvitis, ovarian torsion, PID, kidney stone, placenta abruption, this is not meant to be an all-inclusive list EKG interpreted by me (3pts min.). @ -As above X-rays interpreted by me (1pt min.). @ -None done CT interpreted by me (1pt min.). @ -None done U/S interpreted by me (1pt. min.). @ -None done What testing was considered but not performed or refused? (CT, X-rays, U/S, labs)? Why? @ -None What meds were considered but not given or refused? Why? @ -None Did you discuss the management of the patient with other professionals (professionals i.e. , PA, [employer], lab, RT, psych nurse, social media coordinator, button riveter, teacher, patient safety officer, field case manager)? Give summary @ -I spoke with Dr. Shirley he agreed to admit the patient. Was smoking cessation discussed for >3mins.? @ -No Was critical care preformed (if so, how long)? @ -No Were there social determinants of health that impacted care today? How? (Homelessness, low income, unemployed, alcoholism, drug addiction, transp ortation, low edu. Level, literacy, decrease access to med. care, halfway, rehab)? @ -No Was there de-escalation of care discussed even if they declined (Discuss DNR or withdrawal of care, Hospice)? DNR status @ -No What co-morbidities impacted this encounter? (DM, HTN, Smoking, COPD, CAD, Cancer, CVA, ARF, Chemo, Hep., AIDS, mental health diagnosis, sleep apnea, morbid obesity)? @ -None Was patient admitted / discharged? Hospital course, mention meds given and route, prescriptions, significant lab abnormalities, going to OR and other pertinent info. @ -Patient's abdomen is significant distended and she has a history of ascites so patient will come in to get a paracentesis. Patient will be admitted to Dr. Shirley Undiagnosed new problem with uncertain prognosis? @ -No Drug Therapy requiring intensive monitoring for toxicity (Heparin, Nitro, Insulin, Cardizem)? @ -No Were any procedures done? @ -No Diagnosis/symptom? @ -Ascites Acute, or Chronic, or Acute on Chronic? @ -Acute Uncomplicated (without systemic symptoms) or Complicated (systemic symptoms)? @ -Complicated Side effects of treatment? @ -No Exacerbation, Progression, or Severe Exacerbation? @ -No Poses a threat to life or bodily function? How? (Chest pain, [place], ME, pneumonia, PE, COPD, DKA, ARF, appy, cholecystitis, CVA, Diverticulitis, Homicidal, Suicidal, threat to staff... and all critical care pts) @ -No - Lab Data Result diagrams: 03/03/24 13:45 03/03/24 13:45 Lab Results 03/03/24 03/03/24 03/03/24 Range/Units 13:45 13:45 13:45 WBC 6.6 (3.8-10.6) k/uL RBC 4.05 (3.80-5.40) m/uL Hgb 11.9 (11.4-16.0) gm/dL Hct 37.9 (34.0-46.0) % MCV 93.6 (80.0-100.0) fL MCH 29.4 (25.0-35.0) pg MCHC 31.4 (31.0-37.0) g/dL RDW 17.2 H (11.5-15.5) % Plt Count 193 (150-450) k/uL MPV 8.2 Neutrophils % 70 % Lymphocytes % 14 % Monocytes % 5 % Eosinophils % 10 % Basophils % 0 % Neutrophils # 4.6 (1.3-7.7) k/uL Lymphocytes # 1.0 (1.0-4.8) k/uL Monocytes # 0.3 (0-1.0) k/uL Eosinophils # 0.6 (0-0.7) k/uL Basophils # 0.0 (0-0.2) k/uL Hypochromasia Moderate Anisocytosis Slight PT 12.6 H (10.0-12.5) sec INR 1.2 H (<1.2) APTT 26.6 (22.0-30.0) sec Sodium 138 (137-145) mmol/L Potassium 4.6 (3.5-5.1) mmol/L Chloride 107 (98-107) mmol/L Carbon Dioxide 27 (22-30) mmol/L Anion Gap 4 mmol/L BUN 41 H (7-17) mg/dL Creatinine 1.22 H (0.52-1.04) mg/dL Est GFR (CKD-EPI)AfAm 48 (>60 ml/min/1.73 sqM) Est GFR (CKD-EPI)NonAf 42 (>60 ml/min/1.73 sqM) Glucose 220 H (74-99) mg/dL Calcium 8.7 (8.4-10.2) mg/dL Total Bilirubin 0.5 (0.2-1.3) mg/dL AST 38 H (14-36) U/L ALT 17 (4-34) U/L Alkaline Phosphatase 121 (38-126) U/L Total Protein 6.1 L (6.3-8.2) g/dL Albumin 2.8 L (3.5-5.0) g/dL Disposition Clinical Impression: Ascites Disposition: ADMITTED IP TO THIS [facility] Referrals: Luis Shirley MD [Primary Care Provider] - 1-2 days Time of Disposition: 16:53
[2024-03-03] MEDS ORDERED: MORPHINE SULFATE 2 MG/ML SYRINGE IVP PRN (17:49)
[2024-03-03 20:05] LABS: Glucose,Whole Blood 161 mg/dL (70-110)
[2024-03-03] MEDS ORDERED: AMMONIUM LACTATE 12% LOTION 225 GM BTL TOPICAL PRN (21:33)
[2024-03-03] MEDS ORDERED: ALPRAZolam 0.25 MG TAB PO PRN (21:33)
[2024-03-03] MEDS ORDERED: ALBUTEROL NEBULIZED 2.5 MG/3 ML INHALATION PRN (21:33)
[2024-03-03] MEDS ORDERED: VITS A & D-WHITE PET-LANOLIN TUBE TOPICAL PRN (21:33)
[2024-03-04] MEDS: INSULIN DETEMIR (LEVEMIR) 100 UNIT/ML SYR SQ SCH ×2 (00:32→06:37)
[2024-03-04] MEDS: MENTHOL-ZINC OXIDE OINT 113 GM TUBE TOPICAL SCH (00:44)
[2024-03-04] MEDS: ZINC OXIDE 20% OINT 28.4 GM TUBE TOPICAL SCH (00:44)
[2024-03-04 05:43] LABS: Glucose,Whole Blood 128 mg/dL (70-110)
[2024-03-04] MEDS: PANTOPRAZOLE 40 MG TABLET PO SCH (06:35)
[2024-03-04] MEDS: VIT A,C & E-LUTEIN-MINERALS 1 EACH TAB PO SCH (08:11)
[2024-03-04] MEDS: ASPIRIN 81 MG PO SCH (08:11)
[2024-03-04] MEDS: SODIUM BICARBONATE TAB 650 MG TAB PO SCH (08:11)
[2024-03-04] MEDS: SACUBITRIL/VALSARTAN 24 MG-26 MG TABLET PO SCH (08:11)
[2024-03-04] MEDS: APIXABAN 5 MG TAB PO SCH (08:12)
[2024-03-04] MEDS: METOPROLOL TARTRATE 12.5 MG TAB PO SCH (08:12)
[2024-03-04] MEDS: MULTIVITAMINS, THERA 1 EACH TAB PO SCH (08:12)
[2024-03-04] MEDS: ASCORBIC ACID 500 MG TAB PO SCH (08:12)
[2024-03-04] MEDS: MAGNESIUM OXIDE 400 MG TAB PO SCH (08:12)
[2024-03-04] MEDS: CHOLECALCIFEROL 25 MCG (1000 IU) TABLET PO SCH (08:13)
[2024-03-04] MEDS: TORSEMIDE 20 MG TAB PO SCH (08:13)
[2024-03-04] MEDS: carvediloL 3.125 MG TAB PO SCH (08:13)
[2024-03-04] MEDS: POTASSIUM CHLORIDE ER 20 MEQ TAB.ER PO SCH (08:13)
[2024-03-04] MEDS: ESCITALOPRAM 10 MG TAB PO SCH (08:13)
[2024-03-04] MEDS: ATORVASTATIN 20 MG TAB PO SCH (08:13)
[2024-03-04] MEDS: FUROSEMIDE 40 MG TAB PO SCH (08:13)
[2024-03-04] MEDS: NYSTATIN 100,000UNIT/GM CREAM 30 GM TUBE TOPICAL SCH (08:19)
[2024-03-04 08:35] LABS: HCT 31.3 % (37.2-46.3); HGB 9.8 g/dL (12.0-15.0); MCH 28.6 pg (27.0-32.0); MCHC 31.3 g/dL (32.0-37.0); MCV 91.3 FL (80.0-97.0); Mean Platelet Volume 11.2 FL (9.5-12.2); NRBC Per 100 WBC 0 X 10*3/uL (0.00-0.01); Platelet Count 183 X 10*3/uL (140-440); RBC 3.43 X 10*6/uL (4.10-5.20); RDW 18.6 % (11.5-14.5)
--- NOTE | 2024-03-04 08:39 | P.HPIM ---
History of Present Illness H&P Date: 03/04/24 Chief Complaint: ascites This is an 78-year-old female who presented to the emergency department with complaints of abdominal discomfort and increasing ascites. Patient recently admitted to [facility] for the same symptoms and did have paracentesis performed. Reportedly patient is scheduled in a few weeks for repeat paracentesis but her symptoms were worsening and she reports occasional shortness of breath so she came to the ER. She denies any fever or chills. Patient requesting consult with Dr. Murphy regarding her abdominal pain and past gallbladder issues. Vital signs are stable. She denies any shortness of breath this morning. Further medical history as noted below. Review of Systems Constitutional: Denies chills, Denies fever Cardiovascular: Denies chest pain, Denies dyspnea on exertion Respiratory: Denies cough, Denies dyspnea Gastrointestinal: Reports abdominal pain, Reports bloating, Denies nausea, Denies vomiting Musculoskeletal: Denies arm numbness/tingling, Denies leg numbness/tingling Neurological: Reports weakness, Denies headaches Past Medical History Past Medical History: Atrial Fibrillation, Coronary Artery Disease (CAD), CVA /TIA, Diabetes Mellitus, Deep Vein Thrombosis (DVT), Hypertension, Myocardial Infarction ([place]), Osteoarthritis (OA) Additional Past Medical History / Comment(s): hx tia, hx stroke behind left eye., lt eye macular , states hospitalized with Covid April 2019 with life support and stage 3 kidney failure., hx of fall with hip fx and surgery 01/13/22 went to [facility] for Rehab. DVT during ., varicose veins, states painful sore left heel., hx of t.b. as a child with scarring on lungs. Last Myocardial Infarction Date:: unknown date History of Any Multi-Drug Resistant Organisms: MRSA, VRE Date of last positivie culture/infection: 09/09/22 MRSA & VRE ([facility]-Scanned) MDRO Source:: Blood Culture Past Surgical History: Adenoidectomy, Hysterectomy, Orthopedic Surgery, Tonsillectomy, Tubal Ligation Additional Past Surgical History / Comment(s): pilonidal cyst twice as child, rt knee arthroscopy, krystyna cataracts, krystyna great toe sx, ORIF Left hip (01/13/22) Past Anesthesia/Blood Transfusion Reactions: Previous Problems w/ Anesthesia, Postoperative Nausea & Vomiting (PONV) Additional Past Anesthesia/Blood Transfusion Reaction / Comment(s): difficulty waking up after sx. clausterphobia. 1961 blood transfusion(during child ) pt stated had palpitations after 2nd unit given Past Psychological History: Anxiety Smoking Status: Never smoker Past Alcohol Use History: None Reported Past Drug Use History: None Reported - Past Family History Mother Family Medical History: Cancer Additional Family Medical History / Comment(s): lung cancer Father Family Medical History: Coronary Artery Disease (CAD) Additional Family Medical History / Comment(s): heart disease, kidney disese Medications and Allergies Home Medications Medication Instructions Recorded Confirmed Type Apixaban [Eliquis] 5 mg PO BID 08/13/20 03/03/24 History Sacubitril/Valsartan [Entresto 24 1 tab PO BID 01/12/22 03/03/24 History mg-26 mg Tablet] Omeprazole [PriLOSEC] 20 mg PO DAILY 03/05/22 03/03/24 History Ipratropium [place] [Atrovent Hfa] 2 puff INHALATION RT-QID 09/09/22 03/03/24 History ALPRAZolam [Xanax] 0.25 mg PO TID PRN 05/30/23 03/03/24 History Ammonium Lactate Lotion 1 applic TOPICAL BID PRN 05/30/23 03/03/24 History [Lac-Hydrin 12% Lotion] Aspirin 81 mg PO DAILY 05/30/23 03/03/24 History Atorvastatin [Lipitor] 20 mg PO DAILY 05/30/23 03/03/24 History Cholecalciferol [Vitamin D3 (25 25 mcg PO DAILY 05/30/23 03/03/24 History Mcg = 1000 Iu)] Escitalopram [Lexapro] 10 mg PO DAILY 05/30/23 03/03/24 History Furosemide [Lasix] 80 mg PO DAILY 05/30/23 03/03/24 History Insulin Glargine,Hum.rec.anlog 16 - 18 units SQ HS 05/30/23 03/03/24 History [Toujeo Max Solostar] Insulin Glargine,Hum.rec.anlog 24 units SQ DAILY 05/30/23 03/03/24 History [Toujeo Max Solostar] Multivit-Min/FA/Lycopen/Lutein 1 tab PO DAILY 05/30/23 03/03/24 History [Centrum Silver Tablet] Potassium Chloride ER [K-Dur 20] 20 meq PO DAILY 05/30/23 03/03/24 History Albuterol Inhaler [Ventolin Hfa 2 puff INHALATION RT-QID PRN 01/09/24 03/03/24 History Inhaler] Ascorbic Acid [Vitamin C] 1,000 mg PO DAILY 01/09/24 03/03/24 History Vit C/E/Zn/Coppr/Lutein/Zeaxan 1 cap PO BID 01/09/24 03/03/24 History [Preservision Areds 2 Softgel] carvediloL [Coreg] 3.125 mg PO BID 01/09/24 03/03/24 History Magnesium Oxide [Mag-Ox] 400 mg PO DAILY #30 tab 01/16/24 03/03/24 Rx Nystatin 100,000Unit/gm Cream 1 applic TOPICAL BID #60 g 01/16/24 03/03/24 Rx [Mycostatin Cream] Sodium Bicarbonate Tab 650 mg PO BID #60 tab 01/16/24 03/03/24 Rx Torsemide [Demadex] 40 mg PO DAILY #30 tab 01/16/24 03/03/24 Rx Metoprolol Tartrate [Lopressor] 12.5 mg PO BID 01/30/24 03/03/24 History Menthol-Zinc Oxide Oint 1 applic TOPICAL DIRECTED 03/03/24 03/03/24 History [Calmoseptine Ointment] Periguard Ointment 1 applic TOPICAL DIRECTED 03/03/24 03/03/24 History Vits A and D/White Pet/Lanolin [A 1 applic TOPICAL DAILY PRN 03/03/24 03/03/24 History and D Ointment] Allergies Allergy/AdvReac Type Severity Reaction Status Date / Time shellfish derived [Shellfish] Allergy Severe vomiting Verified 03/03/24 14:33 -very ill adhesive Allergy skin red Verified 03/03/24 14:33 and murguia, tears skin aluminum Allergy skin turns Verified 03/03/24 14:33 black, passes out Antihistamines - Allergy heart Verified 03/03/24 14:33 Ethylenediamine palpitations codeine Allergy migraines Verified 03/03/24 14:33 epinephrine Allergy heart Verified 03/03/24 14:33 palpitations fluticasone [From Flonase] Allergy Unknown Verified 03/03/24 14:33 hydrogen peroxide Allergy murguia and Verified 03/03/24 14:33 causes infection latex Allergy passes out Verified 03/03/24 14:33 nickel Allergy turns skin Verified 03/03/24 14:33 black and passes out procaine HCl [From Novocain] Allergy passed Verified 03/03/24 14:33 out- due to epinephrine in it. thiopental sodium Allergy needed cpr Verified 03/03/24 14:33 [From Pentothal] resusitation methocarbamol [From Robaxin] AdvReac Hallucinati Verified 03/03/24 14:33 ons zinc oxide AdvReac Rash/Hives Verified 03/03/24 14:33 surgical felicita Allergy Severe had to be Uncoded 03/03/24 14:33 removed 2 days post-op petroleum products AdvReac passes out Uncoded 03/03/24 14:33 or does not feel well. (diesel, oils) Physical Exam Vitals: Vital Signs Temp Pulse Pulse Resp BP BP Pulse Ox 03/04/24 07:12 97.3 F L 65 16 121/72 94 L 03/04/24 02:00 98.1 F 62 17 115/78 93 L 03/03/24 19:59 99.0 F 66 18 152/83 97 03/03/24 17:42 60 18 141/67 98 03/03/24 15:45 60 18 123/61 97 03/03/24 13:32 98.6 F 62 18 125/92 97 Intake and Output 03/03/24 03/04/24 03/04/24 22:59 06:59 14:59 Intake Total 540 Balance 540 Intake: Oral 540 Other: Voiding Method Diaper Diaper Diaper # Voids 1 1 # Bowel Movements 1 Weight 83.007 kg - Constitutional General appearance: cooperative, no acute distress - EENT Eyes: PERRLA - Neck Neck: no lymphadenopathy, normal ROM, no rigidity - Respiratory Respiratory: bilateral: diminished - Cardiovascular Heart sounds: normal: S1, S2 - Gastrointestinal General gastrointestinal: distended, no tenderness - Integumentary Integumentary: normal, normal turgor - Musculoskeletal Musculoskeletal: generalized weakness - Psychiatric Psychiatric: A&O x's 3 Results CBC & Chem 7: 03/03/24 13:45 03/03/24 13:45 Labs: Abnormal Lab Results - Last 24 Hours (Table) 03/03/24 03/03/24 03/03/24 Range/Units 13:45 13:45 13:45 RDW 17.2 H (11.5-15.5) % PT 12.6 H (10.0-12.5) sec INR 1.2 H (<1.2) BUN 41 H (7-17) mg/dL Creatinine 1.22 H (0.52-1.04) mg/dL Glucose 220 H (74-99) mg/dL POC Glucose (mg/dL) (70-110) mg/dL AST 38 H (14-36) U/L Total Protein 6.1 L (6.3-8.2) g/dL Albumin 2.8 L (3.5-5.0) g/dL 03/03/24 03/04/24 Range/Units 20:03 05:42 RDW (11.5-15.5) % PT (10.0-12.5) sec INR (<1.2) BUN (7-17) mg/dL Creatinine (0.52-1.04) mg/dL Glucose (74-99) mg/dL POC Glucose (mg/dL) 161 H 128 H (70-110) mg/dL AST (14-36) U/L Total Protein (6.3-8.2) g/dL Albumin (3.5-5.0) g/dL Thrombosis Risk Factor Assmnt - Choose All That Apply Any of the Below Risk Factors Present?: Yes Each Risk Factor Represents 3 Points: Age 75 years or older, History of DVT/PE Thrombosis Risk Factor Assessment Total Risk Factor Score: 6 Thrombosis Risk Factor Assessment Level: High Risk Assessment and Plan (1) Ascites Current Visit: Yes Status: Acute Code(s): R18.8 - OTHER ASCITES SNOMED Code(s): 554788741 (2) Abdominal pain Current Visit: No Status: Acute Code(s): R10.9 - UNSPECIFIED ABDOMINAL PAIN SNOMED Code(s): 03088391 (3) Acute and chronic cholecystitis Current Visit: No Status: Acute Code(s): K81.2 - ACUTE CHOLECYSTITIS WITH CHRONIC CHOLECYSTITIS SNOMED Code(s): 053522398 (4) Atrial fibrillation Current Visit: No Status: Acute Code(s): I48.91 - UNSPECIFIED ATRIAL FIBRILLATION SNOMED Code(s): 39858035 (5) CAD (coronary artery disease) Current Visit: No Status: Acute Code(s): I25.10 - ATHSCL HEART DISEASE OF [place] CORONARY ARTERY W/O ANG PCTRS SNOMED Code(s): 97754038 (6) Diabetes Current Visit: No Status: Acute Code(s): E11.9 - TYPE 2 DIABETES MELLITUS WITHOUT COMPLICATIONS SNOMED Code(s): 59091865 (7) Hyperlipidemia Current Visit: No Status: Acute Code(s): E78.5 - HYPERLIPIDEMIA, UNSPECIFIED SNOMED Code(s): 22962001 (8) Hypertension Current Visit: No Status: Acute Code(s): I10 - ESSENTIAL (PRIMARY) HYPERTENSION SNOMED Code(s): 16147878 (9) 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 Murphy, patient aware she may not be on consult this week Patient seen and evaluated by nurse practitioner, physician in agreement with plan.
[2024-03-04 09:12] LABS: ALT 15 U/L (8-44); AST 29 U/L (13-35); Albumin 2.6 g/dL (3.8-4.9); Alkaline Phosphatase 100 U/L (41-126); BUN/Creat Ratio 26.93 Ratio (12.00-20.00); Blood Urea Nitrogen 37.7 mg/dL (9.0-27.0); Calcium 8.6 mg/dL (8.7-10.3); Carbon Dioxide 26.5 mmol/L (21.6-31.8); Chloride 108 mmol/L (96-109); Globulin 2.9 g/dL (1.6-3.3); Glucose 128 mg/dL (70-110); Potassium 4.4 mmol/L (3.5-5.5); Sodium 141 mmol/L (135-145); Total Bilirubin 0.3 mg/dL (0.3-1.2); Total Protein 5.5 g/dL (6.2-8.2)
[2024-03-04] MEDS: IPRATROPIUM 0.5 MG/2.5 ML NEBU INHALATION SCH (09:12)
[2024-03-04 12:37] LABS: Glucose,Whole Blood 100 mg/dL (70-110)
--- NOTE | 2024-03-04 12:54 | P.CONS ---
History of Present Illness - Reason for Consult Consult date: 03/04/24 Abdominal pain, patient request Requesting physician: Luis Shirley - Chief Complaint Ascites - History of Present Illness This is a pleasant 78-year-old female who had presented to the emergency department yesterday for complaints of abdominal distention and ascites. She h as a past medical history including atrial fibrillation on Eliquis, coronary artery disease, CVA/TIA, diabetes mellitus, DVT, hypertension, AR, osteoarthritis, chronic kidney disease and apparent with a recent diagnosis of liver disease with ascites. Patient states Dr. Shirley had diagnosed her with liver disease and he has been managing her ascites here at the hospital. States that he wanted her to follow with a [facility] specialist however she has no transportation. Patient states she has no transportation for doctors appointments or to get outpatient paracentesis done. She is on Lasix 80 mg daily and he has been taking it, she does not follow with nephrology. She is unclear of her underlying cause of liver disease. Denies any history of alcoholism. Has had diabetes since the 1980s and is obese. Patient states she has had 3 prior paracentesis. The last one was about 3 weeks ago. She was here and had a CT of the abdomen pelvis on 01/30/2024 that reported hepatic cirrhosis with recannulization of the periumbilical vein suggestive of portal hypertension with small to moderate ascites. During that hospitalization she had a paracentesis done on 02/02/2024 with 2.9 L removed. It appears she had a paracentesis 1 month prior on 01/13/2024 with 3.2 L removed. Patient is sched uled for paracentesis likely tomorrow as she had Eliquis today. WBCs 6.1 hemoglobin 9.8 hematocrit 31 platelet count 183,000 INR 1.2 liver enzymes are unremarkable, BUN 37 creatinine 1.4 total bilirubin 0.3 AST 29 ALT 15 alkaline phosphatase 100. Hepatitis panel negative from previous admission. Review of Systems REVIEW OF SYSTEMS: CARDIOPULMONARY: No chest pain, positive shortness of breath. Gastrointestinal: No abdominal pain. Patient reports abdominal pressure from distention from ascites. No nausea or vomiting. No hematemesis, coffee-ground emesis. No rectal bleeding, or melena. GENITOURINARY: No dysuria or hematuria. MUSCULOSKELETAL: Reports normal range of motion., Joint pain. Right hip pain. SKIN: No rashes. No jaundice. ENDOCRINE: No chills, fevers. No excessive weight gain or loss. No polydipsia or polyuria. PSYCHIATRIC: Unremarkable. NEUROLOGY: No change in mental status. Denies dizziness, headache. ENT: Vision unremarkable. CONSTITUTIONAL: No recent weight loss. No fever, chills, night sweats. Past Medical History Past Medical History: Atrial Fibrillation, Coronary Artery Disease (CAD), CV A/TIA, Diabetes Mellitus, Deep Vein Thrombosis (DVT), Hypertension, Myocardial Infarction (AR), Osteoarthritis (OA) Additional Past Medical History / Comment(s): hx tia, hx stroke behind left eye., lt eye macular , states hospitalized with Covid April 2019 with life support and stage 3 kidney failure., hx of fall with hip fx and surgery 01/13/22 went to [facility] for Rehab. DVT during ., varicose veins, states painful sore left heel., hx of t.b. as a child with scarring on lungs. 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 clausterphobia. 1960 blood transfusion(during child ) pt stated had palpitations after 2nd unit given Past Psychological History: Anxiety Smoking Status: Never smoker Past Alcohol Use History: None Reported Past Drug Use History: None Reported - Past Family History Mother Family Medical History: Cancer Additional Family Medical History / Comment(s): lung cancer Father Family Medical History: Coronary Artery Disease (CAD) Additional Family Medical History / Comment(s): heart disease, kidney disese Medications and Allergies Home Medications Medication Instructions Recorded Confirmed Type Apixaban [Eliquis] 5 mg PO BID 08/13/20 03/03/24 History Sacubitril/Valsartan [Entresto 24 1 tab PO BID 01/12/22 03/03/24 History mg-26 mg Tablet] Omeprazole [PriLOSEC] 20 mg PO DAILY 03/05/22 03/03/24 History Ipratropium [place] [Atrovent Hfa] 2 puff INHALATION RT-QID 09/09/22 03/03/24 History ALPRAZolam [Xanax] 0.25 mg PO TID PRN 05/30/23 03/03/24 History Ammonium Lactate Lotion 1 applic TOPICAL BID PRN 05/30/23 03/03/24 History [Lac-Hydrin 12% Lotion] Aspirin 81 mg PO DAILY 05/30/23 03/03/24 History Atorvastatin [Lipitor] 20 mg PO DAILY 05/30/23 03/03/24 History Cholecalciferol [Vitamin D3 (25 25 mcg PO DAILY 05/30/23 03/03/24 History Mcg = 1000 Iu)] Escitalopram [Lexapro] 10 mg PO DAILY 05/30/23 03/03/24 History Furosemide [Lasix] 80 mg PO DAILY 05/30/23 03/03/24 History Insulin Glargine,Hum.rec.anlog 16 - 18 units SQ HS 05/30/23 03/03/24 History [Toujeo Max Solostar] Insulin Glargine,Hum.rec.anlog 24 units SQ DAILY 05/30/23 03/03/24 History [Toujeo Max Solostar] Multivit-Min/FA/Lycopen/Lutein 1 tab PO DAILY 05/30/23 03/03/24 History [Centrum Silver Tablet] Potassium Chloride ER [K-Dur 20] 20 meq PO DAILY 05/30/23 03/03/24 History Albuterol Inhaler [Ventolin Hfa 2 puff INHALATION RT-QID PRN 01/09/24 03/03/24 History Inhaler] Ascorbic Acid [Vitamin C] 1,000 mg PO DAILY 01/09/24 03/03/24 History Vit C/E/Zn/Coppr/Lutein/Zeaxan 1 cap PO BID 01/09/24 03/03/24 History [Preservision Areds 2 Softgel] carvediloL [Coreg] 3.125 mg PO BID 01/09/24 03/03/24 History Magnesium Oxide [Mag-Ox] 400 mg PO DAILY #30 tab 01/16/24 03/03/24 Rx Nystatin 100,000Unit/gm Cream 1 applic TOPICAL BID #60 g 01/16/24 03/03/24 Rx [Mycostatin Cream] Sodium Bicarbonate Tab 650 mg PO BID #60 tab 01/16/24 03/03/24 Rx Torsemide [Demadex] 40 mg PO DAILY #30 tab 01/16/24 03/03/24 Rx Metoprolol Tartrate [Lopressor] 12.5 mg PO BID 01/30/24 03/03/24 History Menthol-Zinc Oxide Oint 1 applic TOPICAL DIRECTED 03/03/24 03/03/24 History [Calmoseptine Ointment] Periguard Ointment 1 applic TOPICAL DIRECTED 03/03/24 03/03/24 History Vits A and D/White Pet/Lanolin [A 1 applic TOPICAL DAILY PRN 03/03/24 03/03/24 History and D Ointment] Allergies Allergy/AdvReac Type Severity Reaction Status Date / Time shellfish derived [Shellfish] Allergy Severe vomiting Verified 03/03/24 14:33 -very ill adhesive Allergy skin red Verified 03/03/24 14:33 and murguia, tears skin aluminum Allergy skin turns Verified 03/03/24 14:33 black, passes out Antihistamines - Allergy heart Verified 03/03/24 14:33 Ethylenediamine palpitations codeine Allergy migraines Verified 03/03/24 14:33 epinephrine Allergy heart Verified 03/03/24 14:33 palpitations fluticasone [From Flonase] Allergy Unknown Verified 03/03/24 14:33 hydrogen peroxide Allergy murguia and Verified 03/03/24 14:33 causes infection latex Allergy passes out Verified 03/03/24 14:33 nickel Allergy turns skin Verified 03/03/24 14:33 black and passes out procaine HCl [From Novocain] Allergy passed Verified 03/03/24 14:33 out- due to epinephrine in it. thiopental sodium Allergy needed cpr Verified 03/03/24 14:33 [From Pentothal] resusitation methocarbamol [From Robaxin] AdvReac Hallucinati Verified 03/03/24 14:33 ons zinc oxide AdvReac Rash/Hives Verified 03/03/24 14:33 surgical felicita Allergy Severe had to be Uncoded 03/03/24 14:33 removed 2 days post-op petroleum products AdvReac passes out Uncoded 03/03/24 14:33 or does not feel well. (diesel, oils) Physical Exam Vitals: Vital Signs Temp Pulse Pulse Resp BP BP Pulse Ox 03/04/24 07:12 97.3 F L 65 16 121/72 94 L 03/04/24 02:00 98.1 F 62 17 115/78 93 L 03/03/24 19:59 99.0 F 66 18 152/83 97 03/03/24 17:42 60 18 141/67 98 03/03/24 15:45 60 18 123/61 97 03/03/24 13:32 98.6 F 62 18 125/92 97 Intake and Output 03/03/24 03/04/24 03/04/24 22:59 06:59 14:59 Intake Total 540 Balance 540 Intake: Oral 540 Other: Voiding Method Diaper Diaper Diaper # Voids 1 1 # Bowel Movements 1 Weight 83.007 kg General appearance: The patient is alert, oriented, appears in no acute distress. HET: Head is normocephalic and atraumatic. Conjunctiva pink. Sclera anicteric. Neck: Supple without lymphadenopathy. Trachea midline. Heart: Regular. Lungs: Equal expansion, normal respiratory effort. Abdomen: Soft, nontender, distention with ascites. Skin: No rashes. No jaundice. Extremities: Normal skin color and turgor. Lower extremity edema. Neurological: No focal deficits. Alert and oriented x3. Results CBC & Chem 7: 03/04/24 05:11 03/04/24 05:07 Labs: Abnormal Lab Results - Last 24 Hours (Table) 03/03/24 03/03/24 03/03/24 Range/Units 13:45 13:45 13:45 RBC (4.10-5.20) X 10*6/uL Hgb (12.0-15.0) g/dL Hct (37.2-46.3) % MCHC (32.0-37.0) g/dL RDW 17.2 H (11.5-15.5) % PT 12.6 H (10.0-12.5) sec INR 1.2 H (<1.2) BUN 41 H (7-17) mg/dL Creatinine 1.22 H (0.52-1.04) mg/dL Est GFR (CKD-EPI) (>=60) BUN/Creatinine Ratio (12.00-20.00) Ratio Glucose 220 H (74-99) mg/dL POC Glucose (mg/dL) (70-110) mg/dL Calcium (8.7-10.3) mg/dL AST 38 H (14-36) U/L Total Protein 6.1 L (6.3-8.2) g/dL Albumin 2.8 L (3.5-5.0) g/dL Albumin/Globulin Ratio (1.60-3.17) Ratio 03/03/24 03/04/24 03/04/24 Range/Units 20:03 05:07 05:11 RBC 3.43 L (4.10-5.20) X 10*6/uL Hgb 9.8 L (12.0-15.0) g/dL Hct 31.3 L (37.2-46.3) % MCHC 31.3 L (32.0-37.0) g/dL RDW 18.6 H (11.5-15.5) % PT (10.0-12.5) sec INR (<1.2) BUN 37.7 H (7-17) mg/dL Creatinine (0.52-1.04) mg/dL Est GFR (CKD-EPI) 38 L (>=60) BUN/Creatinine Ratio 26.93 H (12.00-20.00) Ratio Glucose 128 H (74-99) mg/dL POC Glucose (mg/dL) 161 H (70-110) mg/dL Calcium 8.6 L (8.7-10.3) mg/dL AST (14-36) U/L Total Protein 5.5 L (6.3-8.2) g/dL Albumin 2.6 L (3.5-5.0) g/dL Albumin/Globulin Ratio 0.90 L (1.60-3.17) Ratio 03/04/24 Range/Units 05:42 RBC (4.10-5.20) X 10*6/uL Hgb (12.0-15.0) g/dL Hct (37.2-46.3) % MCHC (32.0-37.0) g/dL RDW (11.5-15.5) % PT (10.0-12.5) sec INR (<1.2) BUN (7-17) mg/dL Creatinine (0.52-1.04) mg/dL Est GFR (CKD-EPI) (>=60) BUN/Creatinine Ratio (12.00-20.00) Ratio Glucose (74-99) mg/dL POC Glucose (mg/dL) 128 H (70-110) mg/dL Calcium (8.7-10.3) mg/dL AST (14-36) U/L Total Protein (6.3-8.2) g/dL Albumin (3.5-5.0) g/dL Albumin/Globulin Ratio (1.60-3.17) Ratio Assessment and Plan (1) Ascites Narrative/Plan: 78-year-old female with reported new diagnosis of liver cirrhosis seen on CT scan abdomen and pelvis with ascites. no reported history of alcohol abuse currently or in the past. Patient has been longtime diabetic and obese, likely liver disease secondary to nonalcoholic fatty liver disease. Ascites secondary to portal hypertension from liver cirrhosis. Continue Lasix 80 mg daily for now. Will monitor creatinine. Will need to consider adding spironolactone if possible. Patient may need to follow-up with nephrology as well for diuretic management. Low-sodium diet. And outpatient follow-up with gastroenterology. Current Visit: Yes Status: Acute Code(s): R18.8 - OTHER ASCITES SNOMED Code(s): 957560394 (2) Obesity Current Visit: Yes Status: Acute Code(s): E66.9 - OBESITY, UNSPECIFIED SNOMED Code(s): 517576085 (3) Atrial fibrillation Current Visit: No Status: Acute Code(s): I48.91 - UNSPECIFIED ATRIAL FIBRILLATION SNOMED Code(s): 23670136 (4) CKD (chronic kidney disease) Current Visit: No Status: Acute Code(s): N18.9 - CHRONIC KIDNEY DISEASE, UNSPECIFIED SNOMED Code(s): 537357425 (5) Diabetes Current Visit: No Status: Acute Code(s): E11.9 - TYPE 2 DIABETES MELLITUS WITHOUT COMPLICATIONS SNOMED Code(s): 03862518 Plan: 1. Continue symptomatic and supportive care 2. Low-sodium diet 3. Continue Lasix as ordered, consider possible spironolactone depending on kidney function 4. Hold Eliquis for paracentesis 5. Will order liver serologies 6. Recommend strict glycemic control. Recommend weight loss 7. Recommend outpatient follow-up with gastroenterology Thank you for this consultation, we will continue to follow. Dr. Adolfo Murphy I agree with the dictator's note, documented as a scribe by Shantell Mandel.
[2024-03-04 17:21] LABS: Glucose,Whole Blood 193 mg/dL (70-110)
[2024-03-04 20:01] LABS: Glucose,Whole Blood 199 mg/dL (70-110)
[2024-03-05 05:35] LABS: Glucose,Whole Blood 72 mg/dL (70-110)
[2024-03-05 07:02] LABS: ALT 16 U/L (4-34); AST 32 U/L (14-36); African American GFR (CKD) 39 (>60 ml/min/1.73 sqM); Albumin 2.5 g/dL (3.5-5.0); Albumin/Globulin Ratio 0.8; Alkaline Phosphatase 109 U/L (38-126); Anion Gap 5 mmol/L; Blood Urea Nitrogen 40 mg/dL (7-17); Calcium 8.6 mg/dL (8.4-10.2); Carbon Dioxide 27 mmol/L (22-30); Chloride 108 mmol/L (98-107); Globulin 3.2 g/dL; Glucose 64 mg/dL (74-99); Non-African American GFR(CKD) 33 (>60 ml/min/1.73 sqM); Potassium 4.1 mmol/L (3.5-5.1); Sodium 140 mmol/L (137-145); Total Bilirubin 0.3 mg/dL (0.2-1.3); Total Protein 5.7 g/dL (6.3-8.2)
[2024-03-05 07:36] LABS: Glucose,Whole Blood 66 mg/dL (70-110)
[2024-03-05 07:55] LABS: Glucose,Whole Blood 79 mg/dL (70-110)
--- NOTE | 2024-03-05 08:22 | P.PN ---
Subjective Progress Note Date: 03/05/24 Principal diagnosis: The patient is an 78-year-old white female sent admitted for recurrent ascites. The patient is scheduled for paracentesis today. Complaints of lower extremity wound. Slept well. Minimal pain. No significant nausea, vomiting or diarrhea. Objective - Vital Signs Vital signs: Vital Signs Temp 98.2 F 03/05/24 06:55 Pulse 64 03/05/24 06:55 Resp 17 03/05/24 06:55 BP 141/64 03/05/24 06:55 Pulse Ox 94 L 03/05/24 06:55 FiO2 Intake & Output 03/04/24 03/05/24 03/05/24 18:59 06:59 18:59 Intake Total 360 Balance 360 Intake: Oral 360 Other: Voiding Method Diaper Diaper # Voids 2 2 # Bowel Movements 0 1 - Constitutional General appearance: Present: obese - EENT Eyes: Absent: abnormal pupil - Neck Neck: Absent: lymphadenopathy - Respiratory Respiratory: bilateral: diminished - Cardiovascular Heart sounds: normal: S1, S2 Abnormal Heart Sounds: Absent: S3 Gallop - Gastrointestinal General gastrointestinal: Present: distended, soft. Absent: tenderness - Musculoskeletal Musculoskeletal: Present: generalized weakness - Psychiatric Psychiatric: Present: A&O x's 3 - Labs CBC & Chem 7: 03/04/24 05:11 03/05/24 06:32 Labs: Abnormal Lab Results - Last 24 Hours (Table) 03/04/24 03/04/24 03/04/24 Range/Units 05:07 05:11 17:17 RBC 3.43 L (4.10-5.20) X 10*6/uL Hgb 9.8 L (12.0-15.0) g/dL Hct 31.3 L (37.2-46.3) % MCHC 31.3 L (32.0-37.0) g/dL RDW 18.6 H (11.5-14.5) % Chloride (98-107) mmol/L BUN 37.7 H (9.0-27.0) mg/dL Creatinine (0.52-1.04) mg/dL Est GFR (CKD-EPI) 38 L (>=60) BUN/Creatinine Ratio 26.93 H (12.00-20.00) Ratio Glucose 128 H (70-110) mg/dL POC Glucose (mg/dL) 193 H (70-110) mg/dL Calcium 8.6 L (8.7-10.3) mg/dL Total Protein 5.5 L (6.2-8.2) g/dL Albumin 2.6 L (3.8-4.9) g/dL Albumin/Globulin Ratio 0.90 L (1.60-3.17) Ratio 03/04/24 03/05/24 03/05/24 Range/Units 19:59 06:32 07:34 RBC (4.10-5.20) X 10*6/uL Hgb (12.0-15.0) g/dL Hct (37.2-46.3) % MCHC (32.0-37.0) g/dL RDW (11.5-14.5) % Chloride 108 H (98-107) mmol/L BUN 40 H (9.0-27.0) mg/dL Creatinine 1.47 H (0.52-1.04) mg/dL Est GFR (CKD-EPI) (>=60) BUN/Creatinine Ratio (12.00-20.00) Ratio Glucose 64 L (70-110) mg/dL POC Glucose (mg/dL) 199 H 66 L (70-110) mg/dL Calcium (8.7-10.3) mg/dL Total Protein 5.7 L (6.2-8.2) g/dL Albumin 2.5 L (3.8-4.9) g/dL Albumin/Globulin Ratio (1.60-3.17) Ratio Assessment and Plan (1) Ascites Current Visit: Yes Status: Acute Code(s): R18.8 - OTHER ASCITES SNOMED Code(s): 783251029 (2) Obesity Current Visit: Yes Status: Acute Code(s): E66.9 - OBESITY, UNSPECIFIED SNOMED Code(s): 949314059 (3) Abdominal pain Current Visit: No Status: Acute Code(s): R10.9 - UNSPECIFIED ABDOMINAL PAIN SNOMED Code(s): 28914190 (4) Atrial fibrillation Current Visit: No Status: Acute Code(s): I48.91 - UNSPECIFIED ATRIAL FIBRILLATION SNOMED Code(s): 82210942 (5) CAD (coronary artery disease) Current Visit: No Status: Acute Code(s): I25.10 - ATHSCL HEART DISEASE OF [place] CORONARY ARTERY W/O ANG PCTRS SNOMED Code(s): 44248587 (6) Hyperlipidemia Current Visit: No Status: Acute Code(s): E78.5 - HYPERLIPIDEMIA, UNSPECIFIED SNOMED Code(s): 96092609 (7) Hypertension Current Visit: No Status: Acute Code(s): I10 - ESSENTIAL (PRIMARY) HYPERTENSION SNOMED Code(s): 65115932 Plan: Await paracentesis today. Check CBC and CMP in AM. Good trajectory of recovery at this time. Anticipate discharge in the a.m. Time with Patient: Less than 30
[2024-03-05] MEDS: SPIRONOLACTONE 25 MG TAB PO SCH (08:48)
[2024-03-05 09:05] LABS: Ceruloplasmin 31.7 mg/dL (20.0-60.0)
[2024-03-05 09:28] LABS: Alpha Fetoprotein, Tumor Mkr <3.00 ng/mL (0.00-7.90)
[2024-03-05 09:40] LABS: HCT 32.4 % (37.2-46.3); HGB 9.8 g/dL (12.0-15.0); MCH 28.1 pg (27.0-32.0); MCHC 30.2 g/dL (32.0-37.0); MCV 92.8 FL (80.0-97.0); Mean Platelet Volume 11.1 FL (9.5-12.2); NRBC Per 100 WBC 0 X 10*3/uL (0.00-0.01); Platelet Count 200 X 10*3/uL (140-440); RBC 3.49 X 10*6/uL (4.10-5.20); RDW 18.4 % (11.5-14.5); WBC 6.31 X 10*3/uL (4.50-10.00)
[2024-03-05 11:14] LABS: % Iron Saturation 9.74 (12.00-45.00)
--- NOTE | 2024-03-05 11:41 | P.PN ---
Subjective Progress Note Date: 03/05/24 Principal diagnosis: Ascites This is a pleasant 78-year-old female who had presented to the emergency department yesterday for complaints of abdominal distention and ascites. She has a past medical history including atrial fibrillation on Eliquis, coronary artery disease, CVA/TIA, diabetes mellitus, DVT, hypertension, VT, osteoarthritis, chronic kidney disease and apparent with a recent diagnosis of liver disease with ascites. Patient states Dr. Shirley had diagnosed her with liver disease and he has been managing her ascites here at the hospital. States that he wanted her to follow with a [facility] specialist however she has no transportation. Patient was seen by gastroenterology back in May of this year for an ERCP for concerns of possible choledocholithiasis however there is no findings of choledocholithiasis or biliary stricture. No filling defect. Patient states she has no transportation for doctors appointments or to get outpatient paracentesis done. She is on Lasix 80 mg daily and he has been taking it, she does not follow with nephrology. She is unclear of her underlying cause of liver disease. Denies any history of alcoholism. Has had diabetes since the 1980s and is obese. Patient states she has had 3 prior paracentesis. The last one was about 3 weeks ago. She was here and had a CT of the abdomen pelvis on 01/30/2024 that reported hepatic cirrhosis with recannulization of the periumbilical vein suggestive of portal hypertension with small to moderate ascites. During that hospitalization she had a paracentesis done on 02/02/2024 with 2.9 L removed. It appears she had a paracentesis 1 month prior on 01/13/2024 with 3.2 L removed. Patient is scheduled for paracentesis likely tomorrow as she had Eliquis today. WBCs 6.1 hemoglobin 9.8 hematocrit 31 platelet count 183,000 INR 1.2 liver enzymes are unremarkable, BUN 37 creatinine 1.4 total bilirubin 0.3 AST 29 ALT 15 alkaline phosphatase 100. 03/05/2024 Patient seen and examined today as a follow-up. She is scheduled to undergo paracentesis. She denies any abdominal pain, nausea or vomiting. She states that she feels full and a little short of breath due to the ascites. Liver serologies ordered, alpha 1 antitrypsin 175 ceruloplasmin 31 AFP less than 3. Rest are currently pending. LFTs are unremarkable. BUN 40 creatinine 1.4 Objective - Vital Signs Vital signs: Vital Signs Temp 98.5 F 03/05/24 01:17 Pulse 66 03/05/24 01:17 Resp 16 03/05/24 01:17 BP 118/71 03/05/24 01:17 Pulse Ox 96 03/05/24 01:17 FiO2 Intake & Output 03/04/24 03/04/24 03/05/24 06:59 18:59 06:59 Intake Total 360 Balance 360 Weight 83.007 kg Intake: Oral 360 Other: Voiding Method Diaper Diaper Diaper # Voids 1 2 2 # Bowel Movements 1 0 1 - Exam General appearance: The patient is alert, oriented, appears in no acute distress. HET: Head is normocephalic and atraumatic. Conjunctiva pink. Sclera anicteric. Neck: Supple without lymphadenopathy. Abdomen: Soft, nontender, mild distention, ascites. Extremities: Normal skin color and turgor. Lower extremity edema. Skin: No rashes, no jaundice Neurological: No focal deficits. Alert and oriented. - Labs CBC & Chem 7: 03/05/24 05:20 03/05/24 06:32 Labs: Abnormal Lab Results - Last 24 Hours (Table) 03/04/24 03/04/24 03/04/24 Range/Units 05:07 05:11 17:17 RBC 3.43 L (4.10-5.20) X 10*6/uL Hgb 9.8 L (12.0-15.0) g/dL Hct 31.3 L (37.2-46.3) % MCHC 31.3 L (32.0-37.0) g/dL RDW 18.6 H (11.5-14.5) % BUN 37.7 H (9.0-27.0) mg/dL Est GFR (CKD-EPI) 38 L (>=60) BUN/Creatinine Ratio 26.93 H (12.00-20.00) Ratio Glucose 128 H (70-110) mg/dL POC Glucose (mg/dL) 193 H (70-110) mg/dL Calcium 8.6 L (8.7-10.3) mg/dL Total Protein 5.5 L (6.2-8.2) g/dL Albumin 2.6 L (3.8-4.9) g/dL Albumin/Globulin Ratio 0.90 L (1.60-3.17) Ratio 03/04/24 Range/Units 19:59 RBC (4.10-5.20) X 10*6/uL Hgb (12.0-15.0) g/dL Hct (37.2-46.3) % MCHC (32.0-37.0) g/dL RDW (11.5-14.5) % BUN (9.0-27.0) mg/dL Est GFR (CKD-EPI) (>=60) BUN/Creatinine Ratio (12.00-20.00) Ratio Glucose (70-110) mg/dL POC Glucose (mg/dL) 199 H (70-110) mg/dL Calcium (8.7-10.3) mg/dL Total Protein (6.2-8.2) g/dL Albumin (3.8-4.9) g/dL Albumin/Globulin Ratio (1.60-3.17) Ratio Assessment and Plan (1) Ascites Narrative/Plan: 78-year-old female with reported new diagnosis of liver cirrhosis seen on CT scan abdomen and pelvis with ascites. no reported history of alcohol abuse currently or in the past. Patient has been longtime diabetic and obese, likely liver disease secondary to nonalcoholic fatty liver disease. Ascites secondary to portal hypertension from liver cirrhosis. Continue Lasix 80 mg daily for now. Will monitor creatinine. Will start patient on spironolactone 50 mg daily. Will need to continue to monitor outpatient kidney function. Paracentesis completed with 4.8 L removed. Albumin to be given. Fluid studies pending. Can follow-up in the office with gastroenterology in 1 to 2 weeks. Current Visit: Yes Status: Acute Code(s): R18.8 - OTHER ASCITES SNOMED Code(s): 313968295 (2) Obesity Current Visit: Yes Status: Acute Code(s): E66.9 - OBESITY, UNSPECIFIED SNOMED Code(s): 716803178 (3) Atrial fibrillation Current Visit: No Status: Acute Code(s): I48.91 - UNSPECIFIED ATRIAL FIBRILLATION SNOMED Code(s): 01121376 (4) CKD (chronic kidney disease) Current Visit: No Status: Acute Code(s): N18.9 - CHRONIC KIDNEY DISEASE, UNSPECIFIED SNOMED Code(s): 803551262 (5) Diabetes Current Visit: No Status: Acute Code(s): E11.9 - TYPE 2 DIABETES MELLITUS WITHOUT COMPLICATIONS SNOMED Code(s): 98297199 Plan: 1. Continue symptomatic and supportive care 2. Low-sodium diet 3. Continue Lasix as ordered, add spironolactone 50 mg daily. Discontinue torsemide 4. May resume Eliquis after paracentesis 5. Liver serologies ordered, currently pending 6. Recommend strict glycemic control. Recommend weight loss 7. Albumin ordered post paracentesis 8. Recommend outpatient follow-up with gastroenterology Thank you for this consultation, patient is cleared from gastroenterology for discharge. Follow-up in [address] Adolfo Murphy I agree with the dictator's note, documented as a scribe by Shantell Mandel.
[2024-03-05] MEDS: ALBUMIN HUMAN 25% 50 ML in EMPTY BAG 1 BAG IVPB SCH (11:56)
[2024-03-05 12:13] LABS: Glucose,Whole Blood 100 mg/dL (70-110)
--- NOTE | 2024-03-05 12:48 | US ---
EXAMINATION TYPE: US paracentesis abd w/image DATE OF EXAM: 03/05/2024 10:50 AM COMPARISON: prior paracentesis. CLINICAL INDICATION:Female, 78 years old with history of ascites; , ascites ATTENDING: Dr. Trevor Lockwood PROCEDURE: Informed consent was obtained. The risks of the procedure were extensively explained incl uding risk of damage to surrounding bowel with perforation and need for additional procedures. Proced ure was performed in the ultrasound procedure suite. Ultrasound imaging of the abdomen demonstrate as citic fluid. An appropriate access site was localized to the right lower abdomen. Timeout was taken p er protocol. The skin was prepped and draped in the usual sterile fashion and then locally anesthetiz ed with 1% lidocaine. The peritoneal cavity was then accessed via a 5-Vietnamese one-step needle/cathete r. Approximately 4800 mL of clear straw-colored fluid was obtained. Sample sent to lab for analysis Postprocedural imaging of the abdomen demonstrate a minimal amount of abdominal fluid. Patient tolerated procedure well without immediate complication. Hemostasis at the procedural site w as obtained with a sterile bandage placed. The patient was monitored in the holding area following th e procedure and was subsequently discharged in stable condition. IMPRESSION: Ultrasound guided paracentesis, with approximately 4800 mL of clear straw-colored fluid drained. Samp le sent to lab for analysis. No immediate complications were evident. [facility], , 03/05/2024 12:46 PM
[2024-03-05 13:14] VITALS: BMI 33.5
[2024-03-05 14:42] VITALS: BP 135/56; PULSE 69; RESP 17; TEMP 98.4
[2024-03-05 19:21] LABS: T. Protein, Body Fluid Source Ascites; Total Protein, Body Fluid 1740 mg/dL
[2024-03-05 19:43] LABS: Albumin, Fluid Source Ascites
[2024-03-05 20:44] LABS: Appearance,BF Clear (Clear)
== END 2024-03-05 18:02 | disposition home health service (06) ==
LOC: EC 13:28 → 6NMEDSUR 16:53
PROVIDERS: ADMIT Family Medicine; ATTEND Family Medicine
DX: R18.8 Other ascites (principal); K74.60 Unspecified cirrhosis of liver; K76.6 Portal hypertension; K81.2 Acute cholecystitis with chronic cholecystitis; L98.421 Non-pressure chronic ulcer of back limited to breakdown of skin; L98.411 Non-pressure chronic ulcer of buttock limited to breakdown of skin; I48.91 Unspecified atrial fibrillation; I25.10 Atherosclerotic heart disease of native coronary artery without angina pectoris; E11.22 Type 2 diabetes mellitus with diabetic chronic kidney disease; I12.9 Hypertensive chronic kidney disease with stage 1 through stage 4 chronic kidney disease, or unspecified chronic kidney disease; N18.30 Chronic kidney disease, stage 3 unspecified; F41.9 Anxiety disorder, unspecified; E78.5 Hyperlipidemia, unspecified; I25.2 Old myocardial infarction; E66.9 Obesity, unspecified; Z68.33 Body mass index [BMI] 33.0-33.9, adult; Z86.16 Personal history of COVID-19; Z86.718 Personal history of other venous thrombosis and embolism; Z86.73 Personal history of transient ischemic attack (TIA), and cerebral infarction without residual deficits; Z79.01 Long term (current) use of anticoagulants; Z79.82 Long term (current) use of aspirin; Z79.899 Other long term (current) drug therapy; Z79.4 Long term (current) use of insulin; Z88.5 Allergy status to narcotic agent; Z91.040 Latex allergy status
CPT/HCPCS: 96365; 96366; 99285; 36415; 94640 ×2; 80053 ×3; 82042; 89050; 83540; 83550; 85025; 85027 ×2; 85610; 85730; 83516; 82103; 82105; 82390; 86038; 87070; 87205; 87075; 84157; 49083; G0378 ×3; P9047

== ENCOUNTER 2024-04-06 17:49 | Observation (INO) | payer MEDICARE, OTHER ==
--- NOTE | 2024-04-06 18:19 | ED ---
General Adult HPI - General Chief complaint: Back Pain/Injury Stated complaint: BACK PAIN Time Seen by Provider: 04/06/24 18:01 Source: patient, EMS, RN notes reviewed, old records reviewed Mode of arrival: EMS - History of Present Illness Initial comments: 78-year-old female history of atrial fibrillation, liver disease resulting in ascites presenting with generalized abdominal swelling and pain and left lateral chest wall pain. Pain in the left lateral chest wall occurred while being moved in bed. Patient denies fever. She does report moderate dyspnea associated with her abdominal distention. She is scheduled for paracentesis but does not believe she can make it until the scheduled date. - Related Data Home Medications Medication Instructions Recorded Confirmed Apixaban [Eliquis] 5 mg PO BID 08/13/20 03/03/24 Sacubitril/Valsartan [Entresto 24 1 tab PO BID 01/12/22 03/03/24 mg-26 mg Tablet] Omeprazole [PriLOSEC] 20 mg PO DAILY 03/05/22 03/03/24 Ipratropium [place] [Atrovent Hfa] 2 puff INHALATION RT-QID 09/09/22 03/03/24 ALPRAZolam [Xanax] 0.25 mg PO TID PRN 05/30/23 03/03/24 Ammonium Lactate Lotion 1 applic TOPICAL BID PRN 05/30/23 03/03/24 [Lac-Hydrin 12% Lotion] Aspirin 81 mg PO DAILY 05/30/23 03/03/24 Atorvastatin [Lipitor] 20 mg PO DAILY 05/30/23 03/03/24 Cholecalciferol [Vitamin D3 (25 25 mcg PO DAILY 05/30/23 03/03/24 Mcg = 1000 Iu)] Escitalopram [Lexapro] 10 mg PO DAILY 05/30/23 03/03/24 Furosemide [Lasix] 80 mg PO DAILY 05/30/23 03/03/24 Insulin Glargine,Hum.rec.anlog 16 - 18 units SQ HS 05/30/23 03/03/24 [Toujeo Max Solostar] Insulin Glargine,Hum.rec.anlog 24 units SQ DAILY 05/30/23 03/03/24 [Toujeo Max Solostar] Multivit-Min/FA/Lycopen/Lutein 1 tab PO DAILY 05/30/23 03/03/24 [Centrum Silver Tablet] Potassium Chloride ER [K-Dur 20] 20 meq PO DAILY 05/30/23 03/03/24 Albuterol Inhaler [Ventolin Hfa 2 puff INHALATION RT-QID PRN 01/09/24 03/03/24 Inhaler] Ascorbic Acid [Vitamin C] 1,000 mg PO DAILY 01/09/24 03/03/24 Vit C/E/Zn/Coppr/Lutein/Zeaxan 1 cap PO BID 01/09/24 03/03/24 [Preservision Areds 2 Softgel] carvediloL [Coreg] 3.125 mg PO BID 01/09/24 03/03/24 Metoprolol Tartrate [Lopressor] 12.5 mg PO BID 01/30/24 03/03/24 Menthol-Zinc Oxide Oint 1 applic TOPICAL DIRECTED 03/03/24 03/03/24 [Calmoseptine Ointment] Periguard Ointment 1 applic TOPICAL DIRECTED 03/03/24 03/03/24 Vits A and D/White Pet/Lanolin [A 1 applic TOPICAL DAILY PRN 03/03/24 03/03/24 and D Ointment] Previous Rx's Medication Instructions Recorded Magnesium Oxide [Mag-Ox] 400 mg PO DAILY #30 tab 01/16/24 Nystatin 100,000Unit/gm Cream 1 applic TOPICAL BID #60 g 01/16/24 [Mycostatin Cream] Sodium Bicarbonate Tab 650 mg PO BID #60 tab 01/16/24 Torsemide [Demadex] 40 mg PO DAILY #30 tab 01/16/24 Allergies Allergy/AdvReac Type Severity Reaction Status Date / Time shellfish derived [Shellfish] Allergy Severe vomiting Verified 04/06/24 18:01 -very ill adhesive Allergy skin red Verified 04/06/24 18:01 and murguia, tears skin aluminum Allergy skin turns Verified 04/06/24 18:01 black, passes out Antihistamines - Allergy heart Verified 04/06/24 18:01 Ethylenediamine palpitations codeine Allergy migraines Verified 04/06/24 18:01 epinephrine Allergy heart Verified 04/06/24 18:01 palpitations fluticasone [From Flonase] Allergy Unknown Verified 04/06/24 18:01 hydrogen peroxide Allergy murguia and Verified 04/06/24 18:01 causes infection latex Allergy passes out Verified 04/06/24 18:01 nickel Allergy turns skin Verified 04/06/24 18:01 black and passes out procaine HCl [From Novocain] Allergy passed Verified 04/06/24 18:01 out- due to epinephrine in it. thiopental sodium Allergy needed cpr Verified 04/06/24 18:01 [From Pentothal] resusitation methocarbamol [From Robaxin] AdvReac Hallucinati Verified 04/06/24 18:01 ons zinc oxide AdvReac Rash/Hives Verified 04/06/24 18:01 surgical felicita Allergy Severe had to be Uncoded 04/06/24 18:01 removed 2 days post-op petroleum products AdvReac passes out Uncoded 04/06/24 18:01 or does not feel well. (diesel, oils) Review of Systems ROS Statement: Those systems with pertinent positive or pertinent negative responses have been documented in the HPI. ROS Other: All systems not noted in ROS Statement are negative. Past Medical History Past Medical History: Atrial Fibrillation, Coronary Artery Disease (CAD), CVA/TIA, Diabetes Mellitus, Deep Vein Thrombosis (DVT), Hypertension, Myocardial Infarction (DE), Osteoarthritis (OA) Additional Past Medical History / Comment(s): hx tia, hx stroke behind left eye., lt eye macular , states hospitalized with Covid April 2019 with life support and stage 3 kidney failure., hx of fall with hip fx and surgery 01/13/22 went to [facility] for Rehab. DVT during ., varicose veins, states painful sore left heel., hx of t.b. as a child with scarring on lungs. Last Myocardial Infarction Date:: unknown date History of Any Multi-Drug Resistant Organisms: MRSA, VRE Date of last positivie culture/infection: 09/09/22 MRSA & VRE ([facility]-Scanned) MDRO Source:: Blood Culture Past Surgical History: Adenoidectomy, Hysterectomy, Orthopedic Surgery, Tonsillectomy, Tubal Ligation Additional Past Surgical History / Comment(s): pilonidal cyst twice as child, rt knee arthroscopy, krystyna cataracts, krystyna great toe sx, ORIF Left hip (01/13/22) Past Anesthesia/Blood Transfusion Reactions: Previous Problems w/ Anesthesia, Postoperative Nausea & Vomiting (PONV) Additional Past Anesthesia/Blood Transfusion Reaction / Comment(s): difficulty waking up after sx. clausterphobia. 1961 blood transfusion(during child ) pt stated had palpitations after 2nd unit given Past Psychological History: Anxiety Smoking Status: Never smoker Past Alcohol Use History: None Reported Past Drug Use History: None Reported - Past Family History Mother Family Medical History: Cancer Additional Family Medical History / Comment(s): lung cancer Father Family Medical History: Coronary Artery Disease (CAD) Additional Family Medical History / Comment(s): heart disease, kidney disese General Exam General appearance: alert, in no apparent distress Head exam: Present: atraumatic, normocephalic Eye exam: Present: normal appearance, PERRL Neck exam: Present: normal inspection. Absent: tenderness, meningismus Respiratory exam: Present: chest wall tenderness, decreased breath sounds. Absent: respiratory distress Cardiovascular Exam: Present: regular rate, normal rhythm GI/Abdominal exam: Present: soft, distended, other (Positive fluid wave). Absent: tenderness, guarding Extremities exam: Present: pedal edema Neurological exam: Present: alert, oriented X3, CN II-XII intact. Absent: motor sensory deficit Psychiatric exam: Present: normal affect, normal mood Skin exam: Present: warm, dry Course Vital Signs 04/06/24 17:57 Temperature 98.2 F Pulse Rate 58 L Respiratory 18 Rate Blood Pressure 121/77 O2 Sat by Pulse 100 Oximetry Medical Decision Making - Medical Decision Making Was pt. sent in by a medical professional or institution (, PA, CLAIM ATTORNEY, urgent care, hospital, or retirement...) When possible be specific @ -No Did you speak to anyone other than the patient for history (EMS, parent, family, police, friend...)? What history was obtained from this source @ -No Did you review nursing and triage notes (agree or disagree)? Why? @ -I reviewed and agree with nursing and triage notes Were old charts reviewed (outside hosp., previous admission, EMS record, old EKG, old radiological studies, urgent care reports/EKG's, retirement records)? Report findings @ -No old charts were reviewed Differential Dyspnea: Coronary syndrome, arrhythmia, tamponade, asthma, COPD, pulmonary embolism, pneumonia, pneumothorax, pulmonary effusion, anaphylaxis, diabetic ketoacidosis, flailed chest, pulmonary contusion, diaphragmatic rupture, anemia, neuromuscular, this is not meant to be an all-inclusive list. ] EKG interpreted by me (3pts min.). @ -As above X-rays interpreted by me (1pt min.). @Chest x-ray negative for displaced rib fracture, no large effusion, no focal pn eumonia CT interpreted by me (1pt min.). @ -None done U/S interpreted by me (1pt. min.). @ -None done What testing was considered but not performed or refused? (CT, X-rays, U/S, labs)? Why? @ -None What meds were considered but not given or refused? Why? @ -None Did you discuss the management of the patient with other professionals (professionals i.e. , PA, CLAIM ATTORNEY, lab, RT, psych nurse, social research assistant, licensed physical therapy assistant, teacher, strategic debriefing officer, mental health case manager)? Give summary @ -[Dr. Shirley Was smoking cessation discussed for >3mins.? @ -No Was critical care preformed (if so, how long)? @ -No Were there social determinants of health that impacted care today? How? (Homelessness, low income, unemployed, alcoholism, drug addiction, transportation, low edu. Level, literacy, decrease access to med. care, half-way, rehab)? @ -No Was there de-escalation of care discussed even if they declined (Discuss DNR or withdrawal of care, Hospice)? DNR status @ -No What co-morbidities impacted this encounter? (DM, HTN, Smoking, COPD, CAD, Cancer, CVA, ARF, Chemo, Hep., AIDS, mental health diagnosis, sleep apnea, morbid obesity)? @ -[Recurrent ascites Was patient admitted / discharged? Hospital course, mention meds given and route, prescriptions, significant lab abnormalities, going to OR and other pertinent info. @ -78-year-old female presenting with abdominal distention, and pain in the left lateral chest wall worse with movement. There is no displaced rib fracture. No external signs of trauma. Patient has elevated potassium which is hemolyzed this will be repeated. She has chronic stable lab abnormalities otherwise. She is requiring a paracentesis and will be admitted for this procedure. Undiagnosed new problem with uncertain prognosis? @ -No Drug Therapy requiring intensive monitoring for toxicity (Heparin, Nitro, Insulin, Cardizem)? @ -No Were any procedures done? @ -No Diagnosis/symptom? @ -Recurrent ascites Acute, or Chronic, or Acute on Chronic? @ -Acute on chronic Uncomplicated (without systemic symptoms) or Complicated (systemic symptoms)? @ -Default Side effects of treatment? @ -No Exacerbation, Progression, or Severe Exacerbation? @ -No Poses a threat to life or bodily function? How? (Chest pain, [place], [place], pneumonia, PE, COPD, DKA, ARF, appy, cholecystitis, CVA, Diverticulitis, Homicidal, Suicidal, threat to staff... and all critical care pts) @Low risk at this time - Lab Data Result diagrams: 04/06/24 18:31 04/06/24 18:31 Lab Results 04/06/24 04/06/24 04/06/24 Range/Units 18:31 18:31 18:31 WBC 6.4 (3.8-10.6) k/uL RBC 3.94 (3.80-5.40) m/uL Hgb 11.4 (11.4-16.0) gm/dL Hct 36.1 (34.0-46.0) % MCV 91.6 (80.0-100.0) fL MCH 28.8 (25.0-35.0) pg MCHC 31.5 (31.0-37.0) g/dL RDW 15.2 (11.5-15.5) % Plt Count 202 (150-450) k/uL MPV 7.6 Neutrophils % 70 % Lymphocytes % 18 % Monocytes % 5 % Eosinophils % 6 % Basophils % 1 % Neutrophils # 4.4 (1.3-7.7) k/uL Lymphocytes # 1.1 (1.0-4.8) k/uL Monocytes # 0.3 (0-1.0) k/uL Eosinophils # 0.4 (0-0.7) k/uL Basophils # 0.0 (0-0.2) k/uL Hypochromasia Slight PT 12.1 (10.0-12.5) sec INR 1.1 (<1.2) APTT 26.6 (22.0-30.0) sec Sodium 139 (137-145) mmol/L Potassium 6.0 H (3.5-5.1) mmol/L Chloride 110 H (98-107) mmol/L Carbon Dioxide 23 (22-30) mmol/L Anion Gap 6 mmol/L BUN 53 H (7-17) mg/dL Creatinine 1.74 H (0.52-1.04) mg/dL Est GFR (CKD-EPI)AfAm 32 (>60 ml/min/1.73 sqM) Est GFR (CKD-EPI)NonAf 27 (>60 ml/min/1.73 sqM) Glucose 118 H (74-99) mg/dL Calcium 8.7 (8.4-10.2) mg/dL Magnesium 2.3 (1.6-2.3) mg/dL Total Bilirubin 0.6 (0.2-1.3) mg/dL AST 40 H (14-36) U/L ALT 18 (4-34) U/L Alkaline Phosphatase 89 (38-126) U/L NT-Pro-B Natriuret Pep 1200 pg/mL Total Protein 6.7 (6.3-8.2) g/dL Albumin 2.9 L (3.5-5.0) g/dL Disposition Clinical Impression: Cirrhosis of liver with ascites Disposition: ADMITTED IP TO THIS HOSP Condition: Stable Is patient prescribed a controlled substance at d/c from ED?: No Referrals: Luis Shirley MD [Primary Care Provider] - 1-2 days Time of Disposition: 19:53
[2024-04-06 18:41] LABS: Basophils % (A) 1 %; Eosinophils # (A) 0.4 k/uL (0-0.7); Eosinophils % (A) 6 %; HCT 36.1 % (34.0-46.0); HGB 11.4 gm/dL (11.4-16.0); Hypochromasia Slight; Lymphocytes # (A) 1.1 k/uL (1.0-4.8); Lymphocytes % (A) 18 %; MCH 28.8 pg (25.0-35.0); MCHC 31.5 g/dL (31.0-37.0); MCV 91.6 fL (80.0-100.0); Mean Platelet Volume 7.6; Monocytes # (A) 0.3 k/uL (0-1.0); Monocytes % (A) 5 %; Neutrophils # (A) 4.4 k/uL (1.3-7.7); Neutrophils % (A) 70 %; Platelet Count 202 k/uL (150-450); RBC 3.94 m/uL (3.80-5.40); RDW 15.2 % (11.5-15.5); WBC 6.4 k/uL (3.8-10.6)
[2024-04-06 18:51] LABS: INR 1.1 (<1.2); Partial Thromboplastin Time 26.6 sec (22.0-30.0); Prothrombin Time 12.1 sec (10.0-12.5)
[2024-04-06 18:53] LABS: African American GFR (CKD) 32 (>60 ml/min/1.73 sqM); Anion Gap 6 mmol/L; Blood Urea Nitrogen 53 mg/dL (7-17); Calcium 8.7 mg/dL (8.4-10.2); Carbon Dioxide 23 mmol/L (22-30); Chloride 110 mmol/L (98-107); Glucose 118 mg/dL (74-99); Non-African American GFR(CKD) 27 (>60 ml/min/1.73 sqM); Sodium 139 mmol/L (137-145); Total Bilirubin 0.6 mg/dL (0.2-1.3)
[2024-04-06 18:54] LABS: ALT 18 U/L (4-34)
[2024-04-06 19:01] LABS: NT-Pro-B-Type Natriuretic Pept 1200 pg/mL
--- NOTE | 2024-04-06 19:06 | XR ---
EXAMINATION TYPE: XR ribs LT w pa chest xray DATE OF EXAM: 04/06/2024 6:55 PM COMPARISON: None. CLINICAL INDICATION: Female, 78 years old with history of pain, pain TECHNIQUE: 2 view(s) obtained. Exam supplemented with frontal chest FINDINGS: Cardiomegaly is present. No pneumothorax is evident. No displaced rib fractures evident. IMPRESSION: 1. No acute displaced left rib fractures. 2. Cardiomegaly [facility], , 04/06/2024 7:04 PM
[2024-04-06 19:25] LABS: AST 40 U/L (14-36); Albumin 2.9 g/dL (3.5-5.0); Alkaline Phosphatase 89 U/L (38-126); Magnesium 2.3 mg/dL (1.6-2.3); Total Protein 6.7 g/dL (6.3-8.2)
[2024-04-06] MEDS ORDERED: HYDROmorphone 0.5 MG/0.5 ML SYRINGE IVP PRN (19:49)
[2024-04-06] MEDS ORDERED: NALOXONE 0.4 MG/ML 1 ML VIAL IV PRN (19:49)
[2024-04-07 03:57] LABS: ALT 16 U/L (4-34); AST 31 U/L (14-36); African American GFR (CKD) 31 (>60 ml/min/1.73 sqM); Albumin 2.5 g/dL (3.5-5.0); Alkaline Phosphatase 105 U/L (38-126); Anion Gap 5 mmol/L; Blood Urea Nitrogen 51 mg/dL (7-17); Calcium 8.7 mg/dL (8.4-10.2); Carbon Dioxide 20 mmol/L (22-30); Chloride 112 mmol/L (98-107); Glucose 103 mg/dL (74-99); Non-African American GFR(CKD) 27 (>60 ml/min/1.73 sqM); Potassium 5.2 mmol/L (3.5-5.1); Sodium 137 mmol/L (137-145); Total Bilirubin 0.5 mg/dL (0.2-1.3); Total Protein 5.8 g/dL (6.3-8.2)
[2024-04-07 06:38] LABS: Glucose,Whole Blood 103 mg/dL (70-110)
[2024-04-07 07:17] LABS: Appearance,Urine Cloudy (Clear); Bacteria,Urine Occasional /hpf; Bilirubin,Urine Negative (Negative); Blood,Urine Negative (Negative); Color,Urine Yellow; Glucose,Urine (UA) Negative (Negative); Hyaline Casts,Urine 9 /lpf (0-2); Ketones,Urine Negative (Negative); Leukocyte Esterase,Urine Small (Negative); Nitrite,Urine Negative (Negative); Protein,Urine Negative (Negative); RBC,Urine 2 /hpf (0-5); Specific Gravity,Urine 1.014 (1.001-1.035); Squamous Epithelial Cell,Urine 2 /hpf (0-4); Urobilinogen,Urine <2.0 mg/dL (<2.0); WBC,Urine 4 /hpf (0-5)
[2024-04-07] MEDS ORDERED: AMMONIUM LACTATE 12% LOTION 225 GM BTL TOPICAL PRN (08:05)
[2024-04-07] MEDS ORDERED: VITS A & D-WHITE PET-LANOLIN TUBE TOPICAL PRN (08:05)
[2024-04-07] MEDS ORDERED: ALBUTEROL NEBULIZED 2.5 MG/3 ML INHALATION PRN (08:05)
[2024-04-07] MEDS ORDERED: ALPRAZolam 0.25 MG TAB PO PRN (08:05)
[2024-04-07] MEDS ORDERED: PERIGUARD TOPICAL SCH (08:15)
--- NOTE | 2024-04-07 08:29 | P.HPIM ---
History of Present Illness H&P Date: 04/07/24 Chief Complaint: Ascites The patient is a 78-year-old white female who has been struggling with ascites for the past 3 to 6 months. She has been requiring paracentesis. She had a paracentesis about 5 to 6 weeks ago and she was stating significant abdominal protuberance. The patient stated more chest wall pain and is now scheduled for appropriate paracentesis. Past medical history includes atrial fibrillation history of venous thromboembolism with remote myocardial infarction. She is essentially bedridden and involuted at this time. She does struggle with intermittent cellulitis of the lower extremities as well. Multiple allergies are noted. Review of Systems Constitutional: Denies chills, Denies fever Eyes: denies blurred vision, denies pain Ears, nose, mouth and throat: Denies headache, Denies sore throat Cardiovascular: Denies chest pain, Denies shortness of breath Gastrointestinal: Reports as per HPI Genitourinary: Denies dysuria, Denies hematuria Past Medical History Past Medical History: No Reported History, Atrial Fibrillation, Coronary Artery Disease (CAD), CVA/TIA, Diabetes Mellitus, Deep Vein Thrombosis (DVT), Hypertension, Myocardial Infarction (SC), Osteoarthritis (OA) Additional Past Medical History / Comment(s): hx tia, hx stroke behind left eye., lt eye macular , states hospitalized with Covid April 2019 with life support and stage 3 kidney failure., hx of fall with hip fx and surgery 01/13/22 went to [facility] for Rehab. DVT during ., varicose veins, states painful sore left heel., hx of t.b. as a child with scarring on lungs. Last Myocardial Infarction Date:: unknown date History of Any Multi-Drug Resistant Organisms: MRSA, VRE Date of last positivie culture/infection: 09/09/22 MRSA & VRE ([facility]-Scanned) MDRO Source:: Blood Culture Past Surgical History: Adenoidectomy, Hysterectomy, Orthopedic Surgery, Tonsillectomy, Tubal Ligation Additional Past Surgical History / Comment(s): pilonidal cyst twice as child, rt knee arthroscopy, krystyna cataracts, krystyna great toe sx, ORIF Left hip (01/13/22) Past Anesthesia/Blood Transfusion Reactions: Previous Problems w/ Anesthesia, Postoperative Nausea & Vomiting (PONV) Additional Past Anesthesia/Blood Transfusion Reaction / Comment(s): difficulty waking up after sx. clausterphobia. 1961 blood transfusion(during child ) pt stated had palpitations after 2nd unit given Past Psychological History: Anxiety Smoking Status: Never smoker Past Alcohol Use History: None Reported Past Drug Use History: None Reported - Past Family History Mother Family Medical History: Cancer Additional Family Medical History / Comment(s): lung cancer Father Family Medical History: Coronary Artery Disease (CAD) Additional Family Medical History / Comment(s): heart disease, kidney disese Medications and Allergies Home Medications Medication Instructions Recorded Confirmed Type Apixaban [Eliquis] 5 mg PO BID 08/13/20 04/06/24 History Sacubitril/Valsartan [Entresto 24 1 tab PO BID 01/12/22 04/06/24 History mg-26 mg Tablet] Omeprazole [PriLOSEC] 20 mg PO DAILY 03/05/22 04/06/24 History Ipratropium [place] [Atrovent Hfa] 2 puff INHALATION RT-QID 09/09/22 04/06/24 History ALPRAZolam [Xanax] 0.25 mg PO TID PRN 05/30/23 04/06/24 History Ammonium Lactate Lotion 1 applic TOPICAL BID PRN 05/30/23 04/06/24 History [Lac-Hydrin 12% Lotion] Aspirin 81 mg PO DAILY 05/30/23 04/06/24 History Atorvastatin [Lipitor] 20 mg PO DAILY 05/30/23 04/06/24 History Cholecalciferol [Vitamin D3 (25 25 mcg PO DAILY 05/30/23 04/06/24 History Mcg = 1000 Iu)] Escitalopram [Lexapro] 10 mg PO DAILY 05/30/23 04/06/24 History Furosemide [Lasix] 80 mg PO DAILY 05/30/23 04/06/24 History Insulin Glargine,Hum.rec.anlog 16 - 18 units SQ HS 05/30/23 04/06/24 History [Toujeo Max Solostar] Insulin Glargine,Hum.rec.anlog 24 units SQ DAILY 05/30/23 04/06/24 History [Toujeo Max Solostar] Multivit-Min/FA/Lycopen/Lutein 1 tab PO DAILY 05/30/23 04/06/24 History [Centrum Silver Tablet] Potassium Chloride ER [K-Dur 20] 20 meq PO DAILY 05/30/23 04/06/24 History Albuterol Inhaler [Ventolin Hfa 2 puff INHALATION RT-QID PRN 01/09/24 04/06/24 History Inhaler] Ascorbic Acid [Vitamin C] 1,000 mg PO DAILY 01/09/24 04/06/24 History Vit C/E/Zn/Coppr/Lutein/Zeaxan 1 cap PO BID 01/09/24 04/06/24 History [Preservision Areds 2 Softgel] carvediloL [Coreg] 3.125 mg PO BID 01/09/24 04/06/24 History Magnesium Oxide [Mag-Ox] 400 mg PO DAILY #30 tab 01/16/24 04/06/24 Rx Nystatin 100,000Unit/gm Cream 1 applic TOPICAL BID #60 g 01/16/24 04/06/24 Rx [Mycostatin Cream] Sodium Bicarbonate Tab 650 mg PO BID #60 tab 01/16/24 04/06/24 Rx Torsemide [Demadex] 40 mg PO DAILY #30 tab 01/16/24 04/06/24 Rx Metoprolol Tartrate [Lopressor] 12.5 mg PO BID 01/30/24 04/06/24 History Menthol-Zinc Oxide Oint 1 applic TOPICAL DIRECTED 03/03/24 04/06/24 History [Calmoseptine Ointment] Periguard Ointment 1 applic TOPICAL DIRECTED 03/03/24 04/06/24 History Vits A and D/White Pet/Lanolin [A 1 applic TOPICAL DAILY PRN 03/03/24 04/06/24 History and D Ointment] Allergies Allergy/AdvReac Type Severity Reaction Status Date / Time shellfish derived [Shellfish] Allergy Severe vomiting Verified 04/06/24 20:10 -very ill adhesive Allergy skin red Verified 04/06/24 20:10 and murguia, tears skin aluminum Allergy skin turns Verified 04/06/24 20:10 black, passes out Antihistamines - Allergy heart Verified 04/06/24 20:10 Ethylenediamine palpitations codeine Allergy migraines Verified 04/06/24 20:10 epinephrine Allergy heart Verified 04/06/24 20:10 palpitations fluticasone [From Flonase] Allergy Unknown Verified 04/06/24 20:10 hydrogen peroxide Allergy murguia and Verified 04/06/24 20:10 causes infection latex Allergy passes out Verified 04/06/24 20:10 nickel Allergy turns skin Verified 04/06/24 20:10 black and passes out procaine HCl [From Novocain] Allergy passed Verified 04/06/24 20:10 out- due to epinephrine in it. thiopental sodium Allergy needed cpr Verified 04/06/24 20:10 [From Pentothal] resusitation methocarbamol [From Robaxin] AdvReac Hallucinati Verified 04/06/24 20:10 ons zinc oxide AdvReac Rash/Hives Verified 04/06/24 20:10 surgical felicita Allergy Severe had to be Uncoded 04/06/24 18:01 removed 2 days post-op petroleum products AdvReac passes out Uncoded 04/06/24 18:01 or does not feel well. (diesel, oils) Physical Exam Vitals: Vital Signs Temp Pulse Pulse Resp BP BP Pulse Ox 04/07/24 01:00 98.4 F 60 20 115/68 96 04/06/24 23:00 97.7 F 61 18 144/74 100 04/06/24 21:51 60 18 130/65 98 04/06/24 17:57 98.2 F 58 L 18 121/77 100 Intake and Output 04/06/24 04/07/24 04/07/24 22:59 06:59 14:59 Other: # Voids 3 Weight 83.915 kg 83.915 kg - Constitutional General appearance: cooperative, no acute distress, obese - EENT Eyes: no abnormal pupil - Neck Neck: no lymphadenopathy - Respiratory Respiratory: bilateral: diminished - Cardiovascular Rhythm: irregularly irregular Heart sounds: normal: S1, S2 Abnormal Heart Sounds: no S3 Gallop - Gastrointestinal General gastrointestinal: distended, soft Results CBC & Chem 7: 04/06/24 18:31 04/07/24 03:06 Labs: Abnormal Lab Results - Last 24 Hours (Table) 04/06/24 04/07/24 04/07/24 Range/Units 18:31 03:06 06:29 Potassium 6.0 H 5.2 H (3.5-5.1) mmol/L Chloride 110 H 112 H (98-107) mmol/L Carbon Dioxide 20 L (22-30) mmol/L BUN 53 H 51 H (7-17) mg/dL Creatinine 1.74 H 1.78 H (0.52-1.04) mg/dL Glucose 118 H 103 H (74-99) mg/dL AST 40 H (14-36) U/L Total Protein 5.8 L (6.3-8.2) g/dL Albumin 2.9 L 2.5 L (3.5-5.0) g/dL Urine Appearance Cloudy H (Clear) Ur Leukocyte Esterase Small H (Negative) Urine Bacteria Occasional H (None) /hpf Hyaline Casts 9 H (0-2) /lpf Thrombosis Risk Factor Assmnt - Choose All That Apply Each Risk Factor Represents 3 Points: Age 75 years or older Thrombosis Risk Factor Assessment Total Risk Factor Score: 3 Thrombosis Risk Factor Assessment Level: Moderate Risk Assessment and Plan (1) Cirrhosis of liver with ascites Current Visit: Yes Status: Acute Code(s): K74.60 - UNSPECIFIED CIRRHOSIS OF LIVER; R18.8 - OTHER ASCITES SNOMED Code(s): 39366488 (2) Abdominal pain Current Visit: No Status: Acute Code(s): R10.9 - UNSPECIFIED ABDOMINAL PAIN SNOMED Code(s): 61989130 (3) Acute and chronic cholecystitis Current Visit: No Status: Acute Code(s): K81.2 - ACUTE CHOLECYSTITIS WITH CHRONIC CHOLECYSTITIS SNOMED Code(s): 702793824 (4) Ascites Current Visit: No Status: Acute Code(s): R18.8 - OTHER ASCITES SNOMED Code(s): 375628979 (5) Atrial fibrillation Current Visit: No Status: Acute Code(s): I48.91 - UNSPECIFIED ATRIAL FIBRILLATION SNOMED Code(s): 43876905 (6) CKD (chronic kidney disease) Current Visit: No Status: Acute Code(s): N18.9 - CHRONIC KIDNEY DISEASE, UNSPECIFIED SNOMED Code(s): 027780130 (7) Diabetes Current Visit: No Status: Acute Code(s): E11.9 - TYPE 2 DIABETES MELLITUS WITHOUT COMPLICATIONS SNOMED Code(s): 33654539 (8) Hyperlipidemia Current Visit: No Status: Acute Code(s): E78.5 - HYPERLIPIDEMIA, UNSPECIFIED SNOMED Code(s): 59106948 (9) Hypertension Current Visit: No Status: Acute Code(s): I10 - ESSENTIAL (PRIMARY) HYPERTENSION SNOMED Code(s): 62547077 Plan: Interventional radiology has been consulted. Reconcile home medications. Check CBC and CMP in AM. Anticipate discharge in AM.
[2024-04-07] MEDS ORDERED: POTASSIUM CHLORIDE ER 20 MEQ TAB.ER PO SCH (09:00)
[2024-04-07] MEDS: APIXABAN 2.5 MG TABLET PO SCH (09:50)
[2024-04-07] MEDS: SODIUM BICARBONATE TAB 650 MG TAB PO SCH (11:02)
[2024-04-07] MEDS: CHOLECALCIFEROL 25 MCG (1000 IU) TABLET PO SCH (11:02)
[2024-04-07] MEDS: MULTIVITAMINS, THERA 1 EACH TAB PO SCH (11:02)
[2024-04-07] MEDS: ASPIRIN 81 MG PO SCH (11:02)
[2024-04-07] MEDS: ASCORBIC ACID 500 MG TAB PO SCH (11:02)
[2024-04-07] MEDS: SACUBITRIL/VALSARTAN 24 MG-26 MG TABLET PO SCH (11:03)
[2024-04-07] MEDS: TORSEMIDE 20 MG TAB PO SCH (11:03)
[2024-04-07] MEDS: MENTHOL-ZINC OXIDE OINT 113 GM TUBE TOPICAL SCH (11:03)
[2024-04-07] MEDS: ATORVASTATIN 20 MG TAB PO SCH (11:03)
[2024-04-07] MEDS: INSULIN DETEMIR (LEVEMIR) 100 UNIT/ML SYR SQ SCH ×2 (11:04→21:36)
[2024-04-07] MEDS: VIT A,C & E-LUTEIN-MINERALS 1 EACH TAB PO SCH (11:04)
[2024-04-07] MEDS: ESCITALOPRAM 10 MG TAB PO SCH (11:04)
[2024-04-07] MEDS: FUROSEMIDE 80 MG TAB PO SCH (11:04)
[2024-04-07] MEDS: carvediloL 3.125 MG TAB PO SCH (11:09)
[2024-04-07] MEDS: METOPROLOL TARTRATE 12.5 MG TAB PO SCH (11:09)
[2024-04-07] MEDS: MAGNESIUM OXIDE 400 MG TAB PO SCH (11:09)
[2024-04-07] MEDS: PANTOPRAZOLE 40 MG TABLET PO SCH (11:10)
[2024-04-07] MEDS: NYSTATIN 100,000UNIT/GM CREAM 30 GM TUBE TOPICAL SCH (11:10)
[2024-04-07 11:40] LABS: Glucose,Whole Blood 85 mg/dL (70-110)
[2024-04-07 16:38] LABS: Glucose,Whole Blood 169 mg/dL (70-110)
[2024-04-07 20:25] LABS: Glucose,Whole Blood 165 mg/dL (70-110)
--- NOTE | 2024-04-07 22:49 | US ---
EXAMINATION TYPE: US paracentesis abd w/image DATE OF EXAM: April 07, 2024 COMPARISON: 03/05/2024 prior paracentesis. CLINICAL INDICATION:Female, 78 years old with history of ascites; , ascites ATTENDING: Dr. Gay PROCEDURE: Informed consent was obtained. The risks of the procedure were extensively explained incl uding risk of damage to surrounding bowel with perforation and need for additional procedures. Proced ure was performed in the ultrasound procedure suite. Ultrasound imaging of the abdomen demonstrate ascitic fluid. An appropriate access site was localized to the right lower abdomen. Timeout was taken per protocol. The skin was prepped and draped in the u sual sterile fashion and then locally anesthetized with 1% lidocaine. The peritoneal cavity was then accessed via a 5-[place] one-step needle/catheter. Approximately 4800 mL of clear straw-colored flui d was obtained. Patient tolerated procedure well without immediate complication. Hemostasis at the procedural site w as obtained with a sterile bandage placed. The patient was monitored in the holding area following th e procedure and was subsequently sent back to patient's room within Hospital. IMPRESSION: Ultrasound guided paracentesis, with approximately 4800 mL of clear straw-colored fluid drained. No i mmediate complications were evident. [facility], , 04/07/2024 10:47 PM
[2024-04-08 06:36] LABS: Glucose,Whole Blood 77 mg/dL (70-110)
[2024-04-08 08:04] VITALS: BP 115/64; PULSE 68; RESP 18; TEMP 98.5
[2024-04-08] MEDS: IPRATROPIUM 0.5 MG/2.5 ML NEBU INHALATION SCH (08:14)
--- NOTE | 2024-04-08 08:56 | P.DS ---
Providers Date of admission: 04/06/24 19:50 Attending physician: Luis Shirley Primary care physician: Luis Shirley - Discharge Diagnosis(es) (1) Abdominal pain Current Visit: No Status: Acute (2) Ascites Current Visit: No Status: Acute (3) Atrial fibrillation Current Visit: No Status: Acute (4) CAD (coronary artery disease) Current Visit: No Status: Acute (5) Chronic wound Current Visit: No Status: Acute (6) Diabetes Current Visit: No Status: Acute Hospital Course: This is an 78-year-old female with a history of ascites who presented to the emergency department with complaints of increasing abdominal protuberance and pain. Patient has been requiring paracentesis in the past. She had paracentesis yesterday with 4800 mL. She is scheduled for an outpatient paracentesis in 2 weeks. Patient reports she is feeling much better this m orning and is eager to go home. Patient with a history of chronic wounds to lower extremities, reports she had a blister on her right ankle which recently popped and is now slightly red. Will send patient home on antibiotics for coverage. Patient seen and evaluated by nurse practitioner, physician in agreement with plan. Patient Condition at Discharge: Stable Plan - Discharge Summary Discharge Rx Participant: Yes New Discharge Prescriptions: New Cephalexin [Keflex] 500 mg PO Q6HR 7 Days #28 cap Continue Ipratropium [place] [Atrovent Hfa] 2 puff INHALATION RT-QID ALPRAZolam [Xanax] 0.25 mg PO TID PRN PRN Reason: Anxiety Aspirin 81 mg PO DAILY Atorvastatin [Lipitor] 20 mg PO DAILY Escitalopram [Lexapro] 10 mg PO DAILY Furosemide [Lasix] 80 mg PO DAILY Insulin Glargine,Hum.rec.anlog [Toujeo Max Solostar] 16 - 18 units SQ HS Insulin Glargine,Hum.rec.anlog [Toujeo Max Solostar] 24 units SQ DAILY Potassium Chloride ER [K-Dur 20] 20 meq PO DAILY carvediloL [Coreg] 3.125 mg PO BID Albuterol Inhaler [Ventolin Hfa Inhaler] 2 puff INHALATION RT-QID PRN PRN Reason: Shortness Of Breath Sodium Bicarbonate Tab 650 mg PO BID #60 tab Torsemide [Demadex] 40 mg PO DAILY #30 tab Menthol-Zinc Oxide Oint [Calmoseptine Ointment] 1 applic TOPICAL DIRECTED Periguard Ointment 1 applic TOPICAL DIRECTED Vits A and D/White Pet/Lanolin [A and D Ointment] 1 applic TOPICAL DAILY PRN PRN Reason: itching back Apixaban [Eliquis] 5 mg PO BID Sacubitril/Valsartan [Entresto 24 mg-26 mg Tablet] 1 tab PO BID Omeprazole [PriLOSEC] 20 mg PO DAILY Ammonium Lactate Lotion [Lac-Hydrin 12% Lotion] 1 applic TOPICAL BID PRN PRN Reason: DRY ITCHY SKIN Cholecalciferol [Vitamin D3 (25 Mcg = 1000 Iu)] 25 mcg PO DAILY Multivit-Min/FA/Lycopen/Lutein [Centrum Silver Tablet] 1 tab PO DAILY Vit C/E/Zn/Coppr/Lutein/Zeaxan [Preservision Areds 2 Softgel] 1 cap PO BID Ascorbic Acid [Vitamin C] 1,000 mg PO DAILY Magnesium Oxide [Mag-Ox] 400 mg PO DAILY #30 tab Nystatin 100,000Unit/gm Cream [Mycostatin Cream] 1 applic TOPICAL BID #60 g Metoprolol Tartrate [Lopressor] 12.5 mg PO BID Discharge Medication List Apixaban [Eliquis] 5 mg PO BID 08/13/20 [History] Sacubitril/Valsartan [Entresto 24 mg-26 mg Tablet] 1 tab PO BID 01/12/22 [History] Omeprazole [PriLOSEC] 20 mg PO DAILY 03/05/22 [History] Ipratropium [place] [Atrovent Hfa] 2 puff INHALATION RT-QID 09/09/22 [History] ALPRAZolam [Xanax] 0.25 mg PO TID PRN 05/30/23 [History] Ammonium Lactate Lotion [Lac-Hydrin 12% Lotion] 1 applic TOPICAL BID PRN 05/30/23 [History] Aspirin 81 mg PO DAILY 05/30/23 [History] Atorvastatin [Lipitor] 20 mg PO DAILY 05/30/23 [History] Cholecalciferol [Vitamin D3 (25 Mcg = 1000 Iu)] 25 mcg PO DAILY 05/30/23 [History] Escitalopram [Lexapro] 10 mg PO DAILY 05/30/23 [History] Furosemide [Lasix] 80 mg PO DAILY 05/30/23 [History] Insulin Glargine,Hum.rec.anlog [Toujeo Max Solostar] 16 - 18 units SQ HS 05/30/23 [History] Insulin Glargine,Hum.rec.anlog [Toujeo Max Solostar] 24 units SQ DAILY 05/30/23 [History] Multivit-Min/FA/Lycopen/Lutein [Centrum Silver Tablet] 1 tab PO DAILY 05/30/23 [History] Potassium Chloride ER [K-Dur 20] 20 meq PO DAILY 05/30/23 [History] Albuterol Inhaler [Ventolin Hfa Inhaler] 2 puff INHALATION RT-QID PRN 01/09/24 [History] Ascorbic Acid [Vitamin C] 1,000 mg PO DAILY 01/09/24 [History] Vit C/E/Zn/Coppr/Lutein/Zeaxan [Preservision Areds 2 Softgel] 1 cap PO BID 01/09/24 [History] carvediloL [Coreg] 3.125 mg PO BID 01/09/24 [History] Magnesium Oxide [Mag-Ox] 400 mg PO DAILY #30 tab 01/16/24 [Rx] Nystatin 100,000Unit/gm Cream [Mycostatin Cream] 1 applic TOPICAL BID #60 g 01/16/24 [Rx] Sodium Bicarbonate Tab 650 mg PO BID #60 tab 01/16/24 [Rx] Torsemide [Demadex] 40 mg PO DAILY #30 tab 01/16/24 [Rx] Metoprolol Tartrate [Lopressor] 12.5 mg PO BID 01/30/24 [History] Menthol-Zinc Oxide Oint [Calmoseptine Ointment] 1 applic TOPICAL DIRECTED 03/03/24 [History] Periguard Ointment 1 applic TOPICAL DIRECTED 03/03/24 [History] Vits A and D/White Pet/Lanolin [A and D Ointment] 1 applic TOPICAL DAILY PRN 03/03/24 [History] Cephalexin [Keflex] 500 mg PO Q6HR 7 Days #28 cap 04/08/24 [Rx] Follow up Appointment(s)/Referral(s): Luis Shirley MD [Primary Care Provider] - 1 Week (july due virtual visit with Dr. Shirley) [facility] [[facility]STA[facility]] - As Needed ([facility] will call you to schedule your in home nursing, physical therapy, and occupational therapy visits. ) Activity/Diet/Wound Care/Special Instructions: *Patient will need an ambulance at discharge - [phone] - form on chart Paracentesis scheduled for 04/20/24 @ 0815, please arrive 15 mins early for registration with Radiology Nursing at [facility]. Lucy held for 24 hours prior to procedure. Call [phone] if unable to attend this appointment. Discharge Disposition: HOME SELF-CARE
[2024-04-08 09:04] LABS: HCT 29.4 % (37.2-46.3); HGB 9.2 g/dL (12.0-15.0); MCH 28.8 pg (27.0-32.0); MCHC 31.3 g/dL (32.0-37.0); MCV 91.9 FL (80.0-97.0); NRBC Per 100 WBC 0 X 10*3/uL (0.00-0.01); Platelet Count 176 X 10*3/uL (140-440); RDW 15.7 % (11.5-14.5); WBC 6.23 X 10*3/uL (4.50-10.00)
[2024-04-08 09:27] LABS: ALT 14 U/L (8-44); AST 23 U/L (13-35); Albumin 2.2 g/dL (3.8-4.9); Albumin/Globulin Ratio 0.85 Ratio (1.60-3.17); Alkaline Phosphatase 91 U/L (41-126); Blood Urea Nitrogen 47.6 mg/dL (9.0-27.0); Calcium 8.1 mg/dL (8.7-10.3); Carbon Dioxide 21.8 mmol/L (21.6-31.8); Chloride 110 mmol/L (96-109); Globulin 2.6 g/dL (1.6-3.3); Glucose 94 mg/dL (70-110); Potassium 4.7 mmol/L (3.5-5.5); Sodium 140 mmol/L (135-145); Total Bilirubin 0.3 mg/dL (0.3-1.2); Total Protein 4.8 g/dL (6.2-8.2)
== END 2024-04-08 13:02 | disposition home health service (06) ==
LOC: EC 17:49 → 4SSUR 19:50
PROVIDERS: ADMIT Family Medicine; ATTEND Family Medicine
DX: R18.8 Other ascites (principal); K74.60 Unspecified cirrhosis of liver; K81.2 Acute cholecystitis with chronic cholecystitis; I48.91 Unspecified atrial fibrillation; I25.10 Atherosclerotic heart disease of native coronary artery without angina pectoris; E11.22 Type 2 diabetes mellitus with diabetic chronic kidney disease; I12.9 Hypertensive chronic kidney disease with stage 1 through stage 4 chronic kidney disease, or unspecified chronic kidney disease; N18.30 Chronic kidney disease, stage 3 unspecified; F41.9 Anxiety disorder, unspecified; E78.5 Hyperlipidemia, unspecified; S81.802A Unspecified open wound, left lower leg, initial encounter; S81.801A Unspecified open wound, right lower leg, initial encounter; X58.XXXA Exposure to other specified factors, initial encounter; I25.2 Old myocardial infarction; Z74.01 Bed confinement status; Z86.16 Personal history of COVID-19; Z86.718 Personal history of other venous thrombosis and embolism; Z86.73 Personal history of transient ischemic attack (TIA), and cerebral infarction without residual deficits; Z79.01 Long term (current) use of anticoagulants; Z79.4 Long term (current) use of insulin; Z79.82 Long term (current) use of aspirin; Z79.899 Other long term (current) drug therapy; Z88.5 Allergy status to narcotic agent; Z91.040 Latex allergy status
CPT/HCPCS: 99285; 36415; 83880; 80053 ×3; 83735; 85025; 85027; 85610; 85730; 81001; 71101; 49083; G0378 ×3

== ENCOUNTER 2024-05-20 07:49 | Day surgery (SDC) | payer MEDICARE, OTHER ==
[2024-05-20 08:09] LABS: Glucose,Whole Blood 116 mg/dL (70-110)
[2024-05-20 08:46] LABS: Mean Platelet Volume 7.5; Platelet Count 242 k/uL (150-450)
[2024-05-20 08:54] LABS: African American GFR (CKD) 5 (>60 ml/min/1.73 sqM); Non-African American GFR(CKD) 5 (>60 ml/min/1.73 sqM)
[2024-05-20 08:58] LABS: INR 1.2 (<1.2); Prothrombin Time 13.1 sec (10.0-12.5)
--- NOTE | 2024-05-20 10:23 | US ---
EXAMINATION TYPE: US discontinued paracentesis DATE OF EXAM: 05/20/2024 9:45 AM COMPARISON: prior paracentesis. CLINICAL INDICATION:Female, 78 years old with history of ascities; , ascites Technique: Limited grayscale imaging of the abdomen for ascites. After initial imaging labs returned with elevated creatinine. Patient was sent to the emergency room for further evaluation. Ultrasound guided paracentesis was discontinued. IMPRESSION: Moderate to large ascites. [facility], , 05/20/2024 10:20 AM
[2024-05-20 10:34] VITALS: BP 147/65; PULSE 60; RESP 16; TEMP 97.7
[2024-05-20] MEDS: ALBUMIN HUMAN 25% 50 ML in EMPTY BAG 1 BAG IVPB ONE (10:39)
== END 2024-05-20 10:25 | disposition home or self-care (01) ==
LOC: RADPROMAIN 07:49
PROVIDERS: ATTEND Internal Medicine Gastroenterology
DX: Z53.8 Procedure and treatment not carried out for other reasons (principal); R18.8 Other ascites
CPT/HCPCS: 36415; 76705; 82565; 85049; 85610

== ENCOUNTER 2024-05-20 10:19 | Inpatient (IN) | payer MEDICARE, OTHER ==
[2024-05-20 11:45] LABS: Basophils % (A) 0 %; Eosinophils # (A) 0.5 k/uL (0-0.7); Eosinophils % (A) 9 %; HCT 28.2 % (34.0-46.0); Hypochromasia Moderate; Lymphocytes # (A) 0.9 k/uL (1.0-4.8); Lymphocytes % (A) 17 %; MCH 27.6 pg (25.0-35.0); MCHC 29.2 g/dL (31.0-37.0); MCV 94.6 fL (80.0-100.0); Monocytes # (A) 0.3 k/uL (0-1.0); Monocytes % (A) 5 %; Neutrophils # (A) 3.8 k/uL (1.3-7.7); Neutrophils % (A) 68 %; Platelet Count 255 k/uL (150-450); RBC 2.98 m/uL (3.80-5.40); RDW 15.6 % (11.5-15.5); WBC 5.6 k/uL (3.8-10.6)
[2024-05-20 12:01] LABS: ALT 20 U/L (4-34); African American GFR (CKD) 6 (>60 ml/min/1.73 sqM); Albumin 2.8 g/dL (3.5-5.0); Anion Gap 12 mmol/L; Calcium 8.5 mg/dL (8.4-10.2); Carbon Dioxide 13 mmol/L (22-30); Chloride 109 mmol/L (98-107); Glucose 79 mg/dL (74-99); Non-African American GFR(CKD) 5 (>60 ml/min/1.73 sqM); Phosphorus 6.3 mg/dL (2.5-4.5); Sodium 134 mmol/L (137-145); Total Bilirubin 0.7 mg/dL (0.2-1.3); Total Protein 6.3 g/dL (6.3-8.2)
[2024-05-20 12:06] LABS: Blood Urea Nitrogen 116 mg/dL (7-17)
[2024-05-20 12:07] LABS: AST 34 U/L (14-36); Alkaline Phosphatase 73 U/L (38-126); Magnesium 2.6 mg/dL (1.6-2.3)
[2024-05-20 12:11] LABS: Potassium 8.6 mmol/L (3.5-5.1)
[2024-05-20 12:25] LABS: HGB 8.2 gm/dL (11.4-16.0)
[2024-05-20 13:00] LABS: ALT 17 U/L (4-34); AST 31 U/L (14-36); African American GFR (CKD) 6 (>60 ml/min/1.73 sqM); Albumin 2.6 g/dL (3.5-5.0); Alkaline Phosphatase 80 U/L (38-126); Anion Gap 10 mmol/L; Calcium 8.4 mg/dL (8.4-10.2); Carbon Dioxide 13 mmol/L (22-30); Chloride 111 mmol/L (98-107); Glucose 75 mg/dL (74-99); Non-African American GFR(CKD) 5 (>60 ml/min/1.73 sqM); Sodium 134 mmol/L (137-145); Total Bilirubin 0.4 mg/dL (0.2-1.3); Total Protein 5.7 g/dL (6.3-8.2)
[2024-05-20 13:07] LABS: Blood Urea Nitrogen 114 mg/dL (7-17)
--- NOTE | 2024-05-20 13:07 | ED ---
General Adult HPI - General Chief complaint: Recheck/Abnormal Lab/Rx Stated complaint: ABN LABS Time Seen by Provider: 05/20/24 10:30 Source: family Mode of arrival: wheelchair Limitations: no limitations - History of Present Illness Initial comments: 78-year-old female with past medical history of liver failure, chronic kidney disease who presents to the emergency department from outpatient imaging. Patient states that she has a paracentesis every 2 weeks due to her history of liver failure. Patient went today to have her paracentesis performed. She was reporting to some lightheadedness. Labs were obtained and the patient had significantly elevated potassium and creatinine. Procedure was canceled and patient was transferred down to the emergency room. She does admit to history of chronic kidney failure. No recent changes in her medications. Denies lack of oral intake. Reports that she continues to make urine. No burning, hematuria or dysuria. Denies any changes in her bowel habits to include diarrhea, constipation, black or bloody stools. Denies chest pain or difficulty breathing. No fevers. No other alleviating, precipitating or modifying factors - Related Data Home Medications Medication Instructions Recorded Confirmed Apixaban [Eliquis] 5 mg PO BID 08/13/20 05/20/24 Sacubitril/Valsartan [Entresto 24 1 tab PO BID 01/12/22 05/20/24 mg-26 mg Tablet] Omeprazole [PriLOSEC] 20 mg PO DAILY 03/05/22 05/20/24 Ipratropium [place] [Atrovent Hfa] 2 puff INHALATION RT-QID 09/09/22 05/20/24 ALPRAZolam [Xanax] 0.25 mg PO TID PRN 05/30/23 05/20/24 Ammonium Lactate Lotion 1 applic TOPICAL BID PRN 05/30/23 05/20/24 [Lac-Hydrin 12% Lotion] Aspirin 81 mg PO DAILY 05/30/23 05/20/24 Atorvastatin [Lipitor] 20 mg PO DAILY 05/30/23 05/20/24 Cholecalciferol [Vitamin D3 (25 25 mcg PO DAILY 05/30/23 05/20/24 Mcg = 1000 Iu)] Escitalopram [Lexapro] 10 mg PO DAILY 05/30/23 05/20/24 Furosemide [Lasix] 80 mg PO DAILY 05/30/23 05/20/24 Insulin Glargine,Hum.rec.anlog 16 - 18 units SQ HS 05/30/23 05/20/24 [Toujeo Max Solostar] Insulin Glargine,Hum.rec.anlog 24 units SQ DAILY 05/30/23 05/20/24 [Toujeo Max Solostar] Multivit-Min/FA/Lycopen/Lutein 1 tab PO DAILY 05/30/23 05/20/24 [Centrum Silver Tablet] Potassium Chloride ER [K-Dur 20] 20 meq PO DAILY 05/30/23 05/20/24 Albuterol Inhaler [Ventolin Hfa 2 puff INHALATION RT-QID PRN 01/09/24 05/20/24 Inhaler] Ascorbic Acid [Vitamin C] 1,000 mg PO DAILY 01/09/24 05/20/24 Vit C/E/Zn/Coppr/Lutein/Zeaxan 1 cap PO BID 01/09/24 05/20/24 [Preservision Areds 2 Softgel] carvediloL [Coreg] 3.125 mg PO BID 01/09/24 05/20/24 Metoprolol Tartrate [Lopressor] 12.5 mg PO BID 01/30/24 05/20/24 Menthol-Zinc Oxide Oint 1 applic TOPICAL DIRECTED 03/03/24 05/20/24 [Calmoseptine Ointment] Periguard Ointment 1 applic TOPICAL DIRECTED 03/03/24 05/20/24 Vits A and D/White Pet/Lanolin [A 1 applic TOPICAL DAILY PRN 03/03/24 05/20/24 and D Ointment] traMADol HCL 50 mg PO TID PRN 05/20/24 05/20/24 Previous Rx's Medication Instructions Recorded Magnesium Oxide [Mag-Ox] 400 mg PO DAILY #30 tab 01/16/24 Nystatin 100,000Unit/gm Cream 1 applic TOPICAL BID #60 g 01/16/24 [Mycostatin Cream] Sodium Bicarbonate Tab 650 mg PO BID #60 tab 01/16/24 Torsemide [Demadex] 40 mg PO DAILY #30 tab 01/16/24 Allergies Allergy/AdvReac Type Severity Reaction Status Date / Time shellfish derived [Shellfish] Allergy Severe vomiting Verified 05/20/24 12:30 -very ill adhesive Allergy skin red Verified 05/20/24 12:30 and murguia, tears skin aluminum Allergy skin turns Verified 05/20/24 12:30 black, passes out Antihistamines - Allergy heart Verified 05/20/24 12:30 Ethylenediamine palpitations codeine Allergy migraines Verified 05/20/24 12:30 epinephrine Allergy heart Verified 05/20/24 12:30 palpitations fluticasone [From Flonase] Allergy Unknown Verified 05/20/24 12:30 hydrogen peroxide Allergy murguia and Verified 05/20/24 12:30 causes infection latex Allergy passes out Verified 05/20/24 12:30 nickel Allergy turns skin Verified 05/20/24 12:30 black and passes out procaine HCl [From Novocain] Allergy passed Verified 05/20/24 12:30 out- due to epinephrine in it. thiopental sodium Allergy needed cpr Verified 05/20/24 12:30 [From Pentothal] resusitation methocarbamol [From Robaxin] AdvReac Hallucinati Verified 05/20/24 12:30 ons zinc oxide AdvReac Rash/Hives Verified 05/20/24 12:30 surgical felicita Allergy Severe had to be Uncoded 05/20/24 12:30 removed 2 days post-op petroleum products AdvReac passes out Uncoded 05/20/24 12:30 or does not feel well. (diesel, oils) Review of Systems ROS Statement: Those systems with pertinent positive or pertinent negative responses have been documented in the HPI. ROS Other: All systems not noted in ROS Statement are negative. Past Medical History Past Medical History: Atrial Fibrillation, Coronary Artery Disease (CAD), CVA/TIA, Diabetes Mellitus, Deep Vein Thrombosis (DVT), Hypertension, Myocardial Infarction (OK), Osteoarthritis (OA) Additional Past Medical History / Comment(s): hx tia, hx stroke behind left eye., lt eye macular , states hospitalized with Covid April 2019 with life support and stage 3 kidney failure., hx of fall with hip fx and surgery 01/13/22 went to [facility] for Rehab. DVT during ., varicose veins, states painful sore left heel., hx of t.b. as a child with scarring on lungs. Last Myocardial Infarction Date:: unknown date History of Any Multi-Drug Resistant Organisms: MRSA, VRE Date of last positivie culture/infection: 09/09/22 MRSA & VRE ([facility]-Scanned) MDRO Source:: Blood Culture Past Surgical History: Adenoidectomy, Hysterectomy, Orthopedic Surgery, Tonsillectomy, Tubal Ligation Additional Past Surgical History / Comment(s): pilonidal cyst twice as child, rt knee arthroscopy, krystyna cataracts, krystyna great toe sx, ORIF Left hip (01/13/22) Past Anesthesia/Blood Transfusion Reactions: Previous Problems w/ Anesthesia, Postoperative Nausea & Vomiting (PONV) Additional Past Anesthesia/Blood Transfusion Reaction / Comment(s): difficulty waking up after sx. clausterphobia. 1961 blood transfusion(during child ) pt stated had palpitations after 2nd unit given Past Psychological History: Anxiety Smoking Status: Never smoker Past Alcohol Use History: None Reported Past Drug Use History: None Reported - Past Family History Mother Family Medical History: Cancer Additional Family Medical History / Comment(s): lung cancer Father Family Medical History: Coronary Artery Disease (CAD) Additional Family Medical History / Comment(s): heart disease, kidney disese General Exam Limitations: no limitations General appearance: alert, in no apparent distress Head exam: Present: atraumatic, normocephalic, normal inspection Eye exam: Present: normal appearance, PERRL, EOMI. Absent: scleral icterus, conjunctival injection, periorbital swelling ENT exam: Present: normal exam, mucous membranes moist Neck exam: Present: normal inspection. Absent: tenderness, meningismus, lymphadenopathy Respiratory exam: Present: normal lung sounds bilaterally. Absent: respiratory distress, wheezes, rales, rhonchi, stridor Cardiovascular Exam: Present: normal rhythm, bradycardia, normal heart sounds. Absent: systolic murmur, diastolic murmur, rubs, gallop, clicks GI/Abdominal exam: Present: soft, normal bowel sounds. Absent: distended, tenderness, guarding, rebound, rigid Extremities exam: Present: normal capillary refill, pedal edema, other (soft boots on both legs). Absent: tenderness, joint swelling, calf tenderness Back exam: Present: normal inspection Neurological exam: Present: alert, oriented X3, CN II-XII intact Psychiatric exam: Present: normal affect, normal mood Skin exam: Present: warm, dry, intact, normal color. Absent: rash Course Vital Signs 05/20/24 05/20/24 05/20/24 10:28 12:30 12:54 Temperature 97.3 F L 98.3 F Pulse Rate 61 60 64 Respiratory 18 20 18 Rate Blood Pressure 121/57 126/51 118/59 O2 Sat by Pulse 99 100 100 Oximetry 05/20/24 05/20/24 05/20/24 13:00 13:15 13:25 Temperature Pulse Rate 61 61 58 L Respiratory 20 20 Rate Blood Pressure 118/58 96/83 O2 Sat by Pulse 100 100 Oximetry 05/20/24 05/20/24 05/20/24 13:38 13:59 14:05 Temperature 98.1 F Pulse Rate 62 61 61 Respiratory 18 18 Rate Blood Pressure 144/73 133/54 O2 Sat by Pulse 100 99 Oximetry 05/20/24 05/20/24 05/20/24 15:00 16:16 17:00 Temperature Pulse Rate 63 65 66 Respiratory 20 20 18 Rate Blood Pressure 108/49 132/107 138/57 O2 Sat by Pulse 98 99 97 Oximetry 05/20/24 05/20/24 18:00 18:51 Temperature 98.1 F 98.1 F Pulse Rate 76 Respiratory 18 Rate Blood Pressure 117/82 O2 Sat by Pulse 98 Oximetry - Reevaluation(s) Reevaluation #1: Dr. Shirley and Dr. Kennedy aware of the patient. Accepted to the ICU 05/20/24 14:15 Reevaluation #2: Dr. Coyne aware of patient 05/20/24 15:16 Procedures - [facility] [place] Protocol (Time Out) Nurse: Lorraine Carey Medical Decision Making - Medical Decision Making Was pt. sent in by a medical professional or institution (, PA, ELECTRICAL CAD TECHNICIAN, urgent care, hospital, or fci...) When possible be specific @ -Patient was sent in from the radiology department Did you speak to anyone other than the patient for history (EMS, parent, family, police, friend...)? What history was obtained from this source @ -No Did you review nursing and triage notes (Vinh spoke with the radiology nurse for historyr disagree)? Why? @ -I reviewed and agree with nursing and triage notes Were old charts reviewed (outside hosp., previous admission, EMS record, old EKG, old radiological studies, urgent care reports/EKG's, fci records)? Report findings @ -I reviewed the laboratory studies that were conducted today prior to the patient's procedure Differential Diagnosis (chest pain, altered mental status, abdominal pain women, abdominal pain men, vaginal bleeding, weakness, fever, dyspnea, syncope, headache, dizziness, GI bleed, back pain, seizure, CVA, palpatations, mental health, musculoskeletal)? @ -Urinary retention, UTI, CHAITANYA, hydronephrosis EKG interpreted by me (3pts min.). @ -Yes and demonstrates wide complex rhythm with a rate of 60. CT interval 241. QRS 181. QTc of 462. No acute ST segment elevations or depressions X-rays interpreted by me (1pt min.). @ -Yes which demonstrates no acute process CT interpreted by me (1pt min.). @ -None done U/S interpreted by me (1pt. min.). @ -Yes which demonstrates no hydronephrosis What testing was considered but not performed or refused? (CT, X-rays, U/S, labs)? Why? @ -None What meds were considered but not given or refused? Why? @ -None Did you discuss the management of the patient with other professionals (professionals i.e. Dr., PA, ELECTRICAL CAD TECHNICIAN, lab, RT, psych nurse, social security benefits interviewer, porcelain finisher, teacher, administrative hearing officer, catalytic case operator)? Give summary @ -I spoke with Dr. Shirley for admission, Dr. Kennedy from ICU, Dr. Coyne from nephrology, Dr. Merida from vascular and Dr. Maria from vascular Was smoking cessation discussed for >3mins.? @ -No Was critical care preformed (if so, how long)? @ -Yes, 35 minutes for management of hyperkalemia Were there social determinants of health that impacted care today? How? (Homelessness, low income, unemployed, alcoholism, drug addiction, transpor tation, low edu. Level, literacy, decrease access to med. care, [facility], rehab)? @ -No Was there de-escalation of care discussed even if they declined (Discuss DNR or withdrawal of care, Hospice)? DNR status @ -Yes and patient would like to be no to compressions or ventilator but yes to cardioversion What co-morbidities impacted this encounter? (DM, HTN, Smoking, COPD, CAD, Cancer, CVA, ARF, Chemo, Hep., AIDS, mental health diagnosis, sleep apnea, morbid obesity)? @ -Obesity, liver disease, chronic kidney disease Was patient admitted / discharged? Hospital course, mention meds given and route, prescriptions, significant lab abnormalities, going to OR and other pertinent info. @ -Upon arrival patient was originally seen in hallway 22. Thorough history and physical exam was performed. I am given report that the patient has abnormal creatinine levels. Twelve-lead EKG was performed and laboratory studies are conducted. Patient has significantly elevated potassium with EKG changes. She is placed into room 18. Placed on continuous pulse ox and cardiac monitoring. She was given 15 mg of albuterol, 10 units of insulin, 2 A of dextrose, 10 g of Lokelma and 1 g of calcium chloride. Patient does have improvement in her EKG visible on the bedside monitor and I do order a second twelve-lead EKG. Chest x-ray was performed. Ultrasound was performed. Merida was placed with only 35 cc of urine. I did call and speak with Dr. Shirley for the admission, Dr. Kennedy to place the patient in the ICU, Dr. Coyne who requests 3 A of bicarb, a bicarb drip and consultation for emergent dialysis catheter. I did call and speak with Dr. Merida. She does request that I call Dr. Maria. He does call the Industrial Maintenance Mechanic to have the catheter placed. Patient was agreeable to this treatment. She will be taken to the Industrial Maintenance Mechanic in stable condition Undiagnosed new problem with uncertain prognosis? @ -No Drug Therapy requiring intensive monitoring for toxicity (Heparin, Nitro, Insulin, Cardizem)? @ -No Were any procedures done? @ -No Diagnosis/symptom? @ -Acute hyperkalemia, acute kidney injury Acute, or Chronic, or Acute on Chronic? @ -Acute Uncomplicated (without systemic symptoms) or Complicated (systemic symptoms)? @ -Complicated Side effects of treatment? @ -No Exacerbation, Progression, or Severe Exacerbation? @ -Yes, hypoglycemia Poses a threat to life or bodily function? How? (Chest pain, USA, OK, pneumonia, PE, COPD, DKA, ARF, appy, cholecystitis, CVA, Diverticulitis, Homicidal, Suicidal, threat to staff... and all critical care pts) @ -Yes as patient does have significantly elevated potassium levels with EKG changes - Lab Data Result diagrams: 03/02/25 03:30 05/23/24 03:30 Lab Results 05/20/24 05/20/24 05/20/24 Range/Units 11:39 11:42 11:42 WBC 5.6 (3.8-10.6) k/uL RBC 2.98 L (3.80-5.40) m/uL Hgb 8.2 L D (11.4-16.0) gm/dL Hct 28.2 L (34.0-46.0) % MCV 94.6 (80.0-100.0) fL MCH 27.6 (25.0-35.0) pg MCHC 29.2 L (31.0-37.0) g/dL RDW 15.6 H (11.5-15.5) % Plt Count 255 (150-450) k/uL MPV 8.0 Neutrophils % 68 % Lymphocytes % 17 % Monocytes % 5 % Eosinophils % 9 % Basophils % 0 % Neutrophils # 3.8 (1.3-7.7) k/uL Lymphocytes # 0.9 L (1.0-4.8) k/uL Monocytes # 0.3 (0-1.0) k/uL Eosinophils # 0.5 (0-0.7) k/uL Basophils # 0.0 (0-0.2) k/uL Hypochromasia Moderate Sodium 134 L (137-145) mmol/L Potassium 8.6 H* (3.5-5.1) mmol/L Chloride 109 H (98-107) mmol/L Carbon Dioxide 13 L (22-30) mmol/L Anion Gap 12 mmol/L BUN 116 H* (7-17) mg/dL Creatinine 7.20 H* (0.52-1.04) mg/dL Est GFR (CKD-EPI)AfAm 6 (>60 ml/min/1.73 sqM) Est GFR (CKD-EPI)NonAf 5 (>60 ml/min/1.73 sqM) Glucose 79 (74-99) mg/dL Plasma Lactic Acid Jaspreet 0.9 (0.7-2.0) mmol/L Calcium 8.5 (8.4-10.2) mg/dL Phosphorus 6.3 H (2.5-4.5) mg/dL Magnesium 2.6 H (1.6-2.3) mg/dL Total Bilirubin 0.7 (0.2-1.3) mg/dL AST 34 (14-36) U/L ALT 20 (4-34) U/L Alkaline Phosphatase 73 (38-126) U/L Total Protein 6.3 (6.3-8.2) g/dL Albumin 2.8 L (3.5-5.0) g/dL Urine Color Urine Appearance (Clear) Urine pH (5.0-8.0) Ur Specific [place] (1.001-1.035) Urine Protein (Negative) Urine Glucose (UA) (Negative) Urine Ketones (Negative) Urine Blood (Negative) Urine Nitrite (Negative) Urine Bilirubin (Negative) Urine Urobilinogen (<2.0) mg/dL Ur Leukocyte Esterase (Negative) Urine RBC (0-5) /hpf Urine WBC (0-5) /hpf Ur Squamous Epith Cells (0-4) /hpf Urine Bacteria (None) /hpf Hyaline Casts (0-2) /lpf Urine Mucus (None) /hpf 05/20/24 05/20/24 Range/Units 12:29 14:30 WBC (3.8-10.6) k/uL RBC (3.80-5.40) m/uL Hgb (11.4-16.0) gm/dL Hct (34.0-46.0) % MCV (80.0-100.0) fL MCH (25.0-35.0) pg MCHC (31.0-37.0) g/dL RDW (11.5-15.5) % Plt Count (150-450) k/uL MPV Neutrophils % % Lymphocytes % % Monocytes % % Eosinophils % % Basophils % % Neutrophils # (1.3-7.7) k/uL Lymphocytes # (1.0-4.8) k/uL Monocytes # (0-1.0) k/uL Eosinophils # (0-0.7) k/uL Basophils # (0-0.2) k/uL Hypochromasia Sodium 134 L (137-145) mmol/L Potassium 7.9 H* (3.5-5.1) mmol/L Chloride 111 H (98-107) mmol/L Carbon Dioxide 13 L (22-30) mmol/L Anion Gap 10 mmol/L BUN 114 H* (7-17) mg/dL Creatinine 7.03 H* (0.52-1.04) mg/dL Est GFR (CKD-EPI)AfAm 6 (>60 ml/min/1.73 sqM) Est GFR (CKD-EPI)NonAf 5 (>60 ml/min/1.73 sqM) Glucose 75 (74-99) mg/dL Plasma Lactic Acid Jaspreet (0.7-2.0) mmol/L Calcium 8.4 (8.4-10.2) mg/dL Phosphorus (2.5-4.5) mg/dL Magnesium (1.6-2.3) mg/dL Total Bilirubin 0.4 (0.2-1.3) mg/dL AST 31 (14-36) U/L ALT 17 (4-34) U/L Alkaline Phosphatase 80 (38-126) U/L Total Protein 5.7 L (6.3-8.2) g/dL Albumin 2.6 L (3.5-5.0) g/dL Urine Color Colorless Urine Appearance Cloudy H (Clear) Urine pH 5.0 (5.0-8.0) Ur Specific [place] 1.011 (1.001-1.035) Urine Protein Trace H (Negative) Urine Glucose (UA) Negative (Negative) Urine Ketones Negative (Negative) Urine Blood Trace H (Negative) Urine Nitrite Negative (Negative) Urine Bilirubin Negative (Negative) Urine Urobilinogen <2.0 (<2.0) mg/dL Ur Leukocyte Esterase Large H (Negative) Urine RBC 15 H (0-5) /hpf Urine WBC 19 H (0-5) /hpf Ur Squamous Epith Cells 9 H (0-4) /hpf Urine Bacteria Rare H (None) /hpf Hyaline Casts 16 H (0-2) /lpf Urine Mucus Rare H (None) /hpf Disposition Clinical Impression: CHAITANYA (acute kidney injury), CKD (chronic kidney disease), Hyperkalemia Disposition: ADMITTED IP TO THIS [facility] Condition: Serious Is patient prescribed a controlled substance at d/c from ED?: No Time of Disposition: 14:24 Decision to Admit Reason: Admit from EC Decision Date: 05/20/24 Decision Time: 14:24
[2024-05-20 13:11] LABS: Potassium 7.9 mmol/L (3.5-5.1)
[2024-05-20] MEDS: ALBUTEROL NEBULIZED 2.5 MG/3 ML INHALATION STA (13:23)
[2024-05-20] MEDS: DEXTROSE 50% SYRINGE 50 ML IVP STA ×3 (13:37→18:42)
[2024-05-20] MEDS: INSULIN REGULAR 100 UNIT/ML VIAL (IV) IV ONE ×2 (13:38→18:40)
[2024-05-20] MEDS: CALCIUM CHLORIDE 100 MG/ML 10 ML SYRINGE IVP STA (13:40)
[2024-05-20] MEDS: SODIUM ZIRCONIUM CYCLOSILICATE 10 GM PACKET PO ONE ×2 (13:44→22:08)
[2024-05-20] MEDS ORDERED: NALOXONE 0.4 MG/ML 1 ML VIAL IV PRN (14:26)
[2024-05-20 14:56] LABS: Appearance,Urine Cloudy (Clear); Bacteria,Urine Rare /hpf; Bilirubin,Urine Negative (Negative); Blood,Urine Trace (Negative); Color,Urine Colorless; Glucose,Urine (UA) Negative (Negative); Hyaline Casts,Urine 16 /lpf (0-2); Ketones,Urine Negative (Negative); Leukocyte Esterase,Urine Large (Negative); Mucus,Urine Rare /hpf; Nitrite,Urine Negative (Negative); Protein,Urine Trace (Negative); RBC,Urine 15 /hpf (0-5); Specific Gravity,Urine 1.011 (1.001-1.035); Squamous Epithelial Cell,Urine 9 /hpf (0-4); Urobilinogen,Urine <2.0 mg/dL (<2.0); WBC,Urine 19 /hpf (0-5)
--- NOTE | 2024-05-20 15:00 | US ---
EXAMINATION TYPE: US renals and bladder DATE OF EXAM: 05/20/2024 COMPARISON: CT abdomen and pelvis January 30, 2024 CLINICAL INDICATION: Female, 78 years old with history of kidney failure; renal failure. Limited due to ascites. TECHNIQUE: Grayscale imaging of the bilateral kidneys and urinary bladder: FINDINGS: EXAM MEASUREMENTS: Right Kidney: 9.5 x 4.0 x 4.0 cm Left Kidney: 9.6 x 4.4 x 4.7 cm Right Kidney: No hydronephrosis or masses seen Left Kidney: No hydronephrosis or masses seen Bladder: Not full unable to visualize. Suboptimal study. Increased cortical echogenicity bilaterally. No hydronephrosis is seen. No concerni ng masses on images saved. Bladder is suboptimally evaluated with minimal urine. IMPRESSION: Suboptimal study without hydronephrosis seen bilaterally. [facility], , 05/20/2024 2:58 PM
--- NOTE | 2024-05-20 15:23 | XR ---
EXAMINATION TYPE: XR chest 2V DATE OF EXAM: 05/20/2024 3:16 PM COMPARISON: Chest x-ray April 06, 2024 CLINICAL INDICATION: Female, 78 years old with history of Cough/pain, TECHNIQUE: Frontal and lateral views of the chest are obtained. FINDINGS: Low lung volumes and cardiomegaly is redemonstrated. There is no suspicious focal air space opacity, pleural effusion, or pneumothorax Seen. The cardiac silhouette size is within normal limit s. The osseous structures are intact. IMPRESSION: Cardiomegaly and low lung volumes without acute pulmonary infiltrate. [facility], , 05/20/2024 3:20 PM
[2024-05-20] MEDS: SODIUM CHLORIDE 0.9% 1,000 ML IV SCH (15:54)
[2024-05-20] MEDS: SODIUM BICARB 8.4% 50 ML SYR (1 MEQ/ML) IV STA ×4 (15:58→18:44)
[2024-05-20 16:08] LABS: Glucose,Whole Blood 129 mg/dL (70-110)
[2024-05-20] MEDS: DEXTROSE 5% IN WATER 1,000 ML with SODIUM BICARB (1 MEQ/ML) 150 ML IV SCH (16:14)
--- NOTE | 2024-05-20 16:36 | P.GSCN ---
History of Present Illness History of present illness: 78-year-old white female patient came to the emergency room with potassium of 8.6 patient has history of chronic liver disease and patient is having abdominal paracentesis they could not do it because of high potassium patient also history of diabetes mellitus history of [place] history of DVT coronary artery disease Patient was seen in the emergency room neck is supple Chest crackles bilateral. Abdomen is protuberant with ascites has a history of DVT Plan is patient needs urgent dialysis catheter risk and complication bleeding infection has been discussed Past Medical History Past Medical History: Atrial Fibrillation, Coronary Artery Disease (CAD), CVA/TIA, Diabetes Mellitus, Deep Vein Thrombosis (DVT), Hypertension, Myocardial Infarction ([place]), Osteoarthritis (OA) Additional Past Medical History / Comment(s): hx tia, hx stroke behind left eye., lt eye macular , states hospitalized with Covid April 2019 with life support and stage 3 kidney failure., hx of fall with hip fx and surgery 01/13/22 went to [facility] for Rehab. DVT during ., varicose veins, states painful sore left heel., hx of t.b. as a child with scarring on lungs. 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 clausterphobia. 1961 blood transfusion(during child ) pt stated had palpitations after 2nd unit given Past Psychological History: Anxiety Smoking Status: Never smoker Past Alcohol Use History: None Reported Past Drug Use History: None Reported - Past Family History Mother Family Medical History: Cancer Additional Family Medical History / Comment(s): lung cancer Father Family Medical History: Coronary Artery Disease (CAD) Additional Family Medical History / Comment(s): heart disease, kidney disese Medications and Allergies Home Medications Medication Instructions Recorded Confirmed Type Apixaban [Eliquis] 5 mg PO BID 08/13/20 05/20/24 History Sacubitril/Valsartan [Entresto 24 1 tab PO BID 01/12/22 05/20/24 History mg-26 mg Tablet] Omeprazole [PriLOSEC] 20 mg PO DAILY 03/05/22 05/20/24 History Ipratropium [place] [Atrovent Hfa] 2 puff INHALATION RT-QID 09/09/22 05/20/24 History ALPRAZolam [Xanax] 0.25 mg PO TID PRN 05/30/23 05/20/24 History Ammonium Lactate Lotion 1 applic TOPICAL BID PRN 05/30/23 05/20/24 History [Lac-Hydrin 12% Lotion] Aspirin 81 mg PO DAILY 05/30/23 05/20/24 History Atorvastatin [Lipitor] 20 mg PO DAILY 05/30/23 05/20/24 History Cholecalciferol [Vitamin D3 (25 25 mcg PO DAILY 05/30/23 05/20/24 History Mcg = 1000 Iu)] Escitalopram [Lexapro] 10 mg PO DAILY 05/30/23 05/20/24 History Furosemide [Lasix] 80 mg PO DAILY 05/30/23 05/20/24 History Insulin Glargine,Hum.rec.anlog 16 - 18 units SQ HS 05/30/23 05/20/24 History [Toujeo Max Solostar] Insulin Glargine,Hum.rec.anlog 24 units SQ DAILY 05/30/23 05/20/24 History [Toujeo Max Solostar] Multivit-Min/FA/Lycopen/Lutein 1 tab PO DAILY 05/30/23 05/20/24 History [Centrum Silver Tablet] Potassium Chloride ER [K-Dur 20] 20 meq PO DAILY 05/30/23 05/20/24 History Albuterol Inhaler [Ventolin Hfa 2 puff INHALATION RT-QID PRN 01/09/24 05/20/24 History Inhaler] Ascorbic Acid [Vitamin C] 1,000 mg PO DAILY 01/09/24 05/20/24 History Vit C/E/Zn/Coppr/Lutein/Zeaxan 1 cap PO BID 01/09/24 05/20/24 History [Preservision Areds 2 Softgel] carvediloL [Coreg] 3.125 mg PO BID 01/09/24 05/20/24 History Magnesium Oxide [Mag-Ox] 400 mg PO DAILY #30 tab 01/16/24 05/20/24 Rx Nystatin 100,000Unit/gm Cream 1 applic TOPICAL BID #60 g 01/16/24 05/20/24 Rx [Mycostatin Cream] Sodium Bicarbonate Tab 650 mg PO BID #60 tab 01/16/24 05/20/24 Rx Torsemide [Demadex] 40 mg PO DAILY #30 tab 01/16/24 05/20/24 Rx Metoprolol Tartrate [Lopressor] 12.5 mg PO BID 01/30/24 05/20/24 History Menthol-Zinc Oxide Oint 1 applic TOPICAL DIRECTED 03/03/24 05/20/24 History [Calmoseptine Ointment] Periguard Ointment 1 applic TOPICAL DIRECTED 03/03/24 05/20/24 History Vits A and D/White Pet/Lanolin [A 1 applic TOPICAL DAILY PRN 03/03/24 05/20/24 History and D Ointment] traMADol HCL 50 mg PO TID PRN 05/20/24 05/20/24 History Allergies Allergy/AdvReac Type Severity Reaction Status Date / Time shellfish derived [Shellfish] Allergy Severe vomiting Verified 05/20/24 12:30 -very ill adhesive Allergy skin red Verified 05/20/24 12:30 and murguia, tears skin aluminum Allergy skin turns Verified 05/20/24 12:30 black, passes out Antihistamines - Allergy heart Verified 05/20/24 12:30 Ethylenediamine palpitations codeine Allergy migraines Verified 05/20/24 12:30 epinephrine Allergy heart Verified 05/20/24 12:30 palpitations fluticasone [From Flonase] Allergy Unknown Verified 05/20/24 12:30 hydrogen peroxide Allergy murguia and Verified 05/20/24 12:30 causes infection latex Allergy passes out Verified 05/20/24 12:30 nickel Allergy turns skin Verified 05/20/24 12:30 black and passes out procaine HCl [From Novocain] Allergy passed Verified 05/20/24 12:30 out- due to epinephrine in it. thiopental sodium Allergy needed cpr Verified 05/20/24 12:30 [From Pentothal] resusitation methocarbamol [From Robaxin] AdvReac Hallucinati Verified 05/20/24 12:30 ons zinc oxide AdvReac Rash/Hives Verified 05/20/24 12:30 surgical felicita Allergy Severe had to be Uncoded 05/20/24 12:30 removed 2 days post-op petroleum products AdvReac passes out Uncoded 05/20/24 12:30 or does not feel well. (diesel, oils) Surgical - Exam Vital Signs Temp Pulse Resp BP Pulse Ox 97.3 F L 61 18 121/57 99 05/20/24 10:28 05/20/24 10:28 05/20/24 10:28 05/20/24 10:28 05/20/24 10:28 Results - Labs 05/20/24 11:39 05/20/24 12:29 Abnormal Lab Results - Last 24 Hours (Table) 05/20/24 05/20/24 05/20/24 Range/Units 11:39 11:42 12:29 RBC 2.98 L (3.80-5.40) m/uL Hgb 8.2 L D (11.4-16.0) gm/dL Hct 28.2 L (34.0-46.0) % MCHC 29.2 L (31.0-37.0) g/dL RDW 15.6 H (11.5-15.5) % Lymphocytes # 0.9 L (1.0-4.8) k/uL Sodium 134 L 134 L (137-145) mmol/L Potassium 8.6 H* 7.9 H* (3.5-5.1) mmol/L Chloride 109 H 111 H (98-107) mmol/L Carbon Dioxide 13 L 13 L (22-30) mmol/L BUN 116 H* 114 H* (7-17) mg/dL Creatinine 7.20 H* 7.03 H* (0.52-1.04) mg/dL POC Glucose (mg/dL) (70-110) mg/dL Phosphorus 6.3 H (2.5-4.5) mg/dL Magnesium 2.6 H (1.6-2.3) mg/dL Total Protein 5.7 L (6.3-8.2) g/dL Albumin 2.8 L 2.6 L (3.5-5.0) g/dL Urine Appearance (Clear) Urine Protein (Negative) Urine Blood (Negative) Ur Leukocyte Esterase (Negative) Urine RBC (0-5) /hpf Urine WBC (0-5) /hpf Ur Squamous Epith Cells (0-4) /hpf Urine Bacteria (None) /hpf Hyaline Casts (0-2) /lpf Urine Mucus (None) /hpf 05/20/24 05/20/24 Range/Units 14:30 16:05 RBC (3.80-5.40) m/uL Hgb (11.4-16.0) gm/dL Hct (34.0-46.0) % MCHC (31.0-37.0) g/dL RDW (11.5-15.5) % Lymphocytes # (1.0-4.8) k/uL Sodium (137-145) mmol/L Potassium (3.5-5.1) mmol/L Chloride (98-107) mmol/L Carbon Dioxide (22-30) mmol/L BUN (7-17) mg/dL Creatinine (0.52-1.04) mg/dL POC Glucose (mg/dL) 129 H (70-110) mg/dL Phosphorus (2.5-4.5) mg/dL Magnesium (1.6-2.3) mg/dL Total Protein (6.3-8.2) g/dL Albumin (3.5-5.0) g/dL Urine Appearance Cloudy H (Clear) Urine Protein Trace H (Negative) Urine Blood Trace H (Negative) Ur Leukocyte Esterase Large H (Negative) Urine RBC 15 H (0-5) /hpf Urine WBC 19 H (0-5) /hpf Ur Squamous Epith Cells 9 H (0-4) /hpf Urine Bacteria Rare H (None) /hpf Hyaline Casts 16 H (0-2) /lpf Urine Mucus Rare H (None) /hpf Diabetes panel 05/20/24 05/20/24 Range/Units 11:42 12:29 Sodium 134 L 134 L (137-145) mmol/L Potassium 8.6 H* 7.9 H* (3.5-5.1) mmol/L Chloride 109 H 111 H (98-107) mmol/L Carbon Dioxide 13 L 13 L (22-30) mmol/L BUN 116 H* 114 H* (7-17) mg/dL Creatinine 7.20 H* 7.03 H* (0.52-1.04) mg/dL Glucose 79 75 (74-99) mg/dL Calcium 8.5 8.4 (8.4-10.2) mg/dL AST 34 31 (14-36) U/L ALT 20 17 (4-34) U/L Alkaline Phosphatase 73 80 (38-126) U/L Total Protein 6.3 5.7 L (6.3-8.2) g/dL Albumin 2.8 L 2.6 L (3.5-5.0) g/dL Calcium panel 05/20/24 05/20/24 Range/Units 11:42 12:29 Calcium 8.5 8.4 (8.4-10.2) mg/dL Phosphorus 6.3 H (2.5-4.5) mg/dL Albumin 2.8 L 2.6 L (3.5-5.0) g/dL Pituitary panel 05/20/24 05/20/24 Range/Units 11:42 12:29 Sodium 134 L 134 L (137-145) mmol/L Potassium 8.6 H* 7.9 H* (3.5-5.1) mmol/L Chloride 109 H 111 H (98-107) mmol/L Carbon Dioxide 13 L 13 L (22-30) mmol/L BUN 116 H* 114 H* (7-17) mg/dL Creatinine 7.20 H* 7.03 H* (0.52-1.04) mg/dL Glucose 79 75 (74-99) mg/dL Calcium 8.5 8.4 (8.4-10.2) mg/dL Adrenal panel 05/20/24 05/20/24 Range/Units 11:42 12:29 Sodium 134 L 134 L (137-145) mmol/L Potassium 8.6 H* 7.9 H* (3.5-5.1) mmol/L Chloride 109 H 111 H (98-107) mmol/L Carbon Dioxide 13 L 13 L (22-30) mmol/L BUN 116 H* 114 H* (7-17) mg/dL Creatinine 7.20 H* 7.03 H* (0.52-1.04) mg/dL Glucose 79 75 (74-99) mg/dL Calcium 8.5 8.4 (8.4-10.2) mg/dL Total Bilirubin 0.7 0.4 (0.2-1.3) mg/dL AST 34 31 (14-36) U/L ALT 20 17 (4-34) U/L Alkaline Phosphatase 73 80 (38-126) U/L Total Protein 6.3 5.7 L (6.3-8.2) g/dL Albumin 2.8 L 2.6 L (3.5-5.0) g/dL
[2024-05-20] MEDS ORDERED: VITS A & D-WHITE PET-LANOLIN TUBE TOPICAL PRN (16:38)
--- NOTE | 2024-05-20 16:41 | P.CNPUL ---
History of Present Illness Consult date: 05/20/24 Requesting physician: Luis Shirley Reason for consult: other (Critical care management) Chief complaint: Abdominal distention History of present illness: This is an 78-year-old female patient with a known history of diabetes mellitus, hypertension, congestive heart failure, hyperlipidemia, atrial fibrillation anticoagulated with Eliquis, anxiety/depression who was here today for an elective paracentesis that she has been requiring every 2 weeks for nonalcoholic liver failure. While in the department she developed dizziness and lightheadedness and had some lab work drawn. She was found to be severely hyperkalemic with a potassium of 8.6 and acute kidney injury with a BUN of 116 and a creatinine of 7.20. She was sent to the emergency room for further evaluation. Renal ultrasound revealed no evidence of hydronephrosis or masses bilaterally. EKG reveals sinus rhythm with a first-degree AV block and a left bundle branch block. Chest x-ray reveals cardiomegaly and low lung volumes w ithout acute pulmonary infiltrate. Was treated with dextrose, calcium, regular insulin and sodium bicarbonate. He also received Lokelma. Follow-up labs reveal a sodium of 134. Potassium 7.9. Bicarb 13. BUN 114. Creatinine 7.03. Anion gap of 10. AST 31. ALT 17. Urinalysis is cloudy with large leukoesterase and high WBCs and rare bacteria. We are consulted as the patient is to be admitted to the intensive care unit. She is seen in the emergency department. Currently sitting up on a stretcher. Awake and alert in no acute distress. Maintaining good O2 saturations in the high 90s on room air. She has been afebrile. Hemodynamically stable. She is on D5W with 3 A of bicarb at 75 mL/h. Review of Systems REVIEW OF SYSTEMS: CONSTITUTIONAL: Denies any recent significant weight loss or weight gain. EYES: Denies change in vision. EARS, NOSE, MOUTH, THROAT: Denies headaches, denies sore throat. CARDIOVASCULAR: Denies chest pain, palpitations or syncopal episodes. RESPIRATORY: Denies shortness of breath, cough, congestion or hemoptysis. GASTROINTESTINAL: Positive for abdominal fullness and distention. GENITOURINARY: Denies hematuria, denies infections. MUSKULOSKELETAL: Denies pain, denies swelling. INTEGUMENTARY: Denies rash, denies eczema. NEUROLOGICAL: Denies recent memory loss, no recent seizure activity. PSYCHIATRIC: Denies anxiety, denies depression. HEMATOLOGIC/LYMPHATIC: Denies anemia, denies enlarged lymph nodes. Past Medical History Past Medical History: Atrial Fibrillation, Coronary Artery Disease (CAD), CVA/TIA, Diabetes Mellitus, Deep Vein Thrombosis (DVT), Hypertension, Myocardial Infarction ([place]), Osteoarthritis (OA) Additional Past Medical History / Comment(s): hx tia, hx stroke behind left eye., lt eye macular , states hospitalized with Covid April 2019 with life support and stage 3 kidney failure., hx of fall with hip fx and surgery 01/13/22 went to [facility] for Rehab. DVT during ., varicose veins, states painful sore left heel., hx of t.b. as a child with scarring on lungs. Last Myocardial Infarction Date:: unknown date History of Any Multi-Drug Resistant Organisms: MRSA, VRE Date of last positivie culture/infection: 09/09/22 MRSA & VRE ([facility]-Scanned) MDRO Source:: Blood Culture Past Surgical History: Adenoidectomy, Hysterectomy, Orthopedic Surgery, Tonsillectomy, Tubal Ligation Additional Past Surgical History / Comment(s): pilonidal cyst twice as child, rt knee arthroscopy, krystyna cataracts, krystyna great toe sx, ORIF Left hip (01/13/22) Past Anesthesia/Blood Transfusion Reactions: Previous Problems w/ Anesthesia, Postoperative Nausea & Vomiting (PONV) Additional Past Anesthesia/Blood Transfusion Reaction / Comment(s): difficulty waking up after sx. clausterphobia. 1961 blood transfusion(during child ) pt stated had palpitations after 2nd unit given Past Psychological History: Anxiety Smoking Status: Never smoker Past Alcohol Use History: None Reported Past Drug Use History: None Reported - Past Family History Mother Family Medical History: Cancer Additional Family Medical History / Comment(s): lung cancer Father Family Medical History: Coronary Artery Disease (CAD) Additional Family Medical History / Comment(s): heart disease, kidney disese Medications and Allergies Home Medications Medication Instructions Recorded Confirmed Type Apixaban [Eliquis] 5 mg PO BID 08/13/20 05/20/24 History Sacubitril/Valsartan [Entresto 24 1 tab PO BID 01/12/22 05/20/24 History mg-26 mg Tablet] Omeprazole [PriLOSEC] 20 mg PO DAILY 03/05/22 05/20/24 History Ipratropium [place] [Atrovent Hfa] 2 puff INHALATION RT-QID 09/09/22 05/20/24 History ALPRAZolam [Xanax] 0.25 mg PO TID PRN 05/30/23 05/20/24 History Ammonium Lactate Lotion 1 applic TOPICAL BID PRN 05/30/23 05/20/24 History [Lac-Hydrin 12% Lotion] Aspirin 81 mg PO DAILY 05/30/23 05/20/24 History Atorvastatin [Lipitor] 20 mg PO DAILY 05/30/23 05/20/24 History Cholecalciferol [Vitamin D3 (25 25 mcg PO DAILY 05/30/23 05/20/24 History Mcg = 1000 Iu)] Escitalopram [Lexapro] 10 mg PO DAILY 05/30/23 05/20/24 History Furosemide [Lasix] 80 mg PO DAILY 05/30/23 05/20/24 History Insulin Glargine,Hum.rec.anlog 16 - 18 units SQ HS 05/30/23 05/20/24 History [Toujeo Max Solostar] Insulin Glargine,Hum.rec.anlog 24 units SQ DAILY 05/30/23 05/20/24 History [Toujeo Max Solostar] Multivit-Min/FA/Lycopen/Lutein 1 tab PO DAILY 05/30/23 05/20/24 History [Centrum Silver Tablet] Potassium Chloride ER [K-Dur 20] 20 meq PO DAILY 05/30/23 05/20/24 History Albuterol Inhaler [Ventolin Hfa 2 puff INHALATION RT-QID PRN 01/09/24 05/20/24 History Inhaler] Ascorbic Acid [Vitamin C] 1,000 mg PO DAILY 01/09/24 05/20/24 History Vit C/E/Zn/Coppr/Lutein/Zeaxan 1 cap PO BID 01/09/24 05/20/24 History [Preservision Areds 2 Softgel] carvediloL [Coreg] 3.125 mg PO BID 01/09/24 05/20/24 History Magnesium Oxide [Mag-Ox] 400 mg PO DAILY #30 tab 01/16/24 05/20/24 Rx Nystatin 100,000Unit/gm Cream 1 applic TOPICAL BID #60 g 01/16/24 05/20/24 Rx [Mycostatin Cream] Sodium Bicarbonate Tab 650 mg PO BID #60 tab 01/16/24 05/20/24 Rx Torsemide [Demadex] 40 mg PO DAILY #30 tab 01/16/24 05/20/24 Rx Metoprolol Tartrate [Lopressor] 12.5 mg PO BID 01/30/24 05/20/24 History Menthol-Zinc Oxide Oint 1 applic TOPICAL DIRECTED 03/03/24 05/20/24 History [Calmoseptine Ointment] Periguard Ointment 1 applic TOPICAL DIRECTED 03/03/24 05/20/24 History Vits A and D/White Pet/Lanolin [A 1 applic TOPICAL DAILY PRN 03/03/24 05/20/24 History and D Ointment] traMADol HCL 50 mg PO TID PRN 05/20/24 05/20/24 History Allergies Allergy/AdvReac Type Severity Reaction Status Date / Time shellfish derived [Shellfish] Allergy Severe vomiting Verified 05/20/24 12:30 -very ill adhesive Allergy skin red Verified 05/20/24 12:30 and murguia, tears skin aluminum Allergy skin turns Verified 05/20/24 12:30 black, passes out Antihistamines - Allergy heart Verified 05/20/24 12:30 Ethylenediamine palpitations codeine Allergy migraines Verified 05/20/24 12:30 epinephrine Allergy heart Verified 05/20/24 12:30 palpitations fluticasone [From Flonase] Allergy Unknown Verified 05/20/24 12:30 hydrogen peroxide Allergy murguia and Verified 05/20/24 12:30 causes infection latex Allergy passes out Verified 05/20/24 12:30 nickel Allergy turns skin Verified 05/20/24 12:30 black and passes out procaine HCl [From Novocain] Allergy passed Verified 05/20/24 12:30 out- due to epinephrine in it. thiopental sodium Allergy needed cpr Verified 05/20/24 12:30 [From Pentothal] resusitation methocarbamol [From Robaxin] AdvReac Hallucinati Verified 05/20/24 12:30 ons zinc oxide AdvReac Rash/Hives Verified 05/20/24 12:30 surgical felicita Allergy Severe had to be Uncoded 05/20/24 12:30 removed 2 days post-op petroleum products AdvReac passes out Uncoded 05/20/24 12:30 or does not feel well. (diesel, oils) Physical Exam Vitals: Vital Signs Temp Pulse Resp BP Pulse Ox 05/20/24 16:16 65 20 132/107 99 05/20/24 15:00 63 20 108/49 98 05/20/24 14:05 98.1 F 61 18 133/54 99 05/20/24 13:59 61 05/20/24 13:38 62 18 144/73 100 05/20/24 13:25 58 L 05/20/24 13:15 61 20 96/83 100 05/20/24 13:00 61 20 118/58 100 05/20/24 12:54 64 18 118/59 100 05/20/24 12:30 98.3 F 60 20 126/51 100 05/20/24 10:28 97.3 F L 61 18 121/57 99 Intake and Output 05/20/24 05/20/24 05/20/24 06:59 14:59 22:59 Other: Weight 83.007 kg GENERAL EXAM: Alert, pleasant 78-year-old female, on room air, comfortable in no apparent distress. HEAD: Normocephalic. EYES: Normal reaction of pupils, equal size. NOSE: Clear with pink turbinates. THROAT: No erythema or exudates. NECK: No masses, no JVD. CHEST: No chest wall deformity. LUNGS: Equal air entry with no crackles, wheeze, rhonchi or dullness. CVS: S1 and S2 normal with no audible murmur, regular rhythm. ABDOMEN: Abdominal distention with positive fluid wave. Normal bowel sounds, no guarding or rigidity. SPINE: No scoliosis or deformity SKIN: No rashes CENTRAL NERVOUS SYSTEM: No focal deficits, tone is normal in all 4 extremities. EXTREMITIES: There is no peripheral edema. No clubbing, no cyanosis. Peripheral pulses are intact. Results - Laboratory Findings CBC and BMP: 05/20/24 11:39 05/20/24 12:29 Abnormal lab findings: Abnormal Labs 05/20/24 05/20/24 05/20/24 11:39 11:42 12:29 RBC 2.98 L Hgb 8.2 L D Hct 28.2 L MCHC 29.2 L RDW 15.6 H Lymphocytes # 0.9 L Sodium 134 L 134 L Potassium 8.6 H* 7.9 H* Chloride 109 H 111 H Carbon Dioxide 13 L 13 L BUN 116 H* 114 H* Creatinine 7.20 H* 7.03 H* POC Glucose (mg/dL) Phosphorus 6.3 H Magnesium 2.6 H Total Protein 5.7 L Albumin 2.8 L 2.6 L Urine Appearance Urine Protein Urine Blood Ur Leukocyte Esterase Urine RBC Urine WBC Ur Squamous Epith Cells Urine Bacteria Hyaline Casts Urine Mucus 05/20/24 05/20/24 14:30 16:05 RBC Hgb Hct MCHC RDW Lymphocytes # Sodium Potassium Chloride Carbon Dioxide BUN Creatinine POC Glucose (mg/dL) 129 H Phosphorus Magnesium Total Protein Albumin Urine Appearance Cloudy H Urine Protein Trace H Urine Blood Trace H Ur Leukocyte Esterase Large H Urine RBC 15 H Urine WBC 19 H Ur Squamous Epith Cells 9 H Urine Bacteria Rare H Hyaline Casts 16 H Urine Mucus Rare H - Diagnostic Findings Chest x-ray: image reviewed Assessment and Plan Assessment: Acute kidney injury of unclear etiology possible underlying urinary tract infection. Renal ultrasound revealed no evidence of hydronephrosis or masses Hyperkalemia secondary to above Hyponatremia Metabolic acidosis Nonalcoholic liver failure requiring paracentesis nearly every 2 weeks. Was scheduled for one today that was not completed. Last one was 05/06/2024 with 4.5 L removed Anemia, current hemoglobin 8.2 History of atrial fibrillation anticoagulated with Eliquis, currently in sinus mechanism Hypertension Hyperlipidemia History of congestive heart failure History of anxiety/depression Diabetes mellitus Lifelong non-smoker Plan: The patient was seen and evaluated Chest x-ray, labs and medications reviewed Plan is to admit the patient to the intensive care unit Nephrology has been consulted Awaiting hemodialysis catheter placement Awaiting urgent hemodialysis Currently stable and on room air New bicarb drip at 75 mL/h Received Jevonma We will continue to follow and make further recommendations based on her clinical status I have personally seen and examined the patient, performed the documentation and the assessment and plan as written. Number of minutes spent on the visit: 20 Dictation was produced using [employer] dictation software. Please excuse any grammatical, word or spelling errors.
[2024-05-20] MEDS ORDERED: PERIGUARD TOPICAL SCH (16:45)
[2024-05-20 16:50] LABS: ALT 19 U/L (4-34); AST 28 U/L (14-36); African American GFR (CKD) 6 (>60 ml/min/1.73 sqM); Alkaline Phosphatase 100 U/L (38-126); Anion Gap 10 mmol/L; Calcium 9.6 mg/dL (8.4-10.2); Carbon Dioxide 15 mmol/L (22-30); Chloride 110 mmol/L (98-107); Glucose 96 mg/dL (74-99); Non-African American GFR(CKD) 5 (>60 ml/min/1.73 sqM); Sodium 135 mmol/L (137-145); Total Bilirubin 0.5 mg/dL (0.2-1.3); Total Protein 6.5 g/dL (6.3-8.2)
[2024-05-20 16:59] LABS: Blood Urea Nitrogen 113 mg/dL (7-17); Potassium 7.7 mmol/L (3.5-5.1)
[2024-05-20] MEDS: CALCIUM GLUCONATE IN NACL 1 GM in SALINE 1 100ML.BAG IVPB ONE (18:44)
[2024-05-20] MEDS: IV FLUID CONTINUATION 850 ML IV ONE (19:00)
[2024-05-20] MEDS: LIDOCAINE 1% INJ 10MG/ML (20 ML MDV) SQ ONE (19:06)
[2024-05-20] MEDS: HEPARIN SODIUM,PORCINE 10,000 UNIT in SODIUM CHLORIDE 0.9% 1,000 ML IRRIGATION ONE (19:08)
[2024-05-20] MEDS: IOPAMIDOL-370 100ML BTL INJ ONE (19:14)
[2024-05-20] MEDS: HEPARIN SODIUM 1,000 UN/ML (10ML VL) IV ONE (19:18)
--- NOTE | 2024-05-20 19:27 | P.PCN ---
Description of Procedure: Preop diagnosis is acute kidney injury with potassium of 3.6 history of DVT right leg Postop the same procedure #1 is inferior venacavogram Ultrasound-guided 30 cm dialysis catheter placed left femoral approach patient brought to the Staff Nuclear Medicine Technologist left groin was prepped and draped in Prestel manner 1% lidocaine for infiltrated left groin ultrasound-guided micropuncture introduced left femoral vein under 1% lidocaine for procedure out of the guidewire. This patient had history of DVT in the past we injected about 10 cc of treat dye. Vena cava was checked which was found to be patent iliac vessels both patent then we passed a regular guidewire we placed 30 cm dialysis catheter flushed with heparin saline hep-locked secured with 0 nylon dressing applied patient tarted the procedure well
[2024-05-20 19:52] LABS: Glucose,Whole Blood 148 mg/dL (70-110)
--- NOTE | 2024-05-20 20:35 | IR ---
EXAMINATION TYPE: IR cvc insert non tunneled DATE OF EXAM: 05/20/2024 CLINICAL HISTORY: Renal failure and hyperkalemia. TECHNIQUE: Fluoroscopy. COMPARISON: None. FINDINGS: Fluoroscopic guidance was provided during left femoral venous catheter insertion procedure performed by Dr. Maria. A total of 18 seconds of fluoroscopic time was utilized during the proced ure and 61 spot images was acquired. Images acquired show catheter access left groin for dialysis. TOTAL DAP= [id number] IMPRESSION: As Above. [facility], , 05/20/2024 8:33 PM
[2024-05-20] MEDS: IPRATROPIUM 0.5 MG/2.5 ML NEBU INHALATION SCH (20:36)
[2024-05-20] MEDS ORDERED: INSULIN GLARGINE (LANTUS) 100 UNIT/ML SYR SQ SCH (21:00)
[2024-05-20] MEDS ORDERED: SACUBITRIL/VALSARTAN 24 MG-26 MG TABLET PO SCH (21:00)
[2024-05-20] MEDS: carvediloL 3.125 MG TAB PO SCH (22:08)
[2024-05-20] MEDS: ALPRAZolam 0.25 MG TAB PO PRN (22:13)
[2024-05-20] MEDS: traMADol 50 MG TAB PO PRN (22:13)
[2024-05-20] MEDS: VIT A,C & E-LUTEIN-MINERALS 1 EACH TAB PO SCH (22:16)
[2024-05-20] MEDS: NYSTATIN 100,000UNIT/GM CREAM 30 GM TUBE TOPICAL SCH (22:16)
[2024-05-20] MEDS: APIXABAN 5 MG TAB PO SCH (22:17)
[2024-05-21 03:17] LABS: Basophils % (A) 0 %; Eosinophils # (A) 0.3 k/uL (0-0.7); Eosinophils % (A) 6 %; HCT 23.5 % (34.0-46.0); HGB 7.2 gm/dL (11.4-16.0); Hypochromasia Moderate; Lymphocytes # (A) 1.3 k/uL (1.0-4.8); Lymphocytes % (A) 22 %; MCH 28.6 pg (25.0-35.0); MCHC 30.8 g/dL (31.0-37.0); MCV 92.9 fL (80.0-100.0); Mean Platelet Volume 7.5; Monocytes # (A) 0.4 k/uL (0-1.0); Monocytes % (A) 7 %; Neutrophils # (A) 3.8 k/uL (1.3-7.7); Neutrophils % (A) 64 %; Platelet Count 225 k/uL (150-450); RBC 2.53 m/uL (3.80-5.40); RDW 15.6 % (11.5-15.5); WBC 5.9 k/uL (3.8-10.6)
[2024-05-21 03:27] LABS: African American GFR (CKD) 9 (>60 ml/min/1.73 sqM); Anion Gap 9 mmol/L; Blood Urea Nitrogen 78 mg/dL (7-17); Calcium 8.3 mg/dL (8.4-10.2); Carbon Dioxide 23 mmol/L (22-30); Chloride 101 mmol/L (98-107); Glucose 98 mg/dL (74-99); Non-African American GFR(CKD) 8 (>60 ml/min/1.73 sqM); Potassium 5.1 mmol/L (3.5-5.1); Sodium 133 mmol/L (137-145)
[2024-05-21] MEDS: NOREPINEPHRINE 4 MG in SODIUM CHLORIDE 0.9% 250 ML IV SCH (04:35)
[2024-05-21 06:32] LABS: Glucose,Whole Blood 126 mg/dL (70-110)
[2024-05-21] MEDS: PANTOPRAZOLE 40 MG TABLET PO SCH (07:08)
--- NOTE | 2024-05-21 08:41 | P.HPIM ---
History of Present Illness H&P Date: 05/21/24 Chief Complaint: acute renal failure with hyperkalemia. this is an 78-year-old white female with known history of diabetes with immobility. relying history of lower extremity cellulitis with atrial fibrillation. The patient is primarily bedridden. She states she started fe eling poorly. Workup did show significant hyperkalemia with acute severe renal failure. Dialysis has been started and the patient is slowly improving. The patient is easily arousable and understands where she is and who I am. The patient is now admitted to the ICU stabilizing. Blood pressure has been somewhat low and she is on pressors at this time. Review of Systems Constitutional: Denies chills, Denies fever Eyes: denies blurred vision, denies pain Ears, nose, mouth and throat: Denies headache, Denies sore throat Cardiovascular: Denies chest pain, Denies shortness of breath Past Medical History Past Medical History: Atrial Fibrillation, Coronary Artery Disease (CAD), CVA/TIA, Diabetes Mellitus, Deep Vein Thrombosis (DVT), Hypertension, Myocardial Infarction ([place]), Osteoarthritis (OA) Additional Past Medical History / Comment(s): hx tia, hx stroke behind left eye., lt eye macular , states hospitalized with Covid April 2019 with life support and stage 3 kidney failure., hx of fall with hip fx and surgery 01/13/22 went to [facility] for Rehab. DVT during ., varicose veins, states painful sore left heel., hx of t.b. as a child with scarring on lungs. Last Myocardial Infarction Date:: unknown date History of Any Multi-Drug Resistant Organisms: MRSA, VRE Date of last positivie culture/infection: 09/09/22 MRSA & VRE ([facility]-Scanned) MDRO Source:: Blood Culture Past Surgical History: Adenoidectomy, Hysterectomy, Orthopedic Surgery, Tonsillectomy, Tubal Ligation Additional Past Surgical History / Comment(s): pilonidal cyst twice as child, rt knee arthroscopy, krystyna cataracts, krystyna great toe sx, ORIF Left hip (01/13/22) Past Anesthesia/Blood Transfusion Reactions: Previous Problems w/ Anesthesia, Postoperative Nausea & Vomiting (PONV) Additional Past Anesthesia/Blood Transfusion Reaction / Comment(s): difficulty waking up after sx. clausterphobia. 1961 blood transfusion(during child ) pt stated had palpitations after 2nd unit given Smoking Status: Never smoker - Past Family History Mother Family Medical History: Cancer Additional Family Medical History / Comment(s): lung cancer Father Family Medical History: Coronary Artery Disease (CAD) Additional Family Medical History / Comment(s): heart disease, kidney disese Medications and Allergies Home Medications Medication Instructions Recorded Confirmed Type Apixaban [Eliquis] 5 mg PO BID 08/13/20 05/20/24 History Sacubitril/Valsartan [Entresto 24 1 tab PO BID 01/12/22 05/20/24 History mg-26 mg Tablet] Omeprazole [PriLOSEC] 20 mg PO DAILY 03/05/22 05/20/24 History Ipratropium [place] [Atrovent Hfa] 2 puff INHALATION RT-QID 09/09/22 05/20/24 History ALPRAZolam [Xanax] 0.25 mg PO TID PRN 05/30/23 05/20/24 History Ammonium Lactate Lotion 1 applic TOPICAL BID PRN 05/30/23 05/20/24 History [Lac-Hydrin 12% Lotion] Aspirin 81 mg PO DAILY 05/30/23 05/20/24 History Atorvastatin [Lipitor] 20 mg PO DAILY 05/30/23 05/20/24 History Cholecalciferol [Vitamin D3 (25 25 mcg PO DAILY 05/30/23 05/20/24 History Mcg = 1000 Iu)] Escitalopram [Lexapro] 10 mg PO DAILY 05/30/23 05/20/24 History Furosemide [Lasix] 80 mg PO DAILY 05/30/23 05/20/24 History Insulin Glargine,Hum.rec.anlog 16 - 18 units SQ HS 05/30/23 05/20/24 History [Toujeo Max Solostar] Insulin Glargine,Hum.rec.anlog 24 units SQ DAILY 05/30/23 05/20/24 History [Toujeo Max Solostar] Multivit-Min/FA/Lycopen/Lutein 1 tab PO DAILY 05/30/23 05/20/24 History [Centrum Silver Tablet] Potassium Chloride ER [K-Dur 20] 20 meq PO DAILY 05/30/23 05/20/24 History Albuterol Inhaler [Ventolin Hfa 2 puff INHALATION RT-QID PRN 01/09/24 05/20/24 History Inhaler] Ascorbic Acid [Vitamin C] 1,000 mg PO DAILY 01/09/24 05/20/24 History Vit C/E/Zn/Coppr/Lutein/Zeaxan 1 cap PO BID 01/09/24 05/20/24 History [Preservision Areds 2 Softgel] carvediloL [Coreg] 3.125 mg PO BID 01/09/24 05/20/24 History Magnesium Oxide [Mag-Ox] 400 mg PO DAILY #30 tab 01/16/24 05/20/24 Rx Nystatin 100,000Unit/gm Cream 1 applic TOPICAL BID #60 g 01/16/24 05/20/24 Rx [Mycostatin Cream] Sodium Bicarbonate Tab 650 mg PO BID #60 tab 01/16/24 05/20/24 Rx Torsemide [Demadex] 40 mg PO DAILY #30 tab 01/16/24 05/20/24 Rx Metoprolol Tartrate [Lopressor] 12.5 mg PO BID 01/30/24 05/20/24 History Menthol-Zinc Oxide Oint 1 applic TOPICAL DIRECTED 03/03/24 05/20/24 History [Calmoseptine Ointment] Periguard Ointment 1 applic TOPICAL DIRECTED 03/03/24 05/20/24 History Vits A and D/White Pet/Lanolin [A 1 applic TOPICAL DAILY PRN 03/03/24 05/20/24 History and D Ointment] traMADol HCL 50 mg PO TID PRN 05/20/24 05/20/24 History Allergies Allergy/AdvReac Type Severity Reaction Status Date / Time shellfish derived [Shellfish] Allergy Severe vomiting Verified 05/20/24 12:30 -very ill adhesive Allergy skin red Verified 05/20/24 12:30 and murguia, tears skin aluminum Allergy skin turns Verified 05/20/24 12:30 black, passes out Antihistamines - Allergy heart Verified 05/20/24 12:30 Ethylenediamine palpitations codeine Allergy migraines Verified 05/20/24 12:30 epinephrine Allergy heart Verified 05/20/24 12:30 palpitations fluticasone [From Flonase] Allergy Unknown Verified 05/20/24 12:30 hydrogen peroxide Allergy murguia and Verified 05/20/24 12:30 causes infection latex Allergy passes out Verified 05/20/24 12:30 nickel Allergy turns skin Verified 05/20/24 12:30 black and passes out procaine HCl [From Novocain] Allergy passed Verified 05/20/24 12:30 out- due to epinephrine in it. thiopental sodium Allergy needed cpr Verified 05/20/24 12:30 [From Pentothal] resusitation methocarbamol [From Robaxin] AdvReac Hallucinati Verified 05/20/24 12:30 ons zinc oxide AdvReac Rash/Hives Verified 05/20/24 12:30 surgical felicita Allergy Severe had to be Uncoded 05/20/24 12:30 removed 2 days post-op petroleum products AdvReac passes out Uncoded 05/20/24 12:30 or does not feel well. (diesel, oils) Physical Exam Vitals: Vital Signs Temp Pulse Pulse Resp BP BP Pulse Ox 05/21/24 07:00 59 L 13 94/45 96 05/21/24 06:30 65 17 116/50 97 05/21/24 06:00 61 13 106/55 96 05/21/24 05:30 62 20 90/41 96 05/21/24 05:00 63 14 108/49 98 05/21/24 04:30 66 20 90/40 99 05/21/24 04:00 67 66 12 83/43 98 05/21/24 03:30 66 15 86/40 97 05/21/24 03:00 65 16 87/45 98 05/21/24 02:30 67 10 L 94/43 97 05/21/24 02:00 71 20 90/45 96 05/21/24 01:30 70 15 87/42 97 05/21/24 01:00 71 16 80/50 98 05/21/24 00:31 98.3 F 85 16 108/77 05/21/24 00:30 79 16 94/53 100 05/21/24 00:06 88 11 L 97/51 100 05/21/24 00:00 80 66 22 108/52 100 05/20/24 23:30 98.4 F 86 11 L 84/50 99 05/20/24 23:00 73 13 99/47 100 05/20/24 22:30 73 20 97/55 98 05/20/24 22:00 73 11 L 97/51 100 05/20/24 21:30 64 12 97/53 100 05/20/24 21:00 63 12 124/65 100 05/20/24 20:30 64 13 123/58 100 05/20/24 20:00 98.3 F 67 66 10 L 95/68 100 05/20/24 19:47 73 30 H 05/20/24 18:51 98.1 F 05/20/24 18:00 98.1 F 76 18 117/82 98 05/20/24 17:00 66 18 138/57 97 05/20/24 16:16 65 20 132/107 99 05/20/24 15:00 63 20 108/49 98 05/20/24 14:05 98.1 F 61 18 133/54 99 05/20/24 13:59 61 05/20/24 13:38 62 18 144/73 100 05/20/24 13:25 58 L 05/20/24 13:15 61 20 96/83 100 05/20/24 13:00 61 20 118/58 100 05/20/24 12:54 64 18 118/59 100 05/20/24 12:30 98.3 F 60 20 126/51 100 05/20/24 10:28 97.3 F L 61 18 121/57 99 Intake and Output 05/20/24 05/21/24 05/21/24 22:59 06:59 14:59 Intake Total 225 1157.901 75 Output Total 95 1456 5 Balance 130 -298.099 70 Intake: Intake, IV Titration 225 607.901 75 Amount Dextrose 5% in Water 1, 225 600 75 000 ml @ 75 mls/hr IV . [id number] HARIKA with Sodium Bicarb (1 Meq/ml) 150 ml Rx#:[id number] Norepinephrine 4 mg In 7.901 Sodium Chloride 0.9% 250 ml @ 0.03 MCG/KG/MIN 12. 367 mls/hr IV .[id number] HARIKA Rx#:[id number] Hemodialysis 550 Output: Urine 95 20 5 Hemodialysis 993 Hemodialysis Net Amount 443 Other: Voiding Method Indwelling Catheter Indwelling Catheter Weight 108.2 kg - Constitutional General appearance: no acute distress - EENT Eyes: EOMI - Neck Neck: no lymphadenopathy - Respiratory Respiratory: bilateral: diminished - Cardiovascular Rhythm: irregularly irregular Heart sounds: normal: S1, S2 Abnormal Heart Sounds: no S3 Gallop - Gastrointestinal General gastrointestinal: soft, no tenderness - Integumentary Integumentary: cellulitis, no cyanotic - Neurologic Neurologic: CNII-XII intact - Musculoskeletal Musculoskeletal: no gait normal Results CBC & Chem 7: 05/21/24 02:40 05/21/24 02:40 Labs: Abnormal Lab Results - Last 24 Hours (Table) 05/20/24 05/20/24 05/20/24 Range/Units 11:39 11:42 12:29 RBC 2.98 L (3.80-5.40) m/uL Hgb 8.2 L D (11.4-16.0) gm/dL Hct 28.2 L (34.0-46.0) % MCHC 29.2 L (31.0-37.0) g/dL RDW 15.6 H (11.5-15.5) % Lymphocytes # 0.9 L (1.0-4.8) k/uL Sodium 134 L 134 L (137-145) mmol/L Potassium 8.6 H* 7.9 H* (3.5-5.1) mmol/L Chloride 109 H 111 H (98-107) mmol/L Carbon Dioxide 13 L 13 L (22-30) mmol/L BUN 116 H* 114 H* (7-17) mg/dL Creatinine 7.20 H* 7.03 H* (0.52-1.04) mg/dL POC Glucose (mg/dL) (70-110) mg/dL Calcium (8.4-10.2) mg/dL Phosphorus 6.3 H (2.5-4.5) mg/dL Magnesium 2.6 H (1.6-2.3) mg/dL Total Protein 5.7 L (6.3-8.2) g/dL Albumin 2.8 L 2.6 L (3.5-5.0) g/dL Urine Appearance (Clear) Urine Protein (Negative) Urine Blood (Negative) Ur Leukocyte Esterase (Negative) Urine RBC (0-5) /hpf Urine WBC (0-5) /hpf Ur Squamous Epith Cells (0-4) /hpf Urine Bacteria (None) /hpf Hyaline Casts (0-2) /lpf Urine Mucus (None) /hpf 05/20/24 05/20/24 05/20/24 Range/Units 14:30 16:05 16:33 RBC (3.80-5.40) m/uL Hgb (11.4-16.0) gm/dL Hct (34.0-46.0) % MCHC (31.0-37.0) g/dL RDW (11.5-15.5) % Lymphocytes # (1.0-4.8) k/uL Sodium 135 L (137-145) mmol/L Potassium 7.7 H* (3.5-5.1) mmol/L Chloride 110 H (98-107) mmol/L Carbon Dioxide 15 L (22-30) mmol/L BUN 113 H* (7-17) mg/dL Creatinine 7.13 H* (0.52-1.04) mg/dL POC Glucose (mg/dL) 129 H (70-110) mg/dL Calcium (8.4-10.2) mg/dL Phosphorus (2.5-4.5) mg/dL Magnesium (1.6-2.3) mg/dL Total Protein (6.3-8.2) g/dL Albumin 3.0 L (3.5-5.0) g/dL Urine Appearance Cloudy H (Clear) Urine Protein Trace H (Negative) Urine Blood Trace H (Negative) Ur Leukocyte Esterase Large H (Negative) Urine RBC 15 H (0-5) /hpf Urine WBC 19 H (0-5) /hpf Ur Squamous Epith Cells 9 H (0-4) /hpf Urine Bacteria Rare H (None) /hpf Hyaline Casts 16 H (0-2) /lpf Urine Mucus Rare H (None) /hpf 05/20/24 05/21/24 05/21/24 Range/Units 19:50 02:40 02:40 RBC 2.53 L (3.80-5.40) m/uL Hgb 7.2 L (11.4-16.0) gm/dL Hct 23.5 L (34.0-46.0) % MCHC 30.8 L (31.0-37.0) g/dL RDW 15.6 H (11.5-15.5) % Lymphocytes # (1.0-4.8) k/uL Sodium 133 L (137-145) mmol/L Potassium (3.5-5.1) mmol/L Chloride (98-107) mmol/L Carbon Dioxide (22-30) mmol/L BUN 78 H (7-17) mg/dL Creatinine 4.71 H (0.52-1.04) mg/dL POC Glucose (mg/dL) 148 H (70-110) mg/dL Calcium 8.3 L (8.4-10.2) mg/dL Phosphorus (2.5-4.5) mg/dL Magnesium (1.6-2.3) mg/dL Total Protein (6.3-8.2) g/dL Albumin (3.5-5.0) g/dL Urine Appearance (Clear) Urine Protein (Negative) Urine Blood (Negative) Ur Leukocyte Esterase (Negative) Urine RBC (0-5) /hpf Urine WBC (0-5) /hpf Ur Squamous Epith Cells (0-4) /hpf Urine Bacteria (None) /hpf Hyaline Casts (0-2) /lpf Urine Mucus (None) /hpf 05/21/24 Range/Units 06:30 RBC (3.80-5.40) m/uL Hgb (11.4-16.0) gm/dL Hct (34.0-46.0) % MCHC (31.0-37.0) g/dL RDW (11.5-15.5) % Lymphocytes # (1.0-4.8) k/uL Sodium (137-145) mmol/L Potassium (3.5-5.1) mmol/L Chloride (98-107) mmol/L Carbon Dioxide (22-30) mmol/L BUN (7-17) mg/dL Creatinine (0.52-1.04) mg/dL POC Glucose (mg/dL) 126 H (70-110) mg/dL Calcium (8.4-10.2) mg/dL Phosphorus (2.5-4.5) mg/dL Magnesium (1.6-2.3) mg/dL Total Protein (6.3-8.2) g/dL Albumin (3.5-5.0) g/dL Urine Appearance (Clear) Urine Protein (Negative) Urine Blood (Negative) Ur Leukocyte Esterase (Negative) Urine RBC (0-5) /hpf Urine WBC (0-5) /hpf Ur Squamous Epith Cells (0-4) /hpf Urine Bacteria (None) /hpf Hyaline Casts (0-2) /lpf Urine Mucus (None) /hpf Assessment and Plan (1) Acute kidney injury Current Visit: Yes Status: Acute Code(s): N17.9 - ACUTE KIDNEY FAILURE, UNSPECIFIED SNOMED Code(s): 83379775 (2) CKD (chronic kidney disease) Current Visit: Yes Status: Acute Code(s): N18.9 - CHRONIC KIDNEY DISEASE, UNSPECIFIED SNOMED Code(s): 360769258 (3) Hyperkalemia Current Visit: Yes Status: Acute Code(s): E87.5 - HYPERKALEMIA SNOMED Code(s): 19282831 (4) Ascites Current Visit: No Status: Acute Code(s): R18.8 - OTHER ASCITES SNOMED Code(s): 825046709 (5) Atrial fibrillation Current Visit: No Status: Acute Code(s): I48.91 - UNSPECIFIED ATRIAL FIBRILLATION SNOMED Code(s): 02677638 (6) Diabetes Current Visit: No Status: Acute Code(s): E11.9 - TYPE 2 DIABETES MELLITUS WITHOUT COMPLICATIONS SNOMED Code(s): 73254326 (7) Hypotension Current Visit: No Status: Acute Code(s): I95.9 - HYPOTENSION, UNSPECIFIED SNOMED Code(s): 00241286 Plan: continue supportive care. Watch vitals closely. check CBC and CMP in a.m. Appreciate multiple consultants input. [facility] will be covering for the weekend. Reconcile home medications as necessary.
[2024-05-21] MEDS ORDERED: TORSEMIDE 20 MG TAB PO SCH (09:00)
[2024-05-21] MEDS ORDERED: INSULIN GLARGINE (LANTUS) 100 UNIT/ML SYR SQ SCH (09:00)
[2024-05-21] MEDS ORDERED: POTASSIUM CHLORIDE ER 20 MEQ TAB.ER PO SCH (09:00)
[2024-05-21] MEDS ORDERED: MAGNESIUM OXIDE 400 MG TAB PO SCH (09:00)
--- NOTE | 2024-05-21 10:26 | P.NPCON ---
History of Present Illness - Reason for Consult acute renal failure, chronic renal failure - History of Present Illness Reason for consultation: Acute kidney injury on chronic kidney disease History of present illness: Patient is a 78-year-old female seen in renal consultation for acute kidney injury on chronic kidney disease. Patient has chronic kidney disease stage IIIb with baseline creatinine near 1.4 from February 2024. It is noted the patient is renal function was worsening with creatinine up to 2.0 April 08, 2024 and 3.85 dated May 06, 2024. Patient has history of liver cirrhosis and undergoes paracentesis every 2 weeks or so. Patient went for paracentesis yesterday and had routine blood work done and was sent directly to the emergency room due to abnormal labs. Patient's creatinine was 7.57 and potassium level was 8.6. This was medically treated with minimal improvement in hyperkalemia. Patient underwent emergent hemodialysis last night and is undergoing another treatment of dialysis today. She is on low-dose Levophed. Has Merida catheter. Oliguric. She denies use of NSAIDs. She was taking Entresto outpatient along with potassium supplementation. She was also on torsemide. She denies taking spironolactone. No vomiting or diarrhea. No chest pain or shortness of breath. No gross hematuria or dysuria. Vital signs are stable. On Levophed. General: No acute distress. HEENT: Head exam is unremarkable. LUNGS: No audible rhonchi or wheezes. HEART: Rate and Rhythm are regular. ABDOMEN: Nontender, distention noted. EXTREMITITES: 1+ edema. Past Medical History Past Medical History: Atrial Fibrillation, Coronary Artery Disease (CAD), CVA/TIA, Diabetes Mellitus, Deep Vein Thrombosis (DVT), Hypertension, Myocardial Infarction ([place]), Osteoarthritis (OA) Additional Past Medical History / Comment(s): hx tia, hx stroke behind left eye., lt eye macular , states hospitalized with Covid April 2019 with life support and stage 3 kidney failure., hx of fall with hip fx and surgery 01/13/[address] [facility] for Rehab. DVT during ., varicose veins, states painful sore left heel., hx of t.b. as a child with scarring on lungs. Last Myocardial Infarction Date:: unknown date History of Any Multi-Drug Resistant Organisms: MRSA, VRE Date of last positivie culture/infection: 09/09/22 MRSA & VRE ([facility]-Scanned) MDRO Source:: Blood Culture Past Surgical History: Adenoidectomy, Hysterectomy, Orthopedic Surgery, Tonsillectomy, Tubal Ligation Additional Past Surgical History / Comment(s): pilonidal cyst twice as child, rt knee arthroscopy, krystyna cataracts, krystyna great toe sx, ORIF Left hip (01/13/22) Past Anesthesia/Blood Transfusion Reactions: Previous Problems w/ Anesthesia, Postoperative Nausea & Vomiting (PONV) Additional Past Anesthesia/Blood Transfusion Reaction / Comment(s): difficulty waking up after sx. clausterphobia. 1961 blood transfusion(during child ) pt stated had palpitations after 2nd unit given Smoking Status: Never smoker - Past Family History Mother Family Medical History: Cancer Additional Family Medical History / Comment(s): lung cancer Father Family Medical History: Coronary Artery Disease (CAD) Additional Family Medical History / Comment(s): heart disease, kidney disese Medications and Allergies Home Medications Medication Instructions Recorded Confirmed Type Apixaban [Eliquis] 5 mg PO BID 08/13/20 05/20/24 History Sacubitril/Valsartan [Entresto 24 1 tab PO BID 01/12/22 05/20/24 History mg-26 mg Tablet] Omeprazole [PriLOSEC] 20 mg PO DAILY 03/05/22 05/20/24 History Ipratropium [place] [Atrovent Hfa] 2 puff INHALATION RT-QID 09/09/22 05/20/24 History ALPRAZolam [Xanax] 0.25 mg PO TID PRN 05/30/23 05/20/24 History Ammonium Lactate Lotion 1 applic TOPICAL BID PRN 05/30/23 05/20/24 History [Lac-Hydrin 12% Lotion] Aspirin 81 mg PO DAILY 05/30/23 05/20/24 History Atorvastatin [Lipitor] 20 mg PO DAILY 05/30/23 05/20/24 History Cholecalciferol [Vitamin D3 (25 25 mcg PO DAILY 05/30/23 05/20/24 History Mcg = 1000 Iu)] Escitalopram [Lexapro] 10 mg PO DAILY 05/30/23 05/20/24 History Furosemide [Lasix] 80 mg PO DAILY 05/30/23 05/20/24 History Insulin Glargine,Hum.rec.anlog 16 - 18 units SQ HS 05/30/23 05/20/24 History [Toujeo Max Solostar] Insulin Glargine,Hum.rec.anlog 24 units SQ DAILY 05/30/23 05/20/24 History [Toujeo Max Solostar] Multivit-Min/FA/Lycopen/Lutein 1 tab PO DAILY 05/30/23 05/20/24 History [Centrum Silver Tablet] Potassium Chloride ER [K-Dur 20] 20 meq PO DAILY 05/30/23 05/20/24 History Albuterol Inhaler [Ventolin Hfa 2 puff INHALATION RT-QID PRN 01/09/24 05/20/24 History Inhaler] Ascorbic Acid [Vitamin C] 1,000 mg PO DAILY 01/09/24 05/20/24 History Vit C/E/Zn/Coppr/Lutein/Zeaxan 1 cap PO BID 01/09/24 05/20/24 History [Preservision Areds 2 Softgel] carvediloL [Coreg] 3.125 mg PO BID 01/09/24 05/20/24 History Magnesium Oxide [Mag-Ox] 400 mg PO DAILY #30 tab 01/16/24 05/20/24 Rx Nystatin 100,000Unit/gm Cream 1 applic TOPICAL BID #60 g 01/16/24 05/20/24 Rx [Mycostatin Cream] Sodium Bicarbonate Tab 650 mg PO BID #60 tab 01/16/24 05/20/24 Rx Torsemide [Demadex] 40 mg PO DAILY #30 tab 01/16/24 05/20/24 Rx Metoprolol Tartrate [Lopressor] 12.5 mg PO BID 01/30/24 05/20/24 History Menthol-Zinc Oxide Oint 1 applic TOPICAL DIRECTED 03/03/24 05/20/24 History [Calmoseptine Ointment] Periguard Ointment 1 applic TOPICAL DIRECTED 03/03/24 05/20/24 History Vits A and D/White Pet/Lanolin [A 1 applic TOPICAL DAILY PRN 03/03/24 05/20/24 History and D Ointment] traMADol HCL 50 mg PO TID PRN 05/20/24 05/20/24 History Allergies Allergy/AdvReac Type Severity Reaction Status Date / Time shellfish derived [Shellfish] Allergy Severe vomiting Verified 05/20/24 12:30 -very ill adhesive Allergy skin red Verified 05/20/24 12:30 and murguia, tears skin aluminum Allergy skin turns Verified 05/20/24 12:30 black, passes out Antihistamines - Allergy heart Verified 05/20/24 12:30 Ethylenediamine palpitations codeine Allergy migraines Verified 05/20/24 12:30 epinephrine Allergy heart Verified 05/20/24 12:30 palpitations fluticasone [From Flonase] Allergy Unknown Verified 05/20/24 12:30 hydrogen peroxide Allergy murguia and Verified 05/20/24 12:30 causes infection latex Allergy passes out Verified 05/20/24 12:30 nickel Allergy turns skin Verified 05/20/24 12:30 black and passes out procaine HCl [From Novocain] Allergy passed Verified 05/20/24 12:30 out- due to epinephrine in it. thiopental sodium Allergy needed cpr Verified 05/20/24 12:30 [From Pentothal] resusitation methocarbamol [From Robaxin] AdvReac Hallucinati Verified 05/20/24 12:30 ons zinc oxide AdvReac Rash/Hives Verified 05/20/24 12:30 surgical felicita Allergy Severe had to be Uncoded 05/20/24 12:30 removed 2 days post-op petroleum products AdvReac passes out Uncoded 05/20/24 12:30 or does not feel well. (diesel, oils) Physical Exam Vitals: Vital Signs Temp Pulse Pulse Resp BP BP Pulse Ox 05/21/24 10:00 66 11 L 109/60 99 05/21/24 09:30 69 11 L 114/78 98 05/21/24 09:00 69 17 114/78 98 05/21/24 08:30 70 13 92/42 98 05/21/24 08:00 97.7 F 57 L 13 110/52 98 05/21/24 07:30 60 14 92/43 96 05/21/24 07:00 59 L 13 94/45 96 05/21/24 06:30 65 17 116/50 97 05/21/24 06:00 61 13 106/55 96 05/21/24 05:30 62 20 90/41 96 05/21/24 05:00 63 14 108/49 98 05/21/24 04:30 66 20 90/40 99 05/21/24 04:00 67 66 12 83/43 98 05/21/24 03:30 66 15 86/40 97 05/21/24 03:00 65 16 87/45 98 05/21/24 02:30 67 10 L 94/43 97 05/21/24 02:00 71 20 90/45 96 05/21/24 01:30 70 15 87/42 97 05/21/24 01:00 71 16 80/50 98 05/21/24 00:31 98.3 F 85 16 108/77 05/21/24 00:30 79 16 94/53 100 05/21/24 00:06 88 11 L 97/51 100 05/21/24 00:00 80 66 22 108/52 100 05/20/24 23:30 98.4 F 86 11 L 84/50 99 05/20/24 23:00 73 13 99/47 100 05/20/24 22:30 73 20 97/55 98 05/20/24 22:00 73 11 L 97/51 100 05/20/24 21:30 64 12 97/53 100 05/20/24 21:00 63 12 124/65 100 05/20/24 20:30 64 13 123/58 100 05/20/24 20:00 98.3 F 67 66 10 L 95/68 100 05/20/24 19:47 73 30 H 05/20/24 18:51 98.1 F 05/20/24 18:00 98.1 F 76 18 117/82 98 05/20/24 17:00 66 18 138/57 97 05/20/24 16:16 65 20 132/107 99 05/20/24 15:00 63 20 108/49 98 05/20/24 14:05 98.1 F 61 18 133/54 99 05/20/24 13:59 61 05/20/24 13:38 62 18 144/73 100 05/20/24 13:25 58 L 05/20/24 13:15 61 20 96/83 100 05/20/24 13:00 61 20 118/58 100 05/20/24 12:54 64 18 118/59 100 05/20/24 12:30 98.3 F 60 20 126/51 100 05/20/24 10:28 97.3 F L 61 18 121/57 99 Intake and Output 05/20/24 05/21/24 05/21/24 22:59 06:59 14:59 Intake Total 225 1157.901 364.475 Output Total 95 1456 20 Balance 130 -298.099 344.475 Intake: IV 10 0.9ns kvo 10 Intake, IV Titration 225 607.901 254.475 Amount Dextrose 5% in Water 1, 225 600 225 000 ml @ 75 mls/hr IV . [id number] HARIKA with Sodium Bicarb (1 Meq/ml) 150 ml Rx#:[id number] Norepinephrine 4 mg In 7.901 29.475 Sodium Chloride 0.9% 250 ml @ 0.03 MCG/KG/MIN 12. 367 mls/hr IV .[id number] HARIKA Rx#:[id number] Oral 100 Hemodialysis 550 Output: Urine 95 20 20 Hemodialysis 993 Hemodialysis Net Amount 443 Other: Voiding Method Indwelling Catheter Indwelling Catheter Indwelling Catheter Weight 108.2 kg Results - Lab Results Most recent lab results Calcium 8.3 mg/dL (8.4-10.2) L 05/21/24 02:40 Phosphorus 6.3 mg/dL (2.5-4.5) H 05/20/24 11:42 Magnesium 2.6 mg/dL (1.6-2.3) H 05/20/24 11:42 05/21/24 02:40 05/21/24 02:40 Assessment and Plan Plan: Assessment: 1. Acute kidney injury secondary to ATN secondary to hepatorenal syndrome. Creatinine over 7 on admission. No hydronephrosis noted on imaging. 2. Chronic kidney disease stage IIIb with baseline creatinine near 1.4 from January 2024. 3. Hyperkalemia secondary to acute kidney injury, metabolic acidosis, Entresto and potassium supplementation. 4. Metabolic acidosis secondary to acute kidney injury. 5. Liver cirrhosis. 6. Diabetes mellitus. 7. Anemia of chronic kidney disease. 8. Volume overload. Last paracentesis was May 06, 2024 with 4.5 L drained. Plan: Discontinue bicarb drip. Hemodialysis today and again tomorrow. Lasix 80 mg IV once this evening. May need another paracentesis this admission. Will give albumin preprocedure. Check iron studies. Continue to monitor renal function and urine output. Add midodrine. Wean Levophed. Thank you for the consultation. I will continue to follow the patient with you during her hospital stay.
[2024-05-21 11:43] LABS: Glucose,Whole Blood 110 mg/dL (70-110)
[2024-05-21] MEDS: ALBUMIN HUMAN 25% 50 ML in EMPTY BAG 1 BAG IVPB ONE (12:24)
[2024-05-21] MEDS: ASPIRIN 81 MG PO SCH (13:57)
[2024-05-21] MEDS: CHOLECALCIFEROL 25 MCG (1000 IU) TABLET PO SCH (13:57)
[2024-05-21] MEDS: ATORVASTATIN 20 MG TAB PO SCH (13:58)
[2024-05-21] MEDS: MIDODRINE 5 MG TAB PO SCH (13:58)
[2024-05-21] MEDS: ASCORBIC ACID 500 MG TAB PO SCH (13:58)
[2024-05-21] MEDS: ESCITALOPRAM 10 MG TAB PO SCH (13:58)
[2024-05-21] MEDS: APIXABAN 2.5 MG TABLET PO SCH (13:58)
[2024-05-21] MEDS: MULTIVITAMINS, THERA 1 EACH TAB PO SCH (13:58)
--- NOTE | 2024-05-21 14:51 | P.PN ---
Subjective Progress Note Date: 05/21/24 Principal diagnosis: Acute kidney injury secondary to acute tubular necrosis, possible hepatorenal syndrome with hyperkalemia and severe metabolic acidosis This is an 78-year-old female patient with a known history of diabetes mellitus, hypertension, congestive heart failure, hyperlipidemia, atrial fibrillation anticoagulated with Eliquis, anxiety/depression who was here today for an elective paracentesis that she has been requiring every 2 weeks for nonalcoholic liver failure. While in the department she developed dizziness and lightheadedness and had some lab work drawn. She was found to be severely hyperkalemic with a potassium of 8.6 and acute kidney injury with a BUN of 116 and a creatinine of 7.20. She was sent to the emergency room for further evaluation. Renal ultrasound revealed no evidence of hydronephrosis or masses bilaterally. EKG reveals sinus rhythm with a first-degree AV block and a left bundle branch block. Chest x-ray reveals cardiomegaly and low lung volumes without acute pulmonary infiltrate. Was treated with dextrose, calcium, regular insulin and sodium bicarbonate. He also received Lokelma. Follow-up labs reveal a sodium of 134. Potassium 7.9. Bicarb 13. BUN 114. Creatinine 7.03. Anion gap of 10. AST 31. ALT 17. Urinalysis is cloudy with large leukoesterase and high WBCs and rare bacteria. We are consulted as the patient is to be admitted to the intensive care unit. She is seen in the emergency department. Currently sitting up on a stretcher. Awake and alert in no acute distress. Maintaining good O2 saturations in the high 90s on room air. She has been afebrile. Hemodynamically stable. She is on D5W with 3 A of bicarb at 75 mL/h. Patient was seen today on 05/21/2024, patient remains in the ICU, I saw this patient yesterday in consultation, and recommended ICU admission mostly because of her acute renal failure with hyperkalemia hypotension requiring placement on norepinephrine. Remains on norepinephrine at 0.02 mcg/kg/min remains on sodium bicarb drip at 75 cc/h patient had her hemodialysis today, she is on Eliquis, and she will have paracentesis done by interventional etiology later this afte rnoon. Pulmonary peterson the patient is doing well, no shortness of breath no cough no wheezing her WBC is 5.9 hemoglobin is 7.2 electrolytes are much better potassium is down to 5 bicarb is 23 BUN is 78 creatinine 4.71 chest x-ray on admission showed mostly cardiomegaly and low volumes there was no evidence of infiltrate and no evidence of pulmonary edema. Patient was seen by nephrology and felt to have hepatorenal syndrome with acute on chronic kidney injury. Renal ultrasound showed no evidence of hydronephrosis. Objective - Vital Signs Vital signs: Vital Signs Temp 97.4 F L 05/21/24 12:24 Pulse 76 05/21/24 14:00 Resp 19 05/21/24 14:00 BP 107/52 05/21/24 14:00 Pulse Ox 100 05/21/24 14:00 FiO2 Intake & Output 05/20/24 05/21/24 05/21/24 18:59 06:59 18:59 Intake Total 1382.901 835.974 Output Total 1551 1440 Balance -168.099 -604.026 Weight 83.007 kg 108.2 kg Intake: IV 40 0.9ns kvo 40 Intake, IV Titration 832.901 295.974 Amount Dextrose 5% in Water 1, 825 225 000 ml @ 75 mls/hr IV . [id number] HARIKA with Sodium Bicarb (1 Meq/ml) 150 ml Rx#:[id number] Norepinephrine 4 mg In 7.901 70.974 Sodium Chloride 0.9% 250 ml @ 0.03 MCG/KG/MIN 12. 367 mls/hr IV .[id number] HARIKA Rx#:[id number] Oral 100 Hemodialysis 550 400 Output: Urine 115 40 Hemodialysis 993 900 Hemodialysis Net Amount 443 500 Other: Voiding Method Indwelling Catheter Indwelling Catheter - Exam GENERAL EXAM: 78-year-old female in no distress HEAD: Normocephalic. Atraumatic EYES: Normal reaction of pupils, equal size. NOSE: Clear with pink turbinates. THROAT: No erythema or exudates. NECK: No masses, no JVD. CHEST: No chest wall deformity. LUNGS: Equal air entry with no crackles, wheeze, rhonchi or dullness. CVS: S1 and S2 normal with no audible murmur, regular rhythm. ABDOMEN: Abdominal distention with positive fluid wave. Positive ascites SKIN: No rashes CENTRAL NERVOUS SYSTEM: No focal deficits, tone is normal in all 4 extremities. EXTREMITIES: There is no peripheral edema. No clubbing, no cyanosis. Peripheral pulses are intact. - Labs CBC & Chem 7: 05/21/24 02:40 05/21/24 02:40 Labs: Abnormal Lab Results - Last 24 Hours (Table) 05/20/24 05/20/24 05/20/24 Range/Units 14:30 16:05 16:33 RBC (3.80-5.40) m/uL Hgb (11.4-16.0) gm/dL Hct (34.0-46.0) % MCHC (31.0-37.0) g/dL RDW (11.5-15.5) % Sodium 135 L (137-145) mmol/L Potassium 7.7 H* (3.5-5.1) mmol/L Chloride 110 H (98-107) mmol/L Carbon Dioxide 15 L (22-30) mmol/L BUN 113 H* (7-17) mg/dL Creatinine 7.13 H* (0.52-1.04) mg/dL POC Glucose (mg/dL) 129 H (70-110) mg/dL Calcium (8.4-10.2) mg/dL Albumin 3.0 L (3.5-5.0) g/dL Urine Appearance Cloudy H (Clear) Urine Protein Trace H (Negative) Urine Blood Trace H (Negative) Ur Leukocyte Esterase Large H (Negative) Urine RBC 15 H (0-5) /hpf Urine WBC 19 H (0-5) /hpf Ur Squamous Epith Cells 9 H (0-4) /hpf Urine Bacteria Rare H (None) /hpf Hyaline Casts 16 H (0-2) /lpf Urine Mucus Rare H (None) /hpf 05/20/24 05/21/24 05/21/24 Range/Units 19:50 02:40 02:40 RBC 2.53 L (3.80-5.40) m/uL Hgb 7.2 L (11.4-16.0) gm/dL Hct 23.5 L (34.0-46.0) % MCHC 30.8 L (31.0-37.0) g/dL RDW 15.6 H (11.5-15.5) % Sodium 133 L (137-145) mmol/L Potassium (3.5-5.1) mmol/L Chloride (98-107) mmol/L Carbon Dioxide (22-30) mmol/L BUN 78 H (7-17) mg/dL Creatinine 4.71 H (0.52-1.04) mg/dL POC Glucose (mg/dL) 148 H (70-110) mg/dL Calcium 8.3 L (8.4-10.2) mg/dL Albumin (3.5-5.0) g/dL Urine Appearance (Clear) Urine Protein (Negative) Urine Blood (Negative) Ur Leukocyte Esterase (Negative) Urine RBC (0-5) /hpf Urine WBC (0-5) /hpf Ur Squamous Epith Cells (0-4) /hpf Urine Bacteria (None) /hpf Hyaline Casts (0-2) /lpf Urine Mucus (None) /hpf 05/21/24 Range/Units 06:30 RBC (3.80-5.40) m/uL Hgb (11.4-16.0) gm/dL Hct (34.0-46.0) % MCHC (31.0-37.0) g/dL RDW (11.5-15.5) % Sodium (137-145) mmol/L Potassium (3.5-5.1) mmol/L Chloride (98-107) mmol/L Carbon Dioxide (22-30) mmol/L BUN (7-17) mg/dL Creatinine (0.52-1.04) mg/dL POC Glucose (mg/dL) 126 H (70-110) mg/dL Calcium (8.4-10.2) mg/dL Albumin (3.5-5.0) g/dL Urine Appearance (Clear) Urine Protein (Negative) Urine Blood (Negative) Ur Leukocyte Esterase (Negative) Urine RBC (0-5) /hpf Urine WBC (0-5) /hpf Ur Squamous Epith Cells (0-4) /hpf Urine Bacteria (None) /hpf Hyaline Casts (0-2) /lpf Urine Mucus (None) /hpf Assessment and Plan Assessment: Impression: Acute kidney injury, most likely acute tubular necrosis with acute hepatorenal syndrome Chronic kidney disease stage IIIb, baseline creatinine 1.4 History of liver cirrhosis and ascites Hyperkalemia secondary to above Hyponatremia Metabolic acidosis Nonalcoholic liver failure requiring paracentesis nearly every 2 weeks. Was scheduled for one today that was not completed. Last one was 05/06/2024 with 4.5 L removed Anemia, secondary to chronic kidney disease History of atrial fibrillation anticoagulated with Eliquis, currently in sinus mechanism Hypertension Hyperlipidemia History of congestive heart failure History of anxiety/depression Diabetes mellitus Lifelong non-smoker Recommendation: Continue to monitor in the ICU since the patient is requiring norepinephrine for low blood pressure, Hypotension most likely secondary to hypoalbuminemia and intravascular depletion with third spacing and ascites. Doubt sepsis or septic shock. Continue Lasix Agree with albumin prior to paracentesis Continue midodrine Overall prognosis remains guarded Patient has multiple complex issues as noted above Will continue to follow Time with Patient: Less than 30
[2024-05-21 16:19] LABS: Glucose,Whole Blood 155 mg/dL (70-110)
[2024-05-21 17:08] LABS: % Iron Saturation 25.31 (12.00-45.00); Ferritin 58.3 ng/mL (10.0-291.0)
[2024-05-21] MEDS: FUROSEMIDE 10 MG/ML 10 ML VIAL IV STA (18:13)
[2024-05-21 22:52] LABS: Glucose,Whole Blood 163 mg/dL (70-110)
[2024-05-22 05:37] LABS: Anisocytosis Slight; HCT 24.1 % (34.0-46.0); HGB 7.4 gm/dL (11.4-16.0); Hypochromasia Slight; MCH 28.4 pg (25.0-35.0); MCHC 30.8 g/dL (31.0-37.0); MCV 92.4 fL (80.0-100.0); Mean Platelet Volume 8.2; Platelet Count 245 k/uL (150-450); RDW 16.2 % (11.5-15.5); WBC 7.5 k/uL (3.8-10.6)
[2024-05-22 06:10] LABS: ALT 16 U/L (4-34); AST 26 U/L (14-36); African American GFR (CKD) 12 (>60 ml/min/1.73 sqM); Albumin 2.2 g/dL (3.5-5.0); Alkaline Phosphatase 76 U/L (38-126); Anion Gap 6 mmol/L; Blood Urea Nitrogen 52 mg/dL (7-17); Calcium 7.9 mg/dL (8.4-10.2); Carbon Dioxide 29 mmol/L (22-30); Chloride 95 mmol/L (98-107); Glucose 112 mg/dL (74-99); Non-African American GFR(CKD) 10 (>60 ml/min/1.73 sqM); Phosphorus 4.3 mg/dL (2.5-4.5); Potassium 4.5 mmol/L (3.5-5.1); Sodium 130 mmol/L (137-145); Total Bilirubin 0.4 mg/dL (0.2-1.3); Total Protein 4.9 g/dL (6.3-8.2)
--- NOTE | 2024-05-22 09:52 | P.PN ---
Subjective Patient is seen in follow-up for acute kidney injury on chronic kidney disease. Tolerating dialysis well. Potassium level normal today. On low-dose Levophed. Urine output 10 to 20 cc an hour. Vital signs are stable. On Levophed. General: No acute distress. HEENT: Head exam is unremarkable. On nasal cannula. LUNGS: No audible rhonchi or wheezes. HEART: Rate and Rhythm are regular. ABDOMEN: Nontender. EXTREMITITES: 2+ edema. Objective - Vital Signs Vital signs: Vital Signs Temp 97.8 F 05/22/24 08:00 Pulse 66 05/22/24 08:00 Resp 12 05/22/24 08:00 BP 84/38 05/22/24 08:00 Pulse Ox 96 05/22/24 07:00 FiO2 Intake & Output 05/21/24 05/22/24 05/22/24 18:59 06:59 18:59 Intake Total 985.974 173.455 22.267 Output Total 1460 155 15 Balance -474.026 18.455 7.267 Weight 108.2 kg Intake: IV 90 120 20 0.9ns kvo 90 120 20 Intake, IV Titration 295.974 53.455 2.267 Amount Dextrose 5% in Water 1, 225 000 ml @ 75 mls/hr IV . [id number] HARIKA with Sodium Bicarb (1 Meq/ml) 150 ml Rx#:[id number] Norepinephrine 4 mg In 70.974 53.455 2.267 Sodium Chloride 0.9% 250 ml @ 0.03 MCG/KG/MIN 12. 367 mls/hr IV .[id number] HARIKA Rx#:[id number] Oral 200 Hemodialysis 400 Output: Urine 60 155 15 Hemodialysis 900 Hemodialysis Net Amount 500 Other: Voiding Method Indwelling Catheter Indwelling Catheter Indwelling Catheter # Bowel Movements 1 - Labs CBC & Chem 7: 05/22/24 04:55 05/22/24 04:55 Labs: Abnormal Lab Results - Last 24 Hours (Table) 05/21/24 05/21/24 05/21/24 Range/Units 02:40 16:18 22:50 RBC (3.80-5.40) m/uL Hgb (11.4-16.0) gm/dL Hct (34.0-46.0) % MCHC (31.0-37.0) g/dL RDW (11.5-15.5) % Sodium (137-145) mmol/L Chloride (98-107) mmol/L BUN (7-17) mg/dL Creatinine (0.52-1.04) mg/dL Glucose (74-99) mg/dL POC Glucose (mg/dL) 155 H 163 H (70-110) mg/dL Calcium (8.4-10.2) mg/dL Transferrin 175.0 L (204.0-354.0) mg/dL Total Protein (6.3-8.2) g/dL Albumin (3.5-5.0) g/dL 05/22/24 05/22/24 Range/Units 04:55 04:55 RBC 2.60 L (3.80-5.40) m/uL Hgb 7.4 L (11.4-16.0) gm/dL Hct 24.1 L (34.0-46.0) % MCHC 30.8 L (31.0-37.0) g/dL RDW 16.2 H (11.5-15.5) % Sodium 130 L (137-145) mmol/L Chloride 95 L (98-107) mmol/L BUN 52 H (7-17) mg/dL Creatinine 3.90 H (0.52-1.04) mg/dL Glucose 112 H (74-99) mg/dL POC Glucose (mg/dL) (70-110) mg/dL Calcium 7.9 L (8.4-10.2) mg/dL Transferrin (204.0-354.0) mg/dL Total Protein 4.9 L (6.3-8.2) g/dL Albumin 2.2 L (3.5-5.0) g/dL Assessment and Plan Plan: Assessment: 1. Acute kidney injury secondary to ATN secondary to hepatorenal syndrome. Creatinine over 7 on admission. No hydronephrosis noted on imaging. 2. Chronic kidney disease stage IIIb with baseline creatinine near 1.4 from January 2024. 3. Hyperkalemia secondary to acute kidney injury, metabolic acidosis, Entresto and potassium supplementation. Improved. 4. Metabolic acidosis secondary to acute kidney injury. Resolved. 5. Liver cirrhosis. 6. Diabetes mellitus. 7. Anemia of chronic kidney disease. Iron replete. 8. Volume overload. Last paracentesis was May 20, 2024 with 3.5 L drained. Plan: Remains off IV fluids. Currently seen while undergoing hemodialysis. Next treatment Friday. Add IV Lasix 80 mg twice daily. Add Aranesp. Continue to monitor renal function and urine output. Maintain midodrine. Wean Levophed.
[2024-05-22 12:25] LABS: Glucose,Whole Blood 232 mg/dL (70-110)
[2024-05-22] MEDS ORDERED: DEXTROSE 50% SYRINGE 50 ML IVP PRN ×2 (12:49)
--- NOTE | 2024-05-22 13:52 | P.PN ---
Subjective Progress Note Date: 05/22/24 Principal diagnosis: Acute kidney injury secondary to acute tubular necrosis, possible hepatorenal syndrome with hyperkalemia and severe metabolic acidosis This is an 78-year-old female patient with a known history of diabetes mellitus, hypertension, congestive heart failure, hyperlipidemia, atrial fibrillation anticoagulated with Eliquis, anxiety/depression who was here today for an elective paracentesis that she has been requiring every 2 weeks for nonalcoholic liver failure. While in the department she developed dizziness and lightheadedness and had some lab work drawn. She was found to be severely hyperkalemic with a potassium of 8.6 and acute kidney injury with a BUN of 116 and a creatinine of 7.20. She was sent to the emergency room for further evaluation. Renal ultrasound revealed no evidence of hydronephrosis or masses bilaterally. EKG reveals sinus rhythm with a first-degree AV block and a left bundle branch block. Chest x-ray reveals cardiomegaly and low lung volumes without acute pulmonary infiltrate. Was treated with dextrose, calcium, regular insulin and sodium bicarbonate. He also received Lokelma. Follow-up labs reveal a sodium of 134. Potassium 7.9. Bicarb 13. BUN 114. Creatinine 7.03. Anion gap of 10. AST 31. ALT 17. Urinalysis is cloudy with large leukoesterase and high WBCs and rare bacteria. We are consulted as the patient is to be admitted to the intensive care unit. She is seen in the emergency department. Currently sitting up on a stretcher. Awake and alert in no acute distress. Maintaining good O2 saturations in the high 90s on room air. She has been afebrile. Hemodynamically stable. She is on D5W with 3 A of bicarb at 75 mL/h. Patient was seen today on 05/21/2024, patient remains in the ICU, I saw this patient yesterday in consultation, and recommended ICU admission mostly because of her acute renal failure with hyperkalemia hypotension requiring placement on norepinephrine. Remains on norepinephrine at 0.02 mcg/kg/min remains on sodium bicarb drip at 75 cc/h patient had her hemodialysis today, she is on Eliquis, and she will have paracentesis done by interventional etiology later this afte rnoon. Pulmonary peterson the patient is doing well, no shortness of breath no cough no wheezing her WBC is 5.9 hemoglobin is 7.2 electrolytes are much better potassium is down to 5 bicarb is 23 BUN is 78 creatinine 4.71 chest x-ray on admission showed mostly cardiomegaly and low volumes there was no evidence of infiltrate and no evidence of pulmonary edema. Patient was seen by nephrology and felt to have hepatorenal syndrome with acute on chronic kidney injury. Renal ultrasound showed no evidence of hydronephrosis. Patient was seen today on 05/22/2024, patient is still requiring norepinephrine at 0.05 mcg/kg/min, she is undergoing hemodialysis today, she received Lasix earlier by nephrology, remains on Eliquis. Patient seems to be quite comfortable, she is on room air, does not seem to be in any distress. O2 saturation is 100%, I was considering transferring the patient out of the ICU t zack, however since she is on norepinephrine she needs to stay in the ICU for now. Patient was already placed on midodrine by nephrology. WBC count is 7.5 hemoglobin 7.4 electrolytes are normal BUN is 52 creatinine 3.90. Patient did undergo paracentesis yesterday by interventional radiology. Objective - Vital Signs Vital signs: Vital Signs Temp 97.6 F 05/22/24 13:26 Pulse 84 05/22/24 13:26 Resp 16 05/22/24 13:26 BP 133/61 05/22/24 13:26 Pulse Ox 100 05/22/24 11:00 FiO2 Intake & Output 05/21/24 05/22/24 05/22/24 18:59 06:59 18:59 Intake Total 985.974 173.455 772.267 Output Total 2609 333 4947 Balance -474.026 18.455 -2372.733 Weight 108.2 kg Intake: IV 90 120 20 0.9ns kvo 90 120 20 Intake, IV Titration 295.974 53.455 2.267 Amount Dextrose 5% in Water 1, 225 000 ml @ 75 mls/hr IV . [id number] HARIKA with Sodium Bicarb (1 Meq/ml) 150 ml Rx#:[id number] Norepinephrine 4 mg In 70.974 53.455 2.267 Sodium Chloride 0.9% 250 ml @ 0.03 MCG/KG/MIN 12. 367 mls/hr IV .[id number] HARIKA Rx#:[id number] Oral 200 250 Hemodialysis 400 500 Output: Urine 60 155 45 Hemodialysis 900 1800 Hemodialysis Net Amount 500 1300 Other: Voiding Method Indwelling Catheter Indwelling Catheter Indwelling Catheter # Bowel Movements 1 - Exam GENERAL EXAM: 78-year-old female in no distress, on room air HEAD: Normocephalic. Atraumatic EYES: Normal reaction of pupils, equal size. NOSE: Clear with pink turbinates. THROAT: No erythema or exudates. NECK: No masses, no JVD. CHEST: No chest wall deformity. LUNGS: Equal air entry with no crackles, wheeze, rhonchi or dullness. CVS: S1 and S2 normal with no audible murmur, regular rhythm. ABDOMEN: Abdominal distention with positive fluid wave. Positive ascites SKIN: No rashes CENTRAL NERVOUS SYSTEM: No focal deficits, tone is normal in all 4 extremities. EXTREMITIES: There is no peripheral edema. No clubbing, no cyanosis. Peripheral pulses are intact. - Labs CBC & Chem 7: 05/22/24 04:55 05/22/24 04:55 Labs: Abnormal Lab Results - Last 24 Hours (Table) 05/21/24 05/21/24 05/21/24 Range/Units 02:40 16:18 22:50 RBC (3.80-5.40) m/uL Hgb (11.4-16.0) gm/dL Hct (34.0-46.0) % MCHC (31.0-37.0) g/dL RDW (11.5-15.5) % Sodium (137-145) mmol/L Chloride (98-107) mmol/L BUN (7-17) mg/dL Creatinine (0.52-1.04) mg/dL Glucose (74-99) mg/dL POC Glucose (mg/dL) 155 H 163 H (70-110) mg/dL Calcium (8.4-10.2) mg/dL Transferrin 175.0 L (204.0-354.0) mg/dL Total Protein (6.3-8.2) g/dL Albumin (3.5-5.0) g/dL 05/22/24 05/22/24 05/22/24 Range/Units 04:55 04:55 12:24 RBC 2.60 L (3.80-5.40) m/uL Hgb 7.4 L (11.4-16.0) gm/dL Hct 24.1 L (34.0-46.0) % MCHC 30.8 L (31.0-37.0) g/dL RDW 16.2 H (11.5-15.5) % Sodium 130 L (137-145) mmol/L Chloride 95 L (98-107) mmol/L BUN 52 H (7-17) mg/dL Creatinine 3.90 H (0.52-1.04) mg/dL Glucose 112 H (74-99) mg/dL POC Glucose (mg/dL) 232 H (70-110) mg/dL Calcium 7.9 L (8.4-10.2) mg/dL Transferrin (204.0-354.0) mg/dL Total Protein 4.9 L (6.3-8.2) g/dL Albumin 2.2 L (3.5-5.0) g/dL Assessment and Plan Assessment: Impression: Acute kidney injury, most likely acute tubular necrosis with acute hepatorenal syndrome Chronic kidney disease stage IIIb, baseline creatinine 1.4 History of liver cirrhosis and ascites Hyperkalemia secondary to above Hyponatremia Metabolic acidosis Nonalcoholic liver failure requiring paracentesis nearly every 2 weeks. Was scheduled for one today that was not completed. Last one was 05/06/2024 with 4.5 L removed Anemia, secondary to chronic kidney disease History of atrial fibrillation anticoagulated with Eliquis, currently in sinus mechanism Hypertension Hyperlipidemia History of congestive heart failure History of anxiety/depression Diabetes mellitus Lifelong non-smoker Recommendation: Continue to monitor in the ICU as long as she is requiring norepinephrine otherwise could be transferred to a monitored bed and selective Hypotension most likely secondary to hypoalbuminemia and intravascular depletion with third spacing and ascites. Doubt sepsis or septic shock. Continue diuretics as per nephrology Agree with albumin prior to paracentesis Continue midodrine, adjust accordingly Overall prognosis remains guarded Continues to have multiple complex issues need to be monitored closely. Not ready for any discharge planning Will continue to follow Time with Patient: Less than 30
[2024-05-22] MEDS: FUROSEMIDE 10 MG/ML 10 ML VIAL IV SCH (13:59)
[2024-05-22] MEDS: DARBEPOETIN ALFA 40 MCG/0.4 ML SYRINGE SQ SCH (14:04)
[2024-05-22] MEDS: INSULIN LISPRO (HumaLOG) 100 UNIT/ML 10 mL VL SQ SCH (14:07)
--- NOTE | 2024-05-22 14:55 | P.PN ---
Progress Note - Text Interval History: 78-year-old female with past medical history significant for diabetes hypertension, congestive heart failure, Bernard cirrhosis, hyperlipidemia, atrial fibrillation on Eliquis, anxiety depression who went for elective paracentesis which she usually requires every 2 weekly for manage cirrhosis, while in the department patient felt dizzy lightheaded, was found to be severely hyperkalemic with a potassium of 8.6 and acute kidney injury with a BUN of 116 and creatinine 7.20. Patient was sent to ER for further evaluation. Renal ultrasound showed no obstruction or hydronephrosis. EKG showed first-degree AV block, left bundle branch block. Chest x-ray showed cardiomegaly, low lung volumes with acute pulmonary infiltrate. Patient received Lokelma, sodium bicarbonate, calcium gluconate, insulin for hyperkalemia. Patient was admitted to hospital in the ICU for further evaluation and management. Patient required norepinephrine in the ICU. Vascular surgery consulted for hemodialysis catheter placement. Nephrology consulted and patient undergoing hemodialysis. 05/22--patient was seen and examined today. Remains afebrile, heart rate 78, respiratory rate 12, blood pressure now better 144/85, saturating 99% on room air. Underwent hemodialysis today. Nephrology following, plan for repeat hemodialysis on Friday. ICU following. WBC 7.5, hemoglobin 7.4, platelet 245. Sodium 130 potassium 4.5 BUN 52, creatinine 3.90. Assessment and plan: CHAITANYA on CKD: CKD stage III: Baseline creatinine 1.4 History of liver cirrhosis and ascites Hyperkalemia Hyponatremia Metabolic acidosis Bernard cirrhosis requiring paracentesis every 2 weeks, last paracentesis 05/06/2024 with 4.5 L removed Anemia of chronic disease Atrial fibrillation on Eliquis Hypertension Hyperlipidemia Diastolic CHF Depression/anxiety Diabetes mellitus Plan: Currently in the ICU, requiring norepinephrine, ICU following Nephrology on board, undergoing hemodialysis for fluid overload, diuretics per nephrology On Levophed and midodrine for low blood pressure Monitor labs and vitals On Eliquis and Coreg. Accu-Cheks, diabetic diet, sliding scale insulin. DVT prophylaxis: AC Monitor vital signs and labs Labs and medication were reviewed. Continue same treatment. Further recommendations as per clinical course of the patient PHYSICAL EXAMINATION: GENERAL: The patient is A&O x3, NAD HEENT: EOMI, Sclerae anicteric, Moist Mucous membranes Neck: Supple, Non tender, No JVD PULMONARY: Equal breath souds B/L, No wheezing, + crackles. CARDIOVASCULAR: S1, S2 present. No murmurs, rubs, or gallops. ABDOMEN: Soft, nontender, nondistended, normoactive bowel sounds. No guarding or rebound tenderness. MUSCULOSKELETAL: ++ edema, No cyanosis. No clubbing. Normal ROM. Intact peripheral pulses. NEUROLOGICAL: CN 2-12 grossly intact. No FND Skin: No Rash REVIEW OF SYSTEMS: CONSTITUTIONAL: No fever or chills. CARDIOVASCULAR: No chest pain, palpitations or syncope. PULMONARY: No shortness of breath, no cough, sore throat. GASTROINTESTINAL: No nausea, vomiting, diarrhea, abdominal pain. : No Dysuria, urgency, frequency. NEUROLOGICAL: No headaches, no weakness, or numbness Dictation was produced using [employer] dictation software. please excuse any grammatical, word or spelling errors.
[2024-05-22 16:15] LABS: Glucose,Whole Blood 236 mg/dL (70-110)
[2024-05-22] MEDS ORDERED: INSULIN LISPRO (HumaLOG) 100 UNIT/ML 10 mL VL SQ SCH (17:30)
[2024-05-22 22:14] LABS: Glucose,Whole Blood 196 mg/dL (70-110)
[2024-05-23 03:54] LABS: Basophils % (A) 0 %; Eosinophils # (A) 0.5 k/uL (0-0.7); Eosinophils % (A) 7 %; HCT 24.1 % (34.0-46.0); HGB 7.4 gm/dL (11.4-16.0); Hypochromasia Moderate; Lymphocytes # (A) 1.8 k/uL (1.0-4.8); Lymphocytes % (A) 24 %; MCH 28.3 pg (25.0-35.0); MCHC 30.6 g/dL (31.0-37.0); MCV 92.6 fL (80.0-100.0); Mean Platelet Volume 8.7; Monocytes # (A) 0.6 k/uL (0-1.0); Monocytes % (A) 8 %; Neutrophils # (A) 4.4 k/uL (1.3-7.7); Neutrophils % (A) 58 %; Platelet Count 238 k/uL (150-450); RDW 15.7 % (11.5-15.5); WBC 7.5 k/uL (3.8-10.6)
[2024-05-23 04:06] LABS: African American GFR (CKD) 16 (>60 ml/min/1.73 sqM); Anion Gap 5 mmol/L; Blood Urea Nitrogen 31 mg/dL (7-17); Calcium 7.7 mg/dL (8.4-10.2); Carbon Dioxide 30 mmol/L (22-30); Chloride 92 mmol/L (98-107); Glucose 155 mg/dL (74-99); Non-African American GFR(CKD) 14 (>60 ml/min/1.73 sqM); Potassium 3.7 mmol/L (3.5-5.1); Sodium 127 mmol/L (137-145)
[2024-05-23 06:28] LABS: Glucose,Whole Blood 168 mg/dL (70-110)
--- NOTE | 2024-05-23 10:03 | P.PN ---
Subjective Patient is seen in follow-up for acute kidney injury on chronic kidney disease. On low-dose Levophed. Urine output 10 cc an hour. Vital signs are stable. On Levophed. General: No acute distress. HEENT: Head exam is unremarkable. On nasal cannula. LUNGS: No audible rhonchi or wheezes. HEART: Rate and Rhythm are regular. ABDOMEN: Nontender. EXTREMITITES: 2+ edema. Objective - Vital Signs Vital signs: Vital Signs Temp 98.5 F 05/22/24 20:00 Pulse 68 05/23/24 07:00 Resp 13 05/23/24 07:00 BP 118/61 05/23/24 07:00 Pulse Ox 97 05/23/24 07:00 FiO2 Intake & Output 05/22/24 05/23/24 05/23/24 18:59 06:59 18:59 Intake Total 986.622 179.877 210 Output Total 3175 185 15 Balance -2188.378 -5.123 195 Weight 107.8 kg Intake: IV 90 110 10 0.9ns kvo 90 110 10 Intake, IV Titration 146.622 69.877 Amount Norepinephrine 4 mg In 146.622 69.877 Sodium Chloride 0.9% 250 ml @ 0.03 MCG/KG/MIN 12. 367 mls/hr IV .[id number] [facility] Rx#:[id number] Oral 250 200 Hemodialysis 500 Output: Urine 75 185 15 Hemodialysis 1800 Hemodialysis Net Amount 1300 Other: Voiding Method Indwelling Catheter Indwelling Catheter - Labs CBC & Chem 7: 05/23/24 03:30 05/23/24 03:30 Labs: Abnormal Lab Results - Last 24 Hours (Table) 05/22/24 05/22/24 05/22/24 Range/Units 12:24 16:14 22:12 RBC (3.80-5.40) m/uL Hgb (11.4-16.0) gm/dL Hct (34.0-46.0) % MCHC (31.0-37.0) g/dL RDW (11.5-15.5) % Sodium (137-145) mmol/L Chloride (98-107) mmol/L BUN (7-17) mg/dL Creatinine (0.52-1.04) mg/dL Glucose (74-99) mg/dL POC Glucose (mg/dL) 232 H 236 H 196 H (70-110) mg/dL Calcium (8.4-10.2) mg/dL 05/23/24 05/23/24 05/23/24 Range/Units 03:30 03:30 06:27 RBC 2.60 L (3.80-5.40) m/uL Hgb 7.4 L (11.4-16.0) gm/dL Hct 24.1 L (34.0-46.0) % MCHC 30.6 L (31.0-37.0) g/dL RDW 15.7 H (11.5-15.5) % Sodium 127 L (137-145) mmol/L Chloride 92 L (98-107) mmol/L BUN 31 H (7-17) mg/dL Creatinine 3.02 H (0.52-1.04) mg/dL Glucose 155 H (74-99) mg/dL POC Glucose (mg/dL) 168 H (70-110) mg/dL Calcium 7.7 L (8.4-10.2) mg/dL Assessment and Plan Plan: Assessment: 1. Acute kidney injury secondary to ATN secondary to hepatorenal syndrome. Creatinine over 7 on admission. No hydronephrosis noted on imaging. 2. Chronic kidney disease stage IIIb with baseline creatinine near 1.4 from January 2024. 3. Hyperkalemia secondary to acute kidney injury, metabolic acidosis, Entresto and potassium supplementation. Improved. 4. Metabolic acidosis secondary to acute kidney injury. Resolved. 5. Liver cirrhosis. 6. Diabetes mellitus. 7. Anemia of chronic kidney disease. Iron replete. On Aranesp. 8. Volume overload. Last paracentesis was May 20, 2024 with 3.5 L drained. Plan: Hemodialysis tomorrow. Maintain IV Lasix. Continue to monitor renal function and urine output. Maintain midodrine. Wean Levophed.
[2024-05-23 11:04] LABS: Glucose,Whole Blood 178 mg/dL (70-110)
[2024-05-23] MEDS: ALBUMIN HUMAN 25% 50 ML in EMPTY BAG 1 BAG IVPB ONE (11:31)
--- NOTE | 2024-05-23 13:33 | P.PN ---
Subjective Progress Note Date: 05/23/24 Principal diagnosis: Acute kidney injury secondary to acute tubular necrosis, possible hepatorenal syndrome with hyperkalemia and severe metabolic acidosis This is an 78-year-old female patient with a known history of diabetes mellitus, hypertension, congestive heart failure, hyperlipidemia, atrial fibrillation anticoagulated with Eliquis, anxiety/depression who was here today for an elective paracentesis that she has been requiring every 2 weeks for nonalcoholic liver failure. While in the department she developed dizziness and lightheadedness and had some lab work drawn. She was found to be severely hyperkalemic with a potassium of 8.6 and acute kidney injury with a BUN of 116 and a creatinine of 7.20. She was sent to the emergency room for further evaluation. Renal ultrasound revealed no evidence of hydronephrosis or masses bilaterally. EKG reveals sinus rhythm with a first-degree AV block and a left bundle branch block. Chest x-ray reveals cardiomegaly and low lung volumes without acute pulmonary infiltrate. Was treated with dextrose, calcium, regular insulin and sodium bicarbonate. He also received Lokelma. Follow-up labs reveal a sodium of 134. Potassium 7.9. Bicarb 13. BUN 114. Creatinine 7.03. Anion gap of 10. AST 31. ALT 17. Urinalysis is cloudy with large leukoesterase and high WBCs and rare bacteria. We are consulted as the patient is to be admitted to the intensive care unit. She is seen in the emergency department. Currently sitting up on a stretcher. Awake and alert in no acute distress. Maintaining good O2 saturations in the high 90s on room air. She has been afebrile. Hemodynamically stable. She is on D5W with 3 A of bicarb at 75 mL/h. Patient was seen today on 05/21/2024, patient remains in the ICU, I saw this patient yesterday in consultation, and recommended ICU admission mostly because of her acute renal failure with hyperkalemia hypotension requiring placement on norepinephrine. Remains on norepinephrine at 0.02 mcg/kg/min remains on sodium bicarb drip at 75 cc/h patient had her hemodialysis today, she is on Eliquis, and she will have paracentesis done by interventional etiology later this afte rnoon. Pulmonary peterson the patient is doing well, no shortness of breath no cough no wheezing her WBC is 5.9 hemoglobin is 7.2 electrolytes are much better potassium is down to 5 bicarb is 23 BUN is 78 creatinine 4.71 chest x-ray on admission showed mostly cardiomegaly and low volumes there was no evidence of infiltrate and no evidence of pulmonary edema. Patient was seen by nephrology and felt to have hepatorenal syndrome with acute on chronic kidney injury. Renal ultrasound showed no evidence of hydronephrosis. Patient was seen today on 05/22/2024, patient is still requiring norepinephrine at 0.05 mcg/kg/min, she is undergoing hemodialysis today, she received Lasix earlier by nephrology, remains on Eliquis. Patient seems to be quite comfortable, she is on room air, does not seem to be in any distress. O2 saturation is 100%, I was considering transferring the patient out of the ICU t zack, however since she is on norepinephrine she needs to stay in the ICU for now. Patient was already placed on midodrine by nephrology. WBC count is 7.5 hemoglobin 7.4 electrolytes are normal BUN is 52 creatinine 3.90. Patient did undergo paracentesis yesterday by interventional radiology. Patient was seen today on 05/23/2024, remains in the ICU, mostly because she is still requiring a tiny dose of norepinephrine to maintain adequate blood pressure. Patient is on room air, not in any distress, continues to have fluid overload, and I am recommending today albumin followed by Lasix dose 40 mg IV push. Patient is on midodrine, and her blood pressure is extremely soft. WBC count is 7.5 hemoglobin 7.4 electrolytes showed low sodium of 127 BUN 31 creatinine 3.02 Objective - Vital Signs Vital signs: Vital Signs Temp 98.1 F 05/23/24 12:00 Pulse 58 L 05/23/24 12:15 Resp 12 05/23/24 12:15 BP 121/87 05/23/24 12:15 Pulse Ox 99 05/23/24 12:15 FiO2 Intake & Output 05/22/24 05/23/24 05/23/24 18:59 06:59 18:59 Intake Total 986.622 179.877 430 Output Total 3175 185 45 Balance -2188.378 -5.123 385 Weight 107.8 kg Intake: IV 90 110 60 0.9ns kvo 90 110 60 Intake, IV Titration 146.622 69.877 50 Amount Albumin Human 25% 50 ml 50 In Empty Bag 1 bag @ 50 mls/hr IVPB ONCE ONE Rx#: [id number] Norepinephrine 4 mg In 146.622 69.877 Sodium Chloride 0.9% 250 ml @ 0.03 MCG/KG/MIN 12. 367 mls/hr IV .[id number] [facility] Rx#:[id number] Oral 250 320 Hemodialysis 500 Output: Urine 75 185 45 Hemodialysis 1800 Hemodialysis Net Amount 1300 Other: Voiding Method Indwelling Catheter Indwelling Catheter Indwelling Catheter - Exam GENERAL EXAM: 78-year-old female in no distress, on room air HEAD: Normocephalic. Atraumatic EYES: Normal reaction of pupils, equal size. NOSE: Clear with pink turbinates. THROAT: No erythema or exudates. NECK: No masses, no JVD. CHEST: No chest wall deformity. LUNGS: Equal air entry with no crackles, wheeze, rhonchi or dullness. CVS: S1 and S2 normal with no audible murmur, regular rhythm. ABDOMEN: Abdominal distention with positive fluid wave. Positive ascites SKIN: No rashes CENTRAL NERVOUS SYSTEM: No focal deficits, tone is normal in all 4 extremities. EXTREMITIES: There is no peripheral edema. No clubbing, no cyanosis. Peripheral pulses are intact. - Labs CBC & Chem 7: 05/23/24 03:30 05/23/24 03:30 Labs: Abnormal Lab Results - Last 24 Hours (Table) 05/22/24 05/22/24 05/23/24 Range/Units 16:14 22:12 03:30 RBC 2.60 L (3.80-5.40) m/uL Hgb 7.4 L (11.4-16.0) gm/dL Hct 24.1 L (34.0-46.0) % MCHC 30.6 L (31.0-37.0) g/dL RDW 15.7 H (11.5-15.5) % Sodium (137-145) mmol/L Chloride (98-107) mmol/L BUN (7-17) mg/dL Creatinine (0.52-1.04) mg/dL Glucose (74-99) mg/dL POC Glucose (mg/dL) 236 H 196 H (70-110) mg/dL Calcium (8.4-10.2) mg/dL 05/23/24 05/23/24 05/23/24 Range/Units 03:30 06:27 11:02 RBC (3.80-5.40) m/uL Hgb (11.4-16.0) gm/dL Hct (34.0-46.0) % MCHC (31.0-37.0) g/dL RDW (11.5-15.5) % Sodium 127 L (137-145) mmol/L Chloride 92 L (98-107) mmol/L BUN 31 H (7-17) mg/dL Creatinine 3.02 H (0.52-1.04) mg/dL Glucose 155 H (74-99) mg/dL POC Glucose (mg/dL) 168 H 178 H (70-110) mg/dL Calcium 7.7 L (8.4-10.2) mg/dL Assessment and Plan Assessment: Impression: Acute kidney injury, most likely acute tubular necrosis with acute hepatorenal syndrome Chronic kidney disease stage IIIb, baseline creatinine 1.4 History of liver cirrhosis and ascites Hyperkalemia secondary to above Hyponatremia Metabolic acidosis Nonalcoholic liver failure requiring paracentesis nearly every 2 weeks. Was scheduled for one today that was not completed. Last one was 05/06/2024 with 4.5 L removed Anemia, secondary to chronic kidney disease History of atrial fibrillation anticoagulated with Eliquis, currently in sinus mechanism Hypertension Hyperlipidemia History of congestive heart failure History of anxiety/depression Diabetes mellitus Lifelong non-smoker Recommendation: Continue to monitor in the ICU as long as she is requiring norepinephrine otherwise could be transferred to a monitored bed and selective Continue gentle diuresis with Lasix preceded by albumin Continue midodrine, adjust accordingly Overall prognosis remains guarded Continues to have multiple complex issues need to be monitored closely. Will continue to follow Time with Patient: Less than 30
--- NOTE | 2024-05-23 14:48 | P.PN ---
Subjective Progress Note Date: 05/23/24 Interval History: 78-year-old female with past medical history significant for diabetes hypertension, congestive heart failure, Bernard cirrhosis, hyperlipidemia, atrial fibrillation on Eliquis, anxiety depression who went for elective paracentesis which she usually requires every 2 weekly for manage cirrhosis, while in the department patient felt dizzy lightheaded, was found to be severely hyperkalemic with a potassium of 8.6 and acute kidney injury with a BUN of 116 and creatinine 7.20. Patient was sent to ER for further evaluation. Renal ultrasound showed no obstruction or hydronephrosis. EKG showed first-degree AV block, left bundle branch block. Chest x-ray showed cardiomegaly, low lung volumes with acute pulmonary infiltrate. Patient received Lokelma, sodium bicarbonate, calcium gluconate, insulin for hyperkalemia. Patient was admitted to hospital in the ICU for further evaluation and management. Patient required norepinephrine in the ICU. Vascular surgery consulted for hemodialysis catheter placement. Nephrology consulted and patient undergoing hemodialysis. 05/22--patient was seen and examined today. Remains afebrile, heart rate 78, respiratory rate 12, blood pressure now better 144/85, saturating 99% on room air. Underwent hemodialysis today. Nephrology following, plan for repeat hemodialysis on Friday. ICU following. WBC 7.5, hemoglobin 7.4, platelet 245. Sodium 130 potassium 4.5 BUN 52, creatinine 3.90. 05/23--patient was seen and examined today. No issues overnight. Patient is afebrile, heart rate 56, respiratory rate 11, blood pressure soft 75/44, satur ating 94% on room air. WBC 7.5, hemoglobin 7.4, platelet 238. Sodium 127, potassium 3.7, chloride 92, CO2 30, BUN 31, creatinine 3.02, calcium 7.7. Assessment and plan: CHAITANYA on CKD: CKD stage III: Baseline creatinine 1.4 History of liver cirrhosis and ascites Hyperkalemia Hyponatremia Metabolic acidosis Bernard cirrhosis requiring paracentesis every 2 weeks, last paracentesis 05/06/2024 with 4.5 L removed Anemia of chronic disease Atrial fibrillation on Eliquis Hypertension Hyperlipidemia Acute on chronic diastolic CHF Depression/anxiety Diabetes mellitus Plan: Currently in the ICU, required norepinephrine, ICU following Nephrology on board, undergoing hemodialysis for fluid overload, diuretics per nephrology On Levophed and midodrine for low blood pressure Monitor labs and vitals On Eliquis and Coreg. Accu-Cheks, diabetic diet, sliding scale insulin. DVT prophylaxis: AC Monitor vital signs and labs Labs and medication were reviewed. Continue same treatment. Further recommendations as per clinical course of the patient PHYSICAL EXAMINATION: GENERAL: The patient is A&O x3, NAD HEENT: EOMI, Sclerae anicteric, Moist Mucous membranes Neck: Supple, Non tender, No JVD PULMONARY: Equal breath souds B/L, No wheezing, + crackles. CARDIOVASCULAR: S1, S2 present. No murmurs, rubs, or gallops. ABDOMEN: Soft, nontender, nondistended, normoactive bowel sounds. No guarding or rebound tenderness. MUSCULOSKELETAL: ++ edema, No cyanosis. No clubbing. Normal ROM. Intact peripheral pulses. NEUROLOGICAL: CN 2-12 grossly intact. No FND Skin: No Rash REVIEW OF SYSTEMS: CONSTITUTIONAL: No fever or chills. CARDIOVASCULAR: No chest pain, palpitations or syncope. PULMONARY: No shortness of breath, no cough, sore throat. GASTROINTESTINAL: No nausea, vomiting, diarrhea, abdominal pain. : No Dysuria, urgency, frequency. NEUROLOGICAL: No headaches, no weakness, or numbness Dictation was produced using [employer] dictation software. please excuse any grammatical, word or spelling errors. Objective - Vital Signs Vital signs: Vital Signs Temp 98.1 F 05/23/24 12:00 Pulse 56 L 05/23/24 14:30 Resp 11 L 05/23/24 14:30 BP 75/44 05/23/24 14:30 Pulse Ox 94 L 05/23/24 14:30 FiO2 Intake & Output 05/22/24 05/23/24 05/23/24 18:59 06:59 18:59 Intake Total 986.622 179.877 450 Output Total 3175 185 53 Balance -2188.378 -5.123 397 Weight 107.8 kg Intake: IV 90 110 80 0.9ns kvo 90 110 80 Intake, IV Titration 146.622 69.877 50 Amount Albumin Human 25% 50 ml 50 In Empty Bag 1 bag @ 50 mls/hr IVPB ONCE ONE Rx#: [id number] Norepinephrine 4 mg In 146.622 69.877 Sodium Chloride 0.9% 250 ml @ 0.03 MCG/KG/MIN 12. 367 mls/hr IV .[id number] [facility] Rx#:[id number] Oral 250 320 Hemodialysis 500 Output: Urine 75 185 53 Hemodialysis 1800 Hemodialysis Net Amount 1300 Other: Voiding Method Indwelling Catheter Indwelling Catheter Indwelling Catheter - Labs CBC & Chem 7: 05/23/24 03:30 05/23/24 03:30 Labs: Abnormal Lab Results - Last 24 Hours (Table) 05/22/24 05/22/24 05/23/24 Range/Units 16:14 22:12 03:30 RBC 2.60 L (3.80-5.40) m/uL Hgb 7.4 L (11.4-16.0) gm/dL Hct 24.1 L (34.0-46.0) % MCHC 30.6 L (31.0-37.0) g/dL RDW 15.7 H (11.5-15.5) % Sodium (137-145) mmol/L Chloride (98-107) mmol/L BUN (7-17) mg/dL Creatinine (0.52-1.04) mg/dL Glucose (74-99) mg/dL POC Glucose (mg/dL) 236 H 196 H (70-110) mg/dL Calcium (8.4-10.2) mg/dL 05/23/24 05/23/24 05/23/24 Range/Units 03:30 06:27 11:02 RBC (3.80-5.40) m/uL Hgb (11.4-16.0) gm/dL Hct (34.0-46.0) % MCHC (31.0-37.0) g/dL RDW (11.5-15.5) % Sodium 127 L (137-145) mmol/L Chloride 92 L (98-107) mmol/L BUN 31 H (7-17) mg/dL Creatinine 3.02 H (0.52-1.04) mg/dL Glucose 155 H (74-99) mg/dL POC Glucose (mg/dL) 168 H 178 H (70-110) mg/dL Calcium 7.7 L (8.4-10.2) mg/dL
[2024-05-23 16:22] LABS: Glucose,Whole Blood 191 mg/dL (70-110)
[2024-05-23 22:18] LABS: Glucose,Whole Blood 196 mg/dL (70-110)
[2024-05-24 06:44] LABS: Glucose,Whole Blood 169 mg/dL (70-110)
[2024-05-24 07:20] LABS: Basophils # (A) 0.1 k/uL (0-0.2); Basophils % (A) 1 %; Eosinophils # (A) 0.6 k/uL (0-0.7); Eosinophils % (A) 8 %; HCT 25.3 % (34.0-46.0); HGB 7.7 gm/dL (11.4-16.0); Hypochromasia Marked; Lymphocytes # (A) 1.4 k/uL (1.0-4.8); Lymphocytes % (A) 18 %; MCH 28.8 pg (25.0-35.0); MCHC 30.4 g/dL (31.0-37.0); MCV 94.6 fL (80.0-100.0); Mean Platelet Volume 7.4; Monocytes # (A) 0.7 k/uL (0-1.0); Monocytes % (A) 9 %; Neutrophils # (A) 4.9 k/uL (1.3-7.7); Neutrophils % (A) 62 %; Platelet Count 229 k/uL (150-450); RBC 2.68 m/uL (3.80-5.40); RDW 15.7 % (11.5-15.5)
[2024-05-24 07:42] LABS: African American GFR (CKD) 12 (>60 ml/min/1.73 sqM); Anion Gap 9 mmol/L; Blood Urea Nitrogen 39 mg/dL (7-17); Calcium 7.8 mg/dL (8.4-10.2); Carbon Dioxide 26 mmol/L (22-30); Chloride 92 mmol/L (98-107); Glucose 132 mg/dL (74-99); Non-African American GFR(CKD) 10 (>60 ml/min/1.73 sqM); Phosphorus 4.6 mg/dL (2.5-4.5); Potassium 4.2 mmol/L (3.5-5.1); Sodium 127 mmol/L (137-145)
--- NOTE | 2024-05-24 08:34 | P.PN ---
Subjective Progress Note Date: 05/24/24 This is an 86-year-old female who was undergoing an outpatient paracentesis when she felt dizzy and lightheaded and was found to be hyperkalemic. Patient also found to have an acute kidney injury with a BUN of 116 and creatinine of 7.20 on admission. Patient had a hemodialysis catheter placed by vascular surgery and has been getting hemodialysis. Patient seen this morning resting comfortably in bed with hemodiaysis running. Her kidney function is slowly improving. Objective - Vital Signs Vital signs: Vital Signs Temp 98.2 F 05/24/24 04:00 Pulse 65 05/24/24 07:00 Resp 10 L 05/24/24 07:00 BP 125/46 05/24/24 07:00 Pulse Ox 96 05/24/24 07:00 FiO2 Intake & Output 05/23/24 05/24/24 05/24/24 18:59 06:59 18:59 Intake Total 470 57.158 Output Total 83 218 5 Balance 387 -160.842 -5 Weight 109 kg Intake: IV 100 0.9ns kvo 100 Intake, IV Titration 50 57.158 Amount Albumin Human 25% 50 ml 50 In Empty Bag 1 bag @ 50 mls/hr IVPB ONCE ONE Rx#: [id number] Norepinephrine 4 mg In 57.158 Sodium Chloride 0.9% 250 ml @ 0.03 MCG/KG/MIN 12. 367 mls/hr IV .[id number] [facility] Rx#:[id number] Oral 320 Output: Urine 83 218 5 Other: Voiding Method Indwelling Catheter Indwelling Catheter # Bowel Movements 1 - Constitutional General appearance: Present: cooperative, no acute distress - EENT Eyes: Present: PERRLA - Neck Neck: Present: normal ROM. Absent: lymphadenopathy, rigidity - Respiratory Respiratory: bilateral: diminished - Cardiovascular Heart sounds: normal: S1, S2 - Gastrointestinal General gastrointestinal: Present: soft. Absent: tenderness - Integumentary Integumentary: Present: normal, normal turgor - Musculoskeletal Musculoskeletal: Present: generalized weakness - Psychiatric Psychiatric: Present: A&O x's 3 - Labs CBC & Chem 7: 05/24/24 06:33 05/24/24 06:33 Labs: Abnormal Lab Results - Last 24 Hours (Table) 05/23/24 05/23/24 05/23/24 Range/Units 11:02 16:21 22:16 RBC (3.80-5.40) m/uL Hgb (11.4-16.0) gm/dL Hct (34.0-46.0) % MCHC (31.0-37.0) g/dL RDW (11.5-15.5) % Sodium (137-145) mmol/L Chloride (98-107) mmol/L BUN (7-17) mg/dL Creatinine (0.52-1.04) mg/dL Glucose (74-99) mg/dL POC Glucose (mg/dL) 178 H 191 H 196 H (70-110) mg/dL Calcium (8.4-10.2) mg/dL Phosphorus (2.5-4.5) mg/dL 05/24/24 05/24/24 05/24/24 Range/Units 06:33 06:33 06:42 RBC 2.68 L (3.80-5.40) m/uL Hgb 7.7 L (11.4-16.0) gm/dL Hct 25.3 L (34.0-46.0) % MCHC 30.4 L (31.0-37.0) g/dL RDW 15.7 H (11.5-15.5) % Sodium 127 L (137-145) mmol/L Chloride 92 L (98-107) mmol/L BUN 39 H (7-17) mg/dL Creatinine 3.88 H (0.52-1.04) mg/dL Glucose 132 H (74-99) mg/dL POC Glucose (mg/dL) 169 H (70-110) mg/dL Calcium 7.8 L (8.4-10.2) mg/dL Phosphorus 4.6 H (2.5-4.5) mg/dL Assessment and Plan (1) Acute kidney injury Current Visit: Yes Status: Acute Code(s): N17.9 - ACUTE KIDNEY FAILURE, UNSPECIFIED SNOMED Code(s): 41411487 (2) CKD (chronic kidney disease) Current Visit: Yes Status: Acute Code(s): N18.9 - CHRONIC KIDNEY DISEASE, UNSPECIFIED SNOMED Code(s): 541147969 (3) Hyperkalemia Current Visit: Yes Status: Acute Code(s): E87.5 - HYPERKALEMIA SNOMED Code(s): 45102682 (4) Ascites Current Visit: No Status: Acute Code(s): R18.8 - OTHER ASCITES SNOMED Code(s): 153510062 (5) Atrial fibrillation Current Visit: No Status: Acute Code(s): I48.91 - UNSPECIFIED ATRIAL FIBRILLATION SNOMED Code(s): 62320972 (6) CAD (coronary artery disease) Current Visit: No Status: Acute Code(s): I25.10 - ATHSCL HEART DISEASE OF [place] CORONARY ARTERY W/O ANG PCTRS SNOMED Code(s): 20838380 (7) Chronic wound Current Visit: No Status: Acute Code(s): T14.8XXA - OTHER INJURY OF UNSPECIFIED BODY REGION, INITIAL ENCOUNTER SNOMED Code(s): 83108547280563 (8) Diabetes Current Visit: No Status: Acute Code(s): E11.9 - TYPE 2 DIABETES MELLITUS WITHOUT COMPLICATIONS SNOMED Code(s): 46891990 (9) Hyperlipidemia Current Visit: No Status: Acute Code(s): E78.5 - HYPERLIPIDEMIA, UNSPECIFIED SNOMED Code(s): 01023943 Plan: Check CBC and CMP in the morning. Appreciate multiple consultants. Patient seen and evaluated by nurse practitioner, physician in agreement with plan.
--- NOTE | 2024-05-24 10:30 | P.PN ---
Subjective Patient is seen for follow-up for acute kidney injury and chronic kidney disease. She has been started on dialysis on 05/21/2024. Tolerating treatment well. Urine output at 300 mL for 24 hours. No complaints of shortness of breath today. Objective - Vital Signs Vital signs: Vital Signs Temp 98.2 F 05/24/24 08:00 Pulse 62 05/24/24 09:00 Resp 15 05/24/24 09:00 BP 100/50 05/24/24 09:00 Pulse Ox 97 05/24/24 09:00 FiO2 Intake & Output 05/23/24 05/24/24 05/24/24 18:59 06:59 18:59 Intake Total 470 57.158 200 Output Total 83 218 30 Balance 387 -160.842 170 Weight 109 kg Intake: IV 100 0.9ns kvo 100 Intake, IV Titration 50 57.158 Amount Albumin Human 25% 50 ml 50 In Empty Bag 1 bag @ 50 mls/hr IVPB ONCE ONE Rx#: [id number] Norepinephrine 4 mg In 57.158 Sodium Chloride 0.9% 250 ml @ 0.03 MCG/KG/MIN 12. 367 mls/hr IV .[id number] [facility] Rx#:[id number] Oral 320 200 Output: Urine 83 218 30 Other: Voiding Method Indwelling Catheter Indwelling Catheter Indwelling Catheter # Bowel Movements 1 - Exam Patient is awake, comfortable, no acute distress. Examination of the heart S1 and S2 Examination of the lungs bilateral breath sounds are heard Abdomen is soft nontender Examination of lower extremities shows 2+ edema GAMING PIT BOSS exam grossly intact - Labs CBC & Chem 7: 05/24/24 06:33 05/24/24 06:33 Labs: Abnormal Lab Results - Last 24 Hours (Table) 05/23/24 05/23/24 05/23/24 Range/Units 11:02 16:21 22:16 RBC (3.80-5.40) m/uL Hgb (11.4-16.0) gm/dL Hct (34.0-46.0) % MCHC (31.0-37.0) g/dL RDW (11.5-15.5) % Sodium (137-145) mmol/L Chloride (98-107) mmol/L BUN (7-17) mg/dL Creatinine (0.52-1.04) mg/dL Glucose (74-99) mg/dL POC Glucose (mg/dL) 178 H 191 H 196 H (70-110) mg/dL Calcium (8.4-10.2) mg/dL Phosphorus (2.5-4.5) mg/dL 05/24/24 05/24/24 05/24/24 Range/Units 06:33 06:33 06:42 RBC 2.68 L (3.80-5.40) m/uL Hgb 7.7 L (11.4-16.0) gm/dL Hct 25.3 L (34.0-46.0) % MCHC 30.4 L (31.0-37.0) g/dL RDW 15.7 H (11.5-15.5) % Sodium 127 L (137-145) mmol/L Chloride 92 L (98-107) mmol/L BUN 39 H (7-17) mg/dL Creatinine 3.88 H (0.52-1.04) mg/dL Glucose 132 H (74-99) mg/dL POC Glucose (mg/dL) 169 H (70-110) mg/dL Calcium 7.8 L (8.4-10.2) mg/dL Phosphorus 4.6 H (2.5-4.5) mg/dL Assessment and Plan Assessment: 1. Acute kidney injury secondary to ATN secondary to hepatorenal syndrome. Creatinine over 7 on admission. No hydronephrosis noted on imaging. Started hemodialysis on 05/21/2024 for worsening renal function and oliguria 2. Chronic kidney disease stage IIIb with baseline creatinine near 1.4 from January 2024. 3. Hyperkalemia secondary to acute kidney injury, metabolic acidosis, Entresto and potassium supplementation. Improved. 4. Metabolic acidosis secondary to acute kidney injury. Resolved. 5. Liver cirrhosis. 6. Diabetes mellitus. 7. Anemia of chronic kidney disease. Iron replete. On Aranesp. 8. Volume overload. Last paracentesis was May 20, 2024 with 3.5 L drained. Plan: Continue with IV Lasix Continue midodrine Continue iron as Next hemodialysis on 05/26/2024
--- NOTE | 2024-05-24 10:38 | US ---
EXAMINATION TYPE: US paracentesis abd w/image DATE OF EXAM: 05/21/2024 12:45 PM COMPARISON: prior paracentesis. CLINICAL INDICATION:Female, 78 years old with history of see IR consult for ordering information; , a scites ATTENDING: Dr. Trevor Lockwood PROCEDURE: Informed consent was obtained. The risks of the procedure were extensively explained incl uding risk of damage to surrounding bowel with perforation and need for additional procedures. Proced ure was performed in the patient's ICU room. Ultrasound imaging of the abdomen demonstrate ascitic fl uid. An appropriate access site was localized to the right lower abdomen. Timeout was taken per manny col. The skin was prepped and draped in the usual sterile fashion and then locally anesthetized with 1% lidocaine. The peritoneal cavity was then accessed via a 5-Turkmen one-step needle/catheter. Appr oximately 3600 mL of clear straw-colored fluid was obtained. Postprocedural imaging of the abdomen de monstrate a minimal amount of abdominal fluid. Patient tolerated procedure well without immediate complication. Hemostasis at the procedural site w as obtained with a sterile bandage placed. The patient was monitored in the holding area following th e procedure and was subsequently discharged in stable condition. IMPRESSION: Ultrasound guided paracentesis, with approximately 3600 mL of clear straw-colored fluid drained. No i mmediate complications were evident. [facility], , 05/21/2024 1:43 PM
[2024-05-24 10:57] LABS: Glucose,Whole Blood 199 mg/dL (70-110)
--- NOTE | 2024-05-24 12:39 | P.PN ---
Subjective Progress Note Date: 05/24/24 This is an 78-year-old female patient with a known history of diabetes mellitus, hypertension, congestive heart failure, hyperlipidemia, atrial fibrillation anticoagulated with Eliquis, anxiety/depression who was here today for an elective paracentesis that she has been requiring every 2 weeks for nonalcoholic liver failure. While in the department she developed dizziness and lightheadedness and had some lab work drawn. She was found to be severely hyperkalemic with a potassium of 8.6 and acute kidney injury with a BUN of 116 and a creatinine of 7.20. She was sent to the emergency room for further evaluation. Renal ultrasound revealed no evidence of hydronephrosis or masses bilaterally. EKG reveals sinus rhythm with a first-degree AV block and a left bundle branch block. Chest x-ray reveals cardiomegaly and low lung volumes without acute pulmonary infiltrate. Was treated with dextrose, calcium, regular insulin and sodium bicarbonate. He also received Lokelma. Follow-up labs reveal a sodium of 134. Potassium 7.9. Bicarb 13. BUN 114. Creatinine 7.03. Anion gap of 10. AST 31. ALT 17. Urinalysis is cloudy with large leukoesterase and high WBCs and rare bacteria. We are consulted as the patient is to be admitted to the intensive care unit. She is seen in the emergency dep artment. Currently sitting up on a stretcher. Awake and alert in no acute distress. Maintaining good O2 saturations in the high 90s on room air. She has been afebrile. Hemodynamically stable. She is on D5W with 3 A of bicarb at 75 mL/h. Patient was seen today on 05/21/2024, patient remains in the ICU, I saw this patient yesterday in consultation, and recommended ICU admission mostly because of her acute renal failure with hyperkalemia hypotension requiring placement on norepinephrine. Remains on norepinephrine at 0.02 mcg/kg/min remains on sodium bicarb drip at 75 cc/h patient had her hemodialysis today, she is on Eliquis, and she will have paracentesis done by interventional etiology later this afternoon. Pulmonary peterson the patient is doing well, no shortness of breath no cough no wheezing her WBC is 5.9 hemoglobin is 7.2 electrolytes are much better potassium is down to 5 bicarb is 23 BUN is 78 creatinine 4.71 chest x-ray on admission showed mostly cardiomegaly and low volumes there was no evidence of infiltrate and no evidence of pulmonary edema. Patient was seen by nephrology and felt to have hepatorenal syndrome with acute on chronic kidney injury. Renal ultrasound showed no evidence of hydronephrosis. Patient was seen today on 05/22/2024, patient is still requiring norepinephrine at 0.05 mcg/kg/min, she is undergoing hemodialysis today, she received Lasix earlier by nephrology, remains on Eliquis. Patient seems to be quite comfortable, she is on room air, does not seem to be in any distress. O2 saturation is 100%, I was considering transferring the patient out of the ICU today, however since she is on norepinephrine she needs to stay in the ICU for now. Patient was already placed on midodrine by nephrology. WBC count is 7.5 hemoglobin 7.4 electrolytes are normal BUN is 52 creatinine 3.90. Patient did undergo paracentesis yesterday by interventional radiology. Patient was seen today on 05/23/2024, remains in the ICU, mostly because she is still requiring a tiny dose of norepinephrine to maintain adequate blood pressure. Patient is on room air, not in any distress, continues to have fluid overload, and I am recommending today albumin followed by Lasix dose 40 mg IV push. Patient is on midodrine, and her blood pressure is extremely soft. WBC count is 7.5 hemoglobin 7.4 electrolytes showed low sodium of 127 BUN 31 creatinine 3.02 The patient is seen today May 24, 2024 in follow-up in the intensive care unit. She is currently awake and alert in no acute distress. Resting comfortably in bed. Maintaining O2 saturations in the 90s on room air. She is currently receiving hemodialysis with a goal of 1.2 L of fluid to be removed. Her blood pressure remains soft. She has been off the norepinephrine. She is on midodrine 10 mg 3 times daily. White count 8.0. Hemoglobin 7.7. Platelets 229. Sodium 127. Potassium 4.2. Bicarb 26. BUN 39. Creatinine 3.88. Glucose 132. Remains on IV Lasix 80 mg every 12 hours. Anticoagulate with Eliquis. Objective - Vital Signs Vital signs: Vital Signs Temp 98.2 F 05/24/24 08:00 Pulse 53 L 05/24/24 11:00 Resp 18 05/24/24 11:00 BP 94/39 05/24/24 11:00 Pulse Ox 99 05/24/24 11:00 FiO2 Intake & Output 05/23/24 05/24/24 05/24/24 18:59 06:59 18:59 Intake Total 470 57.158 200 Output Total 83 218 35 Balance 387 -160.842 165 Weight 109 kg Intake: IV 100 0.9ns kvo 100 Intake, IV Titration 50 57.158 Amount Albumin Human 25% 50 ml 50 In Empty Bag 1 bag @ 50 mls/hr IVPB ONCE ONE Rx#: [id number] Norepinephrine 4 mg In 57.158 Sodium Chloride 0.9% 250 ml @ 0.03 MCG/KG/MIN 12. 367 mls/hr IV .[id number] [facility] Rx#:[id number] Oral 320 200 Output: Urine 83 218 35 Other: Voiding Method Indwelling Catheter Indwelling Catheter Indwelling Catheter # Bowel Movements 1 - Exam GENERAL EXAM: A very pleasant 78-year-old female, sitting up in bed, in no distress, on room air. HEAD: Normocephalic. Atraumatic EYES: Normal reaction of pupils, equal size. NOSE: Clear with pink turbinates. THROAT: No erythema or exudates. NECK: No masses, no JVD. CHEST: No chest wall deformity. LUNGS: Equal air entry with no crackles, wheeze, rhonchi or dullness. CVS: S1 and S2 normal with no audible murmur, regular rhythm. ABDOMEN: Abdominal distention with positive fluid wave. Positive ascites SKIN: No rashes CENTRAL NERVOUS SYSTEM: No focal deficits, tone is normal in all 4 extremities. EXTREMITIES: There is no peripheral edema. No clubbing, no cyanosis. Peripheral pulses are intact. - Labs CBC & Chem 7: 05/24/24 06:33 05/24/24 06:33 Labs: Abnormal Lab Results - Last 24 Hours (Table) 05/23/24 05/23/24 05/24/24 Range/Units 16:21 22:16 06:33 RBC (3.80-5.40) m/uL Hgb (11.4-16.0) gm/dL Hct (34.0-46.0) % MCHC (31.0-37.0) g/dL RDW (11.5-15.5) % Sodium 127 L (137-145) mmol/L Chloride 92 L (98-107) mmol/L BUN 39 H (7-17) mg/dL Creatinine 3.88 H (0.52-1.04) mg/dL Glucose 132 H (74-99) mg/dL POC Glucose (mg/dL) 191 H 196 H (70-110) mg/dL Calcium 7.8 L (8.4-10.2) mg/dL Phosphorus 4.6 H (2.5-4.5) mg/dL 05/24/24 05/24/24 05/24/24 Range/Units 06:33 06:42 10:56 RBC 2.68 L (3.80-5.40) m/uL Hgb 7.7 L (11.4-16.0) gm/dL Hct 25.3 L (34.0-46.0) % MCHC 30.4 L (31.0-37.0) g/dL RDW 15.7 H (11.5-15.5) % Sodium (137-145) mmol/L Chloride (98-107) mmol/L BUN (7-17) mg/dL Creatinine (0.52-1.04) mg/dL Glucose (74-99) mg/dL POC Glucose (mg/dL) 169 H 199 H (70-110) mg/dL Calcium (8.4-10.2) mg/dL Phosphorus (2.5-4.5) mg/dL Assessment and Plan Assessment: Acute kidney injury on top of chronic kidney disease stage IIIb.. To acute tubular necrosis with acute hepatorenal syndrome. Renal ultrasound revealed no evidence of hydronephrosis or masses. Initiated on hemodialysis on 05/21/2024 Hyperkalemia secondary to above, improved Hyponatremia Metabolic acidosis Nonalcoholic liver failure requiring paracentesis nearly every 2 weeks. Last one was 05/06/2024 with 4.5 L removed Anemia, current hemoglobin 7.7 History of atrial fibrillation anticoagulated with Eliquis, currently in sinus mechanism Hypertension Hyperlipidemia History of congestive heart failure History of anxiety/depression Diabetes mellitus Lifelong non-smoker Plan: The patient was seen and evaluated Labs and medications reviewed Receiving hemodialysis today Currently stable and on room air Stable and off pressors Could transfer out of the ICU to [facility]. today We will continue to follow I have personally seen and examined the patient, performed the documentation and the assessment and plan as written. Number of minutes spent on the visit: 10 Dictation was produced using [employer] dictation software. Please excuse any grammatical, word or spelling errors.
[2024-05-24 19:59] LABS: Glucose,Whole Blood 254 mg/dL (70-110)
[2024-05-24] MEDS ORDERED: MD COMMUNICATION TO PHARMACY 1 EACH MISC PO PRN (20:19)
[2024-05-24] MEDS: TOUJEO MAX PO SCH (20:52)
[2024-05-25 06:13] LABS: Glucose,Whole Blood 176 mg/dL (70-110)
[2024-05-25] MEDS: TOUJEO MAX PO SCH (06:25)
--- NOTE | 2024-05-25 08:44 | P.PN ---
Subjective Progress Note Date: 05/25/24 This is an 86-year-old female who was undergoing an outpatient paracentesis when she felt dizzy and lightheaded and was found to be hyperkalemic. Patient also found to have an acute kidney injury with a BUN of 116 and creatinine of 7.20 on admission. Patient had a hemodialysis catheter placed by vascular surgery and has been getting hemodialysis. Patient seen this morning resting comfortably in bed with hemodiaysis running. Her kidney function is slowly improving. 05/25/2024 Patient seen and evaluated sitting up in bed this morning. She did have hemodialysis yesterday. Blood pressure has been stable. Labs are not back from today at time of dictation. Patient concerned for chronic wounds on her bilateral lower extremities. Objective - Vital Signs Vital signs: Vital Signs Temp 97.9 F 05/25/24 00:00 Pulse 70 05/25/24 07:00 Resp 16 05/25/24 07:00 BP 101/44 05/25/24 05:00 Pulse Ox 97 05/25/24 07:00 FiO2 Intake & Output 05/24/24 05/25/24 05/25/24 18:59 06:59 18:59 Intake Total 700 Output Total 2935 120 Balance -2235 -120 Weight 107.8 kg Intake: Oral 200 Hemodialysis 500 Output: Urine 35 120 Hemodialysis 1700 Hemodialysis Net Amount 1200 Other: Voiding Method Indwelling Catheter Indwelling Catheter - Constitutional General appearance: Present: cooperative, no acute distress - EENT Eyes: Present: PERRLA - Neck Neck: Present: normal ROM. Absent: lymphadenopathy, rigidity - Respiratory Respiratory: bilateral: diminished - Cardiovascular Heart sounds: normal: S1, S2 - Gastrointestinal General gastrointestinal: Present: soft. Absent: tenderness - Integumentary Integumentary: Present: normal turgor - Musculoskeletal Musculoskeletal: Present: generalized weakness - Psychiatric Psychiatric: Present: A&O x's 3 - Labs CBC & Chem 7: 05/24/24 06:33 05/24/24 06:33 Labs: Abnormal Lab Results - Last 24 Hours (Table) 05/24/24 05/24/24 05/25/24 Range/Units 10:56 19:52 06:11 POC Glucose (mg/dL) 199 H 254 H 176 H (70-110) mg/dL Assessment and Plan (1) Acute kidney injury Current Visit: Yes Status: Acute Code(s): N17.9 - ACUTE KIDNEY FAILURE, UNSPECIFIED SNOMED Code(s): 31599713 (2) CKD (chronic kidney disease) Current Visit: Yes Status: Acute Code(s): N18.9 - CHRONIC KIDNEY DISEASE, UNSPECIFIED SNOMED Code(s): 286828070 (3) Hyperkalemia Current Visit: Yes Status: Acute Code(s): E87.5 - HYPERKALEMIA SNOMED Code(s): 62283948 (4) Ascites Current Visit: No Status: Acute Code(s): R18.8 - OTHER ASCITES SNOMED Code(s): 284722107 (5) Atrial fibrillation Current Visit: No Status: Acute Code(s): I48.91 - UNSPECIFIED ATRIAL FIBRILLATION SNOMED Code(s): 82227101 (6) CAD (coronary artery disease) Current Visit: No Status: Acute Code(s): I25.10 - ATHSCL HEART DISEASE OF [place] CORONARY ARTERY W/O ANG PCTRS SNOMED Code(s): 99988471 (7) Chronic wound Current Visit: No Status: Acute Code(s): T14.8XXA - OTHER INJURY OF U NSPECIFIED BODY REGION, INITIAL ENCOUNTER SNOMED Code(s): 86472595996209 (8) Diabetes Current Visit: No Status: Acute Code(s): E11.9 - TYPE 2 DIABETES MELLITUS WITHOUT COMPLICATIONS SNOMED Code(s): 57360609 (9) Hyperlipidemia Current Visit: No Status: Acute Code(s): E78.5 - HYPERLIPIDEMIA, UNSPECIFIED SNOMED Code(s): 52100509 Plan: Check CBC and CMP in the morning. Appreciate multiple consultants. Will consult wound care and Dr. Bowman. Patient has been seen by them previously. Patient seen and evaluated by nurse practitioner, physician in agreement with plan.
[2024-05-25 09:12] LABS: HCT 23.3 % (34.0-46.0); Hypochromasia Marked; MCH 28.5 pg (25.0-35.0); MCHC 30.1 g/dL (31.0-37.0); MCV 94.9 fL (80.0-100.0); Mean Platelet Volume 7.8; Platelet Count 178 k/uL (150-450); RBC 2.45 m/uL (3.80-5.40); RDW 15.9 % (11.5-15.5); WBC 7.6 k/uL (3.8-10.6)
--- NOTE | 2024-05-25 09:33 | P.CONS ---
History of Present Illness - Reason for Consult Consult date: 05/25/24 wound care - History of Present Illness This is an 78-year-old patient known to the wound care center being seen in ICU for Chronic ulceration. Patient at this time has no open ulcerations. She does Have excoriation to the sacrum. Patient is complaining of drainage to right ankle however at this time bilateral lower extremities are dry and scaly skin is noted. Review Of Systems: Constitutional: No fever, no chills, no night sweats. No weight change. No weakness, fatigue or lethargy. No daytime sleepiness. Integumentary:reports wounds, no lesions. No rash or pruritus. No unusual bruising. No change in hair or nails. Physical exam: General Appearance: Alert, cooperative, no distress, appears stated age. Skin: See HPI all other Skin color, texture, tugor normal, no rashes or lesions. Neurologic: Alert oriented x3 Assessment: 1. Stage I pressure ulcer sacrum 2. Excoriation bilateral lower extremities Plan: 1. Apply zinc barrier cream to bilateral lower extremities sacrum daily and as needed. If sacrum continues to breakdown with open ulcerations utilize honey gel to the site. Thank you for the consultation any questions please contact the wound care center DNP note has been reviewed and discussed with Dr. Lujan and the impression and plan of care has been directed as dictated. Past Medical History Past Medical History: Atrial Fibrillation, Coronary Artery Disease (CAD), CVA/TIA, Diabetes Mellitus, Deep Vein Thrombosis (DVT), Hypertension, Myocardial Infarction (VT), Osteoarthritis (OA) Additional Past Medical History / Comment(s): hx tia, hx stroke behind left eye., lt eye macular , states hospitalized with Covid April 2019 with life support and stage 3 kidney failure., hx of fall with hip fx and surgery 01/13/22 went to [facility] for Rehab. DVT during ., varicose veins, states painful sore left heel., hx of t.b. as a child with scarring on lungs. 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 clausterphobia. 1961 blood transfusion(during child ) pt stated had palpitations after 2nd unit given Past Psychological History: Anxiety Smoking Status: Never smoker Past Alcohol Use History: None Reported Past Drug Use History: None Reported - Past Family History Mother Family Medical History: Cancer Additional Family Medical History / Comment(s): lung cancer Father Family Medical History: Coronary Artery Disease (CAD) Additional Family Medical History / Comment(s): heart disease, kidney disese Medications and Allergies Home Medications Medication Instructions Recorded Confirmed Type Apixaban [Eliquis] 5 mg PO BID 08/13/20 05/20/24 History Sacubitril/Valsartan [Entresto 24 1 tab PO BID 01/12/22 05/20/24 History mg-26 mg Tablet] Omeprazole [PriLOSEC] 20 mg PO DAILY 03/05/22 05/20/24 History Ipratropium [place] [Atrovent Hfa] 2 puff INHALATION RT-QID 09/09/22 05/20/24 History ALPRAZolam [Xanax] 0.25 mg PO TID PRN 05/30/23 05/20/24 History Ammonium Lactate Lotion 1 applic TOPICAL BID PRN 05/30/23 05/20/24 History [Lac-Hydrin 12% Lotion] Aspirin 81 mg PO DAILY 05/30/23 05/20/24 History Atorvastatin [Lipitor] 20 mg PO DAILY 05/30/23 05/20/24 History Cholecalciferol [Vitamin D3 (25 25 mcg PO DAILY 05/30/23 05/20/24 History Mcg = 1000 Iu)] Escitalopram [Lexapro] 10 mg PO DAILY 05/30/23 05/20/24 History Furosemide [Lasix] 80 mg PO DAILY 05/30/23 05/20/24 History Insulin Glargine,Hum.rec.anlog 16 - 18 units SQ HS 05/30/23 05/20/24 History [Tourachelo Max Solostar] Insulin Glargine,Hum.rec.anlog 24 units SQ DAILY 05/30/23 05/20/24 History [Toujeo Max Solostar] Multivit-Min/FA/Lycopen/Lutein 1 tab PO DAILY 05/30/23 05/20/24 History [Centrum Silver Tablet] Potassium Chloride ER [K-Dur 20] 20 meq PO DAILY 05/30/23 05/20/24 History Albuterol Inhaler [Ventolin Hfa 2 puff INHALATION RT-QID PRN 01/09/24 05/20/24 History Inhaler] Ascorbic Acid [Vitamin C] 1,000 mg PO DAILY 01/09/24 05/20/24 History Vit C/E/Zn/Coppr/Lutein/Zeaxan 1 cap PO BID 01/09/24 05/20/24 History [Preservision Areds 2 Softgel] carvediloL [Coreg] 3.125 mg PO BID 01/09/24 05/20/24 History Magnesium Oxide [Mag-Ox] 400 mg PO DAILY #30 tab 01/16/24 05/20/24 Rx Nystatin 100,000Unit/gm Cream 1 applic TOPICAL BID #60 g 01/16/24 05/20/24 Rx [Mycostatin Cream] Sodium Bicarbonate Tab 650 mg PO BID #60 tab 01/16/24 05/20/24 Rx Torsemide [Demadex] 40 mg PO DAILY #30 tab 01/16/24 05/20/24 Rx Metoprolol Tartrate [Lopressor] 12.5 mg PO BID 01/30/24 05/20/24 History Menthol-Zinc Oxide Oint 1 applic TOPICAL DIRECTED 03/03/24 05/20/24 History [Calmoseptine Ointment] Periguard Ointment 1 applic TOPICAL DIRECTED 03/03/24 05/20/24 History Vits A and D/White Pet/Lanolin [A 1 applic TOPICAL DAILY PRN 03/03/24 05/20/24 History and D Ointment] traMADol HCL 50 mg PO TID PRN 05/20/24 05/20/24 History Allergies Allergy/AdvReac Type Severity Reaction Status Date / Time shellfish derived [Shellfish] Allergy Severe vomiting Verified 05/20/24 12:30 -very ill adhesive Allergy skin red Verified 05/20/24 12:30 and murguia, tears skin aluminum Allergy skin turns Verified 05/20/24 12:30 black, passes out Antihistamines - Allergy heart Verified 05/20/24 12:30 Ethylenediamine palpitations codeine Allergy migraines Verified 05/20/24 12:30 epinephrine Allergy heart Verified 05/20/24 12:30 palpitations fluticasone [From Flonase] Allergy Unknown Verified 05/20/24 12:30 hydrogen peroxide Allergy murguia and Verified 05/20/24 12:30 causes infection latex Allergy passes out Verified 05/20/24 12:30 nickel Allergy turns skin Verified 05/20/24 12:30 black and passes out procaine HCl [From Novocain] Allergy passed Verified 05/20/24 12:30 out- due to epinephrine in it. thiopental sodium Allergy needed cpr Verified 05/20/24 12:30 [From Pentothal] resusitation methocarbamol [From Robaxin] AdvReac Hallucinati Verified 05/20/24 12:30 ons zinc oxide AdvReac Rash/Hives Verified 05/20/24 12:30 surgical felciita Allergy Severe had to be Uncoded 05/20/24 12:30 removed 2 days post-op petroleum products AdvReac passes out Uncoded 05/20/24 12:30 or does not feel well. (diesel, oils) Physical Exam Vitals: Vital Signs Temp Pulse Pulse Resp BP BP Pulse Ox 05/25/24 07:00 70 16 97 05/25/24 06:00 59 L 12 95 05/25/24 05:00 58 L 18 101/44 96 05/25/24 04:00 64 18 92 L 05/25/24 03:00 57 L 12 96 05/25/24 02:00 68 18 95 05/25/24 01:00 68 14 112/47 96 05/25/24 00:00 97.9 F 62 20 96 05/24/24 23:00 73 13 96 05/24/24 22:00 66 18 98 05/24/24 21:00 65 18 131/58 97 05/24/24 20:00 63 16 128/53 100 05/24/24 19:00 59 L 16 92/56 99 05/24/24 18:00 66 11 L 99 05/24/24 17:00 56 L 13 92/56 99 05/24/24 16:00 98.1 F 54 L 17 100/38 99 05/24/24 15:00 51 L 9 L 94/37 97 05/24/24 14:00 52 L 12 98 05/24/24 13:00 54 L 16 109/51 97 05/24/24 12:56 99 F 56 L 14 101/47 05/24/24 12:00 66 10 L 96/65 97 05/24/24 11:00 53 L 18 94/39 99 05/24/24 10:00 51 L 22 101/44 98 Intake and Output 05/24/24 05/25/24 05/25/24 22:59 06:59 14:59 Output Total 60 60 Balance -60 -60 Output: Urine 60 60 Other: Voiding Method Indwelling Catheter Indwelling Catheter Weight 107.8 kg Results CBC & Chem 7: 05/25/24 08:41 05/24/24 06:33 Labs: Abnormal Lab Results - Last 24 Hours (Table) 05/24/24 05/24/24 05/25/24 Range/Units 10:56 19:52 06:11 RBC (3.80-5.40) m/uL Hgb (11.4-16.0) gm/dL Hct (34.0-46.0) % MCHC (31.0-37.0) g/dL RDW (11.5-15.5) % POC Glucose (mg/dL) 199 H 254 H 176 H (70-110) mg/dL 05/25/24 Range/Units 08:41 RBC 2.45 L (3.80-5.40) m/uL Hgb 7.0 L (11.4-16.0) gm/dL Hct 23.3 L (34.0-46.0) % MCHC 30.1 L (31.0-37.0) g/dL RDW 15.9 H (11.5-15.5) % POC Glucose (mg/dL) (70-110) mg/dL Assessment and Plan (1) Pressure injury of sacral region, stage 1 Current Visit: Yes Status: Acute Code(s): L89.151 - PRESSURE ULCER OF SACRAL REGION, STAGE 1 SNOMED Code(s): 78457759052586 (2) Excoriation of multiple sites of left lower extremity Current Visit: Yes Status: Acute Code(s): S80.812A - ABRASION, LEFT LOWER LEG, INITIAL ENCOUNTER SNOMED Code(s): 229962187 (3) Excoriation of multiple sites of right lower extremity Current Visit: Yes Status: Acute Code(s): S80.811A - ABRASION, RIGHT LOWER LEG, INITIAL ENCOUNTER SNOMED Code(s): 336817044
[2024-05-25 09:50] LABS: ALT 17 U/L (4-34); AST 29 U/L (14-36); African American GFR (CKD) 16 (>60 ml/min/1.73 sqM); Albumin 2.2 g/dL (3.5-5.0); Alkaline Phosphatase 85 U/L (38-126); Anion Gap 7 mmol/L; Blood Urea Nitrogen 28 mg/dL (7-17); Calcium 7.5 mg/dL (8.4-10.2); Carbon Dioxide 27 mmol/L (22-30); Chloride 93 mmol/L (98-107); Glucose 200 mg/dL (74-99); Non-African American GFR(CKD) 14 (>60 ml/min/1.73 sqM); Potassium 3.8 mmol/L (3.5-5.1); Sodium 127 mmol/L (137-145); Total Bilirubin 0.4 mg/dL (0.2-1.3); Total Protein 4.8 g/dL (6.3-8.2)
--- NOTE | 2024-05-25 10:20 | P.PN ---
Subjective Patient is seen for follow-up for acute kidney injury and chronic kidney disease. She has been started on dialysis on 05/21/2024. Tolerating treatment well. Urine output at 155 mL for 24 hours. No complaints of shortness of breath today. Scheduled for hemodialysis in a.m. Objective - Vital Signs Vital signs: Vital Signs Temp 97.9 F 05/25/24 00:00 Pulse 70 05/25/24 07:00 Resp 16 05/25/24 07:00 BP 101/44 05/25/24 05:00 Pulse Ox 97 05/25/24 07:00 FiO2 Intake & Output 05/24/24 05/25/24 05/25/24 18:59 06:59 18:59 Intake Total 700 Output Total 2935 120 Balance -2235 -120 Weight 107.8 kg Intake: Oral 200 Hemodialysis 500 Output: Urine 35 120 Hemodialysis 1700 Hemodialysis Net Amount 1200 Other: Voiding Method Indwelling Catheter Indwelling Catheter - Exam Patient is awake, comfortable, no acute distress. Examination of the heart S1 and S2 Examination of the lungs bilateral breath sounds are heard Abdomen is soft nontender Examination of lower extremities shows 2+ edema BELLHOP exam grossly intact - Labs CBC & Chem 7: 05/25/24 08:41 05/25/24 08:41 Labs: Abnormal Lab Results - Last 24 Hours (Table) 05/24/24 05/24/24 05/25/24 Range/Units 10:56 19:52 06:11 RBC (3.80-5.40) m/uL Hgb (11.4-16.0) gm/dL Hct (34.0-46.0) % MCHC (31.0-37.0) g/dL RDW (11.5-15.5) % Sodium (137-145) mmol/L Chloride (98-107) mmol/L BUN (7-17) mg/dL Creatinine (0.52-1.04) mg/dL Glucose (74-99) mg/dL POC Glucose (mg/dL) 199 H 254 H 176 H (70-110) mg/dL Calcium (8.4-10.2) mg/dL Total Protein (6.3-8.2) g/dL Albumin (3.5-5.0) g/dL 05/25/24 05/25/24 Range/Units 08:41 08:41 RBC 2.45 L (3.80-5.40) m/uL Hgb 7.0 L (11.4-16.0) gm/dL Hct 23.3 L (34.0-46.0) % MCHC 30.1 L (31.0-37.0) g/dL RDW 15.9 H (11.5-15.5) % Sodium 127 L (137-145) mmol/L Chloride 93 L (98-107) mmol/L BUN 28 H (7-17) mg/dL Creatinine 3.08 H (0.52-1.04) mg/dL Glucose 200 H (74-99) mg/dL POC Glucose (mg/dL) (70-110) mg/dL Calcium 7.5 L (8.4-10.2) mg/dL Total Protein 4.8 L (6.3-8.2) g/dL Albumin 2.2 L (3.5-5.0) g/dL Assessment and Plan Assessment: 1. Acute kidney injury secondary to ATN secondary to hepatorenal syndrome. Creatinine over 7 on admission. No hydronephrosis noted on imaging. Started hemodialysis on 05/21/2024 for worsening renal function and oliguria 2. Chronic kidney disease stage IIIb with baseline creatinine near 1.4 from January 2024. 3. Hyperkalemia secondary to acute kidney injury, metabolic acidosis, Entresto and potassium supplementation. Improved. 4. Metabolic acidosis secondary to acute kidney injury. Resolved. 5. Liver cirrhosis. 6. Diabetes mellitus. 7. Anemia of chronic kidney disease. Iron replete. On Aranesp. 8. Volume overload. Last paracentesis was May 20, 2024 with 3.5 L drained. Plan: July DC IV Lasix as no significant urine output noted. Continue midodrine Hemodialysis in a.m. Consult vascular surgery for IJ permacath placement
[2024-05-25 11:27] LABS: Glucose,Whole Blood 248 mg/dL (70-110)
[2024-05-25 11:38] VITALS: BMI 43.4
--- NOTE | 2024-05-25 11:46 | P.PN ---
Subjective Progress Note Date: 05/25/24 This is an 78-year-old female patient with a known history of diabetes mellitus, hypertension, congestive heart failure, hyperlipidemia, atrial fibrillation anticoagulated with Eliquis, anxiety/depression who was here today for an elective paracentesis that she has been requiring every 2 weeks for nonalcoholic liver failure. While in the department she developed dizziness and lightheadedness and had some lab work drawn. She was found to be severely hyperkalemic with a potassium of 8.6 and acute kidney injury with a BUN of 116 and a creatinine of 7.20. She was sent to the emergency room for further evaluation. Renal ultrasound revealed no evidence of hydronephrosis or masses bilaterally. EKG reveals sinus rhythm with a first-degree AV block and a left bundle branch block. Chest x-ray reveals cardiomegaly and low lung volumes without acute pulmonary infiltrate. Was treated with dextrose, calcium, regular insulin and sodium bicarbonate. He also received Lokelma. Follow-up labs reveal a sodium of 134. Potassium 7.9. Bicarb 13. BUN 114. Creatinine 7.03. Anion gap of 10. AST 31. ALT 17. Urinalysis is cloudy with large leukoesterase and high WBCs and rare bacteria. We are consulted as the patient is to be admitted to the intensive care unit. She is seen in the emergency dep artment. Currently sitting up on a stretcher. Awake and alert in no acute distress. Maintaining good O2 saturations in the high 90s on room air. She has been afebrile. Hemodynamically stable. She is on D5W with 3 A of bicarb at 75 mL/h. Patient was seen today on 05/21/2024, patient remains in the ICU, I saw this patient yesterday in consultation, and recommended ICU admission mostly because of her acute renal failure with hyperkalemia hypotension requiring placement on norepinephrine. Remains on norepinephrine at 0.02 mcg/kg/min remains on sodium bicarb drip at 75 cc/h patient had her hemodialysis today, she is on Eliquis, and she will have paracentesis done by interventional etiology later this afternoon. Pulmonary peterson the patient is doing well, no shortness of breath no cough no wheezing her WBC is 5.9 hemoglobin is 7.2 electrolytes are much better potassium is down to 5 bicarb is 23 BUN is 78 creatinine 4.71 chest x-ray on admission showed mostly cardiomegaly and low volumes there was no evidence of infiltrate and no evidence of pulmonary edema. Patient was seen by nephrology and felt to have hepatorenal syndrome with acute on chronic kidney injury. Renal ultrasound showed no evidence of hydronephrosis. Patient was seen today on 05/22/2024, patient is still requiring norepinephrine at 0.05 mcg/kg/min, she is undergoing hemodialysis today, she received Lasix earlier by nephrology, remains on Eliquis. Patient seems to be quite comfortable, she is on room air, does not seem to be in any distress. O2 saturation is 100%, I was considering transferring the patient out of the ICU today, however since she is on norepinephrine she needs to stay in the ICU for now. Patient was already placed on midodrine by nephrology. WBC count is 7.5 hemoglobin 7.4 electrolytes are normal BUN is 52 creatinine 3.90. Patient did undergo paracentesis yesterday by interventional radiology. Patient was seen today on 05/23/2024, remains in the ICU, mostly because she is still requiring a tiny dose of norepinephrine to maintain adequate blood pressure. Patient is on room air, not in any distress, continues to have fluid overload, and I am recommending today albumin followed by Lasix dose 40 mg IV push. Patient is on midodrine, and her blood pressure is extremely soft. WBC count is 7.5 hemoglobin 7.4 electrolytes showed low sodium of 127 BUN 31 creatinine 3.02 The patient is seen today May 24, 2024 in follow-up in the intensive care unit. She is currently awake and alert in no acute distress. Resting comfortably in bed. Maintaining O2 saturations in the 90s on room air. She is currently receiving hemodialysis with a goal of 1.2 L of fluid to be removed. Her blood pressure remains soft. She has been off the norepinephrine. She is on midodrine 10 mg 3 times daily. White count 8.0. Hemoglobin 7.7. Platelets 229. Sodium 127. Potassium 4.2. Bicarb 26. BUN 39. Creatinine 3.88. Glucose 132. Remains on IV Lasix 80 mg every 12 hours. Anticoagulate with Eliquis. The patient is seen today May 25, 2024 in follow-up in the intensive care unit. She is awake and alert in no acute distress. Sitting up in bed. Maintaining good O2 saturations in the 90s on room air. White count 7.6. Hemoglobin 7.0. Platelets 178. Sodium 127. Potassium 3.8. Bicarb 27. BUN 28. Creatinine 3.08. Glucose 200. IV Lasix was discontinued as no significant urine output noted. Continued on midodrine. Plan is for hemodialysis tomorrow. She is anticoagulated with Eliquis. Objective - Vital Signs Vital signs: Vital Signs Temp 97.9 F 05/25/24 08:00 Pulse 62 05/25/24 08:00 Resp 16 05/25/24 08:00 BP 107/42 05/25/24 08:00 Pulse Ox 98 05/25/24 08:00 FiO2 Intake & Output 05/24/24 05/25/24 05/25/24 18:59 06:59 18:59 Intake Total 700 10 Output Total 2935 120 Balance -2235 -120 10 Weight 107.8 kg 107.8 kg Intake: IV 10 Invasive Line 3 10 Oral 200 Hemodialysis 500 Output: Urine 35 120 Hemodialysis 1700 Hemodialysis Net Amount 1200 Other: Voiding Method Indwelling Catheter Indwelling Catheter - Exam GENERAL EXAM: A pleasant 78-year-old female, sitting up in bed, in no distress, on room air. HEAD: Normocephalic. Atraumatic EYES: Normal reaction of pupils, equal size. NOSE: Clear with pink turbinates. THROAT: No erythema or exudates. NECK: No masses, no JVD. CHEST: No chest wall deformity. LUNGS: Equal air entry with no crackles, wheeze, rhonchi or dullness. CVS: S1 and S2 normal with no audible murmur, regular rhythm. ABDOMEN: Abdominal distention with positive fluid wave. Positive ascites SKIN: Stage I pressure ulcer on the sacrum. Excoriations of the bilateral lower extremities. CENTRAL NERVOUS SYSTEM: No focal deficits, tone is normal in all 4 extremities. EXTREMITIES: There is 1-2+ peripheral edema. No clubbing, no cyanosis. Peripheral pulses are intact. - Labs CBC & Chem 7: 05/25/24 08:41 05/25/24 08:41 Labs: Abnormal Lab Results - Last 24 Hours (Table) 05/24/24 05/25/24 05/25/24 Range/Units 19:52 06:11 08:41 RBC 2.45 L (3.80-5.40) m/uL Hgb 7.0 L (11.4-16.0) gm/dL Hct 23.3 L (34.0-46.0) % MCHC 30.1 L (31.0-37.0) g/dL RDW 15.9 H (11.5-15.5) % Sodium (137-145) mmol/L Chloride (98-107) mmol/L BUN (7-17) mg/dL Creatinine (0.52-1.04) mg/dL Glucose (74-99) mg/dL POC Glucose (mg/dL) 254 H 176 H (70-110) mg/dL Calcium (8.4-10.2) mg/dL Total Protein (6.3-8.2) g/dL Albumin (3.5-5.0) g/dL 05/25/24 05/25/24 Range/Units 08:41 11:26 RBC (3.80-5.40) m/uL Hgb (11.4-16.0) gm/dL Hct (34.0-46.0) % MCHC (31.0-37.0) g/dL RDW (11.5-15.5) % Sodium 127 L (137-145) mmol/L Chloride 93 L (98-107) mmol/L BUN 28 H (7-17) mg/dL Creatinine 3.08 H (0.52-1.04) mg/dL Glucose 200 H (74-99) mg/dL POC Glucose (mg/dL) 248 H (70-110) mg/dL Calcium 7.5 L (8.4-10.2) mg/dL Total Protein 4.8 L (6.3-8.2) g/dL Albumin 2.2 L (3.5-5.0) g/dL Assessment and Plan Assessment: Acute kidney injury on top of chronic kidney disease stage IIIb. To acute tubular necrosis with acute hepatorenal syndrome. Renal ultrasound revealed no evidence of hydronephrosis or masses. Initiated on hemodialysis on 05/21/2024 Hyperkalemia secondary to above, improved Hyponatremia Metabolic acidosis Nonalcoholic liver failure requiring paracentesis nearly every 2 weeks. Last one was 05/06/2024 with 4.5 L removed Anemia, current hemoglobin 7.7 History of atrial fibrillation anticoagulated with Eliquis, currently in sinus mechanism Hypertension Hyperlipidemia History of congestive heart failure History of anxiety/depression Diabetes mellitus Lifelong non-smoker Stage I pressure ulcer on the sacrum Plan: The patient was seen and evaluated Labs and medications reviewed Currently stable and on room air Stable and off pressors Could transfer to the regular medical floor today I have personally seen and examined the patient, performed the documentation and the assessment and plan as written. Number of minutes spent on the visit: 10 Dictation was produced using [employer] dictation software. Please excuse any grammatical, word or spelling errors.
[2024-05-25 17:04] LABS: Glucose,Whole Blood 195 mg/dL (70-110)
[2024-05-25 19:49] LABS: Glucose,Whole Blood 270 mg/dL (70-110)
--- NOTE | 2024-05-25 22:00 | P.CONS ---
History of Present Illness - Reason for Consult Consult date: 05/25/24 Chronic wound bilateral lower extremity Requesting physician: Nadine Shearer - Chief Complaint Weakness lightheadedness x days - History of Present Illness Patient is a 78-year-old female with a past medical history significant for trial Fibrillation, Coronary Artery Disease (CAD), CVA/TIA, Diabetes Mellitus, Deep Vein Thrombosis (DVT), Hypertension, Myocardial Infarction ([place]), Osteoarthritis (OA) who routinely gets paracentesis noticed to have elevated BUN and creatinine and the patient was complaining of lightheadedness patient subsequently has been admitted to hospital for further workup and has been under care of pulmonary nephrology and vascular surgery patient did have a history of left heel infected pressure ulcer/osteomyelitis for the patient has completed course of antibiotic therapy infectious disease was consulted today for management of lower extremity wounds patient mention the wound to the left heel is currently healed however she is unable to tolerate the big boot to protect it did have occasional dull aching pain in the left heel area with no skin breakdown or any drainage patient noticed to have excoriation to the sacral and lower back area for the patient has been evaluated and started on zinc cream by the wound care currently do not have any any specific symptoms related to the back or the gluteal wound area patient denies having any chest pain or shortness with occasional cough some nausea and vomiting no abdominal pa in and no diarrhea Review of Systems Positive point and negatives has been mentioned in the HPI, complete review of systems was performed and all other systems are negative Past Medical History Past Medical History: Atrial Fibrillation, Coronary Artery Disease (CAD), CVA/TIA, Diabetes Mellitus, Deep Vein Thrombosis (DVT), Hypertension, Myocardial Infarction ([place]), Osteoarthritis (OA) Additional Past Medical History / Comment(s): hx tia, hx stroke behind left eye., lt eye macular , states hospitalized with Covid April 2019 with life support and stage 3 kidney failure., hx of fall with hip fx and surgery 01/13/22 went to [facility] for Rehab. DVT during ., varicose veins, states painful sore left heel., hx of t.b. as a child with scarring on lungs. 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 clausterphobia. 196 blood transfusion(during child ) pt stated had palpitations after 2nd unit given Past Psychological History: Anxiety Smoking Status: Never smoker Past Alcohol Use History: None Reported Past Drug Use History: None Reported - Past Family History Mother Family Medical History: Cancer Additional Family Medical History / Comment(s): lung cancer Father Family Medical History: Coronary Artery Disease (CAD) Additional Family Medical History / Comment(s): heart disease, kidney disese Medications and Allergies Home Medications Medication Instructions Recorded Confirmed Type Apixaban [Eliquis] 5 mg PO BID 08/13/20 05/20/24 History Sacubitril/Valsartan [Entresto 24 1 tab PO BID 01/12/22 05/20/24 History mg-26 mg Tablet] Omeprazole [PriLOSEC] 20 mg PO DAILY 03/05/22 05/20/24 History Ipratropium [place] [Atrovent Hfa] 2 puff INHALATION RT-QID 09/09/22 05/20/24 History ALPRAZolam [Xanax] 0.25 mg PO TID PRN 05/30/23 05/20/24 History Ammonium Lactate Lotion 1 applic TOPICAL BID PRN 05/30/23 05/20/24 History [Lac-Hydrin 12% Lotion] Aspirin 81 mg PO DAILY 05/30/23 05/20/24 History Atorvastatin [Lipitor] 20 mg PO DAILY 05/30/23 05/20/24 History Cholecalciferol [Vitamin D3 (25 25 mcg PO DAILY 05/30/23 05/20/24 History Mcg = 1000 Iu)] Escitalopram [Lexapro] 10 mg PO DAILY 05/30/23 05/20/24 History Furosemide [Lasix] 80 mg PO DAILY 05/30/23 05/20/24 History Insulin Glargine,Hum.rec.anlog 16 - 18 units SQ HS 05/30/23 05/20/24 History [Toujeo Max Solostar] Insulin Glargine,Hum.rec.anlog 24 units SQ DAILY 05/30/23 05/20/24 History [Toujeo Max Solostar] Multivit-Min/FA/Lycopen/Lutein 1 tab PO DAILY 05/30/23 05/20/24 History [Centrum Silver Tablet] Potassium Chloride ER [K-Dur 20] 20 meq PO DAILY 05/30/23 05/20/24 History Albuterol Inhaler [Ventolin Hfa 2 puff INHALATION RT-QID PRN 01/09/24 05/20/24 History Inhaler] Ascorbic Acid [Vitamin C] 1,000 mg PO DAILY 01/09/24 05/20/24 History Vit C/E/Zn/Coppr/Lutein/Zeaxan 1 cap PO BID 01/09/24 05/20/24 History [Preservision Areds 2 Softgel] carvediloL [Coreg] 3.125 mg PO BID 01/09/24 05/20/24 History Magnesium Oxide [Mag-Ox] 400 mg PO DAILY #30 tab 01/16/24 05/20/24 Rx Nystatin 100,000Unit/gm Cream 1 applic TOPICAL BID #60 g 01/16/24 05/20/24 Rx [Mycostatin Cream] Sodium Bicarbonate Tab 650 mg PO BID #60 tab 01/16/24 05/20/24 Rx Torsemide [Demadex] 40 mg PO DAILY #30 tab 01/16/24 05/20/24 Rx Metoprolol Tartrate [Lopressor] 12.5 mg PO BID 01/30/24 05/20/24 History Menthol-Zinc Oxide Oint 1 applic TOPICAL DIRECTED 03/03/24 05/20/24 History [Calmoseptine Ointment] Periguard Ointment 1 applic TOPICAL DIRECTED 03/03/24 05/20/24 History Vits A and D/White Pet/Lanolin [A 1 applic TOPICAL DAILY PRN 03/03/24 05/20/24 History and D Ointment] traMADol HCL 50 mg PO TID PRN 05/20/24 05/20/24 History Allergies Allergy/AdvReac Type Severity Reaction Status Date / Time shellfish derived [Shellfish] Allergy Severe vomiting Verified 05/20/24 12:30 -very ill adhesive Allergy skin red Verified 05/20/24 12:30 and murguia, tears skin aluminum Allergy skin turns Verified 05/20/24 12:30 black, passes out Antihistamines - Allergy heart Verified 05/20/24 12:30 Ethylenediamine palpitations codeine Allergy migraines Verified 05/20/24 12:30 epinephrine Allergy heart Verified 05/20/24 12:30 palpitations fluticasone [From Flonase] Allergy Unknown Verified 05/20/24 12:30 hydrogen peroxide Allergy murguia and Verified 05/20/24 12:30 causes infection latex Allergy passes out Verified 05/20/24 12:30 nickel Allergy turns skin Verified 05/20/24 12:30 black and passes out procaine HCl [From Novocain] Allergy passed Verified 05/20/24 12:30 out- due to epinephrine in it. thiopental sodium Allergy needed cpr Verified 05/20/24 12:30 [From Pentothal] resusitation methocarbamol [From Robaxin] AdvReac Hallucinati Verified 05/20/24 12:30 ons zinc oxide AdvReac Rash/Hives Verified 05/20/24 12:30 surgical felicita Allergy Severe had to be Uncoded 05/20/24 12:30 removed 2 days post-op petroleum products AdvReac passes out Uncoded 05/20/24 12:30 or does not feel well. (diesel, oils) Physical Exam Vitals: Vital Signs Temp Pulse Pulse Resp BP BP Pulse Ox 05/25/24 07:00 70 16 97 05/25/24 06:00 59 L 12 95 05/25/24 05:00 58 L 18 101/44 96 05/25/24 04:00 64 18 92 L 05/25/24 03:00 57 L 12 96 05/25/24 02:00 68 18 95 05/25/24 01:00 68 14 112/47 96 05/25/24 00:00 97.9 F 62 20 96 05/24/24 23:00 73 13 96 05/24/24 22:00 66 18 98 05/24/24 21:00 65 18 131/58 97 05/24/24 20:00 63 16 128/53 100 05/24/24 19:00 59 L 16 92/56 99 05/24/24 18:00 66 11 L 99 05/24/24 17:00 56 L 13 92/56 99 05/24/24 16:00 98.1 F 54 L 17 100/38 99 05/24/24 15:00 51 L 9 L 94/37 97 05/24/24 14:00 52 L 12 98 05/24/24 13:00 54 L 16 109/51 97 05/24/24 12:56 99 F 56 L 14 101/47 05/24/24 12:00 66 10 L 96/65 97 Intake and Output 05/24/24 05/25/24 05/25/24 22:59 06:59 14:59 Output Total 60 60 Balance -60 -60 Output: Urine 60 60 Other: Voiding Method Indwelling Catheter Indwelling Catheter Weight 107.8 kg GENERAL DESCRIPTION: Elderly female lying in bed, no distress. No tachypnea or accessory muscle of respiration use. HEENT: Shows Pallor , no scleral icterus. Oral mucous membrane is dry. NECK: Trachea central, no thyromegaly. LUNGS: Unlabored breathing. Clear to auscultation anteriorly. No wheeze or crackle. HEART: S1, S2, regular rate and rhythm. No loud murmur ABDOMEN: Soft, no tenderness , guarding or rigidity, no organomegaly EXTREMITIES: Left heel wound is currently healed with no swelling redness or any drainage SKIN: Did have significant excoriation to the lower back and sacral area but no foul-smelling drainage. NEUROLOGICAL: The patient is awake, alert, oriented x3, mood and affect normal. Results CBC & Chem 7: 05/25/24 08:41 05/25/24 08:41 Labs: Abnormal Lab Results - Last 24 Hours (Table) 05/24/24 05/25/24 05/25/24 Range/Units 19:52 06:11 08:41 RBC 2.45 L (3.80-5.40) m/uL Hgb 7.0 L (11.4-16.0) gm/dL Hct 23.3 L (34.0-46.0) % MCHC 30.1 L (31.0-37.0) g/dL RDW 15.9 H (11.5-15.5) % Sodium (137-145) mmol/L Chloride (98-107) mmol/L BUN (7-17) mg/dL Creatinine (0.52-1.04) mg/dL Glucose (74-99) mg/dL POC Glucose (mg/dL) 254 H 176 H (70-110) mg/dL Calcium (8.4-10.2) mg/dL Total Protein (6.3-8.2) g/dL Albumin (3.5-5.0) g/dL 05/25/24 Range/Units 08:41 RBC (3.80-5.40) m/uL Hgb (11.4-16.0) gm/dL Hct (34.0-46.0) % MCHC (31.0-37.0) g/dL RDW (11.5-15.5) % Sodium 127 L (137-145) mmol/L Chloride 93 L (98-107) mmol/L BUN 28 H (7-17) mg/dL Creatinine 3.08 H (0.52-1.04) mg/dL Glucose 200 H (74-99) mg/dL POC Glucose (mg/dL) (70-110) mg/dL Calcium 7.5 L (8.4-10.2) mg/dL Total Protein 4.8 L (6.3-8.2) g/dL Albumin 2.2 L (3.5-5.0) g/dL Assessment and Plan (1) Excoriation of back Current Visit: Yes Status: Acute Code(s): S20.419A - ABRASION OF UNSPECIFIED BACK WALL OF THORAX, INIT ENCNTR SNOMED Code(s): 49698218 (2) Excoriation of buttock Current Visit: Yes Status: Acute Code(s): S30.810A - ABRASION OF LOWER BACK AND PELVIS, INITIAL ENCOUNTER SNOMED Code(s): 215647234 (3) Type 2 diabetes mellitus with other skin ulcer Current Visit: No Status: Acute Code(s): E11.622 - TYPE 2 DIABETES MELLITUS WITH OTHER SKIN ULCER; L98.499 - NON-PRESSURE CHRONIC ULCER OF SKIN OF SITES W UNSP SEVERITY SNOMED Code(s): 395265835899429 Plan: 1-patient did have a history of left heel osteomyelitis for the patient has completed her antibiotic therapy currently do not have any open wound some indentation but no evidence of any skin breakdown recommended local care with keeping the area of the pressure and dry 2-patient did have significant excoriation of the sacral and the back area for the patient started on zinc cream if no improvement will recommend Mycolog cream and keeping it dry of the pressure 3-no need for systemic antibiotic therapy at this point. We will follow on clinical condition and cultures to further adjust medication if needed Thank you for this consultation we will follow the patient along with you Dictation was produced using [employer] dictation software. please excuse any grammatical, word or spelling errors. Time with Patient: Greater than 30
[2024-05-26 05:51] LABS: HCT 24.3 % (34.0-46.0); HGB 7.5 gm/dL (11.4-16.0); Hypochromasia Moderate; MCH 28.4 pg (25.0-35.0); MCHC 31.1 g/dL (31.0-37.0); MCV 91.3 fL (80.0-100.0); Mean Platelet Volume 7.7; Platelet Count 209 k/uL (150-450); RBC 2.66 m/uL (3.80-5.40); RDW 15.7 % (11.5-15.5); WBC 7.9 k/uL (3.8-10.6)
[2024-05-26 05:59] LABS: ALT 18 U/L (4-34); AST 29 U/L (14-36); African American GFR (CKD) 13 (>60 ml/min/1.73 sqM); Albumin 2.4 g/dL (3.5-5.0); Albumin/Globulin Ratio 0.9; Alkaline Phosphatase 94 U/L (38-126); Anion Gap 7 mmol/L; Blood Urea Nitrogen 34 mg/dL (7-17); Calcium 7.8 mg/dL (8.4-10.2); Carbon Dioxide 26 mmol/L (22-30); Chloride 93 mmol/L (98-107); Globulin 2.8 g/dL; Glucose 117 mg/dL (74-99); Non-African American GFR(CKD) 11 (>60 ml/min/1.73 sqM); Sodium 126 mmol/L (137-145); Total Bilirubin 0.5 mg/dL (0.2-1.3); Total Protein 5.2 g/dL (6.3-8.2)
[2024-05-26 07:12] LABS: Glucose,Whole Blood 129 mg/dL (70-110)
--- NOTE | 2024-05-26 08:53 | P.PN ---
Subjective Progress Note Date: 05/26/24 Principal diagnosis: acute on chronic renal failure. this is an 78-year-old white female who is admitted secondary to renal failure. She is now on dialysis. Parenting catheter is being placed due to the nature of her treatment. Appreciate multiple consultants input. Infectious diseases evaluated for possible wound. No systemic antibiotic therapy at this time. No new voiding difficulty stated. Objective - Vital Signs Vital signs: Vital Signs Temp 97.3 F L 05/26/24 07:13 Pulse 59 L 05/26/24 07:13 Resp 18 05/26/24 07:13 BP 127/65 05/26/24 07:13 Pulse Ox 97 05/26/24 07:13 FiO2 Intake & Output 05/25/24 05/26/24 05/26/24 18:59 06:59 18:59 Intake Total 590 10 Output Total 20 250 291 Balance 570 -240 -291 Weight 107.8 kg Intake: IV 50 10 Invasive Line 3 30 10 Invasive Line 7 20 Oral 540 Output: Urine 20 250 Post Void Residual 291 Other: Voiding Method Indwelling Catheter External Catheter # Bowel Movements 1 0 - Constitutional General appearance: Present: cooperative, no acute distress - EENT Eyes: Absent: abnormal pupil - Neck Neck: Absent: lymphadenopathy - Respiratory Respiratory: bilateral: diminished - Cardiovascular Rhythm: irregularly irregular Heart sounds: normal: S1, S2 Abnormal Heart Sounds: Absent: S3 Gallop - Gastrointestinal General gastrointestinal: Present: soft. Absent: tenderness Localized gastrointestinal: mass: RUQ - Psychiatric Psychiatric: Present: A&O x's 3, appropriate affect - Labs CBC & Chem 7: 05/26/24 05:27 05/26/24 05:27 Labs: Abnormal Lab Results - Last 24 Hours (Table) 05/25/24 05/25/24 05/25/24 Range/Units 08:41 08:41 11:26 RBC 2.45 L (3.80-5.40) m/uL Hgb 7.0 L (11.4-16.0) gm/dL Hct 23.3 L (34.0-46.0) % MCHC 30.1 L (31.0-37.0) g/dL RDW 15.9 H (11.5-15.5) % Sodium 127 L (137-145) mmol/L Chloride 93 L (98-107) mmol/L BUN 28 H (7-17) mg/dL Creatinine 3.08 H (0.52-1.04) mg/dL Glucose 200 H (74-99) mg/dL POC Glucose (mg/dL) 248 H (70-110) mg/dL Calcium 7.5 L (8.4-10.2) mg/dL Total Protein 4.8 L (6.3-8.2) g/dL Albumin 2.2 L (3.5-5.0) g/dL 05/25/24 05/25/24 05/26/24 Range/Units 17:03 19:42 05:27 RBC 2.66 L (3.80-5.40) m/uL Hgb 7.5 L (11.4-16.0) gm/dL Hct 24.3 L (34.0-46.0) % MCHC (31.0-37.0) g/dL RDW 15.7 H (11.5-15.5) % Sodium (137-145) mmol/L Chloride (98-107) mmol/L BUN (7-17) mg/dL Creatinine (0.52-1.04) mg/dL Glucose (74-99) mg/dL POC Glucose (mg/dL) 195 H 270 H (70-110) mg/dL Calcium (8.4-10.2) mg/dL Total Protein (6.3-8.2) g/dL Albumin (3.5-5.0) g/dL 05/26/24 05/26/24 Range/Units 05:27 07:11 RBC (3.80-5.40) m/uL Hgb (11.4-16.0) gm/dL Hct (34.0-46.0) % MCHC (31.0-37.0) g/dL RDW (11.5-15.5) % Sodium 126 L (137-145) mmol/L Chloride 93 L (98-107) mmol/L BUN 34 H (7-17) mg/dL Creatinine 3.65 H (0.52-1.04) mg/dL Glucose 117 H (74-99) mg/dL POC Glucose (mg/dL) 129 H (70-110) mg/dL Calcium 7.8 L (8.4-10.2) mg/dL Total Protein 5.2 L (6.3-8.2) g/dL Albumin 2.4 L (3.5-5.0) g/dL Assessment and Plan (1) Acute kidney injury Current Visit: Yes Status: Acute Code(s): N17.9 - ACUTE KIDNEY FAILURE, UNSPECIFIED SNOMED Code(s): 24726168 (2) CKD (chronic kidney disease) Current Visit: Yes Status: Acute Code(s): N18.9 - CHRONIC KIDNEY DISEASE, UNSPECIFIED SNOMED Code(s): 488031817 (3) Hyperkalemia Current Visit: Yes Status: Acute Code(s): E87.5 - HYPERKALEMIA SNOMED Code(s): 93922876 (4) Ascites Current Visit: No Status: Acute Code(s): R18.8 - OTHER ASCITES SNOMED Code(s): 432745598 (5) Atrial fibrillation Current Visit: No Status: Acute Code(s): I48.91 - UNSPECIFIED ATRIAL FIBRILLATION SNOMED Code(s): 14675728 (6) Diabetes Current Visit: No Status: Acute Code(s): E11.9 - TYPE 2 DIABETES MELLITUS WITHOUT COMPLICATIONS SNOMED Code(s): 31992926 (7) Hypotension Current Visit: No Status: Acute Code(s): I95.9 - HYPOTENSION, UNSPECIFIED SNOMED Code(s): 33923681 Plan: continue supportive care. Watch vitals closely. check CBC and CMP in a.m. Appreciate multiple consultants input.
--- NOTE | 2024-05-26 12:12 | P.PN ---
Subjective Progress Note Date: 05/26/24 Principal diagnosis: Reason for follow-up is lower extremity wound and back/sacral area excoriation 05/26/2024,the patient denies any fever or any chills, patient is breathing com fortably on room air, the patient denies chest pain shortness of breath and no significant cough, patient denies abdominal pain, no nausea vomiting or diarrhea, admitted to hospital with worsening kidney function has been started on dialysis ID consulted for lower extremity wound. On today's evaluation that is 05/26/2024,the patient denies any fever or any chills, patient is breathing comfortably on room air, the patient denies chest pain shortness of breath and no significant cough, patient denies abdominal pain, no nausea vomiting or diarrhea. Patient white count 7.9, creatinine is 3.65 Objective - Vital Signs Vital signs: Vital Signs Temp 97.3 F L 05/26/24 07:13 Pulse 59 L 05/26/24 07:13 Resp 18 05/26/24 07:13 BP 127/65 05/26/24 07:13 Pulse Ox 97 05/26/24 07:13 FiO2 Intake & Output 05/25/24 05/26/24 05/26/24 18:59 06:59 18:59 Intake Total 590 10 Output Total 20 250 291 Balance 570 -240 -291 Weight 107.8 kg Intake: IV 50 10 Invasive Line 3 30 10 Invasive Line 7 20 Oral 540 Output: Urine 20 250 Post Void Residual 291 Other: Voiding Method Indwelling Catheter External Catheter # Bowel Movements 1 0 - Exam GENERAL DESCRIPTION: An elderly female lying in bed in no distress RESPIRATORY SYSTEM: Unlabored breathing , decreased breath sounds at bases HEART: S1 S2 regular rate and rhythm , ABDOMEN: Soft , no tenderness EXTREMITIES: No edema feet - Labs CBC & Chem 7: 05/26/24 05:27 05/26/24 05:27 Labs: Abnormal Lab Results - Last 24 Hours (Table) 05/25/24 05/25/24 05/26/24 Range/Units 17:03 19:42 05:27 RBC 2.66 L (3.80-5.40) m/uL Hgb 7.5 L (11.4-16.0) gm/dL Hct 24.3 L (34.0-46.0) % RDW 15.7 H (11.5-15.5) % Sodium (137-145) mmol/L Chloride (98-107) mmol/L BUN (7-17) mg/dL Creatinine (0.52-1.04) mg/dL Glucose (74-99) mg/dL POC Glucose (mg/dL) 195 H 270 H (70-110) mg/dL Calcium (8.4-10.2) mg/dL Total Protein (6.3-8.2) g/dL Albumin (3.5-5.0) g/dL 05/26/24 05/26/24 Range/Units 05:27 07:11 RBC (3.80-5.40) m/uL Hgb (11.4-16.0) gm/dL Hct (34.0-46.0) % RDW (11.5-15.5) % Sodium 126 L (137-145) mmol/L Chloride 93 L (98-107) mmol/L BUN 34 H (7-17) mg/dL Creatinine 3.65 H (0.52-1.04) mg/dL Glucose 117 H (74-99) mg/dL POC Glucose (mg/dL) 129 H (70-110) mg/dL Calcium 7.8 L (8.4-10.2) mg/dL Total Protein 5.2 L (6.3-8.2) g/dL Albumin 2.4 L (3.5-5.0) g/dL Assessment and Plan (1) Excoriation of back Current Visit: Yes Status: Acute Code(s): S20.419A - ABRASION OF UNSPECIFIED BACK WALL OF THORAX, INIT ENCNTR SNOMED Code(s): 34419041 (2) Excoriation of buttock Current Visit: Yes Status: Acute Code(s): S30.810A - ABRASION OF LOWER BACK AND PELVIS, INITIAL ENCOUNTER SNOMED Code(s): 673948899 (3) Type 2 diabetes mellitus with other skin ulcer Current Visit: No Status: Acute Code(s): E11.622 - TYPE 2 DIABETES MELLITUS WITH OTHER SKIN ULCER; L98.499 - NON-PRESSURE CHRONIC ULCER OF SKIN OF SITES W UNSP SEVERITY SNOMED Code(s): 740322416495297 Plan: 1-patient did have a history of left heel osteomyelitis for the patient has completed her antibiotic therapy currently do not have any open wound some indentation but no evidence of any skin breakdown recommended local care with keeping the area of the pressure and dry 2-patient did have significant excoriation of the sacral and the back area for the patient is currently be treated with local treatment no need for systemic antibiotic therapy at this point Dictation was produced using [employer] software. please excuse any grammatical, word or spelling errors. Time with Patient: Less than 30
--- NOTE | 2024-05-26 12:13 | P.PN ---
Subjective Progress Note Date: 05/26/24 This is an 78-year-old female patient with a known history of diabetes mellitus, hypertension, congestive heart failure, hyperlipidemia, atrial fibrillation anticoagulated with Eliquis, anxiety/depression who was here today for an elective paracentesis that she has been requiring every 2 weeks for nonalcoholic liver failure. While in the department she developed dizziness and lightheadedness and had some lab work drawn. She was found to be severely hyperkalemic with a potassium of 8.6 and acute kidney injury with a BUN of 116 and a creatinine of 7.20. She was sent to the emergency room for further evaluation. Renal ultrasound revealed no evidence of hydronephrosis or masses bilaterally. EKG reveals sinus rhythm with a first-degree AV block and a left bundle branch block. Chest x-ray reveals cardiomegaly and low lung volumes without acute pulmonary infiltrate. Was treated with dextrose, calcium, regular insulin and sodium bicarbonate. He also received Lokelma. Follow-up labs reveal a sodium of 134. Potassium 7.9. Bicarb 13. BUN 114. Creatinine 7.03. Anion gap of 10. AST 31. ALT 17. Urinalysis is cloudy with large leukoesterase and high WBCs and rare bacteria. We are consulted as the patient is to be admitted to the intensive care unit. She is seen in the emergency dep artment. Currently sitting up on a stretcher. Awake and alert in no acute distress. Maintaining good O2 saturations in the high 90s on room air. She has been afebrile. Hemodynamically stable. She is on D5W with 3 A of bicarb at 75 mL/h. Patient was seen today on 05/21/2024, patient remains in the ICU, I saw this patient yesterday in consultation, and recommended ICU admission mostly because of her acute renal failure with hyperkalemia hypotension requiring placement on norepinephrine. Remains on norepinephrine at 0.02 mcg/kg/min remains on sodium bicarb drip at 75 cc/h patient had her hemodialysis today, she is on Eliquis, and she will have paracentesis done by interventional etiology later this afternoon. Pulmonary peterson the patient is doing well, no shortness of breath no cough no wheezing her WBC is 5.9 hemoglobin is 7.2 electrolytes are much better potassium is down to 5 bicarb is 23 BUN is 78 creatinine 4.71 chest x-ray on admission showed mostly cardiomegaly and low volumes there was no evidence of infiltrate and no evidence of pulmonary edema. Patient was seen by nephrology and felt to have hepatorenal syndrome with acute on chronic kidney injury. Renal ultrasound showed no evidence of hydronephrosis. Patient was seen today on 05/22/2024, patient is still requiring norepinephrine at 0.05 mcg/kg/min, she is undergoing hemodialysis today, she received Lasix earlier by nephrology, remains on Eliquis. Patient seems to be quite comfortable, she is on room air, does not seem to be in any distress. O2 saturation is 100%, I was considering transferring the patient out of the ICU today, however since she is on norepinephrine she needs to stay in the ICU for now. Patient was already placed on midodrine by nephrology. WBC count is 7.5 hemoglobin 7.4 electrolytes are normal BUN is 52 creatinine 3.90. Patient did undergo paracentesis yesterday by interventional radiology. Patient was seen today on 05/23/2024, remains in the ICU, mostly because she is still requiring a tiny dose of norepinephrine to maintain adequate blood pressure. Patient is on room air, not in any distress, continues to have fluid overload, and I am recommending today albumin followed by Lasix dose 40 mg IV push. Patient is on midodrine, and her blood pressure is extremely soft. WBC count is 7.5 hemoglobin 7.4 electrolytes showed low sodium of 127 BUN 31 creatinine 3.02 The patient is seen today May 24, 2024 in follow-up in the intensive care unit. She is currently awake and alert in no acute distress. Resting comfortably in bed. Maintaining O2 saturations in the 90s on room air. She is currently receiving hemodialysis with a goal of 1.2 L of fluid to be removed. Her blood pressure remains soft. She has been off the norepinephrine. She is on midodrine 10 mg 3 times daily. White count 8.0. Hemoglobin 7.7. Platelets 229. Sodium 127. Potassium 4.2. Bicarb 26. BUN 39. Creatinine 3.88. Glucose 132. Remains on IV Lasix 80 mg every 12 hours. Anticoagulate with Eliquis. The patient is seen today May 25, 2024 in follow-up in the intensive care unit. She is awake and alert in no acute distress. Sitting up in bed. Maintaining good O2 saturations in the 90s on room air. White count 7.6. Hemoglobin 7.0. Platelets 178. Sodium 127. Potassium 3.8. Bicarb 27. BUN 28. Creatinine 3.08. Glucose 200. IV Lasix was discontinued as no significant urine output noted. Continued on midodrine. Plan is for hemodialysis tomorrow. She is anticoagulated with Eliquis. The patient is seen today May 26, 2024 in follow-up on the regular medical floor. She is awake and alert in no acute distress. Sitting up in bed. Maintaining good O2 saturations in the 90s on room air. White count 7.9. Hemoglobin 7.5. Platelets 209. Sodium 126. Potassium 4.0. Bicarb 26. BUN 34. Creatinine 3.65. Glucose 117. She is receiving hemodialysis today with a goal of 2.5 L to be removed. She is continued on midodrine for pressure support. Anticoagulated with Eliquis. She is making some urine. Objective - Vital Signs Vital signs: Vital Signs Temp 97.3 F L 05/26/24 07:13 Pulse 59 L 05/26/24 07:13 Resp 18 05/26/24 07:13 BP 127/65 05/26/24 07:13 Pulse Ox 97 05/26/24 07:13 FiO2 Intake & Output 05/25/24 05/26/24 05/26/24 18:59 06:59 18:59 Intake Total 590 10 Output Total 20 250 291 Balance 570 -240 -291 Weight 107.8 kg Intake: IV 50 10 Invasive Line 3 30 10 Invasive Line 7 20 Oral 540 Output: Urine 20 250 Post Void Residual 291 Other: Voiding Method Indwelling Catheter External Catheter # Bowel Movements 1 0 - Exam GENERAL EXAM: Awake, alert, very pleasant 78-year-old female, sitting up in bed, on room air. HEAD: Normocephalic. Atraumatic EYES: Normal reaction of pupils, equal size. NOSE: Clear with pink turbinates. THROAT: No erythema or exudates. NECK: No masses, no JVD. CHEST: No chest wall deformity. LUNGS: Equal air entry with no crackles, wheeze, rhonchi or dullness. CVS: S1 and S2 normal with no audible murmur, regular rhythm. ABDOMEN: Abdominal distention with positive fluid wave. Positive ascites SKIN: Stage I pressure ulcer on the sacrum. Excoriations of the bilateral lower extremities. CENTRAL NERVOUS SYSTEM: No focal deficits, tone is normal in all 4 extremities. EXTREMITIES: Left femoral hemodialysis catheter in place. There is 1-2+ peripheral edema. No clubbing, no cyanosis. Peripheral pulses are intact. - Labs CBC & Chem 7: 05/26/24 05:27 05/26/24 05:27 Labs: Abnormal Lab Results - Last 24 Hours (Table) 05/25/24 05/25/24 05/26/24 Range/Units 17:03 19:42 05:27 RBC 2.66 L (3.80-5.40) m/uL Hgb 7.5 L (11.4-16.0) gm/dL Hct 24.3 L (34.0-46.0) % RDW 15.7 H (11.5-15.5) % Sodium (137-145) mmol/L Chloride (98-107) mmol/L BUN (7-17) mg/dL Creatinine (0.52-1.04) mg/dL Glucose (74-99) mg/dL POC Glucose (mg/dL) 195 H 270 H (70-110) mg/dL Calcium (8.4-10.2) mg/dL Total Protein (6.3-8.2) g/dL Albumin (3.5-5.0) g/dL 05/26/24 05/26/24 Range/Units 05:27 07:11 RBC (3.80-5.40) m/uL Hgb (11.4-16.0) gm/dL Hct (34.0-46.0) % RDW (11.5-15.5) % Sodium 126 L (137-145) mmol/L Chloride 93 L (98-107) mmol/L BUN 34 H (7-17) mg/dL Creatinine 3.65 H (0.52-1.04) mg/dL Glucose 117 H (74-99) mg/dL POC Glucose (mg/dL) 129 H (70-110) mg/dL Calcium 7.8 L (8.4-10.2) mg/dL Total Protein 5.2 L (6.3-8.2) g/dL Albumin 2.4 L (3.5-5.0) g/dL Assessment and Plan Assessment: Acute kidney injury on top of chronic kidney disease stage IIIb. To acute tubular necrosis with acute hepatorenal syndrome. Renal ultrasound revealed no evidence of hydronephrosis or masses. Initiated on hemodialysis on 05/21/2024 Hyperkalemia secondary to above, improved Hyponatremia Metabolic acidosis Nonalcoholic liver failure requiring paracentesis nearly every 2 weeks. 3.6 L removed on 05/21/2024 Anemia, current hemoglobin 7.5 History of atrial fibrillation anticoagulated with Eliquis, currently in sinus mechanism Hypertension Hyperlipidemia History of congestive heart failure History of anxiety/depression Diabetes mellitus Lifelong non-smoker Stage I pressure ulcer on the sacrum Plan: The patient was seen and evaluated Labs and medications reviewed Currently stable and on room air Receiving hemodialysis today Lasix discontinued per nephrology Awaiting IJ permacath placement with vascular surgery This patient was seen independently by the pulmonary nurse practitioner addressing pulmonary/critical care issues I have personally seen and examined the patient, performed the documentation and the assessment and plan as written. Number of minutes spent on the visit: 24 Dictation was produced using [employer] dictation software. Please excuse any grammatical, word or spelling errors.
[2024-05-26 12:16] LABS: Glucose,Whole Blood 111 mg/dL (70-110)
--- NOTE | 2024-05-26 12:53 | P.PN ---
Subjective Patient is seen for follow-up for acute kidney injury and chronic kidney disease. She has been started on dialysis on 05/21/2024. Tolerating treatment well. Seen on hemodialysis. Urine output may have improved. No complaints of shortness of breath today. Objective - Vital Signs Vital signs: Vital Signs Temp 97.3 F L 05/26/24 07:13 Pulse 59 L 05/26/24 07:13 Resp 18 05/26/24 07:13 BP 127/65 05/26/24 07:13 Pulse Ox 97 05/26/24 07:13 FiO2 Intake & Output 05/25/24 05/26/24 05/26/24 18:59 06:59 18:59 Intake Total 590 10 Output Total 20 250 291 Balance 570 -240 -291 Weight 107.8 kg Intake: IV 50 10 Invasive Line 3 30 10 Invasive Line 7 20 Oral 540 Output: Urine 20 250 Post Void Residual 291 Other: Voiding Method Indwelling Catheter External Catheter # Bowel Movements 1 0 - Exam Patient is awake, comfortable, no acute distress. Examination of the heart S1 and S2 Examination of the lungs bilateral breath sounds are heard Abdomen is soft nontender Examination of lower extremities shows 2+ edema TECHNICAL PROFESSIONAL exam grossly intact - Labs CBC & Chem 7: 05/26/24 05:27 05/26/24 05:27 Labs: Abnormal Lab Results - Last 24 Hours (Table) 05/25/24 05/25/24 05/26/24 Range/Units 17:03 19:42 05:27 RBC 2.66 L (3.80-5.40) m/uL Hgb 7.5 L (11.4-16.0) gm/dL Hct 24.3 L (34.0-46.0) % RDW 15.7 H (11.5-15.5) % Sodium (137-145) mmol/L Chloride (98-107) mmol/L BUN (7-17) mg/dL Creatinine (0.52-1.04) mg/dL Glucose (74-99) mg/dL POC Glucose (mg/dL) 195 H 270 H (70-110) mg/dL Calcium (8.4-10.2) mg/dL Total Protein (6.3-8.2) g/dL Albumin (3.5-5.0) g/dL 05/26/24 05/26/24 05/26/24 Range/Units 05:27 07:11 12:16 RBC (3.80-5.40) m/uL Hgb (11.4-16.0) gm/dL Hct (34.0-46.0) % RDW (11.5-15.5) % Sodium 126 L (137-145) mmol/L Chloride 93 L (98-107) mmol/L BUN 34 H (7-17) mg/dL Creatinine 3.65 H (0.52-1.04) mg/dL Glucose 117 H (74-99) mg/dL POC Glucose (mg/dL) 129 H 111 H (70-110) mg/dL Calcium 7.8 L (8.4-10.2) mg/dL Total Protein 5.2 L (6.3-8.2) g/dL Albumin 2.4 L (3.5-5.0) g/dL Assessment and Plan Assessment: 1. Acute kidney injury secondary to ATN secondary to hepatorenal syndrome. Creatinine over 7 on admission. No hydronephrosis noted on imaging. Started hemodialysis on 05/21/2024 for worsening renal function and oliguria 2. Chronic kidney disease stage IIIb with baseline creatinine near 1.4 from January 2024. 3. Hyperkalemia secondary to acute kidney injury, metabolic acidosis, Entresto and potassium supplementation. Improved. 4. Metabolic acidosis secondary to acute kidney injury. Resolved. 5. Liver cirrhosis. 6. Diabetes mellitus. 7. Anemia of chronic kidney disease. Iron replete. On Aranesp. 8. Volume overload. Last paracentesis was May 20, 2024 with 3.5 L drained. Plan: Continue midodrine Continue hemodialysis post discharge and continue to monitor for recovery of r enal function.
[2024-05-26 17:06] LABS: Glucose,Whole Blood 165 mg/dL (70-110)
[2024-05-26 20:44] LABS: Glucose,Whole Blood 167 mg/dL (70-110)
[2024-05-27] MEDS: MIDAZOLAM 2 MG/2 ML VIAL IVP ONE (07:27)
[2024-05-27] MEDS: fentaNYL (PF) 50 MCG/1 ML VIAL IVP ONE (07:28)
[2024-05-27] MEDS: LIDOCAINE 1% INJ 10MG/ML (30 ML VIAL-PF) SQ ONE (07:29)
--- NOTE | 2024-05-27 08:16 | IR ---
EXAMINATION TYPE: IR cvc insert central tunneled Intraoperative/procedural fluoroscopic services were provided. CLINICAL INDICATION:Female, 78 years old with history of Dialysis, 1.2m/1.6403, 14.5F x 19cm rt IJ di alysis catheter; , PHH FINDINGS: Fluoroscopic images demonstrating a dual-lumen right IJ dialysis catheter with tip in the region of t he superior cavoatrial junction. No radiographic evidence for complication. Total fluoroscopy time is 1.2 min. DAP: 1.6403 Gycm2 uGym2 mGym2 Please see the operative/procedural note for further details. [facility], , 05/27/2024 8:14 AM
[2024-05-27 08:28] LABS: Glucose,Whole Blood 102 mg/dL (70-110)
--- NOTE | 2024-05-27 08:39 | P.PN ---
Subjective Progress Note Date: 05/27/24 This is an 86-year-old female who was undergoing an outpatient paracentesis when she felt dizzy and lightheaded and was found to be hyperkalemic. Patient also found to have an acute kidney injury with a BUN of 116 and creatinine of 7.20 on admission. Patient had a hemodialysis catheter placed by vascular surgery and has been getting hemodialysis. Patient seen this morning resting comfortably in bed with hemodiaysis running. Her kidney function is slowly improving. 05/25/2024 Patient seen and evaluated sitting up in bed this morning. She did have hemodialysis yesterday. Blood pressure has been stable. Labs are not back from today at time of dictation. Patient concerned for chronic wounds on her bilateral lower extremities. 05/27/2024 Patient seen this morning laying in bed resting comfortably. She just had a new dialysis catheter placed. Patient reports she is feeling well today. Objective - Vital Signs Vital signs: Vital Signs Temp 98.7 F 05/27/24 01:40 Pulse 100 05/27/24 01:40 Resp 18 05/27/24 01:40 BP 104/57 05/27/24 01:40 Pulse Ox 100 05/27/24 01:40 FiO2 Intake & Output 05/26/24 05/27/24 05/27/24 18:59 06:59 18:59 Intake Total 4020 240 Output Total 2766 Balance 1254 240 Intake: Oral 1620 240 Hemodialysis 2400 Output: Urine 75 Post Void Residual 291 Hemodialysis 400 Hemodialysis Net Amount 2000 Other: Voiding Method External Catheter # Bowel Movements 1 - Constitutional General appearance: Present: cooperative, no acute distress - EENT Eyes: Present: PERRLA - Neck Neck: Present: normal ROM. Absent: lymphadenopathy, rigidity - Respiratory Respiratory: bilateral: diminished - Cardiovascular Heart sounds: normal: S1, S2 - Gastrointestinal General gastrointestinal: Present: soft. Absent: tenderness - Integumentary Integumentary: Present: normal, normal turgor - Musculoskeletal Musculoskeletal: Present: generalized weakness - Psychiatric Psychiatric: Present: A&O x's 3 - Labs CBC & Chem 7: 05/26/24 05:27 05/26/24 05:27 Labs: Abnormal Lab Results - Last 24 Hours (Table) 05/26/24 05/26/24 05/26/24 Range/Units 12:16 17:05 20:43 POC Glucose (mg/dL) 111 H 165 H 167 H (70-110) mg/dL Assessment and Plan (1) Acute kidney injury Current Visit: Yes Status: Acute Code(s): N17.9 - ACUTE KIDNEY FAILURE, UNSPECIFIED SNOMED Code(s): 50512158 (2) CKD (chronic kidney disease) Current Visit: Yes Status: Acute Code(s): N18.9 - CHRONIC KIDNEY DISEASE, UNSPECIFIED SNOMED Code(s): 189234818 (3) Hyperkalemia Current Visit: Yes Status: Acute Code(s): E87.5 - HYPERKALEMIA SNOMED C ode(s): 87751600 (4) Ascites Current Visit: No Status: Acute Code(s): R18.8 - OTHER ASCITES SNOMED Code(s): 459699553 (5) Atrial fibrillation Current Visit: No Status: Acute Code(s): I48.91 - UNSPECIFIED ATRIAL FIBRILLATION SNOMED Code(s): 85009608 (6) CAD (coronary artery disease) Current Visit: No Status: Acute Code(s): I25.10 - ATHSCL HEART DISEASE OF [place] CORONARY ARTERY W/O ANG PCTRS SNOMED Code(s): 08114364 (7) Chronic wound Current Visit: No Status: Acute Code(s): T14.8XXA - OTHER INJURY OF UNSPECIFIED BODY REGION, INITIAL ENCOUNTER SNOMED Code(s): 37618597999681 (8) Diabetes Current Visit: No Status: Acute Code(s): E11.9 - TYPE 2 DIABETES MELLITUS WITHOUT COMPLICATIONS SNOMED Code(s): 13426624 (9) Hyperlipidemia Current Visit: No Status: Acute Code(s): E78.5 - HYPERLIPIDEMIA, UNSPECIFIED SNOMED Code(s): 58204661 Plan: Check CBC and CMP in the morning. Appreciate multiple consultants. Will need to make arrangements for dialysis at discharge. Patient seen and evaluated by nurse practitioner, physician in agreement with plan.
[2024-05-27 09:43] LABS: Basophils % (A) 0 %; Eosinophils % (A) 11 %; HCT 24.4 % (34.0-46.0); HGB 7.6 gm/dL (11.4-16.0); Hypochromasia Marked; Lymphocytes # (A) 2.1 k/uL (1.0-4.8); Lymphocytes % (A) 22 %; MCH 29.2 pg (25.0-35.0); MCV 94.1 fL (80.0-100.0); Mean Platelet Volume 7.8; Monocytes # (A) 0.7 k/uL (0-1.0); Monocytes % (A) 7 %; Neutrophils # (A) 5.3 k/uL (1.3-7.7); Neutrophils % (A) 57 %; Platelet Count 194 k/uL (150-450); RBC 2.59 m/uL (3.80-5.40); RDW 15.7 % (11.5-15.5); WBC 9.3 k/uL (3.8-10.6)
--- NOTE | 2024-05-27 10:25 | XR ---
EXAMINATION TYPE: XR chest 1V portable DATE OF EXAM: 05/27/2024 10:07 AM COMPARISON: Chest radiographs from 05/20/2024 CLINICAL INDICATION: Female, 78 years old with history of to confiiirm dyalysis cath placement; [facility] TECHNIQUE: XR chest 1V portable Frontal view of the chest. FINDINGS: Lungs/Pleura: There is no evidence of pleural effusion, focal consolidation, or pneumothorax. Pulmonary vascularity: Unremarkable. Heart/mediastinum: Cardiomediastinal silhouette is unremarkable. Musculoskeletal: No acute osseous pathology. Other findings: None Lines/Tubes:Right internal jugular central venous catheter with distal tip at the cavoatrial junction . IMPRESSION: Right internal jugular central venous catheter with distal tip at the cavoatrial junction. [facility], , 05/27/2024 10:23 AM
[2024-05-27 12:23] LABS: Glucose,Whole Blood 170 mg/dL (70-110)
--- NOTE | 2024-05-27 13:20 | P.PN ---
Subjective Patient is seen for follow-up for acute kidney injury and chronic kidney disease. She has been started on dialysis on 05/21/2024. Urine output may have improved. No complaints of shortness of breath today. Status post right IJ permacath placement today. Objective - Vital Signs Vital signs: Vital Signs Temp 98.1 F 05/27/24 12:04 Pulse 56 L 05/27/24 12:04 Resp 16 05/27/24 12:04 BP 103/46 05/27/24 12:04 Pulse Ox 100 05/27/24 12:04 FiO2 Intake & Output 05/26/24 05/27/24 05/27/24 18:59 06:59 18:59 Intake Total 4020 240 Output Total 2766 Balance 1254 240 Intake: Oral 1620 240 Hemodialysis 2400 Output: Urine 75 Post Void Residual 291 Hemodialysis 400 Hemodialysis Net Amount 2000 Other: Voiding Method External Catheter # Bowel Movements 1 - Exam Patient is awake, comfortable, no acute distress. Examination of the heart S1 and S2 Examination of the lungs bilateral breath sounds are heard Abdomen is soft nontender Examination of lower extremities shows 2+ edema [employer] exam grossly intact - Labs CBC & Chem 7: 05/27/24 08:43 05/26/24 05:27 Labs: Abnormal Lab Results - Last 24 Hours (Table) 05/26/24 05/26/24 05/27/24 Range/Units 17:05 20:43 08:43 RBC 2.59 L (3.80-5.40) m/uL Hgb 7.6 L (11.4-16.0) gm/dL Hct 24.4 L (34.0-46.0) % RDW 15.7 H (11.5-15.5) % Eosinophils # 1.0 H (0-0.7) k/uL POC Glucose (mg/dL) 165 H 167 H (70-110) mg/dL 05/27/24 Range/Units 12:07 RBC (3.80-5.40) m/uL Hgb (11.4-16.0) gm/dL Hct (34.0-46.0) % RDW (11.5-15.5) % Eosinophils # (0-0.7) k/uL POC Glucose (mg/dL) 170 H (70-110) mg/dL Assessment and Plan Assessment: 1. Acute kidney injury secondary to ATN secondary to hepatorenal syndrome. Creatinine over 7 on admission. No hydronephrosis noted on imaging. Started hemodialysis on 05/21/2024 for worsening renal function and oliguria 2. Chronic kidney disease stage IIIb with baseline creatinine near 1.4 from January 2024. 3. Hyperkalemia secondary to acute kidney injury, metabolic acidosis, Entresto and potassium supplementation. Improved. 4. Metabolic acidosis secondary to acute kidney injury. Resolved. 5. Liver cirrhosis. 6. Diabetes mellitus. 7. Anemia of chronic kidney disease. Iron replete. On Aranesp. 8. Volume overload. Last paracentesis was May 20, 2024 with 3.5 L drained. Plan: Hemodialysis in a.m. Continue midodrine Continue hemodialysis post discharge and continue to monitor for recovery of renal function.
--- NOTE | 2024-05-27 13:35 | P.PN ---
Subjective Progress Note Date: 05/27/24 This is an 78-year-old female patient with a known history of diabetes mellitus, hypertension, congestive heart failure, hyperlipidemia, atrial fibrillation anticoagulated with Eliquis, anxiety/depression who was here today for an elective paracentesis that she has been requiring every 2 weeks for nonalcoholic liver failure. While in the department she developed dizziness and lightheadedness and had some lab work drawn. She was found to be severely hyperkalemic with a potassium of 8.6 and acute kidney injury with a BUN of 116 and a creatinine of 7.20. She was sent to the emergency room for further evaluation. Renal ultrasound revealed no evidence of hydronephrosis or masses bilaterally. EKG reveals sinus rhythm with a first-degree AV block and a left bundle branch block. Chest x-ray reveals cardiomegaly and low lung volumes without acute pulmonary infiltrate. Was treated with dextrose, calcium, regular insulin and sodium bicarbonate. He also received Lokelma. Follow-up labs reveal a sodium of 134. Potassium 7.9. Bicarb 13. BUN 114. Creatinine 7.03. Anion gap of 10. AST 31. ALT 17. Urinalysis is cloudy with large leukoesterase and high WBCs and rare bacteria. We are consulted as the patient is to be admitted to the intensive care unit. She is seen in the emergency dep artment. Currently sitting up on a stretcher. Awake and alert in no acute distress. Maintaining good O2 saturations in the high 90s on room air. She has been afebrile. Hemodynamically stable. She is on D5W with 3 A of bicarb at 75 mL/h. Patient was seen today on 05/21/2024, patient remains in the ICU, I saw this patient yesterday in consultation, and recommended ICU admission mostly because of her acute renal failure with hyperkalemia hypotension requiring placement on norepinephrine. Remains on norepinephrine at 0.02 mcg/kg/min remains on sodium bicarb drip at 75 cc/h patient had her hemodialysis today, she is on Eliquis, and she will have paracentesis done by interventional etiology later this afternoon. Pulmonary peterson the patient is doing well, no shortness of breath no cough no wheezing her WBC is 5.9 hemoglobin is 7.2 electrolytes are much better potassium is down to 5 bicarb is 23 BUN is 78 creatinine 4.71 chest x-ray on admission showed mostly cardiomegaly and low volumes there was no evidence of infiltrate and no evidence of pulmonary edema. Patient was seen by nephrology and felt to have hepatorenal syndrome with acute on chronic kidney injury. Renal ultrasound showed no evidence of hydronephrosis. Patient was seen today on 05/22/2024, patient is still requiring norepinephrine at 0.05 mcg/kg/min, she is undergoing hemodialysis today, she received Lasix earlier by nephrology, remains on Eliquis. Patient seems to be quite comfortable, she is on room air, does not seem to be in any distress. O2 saturation is 100%, I was considering transferring the patient out of the ICU today, however since she is on norepinephrine she needs to stay in the ICU for now. Patient was already placed on midodrine by nephrology. WBC count is 7.5 hemoglobin 7.4 electrolytes are normal BUN is 52 creatinine 3.90. Patient did undergo paracentesis yesterday by interventional radiology. Patient was seen today on 05/23/2024, remains in the ICU, mostly because she is still requiring a tiny dose of norepinephrine to maintain adequate blood pressure. Patient is on room air, not in any distress, continues to have fluid overload, and I am recommending today albumin followed by Lasix dose 40 mg IV push. Patient is on midodrine, and her blood pressure is extremely soft. WBC count is 7.5 hemoglobin 7.4 electrolytes showed low sodium of 127 BUN 31 creatinine 3.02 The patient is seen today May 24, 2024 in follow-up in the intensive care unit. She is currently awake and alert in no acute distress. Resting comfortably in bed. Maintaining O2 saturations in the 90s on room air. She is currently receiving hemodialysis with a goal of 1.2 L of fluid to be removed. Her blood pressure remains soft. She has been off the norepinephrine. She is on midodrine 10 mg 3 times daily. White count 8.0. Hemoglobin 7.7. Platelets 229. Sodium 127. Potassium 4.2. Bicarb 26. BUN 39. Creatinine 3.88. Glucose 132. Remains on IV Lasix 80 mg every 12 hours. Anticoagulate with Eliquis. The patient is seen today May 25, 2024 in follow-up in the intensive care unit. She is awake and alert in no acute distress. Sitting up in bed. Maintaining good O2 saturations in the 90s on room air. White count 7.6. Hemoglobin 7.0. Platelets 178. Sodium 127. Potassium 3.8. Bicarb 27. BUN 28. Creatinine 3.08. Glucose 200. IV Lasix was discontinued as no significant urine output noted. Continued on midodrine. Plan is for hemodialysis tomorrow. She is anticoagulated with Eliquis. The patient is seen today May 26, 2024 in follow-up on the regular medical floor. She is awake and alert in no acute distress. Sitting up in bed. Maintaining good O2 saturations in the 90s on room air. White count 7.9. Hemoglobin 7.5. Platelets 209. Sodium 126. Potassium 4.0. Bicarb 26. BUN 34. Creatinine 3.65. Glucose 117. She is receiving hemodialysis today with a goal of 2.5 L to be removed. She is continued on midodrine for pressure support. Anticoagulated with Eliquis. She is making some urine. The patient is seen today May 27, 2024 in follow-up on the regular medical floor. She is just returning from a right internal jugular hemodialysis permacath placement. Of breath, cough or congestion. She is maintaining good O2 saturations in the 90s on room air. Chest x-ray shows no evidence of pleural effusion, focal consolidation or pneumothorax. White count 9.3. Hemoglobin 7.6. Platelets 194. Glucose 170. She remains on albuterol as needed. Anti coagulated with Eliquis. Protonix for GI prophylaxis. Continued on midodrine. Plan is for hemodialysis tomorrow. Objective - Vital Signs Vital signs: Vital Signs Temp 98.1 F 05/27/24 12:04 Pulse 72 05/27/24 13:20 Resp 16 05/27/24 12:04 BP 120/66 05/27/24 13:20 Pulse Ox 100 05/27/24 12:04 FiO2 Intake & Output 05/26/24 05/27/24 05/27/24 18:59 06:59 18:59 Intake Total 4020 240 Output Total 2766 Balance 1254 240 Intake: Oral 1620 240 Hemodialysis 2400 Output: Urine 75 Post Void Residual 291 Hemodialysis 400 Hemodialysis Net Amount 2000 Other: Voiding Method External Catheter # Bowel Movements 1 - Exam GENERAL EXAM: Awake, alert, pleasant 78-year-old female, sitting up in bed, on room air. HEAD: Normocephalic. Atraumatic EYES: Normal reaction of pupils, equal size. NOSE: Clear with pink turbinates. THROAT: No erythema or exudates. NECK: No masses, no JVD. New right IJ permacath in place. CHEST: No chest wall deformity. LUNGS: Equal air entry with no crackles, wheeze, rhonchi or dullness. CVS: S1 and S2 normal with no audible murmur, regular rhythm. ABDOMEN: Abdominal distention with positive fluid wave. Positive ascites SKIN: Stage I pressure ulcer on the sacrum. Excoriations of the bilateral lower extremities. CENTRAL NERVOUS SYSTEM: No focal deficits, tone is normal in all 4 extremities. EXTREMITIES: There is 1-2+ peripheral edema. No clubbing, no cyanosis. P eripheral pulses are intact. - Labs CBC & Chem 7: 05/27/24 08:43 05/26/24 05:27 Labs: Abnormal Lab Results - Last 24 Hours (Table) 05/26/24 05/26/24 05/27/24 Range/Units 17:05 20:43 08:43 RBC 2.59 L (3.80-5.40) m/uL Hgb 7.6 L (11.4-16.0) gm/dL Hct 24.4 L (34.0-46.0) % RDW 15.7 H (11.5-15.5) % Eosinophils # 1.0 H (0-0.7) k/uL POC Glucose (mg/dL) 165 H 167 H (70-110) mg/dL 05/27/24 Range/Units 12:07 RBC (3.80-5.40) m/uL Hgb (11.4-16.0) gm/dL Hct (34.0-46.0) % RDW (11.5-15.5) % Eosinophils # (0-0.7) k/uL POC Glucose (mg/dL) 170 H (70-110) mg/dL Assessment and Plan Assessment: Acute kidney injury on top of chronic kidney disease stage IIIb. Acute tubular necrosis with acute hepatorenal syndrome. Renal ultrasound revealed no evidence of hydronephrosis or masses. Initiated on hemodialysis on 05/21/2024 Hyperkalemia secondary to above, improved Hyponatremia Metabolic acidosis Nonalcoholic liver failure requiring paracentesis nearly every 2 weeks. 3.6 L removed on 05/21/2024 Anemia, current hemoglobin 7.6 History of atrial fibrillation anticoagulated with Eliquis, currently in sinus mechanism Hypertension Hyperlipidemia History of congestive heart failure History of anxiety/depression Diabetes mellitus Lifelong non-smoker Stage I pressure ulcer on the sacrum Plan: The patient was seen and evaluated Chest x-ray, labs and medications reviewed Currently stable and on room air Right IJ permacath placed today Plan is for hemodialysis tomorrow Home once cleared by nephrology This patient was seen independently by the pulmonary nurse practitioner addressing pulmonary/critical care issues I have personally seen and examined the patient, performed the documentation and the assessment and plan as written. Number of minutes spent on the visit: 25 Dictation was produced using [employer] dictation software. Please excuse any grammatical, word or spelling errors.
--- NOTE | 2024-05-27 15:18 | P.PN ---
Subjective Progress Note Date: 05/27/24 Principal diagnosis: Reason for follow-up is lower extremity wound and back/sacral area excoriation 05/26/2024,the patient denies any fever or any chills, patient is breathing com fortably on room air, the patient denies chest pain shortness of breath and no significant cough, patient denies abdominal pain, no nausea vomiting or diarrhea, admitted to hospital with worsening kidney function has been started on dialysis ID consulted for lower extremity wound. On today's evaluation that is 05/27/2024,the patient remains to be afebrile, patient is on room air not requiring supplemental oxygen and denies any shortness of breath no chest pain or cough.Patient denies having any nausea or vomiting, no abdominal pain and no diarrhea complaining of some sore throat. Patient white count is 9.3 Objective - Vital Signs Vital signs: Vital Signs Temp 98.1 F 05/27/24 12:04 Pulse 72 05/27/24 13:20 Resp 16 05/27/24 12:04 BP 120/66 05/27/24 13:20 Pulse Ox 100 05/27/24 12:04 FiO2 Intake & Output 05/26/24 05/27/24 05/27/24 18:59 06:59 18:59 Intake Total 4020 240 Output Total 2766 Balance 1254 240 Intake: Oral 1620 240 Hemodialysis 2400 Output: Urine 75 Post Void Residual 291 Hemodialysis 400 Hemodialysis Net Amount 1999 Other: Voiding Method External Catheter External Catheter # Bowel Movements 1 1 - Exam GENERAL DESCRIPTION: An elderly female lying in bed in no distress RESPIRATORY SYSTEM: Unlabored breathing , decreased breath sounds at bases HEART: S1 S2 regular rate and rhythm , ABDOMEN: Soft , no tenderness EXTREMITIES: No edema feet - Labs CBC & Chem 7: 05/27/24 08:43 05/26/24 05:27 Labs: Abnormal Lab Results - Last 24 Hours (Table) 05/26/24 05/26/24 05/27/24 Range/Units 17:05 20:43 08:43 RBC 2.59 L (3.80-5.40) m/uL Hgb 7.6 L (11.4-16.0) gm/dL Hct 24.4 L (34.0-46.0) % RDW 15.7 H (11.5-15.5) % Eosinophils # 1.0 H (0-0.7) k/uL POC Glucose (mg/dL) 165 H 167 H (70-110) mg/dL 05/27/24 Range/Units 12:07 RBC (3.80-5.40) m/uL Hgb (11.4-16.0) gm/dL Hct (34.0-46.0) % RDW (11.5-15.5) % Eosinophils # (0-0.7) k/uL POC Glucose (mg/dL) 170 H (70-110) mg/dL Assessment and Plan (1) Excoriation of back Current Visit: Yes Status: Acute Code(s): S20.419A - ABRASION OF UNSPECIFIED BACK WALL OF THORAX, INIT ENCNTR SNOMED Code(s): 42334219 (2) Excoriation of buttock Current Visit: Yes Status: Acute Code(s): S30.810A - ABRASION OF LOWER BACK AND PELVIS, INITIAL ENCOUNTER SNOMED Code(s): 419208377 (3) Type 2 diabetes mellitus with other skin ulcer Current Visit: No Status: Acute Code(s): E11.622 - TYPE 2 DIABETES MELLITUS WITH OTHER SKIN ULCER; L98.499 - NON-PRESSURE CHRONIC ULCER OF SKIN OF SITES W UNSP SEVERITY SNOMED Code(s): 829772143342314 Plan: 1-patient did have a history of left heel osteomyelitis for the patient has completed her antibiotic therapy currently do not have any open wound some indentation but no evidence of any skin breakdown recommended local care with keeping the area of the pressure and dry 2-patient did have significant excoriation of the sacral and the back area for which the patient continue with the current local skin protective cream and no need for systemic antibiotic Dictation was produced using [employer] dictation software. please excuse any grammatical, word or spelling errors. Time with Patient: Less than 30
[2024-05-27 17:19] LABS: Glucose,Whole Blood 155 mg/dL (70-110)
--- NOTE | 2024-05-27 19:14 | OP ---
OPERATIVE REPORT DATE OF SERVICE : PREOPERATIVE DIAGNOSIS: Acute on chronic renal failure. PROCEDURES: 1. Ultrasound-guided 19 cm dialysis catheter placed in her right jugular approach. 2. Removal of the temporary dialysis catheter, left femoral approach. PROCEDURE IN DETAIL: The patient was brought to the ear mold laboratory technician, where right side of the neck and left side of the groins are prepped and drapes were applied in a sterile manner. Under local and IV sedation, ultrasound-guided micropuncture introduced into the right jugular vein, and micropuncture guidewire was passed and a 4-Uzbek dilator advanced on top of the guidewire. Then, we passed a regular guidewire, which was parked at the inferior vena cava. Then, tunnel was created. Through the tunnel, we brought a 19 cm dialysis catheter. Then, dilator was advanced on top of the guidewire. The sheath was advanced on top of the guidewire. Through the sheath, we introduced dialysis catheter. Tip of the catheter in the superior vena cavoatrial junction, flushed with heparin saline and hep-lock, secured with 2-0 nylon. The patient tolerated the procedure well. The left groin was prepped and stitches were removed and left dialysis catheter was removed. Pressure was held. The patient tolerated the procedure well. MMODL / IJN: [id number] /
[2024-05-27 20:05] LABS: Glucose,Whole Blood 197 mg/dL (70-110)
[2024-05-28 08:32] LABS: Glucose,Whole Blood 103 mg/dL (70-110)
[2024-05-28 08:45] LABS: HCT 20.4 % (37.2-46.3); HGB 6.5 g/dL (12.0-15.0); MCH 28.4 pg (27.0-32.0); MCHC 31.9 g/dL (32.0-37.0); MCV 89.1 FL (80.0-97.0); Mean Platelet Volume 10.5 FL (9.5-12.2); NRBC Per 100 WBC 0 X 10*3/uL (0.00-0.01); Platelet Count 197 X 10*3/uL (140-440); RBC 2.29 X 10*6/uL (4.10-5.20); RDW 15.8 % (11.5-14.5); WBC 7.65 X 10*3/uL (4.50-10.00)
--- NOTE | 2024-05-28 08:47 | P.DS ---
Providers Date of admission: 05/20/24 14:31 Attending physician: Luis Shirley Consults: 05/20/24 14:26 Consult Physician Stat Consulting Provider: Renetta Kennedy Consult Reason/Comments: acute kidney failure, acute hyperkalemia Do you want consulting provider notified?: Already Contacted Consult Physician Urgent Consulting Provider: Roc Coyne Consult Reason/Comments: jony/ckd, acute hyperkalemia Do you want consulting provider notified?: Already Contacted 05/20/24 15:15 Consult Physician Stat Consulting Provider: Miah Maria Consult Reason/Comments: dialysis catheter placement Do you want consulting provider notified?: Already Contacted 05/25/24 08:33 Consult Physician Routine Consulting Provider: Jenae Bowman Consult Reason/Comments: chronic wounds bilateral lower extremities Do you want consulting provider notified?: Yes 05/25/24 11:43 Consult Physician Urgent Consulting Provider: Miah Maria Consult Reason/Comments: IJ Permacath placement Do you want consulting provider notified?: Yes Primary care physician: Luis Shirley - Discharge Diagnosis(es) (1) Acute kidney injury Current Visit: Yes Status: Acute (2) CKD (chronic kidney disease) Current Visit: Yes Status: Acute (3) Hyperkalemia Current Visit: Yes Status: Acute (4) Ascites Current Visit: No Status: Acute (5) Atrial fibrillation Current Visit: No Status: Acute (6) Diabetes Current Visit: No Status: Acute (7) Hypotension Current Visit: No Status: Acute Hospital Course: This is a discharge summary on an 78-year-old white female essentially admitted for acute on chronic renal failure. The patient ended up needing dialysis and now is being discharged with permacath. The patient is now stable although com plains of mild sore throat. She has an underlying history of nonalcoholic fatty liver disease which requires ascites treatment. Once she is cleared by consultants, we will discharge home with appropriate dialysis protocol. Patient Condition at Discharge: Serious Plan - Discharge Summary New Discharge Prescriptions: New Darbepoetin Fernando [Aranesp] 40 mcg SQ Q7D #4 each Midodrine [ProAmatine] 10 mg PO AC-TID #90 tab Continue Ipratropium [place] [Atrovent Hfa] 2 puff INHALATION RT-QID ALPRAZolam [Xanax] 0.25 mg PO TID PRN PRN Reason: Anxiety Aspirin 81 mg PO DAILY Atorvastatin [Lipitor] 20 mg PO DAILY Escitalopram [Lexapro] 10 mg PO DAILY Furosemide [Lasix] 80 mg PO DAILY Insulin Glargine,Hum.rec.anlog [Toujeo Max Solostar] 16 - 18 units SQ HS Insulin Glargine,Hum.rec.anlog [Toujeo Max Solostar] 24 units SQ DAILY Potassium Chloride ER [K-Dur 20] 20 meq PO DAILY carvediloL [Coreg] 3.125 mg PO BID Albuterol Inhaler [Ventolin Hfa Inhaler] 2 puff INHALATION RT-QID PRN PRN Reason: Shortness Of Breath Sodium Bicarbonate Tab 650 mg PO BID #60 tab Torsemide [Demadex] 40 mg PO DAILY #30 tab Menthol-Zinc Oxide Oint [Calmoseptine Ointment] 1 applic TOPICAL DIRECTED Periguard Ointment 1 applic TOPICAL DIRECTED Vits A and D/White Pet/Lanolin [A and D Ointment] 1 applic TOPICAL DAILY PRN PRN Reason: itching back traMADol HCL 50 mg PO TID PRN PRN Reason: Pain Apixaban [Eliquis] 5 mg PO BID Sacubitril/Valsartan [Entresto 24 mg-26 mg Tablet] 1 tab PO BID Omeprazole [PriLOSEC] 20 mg PO DAILY Ammonium Lactate Lotion [Lac-Hydrin 12% Lotion] 1 applic TOPICAL BID PRN PRN Reason: DRY ITCHY SKIN Cholecalciferol [Vitamin D3 (25 Mcg = 1000 Iu)] 25 mcg PO DAILY Multivit-Min/FA/Lycopen/Lutein [Centrum Silver Tablet] 1 tab PO DAILY Vit C/E/Zn/Coppr/Lutein/Zeaxan [Preservision Areds 2 Softgel] 1 cap PO BID Ascorbic Acid [Vitamin C] 1,000 mg PO DAILY Magnesium Oxide [Mag-Ox] 400 mg PO DAILY #30 tab Nystatin 100,000Unit/gm Cream [Mycostatin Cream] 1 applic TOPICAL BID #60 g Metoprolol Tartrate [Lopressor] 12.5 mg PO BID Discharge Medication List Apixaban [Eliquis] 5 mg PO BID 08/13/20 [History] Sacubitril/Valsartan [Entresto 24 mg-26 mg Tablet] 1 tab PO BID 01/12/22 [History] Omeprazole [PriLOSEC] 20 mg PO DAILY 03/05/22 [History] Ipratropium [place] [Atrovent Hfa] 2 puff INHALATION RT-QID 09/09/22 [History] ALPRAZolam [Xanax] 0.25 mg PO TID PRN 05/30/23 [History] Ammonium Lactate Lotion [Lac-Hydrin 12% Lotion] 1 applic TOPICAL BID PRN 05/30/23 [History] Aspirin 81 mg PO DAILY 05/30/23 [History] Atorvastatin [Lipitor] 20 mg PO DAILY 05/30/23 [History] Cholecalciferol [Vitamin D3 (25 Mcg = 1000 Iu)] 25 mcg PO DAILY 05/30/23 [History] Escitalopram [Lexapro] 10 mg PO DAILY 05/30/23 [History] Furosemide [Lasix] 80 mg PO DAILY 05/30/23 [History] Insulin Glargine,Hum.rec.anlog [Toujeo Max Solostar] 16 - 18 units SQ HS 05/30/23 [History] Insulin Glargine,Hum.rec.anlog [Toujeo Max Solostar] 24 units SQ DAILY 05/30/23 [History] Multivit-Min/FA/Lycopen/Lutein [Centrum Silver Tablet] 1 tab PO DAILY 05/30/23 [History] Potassium Chloride ER [K-Dur 20] 20 meq PO DAILY 05/30/23 [History] Albuterol Inhaler [Ventolin Hfa Inhaler] 2 puff INHALATION RT-QID PRN 01/09/24 [History] Ascorbic Acid [Vitamin C] 1,000 mg PO DAILY 01/09/24 [History] Vit C/E/Zn/Coppr/Lutein/Zeaxan [Preservision Areds 2 Softgel] 1 cap PO BID 01/09/24 [History] carvediloL [Coreg] 3.125 mg PO BID 01/09/24 [History] Magnesium Oxide [Mag-Ox] 400 mg PO DAILY #30 tab 01/16/24 [Rx] Nystatin 100,000Unit/gm Cream [Mycostatin Cream] 1 applic TOPICAL BID #60 g 01/16/24 [Rx] Sodium Bicarbonate Tab 650 mg PO BID #60 tab 01/16/24 [Rx] Torsemide [Demadex] 40 mg PO DAILY #30 tab 01/16/24 [Rx] Metoprolol Tartrate [Lopressor] 12.5 mg PO BID 01/30/24 [History] Menthol-Zinc Oxide Oint [Calmoseptine Ointment] 1 applic TOPICAL DIRECTED 03/03/24 [History] Periguard Ointment 1 applic TOPICAL DIRECTED 03/03/24 [History] Vits A and D/White Pet/Lanolin [A and D Ointment] 1 applic TOPICAL DAILY PRN 03/03/24 [History] traMADol HCL 50 mg PO TID PRN 05/20/24 [History] Darbepoetin Fernando [Aranesp] 40 mcg SQ Q7D #4 each 05/28/24 [Rx] Midodrine [ProAmatine] 10 mg PO AC-TID #90 tab 05/28/24 [Rx] Follow up Appointment(s)/Referral(s): Residential Home,Health [NON-STAFF] - 1 Week Luis Shirley MD [Primary Care Provider] - 1 Week Discharge/Stand Alone Forms: [facility] Pamphlet, Community Resources, Help In The Home Discharge Disposition: HOME WITH HOME HEALTH SERVICES
[2024-05-28 09:23] LABS: ALT 17 U/L (8-44); AST 31 U/L (13-35); Albumin 2.3 g/dL (3.8-4.9); Albumin/Globulin Ratio 0.92 Ratio (1.60-3.17); Alkaline Phosphatase 96 U/L (41-126); BUN/Creat Ratio 7.71 Ratio (12.00-20.00); Blood Urea Nitrogen 31.6 mg/dL (9.0-27.0); Calcium 7.9 mg/dL (8.7-10.3); Carbon Dioxide 23.8 mmol/L (21.6-31.8); Chloride 95 mmol/L (96-109); Globulin 2.5 g/dL (1.6-3.3); Glucose 116 mg/dL (70-110); Potassium 4.6 mmol/L (3.5-5.5); Sodium 128 mmol/L (135-145); Total Bilirubin 0.2 mg/dL (0.3-1.2); Total Protein 4.8 g/dL (6.2-8.2)
[2024-05-28 11:27] LABS: Glucose,Whole Blood 155 mg/dL (70-110)
--- NOTE | 2024-05-28 12:52 | P.PN ---
Subjective Progress Note Date: 05/28/24 This is an 78-year-old female patient with a known history of diabetes mellitus, hypertension, congestive heart failure, hyperlipidemia, atrial fibrillation anticoagulated with Eliquis, anxiety/depression who was here today for an elective paracentesis that she has been requiring every 2 weeks for nonalcoholic liver failure. While in the department she developed dizziness and lightheadedness and had some lab work drawn. She was found to be severely hyperkalemic with a potassium of 8.6 and acute kidney injury with a BUN of 116 and a creatinine of 7.20. She was sent to the emergency room for further evaluation. Renal ultrasound revealed no evidence of hydronephrosis or masses bilaterally. EKG reveals sinus rhythm with a first-degree AV block and a left bundle branch block. Chest x-ray reveals cardiomegaly and low lung volumes without acute pulmonary infiltrate. Was treated with dextrose, calcium, regular insulin and sodium bicarbonate. He also received Lokelma. Follow-up labs reveal a sodium of 134. Potassium 7.9. Bicarb 13. BUN 114. Creatinine 7.03. Anion gap of 10. AST 31. ALT 17. Urinalysis is cloudy with large leukoesterase and high WBCs and rare bacteria. We are consulted as the patient is to be admitted to the intensive care unit. She is seen in the emergency dep artment. Currently sitting up on a stretcher. Awake and alert in no acute distress. Maintaining good O2 saturations in the high 90s on room air. She has been afebrile. Hemodynamically stable. She is on D5W with 3 A of bicarb at 75 mL/h. Patient was seen today on 05/21/2024, patient remains in the ICU, I saw this patient yesterday in consultation, and recommended ICU admission mostly because of her acute renal failure with hyperkalemia hypotension requiring placement on norepinephrine. Remains on norepinephrine at 0.02 mcg/kg/min remains on sodium bicarb drip at 75 cc/h patient had her hemodialysis today, she is on Eliquis, and she will have paracentesis done by interventional etiology later this afternoon. Pulmonary peterson the patient is doing well, no shortness of breath no cough no wheezing her WBC is 5.9 hemoglobin is 7.2 electrolytes are much better potassium is down to 5 bicarb is 23 BUN is 78 creatinine 4.71 chest x-ray on admission showed mostly cardiomegaly and low volumes there was no evidence of infiltrate and no evidence of pulmonary edema. Patient was seen by nephrology and felt to have hepatorenal syndrome with acute on chronic kidney injury. Renal ultrasound showed no evidence of hydronephrosis. Patient was seen today on 05/22/2024, patient is still requiring norepinephrine at 0.05 mcg/kg/min, she is undergoing hemodialysis today, she received Lasix earlier by nephrology, remains on Eliquis. Patient seems to be quite comfortable, she is on room air, does not seem to be in any distress. O2 saturation is 100%, I was considering transferring the patient out of the ICU today, however since she is on norepinephrine she needs to stay in the ICU for now. Patient was already placed on midodrine by nephrology. WBC count is 7.5 hemoglobin 7.4 electrolytes are normal BUN is 52 creatinine 3.90. Patient did undergo paracentesis yesterday by interventional radiology. Patient was seen today on 05/23/2024, remains in the ICU, mostly because she is still requiring a tiny dose of norepinephrine to maintain adequate blood pressure. Patient is on room air, not in any distress, continues to have fluid overload, and I am recommending today albumin followed by Lasix dose 40 mg IV push. Patient is on midodrine, and her blood pressure is extremely soft. WBC count is 7.5 hemoglobin 7.4 electrolytes showed low sodium of 127 BUN 31 creatinine 3.02 The patient is seen today May 24, 2024 in follow-up in the intensive care unit. She is currently awake and alert in no acute distress. Resting comfortably in bed. Maintaining O2 saturations in the 90s on room air. She is currently receiving hemodialysis with a goal of 1.2 L of fluid to be removed. Her blood pressure remains soft. She has been off the norepinephrine. She is on midodrine 10 mg 3 times daily. White count 8.0. Hemoglobin 7.7. Platelets 229. Sodium 127. Potassium 4.2. Bicarb 26. BUN 39. Creatinine 3.88. Glucose 132. Remains on IV Lasix 80 mg every 12 hours. Anticoagulate with Eliquis. The patient is seen today May 25, 2024 in follow-up in the intensive care unit. She is awake and alert in no acute distress. Sitting up in bed. Maintaining good O2 saturations in the 90s on room air. White count 7.6. Hemoglobin 7.0. Platelets 178. Sodium 127. Potassium 3.8. Bicarb 27. BUN 28. Creatinine 3.08. Glucose 200. IV Lasix was discontinued as no significant urine output noted. Continued on midodrine. Plan is for hemodialysis tomorrow. She is anticoagulated with Eliquis. The patient is seen today May 26, 2024 in follow-up on the regular medical floor. She is awake and alert in no acute distress. Sitting up in bed. Maintaining good O2 saturations in the 90s on room air. White count 7.9. Hemoglobin 7.5. Platelets 209. Sodium 126. Potassium 4.0. Bicarb 26. BUN 34. Creatinine 3.65. Glucose 117. She is receiving hemodialysis today with a goal of 2.5 L to be removed. She is continued on midodrine for pressure support. Anticoagulated with Eliquis. She is making some urine. The patient is seen today May 27, 2024 in follow-up on the regular medical floor. She is just returning from a right internal jugular hemodialysis permacath placement. Of breath, cough or congestion. She is maintaining good O2 saturations in the 90s on room air. Chest x-ray shows no evidence of pleural effusion, focal consolidation or pneumothorax. White count 9.3. Hemoglobin 7.6. Platelets 194. Glucose 170. She remains on albuterol as needed. Anti coagulated with Eliquis. Protonix for GI prophylaxis. Continued on midodrine. Plan is for hemodialysis tomorrow. The patient is seen today May 28, 2024 in follow-up on the regular medical floor. She is resting comfortably in bed. Awake and alert in no acute distress. Maintaining good O2 saturations in the 90s on room air. She did have a right IJ permacath placed yesterday. Plan is for hemodialysis today. White count 7.6. Hemoglobin 6.5. Platelets 197. Sodium 128. Potassium 4.6. Bicarb 24. BUN 32. Creatinine 4.1. Glucose 116. She will receive 1 unit of packed red blood cells today. Objective - Vital Signs Vital signs: Vital Signs Temp 97.7 F 05/28/24 07:12 Pulse 62 05/28/24 07:12 Resp 19 05/28/24 07:12 BP 123/59 05/28/24 07:12 Pulse Ox 100 05/28/24 07:12 FiO2 Intake & Output 05/27/24 05/28/24 05/28/24 18:59 06:59 18:59 Output Total 200 Balance -200 Output: Urine 200 Other: Voiding Method External Catheter External Catheter External Catheter # Bowel Movements 1 - Exam GENERAL EXAM: Awake, alert, 78-year-old female, resting in bed, on room air. HEAD: Normocephalic. Atraumatic EYES: Normal reaction of pupils, equal size. NOSE: Clear with pink turbinates. THROAT: No erythema or exudates. NECK: No masses, no JVD. New right IJ permacath in place. CHEST: No chest wall deformity. LUNGS: Equal air entry with no crackles, wheeze, rhonchi or dullness. CVS: S1 and S2 normal with no audible murmur, regular rhythm. ABDOMEN: Abdominal distention with positive fluid wave. Positive ascites SKIN: Stage I pressure ulcer on the sacrum. Excoriations of the bilateral lower extremities. CENTRAL NERVOUS SYSTEM: No focal deficits, tone is normal in all 4 extremities. EXTREMITIES: There is 1-2+ peripheral edema. No clubbing, no cyanosis. Peripheral pulses are intact. - Labs CBC & Chem 7: 05/28/24 04:17 05/28/24 04:17 Labs: Abnormal Lab Results - Last 24 Hours (Table) 05/27/24 05/27/24 05/28/24 Range/Units 17:16 20:04 04:17 RBC 2.29 L (4.10-5.20) X 10*6/uL Hgb 6.5 A* (12.0-15.0) g/dL Hct 20.4 L (37.2-46.3) % MCHC 31.9 L (32.0-37.0) g/dL RDW 15.8 H (11.5-14.5) % Sodium (135-145) mmol/L Chloride (96-109) mmol/L BUN (9.0-27.0) mg/dL Creatinine (0.6-1.5) mg/dL Est GFR (CKD-EPI) (>=60) BUN/Creatinine Ratio (12.00-20.00) Ratio Glucose (70-110) mg/dL POC Glucose (mg/dL) 155 H 197 H (70-110) mg/dL Calcium (8.7-10.3) mg/dL Total Bilirubin (0.3-1.2) mg/dL Total Protein (6.2-8.2) g/dL Albumin (3.8-4.9) g/dL Albumin/Globulin Ratio (1.60-3.17) Ratio Crossmatch 05/28/24 05/28/24 05/28/24 Range/Units 04:17 09:22 11:26 RBC (4.10-5.20) X 10*6/uL Hgb (12.0-15.0) g/dL Hct (37.2-46.3) % MCHC (32.0-37.0) g/dL RDW (11.5-14.5) % Sodium 128 L (135-145) mmol/L Chloride 95 L (96-109) mmol/L BUN 31.6 H (9.0-27.0) mg/dL Creatinine 4.1 H (0.6-1.5) mg/dL Est GFR (CKD-EPI) 10 L (>=60) BUN/Creatinine Ratio 7.71 L (12.00-20.00) Ratio Glucose 116 H (70-110) mg/dL POC Glucose (mg/dL) 155 H (70-110) mg/dL Calcium 7.9 L (8.7-10.3) mg/dL Total Bilirubin 0.2 L (0.3-1.2) mg/dL Total Protein 4.8 L (6.2-8.2) g/dL Albumin 2.3 L (3.8-4.9) g/dL Albumin/Globulin Ratio 0.92 L (1.60-3.17) Ratio Crossmatch See Detail Assessment and Plan Assessment: Acute kidney injury on top of chronic kidney disease stage IIIb. Acute tubular necrosis with acute hepatorenal syndrome. Renal ultrasound revealed no evidence of hydronephrosis or masses. Initiated on hemodialysis on 05/21/2024 Hyperkalemia secondary to above, improved Hyponatremia, improving Metabolic acidosis, improving Nonalcoholic liver failure requiring paracentesis nearly every 2 weeks. 3.6 L removed on 05/21/2024 Anemia, current hemoglobin 6.5. Receiving 1 unit of packed red blood cells today History of atrial fibrillation anticoagulated with Eliquis, currently in sinus mechanism Hypertension Hyperlipidemia History of congestive heart failure History of anxiety/depression Diabetes mellitus Lifelong non-smoker Stage I pressure ulcer on the sacrum Plan: The patient was seen and evaluated Labs and medications reviewed To receive 1 unit of packed red blood cells today To receive hemodialysis today Currently stable and on room air Home once cleared by nephrology This patient was seen independently by the pulmonary nurse practitioner addressing pulmonary/critical care issues I have personally seen and examined the patient, performed the documentation and the assessment and plan as written. Number of minutes spent on the visit: 23 Dictation was produced using [employer] dictation software. Please excuse any grammatical, word or spelling errors.
--- NOTE | 2024-05-28 13:04 | P.PN ---
Subjective Progress Note Date: 05/28/24 Principal diagnosis: Reason for follow-up is lower extremity wound and back/sacral area excoriation 05/26/2024,the patient denies any fever or any chills, patient is breathing com fortably on room air, the patient denies chest pain shortness of breath and no significant cough, patient denies abdominal pain, no nausea vomiting or diarrhea, admitted to hospital with worsening kidney function has been started on dialysis ID consulted for lower extremity wound. On today's evaluation that is 05/28/2024, the patient continues to be afebrile, the patient is on room air and breathing comfortably, the Pt denies having any chest pain or cough, the patient denies having any abdominal pain no vomiting or any diarrhea complaining of some pain to the neck area and sore throat. Patient white count 7.65, creatinine is 4.1 Objective - Vital Signs Vital signs: Vital Signs Temp 97.7 F 05/28/24 07:12 Pulse 62 05/28/24 07:12 Resp 19 05/28/24 07:12 BP 123/59 05/28/24 07:12 Pulse Ox 100 05/28/24 07:12 FiO2 Intake & Output 05/27/24 05/28/24 05/28/24 18:59 06:59 18:59 Output Total 200 Balance -200 Output: Urine 200 Other: Voiding Method External Catheter External Catheter External Catheter # Bowel Movements 1 - Exam GENERAL DESCRIPTION: An elderly female lying in bed in no distress RESPIRATORY SYSTEM: Unlabored breathing , decreased breath sounds at bases HEART: S1 S2 regular rate and rhythm , ABDOMEN: Soft , no tenderness EXTREMITIES: No edema feet - Labs CBC & Chem 7: 05/28/24 04:17 05/28/24 04:17 Labs: Abnormal Lab Results - Last 24 Hours (Table) 05/27/24 05/27/24 05/28/24 Range/Units 17:16 20:04 04:17 RBC 2.29 L (4.10-5.20) X 10*6/uL Hgb 6.5 A* (12.0-15.0) g/dL Hct 20.4 L (37.2-46.3) % MCHC 31.9 L (32.0-37.0) g/dL RDW 15.8 H (11.5-14.5) % Sodium (135-145) mmol/L Chloride (96-109) mmol/L BUN (9.0-27.0) mg/dL Creatinine (0.6-1.5) mg/dL Est GFR (CKD-EPI) (>=60) BUN/Creatinine Ratio (12.00-20.00) Ratio Glucose (70-110) mg/dL POC Glucose (mg/dL) 155 H 197 H (70-110) mg/dL Calcium (8.7-10.3) mg/dL Total Bilirubin (0.3-1.2) mg/dL Total Protein (6.2-8.2) g/dL Albumin (3.8-4.9) g/dL Albumin/Globulin Ratio (1.60-3.17) Ratio Crossmatch 05/28/24 05/28/24 05/28/24 Range/Units 04:17 09:22 11:26 RBC (4.10-5.20) X 10*6/uL Hgb (12.0-15.0) g/dL Hct (37.2-46.3) % MCHC (32.0-37.0) g/dL RDW (11.5-14.5) % Sodium 128 L (135-145) mmol/L Chloride 95 L (96-109) mmol/L BUN 31.6 H (9.0-27.0) mg/dL Creatinine 4.1 H (0.6-1.5) mg/dL Est GFR (CKD-EPI) 10 L (>=60) BUN/Creatinine Ratio 7.71 L (12.00-20.00) Ratio Glucose 116 H (70-110) mg/dL POC Glucose (mg/dL) 155 H (70-110) mg/dL Calcium 7.9 L (8.7-10.3) mg/dL Total Bilirubin 0.2 L (0.3-1.2) mg/dL Total Protein 4.8 L (6.2-8.2) g/dL Albumin 2.3 L (3.8-4.9) g/dL Albumin/Globulin Ratio 0.92 L (1.60-3.17) Ratio Crossmatch See Detail Assessment and Plan (1) Excoriation of back Current Visit: Yes Status: Acute Code(s): S20.419A - ABRASION OF UNSPECIFIED BACK WALL OF THORAX, INIT ENCNTR SNOMED Code(s): 79379593 (2) Excoriation of buttock Current Visit: Yes Status: Acute Code(s): S30.810A - ABRASION OF LOWER BACK AND PELVIS, INITIAL ENCOUNTER SNOMED Code(s): 302917544 (3) Type 2 diabetes mellitus with other skin ulcer Current Visit: No Status: Acute Code(s): E11.622 - TYPE 2 DIABETES MELLITUS WITH OTHER SKIN ULCER; L98.499 - NON-PRESSURE CHRONIC ULCER OF SKIN OF SITES W UNSP SEVERITY SNOMED Code(s): 187172525504843 Plan: 1-patient did have a history of left heel osteomyelitis for the patient has completed her antibiotic therapy currently do not have any open wound some in dentation but no evidence of any skin breakdown recommended local care with keeping the area of the pressure and dry 2-patient did have significant excoriation of the sacral and the back area for which the patient continue with the current local skin protective cream and no need for systemic antibiotic therapy on discharge Dictation was produced using [employer] dictation software. please excuse any grammatical, word or spelling errors. Time with Patient: Less than 30
--- NOTE | 2024-05-28 15:04 | P.PN ---
Subjective Patient is seen for follow-up for acute kidney injury and chronic kidney disease. She has been started on dialysis on 05/21/2024 for worsening renal function, volume overload and oliguria. Urine output may be starting to improve. No complaints of shortness of breath today. Status post right IJ permacath placement yesterday. Scheduled for hemodialysis today. Objective - Vital Signs Vital signs: Vital Signs Temp 98.6 F 05/28/24 14:00 Pulse 53 L 05/28/24 14:00 Resp 18 05/28/24 14:00 BP 132/57 05/28/24 14:00 Pulse Ox 98 05/28/24 14:00 FiO2 Intake & Output 05/27/24 05/28/24 05/28/24 18:59 06:59 18:59 Intake Total 0 Output Total 200 Balance -200 0 Intake: Blood Product 0 Unit 0 Output: Urine 200 Other: Voiding Method External Catheter External Catheter External Catheter # Bowel Movements 1 - Exam Patient is awake, comfortable, no acute distress. Examination of the heart S1 and S2 Examination of the lungs bilateral breath sounds are heard Abdomen is soft nontender Examination of lower extremities shows 1+ edema [employer] exam grossly intact - Labs CBC & Chem 7: 05/28/24 04:17 05/28/24 04:17 Labs: Abnormal Lab Results - Last 24 Hours (Table) 05/27/24 05/27/24 05/28/24 Range/Units 17:16 20:04 04:17 RBC 2.29 L (4.10-5.20) X 10*6/uL Hgb 6.5 A* (12.0-15.0) g/dL Hct 20.4 L (37.2-46.3) % MCHC 31.9 L (32.0-37.0) g/dL RDW 15.8 H (11.5-14.5) % Sodium (135-145) mmol/L Chloride (96-109) mmol/L BUN (9.0-27.0) mg/dL Creatinine (0.6-1.5) mg/dL Est GFR (CKD-EPI) (>=60) BUN/Creatinine Ratio (12.00-20.00) Ratio Glucose (70-110) mg/dL POC Glucose (mg/dL) 155 H 197 H (70-110) mg/dL Calcium (8.7-10.3) mg/dL Total Bilirubin (0.3-1.2) mg/dL Total Protein (6.2-8.2) g/dL Albumin (3.8-4.9) g/dL Albumin/Globulin Ratio (1.60-3.17) Ratio Crossmatch 05/28/24 05/28/24 05/28/24 Range/Units 04:17 09:22 11:26 RBC (4.10-5.20) X 10*6/uL Hgb (12.0-15.0) g/dL Hct (37.2-46.3) % MCHC (32.0-37.0) g/dL RDW (11.5-14.5) % Sodium 128 L (135-145) mmol/L Chloride 95 L (96-109) mmol/L BUN 31.6 H (9.0-27.0) mg/dL Creatinine 4.1 H (0.6-1.5) mg/dL Est GFR (CKD-EPI) 10 L (>=60) BUN/Creatinine Ratio 7.71 L (12.00-20.00) Ratio Glucose 116 H (70-110) mg/dL POC Glucose (mg/dL) 155 H (70-110) mg/dL Calcium 7.9 L (8.7-10.3) mg/dL Total Bilirubin 0.2 L (0.3-1.2) mg/dL Total Protein 4.8 L (6.2-8.2) g/dL Albumin 2.3 L (3.8-4.9) g/dL Albumin/Globulin Ratio 0.92 L (1.60-3.17) Ratio Crossmatch See Detail Assessment and Plan Assessment: 1. Acute kidney injury secondary to ATN secondary to hepatorenal syndrome. Creatinine over 7 on admission. No hydronephrosis noted on imaging. Started hemodialysis on 05/21/2024 for worsening renal function and oliguria 2. Chronic kidney disease stage IIIb with baseline creatinine near 1.4 from January 2024. 3. Hyperkalemia secondary to acute kidney injury, metabolic acidosis, Entresto and potassium supplementation. Improved. 4. Metabolic acidosis secondary to acute kidney injury. Resolved. 5. Liver cirrhosis. Last paracentesis was May 20, 2024 with 3.5 L drained. 6. Diabetes mellitus. 7. Anemia of chronic kidney disease. Iron replete. On Aranesp. 8. Volume overload, improving Plan: Hemodialysis today Continue midodrine Continue hemodialysis post discharge and continue to monitor for recovery of renal function.
[2024-05-28 17:18] LABS: Glucose,Whole Blood 101 mg/dL (70-110)
[2024-05-28 19:54] LABS: Glucose,Whole Blood 127 mg/dL (70-110)
[2024-05-29 07:06] LABS: Glucose,Whole Blood 97 mg/dL (70-110)
[2024-05-29 12:15] LABS: Glucose,Whole Blood 158 mg/dL (70-110)
--- NOTE | 2024-05-29 13:06 | P.PN ---
Subjective this is an 78-year-old white female who is admitted secondary to renal failure. She is now on dialysis. Parenting catheter is being placed due to the nature of her treatment. Patient renal disease is presumed secondary to hepatorenal syndrome related to her decompensated liver cirrhosis with ascites status paracentesis. Anemia looks stable now she had 1 unit of blood transfusion. We will check hemoglobin tomorrow, last time was 6.5 on 05/28 Sodium was low on 05/28 and 128. We recommend fluid restriction and check sodium level tomorrow. Addendum that the patient feels fine and she is smiling denies any other complaint Patient would benefit from ECF upon rehab, possibly early next week Objective - Vital Signs Vital signs: Vital Signs Temp 98.2 F 05/29/24 07:00 Pulse 58 L 05/29/24 07:00 Resp 16 05/29/24 07:00 BP 113/64 05/29/24 07:00 Pulse Ox 98 05/29/24 07:00 FiO2 Intake & Output 05/28/24 05/29/24 05/29/24 18:59 06:59 18:59 Intake Total 695 Output Total 3610 Balance -2915 Intake: Blood Product 295 Rc Irr As1 Unit 295 [id number] Hemodialysis 400 Output: Urine 210 Hemodialysis 1900 Hemodialysis Net Amount 1500 Other: Voiding Method External Catheter External Catheter # Voids 1 - Exam GENERAL: The patient is alert and oriented x3, not in any acute distress. Well developed, well nourished. HEENT: Pupils are round and equally reacting to light. EOMI. No scleral icterus. No conjunctival pallor. Normocephalic, atraumatic. No pharyngeal erythema. No thyromegaly. CARDIOVASCULAR: S1 and S2 present. No murmurs, rubs, or gallops. PULMONARY: Chest is clear to auscultation, no wheezing , no crackles. ABDOMEN: Soft, nontender, nondistended, normoactive bowel sounds. No palpable organomegaly. MUSCULOSKELETAL: No joint swelling or deformity. EXTREMITIES: No cyanosis, clubbing, or pedal edema. NEUROLOGICAL: Gross neurological examination did not reveal any focal deficits. SKIN: No rashes. no petechiae. - Labs CBC & Chem 7: 05/28/24 04:17 05/28/24 04:17 Labs: Abnormal Lab Results - Last 24 Hours (Table) 05/28/24 05/28/24 05/29/24 Range/Units 09:22 19:51 12:14 POC Glucose (mg/dL) 127 H 158 H (70-110) mg/dL Crossmatch See Detail Assessment and Plan Assessment: Acute kidney injury on CKD stage III s/p new hemodialysis on 05/21, thought secondary to hepatorenal syndrome Anemia of chronic disease status 1 unit of blood transfusion on 05/28 Decompensated liver cirrhosis status post paracentesis for her ascites Bilateral lower extremity chronic wounds, diabetic, finished antibiotics with no evidence of infection currently Plan: Continue on Eliquis 2.5 mg Continue with aspirin Continue with blood pressure medication Coreg. Also patient on midodrine 10 mg Nephrology team following closely, dialysis as per nephrology team Patient also monitored her wound, ID team is seeing her. Continue with GI prophylaxis: Protonix DVT prophylaxis on Eliquis Patient will benefit from rehab at [facility]
--- NOTE | 2024-05-29 13:08 | P.PN ---
Subjective Progress Note Date: 05/29/24 Patient is seen for follow-up for acute kidney injury and chronic kidney disease. She has been started on dialysis on 05/21/2024 for worsening renal function, volume overload and oliguria. making some urine, had HD yesterday, tolerated 1.5 L net UF No complaints of shortness of breath today. Objective - Vital Signs Vital signs: Vital Signs Temp 97.9 F 05/29/24 12:16 Pulse 62 05/29/24 12:16 Resp 14 05/29/24 12:16 BP 118/67 05/29/24 12:16 Pulse Ox 99 05/29/24 12:16 FiO2 Intake & Output 05/28/24 05/29/24 05/29/24 18:59 06:59 18:59 Intake Total 695 Output Total 3610 Balance -2915 Intake: Blood Product 295 Rc Irr As1 Unit 295 [id number] Hemodialysis 400 Output: Urine 210 Hemodialysis 1900 Hemodialysis Net Amount 1500 Other: Voiding Method External Catheter External Catheter # Voids 1 - Exam Patient is awake, comfortable, no acute distress. Examination of the heart S1 and S2 Examination of the lungs bilateral breath sounds are heard Abdomen is soft nontender Examination of lower extremities shows 1+ edema [employer] exam grossly intact - Labs CBC & Chem 7: 05/28/24 04:17 05/28/24 04:17 Labs: Abnormal Lab Results - Last 24 Hours (Table) 05/28/24 05/28/24 05/29/24 Range/Units 09:22 19:51 12:14 POC Glucose (mg/dL) 127 H 158 H (70-110) mg/dL Crossmatch See Detail Assessment and Plan Assessment: 1. Acute kidney injury secondary to ATN secondary to hepatorenal syndrome. Creatinine over 7 on admission. No hydronephrosis noted on imaging. Started hemodialysis on 05/21/2024 for worsening renal function and oliguria, right IJ tunneled catheter was placed on 05/27 2. Chronic kidney disease stage IIIb with baseline creatinine near 1.4 from January 2024. 3. Hyperkalemia secondary to acute kidney injury, metabolic acidosis, Entresto and potassium supplementation. Improved. 4. Metabolic acidosis secondary to acute kidney injury. Resolved. 5. Liver cirrhosis. Last paracentesis was May 20, 2024 with 3.5 L drained. 6. Diabetes mellitus. 7. Anemia of chronic kidney disease. Iron replete. On Aranesp. 8. Volume overload, improving Plan: no indication for Hemodialysis today, will plan HD oon Wednesday 05/31 Continue midodrine Continue hemodialysis post discharge and continue to monitor for recovery of renal function.
--- NOTE | 2024-05-29 13:39 | P.PCN ---
Description of Procedure: Preop diagnosis wet gangrene of the right foot second toe Specimen was sent for deep culture Postop the same Procedure ray amputation of the right foot second toe at metatarsophalangeal joint Procedure patient was brought to the operating room right foot was prepped and draped in Prestel manner. Patient had a right foot big toe patient done recently patient came with marked redness dorsum aspect of the foot there was some drainage noted to the right foot second toe CT shows cyst with osteo under anesthesia incision was made on the dorsum aspect of the foot deepened through skin fat and fascia and tendons were divided on the dorsal aspect seizure was extended to the plantar aspect deepened through skin fat and fascia and tendons were divided until we reached the metatarsophalangeal joint ligaments were divided and reimplantation of the second toe was performed there was bleeding point which was electrocoagulated and suture-ligated spec minimal blood loss patient transferred to recovery room satisfactory condition pressure of 125 an IV antibiotic under patient is IV antibiotic under care of infectious disease imen was sent for deep culture wound copiously irrigated with hydroperoxide and saline more time we checked the hemostasis was controlled placed a wound VAC
--- NOTE | 2024-05-29 14:02 | P.PN ---
Subjective Progress Note Date: 05/29/24 Principal diagnosis: Reason for follow-up is lower extremity wound and back/sacral area excoriation 05/26/2024,the patient denies any fever or any chills, patient is breathing com fortably on room air, the patient denies chest pain shortness of breath and no significant cough, patient denies abdominal pain, no nausea vomiting or diarrhea, admitted to hospital with worsening kidney function has been started on dialysis ID consulted for lower extremity wound. On today's evaluation that is 05/29/2024, patient did not have any fever and denies any chills, patient is breathing comfortably on room air, patient with no chest pain or cough patient did not have any abdominal pain nausea vomiting or any loose stools. No new lab has been obtained today Objective - Vital Signs Vital signs: Vital Signs Temp 97.9 F 05/29/24 12:16 Pulse 62 05/29/24 12:16 Resp 14 05/29/24 12:16 BP 118/67 05/29/24 12:16 Pulse Ox 99 05/29/24 12:16 FiO2 Intake & Output 05/28/24 05/29/24 05/29/24 18:59 06:59 18:59 Intake Total 695 480 Output Total 3610 Balance -2915 480 Intake: Oral 480 Blood Product 295 Rc Irr As1 Unit 295 [id number] Hemodialysis 400 Output: Urine 210 Hemodialysis 1900 Hemodialysis Net Amount 1500 Other: Voiding Method External Catheter External Catheter # Voids 1 - Exam GENERAL DESCRIPTION: An elderly female lying in bed in no distress RESPIRATORY SYSTEM: Unlabored breathing , decreased breath sounds at bases HEART: S1 S2 regular rate and rhythm , ABDOMEN: Soft , no tenderness EXTREMITIES: No edema feet - Labs CBC & Chem 7: 05/28/24 04:17 05/28/24 04:17 Labs: Abnormal Lab Results - Last 24 Hours (Table) 05/28/24 05/28/24 05/29/24 Range/Units 09:22 19:51 12:14 POC Glucose (mg/dL) 127 H 158 H (70-110) mg/dL Crossmatch See Detail Assessment and Plan (1) Excoriation of back Current Visit: Yes Status: Acute Code(s): S20.419A - ABRASION OF UNSPECIFIED BACK WALL OF THORAX, INIT ENCNTR SNOMED Code(s): 60743726 (2) Excoriation of buttock Current Visit: Yes Status: Acute Code(s): S30.810A - ABRASION OF LOWER BACK AND PELVIS, INITIAL ENCOUNTER SNOMED Code(s): 381818156 (3) Type 2 diabetes mellitus with other skin ulcer Current Visit: No Status: Acute Code(s): E11.622 - TYPE 2 DIABETES MELLITUS WITH OTHER SKIN ULCER; L98.499 - NON-PRESSURE CHRONIC ULCER OF SKIN OF SITES W UNSP SEVERITY SNOMED Code(s): 306691195422071 Plan: 1-patient did have a history of left heel osteomyelitis for the patient has completed her antibiotic therapy currently do not have any open wound some indentation but no evidence of any skin breakdown recommended local care with keeping the area of the pressure and dry 2-patient did have significant excoriation of the sacral and the back area for which the patient continue with the current local skin protective cream and will monitor closely of antibiotic therapy, patient did not have any gangrene or amputation during this hospital stay Dictation was produced using [employer] dictation software. please excuse any grammatical, word or spelling errors. Time with Patient: Less than 30
[2024-05-29 17:09] LABS: Glucose,Whole Blood 130 mg/dL (70-110)
[2024-05-29] MEDS: ALBUTEROL NEBULIZED 2.5 MG/3 ML INHALATION PRN (19:51)
[2024-05-29 20:18] LABS: Glucose,Whole Blood 190 mg/dL (70-110)
[2024-05-30 07:09] LABS: Glucose,Whole Blood 133 mg/dL (70-110)
[2024-05-30 09:39] LABS: Basophils # (A) 0.03 X 10*3/uL (0.00-0.10); Basophils % (A) 0.5 %; Eosinophils # (A) 0.72 X 10*3/uL (0.04-0.35); HCT 21.9 % (37.2-46.3); HGB 6.9 g/dL (12.0-15.0); Lymphocytes # (A) 1.31 X 10*3/uL (0.90-5.00); Lymphocytes % (A) 20.1 %; MCHC 31.5 g/dL (32.0-37.0); Mean Platelet Volume 10.1 FL (9.5-12.2); Monocytes # (A) 0.65 X 10*3/uL (0.20-1.00); NRBC Per 100 WBC 0 X 10*3/uL (0.00-0.01); Neutrophils # (A) 3.78 X 10*3/uL (1.80-7.70); Neutrophils % (A) 57.9 %; Platelet Count 169 X 10*3/uL (140-440); RBC 2.46 X 10*6/uL (4.10-5.20); WBC 6.52 X 10*3/uL (4.50-10.00)
[2024-05-30 12:02] LABS: Glucose,Whole Blood 227 mg/dL (70-110)
--- NOTE | 2024-05-30 14:18 | P.PN ---
Subjective Progress Note Date: 05/30/24 Patient is seen for follow-up for acute kidney injury and chronic kidney disease. She has been started on dialysis on 05/21/2024 for worsening renal function, volume overload and oliguria. No new complaints. making some urine, total of 400 ml charted Hb 6.9 today, pRBC was ordered Objective - Vital Signs Vital signs: Vital Signs Temp 98.7 F 05/30/24 13:10 Pulse 67 05/30/24 13:10 Resp 16 05/30/24 13:10 BP 114/69 05/30/24 13:10 Pulse Ox 97 05/30/24 12:01 FiO2 Intake & Output 05/29/24 05/30/24 05/30/24 17:59 06:59 18:59 Intake Total 310 Output Total Balance 310 Intake: Oral Blood Product 310 Rc As-1 Unit 310 [id number] Output: Urine Other: Voiding Method - Exam Patient is awake, comfortable, no acute distress. Examination of the heart S1 and S2 Examination of the lungs bilateral breath sounds are heard Abdomen is soft nontender Examination of lower extremities with no significant edema [employer] exam grossly intact - Labs CBC & Chem 7: 05/30/24 04:28 05/28/24 04:17 Labs: Abnormal Lab Results - Last 24 Hours (Table) 05/28/24 05/29/24 05/29/24 Range/Units 09:22 17:07 20:15 RBC (4.10-5.20) X 10*6/uL Hgb (12.0-15.0) g/dL Hct (37.2-46.3) % MCHC (32.0-37.0) g/dL RDW (11.5-14.5) % Eosinophils # (0.04-0.35) X 10*3/uL POC Glucose (mg/dL) 130 H 190 H (70-110) mg/dL Crossmatch See Detail 05/30/24 05/30/24 05/30/24 Range/Units 04: 07:08 12:01 RBC 2.46 L (4.10-5.20) X 10*6/uL Hgb 6.9 A* (12.0-15.0) g/dL Hct 21.9 L (37.2-46.3) % MCHC 31.5 L (32.0-37.0) g/dL RDW 16.0 H (11.5-14.5) % Eosinophils # 0.72 H (0.04-0.35) X 10*3/uL POC Glucose (mg/dL) 133 H 227 H (70-110) mg/dL Crossmatch Assessment and Plan Assessment: 1. Acute kidney injury secondary to ATN secondary to hepatorenal syndrome. Creatinine over 7 on admission. No hydronephrosis noted on imaging. Started hemodialysis on 05/21/2024 for worsening renal function and oliguria, right IJ tunneled catheter was placed on 05/27 2. Chronic kidney disease stage IIIb with baseline creatinine near 1.4 from January 2024. 3. Hyperkalemia secondary to acute kidney injury, metabolic acidosis, Entresto and potassium supplementation. Improved. 4. Metabolic acidosis secondary to acute kidney injury. Resolved. 5. Liver cirrhosis. Last paracentesis was May 20, 2024 with 3.5 L drained. 6. Diabetes mellitus. 7. Anemia of chronic kidney disease. Iron replete. On Aranesp. 8. Volume overload, improving Plan: no indication for Hemodialysis today, will plan HD on Wednesday 05/31 Continue midodrine Continue hemodialysis post discharge and continue to monitor for recovery of renal function.
--- NOTE | 2024-05-30 15:11 | P.PN ---
Subjective this is an 78-year-old white female who is admitted secondary to renal failure. She is now on dialysis. Parenting catheter is being placed due to the nature of her treatment. Patient renal disease is presumed secondary to hepatorenal syndrome related to her decompensated liver cirrhosis with ascites status paracentesis. Anemia looks stable now she had 1 unit of blood transfusion. We will check hemoglobin tomorrow, last time was 6.5 on 05/28 Sodium was low on 05/28 and 128. We recommend fluid restriction and check sodium level tomorrow. Addendum that the patient feels fine and she is smiling denies any other complaint Patient would benefit from ECF upon rehab, possibly early next week 05/30 Patient feels fine No chest pain or dyspnea Hemoglobin today 6.9, it was 6.5 few days ago, she got the second unit of blood transfusion today, first 1 was a few days at that time Monitor hemoglobin in the morning Objective - Vital Signs Vital signs: Vital Signs Temp 98.7 F 05/30/24 13:10 Pulse 67 05/30/24 13:10 Resp 16 05/30/24 13:10 BP 114/69 05/30/24 13:10 Pulse Ox 97 05/30/24 12:01 FiO2 Intake & Output 05/29/24 05/30/24 05/30/24 17:59 06:59 18:59 Intake Total 310 Output Total Balance 310 Intake: Oral Blood Product 310 Rc As-1 Unit 310 [id number] Output: Urine Other: Voiding Method - Exam GENERAL: The patient is alert and oriented x3, not in any acute distress. Well developed, well nourished. HEENT: Pupils are round and equally reacting to light. EOMI. No scleral icterus. No conjunctival pallor. Normocephalic, atraumatic. No pharyngeal erythema. No thyromegaly. CARDIOVASCULAR: S1 and S2 present. No murmurs, rubs, or gallops. PULMONARY: Chest is clear to auscultation, no wheezing , no crackles. ABDOMEN: Soft, nontender, nondistended, normoactive bowel sounds. No palpable organomegaly. MUSCULOSKELETAL: No joint swelling or deformity. EXTREMITIES: No cyanosis, clubbing, or pedal edema. NEUROLOGICAL: Gross neurological examination did not reveal any focal deficits. SKIN: No rashes. no petechiae. - Labs CBC & Chem 7: 03/09/25 04:28 05/28/24 04:17 Labs: Abnormal Lab Results - Last 24 Hours (Table) 05/28/24 05/29/24 05/29/24 Range/Units 09:22 17:07 20:15 RBC (4.10-5.20) X 10*6/uL Hgb (12.0-15.0) g/dL Hct (37.2-46.3) % MCHC (32.0-37.0) g/dL RDW (11.5-14.5) % Eosinophils # (0.04-0.35) X 10*3/uL POC Glucose (mg/dL) 130 H 190 H (70-110) mg/dL Crossmatch See Detail 05/30/24 05/30/24 05/30/24 Range/Units 04:28 07:08 12:01 RBC 2.46 L (4.10-5.20) X 10*6/uL Hgb 6.9 A* (12.0-15.0) g/dL Hct 21.9 L (37.2-46.3) % MCHC 31.5 L (32.0-37.0) g/dL RDW 16.0 H (11.5-14.5) % Eosinophils # 0.72 H (0.04-0.35) X 10*3/uL POC Glucose (mg/dL) 133 H 227 H (70-110) mg/dL Crossmatch Assessment and Plan Assessment: Acute kidney injury on CKD stage III s/p new hemodialysis on 05/21, thought secondary to hepatorenal syndrome Anemia of chronic disease status 1 unit of blood transfusion on 05/28 Decompensated liver cirrhosis status post paracentesis for her ascites Bilateral lower extremity chronic wounds, diabetic, finished antibiotics with no evidence of infection currently Plan: Continue on Eliquis 2.5 mg Continue with aspirin Continue with blood pressure medication Coreg. Also patient on midodrine 10 mg Nephrology team following closely, dialysis as per nephrology team Patient also monitored her wound, ID team is seeing her. Continue with GI prophylaxis: Protonix DVT prophylaxis on Eliquis Patient will benefit from rehab at [facility]
--- NOTE | 2024-05-30 15:41 | P.PN ---
Subjective Progress Note Date: 05/30/24 Principal diagnosis: Reason for follow-up is lower extremity wound and back/sacral area excoriation 05/26/2024,the patient denies any fever or any chills, patient is breathing com fortably on room air, the patient denies chest pain shortness of breath and no significant cough, patient denies abdominal pain, no nausea vomiting or diarrhea, admitted to hospital with worsening kidney function has been started on dialysis ID consulted for lower extremity wound. On today's evaluation that is 05/30/2024, Patient is afebrile patient is currently on room air and denies having any shortness of breath, the patient denies any chest pain or cough, the patient denies any nausea vomiting did not have any abdominal pain and no diarrhea or any pain to the lower extremity. Patient white count 6.52 Objective - Vital Signs Vital signs: Vital Signs Temp 98.7 F 05/30/24 13:10 Pulse 67 05/30/24 13:10 Resp 16 05/30/24 13:10 BP 114/69 05/30/24 13:10 Pulse Ox 97 05/30/24 12:01 FiO2 Intake & Output 05/29/24 05/30/24 05/30/24 17:59 06:59 18:59 Intake Total 310 Output Total Balance 310 Intake: Oral Blood Product 310 Rc As-1 Unit 310 [id number] Output: Urine Other: Voiding Method - Exam GENERAL DESCRIPTION: An elderly female lying in bed in no distress RESPIRATORY SYSTEM: Unlabored breathing , decreased breath sounds at bases HEART: S1 S2 regular rate and rhythm , ABDOMEN: Soft , no tenderness EXTREMITIES: No edema feet - Labs CBC & Chem 7: 05/30/24 04:28 05/28/24 04:17 Labs: Abnormal Lab Results - Last 24 Hours (Table) 05/28/24 05/29/24 05/29/24 Range/Units 09:22 17:07 20:15 RBC (4.10-5.20) X 10*6/uL Hgb (12.0-15.0) g/dL Hct (37.2-46.3) % MCHC (32.0-37.0) g/dL RDW (11.5-14.5) % Eosinophils # (0.04-0.35) X 10*3/uL POC Glucose (mg/dL) 130 H 190 H (70-110) mg/dL Crossmatch See Detail 05/30/24 05/30/24 05/30/24 Range/Units 04:28 07:08 12:01 RBC 2.46 L (4.10-5.20) X 10*6/uL Hgb 6.9 A* (12.0-15.0) g/dL Hct 21.9 L (37.2-46.3) % MCHC 31.5 L (32.0-37.0) g/dL RDW 16.0 H (11.5-14.5) % Eosinophils # 0.72 H (0.04-0.35) X 10*3/uL POC Glucose (mg/dL) 133 H 227 H (70-110) mg/dL Crossmatch Assessment and Plan (1) Excoriation of back Current Visit: Yes Status: Acute Code(s): S20.419A - ABRASION OF UNSPECIFIED BACK WALL OF THORAX, INIT ENCNTR SNOMED Code(s): 87519823 (2) Excoriation of buttock Current Visit: Yes Status: Acute Code(s): S30.810A - ABRASION OF LOWER BACK AND PELVIS, INITIAL ENCOUNTER SNOMED Code(s): 149536391 (3) Type 2 diabetes mellitus with other skin ulcer Current Visit: No Status: Acute Code(s): E11.622 - TYPE 2 DIABETES MELLITUS WITH OTHER SKIN ULCER; L98.499 - NON-PRESSURE CHRONIC ULCER OF SKIN OF SITES W UNSP SEVERITY SNOMED Code(s): 725033478903899 Plan: 1-patient did have a history of left heel osteomyelitis for the patient has completed her antibiotic therapy currently do not have any open wound some indentation but no evidence of any skin breakdown recommended local care with keeping the area of the pressure and dry 2-patient did have significant excoriation of the sacral and the back area for which the patient continue with the current local skin protective cream 3the patient remains to be afebrile white count is normal, monitor closely off antibiotic therapy Dictation was produced using [employer] software. please excuse any grammatical, word or spelling errors. Time with Patient: Less than 30
[2024-05-30 16:57] LABS: Glucose,Whole Blood 181 mg/dL (70-110)
[2024-05-30] MEDS: INSULIN LISPRO (HumaLOG) 100 UNIT/ML 10 mL VL SQ SCH (18:24)
[2024-05-30 20:21] LABS: Glucose,Whole Blood 202 mg/dL (70-110)
[2024-05-31] MEDS ORDERED: ONDANSETRON 4 MG/2 ML VIAL IVP PRN (00:33)
[2024-05-31 07:01] LABS: Glucose,Whole Blood 115 mg/dL (70-110)
--- NOTE | 2024-05-31 08:14 | P.PN ---
Subjective Patient is seen in follow-up for acute kidney injury on chronic kidney disease. Started on hemodialysis May 21, 2024. States she has been making little urine. No chest pain or shortness of breath. Vital signs are stable. General: No acute distress. HEENT: Head exam is unremarkable. LUNGS: No audible rhonchi or wheezes. HEART: Rate and Rhythm are regular. ABDOMEN: Nontender. EXTREMITITES: 1+ edema. Chronic changes noted. Objective - Vital Signs Vital signs: Vital Signs Temp 98.1 F 05/31/24 07:01 Pulse 62 05/31/24 07:01 Resp 16 05/31/24 07:01 BP 124/62 05/31/24 07:01 Pulse Ox 98 05/31/24 07:01 FiO2 Intake & Output 05/30/24 05/31/24 05/31/24 18:59 06:59 18:59 Intake Total 790 590 Output Total 200 Balance 590 590 Intake: Oral 480 590 Blood Product 310 Rc As-1 Unit 310 [id number] Output: Urine 200 Other: Voiding Method External Catheter - Labs CBC & Chem 7: 05/30/24 04:28 05/28/24 04:17 Labs: Abnormal Lab Results - Last 24 Hours (Table) 05/28/24 05/30/24 05/30/24 Range/Units 09:22 04:28 12:01 RBC 2.46 L (4.10-5.20) X 10*6/uL Hgb 6.9 A* (12.0-15.0) g/dL Hct 21.9 L (37.2-46.3) % MCHC 31.5 L (32.0-37.0) g/dL RDW 16.0 H (11.5-14.5) % Eosinophils # 0.72 H (0.04-0.35) X 10*3/uL POC Glucose (mg/dL) 227 H (70-110) mg/dL Crossmatch See Detail 05/30/24 05/30/24 05/31/24 Range/Units 16:56 20:20 06:59 RBC (4.10-5.20) X 10*6/uL Hgb (12.0-15.0) g/dL Hct (37.2-46.3) % MCHC (32.0-37.0) g/dL RDW (11.5-14.5) % Eosinophils # (0.04-0.35) X 10*3/uL POC Glucose (mg/dL) 181 H 202 H 115 H (70-110) mg/dL Crossmatch Assessment and Plan Plan: Assessment: 1. Acute kidney injury secondary to ATN secondary to hepatorenal syndrome. Creatinine over 7 on admission. No hydronephrosis noted on imaging. Started on hemodialysis May 21, 2024. Now has permacath. 2. Chronic kidney disease stage IIIb with baseline creatinine near 1.4 from January 2024. 3. Hyperkalemia secondary to acute kidney injury, metabolic acidosis, Entresto and potassium supplementation. Improved. 4. Metabolic acidosis secondary to acute kidney injury. Resolved. 5. Liver cirrhosis. 6. Diabetes mellitus. 7. Anemia of chronic kidney disease. Iron replete. On Aranesp. 8. Volume overload. Last paracentesis was May 20, 2024 with 3.5 L drained. Plan: Showed hemodialysis today and another treatment tomorrow. She will be maintained on Friday schedule outpatient. Add torsemide 40 mg once daily. Maintain midodrine. Monitor for renal recovery outpatient.
[2024-05-31 08:16] LABS: BUN/Creat Ratio 8.52 Ratio (12.00-20.00); Blood Urea Nitrogen 35.8 mg/dL (9.0-27.0); Glucose 107 mg/dL (70-110)
[2024-05-31 08:17] LABS: Calcium 7.7 mg/dL (8.7-10.3); Carbon Dioxide 24.2 mmol/L (21.6-31.8); Chloride 93 mmol/L (96-109); Potassium 4.3 mmol/L (3.5-5.5); Sodium 127 mmol/L (135-145)
--- NOTE | 2024-05-31 08:27 | P.PN ---
Subjective Progress Note Date: 05/31/24 This is an 86-year-old female who was undergoing an outpatient paracentesis when she felt dizzy and lightheaded and was found to be hyperkalemic. Patient also found to have an acute kidney injury with a BUN of 116 and creatinine of 7.20 on admission. Patient had a hemodialysis catheter placed by vascular surgery and has been getting hemodialysis. Patient seen this morning resting comfortably in bed with hemodiaysis running. Her kidney function is slowly improving. 05/25/2024 Patient seen and evaluated sitting up in bed this morning. She did have hemodialysis yesterday. Blood pressure has been stable. Labs are not back from today at time of dictation. Patient concerned for chronic wounds on her bilateral lower extremities. 05/27/2024 Patient seen this morning laying in bed resting comfortably. She just had a new dialysis catheter placed. Patient reports she is feeling well today. 05/31/2024 Patient seen and examined sitting up eating breakfast this morning. Her hemoglobin dropped over the weekend to 6.5 and then went up to 6.9. Patient has received 2 units of packed red blood cells over the weekend. Her labs are not back at time of dictation. Objective - Vital Signs Vital signs: Vital Signs Temp 98.1 F 05/31/24 07:01 Pulse 62 05/31/24 07:01 Resp 16 05/31/24 07:01 BP 124/62 05/31/24 07:01 Pulse Ox 98 05/31/24 07:01 FiO2 Intake & Output 05/30/24 05/31/24 05/31/24 18:59 06:59 18:59 Intake Total 790 590 Output Total 200 Balance 590 590 Intake: Oral 480 590 Blood Product 310 Rc As-1 Unit 310 [id number] Output: Urine 200 Other: Voiding Method External Catheter - Constitutional General appearance: Present: cooperative, no acute distress - EENT Eyes: Present: PERRLA - Neck Neck: Present: normal ROM. Absent: lymphadenopathy, rigidity - Respiratory Respiratory: bilateral: diminished - Cardiovascular Heart sounds: normal: S1, S2 - Gastrointestinal General gastrointestinal: Present: soft. Absent: tenderness - Integumentary Integumentary: Present: normal, normal turgor - Musculoskeletal Musculoskeletal: Present: generalized weakness - Psychiatric Psychiatric: Present: A&O x's 3 - Labs CBC & Chem 7: 05/30/24 04:28 05/31/24 04:20 Labs: Abnormal Lab Results - Last 24 Hours (Table) 05/28/24 05/30/24 05/30/24 Range/Units 09:22 04:28 12:01 RBC 2.46 L (4.10-5.20) X 10*6/uL Hgb 6.9 A* (12.0-15.0) g/dL Hct 21.9 L (37.2-46.3) % MCHC 31.5 L (32.0-37.0) g/dL RDW 16.0 H (11.5-14.5) % Eosinophils # 0.72 H (0.04-0.35) X 10*3/uL Sodium (135-145) mmol/L Chloride (96-109) mmol/L BUN (9.0-27.0) mg/dL Creatinine (0.6-1.5) mg/dL Est GFR (CKD-EPI) (>=60) BUN/Creatinine Ratio (12.00-20.00) Ratio POC Glucose (mg/dL) 227 H (70-110) mg/dL Calcium (8.7-10.3) mg/dL Crossmatch See Detail 05/30/24 05/30/24 05/31/24 Range/Units 16:56 20:20 04:20 RBC (4.10-5.20) X 10*6/uL Hgb (12.0-15.0) g/dL Hct (37.2-46.3) % MCHC (32.0-37.0) g/dL RDW (11.5-14.5) % Eosinophils # (0.04-0.35) X 10*3/uL Sodium 127 L (135-145) mmol/L Chloride 93 L (96-109) mmol/L BUN 35.8 H (9.0-27.0) mg/dL Creatinine 4.2 H (0.6-1.5) mg/dL Est GFR (CKD-EPI) 10 L (>=60) BUN/Creatinine Ratio 8.52 L (12.00-20.00) Ratio POC Glucose (mg/dL) 181 H 202 H (70-110) mg/dL Calcium 7.7 L (8.7-10.3) mg/dL Crossmatch 03/10/25 Range/Units 06:59 RBC (4.10-5.20) X 10*6/uL Hgb (12.0-15.0) g/dL Hct (37.2-46.3) % MCHC (32.0-37.0) g/dL RDW (11.5-14.5) % Eosinophils # (0.04-0.35) X 10*3/uL Sodium (135-145) mmol/L Chloride (96-109) mmol/L BUN (9.0-27.0) mg/dL Creatinine (0.6-1.5) mg/dL Est GFR (CKD-EPI) (>=60) BUN/Creatinine Ratio (12.00-20.00) Ratio POC Glucose (mg/dL) 115 H (70-110) mg/dL Calcium (8.7-10.3) mg/dL Crossmatch Assessment and Plan (1) Acute kidney injury Current Visit: Yes Status: Acute Code(s): N17.9 - ACUTE KIDNEY FAILURE, UNSPECIFIED SNOMED Code(s): 61810820 (2) CKD (chronic kidney disease) Current Visit: Yes Status: Acute Code(s): N18.9 - CHRONIC KIDNEY DISEASE, UNSPECIFIED SNOMED Code(s): 365809904 (3) Hyperkalemia Current Visit: Yes Status: Acute Code(s): E87.5 - HYPERKALEMIA SNOMED Code(s): 84108407 (4) Ascites Current Visit: No Status: Acute Code(s): R18.8 - OTHER ASCITES SNOMED Code(s): 427841660 (5) Atrial fibrillation Current Visit: No Status: Acute Code(s): I48.91 - UNSPECIFIED ATRIAL FIBRILLATION SNOMED Code(s): 82425909 (6) CAD (coronary artery disease) Current Visit: No Status: Acute Code(s): I25.10 - ATHSCL HEART DISEASE OF [place] CORONARY ARTERY W/O ANG PCTRS SNOMED Code(s): 55900283 (7) Chronic wound Current Visit: No Status: Acute Code(s): T14.8XXA - OTHER INJURY OF UNSPECIFIED BODY REGION, INITIAL ENCOUNTER SNOMED Code(s): 30886540929724 (8) Diabetes Current Visit: No Status: Acute Code(s): E11.9 - TYPE 2 DIABETES MELLITUS WITHOUT COMPLICATIONS SNOMED Code(s): 42851243 (9) Hyperlipidemia Current Visit: No Status: Acute Code(s): E78.5 - HYPERLIPIDEMIA, UNSPECIFIED SNOMED Code(s): 74352126 Plan: Await CBC result from today. Check CBC and CMP in the morning. Appreciate multiple consultants. Patient seen and evaluated by nurse practitioner, physician in agreement with plan.
[2024-05-31 09:02] LABS: Basophils # (A) 0.05 X 10*3/uL (0.00-0.10); Basophils % (A) 0.8 %; Eosinophils % (A) 10.7 %; HCT 24.9 % (37.2-46.3); HGB 8.1 g/dL (12.0-15.0); Lymphocytes # (A) 1.35 X 10*3/uL (0.90-5.00); Lymphocytes % (A) 20.7 %; MCH 28.7 pg (27.0-32.0); MCHC 32.5 g/dL (32.0-37.0); MCV 88.3 FL (80.0-97.0); Mean Platelet Volume 10.3 FL (9.5-12.2); Monocytes # (A) 0.72 X 10*3/uL (0.20-1.00); NRBC Per 100 WBC 0 X 10*3/uL (0.00-0.01); Neutrophils # (A) 3.68 X 10*3/uL (1.80-7.70); Neutrophils % (A) 56.3 %; Platelet Count 177 X 10*3/uL (140-440); RBC 2.82 X 10*6/uL (4.10-5.20); RDW 15.3 % (11.5-14.5); WBC 6.53 X 10*3/uL (4.50-10.00)
[2024-05-31] MEDS: TORSEMIDE 20 MG TAB PO SCH (09:23)
[2024-05-31 12:04] LABS: Glucose,Whole Blood 166 mg/dL (70-110)
[2024-05-31 16:01] VITALS: BP 107/65; PULSE 55; RESP 16; TEMP 97.8
--- NOTE | 2024-05-31 16:19 | P.PN ---
Subjective Progress Note Date: 05/31/24 Principal diagnosis: Reason for follow-up is lower extremity wound and back/sacral area excoriation 05/26/2024,the patient denies any fever or any chills, patient is breathing com fortably on room air, the patient denies chest pain shortness of breath and no significant cough, patient denies abdominal pain, no nausea vomiting or diarrhea, admitted to hospital with worsening kidney function has been started on dialysis ID consulted for lower extremity wound. On today's evaluation that is 05/31/2024, patient has been afebrile, patient is breathing comfortably and is currently on room air, patient denies having any significant cough no chest pain, patient denies nausea vomiting or diarrhea and no abdominal pain. Patient white count 6.53, creatinine is 4.2 Objective - Vital Signs Vital signs: Vital Signs Temp 97.8 F 05/31/24 15:39 Pulse 55 L 05/31/24 15:39 Resp 16 05/31/24 15:39 BP 107/65 05/31/24 15:39 Pulse Ox 96 05/31/24 12:58 FiO2 Intake & Output 05/30/24 05/31/24 05/31/24 18:59 06:59 18:59 Intake Total 790 590 400 Output Total 200 1400 Balance 590 590 -1000 Intake: Oral 480 590 Blood Product 310 Rc As-1 Unit 310 [id number] Hemodialysis 400 Output: Urine 200 Hemodialysis 900 Hemodialysis Net Amount 500 Other: Voiding Method External Catheter External Catheter - Exam GENERAL DESCRIPTION: An elderly female lying in bed in no distress RESPIRATORY SYSTEM: Unlabored breathing , decreased breath sounds at bases HEART: S1 S2 regular rate and rhythm , ABDOMEN: Soft , no tenderness EXTREMITIES: No edema feet - Labs CBC & Chem 7: 05/31/24 04:20 05/31/24 04:20 Labs: Abnormal Lab Results - Last 24 Hours (Table) 05/30/24 05/30/24 05/31/24 Range/Units 16:56 20:20 04:20 RBC (4.10-5.20) X 10*6/uL Hgb (12.0-15.0) g/dL Hct (37.2-46.3) % RDW (11.5-14.5) % Eosinophils # (0.04-0.35) X 10*3/uL Sodium 127 L (135-145) mmol/L Chloride 93 L (96-109) mmol/L BUN 35.8 H (9.0-27.0) mg/dL Creatinine 4.2 H (0.6-1.5) mg/dL Est GFR (CKD-EPI) 10 L (>=60) BUN/Creatinine Ratio 8.52 L (12.00-20.00) Ratio POC Glucose (mg/dL) 181 H 202 H (70-110) mg/dL Calcium 7.7 L (8.7-10.3) mg/dL 05/31/24 05/31/24 05/31/24 Range/Units 04:20 06:59 12:03 RBC 2.82 L (4.10-5.20) X 10*6/uL Hgb 8.1 L (12.0-15.0) g/dL Hct 24.9 L (37.2-46.3) % RDW 15.3 H (11.5-14.5) % Eosinophils # 0.70 H (0.04-0.35) X 10*3/uL Sodium (135-145) mmol/L Chloride (96-109) mmol/L BUN (9.0-27.0) mg/dL Creatinine (0.6-1.5) mg/dL Est GFR (CKD-EPI) (>=60) BUN/Creatinine Ratio (12.00-20.00) Ratio POC Glucose (mg/dL) 115 H 166 H (70-110) mg/dL Calcium (8.7-10.3) mg/dL Assessment and Plan (1) Excoriation of back Current Visit: Yes Status: Acute Code(s): S20.419A - ABRASION OF UNSPECIFIED BACK WALL OF THORAX, INIT ENCNTR SNOMED Code(s): 95455450 (2) Excoriation of buttock Current Visit: Yes Status: Acute Code(s): S30.810A - ABRASION OF LOWER BACK AND PELVIS, INITIAL ENCOUNTER SNOMED Code(s): 564132399 (3) Type 2 diabetes mellitus with other skin ulcer Current Visit: No Status: Acute Code(s): E11.622 - TYPE 2 DIABETES MELLITUS WITH OTHER SKIN ULCER; L98.499 - NON-PRESSURE CHRONIC ULCER OF SKIN OF SITES W UNSP SEVERITY SNOMED Code(s): 550337732168393 Plan: 1-patient did have a history of left heel osteomyelitis for the patient has completed her antibiotic therapy currently do not have any open wound some indentation but no evidence of any skin breakdown recommended local care with keeping the area of the pressure and dry 2-patient did have significant excoriation of the sacral and the back area for which the patient continue with the current local skin protective cream and seem to be doing well hence we will monitor closely off antibiotics at this point Dictation was produced using [employer] dictation software. please excuse any grammatical, word or spelling errors. Time with Patient: Less than 30
[2024-05-31 17:06] LABS: Glucose,Whole Blood 140 mg/dL (70-110)
--- NOTE | 2024-06-08 18:38 | P.DS ---
Providers Date of admission: 05/20/24 14:31 Attending physician: Luis Shirley Consults: 05/20/24 14:26 Consult Physician Stat Consulting Provider: Renetta Kennedy Consult Reason/Comments: acute kidney failure, acute hyperkalemia Do you want consulting provider notified?: Already Contacted Consult Physician Urgent Consulting Provider: Roc Coyne Consult Reason/Comments: jony/ckd, acute hyperkalemia Do you want consulting provider notified?: Already Contacted 05/20/24 15:15 Consult Physician Stat Consulting Provider: Miah Maria Consult Reason/Comments: dialysis catheter placement Do you want consulting provider notified?: Already Contacted 05/25/24 08:33 Consult Physician Routine Consulting Provider: Jenae Bowman Consult Reason/Comments: chronic wounds bilateral lower extremities Do you want consulting provider notified?: Yes 05/25/24 11:43 Consult Physician Urgent Consulting Provider: Miah Maria Consult Reason/Comments: IJ Permacath placement Do you want consulting provider notified?: Yes 05/30/24 18:49 Consult Physician Routine Consulting Provider: Ashvin Cummins Consult Reason/Comments: Clip Toenails to fit in boot Do you want consulting provider notified?: Yes Primary care physician: Luis Shirley - Discharge Diagnosis(es) (1) Acute kidney injury Status: Acute (2) CKD (chronic kidney disease) Status: Acute (3) Hyperkalemia Status: Acute (4) Ascites Status: Acute (5) Atrial fibrillation Status: Acute (6) Diabetes Status: Acute (7) Hypotension Status: Acute Hospital Course: This is a discharge summary on a patient who was admitted with history of ascites found to have significant shortness of breath with renal failure. The patient was stabilized with appropriate cardiology and nephrology now on dialysis with an element of ESRD. The patient is unfortunately bed ridden and was transferred to [facility] where she currently resides. Patient Condition at Discharge: Serious Plan - Discharge Summary New Discharge Prescriptions: New Darbepoetin Fernando [Aranesp] 40 mcg SQ Q7D #4 each Midodrine [ProAmatine] 10 mg PO AC-TID #90 tab Continue Ipratropium [place] [Atrovent Hfa] 2 puff INHALATION RT-QID ALPRAZolam [Xanax] 0.25 mg PO TID PRN PRN Reason: Anxiety Aspirin 81 mg PO DAILY Atorvastatin [Lipitor] 20 mg PO DAILY Escitalopram [Lexapro] 10 mg PO DAILY Furosemide [Lasix] 80 mg PO DAILY Insulin Glargine,Hum.rec.anlog [Toujeo Max Solostar] 16 - 18 units SQ HS Insulin Glargine,Hum.rec.anlog [Toujeo Max Solostar] 24 units SQ DAILY Potassium Chloride ER [K-Dur 20] 20 meq PO DAILY carvediloL [Coreg] 3.125 mg PO BID Albuterol Inhaler [Ventolin Hfa Inhaler] 2 puff INHALATION RT-QID PRN PRN Reason: Shortness Of Breath Sodium Bicarbonate Tab 650 mg PO BID #60 tab Torsemide [Demadex] 40 mg PO DAILY #30 tab Menthol-Zinc Oxide Oint [Calmoseptine Ointment] 1 applic TOPICAL DIRECTED Periguard Ointment 1 applic TOPICAL DIRECTED Vits A and D/White Pet/Lanolin [A and D Ointment] 1 applic TOPICAL DAILY PRN PRN Reason: itching back traMADol HCL 50 mg PO TID PRN PRN Reason: Pain Apixaban [Eliquis] 5 mg PO BID Sacubitril/Valsartan [Entresto 24 mg-26 mg Tablet] 1 tab PO BID Omeprazole [PriLOSEC] 20 mg PO DAILY Ammonium Lactate Lotion [Lac-Hydrin 12% Lotion] 1 applic TOPICAL BID PRN PRN Reason: DRY ITCHY SKIN Cholecalciferol [Vitamin D3 (25 Mcg = 1000 Iu)] 25 mcg PO DAILY Multivit-Min/FA/Lycopen/Lutein [Centrum Silver Tablet] 1 tab PO DAILY Vit C/E/Zn/Coppr/Lutein/Zeaxan [Preservision Areds 2 Softgel] 1 cap PO BID Ascorbic Acid [Vitamin C] 1,000 mg PO DAILY Magnesium Oxide [Mag-Ox] 400 mg PO DAILY #30 tab Nystatin 100,000Unit/gm Cream [Mycostatin Cream] 1 applic TOPICAL BID #60 g Metoprolol Tartrate [Lopressor] 12.5 mg PO BID Discharge Medication List Apixaban [Eliquis] 5 mg PO BID 08/13/20 [History] Sacubitril/Valsartan [Entresto 24 mg-26 mg Tablet] 1 tab PO BID 01/12/22 [History] Omeprazole [PriLOSEC] 20 mg PO DAILY 03/05/22 [History] Ipratropium [place] [Atrovent Hfa] 2 puff INHALATION RT-QID 09/09/22 [History] ALPRAZolam [Xanax] 0.25 mg PO TID PRN 05/30/23 [History] Ammonium Lactate Lotion [Lac-Hydrin 12% Lotion] 1 applic TOPICAL BID PRN 05/30/23 [History] Aspirin 81 mg PO DAILY 05/30/23 [History] Atorvastatin [Lipitor] 20 mg PO DAILY 05/30/23 [History] Cholecalciferol [Vitamin D3 (25 Mcg = 1000 Iu)] 25 mcg PO DAILY 05/30/23 [History] Escitalopram [Lexapro] 10 mg PO DAILY 05/30/23 [History] Furosemide [Lasix] 80 mg PO DAILY 05/30/23 [History] Insulin Glargine,Hum.rec.anlog [Toujeo Max Solostar] 16 - 18 units SQ HS 05/30/23 [History] Insulin Glargine,Hum.rec.anlog [Toujeo Max Solostar] 24 units SQ DAILY 05/30/23 [History] Multivit-Min/FA/Lycopen/Lutein [Centrum Silver Tablet] 1 tab PO DAILY 05/30/23 [History] Potassium Chloride ER [K-Dur 20] 20 meq PO DAILY 05/30/23 [History] Albuterol Inhaler [Ventolin Hfa Inhaler] 2 puff INHALATION RT-QID PRN 01/09/24 [History] Ascorbic Acid [Vitamin C] 1,000 mg PO DAILY 01/09/24 [History] Vit C/E/Zn/Coppr/Lutein/Zeaxan [Preservision Areds 2 Softgel] 1 cap PO BID 01/09/24 [History] carvediloL [Coreg] 3.125 mg PO BID 01/09/24 [History] Magnesium Oxide [Mag-Ox] 400 mg PO DAILY #30 tab 01/16/24 [Rx] Nystatin 100,000Unit/gm Cream [Mycostatin Cream] 1 applic TOPICAL BID #60 g 01/16/24 [Rx] Sodium Bicarbonate Tab 650 mg PO BID #60 tab 01/16/24 [Rx] Torsemide [Demadex] 40 mg PO DAILY #30 tab 01/16/24 [Rx] Metoprolol Tartrate [Lopressor] 12.5 mg PO BID 01/30/24 [History] Menthol-Zinc Oxide Oint [Calmoseptine Ointment] 1 applic TOPICAL DIRECTED 03/03/24 [History] Periguard Ointment 1 applic TOPICAL DIRECTED 03/03/24 [History] Vits A and D/White Pet/Lanolin [A and D Ointment] 1 applic TOPICAL DAILY PRN 03/03/24 [History] traMADol HCL 50 mg PO TID PRN 05/20/24 [History] Darbepoetin Fernando [Aranesp] 40 mcg SQ Q7D #4 each 05/28/24 [Rx] Midodrine [ProAmatine] 10 mg PO AC-TID #90 tab 05/28/24 [Rx] Follow up Appointment(s)/Referral(s): Luis Shirley MD [Primary Care Provider] - 1 Week Residential Home,Health [NON-STAFF] - 1 Week Discharge/Stand Alone Forms: [facility] Pamphlet, Community Resources, Help In The Home Discharge Disposition: HOME WITH HOME HEALTH SERVICES
== END 2024-05-31 18:07 | disposition home health service (06) | DRG 673 ==
LOC: EC 10:19 → 2SICU 14:31 → 5NMEDONC 05-25 13:57
PROVIDERS: ADMIT Family Medicine; ATTEND Family Medicine
PROC: 02HV33Z Insertion of Infusion Device into Superior Vena Cava, Percutaneous Approach (ICD-10-PCS; 2024-05-20)
PROC: B5181ZA Fluoroscopy of Superior Vena Cava using Low Osmolar Contrast, Guidance (ICD-10-PCS; 2024-05-20)
PROC: B548ZZA Ultrasonography of Superior Vena Cava, Guidance (ICD-10-PCS; 2024-05-20)
PROC: 06PYX3Z Removal of Infusion Device from Lower Vein, External Approach (ICD-10-PCS; 2024-05-20)
PROC: 06HN33Z Insertion of Infusion Device into Left Femoral Vein, Percutaneous Approach (ICD-10-PCS; 2024-05-20)
PROC: 30233N1 Transfusion of Nonautologous Red Blood Cells into Peripheral Vein, Percutaneous Approach (ICD-10-PCS; 2024-05-21)
PROC: 05HB33Z Insertion of Infusion Device into Right Basilic Vein, Percutaneous Approach (ICD-10-PCS; 2024-05-21)
PROC: 5A1D70Z Performance of Urinary Filtration, Intermittent, Less than 6 Hours Per Day (ICD-10-PCS; principal; 2024-05-21 10:30)
PROC: 0W9G3ZZ Drainage of Peritoneal Cavity, Percutaneous Approach (ICD-10-PCS; 2024-05-21 10:30)
PROC: 0JH63XZ Insertion of Tunneled Vascular Access Device into Chest Subcutaneous Tissue and Fascia, Percutaneous Approach (ICD-10-PCS; 2024-05-27)
PROC: 02HV33Z Insertion of Infusion Device into Superior Vena Cava, Percutaneous Approach (ICD-10-PCS; 2024-05-27)
PROC: B5181ZA Fluoroscopy of Superior Vena Cava using Low Osmolar Contrast, Guidance (ICD-10-PCS; 2024-05-27)
PROC: B548ZZA Ultrasonography of Superior Vena Cava, Guidance (ICD-10-PCS; 2024-05-27)
DX: N17.0 Acute kidney failure with tubular necrosis (principal); I50.33 Acute on chronic diastolic (congestive) heart failure; K76.7 Hepatorenal syndrome; E87.21 Acute metabolic acidosis; R18.8 Other ascites; K72.90 Hepatic failure, unspecified without coma; D63.1 Anemia in chronic kidney disease; L89.151 Pressure ulcer of sacral region, stage 1; Z99.2 Dependence on renal dialysis; I13.0 Hypertensive heart and chronic kidney disease with heart failure and stage 1 through stage 4 chronic kidney disease, or unspecified chronic kidney disease; E11.22 Type 2 diabetes mellitus with diabetic chronic kidney disease; F32.A Depression, unspecified; I48.20 Chronic atrial fibrillation, unspecified; E87.1 Hypo-osmolality and hyponatremia; K74.60 Unspecified cirrhosis of liver; K74.69 Other cirrhosis of liver; N18.32 Chronic kidney disease, stage 3b; E11.622 Type 2 diabetes mellitus with other skin ulcer; L98.499 Non-pressure chronic ulcer of skin of other sites with unspecified severity; E11.69 Type 2 diabetes mellitus with other specified complication; E87.5 Hyperkalemia; E78.5 Hyperlipidemia, unspecified; F41.9 Anxiety disorder, unspecified; I25.10 Atherosclerotic heart disease of native coronary artery without angina pectoris; I44.0 Atrioventricular block, first degree; I44.7 Left bundle-branch block, unspecified; Z79.01 Long term (current) use of anticoagulants; S20.412A Abrasion of left back wall of thorax, initial encounter; S20.411A Abrasion of right back wall of thorax, initial encounter; I95.9 Hypotension, unspecified; S30.810A Abrasion of lower back and pelvis, initial encounter; I25.2 Old myocardial infarction; K75.81 Nonalcoholic steatohepatitis (NASH); Z74.01 Bed confinement status; Z79.82 Long term (current) use of aspirin; Z79.899 Other long term (current) drug therapy; Z82.49 Family history of ischemic heart disease and other diseases of the circulatory system; Z86.16 Personal history of COVID-19; Z86.718 Personal history of other venous thrombosis and embolism; Z86.73 Personal history of transient ischemic attack (TIA), and cerebral infarction without residual deficits; Z90.710 Acquired absence of both cervix and uterus; Z98.42 Cataract extraction status, left eye; Z98.41 Cataract extraction status, right eye; Z87.19 Personal history of other diseases of the digestive system; Z98.51 Tubal ligation status; Z91.013 Allergy to seafood; Z88.8 Allergy status to other drugs, medicaments and biological substances; Z91.048 Other nonmedicinal substance allergy status; Z88.2 Allergy status to sulfonamides; Z88.0 Allergy status to penicillin; Z88.5 Allergy status to narcotic agent
CPT/HCPCS: 36410; 36415; 36556; 36558; 49083; 71045; 71046; 76770; 76937; 77001; 80048; 80053; 81001; 82728; 83540; 83550; 83605; 83735; 84100; 84132; 85025; 85027; 86850; 86900; 86901; 86920; 87340; 90935; 93005; 94640; 96365; 96366; 96375; 96376; 99211; 99291

== ENCOUNTER 2024-06-07 08:20 | Day surgery (SDC) | payer MEDICARE, OTHER ==
[2024-06-07 09:24] LABS: Mean Platelet Volume 8.2; Platelet Count 210 k/uL (150-450)
[2024-06-07 09:32] LABS: African American GFR (CKD) 18 (>60 ml/min/1.73 sqM); Non-African American GFR(CKD) 16 (>60 ml/min/1.73 sqM)
[2024-06-07 09:43] LABS: INR 1.1 (<1.2); Prothrombin Time 11.8 sec (10.0-12.5)
[2024-06-07] MEDS: ALBUMIN HUMAN 25% 50 ML in EMPTY BAG 1 BAG IVPB SCH (09:45)
[2024-06-07 09:51] VITALS: RESP 18; TEMP 98.1
[2024-06-07 10:31] VITALS: BP 118/55; PULSE 67
--- NOTE | 2024-06-07 11:16 | US ---
EXAMINATION TYPE: US paracentesis abd w/image DATE OF EXAM: June 07, 2024 COMPARISON: May 21, 2024 prior paracentesis. CLINICAL INDICATION:Female, 78 years old with history of see IR consult for ordering information; , a charles ATTENDING: Dr. Gay PROCEDURE: Informed consent was obtained. The risks of the procedure were extensively explained incl uding risk of damage to surrounding bowel with perforation and need for additional procedures. Proced ure was performed in the patient's ICU room. Ultrasound imaging of the abdomen demonstrate ascitic fl uid. An appropriate access site was localized to the right lower abdomen. Timeout was taken per manny col. The skin was prepped and draped in the usual sterile fashion and then locally anesthetized with 1% lidocaine. The peritoneal cavity was then accessed via a 5-Turkmen one-step needle/catheter. Appr oximately 4900 mL of clear straw-colored fluid was obtained. Patient tolerated procedure well without immediate complication. Hemostasis at the procedural site w as obtained with a sterile bandage placed. The patient was monitored in the holding area following th e procedure and was subsequently discharged in stable condition. IMPRESSION: Ultrasound guided paracentesis, with approximately 4900 mL of clear straw-colored fluid drained for t herapeutic purposes. No immediate complications were evident. [facility], , 06/07/2024 11:13 AM
== END 2024-06-07 10:54 | disposition home or self-care (01) ==
LOC: RADPROMAIN 08:20
PROVIDERS: ATTEND Internal Medicine Gastroenterology
DX: R18.8 Other ascites (principal)
CPT/HCPCS: 82565; 85049; 85610; 36415; 49083; P9047

== ENCOUNTER 2024-06-12 12:02 | Emergency (ER) | payer MEDICARE, OTHER ==
[2024-06-12 12:10] VITALS: TEMP 98.1
--- NOTE | 2024-06-12 12:50 | ED ---
General Adult HPI - General Chief complaint: Recheck/Abnormal Lab/Rx Stated complaint: Low hemoglobin Time Seen by Provider: 06/12/24 12:10 Source: patient, EMS, RN notes reviewed, old records reviewed Mode of arrival: EMS Limitations: no limitations - History of Present Illness Initial comments: This is an 78-year-old female who presents to the emergency department complaining of low hemoglobin. Patient states she went to dialysis today and her hemoglobin was low from a couple days ago so they sent to the emergency department. Patient denies any shortness of breath difficulty breathing or chest pain. Patient denies any abdominal pain patient has any black or bloody stools. Patient denies being on any blood thinners. - Related Data Home Medications Medication Instructions Recorded Confirmed Apixaban [Eliquis] 5 mg PO BID 08/13/20 06/07/24 Sacubitril/Valsartan [Entresto 24 1 tab PO BID 01/12/22 06/07/24 mg-26 mg Tablet] Omeprazole [PriLOSEC] 20 mg PO DAILY 03/05/22 06/07/24 Ipratropium [place] [Atrovent Hfa] 2 puff INHALATION RT-QID 09/09/22 06/07/24 ALPRAZolam [Xanax] 0.25 mg PO TID PRN 05/30/23 06/07/24 Ammonium Lactate Lotion 1 applic TOPICAL BID PRN 05/30/23 06/07/24 [Lac-Hydrin 12% Lotion] Aspirin 81 mg PO DAILY 05/30/23 06/07/24 Atorvastatin [Lipitor] 20 mg PO DAILY 05/30/23 06/07/24 Cholecalciferol [Vitamin D3 (25 25 mcg PO DAILY 05/30/23 06/07/24 Mcg = 1000 Iu)] Escitalopram [Lexapro] 10 mg PO DAILY 05/30/23 06/07/24 Furosemide [Lasix] 80 mg PO DAILY 05/30/23 06/07/24 Insulin Glargine,Hum.rec.anlog 16 - 18 units SQ HS 05/30/23 06/07/24 [Toujeo Max Solostar] Insulin Glargine,Hum.rec.anlog 24 units SQ DAILY 05/30/23 06/07/24 [Toujeo Max Solostar] Multivit-Min/FA/Lycopen/Lutein 1 tab PO DAILY 05/30/23 06/07/24 [Centrum Silver Tablet] Potassium Chloride ER [K-Dur 20] 20 meq PO DAILY 05/30/23 06/07/24 Albuterol Inhaler [Ventolin Hfa 2 puff INHALATION RT-QID PRN 01/09/24 06/07/24 Inhaler] Ascorbic Acid [Vitamin C] 1,000 mg PO DAILY 01/09/24 06/07/24 Vit C/E/Zn/Coppr/Lutein/Zeaxan 1 cap PO BID 01/09/24 06/07/24 [Preservision Areds 2 Softgel] carvediloL [Coreg] 3.125 mg PO BID 01/09/24 06/07/24 Metoprolol Tartrate [Lopressor] 12.5 mg PO BID 01/30/24 06/07/24 Menthol-Zinc Oxide Oint 1 applic TOPICAL DIRECTED 03/03/24 06/07/24 [Calmoseptine Ointment] Periguard Ointment 1 applic TOPICAL DIRECTED 03/03/24 06/07/24 Vits A and D/White Pet/Lanolin [A 1 applic TOPICAL DAILY PRN 03/03/24 06/07/24 and D Ointment] traMADol HCL 50 mg PO TID PRN 05/20/24 06/07/24 Previous Rx's Medication Instructions Recorded Magnesium Oxide [Mag-Ox] 400 mg PO DAILY #30 tab 01/16/24 Nystatin 100,000Unit/gm Cream 1 applic TOPICAL BID #60 g 01/16/24 [Mycostatin Cream] Sodium Bicarbonate Tab 650 mg PO BID #60 tab 01/16/24 Torsemide [Demadex] 40 mg PO DAILY #30 tab 01/16/24 Darbepoetin Fernando [Aranesp] 40 mcg SQ Q7D #4 each 05/28/24 Midodrine [ProAmatine] 10 mg PO AC-TID #90 tab 05/28/24 Allergies Allergy/AdvReac Type Severity Reaction Status Date / Time shellfish derived [Shellfish] Allergy Severe vomiting Verified 06/12/24 12:10 -very ill adhesive Allergy skin red Verified 06/12/24 12:10 and murguia, tears skin aluminum Allergy skin turns Verified 06/12/24 12:10 black, passes out Antihistamines - Allergy heart Verified 06/12/24 12:10 Ethylenediamine palpitations codeine Allergy migraines Verified 06/12/24 12:10 epinephrine Allergy heart Verified 06/12/24 12:10 palpitations fluticasone [From Flonase] Allergy Unknown Verified 06/12/24 12:10 hydrogen peroxide Allergy murguia and Verified 06/12/24 12:10 causes infection latex Allergy passes out Verified 06/12/24 12:10 nickel Allergy turns skin Verified 06/12/24 12:10 black and passes out procaine HCl [From Novocain] Allergy passed Verified 06/12/24 12:10 out- due to epinephrine in it. thiopental sodium Allergy needed cpr Verified 06/12/24 12:10 [From Pentothal] resusitation iron AdvReac Nausea Verified 06/12/24 12:10 methocarbamol [From Robaxin] AdvReac Hallucinati Verified 06/12/24 12:10 ons zinc oxide AdvReac Rash/Hives Verified 06/12/24 12:10 surgical felicita Allergy Severe had to be Uncoded 06/12/24 12:10 removed 2 days post-op petroleum products AdvReac passes out Uncoded 06/12/24 12:10 or does not feel well. (diesel, oils) Review of Systems ROS Statement: Those systems with pertinent positive or pertinent negative responses have been documented in the HPI. ROS Other: All systems not noted in ROS Statement are negative. Past Medical History Past Medical History: Atrial Fibrillation, Coronary Artery Disease (CAD), CVA/TIA, Diabetes Mellitus, Deep Vein Thrombosis (DVT), Hypertension, Myocardial Infarction (IN), Osteoarthritis (OA) Additional Past Medical History / Comment(s): hx tia, hx stroke behind left eye., lt eye macular , states hospitalized with Covid April 2019 with life support and stage 3 kidney failure., hx of fall with hip fx and surgery 01/13/22 went to [facility] for Rehab. DVT during ., varicose veins, states painful sore left heel., hx of t.b. as a child with scarring on lungs. Last Myocardial Infarction Date:: unknown date History of Any Multi-Drug Resistant Organisms: MRSA, VRE Date of last positivie culture/infection: 09/09/22 MRSA & VRE ([facility]-Scanned) MDRO Source:: Blood Culture Past Surgical History: Adenoidectomy, Hysterectomy, Orthopedic Surgery, Tonsillectomy, Tubal Ligation Additional Past Surgical History / Comment(s): pilonidal cyst twice as child, rt knee arthroscopy, krystyna cataracts, krystyna great toe sx, ORIF Left hip (01/13/22) Past Anesthesia/Blood Transfusion Reactions: Previous Problems w/ Anesthesia, Postoperative Nausea & Vomiting (PONV) Additional Past Anesthesia/Blood Transfusion Reaction / Comment(s): difficulty waking up after sx. clausterphobia. 1961 blood transfusion(during child ) pt stated had palpitations after 2nd unit given Past Psychological History: Anxiety Smoking Status: Never smoker Past Alcohol Use History: None Reported Past Drug Use History: None Reported - Past Family History Mother Family Medical History: Cancer Additional Family Medical History / Comment(s): lung cancer Father Family Medical History: Coronary Artery Disease (CAD) Additional Family Medical History / Comment(s): heart disease, kidney disese General Exam - General Exam Comments Initial Comments: GENERAL: Patient is well-developed and well-nourished. Patient is nontoxic and well- hydrated and is in no acute distress. ENT: Neck is soft and supple. No significant lymphadenopathy is noted. Oropharynx is clear. Moist mucous membranes. Neck has full range of motion without eliciting any pain. EYES: The sclera were anicteric and conjunctiva were pink and moist. Extraocular movements were intact and pupils were equal round and reactive to light. Eyelids were unremarkable. PULMONARY: Unlabored respirations. Good breath sounds bilaterally. No audible rales rhonchi or wheezing was noted. CARDIOVASCULAR: There is a regular rate and rhythm without any murmurs gallops or rubs. ABDOMEN: Soft and nontender with normal bowel sounds. SKIN: Skin is clear with no lesions or rashes and otherwise unremarkable. NEUROLOGIC: Patient is alert and oriented x3. Cranial nerves II through XII are grossly intact. Motor and sensory are also intact. Normal speech, volume and content. Symmetrical smile. MUSCULOSKELETAL: Normal extremities with adequate strength and full range of motion. 2+ edema bilaterally LYMPHATICS: No significant lymphadenopathy is noted PSYCHIATRIC: Normal psychiatric evaluation. Limitations: no limitations Course Vital Signs 06/12/24 06/12/24 12:06 14:46 Temperature 98.1 F Pulse Rate 74 66 Respiratory 16 16 Rate Blood Pressure 112/47 101/76 O2 Sat by Pulse 99 95 Oximetry Medical Decision Making - Medical Decision Making Was pt. sent in by a medical professional or institution ([facility], [facility], urgent care, hospital, or long-term...) When possible be specific @ -No Did you speak to anyone other than the patient for history (EMS, parent, family, police, friend...)? What history was obtained from this source @ -No Did you review nursing and triage notes (agree or disagree)? Why? @ -I reviewed and agree with nursing and triage notes Were old charts reviewed (outside hosp., previous admission, EMS record, old EKG, old radiological studies, urgent care reports/EKG's, long-term records)? Report findings @ -No old charts were reviewed Differential Diagnosis? @ -Anemia, lab error, this is not all-inclusive list EKG interpreted by me (3pts min.). @ -As above X-rays interpreted by me (1pt min.). @ -None done CT interpreted by me (1pt min.). @ -None done U/S interpreted by me (1pt. min.). @ -None done What testing was considered but not performed or refused? (CT, X-rays, U/S, labs)? Why? @ -None What meds were considered but not given or refused? Why? @ -None Did you discuss the management of the patient with other professionals (professionals i.e. [facility], [facility], lab, RT, psych nurse, renal social worker, telepathist, teacher, aoc operations intelligence officer, case filler)? Give summary @ -No Was smoking cessation discussed for >3mins.? @ -No Was critical care preformed (if so, how long)? @ -No Were there social determinants of health that impacted care today? How? (Homelessness, low income, unemployed, alcoholism, drug addiction, tr ansportation, low edu. Level, literacy, decrease access to med. care, [facility], rehab)? @ -No Was there de-escalation of care discussed even if they declined (Discuss DNR or withdrawal of care, Hospice)? DNR status @ -No What co-morbidities impacted this encounter? (DM, HTN, Smoking, COPD, CAD, Cancer, CVA, ARF, Chemo, Hep., AIDS, mental health diagnosis, sleep apnea, morbid obesity)? @ -None Was patient admitted / discharged? Hospital course, mention meds given and route, prescriptions, significant lab abnormalities, going to OR and other pertinent info. @ -Patient was asymptomatic throughout her ED stay her hemoglobin was 7.[address] Chavez if she thought that was fine and that the patient could follow-up as previously scheduled Undiagnosed new problem with uncertain prognosis? @ -No Drug Therapy requiring intensive monitoring for toxicity (Heparin, Nitro, Insulin, Cardizem)? @ -No Were any procedures done? @ -No Diagnosis/symptom? @ -Anemia Acute, or Chronic, or Acute on Chronic? @ -Chronic Uncomplicated (without systemic symptoms) or Complicated (systemic symptoms)? @ -Uncomplicated Side effects of treatment? @ -No Exacerbation, Progression, or Severe Exacerbation? @ -No Poses a threat to life or bodily function? How? (Chest pain, [place], [place], pneumonia, PE, COPD, DKA, ARF, appy, cholecystitis, CVA, Diverticulitis, Homicidal, Suicidal, threat to staff... and all critical care pts) @ -No - Lab Data Result diagrams: 06/12/24 13:25 06/12/24 13:25 Lab Results 06/12/24 06/12/24 06/12/24 Range/Units 13:25 13:25 14:08 WBC 7.3 (3.8-10.6) k/uL RBC 2.76 L (3.80-5.40) m/uL Hgb 7.7 L (11.4-16.0) gm/dL Hct 24.9 L (34.0-46.0) % MCV 90.3 (80.0-100.0) fL MCH 28.0 (25.0-35.0) pg MCHC 31.0 (31.0-37.0) g/dL RDW 16.0 H (11.5-15.5) % Plt Count 262 (150-450) k/uL MPV 7.7 Neutrophils % 61 % Lymphocytes % 20 % Monocytes % 5 % Eosinophils % 11 % Basophils % 0 % Neutrophils # 4.5 (1.3-7.7) k/uL Lymphocytes # 1.4 (1.0-4.8) k/uL Monocytes # 0.4 (0-1.0) k/uL Eosinophils # 0.8 H (0-0.7) k/uL Basophils # 0.0 (0-0.2) k/uL Hypochromasia Marked Anisocytosis Slight PT 12.1 (10.0-12.5) sec INR 1.1 (<1.2) APTT 28.3 (22.0-30.0) sec Sodium 129 L (137-145) mmol/L Potassium 4.1 (3.5-5.1) mmol/L Chloride 96 L (98-107) mmol/L Carbon Dioxide 30 (22-30) mmol/L Anion Gap 3 mmol/L BUN 33 H (7-17) mg/dL Creatinine 2.99 H (0.52-1.04) mg/dL Est GFR (CKD-EPI)AfAm 16 (>60 ml/min/1.73 sqM) Est GFR (CKD-EPI)NonAf 14 (>60 ml/min/1.73 sqM) Glucose 89 (74-99) mg/dL Calcium 8.0 L (8.4-10.2) mg/dL Total Bilirubin 0.5 (0.2-1.3) mg/dL AST 31 (14-36) U/L ALT 15 (4-34) U/L Alkaline Phosphatase 88 (38-126) U/L Total Protein 5.0 L (6.3-8.2) g/dL Albumin 2.3 L (3.5-5.0) g/dL Disposition Clinical Impression: Anemia Disposition: HOME SELF-CARE Instructions (If sedation given, give patient instructions): Anemia (ED) Is patient prescribed a controlled substance at d/c from ED?: No Referrals: Luis Shirley MD [Primary Care Provider] - 1-2 days Time of Disposition: 15:16
[2024-06-12 13:35] LABS: Anisocytosis Slight; Basophils % (A) 0 %; Eosinophils # (A) 0.8 k/uL (0-0.7); Eosinophils % (A) 11 %; HCT 24.9 % (34.0-46.0); HGB 7.7 gm/dL (11.4-16.0); Hypochromasia Marked; Lymphocytes # (A) 1.4 k/uL (1.0-4.8); Lymphocytes % (A) 20 %; MCV 90.3 fL (80.0-100.0); Mean Platelet Volume 7.7; Monocytes # (A) 0.4 k/uL (0-1.0); Monocytes % (A) 5 %; Neutrophils # (A) 4.5 k/uL (1.3-7.7); Neutrophils % (A) 61 %; Platelet Count 262 k/uL (150-450); RBC 2.76 m/uL (3.80-5.40); WBC 7.3 k/uL (3.8-10.6)
[2024-06-12 13:49] LABS: ALT 15 U/L (4-34); AST 31 U/L (14-36); African American GFR (CKD) 16 (>60 ml/min/1.73 sqM); Albumin 2.3 g/dL (3.5-5.0); Alkaline Phosphatase 88 U/L (38-126); Anion Gap 3 mmol/L; Blood Urea Nitrogen 33 mg/dL (7-17); Carbon Dioxide 30 mmol/L (22-30); Chloride 96 mmol/L (98-107); Glucose 89 mg/dL (74-99); Non-African American GFR(CKD) 14 (>60 ml/min/1.73 sqM); Potassium 4.1 mmol/L (3.5-5.1); Sodium 129 mmol/L (137-145); Total Bilirubin 0.5 mg/dL (0.2-1.3)
[2024-06-12 14:28] LABS: INR 1.1 (<1.2); Partial Thromboplastin Time 28.3 sec (22.0-30.0); Prothrombin Time 12.1 sec (10.0-12.5)
[2024-06-12 15:58] VITALS: BP 97/58; PULSE 67; RESP 18
== END 2024-06-12 16:16 | disposition home or self-care (01) ==
LOC: EC 12:02
DX: D64.9 Anemia, unspecified (principal); Z99.2 Dependence on renal dialysis; Z88.5 Allergy status to narcotic agent; Z88.6 Allergy status to analgesic agent; Z91.09 Other allergy status, other than to drugs and biological substances; Z91.013 Allergy to seafood; Z91.040 Latex allergy status; Z91.048 Other nonmedicinal substance allergy status; Z88.8 Allergy status to other drugs, medicaments and biological substances
CPT/HCPCS: 36415; 80053; 85025; 85610; 85730; 99284

== ENCOUNTER 2024-06-17 12:09 | Inpatient (IN) | payer MEDICARE, OTHER ==
[2024-06-17 14:03] LABS: Anisocytosis Slight; Basophils % (A) 0 %; Eosinophils % (A) 14 %; HCT 24.2 % (34.0-46.0); HGB 7.5 gm/dL (11.4-16.0); Hypochromasia Marked; Lymphocytes # (A) 1.1 k/uL (1.0-4.8); Lymphocytes % (A) 14 %; MCH 28.5 pg (25.0-35.0); MCV 92.1 fL (80.0-100.0); Mean Platelet Volume 7.6; Monocytes # (A) 0.3 k/uL (0-1.0); Monocytes % (A) 4 %; Neutrophils # (A) 4.8 k/uL (1.3-7.7); Neutrophils % (A) 65 %; Platelet Count 271 k/uL (150-450); RBC 2.63 m/uL (3.80-5.40); RDW 16.7 % (11.5-15.5); WBC 7.3 k/uL (3.8-10.6)
--- NOTE | 2024-06-17 14:28 | XR ---
EXAMINATION TYPE: XR chest 1V DATE OF EXAM: 06/17/2024 2:19 PM COMPARISON: Chest radiographs from 05/27/2024 TECHNIQUE: XR chest 1V Frontal view of the chest. CLINICAL INDICATION:Female, 78 years old with history of missed dialysis x 1 week; FINDINGS: Lungs/Pleura: There is no evidence of pleural effusion, focal consolidation, or pneumothorax. Pulmonary vascularity: Chronic central pulmonary vascular congestion. Heart/mediastinum: Cardiomediastinal silhouette is enlarged and stable. Musculoskeletal: No acute osseous pathology. Other findings: None Lines/Tubes: Right IJ approach dual-lumen dialysis catheter identified with distal tip at the superior cavoatrial junction. IMPRESSION: Cardiomegaly without overt fluid overload radiographic appearance. [facility], , 06/17/2024 2:26 PM
[2024-06-17 15:41] LABS: Prothrombin Time 11.4 sec (10.0-12.5)
[2024-06-17 15:45] LABS: ALT 16 U/L (4-34); AST 37 U/L (14-36); African American GFR (CKD) 8 (>60 ml/min/1.73 sqM); Albumin 2.8 g/dL (3.5-5.0); Alkaline Phosphatase 98 U/L (38-126); Anion Gap 9 mmol/L; Blood Urea Nitrogen 69 mg/dL (7-17); Calcium 8.4 mg/dL (8.4-10.2); Carbon Dioxide 23 mmol/L (22-30); Chloride 99 mmol/L (98-107); Glucose 84 mg/dL (74-99); Magnesium 2.5 mg/dL (1.6-2.3); Non-African American GFR(CKD) 7 (>60 ml/min/1.73 sqM); Sodium 131 mmol/L (137-145); Total Bilirubin 0.5 mg/dL (0.2-1.3)
[2024-06-17 15:47] LABS: Potassium 6.1 mmol/L (3.5-5.1)
--- NOTE | 2024-06-17 16:08 | ED ---
General Adult HPI - General Chief complaint: Weakness Stated complaint: weakness Time Seen by Provider: 06/17/24 12:20 Source: patient, EMS Mode of arrival: EMS Limitations: no limitations - History of Present Illness Initial comments: Patient is an 78-year-old female past medical history end-stage renal disease on dialysis presenting today for 3 rounds missed dialysis due to bedbug infestation at home. She denies chest pain, shortness of breath, fevers or chills, abdominal pain nausea or vomiting, lightheadedness dizziness or palpitations. States she does have lower extremity edema that is worse than normal. - Related Data Home Medications Medication Instructions Recorded Confirmed Apixaban [Eliquis] 5 mg PO BID 08/13/20 06/17/24 Sacubitril/Valsartan [Entresto 24 1 tab PO BID 01/12/22 06/17/24 mg-26 mg Tablet] Omeprazole [PriLOSEC] 20 mg PO DAILY 03/05/22 06/17/24 Ipratropium Wells [Atrovent Hfa] 2 puff INHALATION RT-QID 09/09/22 06/17/24 ALPRAZolam [Xanax] 0.25 mg PO TID PRN 05/30/23 06/17/24 Ammonium Lactate Lotion 1 applic TOPICAL BID PRN 05/30/23 06/17/24 [Lac-Hydrin 12% Lotion] Aspirin 81 mg PO DAILY 05/30/23 06/17/24 Atorvastatin [Lipitor] 20 mg PO DAILY 05/30/23 06/17/24 Cholecalciferol [Vitamin D3 (25 25 mcg PO DAILY 05/30/23 06/17/24 Mcg = 1000 Iu)] Escitalopram [Lexapro] 10 mg PO DAILY 05/30/23 06/17/24 Furosemide [Lasix] 80 mg PO DAILY 05/30/23 06/17/24 Insulin Glargine,Hum.rec.anlog 16 - 18 units SQ HS PRN 05/30/23 06/17/24 [Toujeo Max Solostar] Insulin Glargine,Hum.rec.anlog 24 units SQ DAILY 05/30/23 06/17/24 [Toujeo Max Solostar] Multivit-Min/FA/Lycopen/Lutein 1 tab PO DAILY 05/30/23 06/17/24 [Centrum Silver Tablet] Potassium Chloride ER [K-Dur 20] 20 meq PO DAILY 05/30/23 06/17/24 Albuterol Inhaler [Ventolin Hfa 2 puff INHALATION RT-QID PRN 01/09/24 06/17/24 Inhaler] Ascorbic Acid [Vitamin C] 1,000 mg PO DAILY 01/09/24 06/17/24 Vit C/E/Zn/Coppr/Lutein/Zeaxan 1 cap PO BID 01/09/24 06/17/24 [Preservision Areds 2 Softgel] carvediloL [Coreg] 3.125 mg PO BID 01/09/24 06/17/24 Metoprolol Tartrate [Lopressor] 12.5 mg PO BID 01/30/24 06/17/24 Menthol-Zinc Oxide Oint 1 applic TOPICAL DIRECTED 03/03/24 06/17/24 [Calmoseptine Ointment] Periguard Ointment 1 applic TOPICAL DIRECTED 03/03/24 06/17/24 Vits A and D/White Pet/Lanolin [A 1 applic TOPICAL DAILY PRN 03/03/24 06/17/24 and D Ointment] traMADol HCL 50 mg PO TID PRN 05/20/24 06/17/24 Darbepoetin Fernando [Aranesp] 40 mcg SQ DIRECTED 06/17/24 06/17/24 Midodrine [ProAmatine] 10 mg PO AC-TID PRN 06/17/24 06/17/24 Previous Rx's Medication Instructions Recorded Magnesium Oxide [Mag-Ox] 400 mg PO DAILY #30 tab 01/16/24 Nystatin 100,000Unit/gm Cream 1 applic TOPICAL BID #60 g 01/16/24 [Mycostatin Cream] Sodium Bicarbonate Tab 650 mg PO BID #60 tab 01/16/24 Torsemide [Demadex] 40 mg PO DAILY #30 tab 01/16/24 Allergies Allergy/AdvReac Type Severity Reaction Status Date / Time shellfish derived [Shellfish] Allergy Severe vomiting Verified 06/17/24 13:33 -very ill adhesive Allergy skin red Verified 06/17/24 13:33 and murguia, tears skin aluminum Allergy skin turns Verified 06/17/24 13:33 black, passes out Antihistamines - Allergy heart Verified 06/17/24 13:33 Ethylenediamine palpitations codeine Allergy migraines Verified 06/17/24 13:33 epinephrine Allergy heart Verified 06/17/24 13:33 palpitations fluticasone [From Flonase] Allergy Unknown Verified 06/17/24 13:33 hydrogen peroxide Allergy murguia and Verified 06/17/24 13:33 causes infection latex Allergy passes out Verified 06/17/24 13:33 nickel Allergy turns skin Verified 06/17/24 13:33 black and passes out procaine HCl [From Novocain] Allergy passed Verified 06/17/24 13:33 out- due to epinephrine in it. thiopental sodium Allergy needed cpr Verified 06/17/24 13:33 [From Pentothal] resusitation iron AdvReac Nausea Verified 06/17/24 13:33 methocarbamol [From Robaxin] AdvReac Hallucinati Verified 06/17/24 13:33 ons zinc oxide AdvReac Rash/Hives Verified 06/17/24 13:33 surgical felicita Allergy Severe had to be Uncoded 06/17/24 13:33 removed 2 days post-op petroleum products AdvReac passes out Uncoded 06/17/24 13:33 or does not feel well. (diesel, oils) Review of Systems ROS Statement: Those systems with pertinent positive or pertinent negative responses have been documented in the HPI. ROS Other: All systems not noted in ROS Statement are negative. Past Medical History Past Medical History: Atrial Fibrillation, Coronary Artery Disease (CAD), CVA/TIA, Diabetes Mellitus, Deep Vein Thrombosis (DVT), Hypertension, Myocardial Infarction (IA), Osteoarthritis (OA) Additional Past Medical History / Comment(s): hx tia, hx stroke behind left eye., lt eye macular , states hospitalized with Covid April 2019 with life support and stage 3 kidney failure., hx of fall with hip fx and surgery 01/13/22 went to [facility] for Rehab. DVT during ., varicose veins, states painful sore left heel., hx of t.b. as a child with scarring on lungs. Last Myocardial Infarction Date:: unknown date History of Any Multi-Drug Resistant Organisms: MRSA, VRE Date of last positivie culture/infection: 09/09/22 MRSA & VRE ([facility]-Scanned) MDRO Source:: Blood Culture Past Surgical History: Adenoidectomy, Hysterectomy, Orthopedic Surgery, Tonsillectomy, Tubal Ligation Additional Past Surgical History / Comment(s): pilonidal cyst twice as child, rt knee arthroscopy, krystyna cataracts, krystyna great toe sx, ORIF Left hip (01/13/22) Past Anesthesia/Blood Transfusion Reactions: Previous Problems w/ Anesthesia, Postoperative Nausea & Vomiting (PONV) Additional Past Anesthesia/Blood Transfusion Reaction / Comment(s): difficulty waking up after sx. clausterphobia. 1961 blood transfusion(during child ) pt stated had palpitations after 2nd unit given Past Psychological History: Anxiety Smoking Status: Never smoker Past Alcohol Use History: None Reported Past Drug Use History: None Reported - Past Family History Mother Family Medical History: Cancer Additional Family Medical History / Comment(s): lung cancer Father Family Medical History: Coronary Artery Disease (CAD) Additional Family Medical History / Comment(s): heart disease, kidney disese General Exam - General Exam Comments Initial Comments: PE: CONSTITUTIONAL: No apparent distress, chronically ill-appearing, nontoxic SKIN: Warm, dry, no jaundice, hives or petechiae EYES: Pupils are equally round, extraocular movements intact without nystagmus, clear conjunctiva, non-icteric sclera HENT: Normocephalic, atraumatic, moist mucus membranes, oropharynx clear without exudates NECK: , Full range of motion, normal appearance PULMONARY: Clear to auscultation without wheezes, rhonchi, or rales, normal excursion, no accessory muscle use and no stridor CARDIOVASCULAR: Regular rate, rhythm, normal S1 and S2. No appreciated murmurs, rubs or gallops. Strong radial pulses with intact distal perfusion. Bilateral 3+ lower extremity pitting edema GASTROINTESTINAL: Soft, active bowel sounds throughout, non-tender, non- distended, no palpable masses, no rebound or guarding. No hepatosplenomegaly MUSCULOSKELETAL: Extremities have no gross deformity NEUROLOGIC:_a/o x 3, GCS 15, normal mentation and speech. Moves all extremities x 4 without motor or sensory deficit PSYCHIATRIC:_normal mood and affect, thought process is clear and linear Limitations: no limitations Course Vital Signs 06/17/24 06/17/24 06/17/24 12:54 16:31 18:33 Temperature 98.1 F 98.1 F 98 F Pulse Rate 71 68 64 Respiratory 18 18 18 Rate Blood Pressure 130/75 122/62 133/69 O2 Sat by Pulse 99 99 97 Oximetry 06/17/24 19:41 Temperature 97.4 F L Pulse Rate 73 Respiratory 18 Rate Blood Pressure 122/63 O2 Sat by Pulse 96 Oximetry EKG Findings - EKG Comments: EKG Findings:: Sinus rhythm rate 66 bpm VA interval 200 ms QT/QTc 4 6/490 ms, left axis deviation, Q-wave presently V2 V3 V4, no peaked T waves, no ST el evations or depressionsCompared to EKG performed on 05/20/2024, no significant changes from prior Medical Decision Making - Medical Decision Making Was pt. sent in by a medical professional or institution (, PA, MODELING DIRECTOR, urgent care, hospital, or skilled nursing...) When possible be specific @ -No Did you speak to anyone other than the patient for history (EMS, parent, family, police, friend...)? What history was obtained from this source @Yes, ultimately I did speak with patient's son, Danish, who states that he real issue is that patient does not have any form of transportation to dialysis at this time due to bedbugs Did you review nursing and triage notes (agree or disagree)? Why? @ -I reviewed nursing and triage notes Were old charts reviewed (outside hosp., previous admission, EMS record, old EKG, old radiological studies, urgent care reports/EKG's, skilled nursing records)? Report findings @ -Medical records reviewed- Differential Diagnosis (chest pain, altered mental status, abdominal pain women, abdominal pain men, vaginal bleeding, weakness, fever, dyspnea, syncope, headache, dizziness, GI bleed, back pain, seizure, CVA, palpatations, mental health, musculoskeletal)? @In regards to missed dialysis sessions, differential diagnosis remains broad, top considerations include hyperkalemia, hypomagnesemia, hyper hypocalcemia, ar rhythmia, CHF exacerbation this is not an all-inclusive list EKG interpreted by me (3pts min.). @ -As above X-rays interpreted by me (1pt min.). @I personally reviewed patient's chest x-ray, I see no evidence of pleural effusions or consolidations though did note cardiomegaly, I agree with radiologi st interpretation CT interpreted by me (1pt min.). @ -None done U/S interpreted by me (1pt. min.). @ -None done What testing was considered but not performed or refused? (CT, X-rays, U/S, labs)? Why? @ -None What meds were considered but not given or refused? Why? Albuterol and Lokelma were considered however after discussion with Dr. Coyne, nephrology, recommends insulin dextrose and dialysis this evening, appreciate coordination of care and recommendations Did you discuss the management of the patient with other professionals (professionals i.e. , PA, MODELING DIRECTOR, lab, RT, psych nurse, social security specialist, program lead, teacher, customs and immigration officer, hospice case manager)? Give summary @Spoke with nephrology, please see note above Was smoking cessation discussed for >3mins.? @ -No Was critical care preformed (if so, how long)? @Yes, 35 minutes, spent correcting electrolyte arrangements, coordinating with consultants, getting history from additional sources, ordering and interpretation of the labs Were there social determinants of health that impacted care today? How? (Homelessness, low income, unemployed, alcoholism, drug addiction, transportation, low edu. Level, literacy, decrease access to med. care, skilled nursing, rehab)? @Low income and transportation issues Was there de-escalation of care discussed even if they declined (Discuss DNR or withdrawal of care, Hospice)? @ -No What co-morbidities impacted this encounter? (DM, HTN, Smoking, COPD, CAD, Cancer, CVA, ARF, Chemo, Hep., AIDS, mental health diagnosis, sleep apnea, morbid obesity)? @ -ESRD on dialysis, CHF, obesity Was patient admitted / discharged? Hospital course, mention meds given and route, prescriptions, significant lab abnormalities, going to OR and other pertinent info. @ -Admission This is an 78-year-old female past medical history of end-stage renal disease on dialysis Friday//Fri presenting for 3 missed rounds if dialysis 2/2 bed bugs at home and transport refusing to take patient 2/2 this. Patient is in stable condition on arrival. She has no increased work of breathing and no additional complaints patient w/ exception of lower extremity swelling. Plan for comprehensive labs, EKG, depending on potassium level, will either arrange for stat, urgent or routine dialysis inpatient. Potassium 6.1. Additionally ordered Lokelma, albuterol, insulin dextrose. I discussed case with Dr. Coyne, nephrology, he kindly recommended doing insulin and dextrose and will assist in arranging for dialysis this evening for the patient. States that patient could be accepted to dialysis on Friday and potentially go home. I was called by patient's son, Danish who states that the issue is regarding patient's transport service and that they will refuse to take her until the bedbugs are resolved. There is no other way to transfer the patient to dialysis. For this reason patiently admitted for observation. Case discussed w/ Dr. Shirley, kindly accepts pt for admission. Undiagnosed new problem with uncertain prognosis? @ -No Drug Therapy requiring intensive monitoring for toxicity (Heparin, Nitro, Insulin, Cardizem)? @ -No Were any procedures done? @ -No Diagnosis/symptom? @End-stage renal disease on dialysis, hyperkalemia Acute, or Chronic, or Acute on Chronic? @ -Acute hyperkalemia chronic end-stage renal disease Uncomplicated (without systemic symptoms) or Complicated (systemic symptoms)? @ -Complicated Side effects of treatment? @ -No Exacerbation, Progression, or Severe Exacerbation? @ -No Poses a threat to life or bodily function? How? (Chest pain, USA, IA, pneumonia, PE, COPD, DKA, ARF, appy, cholecystitis, CVA, Diverticulitis, Homicidal, Suicidal, threat to staff... and all critical care pts) @ -Yes of left untreated could lead to lethal arrhythmia, fluid overload and - Lab Data Result diagrams: 06/17/24 13:50 06/18/24 01:57 Lab Results 06/17/24 06/17/24 06/17/24 Range/Units 13:50 15:03 15:03 WBC 7.3 (3.8-10.6) k/uL RBC 2.63 L (3.80-5.40) m/uL Hgb 7.5 L (11.4-16.0) gm/dL Hct 24.2 L (34.0-46.0) % MCV 92.1 (80.0-100.0) fL MCH 28.5 (25.0-35.0) pg MCHC 31.0 (31.0-37.0) g/dL RDW 16.7 H (11.5-15.5) % Plt Count 271 (150-450) k/uL MPV 7.6 Neutrophils % 65 % Lymphocytes % 14 % Monocytes % 4 % Eosinophils % 14 % Basophils % 0 % Neutrophils # 4.8 (1.3-7.7) k/uL Lymphocytes # 1.1 (1.0-4.8) k/uL Monocytes # 0.3 (0-1.0) k/uL Eosinophils # 1.0 H (0-0.7) k/uL Basophils # 0.0 (0-0.2) k/uL Hypochromasia Marked Anisocytosis Slight PT 11.4 (10.0-12.5) sec INR 1.0 (<1.2) Sodium 131 L (137-145) mmol/L Potassium 6.1 H* (3.5-5.1) mmol/L Chloride 99 (98-107) mmol/L Carbon Dioxide 23 (22-30) mmol/L Anion Gap 9 mmol/L BUN 69 H (7-17) mg/dL Creatinine 5.39 H (0.52-1.04) mg/dL Est GFR (CKD-EPI)AfAm 8 (>60 ml/min/1.73 sqM) Est GFR (CKD-EPI)NonAf 7 (>60 ml/min/1.73 sqM) Glucose 84 (74-99) mg/dL POC Glucose (mg/dL) (70-110) mg/dL POC Glu Health Care Marketing Specialist ID Calcium 8.4 (8.4-10.2) mg/dL Magnesium 2.5 H (1.6-2.3) mg/dL Total Bilirubin 0.5 (0.2-1.3) mg/dL AST 37 H (14-36) U/L ALT 16 (4-34) U/L Alkaline Phosphatase 98 (38-126) U/L Total Protein 6.0 L (6.3-8.2) g/dL Albumin 2.8 L (3.5-5.0) g/dL Hep Bs Antigen (Nonreactive) Hep Bs Antibody (Negative) Hep Bs Antibody, Quant mIU/mL 06/17/24 06/17/24 Range/Units 15:03 16:23 WBC (3.8-10.6) k/uL RBC (3.80-5.40) m/uL Hgb (11.4-16.0) gm/dL Hct (34.0-46.0) % MCV (80.0-100.0) fL MCH (25.0-35.0) pg MCHC (31.0-37.0) g/dL RDW (11.5-15.5) % Plt Count (150-450) k/uL MPV Neutrophils % % Lymphocytes % % Monocytes % % Eosinophils % % Basophils % % Neutrophils # (1.3-7.7) k/uL Lymphocytes # (1.0-4.8) k/uL Monocytes # (0-1.0) k/uL Eosinophils # (0-0.7) k/uL Basophils # (0-0.2) k/uL Hypochromasia Anisocytosis PT (10.0-12.5) sec INR (<1.2) Sodium (137-145) mmol/L Potassium (3.5-5.1) mmol/L Chloride (98-107) mmol/L Carbon Dioxide (22-30) mmol/L Anion Gap mmol/L BUN (7-17) mg/dL Creatinine (0.52-1.04) mg/dL Est GFR (CKD-EPI)AfAm (>60 ml/min/1.73 sqM) Est GFR (CKD-EPI)NonAf (>60 ml/min/1.73 sqM) Glucose (74-99) mg/dL POC Glucose (mg/dL) 118 H (70-110) mg/dL POC Glu Health Care Marketing Specialist ID Zane Sharron Calcium (8.4-10.2) mg/dL Magnesium (1.6-2.3) mg/dL Total Bilirubin (0.2-1.3) mg/dL AST (14-36) U/L ALT (4-34) U/L Alkaline Phosphatase (38-126) U/L Total Protein (6.3-8.2) g/dL Albumin (3.5-5.0) g/dL Hep Bs Antigen Nonreactive (Nonreactive) Hep Bs Antibody (Negative) Hep Bs Antibody, Quant 3.5 mIU/mL Disposition Clinical Impression: Infestation by bed bug, Missed dialysis, Hyperkalemia Disposition: ADMITTED IP TO THIS [facility] Condition: Stable
[2024-06-17] MEDS: ALBUTEROL NEB (CONC) 2.5 MG/0.5 ML INHALATION ONE (16:13)
[2024-06-17] MEDS: SODIUM ZIRCONIUM CYCLOSILICATE 10 GM PACKET PO ONE (16:13)
[2024-06-17 16:25] LABS: Glucose,Whole Blood 118 mg/dL (70-110)
[2024-06-17] MEDS: DEXTROSE 50% SYRINGE 50 ML IVP ONE (16:25)
[2024-06-17] MEDS: INSULIN REGULAR 100 UNIT/ML VIAL (IV) IV ONE (16:25)
[2024-06-17] MEDS ORDERED: ALBUTEROL NEBULIZED 2.5 MG/3 ML INHALATION PRN (19:10)
[2024-06-17] MEDS ORDERED: INSULIN GLARGINE (LANTUS) 100 UNIT/ML SYR SQ PRN (19:10)
[2024-06-17] MEDS ORDERED: NALOXONE 0.4 MG/ML 1 ML VIAL IV PRN (19:13)
[2024-06-17] MEDS: MIDODRINE 5 MG TAB PO PRN (20:23)
[2024-06-17] MEDS ORDERED: AMMONIUM LACTATE 12% LOTION 225 GM BTL TOPICAL PRN (20:35)
[2024-06-17] MEDS ORDERED: VITS A & D-WHITE PET-LANOLIN TUBE TOPICAL PRN (20:35)
[2024-06-17] MEDS: carvediloL 3.125 MG TAB PO SCH (23:36)
[2024-06-18] MEDS: PERIGUARD TOPICAL SCH (00:43)
[2024-06-18] MEDS: NYSTATIN 100,000UNIT/GM CREAM 30 GM TUBE TOPICAL SCH (00:45)
[2024-06-18] MEDS: APIXABAN 5 MG TAB PO SCH (00:46)
[2024-06-18] MEDS: SODIUM BICARBONATE TAB 650 MG TAB PO SCH (00:46)
[2024-06-18] MEDS: SACUBITRIL/VALSARTAN 24 MG-26 MG TABLET PO SCH (00:46)
[2024-06-18] MEDS: METOPROLOL TARTRATE 12.5 MG TAB PO SCH (00:46)
[2024-06-18] MEDS: traMADol 50 MG TAB PO PRN (00:49)
[2024-06-18 01:58] LABS: Glucose,Whole Blood 122 mg/dL (70-110)
[2024-06-18 02:18] LABS: ALT 13 U/L (4-34); AST 27 U/L (14-36); African American GFR (CKD) 13 (>60 ml/min/1.73 sqM); Albumin 2.2 g/dL (3.5-5.0); Albumin/Globulin Ratio 0.8; Alkaline Phosphatase 85 U/L (38-126); Anion Gap 0 mmol/L; Blood Urea Nitrogen 41 mg/dL (7-17); Calcium 7.5 mg/dL (8.4-10.2); Carbon Dioxide 27 mmol/L (22-30); Chloride 100 mmol/L (98-107); Globulin 2.7 g/dL; Glucose 91 mg/dL (74-99); Magnesium 2.2 mg/dL (1.6-2.3); Non-African American GFR(CKD) 12 (>60 ml/min/1.73 sqM); Phosphorus 3.4 mg/dL (2.5-4.5); Potassium 4.3 mmol/L (3.5-5.1); Sodium 127 mmol/L (137-145); Total Bilirubin 0.5 mg/dL (0.2-1.3); Total Protein 4.9 g/dL (6.3-8.2)
[2024-06-18] MEDS: MENTHOL-ZINC OXIDE OINT 113 GM TUBE TOPICAL SCH (02:32)
[2024-06-18 04:22] LABS: Hepatitis B Surface AB- Quant 3.5 mIU/mL; Hepatitis B Surface Antigen Nonreactive (Nonreactive)
[2024-06-18 06:01] LABS: Glucose,Whole Blood 88 mg/dL (70-110)
[2024-06-18] MEDS ORDERED: TORSEMIDE 20 MG TAB PO SCH (09:00)
[2024-06-18] MEDS: ATORVASTATIN 20 MG TAB PO SCH (09:13)
[2024-06-18] MEDS: ASPIRIN 81 MG PO SCH (09:13)
[2024-06-18] MEDS: FUROSEMIDE 40 MG TAB PO SCH (09:13)
[2024-06-18] MEDS: ASCORBIC ACID 500 MG TAB PO SCH (09:13)
[2024-06-18] MEDS: CHOLECALCIFEROL 25 MCG (1000 IU) TABLET PO SCH (09:13)
[2024-06-18] MEDS: ESCITALOPRAM 10 MG TAB PO SCH (09:13)
[2024-06-18] MEDS: PANTOPRAZOLE 40 MG TABLET PO SCH (09:14)
[2024-06-18] MEDS: MULTIVITAMINS, THERA 1 EACH TAB PO SCH (09:14)
[2024-06-18] MEDS: INSULIN GLARGINE (LANTUS) 100 UNIT/ML SYR SQ SCH (09:14)
[2024-06-18] MEDS ORDERED: DEXTROSE 50% SYRINGE 50 ML IVP PRN ×2 (10:18)
--- NOTE | 2024-06-18 10:18 | P.HPIM ---
History of Present Illness H&P Date: 06/11/24 Chief Complaint: missed dialysis. This is a history of physical and 78-year-old white female with known history of end-stage renal disease who has had transportation security. Also, there has been of bedbug infestation in her household which needs to be taken care of before she goes home. She has missed dialysis this week and is now admitted for appropriate treatment. Appreciate nephrology input. She is lying comfortably alert and oriented. Review of Systems Constitutional: Denies chills, Denies fever Eyes: denies blurred vision, denies pain Ears, nose, mouth and throat: Denies headache, Denies sore throat Cardiovascular: Reports as per HPI Respiratory: Denies cough Gastrointestinal: Denies abdominal pain, Denies diarrhea, Denies nausea, Denies vomiting Genitourinary: Reports as per HPI Musculoskeletal: Denies myalgias Past Medical History Past Medical History: Atrial Fibrillation, Coronary Artery Disease (CAD), CVA/TIA, Diabetes Mellitus, Deep Vein Thrombosis (DVT), Hypertension, Myocardial Infarction (VT), Osteoarthritis (OA), Renal Disease Additional Past Medical History / Comment(s): hx tia, hx stroke behind left eye., lt eye macular , states hospitalized with Covid April 2019 with life support and stage 3 kidney failure., hx of fall with hip fx and surgery 01/13/22 went to [facility] for Rehab. DVT during ., varicose veins, states painful sore left heel., hx of t.b. as a child with scarring on lungs. Last Myocardial Infarction Date:: unknown date History of Any Multi-Drug Resistant Organisms: MRSA, VRE Date of last positivie culture/infection: 09/09/22 MRSA & VRE ([facility]-Scanned) MDRO Source:: Blood Culture Past Surgical History: Adenoidectomy, Hysterectomy, Orthopedic Surgery, Tonsillectomy, Tubal Ligation Additional Past Surgical History / Comment(s): pilonidal cyst twice as child, rt knee arthroscopy, krystyna cataracts, krystyna great toe sx, ORIF Left hip (01/13/22) Past Anesthesia/Blood Transfusion Reactions: Previous Problems w/ Anesthesia, Postoperative Nausea & Vomiting (PONV) Additional Past Anesthesia/Blood Transfusion Reaction / Comment(s): difficulty waking up after sx. clausterphobia. 1961 blood transfusion(during child ) pt stated had palpitations after 2nd unit given Past Psychological History: Anxiety Smoking Status: Never smoker Past Alcohol Use History: None Reported Past Drug Use History: None Reported - Past Family History Mother Family Medical History: Cancer Additional Family Medical History / Comment(s): lung cancer Father Family Medical History: Coronary Artery Disease (CAD), Renal Disease Additional Family Medical History / Comment(s): heart disease, kidney disese Medications and Allergies Home Medications Medication Instructions Recorded Confirmed Type Apixaban [Eliquis] 5 mg PO BID 08/13/20 06/17/24 History Sacubitril/Valsartan [Entresto 24 1 tab PO BID 01/12/22 06/17/24 History mg-26 mg Tablet] Omeprazole [PriLOSEC] 20 mg PO DAILY 03/05/22 06/17/24 History Ipratropium [place] [Atrovent Hfa] 2 puff INHALATION RT-QID 09/09/22 06/17/24 History ALPRAZolam [Xanax] 0.25 mg PO TID PRN 05/30/23 06/17/24 History Ammonium Lactate Lotion 1 applic TOPICAL BID PRN 05/30/23 06/17/24 History [Lac-Hydrin 12% Lotion] Aspirin 81 mg PO DAILY 05/30/23 06/17/24 History Atorvastatin [Lipitor] 20 mg PO DAILY 05/30/23 06/17/24 History Cholecalciferol [Vitamin D3 (25 25 mcg PO DAILY 05/30/23 06/17/24 History Mcg = 1000 Iu)] Escitalopram [Lexapro] 10 mg PO DAILY 05/30/23 06/17/24 History Furosemide [Lasix] 80 mg PO DAILY 05/30/23 06/17/24 History Insulin Glargine,Hum.rec.anlog 16 - 18 units SQ HS PRN 05/30/23 06/17/24 History [Toujeo Max Solostar] Insulin Glargine,Hum.rec.anlog 24 units SQ DAILY 05/30/23 06/17/24 History [Toujeo Max Solostar] Multivit-Min/FA/Lycopen/Lutein 1 tab PO DAILY 05/30/23 06/17/24 History [Centrum Silver Tablet] Potassium Chloride ER [K-Dur 20] 20 meq PO DAILY 05/30/23 06/17/24 History Albuterol Inhaler [Ventolin Hfa 2 puff INHALATION RT-QID PRN 01/09/24 06/17/24 History Inhaler] Ascorbic Acid [Vitamin C] 1,000 mg PO DAILY 01/09/24 06/17/24 History Vit C/E/Zn/Coppr/Lutein/Zeaxan 1 cap PO BID 01/09/24 06/17/24 History [Preservision Areds 2 Softgel] carvediloL [Coreg] 3.125 mg PO BID 01/09/24 06/17/24 History Magnesium Oxide [Mag-Ox] 400 mg PO DAILY #30 tab 01/16/24 06/17/24 Rx Nystatin 100,000Unit/gm Cream 1 applic TOPICAL BID #60 g 01/16/24 06/17/24 Rx [Mycostatin Cream] Sodium Bicarbonate Tab 650 mg PO BID #60 tab 01/16/24 06/17/24 Rx Torsemide [Demadex] 40 mg PO DAILY #30 tab 01/16/24 06/17/24 Rx Metoprolol Tartrate [Lopressor] 12.5 mg PO BID 01/30/24 06/17/24 History Menthol-Zinc Oxide Oint 1 applic TOPICAL DIRECTED 03/03/24 06/17/24 History [Calmoseptine Ointment] Periguard Ointment 1 applic TOPICAL DIRECTED 03/03/24 06/17/24 History Vits A and D/White Pet/Lanolin [A 1 applic TOPICAL DAILY PRN 03/03/24 06/17/24 History and D Ointment] traMADol HCL 50 mg PO TID PRN 05/20/24 06/17/24 History Darbepoetin [place] [Aranesp] 40 mcg SQ DIRECTED 06/17/24 06/17/24 History Midodrine [ProAmatine] 10 mg PO AC-TID PRN 06/17/24 06/17/24 History Allergies Allergy/AdvReac Type Severity Reaction Status Date / Time shellfish derived [Shellfish] Allergy Severe vomiting Verified 06/17/24 13:33 -very ill adhesive Allergy skin red Verified 06/17/24 13:33 and murguia, tears skin aluminum Allergy skin turns Verified 06/17/24 13:33 black, passes out Antihistamines - Allergy heart Verified 06/17/24 13:33 Ethylenediamine palpitations codeine Allergy migraines Verified 06/17/24 13:33 epinephrine Allergy heart Verified 06/17/24 13:33 palpitations fluticasone [From Flonase] Allergy Unknown Verified 06/17/24 13:33 hydrogen peroxide Allergy murguia and Verified 06/17/24 13:33 causes infection latex Allergy passes out Verified 06/17/24 13:33 nickel Allergy turns skin Verified 06/17/24 13:33 black and passes out procaine HCl [From Novocain] Allergy passed Verified 06/17/24 13:33 out- due to epinephrine in it. thiopental sodium Allergy needed cpr Verified 06/17/24 13:33 [From Pentothal] resusitation iron AdvReac Nausea Verified 06/17/24 13:33 methocarbamol [From Robaxin] AdvReac Hallucinati Verified 06/17/24 13:33 ons zinc oxide AdvReac Rash/Hives Verified 06/17/24 13:33 surgical felicita Allergy Severe had to be Uncoded 06/17/24 13:33 removed 2 days post-op petroleum products AdvReac passes out Uncoded 06/17/24 13:33 or does not feel well. (diesel, oils) Physical Exam Vitals: Vital Signs Temp Pulse Pulse Resp BP BP Pulse Ox 06/18/24 08:52 64 15 06/18/24 06:59 98.5 F 64 15 93/52 97 06/18/24 01:22 98.4 F 70 16 103/58 96 06/18/24 00:56 98.4 F 72 16 97/72 06/17/24 19:41 97.4 F L 73 18 122/63 96 06/17/24 18:33 98 F 64 18 133/69 97 06/17/24 16:31 98.1 F 68 18 122/62 99 06/17/24 12:54 98.1 F 71 18 130/75 99 Intake and Output 06/17/24 06/18/24 06/18/24 22:59 06:59 14:59 Intake Total 500 Output Total 500 Balance 0 Intake: Hemodialysis 500 Output: Hemodialysis 500 Hemodialysis Net Amount 0 Other: Voiding Method Diaper Diaper Incontinent Incontinent # Voids 1 Weight 116 kg - Constitutional General appearance: no acute distress - EENT Eyes: EOMI - Neck Neck: no lymphadenopathy - Respiratory Respiratory: bilateral: diminished - Cardiovascular Rhythm: regular Heart sounds: normal: S1, S2 Abnormal Heart Sounds: no S3 Gallop - Gastrointestinal General gastrointestinal: soft, no tenderness - Musculoskeletal Musculoskeletal: generalized weakness - Psychiatric Psychiatric: A&O x's 3 Results CBC & Chem 7: 06/17/24 13:50 06/18/24 01:57 Labs: Abnormal Lab Results - Last 24 Hours (Table) 06/17/24 06/17/24 06/17/24 Range/Units 13:50 15:03 16:23 RBC 2.63 L (3.80-5.40) m/uL Hgb 7.5 L (11.4-16.0) gm/dL Hct 24.2 L (34.0-46.0) % RDW 16.7 H (11.5-15.5) % Eosinophils # 1.0 H (0-0.7) k/uL Sodium 131 L (137-145) mmol/L Potassium 6.1 H* (3.5-5.1) mmol/L BUN 69 H (7-17) mg/dL Creatinine 5.39 H (0.52-1.04) mg/dL POC Glucose (mg/dL) 118 H (70-110) mg/dL Calcium (8.4-10.2) mg/dL Magnesium 2.5 H (1.6-2.3) mg/dL AST 37 H (14-36) U/L Total Protein 6.0 L (6.3-8.2) g/dL Albumin 2.8 L (3.5-5.0) g/dL 06/18/24 06/18/24 Range/Units 01:57 01:57 RBC (3.80-5.40) m/uL Hgb (11.4-16.0) gm/dL Hct (34.0-46.0) % RDW (11.5-15.5) % Eosinophils # (0-0.7) k/uL Sodium 127 L (137-145) mmol/L Potassium (3.5-5.1) mmol/L BUN 41 H (7-17) mg/dL Creatinine 3.52 H (0.52-1.04) mg/dL POC Glucose (mg/dL) 122 H (70-110) mg/dL Calcium 7.5 L (8.4-10.2) mg/dL Magnesium (1.6-2.3) mg/dL AST (14-36) U/L Total Protein 4.9 L (6.3-8.2) g/dL Albumin 2.2 L (3.5-5.0) g/dL Thrombosis Risk Factor Assmnt - Choose All That Apply Any of the Below Risk Factors Present?: Yes Each Factor Represents 1 point: Heart failure (<1month), Medical pt on bed rest, Obesity (BMI >25), Swollen legs (current) Each Risk Factor Represents 3 Points: Age 75 years or older, History of DVT/PE Other congenital or acquired thrombophilia - If yes, enter type in comment: No Thrombosis Risk Factor Assessment Total Risk Factor Score: 10 Thrombosis Risk Factor Assessment Level: High Risk Assessment and Plan Assessment: dialysis dependent renal failure. Bedbug infestation. Plan alcoholic liver disease requiring intermittent paracentesis. Atrial fibrillation. Bedbound. Check CBC and CMP in a.m. Appreciate nephrology input. CODE STATUS modified. Time with Patient: Greater than 30
--- NOTE | 2024-06-18 10:18 | P.NPCON ---
History of Present Illness - Reason for Consult end stage renal disease - History of Present Illness Reason for consultation: End-stage renal disease History of present illness: Patient is 78-year-old female seen in consultation for end-stage renal disease. She is maintained on hemodialysis on Friday schedule. Patient missed bedbug infestation at home. Dialysis unit was not equipped to handle this situation but now is. Patient came to the hospital as her home has not been treated of the bedbugs. She underwent hemodialysis yesterday. Denies chest pain or shortness of breath. No vomiting or diarrhea. Makes little urine. Hemodynamically stable but blood pressures do run on the lower end. Patient has history of diabetes. Denies history of coronary artery disease. Potassium was elevated at 6.1 and is improved to 4.3 today. Patient also has history of liver cirrhosis and gets paracentesis every 2 weeks or so. Patient states her next paracentesis is scheduled for Friday. Vital signs are stable. General: No acute distress. HEENT: Head exam is unremarkable. LUNGS: No audible rhonchi or wheezes. HEART: Rate and Rhythm are regular. ABDOMEN: Nontender. EXTREMITITES: 2+ edema. Past Medical History Past Medical History: Atrial Fibrillation, Coronary Artery Disease (CAD), CVA/TIA, Diabetes Mellitus, Deep Vein Thrombosis (DVT), Hypertension, Myocardial Infarction ([place]), Osteoarthritis (OA), Renal Disease Additional Past Medical History / Comment(s): hx tia, hx stroke behind left eye., lt eye macular , states hospitalized with Covid April 2019 with life support and stage 3 kidney failure., hx of fall with hip fx and surgery 01/13/22 went to [facility] for Rehab. DVT during ., varicose veins, states painful sore left heel., hx of t.b. as a child with scarring on l ungs. Last Myocardial Infarction Date:: unknown date History of Any Multi-Drug Resistant Organisms: MRSA, VRE Date of last positivie culture/infection: 09/09/22 MRSA & VRE ([facility]-Scanned) MDRO Source:: Blood Culture Past Surgical History: Adenoidectomy, Hysterectomy, Orthopedic Surgery, Tonsillectomy, Tubal Ligation Additional Past Surgical History / Comment(s): pilonidal cyst twice as child, rt knee arthroscopy, krystyna cataracts, krystyna great toe sx, ORIF Left hip (01/13/22) Past Anesthesia/Blood Transfusion Reactions: Previous Problems w/ Anesthesia, Postoperative Nausea & Vomiting (PONV) Additional Past Anesthesia/Blood Transfusion Reaction / Comment(s): difficulty waking up after sx. clausterphobia. 1961 blood transfusion(during child ) pt stated had palpitations after 2nd unit given Past Psychological History: Anxiety Smoking Status: Never smoker Past Alcohol Use History: None Reported Past Drug Use History: None Reported - Past Family History Mother Family Medical History: Cancer Additional Family Medical History / Comment(s): lung cancer Father Family Medical History: Coronary Artery Disease (CAD), Renal Disease Additional Family Medical History / Comment(s): heart disease, kidney disese Medications and Allergies Home Medications Medication Instructions Recorded Confirmed Type Apixaban [Eliquis] 5 mg PO BID 08/13/20 06/17/24 History Sacubitril/Valsartan [Entresto 24 1 tab PO BID 01/12/22 06/17/24 History mg-26 mg Tablet] Omeprazole [PriLOSEC] 20 mg PO DAILY 03/05/22 06/17/24 History Ipratropium [place] [Atrovent Hfa] 2 puff INHALATION RT-QID 09/09/22 06/17/24 History ALPRAZolam [Xanax] 0.25 mg PO TID PRN 05/30/23 06/17/24 History Ammonium Lactate Lotion 1 applic TOPICAL BID PRN 05/30/23 06/17/24 History [Lac-Hydrin 12% Lotion] Aspirin 81 mg PO DAILY 05/30/23 06/17/24 History Atorvastatin [Lipitor] 20 mg PO DAILY 05/30/23 06/17/24 History Cholecalciferol [Vitamin D3 (25 25 mcg PO DAILY 05/30/23 06/17/24 History Mcg = 1000 Iu)] Escitalopram [Lexapro] 10 mg PO DAILY 05/30/23 06/17/24 History Furosemide [Lasix] 80 mg PO DAILY 05/30/23 06/17/24 History Insulin Glargine,Hum.rec.anlog 16 - 18 units SQ HS PRN 05/30/23 06/17/24 History [Al [place]] Insulin Glargine,Hum.rec.anlog 24 units SQ DAILY 05/30/23 06/17/24 History [Toujeo Max Solostar] Multivit-Min/FA/Lycopen/Lutein 1 tab PO DAILY 05/30/23 06/17/24 History [Centrum Silver Tablet] Potassium Chloride ER [K-Dur 20] 20 meq PO DAILY 05/30/23 06/17/24 History Albuterol Inhaler [Ventolin Hfa 2 puff INHALATION RT-QID PRN 01/09/24 06/17/24 History Inhaler] Ascorbic Acid [Vitamin C] 1,000 mg PO DAILY 01/09/24 06/17/24 History Vit C/E/Zn/Coppr/Lutein/Zeaxan 1 cap PO BID 01/09/24 06/17/24 History [Preservision Areds 2 Softgel] carvediloL [Coreg] 3.125 mg PO BID 01/09/24 06/17/24 History Magnesium Oxide [Mag-Ox] 400 mg PO DAILY #30 tab 01/16/24 06/17/24 Rx Nystatin 100,000Unit/gm Cream 1 applic TOPICAL BID #60 g 01/16/24 06/17/24 Rx [Mycostatin Cream] Sodium Bicarbonate Tab 650 mg PO BID #60 tab 01/16/24 06/17/24 Rx Torsemide [Demadex] 40 mg PO DAILY #30 tab 01/16/24 06/17/24 Rx Metoprolol Tartrate [Lopressor] 12.5 mg PO BID 01/30/24 06/17/24 History Menthol-Zinc Oxide Oint 1 applic TOPICAL DIRECTED 03/03/24 06/17/24 History [Calmoseptine Ointment] Periguard Ointment 1 applic TOPICAL DIRECTED 03/03/24 06/17/24 History Vits A and D/White Pet/Lanolin [A 1 applic TOPICAL DAILY PRN 03/03/24 06/17/24 History and D Ointment] traMADol HCL 50 mg PO TID PRN 05/20/24 06/17/24 History Darbepoetin [place] [Aranesp] 40 mcg SQ DIRECTED 06/17/24 06/17/24 History Midodrine [ProAmatine] 10 mg PO AC-TID PRN 06/17/24 06/17/24 History Allergies Allergy/AdvReac Type Severity Reaction Status Date / Time shellfish derived [Shellfish] Allergy Severe vomiting Verified 06/17/24 13:33 -very ill adhesive Allergy skin red Verified 06/17/24 13:33 and murguia, tears skin aluminum Allergy skin turns Verified 06/17/24 13:33 black, passes out Antihistamines - Allergy heart Verified 06/17/24 13:33 Ethylenediamine palpitations codeine Allergy migraines Verified 06/17/24 13:33 epinephrine Allergy heart Verified 06/17/24 13:33 palpitations fluticasone [From Flonase] Allergy Unknown Verified 06/17/24 13:33 hydrogen peroxide Allergy murguia and Verified 06/17/24 13:33 causes infection latex Allergy passes out Verified 06/17/24 13:33 nickel Allergy turns skin Verified 06/17/24 13:33 black and passes out procaine HCl [From Novocain] Allergy passed Verified 06/17/24 13:33 out- due to epinephrine in it. thiopental sodium Allergy needed cpr Verified 06/17/24 13:33 [From Pentothal] resusitation iron AdvReac Nausea Verified 06/17/24 13:33 methocarbamol [From Robaxin] AdvReac Hallucinati Verified 06/17/24 13:33 ons zinc oxide AdvReac Rash/Hives Verified 06/17/24 13:33 surgical felicita Allergy Severe had to be Uncoded 06/17/24 13:33 removed 2 days post-op petroleum products AdvReac passes out Uncoded 06/17/24 13:33 or does not feel well. (diesel, oils) Physical Exam Vitals: Vital Signs Temp Pulse Pulse Resp BP BP Pulse Ox 06/18/24 08:52 64 15 06/18/24 06:59 98.5 F 64 15 93/52 97 06/18/24 01:22 98.4 F 70 16 103/58 96 06/18/24 00:56 98.4 F 72 16 97/72 06/17/24 19:41 97.4 F L 73 18 122/63 96 06/17/24 18:33 98 F 64 18 133/69 97 06/17/24 16:31 98.1 F 68 18 122/62 99 06/17/24 12:54 98.1 F 71 18 130/75 99 Intake and Output 06/17/24 06/18/24 06/18/24 22:59 06:59 14:59 Intake Total 500 Output Total 500 Balance 0 Intake: Hemodialysis 500 Output: Hemodialysis 500 Hemodialysis Net Amount 0 Other: Voiding Method Diaper Diaper Incontinent Incontinent # Voids 1 Weight 116 kg Results - Lab Results Most recent lab results Calcium 7.5 mg/dL (8.4-10.2) L 06/18/24 01:57 Phosphorus 3.4 mg/dL (2.5-4.5) 06/18/24 01:57 Magnesium 2.2 mg/dL (1.6-2.3) 06/18/24 01:57 06/17/24 13:50 06/18/24 01:57 Assessment and Plan Plan: Assessment: 1. End-stage renal disease maintained on hemodialysis on Friday schedule. Started on hemodialysis in April 2024. Has permacath. 2. Hyperkalemia secondary to missed hemodialysis. Also on Entresto. 3. History of liver cirrhosis. Gets regular paracentesis in the next 1 scheduled for Friday. 4. Diabetes mellitus. 5. Anemia of chronic kidney disease. 6. Hypervolemic hyponatremia. Plan: Hemodialysis tomorrow. Add 1200 cc fluid restriction. Maintain Lasix. Discontinue oral bicarb. Check iron studies. Add scheduled midodrine. Hold for systolic blood pressure greater than 110. Thank you for the consultation. I will continue to follow the patient with you during her hospital stay.
[2024-06-18 11:32] LABS: Glucose,Whole Blood 168 mg/dL (70-110)
[2024-06-18] MEDS: MIDODRINE 5 MG TAB PO SCH (12:38)
[2024-06-18 16:10] LABS: Glucose,Whole Blood 153 mg/dL (70-110)
[2024-06-18 16:27] LABS: % Iron Saturation 9.13 (12.00-45.00)
[2024-06-18] MEDS: APIXABAN 2.5 MG TABLET PO SCH (20:00)
[2024-06-18] MEDS: METOPROLOL TARTRATE 25 MG TAB PO STA (20:55)
[2024-06-18 21:28] LABS: Glucose,Whole Blood 154 mg/dL (70-110)
[2024-06-19 06:17] LABS: Glucose,Whole Blood 117 mg/dL (70-110)
[2024-06-19 07:29] LABS: ALT 13 U/L (4-34); AST 28 U/L (14-36); African American GFR (CKD) 10 (>60 ml/min/1.73 sqM); Albumin 2.1 g/dL (3.5-5.0); Albumin/Globulin Ratio 0.8; Alkaline Phosphatase 76 U/L (38-126); Anion Gap 7 mmol/L; Blood Urea Nitrogen 55 mg/dL (7-17); Calcium 7.8 mg/dL (8.4-10.2); Carbon Dioxide 28 mmol/L (22-30); Chloride 94 mmol/L (98-107); Globulin 2.7 g/dL; Glucose 74 mg/dL (74-99); Non-African American GFR(CKD) 9 (>60 ml/min/1.73 sqM); Sodium 129 mmol/L (137-145); Total Bilirubin 0.4 mg/dL (0.2-1.3); Total Protein 4.8 g/dL (6.3-8.2)
[2024-06-19 09:39] LABS: HCT 19.5 % (37.2-46.3); HGB 5.9 g/dL (12.0-15.0); MCHC 30.3 g/dL (32.0-37.0); MCV 92.4 FL (80.0-97.0); Mean Platelet Volume 10.2 FL (9.5-12.2); NRBC Per 100 WBC 0 X 10*3/uL (0.00-0.01); Platelet Count 231 X 10*3/uL (140-440); RBC 2.11 X 10*6/uL (4.10-5.20); RDW 17.1 % (11.5-14.5); WBC 8.26 X 10*3/uL (4.50-10.00)
[2024-06-19 11:56] LABS: Anisocytosis Slight; HCT 20.7 % (34.0-46.0); Hypochromasia Marked; MCH 27.8 pg (25.0-35.0); MCHC 29.8 g/dL (31.0-37.0); MCV 93.2 fL (80.0-100.0); Mean Platelet Volume 8.3; Platelet Count 197 k/uL (150-450); RBC 2.22 m/uL (3.80-5.40); Reticulocyte % 5.8 % (0.5-2.0); WBC 7.2 k/uL (3.8-10.6)
[2024-06-19] MEDS: IPRATROPIUM 0.5 MG/2.5 ML NEBU INHALATION SCH (12:04)
[2024-06-19 12:05] LABS: Glucose,Whole Blood 191 mg/dL (70-110)
[2024-06-19] MEDS: INSULIN GLARGINE (LANTUS) 100 UNIT/ML SYR SQ SCH (12:05)
[2024-06-19] MEDS: METOPROLOL TARTRATE 25 MG TAB PO SCH (12:07)
--- NOTE | 2024-06-19 12:16 | P.PN ---
Subjective Progress Note Date: 06/19/24 This is a history of physical and 78-year-old white female with known history of end-stage renal disease who has had transportation security. Also, there has been of bedbug infestation in her household which needs to be taken care of before she goes home. She has missed dialysis this week and is now admitted for appropriate treatment. Appreciate nephrology input. She is lying comfortably alert and oriented. 06/19. Patient seen and examined. Hemoglobin this morning is 5.9, no complaint of any blood in the stools. Patient is tachycardic. Will order 2 units of packed red blood cell a, anemia workup and FOBT ordered REVIEW OF SYSTEMS: CONSTITUTIONAL: No fever, no malaise,. CARDIOVASCULAR: No chest pain, no palpitations, no syncope. PULMONARY: No shortness of breath, no cough, GASTROINTESTINAL: No diarrhea, no nausea, no vomiting, no abdominal pain. NEUROLOGICAL: No headaches, no weakness, PHYSICAL EXAMINATION: GENERAL: The patient is alert and oriented x3, not in any acute distress. Well developed, well nourished. HEENT: Pupils are round and equally reacting to light. EOMI. No scleral icterus. No conjunctival pallor. Normocephalic, atraumatic. No pharyngeal erythema. No thyromegaly. CARDIOVASCULAR: S1 and S2 present. No murmurs, rubs, or gallops. PULMONARY: Chest is clear to auscultation, no wheezing or crackles. ABDOMEN: Soft, nontender, nondistended, normoactive bowel sounds. No palpable organomegaly. MUSCULOSKELETAL: No joint swelling or deformity. EXTREMITIES: No cyanosis, clubbing, or pedal edema. NEUROLOGICAL: Gross neurological examination did not reveal any focal deficits. SKIN: No rashes. Assessment and plan End-stage renal disease on dialysis Acute on chronic anemia Missed dialysis session Bedbug infestation Alcohol liver disease Monitor vital signs Monitor CBC Monitor CMP Continue Coreg, Lipitor Hold aspirin and Eliquis Ordered anemia workup and FOBT Monitor blood sugar levels, continue current insulin regimen Patient home med list showed both Coreg and Lopressor, at this time we will discontinue Lopressor and keep patient on Coreg Continue dialysis per nephrology Labs and medication were reviewed.. Continue same treatment. Continue with symptomatic treatment. Resume home medication. Monitor labs and vitals. DVT and GI prophylaxis. Further recommendations as per clinical course of the patient Dictation was produced using [employer] dictation software. please excuse any grammatical, word or spelling errors. Objective - Vital Signs Vital signs: Vital Signs Temp 98.4 F 06/19/24 07:10 Pulse 62 06/19/24 07:10 Resp 17 06/19/24 07:10 BP 118/69 06/19/24 07:10 Pulse Ox 94 L 06/19/24 07:10 FiO2 Intake & Output 06/18/24 06/19/24 06/19/24 18:59 06:59 18:59 Weight 116 kg 117 kg Other: Voiding Method Diaper Diaper Diaper Incontinent Incontinent Incontinent # Voids 1 2 - Labs CBC & Chem 7: 06/19/24 05:23 06/19/24 05:23 Labs: Abnormal Lab Results - Last 24 Hours (Table) 06/18/24 06/18/24 06/18/24 Range/Units 01:57 11:30 16:09 RBC (4.10-5.20) X 10*6/uL Hgb (12.0-15.0) g/dL Hct (37.2-46.3) % MCHC (32.0-37.0) g/dL RDW (11.5-14.5) % Sodium (137-145) mmol/L Chloride (98-107) mmol/L BUN (7-17) mg/dL Creatinine (0.52-1.04) mg/dL POC Glucose (mg/dL) 168 H 153 H (70-110) mg/dL Calcium (8.4-10.2) mg/dL Iron 24 L (50-170) UG/DL % Saturation 9.13 L (12.00-45.00) Transferrin 188.0 L (204.0-354.0) mg/dL Total Protein (6.3-8.2) g/dL Albumin (3.5-5.0) g/dL 06/18/24 06/19/24 06/19/24 Range/Units 21:27 05:23 05:23 RBC 2.11 L (4.10-5.20) X 10*6/uL Hgb 5.9 A* (12.0-15.0) g/dL Hct 19.5 A* (37.2-46.3) % MCHC 30.3 L (32.0-37.0) g/dL RDW 17.1 H (11.5-14.5) % Sodium 129 L (137-145) mmol/L Chloride 94 L (98-107) mmol/L BUN 55 H (7-17) mg/dL Creatinine 4.34 H (0.52-1.04) mg/dL POC Glucose (mg/dL) 154 H (70-110) mg/dL Calcium 7.8 L (8.4-10.2) mg/dL Iron (50-170) UG/DL % Saturation (12.00-45.00) Transferrin (204.0-354.0) mg/dL Total Protein 4.8 L (6.3-8.2) g/dL Albumin 2.1 L (3.5-5.0) g/dL 06/19/24 Range/Units 06:16 RBC (4.10-5.20) X 10*6/uL Hgb (12.0-15.0) g/dL Hct (37.2-46.3) % MCHC (32.0-37.0) g/dL RDW (11.5-14.5) % Sodium (137-145) mmol/L Chloride (98-107) mmol/L BUN (7-17) mg/dL Creatinine (0.52-1.04) mg/dL POC Glucose (mg/dL) 117 H (70-110) mg/dL Calcium (8.4-10.2) mg/dL Iron (50-170) UG/DL % Saturation (12.00-45.00) Transferrin (204.0-354.0) mg/dL Total Protein (6.3-8.2) g/dL Albumin (3.5-5.0) g/dL
[2024-06-19 12:17] LABS: HGB 6.2 gm/dL (11.4-16.0)
--- NOTE | 2024-06-19 12:33 | P.PN ---
Subjective Progress Note Date: 06/19/24 following for ESRD/ HD management pateint seen while undergoing HD, BP low, s/p midodrine, lowering UF goal to 1.5 L. Hb is low at 5.9 , plan to give 1 unit pRBC. discussed with RN. General: No acute distress. HEENT: Head exam is unremarkable. LUNGS: No audible rhonchi or wheezes. HEART: Rate and Rhythm are regular. ABDOMEN: Nontender. EXTREMITITES: 2+ edema. Objective - Vital Signs Vital signs: Vital Signs Temp 98.0 F 06/19/24 12:08 Pulse 62 06/19/24 07:10 Resp 16 06/19/24 12:08 BP 121/63 06/19/24 12:08 Pulse Ox 94 L 06/19/24 07:10 FiO2 Intake & Output 06/18/24 06/19/24 06/19/24 18:59 06:59 18:59 Intake Total 1900 Output Total 1900 Balance 0 Weight 116 kg 117 kg Intake: Hemodialysis 1900 Output: Hemodialysis 400 Hemodialysis Net Amount 1500 Other: Voiding Method Diaper Diaper Diaper Incontinent Incontinent Incontinent # Voids 1 2 - Labs CBC & Chem 7: 06/19/24 10:49 06/19/24 05:23 Labs: Abnormal Lab Results - Last 24 Hours (Table) 06/18/24 06/18/24 06/18/24 Range/Units 01:57 16:09 21:27 RBC (4.10-5.20) X 10*6/uL Hgb (12.0-15.0) g/dL Hct (37.2-46.3) % MCHC (32.0-37.0) g/dL RDW (11.5-14.5) % Retic Count (0.5-2.0) % Sodium (137-145) mmol/L Chloride (98-107) mmol/L BUN (7-17) mg/dL Creatinine (0.52-1.04) mg/dL POC Glucose (mg/dL) 153 H 154 H (70-110) mg/dL Calcium (8.4-10.2) mg/dL Iron 24 L (50-170) UG/DL % Saturation 9.13 L (12.00-45.00) Transferrin 188.0 L (204.0-354.0) mg/dL Total Protein (6.3-8.2) g/dL Albumin (3.5-5.0) g/dL 06/19/24 06/19/24 06/19/24 Range/Units 05:23 05:23 06:16 RBC 2.11 L (4.10-5.20) X 10*6/uL Hgb 5.9 A* (12.0-15.0) g/dL Hct 19.5 A* (37.2-46.3) % MCHC 30.3 L (32.0-37.0) g/dL RDW 17.1 H (11.5-14.5) % Retic Count (0.5-2.0) % Sodium 129 L (137-145) mmol/L Chloride 94 L (98-107) mmol/L BUN 55 H (7-17) mg/dL Creatinine 4.34 H (0.52-1.04) mg/dL POC Glucose (mg/dL) 117 H (70-110) mg/dL Calcium 7.8 L (8.4-10.2) mg/dL Iron (50-170) UG/DL % Saturation (12.00-45.00) Transferrin (204.0-354.0) mg/dL Total Protein 4.8 L (6.3-8.2) g/dL Albumin 2.1 L (3.5-5.0) g/dL 06/19/24 06/19/24 Range/Units 10:49 12:03 RBC 2.22 L (4.10-5.20) X 10*6/uL Hgb 6.2 L* (12.0-15.0) g/dL Hct 20.7 L (37.2-46.3) % MCHC 29.8 L (32.0-37.0) g/dL RDW 17.0 H (11.5-14.5) % Retic Count 5.8 H (0.5-2.0) % Sodium (137-145) mmol/L Chloride (98-107) mmol/L BUN (7-17) mg/dL Creatinine (0.52-1.04) mg/dL POC Glucose (mg/dL) 191 H (70-110) mg/dL Calcium (8.4-10.2) mg/dL Iron (50-170) UG/DL % Saturation (12.00-45.00) Transferrin (204.0-354.0) mg/dL Total Protein (6.3-8.2) g/dL Albumin (3.5-5.0) g/dL Assessment and Plan Assessment: Assessment: 1. End-stage renal disease maintained on hemodialysis on Friday schedule. Started on hemodialysis in April 2024. Has permacath. 2. Hyperkalemia secondary to missed hemodialysis. Also on Entresto. 3. History of liver cirrhosis. Gets regular paracentesis in the next 1 scheduled for Friday. 4. Diabetes mellitus. 5. Anemia of chronic kidney disease. ferritin 106, iron sat 9.1% 6. Hypervolemic hyponatremia. Plan: Hemodialysis today per schedule. decrease UF goal to 1.5 L as tolerated start IV iron on 1200 cc fluid restriction. Maintain Lasix. continue scheduled midodrine. Hold for systolic blood pressure greater than 110 blood transfusion per primary team.
[2024-06-19 16:37] LABS: Glucose,Whole Blood 154 mg/dL (70-110)
[2024-06-19 20:36] LABS: Glucose,Whole Blood 171 mg/dL (70-110)
[2024-06-20] MEDS ORDERED: TOUJEO 300 UNIT/ML SQ PRN (06:06)
[2024-06-20 06:10] LABS: Glucose,Whole Blood 133 mg/dL (70-110)
--- NOTE | 2024-06-20 07:38 | P.PN ---
Subjective Progress Note Date: 06/20/24 This is a history of physical and 78-year-old white female with known history of end-stage renal disease who has had transportation security. Also, there has been of bedbug infestation in her household which needs to be taken care of before she goes home. She has missed dialysis this week and is now admitted for appropriate treatment. Appreciate nephrology input. She is lying comfortably alert and oriented. 06/19. Patient seen and examined. Hemoglobin this morning is 5.9, no complaint of any blood in the stools. Patient is tachycardic. Will order 2 units of packed red blood cell a, anemia workup and FOBT ordered 06/20. Patient seen and examined. Patient only received 1 unit of packed red blood cells yesterday. Denies any blood in the stools. States she feels better. REVIEW OF SYSTEMS: CONSTITUTIONAL: No fever, no malaise,. CARDIOVASCULAR: No chest pain, no palpitations, no syncope. PULMONARY: No shortness of breath, no cough, GASTROINTESTINAL: No diarrhea, no nausea, no vomiting, no abdominal pain. NEUROLOGICAL: No headaches, no weakness, PHYSICAL EXAMINATION: GENERAL: The patient is alert and oriented x3, not in any acute distress. Well developed, well nourished. HEENT: Pupils are round and equally reacting to light. EOMI. No scleral icterus. No conjunctival pallor. Normocephalic, atraumatic. No pharyngeal erythema. No thyromegaly. CARDIOVASCULAR: S1 and S2 present. No murmurs, rubs, or gallops. PULMONARY: Chest is clear to auscultation, no wheezing or crackles. ABDOMEN: Soft, nontender, nondistended, normoactive bowel sounds. No palpable organomegaly. MUSCULOSKELETAL: No joint swelling or deformity. EXTREMITIES: No cyanosis, clubbing, or pedal edema. NEUROLOGICAL: Gross neurological examination did not reveal any focal deficits. SKIN: No rashes. Assessment and plan End-stage renal disease on dialysis Acute on chronic anemia Missed dialysis session Bedbug infestation Alcohol liver disease Monitor vital signs Monitor CBC Monitor CMP Continue Coreg, Lipitor Hold aspirin and Eliquis Ordered anemia workup and FOBT Received 1 unit of packed red blood cell on 06/19 Monitor blood sugar levels, continue current insulin regimen Patient home med list showed both Coreg and Lopressor, at this time we will discontinue Lopressor and keep patient on Coreg Continue dialysis per nephrology Labs and medication were reviewed.. Continue same treatment. Continue with symptomatic treatment. Resume home medication. Monitor labs and vitals. DVT and GI prophylaxis. Further recommendations as per clinical course of the patient Dictation was produced using [employer] dictation software. please excuse any grammatical, word or spelling errors. Objective - Vital Signs Vital signs: Vital Signs Temp 98.7 F 06/20/24 01:26 Pulse 69 06/20/24 01:26 Resp 18 06/20/24 01:26 BP 154/57 06/20/24 01:26 Pulse Ox 94 L 06/20/24 01:26 FiO2 Intake & Output 06/19/24 06/20/24 06/20/24 18:59 06:59 18:59 Intake Total 2210 230 Output Total 1900 Balance 310 230 Weight 113 kg Intake: Oral 230 Blood Product 310 Rc As-1 Unit 310 [id number] Hemodialysis 1900 Output: Hemodialysis 400 Hemodialysis Net Amount 1500 Other: Voiding Method Diaper Diaper Incontinent Incontinent # Voids 1 1 - Labs CBC & Chem 7: 06/19/24 10:49 06/19/24 05:23 Labs: Abnormal Lab Results - Last 24 Hours (Table) 06/19/24 06/19/24 06/19/24 Range/Units 05:23 10:49 10:49 RBC 2.11 L 2.22 L (4.10-5.20) X 10*6/uL Hgb 5.9 A* 6.2 L* (12.0-15.0) g/dL Hct 19.5 A* 20.7 L (37.2-46.3) % MCHC 30.3 L 29.8 L (32.0-37.0) g/dL RDW 17.1 H 17.0 H (11.5-14.5) % Retic Count 5.8 H (0.5-2.0) % POC Glucose (mg/dL) (70-110) mg/dL Crossmatch See Detail 06/19/24 06/19/24 06/19/24 Range/Units 12:03 16:35 20:35 RBC (4.10-5.20) X 10*6/uL Hgb (12.0-15.0) g/dL Hct (37.2-46.3) % MCHC (32.0-37.0) g/dL RDW (11.5-14.5) % Retic Count (0.5-2.0) % POC Glucose (mg/dL) 191 H 154 H 171 H (70-110) mg/dL Crossmatch 06/20/24 Range/Units 06:09 RBC (4.10-5.20) X 10*6/uL Hgb (12.0-15.0) g/dL Hct (37.2-46.3) % MCHC (32.0-37.0) g/dL RDW (11.5-14.5) % Retic Count (0.5-2.0) % POC Glucose (mg/dL) 133 H (70-110) mg/dL Crossmatch
[2024-06-20] MEDS: TOUJEO 300 UNIT/ML SQ SCH (08:53)
[2024-06-20 09:30] LABS: Anisocytosis Slight; Basophils % (A) 1 %; Eosinophils % (A) 16 %; HGB 7.6 gm/dL (11.4-16.0); Hypochromasia Marked; Lymphocytes % (A) 17 %; MCH 27.9 pg (25.0-35.0); MCHC 30.2 g/dL (31.0-37.0); MCV 92.3 fL (80.0-100.0); Mean Platelet Volume 8.1; Monocytes % (A) 6 %; Neutrophils % (A) 58 %; Platelet Count 203 k/uL (150-450); Poikilocytosis Slight; RBC 2.71 m/uL (3.80-5.40); RDW 16.8 % (11.5-15.5); WBC 7.3 k/uL (3.8-10.6)
[2024-06-20 09:31] LABS: Basophils # (A) 0.1 k/uL (0-0.2); Eosinophils # (A) 1.2 k/uL (0-0.7); Lymphocytes # (A) 1.3 k/uL (1.0-4.8); Monocytes # (A) 0.4 k/uL (0-1.0); Neutrophils # (A) 4.3 k/uL (1.3-7.7)
[2024-06-20 09:48] LABS: Basophils # (A) 0.04 X 10*3/uL (0.00-0.10); Basophils % (A) 0.5 %; Eosinophils # (A) 1.36 X 10*3/uL (0.04-0.35); Eosinophils % (A) 16.2 %; HCT 22.7 % (37.2-46.3); Lymphocytes # (A) 2.09 X 10*3/uL (0.90-5.00); Lymphocytes % (A) 24.8 %; MCHC 30.8 g/dL (32.0-37.0); MCV 90.8 FL (80.0-97.0); Mean Platelet Volume 9.7 FL (9.5-12.2); Monocytes # (A) 0.87 X 10*3/uL (0.20-1.00); Monocytes % (A) 10.3 %; NRBC Per 100 WBC 0 X 10*3/uL (0.00-0.01); Neutrophils % (A) 47.5 %; Platelet Count 196 X 10*3/uL (140-440); RDW 16.9 % (11.5-14.5); WBC 8.42 X 10*3/uL (4.50-10.00)
[2024-06-20 10:36] LABS: ALT 13 U/L (8-44); AST 27 U/L (13-35); Albumin 2.5 g/dL (3.8-4.9); Alkaline Phosphatase 83 U/L (41-126); BUN/Creat Ratio 9.32 Ratio (12.00-20.00); Blood Urea Nitrogen 35.4 mg/dL (9.0-27.0); Carbon Dioxide 26.3 mmol/L (21.6-31.8); Chloride 100 mmol/L (96-109); Ferritin 87.5 ng/mL (10.0-291.0); Globulin 2.5 g/dL (1.6-3.3); Glucose 117 mg/dL (70-110); Potassium 4.3 mmol/L (3.5-5.5); Sodium 137 mmol/L (135-145); Total Bilirubin 0.6 mg/dL (0.3-1.2); Total Iron Binding Capacity 280 UG/DL (228-460)
[2024-06-20 11:09] LABS: Glucose,Whole Blood 159 mg/dL (70-110)
[2024-06-20 11:10] LABS: Iron 61 UG/DL (50-170)
[2024-06-20 11:17] LABS: % Iron Saturation 21.79 (12.00-45.00)
[2024-06-20 11:59] LABS: Vitamin B12 >1800.0 pg/mL (200.0-944.0)
--- NOTE | 2024-06-20 18:57 | P.PN ---
Subjective Progress Note Date: 06/20/24 following for ESRD/ HD management patient seen today, no new complaints Hb stable post 1 unit pRBC. stable vital signs General: No acute distress. HEENT: Head exam is unremarkable. LUNGS: No audible rhonchi or wheezes. HEART: Rate and Rhythm are regular. ABDOMEN: Nontender. EXTREMITITES: 2+ edema. Objective - Vital Signs Vital signs: Vital Signs Temp 98.3 F 06/20/24 14:35 Pulse 69 06/20/24 14:35 Resp 17 06/20/24 14:35 BP 133/71 06/20/24 14:35 Pulse Ox 93 L 06/20/24 14:35 FiO2 Intake & Output 06/19/24 06/20/24 06/20/24 18:59 06:59 18:59 Intake Total 2210 230 Output Total 1900 Balance 310 230 Weight 113 kg Intake: Oral 230 Blood Product 310 Rc As-1 Unit 310 [id number] Hemodialysis 1900 Output: Hemodialysis 400 Hemodialysis Net Amount 1500 Other: Voiding Method Diaper Diaper Diaper Incontinent Incontinent Incontinent # Voids 1 1 1 # Bowel Movements 1 - Labs CBC & Chem 7: 06/20/24 08:56 06/20/24 04:23 Labs: Abnormal Lab Results - Last 24 Hours (Table) 06/19/24 06/19/24 06/20/24 Range/Units 10:49 20:35 04:23 RBC 2.50 L (4.10-5.20) X 10*6/uL Hgb 7.0 L (12.0-15.0) g/dL Hct 22.7 L (37.2-46.3) % MCHC 30.8 L (32.0-37.0) g/dL RDW 16.9 H (11.5-14.5) % Immature Gran # 0.06 H (0.00-0.04) X 10*3/uL Eosinophils # 1.36 H (0.04-0.35) X 10*3/uL BUN (9.0-27.0) mg/dL Creatinine (0.6-1.5) mg/dL Est GFR (CKD-EPI) (>=60) BUN/Creatinine Ratio (12.00-20.00) Ratio Glucose (70-110) mg/dL POC Glucose (mg/dL) 171 H (70-110) mg/dL Calcium (8.7-10.3) mg/dL Transferrin (204.0-354.0) mg/dL Total Protein (6.2-8.2) g/dL Albumin (3.8-4.9) g/dL Albumin/Globulin Ratio (1.60-3.17) Ratio Vitamin B12 (200.0-944.0) pg/mL Crossmatch See Detail 06/20/24 06/20/24 06/20/24 Range/Units 04:23 06:09 08:56 RBC 2.71 L (4.10-5.20) X 10*6/uL Hgb 7.6 L (12.0-15.0) g/dL Hct 25.0 L (37.2-46.3) % MCHC 30.2 L (32.0-37.0) g/dL RDW 16.8 H (11.5-14.5) % Immature Gran # (0.00-0.04) X 10*3/uL Eosinophils # 1.2 H (0.04-0.35) X 10*3/uL BUN 35.4 H (9.0-27.0) mg/dL Creatinine 3.8 H (0.6-1.5) mg/dL Est GFR (CKD-EPI) 11 L (>=60) BUN/Creatinine Ratio 9.32 L (12.00-20.00) Ratio Glucose 117 H (70-110) mg/dL POC Glucose (mg/dL) 133 H (70-110) mg/dL Calcium 8.0 L (8.7-10.3) mg/dL Transferrin 200.0 L (204.0-354.0) mg/dL Total Protein 5.0 L (6.2-8.2) g/dL Albumin 2.5 L (3.8-4.9) g/dL Albumin/Globulin Ratio 1.00 L (1.60-3.17) Ratio Vitamin B12 >1800.0 H (200.0-944.0) pg/mL Crossmatch 06/20/24 Range/Units 11:06 RBC (4.10-5.20) X 10*6/uL Hgb (12.0-15.0) g/dL Hct (37.2-46.3) % MCHC (32.0-37.0) g/dL RDW (11.5-14.5) % Immature Gran # (0.00-0.04) X 10*3/uL Eosinophils # (0.04-0.35) X 10*3/uL BUN (9.0-27.0) mg/dL Creatinine (0.6-1.5) mg/dL Est GFR (CKD-EPI) (>=60) BUN/Creatinine Ratio (12.00-20.00) Ratio Glucose (70-110) mg/dL POC Glucose (mg/dL) 159 H (70-110) mg/dL Calcium (8.7-10.3) mg/dL Transferrin (204.0-354.0) mg/dL Total Protein (6.2-8.2) g/dL Albumin (3.8-4.9) g/dL Albumin/Globulin Ratio (1.60-3.17) Ratio Vitamin B12 (200.0-944.0) pg/mL Crossmatch Assessment and Plan Assessment: Assessment: 1. End-stage renal disease maintained on hemodialysis on Friday schedule. Started on hemodialysis in April 2024. Has permacath. 2. Hyperkalemia secondary to missed hemodialysis. Also on Entresto. 3. History of liver cirrhosis. Gets regular paracentesis in the next 1 scheduled for Friday. 4. Diabetes mellitus. 5. Anemia of chronic kidney disease. ferritin 106, iron sat 9.1% 6. Hypervolemic hyponatremia. Plan: Continue HD on T/T/S per op schedule continue IV iron on 1200 cc fluid restriction. Maintain Lasix. continue scheduled midodrine. Hold for systolic blood pressure greater than 110 blood transfusion per primary team.
[2024-06-20 20:57] LABS: Glucose,Whole Blood 195 mg/dL (70-110)
[2024-06-21 06:02] LABS: Glucose,Whole Blood 133 mg/dL (70-110)
--- NOTE | 2024-06-21 08:12 | P.PN ---
Subjective Progress Note Date: 06/21/24 Principal diagnosis: This continue rest 88-year-old white female essentially admitted due to the fact that there is bedbug infestation in her house and she is unable to stay there in good health has an underlying history of end-stage renal disease and is bedbound. The patient is going to have a paracentesis with dialysis today. No new complaints minimal pain resting comfortably Objective - Vital Signs Vital signs: Vital Signs Temp 98.3 F 06/21/24 07:06 Pulse 65 06/21/24 07:06 Resp 15 06/21/24 07:06 BP 105/56 06/21/24 07:06 Pulse Ox 95 06/21/24 07:06 FiO2 Intake & Output 06/20/24 06/21/24 06/21/24 18:59 06:59 18:59 Weight 116 kg Other: Voiding Method Diaper Diaper Incontinent Incontinent # Voids 1 2 # Bowel Movements 1 1 - Constitutional General appearance: Present: cooperative. Absent: disheveled - EENT Eyes: Absent: abnormal pupil - Neck Neck: Absent: lymphadenopathy - Respiratory Respiratory: bilateral: diminished - Cardiovascular Rhythm: irregularly irregular Heart sounds: normal: S1, S2 Abnormal Heart Sounds: Absent: S3 Gallop - Gastrointestinal General gastrointestinal: Present: soft. Absent: tenderness - Musculoskeletal Musculoskeletal: Present: generalized weakness - Labs CBC & Chem 7: 06/20/24 08:56 06/20/24 04:23 Labs: Abnormal Lab Results - Last 24 Hours (Table) 06/20/24 06/20/24 06/20/24 Range/Units 04:23 04:23 08:56 RBC 2.50 L 2.71 L (4.10-5.20) X 10*6/uL Hgb 7.0 L 7.6 L (12.0-15.0) g/dL Hct 22.7 L 25.0 L (37.2-46.3) % MCHC 30.8 L 30.2 L (32.0-37.0) g/dL RDW 16.9 H 16.8 H (11.5-14.5) % Immature Gran # 0.06 H (0.00-0.04) X 10*3/uL Eosinophils # 1.36 H 1.2 H (0.04-0.35) X 10*3/uL BUN 35.4 H (9.0-27.0) mg/dL Creatinine 3.8 H (0.6-1.5) mg/dL Est GFR (CKD-EPI) 11 L (>=60) BUN/Creatinine Ratio 9.32 L (12.00-20.00) Ratio Glucose 117 H (70-110) mg/dL POC Glucose (mg/dL) (70-110) mg/dL Calcium 8.0 L (8.7-10.3) mg/dL Transferrin 200.0 L (204.0-354.0) mg/dL Total Protein 5.0 L (6.2-8.2) g/dL Albumin 2.5 L (3.8-4.9) g/dL Albumin/Globulin Ratio 1.00 L (1.60-3.17) Ratio Vitamin B12 >1800.0 H (200.0-944.0) pg/mL 06/20/24 06/20/24 06/21/24 Range/Units 11:06 20:55 06:00 RBC (4.10-5.20) X 10*6/uL Hgb (12.0-15.0) g/dL Hct (37.2-46.3) % MCHC (32.0-37.0) g/dL RDW (11.5-14.5) % Immature Gran # (0.00-0.04) X 10*3/uL Eosinophils # (0.04-0.35) X 10*3/uL BUN (9.0-27.0) mg/dL Creatinine (0.6-1.5) mg/dL Est GFR (CKD-EPI) (>=60) BUN/Creatinine Ratio (12.00-20.00) Ratio Glucose (70-110) mg/dL POC Glucose (mg/dL) 159 H 195 H 133 H (70-110) mg/dL Calcium (8.7-10.3) mg/dL Transferrin (204.0-354.0) mg/dL Total Protein (6.2-8.2) g/dL Albumin (3.8-4.9) g/dL Albumin/Globulin Ratio (1.60-3.17) Ratio Vitamin B12 (200.0-944.0) pg/mL Assessment and Plan (1) Missed dialysis Current Visit: Yes Status: Acute Code(s): JWC8414 - SNOMED Code(s): 335778857 (2) Atrial fibrillation Current Visit: No Status: Acute Code(s): I48.91 - UNSPECIFIED ATRIAL FIBRILLATION SNOMED Code(s): 83692854 (3) Cirrhosis of liver with ascites Current Visit: No Status: Acute Code(s): K74.60 - UNSPECIFIED CIRRHOSIS OF LIVER; R18.8 - OTHER ASCITES SNOMED Code(s): 13078737 (4) Diabetes Current Visit: No Status: Acute Code(s): E11.9 - TYPE 2 DIABETES MELLITUS WITHOUT COMPLICATIONS SNOMED Code(s): 23404044 (5) Hyperlipidemia Current Visit: No Status: Acute Code(s): E78.5 - HYPERLIPIDEMIA, UNSPECIFIED SNOMED Code(s): 29179835 Plan: We will go and check CBC and CMP in a.m. Await treatment for bedbug infestation. We will be able to DC once her home is fumigated and cleared from a public he alth perspective. Appreciate nephrology input. Consult for paracentesis today. See orders otherwise
[2024-06-21 11:04] LABS: Glucose,Whole Blood 217 mg/dL (70-110)
--- NOTE | 2024-06-21 12:08 | CDI ---
Documentation Clarification Form Date: 06/21/2024 11:36:00 AM From: Lesvia Cabrera RN CCDS Phone: [phone] Admit Date: 06/17/2024 07:15:00 PM Patient Name: Bel Seth I Visit Number: [id number] Discharge Date: ATTENTION: The Clinical Documentation Specialists (CDI) and [facility] Coding Staff appreciate your assistance in clarifying documentation. Please respond to the clarification below the line at the bottom and electronically sign. The CDI & [facility] Coding staff will review the response and follow-up if needed. Please note: Queries are made part of the Legal Health Record. If you have any questions, please contact the author of this message via ITS. Doctor. Luis Shirley A bilateral buttock pressure ulcer is documented in the nursing wound care assessment on 06/18/24 as present on admission. Additional clarification regarding the stage of the pressure ulcer is requested. History/Risk Factors: Diabetes Mellitus, (DVT), Hypertension, End-stage renal disease, History of liver cirrhosis with paracentesis Left heel skin graft, Clinical Indicators: [id number]-old female bedbound present to ED after 3 missed dialysis due to bedbug infestation. Location: bilateral buttock Wound description: Excoriation, moist, erythema Stage II Treatment: Check hourly, incontinence care Absorbent Underpad Turn Q2 hours Generalized excoriation to folds-nystatin cream as ordered Please clarify the stage of pressure ulcer bilateral buttock if known: [ x] Stage 2 Pressure Ulcer to bilateral buttock [ ] Other condition, please specify [ ] Unable to determine Clinical Definitions: Stage 1 Pressure Ulcer: intact skin, non-blanching redness of local area Stage 2 Pressure Ulcer: Partial thickness, loss of dermis, pink wound bed Stage 3 Pressure Ulcer: Full thickness tissue loss Stage 4 Pressure Ulcer: Full thickness tissue loss with exposed bone, tendon, or muscle. Unstageable pressure ulcer: Full thickness tissue loss in which the base of the ulcer is covered by slough (yellow, chavez, mckinley, green or brown) and/or eschar (chavez, brown or black) in the wound bed. (Template Last Revised: May 2020) MTDD
--- NOTE | 2024-06-21 12:30 | CDI ---
Documentation Clarification Form Date: 06/21/2024 12:28:32 PM From: Lesvia Cabrera RN, CCDS Phone: [phone] Admit Date: 06/17/2024 07:15:00 PM Patient Name: Bel Seth I Visit Number: [id number] Discharge Date: ATTENTION: The Clinical Documentation Specialists (CDI) and [facility] Coding Staff appreciate your assistance in clarifying documentation. Please respond to the clarification below the line at the bottom and electronically sign. The CDI & [facility] Coding staff will review the response and follow-up if needed. Please note: Queries are made part of the Legal Health Record. If you have any questions, please contact the author of this message via ITS. Doctor. Luis Shirley Your patient has [insert documentation or findings, with date, location]. Based on this information and the findings below, is there an additional diagnosis that is clinically appropriate for this patient? Patient history/risk factors: ESRD on HD, A-Fib, CAD, CVA, DVT, HTN, ND, Liver cirrhosis and gets paracentesis, Bedbound, Clinical Indicators: 78-year-old female with history. End-stage renal disease maintained on hemodialysis present to ED after 3 missed HD due to bedbug infestation at home. Nutrition Assessment: Renal diet: Appetite Good Labs: Na 127 BUN 41 Cr 3.52 POCG 88-166 Ca 7.5 Weight 116 kg Height 5 ft. 2 in BMI 46.7 BMI Overweight Calculated [place] 50 kg Physical findings: Pressure ulcer, injury bilateral buttock stage II Increased metabolic demand for wound healing Treatment: Renal diet + high protein Ensure max BID Monitor supplement intake Is there an additional diagnosis that is clinically appropriate for this patient? [ x] Morbid obesity with BMI 46.7 [ ] No additional diagnosis/Not clinically significant [ ] Unable to determine [ ] Other, please specify (Template Last Reviewed: April 2022) MTDD
--- NOTE | 2024-06-21 13:47 | P.PN ---
Subjective Patient is seen for follow-up for end-stage renal disease. She is scheduled for hemodialysis in a.m. No significant complaints today. Status post paracentesis Objective - Vital Signs Vital signs: Vital Signs Temp 98.2 F 06/21/24 13:38 Pulse 65 06/21/24 13:38 Resp 15 06/21/24 13:38 BP 109/47 06/21/24 13:38 Pulse Ox 94 L 06/21/24 13:38 FiO2 Intake & Output 06/20/24 06/21/24 06/21/24 18:59 06:59 18:59 Weight 116 kg Other: Voiding Method Diaper Diaper Diaper Incontinent Incontinent Incontinent # Voids 1 2 # Bowel Movements 1 1 - Exam Patient is awake, comfortable, no acute distress Examination of the heart S1 and S2 Examination of the lungs bilateral breath sounds are heard Abdomen soft distended nontender Examination of lower extremities shows thickened edema, chronic skin changes noted. - Labs CBC & Chem 7: 06/20/24 08:56 06/20/24 04:23 Labs: Abnormal Lab Results - Last 24 Hours (Table) 06/20/24 06/21/24 06/21/24 Range/Units 20:55 06:00 11:03 POC Glucose (mg/dL) 195 H 133 H 217 H (70-110) mg/dL Assessment and Plan Assessment: 1. End-stage renal disease maintained on hemodialysis on Friday schedule. Started on hemodialysis in April 2024. Has permacath. 2. Hyperkalemia secondary to missed hemodialysis. Also on Entresto. 3. History of liver cirrhosis. Gets regular paracentesis in the next 1 scheduled for Friday. 4. Diabetes mellitus. 5. Anemia of chronic kidney disease. ferritin 106, iron sat 9.1% 6. Hypervolemic hyponatremia, improved with dialysis Plan: Hemodialysis in a.m.
[2024-06-21 15:07] LABS: African American GFR (CKD) 11 (>60 ml/min/1.73 sqM); Anion Gap 9 mmol/L; Blood Urea Nitrogen 55 mg/dL (7-17); Calcium 7.8 mg/dL (8.4-10.2); Carbon Dioxide 24 mmol/L (22-30); Chloride 94 mmol/L (98-107); Glucose 129 mg/dL (74-99); Non-African American GFR(CKD) 10 (>60 ml/min/1.73 sqM); Potassium 4.7 mmol/L (3.5-5.1); Sodium 127 mmol/L (137-145)
--- NOTE | 2024-06-21 15:55 | US ---
EXAMINATION TYPE: US paracentesis abd w/image DATE OF EXAM: 06/21/2024 CLINICAL HISTORY: Ascites The procedure was discussed with the patient. The risks, complications, benefits, and alternatives we re discussed and any questions were answered. Informed consent was obtained. The patient was placed s upine on the ultrasound table and prepped and draped in the usual sterile fashion. All elements of maximal barrier technique were utilized. Under ultrasound guidance, access into the right lower quadrant was obtained, via the paracentesis catheter system and direct ultrasound guidanc e. Approximately 4.6 liters of straw-colored fluid was removed. The patient was stable throughout the pr ocedure and remained stable upon discharge from Department of Radiology. IMPRESSION: Successful therapeutic paracentesis under ultrasound guidance. [facility], , 06/21/2024 3:52 PM
[2024-06-21 16:14] LABS: Glucose,Whole Blood 159 mg/dL (70-110)
[2024-06-21 20:38] LABS: Glucose,Whole Blood 187 mg/dL (70-110)
[2024-06-22 06:22] LABS: Glucose,Whole Blood 112 mg/dL (70-110)
[2024-06-22] MEDS: IPRATROPIUM 0.5 MG/2.5 ML NEBU INHALATION SCH (07:56)
--- NOTE | 2024-06-22 08:35 | P.PN ---
Subjective Progress Note Date: 06/22/24 This is an 78-year-old female who was admitted after missing 3 dialysis sessions due to a bedbug infestation in her house. Patient was unable to find transportation to dialysis due to the bedbugs in her home. Patient seen this morning sitting up in bed resting comfortably. She is tolerating diet. Vitals are stable. She did have paracentesis yesterday with 4.6 L of fluid removed. Case management is working on placement for patient. Objective - Vital Signs Vital signs: Vital Signs Temp 97.9 F 06/22/24 07:32 Pulse 64 06/22/24 07:32 Resp 18 06/22/24 07:32 BP 135/65 06/22/24 07:32 Pulse Ox 93 L 06/22/24 07:32 FiO2 Intake & Output 06/21/24 06/22/24 06/22/24 18:59 06:59 18:59 Weight 112 kg Other: Voiding Method Diaper Diaper Diaper Incontinent Incontinent Incontinent # Voids 1 2 # Bowel Movements 2 1 - Constitutional General appearance: Present: cooperative, no acute distress - EENT Eyes: Present: PERRLA - Neck Neck: Present: normal ROM. Absent: lymphadenopathy, rigidity - Respiratory Respiratory: bilateral: diminished - Cardiovascular Heart sounds: normal: S1, S2 - Gastrointestinal General gastrointestinal: Present: soft. Absent: tenderness - Integumentary Integumentary: Present: normal, normal turgor - Musculoskeletal Musculoskeletal: Present: generalized weakness - Psychiatric Psychiatric: Present: A&O x's 3 - Labs CBC & Chem 7: 06/20/24 08:56 06/21/24 14:18 Labs: Abnormal Lab Results - Last 24 Hours (Table) 06/21/24 06/21/24 06/21/24 Range/Units 11:03 14:18 16:13 Sodium 127 L (137-145) mmol/L Chloride 94 L (98-107) mmol/L BUN 55 H (7-17) mg/dL Creatinine 4.01 H (0.52-1.04) mg/dL Glucose 129 H (74-99) mg/dL POC Glucose (mg/dL) 217 H 159 H (70-110) mg/dL Calcium 7.8 L (8.4-10.2) mg/dL 06/21/24 06/22/24 Range/Units 20:36 06:18 Sodium (137-145) mmol/L Chloride (98-107) mmol/L BUN (7-17) mg/dL Creatinine (0.52-1.04) mg/dL Glucose (74-99) mg/dL POC Glucose (mg/dL) 187 H 112 H (70-110) mg/dL Calcium (8.4-10.2) mg/dL Assessment and Plan (1) Infestation by bed bug Current Visit: Yes Status: Acute Code(s): B88.8 - OTHER SPECIFIED INFESTATIONS SNOMED Code(s): 82679932 (2) Missed dialysis Current Visit: Yes Status: Acute Code(s): UQN2057 - SNOMED Code(s): 452662723 (3) Ascites Current Visit: No Status: Acute Code(s): R18.8 - OTHER ASCITES SNOMED Code(s): 473593812 (4) Atrial fibrillation Current Visit: No Status: Acute Code(s): I48.91 - UNSPECIFIED ATRIAL FIBRILLATION SNOMED Code(s): 65359679 (5) CAD (coronary artery disease) Current Visit: No Status: Acute Code(s): I25.10 - ATHSCL HEART DISEASE OF [place] CORONARY ARTERY W/O ANG PCTRS SNOMED Code(s): 14618384 (6) Diabetes Current Visit: No Status: Acute Code(s): E11.9 - TYPE 2 DIABETES MELLITUS WITHOUT COMPLICATIONS SNOMED Code(s): 72267145 (7) CKD (chronic kidney disease) Current Visit: No Status: Acute Code(s): N18.9 - CHRONIC KIDNEY DISEASE, UNSPECIFIED SNOMED Code(s): 612646061 (8) Hyperlipidemia Current Visit: No Status: Acute Code(s): E78.5 - HYPERLIPIDEMIA, UNSPECIFIED SNOMED Code(s): 24882347 (9) Hypertension Current Visit: No Status: Acute Code(s): I10 - ESSENTIAL (PRIMARY) HYPERTENSION SNOMED Code(s): 87038109 Plan: Check CBC and CMP in the morning. Continue to work with case management regarding placement for patient. Patient seen and evaluated by nurse practitioner, physician in agreement with plan.
[2024-06-22 08:45] LABS: HCT 22.4 % (37.2-46.3); HGB 6.9 g/dL (12.0-15.0); MCHC 30.8 g/dL (32.0-37.0); MCV 91.1 FL (80.0-97.0); Mean Platelet Volume 10.1 FL (9.5-12.2); NRBC Per 100 WBC 0 X 10*3/uL (0.00-0.01); Platelet Count 192 X 10*3/uL (140-440); RBC 2.46 X 10*6/uL (4.10-5.20); RDW 16.5 % (11.5-14.5); WBC 6.12 X 10*3/uL (4.50-10.00)
[2024-06-22 09:21] LABS: ALT 13 U/L (8-44); AST 29 U/L (13-35); Albumin 2.4 g/dL (3.8-4.9); Albumin/Globulin Ratio 0.96 Ratio (1.60-3.17); Alkaline Phosphatase 83 U/L (41-126); BUN/Creat Ratio 10.73 Ratio (12.00-20.00); Blood Urea Nitrogen 51.5 mg/dL (9.0-27.0); Chloride 95 mmol/L (96-109); Globulin 2.5 g/dL (1.6-3.3); Glucose 106 mg/dL (70-110); Potassium 4.7 mmol/L (3.5-5.5); Sodium 131 mmol/L (135-145); Total Bilirubin 0.3 mg/dL (0.3-1.2); Total Protein 4.9 g/dL (6.2-8.2)
[2024-06-22 11:06] LABS: Glucose,Whole Blood 177 mg/dL (70-110)
--- NOTE | 2024-06-22 12:32 | P.PN ---
Subjective Patient is seen for follow-up for end-stage renal disease. Patient is seen on hemodialysis. Hemoglobin was low at 6.9 g/dL. Currently receiving packed RBCs transfusion with dialysis. No significant complaints today. No obvious bleeding noted. Objective - Vital Signs Vital signs: Vital Signs Temp 97.9 F 06/22/24 10:15 Pulse 59 L 06/22/24 12:29 Resp 16 06/22/24 09:35 BP 124/54 06/22/24 12:29 Pulse Ox 93 L 06/22/24 07:32 FiO2 Intake & Output 06/21/24 06/22/24 06/22/24 18:59 06:59 18:59 Intake Total 310 Balance 310 Weight 112 kg Intake: Blood Product 310 Rc As-1 Unit 310 [id number] Other: Voiding Method Diaper Diaper Diaper Incontinent Incontinent Incontinent # Voids 1 2 # Bowel Movements 2 1 - Exam Patient is awake, comfortable, no acute distress Examination of the heart S1 and S2 Examination of the lungs bilateral breath sounds are heard Abdomen soft distended nontender Examination of lower extremities shows 2+ edema, chronic skin changes noted. - Labs CBC & Chem 7: 06/22/24 03:11 06/22/24 03:11 Labs: Abnormal Lab Results - Last 24 Hours (Table) 06/19/24 06/21/24 06/21/24 Range/Units 10:49 14:18 16:13 RBC (4.10-5.20) X 10*6/uL Hgb (12.0-15.0) g/dL Hct (37.2-46.3) % MCHC (32.0-37.0) g/dL RDW (11.5-14.5) % Sodium 127 L (137-145) mmol/L Chloride 94 L (98-107) mmol/L BUN 55 H (7-17) mg/dL Creatinine 4.01 H (0.52-1.04) mg/dL Est GFR (CKD-EPI) (>=60) BUN/Creatinine Ratio (12.00-20.00) Ratio Glucose 129 H (74-99) mg/dL POC Glucose (mg/dL) 159 H (70-110) mg/dL Calcium 7.8 L (8.4-10.2) mg/dL Total Protein (6.2-8.2) g/dL Albumin (3.8-4.9) g/dL Albumin/Globulin Ratio (1.60-3.17) Ratio Crossmatch See Detail 06/21/24 06/22/24 06/22/24 Range/Units 20:36 03:11 03:11 RBC 2.46 L (4.10-5.20) X 10*6/uL Hgb 6.9 A* (12.0-15.0) g/dL Hct 22.4 L (37.2-46.3) % MCHC 30.8 L (32.0-37.0) g/dL RDW 16.5 H (11.5-14.5) % Sodium 131 L (137-145) mmol/L Chloride 95 L (98-107) mmol/L BUN 51.5 H (7-17) mg/dL Creatinine 4.8 H (0.52-1.04) mg/dL Est GFR (CKD-EPI) 9 L (>=60) BUN/Creatinine Ratio 10.73 L (12.00-20.00) Ratio Glucose (74-99) mg/dL POC Glucose (mg/dL) 187 H (70-110) mg/dL Calcium 8.0 L (8.4-10.2) mg/dL Total Protein 4.9 L (6.2-8.2) g/dL Albumin 2.4 L (3.8-4.9) g/dL Albumin/Globulin Ratio 0.96 L (1.60-3.17) Ratio Crossmatch 06/22/24 06/22/24 Range/Units 06:18 11:03 RBC (4.10-5.20) X 10*6/uL Hgb (12.0-15.0) g/dL Hct (37.2-46.3) % MCHC (32.0-37.0) g/dL RDW (11.5-14.5) % Sodium (137-145) mmol/L Chloride (98-107) mmol/L BUN (7-17) mg/dL Creatinine (0.52-1.04) mg/dL Est GFR (CKD-EPI) (>=60) BUN/Creatinine Ratio (12.00-20.00) Ratio Glucose (74-99) mg/dL POC Glucose (mg/dL) 112 H 177 H (70-110) mg/dL Calcium (8.4-10.2) mg/dL Total Protein (6.2-8.2) g/dL Albumin (3.8-4.9) g/dL Albumin/Globulin Ratio (1.60-3.17) Ratio Crossmatch Assessment and Plan Assessment: 1. End-stage renal disease maintained on hemodialysis on Friday schedule. Started on hemodialysis in April 2024. Has permacath. 2. Hyperkalemia secondary to missed hemodialysis. Also on Entresto. 3. History of liver cirrhosis. Gets regular paracentesis in the next 1 scheduled for Friday. 4. Diabetes mellitus. 5. Anemia of chronic kidney disease. ferritin 106, iron sat 9.1% 6. Hypervolemic hyponatremia, improved with dialysis 7. Anemia with no active bleeding noted status post packed RBCs transfusion. Started on aranesp Plan: Hemodialysis today Add Aranesp
[2024-06-22] MEDS: DARBEPOETIN ALFA 60 MCG/0.3 ML SYRINGE SQ SCH (13:14)
[2024-06-22 16:51] LABS: Glucose,Whole Blood 119 mg/dL (70-110)
[2024-06-22 20:40] LABS: Glucose,Whole Blood 167 mg/dL (70-110)
[2024-06-23 04:53] LABS: Glucose,Whole Blood 129 mg/dL (70-110)
[2024-06-23 06:05] LABS: Glucose,Whole Blood 110 mg/dL (70-110)
--- NOTE | 2024-06-23 08:18 | P.PN ---
Subjective Principal diagnosis: This continue rest 78-year-old white female essentially admitted due to the fact that there is bedbug infestation in her house and she is unable to stay there in good health has an underlying history of end-stage renal disease and is bedbound. The patient is scheduled for dialysis today as per protocol. We are still awaiting placement issue due to her immobility and dialysis need. She states that a sql ssrs ssis developer will be coming to the house where she lives currently to give estimates on fumigating house for bedbug eradication. Objective - Vital Signs Vital signs: Vital Signs Temp 98.8 F 06/23/24 07:00 Pulse 61 06/23/24 07:00 Resp 18 06/23/24 07:00 BP 102/51 06/23/24 07:00 Pulse Ox 94 L 06/23/24 07:00 FiO2 Intake & Output 06/22/24 06/23/24 06/23/24 18:59 06:59 18:59 Intake Total 710 Output Total 3400 Balance -2690 Weight 112 kg 112 kg Intake: Blood Product 310 Rc As-1 Unit 310 [id number] Hemodialysis 400 Output: Hemodialysis 1900 Hemodialysis Net Amount 1500 Other: Voiding Method Diaper Diaper Incontinent Incontinent # Voids 1 # Bowel Movements 1 - EENT Eyes: Absent: abnormal pupil - Neck Neck: Absent: lymphadenopathy - Respiratory Respiratory: bilateral: diminished - Cardiovascular Rhythm: irregularly irregular Heart sounds: normal: S1, S2 Abnormal Heart Sounds: Absent: S3 Gallop - Gastrointestinal General gastrointestinal: Present: soft. Absent: tenderness - Labs CBC & Chem 7: 06/22/24 03:11 06/22/24 03:11 Labs: Abnormal Lab Results - Last 24 Hours (Table) 06/19/24 06/22/24 06/22/24 Range/Units 10:49 03:11 03:11 RBC 2.46 L (4.10-5.20) X 10*6/uL Hgb 6.9 A* (12.0-15.0) g/dL Hct 22.4 L (37.2-46.3) % MCHC 30.8 L (32.0-37.0) g/dL RDW 16.5 H (11.5-14.5) % Sodium 131 L (135-145) mmol/L Chloride 95 L (96-109) mmol/L BUN 51.5 H (9.0-27.0) mg/dL Creatinine 4.8 H (0.6-1.5) mg/dL Est GFR (CKD-EPI) 9 L (>=60) BUN/Creatinine Ratio 10.73 L (12.00-20.00) Ratio POC Glucose (mg/dL) (70-110) mg/dL Calcium 8.0 L (8.7-10.3) mg/dL Total Protein 4.9 L (6.2-8.2) g/dL Albumin 2.4 L (3.8-4.9) g/dL Albumin/Globulin Ratio 0.96 L (1.60-3.17) Ratio Crossmatch See Detail 06/22/24 06/22/24 06/22/24 Range/Units 11:03 16:48 20:39 RBC (4.10-5.20) X 10*6/uL Hgb (12.0-15.0) g/dL Hct (37.2-46.3) % MCHC (32.0-37.0) g/dL RDW (11.5-14.5) % Sodium (135-145) mmol/L Chloride (96-109) mmol/L BUN (9.0-27.0) mg/dL Creatinine (0.6-1.5) mg/dL Est GFR (CKD-EPI) (>=60) BUN/Creatinine Ratio (12.00-20.00) Ratio POC Glucose (mg/dL) 177 H 119 H 167 H (70-110) mg/dL Calcium (8.7-10.3) mg/dL Total Protein (6.2-8.2) g/dL Albumin (3.8-4.9) g/dL Albumin/Globulin Ratio (1.60-3.17) Ratio Crossmatch 06/23/24 Range/Units 04:51 RBC (4.10-5.20) X 10*6/uL Hgb (12.0-15.0) g/dL Hct (37.2-46.3) % MCHC (32.0-37.0) g/dL RDW (11.5-14.5) % Sodium (135-145) mmol/L Chloride (96-109) mmol/L BUN (9.0-27.0) mg/dL Creatinine (0.6-1.5) mg/dL Est GFR (CKD-EPI) (>=60) BUN/Creatinine Ratio (12.00-20.00) Ratio POC Glucose (mg/dL) 129 H (70-110) mg/dL Calcium (8.7-10.3) mg/dL Total Protein (6.2-8.2) g/dL Albumin (3.8-4.9) g/dL Albumin/Globulin Ratio (1.60-3.17) Ratio Crossmatch Assessment and Plan (1) Missed dialysis Current Visit: Yes Status: Acute Code(s): YBJ2777 - SNOMED Code(s): 323844241 (2) Atrial fibrillation Current Visit: No Status: Acute Code(s): I48.91 - UNSPECIFIED ATRIAL FIBRILLATION SNOMED Code(s): 65989027 (3) Cirrhosis of liver with ascites Current Visit: No Status: Acute Code(s): K74.60 - UNSPECIFIED CIRRHOSIS OF LIVER; R18.8 - OTHER ASCITES SNOMED Code(s): 51626167 (4) Diabetes Current Visit: No Status: Acute Code(s): E11.9 - TYPE 2 DIABETES MELLITUS WITHOUT COMPLICATIONS SNOMED Code(s): 73571150 (5) Hyperlipidemia Current Visit: No Status: Acute Code(s): E78.5 - HYPERLIPIDEMIA, UNSPECIFIED SNOMED Code(s): 97293699 Plan: We will go and check CBC and CMP in a.m. Await treatment for bedbug infestation. We will be able to DC once her home is fumigated and cleared from a public health perspective. Appreciate nephrology input. Dialysis today?
[2024-06-23 08:24] LABS: HCT 24.3 % (37.2-46.3); HGB 7.8 g/dL (12.0-15.0); MCH 28.4 pg (27.0-32.0); MCHC 32.1 g/dL (32.0-37.0); MCV 88.4 FL (80.0-97.0); Mean Platelet Volume 10.6 FL (9.5-12.2); NRBC Per 100 WBC 0 X 10*3/uL (0.00-0.01); Platelet Count 161 X 10*3/uL (140-440); RBC 2.75 X 10*6/uL (4.10-5.20); RDW 17.2 % (11.5-14.5); WBC 5.83 X 10*3/uL (4.50-10.00)
[2024-06-23 09:12] LABS: ALT 15 U/L (8-44); AST 34 U/L (13-35); Albumin 2.2 g/dL (3.8-4.9); Albumin/Globulin Ratio 0.92 Ratio (1.60-3.17); Alkaline Phosphatase 82 U/L (41-126); BUN/Creat Ratio 10.09 Ratio (12.00-20.00); Blood Urea Nitrogen 34.3 mg/dL (9.0-27.0); Calcium 7.7 mg/dL (8.7-10.3); Carbon Dioxide 26.6 mmol/L (21.6-31.8); Chloride 96 mmol/L (96-109); Globulin 2.4 g/dL (1.6-3.3); Glucose 96 mg/dL (70-110); Potassium 3.8 mmol/L (3.5-5.5); Sodium 132 mmol/L (135-145); Total Bilirubin 0.4 mg/dL (0.3-1.2); Total Protein 4.6 g/dL (6.2-8.2)
[2024-06-23 11:37] LABS: Glucose,Whole Blood 109 mg/dL (70-110)
--- NOTE | 2024-06-23 13:33 | P.PN ---
Subjective Patient is seen for follow-up for end-stage renal disease. Patient is seen on hemodialysis. Hemoglobin is 7.8 today. Status post packed RBCs transfusion. No significant complaints today. No obvious bleeding noted. Objective - Vital Signs Vital signs: Vital Signs Temp 98.8 F 06/23/24 07:00 Pulse 61 06/23/24 07:00 Resp 18 06/23/24 07:00 BP 102/51 06/23/24 07:00 Pulse Ox 94 L 06/23/24 07:00 FiO2 Intake & Output 06/22/24 06/23/24 06/23/24 18:59 06:59 18:59 Intake Total 710 Output Total 3400 Balance -2690 Weight 112 kg 112 kg Intake: Blood Product 310 Rc As-1 Unit 310 [id number] Hemodialysis 400 Output: Hemodialysis 1900 Hemodialysis Net Amount 1500 Other: Voiding Method Diaper Diaper Diaper Incontinent Incontinent Incontinent # Voids 1 # Bowel Movements 1 - Exam Patient is awake, comfortable, no acute distress Examination of the heart S1 and S2 Examination of the lungs bilateral breath sounds are heard Abdomen soft distended nontender Examination of lower extremities shows 2+ edema, chronic skin changes noted. - Labs CBC & Chem 7: 06/23/24 03:01 06/23/24 03:01 Labs: Abnormal Lab Results - Last 24 Hours (Table) 06/22/24 06/22/24 06/23/24 Range/Units 16:48 20:39 03:01 RBC 2.75 L (4.10-5.20) X 10*6/uL Hgb 7.8 L (12.0-15.0) g/dL Hct 24.3 L (37.2-46.3) % RDW 17.2 H (11.5-14.5) % Sodium (135-145) mmol/L BUN (9.0-27.0) mg/dL Creatinine (0.6-1.5) mg/dL Est GFR (CKD-EPI) (>=60) BUN/Creatinine Ratio (12.00-20.00) Ratio POC Glucose (mg/dL) 119 H 167 H (70-110) mg/dL Calcium (8.7-10.3) mg/dL Total Protein (6.2-8.2) g/dL Albumin (3.8-4.9) g/dL Albumin/Globulin Ratio (1.60-3.17) Ratio 06/23/24 06/23/24 Range/Units 03:01 04:51 RBC (4.10-5.20) X 10*6/uL Hgb (12.0-15.0) g/dL Hct (37.2-46.3) % RDW (11.5-14.5) % Sodium 132 L (135-145) mmol/L BUN 34.3 H (9.0-27.0) mg/dL Creatinine 3.4 H (0.6-1.5) mg/dL Est GFR (CKD-EPI) 13 L (>=60) BUN/Creatinine Ratio 10.09 L (12.00-20.00) Ratio POC Glucose (mg/dL) 129 H (70-110) mg/dL Calcium 7.7 L (8.7-10.3) mg/dL Total Protein 4.6 L (6.2-8.2) g/dL Albumin 2.2 L (3.8-4.9) g/dL Albumin/Globulin Ratio 0.92 L (1.60-3.17) Ratio Assessment and Plan Assessment: 1. End-stage renal disease maintained on hemodialysis on Friday schedule. Started on hemodialysis in April 2024. Has permacath. 2. Hyperkalemia secondary to missed hemodialysis. Also on Entresto. 3. History of liver cirrhosis. Gets regular paracentesis 4. Diabetes mellitus. 5. Anemia of chronic kidney disease. ferritin 106, iron sat 9.1% 6. Hypervolemic hyponatremia, improved with dialysis 7. Anemia with no active bleeding noted status post packed RBCs transfusion. Started on aranesp Plan: Hemodialysis in a.m. Continue Aranesp
[2024-06-23] MEDS ORDERED: ZINC OXIDE PASTE (Z-GUARD) 1 APPLIC TOPICAL PRN (15:46)
[2024-06-23 16:33] LABS: Glucose,Whole Blood 107 mg/dL (70-110)
[2024-06-23 20:33] LABS: Glucose,Whole Blood 92 mg/dL (70-110)
[2024-06-24 06:30] LABS: Glucose,Whole Blood 87 mg/dL (70-110)
--- NOTE | 2024-06-24 08:07 | P.PN ---
Subjective Progress Note Date: 06/24/24 This is an 78-year-old female who was admitted after missing 3 dialysis sessions due to a bedbug infestation in her house. Patient was unable to find transportation to dialysis due to the bedbugs in her home. Patient seen this morning sitting up in bed resting comfortably. She is tolerating diet. Vitals are stable. She did have paracentesis yesterday with 4.6 L of fluid removed. Case management is working on placement for patient. 06/24/2024 Patient seen and evaluated this morning sitting up in bed resting comfortably. She is scheduled to have dialysis today. Hemoglobin did drop on Friday and patient received another unit of packed red blood cells. She was started on Aranesp by nephrology. Patient states there are 2 quotes for her home to be fumigated for bedbugs and are awaiting a decision. Labs not back for today at time of dictation. Vitals are stable. Patient is tolerating diet. Objective - Vital Signs Vital signs: Vital Signs Temp 98.4 F 06/24/24 02:29 Pulse 59 L 06/24/24 02:29 Resp 16 06/24/24 02:29 BP 126/67 06/24/24 02:29 Pulse Ox 95 06/24/24 02:29 FiO2 Intake & Output 06/23/24 06/24/24 06/24/24 18:59 06:59 18:59 Intake Total 760 Balance 760 Weight 111.5 kg Intake: Oral 760 Other: Voiding Method Diaper Diaper Incontinent Incontinent # Voids 1 # Bowel Movements 1 1 - Constitutional General appearance: Present: cooperative, no acute distress - EENT Eyes: Present: PERRLA - Neck Neck: Present: normal ROM. Absent: lymphadenopathy, rigidity - Respiratory Respiratory: bilateral: diminished - Cardiovascular Heart sounds: normal: S1, S2 - Gastrointestinal General gastrointestinal: Present: soft. Absent: tenderness - Integumentary Integumentary: Present: normal, normal turgor - Musculoskeletal Musculoskeletal: Present: generalized weakness - Psychiatric Psychiatric: Present: A&O x's 3 - Labs CBC & Chem 7: 06/23/24 03:01 06/23/24 03:01 Labs: Abnormal Lab Results - Last 24 Hours (Table) 06/23/24 06/23/24 Range/Units 03:01 03:01 RBC 2.75 L (4.10-5.20) X 10*6/uL Hgb 7.8 L (12.0-15.0) g/dL Hct 24.3 L (37.2-46.3) % RDW 17.2 H (11.5-14.5) % Sodium 132 L (135-145) mmol/L BUN 34.3 H (9.0-27.0) mg/dL Creatinine 3.4 H (0.6-1.5) mg/dL Est GFR (CKD-EPI) 13 L (>=60) BUN/Creatinine Ratio 10.09 L (12.00-20.00) Ratio Calcium 7.7 L (8.7-10.3) mg/dL Total Protein 4.6 L (6.2-8.2) g/dL Albumin 2.2 L (3.8-4.9) g/dL Albumin/Globulin Ratio 0.92 L (1.60-3.17) Ratio Assessment and Plan (1) Infestation by bed bug Current Visit: Yes Status: Acute Code(s): B88.8 - OTHER SPECIFIED INFESTATIONS SNOMED Code(s): 32053296 (2) Missed dialysis Current Visit: Yes Status: Acute Code(s): DEF0748 - SNOMED Code(s): 850231261 (3) Ascites Current Visit: No Status: Acute Code(s): R18.8 - OTHER ASCITES SNOMED Code(s): 032394235 (4) Atrial fibrillation Current Visit: No Status: Acute Code(s): I48.91 - UNSPECIFIED ATRIAL FIBRILLATION SNOMED Code(s): 12245385 (5) CAD (coronary artery disease) Current Visit: No Status: Acute Code(s): I25.10 - ATHSCL HEART DISEASE OF [place] CORONARY ARTERY W/O ANG PCTRS SNOMED Code(s): 21635085 (6) Diabetes Current Visit: No Status: Acute Code(s): E11.9 - TYPE 2 DIABETES MELLITUS WITHOUT COMPLICATIONS SNOMED Code(s): 48376896 (7) CKD (chronic kidney disease) Current Visit: No Status: Acute Code(s): N18.9 - CHRONIC KIDNEY DISEASE, UNSPECIFIED SNOMED Code(s): 257916874 (8) Hyperlipidemia Current Visit: No Status: Acute Code(s): E78.5 - HYPERLIPIDEMIA, UNSPECIFIED SNOMED Code(s): 00035290 (9) Hypertension Current Visit: No Status: Acute Code(s): I10 - ESSENTIAL (PRIMARY) H YPERTENSION SNOMED Code(s): 10893985 Plan: Check CBC and CMP in the morning. Awaiting patient's home to be fumigated for bedbugs, once her home is clear and safe, she can be discharged. Patient seen and evaluated by nurse practitioner, physician in agreement with plan.
[2024-06-24 08:28] LABS: ALT 16 U/L (8-44); AST 37 U/L (13-35); Albumin 2.2 g/dL (3.8-4.9); Albumin/Globulin Ratio 0.85 Ratio (1.60-3.17); Alkaline Phosphatase 83 U/L (41-126); BUN/Creat Ratio 9.24 Ratio (12.00-20.00); Blood Urea Nitrogen 38.8 mg/dL (9.0-27.0); Calcium 7.8 mg/dL (8.7-10.3); Carbon Dioxide 24.6 mmol/L (21.6-31.8); Chloride 95 mmol/L (96-109); Globulin 2.6 g/dL (1.6-3.3); Glucose 66 mg/dL (70-110); Sodium 131 mmol/L (135-145); Total Bilirubin 0.3 mg/dL (0.3-1.2); Total Protein 4.8 g/dL (6.2-8.2)
[2024-06-24 08:48] LABS: HCT 25.2 % (37.2-46.3); HGB 7.7 g/dL (12.0-15.0); MCH 27.5 pg (27.0-32.0); MCHC 30.6 g/dL (32.0-37.0); Mean Platelet Volume 10.7 FL (9.5-12.2); NRBC Per 100 WBC 0 X 10*3/uL (0.00-0.01); Platelet Count 190 X 10*3/uL (140-440); RDW 16.7 % (11.5-14.5); WBC 6.45 X 10*3/uL (4.50-10.00)
--- NOTE | 2024-06-24 11:36 | P.PN ---
Subjective Patient is seen for follow-up for end-stage renal disease. Patient did not tolerate hemodialysis today as she was hypotensive. She received her a.m. dose of Coreg. Hemoglobin 7.7 g/dL today No significant complaints today. No obvious bleeding noted. Objective - Vital Signs Vital signs: Vital Signs Temp 98.3 F 06/24/24 06:56 Pulse 56 L 06/24/24 06:56 Resp 18 06/24/24 06:56 BP 137/52 06/24/24 06:56 Pulse Ox 96 06/24/24 06:56 FiO2 Intake & Output 06/23/24 06/24/24 06/24/24 18:59 06:59 18:59 Intake Total 760 Balance 760 Weight 111.5 kg Intake: Oral 760 Other: Voiding Method Diaper Diaper Incontinent Incontinent # Voids 1 # Bowel Movements 1 1 - Exam Patient is awake, comfortable, no acute distress Examination of the heart S1 and S2 Examination of the lungs bilateral breath sounds are heard Abdomen soft distended nontender Examination of lower extremities shows 2+ edema, chronic skin changes noted. - Labs CBC & Chem 7: 06/24/24 03:50 06/24/24 03:50 Labs: Abnormal Lab Results - Last 24 Hours (Table) 06/24/24 06/24/24 Range/Units 03:50 03:50 RBC 2.80 L (4.10-5.20) X 10*6/uL Hgb 7.7 L (12.0-15.0) g/dL Hct 25.2 L (37.2-46.3) % MCHC 30.6 L (32.0-37.0) g/dL RDW 16.7 H (11.5-14.5) % Sodium 131 L (135-145) mmol/L Chloride 95 L (96-109) mmol/L BUN 38.8 H (9.0-27.0) mg/dL Creatinine 4.2 H (0.6-1.5) mg/dL Est GFR (CKD-EPI) 10 L (>=60) BUN/Creatinine Ratio 9.24 L (12.00-20.00) Ratio Glucose 66 L (70-110) mg/dL Calcium 7.8 L (8.7-10.3) mg/dL AST 37 H (13-35) U/L Total Protein 4.8 L (6.2-8.2) g/dL Albumin 2.2 L (3.8-4.9) g/dL Albumin/Globulin Ratio 0.85 L (1.60-3.17) Ratio Assessment and Plan Assessment: 1. End-stage renal disease maintained on hemodialysis on Friday schedule. Started on hemodialysis in April 2024. Has permacath. 2. Hyperkalemia secondary to missed hemodialysis. Also on Entresto. 3. History of liver cirrhosis. Gets regular paracentesis 4. Diabetes mellitus. 5. Anemia of chronic kidney disease. ferritin 106, iron sat 9.1% 6. Hypervolemic hyponatremia, improved with dialysis 7. Anemia with no active bleeding noted status post packed RBCs transfusion. Started on aranesp Plan: Hemodialysis in a.m. as patient did not tolerate her treatment today due to hypotension. Hold antihypertensive medications in a.m. prior to dialysis. Continue Aranesp
[2024-06-24 11:39] LABS: Glucose,Whole Blood 162 mg/dL (70-110)
[2024-06-24 16:50] LABS: Glucose,Whole Blood 160 mg/dL (70-110)
[2024-06-24 20:42] LABS: Glucose,Whole Blood 158 mg/dL (70-110)
[2024-06-24] MEDS: ALPRAZolam 0.25 MG TAB PO PRN (21:14)
[2024-06-25 06:30] LABS: Glucose,Whole Blood 116 mg/dL (70-110)
--- NOTE | 2024-06-25 08:04 | P.PN ---
Subjective Principal diagnosis: This continue rest 78-year-old white female essentially admitted due to the fact that there is bedbug infestation in her house and she is unable to stay there in good health has an underlying history of end-stage renal disease and is bedbound. The patient is scheduled for dialysis today as per protocol. We are still awaiting placement issue due to her immobility and dialysis need. She states that a quill cleaner will be coming to the house where she lives currently to give estimates on fumigating house for bedbug eradication. Hopefully this is done by next week Objective - Vital Signs Vital signs: Vital Signs Temp 98.2 F 06/25/24 01:09 Pulse 59 L 06/25/24 01:09 Resp 17 06/25/24 01:09 BP 128/65 06/25/24 01:09 Pulse Ox 96 06/25/24 01:09 FiO2 Intake & Output 06/24/24 06/25/24 06/25/24 18:59 06:59 18:59 Intake Total 1390 Output Total 850 Balance 540 Weight 114 kg Intake: Oral 540 Hemodialysis 850 Output: Hemodialysis 450 Hemodialysis Net Amount 400 Other: Voiding Method Diaper Diaper Incontinent # Voids 1 # Bowel Movements 1 - Constitutional General appearance: Present: average body habitus, no acute distress, obese - EENT Eyes: Absent: abnormal pupil - Neck Neck: Absent: lymphadenopathy - Respiratory Respiratory: bilateral: diminished - Cardiovascular Rhythm: irregularly irregular Heart sounds: normal: S1, S2 Abnormal Heart Sounds: Absent: S3 Gallop - Gastrointestinal General gastrointestinal: Present: soft. Absent: tenderness - Labs CBC & Chem 7: 06/24/24 03:50 06/24/24 03:50 Labs: Abnormal Lab Results - Last 24 Hours (Table) 06/24/24 06/24/24 06/24/24 Range/Units 03:50 03:50 11:38 RBC 2.80 L (4.10-5.20) X 10*6/uL Hgb 7.7 L (12.0-15.0) g/dL Hct 25.2 L (37.2-46.3) % MCHC 30.6 L (32.0-37.0) g/dL RDW 16.7 H (11.5-14.5) % Sodium 131 L (135-145) mmol/L Chloride 95 L (96-109) mmol/L BUN 38.8 H (9.0-27.0) mg/dL Creatinine 4.2 H (0.6-1.5) mg/dL Est GFR (CKD-EPI) 10 L (>=60) BUN/Creatinine Ratio 9.24 L (12.00-20.00) Ratio Glucose 66 L (70-110) mg/dL POC Glucose (mg/dL) 162 H (70-110) mg/dL Calcium 7.8 L (8.7-10.3) mg/dL AST 37 H (13-35) U/L Total Protein 4.8 L (6.2-8.2) g/dL Albumin 2.2 L (3.8-4.9) g/dL Albumin/Globulin Ratio 0.85 L (1.60-3.17) Ratio 06/24/24 06/24/24 06/25/24 Range/Units 16:49 20:41 06:29 RBC (4.10-5.20) X 10*6/uL Hgb (12.0-15.0) g/dL Hct (37.2-46.3) % MCHC (32.0-37.0) g/dL RDW (11.5-14.5) % Sodium (135-145) mmol/L Chloride (96-109) mmol/L BUN (9.0-27.0) mg/dL Creatinine (0.6-1.5) mg/dL Est GFR (CKD-EPI) (>=60) BUN/Creatinine Ratio (12.00-20.00) Ratio Glucose (70-110) mg/dL POC Glucose (mg/dL) 160 H 158 H 116 H (70-110) mg/dL Calcium (8.7-10.3) mg/dL AST (13-35) U/L Total Protein (6.2-8.2) g/dL Albumin (3.8-4.9) g/dL Albumin/Globulin Ratio (1.60-3.17) Ratio Assessment and Plan (1) Missed dialysis Current Visit: Yes Status: Acute Code(s): UBE7246 - SNOMED Code(s): 395849192 (2) Atrial fibrillation Current Visit: No Status: Acute Code(s): I48.91 - UNSPECIFIED ATRIAL FIBRILLATION SNOMED Code(s): 23661545 (3) Cirrhosis of liver with ascites Current Visit: No Status: Acute Code(s): K74.60 - UNSPECIFIED CIRRHOSIS OF LIVER; R18.8 - OTHER ASCITES SNOMED Code(s): 82237101 (4) Diabetes Current Visit: No Status: Acute Code(s): E11.9 - TYPE 2 DIABETES MELLITUS WITHOUT COMPLICATIONS SNOMED Code(s): 49442741 (5) Hyperlipidemia Current Visit: No Status: Acute Code(s): E78.5 - HYPERLIPIDEMIA, UNSPECIFIED SNOMED Code(s): 38645253 Plan: We will go and check CBC and CMP in a.m. Await treatment for bedbug infestation. We will be able to DC once her home is fumigated and cleared from a public health perspective. Appreciate nephrology input. Dialysis today? Restart Lucy Time with Patient: Less than 30
[2024-06-25 08:51] LABS: HCT 25.3 % (37.2-46.3); HGB 7.9 g/dL (12.0-15.0); MCH 27.6 pg (27.0-32.0); MCHC 31.2 g/dL (32.0-37.0); MCV 88.5 FL (80.0-97.0); Mean Platelet Volume 10.8 FL (9.5-12.2); NRBC Per 100 WBC 0 X 10*3/uL (0.00-0.01); Platelet Count 160 X 10*3/uL (140-440); RBC 2.86 X 10*6/uL (4.10-5.20); RDW 16.3 % (11.5-14.5); WBC 6.76 X 10*3/uL (4.50-10.00)
[2024-06-25 08:53] LABS: BUN/Creat Ratio 10.24 Ratio (12.00-20.00); Carbon Dioxide 23.5 mmol/L (21.6-31.8); Chloride 94 mmol/L (96-109); Glucose 99 mg/dL (70-110); Potassium 4.4 mmol/L (3.5-5.5); Sodium 129 mmol/L (135-145)
[2024-06-25 08:54] LABS: ALT 16 U/L (8-44); AST 42 U/L (13-35); Albumin 2.3 g/dL (3.8-4.9); Albumin/Globulin Ratio 0.85 Ratio (1.60-3.17); Alkaline Phosphatase 87 U/L (41-126); Calcium 7.8 mg/dL (8.7-10.3); Globulin 2.7 g/dL (1.6-3.3); Total Bilirubin 0.3 mg/dL (0.3-1.2)
[2024-06-25 11:49] LABS: Glucose,Whole Blood 149 mg/dL (70-110)
[2024-06-25] MEDS: APIXABAN 5 MG TAB PO SCH (12:23)
--- NOTE | 2024-06-25 15:32 | P.PN ---
Subjective Patient is seen for follow-up for end-stage renal disease. Patient is seen on hemodialysis. Tolerating treatment fairly well No significant complaints today. Hemoglobin 7.9 g/dL today No obvious bleeding noted. Objective - Vital Signs Vital signs: Vital Signs Temp 98.5 F 06/25/24 13:41 Pulse 89 06/25/24 13:41 Resp 18 06/25/24 13:41 BP 103/59 06/25/24 13:41 Pulse Ox 97 06/25/24 13:41 FiO2 Intake & Output 06/24/24 06/25/24 06/25/24 18:59 06:59 18:59 Intake Total 1390 Output Total 850 Balance 540 Weight 114 kg 114 kg Intake: Oral 540 Hemodialysis 850 Output: Hemodialysis 450 Hemodialysis Net Amount 400 Other: Voiding Method Diaper Diaper Incontinent # Voids 1 # Bowel Movements 1 - Exam Patient is awake, comfortable, no acute distress Examination of the heart S1 and S2 Examination of the lungs bilateral breath sounds are heard Abdomen soft distended nontender Examination of lower extremities shows 2+ edema, chronic skin changes noted. - Labs CBC & Chem 7: 06/25/24 05:19 06/25/24 05:19 Labs: Abnormal Lab Results - Last 24 Hours (Table) 06/24/24 06/24/24 06/25/24 Range/Units 16:49 20:41 05:19 RBC 2.86 L (4.10-5.20) X 10*6/uL Hgb 7.9 L (12.0-15.0) g/dL Hct 25.3 L (37.2-46.3) % MCHC 31.2 L (32.0-37.0) g/dL RDW 16.3 H (11.5-14.5) % Sodium (135-145) mmol/L Chloride (96-109) mmol/L BUN (9.0-27.0) mg/dL Creatinine (0.6-1.5) mg/dL Est GFR (CKD-EPI) (>=60) BUN/Creatinine Ratio (12.00-20.00) Ratio POC Glucose (mg/dL) 160 H 158 H (70-110) mg/dL Calcium (8.7-10.3) mg/dL AST (13-35) U/L Total Protein (6.2-8.2) g/dL Albumin (3.8-4.9) g/dL Albumin/Globulin Ratio (1.60-3.17) Ratio 06/25/24 06/25/24 06/25/24 Range/Units 05:19 06:29 11:48 RBC (4.10-5.20) X 10*6/uL Hgb (12.0-15.0) g/dL Hct (37.2-46.3) % MCHC (32.0-37.0) g/dL RDW (11.5-14.5) % Sodium 129 L (135-145) mmol/L Chloride 94 L (96-109) mmol/L BUN 43.0 H (9.0-27.0) mg/dL Creatinine 4.2 H (0.6-1.5) mg/dL Est GFR (CKD-EPI) 10 L (>=60) BUN/Creatinine Ratio 10.24 L (12.00-20.00) Ratio POC Glucose (mg/dL) 116 H 149 H (70-110) mg/dL Calcium 7.8 L (8.7-10.3) mg/dL AST 42 H (13-35) U/L Total Protein 5.0 L (6.2-8.2) g/dL Albumin 2.3 L (3.8-4.9) g/dL Albumin/Globulin Ratio 0.85 L (1.60-3.17) Ratio Assessment and Plan Assessment: 1. End-stage renal disease maintained on hemodialysis on Friday schedule. Started on hemodialysis in April 2024. Has permacath. 2. Hyperkalemia secondary to missed hemodialysis. Also on Entresto. 3. History of liver cirrhosis. Gets regular paracentesis 4. Diabetes mellitus. 5. Anemia of chronic kidney disease. ferritin 106, iron sat 9.1% 6. Hypervolemic hyponatremia, improved with dialysis 7. Anemia with no active bleeding noted status post packed RBCs transfusion. Started on aranesp Plan: Hemodialysis in a.m. patient is being dialyzed today as she did not tolerate treatment yesterday due to hypotension. Hold antihypertensive medications in a.m. prior to dialysis. Continue Aranesp
[2024-06-25 16:50] LABS: Glucose,Whole Blood 183 mg/dL (70-110)
[2024-06-25 20:24] LABS: Glucose,Whole Blood 170 mg/dL (70-110)
[2024-06-26 06:17] LABS: Glucose,Whole Blood 116 mg/dL (70-110)
[2024-06-26 09:32] LABS: HCT 25.5 % (37.2-46.3); HGB 7.8 g/dL (12.0-15.0); MCH 28.1 pg (27.0-32.0); MCHC 30.6 g/dL (32.0-37.0); MCV 91.7 FL (80.0-97.0); Mean Platelet Volume 10.4 FL (9.5-12.2); NRBC Per 100 WBC 0 X 10*3/uL (0.00-0.01); Platelet Count 154 X 10*3/uL (140-440); RBC 2.78 X 10*6/uL (4.10-5.20); RDW 16.3 % (11.5-14.5); WBC 7.04 X 10*3/uL (4.50-10.00)
[2024-06-26 09:50] LABS: ALT 17 U/L (8-44); AST 35 U/L (13-35); Albumin 2.4 g/dL (3.8-4.9); Albumin/Globulin Ratio 0.96 Ratio (1.60-3.17); Alkaline Phosphatase 88 U/L (41-126); BUN/Creat Ratio 9.85 Ratio (12.00-20.00); Blood Urea Nitrogen 32.5 mg/dL (9.0-27.0); Calcium 7.9 mg/dL (8.7-10.3); Carbon Dioxide 25.4 mmol/L (21.6-31.8); Chloride 100 mmol/L (96-109); Globulin 2.5 g/dL (1.6-3.3); Glucose 108 mg/dL (70-110); Potassium 3.9 mmol/L (3.5-5.5); Sodium 135 mmol/L (135-145); Total Bilirubin 0.3 mg/dL (0.3-1.2); Total Protein 4.9 g/dL (6.2-8.2)
[2024-06-26 10:53] LABS: Glucose,Whole Blood 204 mg/dL (70-110)
--- NOTE | 2024-06-26 11:47 | P.PN ---
Subjective Patient is seen in follow-up for end-stage renal disease. Tolerating dialysis well. No active complaints. Vital signs are stable. General: No acute distress. HEENT: Head exam is unremarkable. LUNGS: No audible rhonchi or wheezes. HEART: Rate and Rhythm are regular. ABDOMEN: Nontender. EXTREMITITES: 1+ edema. Objective - Vital Signs Vital signs: Vital Signs Temp 98.5 F 06/26/24 06:53 Pulse 118 H 06/26/24 09:20 Resp 18 06/26/24 06:53 BP 115/65 06/26/24 09:20 Pulse Ox 91 L 06/26/24 09:20 FiO2 Intake & Output 06/25/24 06/26/24 06/26/24 18:59 06:59 18:59 Intake Total 1040 Output Total 2500 Balance -1460 Weight 114 kg 115.5 kg Intake: Oral 540 Hemodialysis 500 Output: Hemodialysis 1500 Hemodialysis Net Amount 1000 Other: Voiding Method Diaper Incontinent Incontinent Incontinent # Voids 2 3 # Bowel Movements 1 1 - Labs CBC & Chem 7: 06/26/24 05:18 06/26/24 05:18 Labs: Abnormal Lab Results - Last 24 Hours (Table) 06/25/24 06/25/24 06/25/24 Range/Units 11:48 16:49 20:22 RBC (4.10-5.20) X 10*6/uL Hgb (12.0-15.0) g/dL Hct (37.2-46.3) % MCHC (32.0-37.0) g/dL RDW (11.5-14.5) % BUN (9.0-27.0) mg/dL Creatinine (0.6-1.5) mg/dL Est GFR (CKD-EPI) (>=60) BUN/Creatinine Ratio (12.00-20.00) Ratio POC Glucose (mg/dL) 149 H 183 H 170 H (70-110) mg/dL Calcium (8.7-10.3) mg/dL Total Protein (6.2-8.2) g/dL Albumin (3.8-4.9) g/dL Albumin/Globulin Ratio (1.60-3.17) Ratio 06/26/24 06/26/24 06/26/24 Range/Units 05:18 05:18 06:16 RBC 2.78 L (4.10-5.20) X 10*6/uL Hgb 7.8 L (12.0-15.0) g/dL Hct 25.5 L (37.2-46.3) % MCHC 30.6 L (32.0-37.0) g/dL RDW 16.3 H (11.5-14.5) % BUN 32.5 H (9.0-27.0) mg/dL Creatinine 3.3 H (0.6-1.5) mg/dL Est GFR (CKD-EPI) 14 L (>=60) BUN/Creatinine Ratio 9.85 L (12.00-20.00) Ratio POC Glucose (mg/dL) 116 H (70-110) mg/dL Calcium 7.9 L (8.7-10.3) mg/dL Total Protein 4.9 L (6.2-8.2) g/dL Albumin 2.4 L (3.8-4.9) g/dL Albumin/Globulin Ratio 0.96 L (1.60-3.17) Ratio 04// Range/Units 10:51 RBC (4.10-5.20) X 10*6/uL Hgb (12.0-15.0) g/dL Hct (37.2-46.3) % MCHC (32.0-37.0) g/dL RDW (11.5-14.5) % BUN (9.0-27.0) mg/dL Creatinine (0.6-1.5) mg/dL Est GFR (CKD-EPI) (>=60) BUN/Creatinine Ratio (12.00-20.00) Ratio POC Glucose (mg/dL) 204 H (70-110) mg/dL Calcium (8.7-10.3) mg/dL Total Protein (6.2-8.2) g/dL Albumin (3.8-4.9) g/dL Albumin/Globulin Ratio (1.60-3.17) Ratio Assessment and Plan Plan: Assessment: 1. End-stage renal disease maintained on hemodialysis on Friday schedule. Started on hemodialysis in April 2024. Has permacath. 2. Hyperkalemia secondary to missed hemodialysis. Also on Entresto. Improved. 3. History of liver cirrhosis. Gets regular paracentesis in the next 1 scheduled for Friday.. 4. Diabetes mellitus. 5. Anemia of chronic kidney disease. On Aranesp. 6. Hypervolemic hyponatremia. Plan: Currently seen while undergoing hemodialysis. Maintain low-salt diet and fluid restriction. Maintain Lasix. Maintain midodrine. Will give additional midodrine during dialysis if needed.
--- NOTE | 2024-06-26 14:53 | P.PN ---
Subjective Progress Note Date: 06/26/24 This is a history of physical and 78-year-old white female with known history of end-stage renal disease who has had transportation security. Also, there has been of bedbug infestation in her household which needs to be taken care of before she goes home. She has missed dialysis this week and is now admitted for appropriate treatment. Appreciate nephrology input. She is lying comfortably alert and oriented. 06/19. Patient seen and examined. Hemoglobin this morning is 5.9, no complaint of any blood in the stools. Patient is tachycardic. Will order 2 units of packed red blood cell a, anemia workup and FOBT ordered 06/20. Patient seen and examined. Patient only received 1 unit of packed red blood cells yesterday. Denies any blood in the stools. States she feels better. 06/26. Dr. serna took over care from Dr. Shirley. Labs reviewed, showed WBC 7.04, hemoglobin 7.8, platelet count 154, sodium 137 potassium 3.9, BUN 32.5, creatinine 3.3. currently undergoing dialysis. No acute issue overnight REVIEW OF SYSTEMS: CONSTITUTIONAL: No fever, no malaise,. CARDIOVASCULAR: No chest pain, no palpitations, no syncope. PULMONARY: No shortness of breath, no cough, GASTROINTESTINAL: No diarrhea, no nausea, no vomiting, no abdominal pain. NEUROLOGICAL: No headaches, no weakness, PHYSICAL EXAMINATION: GENERAL: The patient is alert and oriented x3, not in any acute distress. Well developed, well nourished. HEENT: Pupils are round and equally reacting to light. EOMI. No scleral icterus. No conjunctival pallor. Normocephalic, atraumatic. No pharyngeal erythema. No thyromegaly. CARDIOVASCULAR: S1 and S2 present. No murmurs, rubs, or gallops. PULMONARY: Chest is clear to auscultation, no wheezing or crackles. ABDOMEN: Soft, nontender, nondistended, normoactive bowel sounds. No palpable organomegaly. MUSCULOSKELETAL: No joint swelling or deformity. EXTREMITIES: No cyanosis, clubbing, or pedal edema. NEUROLOGICAL: Gross neurological examination did not reveal any focal deficits. SKIN: No rashes. Assessment and plan End-stage renal disease on dialysis Acute on chronic anemia Missed dialysis session Bedbug infestation Alcoholic liver disease Monitor vital signs Monitor CBC Monitor CMP Continue Coreg, Lipitor Continue Eliquis Continue Entresto Monitor blood sugar levels, continue current insulin regimen Nephrology following for maintenance dialysis Labs and medication were reviewed.. Continue same treatment. Continue with symptomatic treatment. Resume home medication. Monitor labs and vitals. DVT and GI prophylaxis. Further recommendations as per clinical course of the patient Dictation was produced using [employer] dictation software. please excuse any grammatical, word or spelling errors. Objective - Vital Signs Vital signs: Vital Signs Temp 98.5 F 06/26/24 06:53 Pulse 118 H 06/26/24 09:20 Resp 18 06/26/24 06:53 BP 115/65 06/26/24 09:20 Pulse Ox 91 L 06/26/24 09:20 FiO2 Intake & Output 06/25/24 06/26/24 06/26/24 18:59 06:59 18:59 Intake Total 1040 Output Total 2500 Balance -1460 Weight 114 kg 115.5 kg Intake: Oral 540 Hemodialysis 500 Output: Hemodialysis 1500 Hemodialysis Net Amount 1000 Other: Voiding Method Diaper Incontinent Incontinent Incontinent # Voids 2 3 # Bowel Movements 1 1 - Labs CBC & Chem 7: 06/26/24 05:18 06/26/24 05:18 Labs: Abnormal Lab Results - Last 24 Hours (Table) 06/25/24 06/25/24 06/25/24 Range/Units 11:48 16:49 20:22 RBC (4.10-5.20) X 10*6/uL Hgb (12.0-15.0) g/dL Hct (37.2-46.3) % MCHC (32.0-37.0) g/dL RDW (11.5-14.5) % BUN (9.0-27.0) mg/dL Creatinine (0.6-1.5) mg/dL Est GFR (CKD-EPI) (>=60) BUN/Creatinine Ratio (12.00-20.00) Ratio POC Glucose (mg/dL) 149 H 183 H 170 H (70-110) mg/dL Calcium (8.7-10.3) mg/dL Total Protein (6.2-8.2) g/dL Albumin (3.8-4.9) g/dL Albumin/Globulin Ratio (1.60-3.17) Ratio 06/26/24 06/26/24 06/26/24 Range/Units 05:18 05:18 06:16 RBC 2.78 L (4.10-5.20) X 10*6/uL Hgb 7.8 L (12.0-15.0) g/dL Hct 25.5 L (37.2-46.3) % MCHC 30.6 L (32.0-37.0) g/dL RDW 16.3 H (11.5-14.5) % BUN 32.5 H (9.0-27.0) mg/dL Creatinine 3.3 H (0.6-1.5) mg/dL Est GFR (CKD-EPI) 14 L (>=60) BUN/Creatinine Ratio 9.85 L (12.00-20.00) Ratio POC Glucose (mg/dL) 116 H (70-110) mg/dL Calcium 7.9 L (8.7-10.3) mg/dL Total Protein 4.9 L (6.2-8.2) g/dL Albumin 2.4 L (3.8-4.9) g/dL Albumin/Globulin Ratio 0.96 L (1.60-3.17) Ratio
[2024-06-26 16:13] LABS: Glucose,Whole Blood 152 mg/dL (70-110)
[2024-06-26 21:00] LABS: Glucose,Whole Blood 141 mg/dL (70-110)
[2024-06-27 06:25] LABS: Glucose,Whole Blood 98 mg/dL (70-110)
[2024-06-27] MEDS: TOUJEO 300 UNIT/ML SQ PRN (06:42)
[2024-06-27 10:26] LABS: Glucose,Whole Blood 181 mg/dL (70-110)
--- NOTE | 2024-06-27 10:57 | P.PN ---
Subjective Patient is seen in follow-up for end-stage renal disease. Completed dialysis yesterday with 1.5 L ultrafiltration. No active complaints. Vital signs are stable. General: No acute distress. HEENT: Head exam is unremarkable. LUNGS: No audible rhonchi or wheezes. HEART: Rate and Rhythm are regular. ABDOMEN: Nontender. EXTREMITITES: 1+ edema. Objective - Vital Signs Vital signs: Vital Signs Temp 98.3 F 06/27/24 07:31 Pulse 58 L 06/27/24 07:31 Resp 18 06/27/24 07:31 BP 119/63 06/27/24 07:31 Pulse Ox 94 L 06/27/24 07:31 FiO2 Intake & Output 06/26/24 06/27/24 06/27/24 18:59 06:59 18:59 Intake Total 400 500 Output Total 3400 Balance -3000 500 Weight 110.5 kg Intake: Oral 500 Hemodialysis 400 Output: Hemodialysis 1900 Hemodialysis Net Amount 1500 Other: Voiding Method Incontinent Incontinent Incontinent # Voids 2 1 # Bowel Movements 0 - Labs CBC & Chem 7: 06/26/24 05:18 06/26/24 05:18 Labs: Abnormal Lab Results - Last 24 Hours (Table) 06/26/24 06/26/24 06/27/24 Range/Units 16:12 20:58 10:24 POC Glucose (mg/dL) 152 H 141 H 181 H (70-110) mg/dL Assessment and Plan Plan: Assessment: 1. End-stage renal disease maintained on hemodialysis on Friday schedule. Started on hemodialysis in April 2024. Has permacath. 2. Hyperkalemia secondary to missed hemodialysis. Also on Entresto. Improved. 3. History of liver cirrhosis. Gets regular paracentesis in the next 1 scheduled for Friday. 4. Diabetes mellitus. 5. Anemia of chronic kidney disease. On Ara. 6. Hypervolemic hyponatremia. Improved. Plan: Hemodialysis Friday. Maintain low-salt diet and fluid restriction. Maintain Lasix. Maintain midodrine. Will give additional midodrine during dialysis if needed. Anticipate discharge soon.
--- NOTE | 2024-06-27 13:09 | P.PN ---
Subjective Progress Note Date: 06/27/24 This is a history of physical and 78-year-old white female with known history of end-stage renal disease who has had transportation security. Also, there has been of bedbug infestation in her household which needs to be taken care of before she goes home. She has missed dialysis this week and is now admitted for appropriate treatment. Appreciate nephrology input. She is lying comfortably alert and oriented. 06/19. Patient seen and examined. Hemoglobin this morning is 5.9, no complaint of any blood in the stools. Patient is tachycardic. Will order 2 units of packed red blood cell a, anemia workup and FOBT ordered 06/20. Patient seen and examined. Patient only received 1 unit of packed red blood cells yesterday. Denies any blood in the stools. States she feels better. 06/26. Dr. serna took over care from Dr. Shirley. Labs reviewed, showed WBC 7.04, hemoglobin 7.8, platelet count 154, sodium 137 potassium 3.9, BUN 32.5, creatinine 3.3. currently undergoing dialysis. No acute issue overnight 06/27. Patient seen and examined. Vital signs this morning show temperature 98.3, heart rate 58, respiration 18, blood pressure 119/63. Denies any chest pain. Denies any nausea or vomiting. Denies any lightheaded dizziness REVIEW OF SYSTEMS: CONSTITUTIONAL: No fever, no malaise,. CARDIOVASCULAR: No chest pain, no palpitations, no syncope. PULMONARY: No shortness of breath, no cough, GASTROINTESTINAL: No diarrhea, no nausea, no vomiting, no abdominal pain. NEUROLOGICAL: No headaches, no weakness, PHYSICAL EXAMINATION: GENERAL: The patient is alert and oriented x3, not in any acute distress. Well developed, well nourished. HEENT: Pupils are round and equally reacting to light. EOMI. No scleral icterus. No conjunctival pallor. Normocephalic, atraumatic. No pharyngeal erythema. No thyromegaly. CARDIOVASCULAR: S1 and S2 present. No murmurs, rubs, or gallops. PULMONARY: Chest is clear to auscultation, no wheezing or crackles. ABDOMEN: Soft, nontender, nondistended, normoactive bowel sounds. No palpable organomegaly. MUSCULOSKELETAL: No joint swelling or deformity. EXTREMITIES: No cyanosis, clubbing, or pedal edema. NEUROLOGICAL: Gross neurological examination did not reveal any focal deficits. SKIN: No rashes. Assessment and plan End-stage renal disease on dialysis Acute on chronic anemia Missed dialysis session Bedbug infestation Alcoholic liver disease Monitor vital signs Monitor CBC Monitor CMP Continue Coreg, Lipitor Continue Eliquis Continue Entresto Monitor blood sugar levels, continue current insulin regimen Nephrology following for maintenance dialysis Labs and medication were reviewed.. Continue same treatment. Continue with symptomatic treatment. Resume home medication. Monitor labs and vitals. DVT and GI prophylaxis. Further recommendations as per clinical course of the patient Dictation was produced using [employer] dictation software. please excuse any grammatical, word or spelling errors. Objective - Vital Signs Vital signs: Vital Signs Temp 98.3 F 06/27/24 07:31 Pulse 58 L 06/27/24 07:31 Resp 18 06/27/24 07:31 BP 119/63 06/27/24 07:31 Pulse Ox 94 L 06/27/24 07:31 FiO2 Intake & Output 06/26/24 06/27/24 06/27/24 18:59 06:59 18:59 Intake Total 400 500 Output Total 3400 Balance -3000 500 Weight 110.5 kg Intake: Oral 500 Hemodialysis 400 Output: Hemodialysis 1900 Hemodialysis Net Amount 1500 Other: Voiding Method Incontinent Incontinent Incontinent # Voids 2 1 # Bowel Movements 0 - Labs CBC & Chem 7: 06/26/24 05:18 06/26/24 05:18 Labs: Abnormal Lab Results - Last 24 Hours (Table) 06/26/24 06/26/24 06/26/24 Range/Units 10:51 16:12 20:58 POC Glucose (mg/dL) 204 H 152 H 141 H (70-110) mg/dL 06/27/24 Range/Units 10:24 POC Glucose (mg/dL) 181 H (70-110) mg/dL
[2024-06-27 16:50] LABS: Glucose,Whole Blood 140 mg/dL (70-110)
[2024-06-27 19:38] LABS: Glucose,Whole Blood 224 mg/dL (70-110)
[2024-06-28 05:58] LABS: Glucose,Whole Blood 118 mg/dL (70-110)
--- NOTE | 2024-06-28 08:43 | P.PN ---
Subjective Progress Note Date: 06/28/24 This is an 78-year-old female who was admitted after missing 3 dialysis sessions due to a bedbug infestation in her house. Patient was unable to find transportation to dialysis due to the bedbugs in her home. Patient seen this morning sitting up in bed resting comfortably. She is tolerating diet. Vitals are stable. She did have paracentesis yesterday with 4.6 L of fluid removed. Case management is working on placement for patient. 06/24/2024 Patient seen and evaluated this morning sitting up in bed resting comfortably. She is scheduled to have dialysis today. Hemoglobin did drop on Friday and patient received another unit of packed red blood cells. She was started on Aranesp by nephrology. Patient states there are 2 quotes for her home to be fumigated for bedbugs and are awaiting a decision. Labs not back for today at time of dictation. Vitals are stable. Patient is tolerating diet. 06/28/2024 Patient seen and evaluated sitting up in bed resting comfortably this morning. Her vitals and lab work have been stable. Still awaiting her home to be fumigated for bedbugs. She is awaiting the company assisting her to pick which of the 2 quotes they would like. Objective - Vital Signs Vital signs: Vital Signs Temp 98.5 F 06/28/24 07:09 Pulse 62 06/28/24 07:09 Resp 17 06/28/24 07:09 BP 132/72 06/28/24 07:09 Pulse Ox 96 06/28/24 07:09 FiO2 Intake & Output 06/27/24 06/28/24 06/28/24 18:59 06:59 18:59 Weight 112 kg Other: Voiding Method Incontinent Incontinent Incontinent # Voids 1 - Constitutional General appearance: Present: cooperative, no acute distress - EENT Eyes: Present: PERRLA - Neck Neck: Present: normal ROM. Absent: lymphadenopathy, rigidity - Respiratory Respiratory: bilateral: diminished - Cardiovascular Heart sounds: normal: S1, S2 - Gastrointestinal General gastrointestinal: Present: soft. Absent: tenderness - Integumentary Integumentary: Present: normal, normal turgor - Musculoskeletal Musculoskeletal: Present: generalized weakness - Psychiatric Psychiatric: Present: A&O x's 3 - Labs CBC & Chem 7: 06/26/24 05:18 06/26/24 05:18 Labs: Abnormal Lab Results - Last 24 Hours (Table) 06/27/24 06/27/24 06/27/24 Range/Units 10:24 16:49 19:35 POC Glucose (mg/dL) 181 H 140 H 224 H (70-110) mg/dL 06/28/24 Range/Units 05:57 POC Glucose (mg/dL) 118 H (70-110) mg/dL Assessment and Plan (1) Infestation by bed bug Current Visit: Yes Status: Acute Code(s): B88.8 - OTHER SPECIFIED INFESTATIONS SNOMED Code(s): 05188212 (2) Missed dialysis Current Visit: Yes Status: Acute Code(s): STO6392 - SNOMED Code(s): 88914 4002 (3) Ascites Current Visit: No Status: Acute Code(s): R18.8 - OTHER ASCITES SNOMED C ode(s): 822532267 (4) Atrial fibrillation Current Visit: No Status: Acute Code(s): I48.91 - UNSPECIFIED ATRIAL FIBRILLATION SNOMED Code(s): 28556446 (5) CAD (coronary artery disease) Current Visit: No Status: Acute Code(s): I25.10 - ATHSCL HEART DISEASE OF [place] CORONARY ARTERY W/O ANG PCTRS SNOMED Code(s): 88468904 (6) Diabetes Current Visit: No Status: Acute Code(s): E11.9 - TYPE 2 DIABETES MELLITUS WITHOUT COMPLICATIONS SNOMED Code(s): 51099028 (7) CKD (chronic kidney disease) Current Visit: No Status: Acute Code(s): N18.9 - CHRONIC KIDNEY DISEASE, UNSPECIFIED SNOMED Code(s): 282318239 (8) Hyperlipidemia Current Visit: No Status: Acute Code(s): E78.5 - HYPERLIPIDEMIA, UNSPECIFIED SNOMED Code(s): 65545170 (9) Hypertension Current Visit: No Status: Acute Code(s): I10 - ESSENTIAL (PRIMARY) HYPERTENSION SNOMED Code(s): 02278127 Plan: Check CBC and CMP in the morning. Awaiting patient's home to be fumigated for bedbugs, once her home is clear and safe, she can be discharged. Patient seen and evaluated by nurse practitioner, physician in agreement with plan.
--- NOTE | 2024-06-28 10:31 | P.PN ---
Subjective Patient is seen in follow-up for end-stage renal disease. Resting in bed. No active complaints. Vital signs are stable. General: No acute distress. HEENT: Head exam is unremarkable. LUNGS: No audible rhonchi or wheezes. HEART: Rate and Rhythm are regular. ABDOMEN: Nontender. EXTREMITITES: 1+ edema. Objective - Vital Signs Vital signs: Vital Signs Temp 98.5 F 06/28/24 07:09 Pulse 62 06/28/24 07:09 Resp 17 06/28/24 07:09 BP 132/72 06/28/24 07:09 Pulse Ox 96 06/28/24 07:09 FiO2 Intake & Output 06/27/24 06/28/24 06/28/24 18:59 06:59 18:59 Weight 112 kg Other: Voiding Method Incontinent Incontinent Incontinent # Voids 1 - Labs CBC & Chem 7: 06/26/24 05:18 06/26/24 05:18 Labs: Abnormal Lab Results - Last 24 Hours (Table) 06/27/24 06/27/24 06/28/24 Range/Units 16:49 19:35 05:57 POC Glucose (mg/dL) 140 H 224 H 118 H (70-110) mg/dL Assessment and Plan Plan: Assessment: 1. End-stage renal disease maintained on hemodialysis on Friday schedule. Started on hemodialysis in April 2024. Has permacath. 2. Hyperkalemia secondary to missed hemodialysis. Also on Entresto. Improved. 3. History of liver cirrhosis. Gets regular paracentesis in the next 1 scheduled for Friday. 4. Diabetes mellitus. 5. Anemia of chronic kidney disease. On Aranesp. 6. Hypervolemic hyponatremia. Improved. Plan: Hemodialysis Friday. Maintain low-salt diet and fluid restriction. Maintain Lasix. Maintain midodrine. Will give additional midodrine during dialysis if needed. Anticipate discharge soon.
[2024-06-28 11:35] LABS: Glucose,Whole Blood 191 mg/dL (70-110)
[2024-06-28 16:35] LABS: Glucose,Whole Blood 164 mg/dL (70-110)
[2024-06-28 20:16] LABS: Glucose,Whole Blood 209 mg/dL (70-110)
[2024-06-29 05:59] LABS: Glucose,Whole Blood 125 mg/dL (70-110)
--- NOTE | 2024-06-29 08:09 | P.PN ---
Subjective Progress Note Date: 06/29/24 This is an 78-year-old female who was admitted after missing 3 dialysis sessions due to a bedbug infestation in her house. Patient was unable to find transportation to dialysis due to the bedbugs in her home. Patient seen this morning sitting up in bed resting comfortably. She is tolerating diet. Vitals are stable. She did have paracentesis yesterday with 4.6 L of fluid removed. Case management is working on placement for patient. 06/24/2024 Patient seen and evaluated this morning sitting up in bed resting comfortably. She is scheduled to have dialysis today. Hemoglobin did drop on Friday and patient received another unit of packed red blood cells. She was started on Aranesp by nephrology. Patient states there are 2 quotes for her home to be fumigated for bedbugs and are awaiting a decision. Labs not back for today at time of dictation. Vitals are stable. Patient is tolerating diet. 06/28/2024 Patient seen and evaluated sitting up in bed resting comfortably this morning. Her vitals and lab work have been stable. Still awaiting her home to be fumigated for bedbugs. She is awaiting the company assisting her to pick which of the 2 quotes they would like. 06/29/2024 Patient seen and evaluated sitting up in bed eating breakfast this morning. She is scheduled for hemodialysis today. Still waiting for her home to be fumigated for bedbugs. Objective - Vital Signs Vital signs: Vital Signs Temp 98.5 F 06/29/24 07:11 Pulse 63 06/29/24 07:11 Resp 16 06/29/24 07:11 BP 123/70 06/29/24 07:11 Pulse Ox 96 06/29/24 07:11 FiO2 Intake & Output 06/28/24 06/29/24 06/29/24 18:59 06:59 18:59 Weight 112.5 kg Other: Voiding Method Incontinent Diaper # Voids 2 1 # Bowel Movements 2 1 - Constitutional General appearance: Present: cooperative, no acute distress - EENT Eyes: Present: PERRLA - Neck Neck: Present: normal ROM. Absent: lymphadenopathy, rigidity - Respiratory Respiratory: bilateral: diminished - Cardiovascular Heart sounds: normal: S1, S2 - Gastrointestinal General gastrointestinal: Present: soft. Absent: tenderness - Integumentary Integumentary: Present: normal, normal turgor - Musculoskeletal Musculoskeletal: Present: generalized weakness - Psychiatric Psychiatric: Present: A&O x's 3 - Labs CBC & Chem 7: 06/26/24 05:18 06/26/24 05:18 Labs: Abnormal Lab Results - Last 24 Hours (Table) 06/28/24 06/28/24 06/28/24 Range/Units 11:33 16:34 20:14 POC Glucose (mg/dL) 191 H 164 H 209 H (70-110) mg/dL 06/29/24 Range/Units 05:58 POC Glucose (mg/dL) 125 H (70-110) mg/dL Assessment and Plan (1) Infestation by bed bug Current Visit: Yes Status: Acute Code(s): B88.8 - OTHER SPECIFIED INFESTATIONS SNOMED Code(s): 72198777 (2) Missed dialysis Current Visit: Yes Status: Acute Code(s): DAD0240 - SNOMED Code(s): 1853 57058 (3) Ascites Current Visit: No Status: Acute Code(s): R18.8 - OTHER ASCITES SNOMED Code(s): 119384960 (4) Atrial fibrillation Current Visit: No Status: Acute Code(s): I48.91 - UNSPECIFIED ATRIAL FIBRILLATION SNOMED Code(s): 38777736 (5) CAD (coronary artery disease) Current Visit: No Status: Acute Code(s): I25.10 - ATHSCL HEART DISEASE OF [place] CORONARY ARTERY W/O ANG PCTRS SNOMED Code(s): 56892612 (6) Diabetes Current Visit: No Status: Acute Code(s): E11.9 - TYPE 2 DIABETES MELLITUS WITHOUT COMPLICATIONS SNOMED Code(s): 09535061 (7) CKD (chronic kidney disease) Current Visit: No Status: Acute Code(s): N18.9 - CHRONIC KIDNEY DISEASE, UNSPECIFIED SNOMED Code(s): 572586391 (8) Hyperlipidemia Current Visit: No Status: Acute Code(s): E78.5 - HYPERLIPIDEMIA, UNSPECIFIED SNOMED Code(s): 27587386 (9) Hypertension Current Visit: No Status: Acute Code(s): I10 - ESSENTIAL (PRIMARY) HYPERTENSION SNOMED Code(s): 89276220 Plan: Check CBC and CMP in the morning. Awaiting patient's home to be fumigated for bedbugs, once her home is clear and safe, she can be discharged. Patient seen and evaluated by nurse practitioner, physician in agreement with plan.
[2024-06-29 08:42] LABS: BUN/Creat Ratio 10.12 Ratio (12.00-20.00); Blood Urea Nitrogen 41.5 mg/dL (9.0-27.0); Carbon Dioxide 23.2 mmol/L (21.6-31.8); Chloride 96 mmol/L (96-109); Glucose 127 mg/dL (70-110); Potassium 4.7 mmol/L (3.5-5.5); Sodium 132 mmol/L (135-145)
[2024-06-29 08:43] LABS: ALT 19 U/L (8-44); AST 39 U/L (13-35); Albumin 2.5 g/dL (3.8-4.9); Albumin/Globulin Ratio 0.89 Ratio (1.60-3.17); Alkaline Phosphatase 94 U/L (41-126); Calcium 8.2 mg/dL (8.7-10.3); Globulin 2.8 g/dL (1.6-3.3); Total Bilirubin 0.3 mg/dL (0.3-1.2); Total Protein 5.3 g/dL (6.2-8.2)
[2024-06-29 08:44] LABS: HCT 25.4 % (37.2-46.3); HGB 7.9 g/dL (12.0-15.0); MCH 28.2 pg (27.0-32.0); MCHC 31.1 g/dL (32.0-37.0); MCV 90.7 FL (80.0-97.0); Mean Platelet Volume 10.8 FL (9.5-12.2); NRBC Per 100 WBC 0 X 10*3/uL (0.00-0.01); Platelet Count 192 X 10*3/uL (140-440); RDW 15.9 % (11.5-14.5); WBC 7.57 X 10*3/uL (4.50-10.00)
--- NOTE | 2024-06-29 10:07 | P.PN ---
Subjective Patient is seen in follow-up for end-stage renal disease. Resting in bed. Tolerating dialysis well. No active complaints. Vital signs are stable. General: No acute distress. HEENT: Head exam is unremarkable. LUNGS: No audible rhonchi or wheezes. HEART: Rate and Rhythm are regular. ABDOMEN: Nontender. EXTREMITITES: 1+ edema. Objective - Vital Signs Vital signs: Vital Signs Temp 98.5 F 06/29/24 07:11 Pulse 63 06/29/24 07:11 Resp 16 06/29/24 07:11 BP 123/70 06/29/24 07:11 Pulse Ox 96 06/29/24 07:11 FiO2 Intake & Output 06/28/24 06/29/24 06/29/24 18:59 06:59 18:59 Weight 112.5 kg Other: Voiding Method Incontinent Diaper Diaper # Voids 2 1 # Bowel Movements 2 1 - Labs CBC & Chem 7: 06/29/24 03:05 06/29/24 03:05 Labs: Abnormal Lab Results - Last 24 Hours (Table) 06/28/24 06/28/24 06/28/24 Range/Units 11:33 16:34 20:14 RBC (4.10-5.20) X 10*6/uL Hgb (12.0-15.0) g/dL Hct (37.2-46.3) % MCHC (32.0-37.0) g/dL RDW (11.5-14.5) % Sodium (135-145) mmol/L Anion Gap (4.00-12.00) mmol/L BUN (9.0-27.0) mg/dL Creatinine (0.6-1.5) mg/dL Est GFR (CKD-EPI) (>=60) BUN/Creatinine Ratio (12.00-20.00) Ratio Glucose (70-110) mg/dL POC Glucose (mg/dL) 191 H 164 H 209 H (70-110) mg/dL Calcium (8.7-10.3) mg/dL AST (13-35) U/L Total Protein (6.2-8.2) g/dL Albumin (3.8-4.9) g/dL Albumin/Globulin Ratio (1.60-3.17) Ratio 06/29/24 06/29/2425 Range/Units 03:05 03:05 05:58 RBC 2.80 L (4.10-5.20) X 10*6/uL Hgb 7.9 L (12.0-15.0) g/dL Hct 25.4 L (37.2-46.3) % MCHC 31.1 L (32.0-37.0) g/dL RDW 15.9 H (11.5-14.5) % Sodium 132 L (135-145) mmol/L Anion Gap 12.80 H (4.00-12.00) mmol/L BUN 41.5 H (9.0-27.0) mg/dL Creatinine 4.1 H (0.6-1.5) mg/dL Est GFR (CKD-EPI) 10 L (>=60) BUN/Creatinine Ratio 10.12 L (12.00-20.00) Ratio Glucose 127 H (70-110) mg/dL POC Glucose (mg/dL) 125 H (70-110) mg/dL Calcium 8.2 L (8.7-10.3) mg/dL AST 39 H (13-35) U/L Total Protein 5.3 L (6.2-8.2) g/dL Albumin 2.5 L (3.8-4.9) g/dL Albumin/Globulin Ratio 0.89 L (1.60-3.17) Ratio Assessment and Plan Plan: Assessment: 1. End-stage renal disease maintained on hemodialysis on Friday schedule. Started on hemodialysis in April 2024. Has permacath. 2. Hyperkalemia secondary to missed hemodialysis. Also on Entresto. Improved. 3. History of liver cirrhosis. Gets regular paracentesis in the next 1 scheduled for Friday. 4. Diabetes mellitus. 5. Anemia of chronic kidney disease. On Aranesp. 6. Hypervolemic hyponatremia. Improved. Plan: Currently seen while undergoing hemodialysis. Maintain low-salt diet and fluid restriction. Maintain Lasix. Maintain midodrine. Will give additional midodrine during dialysis if needed. Anticipate discharge soon.
[2024-06-29 11:35] LABS: Glucose,Whole Blood 196 mg/dL (70-110)
[2024-06-29 16:37] LABS: Glucose,Whole Blood 199 mg/dL (70-110)
[2024-06-29 20:36] LABS: Glucose,Whole Blood 185 mg/dL (70-110)
[2024-06-30 06:25] LABS: Glucose,Whole Blood 114 mg/dL (70-110)
[2024-06-30 08:16] LABS: HCT 23.9 % (37.2-46.3); HGB 7.5 g/dL (12.0-15.0); MCH 27.9 pg (27.0-32.0); MCHC 31.4 g/dL (32.0-37.0); MCV 88.8 FL (80.0-97.0); Mean Platelet Volume 11.2 FL (9.5-12.2); NRBC Per 100 WBC 0 X 10*3/uL (0.00-0.01); Platelet Count 138 X 10*3/uL (140-440); RBC 2.69 X 10*6/uL (4.10-5.20); RDW 15.9 % (11.5-14.5); WBC 5.43 X 10*3/uL (4.50-10.00)
--- NOTE | 2024-06-30 08:24 | P.PN ---
Subjective We are essentially waiting for her house to be fumigated properly for bedbug infestation. Once this is done we will discharge appropriately. Objective - Vital Signs Vital signs: Vital Signs Temp 98.7 F 06/30/24 06:58 Pulse 59 L 06/30/24 06:58 Resp 18 06/30/24 06:58 BP 120/68 06/30/24 06:58 Pulse Ox 98 06/30/24 06:58 FiO2 Intake & Output 06/29/24 06/30/24 06/30/24 18:59 06:59 18:59 Intake Total 500 540 Output Total 3500 Balance -3000 540 Weight 113 kg Intake: Oral 540 Hemodialysis 500 Output: Hemodialysis 2000 Hemodialysis Net Amount 1500 Other: Voiding Method Diaper Diaper # Voids 2 - Labs CBC & Chem 7: 06/30/24 02:39 06/29/24 03:05 Labs: Abnormal Lab Results - Last 24 Hours (Table) 06/29/24 06/29/24 06/29/24 Range/Units 03:05 03:05 11:33 RBC 2.80 L (4.10-5.20) X 10*6/uL Hgb 7.9 L (12.0-15.0) g/dL Hct 25.4 L (37.2-46.3) % MCHC 31.1 L (32.0-37.0) g/dL RDW 15.9 H (11.5-14.5) % Plt Count (140-440) X 10*3/uL Sodium 132 L (135-145) mmol/L Anion Gap 12.80 H (4.00-12.00) mmol/L BUN 41.5 H (9.0-27.0) mg/dL Creatinine 4.1 H (0.6-1.5) mg/dL Est GFR (CKD-EPI) 10 L (>=60) BUN/Creatinine Ratio 10.12 L (12.00-20.00) Ratio Glucose 127 H (70-110) mg/dL POC Glucose (mg/dL) 196 H (70-110) mg/dL Calcium 8.2 L (8.7-10.3) mg/dL AST 39 H (13-35) U/L Total Protein 5.3 L (6.2-8.2) g/dL Albumin 2.5 L (3.8-4.9) g/dL Albumin/Globulin Ratio 0.89 L (1.60-3.17) Ratio 06/29/24 06/29/24 06/30/24 Range/Units 16:35 20:35 02:39 RBC 2.69 L (4.10-5.20) X 10*6/uL Hgb 7.5 L (12.0-15.0) g/dL Hct 23.9 L (37.2-46.3) % MCHC 31.4 L (32.0-37.0) g/dL RDW 15.9 H (11.5-14.5) % Plt Count 138 L (140-440) X 10*3/uL Sodium (135-145) mmol/L Anion Gap (4.00-12.00) mmol/L BUN (9.0-27.0) mg/dL Creatinine (0.6-1.5) mg/dL Est GFR (CKD-EPI) (>=60) BUN/Creatinine Ratio (12.00-20.00) Ratio Glucose (70-110) mg/dL POC Glucose (mg/dL) 199 H 185 H (70-110) mg/dL Calcium (8.7-10.3) mg/dL AST (13-35) U/L Total Protein (6.2-8.2) g/dL Albumin (3.8-4.9) g/dL Albumin/Globulin Ratio (1.60-3.17) Ratio 06/30/24 Range/Units 06:23 RBC (4.10-5.20) X 10*6/uL Hgb (12.0-15.0) g/dL Hct (37.2-46.3) % MCHC (32.0-37.0) g/dL RDW (11.5-14.5) % Plt Count (140-440) X 10*3/uL Sodium (135-145) mmol/L Anion Gap (4.00-12.00) mmol/L BUN (9.0-27.0) mg/dL Creatinine (0.6-1.5) mg/dL Est GFR (CKD-EPI) (>=60) BUN/Creatinine Ratio (12.00-20.00) Ratio Glucose (70-110) mg/dL POC Glucose (mg/dL) 114 H (70-110) mg/dL Calcium (8.7-10.3) mg/dL AST (13-35) U/L Total Protein (6.2-8.2) g/dL Albumin (3.8-4.9) g/dL Albumin/Globulin Ratio (1.60-3.17) Ratio Assessment and Plan (1) Missed dialysis Current Visit: Yes Status: Acute Code(s): ADL8907 - SNOMED Code(s): 406864218 (2) Atrial fibrillation Current Visit: No Status: Acute Code(s): I48.91 - UNSPECIFIED ATRIAL FIBRILLATION SNOMED Code(s): 10002602 (3) Cirrhosis of liver with ascites Current Visit: No Status: Acute Code(s): K74.60 - UNSPECIFIED CIRRHOSIS OF LIVER; R18.8 - OTHER ASCITES SNOMED Code(s): 29689677 (4) Diabetes Current Visit: No Status: Acute Code(s): E11.9 - TYPE 2 DIABETES MELLITUS WITHOUT COMPLICATIONS SNOMED Code(s): 52535799 (5) Hyperlipidemia Current Visit: No Status: Acute Code(s): E78.5 - HYPERLIPIDEMIA, UNSPECIFIED SNOMED Code(s): 78170813
[2024-06-30 08:25] LABS: ALT 19 U/L (8-44); AST 36 U/L (13-35); Albumin 2.4 g/dL (3.8-4.9); Albumin/Globulin Ratio 0.92 Ratio (1.60-3.17); Alkaline Phosphatase 86 U/L (41-126); BUN/Creat Ratio 10.48 Ratio (12.00-20.00); Blood Urea Nitrogen 34.6 mg/dL (9.0-27.0); Carbon Dioxide 25.4 mmol/L (21.6-31.8); Chloride 95 mmol/L (96-109); Globulin 2.6 g/dL (1.6-3.3); Glucose 126 mg/dL (70-110); Potassium 3.9 mmol/L (3.5-5.5); Sodium 131 mmol/L (135-145); Total Bilirubin 0.3 mg/dL (0.3-1.2)
[2024-06-30 10:50] LABS: Glucose,Whole Blood 151 mg/dL (70-110)
--- NOTE | 2024-06-30 11:27 | P.PN ---
Subjective Patient is seen in follow-up for end-stage renal disease. Resting in bed. No active complaints. Tolerated 1.5 L ultrafiltration yesterday. Vital signs are stable. General: No acute distress. HEENT: Head exam is unremarkable. LUNGS: No audible rhonchi or wheezes. HEART: Rate and Rhythm are regular. ABDOMEN: Nontender. EXTREMITITES: 1+ edema. Objective - Vital Signs Vital signs: Vital Signs Temp 98.7 F 06/30/24 06:58 Pulse 59 L 06/30/24 06:58 Resp 18 06/30/24 06:58 BP 120/68 06/30/24 06:58 Pulse Ox 98 06/30/24 06:58 FiO2 Intake & Output 06/29/24 06/30/24 06/30/24 18:59 06:59 18:59 Intake Total 500 540 Output Total 3500 Balance -3000 540 Weight 113 kg Intake: Oral 540 Hemodialysis 500 Output: Hemodialysis 2000 Hemodialysis Net Amount 1500 Other: Voiding Method Diaper Diaper Diaper # Voids 2 - Labs CBC & Chem 7: 06/30/24 02:39 06/30/24 02:39 Labs: Abnormal Lab Results - Last 24 Hours (Table) 06/29/24 06/29/24 06/29/24 Range/Units 11:33 16:35 20:35 RBC (4.10-5.20) X 10*6/uL Hgb (12.0-15.0) g/dL Hct (37.2-46.3) % MCHC (32.0-37.0) g/dL RDW (11.5-14.5) % Plt Count (140-440) X 10*3/uL Sodium (135-145) mmol/L Chloride (96-109) mmol/L BUN (9.0-27.0) mg/dL Creatinine (0.6-1.5) mg/dL Est GFR (CKD-EPI) (>=60) BUN/Creatinine Ratio (12.00-20.00) Ratio Glucose (70-110) mg/dL POC Glucose (mg/dL) 196 H 199 H 185 H (70-110) mg/dL Calcium (8.7-10.3) mg/dL AST (13-35) U/L Total Protein (6.2-8.2) g/dL Albumin (3.8-4.9) g/dL Albumin/Globulin Ratio (1.60-3.17) Ratio 06/30/24 06/30/24 06/30/24 Range/Units 02:39 02:39 06:23 RBC 2.69 L (4.10-5.20) X 10*6/uL Hgb 7.5 L (12.0-15.0) g/dL Hct 23.9 L (37.2-46.3) % MCHC 31.4 L (32.0-37.0) g/dL RDW 15.9 H (11.5-14.5) % Plt Count 138 L (140-440) X 10*3/uL Sodium 131 L (135-145) mmol/L Chloride 95 L (96-109) mmol/L BUN 34.6 H (9.0-27.0) mg/dL Creatinine 3.3 H (0.6-1.5) mg/dL Est GFR (CKD-EPI) 14 L (>=60) BUN/Creatinine Ratio 10.48 L (12.00-20.00) Ratio Glucose 126 H (70-110) mg/dL POC Glucose (mg/dL) 114 H (70-110) mg/dL Calcium 8.0 L (8.7-10.3) mg/dL AST 36 H (13-35) U/L Total Protein 5.0 L (6.2-8.2) g/dL Albumin 2.4 L (3.8-4.9) g/dL Albumin/Globulin Ratio 0.92 L (1.60-3.17) Ratio 06/30/24 Range/Units 10:43 RBC (4.10-5.20) X 10*6/uL Hgb (12.0-15.0) g/dL Hct (37.2-46.3) % MCHC (32.0-37.0) g/dL RDW (11.5-14.5) % Plt Count (140-440) X 10*3/uL Sodium (135-145) mmol/L Chloride (96-109) mmol/L BUN (9.0-27.0) mg/dL Creatinine (0.6-1.5) mg/dL Est GFR (CKD-EPI) (>=60) BUN/Creatinine Ratio (12.00-20.00) Ratio Glucose (70-110) mg/dL POC Glucose (mg/dL) 151 H (70-110) mg/dL Calcium (8.7-10.3) mg/dL AST (13-35) U/L Total Protein (6.2-8.2) g/dL Albumin (3.8-4.9) g/dL Albumin/Globulin Ratio (1.60-3.17) Ratio Assessment and Plan Plan: Assessment: 1. End-stage renal disease maintained on hemodialysis on Friday schedule. Started on hemodialysis in April 2024. Has permacath. 2. Hyperkalemia secondary to missed hemodialysis. Also on Entresto. Improved. 3. History of liver cirrhosis. Gets regular paracentesis in the next 1 scheduled for Friday. 4. Diabetes mellitus. 5. Anemia of chronic kidney disease. On Aranesp. 6. Hypervolemic hyponatremia. Improved. Plan: Hemodialysis tomorrow. Maintain low-salt diet and fluid restriction. Maintain Lasix. Maintain midodrine. Will give additional midodrine during dialysis if needed. Anticipate discharge soon.
[2024-06-30 16:51] LABS: Glucose,Whole Blood 181 mg/dL (70-110)
[2024-06-30 20:22] LABS: Glucose,Whole Blood 205 mg/dL (70-110)
[2024-06-30] MEDS: MAGNESIUM HYDROXIDE 2,400 MG/30 ML CUP PO PRN (22:57)
[2024-07-01 01:51] LABS: Glucose,Whole Blood 176 mg/dL (70-110)
[2024-07-01 06:21] LABS: Glucose,Whole Blood 139 mg/dL (70-110)
--- NOTE | 2024-07-01 08:28 | P.PN ---
Subjective Progress Note Date: 07/01/24 This is an 78-year-old female who was admitted after missing 3 dialysis sessions due to a bedbug infestation in her house. Patient was unable to find transportation to dialysis due to the bedbugs in her home. Patient seen this morning sitting up in bed resting comfortably. She is tolerating diet. Vitals are stable. She did have paracentesis yesterday with 4.6 L of fluid removed. Case management is working on placement for patient. 06/24/2024 Patient seen and evaluated this morning sitting up in bed resting comfortably. She is scheduled to have dialysis today. Hemoglobin did drop on Friday and patient received another unit of packed red blood cells. She was started on Aranesp by nephrology. Patient states there are 2 quotes for her home to be fumigated for bedbugs and are awaiting a decision. Labs not back for today at time of dictation. Vitals are stable. Patient is tolerating diet. 06/28/2024 Patient seen and evaluated sitting up in bed resting comfortably this morning. Her vitals and lab work have been stable. Still awaiting her home to be fumigated for bedbugs. She is awaiting the company assisting her to pick which of the 2 quotes they would like. 06/29/2024 Patient seen and evaluated sitting up in bed eating breakfast this morning. She is scheduled for hemodialysis today. Still waiting for her home to be fumigated for bedbugs. 07/01/2024 Patient seen and evaluated sitting up in bed this morning resting comfortably. We are still waiting for home to be fumigated for bedbugs. Reportedly the quote is being decided on. Objective - Vital Signs Vital signs: Vital Signs Temp 98.3 F 07/01/24 06:53 Pulse 62 07/01/24 06:53 Resp 17 07/01/24 06:53 BP 112/75 07/01/24 06:53 Pulse Ox 99 07/01/24 06:53 FiO2 Intake & Output 06/30/24 07/01/24 07/01/24 18:59 06:59 18:59 Intake Total 240 Balance 240 Weight 114 kg Intake: Oral 240 Other: Voiding Method Diaper Diaper # Voids 2 1 # Bowel Movements 1 1 - Constitutional General appearance: Present: cooperative, no acute distress - EENT Eyes: Present: PERRLA - Neck Neck: Present: normal ROM. Absent: lymphadenopathy, rigidity - Respiratory Respiratory: bilateral: diminished - Cardiovascular Heart sounds: normal: S1, S2 - Gastrointestinal General gastrointestinal: Present: soft. Absent: tenderness - Integumentary Integumentary: Present: normal, normal turgor - Musculoskeletal Musculoskeletal: Present: generalized weakness - Psychiatric Psychiatric: Present: A&O x's 3 - Labs CBC & Chem 7: 06/30/24 02:39 06/30/24 02:39 Labs: Abnormal Lab Results - Last 24 Hours (Table) 06/30/24 06/30/24 06/30/24 Range/Units 10:43 16:49 20:21 POC Glucose (mg/dL) 151 H 181 H 205 H (70-110) mg/dL 07/01/24 07/01/24 Range/Units 01:50 06:19 POC Glucose (mg/dL) 176 H 139 H (70-110) mg/dL Assessment and Plan (1) Infestation by bed bug Current Visit: Yes Status: Acute Code(s): B88.8 - OTHER SPECIFIED INFESTAT IONS SNOMED Code(s): 39207013 (2) Missed dialysis Current Visit: Yes Status: Acute Code(s): GCD2188 - SNOMED Code(s): 254582283 (3) Ascites Current Visit: No Status: Acute Code(s): R18.8 - OTHER ASCITES SNOMED Code(s): 476857701 (4) Atrial fibrillation Current Visit: No Status: Acute Code(s): I48.91 - UNSPECIFIED ATRIAL FIBRI LLATION SNOMED Code(s): 06563472 (5) CAD (coronary artery disease) Current Visit: No Status: Acute Code(s): I25.10 - ATHSCL HEART DISEASE OF [place] CORONARY ARTERY W/O ANG PCTRS SNOMED Code(s): 29181457 (6) Diabetes Current Visit: No Status: Acute Code(s): E11.9 - TYPE 2 DIABETES MELLITUS WITHOUT COMPLICATIONS SNOMED Code(s): 63124129 (7) CKD (chronic kidney disease) Current Visit: No Status: Acute Code(s): N18.9 - CHRONIC KIDNEY DISEASE, UNSPECIFIED SNOMED Code(s): 974583114 (8) Hyperlipidemia Current Visit: No Status: Acute Code(s): E78.5 - HYPERLIPIDEMIA, UNSPECIFIED SNOMED Code(s): 51640332 (9) Hypertension Current Visit: No Status: Acute Code(s): I10 - ESSENTIAL (PRIMARY) HYPERTENSION SNOMED Code(s): 93157469 Plan: Check CBC and CMP in the morning. Awaiting patient's home to be fumigated for bedbugs, once her home is clear and safe, she can be discharged. Patient seen and evaluated by nurse practitioner, physician in agreement with plan.
--- NOTE | 2024-07-01 11:13 | P.PN ---
Subjective Patient is seen in follow-up for end-stage renal disease. Resting in bed. No active complaints. Only received a short hemodialysis treatment this morning due to hypotension. Vital signs are stable. General: No acute distress. HEENT: Head exam is unremarkable. LUNGS: No audible rhonchi or wheezes. HEART: Rate and Rhythm are regular. ABDOMEN: Nontender. EXTREMITITES: 1+ edema. Objective - Vital Signs Vital signs: Vital Signs Temp 98.3 F 07/01/24 06:53 Pulse 62 07/01/24 06:53 Resp 17 07/01/24 06:53 BP 112/75 07/01/24 06:53 Pulse Ox 99 07/01/24 06:53 FiO2 Intake & Output 06/30/24 07/01/24 07/01/24 18:59 06:59 18:59 Intake Total 240 Balance 240 Weight 114 kg Intake: Oral 240 Other: Voiding Method Diaper Diaper Diaper # Voids 2 1 # Bowel Movements 1 1 - Labs CBC & Chem 7: 06/30/24 02:39 06/30/24 02:39 Labs: Abnormal Lab Results - Last 24 Hours (Table) 06/30/24 06/30/24 07/01/24 Range/Units 16:49 20:21 01:50 POC Glucose (mg/dL) 181 H 205 H 176 H (70-110) mg/dL 07/01/24 Range/Units 06:19 POC Glucose (mg/dL) 139 H (70-110) mg/dL Assessment and Plan Plan: Assessment: 1. End-stage renal disease maintained on hemodialysis on Friday schedule. Started on hemodialysis in April 2024. Has permacath. 2. Hyperkalemia secondary to missed hemodialysis. Also on Entresto. Improved. 3. History of liver cirrhosis. Gets regular paracentesis in the next 1 scheduled for Friday. 4. Diabetes mellitus. 5. Anemia of chronic kidney disease. On Aranesp. 6. Hypervolemic hyponatremia. Improved. Plan: Currently seen while undergoing hemodialysis. Maintain low-salt diet and fluid restriction. Maintain Lasix. Maintain midodrine. Will give additional midodrine during dialysis if needed. Anticipate discharge soon.
[2024-07-01 11:52] LABS: Glucose,Whole Blood 173 mg/dL (70-110)
[2024-07-01 16:35] LABS: Glucose,Whole Blood 191 mg/dL (70-110)
[2024-07-01 20:25] LABS: Glucose,Whole Blood 170 mg/dL (70-110)
[2024-07-02 06:11] LABS: Glucose,Whole Blood 132 mg/dL (70-110)
--- NOTE | 2024-07-02 08:44 | P.PN ---
Subjective Principal diagnosis: This continue rest 78-year-old white female essentially admitted due to the fact that there is bedbug infestation in her house and she is unable to stay there in good health has an underlying history of end-stage renal disease and is bedbound. We are essentially waiting for her house to be fumigated properly for bedbug infestation. Once this is done we will discharge appropriately. Objective - Vital Signs Vital signs: Vital Signs Temp 98.2 F 07/02/24 06:49 Pulse 64 07/02/24 07:00 Resp 16 07/02/24 06:49 BP 113/61 07/02/24 07:00 Pulse Ox 98 07/02/24 06:49 FiO2 Intake & Output 07/01/24 07/02/24 07/02/24 18:59 06:59 18:59 Intake Total 240 Balance 240 Weight 113.5 kg Intake: Oral 240 Other: Voiding Method Diaper Diaper # Voids 3 # Bowel Movements 1 - Labs CBC & Chem 7: 06/30/24 02:39 06/30/24 02:39 Labs: Abnormal Lab Results - Last 24 Hours (Table) 07/01/24 07/01/24 07/01/24 Range/Units 11:50 16:34 20:23 POC Glucose (mg/dL) 173 H 191 H 170 H (70-110) mg/dL 07/02/24 Range/Units 06:09 POC Glucose (mg/dL) 132 H (70-110) mg/dL Assessment and Plan (1) Missed dialysis Current Visit: Yes Status: Acute Code(s): QKQ4827 - SNOMED Code(s): 998087457 (2) Atrial fibrillation Current Visit: No Status: Acute Code(s): I48.91 - UNSPECIFIED ATRIAL FIBRILLATION SNOMED Code(s): 03448980 (3) Cirrhosis of liver with ascites Current Visit: No Status: Acute Code(s): K74.60 - UNSPECIFIED CIRRHOSIS OF LIVER; R18.8 - OTHER ASCITES SNOMED Code(s): 24883927 (4) Diabetes Current Visit: No Status: Acute Code(s): E11.9 - TYPE 2 DIABETES MELLITUS WITHOUT COMPLICATIONS SNOMED Code(s): 24889474 (5) Hyperlipidemia Current Visit: No Status: Acute Code(s): E78.5 - HYPERLIPIDEMIA, UNSPECIFIED SNOMED Code(s): 14291145
--- NOTE | 2024-07-02 10:17 | P.PN ---
Subjective Patient is seen in follow-up for end-stage renal disease. Resting in bed. No active complaints. Blood pressure drops during dialysis. Only had a short treatment yesterday. Will reattempt today. Vital signs are stable. General: No acute distress. HEENT: Head exam is unremarkable. LUNGS: No audible rhonchi or wheezes. HEART: Rate and Rhythm are regular. ABDOMEN: Nontender. EXTREMITITES: 1+ edema. Objective - Vital Signs Vital signs: Vital Signs Temp 98.2 F 07/02/24 06:49 Pulse 64 07/02/24 07:00 Resp 16 07/02/24 06:49 BP 113/61 07/02/24 07:00 Pulse Ox 98 07/02/24 06:49 FiO2 Intake & Output 07/01/24 07/02/24 07/02/24 18:59 06:59 18:59 Intake Total 240 Balance 240 Weight 113.5 kg Intake: Oral 240 Other: Voiding Method Diaper Diaper # Voids 3 # Bowel Movements 1 - Labs CBC & Chem 7: 06/30/24 02:39 06/30/24 02:39 Labs: Abnormal Lab Results - Last 24 Hours (Table) 07/01/24 07/01/24 07/01/24 Range/Units 11:50 16:34 20:23 POC Glucose (mg/dL) 173 H 191 H 170 H (70-110) mg/dL 07/02/24 Range/Units 06:09 POC Glucose (mg/dL) 132 H (70-110) mg/dL Assessment and Plan Plan: Assessment: 1. End-stage renal disease maintained on hemodialysis on Friday schedule. Started on hemodialysis in April 2024. Has permacath. 2. Hyperkalemia secondary to missed hemodialysis. Also on Entresto. Improved. 3. History of liver cirrhosis. Gets regular paracentesis in the next 1 scheduled for Friday. 4. Diabetes mellitus. 5. Anemia of chronic kidney disease. On Ara. 6. Hypervolemic hyponatremia. Improved. Plan: Attempt hemodialysis again today with lower blood flows. Will give midodrine pre and mid treatment. Maintain low-salt diet and fluid restriction. Maintain Lasix. Anticipate discharge soon.
[2024-07-02 10:26] LABS: HCT 24.4 % (37.2-46.3); HGB 7.5 g/dL (12.0-15.0); MCH 27.3 pg (27.0-32.0); MCHC 30.7 g/dL (32.0-37.0); MCV 88.7 FL (80.0-97.0); Mean Platelet Volume 10.8 FL (9.5-12.2); NRBC Per 100 WBC 0 X 10*3/uL (0.00-0.01); Platelet Count 180 X 10*3/uL (140-440); RBC 2.75 X 10*6/uL (4.10-5.20); RDW 15.9 % (11.5-14.5); WBC 7.36 X 10*3/uL (4.50-10.00)
[2024-07-02 11:02] LABS: ALT 22 U/L (8-44); AST 45 U/L (13-35); Albumin 2.4 g/dL (3.8-4.9); Albumin/Globulin Ratio 0.86 Ratio (1.60-3.17); Alkaline Phosphatase 88 U/L (41-126); BUN/Creat Ratio 13.37 Ratio (12.00-20.00); Blood Urea Nitrogen 57.5 mg/dL (9.0-27.0); Calcium 8.1 mg/dL (8.7-10.3); Carbon Dioxide 24.8 mmol/L (21.6-31.8); Chloride 95 mmol/L (96-109); Globulin 2.8 g/dL (1.6-3.3); Glucose 101 mg/dL (70-110); Potassium 4.8 mmol/L (3.5-5.5); Sodium 131 mmol/L (135-145); Total Bilirubin 0.2 mg/dL (0.3-1.2); Total Protein 5.2 g/dL (6.2-8.2)
[2024-07-02 11:40] LABS: Glucose,Whole Blood 205 mg/dL (70-110)
[2024-07-02 16:27] LABS: Glucose,Whole Blood 185 mg/dL (70-110)
[2024-07-02 20:53] LABS: Glucose,Whole Blood 198 mg/dL (70-110)
[2024-07-03] MEDS: ONDANSETRON 4 MG/2 ML VIAL IVP PRN (01:17)
[2024-07-03 06:37] LABS: Glucose,Whole Blood 168 mg/dL (70-110)
[2024-07-03 11:33] LABS: Glucose,Whole Blood 144 mg/dL (70-110)
--- NOTE | 2024-07-03 12:13 | P.PN ---
Subjective Patient is seen for follow-up for end-stage renal disease. Patient is seen on hemodialysis. Tolerating treatment fairly well today No significant complaints. Blood pressure is not low. Increase UF to about 1.5 L as tolerated. Objective - Vital Signs Vital signs: Vital Signs Temp 99.1 F 07/03/24 07:21 Pulse 82 07/03/24 07:21 Resp 17 07/03/24 07:21 BP 139/73 07/03/24 07:21 Pulse Ox 98 07/03/24 07:21 FiO2 Intake & Output 07/02/24 07/03/24 07/03/24 18:59 06:59 18:59 Intake Total 400 Output Total 2600 Balance -2200 Weight 114 kg Intake: Hemodialysis 400 Output: Hemodialysis 1500 Hemodialysis Net Amount 1100 Other: Voiding Method Diaper Diaper # Voids 3 # Bowel Movements 2 3 - Exam Patient is awake, comfortable, no acute distress Examination of the heart S1 and S2 Examination of the lungs bilateral breath sounds are heard Abdomen soft distended nontender Examination of lower extremities shows 2+ edema, chronic skin changes noted. - Labs CBC & Chem 7: 07/02/24 06:28 07/02/24 06:28 Labs: Abnormal Lab Results - Last 24 Hours (Table) 07/02/24 07/02/24 07/03/24 Range/Units 16:26 20:51 06:35 POC Glucose (mg/dL) 185 H 198 H 168 H (70-110) mg/dL 07/03/24 Range/Units 11:31 POC Glucose (mg/dL) 144 H (70-110) mg/dL Assessment and Plan Assessment: 1. End-stage renal disease maintained on hemodialysis on Friday schedule. Started on hemodialysis in April 2024. Has permacath. 2. Hyperkalemia secondary to missed hemodialysis. Also on Entresto. 3. History of liver cirrhosis. Gets regular paracentesis 4. Diabetes mellitus. 5. Anemia of chronic kidney disease. ferritin 106, iron sat 9.1% 6. Hypervolemic hyponatremia, improved with dialysis 7. Anemia with no active bleeding noted status post packed RBCs transfusion. Started on aranesp Plan: Increase UF with hemodialysis today. Continue Aranesp
--- NOTE | 2024-07-03 14:49 | P.CRDCN ---
History of Present Illness Consult date: 07/03/24 Requesting physician: Luis Shirley Reason for Consult (text): decreased blood pressure Chief complaint: Missed dialysis History of present illness: This is a pleasant 78-year-old female patient of Dr. Guillen with past medical history of atrial fibrillation, tachycardia induced cardiomyopathy, no rmalization of the LV systolic function and sinus mechanism, hypertension, hyperlipidemia, chronic kidney disease recently started on hemodialysis and diabetes mellitus type 2. Was last seen in our office in October 2022. Presented to the hospital with complaints of missing dialysis due to some transportation issues as well as bedbug infestation at her home. She has been requiring paracentesis as well which has been postponed therefore she is feeling some tightness in her abdomen and chest. We were asked see the patient in consultation for low blood pressure. She is on midodrine. She continues to undergo hemodialysis.. Diagnostics -EKG: Sinus rhythm -Chest x-ray: Cardiomegaly without overt fluid overload -Ultrasound-guided paracentesis with 4.6 L of straw-colored fluid removed on 05/24 -Laboratory studies: Hemoglobin 7.5, stable, sodium 131, potassium 4.8, BUN 57.5, creatinine 4.3 -Home cardiac medications: Eliquis 5 mg p.o. twice daily, Lipitor 20 mg p.o. daily, carvedilol 3.125 mg p.o. twice daily, Lasix 80 mg p.o. daily, Entresto 24-26 mg p.o. twice daily -Prior stress test: 2012 showing fixed anterior wall defect -Echocardiogram: September 2022 normal EF moderate LVH and mild MR -Cardiac catheterization: April 2019 showing normal coronaries Review Of Systems: At the time of my exam: CONSTITUTIONAL: Denies fever or chills. HEENT: Denies blurred vision, vision changes. CARDIOVASCULAR: Denies chest pain. Denies orthopnea. Denies PND. Denies palpitations, dizziness, or syncope. RESPIRATORY: Denies shortness of breath, wheezing, or cough. Denies hemoptysis. GASTROINTESTINAL: Denies abdominal pain. Denies nausea or vomiting. Denies bleeding. Complains of distention HEMATOLOGIC: Denies bleeding disorders. GENITOURINARY: Denies hematuria. SKIN: Denies puritis. Denies rash. PHYSICAL EXAMINATION: This is a 78-year-old female in no apparent distress at the time of my examination. VITAL SIGNS: Reviewed. HEENT: Head is atraumatic, normocephalic. Pupils are equal, round. Sclerae anicteric. Conjunctivae are clear. Mucous membranes of the mouth are moist. Neck is supple. There is no elevated jugular venous pressure. No carotid bruit is heard. CHEST EXAMINATION: Diminished air entry bilaterally. No wheezes rales or rhonchi. Respirations even and nonlabored. HEART EXAMINATION: Heart regular, positive S1 and S2. No S3. No S4. No clicks, rubs or murmurs. ABDOMEN: Soft, nontender. Bowel sounds are heard. No organomegaly noted. EXTREMITIES: 2+ peripheral pulses with evidence of peripheral edema and no calf tenderness noted. NEUROLOGIC EXAMINATION: Patient is awake, alert and oriented x3. Assessment: 1. Nonischemic cardiomyopathy 2. Persistent atrial fibrillation, currently maintaining sinus mechanism 3. Hypotension 4. End-stage renal failure on hemodialysis Plan: From cardiology's perspective we will obtain a 2D echo with Doppler study to assess cardiac structure and function. We will switch from carvedilol to metoprolol succinate. If blood pressure remains low may consider discontinuing Entresto. Thank you kindly for this consultation. Nurse practitioner note has been reviewed, I agree with documented findings and plan of care. Patient was seen and examined. Past Medical History Past Medical History: Atrial Fibrillation, Coronary Artery Disease (CAD), CVA/TIA, Diabetes Mellitus, Deep Vein Thrombosis (DVT), Hypertension, Myocardial Infarction (SD), Osteoarthritis (OA) Additional Past Medical History / Comment(s): hx tia, hx stroke behind left eye., lt eye macular , states hospitalized with Covid April 2019 with life support and stage 3 kidney failure., hx of fall with hip fx and surgery 01/13/22 went to [facility] for Rehab. DVT during ., varicose veins, states painful sore left heel., hx of t.b. as a child with scarring on lungs. Last Myocardial Infarction Date:: unknown date History of Any Multi-Drug Resistant Organisms: MRSA, VRE Date of last positivie culture/infection: 09/09/22 MRSA & VRE ([facility]-Scanned) MDRO Source:: Blood Culture Past Surgical History: Adenoidectomy, Hysterectomy, Orthopedic Surgery, Tonsillectomy, Tubal Ligation Additional Past Surgical History / Comment(s): pilonidal cyst twice as child, rt knee arthroscopy, krystyna cataracts, krystyna great toe sx, ORIF Left hip (01/13/22) Past Anesthesia/Blood Transfusion Reactions: Previous Problems w/ Anesthesia, Postoperative Nausea & Vomiting (PONV) Additional Past Anesthesia/Blood Transfusion Reaction / Comment(s): difficulty waking up after sx. clausterphobia. 1961 blood transfusion(during child ) pt stated had palpitations after 2nd unit given Past Psychological History: Anxiety Smoking Status: Never smoker Past Alcohol Use History: None Reported Past Drug Use History: None Reported - Past Family History Mother Family Medical History: Cancer Additional Family Medical History / Comment(s): lung cancer Father Family Medical History: Coronary Artery Disease (CAD) Additional Family Medical History / Comment(s): heart disease, kidney disese Medications and Allergies Home Medications Medication Instructions Recorded Confirmed Type Apixaban [Eliquis] 5 mg PO BID 08/13/20 06/17/24 History Sacubitril/Valsartan [Entresto 24 1 tab PO BID 01/12/22 06/17/24 History mg-26 mg Tablet] Omeprazole [PriLOSEC] 20 mg PO DAILY 03/05/22 06/17/24 History Ipratropium [place] [Atrovent Hfa] 2 puff INHALATION RT-QID 09/09/22 06/17/24 History ALPRAZolam [Xanax] 0.25 mg PO TID PRN 05/30/23 06/17/24 History Ammonium Lactate Lotion 1 applic TOPICAL BID PRN 05/30/23 06/17/24 History [Lac-Hydrin 12% Lotion] Aspirin 81 mg PO DAILY 05/30/23 06/17/24 History Atorvastatin [Lipitor] 20 mg PO DAILY 05/30/23 06/17/24 History Cholecalciferol [Vitamin D3 (25 25 mcg PO DAILY 05/30/23 06/17/24 History Mcg = 1000 Iu)] Escitalopram [Lexapro] 10 mg PO DAILY 05/30/23 06/17/24 History Furosemide [Lasix] 80 mg PO DAILY 05/30/23 06/17/24 History Insulin Glargine,Hum.rec.anlog 16 - 18 units SQ HS PRN 05/30/23 06/17/24 History [Tourachelo Max Solostar] Insulin Glargine,Hum.rec.anlog 24 units SQ DAILY 05/30/23 06/17/24 History [Toujeo Max Solostar] Multivit-Min/FA/Lycopen/Lutein 1 tab PO DAILY 05/30/23 06/17/24 History [Centrum Silver Tablet] Potassium Chloride ER [K-Dur 20] 20 meq PO DAILY 05/30/23 06/17/24 History Albuterol Inhaler [Ventolin Hfa 2 puff INHALATION RT-QID PRN 01/09/24 06/17/24 History Inhaler] Ascorbic Acid [Vitamin C] 1,000 mg PO DAILY 01/09/24 06/17/24 History Vit C/E/Zn/Coppr/Lutein/Zeaxan 1 cap PO BID 01/09/24 06/17/24 History [Preservision Areds 2 Softgel] carvediloL [Coreg] 3.125 mg PO BID 01/09/24 06/17/24 History Magnesium Oxide [Mag-Ox] 400 mg PO DAILY #30 tab 01/16/24 06/17/24 Rx Nystatin 100,000Unit/gm Cream 1 applic TOPICAL BID #60 g 01/16/24 06/17/24 Rx [Mycostatin Cream] Sodium Bicarbonate Tab 650 mg PO BID #60 tab 01/16/24 06/17/24 Rx Torsemide [Demadex] 40 mg PO DAILY #30 tab 01/16/24 06/17/24 Rx Metoprolol Tartrate [Lopressor] 12.5 mg PO BID 01/30/24 06/17/24 History Menthol-Zinc Oxide Oint 1 applic TOPICAL DIRECTED 03/03/24 06/17/24 History [Calmoseptine Ointment] Periguard Ointment 1 applic TOPICAL DIRECTED 03/03/24 06/17/24 History Vits A and D/White Pet/Lanolin [A 1 applic TOPICAL DAILY PRN 03/03/24 06/17/24 History and D Ointment] traMADol HCL 50 mg PO TID PRN 05/20/24 06/17/24 History Darbepoetin Fernando [Aranesp] 40 mcg SQ DIRECTED 06/17/24 06/17/24 History Midodrine [ProAmatine] 10 mg PO AC-TID PRN 06/17/24 06/17/24 History Allergies Allergy/AdvReac Type Severity Reaction Status Date / Time shellfish derived [Shellfish] Allergy Severe vomiting Verified 06/17/24 13:33 -very ill adhesive Allergy skin red Verified 06/17/24 13:33 and murguia, tears skin aluminum Allergy skin turns Verified 06/17/24 13:33 black, passes out Antihistamines - Allergy heart Verified 06/17/24 13:33 Ethylenediamine palpitations codeine Allergy migraines Verified 06/17/24 13:33 epinephrine Allergy heart Verified 06/17/24 13:33 palpitations fluticasone [From Flonase] Allergy Unknown Verified 06/17/24 13:33 hydrogen peroxide Allergy murguia and Verified 06/17/24 13:33 causes infection latex Allergy passes out Verified 06/17/24 13:33 nickel Allergy turns skin Verified 06/17/24 13:33 black and passes out procaine HCl [From Novocain] Allergy passed Verified 06/17/24 13:33 out- due to epinephrine in it. thiopental sodium Allergy needed cpr Verified 06/17/24 13:33 [From Pentothal] resusitation insulin glargine AdvReac Intermediate Diarrhea, Verified 06/20/24 05:38 [From Lantus U-100 Insulin] Vomiting, upset stomach iron AdvReac Nausea Verified 06/17/24 13:33 methocarbamol [From Robaxin] AdvReac Hallucinati Verified 06/17/24 13:33 ons zinc oxide AdvReac Rash/Hives Verified 06/17/24 13:33 surgical felicita Allergy Severe had to be Uncoded 06/17/24 13:33 removed 2 days post-op petroleum products AdvReac passes out Uncoded 06/17/24 13:33 or does not feel well. (diesel, oils) Physical Exam Vitals: Vital Signs Temp Pulse Pulse Pulse Resp BP BP 07/03/24 12:21 71 95/56 07/03/24 07:21 99.1 F 82 17 139/73 07/03/24 06:40 72 109/66 07/03/24 01:15 98 F 72 17 137/64 07/02/24 20:26 98.3 F 72 16 112/56 07/02/24 18:51 98.1 F 87 16 112/65 07/02/24 17:29 73 114/52 07/02/24 16:33 99.6 F 62 16 108/56 07/02/24 16:09 98.1 F 67 18 121/62 Pulse Ox 07/03/24 12:21 07/03/24 07:21 98 07/03/24 06:40 07/03/24 01:15 96 07/02/24 20:26 07/02/24 18:51 95 07/02/24 17:29 07/02/24 16:33 07/02/24 16:09 Intake and Output 07/02/24 07/03/24 07/03/24 22:59 06:59 14:59 Intake Total 400 Output Total 2600 Balance -2200 Intake: Hemodialysis 400 Output: Hemodialysis 1500 Hemodialysis Net Amount 1100 Other: Voiding Method Diaper # Voids 3 # Bowel Movements 2 3 Weight 114 kg Results 07/02/24 06:28 07/02/24 06:28 Current Medications Generic Name Dose Route Start Last Admin Trade Name Freq PRN Reason Stop Dose Admin Acetaminophen 650 mg 06/17/24 19:13 Acetaminophen Tab 325 Mg Tab PO Q6HR PRN Mild Pain or Fever > 100.5 Albuterol Sulfate 2.5 mg 06/17/24 19:10 Albuterol Nebulized 2.5 Mg/3 Ml INHALATION RT-QID PRN Shortness Of Breath Alprazolam 0.25 mg 06/17/24 19:10 06/29/24 05:32 Alprazolam 0.25 Mg Tab PO 0.25 mg TID PRN Administration Anxiety Apixaban 5 mg 06/25/24 09:00 07/03/24 12:17 Apixaban 5 Mg Tab PO 5 mg BID HARIKA Administration Protocol Ascorbic Acid 1,000 mg 06/18/24 09:00 07/03/24 12:19 Ascorbic Acid 500 Mg Tab PO 1,000 mg DAILY HARIKA Administration Atorvastatin Calcium 20 mg 06/18/24 09:00 07/03/24 12:19 Atorvastatin 20 Mg Tab PO 20 mg DAILY HARIKA Administration Carvedilol 3.125 mg 06/17/24 21:00 07/03/24 06:37 Carvedilol 3.125 Mg Tab PO Not Given BID-W/MEALS HARIKA Cholecalciferol 25 mcg 06/18/24 09:00 07/03/24 12:19 Cholecalciferol 25 Mcg (1000 Iu) Tablet PO 25 mcg DAILY HARIKA Administration Darbepoetin Fernando 60 mcg 06/22/24 13:00 06/29/24 12:14 Darbepoetin Fernando 60 Mcg/0.3 Ml Syringe SQ 60 mcg Q7D HARIKA Administration Dextrose/Water 25 ml 06/18/24 10:18 Dextrose 50% Syringe 50 Ml IVP PER PROTOCOL PRN Hypoglycemia Protocol Dextrose/Water 50 ml 06/18/24 10:18 Dextrose 50% Syringe 50 Ml IVP PER PROTOCOL PRN Hypoglycemia Protocol Escitalopram Oxalate 10 mg 06/18/24 09:00 07/03/24 12:19 Escitalopram 10 Mg Tab PO 10 mg DAILY HARIKA Administration Furosemide 80 mg 06/18/24 09:00 07/03/24 12:19 Furosemide 40 Mg Tab PO 80 mg DAILY HARIKA Administration Ipratropium [place] 0.5 mg 06/22/24 08:00 07/03/24 12:17 Ipratropium 0.5 Mg/2.5 Ml Nebu INHALATION Not Given RT-QID HARIKA Lactic Acid 1 applic 06/17/24 20:35 Ammonium Lactate 12% Lotion 225 Gm Btl TOPICAL BID PRN DRY ITCHY SKIN Protocol Magnesium Hydroxide 2,400 mg 06/28/24 11:37 06/30/24 22:57 Magnesium Hydroxide 2,400 Mg/30 Ml Cup PO 2,400 mg DAILY PRN Administration Constipation Midodrine 10 mg 06/17/24 19:10 07/03/24 08:23 Midodrine 5 Mg Tab PO 10 mg AC-TID PRN Administration Blood Pressure - Low Midodrine 10 mg 06/18/24 12:30 07/03/24 12:21 Midodrine 5 Mg Tab PO 10 mg AC-TID HARIKA Administration Multivitamins 1 each 06/18/24 09:00 07/03/24 12:18 Multivitamins, Thera 1 Each Tab PO 1 each DAILY HARIKA Administration Naloxone HCl 0.2 mg 06/17/24 19:13 Naloxone 0.4 Mg/Ml 1 Ml Vial IV Q2M PRN Opioid Reversal Non-Formulary Medication 1 applic 06/17/24 20:45 07/02/24 21:31 Periguard Ointment TOPICAL Not Given DIRECTED HARIKA Toujeo 300units/Ml 24 each 06/20/24 07:00 07/03/24 06:38 SQ 24 each DAILY@0700 HARIKA Administration Toujeo 300units/Ml 16 each 06/20/24 06:09 06/30/24 20:48 SQ 16 each HS PRN Administration BLOOD SUGAR >200 Nystatin 1 applic 06/17/24 21:00 07/03/24 12:19 Nystatin 100,000unit/Gm Cream 30 Gm Tube TOPICAL 1 applic BID HARIKA Administration Protocol Ondansetron HCl 4 mg 07/03/24 00:27 07/03/24 07:52 Ondansetron 4 Mg/2 Ml Vial IVP 4 mg Q6HR PRN Administration Nausea And Vomiting Pantoprazole Sodium 40 mg 06/18/24 09:00 07/03/24 12:21 Pantoprazole 40 Mg Tablet PO 40 mg DAILY HARIKA Administration Sacubitril/Valsartan 1 each 06/17/24 21:00 07/03/24 12:17 Sacubitril/Valsartan 24 Mg-26 Mg Tablet PO 1 each BID HARIKA Administration Tramadol HCl 50 mg 06/17/24 19:10 07/03/24 05:09 Tramadol 50 Mg Tab PO 50 mg TID PRN Administration Pain 4-10 White Petrol/Mineral Oil/Lanolin 1 applic 06/17/24 20:35 Vits A & D-White Pet-Lanolin Tube TOPICAL DAILY PRN itching back Protocol Intake and Output 07/02/24 07/03/24 07/03/24 22:59 06:59 14:59 Intake Total 400 Output Total 2600 Balance -2200 Intake: Hemodialysis 400 Output: Hemodialysis 1500 Hemodialysis Net Amount 1100 Other: Voiding Method Diaper # Voids 3 # Bowel Movements 2 3 Weight 114 kg 07/02/24 06:28 07/02/24 06:28
[2024-07-03 16:10] LABS: Glucose,Whole Blood 158 mg/dL (70-110)
--- NOTE | 2024-07-03 20:10 | P.PN ---
Subjective Progress Note Date: 07/03/24 This is a history of physical and 78-year-old white female with known history of end-stage renal disease who has had transportation security. Also, there has been of bedbug infestation in her household which needs to be taken care of before she goes home. She has missed dialysis this week and is now admitted for appropriate treatment. Appreciate nephrology input. She is lying comfortably alert and oriented. Objective - Vital Signs Vital signs: Vital Signs Temp 99.1 F 07/03/24 07:21 Pulse 71 07/03/24 12:21 Resp 17 07/03/24 07:21 BP 95/56 07/03/24 12:21 Pulse Ox 98 07/03/24 07:21 FiO2 Intake & Output 07/02/24 07/03/24 07/03/24 18:59 06:59 18:59 Intake Total 400 Output Total 2600 Balance -2200 Weight 114 kg Intake: Hemodialysis 400 Output: Hemodialysis 1500 Hemodialysis Net Amount 1100 Other: Voiding Method Diaper Diaper # Voids 3 # Bowel Movements 2 3 - Exam GENERAL: The patient is alert and oriented x3, not in any acute distress. Well developed, well nourished. HEENT: Pupils are round and equally reacting to light. EOMI. No scleral icterus. No conjunctival pallor. Normocephalic, atraumatic. No pharyngeal erythema. No thyromegaly. CARDIOVASCULAR: S1 and S2 present. No murmurs, rubs, or gallops. PULMONARY: Chest is clear to auscultation, no wheezing or crackles. ABDOMEN: Soft, nontender, nondistended, normoactive bowel sounds. No palpable organomegaly. MUSCULOSKELETAL: No joint swelling or deformity. EXTREMITIES: No cyanosis, clubbing, or pedal edema. NEUROLOGICAL: Gross neurological examination did not reveal any focal deficits. SKIN: No rashes. - Labs CBC & Chem 7: 07/02/24 06:28 07/02/24 06:28 Labs: Abnormal Lab Results - Last 24 Hours (Table) 07/02/24 07/02/24 07/03/24 Range/Units 16:26 20:51 06:35 POC Glucose (mg/dL) 185 H 198 H 168 H (70-110) mg/dL 07/03/24 Range/Units 11:31 POC Glucose (mg/dL) 144 H (70-110) mg/dL Assessment and Plan Assessment: End-stage renal disease on dialysis Acute on chronic anemia Missed dialysis session Bedbug infestation Alcoholic liver disease Monitor vital signs Monitor CBC Monitor CMP Continue Coreg, Lipitor Continue Eliquis Continue Entresto Monitor blood sugar levels, continue current insulin regimen Nephrology following for maintenance dialysis Labs and medication were reviewed.. Continue same treatment. Continue with symptomatic treatment. Resume home medication. Monitor labs and vitals. DVT and GI prophylaxis. Further recommendations as per clinical course of the patient
[2024-07-03] MEDS: PROCHLORPERAZINE INJ 10 MG/2 ML VIAL IVP PRN (20:17)
[2024-07-03 20:50] LABS: Glucose,Whole Blood 220 mg/dL (70-110)
[2024-07-04 06:38] LABS: Glucose,Whole Blood 176 mg/dL (70-110)
--- NOTE | 2024-07-04 11:51 | P.PN ---
Subjective Patient is seen for follow-up for end-stage renal disease. Status post dialysis yesterday with UF of 1.5 L. No significant complaints. Blood pressure is not low. Objective - Vital Signs Vital signs: Vital Signs Temp 98 F 07/04/24 07:02 Pulse 65 07/04/24 11:49 Resp 18 07/04/24 07:02 BP 105/63 07/04/24 11:49 Pulse Ox 98 07/04/24 07:02 FiO2 Intake & Output 07/03/24 07/04/24 07/04/24 18:59 06:59 18:59 Intake Total 500 Output Total 3500 Balance -3000 Weight 113 kg Intake: Hemodialysis 500 Output: Hemodialysis 2000 Hemodialysis Net Amount 1500 Other: Voiding Method Diaper Diaper Diaper # Voids 3 1 # Bowel Movements 1 1 - Exam Patient is awake, comfortable, no acute distress Examination of the heart S1 and S2 Examination of the lungs bilateral breath sounds are heard Abdomen soft distended nontender Examination of lower extremities shows 2+ edema, chronic skin changes noted. - Labs CBC & Chem 7: 07/02/24 06:28 07/02/24 06:28 Labs: Abnormal Lab Results - Last 24 Hours (Table) 07/03/24 07/03/24 07/04/24 Range/Units 16:08 20:48 06:36 POC Glucose (mg/dL) 158 H 220 H 176 H (70-110) mg/dL Assessment and Plan Assessment: 1. End-stage renal disease maintained on hemodialysis on Friday schedule. Started on hemodialysis in April 2024. Has permacath. 2. Hyperkalemia secondary to missed hemodialysis. Also on Entresto. 3. History of liver cirrhosis. Gets regular paracentesis 4. Diabetes mellitus. 5. Anemia of chronic kidney disease. ferritin 106, iron sat 9.1% 6. Hypervolemic hyponatremia, improved with dialysis 7. Anemia with no active bleeding noted status post packed RBCs transfusion. Started on aranesp Plan: Hemodialysis on 07/06/2024 Continue Aranesp
[2024-07-04 11:52] LABS: Glucose,Whole Blood 240 mg/dL (70-110)
--- NOTE | 2024-07-04 12:39 | P.PN ---
Subjective Progress Note Date: 07/04/24 This is a pleasant 78-year-old female patient of Dr. Guillen with past medical history of atrial fibrillation, tachycardia induced cardiomyopathy, normalization of the LV systolic function and sinus mechanism, hypertension, hyperlipidemia, chronic kidney disease recently started on hemodialysis and diabetes mellitus type 2. Was last seen in our office in October 2022. Presented to the hospital with complaints of missing dialysis due to some transportation issues as well as bedbug infestation at her home. She has been requiring paracentesis as well which has been postponed therefore she is feeling some tightness in her abdomen and chest. We were asked see the patient in consultation for low blood pressure. She is on midodrine. She continues to undergo hemodialysis.. Diagnostics -EKG: Sinus rhythm -Chest x-ray: Cardiomegaly without overt fluid overload -Ultrasound-guided paracentesis with 4.6 L of straw-colored fluid removed on 06/21/2024 -Laboratory studies: Hemoglobin 7.5, stable, sodium 131, potassium 4.8, BUN 57.5, creatinine 4.3 -Home cardiac medications: Eliquis 5 mg p.o. twice daily, Lipitor 20 mg p.o. daily, carvedilol 3.125 mg p.o. twice daily, Lasix 80 mg p.o. daily, Entresto 24-26 mg p.o. twice daily -Prior stress test: 2012 showing fixed anterior wall defect -Echocardiogram: September 2022 normal EF moderate LVH and mild MR -Cardiac catheterization: April 2019 showing normal coronaries 07/04/2024 Patient was seen and examined resting comfortably in bed. Edema is stable. Breathing is stable. She is anticipating dialysis again on Friday. Being followed closely by nephrology. Blood pressure has been stable. PHYSICAL EXAMINATION: This is a 78-year-old female in no apparent distress at the time of my examination. VITAL SIGNS: Reviewed. HEENT: Head is atraumatic, normocephalic. Pupils are equal, round. Sclerae anicteric. Conjunctivae are clear. Mucous membranes of the mouth are moist. Neck is supple. There is no elevated jugular venous pressure. No carotid bruit is heard. CHEST EXAMINATION: Diminished air entry bilaterally. No wheezes rales or rhonchi. Respirations even and nonlabored. HEART EXAMINATION: Heart regular, positive S1 and S2. No S3. No S4. No clicks, rubs or murmurs. ABDOMEN: Soft, nontender. Bowel sounds are heard. No organomegaly noted. EXTREMITIES: 2+ peripheral pulses with evidence of peripheral edema and no calf tenderness noted. NEUROLOGIC EXAMINATION: Patient is awake, alert and oriented x3. Assessment: 1. Nonischemic cardiomyopathy 2. Persistent atrial fibrillation, currently maintaining sinus mechanism 3. Hypotension 4. End-stage renal failure on hemodialysis Plan: Obtain a 2D echo with Doppler study to assess cardiac structure and function. Switch from carvedilol to metoprolol succinate. If blood pressure remains low may consider discontinuing Entresto. Nurse practitioner note has been reviewed, I agree with documented findings and plan of care. Patient was seen and examined. Objective - Vital Signs Vital signs: Vital Signs Temp 98 F 07/04/24 07:02 Pulse 65 07/04/24 11:49 Resp 18 07/04/24 07:02 BP 105/63 07/04/24 11:49 Pulse Ox 98 07/04/24 07:02 FiO2 Intake & Output 07/03/24 07/04/24 07/04/24 18:59 06:59 18:59 Intake Total 500 Output Total 3500 Balance -3000 Weight 113 kg Intake: Hemodialysis 500 Output: Hemodialysis 2000 Hemodialysis Net Amount 1500 Other: Voiding Method Diaper Diaper Diaper # Voids 3 1 # Bowel Movements 1 1 - Labs CBC & Chem 7: 07/02/24 06:28 07/02/24 06:28 Labs: Abnormal Lab Results - Last 24 Hours (Table) 07/03/24 07/03/24 07/04/24 Range/Units 16:08 20:48 06:36 POC Glucose (mg/dL) 158 H 220 H 176 H (70-110) mg/dL 07/04/24 Range/Units 11:51 POC Glucose (mg/dL) 240 H (70-110) mg/dL
--- NOTE | 2024-07-04 15:21 | P.PN ---
Subjective Progress Note Date: 07/04/24 This is a history of physical and 78-year-old white female with known history of end-stage renal disease who has had transportation security. Also, there has been of bedbug infestation in her household which needs to be taken care of before she goes home. She has missed dialysis this week and is now admitted for appropriate treatment. Appreciate nephrology input. She is lying comfortably alert and oriented. 07/04/2024 Patient was seen and examined resting comfortably in bed. Edema is stable. Breathing is stable. She is anticipating dialysis again on Friday. Being fo llowed closely by nephrology. Vital signs reviewed and stable with temperature of 98, pulse 65, respiration 18 and blood pressure of 105/63, O2 saturation 98% Patient has been evaluated by cardiology for softer blood pressures-- Obtain a 2D echo with Doppler study to assess cardiac structure and function. Switch from carvedilol to metoprolol succinate. If blood pressure remains low may consider discontinuing Entresto. Objective - Vital Signs Vital signs: Vital Signs Temp 98 F 07/04/24 07:02 Pulse 66 07/04/24 07:02 Resp 18 07/04/24 07:02 BP 108/67 07/04/24 06:45 Pulse Ox 98 07/04/24 07:02 FiO2 Intake & Output 07/03/24 07/04/24 07/04/24 18:59 06:59 18:59 Intake Total 500 Output Total 3500 Balance -3000 Weight 113 kg Intake: Hemodialysis 500 Output: Hemodialysis 2000 Hemodialysis Net Amount 1500 Other: Voiding Method Diaper Diaper # Voids 3 1 # Bowel Movements 1 1 - Exam GENERAL: The patient is alert and oriented x3, not in any acute distress. Well developed, well nourished. HEENT: Pupils are round and equally reacting to light. EOMI. No scleral icterus. No conjunctival pallor. Normocephalic, atraumatic. No pharyngeal erythema. No thyromegaly. CARDIOVASCULAR: S1 and S2 present. No murmurs, rubs, or gallops. PULMONARY: Chest is clear to auscultation, no wheezing or crackles. ABDOMEN: Soft, nontender, nondistended, normoactive bowel sounds. No palpable organomegaly. MUSCULOSKELETAL: No joint swelling or deformity. EXTREMITIES: No cyanosis, clubbing, or pedal edema. NEUROLOGICAL: Gross neurological examination did not reveal any focal deficits. SKIN: No rashes. - Labs CBC & Chem 7: 07/02/24 06:28 07/02/24 06:28 Labs: Abnormal Lab Results - Last 24 Hours (Table) 07/03/24 07/03/24 07/03/24 Range/Units 11:31 16:08 20:48 POC Glucose (mg/dL) 144 H 158 H 220 H (70-110) mg/dL 07/04/24 Range/Units 06:36 POC Glucose (mg/dL) 176 H (70-110) mg/dL Assessment and Plan Assessment: End-stage renal disease on dialysis Acute on chronic anemia Missed dialysis session Bedbug infestation Alcoholic liver disease Monitor vital signs Monitor CBC Monitor CMP Continue Coreg, Lipitor Continue Eliquis Continue Entresto Monitor blood sugar levels, continue current insulin regimen Nephrology following for maintenance dialysis Labs and medication were reviewed.. Continue same treatment. Continue with symptomatic treatment. Resume home medication. Monitor labs and vitals. DVT and GI prophylaxis. Further recommendations as per clinical course of the patient
[2024-07-04 16:37] LABS: Glucose,Whole Blood 223 mg/dL (70-110)
[2024-07-04 20:25] LABS: Glucose,Whole Blood 211 mg/dL (70-110)
[2024-07-04 21:53] LABS: Glucose,Whole Blood 205 mg/dL (70-110)
[2024-07-04 23:08] LABS: HCT 25.8 % (37.2-46.3); HGB 8.3 g/dL (12.0-15.0); MCH 27.6 pg (27.0-32.0); MCHC 32.2 g/dL (32.0-37.0); MCV 85.7 fL (80.0-97.0); Mean Platelet Volume 10.7 fL (9.5-12.2); Platelet Count 227 10*3/uL (140-440); RBC 3.01 10*6/uL (4.10-5.20); RDW 15.7 % (11.5-14.5); WBC 9.75 10*3/uL (4.50-10.00)
[2024-07-05] MEDS: CALCIUM CARBONATE 500 MG CHEWABLE PO PRN (02:27)
[2024-07-05 06:23] LABS: Glucose,Whole Blood 171 mg/dL (70-110)
[2024-07-05] MEDS: METOPROLOL SUCCINATE (ER) 25 MG TAB.ER.24H PO SCH (08:13)
--- NOTE | 2024-07-05 08:43 | P.PN ---
Subjective Progress Note Date: 07/05/24 This is an 78-year-old female who was admitted after missing 3 dialysis sessions due to a bedbug infestation in her house. Patient was unable to find transportation to dialysis due to the bedbugs in her home. Patient seen this morning sitting up in bed resting comfortably. She is tolerating diet. Vitals are stable. She did have paracentesis yesterday with 4.6 L of fluid removed. Case management is working on placement for patient. 06/24/2024 Patient seen and evaluated this morning sitting up in bed resting comfortably. She is scheduled to have dialysis today. Hemoglobin did drop on Friday and patient received another unit of packed red blood cells. She was started on Aranesp by nephrology. Patient states there are 2 quotes for her home to be fumigated for bedbugs and are awaiting a decision. Labs not back for today at time of dictation. Vitals are stable. Patient is tolerating diet. 06/28/2024 Patient seen and evaluated sitting up in bed resting comfortably this morning. Her vitals and lab work have been stable. Still awaiting her home to be fumigated for bedbugs. She is awaiting the company assisting her to pick which of the 2 quotes they would like. 06/29/2024 Patient seen and evaluated sitting up in bed eating breakfast this morning. She is scheduled for hemodialysis today. Still waiting for her home to be fumigated for bedbugs. 07/01/2024 Patient seen and evaluated sitting up in bed this morning resting comfortably. We are still waiting for home to be fumigated for bedbugs. Reportedly the quote is being decided on. 07/05/2024 Patient seen this morning sitting up in bed resting comfortably. Paracentesis is planned for today. Patient still waiting for home to be fumigated for bedbugs. Patient did have a positive stool for occult blood. Her hemoglobin has remained stable. Awaiting recheck for today. Objective - Vital Signs Vital signs: Vital Signs Temp 97.9 F 07/05/24 07:05 Pulse 74 07/05/24 08:06 Resp 17 07/05/24 07:05 BP 103/61 07/05/24 08:06 Pulse Ox 95 07/05/24 07:05 FiO2 Intake & Output 07/04/24 07/05/24 07/05/24 18:59 06:59 18:59 Intake Total 120 120 Output Total 3 Balance 117 120 Weight 113 kg Intake: Oral 120 120 Output: Stool 3 Other: Voiding Method Diaper Diaper # Voids 4 3 # Bowel Movements 2 - Constitutional General appearance: Present: cooperative, no acute distress - EENT Eyes: Present: PERRLA - Neck Neck: Present: normal ROM. Absent: lymphadenopathy, rigidity - Respiratory Respiratory: bilateral: diminished - Cardiovascular Heart sounds: normal: S1, S2 - Gastrointestinal General gastrointestinal: Present: soft. Absent: tenderness - Integumentary Integumentary: Present: normal, normal turgor - Musculoskeletal Musculoskeletal: Present: generalized weakness - Psychiatric Psychiatric: Present: A&O x's 3 - Labs CBC & Chem 7: 07/04/24 22:54 07/02/24 06:28 Labs: Abnormal Lab Results - Last 24 Hours (Table) 07/04/24 07/04/24 07/04/24 Range/Units 11:51 16:36 20:23 RBC (4.10-5.20) 10*6/uL Hgb (12.0-15.0) g/dL Hct (37.2-46.3) % RDW (11.5-14.5) % POC Glucose (mg/dL) 240 H 223 H 211 H (70-110) mg/dL Stool Occult Blood (Negative) 07/04/24 07/04/24 07/04/24 Range/Units 21:52 22:10 22:54 RBC 3.01 L (4.10-5.20) 10*6/uL Hgb 8.3 L (12.0-15.0) g/dL Hct 25.8 L (37.2-46.3) % RDW 15.7 H (11.5-14.5) % POC Glucose (mg/dL) 205 H (70-110) mg/dL Stool Occult Blood Positive H (Negative) 07/05/24 Range/Units 06:22 RBC (4.10-5.20) 10*6/uL Hgb (12.0-15.0) g/dL Hct (37.2-46.3) % RDW (11.5-14.5) % POC Glucose (mg/dL) 171 H (70-110) mg/dL Stool Occult Blood (Negative) Assessment and Plan (1) Infestation by bed bug Current Visit: Yes Status: Acute Code(s): B88.8 - OTHER SPECIFIED INFESTATIONS SNOMED Code(s): 55952104 (2) Missed dialysis Current Visit: Yes Status: Acute Code(s): URF1164 - SNOMED Code(s): 007466573 (3) Ascites Current Visit: No Status: Acute Code(s): R18.8 - OTHER ASCITES SNOMED Code(s): 116222970 (4) Atrial fibrillation Current Visit: No Status: Acute Code(s): I48.91 - UNSPECIFIED ATRIAL FIBRILLATION SNOMED Code(s): 44143994 (5) CAD (coronary artery disease) Current Visit: No Status: Acute Code(s): I25.10 - ATHSCL HEART DISEASE OF [place] CORONARY ARTERY W/O ANG PCTRS SNOMED Code(s): 24556213 (6) Diabetes Current Visit: No Status: Acute Code(s): E11.9 - TYPE 2 DIABETES MELLITUS WITHOUT COMPLICATIONS SNOMED Code(s): 39320819 (7) CKD (chronic kidney disease) Current Visit: No Status: Acute Code(s): N18.9 - CHRONIC KIDNEY DISEASE, UNSPECIFIED SNOMED Code(s): 952475828 (8) Hyperlipidemia Current Visit: No Status: Acute Code(s): E78.5 - HYPERLIPIDEMIA, UNSPECIFIED SNOMED Code(s): 50560143 (9) Hypertension Current Visit: No Status: Acute Code(s): I10 - ESSENTIAL (PRIMARY) HYPERTENSION SNOMED Code(s): 38146785 Plan: Await CBC results from today. Recheck CBC in the morning. Awaiting patient's home to be fumigated for bedbugs. Patient seen and evaluated by nurse practitioner, physician in agreement with plan.
[2024-07-05 10:17] LABS: Basophils # (A) 0.06 X 10*3/uL (0.00-0.10); Basophils % (A) 0.7 %; Eosinophils # (A) 0.49 X 10*3/uL (0.04-0.35); Eosinophils % (A) 5.4 %; HCT 27.3 % (37.2-46.3); HGB 8.4 g/dL (12.0-15.0); Lymphocytes # (A) 1.32 X 10*3/uL (0.90-5.00); Lymphocytes % (A) 14.5 %; MCHC 30.8 g/dL (32.0-37.0); MCV 87.8 FL (80.0-97.0); Mean Platelet Volume 10.5 FL (9.5-12.2); Monocytes # (A) 0.88 X 10*3/uL (0.20-1.00); Monocytes % (A) 9.6 %; NRBC Per 100 WBC 0 X 10*3/uL (0.00-0.01); Neutrophils # (A) 6.33 X 10*3/uL (1.80-7.70); Neutrophils % (A) 69.4 %; Platelet Count 274 X 10*3/uL (140-440); RBC 3.11 X 10*6/uL (4.10-5.20); RDW 15.9 % (11.5-14.5); WBC 9.12 X 10*3/uL (4.50-10.00)
[2024-07-05 10:23] LABS: INR 1.1 (<1.2); Prothrombin Time 11.9 sec (10.0-12.5)
[2024-07-05 12:19] LABS: Glucose,Whole Blood 205 mg/dL (70-110)
--- NOTE | 2024-07-05 15:03 | P.PN ---
Subjective Progress Note Date: 07/05/24 This is a pleasant 78-year-old female patient of Dr. Guillen with past medical history of atrial fibrillation, tachycardia induced cardiomyopathy, normalization of the LV systolic function and sinus mechanism, hypertension, hyperlipidemia, chronic kidney disease recently started on hemodialysis and diabetes mellitus type 2. Was last seen in our office in October 2022. Presented to the hospital with complaints of missing dialysis due to some transportation issues as well as bedbug infestation at her home. She has been requiring paracentesis as well which has been postponed therefore she is feeling some tightness in her abdomen and chest. We were asked see the patient in consultation for low blood pressure. She is on midodrine. She continues to undergo hemodialysis. Diagnostics -EKG: Sinus rhythm -Chest x-ray: Cardiomegaly without overt fluid overload -Ultrasound-guided paracentesis with 4.6 L of straw-colored fluid removed on 06/21/2024 -Laboratory studies: Hemoglobin 7.5, stable, sodium 131, potassium 4.8, BUN 57.5, creatinine 4.3 -Home cardiac medications: Eliquis 5 mg p.o. twice daily, Lipitor 20 mg p.o. daily, carvedilol 3.125 mg p.o. twice daily, Lasix 80 mg p.o. daily, Entresto 2 4-26 mg p.o. twice daily -Prior stress test: 2012 showing fixed anterior wall defect -Echocardiogram: September 2022 normal EF moderate LVH and mild MR -Cardiac catheterization: April 2019 showing normal coronaries 07/04/2024 Patient was seen and examined resting comfortably in bed. Edema is stable. Breathing is stable. She is anticipating dialysis again on Friday. Being followed closely by nephrology. Blood pressure has been stable. 07/05/2024 Seen and examined at bedside this a.m. Denies any chest pain chest pressure. Lower extremity swelling is present. Permacath in place, rate controlled atrial fibrillation PHYSICAL EXAMINATION: This is a 78-year-old female in no apparent distress at the time of my examination. VITAL SIGNS: Reviewed. HEENT: Head is atraumatic, normocephalic. Pupils are equal, round. Sclerae anicteric. Conjunctivae are clear. Mucous membranes of the mouth are moist. Neck is supple. There is no elevated jugular venous pressure. No carotid bruit is heard. CHEST EXAMINATION: Diminished air entry bilaterally. No wheezes rales or rhonchi. Respirations even and nonlabored. HEART EXAMINATION: Heart regular, positive S1 and S2. No S3. No S4. No clicks, rubs or murmurs. ABDOMEN: Soft, nontender. Bowel sounds are heard. No organomegaly noted. EXTREMITIES: 2+ peripheral pulses with evidence of peripheral edema and no calf tenderness noted. NEUROLOGIC EXAMINATION: Patient is awake, alert and oriented x3. Assessment: 1. Nonischemic cardiomyopathy 2. Persistent atrial fibrillation, currently maintaining sinus mechanism 3. Hypotension 4. End-stage renal failure on hemodialysis Plan: Reduce Eliquis to 2.5 mg because of age and kidney function Continue metoprolol succinate 25 mg daily, Use midodrine only as needed Continue Entresto for now. If blood pressure is low, consider reducing the dose to half. Objective - Vital Signs Vital signs: Vital Signs Temp 97.9 F 07/05/24 07:05 Pulse 65 07/05/24 14:59 Resp 16 07/05/24 14:59 BP 112/64 07/05/24 14:59 Pulse Ox 95 07/05/24 14:59 FiO2 Intake & Output 07/04/24 07/05/24 07/05/24 18:59 06:59 18:59 Intake Total 120 270 Output Total 3 Balance 117 270 Weight 113 kg Intake: Oral 120 270 Output: Stool 3 Other: Voiding Method Diaper Diaper Diaper # Voids 4 3 # Bowel Movements 2 1 - Labs CBC & Chem 7: 07/05/24 08:22 07/02/24 06:28 Labs: Abnormal Lab Results - Last 24 Hours (Table) 07/04/24 07/04/24 07/04/24 Range/Units 16:36 20:23 21:52 RBC (4.10-5.20) 10*6/uL Hgb (12.0-15.0) g/dL Hct (37.2-46.3) % MCHC (32.0-37.0) g/dL RDW (11.5-14.5) % Eosinophils # (0.04-0.35) X 10*3/uL POC Glucose (mg/dL) 223 H 211 H 205 H (70-110) mg/dL Stool Occult Blood (Negative) 07/04/24 07/04/2425 Range/Units 22:10 22:54 06:22 RBC 3.01 L (4.10-5.20) 10*6/uL Hgb 8.3 L (12.0-15.0) g/dL Hct 25.8 L (37.2-46.3) % MCHC (32.0-37.0) g/dL RDW 15.7 H (11.5-14.5) % Eosinophils # (0.04-0.35) X 10*3/uL POC Glucose (mg/dL) 171 H (70-110) mg/dL Stool Occult Blood Positive H (Negative) 07/05/24 07/05/24 Range/Units 08:22 12:18 RBC 3.11 L (4.10-5.20) 10*6/uL Hgb 8.4 L (12.0-15.0) g/dL Hct 27.3 L (37.2-46.3) % MCHC 30.8 L (32.0-37.0) g/dL RDW 15.9 H (11.5-14.5) % Eosinophils # 0.49 H (0.04-0.35) X 10*3/uL POC Glucose (mg/dL) 205 H (70-110) mg/dL Stool Occult Blood (Negative)
--- NOTE | 2024-07-05 16:39 | P.PN ---
Subjective Patient is seen for follow-up for end-stage renal disease. Status post dialysis on Friday with UF of 1.5 L. No significant complaints. Blood pressure is not low. Scheduled for hemodialysis tomorrow. Objective - Vital Signs Vital signs: Vital Signs Temp 97.8 F 07/05/24 16:00 Pulse 70 07/05/24 16:00 Resp 16 07/05/24 16:00 BP 122/55 07/05/24 16:00 Pulse Ox 95 07/05/24 16:00 FiO2 Intake & Output 07/04/24 07/05/24 07/05/24 18:59 06:59 18:59 Intake Total 120 270 Output Total 3 Balance 117 270 Weight 113 kg Intake: Oral 120 270 Output: Stool 3 Other: Voiding Method Diaper Diaper Diaper # Voids 4 3 # Bowel Movements 2 1 - Exam Patient is awake, comfortable, no acute distress Examination of the heart S1 and S2 Examination of the lungs bilateral breath sounds are heard Abdomen soft distended nontender Examination of lower extremities shows 2+ edema, chronic skin changes noted. - Labs CBC & Chem 7: 07/05/24 08:22 07/02/24 06:28 Labs: Abnormal Lab Results - Last 24 Hours (Table) 07/04/24 07/04/24 07/04/24 Range/Units 16:36 20:23 21:52 RBC (4.10-5.20) 10*6/uL Hgb (12.0-15.0) g/dL Hct (37.2-46.3) % MCHC (32.0-37.0) g/dL RDW (11.5-14.5) % Eosinophils # (0.04-0.35) X 10*3/uL POC Glucose (mg/dL) 223 H 211 H 205 H (70-110) mg/dL Stool Occult Blood (Negative) 07/04/24 07/04/24 07/05/24 Range/Units 22:10 22:54 06:22 RBC 3.01 L (4.10-5.20) 10*6/uL Hgb 8.3 L (12.0-15.0) g/dL Hct 25.8 L (37.2-46.3) % MCHC (32.0-37.0) g/dL RDW 15.7 H (11.5-14.5) % Eosinophils # (0.04-0.35) X 10*3/uL POC Glucose (mg/dL) 171 H (70-110) mg/dL Stool Occult Blood Positive H (Negative) 07/05/24 07/05/24 Range/Units 08:22 12:18 RBC 3.11 L (4.10-5.20) 10*6/uL Hgb 8.4 L (12.0-15.0) g/dL Hct 27.3 L (37.2-46.3) % MCHC 30.8 L (32.0-37.0) g/dL RDW 15.9 H (11.5-14.5) % Eosinophils # 0.49 H (0.04-0.35) X 10*3/uL POC Glucose (mg/dL) 205 H (70-110) mg/dL Stool Occult Blood (Negative) Assessment and Plan Assessment: 1. End-stage renal disease maintained on hemodialysis on Friday schedule. Started on hemodialysis in April 2024. Has permacath. 2. Hyperkalemia secondary to missed hemodialysis. Also on Entresto. 3. History of liver cirrhosis. Gets regular paracentesis 4. Diabetes mellitus. 5. Anemia of chronic kidney disease. ferritin 106, iron sat 9.1% 6. Hypervolemic hyponatremia, improved with dialysis 7. Anemia with no active bleeding noted status post packed RBCs transfusion. Started on aranesp Plan: Hemodialysis tomorrow. Can decrease Entresto if blood pressure is low with hemodialysis. Patient tolerated her treatment fairly well on 07/03/2024 Continue Aranesp
[2024-07-05 16:54] LABS: Glucose,Whole Blood 201 mg/dL (70-110)
[2024-07-05] MEDS: ALBUMIN HUMAN 25% 50 ML in EMPTY BAG 1 BAG IVPB SCH (18:00)
[2024-07-05 21:04] LABS: Glucose,Whole Blood 216 mg/dL (70-110)
[2024-07-05] MEDS: APIXABAN 2.5 MG TABLET PO SCH (21:47)
[2024-07-06 00:40] LABS: Glucose,Whole Blood 216 mg/dL (70-110)
[2024-07-06 06:15] LABS: Glucose,Whole Blood 192 mg/dL (70-110)
--- NOTE | 2024-07-06 08:36 | P.PN ---
Subjective Progress Note Date: 07/06/24 This is an 78-year-old female who was admitted after missing 3 dialysis sessions due to a bedbug infestation in her house. Patient was unable to find transportation to dialysis due to the bedbugs in her home. Patient seen this morning sitting up in bed resting comfortably. She is tolerating diet. Vitals are stable. She did have paracentesis yesterday with 4.6 L of fluid removed. Case management is working on placement for patient. 06/24/2024 Patient seen and evaluated this morning sitting up in bed resting comfortably. She is scheduled to have dialysis today. Hemoglobin did drop on Friday and patient received another unit of packed red blood cells. She was started on Aranesp by nephrology. Patient states there are 2 quotes for her home to be fumigated for bedbugs and are awaiting a decision. Labs not back for today at time of dictation. Vitals are stable. Patient is tolerating diet. 06/28/2024 Patient seen and evaluated sitting up in bed resting comfortably this morning. Her vitals and lab work have been stable. Still awaiting her home to be fumigated for bedbugs. She is awaiting the company assisting her to pick which of the 2 quotes they would like. 06/29/2024 Patient seen and evaluated sitting up in bed eating breakfast this morning. She is scheduled for hemodialysis today. Still waiting for her home to be fumigated for bedbugs. 07/01/2024 Patient seen and evaluated sitting up in bed this morning resting comfortably. We are still waiting for home to be fumigated for bedbugs. Reportedly the quote is being decided on. 07/05/2024 Patient seen this morning sitting up in bed resting comfortably. Paracentesis is planned for today. Patient still waiting for home to be fumigated for bedbugs. Patient did have a positive stool for occult blood. Her hemoglobin has remained stable. Awaiting recheck for today. 07/06/2024 Patient seen and evaluated this morning sitting up in bed resting comfortably. She underwent paracentesis yesterday. Her hemoglobin continues to remain stable. Patient still waiting for home to be fumigated for bedbugs. Objective - Vital Signs Vital signs: Vital Signs Temp 99.1 F 07/06/24 00:43 Pulse 71 07/06/24 00:43 Resp 16 07/06/24 00:43 BP 114/53 07/06/24 06:27 Pulse Ox 97 07/06/24 00:43 FiO2 Intake & Output 07/05/24 07/06/24 07/06/24 18:59 06:59 18:59 Intake Total 270 540 Balance 270 540 Weight 106.5 kg Intake: Oral 270 540 Other: Voiding Method Diaper Diaper Diaper # Voids 1 3 # Bowel Movements 1 2 - Constitutional General appearance: Present: cooperative, no acute distress - EENT Eyes: Present: PERRLA - Neck Neck: Present: normal ROM. Absent: lymphadenopathy, rigidity - Respiratory Respiratory: bilateral: diminished - Cardiovascular Heart sounds: normal: S1, S2 - Gastrointestinal General gastrointestinal: Present: soft. Absent: tenderness - Integumentary Integumentary: Present: normal, normal turgor - Musculoskeletal Musculoskeletal: Present: generalized weakness - Psychiatric Psychiatric: Present: A&O x's 3 - Labs CBC & Chem 7: 07/05/24 08:22 07/02/24 06:28 Labs: Abnormal Lab Results - Last 24 Hours (Table) 07/05/24 07/05/24 07/05/24 Range/Units 08:22 12:18 16:52 RBC 3.11 L (4.10-5.20) X 10*6/uL Hgb 8.4 L (12.0-15.0) g/dL Hct 27.3 L (37.2-46.3) % MCHC 30.8 L (32.0-37.0) g/dL RDW 15.9 H (11.5-14.5) % Eosinophils # 0.49 H (0.04-0.35) X 10*3/uL POC Glucose (mg/dL) 205 H 201 H (70-110) mg/dL 07/05/24 07/06/24 07/06/24 Range/Units 21:02 00:38 06:14 RBC (4.10-5.20) X 10*6/uL Hgb (12.0-15.0) g/dL Hct (37.2-46.3) % MCHC (32.0-37.0) g/dL RDW (11.5-14.5) % Eosinophils # (0.04-0.35) X 10*3/uL POC Glucose (mg/dL) 216 H 216 H 192 H (70-110) mg/dL Assessment and Plan (1) Infestation by bed bug Current Visit: Yes Status: Acute Code(s): B88.8 - OTHER SPECIFIED INFESTATIONS SNOMED Code(s): 70586172 (2) Missed dialysis Current Visit: Yes Status: Acute Code(s): ATK9306 - SNOMED Code(s): 834089057 (3) Ascites Current Visit: No Status: Acute Code(s): R18.8 - OTHER ASCITES SNOMED Code(s): 463499700 (4) Atrial fibrillation Current Visit: No Status: Acute Code(s): I48.91 - UNSPECIFIED ATRIAL FIBRILLATION SNOMED Code(s): 25162699 (5) CAD (coronary artery disease) Current Visit: No Status: Acute Code(s): I25.10 - ATHSCL HEART DISEASE OF [place] CORONARY ARTERY W/O ANG PCTRS SNOMED Code(s): 31544786 (6) Diabetes Current Visit: No Status: Acute Code(s): E11.9 - TYPE 2 DIABETES MELLITUS WITHOUT COMPLICATIONS SNOMED Code(s): 83155828 (7) CKD (chronic kidney disease) Current Visit: No Status: Acute Code(s): N18.9 - CHRONIC KIDNEY DISEASE, UNSPECIFIED SNOMED Code(s): 542873959 (8) Hyperlipidemia Current Visit: No Status: Acute Code(s): E78.5 - HYPERLIPIDEMIA, UNSPECIFIED SNOMED Code(s): 71464915 (9) Hypertension Current Visit: No Status: Acute Code(s): I10 - ESSENTIAL (PRIMARY) HYPERTENSION SNOMED Code(s): 21917173 Plan: Await CBC results from today. Recheck CBC in the morning. Awaiting patient's home to be fumigated for bedbugs. Patient seen and evaluated by nurse practitioner, physician in agreement with plan.
[2024-07-06 09:02] LABS: HCT 24.1 % (37.2-46.3); HGB 7.4 g/dL (12.0-15.0); MCH 27.3 pg (27.0-32.0); MCHC 30.7 g/dL (32.0-37.0); MCV 88.9 FL (80.0-97.0); Mean Platelet Volume 10.6 FL (9.5-12.2); NRBC Per 100 WBC 0 X 10*3/uL (0.00-0.01); Platelet Count 265 X 10*3/uL (140-440); RBC 2.71 X 10*6/uL (4.10-5.20); RDW 15.8 % (11.5-14.5); WBC 8.01 X 10*3/uL (4.50-10.00)
--- NOTE | 2024-07-06 10:16 | US ---
EXAMINATION TYPE: US paracentesis abd w/image DATE OF EXAM: July 05 2024 COMPARISON: June 21 2024 prior paracentesis. CLINICAL INDICATION:Female, 78 years old with history of see IR consult for ordering information; , a miguelinates ATTENDING: Dr. Gay PROCEDURE: Informed consent was obtained. The risks of the procedure were extensively explained incl uding risk of damage to surrounding bowel with perforation and need for additional procedures. Proced ure was performed in the ultrasound suite. Ultrasound imaging of the abdomen demonstrates ascitic fluid. An appropriate access site was localize d to the right lower abdomen. Timeout was taken per protocol. The skin was prepped and draped in the usual sterile fashion and then locally anesthetized with 1% lidocaine. The peritoneal cavity was the n accessed via a 5-Malay one-step needle/catheter. Approximately 5400 mL of clear straw-colored flu id was obtained. Patient tolerated procedure well without immediate complication. Hemostasis at the procedural site w as obtained with a sterile bandage placed. The patient was monitored in the holding area following th e procedure and was subsequently discharged in stable condition. IMPRESSION: Ultrasound guided paracentesis, with approximately 5400 mL of clear straw-colored fluid drained for t herapeutic purposes. No immediate complications were evident. [facility], , 07/06/2024 10:14 AM
--- NOTE | 2024-07-06 10:31 | CA ---
Transthoracic Echo Report Name: Bel Seth Age: 78 Gender: F : 1945 Exam Date: 07/06/2024 08:16 Exam Location: [facility] Ht (in): 62 Wt (lb): 249 Ordering Physician: Eva Thacker Attending/Referring Phys: [id number], Kedar Web Site Developer Zeynep Contreras RDCS Procedure CPT: Indications: cardiomyopathy, Other hypertrophic cardiomyopathy Cardiac Hx: Technical Quality: Fair Contrast 1: Total Dose (mL): Contrast 2: Total Dose (mL): MEASUREMENTS (Male / Female) Normal Values 2D ECHO LV Diastolic Diameter PLAX 4.2 cm 4.2 - 5.9 / 3.9 - 5.3 cm LV Systolic Diameter PLAX 2.2 cm IVS Diastolic Thickness 1.7 cm 0.6 - 1.0 / 0.6 - 0.9 cm LVPW Diastolic Thickness 1.6 cm 0.6 - 1.0 / 0.6 - 0.9 cm LV Relative Wall Thickness 0.8 RV Internal Dim ED PLAX 2.6 cm LA Systolic Diameter LX 4.5 cm 3.0 - 4.0 / 2.7 - 3.8 cm LV Diastolic Volume MOD BP 70.7 cm??? 67 - 155 / 56 - 104 cm??? LV Systolic Volume MOD BP 18.8 cm??? 22 - 58 / 19 - 49 cm??? LV Ejection Fraction MOD BP 73.4 % >= 55 % LV Cardiac Index MOD BP 2649.0 cm???/min???m??? LV Diastolic Volume MOD 4C 96.1 cm??? LV Systolic Volume MOD 4C 21.3 cm??? LV Ejection Fraction MOD 4C 77.8 % LV Cardiac Index MOD 4C 3817.3 cm???/min???m??? LV Diastolic Length 4C 7.4 cm LV Systolic Length 4C 5.4 cm LV Diastolic Volume MOD 2C 48.6 cm??? LV Systolic Volume MOD 2C 16.1 cm??? LV Ejection Fraction MOD 2C 66.8 % LV Cardiac Index MOD 2C 1658.8 cm???/min???m??? LV Diastolic Length 2C 6.5 cm LV Systolic Length 2C 5.2 cm LA Volume 58.5 cm??? 18 - 58 / 22 - 52 cm??? LA Volume Index 25.5 cm???/m??? 16 - 28 cm???/m??? M-MODE Aortic Root Diameter MM 3.9 cm LA Systolic Diameter MM 4.5 cm LA Ao Ratio MM 1.2 AV Cusp Separation MM 1.9 cm DOPPLER AV Peak Velocity 168.0 cm/s AV Peak Gradient 11.3 mmHg MV Area PHT 2.3 cm??? Mitral E Point Velocity 62.8 cm/s Mitral A Point Velocity 94.1 cm/s Mitral E to A Ratio 0.7 MV Deceleration Time 327.6 ms TR Peak Velocity 272.3 cm/s TR Peak Gradient 29.7 mmHg Right Atrial Pressure 5.0 mmHg Pulmonary Artery Systolic Pressu 34.7 mmHg Right Ventricular Systolic Press 34.7 mmHg FINDINGS Left Ventricle Left ventricular ejection fraction is estimated at 55-60 %. Severely increased septal wall thickness. Severely increased posterior wall thickness. Normal left ventricular systolic function with no obvious regional wall motion abnormalities. Right Ventricle Right ventricle not well visualized. Right ventricular systolic pressure within normal limits. Right Atrium Mild right atrial dilatation. Left Atrium Moderately increased left atrial diameter. Mildly increased left atrial volume. Mitral Valve Structurally normal mitral valve. Trace to mild mitral regurgitation. No mitral stenosis. Aortic Valve Trileaflet aortic valve. No aortic stenosis. No aortic regurgitation. Tricuspid Valve Structurally normal tricuspid valve. Mild tricuspid regurgitation. No tricuspid stenosis. Pulmonic Valve Structurally normal pulmonic valve. Trace pulmonic regurgitation. No pulmonic stenosis. Pericardium No pericardial or pleural effusion. Echo free space anterior to the right ventricle likely represents a fat pad. Aorta Mild aortic dilatation at the level of the sinuses of valsalva (root). CONCLUSIONS LVEF 55 to 60% Severe concentric LVH. No obvious LVOT obstruction appreciated Moderate LA dilatation, mild RA dilatation Right ventricular systolic pressure within normal limits. No significant valvular dysfunction appreciated Aortic root at upper lipid abnormal measured at 3.9 cm No significant difference noticed when compared to echo from 2021. Recommend hypertrophic cardiomyopathy workup Previewed by: Dr To Aviles (Electronically Signed) Final Date: 06 July 2024 10:30
--- NOTE | 2024-07-06 11:52 | P.PN ---
Subjective Patient is seen for follow-up for end-stage renal disease. Seen on hemodialysis Tolerating treatment well No significant complaints. Blood pressure is not low. Objective - Vital Signs Vital signs: Vital Signs Temp 98.5 F 07/06/24 07:31 Pulse 76 07/06/24 07:31 Resp 18 07/06/24 07:31 BP 126/56 07/06/24 07:31 Pulse Ox 94 L 07/06/24 07:31 FiO2 Intake & Output 07/05/24 07/06/24 07/06/24 18:59 06:59 18:59 Intake Total 270 540 330 Balance 270 540 330 Weight 106.5 kg Intake: Oral 270 540 330 Other: Voiding Method Diaper Diaper Diaper # Voids 1 3 # Bowel Movements 1 2 - Exam Patient is awake, comfortable, no acute distress Examination of the heart S1 and S2 Examination of the lungs bilateral breath sounds are heard Abdomen soft distended nontender Examination of lower extremities shows 2+ edema, chronic skin changes noted. - Labs CBC & Chem 7: 07/06/24 02:41 07/02/24 06:28 Labs: Abnormal Lab Results - Last 24 Hours (Table) 07/05/24 07/05/24 07/05/24 Range/Units 12:18 16:52 21:02 RBC (4.10-5.20) X 10*6/uL Hgb (12.0-15.0) g/dL Hct (37.2-46.3) % MCHC (32.0-37.0) g/dL RDW (11.5-14.5) % POC Glucose (mg/dL) 205 H 201 H 216 H (70-110) mg/dL 07/06/24 07/06/24 07/06/24 Range/Units 00:38 02:41 06:14 RBC 2.71 L (4.10-5.20) X 10*6/uL Hgb 7.4 L (12.0-15.0) g/dL Hct 24.1 L (37.2-46.3) % MCHC 30.7 L (32.0-37.0) g/dL RDW 15.8 H (11.5-14.5) % POC Glucose (mg/dL) 216 H 192 H (70-110) mg/dL Assessment and Plan Assessment: 1. End-stage renal disease maintained on hemodialysis on Friday schedule. Started on hemodialysis in April 2024. Has permacath. 2. Hyperkalemia secondary to missed hemodialysis. Also on Entresto. 3. History of liver cirrhosis. Gets regular paracentesis 4. Diabetes mellitus. 5. Anemia of chronic kidney disease. ferritin 106, iron sat 9.1% 6. Hypervolemic hyponatremia, improved with dialysis 7. Anemia with no active bleeding noted status post packed RBCs transfusion. Started on aranesp Plan: Hemodialysis today. Increase goal to about 2.5 L Continue Aranesp
[2024-07-06 12:08] LABS: Glucose,Whole Blood 151 mg/dL (70-110)
--- NOTE | 2024-07-06 12:34 | P.PN ---
Subjective Progress Note Date: 07/06/24 This is a pleasant 78-year-old female patient of Dr. Guillen with past medical history of atrial fibrillation, tachycardia induced cardiomyopathy, normalization of the LV systolic function and sinus mechanism, hypertension, hyperlipidemia, chronic kidney disease recently started on hemodialysis and diabetes mellitus type 2. Was last seen in our office in October 2022. Presented to the hospital with complaints of missing dialysis due to some transportation issues as well as bedbug infestation at her home. She has been requiring paracentesis as well which has been postponed therefore she is feeling some tightness in her abdomen and chest. We were asked see the patient in consultation for low blood pressure. She is on midodrine. She continues to undergo hemodialysis. Diagnostics -EKG: Sinus rhythm -Chest x-ray: Cardiomegaly without overt fluid overload -Ultrasound-guided paracentesis with 4.6 L of straw-colored fluid removed on 06/21/2024 -Laboratory studies: Hemoglobin 7.5, stable, sodium 131, potassium 4.8, BUN 57.5, creatinine 4.3 -Home cardiac medications: Eliquis 5 mg p.o. twice daily, Lipitor 20 mg p.o. daily, carvedilol 3.125 mg p.o. twice daily, Lasix 80 mg p.o. daily, Entresto 2 4-26 mg p.o. twice daily -Prior stress test: 2012 showing fixed anterior wall defect -Echocardiogram: September 2022 normal EF moderate LVH and mild MR -Cardiac catheterization: April 2019 showing normal coronaries 07/04/2024 Patient was seen and examined resting comfortably in bed. Edema is stable. Breathing is stable. She is anticipating dialysis again on Friday. Being followed closely by nephrology. Blood pressure has been stable. 07/05/2024 Seen and examined at bedside this a.m. Denies any chest pain chest pressure. Lower extremity swelling is present. Permacath in place, rate controlled atrial fibrillation 07/06 Patient is seen and examined. She denies having chest pain, no shortness of breath. She underwent a paracentesis with removal of 5400 mL of clear straw- colored fluid. She is receiving hemodialysis today. Her lower extremity edema is improved. Blood pressure 126/56, heart rate in the 70s, pulse ox 94% on room air. Hemoglobin 7.4. Echocardiogram reveals EF of 55 to 60%. Severe concentric LVH. No obvious LVOT obstruction. Moderate LA dilatation, mild RA dilatation. Right ventricular systolic pressure within normal limits. No significant valvular dysfunction. Aortic root is 3.9 cm. No significant difference from echocardiogram performed in 2021. Recommend hypertrophic cardiomyopathy workup PHYSICAL EXAMINATION: This is a 78-year-old female in no apparent distress at the time of my examination. VITAL SIGNS: Reviewed. HEENT: Head is atraumatic, normocephalic. Pupils are equal, round. Sclerae anicteric. Conjunctivae are clear. Mucous membranes of the mouth are moist. Neck is supple. There is no elevated jugular venous pressure. No carotid bruit is heard. CHEST EXAMINATION: Diminished air entry bilaterally. No wheezes rales or rhonchi. Respirations even and nonlabored. HEART EXAMINATION: Heart irregular, positive S1 and S2. No S3. No S4. No clicks, rubs or murmurs. ABDOMEN: Soft, nontender. Bowel sounds are heard. No organomegaly noted. EXTREMITIES: 2+ peripheral pulses with evidence of 1+2+ peripheral edema and no calf tenderness noted. NEUROLOGIC EXAMINATION: Patient is awake, alert and oriented x3. Assessment: 1. Nonischemic cardiomyopathy 2. Persistent atrial fibrillation, currently maintaining sinus mechanism 3. Hypotension 4. End-stage renal failure on hemodialysis Plan: Continue Eliquis to 2.5 mg twice daily, reduced dose due to age and kidney function Continue metoprolol succinate 25 mg daily, Use midodrine only as needed Continue Entresto for now. If blood pressure is low, consider reducing the dose to half although blood pressure is currently stable. Recommend hypertrophic cardiomyopathy workup as an outpatient Nurse practitioner note has been reviewed, I agree with documented findings and plan of care. Patient was seen and examined. Objective - Vital Signs Vital signs: Vital Signs Temp 98.5 F 07/06/24 07:31 Pulse 76 07/06/24 07:31 Resp 18 07/06/24 07:31 BP 126/56 07/06/24 07:31 Pulse Ox 94 L 07/06/24 07:31 FiO2 Intake & Output 07/05/24 07/06/24 07/06/24 18:59 06:59 18:59 Intake Total 270 540 330 Balance 270 540 330 Weight 106.5 kg Intake: Oral 270 540 330 Other: Voiding Method Diaper Diaper Diaper # Voids 1 3 # Bowel Movements 1 2 - Labs CBC & Chem 7: 07/06/24 02:41 07/02/24 06:28 Labs: Abnormal Lab Results - Last 24 Hours (Table) 07/05/24 07/05/24 07/05/24 Range/Units 12:18 16:52 21:02 RBC (4.10-5.20) X 10*6/uL Hgb (12.0-15.0) g/dL Hct (37.2-46.3) % MCHC (32.0-37.0) g/dL RDW (11.5-14.5) % POC Glucose (mg/dL) 205 H 201 H 216 H (70-110) mg/dL 07/06/24 07/06/24 07/06/24 Range/Units 00:38 02:41 06:14 RBC 2.71 L (4.10-5.20) X 10*6/uL Hgb 7.4 L (12.0-15.0) g/dL Hct 24.1 L (37.2-46.3) % MCHC 30.7 L (32.0-37.0) g/dL RDW 15.8 H (11.5-14.5) % POC Glucose (mg/dL) 216 H 192 H (70-110) mg/dL
[2024-07-06 16:50] LABS: Glucose,Whole Blood 195 mg/dL (70-110)
[2024-07-06 20:30] LABS: Glucose,Whole Blood 199 mg/dL (70-110)
[2024-07-07 06:13] LABS: Glucose,Whole Blood 130 mg/dL (70-110)
--- NOTE | 2024-07-07 08:14 | P.PN ---
Subjective Principal diagnosis: This continue rest 78-year-old white female essentially admitted due to the fact that there is bedbug infestation in her house and she is unable to stay there in good health has an underlying history of end-stage renal disease and is bedbound. We are essentially waiting for her house to be fumigated properly for bedbug infestation. Once this is done we will discharge appropriately. Objective - Vital Signs Vital signs: Vital Signs Temp 98.3 F 07/07/24 07:18 Pulse 63 07/07/24 07:18 Resp 17 07/07/24 07:18 BP 123/67 07/07/24 07:18 Pulse Ox 96 07/07/24 07:18 FiO2 Intake & Output 07/06/24 07/07/24 07/07/24 18:59 06:59 18:59 Intake Total 3470 Output Total 2900 Balance 570 Weight 102.5 kg Intake: Oral 570 Hemodialysis 2900 Output: Hemodialysis 400 Hemodialysis Net Amount 2500 Other: Voiding Method Diaper Diaper # Voids 1 1 # Bowel Movements 1 2 - Constitutional General appearance: Present: average body habitus, cooperative - EENT Eyes: Absent: abnormal pupil - Neck Neck: Absent: lymphadenopathy - Respiratory Respiratory: bilateral: diminished - Cardiovascular Rhythm: irregularly irregular Heart sounds: normal: S1, S2 Abnormal Heart Sounds: Absent: S3 Gallop - Gastrointestinal General gastrointestinal: Present: soft. Absent: tenderness - Labs CBC & Chem 7: 07/06/24 02:41 07/02/24 06:28 Labs: Abnormal Lab Results - Last 24 Hours (Table) 07/06/24 07/06/24 07/06/24 Range/Units 02:41 12:01 16:48 RBC 2.71 L (4.10-5.20) X 10*6/uL Hgb 7.4 L (12.0-15.0) g/dL Hct 24.1 L (37.2-46.3) % MCHC 30.7 L (32.0-37.0) g/dL RDW 15.8 H (11.5-14.5) % POC Glucose (mg/dL) 151 H 195 H (70-110) mg/dL 07/06/24 07/07/24 Range/Units 20:27 06:12 RBC (4.10-5.20) X 10*6/uL Hgb (12.0-15.0) g/dL Hct (37.2-46.3) % MCHC (32.0-37.0) g/dL RDW (11.5-14.5) % POC Glucose (mg/dL) 199 H 130 H (70-110) mg/dL Assessment and Plan (1) Missed dialysis Current Visit: Yes Status: Acute Code(s): CJK6281 - SNOMED Code(s): 224434218 (2) Atrial fibrillation Current Visit: No Status: Acute Code(s): I48.91 - UNSPECIFIED ATRIAL FIBRILLATION SNOMED Code(s): 49320565 (3) Cirrhosis of liver with ascites Current Visit: No Status: Acute Code(s): K74.60 - UNSPECIFIED CIRRHOSIS OF LIVER; R18.8 - OTHER ASCITES SNOMED Code(s): 78945876 (4) Diabetes Current Visit: No Status: Acute Code(s): E11.9 - TYPE 2 DIABETES MELLITUS WITHOUT COMPLICATIONS SNOMED Code(s): 58017413 (5) Hyperlipidemia Current Visit: No Status: Acute Code(s): E78.5 - HYPERLIPIDEMIA, UNSPECIFIED SNOMED Code(s): 19345643 Plan: We will go and check CBC and CMP in a.m. Await treatment for bedbug infestation. We will be able to DC once her home is fumigated and cleared from a public health perspective. Appreciate nephrology input. Time with Patient: Less than 30
[2024-07-07 09:09] LABS: HCT 22.1 % (37.2-46.3); HGB 7.1 g/dL (12.0-15.0); MCH 27.6 pg (27.0-32.0); MCHC 32.1 g/dL (32.0-37.0); Mean Platelet Volume 10.5 FL (9.5-12.2); NRBC Per 100 WBC 0 X 10*3/uL (0.00-0.01); Platelet Count 197 X 10*3/uL (140-440); RBC 2.57 X 10*6/uL (4.10-5.20); RDW 15.7 % (11.5-14.5); WBC 6.79 X 10*3/uL (4.50-10.00)
--- NOTE | 2024-07-07 09:55 | P.PN ---
Subjective Progress Note Date: 07/07/24 This is a pleasant 78-year-old female patient of Dr. Guillen with past medical history of atrial fibrillation, tachycardia induced cardiomyopathy, normalization of the LV systolic function and sinus mechanism, hypertension, hyperlipidemia, chronic kidney disease recently started on hemodialysis and diabetes mellitus type 2. Was last seen in our office in October 2022. Presented to the hospital with complaints of missing dialysis due to some transportation issues as well as bedbug infestation at her home. She has been requiring paracentesis as well which has been postponed therefore she is feeling some tightness in her abdomen and chest. We were asked see the patient in consultation for low blood pressure. She is on midodrine. She continues to undergo hemodialysis. Diagnostics -EKG: Sinus rhythm -Chest x-ray: Cardiomegaly without overt fluid overload -Ultrasound-guided paracentesis with 4.6 L of straw-colored fluid removed on 06/21/2024 -Laboratory studies: Hemoglobin 7.5, stable, sodium 131, potassium 4.8, BUN 57.5, creatinine 4.3 -Home cardiac medications: Eliquis 5 mg p.o. twice daily, Lipitor 20 mg p.o. daily, carvedilol 3.125 mg p.o. twice daily, Lasix 80 mg p.o. daily, Entresto 2 4-26 mg p.o. twice daily -Prior stress test: 2012 showing fixed anterior wall defect -Echocardiogram: September 2022 normal EF moderate LVH and mild MR -Cardiac catheterization: April 2019 showing normal coronaries 07/04/2024 Patient was seen and examined resting comfortably in bed. Edema is stable. Breathing is stable. She is anticipating dialysis again on Friday. Being followed closely by nephrology. Blood pressure has been stable. 07/05/2024 Seen and examined at bedside this a.m. Denies any chest pain chest pressure. Lower extremity swelling is present. Permacath in place, rate controlled atrial fibrillation 07/06 Patient is seen and examined. She denies having chest pain, no shortness of breath. She underwent a paracentesis with removal of 5400 mL of clear straw- colored fluid. She is receiving hemodialysis today. Her lower extremity edema is improved. Blood pressure 126/56, heart rate in the 70s, pulse ox 94% on room air. Hemoglobin 7.4. Echocardiogram reveals EF of 55 to 60%. Severe concentric LVH. No obvious LVOT obstruction. Moderate LA dilatation, mild RA dilatation. Right ventricular systolic pressure within normal limits. No significant valvular dysfunction. Aortic root is 3.9 cm. No significant difference from echocardiogram performed in 2021. Recommend hypertrophic cardiomyopathy workup 07/07 Patient seen and examined. She denies chest pain no shortness of breath. Her lower extremity edema is improved. Blood pressure 123/67, heart rate 5574 and pulse ox 96% on room air. No labs available at the time of this dictation. PHYSICAL EXAMINATION: This is a 78-year-old female in no apparent distress at the time of my examination. VITAL SIGNS: Reviewed. HEENT: Head is atraumatic, normocephalic. Pupils are equal, round. Sclerae anicteric. Conjunctivae are clear. Mucous membranes of the mouth are moist. Neck is supple. There is no elevated jugular venous pressure. No carotid bruit is heard. CHEST EXAMINATION: Diminished air entry bilaterally. No wheezes rales or rhonchi. Respirations even and nonlabored. HEART EXAMINATION: Heart irregular, positive S1 and S2. No S3. No S4. No clicks, rubs or murmurs. ABDOMEN: Soft, nontender. Bowel sounds are heard. No organomegaly noted. EXTREMITIES: 2+ peripheral pulses with evidence of 1+ peripheral edema and no calf tenderness noted. NEUROLOGIC EXAMINATION: Patient is awake, alert and oriented x3. Assessment: 1. Nonischemic cardiomyopathy 2. Persistent atrial fibrillation, currently maintaining sinus mechanism 3. Hypotension 4. End-stage renal failure on hemodialysis Plan: Continue Eliquis to 2.5 mg twice daily, reduced dose due to age and kidney function Continue metoprolol succinate 25 mg daily, Use midodrine only as needed Continue Entresto for now. If blood pressure is low, consider reducing the dose to half although blood pressure is currently stable. Recommend hypertrophic cardiomyopathy workup as an outpatient Cardiology will sign off this case and follow on an as-needed basis. Please reconsult for any new concerns. Patient may follow-up in the office in one to [address] Guillen. Nurse practitioner note has been reviewed, I agree with documented findings and plan of care. Patient was seen and examined. Objective - Vital Signs Vital signs: Vital Signs Temp 98.3 F 07/07/24 07:18 Pulse 63 07/07/24 07:18 Resp 17 07/07/24 07:18 BP 123/67 07/07/24 07:18 Pulse Ox 96 07/07/24 07:18 FiO2 Intake & Output 07/06/24 07/07/24 07/07/24 18:59 06:59 18:59 Intake Total 3470 Output Total 2900 Balance 570 Weight 102.5 kg Intake: Oral 570 Hemodialysis 2900 Output: Hemodialysis 400 Hemodialysis Net Amount 2500 Other: Voiding Method Diaper Diaper Diaper # Voids 1 1 # Bowel Movements 1 2 - Labs CBC & Chem 7: 07/07/24 02:34 07/02/24 06:28 Labs: Abnormal Lab Results - Last 24 Hours (Table) 07/06/24 07/06/24 07/06/24 Range/Units 12:01 16:48 20:27 POC Glucose (mg/dL) 151 H 195 H 199 H (70-110) mg/dL 07/07/24 Range/Units 06:12 POC Glucose (mg/dL) 130 H (70-110) mg/dL
[2024-07-07 11:40] LABS: Glucose,Whole Blood 117 mg/dL (70-110)
[2024-07-07 16:50] LABS: Glucose,Whole Blood 123 mg/dL (70-110)
[2024-07-07 20:33] LABS: Glucose,Whole Blood 166 mg/dL (70-110)
--- NOTE | 2024-07-07 22:58 | P.PN ---
Subjective Patient is seen for follow-up for end-stage renal disease. Scheduled for hemodialysis in a.m. Tolerating treatment well No significant complaints. Blood pressure is not low. Objective - Vital Signs Vital signs: Vital Signs Temp 98.2 F 07/07/24 18:55 Pulse 76 07/07/24 18:55 Resp 18 07/07/24 18:55 BP 125/69 07/07/24 18:55 Pulse Ox 98 07/07/24 18:55 FiO2 Intake & Output 07/07/24 07/07/24 07/08/24 06:59 18:59 06:59 Intake Total 770 Balance 770 Weight 102.5 kg Intake: Oral 770 Other: Voiding Method Diaper Diaper Diaper # Voids 1 1 # Bowel Movements 2 1 - Exam Patient is awake, comfortable, no acute distress Examination of the heart S1 and S2 Examination of the lungs bilateral breath sounds are heard Abdomen soft distended nontender Examination of lower extremities shows 2+ edema, chronic skin changes noted. - Labs CBC & Chem 7: 07/07/24 02:34 07/02/24 06:28 Labs: Abnormal Lab Results - Last 24 Hours (Table) 07/07/24 07/07/24 07/07/24 Range/Units 02:34 06:12 11:39 RBC 2.57 L (4.10-5.20) X 10*6/uL Hgb 7.1 L (12.0-15.0) g/dL Hct 22.1 L (37.2-46.3) % RDW 15.7 H (11.5-14.5) % POC Glucose (mg/dL) 130 H 117 H (70-110) mg/dL 07/07/24 07/07/24 Range/Units 16:49 20:32 RBC (4.10-5.20) X 10*6/uL Hgb (12.0-15.0) g/dL Hct (37.2-46.3) % RDW (11.5-14.5) % POC Glucose (mg/dL) 123 H 166 H (70-110) mg/dL Assessment and Plan Assessment: 1. End-stage renal disease maintained on hemodialysis on Friday schedule. Started on hemodialysis in April 2024. Has permacath. 2. Hyperkalemia secondary to missed hemodialysis. Also on Entresto. 3. History of liver cirrhosis. Gets regular paracentesis 4. Diabetes mellitus. 5. Anemia of chronic kidney disease. ferritin 106, iron sat 9.1% 6. Hypervolemic hyponatremia, improved with dialysis 7. Anemia with no active bleeding noted status post packed RBCs transfusion. Started on aranesp Plan: Hemodialysis in a.m. increase goal to about 2.5 L Continue Aranesp
[2024-07-08] MEDS: ACETAMINOPHEN TAB 325 MG TAB PO PRN (04:16)
[2024-07-08 06:12] LABS: Glucose,Whole Blood 125 mg/dL (70-110)
[2024-07-08 06:16] LABS: ALT 18 U/L (4-34); AST 31 U/L (14-36); African American GFR (CKD) 10 (>60 ml/min/1.73 sqM); Albumin 2.3 g/dL (3.5-5.0); Albumin/Globulin Ratio 0.9; Alkaline Phosphatase 89 U/L (38-126); Anion Gap 8 mmol/L; Blood Urea Nitrogen 53 mg/dL (7-17); Calcium 8.2 mg/dL (8.4-10.2); Carbon Dioxide 24 mmol/L (22-30); Chloride 93 mmol/L (98-107); Globulin 2.7 g/dL; Glucose 98 mg/dL (74-99); Non-African American GFR(CKD) 9 (>60 ml/min/1.73 sqM); Potassium 3.9 mmol/L (3.5-5.1); Sodium 125 mmol/L (137-145); Total Bilirubin 0.5 mg/dL (0.2-1.3)
--- NOTE | 2024-07-08 08:44 | P.PN ---
Subjective Progress Note Date: 07/08/24 This is an 78-year-old female who was admitted after missing 3 dialysis sessions due to a bedbug infestation in her house. Patient was unable to find transportation to dialysis due to the bedbugs in her home. Patient seen this morning sitting up in bed resting comfortably. She is tolerating diet. Vitals are stable. She did have paracentesis yesterday with 4.6 L of fluid removed. Case management is working on placement for patient. 06/24/2024 Patient seen and evaluated this morning sitting up in bed resting comfortably. She is scheduled to have dialysis today. Hemoglobin did drop on Friday and patient received another unit of packed red blood cells. She was started on Aranesp by nephrology. Patient states there are 2 quotes for her home to be fumigated for bedbugs and are awaiting a decision. Labs not back for today at time of dictation. Vitals are stable. Patient is tolerating diet. 06/28/2024 Patient seen and evaluated sitting up in bed resting comfortably this morning. Her vitals and lab work have been stable. Still awaiting her home to be fumigated for bedbugs. She is awaiting the company assisting her to pick which of the 2 quotes they would like. 06/29/2024 Patient seen and evaluated sitting up in bed eating breakfast this morning. She is scheduled for hemodialysis today. Still waiting for her home to be fumigated for bedbugs. 07/01/2024 Patient seen and evaluated sitting up in bed this morning resting comfortably. We are still waiting for home to be fumigated for bedbugs. Reportedly the quote is being decided on. 07/05/2024 Patient seen this morning sitting up in bed resting comfortably. Paracentesis is planned for today. Patient still waiting for home to be fumigated for bedbugs. Patient did have a positive stool for occult blood. Her hemoglobin has remained stable. Awaiting recheck for today. 07/06/2024 Patient seen and evaluated this morning sitting up in bed resting comfortably. She underwent paracentesis yesterday. Her hemoglobin continues to remain stable. Patient still waiting for home to be fumigated for bedbugs. 07/08/2024 Patient seen and evaluated his morning sitting up in bed resting comfortably. Still awaiting house to be fumigated for bed bugs, reportedly company has been chosen and are awaiting scheduling. Hemoglobin remains stable, labs for today not back at time of dictation. Dialysis scheduled for today. Objective - Vital Signs Vital signs: Vital Signs Temp 97.9 F 07/08/24 07:15 Pulse 59 L 07/08/24 07:15 Resp 15 07/08/24 07:15 BP 105/66 07/08/24 07:15 Pulse Ox 97 07/08/24 07:15 FiO2 Intake & Output 07/07/24 07/08/24 07/08/24 18:59 06:59 18:59 Intake Total 770 240 Balance 770 240 Weight 104.5 kg Intake: Oral 770 240 Other: Voiding Method Diaper Diaper # Voids 1 # Bowel Movements 1 - Constitutional General appearance: Present: cooperative, no acute distress - EENT Eyes: Present: PERRLA - Neck Neck: Present: normal ROM. Absent: lymphadenopathy, rigidity - Respiratory Respiratory: bilateral: diminished - Cardiovascular Heart sounds: normal: S1, S2 - Gastrointestinal General gastrointestinal: Present: soft. Absent: tenderness - Integumentary Integumentary: Present: normal, normal turgor - Musculoskeletal Musculoskeletal: Present: generalized weakness - Psychiatric Psychiatric: Present: A&O x's 3 - Labs CBC & Chem 7: 07/07/24 02:34 07/08/24 05:12 Labs: Abnormal Lab Results - Last 24 Hours (Table) 07/07/24 07/07/24 07/07/24 Range/Units 02:34 11:39 16:49 RBC 2.57 L (4.10-5.20) X 10*6/uL Hgb 7.1 L (12.0-15.0) g/dL Hct 22.1 L (37.2-46.3) % RDW 15.7 H (11.5-14.5) % Sodium (137-145) mmol/L Chloride (98-107) mmol/L BUN (7-17) mg/dL Creatinine (0.52-1.04) mg/dL POC Glucose (mg/dL) 117 H 123 H (70-110) mg/dL Calcium (8.4-10.2) mg/dL Total Protein (6.3-8.2) g/dL Albumin (3.5-5.0) g/dL 04/07/08/24 07/08/24 Range/Units 20:32 05:12 06:11 RBC (4.10-5.20) X 10*6/uL Hgb (12.0-15.0) g/dL Hct (37.2-46.3) % RDW (11.5-14.5) % Sodium 125 L (137-145) mmol/L Chloride 93 L (98-107) mmol/L BUN 53 H (7-17) mg/dL Creatinine 4.48 H (0.52-1.04) mg/dL POC Glucose (mg/dL) 166 H 125 H (70-110) mg/dL Calcium 8.2 L (8.4-10.2) mg/dL Total Protein 5.0 L (6.3-8.2) g/dL Albumin 2.3 L (3.5-5.0) g/dL Assessment and Plan (1) Infestation by bed bug Current Visit: Yes Status: Acute Code(s): B88.8 - OTHER SPECIFIED INFESTATIONS SNOMED Code(s): 69284401 (2) Missed dialysis Current Visit: Yes Status: Acute Code(s): SOQ0594 - SNOMED Code(s): 448985747 (3) Ascites Current Visit: No Status: Acute Code(s): R18.8 - OTHER ASCITES SNOMED Code(s): 042943464 (4) Atrial fibrillation Current Visit: No Status: Acute Code(s): I48.91 - UNSPECIFIED ATRIAL FIBRILLATION SNOMED Code(s): 61694613 (5) CAD (coronary artery disease) Current Visit: No Status: Acute Code(s): I25.10 - ATHSCL HEART DISEASE OF [place] CORONARY ARTERY W/O ANG PCTRS SNOMED Code(s): 17360361 (6) Diabetes Current Visit: No Status: Acute Code(s): E11.9 - TYPE 2 DIABETES MELLITUS WITHOUT COMPLICATIONS SNOMED Code(s): 39787654 (7) CKD (chronic kidney disease) Current Visit: No Status: Acute Code(s): N18.9 - CHRONIC KIDNEY DISEASE, UNSPECIFIED SNOMED Code(s): 404028459 (8) Hyperlipidemia Current Visit: No Status: Acute Code(s): E78.5 - HYPERLIPIDEMIA, UNSPECIFIED SNOMED Code(s): 11981758 (9) Hypertension Current Visit: No Status: Acute Code(s): I10 - ESSENTIAL (PRIMARY) HYPER TENSION SNOMED Code(s): 87321144 Plan: Await CBC results from today. Recheck CBC and CMP in the morning. Awaiting patient's home to be fumigated for bedbugs. Patient seen and evaluated by nurse practitioner, physician in agreement with plan.
[2024-07-08 09:08] LABS: HCT 23.9 % (37.2-46.3); HGB 7.4 g/dL (12.0-15.0); MCH 26.7 pg (27.0-32.0); MCV 86.3 FL (80.0-97.0); Mean Platelet Volume 10.3 FL (9.5-12.2); NRBC Per 100 WBC 0 X 10*3/uL (0.00-0.01); Platelet Count 266 X 10*3/uL (140-440); RBC 2.77 X 10*6/uL (4.10-5.20); RDW 15.6 % (11.5-14.5)
[2024-07-08 11:26] LABS: Glucose,Whole Blood 197 mg/dL (70-110)
--- NOTE | 2024-07-08 12:28 | P.PN ---
Subjective Patient is seen for follow-up for end-stage renal disease. Seen on hemodialysis Tolerating treatment well No significant complaints. Blood pressure is not low. Objective - Vital Signs Vital signs: Vital Signs Temp 97.9 F 07/08/24 07:15 Pulse 59 L 07/08/24 07:15 Resp 15 07/08/24 07:15 BP 105/66 07/08/24 07:15 Pulse Ox 97 07/08/24 07:15 FiO2 Intake & Output 07/07/24 07/08/24 07/08/24 18:59 06:59 18:59 Intake Total 770 240 Balance 770 240 Weight 104.5 kg Intake: Oral 770 240 Other: Voiding Method Diaper Diaper Diaper # Voids 1 # Bowel Movements 1 - Exam Patient is awake, comfortable, no acute distress Examination of the heart S1 and S2 Examination of the lungs bilateral breath sounds are heard Abdomen soft distended nontender Examination of lower extremities shows 1+ edema, chronic skin changes noted. - Labs CBC & Chem 7: 07/08/24 05:16 07/08/24 05:12 Labs: Abnormal Lab Results - Last 24 Hours (Table) 07/07/24 07/07/24 07/08/24 Range/Units 16:49 20:32 05:12 RBC (4.10-5.20) X 10*6/uL Hgb (12.0-15.0) g/dL Hct (37.2-46.3) % MCH (27.0-32.0) pg MCHC (32.0-37.0) g/dL RDW (11.5-14.5) % Sodium 125 L (137-145) mmol/L Chloride 93 L (98-107) mmol/L BUN 53 H (7-17) mg/dL Creatinine 4.48 H (0.52-1.04) mg/dL POC Glucose (mg/dL) 123 H 166 H (70-110) mg/dL Calcium 8.2 L (8.4-10.2) mg/dL Total Protein 5.0 L (6.3-8.2) g/dL Albumin 2.3 L (3.5-5.0) g/dL 07/08/24 07/08/24 07/08/24 Range/Units 05:16 06:11 11:24 RBC 2.77 L (4.10-5.20) X 10*6/uL Hgb 7.4 L (12.0-15.0) g/dL Hct 23.9 L (37.2-46.3) % MCH 26.7 L (27.0-32.0) pg MCHC 31.0 L (32.0-37.0) g/dL RDW 15.6 H (11.5-14.5) % Sodium (137-145) mmol/L Chloride (98-107) mmol/L BUN (7-17) mg/dL Creatinine (0.52-1.04) mg/dL POC Glucose (mg/dL) 125 H 197 H (70-110) mg/dL Calcium (8.4-10.2) mg/dL Total Protein (6.3-8.2) g/dL Albumin (3.5-5.0) g/dL Assessment and Plan Assessment: 1. End-stage renal disease maintained on hemodialysis on Friday schedule. Started on hemodialysis in April 2024. Has permacath. 2. Hyperkalemia secondary to missed hemodialysis. Also on Entresto. 3. History of liver cirrhosis. Gets regular paracentesis 4. Diabetes mellitus. 5. Anemia of chronic kidney disease. ferritin 106, iron sat 9.1% 6. Hypervolemic hyponatremia, improved with dialysis 7. Anemia with no active bleeding noted status post packed RBCs transfusion. Started on aranesp Plan: Hemodialysis in a.m. increase goal to about 2.5 L Continue Aranesp
[2024-07-08 16:05] LABS: Glucose,Whole Blood 231 mg/dL (70-110)
[2024-07-08 20:39] LABS: Glucose,Whole Blood 240 mg/dL (70-110)
[2024-07-08] MEDS: traMADol 50 MG TAB PO PRN (23:30)
[2024-07-09 06:13] LABS: Glucose,Whole Blood 118 mg/dL (70-110)
[2024-07-09 08:26] LABS: ALT 22 U/L (8-44); AST 36 U/L (13-35); Albumin 2.4 g/dL (3.8-4.9); Alkaline Phosphatase 87 U/L (41-126); BUN/Creat Ratio 10.22 Ratio (12.00-20.00); Blood Urea Nitrogen 40.9 mg/dL (9.0-27.0); Calcium 7.7 mg/dL (8.7-10.3); Carbon Dioxide 23.7 mmol/L (21.6-31.8); Chloride 97 mmol/L (96-109); Globulin 2.4 g/dL (1.6-3.3); Glucose 110 mg/dL (70-110); Sodium 131 mmol/L (135-145); Total Bilirubin 0.2 mg/dL (0.3-1.2); Total Protein 4.8 g/dL (6.2-8.2)
[2024-07-09 08:44] LABS: HCT 22.7 % (37.2-46.3); MCH 27.1 pg (27.0-32.0); MCHC 30.8 g/dL (32.0-37.0); Mean Platelet Volume 9.7 FL (9.5-12.2); NRBC Per 100 WBC 0 X 10*3/uL (0.00-0.01); Platelet Count 197 X 10*3/uL (140-440); RBC 2.58 X 10*6/uL (4.10-5.20); RDW 15.7 % (11.5-14.5); WBC 6.65 X 10*3/uL (4.50-10.00)
[2024-07-09 11:31] LABS: Glucose,Whole Blood 191 mg/dL (70-110)
[2024-07-09 15:13] VITALS: BMI 42.5
[2024-07-09 16:38] LABS: Glucose,Whole Blood 173 mg/dL (70-110)
--- NOTE | 2024-07-09 18:21 | P.PN ---
Subjective Patient is seen for follow-up for end-stage renal disease. Scheduled for hemodialysis in a.m. Tolerating treatment well with no episodes of hypotension. No significant complaints. Objective - Vital Signs Vital signs: Vital Signs Temp 98.1 F 07/09/24 14:05 Pulse 66 07/09/24 14:05 Resp 16 07/09/24 14:05 BP 103/56 07/09/24 14:05 Pulse Ox 95 07/09/24 14:05 FiO2 Intake & Output 07/08/24 07/09/24 07/09/24 18:59 06:59 18:59 Output Total 700 350 Balance -700 -350 Weight 105.5 kg 105.5 kg Output: Other 700 350 Other: Voiding Method Diaper Diaper # Voids 2 1 1 # Bowel Movements 1 - Exam Patient is awake, comfortable, no acute distress Examination of the heart S1 and S2 Examination of the lungs bilateral breath sounds are heard Abdomen soft distended nontender Examination of lower extremities shows 1+ edema, chronic skin changes noted. - Labs CBC & Chem 7: 07/09/24 05:11 07/09/24 05:11 Labs: Abnormal Lab Results - Last 24 Hours (Table) 07/08/24 07/09/24 07/09/24 Range/Units 20:38 05:11 05:11 RBC 2.58 L (4.10-5.20) X 10*6/uL Hgb 7.0 L (12.0-15.0) g/dL Hct 22.7 L (37.2-46.3) % MCHC 30.8 L (32.0-37.0) g/dL RDW 15.7 H (11.5-14.5) % Sodium 131 L (135-145) mmol/L BUN 40.9 H (9.0-27.0) mg/dL Creatinine 4.0 H (0.6-1.5) mg/dL Est GFR (CKD-EPI) 11 L (>=60) BUN/Creatinine Ratio 10.22 L (12.00-20.00) Ratio POC Glucose (mg/dL) 240 H (70-110) mg/dL Calcium 7.7 L (8.7-10.3) mg/dL Total Bilirubin 0.2 L (0.3-1.2) mg/dL AST 36 H (13-35) U/L Total Protein 4.8 L (6.2-8.2) g/dL Albumin 2.4 L (3.8-4.9) g/dL Albumin/Globulin Ratio 1.00 L (1.60-3.17) Ratio 07/09/24 07/09/24 07/09/24 Range/Units 06:12 11:30 16:36 RBC (4.10-5.20) X 10*6/uL Hgb (12.0-15.0) g/dL Hct (37.2-46.3) % MCHC (32.0-37.0) g/dL RDW (11.5-14.5) % Sodium (135-145) mmol/L BUN (9.0-27.0) mg/dL Creatinine (0.6-1.5) mg/dL Est GFR (CKD-EPI) (>=60) BUN/Creatinine Ratio (12.00-20.00) Ratio POC Glucose (mg/dL) 118 H 191 H 173 H (70-110) mg/dL Calcium (8.7-10.3) mg/dL Total Bilirubin (0.3-1.2) mg/dL AST (13-35) U/L Total Protein (6.2-8.2) g/dL Albumin (3.8-4.9) g/dL Albumin/Globulin Ratio (1.60-3.17) Ratio Assessment and Plan Assessment: 1. End-stage renal disease maintained on hemodialysis on Friday schedule. Started on hemodialysis in April 2024. Has permacath. 2. Hyperkalemia secondary to missed hemodialysis. Also on Entresto. 3. History of liver cirrhosis. Gets regular paracentesis 4. Diabetes mellitus. 5. Anemia of chronic kidney disease and iron deficiency 6. Hypervolemic hyponatremia, improved with dialysis 7. Anemia with no active bleeding noted status post packed RBCs transfusion. Started on aranesp Plan: Hemodialysis in a.m. increase goal to about 2.5 L Add IV iron Continue Aranesp
[2024-07-09 20:34] LABS: Glucose,Whole Blood 158 mg/dL (70-110)
--- NOTE | 2024-07-09 23:02 | P.PN ---
Subjective Progress Note Date: 07/09/24 Patient is evaluated today resting in bed on the medical floor. Patient has no acute complaints currently. Pending fumigation and eradication of the bedbugs before she can return home as EMS provides transportation to hemodialysis and the frequent paracentesis. They will not provide transport until the all clear has been provided for the current infestation. She has been denied at multiple rehab facilities. Review of Systems Constitutional: Denied any fatigue denied any fever. Cardio vascular: denied any chest pain, palpitations Gastrointestinal: denied any nausea, vomiting, Reports loose stools and abdominal pain Pulmonary: Denied any shortness of breath cough Neurologic denied any new focal deficits All inpatient medications were reviewed and appropriate changes in these medications as dictated in the interval history and assessment and plan. PHYSICAL EXAMINATION: GENERAL: The patient is alert and oriented x2-3, not in any acute distress. Well developed, well nourished. Obese HEENT: Pupils are round and equally reacting to light. EOMI. No scleral icterus. No conjunctival pallor. Normocephalic, atraumatic. No pharyngeal erythema. No thyromegaly. CARDIOVASCULAR: S1 and S2 present. No murmurs, rubs, or gallops. PULMONARY: Chest is clear to auscultation, no wheezing or crackles. ABDOMEN: Soft, mildly tender, nondistended, normoactive bowel sounds. No palpable organomegaly. MUSCULOSKELETAL: No joint swelling or deformity. EXTREMITIES: No cyanosis, clubbing, or pedal edema. NEUROLOGICAL: Gross neurological examination did not reveal any focal deficits. SKIN: No rashes. Assessment and Plan Bed bug infestation End stage renal disease on , , Friday schedule Ascites from liver cirrhosis requiring frequent paracentesis Atrial fibrillation Anemia of chronic disease Coronary artery disease Diabetes Mellitus type 2 Hyperlipidemia Hypertension Hx of stroke DVT Plan Pending fumigation for the bed bugs Hemodialysis per nephrology Monitor hemoglobin and transfuse for hgb less than 7 Podiatry consult for routine nail trimming The impression and plan of care has been dictated by Mercedes Bryan, Nurse Practitioner as directed. Dr. Orlando MD I have performed a history and physical examination and medical decision making of this patient, discussed the same with the dictator, and agree with the dictators assessment and plan as written, documented as a scribe. Based on total visit time, I have performed more than 50% of this visit. Objective - Vital Signs Vital signs: Vital Signs Temp 98.1 F 07/09/24 20:17 Pulse 75 07/09/24 20:17 Resp 17 07/09/24 20:17 BP 108/58 07/09/24 20:17 Pulse Ox 98 07/09/24 20:17 FiO2 Intake & Output 07/09/24 07/09/24 07/10/24 06:59 18:59 06:59 Output Total 350 Balance -350 Weight 105.5 kg 105.5 kg Output: Other 350 Other: Voiding Method Diaper # Voids 1 1 # Bowel Movements 1 - Labs CBC & Chem 7: 07/09/24 05:11 07/09/24 05:11 Labs: Abnormal Lab Results - Last 24 Hours (Table) 07/09/24 07/09/24 07/09/24 Range/Units 05:11 05:11 06:12 RBC 2.58 L (4.10-5.20) X 10*6/uL Hgb 7.0 L (12.0-15.0) g/dL Hct 22.7 L (37.2-46.3) % MCHC 30.8 L (32.0-37.0) g/dL RDW 15.7 H (11.5-14.5) % Sodium 131 L (135-145) mmol/L BUN 40.9 H (9.0-27.0) mg/dL Creatinine 4.0 H (0.6-1.5) mg/dL Est GFR (CKD-EPI) 11 L (>=60) BUN/Creatinine Ratio 10.22 L (12.00-20.00) Ratio POC Glucose (mg/dL) 118 H (70-110) mg/dL Calcium 7.7 L (8.7-10.3) mg/dL Total Bilirubin 0.2 L (0.3-1.2) mg/dL AST 36 H (13-35) U/L Total Protein 4.8 L (6.2-8.2) g/dL Albumin 2.4 L (3.8-4.9) g/dL Albumin/Globulin Ratio 1.00 L (1.60-3.17) Ratio 07/09/24 07/09/24 07/09/24 Range/Units 11:30 16:36 20:33 RBC (4.10-5.20) X 10*6/uL Hgb (12.0-15.0) g/dL Hct (37.2-46.3) % MCHC (32.0-37.0) g/dL RDW (11.5-14.5) % Sodium (135-145) mmol/L BUN (9.0-27.0) mg/dL Creatinine (0.6-1.5) mg/dL Est GFR (CKD-EPI) (>=60) BUN/Creatinine Ratio (12.00-20.00) Ratio POC Glucose (mg/dL) 191 H 173 H 158 H (70-110) mg/dL Calcium (8.7-10.3) mg/dL Total Bilirubin (0.3-1.2) mg/dL AST (13-35) U/L Total Protein (6.2-8.2) g/dL Albumin (3.8-4.9) g/dL Albumin/Globulin Ratio (1.60-3.17) Ratio Assessment and Plan Time with Patient: Less than 30
[2024-07-10 06:40] LABS: Glucose,Whole Blood 157 mg/dL (70-110)
[2024-07-10 10:04] LABS: BUN/Creat Ratio 11.33 Ratio (12.00-20.00); Blood Urea Nitrogen 52.1 mg/dL (9.0-27.0); Chloride 95 mmol/L (96-109); Glucose 132 mg/dL (70-110); Potassium 4.6 mmol/L (3.5-5.5); Sodium 129 mmol/L (135-145)
[2024-07-10 10:05] LABS: Calcium 7.9 mg/dL (8.7-10.3); Carbon Dioxide 22.1 mmol/L (21.6-31.8)
--- NOTE | 2024-07-10 10:45 | P.PN ---
Subjective Patient is seen in follow-up for end-stage renal disease. Resting in bed. No active complaints. Scheduled for dialysis today. Vital signs are stable. General: No acute distress. HEENT: Head exam is unremarkable. LUNGS: No audible rhonchi or wheezes. HEART: Rate and Rhythm are regular. ABDOMEN: Nontender. EXTREMITITES: 1+ edema. Objective - Vital Signs Vital signs: Vital Signs Temp 98.2 F 07/10/24 07:06 Pulse 64 07/10/24 07:06 Resp 16 07/10/24 07:06 BP 118/66 07/10/24 07:06 Pulse Ox 97 07/10/24 07:06 FiO2 Intake & Output 07/09/24 07/10/24 07/10/24 18:59 06:59 18:59 Intake Total 180 Output Total 100 Balance 180 -100 Weight 105.5 kg 103.5 kg Intake: Oral 180 Output: Other 100 Other: Voiding Method Diaper # Voids 1 2 # Bowel Movements 1 1 - Labs CBC & Chem 7: 07/09/24 05:11 07/10/24 04:13 Labs: Abnormal Lab Results - Last 24 Hours (Table) 07/09/24 07/09/24 07/09/24 Range/Units 11:30 16:36 20:33 Sodium (135-145) mmol/L Chloride (96-109) mmol/L BUN (9.0-27.0) mg/dL Creatinine (0.6-1.5) mg/dL Est GFR (CKD-EPI) (>=60) BUN/Creatinine Ratio (12.00-20.00) Ratio Glucose (70-110) mg/dL POC Glucose (mg/dL) 191 H 173 H 158 H (70-110) mg/dL Calcium (8.7-10.3) mg/dL 07/10/24 07/10/24 Range/Units 04:13 06:39 Sodium 129 L (135-145) mmol/L Chloride 95 L (96-109) mmol/L BUN 52.1 H (9.0-27.0) mg/dL Creatinine 4.6 H (0.6-1.5) mg/dL Est GFR (CKD-EPI) 9 L (>=60) BUN/Creatinine Ratio 11.33 L (12.00-20.00) Ratio Glucose 132 H (70-110) mg/dL POC Glucose (mg/dL) 157 H (70-110) mg/dL Calcium 7.9 L (8.7-10.3) mg/dL Assessment and Plan Plan: Assessment: 1. End-stage renal disease maintained on hemodialysis on Friday schedule. Started on hemodialysis in April 2024. Has permacath. 2. Hyperkalemia secondary to missed hemodialysis. Also on Entresto. Improved. 3. History of liver cirrhosis. Gets regular paracentesis in the next 1 scheduled for Friday. 4. Diabetes mellitus. 5. Anemia of chronic kidney disease. On Aranesp. 6. Hypervolemic hyponatremia. Improved. Plan: Hemodialysis today. Maintain low-salt diet and fluid restriction. Maintain Lasix. Anticipate discharge soon back home.
[2024-07-10 11:34] LABS: Glucose,Whole Blood 144 mg/dL (70-110)
--- NOTE | 2024-07-10 14:14 | P.PN ---
Subjective Progress Note Date: 07/10/24 Interval History: This is an 78-year-old female who was admitted after missing 3 dialysis sessions due to a bedbug infestation in her house. Patient was unable to find transportation to dialysis due to the bedbugs in her home. Patient seen this morning sitting up in bed resting comfortably. She is tolerating diet. Vitals are stable. She did have paracentesis yesterday with 4.6 L of fluid removed. C ase management is working on placement for patient. 06/24/2024 Patient seen and evaluated this morning sitting up in bed resting comfortably. She is scheduled to have dialysis today. Hemoglobin did drop on Friday and patient received another unit of packed red blood cells. She was started on Ar anesp by nephrology. Patient states there are 2 quotes for her home to be fumigated for bedbugs and are awaiting a decision. Labs not back for today at time of dictation. Vitals are stable. Patient is tolerating diet. 06/28/2024 Patient seen and evaluated sitting up in bed resting comfortably this morning. Her vitals and lab work have been stable. Still awaiting her home to be fumigated for bedbugs. She is awaiting the company assisting her to pick which of the 2 quotes they would like. 06/29/2024 Patient seen and evaluated sitting up in bed eating breakfast this morning. She is scheduled for hemodialysis today. Still waiting for her home to be fumigated for bedbugs. 07/01/2024 Patient seen and evaluated sitting up in bed this morning resting comfortably. We are still waiting for home to be fumigated for bedbugs. Reportedly the quote is being decided on. 07/05/2024 Patient seen this morning sitting up in bed resting comfortably. Paracentesis is planned for today. Patient still waiting for home to be fumigated for bedbugs. Patient did have a positive stool for occult blood. Her hemoglobin has remained stable. Awaiting recheck for today. 07/06/2024 Patient seen and evaluated this morning sitting up in bed resting comfortably. She underwent paracentesis yesterday. Her hemoglobin continues to remain stable. Patient still waiting for home to be fumigated for bedbugs. 07/08/2024 Patient seen and evaluated his morning sitting up in bed resting comfortably. S till awaiting house to be fumigated for bed bugs, reportedly company has been chosen and are awaiting scheduling. Hemoglobin remains stable, labs for today not back at time of dictation. Dialysis scheduled for today. 07/09/24 Patient is evaluated today resting in bed on the medical floor. Patient has no acute complaints currently. Pending fumigation and eradication of the bedbugs before she can return home as EMS provides transportation to hemodialysis and the frequent paracentesis. They will not provide transport until the all clear has been provided for the current infestation. She has been denied at multiple rehab facilities. 07/10/24 Patient was seen and examined today. No issues overnight. Patient afebrile, heart rate 65, respiratory rate 16, blood pressure 101/63, saturating 98% on room air. Sodium 129 potassium 4.6 BUN 52, creatinine 4.6. Nephrology following, patient underwent maintenance hemodialysis today. Pending placement. Assessment and plan: Bed bug infestation End stage renal disease on , , Friday schedule Ascites from liver cirrhosis requiring frequent paracentesis Atrial fibrillation--on Eliquis Anemia of chronic disease Coronary artery disease Diabetes Mellitus type 2 Hyperlipidemia Hypertension Hx of stroke DVT -on Eliquis- Plan Pending fumigation for the bed bugs, pending placement Hemodialysis per nephrology, continue Lasix. Monitor hemoglobin and transfuse for hgb less than 7 Podiatry consult for routine nail trimming Continue home meds. As needed midodrine. DVT prophylaxis: Anticoagulated with Eliquis Monitor vital signs and labs Labs and medication were reviewed. Continue same treatment. Further recommendations as per clinical course of the patient PHYSICAL EXAMINATION: GENERAL: The patient is A&O x3, NAD HEENT: EOMI, Sclerae anicteric, Moist Mucous membranes Neck: Supple, Non tender, No JVD PULMONARY: Equal breath souds B/L, No wheezing, No crackles. CARDIOVASCULAR: S1, S2 present. No murmurs, rubs, or gallops. ABDOMEN: Soft, nontender, nondistended, normoactive bowel sounds. No guarding or rebound tenderness. MUSCULOSKELETAL: No edema, No cyanosis. No clubbing. Normal ROM. Intact peripheral pulses. NEUROLOGICAL: CN 2-12 grossly intact. No FND Skin: No Rash REVIEW OF SYSTEMS: CONSTITUTIONAL: No fever or chills. CARDIOVASCULAR: No chest pain, palpitations or syncope. PULMONARY: No shortness of breath, no cough, sore throat. GASTROINTESTINAL: No nausea, vomiting, diarrhea, abdominal pain. : No Dysuria, urgency, frequency. Extremities: No edema. NEUROLOGICAL: No headaches, no weakness, or numbness Dictation was produced using [employer] dictation software. please excuse any gramm atical, word or spelling errors. Objective - Vital Signs Vital signs: Vital Signs Temp 98.2 F 07/10/24 13:27 Pulse 65 07/10/24 13:27 Resp 16 07/10/24 13:27 BP 101/63 07/10/24 13:27 Pulse Ox 98 07/10/24 13:27 FiO2 Intake & Output 07/09/24 07/10/24 07/10/24 18:59 06:59 18:59 Intake Total 180 Output Total 100 Balance 180 -100 Weight 105.5 kg 103.5 kg Intake: Oral 180 Output: Other 100 Other: Voiding Method Diaper # Voids 1 2 # Bowel Movements 1 1 - Labs CBC & Chem 7: 07/09/24 05:11 07/10/24 04:13 Labs: Abnormal Lab Results - Last 24 Hours (Table) 07/09/24 07/09/24 07/10/24 Range/Units 16:36 20:33 04:13 Sodium 129 L (135-145) mmol/L Chloride 95 L (96-109) mmol/L BUN 52.1 H (9.0-27.0) mg/dL Creatinine 4.6 H (0.6-1.5) mg/dL Est GFR (CKD-EPI) 9 L (>=60) BUN/Creatinine Ratio 11.33 L (12.00-20.00) Ratio Glucose 132 H (70-110) mg/dL POC Glucose (mg/dL) 173 H 158 H (70-110) mg/dL Calcium 7.9 L (8.7-10.3) mg/dL 07/10/24 07/10/24 Range/Units 06:39 11:32 Sodium (135-145) mmol/L Chloride (96-109) mmol/L BUN (9.0-27.0) mg/dL Creatinine (0.6-1.5) mg/dL Est GFR (CKD-EPI) (>=60) BUN/Creatinine Ratio (12.00-20.00) Ratio Glucose (70-110) mg/dL POC Glucose (mg/dL) 157 H 144 H (70-110) mg/dL Calcium (8.7-10.3) mg/dL
[2024-07-10 16:45] LABS: Glucose,Whole Blood 173 mg/dL (70-110)
[2024-07-10 19:06] LABS: Glucose,Whole Blood 156 mg/dL (70-110)
[2024-07-11 06:19] LABS: Glucose,Whole Blood 108 mg/dL (70-110)
[2024-07-11] MEDS ORDERED: METOPROLOL TARTRATE 5 MG/5 ML VIAL IVP PRN (09:54)
[2024-07-11 09:56] LABS: Basophils # (A) 0.05 X 10*3/uL (0.00-0.10); Basophils % (A) 0.8 %; Eosinophils % (A) 9.2 %; HCT 22.4 % (37.2-46.3); HGB 6.8 g/dL (12.0-15.0); Lymphocytes # (A) 1.54 X 10*3/uL (0.90-5.00); Lymphocytes % (A) 23.5 %; MCH 26.4 pg (27.0-32.0); MCHC 30.4 g/dL (32.0-37.0); MCV 86.8 FL (80.0-97.0); Mean Platelet Volume 10.3 FL (9.5-12.2); Monocytes # (A) 0.81 X 10*3/uL (0.20-1.00); Monocytes % (A) 12.4 %; NRBC Per 100 WBC 0 X 10*3/uL (0.00-0.01); Neutrophils # (A) 3.51 X 10*3/uL (1.80-7.70); Neutrophils % (A) 53.5 %; Platelet Count 201 X 10*3/uL (140-440); RBC 2.58 X 10*6/uL (4.10-5.20); RDW 15.9 % (11.5-14.5); WBC 6.55 X 10*3/uL (4.50-10.00)
[2024-07-11 10:18] LABS: BUN/Creat Ratio 9.47 Ratio (12.00-20.00); Blood Urea Nitrogen 32.2 mg/dL (9.0-27.0); Calcium 7.9 mg/dL (8.7-10.3); Carbon Dioxide 23.4 mmol/L (21.6-31.8); Chloride 98 mmol/L (96-109); Glucose 114 mg/dL (70-110); Potassium 3.8 mmol/L (3.5-5.5); Sodium 134 mmol/L (135-145)
--- NOTE | 2024-07-11 11:09 | P.PN ---
Subjective Patient is seen in follow-up for end-stage renal disease. Resting in bed. No problems with dialysis yesterday. [place] palpitations in the chest this morning. Undergoing EKG. Vital signs are stable. General: No acute distress. HEENT: Head exam is unremarkable. LUNGS: No audible rhonchi or wheezes. HEART: Tachycardic. ABDOMEN: Nontender. EXTREMITITES: 1+ edema. Objective - Vital Signs Vital signs: Vital Signs Temp 97.6 F 07/11/24 07:10 Pulse 133 H 07/11/24 09:26 Resp 16 07/11/24 07:10 BP 96/61 07/11/24 10:59 Pulse Ox 99 07/11/24 09:26 FiO2 Intake & Output 07/10/24 07/11/24 07/11/24 18:59 06:59 18:59 Intake Total 400 240 Output Total 3300 Balance -2900 240 Weight 102 kg Intake: Oral 240 Hemodialysis 400 Output: Hemodialysis 1800 Hemodialysis Net Amount 1400 Other 100 Other: Voiding Method Diaper # Voids 4 # Bowel Movements 2 2 - Labs CBC & Chem 7: 07/11/24 03:14 07/11/24 03:14 Labs: Abnormal Lab Results - Last 24 Hours (Table) 07/10/24 07/10/24 07/10/24 Range/Units 11:32 16:43 19:04 RBC (4.10-5.20) X 10*6/uL Hgb (12.0-15.0) g/dL Hct (37.2-46.3) % MCH (27.0-32.0) pg MCHC (32.0-37.0) g/dL RDW (11.5-14.5) % Eosinophils # (0.04-0.35) X 10*3/uL Sodium (135-145) mmol/L Anion Gap (4.00-12.00) mmol/L BUN (9.0-27.0) mg/dL Creatinine (0.6-1.5) mg/dL Est GFR (CKD-EPI) (>=60) BUN/Creatinine Ratio (12.00-20.00) Ratio Glucose (70-110) mg/dL POC Glucose (mg/dL) 144 H 173 H 156 H (70-110) mg/dL Calcium (8.7-10.3) mg/dL 07/11/24 07/11/24 Range/Units 03:14 03:14 RBC 2.58 L (4.10-5.20) X 10*6/uL Hgb 6.8 A* (12.0-15.0) g/dL Hct 22.4 L (37.2-46.3) % MCH 26.4 L (27.0-32.0) pg MCHC 30.4 L (32.0-37.0) g/dL RDW 15.9 H (11.5-14.5) % Eosinophils # 0.60 H (0.04-0.35) X 10*3/uL Sodium 134 L (135-145) mmol/L Anion Gap 12.60 H (4.00-12.00) mmol/L BUN 32.2 H (9.0-27.0) mg/dL Creatinine 3.4 H (0.6-1.5) mg/dL Est GFR (CKD-EPI) 13 L (>=60) BUN/Creatinine Ratio 9.47 L (12.00-20.00) Ratio Glucose 114 H (70-110) mg/dL POC Glucose (mg/dL) (70-110) mg/dL Calcium 7.9 L (8.7-10.3) mg/dL Assessment and Plan Plan: Assessment: 1. End-stage renal disease maintained on hemodialysis on Friday schedule. Started on hemodialysis in April 2024. Has permacath. 2. Hyperkalemia secondary to missed hemodialysis. Also on Entresto. Improved. 3. History of liver cirrhosis. Gets regular paracentesis. 4. Diabetes mellitus. 5. Anemia of chronic kidney disease. On Aranesp. Hemoglobin 6.8 today. 6. Hypervolemic hyponatremia. Improved postdialysis. Plan: Hemodialysis Friday. Maintain low-salt diet and fluid restriction. Maintain Lasix. Scheduled receive a unit of blood today. IV DDAVP x 1 dose today. Discussed with RN. EKG will be done and cardiology will be notified. Patient will be going back home upon discharge.
[2024-07-11 11:30] LABS: Glucose,Whole Blood 196 mg/dL (70-110)
--- NOTE | 2024-07-11 13:14 | P.PN ---
Subjective Interval History: This is an 78-year-old female who was admitted after missing 3 dialysis sessions due to a bedbug infestation in her house. Patient was unable to find transportation to dialysis due to the bedbugs in her home. Patient seen this mo rning sitting up in bed resting comfortably. She is tolerating diet. Vitals are stable. She did have paracentesis yesterday with 4.6 L of fluid removed. Case management is working on placement for patient. 06/24/2024 Patient seen and evaluated this morning sitting up in bed resting comfortably. She is scheduled to have dialysis today. Hemoglobin did drop on Friday and patient received another unit of packed red blood cells. She was started on Aranesp by nephrology. Patient states there are 2 quotes for her home to be fumigated for bedbugs and are awaiting a decision. Labs not back for today at time of dictation. Vitals are stable. Patient is tolerating diet. 06/28/2024 Patient seen and evaluated sitting up in bed resting comfortably this morning. Her vitals and lab work have been stable. Still awaiting her home to be fumigated for bedbugs. She is awaiting the company assisting her to pick which of the 2 quotes they would like. 06/29/2024 Patient seen and evaluated sitting up in bed eating breakfast this morning. She is scheduled for hemodialysis today. Still waiting for her home to be fumigated for bedbugs. 07/01/2024 Patient seen and evaluated sitting up in bed this morning resting comfortably. We are still waiting for home to be fumigated for bedbugs. Reportedly the quote is being decided on. 07/05/2024 Patient seen this morning sitting up in bed resting comfortably. Paracentesis is planned for today. Patient still waiting for home to be fumigated for bedbugs. Patient did have a positive stool for occult blood. Her hemoglobin has remained stable. Awaiting recheck for today. 07/06/2024 Patient seen and evaluated this morning sitting up in bed resting comfortably. She underwent paracentesis yesterday. Her hemoglobin continues to remain st able. Patient still waiting for home to be fumigated for bedbugs. 07/08/2024 Patient seen and evaluated his morning sitting up in bed resting comfortably. Still awaiting house to be fumigated for bed bugs, reportedly company has been chosen and are awaiting scheduling. Hemoglobin remains stable, labs for today not back at time of dictation. Dialysis scheduled for today. 07/09/24 Patient is evaluated today resting in bed on the medical floor. Patient has no acute complaints currently. Pending fumigation and eradication of the bedbugs before she can return home as EMS provides transportation to hemodialysis and the frequent paracentesis. They will not provide transport until the all clear has been provided for the current infestation. She has been denied at multiple rehab facilities. 07/10/24 Patient was seen and examined today. No issues overnight. Patient afebrile, heart rate 65, respiratory rate 16, blood pressure 101/63, saturating 98% on room air. Sodium 129 potassium 4.6 BUN 52, creatinine 4.6. Nephrology following, patient underwent maintenance hemodialysis today. Pending placement. 07/11/24 Patient was seen and examined today. Early in the a.m. patient went into SVT with heart rate in the 130s, later on converted into normal sinus rhythm spontaneously. Reconsulted cardiology. Patient transferred to ICU overflow from 3 S. patient's hemoglobin 6.8 today, 1 unit of packed RBCs ordered. No sign or symptom of active bleed noted. Assessment and plan: Bed bug infestation End stage renal disease on , , Friday schedule Ascites from liver cirrhosis requiring frequent paracentesis Atrial fibrillation--on Eliquis SVT:07/11--reconsulted cardiology. Continue beta-alfonzo. As needed IV Lopressor. Anemia of chronic disease Coronary artery disease Diabetes Mellitus type 2 Hyperlipidemia Hypertension Hx of stroke DVT -on Eliquis- Plan Pending fumigation for the bed bugs, pending placement Hemodialysis per nephrology, continue Lasix. Monitor hemoglobin and transfuse for hgb less than 7 Podiatry consult for routine nail trimming Continue home meds. As needed midodrine. Continue metoprolol, as needed IV Lopressor for A-fib with RVR Reconsulted cardiology DVT prophylaxis: Anticoagulated with Eliquis Monitor vital signs and labs Labs and medication were reviewed. Continue same treatment. Further recommendations as per clinical course of the patient PHYSICAL EXAMINATION: GENERAL: The patient is A&O x3, NAD HEENT: EOMI, Sclerae anicteric, Moist Mucous membranes Neck: Supple, Non tender, No JVD PULMONARY: Equal breath souds B/L, No wheezing, No crackles. CARDIOVASCULAR: S1, S2 present. No murmurs, rubs, or gallops. ABDOMEN: Soft, nontender, nondistended, normoactive bowel sounds. No guarding or rebound tenderness. MUSCULOSKELETAL: No edema, No cyanosis. No clubbing. Normal ROM. Intact peripheral pulses. NEUROLOGICAL: CN 2-12 grossly intact. No FND Skin: No Rash REVIEW OF SYSTEMS: CONSTITUTIONAL: No fever or chills. CARDIOVASCULAR: No chest pain, palpitations or syncope. PULMONARY: No shortness of breath, no cough, sore throat. GASTROINTESTINAL: No nausea, vomiting, diarrhea, abdominal pain. : No Dysuria, urgency, frequency. Extremities: No edema. NEUROLOGICAL: No headaches, no weakness, or numbness Dictation was produced using [employer] dictation software. please excuse any grammatical, word or spelling errors. Objective - Vital Signs Vital signs: Vital Signs Temp 97.6 F 07/11/24 13:01 Pulse 72 07/11/24 13:01 Resp 18 07/11/24 13:01 BP 93/37 07/11/24 13:01 Pulse Ox 96 07/11/24 13:01 FiO2 Intake & Output 07/10/24 07/11/24 07/11/24 18:59 06:59 18:59 Intake Total 400 240 0 Output Total 3300 Balance -2900 240 0 Weight 102 kg Intake: Oral 240 Blood Product 0 Unit 0 Hemodialysis 400 Output: Hemodialysis 1800 Hemodialysis Net Amount 1400 Other 100 Other: Voiding Method Diaper # Voids 4 # Bowel Movements 2 2 - Labs CBC & Chem 7: 07/11/24 03:14 07/11/24 03:14 Labs: Abnormal Lab Results - Last 24 Hours (Table) 07/10/24 07/10/24 07/11/24 Range/Units 16:43 19:04 03:14 RBC 2.58 L (4.10-5.20) X 10*6/uL Hgb 6.8 A* (12.0-15.0) g/dL Hct 22.4 L (37.2-46.3) % MCH 26.4 L (27.0-32.0) pg MCHC 30.4 L (32.0-37.0) g/dL RDW 15.9 H (11.5-14.5) % Eosinophils # 0.60 H (0.04-0.35) X 10*3/uL Sodium (135-145) mmol/L Anion Gap (4.00-12.00) mmol/L BUN (9.0-27.0) mg/dL Creatinine (0.6-1.5) mg/dL Est GFR (CKD-EPI) (>=60) BUN/Creatinine Ratio (12.00-20.00) Ratio Glucose (70-110) mg/dL POC Glucose (mg/dL) 173 H 156 H (70-110) mg/dL Calcium (8.7-10.3) mg/dL Crossmatch 07/11/24 07/11/24 07/11/24 Range/Units 03:14 10:25 11:24 RBC (4.10-5.20) X 10*6/uL Hgb (12.0-15.0) g/dL Hct (37.2-46.3) % MCH (27.0-32.0) pg MCHC (32.0-37.0) g/dL RDW (11.5-14.5) % Eosinophils # (0.04-0.35) X 10*3/uL Sodium 134 L (135-145) mmol/L Anion Gap 12.60 H (4.00-12.00) mmol/L BUN 32.2 H (9.0-27.0) mg/dL Creatinine 3.4 H (0.6-1.5) mg/dL Est GFR (CKD-EPI) 13 L (>=60) BUN/Creatinine Ratio 9.47 L (12.00-20.00) Ratio Glucose 114 H (70-110) mg/dL POC Glucose (mg/dL) 196 H (70-110) mg/dL Calcium 7.9 L (8.7-10.3) mg/dL Crossmatch See Detail
[2024-07-11 15:57] LABS: Glucose,Whole Blood 213 mg/dL (70-110)
[2024-07-11 18:10] LABS: HCT 27.1 % (37.2-46.3); HGB 8.5 g/dL (12.0-15.0); MCH 26.2 pg (27.0-32.0); MCHC 31.4 g/dL (32.0-37.0); MCV 83.4 fL (80.0-97.0); Mean Platelet Volume 9.7 fL (9.5-12.2); Platelet Count 206 10*3/uL (140-440); RBC 3.25 10*6/uL (4.10-5.20); RDW 18.6 % (11.5-14.5); WBC 8.41 10*3/uL (4.50-10.00)
[2024-07-11 22:44] LABS: Glucose,Whole Blood 204 mg/dL (70-110)
[2024-07-12 03:47] LABS: Basophils # (A) 0.04 10*3/uL (0.00-0.10); Basophils % (A) 0.5 %; Eosinophils # (A) 0.78 10*3/uL (0.04-0.35); Eosinophils % (A) 10.6 %; HCT 25.5 % (37.2-46.3); HGB 7.9 g/dL (12.0-15.0); Lymphocytes % (A) 21.7 %; MCH 25.2 pg (27.0-32.0); MCV 81.5 fL (80.0-97.0); Mean Platelet Volume 9.4 fL (9.5-12.2); Monocytes % (A) 12.2 %; Neutrophils # (A) 4.02 10*3/uL (1.80-7.70); Neutrophils % (A) 54.5 %; Platelet Count 208 10*3/uL (140-440); RBC 3.13 10*6/uL (4.10-5.20); RDW 19.1 % (11.5-14.5); WBC 7.38 10*3/uL (4.50-10.00)
[2024-07-12 04:07] LABS: African American GFR (CKD) 12 (>60 ml/min/1.73 sqM); Anion Gap 9 mmol/L; Blood Urea Nitrogen 46 mg/dL (7-17); Calcium 8.2 mg/dL (8.4-10.2); Carbon Dioxide 25 mmol/L (22-30); Chloride 94 mmol/L (98-107); Glucose 121 mg/dL (74-99); Non-African American GFR(CKD) 11 (>60 ml/min/1.73 sqM); Potassium 3.9 mmol/L (3.5-5.1); Sodium 128 mmol/L (137-145)
[2024-07-12 05:55] LABS: Glucose,Whole Blood 119 mg/dL (70-110)
--- NOTE | 2024-07-12 11:01 | P.PN ---
Subjective Patient is seen in follow-up for end-stage renal disease. Resting in bed. No active complaints. Feels well. Received a unit of blood yesterday. Vital signs are stable. General: No acute distress. HEENT: Head exam is unremarkable. LUNGS: No audible rhonchi or wheezes. HEART: Tachycardic. ABDOMEN: Nontender. EXTREMITITES: 1+ edema. Objective - Vital Signs Vital signs: Vital Signs Temp 98 F 07/12/24 07:10 Pulse 63 07/12/24 07:10 Resp 16 07/12/24 07:10 BP 131/61 07/12/24 07:10 Pulse Ox 93 L 07/12/24 07:10 FiO2 Intake & Output 07/11/24 07/12/24 07/12/24 18:59 06:59 18:59 Intake Total 310 540 Output Total 0 Balance 310 540 Weight 105 kg Intake: Oral 540 Blood Product 310 Rc As-1 Unit 310 [id number] Output: Urine 0 Other: # Voids 1 - Labs CBC & Chem 7: 07/12/24 03:20 07/12/24 03:20 Labs: Abnormal Lab Results - Last 24 Hours (Table) 07/11/24 07/11/24 07/11/24 Range/Units 10:25 11:24 15:45 RBC (4.10-5.20) 10*6/uL Hgb (12.0-15.0) g/dL Hct (37.2-46.3) % MCH (27.0-32.0) pg MCHC (32.0-37.0) g/dL MPV (9.5-12.2) fL Eosinophils # (0.04-0.35) 10*3/uL Sodium (137-145) mmol/L Chloride (98-107) mmol/L BUN (7-17) mg/dL Creatinine (0.52-1.04) mg/dL Glucose (74-99) mg/dL POC Glucose (mg/dL) 196 H 213 H (70-110) mg/dL Calcium (8.4-10.2) mg/dL Crossmatch See Detail 07/11/24 07/11/24 07/12/24 Range/Units 17:58 22:42 03:20 RBC 3.25 L 3.13 L (4.10-5.20) 10*6/uL Hgb 8.5 L 7.9 L (12.0-15.0) g/dL Hct 27.1 L 25.5 L (37.2-46.3) % MCH 26.2 L 25.2 L (27.0-32.0) pg MCHC 31.4 L 31.0 L (32.0-37.0) g/dL MPV 9.4 L (9.5-12.2) fL Eosinophils # 0.78 H (0.04-0.35) 10*3/uL Sodium (137-145) mmol/L Chloride (98-107) mmol/L BUN (7-17) mg/dL Creatinine (0.52-1.04) mg/dL Glucose (74-99) mg/dL POC Glucose (mg/dL) 204 H (70-110) mg/dL Calcium (8.4-10.2) mg/dL Crossmatch 07/12/24 07/12/24 Range/Units 03:20 05:54 RBC (4.10-5.20) 10*6/uL Hgb (12.0-15.0) g/dL Hct (37.2-46.3) % MCH (27.0-32.0) pg MCHC (32.0-37.0) g/dL MPV (9.5-12.2) fL Eosinophils # (0.04-0.35) 10*3/uL Sodium 128 L (137-145) mmol/L Chloride 94 L (98-107) mmol/L BUN 46 H (7-17) mg/dL Creatinine 3.78 H (0.52-1.04) mg/dL Glucose 121 H (74-99) mg/dL POC Glucose (mg/dL) 119 H (70-110) mg/dL Calcium 8.2 L (8.4-10.2) mg/dL Crossmatch Assessment and Plan Plan: Assessment: 1. End-stage renal disease maintained on hemodialysis on Friday schedule. Started on hemodialysis in April 2024. Has permacath. 2. Hyperkalemia secondary to missed hemodialysis. Also on Entresto. Improved. 3. History of liver cirrhosis. Gets regular paracentesis. 4. Diabetes mellitus. 5. Anemia of chronic kidney disease. On Aranesp. Received blood transfusion as well as IV DDAVP this admission. 6. Hypervolemic hyponatremia. Expect improvement postdialysis. Plan: Hemodialysis Friday. Maintain low-salt diet and fluid restriction. Maintain Lasix. Maintain midodrine. Extra dose during dialysis as needed. Patient will be going back home upon discharge.
[2024-07-12 11:39] LABS: Glucose,Whole Blood 186 mg/dL (70-110)
--- NOTE | 2024-07-12 12:29 | P.PN ---
Subjective HISTORY OF PRESENT ILLNESS: This is a pleasant 78-year-old female patient of Dr. Guillen with past medical history of atrial fibrillation, tachycardia induced cardiomyopathy, normalization of the LV systolic function and sinus mechanism, hypertension, hyperlipidemia, chronic kidney disease recently started on hemodialysis and diabetes mellitus type 2. Was last seen in our office in October 2022. Presented to the hospital with complaints of missing dialysis due to some transportation issues as well as bedbug infestation at her home. She has been requiring paracentesis as well which has been postponed therefore she is feeling some tightness in her abdomen and chest. We were asked see the patient in consultation for low blood pressure. She is on midodrine. She continues to undergo hemodialysis. Diagnostics -EKG: Sinus rhythm -Chest x-ray: Cardiomegaly without overt fluid overload -Ultrasound-guided paracentesis with 4.6 L of straw-colored fluid removed on 06/21/2024 -Laboratory studies: Hemoglobin 7.5, stable, sodium 131, potassium 4.8, BUN 57.5, creatinine 4.3 -Home cardiac medications: Eliquis 5 mg p.o. twice daily, Lipitor 20 mg p.o. daily, carvedilol 3.125 mg p.o. twice daily, Lasix 80 mg p.o. daily, Entresto 24-26 mg p.o. twice daily -Prior stress test: 2012 showing fixed anterior wall defect -Echocardiogram: September 2022 normal EF moderate LVH and mild MR -Cardiac catheterization: April 2019 showing normal coronaries 07/04/2024 Patient was seen and examined resting comfortably in bed. Edema is stable. Breathing is stable. She is anticipating dialysis again on Friday. Being followed closely by nephrology. Blood pressure has been stable. 07/05/2024 Seen and examined at bedside this a.m. Denies any chest pain chest pressure. Lower extremity swelling is present. Permacath in place, rate controlled atrial fibrillation 07/06 Patient is seen and examined. She denies having chest pain, no shortness of janie ath. She underwent a paracentesis with removal of 5400 mL of clear straw- colored fluid. She is receiving hemodialysis today. Her lower extremity edema is improved. Blood pressure 126/56, heart rate in the 70s, pulse ox 94% on room air. Hemoglobin 7.4. Echocardiogram reveals EF of 55 to 60%. Severe concentric LVH. No obvious LVOT obstruction. Moderate LA dilatation, mild RA dilatation. Right ventricular systolic pressure within normal limits. No significant valvular dysfunction. Aortic root is 3.9 cm. No significant difference from echocardiogram performed in 2021. Recommend hypertrophic cardiomyopathy workup 07/07 Patient seen and examined. She denies chest pain no shortness of breath. Her lower extremity edema is improved. Blood pressure 123/67, heart rate 5574 and pulse ox 96% on room air. No labs available at the time of this dictation. 07/12/2024 Cardiology was reconsulted secondary to an episode of SVT yesterday. EKG reviewed revealing 2-1 atrial tachycardia. Patient does report having palpitations and dizziness at that time. According to the patient's nurse this resolved spontaneously without any medications given. Patient is maintaining sinus mechanism this morning. Patient currently denies chest pain or pressure. She denies shortness of breath. Vital signs are stable. PHYSICAL EXAM: VITAL SIGNS: Reviewed. GENERAL: Well-developed in no acute distress. NECK: Supple. No JVD or thyromegaly LUNGS: Respirations even and unlabored. Lungs essentially clear to auscultation bilaterally. HEART: Regular rate and rhythm. S1 and S2 heard. EXTREMITIES: Normal range of motion. No clubbing or cyanosis. Peripheral pulses intact. No lower extremity edema ASSESSMENT: Paroxysmal atrial fibrillation, currently maintaining sinus mechanism 2-1 atrial tachycardia Nonischemic cardiomyopathy End-stage renal failure on hemodialysis Hypotension, resolved PLAN: Continue current cardiac medications including Eliquis, Lipitor, Lasix, midodrine, Entresto Increase metoprolol succinate to 25 mg twice a day Check magnesium Continue telemetry monitoring Further recommendations pending patient course Nurse practitioner note has been reviewed by physician. Signing provider agrees with the documented findings, assessment, and plan of care documented by PANTOGRAPH MACHINE SET UP OPERATOR as a scribe. Objective - Vital Signs Vital signs: Vital Signs Temp 98 F 07/12/24 07:10 Pulse 72 07/12/24 12:08 Resp 16 07/12/24 08:00 BP 122/70 07/12/24 12:08 Pulse Ox 93 L 07/12/24 07:10 FiO2 Intake & Output 07/11/24 07/12/24 07/12/24 18:59 06:59 18:59 Intake Total 310 540 Output Total 0 Balance 310 540 Weight 105 kg Intake: Oral 540 Blood Product 310 Rc As-1 Unit 310 [id number] Output: Urine 0 Other: Voiding Method Diaper # Voids 1 - Labs CBC & Chem 7: 07/12/24 03:20 07/12/24 03:20 Labs: Abnormal Lab Results - Last 24 Hours (Table) 07/11/24 07/11/24 07/11/24 Range/Units 10:25 15:45 17:58 RBC 3.25 L (4.10-5.20) 10*6/uL Hgb 8.5 L (12.0-15.0) g/dL Hct 27.1 L (37.2-46.3) % MCH 26.2 L (27.0-32.0) pg MCHC 31.4 L (32.0-37.0) g/dL MPV (9.5-12.2) fL Eosinophils # (0.04-0.35) 10*3/uL Sodium (137-145) mmol/L Chloride (98-107) mmol/L BUN (7-17) mg/dL Creatinine (0.52-1.04) mg/dL Glucose (74-99) mg/dL POC Glucose (mg/dL) 213 H (70-110) mg/dL Calcium (8.4-10.2) mg/dL Crossmatch See Detail 07/11/24 07/12/24 07/12/24 Range/Units 22:42 03:20 03:20 RBC 3.13 L (4.10-5.20) 10*6/uL Hgb 7.9 L (12.0-15.0) g/dL Hct 25.5 L (37.2-46.3) % MCH 25.2 L (27.0-32.0) pg MCHC 31.0 L (32.0-37.0) g/dL MPV 9.4 L (9.5-12.2) fL Eosinophils # 0.78 H (0.04-0.35) 10*3/uL Sodium 128 L (137-145) mmol/L Chloride 94 L (98-107) mmol/L BUN 46 H (7-17) mg/dL Creatinine 3.78 H (0.52-1.04) mg/dL Glucose 121 H (74-99) mg/dL POC Glucose (mg/dL) 204 H (70-110) mg/dL Calcium 8.2 L (8.4-10.2) mg/dL Crossmatch 07/12/24 07/12/24 Range/Units 05:54 11:38 RBC (4.10-5.20) 10*6/uL Hgb (12.0-15.0) g/dL Hct (37.2-46.3) % MCH (27.0-32.0) pg MCHC (32.0-37.0) g/dL MPV (9.5-12.2) fL Eosinophils # (0.04-0.35) 10*3/uL Sodium (137-145) mmol/L Chloride (98-107) mmol/L BUN (7-17) mg/dL Creatinine (0.52-1.04) mg/dL Glucose (74-99) mg/dL POC Glucose (mg/dL) 119 H 186 H (70-110) mg/dL Calcium (8.4-10.2) mg/dL Crossmatch
[2024-07-12 16:35] LABS: Glucose,Whole Blood 212 mg/dL (70-110)
[2024-07-12 20:09] LABS: Glucose,Whole Blood 256 mg/dL (70-110)
[2024-07-12] MEDS: METOPROLOL SUCCINATE (ER) 25 MG TAB.ER.24H PO SCH (21:25)
--- NOTE | 2024-07-12 21:56 | P.PN ---
Subjective Progress Note Date: 07/12/24 Patient is evaluated today resting in bed on the medical floor. Patient has no acute complaints currently. Pending fumigation and eradication of the bedbugs before she can return home as EMS provides transportation to hemodialysis and the frequent paracentesis. They will not provide transport until the all clear has been provided for the current infestation. She has been denied at multiple rehab facilities. 07/10/24 Patient was seen and examined today. No issues overnight. Patient afebrile, heart rate 65, respiratory rate 16, blood pressure 101/63, saturating 98% on room air. Sodium 129 potassium 4.6 BUN 52, creatinine 4.6. Nephrology following, patient underwent maintenance hemodialysis today. Pending placement. 07/11/24 Patient was seen and examined today. Early in the a.m. patient went into SVT with heart rate in the 130s, later on converted into normal sinus rhythm spontaneously. Reconsulted cardiology. Patient transferred to ICU overflow from 3 S. patient's hemoglobin 6.8 today, 1 unit of packed RBCs ordered. No sign or symptom of active bleed noted. 07/12/2024 Patient evaluated today in follow up. No further reports of palpitations or chest discomfort. She has received PRBCs and hemoglobin stable with no evidence of acute GI bleeding. Patient on the medical floor now. Patient will undergo routine hemodialysis tomorrow. Still awaiting all clear to return home vs. other options. SW to send a blanket referral outside of town. Review of Systems Constitutional: Denied any fatigue denied any fever. Cardio vascular: denied any chest pain, palpitations Gastrointestinal: denied any nausea, vomiting, Reports loose stools and abdominal pain Pulmonary: Denied any shortness of breath cough Neurologic denied any new focal deficits All inpatient medications were reviewed and appropriate changes in these medications as dictated in the interval history and assessment and plan. PHYSICAL EXAMINATION: GENERAL: The patient is alert and oriented x2-3, not in any acute distress. Well developed, well nourished. Obese HEENT: Pupils are round and equally reacting to light. EOMI. No scleral icterus. No conjunctival pallor. Normocephalic, atraumatic. No pharyngeal erythema. No thyromegaly. CARDIOVASCULAR: S1 and S2 present. No murmurs, rubs, or gallops. PULMONARY: Chest is clear to auscultation, no wheezing or crackles. ABDOMEN: Soft, mildly tender, nondistended, normoactive bowel sounds. No palpable organomegaly. MUSCULOSKELETAL: No joint swelling or deformity. EXTREMITIES: No cyanosis, clubbing, or pedal edema. NEUROLOGICAL: Gross neurological examination did not reveal any focal deficits. SKIN: No rashes. Assessment and Plan Bed bug infestation End stage renal disease on , , Friday schedule Ascites from liver cirrhosis requiring frequent paracentesis Atrial fibrillation, paroxysmal Episode of atrial tachycardia Hx nonischemic cardiomyopathy Anemia of chronic disease Coronary artery disease Diabetes Mellitus type 2 Hyperlipidemia Hypertension Hx of stroke DVT Plan Pending fumigation for the bed bugs Hemodialysis per nephrology Monitor hemoglobin and transfuse for hgb less than 7 Podiatry consult for routine nail trimming Cardiology following on toprol XL Continue cardiac telemetry The impression and plan of care has been dictated by Mercedes Bryan, Nurse Practitioner as directed. Dr. Orlando MD I have performed a history and physical examination and medical decision making of this patient, discussed the same with the dictator, and agree with the dictators assessment and plan as written, documented as a scribe. Based on total visit time, I have performed more than 50% of this visit. Objective - Vital Signs Vital signs: Vital Signs Temp 99.0 F 07/12/24 19:05 Pulse 75 07/12/24 19:05 Resp 16 07/12/24 19:05 BP 117/62 07/12/24 19:05 Pulse Ox 97 07/12/24 19:05 FiO2 Intake & Output 07/12/24 07/12/24 07/13/24 06:59 18:59 06:59 Intake Total 540 540 Balance 540 540 Weight 105 kg Intake: Oral 540 540 Other: Voiding Method Diaper Diaper # Voids 1 1 # Bowel Movements 0 - Labs CBC & Chem 7: 07/12/24 03:20 07/12/24 03:20 Labs: Abnormal Lab Results - Last 24 Hours (Table) 07/11/24 07/12/24 07/12/24 Range/Units 22:42 03:20 03:20 RBC 3.13 L (4.10-5.20) 10*6/uL Hgb 7.9 L (12.0-15.0) g/dL Hct 25.5 L (37.2-46.3) % MCH 25.2 L (27.0-32.0) pg MCHC 31.0 L (32.0-37.0) g/dL MPV 9.4 L (9.5-12.2) fL Eosinophils # 0.78 H (0.04-0.35) 10*3/uL Sodium 128 L (137-145) mmol/L Chloride 94 L (98-107) mmol/L BUN 46 H (7-17) mg/dL Creatinine 3.78 H (0.52-1.04) mg/dL Glucose 121 H (74-99) mg/dL POC Glucose (mg/dL) 204 H (70-110) mg/dL Calcium 8.2 L (8.4-10.2) mg/dL 07/12/24 07/12/24 07/12/24 Range/Units 05:54 11:38 16:33 RBC (4.10-5.20) 10*6/uL Hgb (12.0-15.0) g/dL Hct (37.2-46.3) % MCH (27.0-32.0) pg MCHC (32.0-37.0) g/dL MPV (9.5-12.2) fL Eosinophils # (0.04-0.35) 10*3/uL Sodium (137-145) mmol/L Chloride (98-107) mmol/L BUN (7-17) mg/dL Creatinine (0.52-1.04) mg/dL Glucose (74-99) mg/dL POC Glucose (mg/dL) 119 H 186 H 212 H (70-110) mg/dL Calcium (8.4-10.2) mg/dL 07/12/24 Range/Units 20:08 RBC (4.10-5.20) 10*6/uL Hgb (12.0-15.0) g/dL Hct (37.2-46.3) % MCH (27.0-32.0) pg MCHC (32.0-37.0) g/dL MPV (9.5-12.2) fL Eosinophils # (0.04-0.35) 10*3/uL Sodium (137-145) mmol/L Chloride (98-107) mmol/L BUN (7-17) mg/dL Creatinine (0.52-1.04) mg/dL Glucose (74-99) mg/dL POC Glucose (mg/dL) 256 H (70-110) mg/dL Calcium (8.4-10.2) mg/dL Assessment and Plan Time with Patient: Less than 30
[2024-07-13 06:14] LABS: Glucose,Whole Blood 137 mg/dL (70-110)
--- NOTE | 2024-07-13 11:22 | P.PN ---
Subjective Patient is seen in follow-up for end-stage renal disease. Resting in bed. No active complaints. Feels well. Tolerating dialysis well. Blood pressure on the lower end. Vital signs are stable. General: No acute distress. HEENT: Head exam is unremarkable. LUNGS: No audible rhonchi or wheezes. HEART: Tachycardic. ABDOMEN: Nontender. EXTREMITITES: 1+ edema. Objective - Vital Signs Vital signs: Vital Signs Temp 99.5 F 07/13/24 07:05 Pulse 66 07/13/24 07:05 Resp 17 07/13/24 07:05 BP 101/60 07/13/24 07:05 Pulse Ox 98 07/13/24 07:05 FiO2 Intake & Output 07/12/24 07/13/24 07/13/24 18:59 06:59 18:59 Intake Total 540 120 200 Balance 540 120 200 Weight 105.5 kg Intake: Oral 540 120 200 Other: Voiding Method Diaper Diaper Diaper # Voids 1 1 # Bowel Movements 0 - Labs CBC & Chem 7: 07/12/24 03:20 07/12/24 03:20 Labs: Abnormal Lab Results - Last 24 Hours (Table) 07/12/24 07/12/24 07/12/24 Range/Units 11:38 16:33 20:08 POC Glucose (mg/dL) 186 H 212 H 256 H (70-110) mg/dL 07/13/24 Range/Units 06:13 POC Glucose (mg/dL) 137 H (70-110) mg/dL Assessment and Plan Plan: Assessment: 1. End-stage renal disease maintained on hemodialysis on Friday schedule. Started on hemodialysis in April 2024. Has permacath. 2. Hyperkalemia secondary to missed hemodialysis. Also on Entresto. Improved. 3. History of liver cirrhosis. Gets regular paracentesis. 4. Diabetes mellitus. 5. Anemia of chronic kidney disease. On Aranesp. Received blood transfusion as well as IV DDAVP this admission. 6. Hypervolemic hyponatremia. Expect improvement postdialysis. Plan: Currently seen while undergoing hemodialysis. Maintain low-salt diet and fluid restriction. Maintain Lasix. Maintain midodrine. Extra dose during dialysis as needed. Patient will be going back home upon discharge.
[2024-07-13 11:58] LABS: Glucose,Whole Blood 143 mg/dL (70-110)
--- NOTE | 2024-07-13 12:05 | P.PN ---
Subjective HISTORY OF PRESENT ILLNESS: This is a pleasant 78-year-old female patient of Dr. Guillen with past medical history of atrial fibrillation, tachycardia induced cardiomyopathy, normalization of the LV systolic function and sinus mechanism, hypertension, hyperlipidemia, chronic kidney disease recently started on hemodialysis and diabetes mellitus type 2. Was last seen in our office in October 2022. Presented to the hospital with complaints of missing dialysis due to some transportation issues as well as bedbug infestation at her home. She has been requiring paracentesis as well which has been postponed therefore she is feeling some tightness in her abdomen and chest. We were asked see the patient in consultation for low blood pressure. She is on midodrine. She continues to undergo hemodialysis. Diagnostics -EKG: Sinus rhythm -Chest x-ray: Cardiomegaly without overt fluid overload -Ultrasound-guided paracentesis with 4.6 L of straw-colored fluid removed on 06/21/2024 -Laboratory studies: Hemoglobin 7.5, stable, sodium 131, potassium 4.8, BUN 57.5, creatinine 4.3 -Home cardiac medications: Eliquis 5 mg p.o. twice daily, Lipitor 20 mg p.o. daily, carvedilol 3.125 mg p.o. twice daily, Lasix 80 mg p.o. daily, Entresto 24-26 mg p.o. twice daily -Prior stress test: 2012 showing fixed anterior wall defect -Echocardiogram: September 2022 normal EF moderate LVH and mild MR -Cardiac catheterization: April 2019 showing normal coronaries 07/04/2024 Patient was seen and examined resting comfortably in bed. Edema is stable. Breathing is stable. She is anticipating dialysis again on Friday. Being followed closely by nephrology. Blood pressure has been stable. 07/05/2024 Seen and examined at bedside this a.m. Denies any chest pain chest pressure. Lower extremity swelling is present. Permacath in place, rate controlled atrial fibrillation 07/06 Patient is seen and examined. She denies having chest pain, no shortness of janie ath. She underwent a paracentesis with removal of 5400 mL of clear straw- colored fluid. She is receiving hemodialysis today. Her lower extremity edema is improved. Blood pressure 126/56, heart rate in the 70s, pulse ox 94% on room air. Hemoglobin 7.4. Echocardiogram reveals EF of 55 to 60%. Severe concentric LVH. No obvious LVOT obstruction. Moderate LA dilatation, mild RA dilatation. Right ventricular systolic pressure within normal limits. No significant valvular dysfunction. Aortic root is 3.9 cm. No significant difference from echocardiogram performed in 2021. Recommend hypertrophic cardiomyopathy workup 07/07 Patient seen and examined. She denies chest pain no shortness of breath. Her lower extremity edema is improved. Blood pressure 123/67, heart rate 5574 and pulse ox 96% on room air. No labs available at the time of this dictation. 07/12/2024 Cardiology was reconsulted secondary to an episode of SVT yesterday. EKG reviewed revealing 2-1 atrial tachycardia. Patient does report having palpitations and dizziness at that time. According to the patient's nurse this resolved spontaneously without any medications given. Patient is maintaining sinus mechanism this morning. Patient currently denies chest pain or pressure. She denies shortness of breath. Vital signs are stable. 07/13/2024 Patient examined this morning at the bedside. She is currently undergoing hemodialysis. Patient denies chest pain or pressure. She denies shortness of breath. No further episodes of atrial tachycardia. Vital signs are stable. PHYSICAL EXAM: VITAL SIGNS: Reviewed. GENERAL: Well-developed in no acute distress. NECK: Supple. No JVD or thyromegaly LUNGS: Respirations even and unlabored. Lungs essentially clear to auscultation bilaterally. HEART: Regular rate and rhythm. S1 and S2 heard. EXTREMITIES: Normal range of motion. No clubbing or cyanosis. Peripheral pulses intact. No lower extremity edema ASSESSMENT: Paroxysmal atrial fibrillation, currently maintaining sinus mechanism 2-1 atrial tachycardia Nonischemic cardiomyopathy End-stage renal failure on hemodialysis Hypotension, resolved PLAN: Continue current cardiac medications including Eliquis, Lipitor, Lasix, midodrine, Entresto, metoprolol Continue telemetry monitoring Patient is currently stable from a cardiac perspective Further recommendations pending patient course Nurse practitioner note has been reviewed by physician. Signing provider agrees with the documented findings, assessment, and plan of care documented by SLOOP CAPTAIN as a scribe. Objective - Vital Signs Vital signs: Vital Signs Temp 99.5 F 07/13/24 07:05 Pulse 66 07/13/24 07:05 Resp 17 07/13/24 07:05 BP 101/60 07/13/24 07:05 Pulse Ox 98 07/13/24 07:05 FiO2 Intake & Output 04/21/25 04/22/25 04/22/25 18:59 06:59 18:59 Intake Total 540 120 200 Balance 540 120 200 Weight 105.5 kg Intake: Oral 540 120 200 Other: Voiding Method Diaper Diaper Diaper # Voids 1 1 # Bowel Movements 0 - Labs CBC & Chem 7: 07/12/24 03:20 07/12/24 03:20 Labs: Abnormal Lab Results - Last 24 Hours (Table) 07/12/24 07/12/24 07/13/24 Range/Units 16:33 20:08 06:13 POC Glucose (mg/dL) 212 H 256 H 137 H (70-110) mg/dL 07/13/24 Range/Units 11:57 POC Glucose (mg/dL) 143 H (70-110) mg/dL
[2024-07-13] MEDS: BACITRACIN OINT 1 EACH PACKET TOPICAL SCH (14:13)
--- NOTE | 2024-07-13 14:25 | P.PN ---
Subjective Progress Note Date: 07/13/24 Patient is evaluated today resting in bed on the medical floor. Patient has no acute complaints currently. Pending fumigation and eradication of the bedbugs before she can return home as EMS provides transportation to hemodialysis and the frequent paracentesis. They will not provide transport until the all clear has been provided for the current infestation. She has been denied at multiple rehab facilities. 07/10/24 Patient was seen and examined today. No issues overnight. Patient afebrile, heart rate 65, respiratory rate 16, blood pressure 101/63, saturating 98% on room air. Sodium 129 potassium 4.6 BUN 52, creatinine 4.6. Nephrology following, patient underwent maintenance hemodialysis today. Pending placement. 07/11/24 Patient was seen and examined today. Early in the a.m. patient went into SVT with heart rate in the 130s, later on converted into normal sinus rhythm spontaneously. Reconsulted cardiology. Patient transferred to ICU overflow from 3 S. patient's hemoglobin 6.8 today, 1 unit of packed RBCs ordered. No sign or symptom of active bleed noted. 07/12/2024 Patient evaluated today in follow up. No further reports of palpitations or chest discomfort. She has received PRBCs and hemoglobin stable with no evidence of acute GI bleeding. Patient on the medical floor now. Patient will undergo routine hemodialysis tomorrow. Still awaiting all clear to return home vs. other options. to send a blanket referral outside of town. 07/13/2024 Patient is evaluated in follow-up in the medical floor. No acute complaints at this time. She is currently undergoing hemodialysis. Dr. Cummins was in to see this patient today. Review of Systems Constitutional: Denied any fatigue denied any fever. Cardio vascular: denied any chest pain, palpitations Gastrointestinal: denied any nausea, vomiting, Reports loose stools and abdominal pain Pulmonary: Denied any shortness of breath cough Neurologic denied any new focal deficits All inpatient medications were reviewed and appropriate changes in these medications as dictated in the interval history and assessment and plan. PHYSICAL EXAMINATION: GENERAL: The patient is alert and oriented x2-3, not in any acute distress. Well developed, well nourished. Obese HEENT: Pupils are round and equally reacting to light. EOMI. No scleral icterus. No conjunctival pallor. Normocephalic, atraumatic. No pharyngeal erythema. No thyromegaly. CARDIOVASCULAR: S1 and S2 present. No murmurs, rubs, or gallops. PULMONARY: Chest is clear to auscultation, no wheezing or crackles. ABDOMEN: Soft, mildly tender, nondistended, normoactive bowel sounds. No palpable organomegaly. MUSCULOSKELETAL: No joint swelling or deformity. EXTREMITIES: No cyanosis, clubbing, or pedal edema. NEUROLOGICAL: Gross neurological examination did not reveal any focal deficits. SKIN: No rashes. Assessment and Plan Bed bug infestation End stage renal disease on , , Friday schedule Ascites from liver cirrhosis requiring frequent paracentesis Atrial fibrillation, paroxysmal Episode of atrial tachycardia Hx nonischemic cardiomyopathy Anemia of chronic disease Coronary artery disease Diabetes Mellitus type 2 Hyperlipidemia Hypertension Hx of stroke DVT Plan Pending fumigation for the bed bugs Hemodialysis per nephrology Monitor hemoglobin and transfuse for hgb less than 7 Podiatry consult for routine nail trimming Cardiology following on toprol XL Continue cardiac telemetry Social work following for discharge planning. A blanket referral has been sent to other facilities with in-house hemodialysis. The impression and plan of care has been dictated by Mercedes Bryan, Nurse Practitioner as directed. Dr. Orlando MD I have performed a history and physical examination and medical decision making of this patient, discussed the same with the dictator, and agree with the dictators assessment and plan as written, documented as a scribe. Based on total visit time, I have performed more than 50% of this visit. Objective - Vital Signs Vital signs: Vital Signs Temp 99.5 F 07/13/24 07:05 Pulse 66 07/13/24 07:05 Resp 17 07/13/24 07:05 BP 101/60 07/13/24 07:05 Pulse Ox 98 07/13/24 07:05 FiO2 Intake & Output 07/12/24 07/13/24 07/13/24 18:59 06:59 18:59 Intake Total 540 120 200 Balance 540 120 200 Weight 105.5 kg Intake: Oral 540 120 200 Other: Voiding Method Diaper Diaper Diaper # Voids 1 1 # Bowel Movements 0 - Labs CBC & Chem 7: 07/12/24 03:20 07/12/24 03:20 Labs: Abnormal Lab Results - Last 24 Hours (Table) 07/12/24 07/12/24 07/12/24 Range/Units 11:38 16:33 20:08 POC Glucose (mg/dL) 186 H 212 H 256 H (70-110) mg/dL 07/13/24 Range/Units 06:13 POC Glucose (mg/dL) 137 H (70-110) mg/dL Assessment and Plan Time with Patient: Less than 30
[2024-07-13 16:43] LABS: Glucose,Whole Blood 181 mg/dL (70-110)
[2024-07-13 20:14] LABS: Glucose,Whole Blood 203 mg/dL (70-110)
[2024-07-14 06:08] LABS: Glucose,Whole Blood 156 mg/dL (70-110)
[2024-07-14 06:59] VITALS: BP 114/64; PULSE 57; RESP 18; TEMP 98.4
--- NOTE | 2024-07-14 10:33 | P.PN ---
Subjective Patient is seen in follow-up for end-stage renal disease. Resting in bed. No active complaints. Feels well. Tolerated 700 cc ultrafiltration yesterday. Vital signs are stable. General: No acute distress. HEENT: Head exam is unremarkable. LUNGS: No audible rhonchi or wheezes. HEART: Tachycardic. ABDOMEN: Nontender. EXTREMITITES: 1+ edema. Objective - Vital Signs Vital signs: Vital Signs Temp 98.4 F 07/14/24 06:50 Pulse 57 L 07/14/24 09:05 Resp 18 07/14/24 09:05 BP 114/64 07/14/24 06:50 Pulse Ox 97 07/14/24 06:50 FiO2 Intake & Output 07/13/24 07/14/24 07/14/24 18:59 06:59 18:59 Intake Total 2240 120 Output Total 2000 Balance 240 120 Weight 105.5 kg Intake: Oral 1640 120 Hemodialysis 600 Output: Hemodialysis 1300 Hemodialysis Net Amount 700 Other: Voiding Method Diaper Diaper # Voids 1 1 - Labs CBC & Chem 7: 07/12/24 03:20 07/12/24 03:20 Labs: Abnormal Lab Results - Last 24 Hours (Table) 07/13/24 07/13/24 07/13/24 Range/Units 11:57 16:41 20:13 POC Glucose (mg/dL) 143 H 181 H 203 H (70-110) mg/dL 07/14/24 Range/Units 06:05 POC Glucose (mg/dL) 156 H (70-110) mg/dL Assessment and Plan Plan: Assessment: 1. End-stage renal disease maintained on hemodialysis on Friday schedule. Started on hemodialysis in April 2024. Has permacath. 2. Hyperkalemia secondary to missed hemodialysis. Also on Entresto. Improved. 3. History of liver cirrhosis. Gets regular paracentesis. 4. Diabetes mellitus. 5. Anemia of chronic kidney disease. On Aranesp. Received blood transfusion as well as IV DDAVP this admission. 6. Hypervolemic hyponatremia. Expect improvement postdialysis. Plan: Hemodialysis tomorrow. Maintain low-salt diet and fluid restriction. Maintain Lasix. Maintain midodrine. Extra dose during dialysis as needed. Patient will be going back home upon discharge.
[2024-07-14 10:55] LABS: Glucose,Whole Blood 201 mg/dL (70-110)
--- NOTE | 2024-07-14 11:07 | P.PN ---
Subjective HISTORY OF PRESENT ILLNESS: This is a pleasant 78-year-old female patient of Dr. Guillen with past medical history of atrial fibrillation, tachycardia induced cardiomyopathy, normalization of the LV systolic function and sinus mechanism, hypertension, hyperlipidemia, chronic kidney disease recently started on hemodialysis and diabetes mellitus type 2. Was last seen in our office in October 2022. Presented to the hospital with complaints of missing dialysis due to some transportation issues as well as bedbug infestation at her home. She has been requiring paracentesis as well which has been postponed therefore she is feeling some tightness in her abdomen and chest. We were asked see the patient in consultation for low blood pressure. She is on midodrine. She continues to undergo hemodialysis. Diagnostics -EKG: Sinus rhythm -Chest x-ray: Cardiomegaly without overt fluid overload -Ultrasound-guided paracentesis with 4.6 L of straw-colored fluid removed on 06/21/2024 -Laboratory studies: Hemoglobin 7.5, stable, sodium 131, potassium 4.8, BUN 57.5, creatinine 4.3 -Home cardiac medications: Eliquis 5 mg p.o. twice daily, Lipitor 20 mg p.o. daily, carvedilol 3.125 mg p.o. twice daily, Lasix 80 mg p.o. daily, Entresto 24-26 mg p.o. twice daily -Prior stress test: 2012 showing fixed anterior wall defect -Echocardiogram: September 2022 normal EF moderate LVH and mild MR -Cardiac catheterization: April 2019 showing normal coronaries 07/04/2024 Patient was seen and examined resting comfortably in bed. Edema is stable. Breathing is stable. She is anticipating dialysis again on Friday. Being followed closely by nephrology. Blood pressure has been stable. 07/05/2024 Seen and examined at bedside this a.m. Denies any chest pain chest pressure. Lower extremity swelling is present. Permacath in place, rate controlled atrial fibrillation 07/06 Patient is seen and examined. She denies having chest pain, no shortness of janie ath. She underwent a paracentesis with removal of 5400 mL of clear straw- colored fluid. She is receiving hemodialysis today. Her lower extremity edema is improved. Blood pressure 126/56, heart rate in the 70s, pulse ox 94% on room air. Hemoglobin 7.4. Echocardiogram reveals EF of 55 to 60%. Severe concentric LVH. No obvious LVOT obstruction. Moderate LA dilatation, mild RA dilatation. Right ventricular systolic pressure within normal limits. No significant valvular dysfunction. Aortic root is 3.9 cm. No significant difference from echocardiogram performed in 2021. Recommend hypertrophic cardiomyopathy workup 07/07 Patient seen and examined. She denies chest pain no shortness of breath. Her lower extremity edema is improved. Blood pressure 123/67, heart rate 5574 and pulse ox 96% on room air. No labs available at the time of this dictation. 07/12/2024 Cardiology was reconsulted secondary to an episode of SVT yesterday. EKG reviewed revealing 2-1 atrial tachycardia. Patient does report having palpitations and dizziness at that time. According to the patient's nurse this resolved spontaneously without any medications given. Patient is maintaining sinus mechanism this morning. Patient currently denies chest pain or pressure. She denies shortness of breath. Vital signs are stable. 07/13/2024 Patient examined this morning at the bedside. She is currently undergoing hemodialysis. Patient denies chest pain or pressure. She denies shortness of breath. No further episodes of atrial tachycardia. Vital signs are stable. 07/14/2024 Patient examined this morning at the bedside. Patient currently denies chest pain or pressure. She denies shortness of breath. Vital signs are stable. No further arrhythmias noted. PHYSICAL EXAM: VITAL SIGNS: Reviewed. GENERAL: Well-developed in no acute distress. NECK: Supple. No JVD or thyromegaly LUNGS: Respirations even and unlabored. Lungs essentially clear to auscultation bilaterally. HEART: Regular rate and rhythm. S1 and S2 heard. EXTREMITIES: Normal range of motion. No clubbing or cyanosis. Peripheral pulses intact. No lower extremity edema ASSESSMENT: Paroxysmal atrial fibrillation, currently maintaining sinus mechanism 2-1 atrial tachycardia Nonischemic cardiomyopathy End-stage renal failure on hemodialysis Hypotension, resolved PLAN: Continue current cardiac medications including Eliquis, Lipitor, Lasix, midodrine, Entresto, metoprolol Continue telemetry monitoring Patient is currently stable from a cardiac perspective We will sign off. Please reconsult if needed. Nurse practitioner note has been reviewed by physician. Signing provider agrees with the documented findings, assessment, and plan of care documented by ROPE MAKER as a scribe. Objective - Vital Signs Vital signs: Vital Signs Temp 98.4 F 07/14/24 06:50 Pulse 57 L 07/14/24 09:05 Resp 18 07/14/24 09:05 BP 114/64 07/14/24 06:50 Pulse Ox 97 07/14/24 06:50 FiO2 Intake & Output 07/13/24 07/14/24 07/14/24 18:59 06:59 18:59 Intake Total 2240 120 Output Total 2000 Balance 240 120 Weight 105.5 kg Intake: Oral 1640 120 Hemodialysis 600 Output: Hemodialysis 1300 Hemodialysis Net Amount 700 Other: Voiding Method Diaper Diaper # Voids 1 1 - Labs CBC & Chem 7: 07/12/24 03:20 07/12/24 03:20 Labs: Abnormal Lab Results - Last 24 Hours (Table) 07/13/24 07/13/24 07/13/24 Range/Units 11:57 16:41 20:13 POC Glucose (mg/dL) 143 H 181 H 203 H (70-110) mg/dL 07/14/24 Range/Units 06:05 POC Glucose (mg/dL) 156 H (70-110) mg/dL
--- NOTE | 2024-07-16 19:08 | P.DS ---
Providers Date of admission: 06/17/24 19:15 Attending physician: Luis Shirley Consults: 06/17/24 19:13 Consult Physician Urgent Consulting Provider: Roc Coyne Consult Reason/Comments: Dialysis Do you want consulting provider notified?: Already Contacted 07/02/24 14:17 Consult Physician Urgent Consulting Provider: Ramos Mckenna Consult Reason/Comments: decreased blood pressures Do you want consulting provider notified?: Yes 07/09/24 22:56 Consult Physician Routine Consulting Provider: Ashvin Cummins Consult Reason/Comments: Nail trimming Do you want consulting provider notified?: Yes, Notify in am Primary care physician: Luis Shirley Hospital Course: Final Diagnosis Bed bug infestation End stage renal disease on , , Friday schedule Ascites from liver cirrhosis requiring frequent paracentesis Atrial fibrillation, paroxysmal Episode of atrial tachycardia Hx nonischemic cardiomyopathy Anemia of chronic disease Coronary artery disease Diabetes Mellitus type 2 Hyperlipidemia Hypertension Hx of stroke DVT Discharge Disposition Patient is stable for return home. Continue same hemodialysis, continue scheduled paracentesis. Follow up with Dr Shirley 1 to 2 days. Hospital Course This is a history of physical and 78-year-old white female with known history of end-stage renal disease who has had transportation security. Also, there has been of bedbug infestation in her household which needs to be taken care of before she goes home. She has missed dialysis this week and is now admitted for appropriate treatment. Nephrology was consulted and patient has been resumed on usual hemodialysis schedule //Friday. She also has frequent paracentesis due to history of liver cirrhosis. She had a paracentesis on june 21, and again on july 06. Dr Cummins saw the patient for routine nail care of her feet. Cardiology saw the patient for low blood pressures and she was switched from carvedilol to metoprolol. She is continued on midodrine and also on entresto. Echocardiogram shows EF 55-60%. and no difference from echo in 2021. Patient was monitored for many days in the hospital pending fumigation of her house for the bedbugs. EMS transport which patient uses for hemodialysis and paracentesis would not provided transportation if there are bed bugs noted in the home. Patient went into SVT with heart rate in the 130s, later on converted into normal sinus rhythm spontaneously. Reconsulted cardiology. Patient transferred to ICU overflow from 3 S. patient's hemoglobin 6.8, 1 unit of packed RBCs ordered. No sign or symptom of active bleed noted. She was moved back to the medical floor. After many days in the hospital [facility] has agreed to continue transferring the patient to her outpatient hemodialysis and paracentesis. The house has not been fumigated for bedbugs. She will be discharged home. She is not having any chest pain or shortness of breath or nausea vomiting or diarrhea. She is at baseline. Please see medication reconciliation for a list of current medications. Thank you for allowing us to participate in the care of this patient. The impression and plan of care has been dictated by Mercedes Bryan, Nurse Practitioner as directed. Dr. Orlando MD I have performed a history and physical examination and medical decision making of this patient, discussed the same with the dictator, and agree with the dictators assessment and plan as written, documented as a scribe. Based on total visit time, I have performed more than 50% of this visit. Patient Condition at Discharge: Stable Plan - Discharge Summary Discharge Rx Participant: No New Discharge Prescriptions: New Darbepoetin Fernando [Aranesp] 60 mcg SQ Q7D #1 each Apixaban [Eliquis] 2.5 mg PO BID #60 tab Midodrine [ProAmatine] 10 mg PO AC-TID #90 tab Metoprolol Succinate (ER) [Toprol XL] 25 mg PO BID #60 tab Continue Ipratropium Johnston [Atrovent Hfa] 2 puff INHALATION RT-QID ALPRAZolam [Xanax] 0.25 mg PO TID PRN PRN Reason: Anxiety Aspirin 81 mg PO DAILY Atorvastatin [Lipitor] 20 mg PO DAILY Escitalopram [Lexapro] 10 mg PO DAILY Furosemide [Lasix] 80 mg PO DAILY Insulin Glargine,Hum.rec.anlog [Toujeo Max Solostar] 16 - 18 units SQ HS PRN PRN Reason: BLOOD SUGAR >200 Insulin Glargine,Hum.rec.anlog [Toujeo Max Solostar] 24 units SQ DAILY Albuterol Inhaler [Ventolin Hfa Inhaler] 2 puff INHALATION RT-QID PRN PRN Reason: Shortness Of Breath Sodium Bicarbonate Tab 650 mg PO BID #60 tab Menthol-Zinc Oxide Oint [Calmoseptine Ointment] 1 applic TOPICAL DIRECTED Periguard Ointment 1 applic TOPICAL DIRECTED Vits A and D/White Pet/Lanolin [A and D Ointment] 1 applic TOPICAL DAILY PRN PRN Reason: itching back traMADol HCL 50 mg PO TID PRN PRN Reason: Pain Sacubitril/Valsartan [Entresto 24 mg-26 mg Tablet] 1 tab PO BID Omeprazole [PriLOSEC] 20 mg PO DAILY Ammonium Lactate Lotion [Lac-Hydrin 12% Lotion] 1 applic TOPICAL BID PRN PRN Reason: DRY ITCHY SKIN Cholecalciferol [Vitamin D3 (25 Mcg = 1000 Iu)] 25 mcg PO DAILY Multivit-Min/FA/Lycopen/Lutein [Centrum Silver Tablet] 1 tab PO DAILY Vit C/E/Zn/Coppr/Lutein/Zeaxan [Preservision Areds 2 Softgel] 1 cap PO BID Ascorbic Acid [Vitamin C] 1,000 mg PO DAILY Magnesium Oxide [Mag-Ox] 400 mg PO DAILY #30 tab Nystatin 100,000Unit/gm Cream [Mycostatin Cream] 1 applic TOPICAL BID #60 g Midodrine [ProAmatine] 10 mg PO AC-TID PRN PRN Reason: Blood Pressure - Low Discontinued Potassium Chloride ER [K-Dur 20] 20 meq PO DAILY carvediloL [Coreg] 3.125 mg PO BID Torsemide [Demadex] 40 mg PO DAILY #30 tab Darbepoetin Fernando [Aranesp] 40 mcg SQ DIRECTED Apixaban [Eliquis] 5 mg PO BID Metoprolol Tartrate [Lopressor] 12.5 mg PO BID Discharge Medication List Sacubitril/Valsartan [Entresto 24 mg-26 mg Tablet] 1 tab PO BID 01/12/22 [History] Omeprazole [PriLOSEC] 20 mg PO DAILY 03/05/22 [History] Ipratropium Johnston [Atrovent Hfa] 2 puff INHALATION RT-QID 09/09/22 [History] ALPRAZolam [Xanax] 0.25 mg PO TID PRN 05/30/23 [History] Ammonium Lactate Lotion [Lac-Hydrin 12% Lotion] 1 applic TOPICAL BID PRN 05/30/23 [History] Aspirin 81 mg PO DAILY 05/30/23 [History] Atorvastatin [Lipitor] 20 mg PO DAILY 05/30/23 [History] Cholecalciferol [Vitamin D3 (25 Mcg = 1000 Iu)] 25 mcg PO DAILY 05/30/23 [History] Escitalopram [Lexapro] 10 mg PO DAILY 05/30/23 [History] Furosemide [Lasix] 80 mg PO DAILY 05/30/23 [History] Insulin Glargine,Hum.rec.anlog [Toujeo Max Solostar] 16 - 18 units SQ HS PRN 05/30/23 [History] Insulin Glargine,Hum.rec.anlog [Toujeo Max Solostar] 24 units SQ DAILY 05/30/23 [History] Multivit-Min/FA/Lycopen/Lutein [Centrum Silver Tablet] 1 tab PO DAILY 05/30/23 [History] Albuterol Inhaler [Ventolin Hfa Inhaler] 2 puff INHALATION RT-QID PRN 01/09/24 [History] Ascorbic Acid [Vitamin C] 1,000 mg PO DAILY 01/09/24 [History] Vit C/E/Zn/Coppr/Lutein/Zeaxan [Preservision Areds 2 Softgel] 1 cap PO BID 01/09/24 [History] Magnesium Oxide [Mag-Ox] 400 mg PO DAILY #30 tab 01/16/24 [Rx] Nystatin 100,000Unit/gm Cream [Mycostatin Cream] 1 applic TOPICAL BID #60 g 01/16/24 [Rx] Sodium Bicarbonate Tab 650 mg PO BID #60 tab 01/16/24 [Rx] Menthol-Zinc Oxide Oint [Calmoseptine Ointment] 1 applic TOPICAL DIRECTED 03/03/24 [History] Periguard Ointment 1 applic TOPICAL DIRECTED 03/03/24 [History] Vits A and D/White Pet/Lanolin [A and D Ointment] 1 applic TOPICAL DAILY PRN 03/03/24 [History] traMADol HCL 50 mg PO TID PRN 05/20/24 [History] Midodrine [ProAmatine] 10 mg PO AC-TID PRN 06/17/24 [History] Apixaban [Eliquis] 2.5 mg PO BID #60 tab 07/14/24 [Rx] Darbepoetin Fernando [Aranesp] 60 mcg SQ Q7D #1 each 07/14/24 [Rx] Metoprolol Succinate (ER) [Toprol XL] 25 mg PO BID #60 tab 07/14/24 [Rx] Midodrine [ProAmatine] 10 mg PO AC-TID #90 tab 07/14/24 [Rx] Follow up Appointment(s)/Referral(s): Yifan Guillen MD [STAFF PHYSICIAN] - 1 Week (oficce not answering at time of discharge. please call for follow up appiontment) Luis Shirley MD [Primary Care Provider] - 1-2 days (no answer at time of discharge. call for follow up appiontment.) Roc Coyne DO [STAFF PHYSICIAN] - 1 Week (foolow up at diaylsis for appiontment) Ambulatory/Diagnostic Orders: Basic Metabolic Panel [LAB.AMB] Time Frame: 3 Days, Location: None Selected Complete Blood Count w/diff [LAB.AMB] Location: None Selected Magnesium [LAB.AMB] Location: None Selected Activity/Diet/Wound Care/Special Instructions: Continue usual hemodialysis schedule Friday Continue scheduled paracentesis as prior Repeat blood work 2 to 3 days Follow up with Dr Shirley regarding specialty mattress next week in the office Discharge Disposition: HOME WITH HOME HEALTH SERVICES
== END 2024-07-14 12:28 | disposition home health service (06) | DRG 682 ==
LOC: EC 12:09 → SUPCPDRO 12:09 → 4SSUR 19:15 → OBSVTOIN 19:15 → 4SSUR 19:32 → 2SICU 07-11 11:15 → 4SSUR 07-11 22:26
PROVIDERS: ADMIT Family Medicine; ATTEND Family Medicine
PROC: 0W9G3ZZ Drainage of Peritoneal Cavity, Percutaneous Approach (ICD-10-PCS; principal; 2024-06-21)
PROC: 0W9G3ZZ Drainage of Peritoneal Cavity, Percutaneous Approach (ICD-10-PCS; 2024-07-05)
PROC: 5A1D70Z Performance of Urinary Filtration, Intermittent, Less than 6 Hours Per Day (ICD-10-PCS; 2024-07-05)
DX: I12.0 Hypertensive chronic kidney disease with stage 5 chronic kidney disease or end stage renal disease (principal); N18.6 End stage renal disease; L89.322 Pressure ulcer of left buttock, stage 2; L89.312 Pressure ulcer of right buttock, stage 2; E87.1 Hypo-osmolality and hyponatremia; I42.8 Other cardiomyopathies; I47.19 Other supraventricular tachycardia; K70.31 Alcoholic cirrhosis of liver with ascites; Z99.2 Dependence on renal dialysis; E11.22 Type 2 diabetes mellitus with diabetic chronic kidney disease; E66.01 Morbid (severe) obesity due to excess calories; D63.1 Anemia in chronic kidney disease; I48.19 Other persistent atrial fibrillation; Z68.42 Body mass index [BMI] 45.0-49.9, adult; Z59.19 Other inadequate housing; Z79.4 Long term (current) use of insulin; I95.9 Hypotension, unspecified; D50.9 Iron deficiency anemia, unspecified; E78.5 Hyperlipidemia, unspecified; E87.5 Hyperkalemia; F41.9 Anxiety disorder, unspecified; E87.70 Fluid overload, unspecified; I25.10 Atherosclerotic heart disease of native coronary artery without angina pectoris; I83.90 Asymptomatic varicose veins of unspecified lower extremity; I25.2 Old myocardial infarction; K70.9 Alcoholic liver disease, unspecified; Z59.82 Transportation insecurity; Z74.01 Bed confinement status; Z79.01 Long term (current) use of anticoagulants; Z79.82 Long term (current) use of aspirin; Z79.899 Other long term (current) drug therapy; Z86.16 Personal history of COVID-19; Z86.73 Personal history of transient ischemic attack (TIA), and cerebral infarction without residual deficits; Z71.3 Dietary counseling and surveillance; Z86.718 Personal history of other venous thrombosis and embolism; Z88.5 Allergy status to narcotic agent; Z88.8 Allergy status to other drugs, medicaments and biological substances; Z91.040 Latex allergy status
CPT/HCPCS: 36415; 49083; 71045; 80048; 80053; 82272; 82607; 82728; 83036; 83540; 83550; 83735; 84100; 85025; 85027; 85045; 85610; 86706; 86850; 86900; 86901; 86920; 87324; 87340; 90935; 93005; 93306; 96374; 99291

== ENCOUNTER 2024-07-23 08:51 | Emergency (ER) | payer MEDICARE, OTHER ==
[2024-07-23 09:00] VITALS: TEMP 98.2
--- NOTE | 2024-07-23 10:52 | ED ---
Abdominal Pain HPI - General Chief Complaint: Abdominal Pain Stated Complaint: abd pain Time Seen by Provider: 07/23/24 10:40 Source: patient, EMS, RN notes reviewed, old records reviewed Mode of arrival: EMS Limitations: no limitations - History of Present Illness Initial Comments: 78-year-old female presenting to the ER for evaluation of abdominal pain. Patient with a past medical history significant of end-stage renal disease on dialysis T//Fri, liver cirrhosis, atrial fibrillation, diabetes mellitus, and hypertension. History is limited given patient is a poor historian. Patient presenting today for abdominal discomfort stating she needs a paracentesis. She states she gets these every 1.5 weeks. She has not had a paracentesis since discharge from this hospital last month. It appears upon chart review patient's last paracentesis was on 07 06 24. Patient states she lives at home with 4 family members and is bedbound. She is dependent on [facility] for transportation to and from dialysis, last treatment yesterday. Patient reports she makes very little if any urine. Patient also complaining of an abdominal wound stating it is "draining". She states it is draining from prior paracentesis. Patient denies any fevers, chills, nausea, vomiting, chest pain, shortness of breath or other complaints. - Related Data Home Medications Medication Instructions Recorded Confirmed Sacubitril/Valsartan [Entresto 24 1 tab PO BID 01/12/22 07/23/24 mg-26 mg Tablet] Omeprazole [PriLOSEC] 20 mg PO DAILY 03/05/22 07/23/24 Ipratropium Parkman [Atrovent Hfa] 2 puff INHALATION RT-QID 09/09/22 07/23/24 ALPRAZolam [Xanax] 0.25 mg PO TID PRN 05/30/23 07/23/24 Ammonium Lactate Lotion 1 applic TOPICAL BID PRN 05/30/23 07/23/24 [Lac-Hydrin 12% Lotion] Aspirin 81 mg PO DAILY 05/30/23 07/23/24 Atorvastatin [Lipitor] 20 mg PO DAILY 05/30/23 07/23/24 Cholecalciferol [Vitamin D3 (25 25 mcg PO DAILY 05/30/23 07/23/24 Mcg = 1000 Iu)] Escitalopram [Lexapro] 10 mg PO DAILY 05/30/23 07/23/24 Furosemide [Lasix] 80 mg PO DAILY 05/30/23 07/23/24 Insulin Glargine,Hum.rec.anlog 16 - 18 units SQ HS PRN 05/30/23 07/23/24 [Toujeo Max Solostar] Insulin Glargine,Hum.rec.anlog 24 units SQ DAILY 05/30/23 07/23/24 [Toujeo Max Solostar] Multivit-Min/FA/Lycopen/Lutein 1 tab PO DAILY 05/30/23 07/23/24 [Centrum Silver Tablet] Albuterol Inhaler [Ventolin Hfa 2 puff INHALATION RT-QID PRN 01/09/24 07/23/24 Inhaler] Ascorbic Acid [Vitamin C] 1,000 mg PO DAILY 01/09/24 07/23/24 Vit C/E/Zn/Coppr/Lutein/Zeaxan 1 cap PO BID 01/09/24 07/23/24 [Preservision Areds 2 Softgel] Menthol-Zinc Oxide Oint 1 applic TOPICAL DIRECTED 03/03/24 07/23/24 [Calmoseptine Ointment] Periguard Ointment 1 applic TOPICAL DIRECTED 03/03/24 07/23/24 Vits A and D/White Pet/Lanolin [A 1 applic TOPICAL DAILY PRN 03/03/24 07/23/24 and D Ointment] traMADol HCL 50 mg PO TID PRN 05/20/24 07/23/24 Midodrine [ProAmatine] 10 mg PO AC-TID PRN 06/17/24 07/23/24 Darbepoetin Fernando [Aranesp] 60 mcg SQ DIRECTED 07/23/24 07/23/24 Previous Rx's Medication Instructions Recorded Magnesium Oxide [Mag-Ox] 400 mg PO DAILY #30 tab 01/16/24 Nystatin 100,000Unit/gm Cream 1 applic TOPICAL BID #60 g 01/16/24 [Mycostatin Cream] Sodium Bicarbonate Tab 650 mg PO BID #60 tab 01/16/24 Apixaban [Eliquis] 2.5 mg PO BID #60 tab 07/14/24 Metoprolol Succinate (ER) [Toprol 25 mg PO BID #60 tab 07/14/24 XL] Midodrine [ProAmatine] 10 mg PO AC-TID #90 tab 07/14/24 Allergies Allergy/AdvReac Type Severity Reaction Status Date / Time shellfish derived [Shellfish] Allergy Severe vomiting Verified 07/23/24 13:12 -very ill adhesive Allergy skin red Verified 07/23/24 13:12 and murguia, tears skin aluminum Allergy skin turns Verified 07/23/24 13:12 black, passes out Antihistamines - Allergy heart Verified 07/23/24 13:12 Ethylenediamine palpitations codeine Allergy migraines Verified 07/23/24 13:12 epinephrine Allergy heart Verified 07/23/24 13:12 palpitations fluticasone [From Flonase] Allergy Unknown Verified 07/23/24 13:12 hydrogen peroxide Allergy murguia and Verified 07/23/24 13:12 causes infection latex Allergy passes out Verified 07/23/24 13:12 nickel Allergy turns skin Verified 07/23/24 13:12 black and passes out procaine HCl [From Novocain] Allergy passed Verified 07/23/24 13:12 out- due to epinephrine in it. thiopental sodium Allergy needed cpr Verified 07/23/24 13:12 [From Pentothal] resusitation insulin glargine AdvReac Intermediate Diarrhea, Verified 07/23/24 13:12 [From Lantus U-100 Insulin] Vomiting, upset stomach iron AdvReac Nausea Verified 07/23/24 13:12 methocarbamol [From Robaxin] AdvReac Hallucinati Verified 07/23/24 13:12 ons zinc oxide AdvReac Rash/Hives Verified 07/23/24 13:12 surgical felicita Allergy Severe had to be Uncoded 07/23/24 13:12 removed 2 days post-op petroleum products AdvReac passes out Uncoded 07/23/24 13:12 or does not feel well. (diesel, oils) Review of Systems ROS Statement: Those systems with pertinent positive or pertinent negative responses have been documented in the HPI. ROS Other: All systems not noted in ROS Statement are negative. Past Medical History Past Medical History: Atrial Fibrillation, Coronary Artery Disease (CAD), CVA/TIA, Diabetes Mellitus, Deep Vein Thrombosis (DVT), Hypertension, Myocardial Infarction (MO), Osteoarthritis (OA) Additional Past Medical History / Comment(s): hx tia, hx stroke behind left eye., lt eye macular , states hospitalized with Covid April 2019 with life support and stage 3 kidney failure., hx of fall with hip fx and surgery 01/13/22 went to [facility] for Rehab. DVT during ., varicose veins, states painful sore left heel., hx of t.b. as a child with scarring on lungs. Last Myocardial Infarction Date:: unknown date History of Any Multi-Drug Resistant Organisms: MRSA, VRE Date of last positivie culture/infection: 09/09/22 MRSA & VRE ([facility]-Scanned) MDRO Source:: Blood Culture Past Surgical History: Adenoidectomy, Hysterectomy, Orthopedic Surgery, Tonsillectomy, Tubal Ligation Additional Past Surgical History / Comment(s): pilonidal cyst twice as child, rt knee arthroscopy, krystyna cataracts, krystyna great toe sx, ORIF Left hip (01/13/22) Past Anesthesia/Blood Transfusion Reactions: Previous Problems w/ Anesthesia, Postoperative Nausea & Vomiting (PONV) Additional Past Anesthesia/Blood Transfusion Reaction / Comment(s): difficulty waking up after sx. clausterphobia. 1961 blood transfusion(during child ) pt stated had palpitations after 2nd unit given Past Psychological History: Anxiety Smoking Status: Never smoker Past Alcohol Use History: None Reported Past Drug Use History: None Reported - Past Family History Mother Family Medical History: Cancer Additional Family Medical History / Comment(s): lung cancer Father Family Medical History: Coronary Artery Disease (CAD) Additional Family Medical History / Comment(s): heart disease, kidney disese General Exam Limitations: no limitations General appearance: alert, in no apparent distress Respiratory exam: Present: normal lung sounds bilaterally. Absent: respiratory distress, wheezes, rales, rhonchi, stridor Cardiovascular Exam: Present: regular rate, normal rhythm, normal heart sounds. Absent: systolic murmur, diastolic murmur, rubs, gallop, clicks GI/Abdominal exam: Present: distended, rigid (mild- fluid wave), normal bowel sounds Neurological exam: Present: alert, oriented X3, CN II-XII intact Skin exam: Present: warm, dry, intact, normal color. Absent: rash Course Vital Signs 07/23/24 07/23/24 07/23/24 08:55 11:08 14:03 Temperature 98.2 F Pulse Rate 64 56 L 64 Respiratory 18 16 18 Rate Blood Pressure 149/69 115/48 105/59 O2 Sat by Pulse 98 98 97 Oximetry 07/23/24 07/23/24 07/23/24 14:45 15:00 15:15 Temperature Pulse Rate 100 104 H 101 H Respiratory 18 18 18 Rate Blood Pressure 123/86 107/46 116/51 O2 Sat by Pulse 96 96 96 Oximetry 07/23/24 15:32 Temperature Pulse Rate 65 Respiratory 18 Rate Blood Pressure 100/55 O2 Sat by Pulse 96 Oximetry Medical Decision Making - Medical Decision Making Was pt. sent in by a medical professional or institution (, PA, [employer], urgent care, hospital, or custodial...) When possible be specific @ -No Did you speak to anyone other than the patient for history (EMS, parent, family, police, friend...)? What history was obtained from this source @ -EMS Did you review nursing and triage notes (agree or disagree)? Why? @ -I reviewed and agree with nursing and triage notes Were old charts reviewed (outside hosp., previous admission, EMS record, old EK G, old radiological studies, urgent care reports/EKG's, custodial records)? Report findings @ -Prior medical records Differential Diagnosis (chest pain, altered mental status, abdominal pain women, abdominal pain men, vaginal bleeding, weakness, fever, dyspnea, syncope, headache, dizziness, GI bleed, back pain, seizure, CVA, palpatations, mental health, musculoskeletal)? @ -Differential Abdominal Pain Women:Appendicitis, Cholecystitis, diverticulosis, ischemic bowel, pancreatitis, hepatitis, UTI, gastroenteritis, AAA, incarcerated hernia, bowel obstruction, constipation, inflammatory bowel, hepatitis, peptic ulcer disease, splenic infarction, perforated viscus, vulvitis, ovarian torsion, PID, kidney stone, placenta abruption, this is not meant to be an all-inclusive list EKG interpreted by me (3pts min.). @ -None done X-rays interpreted by me (1pt min.). @ -None done CT interpreted by me (1pt min.). @ -None done U/S interpreted by me (1pt. min.). @ -None done What testing was considered but not performed or refused? (CT, X-rays, U/S, labs)? Why? @ -None What meds were considered but not given or refused? Why? @ -None Did you discuss the management of the patient with other professionals (professionals i.e. , PA, [employer], lab, RT, psych nurse, long term care social worker, typing secretary, teacher, aboriginal liaison officer, housing case manager)? Give summary @ -Case discussed with case management, Lubna FRANCISCO. She contacted interventional radiology who will add patient to outpatient IR schedule for toda y. Patient will undergo paracentesis prior to discharge. She also discussed case with EPS and residential home care regarding bedbug situation. Was smoking cessation discussed for >3mins.? @ -No Was critical care preformed (if so, how long)? @ -No Were there social determinants of health that impacted care today? How? (Homelessness, low income, unemployed, alcoholism, drug addiction, transportation, low edu. Level, literacy, decrease access to med. care, nursing home, rehab)? @ -No Was there de-escalation of care discussed even if they declined (Discuss DNR or withdrawal of care, Hospice)? DNR status @ -No What co-morbidities impacted this encounter? (DM, HTN, Smoking, COPD, CAD, Cancer, CVA, ARF, Chemo, Hep., AIDS, mental health diagnosis, sleep apnea, morbid obesity)? @ -End-stage renal disease on dialysis, liver cirrhosis, atrial fibrillation, CAD, diabetes mellitus, hypertension Was patient admitted / discharged? Hospital course, mention meds given and route, prescriptions, significant lab abnormalities, going to OR and other pertinent info. @ -[Discharge. 78-year-old female presented the ER via EMS for evaluation of abdominal discomfort and requesting paracentesis. Upon arrival vitals with acceptable limits. Patient found to have bedbugs and was cleaned by nursing staff prior to my evaluation, per case management APS and local resources are notified of the situation. Upon my evaluation, patient resting comfortably on stretcher no signs of acute distress. Abdomen is distended and mildly rigid. Fluid wave present. No focal abdominal tenderness. There are no wounds noted to abdomen, coccyx or lower extremities. Laboratory studies appear to be at patient's baseline. GFR 14, creatinine 3.04. Hemoglobin 8.2 chronic to end- stage renal disease. Patient provided tramadol for pain control as she take this TID at home. Lubna, case management, contacted interventional radiology who will perform bedside paracentesis prior to patient being discharged home. Paracentesis performed by Dr. Gay, see note. Patient discharged home in stable condition with close follow-up to PCP. Patient transported by EMS as she is bedbound. Strict return parameters discussed. Patient verbally expressed understanding agreement with care plan. Case discussed with ED attending of Dr. Menendez. Undiagnosed new problem with uncertain prognosis? @ -No Drug Therapy requiring intensive monitoring for toxicity (Heparin, Nitro, Insulin, Cardizem)? @ -No Were any procedures done? @ -No Diagnosis/symptom? @ -Ascites Acute, or Chronic, or Acute on Chronic? @ -Acute on chronic Uncomplicated (without systemic symptoms) or Complicated (systemic symptoms)? @ -Complicated Side effects of treatment? @ -No Exacerbation, Progression, or Severe Exacerbation? @ -No Poses a threat to life or bodily function? How? (Chest pain, USA, MO, pneumonia, PE, COPD, DKA, ARF, appy, cholecystitis, CVA, Diverticulitis, Homicidal, Suicidal, threat to staff... and all critical care pts) @ -Yes, end-stage renal disease and liver cirrhosis is life-threatening. - Lab Data Result diagrams: 07/23/24 10:46 07/23/24 10:46 Lab Results 07/23/24 07/23/24 07/23/24 Range/Units 10:46 10:46 12:18 WBC 6.58 (4.50-10.00) 10*3/uL RBC 3.19 L (4.10-5.20) 10*6/uL Hgb 8.2 L (12.0-15.0) g/dL Hct 27.1 L (37.2-46.3) % MCV 85.0 (80.0-97.0) fL MCH 25.7 L (27.0-32.0) pg MCHC 30.3 L (32.0-37.0) g/dL Plt Count 200 (140-440) 10*3/uL MPV 9.8 (9.5-12.2) fL Immature Gran % (Auto) 0.3 % Neutrophils % 64.5 % Lymphocytes % 19.0 % Monocytes % 10.9 % Eosinophils % 4.7 % Basophils % 0.6 % Immature Gran # 0.02 (0.00-0.04) 10*3/uL Neutrophils # 4.24 (1.80-7.70) 10*3/uL Lymphocytes # 1.25 (0.90-5.00) 10*3/uL Monocytes # 0.72 (0.20-1.00) 10*3/uL Eosinophils # 0.31 (0.04-0.35) 10*3/uL Basophils # 0.04 (0.00-0.10) 10*3/uL PT 11.6 (10.0-12.5) sec INR 1.1 (<1.2) APTT 27.0 (22.0-30.0) sec Sodium 135 L (137-145) mmol/L Potassium 4.1 (3.5-5.1) mmol/L Chloride 97 L (98-107) mmol/L Carbon Dioxide 28 (22-30) mmol/L Anion Gap 10 mmol/L BUN 27 H (7-17) mg/dL Creatinine 3.04 H (0.52-1.04) mg/dL Est GFR (CKD-EPI)AfAm 16 (>60 ml/min/1.73 sqM) Est GFR (CKD-EPI)NonAf 14 (>60 ml/min/1.73 sqM) Glucose 136 H (74-99) mg/dL Calcium 8.8 (8.4-10.2) mg/dL Total Bilirubin 0.6 (0.2-1.3) mg/dL AST 38 H (14-36) U/L ALT 24 (4-34) U/L Alkaline Phosphatase 104 (38-126) U/L Total Protein 5.9 L (6.3-8.2) g/dL Albumin 2.8 L (3.5-5.0) g/dL Disposition Clinical Impression: Ascites Disposition: HOME SELF-CARE Condition: Stable Additional Instructions: Follow-up with PCP in the next 1 to 2 days. Continue dialysis as scheduled. Return to the ER for any new or worsening concerns. Is patient prescribed a controlled substance at d/c from ED?: No Referrals: Luis Shirley MD [Primary Care Provider] - 1-2 days
[2024-07-23 10:56] LABS: Basophils # (A) 0.04 10*3/uL (0.00-0.10); Basophils % (A) 0.6 %; Eosinophils # (A) 0.31 10*3/uL (0.04-0.35); Eosinophils % (A) 4.7 %; HCT 27.1 % (37.2-46.3); HGB 8.2 g/dL (12.0-15.0); Lymphocytes # (A) 1.25 10*3/uL (0.90-5.00); MCH 25.7 pg (27.0-32.0); MCHC 30.3 g/dL (32.0-37.0); Mean Platelet Volume 9.8 fL (9.5-12.2); Monocytes # (A) 0.72 10*3/uL (0.20-1.00); Monocytes % (A) 10.9 %; Neutrophils # (A) 4.24 10*3/uL (1.80-7.70); Neutrophils % (A) 64.5 %; Platelet Count 200 10*3/uL (140-440); RBC 3.19 10*6/uL (4.10-5.20); RDW 19.3 % (11.5-14.5); WBC 6.58 10*3/uL (4.50-10.00)
[2024-07-23 11:08] LABS: ALT 24 U/L (4-34); AST 38 U/L (14-36); African American GFR (CKD) 16 (>60 ml/min/1.73 sqM); Albumin 2.8 g/dL (3.5-5.0); Alkaline Phosphatase 104 U/L (38-126); Anion Gap 10 mmol/L; Blood Urea Nitrogen 27 mg/dL (7-17); Calcium 8.8 mg/dL (8.4-10.2); Carbon Dioxide 28 mmol/L (22-30); Chloride 97 mmol/L (98-107); Glucose 136 mg/dL (74-99); Non-African American GFR(CKD) 14 (>60 ml/min/1.73 sqM); Potassium 4.1 mmol/L (3.5-5.1); Sodium 135 mmol/L (137-145); Total Bilirubin 0.6 mg/dL (0.2-1.3); Total Protein 5.9 g/dL (6.3-8.2)
[2024-07-23 12:40] LABS: INR 1.1 (<1.2); Prothrombin Time 11.6 sec (10.0-12.5)
[2024-07-23 14:04] VITALS: RESP 18
[2024-07-23] MEDS: ALBUMIN HUMAN 25% 50 ML in EMPTY BAG 1 BAG IVPB SCH (15:29)
[2024-07-23 15:32] VITALS: BP 100/55; PULSE 65
[2024-07-23] MEDS: traMADol 50 MG TAB PO STA (15:39)
--- NOTE | 2024-07-24 07:40 | US ---
EXAMINATION TYPE: US paracentesis abd w/image DATE OF EXAM: July 23, 2024 COMPARISON: July 05, 2024 prior paracentesis. CLINICAL INDICATION:Female, 78 years old with history of see IR consult for ordering information; , a miguelinates ATTENDING: Dr. Gay PROCEDURE: Informed consent was obtained. The risks of the procedure were extensively explained incl uding risk of damage to surrounding bowel with perforation and need for additional procedures. Proced ure was performed in the emergency room. Ultrasound imaging of the abdomen demonstrates ascitic fluid. An appropriate access site was localize d to the right lateral abdomen. Timeout was taken per protocol. The skin was prepped and draped in th e usual sterile fashion and then locally anesthetized with 1% lidocaine. The peritoneal cavity was t hen accessed via a 5-Gambian one-step needle/catheter. Approximately 4500 mL of clear straw-colored f luid was obtained. Patient tolerated procedure well without immediate complication. Hemostasis at the procedural site w as obtained with a sterile bandage placed. The patient was monitored in the holding area following th e procedure and was subsequently discharged in stable condition. IMPRESSION: Ultrasound guided paracentesis, with approximately 4500 mL of clear straw-colored fluid drained for t herapeutic purposes. No immediate complications were evident. [facility], , 07/24/2024 7:37 AM
== END 2024-07-23 16:57 | disposition home or self-care (01) ==
LOC: EC 08:51
DX: R18.8 Other ascites (principal); I12.0 Hypertensive chronic kidney disease with stage 5 chronic kidney disease or end stage renal disease; I48.91 Unspecified atrial fibrillation; E11.22 Type 2 diabetes mellitus with diabetic chronic kidney disease; K74.60 Unspecified cirrhosis of liver; Z79.4 Long term (current) use of insulin; Z88.3 Allergy status to other anti-infective agents; Z88.5 Allergy status to narcotic agent; Z88.6 Allergy status to analgesic agent; Z88.9 Allergy status to unspecified drugs, medicaments and biological substances; Z91.09 Other allergy status, other than to drugs and biological substances; Z91.013 Allergy to seafood; Z91.040 Latex allergy status; Z88.8 Allergy status to other drugs, medicaments and biological substances; N18.6 End stage renal disease
CPT/HCPCS: 36415; 80053; 85025; 85610; 85730; 49083; 99284; 96374; P9047

== ENCOUNTER 2024-07-29 09:26 | Emergency (ER) | payer MEDICARE, OTHER ==
--- NOTE | 2024-07-29 10:08 | ED ---
Nausea/Vomiting/Diarrhea HPI - General Chief complaint: Nausea/Vomiting/Diarrhea Stated complaint: N/V Time Seen by Provider: 07/29/24 09:29 Source: patient, RN notes reviewed Mode of arrival: ambulatory Limitations: no limitations - History of Present Illness Initial comments: This is an 78-year-old female who presents to the emergency department for na usea, vomiting, and diarrhea. States that it started last night. She had 4 bowel movements last night and 2 this morning. States that it started out watery but has now started to become more formed. She last threw up before EMS arrived. EMS gave her Zofran with improvement in nausea. She has generalized abdominal discomfort related to her ascites, however it is not different or any worse than normal. She reports possible sick contacts. Denies any fevers or chills. She is on hemodialysis Friday, , and Friday but did not go today. MD complaint: nausea, vomiting, diarrhea - Related Data Home Medications Medication Instructions Recorded Confirmed Sacubitril/Valsartan [Entresto 24 1 tab PO BID 01/12/22 07/23/24 mg-26 mg Tablet] Omeprazole [PriLOSEC] 20 mg PO DAILY 03/05/22 07/23/24 Ipratropium Lebeau [Atrovent Hfa] 2 puff INHALATION RT-QID 09/09/22 07/23/24 ALPRAZolam [Xanax] 0.25 mg PO TID PRN 05/30/23 07/23/24 Ammonium Lactate Lotion 1 applic TOPICAL BID PRN 05/30/23 07/23/24 [Lac-Hydrin 12% Lotion] Aspirin 81 mg PO DAILY 05/30/23 07/23/24 Atorvastatin [Lipitor] 20 mg PO DAILY 05/30/23 07/23/24 Cholecalciferol [Vitamin D3 (25 25 mcg PO DAILY 05/30/23 07/23/24 Mcg = 1000 Iu)] Escitalopram [Lexapro] 10 mg PO DAILY 05/30/23 07/23/24 Furosemide [Lasix] 80 mg PO DAILY 05/30/23 07/23/24 Insulin Glargine,Hum.rec.anlog 16 - 18 units SQ HS PRN 05/30/23 07/23/24 [Al Reynolds] Insulin Glargine,Hum.rec.anlog 24 units SQ DAILY 05/30/23 07/23/24 [Tourachelo Max Solostar] Multivit-Min/FA/Lycopen/Lutein 1 tab PO DAILY 05/30/23 07/23/24 [Centrum Silver Tablet] Albuterol Inhaler [Ventolin Hfa 2 puff INHALATION RT-QID PRN 01/09/24 07/23/24 Inhaler] Ascorbic Acid [Vitamin C] 1,000 mg PO DAILY 01/09/24 07/23/24 Vit C/E/Zn/Coppr/Lutein/Zeaxan 1 cap PO BID 01/09/24 07/23/24 [Preservision Areds 2 Softgel] Menthol-Zinc Oxide Oint 1 applic TOPICAL DIRECTED 03/03/24 07/23/24 [Calmoseptine Ointment] Periguard Ointment 1 applic TOPICAL DIRECTED 03/03/24 07/23/24 Vits A and D/White Pet/Lanolin [A 1 applic TOPICAL DAILY PRN 03/03/24 07/23/24 and D Ointment] traMADol HCL 50 mg PO TID PRN 05/20/24 07/23/24 Midodrine [ProAmatine] 10 mg PO AC-TID PRN 06/17/24 07/23/24 Darbepoetin Fernando [Aranesp] 60 mcg SQ DIRECTED 07/23/24 07/23/24 Previous Rx's Medication Instructions Recorded Magnesium Oxide [Mag-Ox] 400 mg PO DAILY #30 tab 01/16/24 Nystatin 100,000Unit/gm Cream 1 applic TOPICAL BID #60 g 01/16/24 [Mycostatin Cream] Sodium Bicarbonate Tab 650 mg PO BID #60 tab 01/16/24 Apixaban [Eliquis] 2.5 mg PO BID #60 tab 07/14/24 Metoprolol Succinate (ER) [Toprol 25 mg PO BID #60 tab 07/14/24 XL] Midodrine [ProAmatine] 10 mg PO AC-TID #90 tab 07/14/24 Ondansetron Odt [Zofran Odt] 4 mg PO Q8HR PRN #15 tab 07/29/24 Allergies Allergy/AdvReac Type Severity Reaction Status Date / Time shellfish derived [Shellfish] Allergy Severe vomiting Verified 07/29/24 09:35 -very ill adhesive Allergy skin red Verified 07/29/24 09:35 and murguia, tears skin aluminum Allergy skin turns Verified 07/29/24 09:35 black, passes out Antihistamines - Allergy heart Verified 07/29/24 09:35 Ethylenediamine palpitations codeine Allergy migraines Verified 07/29/24 09:35 epinephrine Allergy heart Verified 07/29/24 09:35 palpitations fluticasone [From Flonase] Allergy Unknown Verified 07/29/24 09:35 hydrogen peroxide Allergy murguia and Verified 07/29/24 09:35 causes infection latex Allergy passes out Verified 07/29/24 09:35 nickel Allergy turns skin Verified 07/29/24 09:35 black and passes out procaine HCl [From Novocain] Allergy passed Verified 07/29/24 09:35 out- due to epinephrine in it. thiopental sodium Allergy needed cpr Verified 07/29/24 09:35 [From Pentothal] resusitation insulin glargine AdvReac Intermediate Diarrhea, Verified 07/29/24 09:35 [From Lantus U-100 Insulin] Vomiting, upset stomach iron AdvReac Nausea Verified 07/29/24 09:35 methocarbamol [From Robaxin] AdvReac Hallucinati Verified 07/29/24 09:35 ons zinc oxide AdvReac Rash/Hives Verified 07/29/24 09:35 surgical felicita Allergy Severe had to be Uncoded 07/29/24 09:35 removed 2 days post-op petroleum products AdvReac passes out Uncoded 07/29/24 09:35 or does not feel well. (diesel, oils) Review of Systems ROS Statement: Those systems with pertinent positive or pertinent negative responses have been documented in the HPI. ROS Other: All systems not noted in ROS Statement are negative. Past Medical History Past Medical History: Atrial Fibrillation, Coronary Artery Disease (CAD), CVA/TIA, Diabetes Mellitus, Dialysis, Deep Vein Thrombosis (DVT), Hypertension, Myocardial Infarction (ME), Osteoarthritis (OA) Additional Past Medical History / Comment(s): hx tia, hx stroke behind left eye., lt eye macular , states hospitalized with Covid April 2019 with life support and stage 3 kidney failure., hx of fall with hip fx and surgery 01/13/22 went to [facility] for Rehab. DVT during ., varicose veins, states painful sore left heel., hx of t.b. as a child with scarring on lungs. dialysis since 04/2024, and friday Last Myocardial Infarction Date:: unknown date History of Any Multi-Drug Resistant Organisms: MRSA, VRE Date of last positivie culture/infection: 09/09/22 MRSA & VRE ([facility]-Scanned) MDRO Source:: Blood Culture Past Surgical History: Adenoidectomy, Hysterectomy, Orthopedic Surgery, Tonsillectomy, Tubal Ligation Additional Past Surgical History / Comment(s): pilonidal cyst twice as child, rt knee arthroscopy, krystyna cataracts, krystyna great toe sx, ORIF Left hip (01/13/22) Past Anesthesia/Blood Transfusion Reactions: Previous Problems w/ Anesthesia, Postoperative Nausea & Vomiting (PONV) Additional Past Anesthesia/Blood Transfusion Reaction / Comment(s): difficulty waking up after sx. clausterphobia. 1960 blood transfusion(during child ) pt stated had palpitations after 2nd unit given Past Psychological History: Anxiety Smoking Status: Never smoker Past Alcohol Use History: None Reported Past Drug Use History: None Reported - Past Family History Mother Family Medical History: Cancer Additional Family Medical History / Comment(s): lung cancer Father Family Medical History: Coronary Artery Disease (CAD) Additional Family Medical History / Comment(s): heart disease, kidney disese General Exam Limitations: no limitations General appearance: alert, in no apparent distress Head exam: Present: atraumatic, normocephalic, normal inspection Respiratory exam: Present: normal lung sounds bilaterally. Absent: respiratory distress, wheezes, rales, rhonchi, stridor Cardiovascular Exam: Present: regular rate, normal rhythm Neurological exam: Present: alert, oriented X3, CN II-XII intact Psychiatric exam: Present: normal affect, normal mood Skin exam: Present: warm, dry, intact, normal color. Absent: rash Course Vital Signs 07/29/24 07/29/24 09:30 12:26 Temperature 98.7 F 97.2 F L Pulse Rate 58 L 52 L Respiratory 20 16 Rate Blood Pressure 104/67 116/61 O2 Sat by Pulse 98 100 Oximetry Medical Decision Making - Medical Decision Making This is an 78-year-old female who presents to the emergency department for nausea, vomiting, and diarrhea. Was pt. sent in by a medical professional or institution? @ -No Did you speak to anyone other than the patient for history? @ -No Did you review nursing and triage notes? @ -Yes, and I agree, it is accurate with regards to the patient's symptoms. Were old charts reviewed? @ -No Differential Diagnosis? @ -Differential Nausea and Vomiting: Gastroenteritis, cholecystitis, appendicitis, pancreatitis, migraine, benign positional vertigo, food borne illness, pyelonephritis, irritable bowel sy ndrome, influenza, Covid, GERD, incarcerated hernia, intestinal obstruction, this is not meant to be an all-inclusive list. EKG interpreted by me (3pts min.)? @ -Not obtained X-rays interpreted by me (1pt min.)? @ -Not obtained CT interpreted by me (1pt min.)? @ -Not obtained U/S interpreted by me (1pt. min.)? @ -Not obtained What testing was considered but not performed? (CT, X-rays, U/S, labs)? Why? @ -None What meds were considered but not given? Why? @ -None Did you discuss the management of the patient with other professionals? @ -No Did you reconcile home meds? @ -No Was smoking cessation discussed for >3mins.? @ -No Was critical care preformed (if so, how long)? @ -No Were there social determinants of health that impacted care today? How? (Homelessness, low income, unemployed, alcoholism, drug addiction, solomon sportation, low edu. Level, literacy, decrease access to med. care, residential, rehab)? @ -No Was there de-escalation of care discussed even if they declined? (Discuss DNR or withdrawal of care, Hospice)? @ -No What co-morbidities impacted this encounter? (DM, HTN, Smoking, COPD, CAD, Cancer, CVA, Hep., AIDS, mental health diagnosis, sleep apnea, morbid obesity)? @ -DM, HTN, renal disease Was patient admitted / discharged? @ -Discharged. Lab work relatively unremarkable. Renal function is stable when compared with prior and consistent with patient's history of ESRD on dialysis. COVID, influenza, and RSV testing negative. She had already been given Zofran en route by EMS with improvement in the nausea. She was given Lomotil here for the diarrhea. She had significant improvement in symptoms and was tolerating oral intake. She also had no more bowel movements while in the emergency department. Symptoms likely viral in nature, especially given the sick contacts. Zofran prescribed for any additional nausea. Also advised [id number] Imodium. Advised patient contact her dialysis clinic to see if they can do the dialysis later today or tomorrow. Patient discharged home in stable condition. Case discussed with ED attending Dr. Turner. Return precautions reviewed in depth, the patient is instructed to return to the emergency department with any new, worsening, or concerning symptoms. Patient verbalized understanding. Undiagnosed new problem with uncertain prognosis? @ -None Drug Therapy requiring intensive monitoring for toxicity (Heparin, Nitro, Insulin, Cardizem)? @ -None Were any procedures done? @ -None Diagnosis/symptom? @ -Gastroenteritis Acute, or Chronic, or Acute on Chronic? @ -Acute Uncomplicated (without systemic symptoms) or Complicated (systemic symptoms)? @ -Uncomplicated Side effects of treatment? @ -None Exacerbation, Progression, or Severe Exacerbation] @ -Not applicable Poses a threat to life or bodily function? @ -No - Lab Data Result diagrams: 07/29/24 10:21 07/29/24 10:21 Lab Results 07/29/24 07/29/24 07/29/24 Range/Units 10:21 10:21 10:21 WBC 9.20 (4.50-10.00) 10*3/uL RBC 3.75 L (4.10-5.20) 10*6/uL Hgb 9.8 L D (12.0-15.0) g/dL Hct 32.2 L (37.2-46.3) % MCV 85.9 (80.0-97.0) fL MCH 26.1 L (27.0-32.0) pg MCHC 30.4 L (32.0-37.0) g/dL Plt Count 226 (140-440) 10*3/uL MPV 9.5 (9.5-12.2) fL Immature Gran % (Auto) 0.2 % Neutrophils % 71.8 % Lymphocytes % 13.4 % Monocytes % 8.6 % Eosinophils % 5.3 % Basophils % 0.7 % Immature Gran # 0.02 (0.00-0.04) 10*3/uL Neutrophils # 6.61 (1.80-7.70) 10*3/uL Lymphocytes # 1.23 (0.90-5.00) 10*3/uL Monocytes # 0.79 (0.20-1.00) 10*3/uL Eosinophils # 0.49 H (0.04-0.35) 10*3/uL Basophils # 0.06 (0.00-0.10) 10*3/uL Sodium 136 L (137-145) mmol/L Potassium 3.6 (3.5-5.1) mmol/L Chloride 101 (98-107) mmol/L Carbon Dioxide 26 (22-30) mmol/L Anion Gap 9 mmol/L BUN 31 H (7-17) mg/dL Creatinine 3.96 H (0.52-1.04) mg/dL Est GFR (CKD-EPI)AfAm 12 (>60 ml/min/1.73 sqM) Est GFR (CKD-EPI)NonAf 10 (>60 ml/min/1.73 sqM) Glucose 158 H (74-99) mg/dL Calcium 8.2 L (8.4-10.2) mg/dL Magnesium 3.5 H (1.6-2.3) mg/dL Total Bilirubin 0.7 (0.2-1.3) mg/dL AST 28 (14-36) U/L ALT 17 (4-34) U/L Alkaline Phosphatase 117 (38-126) U/L Total Protein 5.9 L (6.3-8.2) g/dL Albumin 2.8 L (3.5-5.0) g/dL Lipase 88 (23-300) U/L Influenza Type A (PCR) Not Detected (Not Detectd) Influenza Type B (PCR) Not Detected (Not Detectd) RSV (PCR) Not Detected (Not Detectd) SARS-CoV-2 (PCR) Not Detected (Not Detectd) Disposition Clinical Impression: Gastroenteritis Disposition: HOME SELF-CARE Instructions (If sedation given, give patient instructions): Acute Nausea and Vomiting (ED), Acute Diarrhea (ED) Additional Instructions: Return to the emergency department with any new, worsening, or concerning sym ptoms. Take the Zofran up to every 8 hours as needed for nausea and vomiting. Follow up with your primary care provider in 1-2 days. Prescriptions: Ondansetron Odt [Zofran Odt] 4 mg PO Q8HR PRN #15 tab PRN Reason: Nausea And Vomiting Is patient prescribed a controlled substance at d/c from ED?: No Referrals: Cedrick Wakefield MD [REFERRING] - 1-2 days Time of Disposition: 11:34
[2024-07-29 10:39] LABS: Basophils # (A) 0.06 10*3/uL (0.00-0.10); Basophils % (A) 0.7 %; Eosinophils # (A) 0.49 10*3/uL (0.04-0.35); Eosinophils % (A) 5.3 %; HCT 32.2 % (37.2-46.3); Lymphocytes # (A) 1.23 10*3/uL (0.90-5.00); Lymphocytes % (A) 13.4 %; MCH 26.1 pg (27.0-32.0); MCHC 30.4 g/dL (32.0-37.0); MCV 85.9 fL (80.0-97.0); Mean Platelet Volume 9.5 fL (9.5-12.2); Monocytes # (A) 0.79 10*3/uL (0.20-1.00); Monocytes % (A) 8.6 %; Neutrophils # (A) 6.61 10*3/uL (1.80-7.70); Neutrophils % (A) 71.8 %; Platelet Count 226 10*3/uL (140-440); RBC 3.75 10*6/uL (4.10-5.20)
[2024-07-29 10:45] LABS: HGB 9.8 g/dL (12.0-15.0)
[2024-07-29] MEDS: DIPHENOX-ATROP 2.5-0.025 MG 1 EACH TAB PO STA (10:46)
[2024-07-29 10:50] LABS: ALT 17 U/L (4-34); AST 28 U/L (14-36); African American GFR (CKD) 12 (>60 ml/min/1.73 sqM); Albumin 2.8 g/dL (3.5-5.0); Alkaline Phosphatase 117 U/L (38-126); Anion Gap 9 mmol/L; Blood Urea Nitrogen 31 mg/dL (7-17); Calcium 8.2 mg/dL (8.4-10.2); Carbon Dioxide 26 mmol/L (22-30); Chloride 101 mmol/L (98-107); Glucose 158 mg/dL (74-99); Lipase 88 U/L (23-300); Magnesium 3.5 mg/dL (1.6-2.3); Non-African American GFR(CKD) 10 (>60 ml/min/1.73 sqM); Potassium 3.6 mmol/L (3.5-5.1); Sodium 136 mmol/L (137-145); Total Bilirubin 0.7 mg/dL (0.2-1.3); Total Protein 5.9 g/dL (6.3-8.2)
[2024-07-29 11:50] LABS: Influenza A Not Detected (Not Detectd); Influenza B Not Detected (Not Detectd); RSV Not Detected (Not Detectd)
[2024-07-29] MEDS: ONDANSETRON 4 MG ODT STARTER PACK 2 TAB BTL PO STA (12:10)
[2024-07-29] MEDS: DIPHENOX-ATROP STARTER PACK 8 TAB BTL PO STA (12:10)
[2024-07-29 12:27] VITALS: BP 116/61; PULSE 52; RESP 16; TEMP 97.2
== END 2024-07-29 14:21 | disposition home or self-care (01) ==
LOC: EC 09:26
DX: K52.9 Noninfective gastroenteritis and colitis, unspecified (principal); I13.11 Hypertensive heart and chronic kidney disease without heart failure, with stage 5 chronic kidney disease, or end stage renal disease; E11.22 Type 2 diabetes mellitus with diabetic chronic kidney disease; I48.91 Unspecified atrial fibrillation; N18.6 End stage renal disease; Z91.013 Allergy to seafood; Z91.048 Other nonmedicinal substance allergy status; Z91.040 Latex allergy status; Z88.8 Allergy status to other drugs, medicaments and biological substances; Z88.5 Allergy status to narcotic agent; Z99.2 Dependence on renal dialysis
CPT/HCPCS: 36415; 80053; 83690; 83735; 85025; 87636; 99284; S0119

== ENCOUNTER 2024-08-11 23:34 | Emergency (ER) | payer MEDICARE, OTHER ==
[2024-08-12 00:10] VITALS: TEMP 98.5
--- NOTE | 2024-08-12 00:30 | ED ---
Arrhythmia/Palpitations HPI - General Chief Complaint: Arrhythmia/Palpitations Stated Complaint: Weakness Time Seen by Provider: 08/11/24 23:52 Source: patient, RN notes reviewed Mode of arrival: EMS Limitations: no limitations - History of Present Illness Initial Comments: This is an 78-year-old female who presents to the emergency department for weakness, shortness of breath, and palpitations. States that around dinner last evening she started to develop shortness of breath with palpitations. That has since started to subside, however she now feels weak. Denies any chest pain, nausea, or vomiting. Reports abdominal discomfort related to ascites building up. Believes that most of her symptoms are related to this. She last had a paracentesis on 08/02 and states that she is supposed to get them every 1.5 weeks. She is currently scheduled to have another one on 08/17. MD Complaint: palpitations - Related Data Home Medications Medication Instructions Recorded Confirmed Sacubitril/Valsartan [Entresto 24 1 tab PO BID 01/12/22 07/23/24 mg-26 mg Tablet] Omeprazole [PriLOSEC] 20 mg PO DAILY 03/05/22 07/23/24 Ipratropium [place] [Atrovent Hfa] 2 puff INHALATION RT-QID 09/09/22 07/23/24 ALPRAZolam [Xanax] 0.25 mg PO TID PRN 05/30/23 07/23/24 Ammonium Lactate Lotion 1 applic TOPICAL BID PRN 05/30/23 07/23/24 [Lac-Hydrin 12% Lotion] Aspirin 81 mg PO DAILY 05/30/23 07/23/24 Atorvastatin [Lipitor] 20 mg PO DAILY 05/30/23 07/23/24 Cholecalciferol [Vitamin D3 (25 25 mcg PO DAILY 05/30/23 07/23/24 Mcg = 1000 Iu)] Escitalopram [Lexapro] 10 mg PO DAILY 05/30/23 07/23/24 Furosemide [Lasix] 80 mg PO DAILY 05/30/23 07/23/24 Insulin Glargine,Hum.rec.anlog 16 - 18 units SQ HS PRN 05/30/23 07/23/24 [Al Reynolds] Insulin Glargine,Hum.rec.anlog 24 units SQ DAILY 05/30/23 07/23/24 [Toubrenda Max Solostar] Multivit-Min/FA/Lycopen/Lutein 1 tab PO DAILY 05/30/23 07/23/24 [Centrum Silver Tablet] Albuterol Inhaler [Ventolin Hfa 2 puff INHALATION RT-QID PRN 01/09/24 07/23/24 Inhaler] Ascorbic Acid [Vitamin C] 1,000 mg PO DAILY 01/09/24 07/23/24 Vit C/E/Zn/Coppr/Lutein/Zeaxan 1 cap PO BID 01/09/24 07/23/24 [Preservision Areds 2 Softgel] Menthol-Zinc Oxide Oint 1 applic TOPICAL DIRECTED 03/03/24 07/23/24 [Calmoseptine Ointment] Periguard Ointment 1 applic TOPICAL DIRECTED 03/03/24 07/23/24 Vits A and D/White Pet/Lanolin [A 1 applic TOPICAL DAILY PRN 03/03/24 07/23/24 and D Ointment] traMADol HCL 50 mg PO TID PRN 05/20/24 07/23/24 Midodrine [ProAmatine] 10 mg PO AC-TID PRN 06/17/24 07/23/24 Darbepoetin Fernando [Aranesp] 60 mcg SQ DIRECTED 07/23/24 07/23/24 Previous Rx's Medication Instructions Recorded Magnesium Oxide [Mag-Ox] 400 mg PO DAILY #30 tab 01/16/24 Nystatin 100,000Unit/gm Cream 1 applic TOPICAL BID #60 g 01/16/24 [Mycostatin Cream] Sodium Bicarbonate Tab 650 mg PO BID #60 tab 01/16/24 Apixaban [Eliquis] 2.5 mg PO BID #60 tab 07/14/24 Metoprolol Succinate (ER) [Toprol 25 mg PO BID #60 tab 07/14/24 XL] Midodrine [ProAmatine] 10 mg PO AC-TID #90 tab 07/14/24 Ondansetron Odt [Zofran Odt] 4 mg PO Q8HR PRN #15 tab 07/29/24 Allergies Allergy/AdvReac Type Severity Reaction Status Date / Time shellfish derived [Shellfish] Allergy Severe vomiting Verified 08/12/24 00:11 -very ill adhesive Allergy skin red Verified 08/12/24 00:11 and murguia, tears skin aluminum Allergy skin turns Verified 08/12/24 00:11 black, passes out Antihistamines - Allergy heart Verified 08/12/24 00:11 Ethylenediamine palpitations codeine Allergy migraines Verified 08/12/24 00:11 epinephrine Allergy heart Verified 08/12/24 00:11 palpitations fluticasone [From Flonase] Allergy Unknown Verified 08/12/24 00:11 hydrogen peroxide Allergy murguia and Verified 08/12/24 00:11 causes infection latex Allergy passes out Verified 08/12/24 00:11 nickel Allergy turns skin Verified 08/12/24 00:11 black and passes out procaine HCl [From Novocain] Allergy passed Verified 08/12/24 00:11 out- due to epinephrine in it. thiopental sodium Allergy needed cpr Verified 08/12/24 00:11 [From Pentothal] resusitation insulin glargine AdvReac Intermediate Diarrhea, Verified 08/12/24 00:11 [From Lantus U-100 Insulin] Vomiting, upset stomach iron AdvReac Nausea Verified 08/12/24 00:11 methocarbamol [From Robaxin] AdvReac Hallucinati Verified 08/12/24 00:11 ons zinc oxide AdvReac Rash/Hives Verified 08/12/24 00:11 surgical felicita Allergy Severe had to be Uncoded 08/12/24 00:11 removed 2 days post-op petroleum products AdvReac passes out Uncoded 08/12/24 00:11 or does not feel well. (diesel, oils) Review of Systems ROS Statement: Those systems with pertinent positive or pertinent negative responses have been documented in the HPI. ROS Other: All systems not noted in ROS Statement are negative. Past Medical History Past Medical History: Atrial Fibrillation, Coronary Artery Disease (CAD), CVA/TIA, Diabetes Mellitus, Dialysis, Deep Vein Thrombosis (DVT), Hypertension, Myocardial Infarction ([place]), Osteoarthritis (OA) Additional Past Medical History / Comment(s): hx tia, hx stroke behind left eye., lt eye macular , states hospitalized with Covid April 2019 with life support and stage 3 kidney failure., hx of fall with hip fx and surgery 01/13/22 went to [facility] for Rehab. DVT during ., varicose veins, states painful sore left heel., hx of [place] as a child with scarring on lungs. dialysis since 04/2024, and friday Last Myocardial Infarction Date:: unknown date History of Any Multi-Drug Resistant Organisms: MRSA, VRE Date of last positivie culture/infection: 09/09/22 MRSA & VRE ([facility]-Scanned) MDRO Source:: Blood Culture Past Surgical History: Adenoidectomy, Hysterectomy, Orthopedic Surgery, Tonsillectomy, Tubal Ligation Additional Past Surgical History / Comment(s): pilonidal cyst twice as child, rt knee arthroscopy, krystyna cataracts, krystyna great toe sx, ORIF Left hip (01/13/22) Past Anesthesia/Blood Transfusion Reactions: Previous Problems w/ Anesthesia, Postoperative Nausea & Vomiting (PONV) Additional Past Anesthesia/Blood Transfusion Reaction / Comment(s): difficulty waking up after sx. clausterphobia. 1960 blood transfusion(during child ) pt stated had palpitations after 2nd unit given Past Psychological History: Anxiety Smoking Status: Never smoker Past Alcohol Use History: None Reported Past Drug Use History: None Reported - Past Family History Mother Family Medical History: Cancer Additional Family Medical History / Comment(s): lung cancer Father Family Medical History: Coronary Artery Disease (CAD) Additional Family Medical History / Comment(s): heart disease, kidney disese General Exam Limitations: no limitations General appearance: alert, in no apparent distress Head exam: Present: atraumatic, normocephalic, normal inspection Respiratory exam: Present: normal lung sounds bilaterally. Absent: respiratory distress, wheezes, rales, rhonchi, stridor Cardiovascular Exam: Present: regular rate, normal rhythm GI/Abdominal exam: Absent: distended, tenderness Neurological exam: Present: alert, oriented X3, CN II-XII intact Psychiatric exam: Present: normal affect, normal mood Skin exam: Present: warm, dry, intact, normal color. Absent: rash Course Vital Signs 08/11/24 08/12/24 08/12/24 23:51 02:27 03:00 Temperature 98.5 F Pulse Rate 77 69 78 Respiratory 18 18 18 Rate Blood Pressure 95/60 93/52 102/74 O2 Sat by Pulse 99 97 95 Oximetry 08/12/24 04:37 Temperature Pulse Rate 74 Respiratory 16 Rate Blood Pressure 94/59 O2 Sat by Pulse 96 Oximetry Medical Decision Making - Medical Decision Making This is an 78-year-old female who presents to the emergency department for palpitations and shortness of breath. Was pt. sent in by a medical professional or institution? @ -No Did you speak to anyone other than the patient for history? @ -No Did you review nursing and triage notes? @ -Yes, and I agree, it is accurate with regards to the patient's symptoms. Were old charts reviewed? @ -No Differential Diagnosis? @ -Differential Palpitations Ventricular arrhythmias, atrial arrhythmias, myocardial infarction, anemia, thyrotoxicosis, electrolyte imbalance, hypokalemia, pulmonary embolism, pulmonary disease, drugs, alcohol, anxiety, stress.... This is not meant to be an all-inclusive list. EKG interpreted by me (3pts min.)? @ -EKG interpreted by me demonstrating the following: Sinus rhythm. Ventricular rate 60 bpm, IA interval 197 ms, QRS duration 125 ms, QTc 437 ms. X-rays interpreted by me (1pt min.)? @ -Chest x-ray obtained. My interpretation identifies pulmonary vascular congestion. CT interpreted by me (1pt min.)? @ -Not obtained U/S interpreted by me (1pt. min.)? @ -Not obtained What testing was considered but not performed? (CT, X-rays, U/S, labs)? Why? @ -None What meds were considered but not given? Why? @ -None Did you discuss the management of the patient with other professionals? @ -Yes, Dr. Shirley, who advised that because she is not hypoxic and has adequate respirations and abdomen is not severely distended, she can be discharged home to follow-up outpatient. Did you reconcile home meds? @ -No Was smoking cessation discussed for >3mins.? @ -No Was critical care preformed (if so, how long)? @ -No Were there social determinants of health that impacted care today? How? (Homelessness, low income, unemployed, alcoholism, drug addiction, transportation, low edu. Level, literacy, decrease access to med. care, long term, rehab)? @ -No Was there de-escalation of care discussed even if they declined? (Discuss DNR or withdrawal of care, Hospice)? @ -No What co-morbidities impacted this encounter? (DM, HTN, Smoking, COPD, CAD, Cancer, CVA, Hep., AIDS, mental health diagnosis, sleep apnea, morbid obesity)? @ -A-fib, CAD, DM, ESRD on dialysis Was patient admitted / discharged? @ -Discharged. Lab work demonstrates anemia with a hemoglobin of 8, which is similar when compared with prior values. Renal insufficiency is stable when compared with prior and consistent with patient's history of ESRD on dialysis. BNP elevated at 4940. COVID, influenza, and RSV testing negative. Chest x-ray demonstrates mild pulmonary vascular congestion. When discussing disposition with the patient, I had wanted to discharge her home. However, states that she wants to have a paracentesis done sooner and believes all of her symptoms be related to the ascites. She does have one scheduled on 08/17. She is not hypoxic and her abdomen is not severely distended. Case discussed with patient's PCP, who advised that she could be discharged home given that she is stable. This was discussed with the patient who is agreeable to this. Advised she follow-up for her paracentesis and dialysis as scheduled. Patient discharged home in stable condition. Case discussed with ED attending Dr. Sampson. Return precautions reviewed in depth, the patient is instructed to return to the emergency department with any new, worsening, or concerning symptoms. Patient verbalized understanding. Undiagnosed new problem with uncertain prognosis? @ -None Drug Therapy requiring intensive monitoring for toxicity (Heparin, Nitro, Insulin, Cardizem)? @ -None Were any procedures done? @ -None Diagnosis/symptom? @ -Dyspnea, palpitations Acute, or Chronic, or Acute on Chronic? @ -Acute Uncomplicated (without systemic symptoms) or Complicated (systemic symptoms)? @ -Uncomplicated Side effects of treatment? @ -None Exacerbation, Progression, or Severe Exacerbation] @ -Not applicable Poses a threat to life or bodily function? @ -No - Lab Data Result diagrams: 08/12/24 01:03 08/12/24 01:03 Lab Results 08/12/24 08/12/24 08/12/24 Range/Units 00:44 01:03 01:03 WBC 9.50 (4.50-10.00) 10*3/uL RBC 3.15 L (4.10-5.20) 10*6/uL Hgb 8.0 L D (12.0-15.0) g/dL Hct 26.5 L (37.2-46.3) % MCV 84.1 (80.0-97.0) fL MCH 25.4 L (27.0-32.0) pg MCHC 30.2 L (32.0-37.0) g/dL Plt Count 144 (140-440) 10*3/uL MPV 10.1 (9.5-12.2) fL Immature Gran % (Auto) 0.3 % Neutrophils % 63.6 % Lymphocytes % 21.7 % Monocytes % 6.8 % Eosinophils % 6.9 % Basophils % 0.7 % Immature Gran # 0.03 (0.00-0.04) 10*3/uL Neutrophils # 6.03 (1.80-7.70) 10*3/uL Lymphocytes # 2.06 (0.90-5.00) 10*3/uL Monocytes # 0.65 (0.20-1.00) 10*3/uL Eosinophils # 0.66 H (0.04-0.35) 10*3/uL Basophils # 0.07 (0.00-0.10) 10*3/uL PT 11.5 (10.0-12.5) sec INR 1.1 (<1.2) APTT 25.7 (22.0-30.0) sec Sodium (137-145) mmol/L Potassium (3.5-5.1) mmol/L Chloride (98-107) mmol/L Carbon Dioxide (22-30) mmol/L Anion Gap mmol/L BUN (7-17) mg/dL Creatinine (0.52-1.04) mg/dL Est GFR (CKD-EPI)AfAm (>60 ml/min/1.73 sqM) Est GFR (CKD-EPI)NonAf (>60 ml/min/1.73 sqM) Glucose (74-99) mg/dL Calcium (8.4-10.2) mg/dL Magnesium (1.6-2.3) mg/dL Total Bilirubin (0.2-1.3) mg/dL AST (14-36) U/L ALT (4-34) U/L Alkaline Phosphatase (38-126) U/L Troponin I (0.000-0.034) ng/mL NT-Pro-B Natriuret Pep pg/mL Total Protein (6.3-8.2) g/dL Albumin (3.5-5.0) g/dL Influenza Type A (PCR) Not Detected (Not Detectd) Influenza Type B (PCR) Not Detected (Not Detectd) RSV (PCR) Not Detected (Not Detectd) SARS-CoV-2 (PCR) Not Detected (Not Detectd) 08/12/24 08/12/24 08/12/24 Range/Units 01:03 01:03 01:03 WBC (4.50-10.00) 10*3/uL RBC (4.10-5.20) 10*6/uL Hgb (12.0-15.0) g/dL Hct (37.2-46.3) % MCV (80.0-97.0) fL MCH (27.0-32.0) pg MCHC (32.0-37.0) g/dL Plt Count (140-440) 10*3/uL MPV (9.5-12.2) fL Immature Gran % (Auto) % Neutrophils % % Lymphocytes % % Monocytes % % Eosinophils % % Basophils % % Immature Gran # (0.00-0.04) 10*3/uL Neutrophils # (1.80-7.70) 10*3/uL Lymphocytes # (0.90-5.00) 10*3/uL Monocytes # (0.20-1.00) 10*3/uL Eosinophils # (0.04-0.35) 10*3/uL Basophils # (0.00-0.10) 10*3/uL PT (10.0-12.5) sec INR (<1.2) APTT (22.0-30.0) sec Sodium 134 L (137-145) mmol/L Potassium 5.1 (3.5-5.1) mmol/L Chloride 97 L (98-107) mmol/L Carbon Dioxide 28 (22-30) mmol/L Anion Gap 9 mmol/L BUN 37 H (7-17) mg/dL Creatinine 3.79 H (0.52-1.04) mg/dL Est GFR (CKD-EPI)AfAm 12 (>60 ml/min/1.73 sqM) Est GFR (CKD-EPI)NonAf 11 (>60 ml/min/1.73 sqM) Glucose 120 H (74-99) mg/dL Calcium 8.4 (8.4-10.2) mg/dL Magnesium 3.0 H (1.6-2.3) mg/dL Total Bilirubin 0.9 (0.2-1.3) mg/dL AST 49 H (14-36) U/L ALT 17 (4-34) U/L Alkaline Phosphatase 93 (38-126) U/L Troponin I <0.012 (0.000-0.034) ng/mL NT-Pro-B Natriuret Pep 4940 pg/mL Total Protein 6.1 L (6.3-8.2) g/dL Albumin 2.8 L (3.5-5.0) g/dL Influenza Type A (PCR) (Not Detectd) Influenza Type B (PCR) (Not Detectd) RSV (PCR) (Not Detectd) SARS-CoV-2 (PCR) (Not Detectd) - Radiology Data Radiology results: report reviewed, image reviewed Disposition Clinical Impression: Dyspnea, Palpitations Disposition: HOME SELF-CARE Instructions (If sedation given, give patient instructions): Heart Palpitations (ED) Additional Instructions: Return to the emergency department with any new, worsening, or concerning symptoms. Follow up with your primary care provider in 1-2 days. Is patient prescribed a controlled substance at d/c from ED?: No Referrals: Luis Shirley MD [Primary Care Provider] - 1-2 days Time of Disposition: 04:44
[2024-08-12 01:24] LABS: Basophils # (A) 0.07 10*3/uL (0.00-0.10); Basophils % (A) 0.7 %; Eosinophils # (A) 0.66 10*3/uL (0.04-0.35); Eosinophils % (A) 6.9 %; HCT 26.5 % (37.2-46.3); Lymphocytes # (A) 2.06 10*3/uL (0.90-5.00); Lymphocytes % (A) 21.7 %; MCH 25.4 pg (27.0-32.0); MCHC 30.2 g/dL (32.0-37.0); MCV 84.1 fL (80.0-97.0); Mean Platelet Volume 10.1 fL (9.5-12.2); Monocytes # (A) 0.65 10*3/uL (0.20-1.00); Monocytes % (A) 6.8 %; Neutrophils # (A) 6.03 10*3/uL (1.80-7.70); Neutrophils % (A) 63.6 %; Platelet Count 144 10*3/uL (140-440); RBC 3.15 10*6/uL (4.10-5.20); RDW 20.6 % (11.5-14.5)
[2024-08-12 01:25] LABS: Influenza A Not Detected (Not Detectd); Influenza B Not Detected (Not Detectd); RSV Not Detected (Not Detectd)
[2024-08-12 01:30] LABS: ALT 17 U/L (4-34); African American GFR (CKD) 12 (>60 ml/min/1.73 sqM); Albumin 2.8 g/dL (3.5-5.0); Anion Gap 9 mmol/L; Blood Urea Nitrogen 37 mg/dL (7-17); Calcium 8.4 mg/dL (8.4-10.2); Carbon Dioxide 28 mmol/L (22-30); Chloride 97 mmol/L (98-107); Glucose 120 mg/dL (74-99); Non-African American GFR(CKD) 11 (>60 ml/min/1.73 sqM); Sodium 134 mmol/L (137-145); Total Bilirubin 0.9 mg/dL (0.2-1.3); Total Protein 6.1 g/dL (6.3-8.2)
[2024-08-12 01:35] LABS: INR 1.1 (<1.2); Partial Thromboplastin Time 25.7 sec (22.0-30.0); Prothrombin Time 11.5 sec (10.0-12.5)
[2024-08-12 01:54] LABS: AST 49 U/L (14-36); Alkaline Phosphatase 93 U/L (38-126); Potassium 5.1 mmol/L (3.5-5.1)
--- NOTE | 2024-08-12 03:47 | XR ---
EXAM: XR Chest, 2 Views CLINICAL HISTORY: ITS.REASON XR Reason: dysrhythmia TECHNIQUE: Frontal and lateral views of the chest. COMPARISON: No relevant prior studies available. IMPRESSION: Cardiomegaly. Mild vascular congestion
[2024-08-12 04:38] VITALS: BP 94/59; PULSE 74; RESP 16
== END 2024-08-12 05:30 | disposition home or self-care (01) ==
LOC: EC 23:34
DX: R06.00 Dyspnea, unspecified (principal); R00.2 Palpitations; I48.91 Unspecified atrial fibrillation; I25.10 Atherosclerotic heart disease of native coronary artery without angina pectoris; E11.9 Type 2 diabetes mellitus without complications; N18.6 End stage renal disease; Z99.2 Dependence on renal dialysis; Z86.73 Personal history of transient ischemic attack (TIA), and cerebral infarction without residual deficits; Z91.040 Latex allergy status; Z88.8 Allergy status to other drugs, medicaments and biological substances
CPT/HCPCS: 36415; 71046; 80053; 83735; 83880; 84484; 85025; 85610; 85730; 87636; 93005; 99285

== ENCOUNTER 2024-08-21 09:32 | Inpatient (IN) | payer MEDICARE, OTHER ==
--- NOTE | 2024-08-21 11:07 | XR ---
EXAMINATION TYPE: XR chest 2V DATE OF EXAM: 08/21/2024 11:02 AM COMPARISON: Chest radiographs from 08/12/2024 TECHNIQUE: XR chest 2V Frontal and lateral views of the chest. CLINICAL INDICATION:Female, 78 years old with history of difficulty breathing; FINDINGS: Lungs/Pleura: There is no evidence of pleural effusion, focal consolidation, or pneumothorax. Pulmonary vascularity: Mild pulmonary vascular congestion. Heart/mediastinum: Cardiomediastinal silhouette is enlarged and stable. Musculoskeletal: Multiple level degenerative disc disease changes seen throughout the spine. Other findings: None Lines/Tubes: Right IJ 2 lumen hemodialysis catheter with distal tip at the superior cavoatrial junction. IMPRESSION: Cardiomegaly and mild pulmonary vascular congestion. Correlate with BNP for congestive heart failure/ volume overload. [facility], , 08/21/2024 11:05 AM
[2024-08-21 11:10] LABS: Basophils # (A) 0.05 10*3/uL (0.00-0.10); Basophils % (A) 0.5 %; Eosinophils % (A) 4.3 %; HCT 24.1 % (37.2-46.3); Lymphocytes # (A) 1.56 10*3/uL (0.90-5.00); Lymphocytes % (A) 16.7 %; MCHC 27.8 g/dL (32.0-37.0); MCV 86.4 fL (80.0-97.0); Mean Platelet Volume 10.2 fL (9.5-12.2); Monocytes # (A) 0.85 10*3/uL (0.20-1.00); Monocytes % (A) 9.1 %; Neutrophils # (A) 6.45 10*3/uL (1.80-7.70); Neutrophils % (A) 69.1 %; Platelet Count 221 10*3/uL (140-440); RBC 2.79 10*6/uL (4.10-5.20); RDW 19.2 % (11.5-14.5); WBC 9.34 10*3/uL (4.50-10.00)
[2024-08-21 11:15] LABS: INR 1.2 (<1.2); Prothrombin Time 12.8 sec (10.0-12.5)
--- NOTE | 2024-08-21 11:17 | ED ---
General Adult HPI - General Chief complaint: Recheck/Abnormal Lab/Rx Stated complaint: SOB Time Seen by Provider: 08/21/24 09:45 Source: patient Mode of arrival: EMS Limitations: no limitations - History of Present Illness Initial comments: 78-year-old female with past medical history of end-stage renal disease on hemodialysis, heart failure who presents to the emergency department under the direction of dialysis. She had dialysis yesterday and typically gets treatments Friday, Friday and Friday. They liz labs at the end of her dialysis session and found that the patient was anemic. Reports that she frequently has anemia due to her chronic kidney disease and has required transfusions before in the past. They recommended that the patient go to the hospital for transfusion. Patient is admitting to increased lower extremity swelling, shortness of breath and chest tightness. She does not make urine. Patient also has paracenteses every other week however has not had one since July 24. Admits to abdominal distention. Admits to weeping from her bilateral lower extremities. No fevers. Denies any black or bloody stools. - Related Data Home Medications Medication Instructions Recorded Confirmed Sacubitril/Valsartan [Entresto 24 1 tab PO BID 01/12/22 08/21/24 mg-26 mg Tablet] Omeprazole [PriLOSEC] 20 mg PO DAILY 03/05/22 08/21/24 Ipratropium [place] [Atrovent Hfa] 2 puff INHALATION RT-QID 09/09/22 08/21/24 ALPRAZolam [Xanax] 0.25 mg PO TID PRN 05/30/23 08/21/24 Ammonium Lactate Lotion 1 applic TOPICAL BID PRN 05/30/23 08/21/24 [Lac-Hydrin 12% Lotion] Aspirin 81 mg PO DAILY 05/30/23 08/21/24 Atorvastatin [Lipitor] 20 mg PO DAILY 05/30/23 08/21/24 Cholecalciferol [Vitamin D3 (25 25 mcg PO DAILY 05/30/23 08/21/24 Mcg = 1000 Iu)] Escitalopram [Lexapro] 10 mg PO DAILY 05/30/23 08/21/24 Furosemide [Lasix] 80 mg PO DAILY 05/30/23 08/21/24 Insulin Glargine,Hum.rec.anlog 16 - 18 units SQ HS PRN 05/30/23 08/21/24 [[place]ou[place] Max Solostar] Insulin Glargine,Hum.rec.anlog 24 units SQ DAILY 05/30/23 08/21/24 [Toujeo Max Solostar] Multivit-Min/FA/Lycopen/Lutein 1 tab PO DAILY 05/30/23 08/21/24 [Centrum Silver Tablet] Albuterol Inhaler [Ventolin Hfa 2 puff INHALATION RT-QID PRN 01/09/24 08/21/24 Inhaler] Ascorbic Acid [Vitamin C] 1,000 mg PO DAILY 01/09/24 08/21/24 Vit C/E/Zn/Coppr/Lutein/Zeaxan 1 cap PO BID 01/09/24 08/21/24 [Preservision Areds 2 Softgel] Periguard Ointment 1 applic TOPICAL DIRECTED 03/03/24 08/21/24 Vits A and D/White Pet/Lanolin [A 1 applic TOPICAL DAILY PRN 03/03/24 08/21/24 and D Ointment] traMADol HCL 50 mg PO TID PRN 05/20/24 08/21/24 Previous Rx's Medication Instructions Recorded Magnesium Oxide [Mag-Ox] 400 mg PO DAILY #30 tab 01/16/24 Nystatin 100,000Unit/gm Cream 1 applic TOPICAL BID #60 g 01/16/24 [Mycostatin Cream] Sodium Bicarbonate Tab 650 mg PO BID #60 tab 01/16/24 Apixaban [Eliquis] 2.5 mg PO BID #60 tab 07/14/24 Metoprolol Succinate (ER) [Toprol 25 mg PO BID #60 tab 07/14/24 XL] Midodrine [ProAmatine] 10 mg PO AC-TID #90 tab 07/14/24 Ondansetron Odt [Zofran ODT] 4 mg PO Q8HR PRN #15 tab 07/29/24 Calcium Carbonate [Tums] 1,000 mg PO Q4HR PRN tab 08/27/24 Ciprofloxacin HCl [Cipro] 500 mg PO DAILY #20 tab 08/27/24 Darbepoetin Fernando [Aranesp] 60 mcg SQ Q7D 28 Days each 08/27/24 HYDROcodone/APAP 5-325MG [Lucernemines 1 each PO Q6H PRN #120 tab 08/27/24 5-325] Mag Hydrox/Al Hydrox/Simeth 15 ml PO Q6HR PRN ml 08/27/24 [Maalox] Sulfamethox-Tmp 800-160Mg [Bactrim 1 each PO DAILY #20 tab 08/27/24 DS 800-160 mg] Allergies Allergy/AdvReac Type Severity Reaction Status Date / Time shellfish derived [Shellfish] Allergy Severe vomiting Verified 09/04/24 10:14 -very ill adhesive Allergy skin red Verified 09/04/24 10:14 and murguia, tears skin aluminum Allergy skin turns Verified 09/04/24 10:14 black, passes out Antihistamines - Allergy heart Verified 09/04/24 10:14 Ethylenediamine palpitations codeine Allergy migraines Verified 09/04/24 10:14 epinephrine Allergy heart Verified 09/04/24 10:14 palpitations fluticasone [From Flonase] Allergy Unknown Verified 09/04/24 10:14 hydrogen peroxide Allergy murguia and Verified 09/04/24 10:14 causes infection latex Allergy passes out Verified 09/04/24 10:14 nickel Allergy turns skin Verified 09/04/24 10:14 black and passes out procaine HCl [From Novocain] Allergy passed Verified 09/04/24 10:14 out- due to epinephrine in it. thiopental sodium Allergy needed cpr Verified 09/04/24 10:14 [From Pentothal] resusitation insulin glargine AdvReac Intermediate Diarrhea, Verified 09/04/24 10:14 [From Lantus U-100 Insulin] Vomiting, upset stomach iron AdvReac Nausea Verified 09/04/24 10:14 methocarbamol [From Robaxin] AdvReac Hallucinati Verified 09/04/24 10:14 ons zinc oxide AdvReac Rash/Hives Verified 09/04/24 10:14 surgical felicita Allergy Severe had to be Uncoded 09/04/24 10:14 removed 2 days post-op petroleum products AdvReac passes out Uncoded 09/04/24 10:14 or does not feel well. (diesel, oils) Review of Systems ROS Statement: Those systems with pertinent positive or pertinent negative responses have been documented in the HPI. ROS Other: All systems not noted in ROS Statement are negative. Past Medical History Past Medical History: Atrial Fibrillation, Coronary Artery Disease (CAD), CVA/TIA, Diabetes Mellitus, Dialysis, Deep Vein Thrombosis (DVT), Hypertension, Myocardial Infarction (PA), Osteoarthritis (OA) Additional Past Medical History / Comment(s): hx tia, hx stroke behind left eye., lt eye macular , states hospitalized with Covid April 2019 with life support and stage 3 kidney failure., hx of fall with hip fx and surgery 01/13/22 went to [facility] for Rehab. DVT during ., varicose veins, states painful sore left heel., hx of t.b. as a child with scarring on lungs. dialysis since 04/2024, and friday Last Myocardial Infarction Date:: unknown date History of Any Multi-Drug Resistant Organisms: MRSA, VRE Date of last positivie culture/infection: 09/09/22 MRSA & VRE ([facility]-Scanned) MDRO Source:: Blood Culture Past Surgical History: Adenoidectomy, Hysterectomy, Orthopedic Surgery, Tonsillectomy, Tubal Ligation Additional Past Surgical History / Comment(s): pilonidal cyst twice as child, rt knee arthroscopy, krystyna cataracts, krystyna great toe sx, ORIF Left hip (01/13/22) Past Anesthesia/Blood Transfusion Reactions: Previous Problems w/ Anesthesia, Postoperative Nausea & Vomiting (PONV) Additional Past Anesthesia/Blood Transfusion Reaction / Comment(s): difficulty waking up after sx. clausterphobia. 1960 blood transfusion(during child ) pt stated had palpitations after 2nd unit given Past Psychological History: Anxiety Smoking Status: Never smoker Past Alcohol Use History: None Reported Past Drug Use History: None Reported - Past Family History Mother Family Medical History: Cancer Additional Family Medical History / Comment(s): lung cancer Father Family Medical History: Coronary Artery Disease (CAD) Additional Family Medical History / Comment(s): heart disease, kidney disese General Exam Limitations: no limitations General appearance: alert, in no apparent distress, obese Head exam: Present: atraumatic, normocephalic, normal inspection Eye exam: Present: normal appearance, PERRL, EOMI. Absent: scleral icterus, conjunctival injection, periorbital swelling ENT exam: Present: normal exam, mucous membranes moist Neck exam: Present: normal inspection. Absent: tenderness, meningismus, lymphadenopathy Respiratory exam: Present: normal lung sounds bilaterally. Absent: respiratory distress, wheezes, rales, rhonchi, stridor Cardiovascular Exam: Present: regular rate, normal rhythm, normal heart sounds. Absent: systolic murmur, diastolic murmur, rubs, gallop, clicks GI/Abdominal exam: Present: soft, distended Extremities exam: Present: pedal edema Course Vital Signs 08/21/24 08/21/24 08/21/24 09:39 09:51 11:08 Temperature 98.9 F Pulse Rate 82 70 Pulse Rate [ 70 [facility] ] Respiratory 19 17 Rate Blood Pressure 115/58 104/59 Blood Pressure [Right Arm] O2 Sat by Pulse 98 98 Oximetry 08/21/24 08/21/24 08/21/24 12:33 13:52 14:48 Temperature 98.6 F Pulse Rate 68 61 69 Pulse Rate [ [facility] ] Respiratory 17 19 18 Rate Blood Pressure 106/47 110/57 128/62 Blood Pressure [Right Arm] O2 Sat by Pulse 100 97 99 Oximetry 08/21/24 08/21/24 08/21/24 15:06 15:26 17:10 Temperature 98.6 F 98.1 F Pulse Rate 64 63 61 Pulse Rate [ [facility] ] Respiratory 17 18 18 Rate Blood Pressure 129/65 128/54 96/59 Blood Pressure [Right Arm] O2 Sat by Pulse 100 98 Oximetry 08/21/24 08/21/24 08/21/24 17:41 18:12 18:34 Temperature 97.8 F 97 F L Pulse Rate 73 65 Pulse Rate [ 82 [facility] ] Respiratory 16 18 16 Rate Blood Pressure 89/62 100/61 Blood Pressure 100/66 [Right Arm] O2 Sat by Pulse 100 99 99 Oximetry 08/21/24 19:32 Temperature 98.4 F Pulse Rate 82 Pulse Rate [ [facility] ] Respiratory 18 Rate Blood Pressure 111/73 Blood Pressure [Right Arm] O2 Sat by Pulse 99 Oximetry Medical Decision Making - Medical Decision Making Was pt. sent in by a medical professional or institution (, PA, PROJECT ANALYST, urgent care, hospital, or senior care...) When possible be specific @ -Patient was sent in from dialysis Did you speak to anyone other than the patient for history (EMS, parent, family, police, friend...)? What history was obtained from this source @ -Spoke with EMS for history Did you review nursing and triage notes (agree or disagree)? Why? @ -I reviewed and agree with nursing and triage notes Were old charts reviewed (outside hosp., previous admission, EMS record, old EKG, old radiological studies, urgent care reports/EKG's, senior care records)? Report findings @ -No old charts were reviewed Differential Diagnosis (chest pain, altered mental status, abdominal pain women, abdominal pain men, vaginal bleeding, weakness, fever, dyspnea, syncope, headache, dizziness, GI bleed, back pain, seizure, CVA, palpatations, mental health, musculoskeletal)? @ -Differential Weakness: Hypoglycemia, shock, sepsis, hyponatremia, anemia, infection, PA, ETOH, adverse medicine reaction, overdose, stroke, this is not meant to be an all-inclusive list. EKG interpreted by me (3pts min.). @ -Yes and demonstrates A-fib with a rate of 77. QRS 126. QTc of 439. No acute ST segment elevations or depressions X-rays interpreted by me (1pt min.). @ -Yes which demonstrates pulmonary vascular congestion CT interpreted by me (1pt min.). @ -None done U/S interpreted by me (1pt. min.). @ -None done What testing was considered but not performed or refused? (CT, X-rays, U/S, labs)? Why? @ -None What meds were considered but not given or refused? Why? @ -Diuretics however patient does not make urine Did you discuss the management of the patient with other professionals (professionals i.e. , PA, PROJECT ANALYST, lab, RT, psych nurse, social service manager, senior business broker, teacher, submarine advisory team watch officer, special education case manager)? Give summary @ -Spoke with Dr. Galicia for the admission Was smoking cessation discussed for >3mins.? @ -No Was critical care preformed (if so, how long)? @ -Yes, 35 minutes for blood product transfusion Were there social determinants of health that impacted care today? How? (Homelessness, low income, unemployed, alcoholism, drug addiction, transportation, low edu. Level, literacy, decrease access to med. care, residential, rehab)? @ -No Was there de-escalation of care discussed even if they declined (Discuss DNR or withdrawal of care, Hospice)? DNR status @ -No What co-morbidities impacted this encounter? (DM, HTN, Smoking, COPD, CAD, Cancer, CVA, ARF, Chemo, Hep., AIDS, mental health diagnosis, sleep apnea, morbid obesity)? @ -End-stage renal disease on hemodialysis Was patient admitted / discharged? Hospital course, mention meds given and route, prescriptions, significant lab abnormalities, going to OR and other pertinent info. @ -Upon arrival patient seen and evaluated in room 1. Thorough history and physical exam was performed. Laboratory studies were repeated. Patient will be transfused. She will require dialysis as she already appears volume overloaded. Patient admitted to Dr. Jackson Undiagnosed new problem with uncertain prognosis? @ -No Drug Therapy requiring intensive monitoring for toxicity (Heparin, Nitro, Insulin, Cardizem)? @ -No Were any procedures done? @ -No Diagnosis/symptom? @ -Acute anemia status post 1 unit PRBC, end-stage renal disease on hemod ialysis, pulmonary vascular congestion Acute, or Chronic, or Acute on Chronic? @ -Acute on chronic Uncomplicated (without systemic symptoms) or Complicated (systemic symptoms)? @ -Complicated Side effects of treatment? @ -Worsening volume overload Exacerbation, Progression, or Severe Exacerbation? @ -Yes Poses a threat to life or bodily function? How? (Chest pain, USA, PA, pneumonia, PE, COPD, DKA, ARF, appy, cholecystitis, CVA, Diverticulitis, Homicidal, Suicidal, threat to staff... and all critical care pts) @ -Yes this patient does require blood products - Lab Data Result diagrams: 08/27/24 06:15 08/27/24 06:15 Lab Results 08/21/24 08/21/24 08/21/24 Range/Units 10:50 10:50 10:50 WBC 9.34 (4.50-10.00) 10*3/uL RBC 2.79 L (4.10-5.20) 10*6/uL Hgb 6.7 L* (12.0-15.0) g/dL Hct 24.1 L (37.2-46.3) % MCV 86.4 (80.0-97.0) fL MCH 24.0 L (27.0-32.0) pg MCHC 27.8 L (32.0-37.0) g/dL Plt Count 221 (140-440) 10*3/uL MPV 10.2 (9.5-12.2) fL Immature Gran % (Auto) 0.3 % Neutrophils % 69.1 % Lymphocytes % 16.7 % Monocytes % 9.1 % Eosinophils % 4.3 % Basophils % 0.5 % Immature Gran # 0.03 (0.00-0.04) 10*3/uL Neutrophils # 6.45 (1.80-7.70) 10*3/uL Lymphocytes # 1.56 (0.90-5.00) 10*3/uL Monocytes # 0.85 (0.20-1.00) 10*3/uL Eosinophils # 0.40 H (0.04-0.35) 10*3/uL Basophils # 0.05 (0.00-0.10) 10*3/uL PT 12.8 H (10.0-12.5) sec INR 1.2 H (<1.2) APTT (22.0-30.0) sec Sodium (137-145) mmol/L Potassium (3.5-5.1) mmol/L Chloride (98-107) mmol/L Carbon Dioxide (22-30) mmol/L Anion Gap mmol/L BUN (7-17) mg/dL Creatinine (0.52-1.04) mg/dL Est GFR (CKD-EPI)AfAm (>60 ml/min/1.73 sqM) Est GFR (CKD-EPI)NonAf (>60 ml/min/1.73 sqM) Glucose (74-99) mg/dL Plasma Lactic Acid Jaspreet (0.7-2.0) mmol/L Calcium (8.4-10.2) mg/dL Total Bilirubin (0.2-1.3) mg/dL AST (14-36) U/L ALT (4-34) U/L Alkaline Phosphatase (38-126) U/L Troponin I (0.000-0.034) ng/mL NT-Pro-B Natriuret Pep 5250 pg/mL Total Protein (6.3-8.2) g/dL Albumin (3.5-5.0) g/dL Blood Type Blood Type Recheck Bld Type Recheck Status Antibody Screen Crossmatch Spec Expiration Date 08/21/24 08/21/24 08/21/24 Range/Units 10:50 12:42 12:42 WBC (4.50-10.00) 10*3/uL RBC (4.10-5.20) 10*6/uL Hgb (12.0-15.0) g/dL Hct (37.2-46.3) % MCV (80.0-97.0) fL MCH (27.0-32.0) pg MCHC (32.0-37.0) g/dL Plt Count (140-440) 10*3/uL MPV (9.5-12.2) fL Immature Gran % (Auto) % Neutrophils % % Lymphocytes % % Monocytes % % Eosinophils % % Basophils % % Immature Gran # (0.00-0.04) 10*3/uL Neutrophils # (1.80-7.70) 10*3/uL Lymphocytes # (0.90-5.00) 10*3/uL Monocytes # (0.20-1.00) 10*3/uL Eosinophils # (0.04-0.35) 10*3/uL Basophils # (0.00-0.10) 10*3/uL PT (10.0-12.5) sec INR (<1.2) APTT (22.0-30.0) sec Sodium (137-145) mmol/L Potassium (3.5-5.1) mmol/L Chloride (98-107) mmol/L Carbon Dioxide (22-30) mmol/L Anion Gap mmol/L BUN (7-17) mg/dL Creatinine (0.52-1.04) mg/dL Est GFR (CKD-EPI)AfAm (>60 ml/min/1.73 sqM) Est GFR (CKD-EPI)NonAf (>60 ml/min/1.73 sqM) Glucose (74-99) mg/dL Plasma Lactic Acid Jaspreet 1.6 (0.7-2.0) mmol/L Calcium (8.4-10.2) mg/dL Total Bilirubin (0.2-1.3) mg/dL AST (14-36) U/L ALT (4-34) U/L Alkaline Phosphatase (38-126) U/L Troponin I <0.012 (0.000-0.034) ng/mL NT-Pro-B Natriuret Pep pg/mL Total Protein (6.3-8.2) g/dL Albumin (3.5-5.0) g/dL Blood Type A Positive Blood Type Recheck A Pos Bld Type Recheck Status No Antibody Screen NEGATIVE Crossmatch See Detail Spec Expiration Date 08/24/2024 - 234108/21/24 08/21/24 Range/Units 12:42 13:24 WBC (4.50-10.00) 10*3/uL RBC (4.10-5.20) 10*6/uL Hgb (12.0-15.0) g/dL Hct (37.2-46.3) % MCV (80.0-97.0) fL MCH (27.0-32.0) pg MCHC (32.0-37.0) g/dL Plt Count (140-440) 10*3/uL MPV (9.5-12.2) fL Immature Gran % (Auto) % Neutrophils % % Lymphocytes % % Monocytes % % Eosinophils % % Basophils % % Immature Gran # (0.00-0.04) 10*3/uL Neutrophils # (1.80-7.70) 10*3/uL Lymphocytes # (0.90-5.00) 10*3/uL Monocytes # (0.20-1.00) 10*3/uL Eosinophils # (0.04-0.35) 10*3/uL Basophils # (0.00-0.10) 10*3/uL PT (10.0-12.5) sec INR (<1.2) APTT 25.1 (22.0-30.0) sec Sodium 131 L (137-145) mmol/L Potassium 3.8 (3.5-5.1) mmol/L Chloride 100 (98-107) mmol/L Carbon Dioxide 21 L (22-30) mmol/L Anion Gap 10 mmol/L BUN 52 H (7-17) mg/dL Creatinine 3.69 H (0.52-1.04) mg/dL Est GFR (CKD-EPI)AfAm 13 (>60 ml/min/1.73 sqM) Est GFR (CKD-EPI)NonAf 11 (>60 ml/min/1.73 sqM) Glucose 164 H (74-99) mg/dL Plasma Lactic Acid Jaspreet (0.7-2.0) mmol/L Calcium 8.5 (8.4-10.2) mg/dL Total Bilirubin 0.4 (0.2-1.3) mg/dL AST 25 (14-36) U/L ALT 12 (4-34) U/L Alkaline Phosphatase 84 (38-126) U/L Troponin I (0.000-0.034) ng/mL NT-Pro-B Natriuret Pep pg/mL Total Protein 5.5 L (6.3-8.2) g/dL Albumin 2.5 L (3.5-5.0) g/dL Blood Type Blood Type Recheck Bld Type Recheck Status Antibody Screen Crossmatch Spec Expiration Date Disposition Clinical Impression: Ascites, Anemia, ESRD (end stage renal disease) on dialysis Disposition: ADMITTED IP TO THIS HOSP Condition: Stable Is patient prescribed a controlled substance at d/c from ED?: No Time of Disposition: 13:30 Decision to Admit Reason: Admit from EC Decision Date: 08/21/24 Decision Time: 13:30
[2024-08-21 11:23] LABS: HGB 6.7 g/dL (12.0-15.0)
[2024-08-21 13:25] LABS: ALT 12 U/L (4-34); AST 25 U/L (14-36); African American GFR (CKD) 13 (>60 ml/min/1.73 sqM); Albumin 2.5 g/dL (3.5-5.0); Alkaline Phosphatase 84 U/L (38-126); Anion Gap 10 mmol/L; Blood Urea Nitrogen 52 mg/dL (7-17); Calcium 8.5 mg/dL (8.4-10.2); Carbon Dioxide 21 mmol/L (22-30); Chloride 100 mmol/L (98-107); Glucose 164 mg/dL (74-99); Non-African American GFR(CKD) 11 (>60 ml/min/1.73 sqM); Potassium 3.8 mmol/L (3.5-5.1); Sodium 131 mmol/L (137-145); Total Bilirubin 0.4 mg/dL (0.2-1.3); Total Protein 5.5 g/dL (6.3-8.2)
[2024-08-21] MEDS ORDERED: NALOXONE 0.4 MG/ML 1 ML VIAL IV PRN (13:31)
[2024-08-21] MEDS ORDERED: MAG HYDROX/AL HYDROX/SIMETH 30 ML CUP PO PRN (14:33)
[2024-08-21] MEDS ORDERED: MELATONIN 3 MG TABLET PO PRN (14:33)
[2024-08-21] MEDS ORDERED: ACETAMINOPHEN TAB 325 MG TAB PO PRN (14:33)
[2024-08-21] MEDS ORDERED: CALCIUM CARBONATE 500 MG CHEWABLE PO PRN (14:33)
[2024-08-21] MEDS ORDERED: HYDROcodone/APAP 5-325MG 1 EACH TAB PO PRN (14:33)
--- NOTE | 2024-08-21 14:42 | P.HPIM ---
History of Present Illness H&P Date: 08/21/24 History of present illness; Patient is a 78-year-old lady with past medical history significant for end- stage renal disease on dialysis, hypertension, diabetes mellitus who presents the ER because of abnormal labs. Patient was seen in the hospital in June of this year. Patient stated that she has been noticing that she is getting more short of breath for the last couple of days. Patient also been complaining of abdominal distention, patient normally gets paracentesis and supposed to get 1 next week. Patient denies any nausea vomiting or abdominal pain. Patient denies any blood in the stools. There is no complaint hematemesis. Patient is complaining of swelling of lower extremities which is more than her usual. Patient underwent dialysis yesterday but later got a call from the dialysis clinic that her hemoglobin was low and was told to come to the ER. Initial lab work done in the ER showed WBC 9.34, hemoglobin 6.7, platelet count 221, sodium 131, potassium 3.8, BUN 52, creatinine 3.69, glucose 164 troponin 0.012 EKG done in the ER showed heart rate of 77, irregular rhythm no ST segment elevation or depression seen, no T-wave inversions seen. Chest x-ray done in the ERShowed cardiomegaly and mild pulmonary vascular congestion Patient admitted to internal medicine service REVIEW OF SYSTEMS: CONSTITUTIONAL: No fever, no malaise, no fatigue. HEENT: No recent visual problems or hearing problems. Denied any sore throat. CARDIOVASCULAR: As mentioned above PULMONARY: As mentioned above GASTROINTESTINAL: No diarrhea, no nausea, no vomiting, no abdominal pain. NEUROLOGICAL: No headaches, no weakness, no numbness. HEMATOLOGICAL: Denies any bleeding or petechiae. GENITOURINARY: Denies any burning micturition, frequency, or urgency. MUSCULOSKELETAL/RHEUMATOLOGICAL: Denies any joint pain, swelling, or any muscle pain. ENDOCRINE: Denies any polyuria or polydipsia. The rest of the 14-point review of systems is negative. PHYSICAL EXAMINATION: GENERAL: The patient is alert and oriented x3, ill looking HEENT: Pupils are round and equally reacting to light. EOMI. No scleral icterus. No conjunctival pallor. Normocephalic, atraumatic. No pharyngeal erythema. No thyromegaly. CARDIOVASCULAR: S1 and S2 present. No murmurs, rubs, or gallops. PULMONARY: Chest is clear to auscultation, no wheezing or crackles. ABDOMEN distended, normoactive bowel sounds. No palpable organomegaly. MUSCULOSKELETAL: No joint swelling or deformity. EXTREMITIES: No cyanosis, clubbing, 2+ pitting edema of lower extremities bilaterally NEUROLOGICAL: Gross neurological examination did not reveal any focal deficits. SKIN: No rashes. Assessment and plan Acute on chronic anemia End stage renal disease on , , Friday schedule Ascites from liver cirrhosis requiring frequent paracentesis Chronic atrial fibrillation Hx nonischemic cardiomyopathy Anemia of chronic disease Coronary artery disease Diabetes Mellitus type 2 Hyperlipidemia Hypertension Hx of stroke Monitor vital signs Monitor CBC Monitor CMP Continue telemetry monitoring Ordered anemia workup Ordered FOBT Will transfuse 1 unit of packed red blood cell Hold Eliquis for now till FOBT is done. Will consult nephrology for maintenance dialysis Resume home meds Labs and medication were reviewed.. Continue same treatment. Continue with symptomatic treatment. Resume home medication. Monitor labs and vitals. DVT and GI prophylaxis. Further recommendations as per clinical course of the patient Dictation was produced using Zuffle dictation software. please excuse any gr ammatical, word or spelling errors. Past Medical History Past Medical History: Atrial Fibrillation, Coronary Artery Disease (CAD), CVA/TIA, Diabetes Mellitus, Dialysis, Deep Vein Thrombosis (DVT), Hypertension, Myocardial Infarction ([place]), Osteoarthritis (OA) Additional Past Medical History / Comment(s): hx tia, hx stroke behind left eye., lt eye macular , states hospitalized with Covid April 2019 with life support and stage 3 kidney failure., hx of fall with hip fx and surgery 01/13/22 went to [facility] for Rehab. DVT during ., varicose veins, states painful sore left heel., hx of t.b. as a child with scarring on lungs. dialysis since 04/2024, and friday Last Myocardial Infarction Date:: unknown date History of Any Multi-Drug Resistant Organisms: MRSA, VRE Date of last positivie culture/infection: 09/09/22 MRSA & VRE ([facility]-Scanned) MDRO Source:: Blood Culture Past Surgical History: Adenoidectomy, Hysterectomy, Orthopedic Surgery, Tonsillectomy, Tubal Ligation Additional Past Surgical History / Comment(s): pilonidal cyst twice as child, rt knee arthroscopy, krystyna cataracts, krystyna great toe sx, ORIF Left hip (01/13/22) Past Anesthesia/Blood Transfusion Reactions: Previous Problems w/ Anesthesia, Postoperative Nausea & Vomiting (PONV) Additional Past Anesthesia/Blood Transfusion Reaction / Comment(s): difficulty waking up after sx. clausterphobia. 1961 blood transfusion(during child ) pt stated had palpitations after 2nd unit given Past Psychological History: Anxiety Smoking Status: Never smoker Past Alcohol Use History: None Reported Past Drug Use History: None Reported - Past Family History Mother Family Medical History: Cancer Additional Family Medical History / Comment(s): lung cancer Father Family Medical History: Coronary Artery Disease (CAD) Additional Family Medical History / Comment(s): heart disease, kidney disese Medications and Allergies Home Medications Medication Instructions Recorded Confirmed Type Sacubitril/Valsartan [Entresto 24 1 tab PO BID 01/12/22 07/23/24 History mg-26 mg Tablet] Omeprazole [PriLOSEC] 20 mg PO DAILY 03/05/22 07/23/24 History Ipratropium [place] [Atrovent Hfa] 2 puff INHALATION RT-QID 09/09/22 07/23/24 History ALPRAZolam [Xanax] 0.25 mg PO TID PRN 05/30/23 07/23/24 History Ammonium Lactate Lotion 1 applic TOPICAL BID PRN 05/30/23 07/23/24 History [Lac-Hydrin 12% Lotion] Aspirin 81 mg PO DAILY 05/30/23 07/23/24 History Atorvastatin [Lipitor] 20 mg PO DAILY 05/30/23 07/23/24 History Cholecalciferol [Vitamin D3 (25 25 mcg PO DAILY 05/30/23 07/23/24 History Mcg = 1000 Iu)] Escitalopram [Lexapro] 10 mg PO DAILY 05/30/23 07/23/24 History Furosemide [Lasix] 80 mg PO DAILY 05/30/23 07/23/24 History Insulin Glargine,Hum.rec.anlog 16 - 18 units SQ HS PRN 05/30/23 07/23/24 History [Al Reynolds] Insulin Glargine,Hum.rec.anlog 24 units SQ DAILY 05/30/23 07/23/24 History [[place] Max Solostar] Multivit-Min/FA/Lycopen/Lutein 1 tab PO DAILY 05/30/23 07/23/24 History [Centrum Silver Tablet] Albuterol Inhaler [Ventolin Hfa 2 puff INHALATION RT-QID PRN 01/09/24 07/23/24 History Inhaler] Ascorbic Acid [Vitamin C] 1,000 mg PO DAILY 01/09/24 07/23/24 History Vit C/E/Zn/Coppr/Lutein/Zeaxan 1 cap PO BID 01/09/24 07/23/24 History [Preservision Areds 2 Softgel] Magnesium Oxide [Mag-Ox] 400 mg PO DAILY #30 tab 01/16/24 07/23/24 Rx Nystatin 100,000Unit/gm Cream 1 applic TOPICAL BID #60 g 01/16/24 07/23/24 Rx [Mycostatin Cream] Sodium Bicarbonate Tab 650 mg PO BID #60 tab 01/16/24 07/23/24 Rx Menthol-Zinc Oxide Oint 1 applic TOPICAL DIRECTED 03/03/24 07/23/24 History [Calmoseptine Ointment] Periguard Ointment 1 applic TOPICAL DIRECTED 03/03/24 07/23/24 History Vits A and D/White Pet/Lanolin [A 1 applic TOPICAL DAILY PRN 03/03/24 07/23/24 History and D Ointment] traMADol HCL 50 mg PO TID PRN 05/20/24 07/23/24 History Midodrine [ProAmatine] 10 mg PO AC-TID PRN 06/17/24 07/23/24 History Apixaban [Eliquis] 2.5 mg PO BID #60 tab 07/14/24 07/23/24 Rx Metoprolol Succinate (ER) [Toprol 25 mg PO BID #60 tab 07/14/24 07/23/24 Rx XL] Midodrine [ProAmatine] 10 mg PO AC-TID #90 tab 07/14/24 07/23/24 Rx Darbepoetin [place] [Aranesp] 60 mcg SQ DIRECTED 07/23/24 07/23/24 History Ondansetron Odt [Zofran Odt] 4 mg PO Q8HR PRN #15 tab 07/29/24 Rx Allergies Allergy/AdvReac Type Severity Reaction Status Date / Time shellfish derived [Shellfish] Allergy Severe vomiting Verified 08/21/24 09:50 -very ill adhesive Allergy skin red Verified 08/21/24 09:50 and murguia, tears skin aluminum Allergy skin turns Verified 08/21/24 09:50 black, passes out Antihistamines - Allergy heart Verified 08/21/24 09:50 Ethylenediamine palpitations codeine Allergy migraines Verified 08/21/24 09:50 epinephrine Allergy heart Verified 08/21/24 09:50 palpitations fluticasone [From Flonase] Allergy Unknown Verified 08/21/24 09:50 hydrogen peroxide Allergy murguia and Verified 08/21/24 09:50 causes infection latex Allergy passes out Verified 08/21/24 09:50 nickel Allergy turns skin Verified 08/21/24 09:50 black and passes out procaine HCl [From Novocain] Allergy passed Verified 08/21/24 09:50 out- due to epinephrine in it. thiopental sodium Allergy needed cpr Verified 08/21/24 09:50 [From Pentothal] resusitation insulin glargine AdvReac Intermediate Diarrhea, Verified 08/21/24 09:50 [From Lantus U-100 Insulin] Vomiting, upset stomach iron AdvReac Nausea Verified 08/21/24 09:50 methocarbamol [From Robaxin] AdvReac Hallucinati Verified 08/21/24 09:50 ons zinc oxide AdvReac Rash/Hives Verified 08/21/24 09:50 surgical felicita Allergy Severe had to be Uncoded 08/21/24 09:50 removed 2 days post-op petroleum products AdvReac passes out Uncoded 08/21/24 09:50 or does not feel well. (diesel, oils) Physical Exam Vitals: Vital Signs Temp Pulse Pulse Resp BP Pulse Ox 08/21/24 13:52 61 19 110/57 97 08/21/24 12:33 68 17 106/47 100 08/21/24 11:08 70 17 104/59 98 08/21/24 09:51 70 08/21/24 09:39 98.9 F 82 19 115/58 98 Intake and Output 08/20/24 08/21/24 08/21/24 22:59 06:59 14:59 Other: Weight 81.647 kg Results CBC & Chem 7: 08/21/24 10:50 08/21/24 12:42 Labs: Abnormal Lab Results - Last 24 Hours (Table) 08/21/24 08/21/24 08/21/24 Range/Units 10:50 10:50 12:42 RBC 2.79 L (4.10-5.20) 10*6/uL Hgb 6.7 L* (12.0-15.0) g/dL Hct 24.1 L (37.2-46.3) % MCH 24.0 L (27.0-32.0) pg MCHC 27.8 L (32.0-37.0) g/dL Eosinophils # 0.40 H (0.04-0.35) 10*3/uL PT 12.8 H (10.0-12.5) sec INR 1.2 H (<1.2) Sodium (137-145) mmol/L Carbon Dioxide (22-30) mmol/L BUN (7-17) mg/dL Creatinine (0.52-1.04) mg/dL Glucose (74-99) mg/dL Total Protein (6.3-8.2) g/dL Albumin (3.5-5.0) g/dL Crossmatch See Detail 08/21/24 Range/Units 12:42 RBC (4.10-5.20) 10*6/uL Hgb (12.0-15.0) g/dL Hct (37.2-46.3) % MCH (27.0-32.0) pg MCHC (32.0-37.0) g/dL Eosinophils # (0.04-0.35) 10*3/uL PT (10.0-12.5) sec INR (<1.2) Sodium 131 L (137-145) mmol/L Carbon Dioxide 21 L (22-30) mmol/L BUN 52 H (7-17) mg/dL Creatinine 3.69 H (0.52-1.04) mg/dL Glucose 164 H (74-99) mg/dL Total Protein 5.5 L (6.3-8.2) g/dL Albumin 2.5 L (3.5-5.0) g/dL Crossmatch
[2024-08-21] MEDS: DARBEPOETIN ALFA 40 MCG/0.4 ML SYRINGE SQ SCH (15:57)
[2024-08-21] MEDS: MIDODRINE 5 MG TAB PO PRN (17:42)
[2024-08-21] MEDS ORDERED: ALBUTEROL NEBULIZED 2.5 MG/3 ML INHALATION PRN (20:11)
[2024-08-21 20:47] LABS: Glucose,Whole Blood 141 mg/dL (70-110)
[2024-08-21] MEDS: SODIUM BICARBONATE TAB 650 MG TAB PO SCH (22:00)
[2024-08-21] MEDS: FUROSEMIDE 10 MG/ML 2 ML VIAL IV ONE (23:58)
[2024-08-22 06:34] LABS: Glucose,Whole Blood 115 mg/dL (70-110)
[2024-08-22] MEDS: MIDODRINE 5 MG TAB PO SCH (08:14)
[2024-08-22] MEDS: ESCITALOPRAM 10 MG TAB PO SCH (08:36)
[2024-08-22] MEDS: ATORVASTATIN 20 MG TAB PO SCH (08:36)
[2024-08-22 09:49] LABS: Basophils # (A) 0.02 X 10*3/uL (0.00-0.10); Basophils % (A) 0.4 %; Eosinophils # (A) 0.41 X 10*3/uL (0.04-0.35); Eosinophils % (A) 7.3 %; HCT 21.3 % (37.2-46.3); HGB 6.3 g/dL (12.0-15.0); Lymphocytes # (A) 1.22 X 10*3/uL (0.90-5.00); Lymphocytes % (A) 21.8 %; MCH 24.1 pg (27.0-32.0); MCHC 29.6 g/dL (32.0-37.0); MCV 81.6 FL (80.0-97.0); Mean Platelet Volume 10.8 FL (9.5-12.2); Monocytes # (A) 0.59 X 10*3/uL (0.20-1.00); Monocytes % (A) 10.6 %; NRBC Per 100 WBC 0 X 10*3/uL (0.00-0.01); Neutrophils # (A) 3.32 X 10*3/uL (1.80-7.70); Neutrophils % (A) 59.4 %; Platelet Count 190 X 10*3/uL (140-440); RBC 2.61 X 10*6/uL (4.10-5.20); RDW 18.3 % (11.5-14.5); WBC 5.59 X 10*3/uL (4.50-10.00)
--- NOTE | 2024-08-22 11:08 | P.NPCON ---
History of Present Illness - Reason for Consult end stage renal disease - History of Present Illness Reason for consultation: End-stage renal disease History of present illness: Patient is a 78-year-old female seen in renal consultation for end-stage renal disease. She is maintained on hemodialysis on Friday schedule. Patient received dialysis treatment Friday and Friday. When she had dialysis treatment on Friday she was noted to have a low hemoglobin and was advised to come to the hospital. Hemoglobin on admission yesterday was 6.7 and she received a unit of blood with dialysis. Hemoglobin this morning is noted to be 6.3. She denies black stools or bloody stools. Denies any forms of bleeding. She has history of liver disease. Patient states her last paracentesis was about a month ago. Does have longstanding history of diabetes. Denies history of coronary artery disease. Denies fever or chills. No vomiting or diarrhea. Patient states she makes essentially no urine. Denies shortness of breath. Does complain of edema in her lower extremities. Vital signs are stable. General: No acute distress. HEENT: Head exam is unremarkable. LUNGS: No audible rhonchi or wheezes. HEART: Rate and Rhythm are regular. ABDOMEN: Nontender. Distention noted. EXTREMITITES: 2+ edema. Past Medical History Past Medical History: Atrial Fibrillation, Coronary Artery Disease (CAD), CVA/TIA, Diabetes Mellitus, Dialysis, Deep Vein Thrombosis (DVT), Hypertension, Myocardial Infarction ([place]), Osteoarthritis ([place]) Additional Past Medical History / Comment(s): hx tia, hx stroke behind left eye., lt eye macular , states hospitalized with Covid April 2019 with life support and stage 3 kidney failure., hx of fall with hip fx and surgery 01/13/22 went to [facility] for Rehab. DVT during ., varicose veins, states painful sore left heel., hx of t.b. as a child with scarring on lungs. dialysis since 04/2024, and friday Last Myocardial Infarction Date:: unknown date History of Any Multi-Drug Resistant Organisms: MRSA, VRE Date of last positivie culture/infection: 09/09/22 MRSA & VRE ([facility]-Scanned) MDRO Source:: Blood Culture Past Surgical History: Adenoidectomy, Hysterectomy, Orthopedic Surgery, Tonsillectomy, Tubal Ligation Additional Past Surgical History / Comment(s): pilonidal cyst twice as child, rt knee arthroscopy, krystyna cataracts, krystyna great toe sx, ORIF Left hip (01/13/22) Past Anesthesia/Blood Transfusion Reactions: Previous Problems w/ Anesthesia, Postoperative Nausea & Vomiting (PONV) Additional Past Anesthesia/Blood Transfusion Reaction / Comment(s): difficulty waking up after sx. clausterphobia. 1961 blood transfusion(during child ) pt stated had palpitations after 2nd unit given Smoking Status: Never smoker - Past Family History Mother Family Medical History: Cancer Additional Family Medical History / Comment(s): lung cancer Father Family Medical History: Coronary Artery Disease (CAD) Additional Family Medical History / Comment(s): heart disease, kidney disese Medications and Allergies Home Medications Medication Instructions Recorded Confirmed Type RX: Sacubitril/Valsartan [Entresto 1 tab PO BID 01/12/22 08/21/24 History 24 mg-26 mg Tablet] RX: Omeprazole [PriLOSEC] 20 mg PO DAILY 03/05/22 08/21/24 History RX: Ipratropium [place] [Atrovent 2 puff INHALATION RT-QID 09/09/22 08/21/24 History Hfa] RX: ALPRAZolam [Xanax] 0.25 mg PO TID PRN 05/30/23 08/21/24 History RX: Ammonium Lactate Lotion 1 applic TOPICAL BID PRN 05/30/23 08/21/24 History [Lac-Hydrin 12% Lotion] RX: Aspirin 81 mg PO DAILY 05/30/23 08/21/24 History RX: Atorvastatin [Lipitor] 20 mg PO DAILY 05/30/23 08/21/24 History RX: Cholecalciferol [Vitamin D3 25 mcg PO DAILY 05/30/23 08/21/24 History (25 Mcg = 1000 Iu)] RX: Escitalopram [Lexapro] 10 mg PO DAILY 05/30/23 08/21/24 History RX: Furosemide [Lasix] 80 mg PO DAILY 05/30/23 08/21/24 History RX: Insulin Glargine,Hum.rec.anlog 16 - 18 units SQ HS PRN 05/30/23 08/21/24 History [Toujeo Max Solostar] RX: Insulin Glargine,Hum.rec.anlog 24 units SQ DAILY 05/30/23 08/21/24 History [[place] Max Solostar] RX: Multivit-Min/FA/Lycopen/Lutein 1 tab PO DAILY 05/30/23 08/21/24 History [Centrum Silver Tablet] RX: Albuterol Inhaler [Ventolin 2 puff INHALATION RT-QID PRN 01/09/24 08/21/24 History Hfa Inhaler] RX: Ascorbic Acid [Vitamin C] 1,000 mg PO DAILY 01/09/24 08/21/24 History RX: Vit C/E/Zn/Coppr/Lutein/Zeaxan 1 cap PO BID 01/09/24 08/21/24 History [Preservision Areds 2 Softgel] RX: Magnesium Oxide [Mag-Ox] 400 mg PO DAILY #30 tab 01/16/24 08/21/24 Rx RX: Nystatin 100,000Unit/gm Cream 1 applic TOPICAL BID #60 g 01/16/24 08/21/24 Rx [Mycostatin Cream] RX: Sodium Bicarbonate Tab 650 mg PO BID #60 tab 01/16/24 08/21/24 Rx Periguard Ointment 1 applic TOPICAL DIRECTED 03/03/24 08/21/24 History RX: Vits A and D/White Pet/Lanolin 1 applic TOPICAL DAILY PRN 03/03/24 08/21/24 History [A and D Ointment] RX: traMADol HCL 50 mg PO TID PRN 05/20/24 08/21/24 History RX: Apixaban [Eliquis] 2.5 mg PO BID #60 tab 07/14/24 08/21/24 Rx RX: Metoprolol Succinate (ER) 25 mg PO BID #60 tab 07/14/24 08/21/24 Rx [Toprol XL] RX: Midodrine [ProAmatine] 10 mg PO AC-TID #90 tab 07/14/24 08/21/24 Rx Ondansetron Odt [Zofran Odt] 4 mg PO Q8HR PRN #15 tab 07/29/24 08/21/24 Rx Allergies Allergy/AdvReac Type Severity Reaction Status Date / Time shellfish derived [Shellfish] Allergy Severe vomiting Verified 08/21/24 15:19 -very ill adhesive Allergy skin red Verified 08/21/24 15:19 and murguia, tears skin aluminum Allergy skin turns Verified 08/21/24 15:19 black, passes out Antihistamines - Allergy heart Verified 08/21/24 15:19 Ethylenediamine palpitations codeine Allergy migraines Verified 08/21/24 15:19 epinephrine Allergy heart Verified 08/21/24 15:19 palpitations fluticasone [From Flonase] Allergy Unknown Verified 08/21/24 15:19 hydrogen peroxide Allergy murguia and Verified 08/21/24 15:19 causes infection latex Allergy passes out Verified 08/21/24 15:19 nickel Allergy turns skin Verified 08/21/24 15:19 black and passes out procaine HCl [From Novocain] Allergy passed Verified 08/21/24 15:19 out- due to epinephrine in it. thiopental sodium Allergy needed cpr Verified 08/21/24 15:19 [From Pentothal] resusitation insulin glargine AdvReac Intermediate Diarrhea, Verified 08/21/24 15:19 [From Lantus U-100 Insulin] Vomiting, upset stomach iron AdvReac Nausea Verified 08/21/24 15:19 methocarbamol [From Robaxin] AdvReac Hallucinati Verified 08/21/24 15:19 ons zinc oxide AdvReac Rash/Hives Verified 08/21/24 15:19 surgical felicita Allergy Severe had to be Uncoded 08/21/24 15:19 removed 2 days post-op petroleum products AdvReac passes out Uncoded 08/21/24 15:19 or does not feel well. (diesel, oils) Physical Exam Vitals: Vital Signs Temp Pulse Pulse Pulse Resp BP BP 08/22/24 07:35 98.7 F 81 18 119/57 08/22/24 01:50 97.9 F 68 18 101/46 08/21/24 20:43 98.1 F 75 16 118/69 08/21/24 19:32 98.4 F 82 18 111/73 08/21/24 18:34 97 F L 82 16 100/66 08/21/24 18:12 65 18 100/61 08/21/24 17:41 97.8 F 73 16 89/62 08/21/24 17:10 61 18 96/59 05/31/25 15:26 98.1 F 63 18 128/54 08/21/24 15:06 98.6 F 64 17 129/65 08/21/24 14:48 98.6 F 69 18 128/62 08/21/24 13:52 61 19 110/57 08/21/24 12:33 68 17 106/47 08/21/24 11:08 70 17 104/59 Pulse Ox 08/22/24 07:35 99 08/22/24 01:50 96 08/21/24 20:43 94 L 08/21/24 19:32 99 08/21/24 18:34 99 08/21/24 18:12 99 08/21/24 17:41 100 08/21/24 17:10 98 08/21/24 15:26 08/21/24 15:06 100 08/21/24 14:48 99 08/21/24 13:52 97 08/21/24 12:33 100 08/21/24 11:08 98 Intake and Output 08/21/24 08/22/24 08/22/24 22:59 06:59 14:59 Intake Total 1110 Output Total 4800 Balance -3690 Intake: Blood Product 310 Rc As-1 Unit 310 [id number] Hemodialysis 800 Output: Hemodialysis 2800 Hemodialysis Net Amount 2000 Other: # Voids 1 # Bowel Movements 2 Weight 81.647 kg Results - Lab Results Most recent lab results Calcium 8.5 mg/dL (8.4-10.2) 08/21/24 12:42 08/22/24 04:21 08/21/24 12:42 Assessment and Plan Plan: Assessment: 1. End-stage renal disease maintained on hemodialysis on Friday schedule via right chest permacath. 2. Anemia of chronic kidney disease with component of acute blood loss. On Evon nesp. Surgery consulted. 3. Liver cirrhosis. 4. Volume overload. 5. Hypervolemic hyponatremia. 6. Chronic diastolic CHF. Plan: Blood transfusion pending. IV DDAVP x 1 dose today. Extra hemodialysis treatment tomorrow mostly for ultrafiltration. Check phosphorus level. Thank you for the consultation. I will continue to follow the patient with you during her hospital stay.
[2024-08-22 11:19] LABS: Glucose,Whole Blood 192 mg/dL (70-110)
[2024-08-22 12:13] LABS: Hepatitis B Surface Antigen Nonreactive (Nonreactive)
[2024-08-22] MEDS: DESMOPRESSIN ACETATE 24 MCG in SODIUM CHLORIDE 0.9% 50 ML IVPB ONE (12:14)
[2024-08-22] MEDS: TIOTROPIUM 2.5 MCG INHALER INHALATION SCH (12:39)
[2024-08-22 12:44] LABS: % Iron Saturation 8.84 (12.00-45.00); BUN/Creat Ratio 12.48 Ratio (12.00-20.00); Blood Urea Nitrogen 41.2 mg/dL (9.0-27.0); Calcium 7.9 mg/dL (8.7-10.3); Carbon Dioxide 24.5 mmol/L (21.6-31.8); Chloride 102 mmol/L (96-109); Ferritin 35.3 ng/mL (10.0-291.0); Glucose 117 mg/dL (70-110); Iron 26 UG/DL (50-170); Potassium 4.3 mmol/L (3.5-5.5); Sodium 137 mmol/L (135-145); Total Iron Binding Capacity 294 UG/DL (228-460)
[2024-08-22] MEDS: FUROSEMIDE 40 MG TAB PO SCH (13:03)
[2024-08-22] MEDS: PANTOPRAZOLE 40 MG/10 ML VIAL IVP SCH (13:04)
[2024-08-22] MEDS: SACUBITRIL/VALSARTAN 24 MG-26 MG TABLET PO SCH (13:04)
[2024-08-22] MEDS: METOPROLOL SUCCINATE (ER) 25 MG TAB.ER.24H PO SCH (13:04)
[2024-08-22] MEDS: INSULIN GLARGINE SQ SCH ×2 (13:24→22:34)
[2024-08-22 13:41] LABS: Hepatitis B Surface AB- Quant 3.5 mIU/mL
--- NOTE | 2024-08-22 13:55 | P.PN ---
Subjective Progress Note Date: 08/22/24 Patient is a 78-year-old lady with past medical history significant for end- stage renal disease on dialysis, hypertension, diabetes mellitus who presents the ER because of abnormal labs. Patient was seen in the hospital in June of this year. Patient stated that she has been noticing that she is getting more short of breath for the last couple of days. Patient also been complaining of abdominal distention, patient normally gets paracentesis and supposed to get 1 next week. Patient denies any nausea vomiting or abdominal pain. Patient denies any blood in the stools. There is no complaint hematemesis. Patient is complaining of swelling of lower extremities which is more than her usual. Patient underwent dialysis yesterday but later got a call from the dialysis clinic that her hemoglobin was low and was told to come to the ER. Initial lab work done in the ER showed WBC 9.34, hemoglobin 6.7, platelet count 221, sodium 131, potassium 3.8, BUN 52, creatinine 3.69, glucose 164 troponin 0.012 EKG done in the ER showed heart rate of 77, irregular rhythm no ST segment elevation or depression seen, no T-wave inversions seen. Chest x-ray done in the ERShowed cardiomegaly and mild pulmonary vascular congestion Patient admitted to internal medicine service 08/22. Patient seen examined. Hemoglobin this morning is 6.3, ordered another unit of packed red blood cells,. Denies any shortness of breath. Denies any blood in the stools. REVIEW OF SYSTEMS: CONSTITUTIONAL: No fever, no malaise,. CARDIOVASCULAR: No chest pain, no palpitations, no syncope. PULMONARY: As mentioned above GASTROINTESTINAL: As mentioned above NEUROLOGICAL: No headaches, no weakness, PHYSICAL EXAMINATION: GENERAL: The patient is alert and oriented x3, chronically ill looking HEENT: Pupils are round and equally reacting to light. EOMI. No scleral icterus. No conjunctival pallor. Normocephalic, atraumatic. No pharyngeal erythema. No thyromegaly. CARDIOVASCULAR: S1 and S2 present. No murmurs, rubs, or gallops. PULMONARY: Chest is clear to auscultation, no wheezing or crackles. ABDOMEN: distended, normoactive bowel sounds. No palpable organomegaly. MUSCULOSKELETAL: No joint swelling or deformity. EXTREMITIES: No cyanosis, 2+ pitting edema of lower extremities bilaterally NEUROLOGICAL: Gross neurological examination did not reveal any focal deficits. SKIN: No rashes. Assessment and plan Acute on chronic anemia End stage renal disease on , , Friday schedule Ascites from liver cirrhosis requiring frequent paracentesis Chronic atrial fibrillation Hx nonischemic cardiomyopathy Anemia of chronic disease Coronary artery disease Diabetes Mellitus type 2 Hyperlipidemia Hypertension Hx of stroke Monitor vital signs Monitor CBC Monitor CMP Continue telemetry monitoring Ordered anemia workup Ordered FOBT Status post 1 unit of packed red blood cell on 08/21, ordered another unit of packed red blood cell for 08/22 Hold Eliquis for now till FOBT is done. Consult surgery for evaluation for anemia Nephrology following for maintenance dialysis Labs and medication were reviewed.. Continue same treatment. Continue with symptomatic treatment. Resume home medication. Monitor labs and vitals. DVT and GI prophylaxis. Further recommendations as per clinical course of the patient Dictation was produced using [employer] dictation software. please excuse any grammatical, word or spelling errors. Objective - Vital Signs Vital signs: Vital Signs Temp 98.7 F 08/22/24 07:35 Pulse 81 08/22/24 07:35 Resp 18 08/22/24 07:35 BP 119/57 08/22/24 07:35 Pulse Ox 99 08/22/24 07:35 FiO2 Intake & Output 08/21/24 08/22/24 08/22/24 18:59 06:59 18:59 Intake Total 1110 Output Total 4800 Balance -3690 Weight 81.647 kg 81.647 kg Intake: Blood Product 310 Rc As-1 Unit 310 [id number] Hemodialysis 800 Output: Hemodialysis 2800 Hemodialysis Net Amount 1999 Other: # Voids 1 # Bowel Movements 2 - Labs CBC & Chem 7: 08/22/24 04:21 08/22/24 04:21 Labs: Abnormal Lab Results - Last 24 Hours (Table) 08/21/24 08/21/24 08/21/24 Range/Units 10:50 10:50 12:42 RBC 2.79 L (4.10-5.20) 10*6/uL Hgb 6.7 L* (12.0-15.0) g/dL Hct 24.1 L (37.2-46.3) % MCH 24.0 L (27.0-32.0) pg MCHC 27.8 L (32.0-37.0) g/dL RDW (11.5-14.5) % Eosinophils # 0.40 H (0.04-0.35) 10*3/uL PT 12.8 H (10.0-12.5) sec INR 1.2 H (<1.2) Sodium (137-145) mmol/L Carbon Dioxide (22-30) mmol/L BUN (7-17) mg/dL Creatinine (0.52-1.04) mg/dL Glucose (74-99) mg/dL POC Glucose (mg/dL) (70-110) mg/dL Total Protein (6.3-8.2) g/dL Albumin (3.5-5.0) g/dL Crossmatch See Detail 08/21/24 08/21/24 08/22/24 Range/Units 12:42 20:45 04:21 RBC 2.61 L (4.10-5.20) 10*6/uL Hgb 6.3 A* (12.0-15.0) g/dL Hct 21.3 L (37.2-46.3) % MCH 24.1 L (27.0-32.0) pg MCHC 29.6 L (32.0-37.0) g/dL RDW 18.3 H (11.5-14.5) % Eosinophils # 0.41 H (0.04-0.35) 10*3/uL PT (10.0-12.5) sec INR (<1.2) Sodium 131 L (137-145) mmol/L Carbon Dioxide 21 L (22-30) mmol/L BUN 52 H (7-17) mg/dL Creatinine 3.69 H (0.52-1.04) mg/dL Glucose 164 H (74-99) mg/dL POC Glucose (mg/dL) 141 H (70-110) mg/dL Total Protein 5.5 L (6.3-8.2) g/dL Albumin 2.5 L (3.5-5.0) g/dL Crossmatch 08/22/24 Range/Units 06:33 RBC (4.10-5.20) 10*6/uL Hgb (12.0-15.0) g/dL Hct (37.2-46.3) % MCH (27.0-32.0) pg MCHC (32.0-37.0) g/dL RDW (11.5-14.5) % Eosinophils # (0.04-0.35) 10*3/uL PT (10.0-12.5) sec INR (<1.2) Sodium (137-145) mmol/L Carbon Dioxide (22-30) mmol/L BUN (7-17) mg/dL Creatinine (0.52-1.04) mg/dL Glucose (74-99) mg/dL POC Glucose (mg/dL) 115 H (70-110) mg/dL Total Protein (6.3-8.2) g/dL Albumin (3.5-5.0) g/dL Crossmatch
--- NOTE | 2024-08-22 14:21 | US ---
EXAMINATION TYPE: US abdomen limited DATE OF EXAM: 08/22/2024 COMPARISON: US CLINICAL INDICATION: Female, 78 years old with history of ascites; Ascites, multiple prior para's TECHNIQUE: Grayscale imaging of the abdomen for ascites. FINDINGS: Mild to moderate ascites, most pronounced in the right hemiabdomen. IMPRESSION: Mild to moderate volume diffuse abdominal ascites. [facility], , 08/22/2024 2:19 PM
[2024-08-22 16:35] LABS: Glucose,Whole Blood 233 mg/dL (70-110)
[2024-08-22 20:17] LABS: Glucose,Whole Blood 202 mg/dL (70-110)
[2024-08-22] MEDS ORDERED: PETROLATUM, WHITE OINT 454 GM JAR TOPICAL PRN (20:47)
[2024-08-22] MEDS: traMADol 50 MG TAB PO PRN (22:49)
[2024-08-23 06:13] LABS: Glucose,Whole Blood 135 mg/dL (70-110)
--- NOTE | 2024-08-23 08:32 | P.PN ---
Subjective Progress Note Date: 08/23/24 This is an 78-year-old female who was admitted for anemia after recent dialysis session. Patient reports she had been noticing some increasing shortness of breath for the last couple of days. Hemoglobin on admission was 6.7. Yesterday hemoglobin was 6.3. Patient has received a total of 2 units of packed red blood cells. Labs are not back for today at time of dictation. Patient also has a history of ascites and has been routinely getting paracentesis. Interventional radiology has been consulted. Nephrology are also on consult, patient will have dialysis today. Patient seen this morning sitting up in bed resting comfortably. Objective - Vital Signs Vital signs: Vital Signs Temp 98.2 F 08/23/24 07:07 Pulse 70 08/23/24 07:07 Resp 17 08/23/24 07:07 BP 127/69 08/23/24 07:07 Pulse Ox 97 08/23/24 07:07 FiO2 Intake & Output 08/22/24 08/23/24 08/23/24 18:59 06:59 18:59 Intake Total 310 120 Balance 310 120 Intake: Oral 120 Blood Product 310 Rc As-1 Unit 310 [id number] Other: # Voids 1 2 # Bowel Movements 1 1 - Constitutional General appearance: Present: cooperative, no acute distress - EENT Eyes: Present: PERRLA - Neck Neck: Present: normal ROM. Absent: lymphadenopathy, rigidity - Respiratory Respiratory: bilateral: diminished - Cardiovascular Heart sounds: normal: S1, S2 - Gastrointestinal General gastrointestinal: Present: distended, soft. Absent: tenderness - Integumentary Integumentary: Present: normal, normal turgor - Musculoskeletal Musculoskeletal: Present: generalized weakness - Psychiatric Psychiatric: Present: A&O x's 3 - Labs CBC & Chem 7: 08/22/24 04:21 08/22/24 04:21 Labs: Abnormal Lab Results - Last 24 Hours (Table) 08/21/24 08/22/24 08/22/24 Range/Units 12:42 04:21 04:21 RBC 2.61 L (4.10-5.20) X 10*6/uL Hgb 6.3 A* (12.0-15.0) g/dL Hct 21.3 L (37.2-46.3) % MCH 24.1 L (27.0-32.0) pg MCHC 29.6 L (32.0-37.0) g/dL RDW 18.3 H (11.5-14.5) % Eosinophils # 0.41 H (0.04-0.35) X 10*3/uL BUN 41.2 H (9.0-27.0) mg/dL Creatinine 3.3 H (0.6-1.5) mg/dL Est GFR (CKD-EPI) 14 L (>=60) Glucose 117 H (70-110) mg/dL POC Glucose (mg/dL) (70-110) mg/dL Calcium 7.9 L (8.7-10.3) mg/dL Phosphorus (2.4-5.1) mg/dL Iron 26 L (50-170) UG/DL % Saturation 8.84 L (12.00-45.00) Crossmatch See Detail 08/22/24 08/22/24 08/22/24 Range/Units 04:21 11:18 16:34 RBC (4.10-5.20) X 10*6/uL Hgb (12.0-15.0) g/dL Hct (37.2-46.3) % MCH (27.0-32.0) pg MCHC (32.0-37.0) g/dL RDW (11.5-14.5) % Eosinophils # (0.04-0.35) X 10*3/uL BUN (9.0-27.0) mg/dL Creatinine (0.6-1.5) mg/dL Est GFR (CKD-EPI) (>=60) Glucose (70-110) mg/dL POC Glucose (mg/dL) 192 H 233 H (70-110) mg/dL Calcium (8.7-10.3) mg/dL Phosphorus 1.9 L (2.4-5.1) mg/dL Iron (50-170) UG/DL % Saturation (12.00-45.00) Crossmatch 08/22/24 08/23/24 Range/Units 20:16 06:10 RBC (4.10-5.20) X 10*6/uL Hgb (12.0-15.0) g/dL Hct (37.2-46.3) % MCH (27.0-32.0) pg MCHC (32.0-37.0) g/dL RDW (11.5-14.5) % Eosinophils # (0.04-0.35) X 10*3/uL BUN (9.0-27.0) mg/dL Creatinine (0.6-1.5) mg/dL Est GFR (CKD-EPI) (>=60) Glucose (70-110) mg/dL POC Glucose (mg/dL) 202 H 135 H (70-110) mg/dL Calcium (8.7-10.3) mg/dL Phosphorus (2.4-5.1) mg/dL Iron (50-170) UG/DL % Saturation (12.00-45.00) Crossmatch Assessment and Plan (1) Anemia Current Visit: Yes Status: Acute Code(s): D64.9 - ANEMIA, UNSPECIFIED SNOMED Code(s): 832803804 (2) Ascites Current Visit: Yes Status: Acute Code(s): R18.8 - OTHER ASCITES SNOMED Code(s): 968159196 (3) ESRD (end stage renal disease) on dialysis Current Visit: Yes Status: Acute Code(s): N18.6 - END STAGE RENAL DISEASE; Z99.2 - DEPENDENCE ON RENAL DIALYSIS SNOMED Code(s): 142671018 (4) Atrial fibrillation Current Visit: No Status: Acute Code(s): I48.91 - UNSPECIFIED ATRIAL FIBRILLATION SNOMED Code(s): 87467134 (5) CAD (coronary artery disease) Current Visit: No Status: Acute Code(s): I25.10 - ATHSCL HEART DISEASE OF [place] CORONARY ARTERY W/O ANG PCTRS SNOMED Code(s): 59087917 (6) Chronic wound Current Visit: No Status: Acute Code(s): T14.8XXA - OTHER INJURY OF UNSPECIFIED BODY REGION, INITIAL ENCOUNTER SNOMED Code(s): 91529264108714 (7) Cirrhosis of liver with ascites Current Visit: No Status: Acute Code(s): K74.60 - UNSPECIFIED CIRRHOSIS OF LIVER; R18.8 - OTHER ASCITES SNOMED Code(s): 53403327 (8) Diabetes Current Visit: No Status: Acute Code(s): E11.9 - TYPE 2 DIABETES MELLITUS WITHOUT COMPLICATIONS SNOMED Code(s): 66589835 Plan: Await lab results from today. Check CBC and CMP in the morning. Patient seen and evaluated by nurse practitioner, physician in agreement with plan.
[2024-08-23 10:12] LABS: HCT 24.1 % (37.2-46.3); HGB 7.5 g/dL (12.0-15.0); MCHC 31.1 g/dL (32.0-37.0); MCV 80.3 FL (80.0-97.0); NRBC Per 100 WBC 0 X 10*3/uL (0.00-0.01); Platelet Count 196 X 10*3/uL (140-440); RDW 17.9 % (11.5-14.5); WBC 5.72 X 10*3/uL (4.50-10.00)
[2024-08-23 11:36] LABS: Glucose,Whole Blood 145 mg/dL (70-110)
--- NOTE | 2024-08-23 12:44 | P.PN ---
Subjective Patient is seen for follow-up for end-stage renal disease. Seen on hemodialysis today. No shortness of breath Goal UF about 1.5 to 2 L. Objective - Vital Signs Vital signs: Vital Signs Temp 98 F 08/23/24 12:02 Pulse 61 08/23/24 12:02 Resp 18 08/23/24 12:02 BP 115/54 08/23/24 12:02 Pulse Ox 97 08/23/24 07:07 FiO2 Intake & Output 08/22/24 08/23/24 08/23/24 18:59 06:59 18:59 Intake Total 310 520 Output Total 3400 Balance 310 -2880 Intake: Oral 120 Blood Product 310 Rc As-1 Unit 310 [id number] Hemodialysis 400 Output: Hemodialysis 1900 Hemodialysis Net Amount 1500 Other: # Voids 1 2 # Bowel Movements 1 1 - Exam Patient is awake, comfortable, no acute distress Examination of the heart S1 and S2 Examination of the lungs bilateral breath sounds are heard Abdomen is soft obese nontender Examination lower extremities shows chronic edema chronic skin changes, legs are wrapped - Labs CBC & Chem 7: 08/23/24 08:29 08/22/24 04:21 Labs: Abnormal Lab Results - Last 24 Hours (Table) 08/21/24 08/22/24 08/22/24 Range/Units 12:42 04:21 04:21 RBC (4.10-5.20) X 10*6/uL Hgb (12.0-15.0) g/dL Hct (37.2-46.3) % MCH (27.0-32.0) pg MCHC (32.0-37.0) g/dL RDW (11.5-14.5) % BUN 41.2 H (9.0-27.0) mg/dL Creatinine 3.3 H (0.6-1.5) mg/dL Est GFR (CKD-EPI) 14 L (>=60) Glucose 117 H (70-110) mg/dL POC Glucose (mg/dL) (70-110) mg/dL Calcium 7.9 L (8.7-10.3) mg/dL Phosphorus 1.9 L (2.4-5.1) mg/dL Iron 26 L (50-170) UG/DL % Saturation 8.84 L (12.00-45.00) Crossmatch See Detail 08/22/24 08/22/24 08/23/24 Range/Units 16:34 20:16 06:10 RBC (4.10-5.20) X 10*6/uL Hgb (12.0-15.0) g/dL Hct (37.2-46.3) % MCH (27.0-32.0) pg MCHC (32.0-37.0) g/dL RDW (11.5-14.5) % BUN (9.0-27.0) mg/dL Creatinine (0.6-1.5) mg/dL Est GFR (CKD-EPI) (>=60) Glucose (70-110) mg/dL POC Glucose (mg/dL) 233 H 202 H 135 H (70-110) mg/dL Calcium (8.7-10.3) mg/dL Phosphorus (2.4-5.1) mg/dL Iron (50-170) UG/DL % Saturation (12.00-45.00) Crossmatch 08/23/24 08/23/24 Range/Units 08:29 11:35 RBC 3.00 L (4.10-5.20) X 10*6/uL Hgb 7.5 L (12.0-15.0) g/dL Hct 24.1 L (37.2-46.3) % MCH 25.0 L (27.0-32.0) pg MCHC 31.1 L (32.0-37.0) g/dL RDW 17.9 H (11.5-14.5) % BUN (9.0-27.0) mg/dL Creatinine (0.6-1.5) mg/dL Est GFR (CKD-EPI) (>=60) Glucose (70-110) mg/dL POC Glucose (mg/dL) 145 H (70-110) mg/dL Calcium (8.7-10.3) mg/dL Phosphorus (2.4-5.1) mg/dL Iron (50-170) UG/DL % Saturation (12.00-45.00) Crossmatch Assessment and Plan Assessment: 1. End-stage renal disease maintained on hemodialysis on Friday schedule via right chest permacath. 2. Anemia of chronic kidney disease with component of acute blood loss. On Aranesp. Surgery consulted. 3. Liver cirrhosis. 4. Volume overload. 5. Hypervolemic hyponatremia. 6. Chronic diastolic CHF. Plan: Repeat hemodialysis in a.m. Increase dose of Aranesp
[2024-08-23] MEDS: MAGNESIUM OXIDE 400 MG TAB PO SCH (13:00)
[2024-08-23] MEDS: CHOLECALCIFEROL 25 MCG (1000 IU) TABLET PO SCH (13:00)
[2024-08-23] MEDS: ASCORBIC ACID 500 MG TAB PO SCH (13:08)
--- NOTE | 2024-08-23 13:36 | P.GSCN ---
History of Present Illness Consult date: 08/23/24 History of present illness: CHIEF COMPLAINT: Low hemoglobin HISTORY OF PRESENT ILLNESS: This is a 78-year-old female with history of end- stage renal disease on hemodialysis. Patient came into the ER after having a low hemoglobin on lab work prior to hemodialysis. Patient had a hemoglobin of 6.3 she received 2 units of blood. And repeat hemoglobin 7.5. Patient denies any blood in her stools or black stools. Denies any nausea or vomiting. She does complain of abdominal pain epigastric area and lower mid abdomen. She reports that she is due for her paracentesis for her liver cirrhosis. Surgical service consulted for anemia with history of peptic ulcer disease. Patient reports that she has never had an EGD. And last colonoscopy was about 6 years ago and she reports it is negative. Patient does not ambulate. Patient hemodialysis this morning. Patient denies being on any blood thinners. PAST MEDICAL HISTORY: Atrial Fibrillation, Coronary Artery Disease (CAD), CVA/TIA, Diabetes Mellitus, Dialysis, Deep Vein Thrombosis (DVT), Hypertension, Myocardial Infarction ([place]), Osteoarthritis (OA),hx tia, hx stroke behind left eye., lt eye macular , states hospitalized with Covid April 2019 with life support and stage 3 kidney failure., hx of fall with hip fx and surgery 01/13/22 went to [facility] for Rehab. DVT during ., varicose veins, states painful sore left heel., hx of t.b. as a child with scarring on lungs. dialysis since 04/2024, and friday, right groin romie cyst PAST SURGICAL HISTORY: Adenoidectomy, Hysterectomy, Orthopedic Surgery, Tonsillectomy, Tubal Ligation, pilonidal cyst twice as child, rt knee arthroscopy, krystyna cataracts, krystyna great toe sx, ORIF Left hip (01/13/22) MEDICATIONS: See below ALLERGIES: See below SOCIAL HISTORY: No illicit drug use. REVIEW OF SYSTEMS: CONSTITUTIONAL: Denies fever or chills. HEENT: Denies blurred vision, vision changes, or eye pain. Denies hemoptysis CARDIOVASCULAR: Denies chest pain or pressure. RESPIRATORY: No shortness of breath. GASTROINTESTINAL: See HPI for pertinent findings HEMATOLOGIC: Denies bleeding disorders. GENITOURINARY: Denies any blood in urine or increased urinary frequency. SKIN: Denies pruitis. Denies rash. PHYSICAL EXAM: VITAL SIGNS: Reviewed GENERAL: Well-developed in no acute distress. HEENT: No sclera icterus. Extraocular movements grossly intact. Moist buccal mucosa. Head is atraumatic, normocephalic. No nasal drainage. ABDOMEN: Soft. Obese. Distended. Tenderness palpation epigastric and lower mid abdomen NEUROLOGIC: Alert and oriented. Cranial nerves II through XII grossly intact. LABORATORY DATA: WBC 5.72 Hgb 6.3 up to 7.5 platelets 196 Sodium is 137 potassium 4.3 creatinine 3.3 Lactic acid 1.6 IMAGING: Abdominal ultrasound reports mild to moderate volume diffuse abdominal ascites ASSESSMENT: 1. Anemia requiring blood transfusion. No active bleeding 2. History of end-stage renal disease on hemodialysis. PLAN: - Patient to be scheduled for EGD and colonoscopy tomorrow with Dr. Romero -Start clear liquid diet -Start bowel prep -N.p.o. 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 Signing provider agrees with the documented findings, assessment, and plan of care. Past Medical History Past Medical History: Atrial Fibrillation, Coronary Artery Disease (CAD), CVA/TIA, Diabetes Mellitus, Dialysis, Deep Vein Thrombosis (DVT), Hypertension, Myocardial Infarction ([place]), Osteoarthritis (OA) Additional Past Medical History / Comment(s): hx tia, hx stroke behind left eye., lt eye macular , states hospitalized with Covid April 2019 with life support and stage 3 kidney failure., hx of fall with hip fx and surgery 01/13/22 went to [facility] for Rehab. DVT during ., varicose veins, states painful sore left heel., hx of t.b. as a child with scarring on lungs. 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 clausterphobia. 1 blood transfusion(during child ) pt st ated had palpitations after 2nd unit given Smoking Status: Never smoker - Past Family History Mother Family Medical History: Cancer Additional Family Medical History / Comment(s): lung cancer Father Family Medical History: Coronary Artery Disease (CAD) Additional Family Medical History / Comment(s): heart disease, kidney disese Medications and Allergies Home Medications Medication Instructions Recorded Confirmed Type Sacubitril/Valsartan [Entresto 24 1 tab PO BID 01/12/22 08/21/24 History mg-26 mg Tablet] Omeprazole [PriLOSEC] 20 mg PO DAILY 03/05/22 08/21/24 History Ipratropium [place] [Atrovent Hfa] 2 puff INHALATION RT-QID 09/09/22 08/21/24 History ALPRAZolam [Xanax] 0.25 mg PO TID PRN 05/30/23 08/21/24 History Ammonium Lactate Lotion 1 applic TOPICAL BID PRN 05/30/23 08/21/24 History [Lac-Hydrin 12% Lotion] Aspirin 81 mg PO DAILY 05/30/23 08/21/24 History Atorvastatin [Lipitor] 20 mg PO DAILY 05/30/23 08/21/24 History Cholecalciferol [Vitamin D3 (25 25 mcg PO DAILY 05/30/23 08/21/24 History Mcg = 1000 Iu)] Escitalopram [Lexapro] 10 mg PO DAILY 05/30/23 08/21/24 History Furosemide [Lasix] 80 mg PO DAILY 05/30/23 08/21/24 History Insulin Glargine,Hum.rec.anlog 16 - 18 units SQ HS PRN 05/30/23 08/21/24 History [Toujeo Max Solostar] Insulin Glargine,Hum.rec.anlog 24 units SQ DAILY 05/30/23 08/21/24 History [Toujeo Max Solostar] Multivit-Min/FA/Lycopen/Lutein 1 tab PO DAILY 05/30/23 08/21/24 History [Centrum Silver Tablet] Albuterol Inhaler [Ventolin Hfa 2 puff INHALATION RT-QID PRN 01/09/24 08/21/24 History Inhaler] Ascorbic Acid [Vitamin C] 1,000 mg PO DAILY 01/09/24 08/21/24 History Vit C/E/Zn/Coppr/Lutein/Zeaxan 1 cap PO BID 01/09/24 08/21/24 History [Preservision Areds 2 Softgel] Magnesium Oxide [Mag-Ox] 400 mg PO DAILY #30 tab 01/16/24 08/21/24 Rx Nystatin 100,000Unit/gm Cream 1 applic TOPICAL BID #60 g 01/16/24 08/21/24 Rx [Mycostatin Cream] Sodium Bicarbonate Tab 650 mg PO BID #60 tab 01/16/24 08/21/24 Rx Periguard Ointment 1 applic TOPICAL DIRECTED 03/03/24 08/21/24 History Vits A and D/White Pet/Lanolin [A 1 applic TOPICAL DAILY PRN 03/03/24 08/21/24 History and D Ointment] traMADol HCL 50 mg PO TID PRN 05/20/24 08/21/24 History Apixaban [Eliquis] 2.5 mg PO BID #60 tab 07/14/24 08/21/24 Rx Metoprolol Succinate (ER) [Toprol 25 mg PO BID #60 tab 07/14/24 08/21/24 Rx XL] Midodrine [ProAmatine] 10 mg PO AC-TID #90 tab 07/14/24 08/21/24 Rx Ondansetron Odt [Zofran Odt] 4 mg PO Q8HR PRN #15 tab 07/29/24 08/21/24 Rx Allergies Allergy/AdvReac Type Severity Reaction Status Date / Time shellfish derived [Shellfish] Allergy Severe vomiting Verified 08/21/24 15:19 -very ill adhesive Allergy skin red Verified 08/21/24 15:19 and murguia, tears skin aluminum Allergy skin turns Verified 08/21/24 15:19 black, passes out Antihistamines - Allergy heart Verified 08/21/24 15:19 Ethylenediamine palpitations codeine Allergy migraines Verified 08/21/24 15:19 epinephrine Allergy heart Verified 08/21/24 15:19 palpitations fluticasone [From Flonase] Allergy Unknown Verified 08/21/24 15:19 hydrogen peroxide Allergy murguia and Verified 08/21/24 15:19 causes infection latex Allergy passes out Verified 08/21/24 15:19 nickel Allergy turns skin Verified 08/21/24 15:19 black and passes out procaine HCl [From Novocain] Allergy passed Verified 08/21/24 15:19 out- due to epinephrine in it. thiopental sodium Allergy needed cpr Verified 08/21/24 15:19 [From Pentothal] resusitation insulin glargine AdvReac Intermediate Diarrhea, Verified 08/21/24 15:19 [From Lantus U-100 Insulin] Vomiting, upset stomach iron AdvReac Nausea Verified 08/21/24 15:19 methocarbamol [From Robaxin] AdvReac Hallucinati Verified 08/21/24 15:19 ons zinc oxide AdvReac Rash/Hives Verified 08/21/24 15:19 surgical felicita Allergy Severe had to be Uncoded 08/21/24 15:19 removed 2 days post-op petroleum products AdvReac passes out Uncoded 08/21/24 15:19 or does not feel well. (diesel, oils) Surgical - Exam Vital Signs Temp Pulse Resp BP Pulse Ox 98.9 F 82 19 115/58 98 08/21/24 09:39 08/21/24 09:39 08/21/24 09:39 08/21/24 09:39 08/21/24 09:39 Results - Labs 08/23/24 08:29 08/22/24 04:21 Abnormal Lab Results - Last 24 Hours (Table) 08/21/24 08/22/24 08/22/24 Range/Units 12:42 04:21 04:21 RBC (4.10-5.20) X 10*6/uL Hgb (12.0-15.0) g/dL Hct (37.2-46.3) % MCH (27.0-32.0) pg MCHC (32.0-37.0) g/dL RDW (11.5-14.5) % BUN 41.2 H (9.0-27.0) mg/dL Creatinine 3.3 H (0.6-1.5) mg/dL Est GFR (CKD-EPI) 14 L (>=60) Glucose 117 H (70-110) mg/dL POC Glucose (mg/dL) (70-110) mg/dL Calcium 7.9 L (8.7-10.3) mg/dL Phosphorus 1.9 L (2.4-5.1) mg/dL Iron 26 L (50-170) UG/DL % Saturation 8.84 L (12.00-45.00) Crossmatch See Detail 08/22/24 08/22/24 08/23/24 Range/Units 16:34 20:16 06:10 RBC (4.10-5.20) X 10*6/uL Hgb (12.0-15.0) g/dL Hct (37.2-46.3) % MCH (27.0-32.0) pg MCHC (32.0-37.0) g/dL RDW (11.5-14.5) % BUN (9.0-27.0) mg/dL Creatinine (0.6-1.5) mg/dL Est GFR (CKD-EPI) (>=60) Glucose (70-110) mg/dL POC Glucose (mg/dL) 233 H 202 H 135 H (70-110) mg/dL Calcium (8.7-10.3) mg/dL Phosphorus (2.4-5.1) mg/dL Iron (50-170) UG/DL % Saturation (12.00-45.00) Crossmatch 08/23/24 08/23/24 Range/Units 08:29 11:35 RBC 3.00 L (4.10-5.20) X 10*6/uL Hgb 7.5 L (12.0-15.0) g/dL Hct 24.1 L (37.2-46.3) % MCH 25.0 L (27.0-32.0) pg MCHC 31.1 L (32.0-37.0) g/dL RDW 17.9 H (11.5-14.5) % BUN (9.0-27.0) mg/dL Creatinine (0.6-1.5) mg/dL Est GFR (CKD-EPI) (>=60) Glucose (70-110) mg/dL POC Glucose (mg/dL) 145 H (70-110) mg/dL Calcium (8.7-10.3) mg/dL Phosphorus (2.4-5.1) mg/dL Iron (50-170) UG/DL % Saturation (12.00-45.00) Crossmatch Diabetes panel 08/22/24 Range/Units 04:21 Sodium 137 (135-145) mmol/L Potassium 4.3 (3.5-5.5) mmol/L Chloride 102 (96-109) mmol/L Carbon Dioxide 24.5 (21.6-31.8) mmol/L BUN 41.2 H (9.0-27.0) mg/dL Creatinine 3.3 H (0.6-1.5) mg/dL Glucose 117 H (70-110) mg/dL Calcium 7.9 L (8.7-10.3) mg/dL Calcium panel 08/22/24 08/22/24 Range/Units 04:21 04:21 Calcium 7.9 L (8.7-10.3) mg/dL Phosphorus 1.9 L (2.4-5.1) mg/dL Pituitary panel 08/22/24 Range/Units 04:21 Sodium 137 (135-145) mmol/L Potassium 4.3 (3.5-5.5) mmol/L Chloride 102 (96-109) mmol/L Carbon Dioxide 24.5 (21.6-31.8) mmol/L BUN 41.2 H (9.0-27.0) mg/dL Creatinine 3.3 H (0.6-1.5) mg/dL Glucose 117 H (70-110) mg/dL Calcium 7.9 L (8.7-10.3) mg/dL Adrenal panel 08/22/24 Range/Units 04:21 Sodium 137 (135-145) mmol/L Potassium 4.3 (3.5-5.5) mmol/L Chloride 102 (96-109) mmol/L Carbon Dioxide 24.5 (21.6-31.8) mmol/L BUN 41.2 H (9.0-27.0) mg/dL Creatinine 3.3 H (0.6-1.5) mg/dL Glucose 117 H (70-110) mg/dL Calcium 7.9 L (8.7-10.3) mg/dL
[2024-08-23 14:08] VITALS: BMI 32.9
[2024-08-23] MEDS: PEG 3350 (236 GM/BTL) + LYTES 4,000 ML BOTTLE PO ONE (14:55)
[2024-08-23] MEDS: DARBEPOETIN ALFA 60 MCG/0.3 ML SYRINGE SQ SCH (14:55)
[2024-08-23] MEDS: ONDANSETRON 4 MG/2 ML VIAL IVP PRN (15:03)
[2024-08-23 16:40] LABS: Glucose,Whole Blood 152 mg/dL (70-110)
[2024-08-23 19:54] LABS: Glucose,Whole Blood 133 mg/dL (70-110)
[2024-08-23] MEDS: ALPRAZolam 0.25 MG TAB PO PRN (20:58)
[2024-08-24 05:57] LABS: Glucose,Whole Blood 77 mg/dL (70-110)
[2024-08-24 08:01] LABS: HCT 23.3 % (37.2-46.3); HGB 7.1 g/dL (12.0-15.0); MCH 25.1 pg (27.0-32.0); MCHC 30.5 g/dL (32.0-37.0); MCV 82.3 FL (80.0-97.0); NRBC Per 100 WBC 0 X 10*3/uL (0.00-0.01); Platelet Count 183 X 10*3/uL (140-440); RBC 2.83 X 10*6/uL (4.10-5.20); RDW 18.3 % (11.5-14.5); WBC 5.61 X 10*3/uL (4.50-10.00)
[2024-08-24 08:13] LABS: ALT 15 U/L (8-44); AST 32 U/L (13-35); Albumin 2.5 g/dL (3.8-4.9); Albumin/Globulin Ratio 0.96 Ratio (1.60-3.17); Alkaline Phosphatase 81 U/L (41-126); BUN/Creat Ratio 11.74 Ratio (12.00-20.00); Blood Urea Nitrogen 39.9 mg/dL (9.0-27.0); Calcium 7.8 mg/dL (8.7-10.3); Carbon Dioxide 25.6 mmol/L (21.6-31.8); Chloride 98 mmol/L (96-109); Globulin 2.6 g/dL (1.6-3.3); Glucose 74 mg/dL (70-110); Potassium 4.1 mmol/L (3.5-5.5); Sodium 134 mmol/L (135-145); Total Bilirubin 0.4 mg/dL (0.3-1.2); Total Protein 5.1 g/dL (6.2-8.2)
--- NOTE | 2024-08-24 08:34 | P.PN ---
Subjective Progress Note Date: 08/24/24 This is an 78-year-old female who was admitted for anemia after recent dialysis session. Patient reports she had been noticing some increasing shortness of breath for the last couple of days. Hemoglobin on admission was 6.7. Yesterday hemoglobin was 6.3. Patient has received a total of 2 units of packed red blood cells. Labs are not back for today at time of dictation. Patient also has a history of ascites and has been routinely getting paracentesis. Interventional radiology has been consulted. Nephrology are also on consult, patient will have dialysis today. Patient seen this morning sitting up in bed resting comfortably. 08/24/2024 Hemoglobin has increased slightly. Plan is for colonoscopy and EGD today, along with paracentesis. Objective - Vital Signs Vital signs: Vital Signs Temp 98.0 F 08/24/24 07:04 Pulse 65 08/24/24 07:04 Resp 18 08/24/24 07:04 BP 99/48 08/24/24 07:04 Pulse Ox 96 08/24/24 07:04 FiO2 Intake & Output 08/23/24 08/24/24 08/24/24 18:59 06:59 18:59 Intake Total 1180 Output Total 3400 Balance -2220 Weight 81.647 kg Intake: Oral 780 Hemodialysis 400 Output: Hemodialysis 1900 Hemodialysis Net Amount 1500 Other: # Voids 1 3 # Bowel Movements 1 1 - Constitutional General appearance: Present: cooperative, no acute distress - EENT Eyes: Present: PERRLA - Neck Neck: Present: normal ROM. Absent: lymphadenopathy, rigidity - Respiratory Respiratory: bilateral: diminished - Cardiovascular Heart sounds: normal: S1, S2 - Gastrointestinal General gastrointestinal: Present: soft. Absent: tenderness - Integumentary Integumentary: Present: normal, normal turgor - Musculoskeletal Musculoskeletal: Present: generalized weakness - Psychiatric Psychiatric: Present: A&O x's 3 - Labs CBC & Chem 7: 08/24/24 03:10 08/24/24 03:10 Labs: Abnormal Lab Results - Last 24 Hours (Table) 08/22/24 08/23/24 08/23/24 Range/Units 04:21 08:29 11:35 RBC 3.00 L (4.10-5.20) X 10*6/uL Hgb 7.5 L (12.0-15.0) g/dL Hct 24.1 L (37.2-46.3) % MCH 25.0 L (27.0-32.0) pg MCHC 31.1 L (32.0-37.0) g/dL RDW 17.9 H (11.5-14.5) % Sodium (135-145) mmol/L BUN (9.0-27.0) mg/dL Creatinine (0.6-1.5) mg/dL Est GFR (CKD-EPI) (>=60) BUN/Creatinine Ratio (12.00-20.00) Ratio POC Glucose (mg/dL) 145 H (70-110) mg/dL Calcium (8.7-10.3) mg/dL Total Protein (6.2-8.2) g/dL Albumin (3.8-4.9) g/dL Albumin/Globulin Ratio (1.60-3.17) Ratio RBC Folate 1,360 H (280 - 791) ng/mL 08/23/24 08/23/24 08/24/24 Range/Units 16:39 19:53 03:10 RBC 2.83 L (4.10-5.20) X 10*6/uL Hgb 7.1 L (12.0-15.0) g/dL Hct 23.3 L (37.2-46.3) % MCH 25.1 L (27.0-32.0) pg MCHC 30.5 L (32.0-37.0) g/dL RDW 18.3 H (11.5-14.5) % Sodium (135-145) mmol/L BUN (9.0-27.0) mg/dL Creatinine (0.6-1.5) mg/dL Est GFR (CKD-EPI) (>=60) BUN/Creatinine Ratio (12.00-20.00) Ratio POC Glucose (mg/dL) 152 H 133 H (70-110) mg/dL Calcium (8.7-10.3) mg/dL Total Protein (6.2-8.2) g/dL Albumin (3.8-4.9) g/dL Albumin/Globulin Ratio (1.60-3.17) Ratio RBC Folate (280 - 791) ng/mL 08/24/24 Range/Units 03:10 RBC (4.10-5.20) X 10*6/uL Hgb (12.0-15.0) g/dL Hct (37.2-46.3) % MCH (27.0-32.0) pg MCHC (32.0-37.0) g/dL RDW (11.5-14.5) % Sodium 134 L (135-145) mmol/L BUN 39.9 H (9.0-27.0) mg/dL Creatinine 3.4 H (0.6-1.5) mg/dL Est GFR (CKD-EPI) 13 L (>=60) BUN/Creatinine Ratio 11.74 L (12.00-20.00) Ratio POC Glucose (mg/dL) (70-110) mg/dL Calcium 7.8 L (8.7-10.3) mg/dL Total Protein 5.1 L (6.2-8.2) g/dL Albumin 2.5 L (3.8-4.9) g/dL Albumin/Globulin Ratio 0.96 L (1.60-3.17) Ratio RBC Folate (280 - 791) ng/mL Assessment and Plan (1) Anemia Current Visit: Yes Status: Acute Code(s): D64.9 - ANEMIA, UNSPECIFIED SNOMED Code(s): 376370369 (2) Ascites Current Visit: Yes Status: Acute Code(s): R18.8 - OTHER ASCITES SNOMED Code(s): 405075334 (3) ESRD (end stage renal disease) on dialysis Current Visit: Yes Status: Acute Code(s): N18.6 - END STAGE RENAL DISEASE; Z99.2 - DEPENDENCE ON RENAL DIALYSIS SNOMED Code(s): 035424159 (4) Atrial fibrillation Current Visit: No Status: Acute Code(s): I48.91 - UNSPECIFIED ATRIAL FIBRILL ATION SNOMED Code(s): 68610357 (5) CAD (coronary artery disease) Current Visit: No Status: Acute Code(s): I25.10 - ATHSCL HEART DISEASE OF [place] CORONARY ARTERY W/O ANG PCTRS SNOMED Code(s): 82672658 (6) Chronic wound Current Visit: No Status: Acute Code(s): T14.8XXA - OTHER INJURY OF UNSPECIFIED BODY REGION, INITIAL ENCOUNTER SNOMED Code(s): 90396962155968 (7) Cirrhosis of liver with ascites Current Visit: No Status: Acute Code(s): K74.60 - UNSPECIFIED CIRRHOSIS OF LIVER; R18.8 - OTHER ASCITES SNOMED Code(s): 50695013 (8) Diabetes Current Visit: No Status: Acute Code(s): E11.9 - TYPE 2 DIABETES MELLITUS WITHOUT COMPLICATIONS SNOMED Code(s): 24845943 Plan: Await EGD and colonoscopy results today. Plan for paracentesis Check CBC and CMP in the morning. Patient seen and evaluated by nurse practitioner, physician in agreement with phuong collins
--- NOTE | 2024-08-24 10:23 | US ---
EXAMINATION TYPE: US paracentesis abd w/image DATE OF EXAM: 08/24/2024 8:52 AM COMPARISON: prior paracentesis. CLINICAL INDICATION:Female, 78 years old with history of ASCITES; , ascites ATTENDING: Dr. Trevor Lockwood PROCEDURE: Informed consent was obtained. The risks of the procedure were extensively explained incl uding risk of damage to surrounding bowel with perforation and need for additional procedures. Proced ure was performed in the ultrasound procedure suite. Ultrasound imaging of the abdomen demonstrate as citic fluid. An appropriate access site was localized to the right lower abdomen. Timeout was taken p er protocol. The skin was prepped and draped in the usual sterile fashion and then locally anesthetiz ed with 1% lidocaine. The peritoneal cavity was then accessed via a 5-[place] one-step needle/cathete r. Approximately 5700 mL of clear straw-colored fluid was obtained. Postprocedural imaging of the ab domen demonstrate a minimal amount of abdominal fluid. Patient tolerated procedure well without immediate complication. Hemostasis at the procedural site w as obtained with a sterile bandage placed. The patient was monitored in the holding area following th e procedure and was subsequently transferredin stable condition. IMPRESSION: Ultrasound guided paracentesis, with approximately 5700 mL of clear straw-colored fluid drained. No i mmediate complications were evident. [facility], , 08/24/2024 10:21 AM
[2024-08-24 11:12] LABS: Glucose,Whole Blood 76 mg/dL (70-110)
[2024-08-24] MEDS: ALBUMIN HUMAN 25% 50 ML in EMPTY BAG 1 BAG IVPB SCH (11:17)
--- NOTE | 2024-08-24 13:14 | P.PN ---
Subjective Progress Note Date: 08/24/24 SURGICAL PROGRESS NOTE CHIEF COMPLAINT: Low hemoglobin HISTORY OF PRESENT ILLNESS: Patient denies any blood in her stools or black stools. She only drank about half of the bowel prep yesterday. Her stools are not clear. She is scheduled for the EGD today and colonoscopy on . Patient did have a paracentesis this morning with 5.9 L removed. She is also scheduled for hemodialysis today. Hemoglobin today 7.1 PHYSICAL EXAM: VITAL SIGNS: Reviewed. GENERAL: Well-developed in no acute distress. HEENT: No sclera icterus. Extraocular movements grossly intact. Moist buccal mucosa. Head is atraumatic, normocephalic. ABDOMEN: Soft. Nondistended. NEUROLOGIC: Alert and oriented. Cranial nerves II through XII grossly intact. ASSESSMENT: 1. Anemia requiring blood transfusion. No active bleeding 2. History of end-stage renal disease on hemodialysis. PLAN: - Patient scheduled for EGD today - Due to poor bowel prep colonoscopy canceled for today. Will reschedule colonoscopy for . 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 Signing provider agrees with the documented findings, assessment, and plan of care. Objective - Vital Signs Vital signs: Vital Signs Temp 98.0 F 08/24/24 07:04 Pulse 68 08/24/24 09:10 Resp 16 08/24/24 09:10 BP 104/48 08/24/24 09:10 Pulse Ox 97 08/24/24 09:10 FiO2 Intake & Output 08/23/24 08/24/24 08/24/24 18:59 06:59 18:59 Intake Total 1180 Output Total 3400 Balance -2220 Weight 81.647 kg Intake: Oral 780 Hemodialysis 400 Output: Hemodialysis 1900 Hemodialysis Net Amount 1500 Other: # Voids 1 3 # Bowel Movements 1 1 - Labs CBC & Chem 7: 08/24/24 03:10 08/24/24 03:10 Labs: Abnormal Lab Results - Last 24 Hours (Table) 08/23/24 08/23/24 08/24/24 Range/Units 16:39 19:53 03:10 RBC 2.83 L (4.10-5.20) X 10*6/uL Hgb 7.1 L (12.0-15.0) g/dL Hct 23.3 L (37.2-46.3) % MCH 25.1 L (27.0-32.0) pg MCHC 30.5 L (32.0-37.0) g/dL RDW 18.3 H (11.5-14.5) % Sodium (135-145) mmol/L BUN (9.0-27.0) mg/dL Creatinine (0.6-1.5) mg/dL Est GFR (CKD-EPI) (>=60) BUN/Creatinine Ratio (12.00-20.00) Ratio POC Glucose (mg/dL) 152 H 133 H (70-110) mg/dL Calcium (8.7-10.3) mg/dL Total Protein (6.2-8.2) g/dL Albumin (3.8-4.9) g/dL Albumin/Globulin Ratio (1.60-3.17) Ratio // Range/Units 03:10 RBC (4.10-5.20) X 10*6/uL Hgb (12.0-15.0) g/dL Hct (37.2-46.3) % MCH (27.0-32.0) pg MCHC (32.0-37.0) g/dL RDW (11.5-14.5) % Sodium 134 L (135-145) mmol/L BUN 39.9 H (9.0-27.0) mg/dL Creatinine 3.4 H (0.6-1.5) mg/dL Est GFR (CKD-EPI) 13 L (>=60) BUN/Creatinine Ratio 11.74 L (12.00-20.00) Ratio POC Glucose (mg/dL) (70-110) mg/dL Calcium 7.8 L (8.7-10.3) mg/dL Total Protein 5.1 L (6.2-8.2) g/dL Albumin 2.5 L (3.8-4.9) g/dL Albumin/Globulin Ratio 0.96 L (1.60-3.17) Ratio
[2024-08-24] MEDS: PEG 3350 (236 GM/BTL) + LYTES 4,000 ML BOTTLE PO ONE (15:05)
--- NOTE | 2024-08-24 16:35 | P.PN ---
Subjective Patient is seen for follow-up for end-stage renal disease. Scheduled for hemodialysis today No shortness of breath Status post paracentesis with 5.7 L removed Objective - Vital Signs Vital signs: Vital Signs Temp 98.0 F 08/24/24 07:04 Pulse 119 H 08/24/24 14:00 Resp 20 08/24/24 14:00 BP 93/49 08/24/24 14:00 Pulse Ox 94 L 08/24/24 14:00 FiO2 Intake & Output 08/23/24 08/24/24 08/24/24 18:59 06:59 18:59 Intake Total 1180 Output Total 3400 Balance -2220 Weight 81.647 kg Intake: Oral 780 Hemodialysis 400 Output: Hemodialysis 1900 Hemodialysis Net Amount 1500 Other: # Voids 1 3 # Bowel Movements 1 1 - Exam Patient is awake, comfortable, no acute distress Examination of the heart S1 and S2 Examination of the lungs bilateral breath sounds are heard Abdomen is soft obese nontender Examination lower extremities shows chronic edema chronic skin changes, legs are wrapped - Labs CBC & Chem 7: 08/24/24 03:10 08/24/24 03:10 Labs: Abnormal Lab Results - Last 24 Hours (Table) 08/23/24 08/23/24 08/24/24 Range/Units 16:39 19:53 03:10 RBC 2.83 L (4.10-5.20) X 10*6/uL Hgb 7.1 L (12.0-15.0) g/dL Hct 23.3 L (37.2-46.3) % MCH 25.1 L (27.0-32.0) pg MCHC 30.5 L (32.0-37.0) g/dL RDW 18.3 H (11.5-14.5) % Sodium (135-145) mmol/L BUN (9.0-27.0) mg/dL Creatinine (0.6-1.5) mg/dL Est GFR (CKD-EPI) (>=60) BUN/Creatinine Ratio (12.00-20.00) Ratio POC Glucose (mg/dL) 152 H 133 H (70-110) mg/dL Calcium (8.7-10.3) mg/dL Total Protein (6.2-8.2) g/dL Albumin (3.8-4.9) g/dL Albumin/Globulin Ratio (1.60-3.17) Ratio /06/15 Range/Units 03:10 RBC (4.10-5.20) X 10*6/uL Hgb (12.0-15.0) g/dL Hct (37.2-46.3) % MCH (27.0-32.0) pg MCHC (32.0-37.0) g/dL RDW (11.5-14.5) % Sodium 134 L (135-145) mmol/L BUN 39.9 H (9.0-27.0) mg/dL Creatinine 3.4 H (0.6-1.5) mg/dL Est GFR (CKD-EPI) 13 L (>=60) BUN/Creatinine Ratio 11.74 L (12.00-20.00) Ratio POC Glucose (mg/dL) (70-110) mg/dL Calcium 7.8 L (8.7-10.3) mg/dL Total Protein 5.1 L (6.2-8.2) g/dL Albumin 2.5 L (3.8-4.9) g/dL Albumin/Globulin Ratio 0.96 L (1.60-3.17) Ratio Assessment and Plan Assessment: 1. End-stage renal disease maintained on hemodialysis on Friday schedule via right chest permacath. 2. Anemia of chronic kidney disease with component of acute blood loss. On Aranesp. Surgery on consult. 3. Liver cirrhosis. 4. Volume overload. 5. Hypervolemic hyponatremia. 6. Chronic diastolic CHF. Plan: Repeat hemodialysis today DC sodium bicarb Continue with increased dose of Aranesp
[2024-08-24 17:29] LABS: Glucose,Whole Blood 50 mg/dL (70-110)
[2024-08-24 19:12] LABS: Glucose,Whole Blood 118 mg/dL (70-110)
[2024-08-24 20:21] LABS: HCT 26.1 % (37.2-46.3); MCH 25.1 pg (27.0-32.0); MCHC 30.7 g/dL (32.0-37.0); MCV 81.8 fL (80.0-97.0); Platelet Count 191 10*3/uL (140-440); RBC 3.19 10*6/uL (4.10-5.20); RDW 18.6 % (11.5-14.5); WBC 7.75 10*3/uL (4.50-10.00)
[2024-08-24 20:31] LABS: African American GFR (CKD) 30 (>60 ml/min/1.73 sqM); Anion Gap 11 mmol/L; Blood Urea Nitrogen 20 mg/dL (7-17); Calcium 8.1 mg/dL (8.4-10.2); Carbon Dioxide 26 mmol/L (22-30); Chloride 95 mmol/L (98-107); Glucose 108 mg/dL (74-99); Magnesium 2.2 mg/dL (1.6-2.3); Non-African American GFR(CKD) 26 (>60 ml/min/1.73 sqM); Potassium 3.6 mmol/L (3.5-5.1); Sodium 132 mmol/L (137-145)
[2024-08-24 20:59] LABS: Glucose,Whole Blood 130 mg/dL (70-110)
[2024-08-25 06:11] LABS: Glucose,Whole Blood 83 mg/dL (70-110)
[2024-08-25 08:29] LABS: ALT 15 U/L (8-44); AST 33 U/L (13-35); Albumin 2.6 g/dL (3.8-4.9); Albumin/Globulin Ratio 1.18 Ratio (1.60-3.17); Alkaline Phosphatase 80 U/L (41-126); BUN/Creat Ratio 8.58 Ratio (12.00-20.00); Blood Urea Nitrogen 20.6 mg/dL (9.0-27.0); Calcium 7.7 mg/dL (8.7-10.3); Carbon Dioxide 26.4 mmol/L (21.6-31.8); Chloride 98 mmol/L (96-109); Globulin 2.2 g/dL (1.6-3.3); Glucose 72 mg/dL (70-110); Potassium 4.1 mmol/L (3.5-5.5); Sodium 134 mmol/L (135-145); Total Bilirubin 0.5 mg/dL (0.3-1.2); Total Protein 4.8 g/dL (6.2-8.2)
[2024-08-25 08:49] LABS: HCT 22.6 % (37.2-46.3); HGB 6.9 g/dL (12.0-15.0); MCHC 30.5 g/dL (32.0-37.0); MCV 81.9 FL (80.0-97.0); Mean Platelet Volume 11.1 FL (9.5-12.2); NRBC Per 100 WBC 0 X 10*3/uL (0.00-0.01); Platelet Count 177 X 10*3/uL (140-440); RBC 2.76 X 10*6/uL (4.10-5.20); RDW 18.6 % (11.5-14.5); WBC 6.06 X 10*3/uL (4.50-10.00)
--- NOTE | 2024-08-25 09:06 | P.PN ---
Subjective Progress Note Date: 08/25/24 Principal diagnosis: End-stage renal disease with ascites. The patient is an 78-year-old white female scheduled for colonoscopy due to poor prep yesterday. She is scheduled for tomorrow. Unfortunately she is nonambulatory she is bedridden. Underlying history of ascites with end-stage renal disease. Blood pressure stable today Objective - Vital Signs Vital signs: Vital Signs Temp 98.1 F 08/25/24 08:00 Pulse 64 08/25/24 08:00 Resp 16 08/25/24 08:00 BP 106/60 08/25/24 08:00 Pulse Ox 95 08/25/24 08:00 FiO2 Intake & Output 08/24/24 08/25/24 08/25/24 18:59 06:59 18:59 Intake Total 1050 Output Total 1900 Balance -850 Intake: Intake, IV Titration 150 Amount Albumin Human 25% 50 ml 150 In Empty Bag 1 bag @ 200 mls/hr IVPB Q15M [facility] Rx#: [id number] Hemodialysis 900 Output: Hemodialysis 1400 Hemodialysis Net Amount 500 Other: Voiding Method Diaper # Voids 1 - Constitutional General appearance: Present: average body habitus, cooperative - EENT Eyes: Absent: abnormal pupil - Neck Neck: Absent: lymphadenopathy - Respiratory Respiratory: bilateral: CTA - Cardiovascular Rhythm: irregularly irregular Abnormal Heart Sounds: Absent: S3 Gallop - Gastrointestinal General gastrointestinal: Present: soft. Absent: tenderness - Labs CBC & Chem 7: 08/25/24 02:33 08/25/24 02:33 Labs: Abnormal Lab Results - Last 24 Hours (Table) 08/24/24 08/24/24 08/24/24 Range/Units 17:26 19:10 20:03 RBC 3.19 L (4.10-5.20) 10*6/uL Hgb 8.0 L (12.0-15.0) g/dL Hct 26.1 L (37.2-46.3) % MCH 25.1 L (27.0-32.0) pg MCHC 30.7 L (32.0-37.0) g/dL RDW 18.6 H (11.5-14.5) % Sodium (137-145) mmol/L Chloride (98-107) mmol/L BUN (7-17) mg/dL Creatinine (0.52-1.04) mg/dL Est GFR (CKD-EPI) (>=60) BUN/Creatinine Ratio (12.00-20.00) Ratio Glucose (74-99) mg/dL POC Glucose (mg/dL) 50 L 118 H (70-110) mg/dL Calcium (8.4-10.2) mg/dL Total Protein (6.2-8.2) g/dL Albumin (3.8-4.9) g/dL Albumin/Globulin Ratio (1.60-3.17) Ratio 08/24/24 08/24/24 08/25/24 Range/Units 20:03 20:58 02:33 RBC 2.76 L (4.10-5.20) 10*6/uL Hgb 6.9 A* (12.0-15.0) g/dL Hct 22.6 L (37.2-46.3) % MCH 25.0 L (27.0-32.0) pg MCHC 30.5 L (32.0-37.0) g/dL RDW 18.6 H (11.5-14.5) % Sodium 132 L (137-145) mmol/L Chloride 95 L (98-107) mmol/L BUN 20 H (7-17) mg/dL Creatinine 1.81 H (0.52-1.04) mg/dL Est GFR (CKD-EPI) (>=60) BUN/Creatinine Ratio (12.00-20.00) Ratio Glucose 108 H (74-99) mg/dL POC Glucose (mg/dL) 130 H (70-110) mg/dL Calcium 8.1 L (8.4-10.2) mg/dL Total Protein (6.2-8.2) g/dL Albumin (3.8-4.9) g/dL Albumin/Globulin Ratio (1.60-3.17) Ratio 08/25/24 Range/Units 02:33 RBC (4.10-5.20) 10*6/uL Hgb (12.0-15.0) g/dL Hct (37.2-46.3) % MCH (27.0-32.0) pg MCHC (32.0-37.0) g/dL RDW (11.5-14.5) % Sodium 134 L (137-145) mmol/L Chloride (98-107) mmol/L BUN (7-17) mg/dL Creatinine 2.4 H (0.52-1.04) mg/dL Est GFR (CKD-EPI) 20 L (>=60) BUN/Creatinine Ratio 8.58 L (12.00-20.00) Ratio Glucose (74-99) mg/dL POC Glucose (mg/dL) (70-110) mg/dL Calcium 7.7 L (8.4-10.2) mg/dL Total Protein 4.8 L (6.2-8.2) g/dL Albumin 2.6 L (3.8-4.9) g/dL Albumin/Globulin Ratio 1.18 L (1.60-3.17) Ratio Assessment and Plan (1) Anemia Current Visit: Yes Status: Acute Code(s): D64.9 - ANEMIA, UNSPECIFIED SNOMED Code(s): 215404763 (2) ESRD (end stage renal disease) on dialysis Current Visit: Yes Status: Acute Code(s): N18.6 - END STAGE RENAL DISEASE; Z99.2 - DEPENDENCE ON RENAL DIALYSIS SNOMED Code(s): 510602415 (3) Atrial fibrillation Current Visit: No Status: Acute Code(s): I48.91 - UNSPECIFIED ATRIAL FIBRILLATION SNOMED Code(s): 69794477 (4) Diabetes Current Visit: No Status: Acute Code(s): E11.9 - TYPE 2 DIABETES MELLITUS WITHOUT COMPLICATIONS SNOMED Code(s): 37288410 Plan: Continue current regimen of treatment. Check CBC and CMP in AM. Colonoscopy in a.m. Patient is clinically improved since paracentesis. Time with Patient: Greater than 30
[2024-08-25 11:16] LABS: Glucose,Whole Blood 169 mg/dL (70-110)
--- NOTE | 2024-08-25 11:59 | P.CRDCN ---
History of Present Illness History of present illness: HISTORY OF PRESENT ILLNESS: This is a 78-year-old female with a past medical history significant for normal coronary arteries, nonischemic cardiomyopathy, atrial tachycardia, paroxysmal a trial fibrillation, end-stage renal disease on hemodialysis. Patient follows in the office with Dr. Guillen. We have been asked to see the patient in consultation for multiple PVCs. Patient examined at the bedside. Patient was directed to come to the emergency room after dialysis and was found to be anemic. Patient does have a history of anemia. Patient's Eliquis has been placed on hold. She is scheduled for endoscopy tomorrow. She denies any chest pain or pressure. Denies any shortness of breath. She does report feeling occasional palpitations. DIAGNOSTICS: - EKG reveals atrial fibrillation with controlled ventricular rate - Chest xray cardiomegaly and mild pulmonary vascular congestion - Laboratory data: WBC 6.06. Hemoglobin 6.9. Platelet count 177. Sodium 134. Potassium 4.1. BUN 20.6. Creatinine 2.4. Troponin negative x 1 - Current home cardiac medications include Eliquis 2.5 mg twice a day, aspirin 81 mg daily, Lipitor 20 mg daily, Lasix 80 mg daily, metoprolol succinate 25 mg twice a day, midodrine 10 mg 3 times a day, Entresto 24-26 mg twice a day. - Most recent echocardiogram obtained in June 2024 revealing ejection fraction 55 to 60%, trace to mild mitral regurgitation, mild tricuspid regurgitation, severe concentric LVH - Cardiac catheterization history: April 2019 revealing normal coronary arteries REVIEW OF SYSTEMS: At the time of my exam: CONSTITUTIONAL: Denies fever or chills. HEENT: Denies blurred vision, vision changes, or eye pain. Denies hemoptysis CARDIOVASCULAR: Denies chest pain. Denies orthopnea. Denies PND. Denies palpitations RESPIRATORY: Denies shortness of breath. GASTROINTESTINAL: Denies abdominal pain. Denies nausea or vomiting. HEMATOLOGIC: Denies bleeding disorders. GENITOURINARY: Denies any blood in urine. SKIN: Denies pruitis. Denies rash. PHYSICAL EXAM: VITAL SIGNS: Reviewed. GENERAL: Well-developed in no acute distress. HEENT: Head is normocephalic. Pupils are equal, round. Sclerae anicteric. Mucous membranes of the mouth are moist. Neck supple. No JVD or thyromegaly LUNGS: Respirations even and unlabored. Lungs essentially clear to auscultation bilaterally. HEART: Irregular rate and rhythm. S1 and S2 heard. ABDOMEN: Soft. Nondistended. Nontender. EXTREMITIES: Normal range of motion. No clubbing or cyanosis. Peripheral pulses intact. No lower extremity edema NEUROLOGIC: Awake and alert. Oriented x 3. ASSESSMENT: Acute on chronic anemia Intolerance to iron therapy Ascites, status post paracentesis with removal of 5.7 L, 08/24/2024 Paroxysmal atrial fibrillation Occasional PVCs Severe concentric LVH History of atrial tachycardia History of nonischemic cardiomyopathy with recovered EF Normal coronary arteries, per cath April 2019 History of end-stage renal disease on hemodialysis PLAN: No need to repeat echocardiogram as this was performed in June 2024 Eliquis remains on hold. Patient scheduled for endoscopy on . Recommend eventual Watchman device. Continue Lipitor, Lasix, metoprolol, midodrine, Entresto Continue telemetry monitoring. Patient currently with occasional PVCs. Further recommendations pending patient course. Nurse practitioner note has been reviewed by physician. Signing provider agrees with the documented findings, assessment, and plan of care documented by HY[employer] SUPERVISOR as a scribe. Past Medical History Past Medical History: Atrial Fibrillation, Coronary Artery Disease (CAD), CVA/TIA, Diabetes Mellitus, Dialysis, Deep Vein Thrombosis (DVT), Hypertension, Myocardial Infarction (OR), Osteoarthritis (OA) Additional Past Medical History / Comment(s): hx tia, hx stroke behind left eye., lt eye macular , states hospitalized with Covid April 2019 with life support and stage 3 kidney failure., hx of fall with hip fx and surgery 01/13/22 went to [facility] for Rehab. DVT during ., varicose veins, states painful sore left heel., hx of t.b. as a child with scarring on lungs. dialysis since 04/2024, and friday Last Myocardial Infarction Date:: unknown date History of Any Multi-Drug Resistant Organisms: MRSA, VRE Date of last positivie culture/infection: 09/09/22 MRSA & VRE ([facility]-Scanned) MDRO Source:: Blood Culture Past Surgical History: Adenoidectomy, Hysterectomy, Orthopedic Surgery, Tonsillectomy, Tubal Ligation Additional Past Surgical History / Comment(s): pilonidal cyst twice as child, rt knee arthroscopy, krystyna cataracts, krystyna great toe sx, ORIF Left hip (01/13/22) Past Anesthesia/Blood Transfusion Reactions: Previous Problems w/ Anesthesia, Postoperative Nausea & Vomiting (PONV) Additional Past Anesthesia/Blood Transfusion Reaction / Comment(s): difficulty waking up after sx. clausterphobia. 1961 blood transfusion(during child ) pt stated had palpitations after 2nd unit given Smoking Status: Never smoker - Past Family History Mother Family Medical History: Cancer Additional Family Medical History / Comment(s): lung cancer Father Family Medical History: Coronary Artery Disease (CAD) Additional Family Medical History / Comment(s): heart disease, kidney disese Medications and Allergies Home Medications Medication Instructions Recorded Confirmed Type Sacubitril/Valsartan [Entresto 24 1 tab PO BID 01/12/22 08/21/24 History mg-26 mg Tablet] Omeprazole [PriLOSEC] 20 mg PO DAILY 03/05/22 08/21/24 History Ipratropium [place] [Atrovent Hfa] 2 puff INHALATION RT-QID 09/09/22 08/21/24 History ALPRAZolam [Xanax] 0.25 mg PO TID PRN 05/30/23 08/21/24 History Ammonium Lactate Lotion 1 applic TOPICAL BID PRN 05/30/23 08/21/24 History [Lac-Hydrin 12% Lotion] Aspirin 81 mg PO DAILY 05/30/23 08/21/24 History Atorvastatin [Lipitor] 20 mg PO DAILY 05/30/23 08/21/24 History Cholecalciferol [Vitamin D3 (25 25 mcg PO DAILY 05/30/23 08/21/24 History Mcg = 1000 Iu)] Escitalopram [Lexapro] 10 mg PO DAILY 05/30/23 08/21/24 History Furosemide [Lasix] 80 mg PO DAILY 05/30/23 08/21/24 History Insulin Glargine,Hum.rec.anlog 16 - 18 units SQ HS PRN 05/30/23 08/21/24 History [Toujeo Max Solostar] Insulin Glargine,Hum.rec.anlog 24 units SQ DAILY 05/30/23 08/21/24 History [Toujeo Max Solostar] Multivit-Min/FA/Lycopen/Lutein 1 tab PO DAILY 05/30/23 08/21/24 History [Centrum Silver Tablet] Albuterol Inhaler [Ventolin Hfa 2 puff INHALATION RT-QID PRN 01/09/24 08/21/24 History Inhaler] Ascorbic Acid [Vitamin C] 1,000 mg PO DAILY 01/09/24 08/21/24 History Vit C/E/Zn/Coppr/Lutein/Zeaxan 1 cap PO BID 01/09/24 08/21/24 History [Preservision Areds 2 Softgel] Magnesium Oxide [Mag-Ox] 400 mg PO DAILY #30 tab 01/16/24 08/21/24 Rx Nystatin 100,000Unit/gm Cream 1 applic TOPICAL BID #60 g 01/16/24 08/21/24 Rx [Mycostatin Cream] Sodium Bicarbonate Tab 650 mg PO BID #60 tab 01/16/24 08/21/24 Rx Periguard Ointment 1 applic TOPICAL DIRECTED 03/03/24 08/21/24 History Vits A and D/White Pet/Lanolin [A 1 applic TOPICAL DAILY PRN 03/03/24 08/21/24 History and D Ointment] traMADol HCL 50 mg PO TID PRN 05/20/24 08/21/24 History Apixaban [Eliquis] 2.5 mg PO BID #60 tab 07/14/24 08/21/24 Rx Metoprolol Succinate (ER) [Toprol 25 mg PO BID #60 tab 07/14/24 08/21/24 Rx XL] Midodrine [ProAmatine] 10 mg PO AC-TID #90 tab 07/14/24 08/21/24 Rx Ondansetron Odt [Zofran Odt] 4 mg PO Q8HR PRN #15 tab 07/29/24 08/21/24 Rx Allergies Allergy/AdvReac Type Severity Reaction Status Date / Time shellfish derived [Shellfish] Allergy Severe vomiting Verified 08/21/24 15:19 -very ill adhesive Allergy skin red Verified 08/21/24 15:19 and murguia, tears skin aluminum Allergy skin turns Verified 08/21/24 15:19 black, passes out Antihistamines - Allergy heart Verified 08/21/24 15:19 Ethylenediamine palpitations codeine Allergy migraines Verified 08/21/24 15:19 epinephrine Allergy heart Verified 08/21/24 15:19 palpitations fluticasone [From Flonase] Allergy Unknown Verified 08/21/24 15:19 hydrogen peroxide Allergy murguia and Verified 08/21/24 15:19 causes infection latex Allergy passes out Verified 08/21/24 15:19 nickel Allergy turns skin Verified 08/21/24 15:19 black and passes out procaine HCl [From Novocain] Allergy passed Verified 08/21/24 15:19 out- due to epinephrine in it. thiopental sodium Allergy needed cpr Verified 08/21/24 15:19 [From Pentothal] resusitation insulin glargine AdvReac Intermediate Diarrhea, Verified 08/21/24 15:19 [From Lantus U-100 Insulin] Vomiting, upset stomach iron AdvReac Nausea Verified 08/21/24 15:19 methocarbamol [From Robaxin] AdvReac Hallucinati Verified 08/21/24 15:19 ons zinc oxide AdvReac Rash/Hives Verified 08/21/24 15:19 surgical felicita Allergy Severe had to be Uncoded 08/21/24 15:19 removed 2 days post-op petroleum products AdvReac passes out Uncoded 08/21/24 15:19 or does not feel well. (diesel, oils) Physical Exam Vitals: Vital Signs Temp Pulse Resp BP BP Pulse Ox 08/25/24 08:00 98.1 F 64 16 106/60 95 08/25/24 06:16 91/49 08/25/24 00:59 98.3 F 69 17 102/61 96 08/24/24 22:39 109 H 98/59 08/24/24 19:30 98.2 F 70 16 90/46 99 08/24/24 17:27 98.1 F 69 17 112/66 96 08/24/24 14:00 119 H 20 93/49 94 L 08/24/24 12:18 106/48 Intake and Output 08/24/24 08/25/24 08/25/24 22:59 06:59 14:59 Intake Total 1050 Output Total 1900 Balance -850 Intake: Intake, IV Titration 150 Amount Albumin Human 25% 50 ml 150 In Empty Bag 1 bag @ 200 mls/hr IVPB Q15M [facility] Rx#: [id number] Hemodialysis 900 Output: Hemodialysis 1400 Hemodialysis Net Amount 500 Other: Voiding Method Diaper # Voids 1 Results 08/25/24 02:33 08/25/24 02:33 Cardiac Enzymes 08/24/24 08/25/24 Range/Units 20:03 02:33 AST 33 (13-35) U/L Troponin I 0.013 (0.000-0.034) ng/mL CBC 08/24/24 08/25/24 Range/Units 20:03 02:33 WBC 7.75 6.06 (4.50-10.00) 10*3/uL RBC 3.19 L 2.76 L (4.10-5.20) 10*6/uL Hgb 8.0 L 6.9 A* (12.0-15.0) g/dL Hct 26.1 L 22.6 L (37.2-46.3) % Plt Count 191 177 (140-440) 10*3/uL Comprehensive Metabolic Panel 08/24/24 08/25/24 Range/Units 20:03 02:33 Sodium 132 L 134 L (137-145) mmol/L Potassium 3.6 4.1 (3.5-5.1) mmol/L Chloride 95 L 98 (98-107) mmol/L Carbon Dioxide 26 26.4 (22-30) mmol/L BUN 20 H 20.6 (7-17) mg/dL Creatinine 1.81 H 2.4 H (0.52-1.04) mg/dL Glucose 108 H 72 (74-99) mg/dL Calcium 8.1 L 7.7 L (8.4-10.2) mg/dL AST 33 (13-35) U/L ALT 15 (8-44) U/L Alkaline Phosphatase 80 (41-126) U/L Total Protein 4.8 L (6.2-8.2) g/dL Albumin 2.6 L (3.8-4.9) g/dL Current Medications Generic Name Dose Route Start Last Admin Trade Name Freq PRN Reason Stop Dose Admin Acetaminophen 650 mg 08/21/24 14:33 Acetaminophen Tab 325 Mg Tab PO Q6HR PRN Mild Pain or Fever > 100.5 Hydrocodone Bitart/Acetaminophen 1 each 08/21/24 14:33 Hydrocodone/Apap 5-325mg 1 Each Tab PO Q4HR PRN Moderate Pain (Scale 4 to 6) Al Hydroxide/Mg Hydroxide 15 ml 08/21/24 14:33 Mag Hydrox/Al Hydrox/Simeth 30 Ml Cup PO Q6HR PRN Indigestion Albuterol Sulfate 2.5 mg 08/21/24 20:11 Albuterol Nebulized 2.5 Mg/3 Ml INHALATION RT-QID PRN Shortness Of Breath Alprazolam 0.25 mg 08/21/24 14:33 08/23/24 20:58 Alprazolam 0.25 Mg Tab PO 0.25 mg TID PRN Administration Anxiety Ascorbic Acid 1,000 mg 08/23/24 09:00 08/25/24 10:04 Ascorbic Acid 500 Mg Tab PO 1,000 mg DAILY [facility] Administration Atorvastatin Calcium 20 mg 08/22/24 09:00 08/25/24 10:04 Atorvastatin 20 Mg Tab PO 20 mg DAILY [facility] Administration Calcium Carbonate/Glycine 1,000 mg 08/21/24 14:33 Calcium Carbonate 500 Mg Chewable PO Q4HR PRN Dyspepsia Cholecalciferol 25 mcg 08/23/24 09:00 08/25/24 10:05 Cholecalciferol 25 Mcg (1000 Iu) Tablet PO 25 mcg DAILY [facility] Administration Darbepoetin Fernando 60 mcg 08/23/24 13:00 08/23/24 14:55 Darbepoetin Fernando 60 Mcg/0.3 Ml Syringe SQ 60 mcg Q7D [facility] Administration Escitalopram Oxalate 10 mg 08/22/24 09:00 08/25/24 10:04 Escitalopram 10 Mg Tab PO 10 mg DAILY [facility] Administration Furosemide 80 mg 08/22/24 10:15 08/25/24 10:04 Furosemide 40 Mg Tab PO 80 mg DAILY [facility] Administration Magnesium Oxide 400 mg 08/23/24 09:00 08/25/24 10:04 Magnesium Oxide 400 Mg Tab PO 400 mg DAILY [facility] Administration Melatonin 3 mg 08/21/24 14:33 Melatonin 3 Mg Tablet PO HS PRN Insomnia Metoprolol Succinate 25 mg 08/22/24 10:15 08/25/24 10:04 Metoprolol Succinate (Er) 25 Mg Tab.Er.24h PO 25 mg BID [facility] Administration Midodrine 10 mg 08/22/24 07:30 08/25/24 06:15 Midodrine 5 Mg Tab PO 10 mg AC-TID [facility] Administration Naloxone HCl 0.2 mg 08/21/24 13:31 Naloxone 0.4 Mg/Ml 1 Ml Vial IV Q2M PRN Opioid Reversal [place]ache[place] (Insulin 24 units 08/22/24 11:00 08/25/24 07:00 Glargine) Max SQ Not Given Solostar 300 Unit/Ml DAILY@0700 [facility] Insulin [place]achelo (Insulin 15 units 08/22/24 21:00 08/25/24 03:41 Glargine) Max SQ Not Given Solostar 300 Unit/Ml [facility] Insulin Ondansetron HCl 4 mg 08/21/24 14:33 08/23/24 15:03 Ondansetron 4 Mg/2 Ml Vial IVP 4 mg Q8HR PRN Administration Nausea And Vomiting Pantoprazole Sodium 40 mg 08/22/24 10:15 08/25/24 10:04 Pantoprazole 40 Mg/10 Ml Vial IVP 40 mg BID [facility] Administration Petrolatum 1 applic 08/22/24 20:47 Petrolatum, White Oint 454 Gm Jar TOPICAL TID PRN Skin Irritation Protocol Sacubitril/Valsartan 1 each 08/22/24 10:15 08/25/24 10:04 Sacubitril/Valsartan 24 Mg-26 Mg Tablet PO 1 each BID [facility] Administration Sodium Bicarbonate 650 mg 08/21/24 21:00 08/25/24 10:04 Sodium Bicarbonate Tab 650 Mg Tab PO 650 mg BID [facility] Administration Tiotropium [place] 2 puff 08/22/24 12:00 08/25/24 08:42 Tiotropium 2.5 Mcg Inhaler INHALATION Not Given RT-DAILY [facility] Tramadol HCl 50 mg 08/21/24 20:11 08/24/24 07:48 Tramadol 50 Mg Tab PO 50 mg TID PRN Administration Pain Intake and Output 08/24/24 08/25/24 08/25/24 22:59 06:59 14:59 Intake Total 1050 Output Total 1900 Balance -850 Intake: Intake, IV Titration 150 Amount Albumin Human 25% 50 ml 150 In Empty Bag 1 bag @ 200 mls/hr IVPB Q15M [facility] Rx#: [id number] Hemodialysis 900 Output: Hemodialysis 1400 Hemodialysis Net Amount 500 Other: Voiding Method Diaper # Voids 1 08/25/24 02:33 08/25/24 02:33
[2024-08-25 12:18] LABS: Basophils # (A) 0.05 10*3/uL (0.00-0.10); Basophils % (A) 0.8 %; Eosinophils # (A) 0.33 10*3/uL (0.04-0.35); Eosinophils % (A) 5.5 %; HCT 23.7 % (37.2-46.3); HGB 7.5 g/dL (12.0-15.0); Lymphocytes # (A) 1.16 10*3/uL (0.90-5.00); Lymphocytes % (A) 19.3 %; MCH 25.6 pg (27.0-32.0); MCHC 31.6 g/dL (32.0-37.0); MCV 80.9 fL (80.0-97.0); Monocytes # (A) 0.61 10*3/uL (0.20-1.00); Monocytes % (A) 10.1 %; Neutrophils # (A) 3.82 10*3/uL (1.80-7.70); Neutrophils % (A) 63.6 %; Platelet Count 202 10*3/uL (140-440); RBC 2.93 10*6/uL (4.10-5.20); RDW 18.5 % (11.5-14.5); WBC 6.01 10*3/uL (4.50-10.00)
--- NOTE | 2024-08-25 12:52 | P.PN ---
Subjective Progress Note Date: 08/25/24 SURGICAL PROGRESS NOTE CHIEF COMPLAINT: Low hemoglobin HISTORY OF PRESENT ILLNESS: Patient denies any blood in her stools or black stools. Patient is going slowly with the bowel prep. Nursing staff has adjusted flavoring of the bowel prep. She had the paracentesis yesterday and hemodialysis. She reports some improvement in her abdominal pain after the paracentesis. Afebrile. Hemoglobin 6.9 up to 7.5 PHYSICAL EXAM: VITAL SIGNS: Reviewed. GENERAL: Well-developed in no acute distress. HEENT: No sclera icterus. Extraocular movements grossly intact. Moist buccal mucosa. Head is atraumatic, normocephalic. ABDOMEN: Soft. Nondistended. NEUROLOGIC: Alert and oriented. Cranial nerves II through XII grossly intact. ASSESSMENT: 1. Anemia requiring blood transfusion. No active bleeding 2. History of end-stage renal disease on hemodialysis. PLAN: -Patient scheduled for EGD and colonoscopy tomorrow with Dr. Nick Bello bowel prep today -Clear liquid diet -N.p.o. after midnight Physician Lens Coating Technician note has been reviewed by physician. Signing provider agrees with the documented findings, assessment, and plan of care. Objective - Vital Signs Vital signs: Vital Signs Temp 98.1 F 08/25/24 08:00 Pulse 64 08/25/24 08:00 Resp 16 08/25/24 08:00 BP 106/60 08/25/24 08:00 Pulse Ox 95 08/25/24 08:00 FiO2 Intake & Output 08/24/24 08/25/24 08/25/24 18:59 06:59 18:59 Intake Total 1050 Output Total 1900 Balance -850 Intake: Intake, IV Titration 150 Amount Albumin Human 25% 50 ml 150 In Empty Bag 1 bag @ 200 mls/hr IVPB Q15M [facility] Rx#: [id number] Hemodialysis 900 Output: Hemodialysis 1400 Hemodialysis Net Amount 500 Other: Voiding Method Diaper # Voids 1 - Labs CBC & Chem 7: 08/25/24 11:42 08/25/24 02:33 Labs: Abnormal Lab Results - Last 24 Hours (Table) 08/24/24 08/24/24 08/24/24 Range/Units 17:26 19:10 20:03 RBC 3.19 L (4.10-5.20) 10*6/uL Hgb 8.0 L (12.0-15.0) g/dL Hct 26.1 L (37.2-46.3) % MCH 25.1 L (27.0-32.0) pg MCHC 30.7 L (32.0-37.0) g/dL RDW 18.6 H (11.5-14.5) % Sodium (137-145) mmol/L Chloride (98-107) mmol/L BUN (7-17) mg/dL Creatinine (0.52-1.04) mg/dL Est GFR (CKD-EPI) (>=60) BUN/Creatinine Ratio (12.00-20.00) Ratio Glucose (74-99) mg/dL POC Glucose (mg/dL) 50 L 118 H (70-110) mg/dL Calcium (8.4-10.2) mg/dL Total Protein (6.2-8.2) g/dL Albumin (3.8-4.9) g/dL Albumin/Globulin Ratio (1.60-3.17) Ratio 08/24/24 08/24/24/07/16 Range/Units 20:03 20:58 02:33 RBC 2.76 L (4.10-5.20) 10*6/uL Hgb 6.9 A* (12.0-15.0) g/dL Hct 22.6 L (37.2-46.3) % MCH 25.0 L (27.0-32.0) pg MCHC 30.5 L (32.0-37.0) g/dL RDW 18.6 H (11.5-14.5) % Sodium 132 L (137-145) mmol/L Chloride 95 L (98-107) mmol/L BUN 20 H (7-17) mg/dL Creatinine 1.81 H (0.52-1.04) mg/dL Est GFR (CKD-EPI) (>=60) BUN/Creatinine Ratio (12.00-20.00) Ratio Glucose 108 H (74-99) mg/dL POC Glucose (mg/dL) 130 H (70-110) mg/dL Calcium 8.1 L (8.4-10.2) mg/dL Total Protein (6.2-8.2) g/dL Albumin (3.8-4.9) g/dL Albumin/Globulin Ratio (1.60-3.17) Ratio 08/25/24 08/25/24 08/25/24 Range/Units 02:33 11:15 11:42 RBC 2.93 L (4.10-5.20) 10*6/uL Hgb 7.5 L (12.0-15.0) g/dL Hct 23.7 L (37.2-46.3) % MCH 25.6 L (27.0-32.0) pg MCHC 31.6 L (32.0-37.0) g/dL RDW 18.5 H (11.5-14.5) % Sodium 134 L (137-145) mmol/L Chloride (98-107) mmol/L BUN (7-17) mg/dL Creatinine 2.4 H (0.52-1.04) mg/dL Est GFR (CKD-EPI) 20 L (>=60) BUN/Creatinine Ratio 8.58 L (12.00-20.00) Ratio Glucose (74-99) mg/dL POC Glucose (mg/dL) 169 H (70-110) mg/dL Calcium 7.7 L (8.4-10.2) mg/dL Total Protein 4.8 L (6.2-8.2) g/dL Albumin 2.6 L (3.8-4.9) g/dL Albumin/Globulin Ratio 1.18 L (1.60-3.17) Ratio
--- NOTE | 2024-08-25 15:33 | CDI ---
Documentation Clarification Form Date: 08/25/2024 02:59:41 PM From: Amaris Vizcarra RN CDIS Phone: [phone] Admit Date: 08/21/2024 01:32:00 PM Patient Name: Bel Seth I Visit Number: [id number] Discharge Date: ATTENTION: The Clinical Documentation Specialists (CDI) and [facility] Coding Staff appreciate your assistance in clarifying documentation. Please respond to the clarification below the line at the bottom and electronically sign. The CDI & [facility] Coding staff will review the response and follow-up if needed. Please note: Queries are made part of the Legal Health Record. If you have any questions, please contact the author of this message via ITS. Doctor: Luis Shirley There is documentation of a chronic wound is documented Medicine notes, 08/23/2024. Additional specificity regarding the etiology and severity of the wound is requested. Patient history/risk factors: 78 year old female presents to the ED with abnormal hemoglobin, shortness of breath, abdominal distention and lower extremity swelling. History of ESRD, Paracentesis, Dialysis and Bed ridden. Medicine notes. Clinical Indicators: Wound assessment: Right lower buttock lengh 4cm, width 05cm granulation quality pink, Drainage serous. Wound comment three areas open other two 1 x 1cm and 1.5 x 0.5 cm Treatment: Abdominal pad, Hydrophor Ointment TID PRN, Turn patient 2QH, Absorbant underpad, Check hourly for incontinence, Zinc past, Barrier protection. Please clarify the etiology and severity of the wound: Etiology: [ ] Non-pressure chronic ulcer due to diabetes [ ] Non-pressure chronic ulcer due to arterial insufficiency [ ] Non-pressure chronic ulcer due to venous insufficiency [ ] Deep tissue injury [ x ] Pressure Ulcer stage [ ] Unstageable pressure ulcer [ ] Other condition, please specify [ ] Unable to determine Severity: [ ] Limited to breakdown of skin [ ] With fat layer exposed [ ] With necrosis of muscle [ ] With necrosis of bone [ ] Other, Please specify [ ] Unable to determine Clinical Definitions: Stage 1 Pressure Ulcer: intact skin, non-blanching redness of local area Stage 2 Pressure Ulcer: Partial thickness, loss of dermis, pink wound bed Stage 3 Pressure Ulcer: Full thickness tissue loss Stage 4 Pressure Ulcer: Full thickness tissue loss with exposed bone, tendon, or muscle. Unstageable pressure ulcer: Full thickness tissue loss in which the base of the ulcer is covered by slough (yellow, chavez, mckinley, green or brown) and/or eschar (chavez, brown or black) in the wound bed. (Template Last Revised: May 2020) MTDD
--- NOTE | 2024-08-25 15:52 | CDI ---
Documentation Clarification Form Date: 08/25/2024 02:39:00 PM From: Amaris Vizcarra RN CDIS Phone: [phone] Admit Date: 08/21/2024 01:32:00 PM Patient Name: Bel Seth I Visit Number: [id number] Discharge Date: ATTENTION: The Clinical Documentation Specialists (CDI) and [facility] Coding Staff appreciate your assistance in clarifying documentation. Please respond to the clarification below the line at the bottom and electronically sign. The CDI & [facility] Coding staff will review the response and follow-up if needed. Please note: Queries are made part of the Legal Health Record. If you have any questions, please contact the author of this message via ITS. Doctor: Luis Tejeda stage II pressure ulcer left lower buttock is documented by Wound assessment by nursing 08/21. Based on this information and the findings below, is there an additional diagnosis that is clinically appropriate for this patient? Patient history/risk factors: 78 year old female presents to the ED with abnormal hemoglobin, shortness of breath, abdominal distention and lower extremity swelling. History of ESRD, Paracentesis, Dialysis and Bed ridden. Medicine notes. Clinical Indicators: Location: Left lower buttock Wound description: Length 4.5cm width 1cm granulation pink, drainage serous Treatment: Abdominal pad, Hydrophor Ointment TID PRN, Turn patient 2QH, Absorbant underpad, Check hourly for incontinence, Zinc past, Barrier protection Consults: Is there an additional diagnosis that is clinically appropriate for this patient? [x ] Left Buttock Pressure Ulcer Stage 2 [ ] Other condition, please specify [ ] Unable to determine Clinical Definitions: Stage 1 Pressure Ulcer: intact skin, non-blanching redness of local area Stage 2 Pressure Ulcer: Partial thickness, loss of dermis, pink wound bed Stage 3 Pressure Ulcer: Full thickness tissue loss Stage 4 Pressure Ulcer: Full thickness tissue loss with exposed bone, tendon, or muscle. Unstageable pressure ulcer: Full thickness tissue loss in which the base of the ulcer is covered by slough (yellow, chavez, mckinley, green or brown) and/or eschar (chavez, brown or black) in the wound bed. (Template Last Revised: May 2020) MTDD
[2024-08-25 16:13] LABS: Glucose,Whole Blood 174 mg/dL (70-110)
--- NOTE | 2024-08-25 19:35 | P.PN ---
Subjective Patient is seen for follow-up for end-stage renal disease. Scheduled for hemodialysis in a.m. No shortness of breath Status post paracentesis with 5.7 L removed Objective - Vital Signs Vital signs: Vital Signs Temp 98.1 F 08/25/24 13:46 Pulse 64 08/25/24 17:19 Resp 16 08/25/24 13:46 BP 129/71 08/25/24 17:19 Pulse Ox 95 08/25/24 13:46 FiO2 Intake & Output 08/25/24 08/25/24 08/26/24 06:59 18:59 06:59 Other: Voiding Method Diaper # Voids 1 1 # Bowel Movements 5 - Exam Patient is awake, comfortable, no acute distress Examination of the heart S1 and S2 Examination of the lungs bilateral breath sounds are heard Abdomen is soft obese nontender Examination lower extremities shows chronic edema chronic skin changes, legs are wrapped - Labs CBC & Chem 7: 08/25/24 11:42 08/25/24 02:33 Labs: Abnormal Lab Results - Last 24 Hours (Table) 08/24/24 08/24/24 08/24/24 Range/Units 20:03 20:03 20:58 RBC 3.19 L (4.10-5.20) 10*6/uL Hgb 8.0 L (12.0-15.0) g/dL Hct 26.1 L (37.2-46.3) % MCH 25.1 L (27.0-32.0) pg MCHC 30.7 L (32.0-37.0) g/dL RDW 18.6 H (11.5-14.5) % Sodium 132 L (137-145) mmol/L Chloride 95 L (98-107) mmol/L BUN 20 H (7-17) mg/dL Creatinine 1.81 H (0.52-1.04) mg/dL Est GFR (CKD-EPI) (>=60) BUN/Creatinine Ratio (12.00-20.00) Ratio Glucose 108 H (74-99) mg/dL POC Glucose (mg/dL) 130 H (70-110) mg/dL Calcium 8.1 L (8.4-10.2) mg/dL Total Protein (6.2-8.2) g/dL Albumin (3.8-4.9) g/dL Albumin/Globulin Ratio (1.60-3.17) Ratio 08/25/24 08/25/24 08/25/24 Range/Units 02:33 02:33 11:15 RBC 2.76 L (4.10-5.20) 10*6/uL Hgb 6.9 A* (12.0-15.0) g/dL Hct 22.6 L (37.2-46.3) % MCH 25.0 L (27.0-32.0) pg MCHC 30.5 L (32.0-37.0) g/dL RDW 18.6 H (11.5-14.5) % Sodium 134 L (137-145) mmol/L Chloride (98-107) mmol/L BUN (7-17) mg/dL Creatinine 2.4 H (0.52-1.04) mg/dL Est GFR (CKD-EPI) 20 L (>=60) BUN/Creatinine Ratio 8.58 L (12.00-20.00) Ratio Glucose (74-99) mg/dL POC Glucose (mg/dL) 169 H (70-110) mg/dL Calcium 7.7 L (8.4-10.2) mg/dL Total Protein 4.8 L (6.2-8.2) g/dL Albumin 2.6 L (3.8-4.9) g/dL Albumin/Globulin Ratio 1.18 L (1.60-3.17) Ratio 08/25/24 08/25/24 Range/Units 11:42 16:12 RBC 2.93 L (4.10-5.20) 10*6/uL Hgb 7.5 L (12.0-15.0) g/dL Hct 23.7 L (37.2-46.3) % MCH 25.6 L (27.0-32.0) pg MCHC 31.6 L (32.0-37.0) g/dL RDW 18.5 H (11.5-14.5) % Sodium (137-145) mmol/L Chloride (98-107) mmol/L BUN (7-17) mg/dL Creatinine (0.52-1.04) mg/dL Est GFR (CKD-EPI) (>=60) BUN/Creatinine Ratio (12.00-20.00) Ratio Glucose (74-99) mg/dL POC Glucose (mg/dL) 174 H (70-110) mg/dL Calcium (8.4-10.2) mg/dL Total Protein (6.2-8.2) g/dL Albumin (3.8-4.9) g/dL Albumin/Globulin Ratio (1.60-3.17) Ratio Assessment and Plan Assessment: 1. End-stage renal disease maintained on hemodialysis on Friday schedule via right chest permacath. 2. Anemia of chronic kidney disease with component of acute blood loss. On Aranesp. Surgery on consult. Scheduled for colonoscopy/EGD in a.m. 3. Liver cirrhosis. 4. Volume overload. 5. Hypervolemic hyponatremia. 6. Chronic diastolic CHF. Plan: Hemodialysis in a.m. DC sodium bicarb Continue with increased dose of Aranesp
[2024-08-25 21:05] LABS: Glucose,Whole Blood 161 mg/dL (70-110)
[2024-08-26 06:00] LABS: Glucose,Whole Blood 131 mg/dL (70-110)
--- NOTE | 2024-08-26 08:41 | P.PN ---
Subjective Progress Note Date: 08/26/24 This is an 78-year-old female who was admitted for anemia after recent dialysis session. Patient reports she had been noticing some increasing shortness of breath for the last couple of days. Hemoglobin on admission was 6.7. Yesterday hemoglobin was 6.3. Patient has received a total of 2 units of packed red blood cells. Labs are not back for today at time of dictation. Patient also has a history of ascites and has been routinely getting paracentesis. Interventional radiology has been consulted. Nephrology are also on consult, patient will have dialysis today. Patient seen this morning sitting up in bed resting comfortably. 08/24/2024 Hemoglobin has increased slightly. Plan is for colonoscopy and EGD today, along with paracentesis. 08/26/2024 Patient seen and evaluated resting comfortably lying in bed this morning. Colonoscopy was unable to be completed due to poor prep and is scheduled for today. Hemoglobin was 7.5 yesterday. Objective - Vital Signs Vital signs: Vital Signs Temp 98.0 F 08/26/24 07:20 Pulse 56 L 08/26/24 07:20 Resp 16 08/26/24 07:20 BP 100/57 08/26/24 07:20 Pulse Ox 98 08/26/24 07:20 FiO2 Intake & Output 08/25/24 08/26/24 08/26/24 18:59 06:59 18:59 Other: Voiding Method Diaper # Voids 1 # Bowel Movements 5 3 - Constitutional General appearance: Present: cooperative, no acute distress - EENT Eyes: Present: PERRLA - Neck Neck: Present: normal ROM. Absent: lymphadenopathy, rigidity - Respiratory Respiratory: bilateral: diminished - Cardiovascular Heart sounds: normal: S1, S2 - Gastrointestinal General gastrointestinal: Present: soft. Absent: tenderness - Integumentary Integumentary: Present: normal, normal turgor - Musculoskeletal Musculoskeletal: Present: generalized weakness - Psychiatric Psychiatric: Present: A&O x's 3 - Labs CBC & Chem 7: 08/25/24 11:42 08/25/24 02:33 Labs: Abnormal Lab Results - Last 24 Hours (Table) 08/25/24 08/25/24 08/25/24 Range/Units 02:33 11:15 11:42 RBC 2.76 L 2.93 L (4.10-5.20) X 10*6/uL Hgb 6.9 A* 7.5 L (12.0-15.0) g/dL Hct 22.6 L 23.7 L (37.2-46.3) % MCH 25.0 L 25.6 L (27.0-32.0) pg MCHC 30.5 L 31.6 L (32.0-37.0) g/dL RDW 18.6 H 18.5 H (11.5-14.5) % POC Glucose (mg/dL) 169 H (70-110) mg/dL 08/25/24 08/25/24 08/26/24 Range/Units 16:12 21:03 05:59 RBC (4.10-5.20) X 10*6/uL Hgb (12.0-15.0) g/dL Hct (37.2-46.3) % MCH (27.0-32.0) pg MCHC (32.0-37.0) g/dL RDW (11.5-14.5) % POC Glucose (mg/dL) 174 H 161 H 131 H (70-110) mg/dL Assessment and Plan (1) Anemia Current Visit: Yes Status: Acute Code(s): D64.9 - ANEMIA, UNSPECIFIED SNOMED Code(s): 513844941 (2) Ascites Current Visit: Yes Status: Acute Code(s): R18.8 - OTHER ASCITES SNOMED Code(s): 208950377 (3) ESRD (end stage renal disease) on dialysis Current Visit: Yes Status: Acute Code(s): N18.6 - END STAGE RENAL DISEASE; Z99.2 - DEPENDENCE ON RENAL DIALYSIS SNOMED Code(s): 455548079 (4) Atrial fibrillation Current Visit: No Status: Acute Code(s): I48.91 - UNSPECIFIED ATRIAL FIBRILLATION SNOMED Code(s): 35134897 (5) CAD (coronary artery disease) Current Visit: No Status: Acute Code(s): I25.10 - ATHSCL HEART DISEASE OF [place] CORONARY ARTERY W/O ANG PCTRS SNOMED Code(s): 71541702 (6) Chronic wound Current Visit: No Status: Acute Code(s): T14.8XXA - OTHER INJURY OF UNSPECIFIED BODY REGION, INITIAL ENCOUNTER SNOMED Code(s): 59860287071235 (7) Cirrhosis of liver with ascites Current Visit: No Status: Acute Code(s): K74.60 - UNSPECIFIED CIRRHOSIS OF LIVER; R18.8 - OTHER ASCITES SNOMED Code(s): 41627885 (8) Diabetes Current Visit: No Status: Acute Code(s): E11.9 - TYPE 2 DIABETES MELLITUS WITHOUT COMPLICATIONS SNOMED Code(s): 86196046 Plan: Await colonoscopy results today. Check CBC and CMP in the morning. Anticipate discharge in the next 24-48 hours. Patient seen and evaluated by nurse practitioner, physician in agreement with phuong collins
[2024-08-26 08:50] LABS: HCT 25.3 % (37.2-46.3); HGB 7.7 g/dL (12.0-15.0); MCH 24.7 pg (27.0-32.0); MCHC 30.4 g/dL (32.0-37.0); MCV 81.1 FL (80.0-97.0); NRBC Per 100 WBC 0 X 10*3/uL (0.00-0.01); Platelet Count 220 X 10*3/uL (140-440); RBC 3.12 X 10*6/uL (4.10-5.20); RDW 18.4 % (11.5-14.5); WBC 6.38 X 10*3/uL (4.50-10.00)
[2024-08-26 09:35] LABS: ALT 16 U/L (8-44); AST 34 U/L (13-35); Albumin 2.5 g/dL (3.8-4.9); Albumin/Globulin Ratio 1.09 Ratio (1.60-3.17); Alkaline Phosphatase 86 U/L (41-126); BUN/Creat Ratio 7.26 Ratio (12.00-20.00); Blood Urea Nitrogen 22.5 mg/dL (9.0-27.0); Calcium 7.7 mg/dL (8.7-10.3); Carbon Dioxide 26.5 mmol/L (21.6-31.8); Chloride 94 mmol/L (96-109); Globulin 2.3 g/dL (1.6-3.3); Glucose 134 mg/dL (70-110); Potassium 3.9 mmol/L (3.5-5.5); Sodium 130 mmol/L (135-145); Total Bilirubin 0.5 mg/dL (0.3-1.2); Total Protein 4.8 g/dL (6.2-8.2)
[2024-08-26] MEDS ORDERED: PROPOFOL 10 MG/ML 20 ML VIAL IV ONE (10:57)
[2024-08-26] MEDS: SODIUM CHLORIDE 0.9% 500 ML 500 ML IV ONE (11:00)
--- NOTE | 2024-08-26 11:16 | P.PN ---
Subjective HISTORY OF PRESENT ILLNESS: This is a 78-year-old female with a past medical history significant for normal coronary arteries, nonischemic cardiomyopathy, atrial tachycardia, paroxysmal atrial fibrillation, end-stage renal disease on hemodialysis. Patient follows in the office with Dr. Guillen. We have been asked to see the patient in [facility] for multiple PVCs. Patient examined at the bedside. Patient was directed to come to the emergency room after dialysis and was found to be anemic. Patient does have a history of anemia. Patient's Eliquis has been placed on hold. She is scheduled for endoscopy tomorrow. She denies any chest pain or pressure. Denies any shortness of breath. She does report feeling occasional palpitations. DIAGNOSTICS: - EKG reveals atrial fibrillation with controlled ventricular rate - Chest xray cardiomegaly and mild pulmonary vascular congestion - Laboratory data: WBC 6.06. Hemoglobin 6.9. Platelet count 177. Sodium 134. Potassium 4.1. BUN 20.6. Creatinine 2.4. Troponin negative x 1 - Current home cardiac medications include Eliquis 2.5 mg twice a day, aspirin 81 mg daily, Lipitor 20 mg daily, Lasix 80 mg daily, metoprolol succinate 25 mg twice a day, midodrine 10 mg 3 times a day, Entresto 24-26 mg twice a day. - Most recent echocardiogram obtained in June 2024 revealing ejection fraction 55 to 60%, trace to mild mitral regurgitation, mild tricuspid regurgitation, severe concentric LVH - Cardiac catheterization history: April 2019 revealing normal coronary arteries 08/26/2024 Patient examined this morning at bedside. Patient currently denies chest pain or pressure. She denies shortness of breath. Vital signs are stable. She is on room air with oxygen saturations greater than 92%. Blood pressure 100/57. She is scheduled for endoscopy today with general surgery. Eliquis remains on hold. Hemoglobin 7.7. Patient is also scheduled for hemodialysis today. PHYSICAL EXAM: VITAL SIGNS: Reviewed. GENERAL: Well-developed in no acute distress. HEENT: Head is normocephalic. Pupils are equal, round. Sclerae anicteric. Mucous membranes of the mouth are moist. Neck supple. No JVD or thyromegaly LUNGS: Respirations even and unlabored. Lungs essentially clear to auscultation bilaterally. HEART: Irregular rate and rhythm. S1 and S2 heard. ABDOMEN: Soft. Nondistended. Nontender. EXTREMITIES: Normal range of motion. No clubbing or cyanosis. Peripheral pulses intact. No lower extremity edema NEUROLOGIC: Awake and alert. Oriented x 3. ASSESSMENT: Acute on chronic anemia Intolerance to iron therapy Ascites, status post paracentesis with removal of 5.7 L, 08/24/2024 Paroxysmal atrial fibrillation Occasional PVCs Severe concentric LVH History of atrial tachycardia History of nonischemic cardiomyopathy with recovered EF Normal coronary arteries, per cath April 2019 History of end-stage renal disease on hemodialysis PLAN: No need to repeat echocardiogram as this was performed in June 2024 Eliquis remains on hold. Patient scheduled for endoscopy today. Recommend eventual Watchman device. Continue Lipitor, Lasix, metoprolol, midodrine, Entresto Continue telemetry monitoring. Patient currently with occasional PVCs. Further recommendations pending patient course. Nurse practitioner note has been reviewed by physician. Signing provider agrees with the documented findings, assessment, and plan of care documented by [employer] as a scribe. Objective - Vital Signs Vital signs: Vital Signs Temp 98.0 F 08/26/24 07:20 Pulse 56 L 08/26/24 07:20 Resp 16 08/26/24 07:20 BP 100/57 08/26/24 07:20 Pulse Ox 98 08/26/24 07:20 FiO2 Intake & Output 08/25/24 08/26/24 08/26/24 18:59 06:59 18:59 Other: Voiding Method Diaper Diaper Incontinent # Voids 1 # Bowel Movements 5 3 - Labs CBC & Chem 7: 08/26/24 02:41 08/26/24 02:41 Labs: Abnormal Lab Results - Last 24 Hours (Table) 08/25/24 08/25/24 08/25/24 Range/Units 11:15 11:42 16:12 RBC 2.93 L (4.10-5.20) 10*6/uL Hgb 7.5 L (12.0-15.0) g/dL Hct 23.7 L (37.2-46.3) % MCH 25.6 L (27.0-32.0) pg MCHC 31.6 L (32.0-37.0) g/dL RDW 18.5 H (11.5-14.5) % Sodium (135-145) mmol/L Chloride (96-109) mmol/L Creatinine (0.6-1.5) mg/dL Est GFR (CKD-EPI) (>=60) BUN/Creatinine Ratio (12.00-20.00) Ratio Glucose (70-110) mg/dL POC Glucose (mg/dL) 169 H 174 H (70-110) mg/dL Calcium (8.7-10.3) mg/dL Total Protein (6.2-8.2) g/dL Albumin (3.8-4.9) g/dL Albumin/Globulin Ratio (1.60-3.17) Ratio 08/25/24 08/26/24 08/26/24 Range/Units 21:03 02:41 02:41 RBC 3.12 L (4.10-5.20) 10*6/uL Hgb 7.7 L (12.0-15.0) g/dL Hct 25.3 L (37.2-46.3) % MCH 24.7 L (27.0-32.0) pg MCHC 30.4 L (32.0-37.0) g/dL RDW 18.4 H (11.5-14.5) % Sodium 130 L (135-145) mmol/L Chloride 94 L (96-109) mmol/L Creatinine 3.1 H (0.6-1.5) mg/dL Est GFR (CKD-EPI) 15 L (>=60) BUN/Creatinine Ratio 7.26 L (12.00-20.00) Ratio Glucose 134 H (70-110) mg/dL POC Glucose (mg/dL) 161 H (70-110) mg/dL Calcium 7.7 L (8.7-10.3) mg/dL Total Protein 4.8 L (6.2-8.2) g/dL Albumin 2.5 L (3.8-4.9) g/dL Albumin/Globulin Ratio 1.09 L (1.60-3.17) Ratio 08/26/24 Range/Units 05:59 RBC (4.10-5.20) 10*6/uL Hgb (12.0-15.0) g/dL Hct (37.2-46.3) % MCH (27.0-32.0) pg MCHC (32.0-37.0) g/dL RDW (11.5-14.5) % Sodium (135-145) mmol/L Chloride (96-109) mmol/L Creatinine (0.6-1.5) mg/dL Est GFR (CKD-EPI) (>=60) BUN/Creatinine Ratio (12.00-20.00) Ratio Glucose (70-110) mg/dL POC Glucose (mg/dL) 131 H (70-110) mg/dL Calcium (8.7-10.3) mg/dL Total Protein (6.2-8.2) g/dL Albumin (3.8-4.9) g/dL Albumin/Globulin Ratio (1.60-3.17) Ratio
[2024-08-26 11:42] LABS: Glucose,Whole Blood 136 mg/dL (70-110)
[2024-08-26] MEDS: CIPROFLOXACIN HCL 500 MG TAB PO SCH (12:27)
[2024-08-26] MEDS: SULFAMETHOX-TMP 800-160MG 1 EACH TAB PO SCH (12:27)
[2024-08-26] MEDS: diphenhydrAMINE 50 MG/ML 1 ML VIAL IVP STA (16:36)
[2024-08-26] MEDS: SODIUM FERRIC GLUCONAT-SUCROSE 125 MG in SODIUM CHLORIDE 0.9% 100 ML IVPB ONE (16:37)
[2024-08-26 16:47] LABS: Glucose,Whole Blood 177 mg/dL (70-110)
--- NOTE | 2024-08-26 18:27 | P.PN ---
Subjective Patient is seen for follow-up for end-stage renal disease. Scheduled for hemodialysis today. No shortness of breath Status post colonoscopy today. Patient states that she is not able to take iron in any form due to severe reaction. She states that she has significant vomiting and feels very sick. Discussed with her that given her significant iron deficiency and persistently low hemoglobin we should try IV iron 1 more time while in the hospital. Patient is agreeable. Objective - Vital Signs Vital signs: Vital Signs Temp 98.2 F 08/26/24 16:02 Pulse 59 L 08/26/24 16:02 Resp 16 08/26/24 16:02 BP 102/49 08/26/24 16:02 Pulse Ox 98 08/26/24 13:13 FiO2 Intake & Output 08/25/24 08/26/24 08/26/24 18:59 06:59 18:59 Intake Total 500 Output Total 2400 Balance -1900 Weight 81.647 kg Intake: IV 100 Hemodialysis 400 Output: Hemodialysis 1400 Hemodialysis Net Amount 1000 Other: Voiding Method Diaper Diaper Incontinent # Voids 1 1 # Bowel Movements 5 3 3 - Exam Patient is awake, comfortable, no acute distress Examination of the heart S1 and S2 Examination of the lungs bilateral breath sounds are heard Abdomen is soft obese nontender Examination lower extremities shows chronic edema chronic skin changes, legs are wrapped - Labs CBC & Chem 7: 08/26/24 02:41 08/26/24 02:41 Labs: Abnormal Lab Results - Last 24 Hours (Table) 08/25/24 08/26/24 08/26/24 Range/Units 21:03 02:41 02:41 RBC 3.12 L (4.10-5.20) X 10*6/uL Hgb 7.7 L (12.0-15.0) g/dL Hct 25.3 L (37.2-46.3) % MCH 24.7 L (27.0-32.0) pg MCHC 30.4 L (32.0-37.0) g/dL RDW 18.4 H (11.5-14.5) % Sodium 130 L (135-145) mmol/L Chloride 94 L (96-109) mmol/L Creatinine 3.1 H (0.6-1.5) mg/dL Est GFR (CKD-EPI) 15 L (>=60) BUN/Creatinine Ratio 7.26 L (12.00-20.00) Ratio Glucose 134 H (70-110) mg/dL POC Glucose (mg/dL) 161 H (70-110) mg/dL Calcium 7.7 L (8.7-10.3) mg/dL Total Protein 4.8 L (6.2-8.2) g/dL Albumin 2.5 L (3.8-4.9) g/dL Albumin/Globulin Ratio 1.09 L (1.60-3.17) Ratio 08/26/24 08/26/24 08/26/24 Range/Units 05:59 11:40 16:44 RBC (4.10-5.20) X 10*6/uL Hgb (12.0-15.0) g/dL Hct (37.2-46.3) % MCH (27.0-32.0) pg MCHC (32.0-37.0) g/dL RDW (11.5-14.5) % Sodium (135-145) mmol/L Chloride (96-109) mmol/L Creatinine (0.6-1.5) mg/dL Est GFR (CKD-EPI) (>=60) BUN/Creatinine Ratio (12.00-20.00) Ratio Glucose (70-110) mg/dL POC Glucose (mg/dL) 131 H 136 H 177 H (70-110) mg/dL Calcium (8.7-10.3) mg/dL Total Protein (6.2-8.2) g/dL Albumin (3.8-4.9) g/dL Albumin/Globulin Ratio (1.60-3.17) Ratio Assessment and Plan Assessment: 1. End-stage renal disease maintained on hemodialysis on Friday S schedule via right chest permacath. 2. Anemia of chronic kidney disease with component of acute blood loss. On Aranesp. Surgery on consult. Status post colonoscopy/EGD, no obvious bleeding, official report not available. Significant iron deficiency noted however patient states she is intolerant to any form of iron but she is agreeable to try it 1 more time while in the hospital. 3. Liver cirrhosis. 4. Volume overload. 5. Hypervolemic hyponatremia. 6. Chronic diastolic CHF. Plan: Hemodialysis today IV iron x 1. Benadryl x1 with IV iron infusion. Continue with increased dose of Aranesp
[2024-08-26 20:40] LABS: Glucose,Whole Blood 221 mg/dL (70-110)
[2024-08-27] MEDS: METOPROLOL SUCCINATE (ER) 50 MG TAB.ER.24H PO STA (01:51)
[2024-08-27 06:05] LABS: Glucose,Whole Blood 128 mg/dL (70-110)
[2024-08-27 06:59] VITALS: RESP 16
[2024-08-27 08:18] LABS: HCT 23.6 % (37.2-46.3); HGB 7.2 g/dL (12.0-15.0); MCH 24.2 pg (27.0-32.0); MCHC 30.5 g/dL (32.0-37.0); MCV 79.5 FL (80.0-97.0); Mean Platelet Volume 10.7 FL (9.5-12.2); NRBC Per 100 WBC 0 X 10*3/uL (0.00-0.01); Platelet Count 195 X 10*3/uL (140-440); RBC 2.97 X 10*6/uL (4.10-5.20); RDW 18.3 % (11.5-14.5); WBC 6.02 X 10*3/uL (4.50-10.00)
--- NOTE | 2024-08-27 08:24 | P.DS ---
Providers Date of admission: 08/21/24 13:32 Attending physician: Luis Shirley Consults: 08/21/24 13:31 Consult Physician Urgent Consulting Provider: Roc Coyne Consult Reason/Comments: esrd on hd Do you want consulting provider notified?: Yes 08/22/24 10:13 Consult Physician Routine Consulting Provider: Rivas Romero Consult Reason/Comments: anemia,HX of PUD Do you want consulting provider notified?: Yes 08/24/24 19:39 Consult Physician Urgent Consulting Provider: Wero Pete Consult Reason/Comments: Multiple PVCs Do you want consulting provider notified?: Yes 08/26/24 11:02 Consult Physician Routine Consulting Provider: Elda Woodward Consult Reason/Comments: enlarged right labia, draining pus. Possible cyst/abscess? Do you want consulting provider notified?: Yes Primary care physician: Luis Shirley - Discharge Diagnosis(es) (1) Anemia Current Visit: Yes Status: Acute (2) ESRD (end stage renal disease) on dialysis Current Visit: Yes Status: Acute (3) Atrial fibrillation Current Visit: No Status: Acute (4) Diabetes Current Visit: No Status: Acute Hospital Course: This is a discharge summary an 78-year-old white female with known history of ascites multifactorial anemia who ended up having paracentesis multiple transfusions secondary to multifactorial anemia and EGD with colonoscopy. She also developed labial cyst infection which was treated. Multiple consultants were given the patient was stabilized other than giving her appropriate antibiotic treatment and transfusion. She is not tolerating diet and is a dense ESRD with dialysis patient as well. She will discharge once cleared by her consultants and to follow-up with me in 3 to 7 days. She is afebrile tolerating diet. Patient Condition at Discharge: Stable Plan - Discharge Summary Discharge Rx Participant: Yes New Discharge Prescriptions: New Darbepoetin Fernando [Aranesp] 60 mcg SQ Q7D 28 Days each Ciprofloxacin HCl [Cipro] 500 mg PO DAILY #20 tab Mag Hydrox/Al Hydrox/Simeth [Maalox] 15 ml PO Q6HR PRN ml PRN Reason: Indigestion Sulfamethox-Tmp 800-160Mg [Bactrim DS 800-160 mg] 1 each PO DAILY #20 tab HYDROcodone/APAP 5-325MG [Robards 5-325] 1 each PO Q6H PRN #120 tab PRN Reason: Moderate Pain (Scale 4 To 6) Calcium Carbonate [Tums] 1,000 mg PO Q4HR PRN tab PRN Reason: Dyspepsia Continue Ipratropium [place] [Atrovent Hfa] 2 puff INHALATION RT-QID ALPRAZolam [Xanax] 0.25 mg PO TID PRN PRN Reason: Anxiety Aspirin 81 mg PO DAILY Atorvastatin [Lipitor] 20 mg PO DAILY Escitalopram [Lexapro] 10 mg PO DAILY Furosemide [Lasix] 80 mg PO DAILY Insulin Glargine,Hum.rec.anlog [Toujeo Max Solostar] 16 - 18 units SQ HS PRN PRN Reason: BLOOD SUGAR >200 Insulin Glargine,Hum.rec.anlog [Toujeo Max Solostar] 24 units SQ DAILY Albuterol Inhaler [Ventolin Hfa Inhaler] 2 puff INHALATION RT-QID PRN PRN Reason: Shortness Of Breath Sodium Bicarbonate Tab 650 mg PO BID #60 tab Periguard Ointment 1 applic TOPICAL DIRECTED Vits A and D/White Pet/Lanolin [A and D Ointment] 1 applic TOPICAL DAILY PRN PRN Reason: itching back traMADol HCL 50 mg PO TID PRN PRN Reason: Pain Ondansetron Odt [Zofran ODT] 4 mg PO Q8HR PRN #15 tab PRN Reason: Nausea And Vomiting Sacubitril/Valsartan [Entresto 24 mg-26 mg Tablet] 1 tab PO BID Omeprazole [PriLOSEC] 20 mg PO DAILY Ammonium Lactate Lotion [Lac-Hydrin 12% Lotion] 1 applic TOPICAL BID PRN PRN Reason: DRY ITCHY SKIN Cholecalciferol [Vitamin D3 (25 Mcg = 1000 Iu)] 25 mcg PO DAILY Multivit-Min/FA/Lycopen/Lutein [Centrum Silver Tablet] 1 tab PO DAILY Vit C/E/Zn/Coppr/Lutein/Zeaxan [Preservision Areds 2 Softgel] 1 cap PO BID Ascorbic Acid [Vitamin C] 1,000 mg PO DAILY Magnesium Oxide [Mag-Ox] 400 mg PO DAILY #30 tab Nystatin 100,000Unit/gm Cream [Mycostatin Cream] 1 applic TOPICAL BID #60 g Apixaban [Eliquis] 2.5 mg PO BID #60 tab Midodrine [ProAmatine] 10 mg PO AC-TID #90 tab Metoprolol Succinate (ER) [Toprol XL] 25 mg PO BID #60 tab Discharge Medication List Sacubitril/Valsartan [Entresto 24 mg-26 mg Tablet] 1 tab PO BID 01/12/22 [History] Omeprazole [PriLOSEC] 20 mg PO DAILY 03/05/22 [History] Ipratropium [place] [Atrovent Hfa] 2 puff INHALATION RT-QID 09/09/22 [History] ALPRAZolam [Xanax] 0.25 mg PO TID PRN 05/30/23 [History] Ammonium Lactate Lotion [Lac-Hydrin 12% Lotion] 1 applic TOPICAL BID PRN 05/30/23 [History] Aspirin 81 mg PO DAILY 05/30/23 [History] Atorvastatin [Lipitor] 20 mg PO DAILY 05/30/23 [History] Cholecalciferol [Vitamin D3 (25 Mcg = 1000 Iu)] 25 mcg PO DAILY 05/30/23 [History] Escitalopram [Lexapro] 10 mg PO DAILY 05/30/23 [History] Furosemide [Lasix] 80 mg PO DAILY 05/30/23 [History] Insulin Glargine,Hum.rec.anlog [Toujeo Max Solostar] 16 - 18 units SQ HS PRN 05/30/23 [History] Insulin Glargine,Hum.rec.anlog [Toujeo Max Solostar] 24 units SQ DAILY 05/30/23 [History] Multivit-Min/FA/Lycopen/Lutein [Centrum Silver Tablet] 1 tab PO DAILY 05/30/23 [History] Albuterol Inhaler [Ventolin Hfa Inhaler] 2 puff INHALATION RT-QID PRN 01/09/24 [History] Ascorbic Acid [Vitamin C] 1,000 mg PO DAILY 01/09/24 [History] Vit C/E/Zn/Coppr/Lutein/Zeaxan [Preservision Areds 2 Softgel] 1 cap PO BID 01/09/24 [History] Magnesium Oxide [Mag-Ox] 400 mg PO DAILY #30 tab 01/16/24 [Rx] Nystatin 100,000Unit/gm Cream [Mycostatin Cream] 1 applic TOPICAL BID #60 g 01/16/24 [Rx] Sodium Bicarbonate Tab 650 mg PO BID #60 tab 01/16/24 [Rx] Periguard Ointment 1 applic TOPICAL DIRECTED 03/03/24 [History] Vits A and D/White Pet/Lanolin [A and D Ointment] 1 applic TOPICAL DAILY PRN 03/03/24 [History] traMADol HCL 50 mg PO TID PRN 05/20/24 [History] Apixaban [Eliquis] 2.5 mg PO BID #60 tab 07/14/24 [Rx] Metoprolol Succinate (ER) [Toprol XL] 25 mg PO BID #60 tab 07/14/24 [Rx] Midodrine [ProAmatine] 10 mg PO AC-TID #90 tab 07/14/24 [Rx] Ondansetron Odt [Zofran ODT] 4 mg PO Q8HR PRN #15 tab 07/29/24 [Rx] Calcium Carbonate [Tums] 1,000 mg PO Q4HR PRN tab 08/27/24 [Rx] Ciprofloxacin HCl [Cipro] 500 mg PO DAILY #20 tab 08/27/24 [Rx] Darbepoetin Fernando [Aranesp] 60 mcg SQ Q7D 28 Days each 08/27/24 [Rx] HYDROcodone/APAP 5-325MG [Robards 5-325] 1 each PO Q6H PRN #120 tab 08/27/24 [Rx] Mag Hydrox/Al Hydrox/Simeth [Maalox] 15 ml PO Q6HR PRN ml 08/27/24 [Rx] Sulfamethox-Tmp 800-160Mg [Bactrim DS 800-160 mg] 1 each PO DAILY #20 tab 08/27/24 [Rx] Follow up Appointment(s)/Referral(s): Luis Shirley MD [Primary Care Provider] - 1 Week Activity/Diet/Wound Care/Special Instructions: *Call [facility] for ambulance transport home - [phone]. Form is on patient's chart. Discharge Disposition: HOME SELF-CARE
[2024-08-27] MEDS: APIXABAN 2.5 MG TABLET PO SCH (08:52)
[2024-08-27] MEDS: CIPROFLOXACIN HCL 500 MG TAB PO SCH (08:53)
--- NOTE | 2024-08-27 10:05 | P.PN ---
Subjective HISTORY OF PRESENT ILLNESS: This is a 78-year-old female with a past medical history significant for normal coronary arteries, nonischemic cardiomyopathy, atrial tachycardia, paroxysmal atrial fibrillation, end-stage renal disease on hemodialysis. Patient follows in the office with Dr. Guillen. We have been asked to see the patient in [facility] for multiple PVCs. Patient examined at the bedside. Patient was directed to come to the emergency room after dialysis and was found to be anemic. Patient does have a history of anemia. Patient's Eliquis has been placed on hold. She is scheduled for endoscopy tomorrow. She denies any chest pain or pressure. Denies any shortness of breath. She does report feeling occasional palpitations. DIAGNOSTICS: - EKG reveals atrial fibrillation with controlled ventricular rate - Chest xray cardiomegaly and mild pulmonary vascular congestion - Laboratory data: WBC 6.06. Hemoglobin 6.9. Platelet count 177. Sodium 134. Potassium 4.1. BUN 20.6. Creatinine 2.4. Troponin negative x 1 - Current home cardiac medications include Eliquis 2.5 mg twice a day, aspirin 81 mg daily, Lipitor 20 mg daily, Lasix 80 mg daily, metoprolol succinate 25 mg twice a day, midodrine 10 mg 3 times a day, Entresto 24-26 mg twice a day. - Most recent echocardiogram obtained in June 2024 revealing ejection fraction 55 to 60%, trace to mild mitral regurgitation, mild tricuspid regurgitation, severe concentric LVH - Cardiac catheterization history: April 2019 revealing normal coronary arteries 08/26/2024 Patient examined this morning at bedside. Patient currently denies chest pain or pressure. She denies shortness of breath. Vital signs are stable. She is on room air with oxygen saturations greater than 92%. Blood pressure 100/57. She is scheduled for endoscopy today with general surgery. Eliquis remains on hold. Hemoglobin 7.7. Patient is also scheduled for hemodialysis today. 08/27/2024 Patient examined this morning at the bedside. Patient currently denies chest pain or pressure. She denies shortness of breath. Patient did have 2 episodes of atrial fibrillation overnight. She is maintaining sinus mechanism this morning. Patient did receive IV iron yesterday. However she had to be premedicated due to previous history of adverse reactions. Vital signs are stable. She has been resumed on Eliquis. She underwent endoscopy yesterday. Final report from general surgery is pending. However nursing states endoscopy revealed gastritis and biopsies were taken. PHYSICAL EXAM: VITAL SIGNS: Reviewed. GENERAL: Well-developed in no acute distress. HEENT: Head is normocephalic. Pupils are equal, round. Sclerae anicteric. Mucous membranes of the mouth are moist. Neck supple. No JVD or thyromegaly LUNGS: Respirations even and unlabored. Lungs essentially clear to auscultation bilaterally. HEART: Irregular rate and rhythm. S1 and S2 heard. ABDOMEN: Soft. Nondistended. Nontender. EXTREMITIES: Normal range of motion. No clubbing or cyanosis. Peripheral pulses intact. No lower extremity edema NEUROLOGIC: Awake and alert. Oriented x 3. ASSESSMENT: Acute on chronic anemia Intolerance to iron therapy Ascites, status post paracentesis with removal of 5.7 L, 08/24/2024 Paroxysmal atrial fibrillation Occasional PVCs Severe concentric LVH History of atrial tachycardia History of nonischemic cardiomyopathy with recovered EF Normal coronary arteries, per cath April 2019 History of end-stage renal disease on hemodialysis PLAN: No need to repeat echocardiogram as this was performed in June 2024 Eliquis has been resumed. Continue to monitor hemoglobin. Discussed possibility of Watchman device eventually with patient who states she is unable to have Watchman device due to aluminum and nickel allergy Continue Lipitor, Lasix, metoprolol, midodrine, Entresto Continue telemetry monitoring Patient is stable for discharge home today from a cardiac standpoint Nurse practitioner note has been reviewed by physician. Signing provider agrees with the documented findings, assessment, and plan of care documented by DE ICER as a scribe. Objective - Vital Signs Vital signs: Vital Signs Temp 99.0 F 08/27/24 06:40 Pulse 59 L 08/27/24 06:40 Resp 16 08/27/24 06:40 BP 105/48 08/27/24 06:40 Pulse Ox 94 L 08/27/24 06:40 FiO2 Intake & Output 08/26/24 08/27/24 08/27/24 18:59 06:59 18:59 Intake Total 500 Output Total 2400 Balance -1900 Weight 81.647 kg Intake: IV 100 Hemodialysis 400 Output: Hemodialysis 1400 Hemodialysis Net Amount 1000 Other: Voiding Method Diaper Diaper Incontinent # Voids 1 1 # Bowel Movements 3 1 - Labs CBC & Chem 7: 08/27/24 06:15 08/26/24 02:41 Labs: Abnormal Lab Results - Last 24 Hours (Table) 08/26/24 08/26/24 08/26/24 Range/Units 11:40 16:44 20:38 RBC (4.10-5.20) X 10*6/uL Hgb (12.0-15.0) g/dL Hct (37.2-46.3) % MCV (80.0-97.0) FL MCH (27.0-32.0) pg MCHC (32.0-37.0) g/dL RDW (11.5-14.5) % POC Glucose (mg/dL) 136 H 177 H 221 H (70-110) mg/dL 08/27/24 08/27/24 Range/Units 06:04 06:15 RBC 2.97 L (4.10-5.20) X 10*6/uL Hgb 7.2 L (12.0-15.0) g/dL Hct 23.6 L (37.2-46.3) % MCV 79.5 L (80.0-97.0) FL MCH 24.2 L (27.0-32.0) pg MCHC 30.5 L (32.0-37.0) g/dL RDW 18.3 H (11.5-14.5) % POC Glucose (mg/dL) 128 H (70-110) mg/dL
[2024-08-27 10:26] LABS: ALT 15 U/L (8-44); AST 31 U/L (13-35); Albumin 2.5 g/dL (3.8-4.9); Albumin/Globulin Ratio 1.14 Ratio (1.60-3.17); Alkaline Phosphatase 88 U/L (41-126); BUN/Creat Ratio 5.88 Ratio (12.00-20.00); Blood Urea Nitrogen 15.3 mg/dL (9.0-27.0); Calcium 7.6 mg/dL (8.7-10.3); Carbon Dioxide 26.7 mmol/L (21.6-31.8); Chloride 95 mmol/L (96-109); Globulin 2.2 g/dL (1.6-3.3); Glucose 119 mg/dL (70-110); Potassium 3.5 mmol/L (3.5-5.5); Sodium 133 mmol/L (135-145); Total Bilirubin 0.5 mg/dL (0.3-1.2); Total Protein 4.7 g/dL (6.2-8.2)
[2024-08-27 11:16] LABS: Glucose,Whole Blood 180 mg/dL (70-110)
[2024-08-27] MEDS: METOPROLOL SUCCINATE (ER) 50 MG TAB.ER.24H PO SCH (12:03)
--- NOTE | 2024-08-27 13:18 | P.PN ---
Subjective Progress Note Date: 08/27/24 SURGICAL PROGRESS NOTE CHIEF COMPLAINT: Low hemoglobin HISTORY OF PRESENT ILLNESS: Patient is status post EGD and colonoscopy with results showing gastritis, hemorrhoids and diverticulosis. She does report occasional nausea. But otherwise tolerating diet. Denies any abdominal pain. She is scheduled for discharge today. Vital stable. Hemoglobin 7.2 PHYSICAL EXAM: VITAL SIGNS: Reviewed. GENERAL: Well-developed in no acute distress. HEENT: No sclera icterus. Extraocular movements grossly intact. Moist buccal mucosa. Head is atraumatic, normocephalic. ABDOMEN: Soft. Nondistended. NEUROLOGIC: Alert and oriented. Cranial nerves II through XII grossly intact. ASSESSMENT: 1. Anemia requiring blood transfusion. No active bleeding. Status post EGD and colonoscopy revealing gastritis, hemorrhoids and diverticulosis 2. History of end-stage renal disease on hemodialysis. PLAN: - Continue PPI - Okay for discharge from surgical standpoint Physician Trainmaster note has been reviewed by physician. Signing provider agrees with the documented findings, assessment, and plan of care. Objective - Vital Signs Vital signs: Vital Signs Temp 99.0 F 08/27/24 06:40 Pulse 59 L 08/27/24 06:40 Resp 16 08/27/24 08:53 BP 105/48 08/27/24 06:40 Pulse Ox 94 L 08/27/24 06:40 FiO2 Intake & Output 08/26/24 08/27/24 08/27/24 18:59 06:59 18:59 Intake Total 500 Output Total 2400 Balance -1900 Weight 81.647 kg Intake: IV 100 Hemodialysis 400 Output: Hemodialysis 1400 Hemodialysis Net Amount 1000 Other: Voiding Method Diaper Diaper Diaper Incontinent # Voids 1 1 # Bowel Movements 3 1 - Labs CBC & Chem 7: 08/27/24 06:15 08/27/24 06:15 Labs: Abnormal Lab Results - Last 24 Hours (Table) 08/26/24 08/26/24 08/27/24 Range/Units 16:44 20:38 06:04 RBC (4.10-5.20) X 10*6/uL Hgb (12.0-15.0) g/dL Hct (37.2-46.3) % MCV (80.0-97.0) FL MCH (27.0-32.0) pg MCHC (32.0-37.0) g/dL RDW (11.5-14.5) % Sodium (135-145) mmol/L Chloride (96-109) mmol/L Creatinine (0.6-1.5) mg/dL Est GFR (CKD-EPI) (>=60) BUN/Creatinine Ratio (12.00-20.00) Ratio Glucose (70-110) mg/dL POC Glucose (mg/dL) 177 H 221 H 128 H (70-110) mg/dL Calcium (8.7-10.3) mg/dL Total Protein (6.2-8.2) g/dL Albumin (3.8-4.9) g/dL Albumin/Globulin Ratio (1.60-3.17) Ratio 08/27/24 08/27/24 08/27/24 Range/Units 06:15 06:15 11:15 RBC 2.97 L (4.10-5.20) X 10*6/uL Hgb 7.2 L (12.0-15.0) g/dL Hct 23.6 L (37.2-46.3) % MCV 79.5 L (80.0-97.0) FL MCH 24.2 L (27.0-32.0) pg MCHC 30.5 L (32.0-37.0) g/dL RDW 18.3 H (11.5-14.5) % Sodium 133 L (135-145) mmol/L Chloride 95 L (96-109) mmol/L Creatinine 2.6 H (0.6-1.5) mg/dL Est GFR (CKD-EPI) 18 L (>=60) BUN/Creatinine Ratio 5.88 L (12.00-20.00) Ratio Glucose 119 H (70-110) mg/dL POC Glucose (mg/dL) 180 H (70-110) mg/dL Calcium 7.6 L (8.7-10.3) mg/dL Total Protein 4.7 L (6.2-8.2) g/dL Albumin 2.5 L (3.8-4.9) g/dL Albumin/Globulin Ratio 1.14 L (1.60-3.17) Ratio
[2024-08-27 13:36] VITALS: BP 124/70; PULSE 67; TEMP 98.4
--- NOTE | 2024-08-27 15:20 | CDI ---
Documentation Clarification Form Date: 08/27/2024 02:50:27 PM From: Amaris Vizcarra RN CCDS Phone: [phone] Admit Date: 08/21/2024 01:32:00 PM Patient Name: Bel Seth I Visit Number: [id number] Discharge Date: ATTENTION: The Clinical Documentation Specialists (CDI) and [facility] Coding Staff appreciate your assistance in clarifying documentation. Please respond to the clarification below the line at the bottom and electronically sign. The CDI & [facility] Coding staff will review the response and follow-up if needed. Please note: Queries are made part of the Legal Health Record. If you have any questions, please contact the author of this message via ITS. Doctor: Luis Shirley A right buttock pressure ulcer is documented by medicine on the wound query 08/25. Based on this information and the findings below, is there an additional diagnosis that is clinically appropriate for this patient? Patient history/risk factors: 78 year old female presents to the ED with abnormal hemoglobin, shortness of breath, abdominal distention and lower extremity swelling. History of ESRD, Paracentesis, Dialysis and Bed ridden. Medicine notes. Clinical Indicators: Wound assessment, Nursing: Right lower buttock lengh 4cm, width 05cm granulation quality pink, Drainage serous. Wound comment three areas open other two 1 x 1cm and 1.5 x 0.5 cm Treatment: Abdominal pad, Hydrophor Ointment TID PRN, Turn patient 2QH, Absorbant underpad, Check hourly for incontinence, Zinc past, Barrier protection. Is there an additional diagnosis that is clinically appropriate for this patient? [ x ] Right buttock Pressure Ulcer Stage 2 [ ] [insert location of ulcer] Pressure Ulcer unstageable [ ] [insert location of ulcer] Deep tissue injury [ ] Other condition, please specify [ ] Unable to determine Clinical Definitions: Stage 1 Pressure Ulcer: intact skin, non-blanching redness of local area Stage 2 Pressure Ulcer: Partial thickness, loss of dermis, pink wound bed Stage 3 Pressure Ulcer: Full thickness tissue loss Stage 4 Pressure Ulcer: Full thickness tissue loss with exposed bone, tendon, or muscle. Unstageable pressure ulcer: Full thickness tissue loss in which the base of the ulcer is covered by slough (yellow, chavez, mckinley, green or brown) and/or eschar (chavez, brown or black) in the wound bed. (Template Last Revised: May 2020) MTDD
--- NOTE | 2024-08-27 15:22 | P.OBCN ---
History of Present Illness Consult date: 08/27/24 Reason for consult: other (labial abscess ) History of present illness: Patient is an 78-year-old female with multiple comorbidities including insulin- dependent diabetes mellitus and end-stage renal disease on hemodialysis TThSa admitted from dialysis for anemia workup. We are consulted for enlarged right labia that is draining pus. Patient is a poor historian. Patient states that she has had recurrent abscesses/fistulas intermittently for the last 5 years. She reports that previously it was draining blood and a coffee-ground material. She denies pain, fever/chills, abdominal pain, dyspnea, chest pain. No known trauma. Review of Systems Constitutional: Denies chills, Denies fever Cardiovascular: Denies chest pain Respiratory: Denies dyspnea Gastrointestinal: Denies abdominal pain Genitourinary: Denies abnormal vaginal bleeding, Denies dysuria, Denies hematuria, Denies pelvic pain, Denies urgency, Denies urinary frequency Past Medical History Past Medical History: Atrial Fibrillation, Coronary Artery Disease (CAD), CVA/TIA, Diabetes Mellitus, Dialysis, Deep Vein Thrombosis (DVT), Hypertension, Myocardial Infarction (HI), Osteoarthritis (OA) Additional Past Medical History / Comment(s): hx tia, hx stroke behind left eye., lt eye macular , states hospitalized with Covid April 2019 with life support and stage 3 kidney failure., hx of fall with hip fx and surgery 01/13/22 went to [facility] for Rehab. DVT during ., varicose veins, states painful sore left heel., hx of t.b. as a child with scarring on lungs. 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 clausterphobia. 1961 blood transfusion(during child ) pt st ated had palpitations after 2nd unit given Smoking Status: Never smoker - Past Family History Mother Family Medical History: Cancer Additional Family Medical History / Comment(s): lung cancer Father Family Medical History: Coronary Artery Disease (CAD) Additional Family Medical History / Comment(s): heart disease, kidney disese Medications and Allergies Home Medications Medication Instructions Recorded Confirmed Type Sacubitril/Valsartan [Entresto 24 1 tab PO BID 01/12/22 08/21/24 History mg-26 mg Tablet] Omeprazole [PriLOSEC] 20 mg PO DAILY 03/05/22 08/21/24 History Ipratropium [place] [Atrovent Hfa] 2 puff INHALATION RT-QID 09/09/22 08/21/24 History ALPRAZolam [Xanax] 0.25 mg PO TID PRN 05/30/23 08/21/24 History Ammonium Lactate Lotion 1 applic TOPICAL BID PRN 05/30/23 08/21/24 History [Lac-Hydrin 12% Lotion] Aspirin 81 mg PO DAILY 05/30/23 08/21/24 History Atorvastatin [Lipitor] 20 mg PO DAILY 05/30/23 08/21/24 History Cholecalciferol [Vitamin D3 (25 25 mcg PO DAILY 05/30/23 08/21/24 History Mcg = 1000 Iu)] Escitalopram [Lexapro] 10 mg PO DAILY 05/30/23 08/21/24 History Furosemide [Lasix] 80 mg PO DAILY 05/30/23 08/21/24 History Insulin Glargine,Hum.rec.anlog 16 - 18 units SQ HS PRN 05/30/23 08/21/24 History [Toujeo Max Solostar] Insulin Glargine,Hum.rec.anlog 24 units SQ DAILY 05/30/23 08/21/24 History [Toujeo Max Solostar] Multivit-Min/FA/Lycopen/Lutein 1 tab PO DAILY 05/30/23 08/21/24 History [Centrum Silver Tablet] Albuterol Inhaler [Ventolin Hfa 2 puff INHALATION RT-QID PRN 01/09/24 08/21/24 History Inhaler] Ascorbic Acid [Vitamin C] 1,000 mg PO DAILY 01/09/24 08/21/24 History Vit C/E/Zn/Coppr/Lutein/Zeaxan 1 cap PO BID 01/09/24 08/21/24 History [Preservision Areds 2 Softgel] Magnesium Oxide [Mag-Ox] 400 mg PO DAILY #30 tab 01/16/24 08/21/24 Rx Nystatin 100,000Unit/gm Cream 1 applic TOPICAL BID #60 g 01/16/24 08/21/24 Rx [Mycostatin Cream] Sodium Bicarbonate Tab 650 mg PO BID #60 tab 01/16/24 08/21/24 Rx Periguard Ointment 1 applic TOPICAL DIRECTED 03/03/24 08/21/24 History Vits A and D/White Pet/Lanolin [A 1 applic TOPICAL DAILY PRN 03/03/24 08/21/24 History and D Ointment] traMADol HCL 50 mg PO TID PRN 05/20/24 08/21/24 History Apixaban [Eliquis] 2.5 mg PO BID #60 tab 07/14/24 08/21/24 Rx Metoprolol Succinate (ER) [Toprol 25 mg PO BID #60 tab 07/14/24 08/21/24 Rx XL] Midodrine [ProAmatine] 10 mg PO AC-TID #90 tab 07/14/24 08/21/24 Rx Ondansetron Odt [Zofran ODT] 4 mg PO Q8HR PRN #15 tab 07/29/24 08/21/24 Rx Calcium Carbonate [Tums] 1,000 mg PO Q4HR PRN tab 08/27/24 Rx Ciprofloxacin HCl [Cipro] 500 mg PO DAILY #20 tab 08/27/24 Rx Darbepoetin Fernando [Aranesp] 60 mcg SQ Q7D 28 Days each 08/27/24 Rx HYDROcodone/APAP 5-325MG [[place]ston 1 each PO Q6H PRN #120 tab 08/27/24 Rx 5-325] Mag Hydrox/Al Hydrox/Simeth 15 ml PO Q6HR PRN ml 08/27/24 Rx [Maalox] Sulfamethox-Tmp 800-160Mg [Bactrim 1 each PO DAILY #20 tab 08/27/24 Rx DS 800-160 mg] Allergies Allergy/AdvReac Type Severity Reaction Status Date / Time shellfish derived [Shellfish] Allergy Severe vomiting Verified 08/21/24 15:19 -very ill adhesive Allergy skin red Verified 08/21/24 15:19 and murguia, tears skin aluminum Allergy skin turns Verified 08/21/24 15:19 black, passes out Antihistamines - Allergy heart Verified 08/21/24 15:19 Ethylenediamine palpitations codeine Allergy migraines Verified 08/21/24 15:19 epinephrine Allergy heart Verified 08/21/24 15:19 palpitations fluticasone [From Flonase] Allergy Unknown Verified 08/21/24 15:19 hydrogen peroxide Allergy murguia and Verified 08/21/24 15:19 causes infection latex Allergy passes out Verified 08/21/24 15:19 nickel Allergy turns skin Verified 08/21/24 15:19 black and passes out procaine HCl [From Novocain] Allergy passed Verified 08/21/24 15:19 out- due to epinephrine in it. thiopental sodium Allergy needed cpr Verified 08/21/24 15:19 [From Pentothal] resusitation insulin glargine AdvReac Intermediate Diarrhea, Verified 08/21/24 15:19 [From Lantus U-100 Insulin] Vomiting, upset stomach iron AdvReac Nausea Verified 08/21/24 15:19 methocarbamol [From Robaxin] AdvReac Hallucinati Verified 08/21/24 15:19 ons zinc oxide AdvReac Rash/Hives Verified 08/21/24 15:19 surgical felicita Allergy Severe had to be Uncoded 08/21/24 15:19 removed 2 days post-op petroleum products AdvReac passes out Uncoded 08/21/24 15:19 or does not feel well. (diesel, oils) Exam Vital Signs Temp Pulse Pulse Resp BP Pulse Ox 08/27/24 13:35 98.4 F 67 16 124/70 95 08/27/24 08:53 16 08/27/24 06:40 99.0 F 59 L 16 105/48 94 L 08/27/24 05:11 65 08/27/24 00:57 98.8 F 117 H 18 105/59 94 L 08/26/24 21:23 71 112/53 08/26/24 18:59 98.6 F 69 18 93/52 93 L 08/26/24 16:02 98.2 F 59 L 16 102/49 Intake and Output 08/26/24 08/27/24 08/27/24 22:59 06:59 14:59 Intake Total 400 Output Total 2400 Balance -1999 Intake: Hemodialysis 400 Output: Hemodialysis 1400 Hemodialysis Net Amount 1000 Other: Voiding Method Diaper Diaper # Voids 1 1 # Bowel Movements 3 1 Vital signs are stable. General: No acute distress. HEENT: Head exam is unremarkable. EOMI bilaterally. ACs patent. Nares patent. Respiratory: Breathing comfortably on room air. Symmetric chest expansion. CV: Rate regular. Abdomen: Soft, nontender, nondistended. : Right labia majora with approximately 6 cm firm, mild fluctuance, purulent drainage. Nontender. No surrounding erythema or cellulitis. Psych: Normal affect and mood. Cooperative. Results Result Diagrams: 08/27/24 06:15 08/27/24 06:15 Abnormal Lab Results - Last 24 Hours (Table) 08/26/24 08/26/24 08/27/24 Range/Units 16:44 20:38 06:04 RBC (4.10-5.20) X 10*6/uL Hgb (12.0-15.0) g/dL Hct (37.2-46.3) % MCV (80.0-97.0) FL MCH (27.0-32.0) pg MCHC (32.0-37.0) g/dL RDW (11.5-14.5) % Sodium (135-145) mmol/L Chloride (96-109) mmol/L Creatinine (0.6-1.5) mg/dL Est GFR (CKD-EPI) (>=60) BUN/Creatinine Ratio (12.00-20.00) Ratio Glucose (70-110) mg/dL POC Glucose (mg/dL) 177 H 221 H 128 H (70-110) mg/dL Calcium (8.7-10.3) mg/dL Total Protein (6.2-8.2) g/dL Albumin (3.8-4.9) g/dL Albumin/Globulin Ratio (1.60-3.17) Ratio 08/27/24 08/27/24 08/27/24 Range/Units 06:15 06:15 11:15 RBC 2.97 L (4.10-5.20) X 10*6/uL Hgb 7.2 L (12.0-15.0) g/dL Hct 23.6 L (37.2-46.3) % MCV 79.5 L (80.0-97.0) FL MCH 24.2 L (27.0-32.0) pg MCHC 30.5 L (32.0-37.0) g/dL RDW 18.3 H (11.5-14.5) % Sodium 133 L (135-145) mmol/L Chloride 95 L (96-109) mmol/L Creatinine 2.6 H (0.6-1.5) mg/dL Est GFR (CKD-EPI) 18 L (>=60) BUN/Creatinine Ratio 5.88 L (12.00-20.00) Ratio Glucose 119 H (70-110) mg/dL POC Glucose (mg/dL) 180 H (70-110) mg/dL Calcium 7.6 L (8.7-10.3) mg/dL Total Protein 4.7 L (6.2-8.2) g/dL Albumin 2.5 L (3.8-4.9) g/dL Albumin/Globulin Ratio 1.14 L (1.60-3.17) Ratio Assessment and Plan (1) Labial abscess Current Visit: Yes Status: Acute Code(s): N76.4 - ABSCESS OF VULVA SNOMED Code(s): 038684277 Plan: Warm compresses 4 times daily Bactrim DS daily for 14 days Follow-up outpatient in 1 week
[2024-08-27] MEDS ORDERED: CLINDAMYCIN 150 MG CAP PO SCH (16:00)
[2024-08-27 16:14] LABS: Glucose,Whole Blood 195 mg/dL (70-110)
--- NOTE | 2024-10-05 09:31 | P.OP ---
Date of Procedure: 08/26/24 Preoperative Diagnosis: Anemia, GI bleed Postoperative Diagnosis: Gastritis Diverticulosis Hemorrhoids Procedure(s) Performed: EGD Colonoscopy Anesthesia: MAC Surgeon: Rivas Romero Pathology: other (Antrum) Condition: stable Disposition: PACU Description of Procedure: The patient was placed on the endoscopy table in the lateral position. She received IV sedation. The gas was placed oropharynx passed to the esophagus into the stomach. Scope was placed through the pylorus. The 1st and 2nd port ion of the duodenum appeared normal. Scope was Ruback the antrum this was mildly Flaim. A biopsy was performed. The scope was then retroflexed and the Mainer of the stomach appeared normal. The GE junction was at 40 cm. The distal esophagus appeared normal. The proximal esophagus appeared normal. Scope withdrawn from the patient. There is no evidence of any active upper GI bleed. Next digital rectal exam was performed. This revealed hemorrhoids. The flexible colonoscope was then placed patient Anaspaz throughout the entire colon. The ileocecal valve was visualized. The cecum, ascending and transverse colon appeared normal. In the descending sigmoid colon there was moderate diverticulosis. The scope was then the back the rectum this appeared normal. Scope withdrawn through the anus and hemorrhoids were noted. There is no evidence of any active lower GI bleed. Presumed patient may have blood from hemorrhoids or diverticular disease.
== END 2024-08-27 19:50 | disposition home or self-care (01) | DRG 811 ==
LOC: EC 09:32 → 5NMEDONC 13:31 → OBSVTOIN 13:32 → 4SSUR 13:49
PROVIDERS: ADMIT Family Medicine; ATTEND Family Medicine
PROC: 30233N1 Transfusion of Nonautologous Red Blood Cells into Peripheral Vein, Percutaneous Approach (ICD-10-PCS; principal; 2024-08-21)
PROC: 5A1D70Z Performance of Urinary Filtration, Intermittent, Less than 6 Hours Per Day (ICD-10-PCS; 2024-08-23)
PROC: 0W9G3ZX Drainage of Peritoneal Cavity, Percutaneous Approach, Diagnostic (ICD-10-PCS; 2024-08-24)
DX: D62 Acute posthemorrhagic anemia (principal); N18.6 End stage renal disease; I13.2 Hypertensive heart and chronic kidney disease with heart failure and with stage 5 chronic kidney disease, or end stage renal disease; L89.322 Pressure ulcer of left buttock, stage 2; L89.132 Pressure ulcer of right lower back, stage 2; R18.8 Other ascites; I50.32 Chronic diastolic (congestive) heart failure; I42.8 Other cardiomyopathies; E87.1 Hypo-osmolality and hyponatremia; Z99.2 Dependence on renal dialysis; K74.60 Unspecified cirrhosis of liver; E11.22 Type 2 diabetes mellitus with diabetic chronic kidney disease; D50.9 Iron deficiency anemia, unspecified; N76.4 Abscess of vulva; I47.19 Other supraventricular tachycardia; I48.0 Paroxysmal atrial fibrillation; Z79.4 Long term (current) use of insulin; D63.1 Anemia in chronic kidney disease; H35.30 Unspecified macular degeneration; E78.5 Hyperlipidemia, unspecified; F41.9 Anxiety disorder, unspecified; I83.90 Asymptomatic varicose veins of unspecified lower extremity; M19.90 Unspecified osteoarthritis, unspecified site; I25.10 Atherosclerotic heart disease of native coronary artery without angina pectoris; I25.2 Old myocardial infarction; I49.3 Ventricular premature depolarization; Z74.01 Bed confinement status; Z79.01 Long term (current) use of anticoagulants; Z79.82 Long term (current) use of aspirin; Z79.899 Other long term (current) drug therapy; Z86.16 Personal history of COVID-19; Z86.73 Personal history of transient ischemic attack (TIA), and cerebral infarction without residual deficits; Z87.11 Personal history of peptic ulcer disease; Z88.5 Allergy status to narcotic agent; Z88.8 Allergy status to other drugs, medicaments and biological substances; Z88.4 Allergy status to anesthetic agent; Z88.1 Allergy status to other antibiotic agents; Z91.040 Latex allergy status
CPT/HCPCS: 36415; 36430; 43239; 45378; 49083; 71046; 76705; 80048; 80053; 82728; 82747; 83540; 83550; 83605; 83735; 83880; 84100; 84484; 85025; 85027; 85610; 85730; 86706; 86850; 86900; 86901; 86920; 87070; 87075; 87077; 87186; 87205; 87340; 88305; 90935; 93005; 94640; 99285

== ENCOUNTER 2024-09-04 09:56 | Emergency (ER) | payer MEDICARE, OTHER ==
--- NOTE | 2024-09-04 10:41 | ED ---
General Adult HPI - General Chief complaint: Recheck/Abnormal Lab/Rx Stated complaint: abnormal labs Time Seen by Provider: 09/04/24 10:02 Source: patient, EMS, RN notes reviewed Mode of arrival: EMS Limitations: no limitations - History of Present Illness Initial comments: Patient is an 78-year-old female present to the emergency department with concer ns for anemia. Patient had her blood drawn last time for dialysis and was called this morning with hemoglobin of 7.2. Patient was advised to come to the emergency department. Patient was in the hospital recently with anemia. Patient states she did have scopes done without abnormality. Patient states she feels fine and has no complaints. - Related Data Home Medications Medication Instructions Recorded Confirmed Sacubitril/Valsartan [Entresto 24 1 tab PO BID 01/12/22 08/21/24 mg-26 mg Tablet] Omeprazole [PriLOSEC] 20 mg PO DAILY 03/05/22 08/21/24 Ipratropium [place] [Atrovent Hfa] 2 puff INHALATION RT-QID 09/09/22 08/21/24 ALPRAZolam [Xanax] 0.25 mg PO TID PRN 05/30/23 08/21/24 Ammonium Lactate Lotion 1 applic TOPICAL BID PRN 05/30/23 08/21/24 [Lac-Hydrin 12% Lotion] Aspirin 81 mg PO DAILY 05/30/23 08/21/24 Atorvastatin [Lipitor] 20 mg PO DAILY 05/30/23 08/21/24 Cholecalciferol [Vitamin D3 (25 25 mcg PO DAILY 05/30/23 08/21/24 Mcg = 1000 Iu)] Escitalopram [Lexapro] 10 mg PO DAILY 05/30/23 08/21/24 Furosemide [Lasix] 80 mg PO DAILY 05/30/23 08/21/24 Insulin Glargine,Hum.rec.anlog 16 - 18 units SQ HS PRN 05/30/23 08/21/24 [Toujeo Max Solostar] Insulin Glargine,Hum.rec.anlog 24 units SQ DAILY 05/30/23 08/21/24 [Toujeo Max Solostar] Multivit-Min/FA/Lycopen/Lutein 1 tab PO DAILY 05/30/23 08/21/24 [Centrum Silver Tablet] Albuterol Inhaler [Ventolin Hfa 2 puff INHALATION RT-QID PRN 01/09/24 08/21/24 Inhaler] Ascorbic Acid [Vitamin C] 1,000 mg PO DAILY 01/09/24 08/21/24 Vit C/E/Zn/Coppr/Lutein/Zeaxan 1 cap PO BID 01/09/24 08/21/24 [Preservision Areds 2 Softgel] Periguard Ointment 1 applic TOPICAL DIRECTED 03/03/24 08/21/24 Vits A and D/White Pet/Lanolin [A 1 applic TOPICAL DAILY PRN 03/03/24 08/21/24 and D Ointment] traMADol HCL 50 mg PO TID PRN 05/20/24 08/21/24 Previous Rx's Medication Instructions Recorded Magnesium Oxide [Mag-Ox] 400 mg PO DAILY #30 tab 01/16/24 Nystatin 100,000Unit/gm Cream 1 applic TOPICAL BID #60 g 01/16/24 [Mycostatin Cream] Sodium Bicarbonate Tab 650 mg PO BID #60 tab 01/16/24 Apixaban [Eliquis] 2.5 mg PO BID #60 tab 07/14/24 Metoprolol Succinate (ER) [Toprol 25 mg PO BID #60 tab 07/14/24 XL] Midodrine [ProAmatine] 10 mg PO AC-TID #90 tab 07/14/24 Ondansetron Odt [Zofran ODT] 4 mg PO Q8HR PRN #15 tab 07/29/24 Calcium Carbonate [Tums] 1,000 mg PO Q4HR PRN tab 08/27/24 Ciprofloxacin HCl [Cipro] 500 mg PO DAILY #20 tab 08/27/24 Darbepoetin Fernando [Aranesp] 60 mcg SQ Q7D 28 Days each 08/27/24 HYDROcodone/APAP 5-325MG [Ruth 1 each PO Q6H PRN #120 tab 08/27/24 5-325] Mag Hydrox/Al Hydrox/Simeth 15 ml PO Q6HR PRN ml 08/27/24 [Maalox] Sulfamethox-Tmp 800-160Mg [Bactrim 1 each PO DAILY #20 tab 08/27/24 DS 800-160 mg] Allergies Allergy/AdvReac Type Severity Reaction Status Date / Time shellfish derived [Shellfish] Allergy Severe vomiting Verified 09/04/24 10:14 -very ill adhesive Allergy skin red Verified 09/04/24 10:14 and murguia, tears skin aluminum Allergy skin turns Verified 09/04/24 10:14 black, passes out Antihistamines - Allergy heart Verified 09/04/24 10:14 Ethylenediamine palpitations codeine Allergy migraines Verified 09/04/24 10:14 epinephrine Allergy heart Verified 09/04/24 10:14 palpitations fluticasone [From Flonase] Allergy Unknown Verified 09/04/24 10:14 hydrogen peroxide Allergy murguia and Verified 09/04/24 10:14 causes infection latex Allergy passes out Verified 09/04/24 10:14 nickel Allergy turns skin Verified 09/04/24 10:14 black and passes out procaine HCl [From Novocain] Allergy passed Verified 09/04/24 10:14 out- due to epinephrine in it. thiopental sodium Allergy needed cpr Verified 09/04/24 10:14 [From Pentothal] resusitation insulin glargine AdvReac Intermediate Diarrhea, Verified 09/04/24 10:14 [From Lantus U-100 Insulin] Vomiting, upset stomach iron AdvReac Nausea Verified 09/04/24 10:14 methocarbamol [From Robaxin] AdvReac Hallucinati Verified 09/04/24 10:14 ons zinc oxide AdvReac Rash/Hives Verified 09/04/24 10:14 surgical felicita Allergy Severe had to be Uncoded 09/04/24 10:14 removed 2 days post-op petroleum products AdvReac passes out Uncoded 09/04/24 10:14 or does not feel well. (diesel, oils) Review of Systems ROS Statement: Those systems with pertinent positive or pertinent negative responses have been documented in the HPI. ROS Other: All systems not noted in ROS Statement are negative. Constitutional: Denies: fever Eyes: Denies: eye pain ENT: Denies: ear pain Respiratory: Denies: cough, dyspnea Cardiovascular: Denies: chest pain Endocrine: Denies: fatigue Gastrointestinal: Denies: abdominal pain Musculoskeletal: Denies: back pain Past Medical History Past Medical History: Atrial Fibrillation, Coronary Artery Disease (CAD), CVA/TIA, Diabetes Mellitus, Dialysis, Deep Vein Thrombosis (DVT), Hypertension, Myocardial Infarction ([place]), Osteoarthritis (OA) Additional Past Medical History / Comment(s): hx tia, hx stroke behind left eye., lt eye macular , states hospitalized with Covid April 2019 with life support and stage 3 kidney failure., hx of fall with hip fx and surgery 01/13/22 went to [facility] for Rehab. DVT during ., varicose veins, states painful sore left heel., hx of t.b. as a child with scarring on lungs. dialysis since 04/2024, and friday Last Myocardial Infarction Date:: unknown date History of Any Multi-Drug Resistant Organisms: MRSA, VRE Date of last positivie culture/infection: 09/09/22 MRSA & VRE ([facility]-Scanned) MDRO Source:: Blood Culture Past Surgical History: Adenoidectomy, Hysterectomy, Orthopedic Surgery, Tonsillectomy, Tubal Ligation Additional Past Surgical History / Comment(s): pilonidal cyst twice as child, rt knee arthroscopy, krystyna cataracts, krystyna great toe sx, ORIF Left hip (01/13/22) Past Anesthesia/Blood Transfusion Reactions: Previous Problems w/ Anesthesia, Postoperative Nausea & Vomiting (PONV) Additional Past Anesthesia/Blood Transfusion Reaction / Comment(s): difficulty waking up after sx. clausterphobia. 1960 blood transfusion(during child ) pt stated had palpitations after 2nd unit given Past Psychological History: Anxiety Smoking Status: Never smoker - Past Family History Mother Family Medical History: Cancer Additional Family Medical History / Comment(s): lung cancer Father Family Medical History: Coronary Artery Disease (CAD) Additional Family Medical History / Comment(s): heart disease, kidney disese General Exam Limitations: no limitations General appearance: alert, in no apparent distress Head exam: Present: normocephalic Eye exam: Present: normal appearance Neck exam: Present: normal inspection Respiratory exam: Present: normal lung sounds bilaterally Cardiovascular Exam: Present: regular rate, normal rhythm GI/Abdominal exam: Present: soft. Absent: tenderness Extremities exam: Present: other (Muscle atrophy of the legs. Patient states she does not ambulate.) Neurological exam: Present: alert Psychiatric exam: Present: normal affect, normal mood Skin exam: Present: normal color Course Vital Signs 09/04/24 10:12 Temperature 98.4 F Pulse Rate 78 Respiratory 20 Rate Blood Pressure 106/55 O2 Sat by Pulse 97 Oximetry Medical Decision Making - Medical Decision Making Was pt. sent in by a medical professional or institution (GLORIA Galindo, DIRECTOR NURSES' REGISTRY, urgent care, hospital, or long term...) When possible be specific @ -Patient was sent from dialysis center Did you speak to anyone other than the patient for history (EMS, parent, family, police, friend...)? What history was obtained from this source @ -No Did you review nursing and triage notes (agree or disagree)? Why? @ -I reviewed and agree with nursing and triage notes Were old charts reviewed (outside hosp., previous admission, EMS record, old EKG, old radiological studies, urgent care reports/EKG's, long term records)? Report findings @ -Multiple previous hemoglobins reviewed included hemoglobins from previous admission. Previous hemoglobin 7.0. Differential Diagnosis (chest pain, altered mental status, abdominal pain women, abdominal pain men, vaginal bleeding, weakness, fever, dyspnea, syncope, headache, dizziness, GI bleed, back pain, seizure, CVA, palpatations, mental health, musculoskeletal)? @ -Differential Weakness: Hypoglycemia, shock, sepsis, hyponatremia, anemia, infection, OH, ETOH, adverse medicine reaction, overdose, stroke, this is not meant to be an all-inclusive list. EKG interpreted by me (3pts min.). @ -As above X-rays interpreted by me (1pt min.). @ -Chest x-ray shows poor inspiration. Borderline cardiomegaly. No definite acute abnormality CT interpreted by me (1pt min.). @ -None done U/S interpreted by me (1pt. min.). @ -None done What testing was considered but not performed or refused? (CT, X-rays, U/S, labs)? Why? @ -None What meds were considered but not given or refused? Why? @ -None Did you discuss the management of the patient with other professionals (professionals i.e. GLORIA Galindo, DIRECTOR NURSES' REGISTRY, lab, RT, psych nurse, director social, bursar, teacher, senior compliance officer, special education case manager)? Give summary @ -Case was discussed with nephrology, Dr. Richmond who recommends 1 unit of blood and can be discharged. She states if patient cannot do dialysis today then she can do an extra 1 on Friday Was smoking cessation discussed for >3mins.? @ -No Was critical care preformed (if so, how long)? @ -No Were there social determinants of health that impacted care today? How? (Homelessness, low income, unemployed, alcoholism, drug addiction, transportation, low edu. Level, literacy, decrease access to med. care, group home, rehab)? @ -No Was there de-escalation of care discussed even if they declined (Discuss DNR or withdrawal of care, Hospice)? DNR status @ -No What co-morbidities impacted this encounter? (DM, HTN, Smoking, COPD, CAD, Cancer, CVA, ARF, Chemo, Hep., AIDS, mental health diagnosis, sleep apnea, morbid obesity)? @ -End-stage renal disease on hemodialysis Was patient admitted / discharged? Hospital course, mention meds given and route, prescriptions, significant lab abnormalities, going to OR and other pertinent info. @ -Patient presents with anemia. Patient has chronic anemia. Patient is symptom-free. Patient is updated on results and plan. Patient will receive a unit of blood and then be discharged Undiagnosed new problem with uncertain prognosis? @ -No Drug Therapy requiring intensive monitoring for toxicity (Heparin, Nitro, Insulin, Cardizem)? @ -Blood transfusion Were any procedures done? @ -No Diagnosis/symptom? @ -Anemia Acute, or Chronic, or Acute on Chronic? @ -Acute on chronic Uncomplicated (without systemic symptoms) or Complicated (systemic symptoms)? @ -Default Side effects of treatment? @ -No Exacerbation, Progression, or Severe Exacerbation? @ -No Poses a threat to life or bodily function? How? (Chest pain, [place], [place], pneumonia, PE, COPD, DKA, ARF, appy, cholecystitis, CVA, Diverticulitis, Homicidal, Suicidal, threat to staff... and all critical care pts) @ -Threat to hematological function - Lab Data Result diagrams: 09/04/24 11:19 09/04/24 11:19 Lab Results 09/04/24 09/04/24 09/04/24 Range/Units 11:19 11:19 11:19 WBC 7.33 (4.50-10.00) 10*3/uL RBC 2.72 L (4.10-5.20) 10*6/uL Hgb 7.0 L (12.0-15.0) g/dL Hct 22.2 L (37.2-46.3) % MCV 81.6 (80.0-97.0) fL MCH 25.7 L (27.0-32.0) pg MCHC 31.5 L (32.0-37.0) g/dL Plt Count 237 (140-440) 10*3/uL MPV 9.8 (9.5-12.2) fL Immature Gran % (Auto) 0.8 % Neutrophils % 71.2 % Lymphocytes % 15.3 % Monocytes % 8.9 % Eosinophils % 3.1 % Basophils % 0.7 % Immature Gran # 0.06 H (0.00-0.04) 10*3/uL Neutrophils # 5.22 (1.80-7.70) 10*3/uL Lymphocytes # 1.12 (0.90-5.00) 10*3/uL Monocytes # 0.65 (0.20-1.00) 10*3/uL Eosinophils # 0.23 (0.04-0.35) 10*3/uL Basophils # 0.05 (0.00-0.10) 10*3/uL PT 11.6 (10.0-12.5) sec INR 1.1 (<1.2) APTT 26.8 (22.0-30.0) sec Sodium 132 L (137-145) mmol/L Potassium 4.6 (3.5-5.1) mmol/L Chloride 100 (98-107) mmol/L Carbon Dioxide 21 L (22-30) mmol/L Anion Gap 11 mmol/L BUN 33 H (7-17) mg/dL Creatinine 3.85 H (0.52-1.04) mg/dL Est GFR (CKD-EPI)AfAm 12 (>60 ml/min/1.73 sqM) Est GFR (CKD-EPI)NonAf 10 (>60 ml/min/1.73 sqM) Glucose 169 H (74-99) mg/dL Calcium 8.6 (8.4-10.2) mg/dL Total Bilirubin 0.4 (0.2-1.3) mg/dL AST 45 H (14-36) U/L ALT 19 (4-34) U/L Alkaline Phosphatase 140 H (38-126) U/L Total Protein 5.4 L (6.3-8.2) g/dL Albumin 2.6 L (3.5-5.0) g/dL Disposition Clinical Impression: Anemia Disposition: HOME SELF-CARE Condition: Stable Instructions (If sedation given, give patient instructions): Anemia (ED) Additional Instructions: Following blood transfusion, please try to have your dialysis done today. If unable to have it done today please have extra dialysis on Friday. Please do follow-up with your primary care physician and your deli slicer in the next couple of days for recheck. Return for any bleeding, black stools, weakness, worsening or changing symptoms or any other concerns Is patient prescribed a controlled substance at d/c from ED?: No Referrals: Luis Shirley MD [Primary Care Provider] - 1-2 days Dariana Richmond MD [STAFF PHYSICIAN] - 1-2 days Time of Disposition: 13:13
[2024-09-04 11:32] LABS: Basophils # (A) 0.05 10*3/uL (0.00-0.10); Basophils % (A) 0.7 %; Eosinophils # (A) 0.23 10*3/uL (0.04-0.35); Eosinophils % (A) 3.1 %; HCT 22.2 % (37.2-46.3); Lymphocytes # (A) 1.12 10*3/uL (0.90-5.00); Lymphocytes % (A) 15.3 %; MCH 25.7 pg (27.0-32.0); MCHC 31.5 g/dL (32.0-37.0); MCV 81.6 fL (80.0-97.0); Mean Platelet Volume 9.8 fL (9.5-12.2); Monocytes # (A) 0.65 10*3/uL (0.20-1.00); Monocytes % (A) 8.9 %; Neutrophils # (A) 5.22 10*3/uL (1.80-7.70); Neutrophils % (A) 71.2 %; Platelet Count 237 10*3/uL (140-440); RBC 2.72 10*6/uL (4.10-5.20); RDW 21.3 % (11.5-14.5); WBC 7.33 10*3/uL (4.50-10.00)
--- NOTE | 2024-09-04 11:39 | XR ---
EXAMINATION TYPE: XR chest 1V portable DATE OF EXAM: 09/04/2024 11:28 AM COMPARISON: Chest radiographs from 08/21/2024 CLINICAL INDICATION: Female, 78 years old with history of anemia; [facility] TECHNIQUE: XR chest 1V portable Frontal view of the chest. FINDINGS: Lungs/Pleura: There is no evidence of pleural effusion, focal consolidation, or pneumothorax. Pulmonary vascularity: Unremarkable. Heart/mediastinum: Cardiomediastinal silhouette is enlarged. Musculoskeletal: No acute osseous pathology. Other findings: None Lines/Tubes: Right internal jugular central venous catheter with distal tip at the cavoatrial junction. IMPRESSION: No acute cardiopulmonary disease/process. [facility], , 09/04/2024 11:36 AM
[2024-09-04 11:50] LABS: INR 1.1 (<1.2); Partial Thromboplastin Time 26.8 sec (22.0-30.0); Prothrombin Time 11.6 sec (10.0-12.5)
[2024-09-04 11:53] LABS: ALT 19 U/L (4-34); AST 45 U/L (14-36); African American GFR (CKD) 12 (>60 ml/min/1.73 sqM); Albumin 2.6 g/dL (3.5-5.0); Alkaline Phosphatase 140 U/L (38-126); Anion Gap 11 mmol/L; Blood Urea Nitrogen 33 mg/dL (7-17); Calcium 8.6 mg/dL (8.4-10.2); Carbon Dioxide 21 mmol/L (22-30); Chloride 100 mmol/L (98-107); Glucose 169 mg/dL (74-99); Non-African American GFR(CKD) 10 (>60 ml/min/1.73 sqM); Potassium 4.6 mmol/L (3.5-5.1); Sodium 132 mmol/L (137-145); Total Bilirubin 0.4 mg/dL (0.2-1.3); Total Protein 5.4 g/dL (6.3-8.2)
[2024-09-04 13:13] VITALS: RESP 17
[2024-09-04] MEDS: MIDODRINE 5 MG TAB PO SCH (13:33)
[2024-09-04 16:38] VITALS: PULSE 61; TEMP 98.4
[2024-09-04] MEDS ORDERED: MIDODRINE 5 MG TAB PO SCH ×2 (17:30)
[2024-09-04] MEDS: SODIUM CHLORIDE 0.9% 500 ML 500 ML IV ONE (18:18)
[2024-09-04 19:14] VITALS: BP 100/52
== END 2024-09-04 19:14 | disposition home or self-care (01) ==
LOC: EC 09:56
DX: D64.9 Anemia, unspecified (principal); Z99.2 Dependence on renal dialysis; Z91.09 Other allergy status, other than to drugs and biological substances; Z91.013 Allergy to seafood; Z91.040 Latex allergy status; Z88.8 Allergy status to other drugs, medicaments and biological substances
CPT/HCPCS: 36415; 86900; 86901; 80053; 85025; 85610; 85730; 86850; 86920; 71045; 99284; 96360; 36430; P9016

== ENCOUNTER 2024-09-17 13:30 | Emergency (ER) | payer MEDICARE, OTHER ==
[2024-09-17 13:48] VITALS: TEMP 97.6
--- NOTE | 2024-09-17 14:29 | ED ---
General Adult HPI - General Source: patient, EMS, RN notes reviewed, old records reviewed Mode of arrival: EMS Limitations: no limitations <Trevor Joseph - Last Filed: 09/17/24 15:00> <Deanna Mcdonald - Last Filed: 09/17/24 23:00> - General Chief complaint: Shortness of Breath Stated complaint: abd pain Time Seen by Provider: 09/17/24 13:44 - History of Present Illness Initial comments: 78-year-old female history of end-stage renal disease on dialysis, history of CHF, presenting with nasal congestion and associated difficulty breathing. Patient states symptoms began over the past 24 hours. She states she did have dialysis yesterday. She denies central chest pain. Denies fever. Denies abdominal pain nausea or vomiting. States she feels congested and cannot breathe out of her nose. (Trevor Joseph) - Related Data Home Medications Medication Instructions Recorded Confirmed Sacubitril/Valsartan [Entresto 24 1 tab PO BID 01/12/22 08/21/24 mg-26 mg Tablet] Omeprazole [PriLOSEC] 20 mg PO DAILY 03/05/22 08/21/24 Ipratropium Bethany [Atrovent Hfa] 2 puff INHALATION RT-QID 09/09/22 08/21/24 ALPRAZolam [Xanax] 0.25 mg PO TID PRN 05/30/23 08/21/24 Ammonium Lactate Lotion 1 applic TOPICAL BID PRN 05/30/23 08/21/24 [Lac-Hydrin 12% Lotion] Aspirin 81 mg PO DAILY 05/30/23 08/21/24 Atorvastatin [Lipitor] 20 mg PO DAILY 05/30/23 08/21/24 Cholecalciferol [Vitamin D3 (25 25 mcg PO DAILY 05/30/23 08/21/24 Mcg = 1000 Iu)] Escitalopram [Lexapro] 10 mg PO DAILY 05/30/23 08/21/24 Furosemide [Lasix] 80 mg PO DAILY 05/30/23 08/21/24 Insulin Glargine,Hum.rec.anlog 16 - 18 units SQ HS PRN 05/30/23 08/21/24 [Al Reynolds] Insulin Glargine,Hum.rec.anlog 24 units SQ DAILY 05/30/23 08/21/24 [Tourachelo Max Solostar] Multivit-Min/FA/Lycopen/Lutein 1 tab PO DAILY 05/30/23 08/21/24 [Centrum Silver Tablet] Albuterol Inhaler [Ventolin Hfa 2 puff INHALATION RT-QID PRN 01/09/24 08/21/24 Inhaler] Ascorbic Acid [Vitamin C] 1,000 mg PO DAILY 01/09/24 08/21/24 Vit C/E/Zn/Coppr/Lutein/Zeaxan 1 cap PO BID 01/09/24 08/21/24 [Preservision Areds 2 Softgel] Periguard Ointment 1 applic TOPICAL DIRECTED 03/03/24 08/21/24 Vits A and D/White Pet/Lanolin [A 1 applic TOPICAL DAILY PRN 03/03/24 08/21/24 and D Ointment] traMADol HCL 50 mg PO TID PRN 05/20/24 08/21/24 Previous Rx's Medication Instructions Recorded Magnesium Oxide [Mag-Ox] 400 mg PO DAILY #30 tab 01/16/24 Nystatin 100,000Unit/gm Cream 1 applic TOPICAL BID #60 g 01/16/24 [Mycostatin Cream] Sodium Bicarbonate Tab 650 mg PO BID #60 tab 01/16/24 Apixaban [Eliquis] 2.5 mg PO BID #60 tab 07/14/24 Metoprolol Succinate (ER) [Toprol 25 mg PO BID #60 tab 07/14/24 XL] Midodrine [ProAmatine] 10 mg PO AC-TID #90 tab 07/14/24 Ondansetron Odt [Zofran ODT] 4 mg PO Q8HR PRN #15 tab 07/29/24 Calcium Carbonate [Tums] 1,000 mg PO Q4HR PRN tab 08/27/24 Ciprofloxacin HCl [Cipro] 500 mg PO DAILY #20 tab 08/27/24 Darbepoetin Fernando [Aranesp] 60 mcg SQ Q7D 28 Days each 08/27/24 HYDROcodone/APAP 5-325MG [Welch 1 each PO Q6H PRN #120 tab 08/27/24 5-325] Mag Hydrox/Al Hydrox/Simeth 15 ml PO Q6HR PRN ml 08/27/24 [Maalox] Sulfamethox-Tmp 800-160Mg [Bactrim 1 each PO DAILY #20 tab 08/27/24 DS 800-160 mg] Allergies Allergy/AdvReac Type Severity Reaction Status Date / Time shellfish derived [Shellfish] Allergy Severe vomiting Verified 09/04/24 10:14 -very ill adhesive Allergy skin red Verified 09/04/24 10:14 and murguia, tears skin aluminum Allergy skin turns Verified 09/04/24 10:14 black, passes out Antihistamines - Allergy heart Verified 09/04/24 10:14 Ethylenediamine palpitations codeine Allergy migraines Verified 09/04/24 10:14 epinephrine Allergy heart Verified 09/04/24 10:14 palpitations fluticasone [From Flonase] Allergy Unknown Verified 09/04/24 10:14 hydrogen peroxide Allergy murguia and Verified 09/04/24 10:14 causes infection latex Allergy passes out Verified 09/04/24 10:14 nickel Allergy turns skin Verified 09/04/24 10:14 black and passes out procaine HCl [From Novocain] Allergy passed Verified 09/04/24 10:14 out- due to epinephrine in it. thiopental sodium Allergy needed cpr Verified 09/04/24 10:14 [From Pentothal] resusitation insulin glargine AdvReac Intermediate Diarrhea, Verified 09/04/24 10:14 [From Lantus U-100 Insulin] Vomiting, upset stomach iron AdvReac Nausea Verified 09/04/24 10:14 methocarbamol [From Robaxin] AdvReac Hallucinati Verified 09/04/24 10:14 ons zinc oxide AdvReac Rash/Hives Verified 09/04/24 10:14 surgical felicita Allergy Severe had to be Uncoded 09/04/24 10:14 removed 2 days post-op petroleum products AdvReac passes out Uncoded 09/04/24 10:14 or does not feel well. (diesel, oils) Review of Systems ROS Other: All systems not noted in ROS Statement are negative. <Trevor Joseph - Last Filed: 09/17/24 15:00> ROS Other: All systems not noted in ROS Statement are negative. <Deanna Mcdonald - Last Filed: 09/17/24 23:00> ROS Statement: Those systems with pertinent positive or pertinent negative responses have been documented in the HPI. Past Medical History Past Medical History: Atrial Fibrillation, Coronary Artery Disease (CAD), CVA/TIA, Diabetes Mellitus, Dialysis, Deep Vein Thrombosis (DVT), Hypertension, Myocardial Infarction (VT), Osteoarthritis (OA) Additional Past Medical History / Comment(s): hx tia, hx stroke behind left eye., lt eye macular , states hospitalized with Covid April 2019 with life support and stage 3 kidney failure., hx of fall with hip fx and surgery 01/13/22 went to [facility]hab. DVT during ., varicose veins, states painful sore left heel., hx of t.b. as a child with scarring on lungs. dialysis since 04/2024, and friday Last Myocardial Infarction Date:: unknown date History of Any Multi-Drug Resistant Organisms: MRSA, VRE Date of last positivie culture/infection: 09/09/22 MRSA & VRE ([facility]-Scanned) MDRO Source:: Blood Culture Past Surgical History: Adenoidectomy, Hysterectomy, Orthopedic Surgery, Tonsillectomy, Tubal Ligation Additional Past Surgical History / Comment(s): pilonidal cyst twice as child, rt knee arthroscopy, krystyna cataracts, krystyna great toe sx, ORIF Left hip (01/13/22) Past Anesthesia/Blood Transfusion Reactions: Previous Problems w/ Anesthesia, Postoperative Nausea & Vomiting (PONV) Additional Past Anesthesia/Blood Transfusion Reaction / Comment(s): difficulty waking up after sx. clausterphobia. 1961 blood transfusion(during child ) pt stated had palpitations after 2nd unit given Past Psychological History: Anxiety Smoking Status: Never smoker - Past Family History Mother Family Medical History: Cancer Additional Family Medical History / Comment(s): lung cancer Father Family Medical History: Coronary Artery Disease (CAD) Additional Family Medical History / Comment(s): heart disease, kidney disese <Trevor Joseph - Last Filed: 09/17/24 15:00> General Exam Limitations: no limitations General appearance: alert, in no apparent distress Head exam: Present: atraumatic, normocephalic Eye exam: Present: normal appearance, PERRL ENT exam: Present: normal exam Neck exam: Present: normal inspection. Absent: tenderness, meningismus Respiratory exam: Present: normal lung sounds bilaterally. Absent: respiratory distress, wheezes, rhonchi Cardiovascular Exam: Present: regular rate, normal rhythm GI/Abdominal exam: Present: soft. Absent: distended, tenderness, guarding Neurological exam: Present: alert, oriented X3 Psychiatric exam: Present: normal affect, normal mood Skin exam: Present: warm, dry, intact <Trevor Joseph - Last Filed: 09/17/24 15:00> Course Vital Signs 09/17/24 09/17/24 09/17/24 13:43 15:48 17:33 Temperature 97.6 F Pulse Rate 68 72 80 Respiratory 22 18 18 Rate Blood Pressure 91/39 100/48 101/46 O2 Sat by Pulse 100 97 97 Oximetry 09/17/24 19:14 Temperature Pulse Rate 90 Respiratory 16 Rate Blood Pressure 96/42 O2 Sat by Pulse 97 Oximetry Medical Decision Making - Lab Data Result diagrams: 09/17/24 14:37 09/17/24 14:37 <Trevor Joseph - Last Filed: 09/17/24 15:00> - Lab Data Result diagrams: 09/17/24 14:37 09/17/24 14:37 <Deanna Mcdonald - Last Filed: 09/17/24 23:00> - Medical Decision Making Was pt. sent in by a medical professional or institution (REBECCA Galindo, BED MAKER, urgent care, hospital, or fpc...) When possible be specific @ -No Did you speak to anyone other than the patient for history (EMS, parent, family, police, friend...)? What history was obtained from this source @ -No Did you review nursing and triage notes (agree or disagree)? Why? @ -I reviewed and agree with nursing and triage notes Were old charts reviewed (outside hosp., previous admission, EMS record, old EKG, old radiological studies, urgent care reports/EKG's, fpc records)? Report findings @ -No old charts were reviewed Differential Dyspnea: Coronary syndrome, arrhythmia, tamponade, asthma, COPD, pulmonary embolism, pneumonia, pneumothorax, pulmonary effusion, anaphylaxis, diabetic ketoacidosis, flailed chest, pulmonary contusion, diaphragmatic rupture, anemia, neuromuscular, this is not meant to be an all-inclusive list. EKG interpreted by me (3pts min.). @ -Sinus rhythm with PVC rate of 68, W[place] interval 180, QRS duration 115, QTc 449 low voltage X-rays interpreted by me (1pt min.). @Pending CT interpreted by me (1pt min.). @ -None done U/S interpreted by me (1pt. min.). @ -None done What testing was considered but not performed or refused? (CT, X-rays, U/S, labs)? Why? @ -None What meds were considered but not given or refused? Why? @ -None Did you discuss the management of the patient with other professionals (professionals i.e. DrImer, PA, BED MAKER, lab, RT, psych nurse, forensic social worker, reading assistant, teacher, financial aids officer, telephonic nurse case manager)? Give summary @ -No Was smoking cessation discussed for >3mins.? @ -No Was critical care preformed (if so, how long)? @ -No Were there social determinants of health that impacted care today? How? (Homelessness, low income, unemployed, alcoholism, drug addiction, transportati on, low edu. Level, literacy, decrease access to med. care, shelter, rehab)? @ -No Was there de-escalation of care discussed even if they declined (Discuss DNR or withdrawal of care, Hospice)? DNR status @ -No What co-morbidities impacted this encounter? (DM, HTN, Smoking, COPD, CAD, Cancer, CVA, ARF, Chemo, Hep., AIDS, mental health diagnosis, sleep apnea, morbid obesity)? @ -End-stage renal disease, A-fib, CAD, CHF, diabetes Was patient admitted / discharged? Hospital course, mention meds given and route, prescriptions, significant lab abnormalities, going to OR and other pertinent info. @ -Patient care signed out to Dr. Mcdonald at shift change awaiting workup and reevaluation (Trevor Joseph) Patient was signed out to myself pending completion of labs and chest x-ray, briefly she is an 78-year-old female past medical history of end-stage renal disease on dialysis presenting for congestion. Labs and imaging reviewed. Grossly within normal limits. Abnormal values not concerning for acute pathology related to presenting complaint. Discussed patient plan for discharge home. Patient is demanding a paracentesis be done because she is due for one since she typically gets one once a month. States she was called by "a woman" this morning that said she had one scheduled here at [facility] this morning however pt came to the ED instead. She is unable to provide a name or contact information for the person who told her she could get a paracentesis. CM Patient is not febrile, her vital signs are stable she is not hypoxic. IR is not available at this time and patient is stable for discharge. Confirmed with CM that there was no paracentesis scheduled for the patient today. I discussed with patient given her stable vital signs she will need to follow-up outpatient or on Friday for paracentesis. Patient did become very upset with this, stating that the only way she has to get to the hospital is if she comes to the ED via ambulance.. I discussed with her that emergent issues have been ruled out and there is currently no indication to admit her to the hospital. Myself and case management have actually had a similar discussion with the patient in the past during a prior visit regarding similar issues. I did discuss with JON, rebecca Calvo's dilemmramon. As IR is not currently available and patient is stable for discharge, there is currently no reason to admit patient to the hospital. Case management at bedside assisted me with this conversation. I tried to discuss with patient signs and symptoms to monitor for warranting return to the ER however she declined to listen due to frustration. Pt's son then requested to speak with myself. Her son states that they are concerned due to patient's throat congestion. Patient initially states that this has been ongoing since last night however then stated she has been on antibiotics previously for this issue during her prior admission, had green sputum at that point though however this has cleared to clear sputum. She states she is having difficulty speaking however speech is clear, she is tolerating secretions and has no stridor. Patient also states she is going to have a panic attack and states she cannot be discharged. On oropharyngeal exam there is no erythema, tonsillar exudates or swelling. Did consider ordering Mucinex and antihistamines as well as Flonase however patient is allergic to these. Discussed with patient obtaining x-ray of the neck however anticipate discharge for outpatient follow up given reassuring exam. Patient agreeable w/ plan of care. X-ray soft tissue neck showed "possible mild subglottic narrowing of the trachea" no additional radiographic evidence of acute abnormality in the neck. Again patient was able to tolerate p.o. fluids here, has no stridor, is afebrile, tolerating secretions therefore I do not feel she needs to be admitted to have this addressed further at this time. Discussed with patient the importance of following up with the ENT as well as signs and symptoms to monitor for warranting to return to the ER such as coughing up blood, fevers, difficulty in breathing, inability to tolerate fluids. Patient verbalized understanding and was agreeable plan for discharge home at this point. In my medical judgment there is currently no evidence of an immediate life- threatening or surgical condition. Discharge is therefore indicated at this time. Discharge treatment instructions, follow up instructions, and appropriate emergency department return precautions were discussed with the patient and/or medical decision maker. Patient and/or medical decision maker expressed understanding of and agreed with the treatment plan, follow up instructions, and emergency department return precaution. All patient's and/or medical decision maker's questions were answered. The patient was instructed to return to the ED for any changes in symptoms, persistent symptoms, inability to obtain proper follow-up or for any further concerns. Patient received verbal and written instructions for this condition. Undiagnosed new problem with uncertain prognosis? @ -No Drug Therapy requiring intensive monitoring for toxicity (Heparin, Nitro, Insulin, Cardizem)? @ -No Were any procedures done? @ -No Diagnosis/symptom? @Throat and chest congestion Acute, or Chronic, or Acute on Chronic? @ -acute, acute on chronic Uncomplicated (without systemic symptoms) or Complicated (systemic symptoms)? uncomplicatefd Side effects of treatment? @ -No Exacerbation, Progression, or Severe Exacerbation? @ -No Poses a threat to life or bodily function? How? (Chest pain, USA, VT, pneumonia, PE, COPD, DKA, ARF, appy, cholecystitis, CVA, Diverticulitis, Homicidal, Suicidal, threat to staff... and all critical care pts) @ -No (Deanna Mcdonald) - Lab Data Lab Results 09/17/24 09/17/24 09/17/24 Range/Units 14:06 14:37 14:37 WBC 6.44 (4.50-10.00) 10*3/uL RBC 2.99 L (4.10-5.20) 10*6/uL Hgb 8.3 L (12.0-15.0) g/dL Hct 27.1 L (37.2-46.3) % MCV 90.6 D (80.0-97.0) fL MCH 27.8 (27.0-32.0) pg MCHC 30.6 L (32.0-37.0) g/dL RDW 27.7 H (11.5-14.5) % Plt Count 235 (140-440) 10*3/uL MPV 9.6 (9.5-12.2) fL Immature Gran % (Auto) 0.5 % Neutrophils % 66.2 % Lymphocytes % 20.0 % Monocytes % 9.9 % Eosinophils % 2.3 % Basophils % 1.1 % Immature Gran # 0.03 (0.00-0.04) 10*3/uL Neutrophils # 4.26 (1.80-7.70) 10*3/uL Lymphocytes # 1.29 (0.90-5.00) 10*3/uL Monocytes # 0.64 (0.20-1.00) 10*3/uL Eosinophils # 0.15 (0.04-0.35) 10*3/uL Basophils # 0.07 (0.00-0.10) 10*3/uL Manual Slide Review Performed Hypochromasia (manual) Present Poikilocytosis (manual Present Anisocytosis (manual) Present Sodium 135 L (137-145) mmol/L Potassium 4.1 (3.5-5.1) mmol/L Chloride 100 (98-107) mmol/L Carbon Dioxide 23 (22-30) mmol/L Anion Gap 12 mmol/L BUN 20 H (7-17) mg/dL Creatinine 2.96 H (0.52-1.04) mg/dL Est GFR (CKD-EPI)AfAm 17 (>60 ml/min/1.73 sqM) Est GFR (CKD-EPI)NonAf 14 (>60 ml/min/1.73 sqM) Glucose 67 L (74-99) mg/dL Calcium 9.0 (8.4-10.2) mg/dL Total Bilirubin 0.8 (0.2-1.3) mg/dL AST 50 H (14-36) U/L ALT 18 (4-34) U/L Alkaline Phosphatase 111 (38-126) U/L Total Protein 5.6 L (6.3-8.2) g/dL Albumin 2.7 L (3.5-5.0) g/dL Influenza Type A (PCR) Not Detected (Not Detectd) Influenza Type B (PCR) Not Detected (Not Detectd) RSV (PCR) Not Detected (Not Detectd) SARS-CoV-2 (PCR) Not Detected (Not Detectd) Disposition <Trevor Joseph - Last Filed: 09/17/24 15:00> Is patient prescribed a controlled substance at d/c from ED?: No <Deanna Mcdonald - Last Filed: 09/17/24 23:00> Clinical Impression: Nasal congestion Disposition: HOME SELF-CARE Condition: Good Instructions (If sedation given, give patient instructions): Cold Symptoms (ED) Additional Instructions: Every disease is a spectrum and a small chance still exists that a serious condition could develop, for this reason, please monitor yourself closely for new, changing or worsening symptoms, symptoms that persist beyond 48 hours, new abdominal pain, change in symptoms, chest pain fever, inability to tolerate/keep down fluids or your medications, inability to follow up with outpatient providers as instructed and should you experience these symptoms or should you have any further concerns for your wellbeing please return to the ED or call 911 immediately. Please follow up with ENT regarding XR findings within on week. PLEASE call your primary care physician as soon as possible to arrange / discuss plan for followup appointment. Appointment in the next 1-3 days is strongly encouraged if possible. PLEASE let us know here before you leave if there is anything further we can do to be of any assistance. Take care and feel Better! Referrals: Luis Shirley MD [Primary Care Provider] - 1-2 days Shaun Kearns MD [STAFF PHYSICIAN] - 1-2 days
[2024-09-17] MEDS: MIDODRINE 5 MG TAB PO STA ×2 (14:39→18:48)
[2024-09-17] MEDS: SODIUM CHLORIDE 0.9% 500 ML 500 ML IV ONE (14:40)
[2024-09-17 14:47] LABS: Basophils # (A) 0.07 10*3/uL (0.00-0.10); Basophils % (A) 1.1 %; Eosinophils # (A) 0.15 10*3/uL (0.04-0.35); Eosinophils % (A) 2.3 %; HCT 27.1 % (37.2-46.3); HGB 8.3 g/dL (12.0-15.0); Lymphocytes # (A) 1.29 10*3/uL (0.90-5.00); MCH 27.8 pg (27.0-32.0); MCHC 30.6 g/dL (32.0-37.0); Mean Platelet Volume 9.6 fL (9.5-12.2); Monocytes # (A) 0.64 10*3/uL (0.20-1.00); Monocytes % (A) 9.9 %; Neutrophils # (A) 4.26 10*3/uL (1.80-7.70); Neutrophils % (A) 66.2 %; Platelet Count 235 10*3/uL (140-440); RBC 2.99 10*6/uL (4.10-5.20); WBC 6.44 10*3/uL (4.50-10.00)
[2024-09-17 14:54] LABS: RDW 27.7 % (11.5-14.5)
[2024-09-17 14:55] LABS: MCV 90.6 fL (80.0-97.0)
[2024-09-17 14:57] LABS: Influenza A Not Detected (Not Detectd); Influenza B Not Detected (Not Detectd); RSV Not Detected (Not Detectd)
[2024-09-17 14:59] LABS: ALT 18 U/L (4-34); AST 50 U/L (14-36); African American GFR (CKD) 17 (>60 ml/min/1.73 sqM); Albumin 2.7 g/dL (3.5-5.0); Alkaline Phosphatase 111 U/L (38-126); Anion Gap 12 mmol/L; Blood Urea Nitrogen 20 mg/dL (7-17); Carbon Dioxide 23 mmol/L (22-30); Chloride 100 mmol/L (98-107); Glucose 67 mg/dL (74-99); Non-African American GFR(CKD) 14 (>60 ml/min/1.73 sqM); Potassium 4.1 mmol/L (3.5-5.1); Sodium 135 mmol/L (137-145); Total Bilirubin 0.8 mg/dL (0.2-1.3); Total Protein 5.6 g/dL (6.3-8.2)
[2024-09-17 15:36] LABS: Anisocytosis (M) Present; Hypochromasia (M) Present; Poikilocytosis (M) Present
--- NOTE | 2024-09-17 16:27 | XR ---
EXAMINATION TYPE: XR chest 2V DATE OF EXAM: 09/17/2024 4:07 PM COMPARISON: 09/04/2024 CLINICAL INDICATION: Female, 78 years old with history of cough, TECHNIQUE: XR chest 2V view(s) obtained. FINDINGS: The heart size is mildly prominent.. The pulmonary vasculature is normal. The lungs are clear. Catheter is on the right with tips in the distal superior vena cava right atria l junction region IMPRESSION: 1. No acute pulmonary process. [facility], , 09/17/2024 4:25 PM
--- NOTE | 2024-09-17 18:45 | XR ---
EXAMINATION TYPE: XR soft tissue neck DATE OF EXAM: 09/17/2024 6:15 PM COMPARISON: None CLINICAL INDICATION: Female, 78 years old with history of sob; H TECHNIQUE: The soft tissues of the neck were imaged in frontal and lateral views. FINDINGS: The prevertebral soft tissues are unremarkable. There is no evidence of mass effect or trac heal deviation. No acute osseous abnormality demonstrated. Possible mild subglottic narrowing. Cervi lacy spine degenerative changes. IMPRESSION: Possible mild subglottic narrowing of the trachea. No additional radiographic evidence of acute abnor mality in the neck. [facility], , 09/17/2024 6:43 PM
[2024-09-17 19:15] VITALS: BP 96/42; PULSE 90; RESP 16
== END 2024-09-17 20:52 | disposition home or self-care (01) ==
LOC: EC 13:30
DX: R10.9 Unspecified abdominal pain (principal); R09.81 Nasal congestion; I13.2 Hypertensive heart and chronic kidney disease with heart failure and with stage 5 chronic kidney disease, or end stage renal disease; E11.22 Type 2 diabetes mellitus with diabetic chronic kidney disease; N18.6 End stage renal disease; I48.91 Unspecified atrial fibrillation; I50.9 Heart failure, unspecified; I25.10 Atherosclerotic heart disease of native coronary artery without angina pectoris; Z91.013 Allergy to seafood; Z88.8 Allergy status to other drugs, medicaments and biological substances; Z91.040 Latex allergy status; Z91.048 Other nonmedicinal substance allergy status; Z88.5 Allergy status to narcotic agent; Z99.2 Dependence on renal dialysis
CPT/HCPCS: 36415; 70360; 71046; 80053; 85025; 87636; 93005; 96360; 99285

== ENCOUNTER 2024-09-26 21:07 | Observation (INO) | payer MEDICARE, OTHER ==
[2024-09-26 21:49] LABS: Basophils # (A) 0.08 10*3/uL (0.00-0.10); Basophils % (A) 1.2 %; Eosinophils # (A) 0.27 10*3/uL (0.04-0.35); Eosinophils % (A) 4.2 %; HCT 25.9 % (37.2-46.3); HGB 7.7 g/dL (12.0-15.0); Lymphocytes # (A) 1.90 10*3/uL (0.90-5.00); Lymphocytes % (A) 29.6 %; MCH 28.8 pg (27.0-32.0); MCHC 29.7 g/dL (32.0-37.0); Monocytes # (A) 1.21 10*3/uL (0.20-1.00); Monocytes % (A) 18.8 %; Neutrophils # (A) 2.83 10*3/uL (1.80-7.70); Neutrophils % (A) 44.2 %; Platelet Count 155 10*3/uL (140-440); RBC 2.67 10*6/uL (4.10-5.20); WBC 6.42 10*3/uL (4.50-10.00)
[2024-09-26 21:54] LABS: MCV 97.0 fL (80.0-97.0); RDW 27.9 % (11.5-14.5)
[2024-09-26 21:58] LABS: INR 1.1 (<1.2); Partial Thromboplastin Time 24.7 sec (22.0-30.0); Prothrombin Time 11.9 sec (10.0-12.5)
[2024-09-26 22:11] LABS: Anisocytosis (M) Present; Ovalocytes Present; Poikilocytosis (M) Present; Polychromasia Present
[2024-09-26 22:12] LABS: RBC Fragments Present
[2024-09-26 22:18] LABS: ALT 19 U/L (4-34); African American GFR (CKD) 19 (>60 ml/min/1.73 sqM); Albumin 2.6 g/dL (3.5-5.0); Amylase 41 U/L (30-110); Anion Gap 8 mmol/L; Blood Urea Nitrogen 25 mg/dL (7-17); Calcium 8.4 mg/dL (8.4-10.2); Carbon Dioxide 23 mmol/L (22-30); Chloride 105 mmol/L (98-107); Glucose 155 mg/dL (74-99); Lipase 199 U/L (23-300); Non-African American GFR(CKD) 16 (>60 ml/min/1.73 sqM); Sodium 136 mmol/L (137-145); Total Protein 5.6 g/dL (6.3-8.2)
[2024-09-26 22:24] LABS: AST 73 U/L (14-36); Alkaline Phosphatase 98 U/L (38-126); Potassium 4.4 mmol/L (3.5-5.1)
[2024-09-27] MEDS: MORPHINE SULFATE 4 MG/ML SYRINGE IV STA (02:12)
[2024-09-27] MEDS ORDERED: NALOXONE 0.4 MG/ML 1 ML VIAL IV PRN (06:34)
[2024-09-27] MEDS ORDERED: MORPHINE SULFATE 4 MG/ML SYRINGE IV PRN (06:34)
--- NOTE | 2024-09-27 06:34 | ED ---
Abdominal Pain HPI - General Chief Complaint: Abdominal Pain Stated Complaint: Abdominal Pain Source: patient Mode of arrival: EMS Limitations: no limitations - History of Present Illness MD Complaint: abdominal pain -: days(s) Location: RUQ Radiation: none Severity: moderate Quality: aching, fullness Consistency: constant Improves With: nothing Worsens With: movement Associated Symptoms: nausea - Related Data Home Medications Medication Instructions Recorded Confirmed Sacubitril/Valsartan [Entresto 24 1 tab PO BID 01/12/22 09/27/24 mg-26 mg Tablet] Omeprazole [PriLOSEC] 20 mg PO DAILY 03/05/22 09/27/24 Ipratropium [place] [Atrovent Hfa] 2 puff INHALATION RT-QID 09/09/22 09/27/24 ALPRAZolam [Xanax] 0.25 mg PO TID PRN 05/30/23 09/27/24 Ammonium Lactate Lotion 1 applic TOPICAL BID PRN 05/30/23 09/27/24 [Lac-Hydrin 12% Lotion] Aspirin 81 mg PO DAILY 05/30/23 09/27/24 Atorvastatin [Lipitor] 20 mg PO DAILY 05/30/23 09/27/24 Cholecalciferol [Vitamin D3 (25 25 mcg PO DAILY 05/30/23 09/27/24 Mcg = 1000 Iu)] Escitalopram [Lexapro] 10 mg PO DAILY 05/30/23 09/27/24 Insulin Glargine,Hum.rec.anlog 16 - 18 units SQ HS PRN 05/30/23 09/27/24 [Toujeo Max Solostar] Insulin Glargine,Hum.rec.anlog 24 units SQ DAILY 05/30/23 09/27/24 [Toujeo Max Solostar] Multivit-Min/FA/Lycopen/Lutein 1 tab PO DAILY 05/30/23 09/27/24 [Centrum Silver Tablet] Albuterol Inhaler [Ventolin Hfa 2 puff INHALATION RT-QID PRN 01/09/24 09/27/24 Inhaler] Ascorbic Acid [Vitamin C] 1,000 mg PO DAILY 01/09/24 09/27/24 Vit C/E/Zn/Coppr/Lutein/Zeaxan 1 cap PO BID 01/09/24 09/27/24 [Preservision Areds 2 Softgel] Periguard Ointment 1 applic TOPICAL DIRECTED 03/03/24 09/27/24 Vits A and D/White Pet/Lanolin [A 1 applic TOPICAL DAILY PRN 03/03/24 09/27/24 and D Ointment] traMADol HCL 50 mg PO TID PRN 05/20/24 09/27/24 Furosemide [Lasix] 80 mg PO DAILY 09/27/24 09/27/24 Midodrine HCl 10 mg PO AC-TID 09/27/24 09/27/24 Previous Rx's Medication Instructions Recorded Magnesium Oxide [Mag-Ox] 400 mg PO DAILY #30 tab 01/16/24 Nystatin 100,000Unit/gm Cream 1 applic TOPICAL BID #60 g 01/16/24 [Mycostatin Cream] Sodium Bicarbonate Tab 650 mg PO BID #60 tab 01/16/24 Apixaban [Eliquis] 2.5 mg PO BID #60 tab 07/14/24 Metoprolol Succinate (ER) [Toprol 25 mg PO BID #60 tab 07/14/24 XL] Ondansetron Odt [Zofran ODT] 4 mg PO Q8HR PRN #15 tab 07/29/24 Calcium Carbonate [Tums] 1,000 mg PO Q4HR PRN tab 08/27/24 Allergies Allergy/AdvReac Type Severity Reaction Status Date / Time shellfish derived [Shellfish] Allergy Severe vomiting Verified 09/27/24 10:50 -very ill adhesive Allergy skin red Verified 09/27/24 10:50 and murguia, tears skin aluminum Allergy skin turns Verified 09/27/24 10:50 black, passes out Antihistamines - Allergy heart Verified 09/27/24 10:50 Ethylenediamine palpitations codeine Allergy migraines Verified 09/27/24 10:50 epinephrine Allergy heart Verified 09/27/24 10:50 palpitations fluticasone [From Flonase] Allergy Unknown Verified 09/27/24 10:50 hydrogen peroxide Allergy murguia and Verified 09/27/24 10:50 causes infection latex Allergy passes out Verified 09/27/24 10:50 nickel Allergy turns skin Verified 09/27/24 10:50 black and passes out procaine HCl [From Novocain] Allergy passed Verified 09/27/24 10:50 out- due to epinephrine in it. thiopental sodium Allergy needed cpr Verified 09/27/24 10:50 [From Pentothal] resusitation insulin glargine AdvReac Intermediate Diarrhea, Verified 09/27/24 10:50 [From Lantus U-100 Insulin] Vomiting, upset stomach iron AdvReac Nausea Verified 09/27/24 10:50 methocarbamol [From Robaxin] AdvReac Hallucinati Verified 09/27/24 10:50 ons zinc oxide AdvReac Rash/Hives Verified 09/27/24 10:50 surgical felicita Allergy Severe had to be Uncoded 09/27/24 10:50 removed 2 days post-op petroleum products AdvReac passes out Uncoded 09/27/24 10:50 or does not feel well. (diesel, oils) Review of Systems ROS Statement: Those systems with pertinent positive or pertinent negative responses have been documented in the HPI. ROS Other: All systems not noted in ROS Statement are negative. Constitutional: Denies: fever, chills, weakness Respiratory: Denies: cough, dyspnea Cardiovascular: Denies: chest pain, palpitations, edema Gastrointestinal: Reports: abdominal pain. Denies: nausea, vomiting, diarrhea, constipation, melena, hematochezia Genitourinary: Denies: dysuria, hematuria Musculoskeletal: Denies: back pain Skin: Denies: rash Neurological: Denies: headache, weakness Past Medical History Past Medical History: Atrial Fibrillation, Coronary Artery Disease (CAD), CVA/TIA, Diabetes Mellitus, Dialysis, Deep Vein Thrombosis (DVT), Hypertension, Myocardial Infarction (NE), Osteoarthritis (OA) Additional Past Medical History / Comment(s): hx tia, hx stroke behind left eye. , lt eye macular , states hospitalized with Covid April 2019 with life support and stage 3 kidney failure., hx of fall with hip fx and surgery 01/13/22 went to [facility] for Rehab. DVT during ., varicose veins, states painful sore left heel., hx of t.b. as a child with scarring on lungs. dialysis since 04/2024, and friday Last Myocardial Infarction Date:: unknown date History of Any Multi-Drug Resistant Organisms: MRSA, VRE Date of last positivie culture/infection: 09/09/22 MRSA & VRE ([facility]-Scanned) MDRO Source:: Blood Culture Past Surgical History: Adenoidectomy, Hysterectomy, Orthopedic Surgery, Tonsillectomy, Tubal Ligation Additional Past Surgical History / Comment(s): pilonidal cyst twice as child, rt knee arthroscopy, krystyna cataracts, krystyna great toe sx, ORIF Left hip (01/13/22) Past Anesthesia/Blood Transfusion Reactions: Previous Problems w/ Anesthesia, Po stoperative Nausea & Vomiting (PONV) Additional Past Anesthesia/Blood Transfusion Reaction / Comment(s): difficulty waking up after sx. clausterphobia. 1961 blood transfusion(during child ) pt stated had palpitations after 2nd unit given Past Psychological History: Anxiety Smoking Status: Never smoker Past Alcohol Use History: None Reported Past Drug Use History: None Reported - Past Family History Mother Family Medical History: Cancer Additional Family Medical History / Comment(s): lung cancer Father Family Medical History: Coronary Artery Disease (CAD) Additional Family Medical History / Comment(s): heart disease, kidney disese General Exam Limitations: no limitations General appearance: alert, in no apparent distress Head exam: Present: atraumatic, normocephalic Eye exam: Present: normal appearance. Absent: scleral icterus, conjunctival injection ENT exam: Present: normal oropharynx Neck exam: Present: normal inspection Respiratory exam: Present: normal lung sounds bilaterally. Absent: respiratory distress, wheezes, rales, rhonchi, stridor, accessory muscle use Cardiovascular Exam: Present: regular rate, normal rhythm, normal heart sounds. Absent: systolic murmur, diastolic murmur, rubs, gallop GI/Abdominal exam: Present: distended, tenderness (There is some localized tenderness and fullness to the right upper quadrant which seems consistent with loculated ascites, there is no rebound or other findings suggestive of peritonitis), organomegaly. Absent: soft, guarding, rebound, rigid, mass Extremities exam: Present: normal inspection, normal capillary refill. Absent: pedal edema, calf tenderness Back exam: Present: normal inspection. Absent: CVA tenderness (R), CVA tenderness (L) Neurological exam: Present: alert Skin exam: Present: warm, dry, intact, normal color. Absent: rash Course Vital Signs 09/26/24 09/27/24 09/27/24 21:08 00:15 04:28 Temperature 98.9 F Pulse Rate 60 63 67 Pulse Rate [ Right Supine] Respiratory 17 18 18 Rate Blood Pressure 95/43 97/67 99/49 Blood Pressure [Left Arm Supine] Blood Pressure [Right Arm Supine] O2 Sat by Pulse 96 95 Oximetry 09/27/24 09/27/24 09/27/24 09:00 09:23 09:25 Temperature Pulse Rate 54 L Pulse Rate [ 56 L 60 Right Supine] Respiratory 14 12 12 Rate Blood Pressure 103/54 Blood Pressure 72/42 [Left Arm Supine] Blood Pressure 80/47 [Right Arm Supine] O2 Sat by Pulse 97 99 99 Oximetry 09/27/24 09/27/24 09/27/24 09:53 14:29 14:45 Temperature Pulse Rate 57 L 66 56 L Pulse Rate [ Right Supine] Respiratory 16 14 14 Rate Blood Pressure 88/50 102/51 106/54 Blood Pressure [Left Arm Supine] Blood Pressure [Right Arm Supine] O2 Sat by Pulse 98 98 99 Oximetry 09/27/24 09/27/24 09/27/24 15:15 15:38 17:00 Temperature 98.8 F Pulse Rate 56 L 65 Pulse Rate [ Right Supine] Respiratory 14 17 Rate Blood Pressure 100/65 103/58 87/51 Blood Pressure [Left Arm Supine] Blood Pressure [Right Arm Supine] O2 Sat by Pulse 97 98 Oximetry 09/27/24 09/27/24 09/27/24 18:47 19:52 20:05 Temperature 98.0 F 98.5 F Pulse Rate 64 87 Pulse Rate [ 60 Right Supine] Respiratory 19 16 Rate Blood Pressure 97/51 101/50 Blood Pressure 89/54 [Left Arm Supine] Blood Pressure [Right Arm Supine] O2 Sat by Pulse 97 98 96 Oximetry Medical Decision Making - Medical Decision Making This patient is an 78-year-old woman presenting with abdominal pain and exam consistent with ascites. Will admit patient to have interventional radiology perform paracentesis. Was pt. sent in by a medical professional or institution (, PA, [employer], urgent care, hospital, or detention...) When possible be specific @ -[No] Did you speak to anyone other than the patient for history (EMS, parent, family, police, friend...)? What history was obtained from this source @ -[No] Did you review nursing and triage notes (agree or disagree)? Why? @ -[I reviewed and agree with nursing and triage notes] Were old charts reviewed (outside hosp., previous admission, EMS record, old EKG, old radiological studies, urgent care reports/EKG's, detention records)? Report findings @ -[No old charts were reviewed] Differential Diagnosis (chest pain, altered mental status, abdominal pain women, abdominal pain men, vaginal bleeding, weakness, fever, dyspnea, syncope, headache, dizziness, GI bleed, back pain, seizure, CVA, palpatations, mental health, musculoskeletal)? @ -[MDM differential abdominal pain EKG interpreted by me (3pts min.). @ -[As above] X-rays interpreted by me (1pt min.). @ -[None done] CT interpreted by me (1pt min.). @ -[None done] U/S interpreted by me (1pt. min.). @ -[None done] What testing was considered but not performed or refused? (CT, X-rays, U/S, labs)? Why? @ -[None] What meds were considered but not given or refused? Why? @ -[None] Did you discuss the management of the patient with other professionals (professionals i.e. , PA, [employer], lab, RT, psych nurse, nursing home social worker, newspaper delivery counselor, teacher, general service officer, outpatient case manager)? Give summary @ -Case discussed with admitting physician and treatment recommendations Incorporated Was smoking cessation discussed for >3mins.? @ -[No] Was critical care preformed (if so, how long)? @ -[No] Were there social determinants of health that impacted care today? How? (Homelessness, low income, unemployed, alcoholism, drug addiction, transportation, low edu. Level, literacy, decrease access to med. care, custodial, rehab)? @ -[No] Was there de-escalation of care discussed even if they declined (Discuss DNR or withdrawal of care, Hospice)? DNR status @ -[No] What co-morbidities impacted this encounter? (DM, HTN, Smoking, COPD, CAD, Cancer, CVA, ARF, Chemo, Hep., AIDS, mental health diagnosis, sleep apnea, morbid obesity)? @ -[History of chronic renal disease on dialysis. Chronic liver disease with ascites Was patient admitted / discharged? Hospital course, mention meds given and route, prescriptions, significant lab abnormalities, going to OR and other pertinent info. @ -[As above Undiagnosed new problem with uncertain prognosis? @ -[No] Drug Therapy requiring intensive monitoring for toxicity (Heparin, Nitro, Insulin, Cardizem)? @ -[No] Were any procedures done? @ -[No] Diagnosis/symptom? @ -[Acute abdominal pain Ascites Acute, or Chronic, or Acute on Chronic? @ -[Acute Uncomplicated (without systemic symptoms) or Complicated (systemic symptoms)? @ -[Uncomplicated Side effects of treatment? @ -[No] Exacerbation, Progression, or Severe Exacerbation? @ -[No] Poses a threat to life or bodily function? How? (Chest pain, USA, NE, pneumonia, PE, COPD, DKA, ARF, appy, cholecystitis, CVA, Diverticulitis, Homicidal, Suicid al, threat to staff... and all critical care pts) @ -[No] All treatments are based on ideal body weight as in ED triage - Lab Data Result diagrams: 09/30/24 06:47 09/30/24 06:47 Lab Results 09/26/24 09/26/24 09/26/24 Range/Units 21:33 21:33 21:33 WBC 6.42 (4.50-10.00) 10*3/uL RBC 2.67 L (4.10-5.20) 10*6/uL Hgb 7.7 L (12.0-15.0) g/dL Hct 25.9 L (37.2-46.3) % MCV 97.0 D (80.0-97.0) fL MCH 28.8 (27.0-32.0) pg MCHC 29.7 L (32.0-37.0) g/dL RDW 27.9 H (11.5-14.5) % Plt Count 155 (140-440) 10*3/uL MPV 10.3 (9.5-12.2) fL Immature Gran % (Auto) 2.0 % Neutrophils % 44.2 % Lymphocytes % 29.6 % Monocytes % 18.8 % Eosinophils % 4.2 % Basophils % 1.2 % Immature Gran # 0.13 H (0.00-0.04) 10*3/uL Neutrophils # 2.83 (1.80-7.70) 10*3/uL Lymphocytes # 1.90 (0.90-5.00) 10*3/uL Monocytes # 1.21 H (0.20-1.00) 10*3/uL Eosinophils # 0.27 (0.04-0.35) 10*3/uL Basophils # 0.08 (0.00-0.10) 10*3/uL Manual Slide Review Performed Polychromasia Present Poikilocytosis (manual Present Anisocytosis (manual) Present Ovalocytes Present Fragmented RBCs Present PT 11.9 (10.0-12.5) sec INR 1.1 (<1.2) APTT 24.7 (22.0-30.0) sec Sodium 136 L (137-145) mmol/L Potassium 4.4 (3.5-5.1) mmol/L Chloride 105 (98-107) mmol/L Carbon Dioxide 23 (22-30) mmol/L Anion Gap 8 mmol/L BUN 25 H (7-17) mg/dL Creatinine 2.65 H (0.52-1.04) mg/dL Est GFR (CKD-EPI)AfAm 19 (>60 ml/min/1.73 sqM) Est GFR (CKD-EPI)NonAf 16 (>60 ml/min/1.73 sqM) Glucose 155 H (74-99) mg/dL Estimated Ave Glu mg/dL mg/dL Hemoglobin A1c (<=6.0) % Plasma Lactic Acid Jaspreet (0.7-2.0) mmol/L Calcium 8.4 (8.4-10.2) mg/dL Total Bilirubin 1.7 H (0.2-1.3) mg/dL AST 73 H (14-36) U/L ALT 19 (4-34) U/L Alkaline Phosphatase 98 (38-126) U/L Troponin I (0.000-0.034) ng/mL Total Protein 5.6 L (6.3-8.2) g/dL Albumin 2.6 L (3.5-5.0) g/dL Amylase 41 (30-110) U/L Lipase 199 (23-300) U/L 09/26/24 09/26/24 09/26/24 Range/Units 21:33 21:33 21:33 WBC (4.50-10.00) 10*3/uL RBC (4.10-5.20) 10*6/uL Hgb (12.0-15.0) g/dL Hct (37.2-46.3) % MCV (80.0-97.0) fL MCH (27.0-32.0) pg MCHC (32.0-37.0) g/dL RDW (11.5-14.5) % Plt Count (140-440) 10*3/uL MPV (9.5-12.2) fL Immature Gran % (Auto) % Neutrophils % % Lymphocytes % % Monocytes % % Eosinophils % % Basophils % % Immature Gran # (0.00-0.04) 10*3/uL Neutrophils # (1.80-7.70) 10*3/uL Lymphocytes # (0.90-5.00) 10*3/uL Monocytes # (0.20-1.00) 10*3/uL Eosinophils # (0.04-0.35) 10*3/uL Basophils # (0.00-0.10) 10*3/uL Manual Slide Review Polychromasia Poikilocytosis (manual Anisocytosis (manual) Ovalocytes Fragmented RBCs PT (10.0-12.5) sec INR (<1.2) APTT (22.0-30.0) sec Sodium (137-145) mmol/L Potassium (3.5-5.1) mmol/L Chloride (98-107) mmol/L Carbon Dioxide (22-30) mmol/L Anion Gap mmol/L BUN (7-17) mg/dL Creatinine (0.52-1.04) mg/dL Est GFR (CKD-EPI)AfAm (>60 ml/min/1.73 sqM) Est GFR (CKD-EPI)NonAf (>60 ml/min/1.73 sqM) Glucose (74-99) mg/dL Estimated Ave Glu mg/dL 88 mg/dL Hemoglobin A1c 4.7 (<=6.0) % Plasma Lactic Acid Jaspreet 1.9 (0.7-2.0) mmol/L Calcium (8.4-10.2) mg/dL Total Bilirubin (0.2-1.3) mg/dL AST (14-36) U/L ALT (4-34) U/L Alkaline Phosphatase (38-126) U/L Troponin I 0.026 (0.000-0.034) ng/mL Total Protein (6.3-8.2) g/dL Albumin (3.5-5.0) g/dL Amylase (30-110) U/L Lipase (23-300) U/L - EKG Data -: EKG Interpreted by Me EKG shows normal: sinus rhythm (With occasional premature supraventricular complex.), intervals (GA interval 204 ms, borderline prolonged. QRS duration 110 ms. QTc 423 ms.), QRS complexes (Low voltage QRS complexes. Left anterior fascicular block.) Interpretation: other (Old anteroseptal infarct) Disposition Clinical Impression: Ascites, Abdominal pain Disposition: ADMITTED IP TO THIS HOSP Condition: Fair Is patient prescribed a controlled substance at d/c from ED?: No
[2024-09-27] MEDS: SODIUM CHLORIDE 0.9% 1,000 ML IV SCH (07:11)
[2024-09-27] MEDS ORDERED: DEXTROSE 50% SYRINGE 50 ML IVP PRN ×2 (08:16)
--- NOTE | 2024-09-27 08:38 | P.HPIM ---
History of Present Illness H&P Date: 09/27/24 Chief Complaint: Recurrent ascites This is a history and physical on an 78-year-old white female with known history of diabetes atrial fibrillation element of dialysis and chronic abdominal ascites from history of liver disease. The patient states that she has intermittent paracentesis and has not had one recently and is now here for worsening pain. Interventional radiology has been consulted. No fever or chills but the patient has an underlying history of diabetes atrial fibrillation hypertensive heart disease. The patient is bedbound Review of Systems Constitutional: Denies chills, Denies fever Eyes: denies blurred vision, denies pain Ears, nose, mouth and throat: Denies headache, Denies sore throat Cardiovascular: Denies chest pain, Denies shortness of breath Past Medical History Past Medical History: Atrial Fibrillation, Coronary Artery Disease (CAD), CVA/TIA, Diabetes Mellitus, Dialysis, Deep Vein Thrombosis (DVT), Hypertension, Myocardial Infarction ([place]), Osteoarthritis (OA) Additional Past Medical History / Comment(s): hx tia, hx stroke behind left eye., lt eye macular , states hospitalized with Covid April 2019 with life support and stage 3 kidney failure., hx of fall with hip fx and surgery 01/13/22 went to [facility] for Rehab. DVT during ., varicose veins, states painful sore left heel., hx of t.b. as a child with scarring on lungs. dialysis since 04/2024, and friday Last Myocardial Infarction Date:: unknown date History of Any Multi-Drug Resistant Organisms: MRSA, VRE Date of last positivie culture/infection: 09/09/22 MRSA & VRE ([facility]-Scanned) MDRO Source:: Blood Culture Past Surgical History: Adenoidectomy, Hysterectomy, Orthopedic Surgery, Tonsillectomy, Tubal Ligation Additional Past Surgical History / Comment(s): pilonidal cyst twice as child, rt knee arthroscopy, krystyna cataracts, krystyna great toe sx, ORIF Left hip (01/13/22) Past Anesthesia/Blood Transfusion Reactions: Previous Problems w/ Anesthesia, Postoperative Nausea & Vomiting (PONV) Additional Past Anesthesia/Blood Transfusion Reaction / Comment(s): difficulty waking up after sx. clausterphobia. 1 blood transfusion(during child ) pt stated had palpitations after 2nd unit given Past Psychological History: Anxiety Smoking Status: Never smoker Past Alcohol Use History: None Reported Past Drug Use History: None Reported - Past Family History Mother Family Medical History: Cancer Additional Family Medical History / Comment(s): lung cancer Father Family Medical History: Coronary Artery Disease (CAD) Additional Family Medical History / Comment(s): heart disease, kidney disese Medications and Allergies Home Medications Medication Instructions Recorded Confirmed Type Sacubitril/Valsartan [Entresto 24 1 tab PO BID 01/12/22 08/21/24 History mg-26 mg Tablet] Omeprazole [PriLOSEC] 20 mg PO DAILY 03/05/22 08/21/24 History Ipratropium [place] [Atrovent Hfa] 2 puff INHALATION RT-QID 09/09/22 08/21/24 History ALPRAZolam [Xanax] 0.25 mg PO TID PRN 05/30/23 08/21/24 History Ammonium Lactate Lotion 1 applic TOPICAL BID PRN 05/30/23 08/21/24 History [Lac-Hydrin 12% Lotion] Aspirin 81 mg PO DAILY 05/30/23 08/21/24 History Atorvastatin [Lipitor] 20 mg PO DAILY 05/30/23 08/21/24 History Cholecalciferol [Vitamin D3 (25 25 mcg PO DAILY 05/30/23 08/21/24 History Mcg = 1000 Iu)] Escitalopram [Lexapro] 10 mg PO DAILY 05/30/23 08/21/24 History Furosemide [Lasix] 80 mg PO DAILY 05/30/23 08/21/24 History Insulin Glargine,Hum.rec.anlog 16 - 18 units SQ HS PRN 05/30/23 08/21/24 History [Toujeo Max Solostar] Insulin Glargine,Hum.rec.anlog 24 units SQ DAILY 05/30/23 08/21/24 History [Toujeo Max Solostar] Multivit-Min/FA/Lycopen/Lutein 1 tab PO DAILY 05/30/23 08/21/24 History [Centrum Silver Tablet] Albuterol Inhaler [Ventolin Hfa 2 puff INHALATION RT-QID PRN 01/09/24 08/21/24 History Inhaler] Ascorbic Acid [Vitamin C] 1,000 mg PO DAILY 01/09/24 08/21/24 History Vit C/E/Zn/Coppr/Lutein/Zeaxan 1 cap PO BID 01/09/24 08/21/24 History [Preservision Areds 2 Softgel] Magnesium Oxide [Mag-Ox] 400 mg PO DAILY #30 tab 01/16/24 08/21/24 Rx Nystatin 100,000Unit/gm Cream 1 applic TOPICAL BID #60 g 01/16/24 08/21/24 Rx [Mycostatin Cream] Sodium Bicarbonate Tab 650 mg PO BID #60 tab 01/16/24 08/21/24 Rx Periguard Ointment 1 applic TOPICAL DIRECTED 03/03/24 08/21/24 History Vits A and D/White Pet/Lanolin [A 1 applic TOPICAL DAILY PRN 03/03/24 08/21/24 History and D Ointment] traMADol HCL 50 mg PO TID PRN 05/20/24 08/21/24 History Apixaban [Eliquis] 2.5 mg PO BID #60 tab 07/14/24 08/21/24 Rx Metoprolol Succinate (ER) [Toprol 25 mg PO BID #60 tab 07/14/24 08/21/24 Rx XL] Midodrine [ProAmatine] 10 mg PO AC-TID #90 tab 07/14/24 08/21/24 Rx Ondansetron Odt [Zofran ODT] 4 mg PO Q8HR PRN #15 tab 07/29/24 08/21/24 Rx Calcium Carbonate [Tums] 1,000 mg PO Q4HR PRN tab 08/27/24 Rx Ciprofloxacin HCl [Cipro] 500 mg PO DAILY #20 tab 08/27/24 Rx Darbepoetin [place] [Aranesp] 60 mcg SQ Q7D 28 Days each 08/27/24 Rx HYDROcodone/APAP 5-325MG [[place] 1 each PO Q6H PRN #120 tab 08/27/24 Rx 5-325] Mag Hydrox/Al Hydrox/Simeth 15 ml PO Q6HR PRN ml 08/27/24 Rx [Maalox] Sulfamethox-Tmp 800-160Mg [Bactrim 1 each PO DAILY #20 tab 08/27/24 Rx DS 800-160 mg] Allergies Allergy/AdvReac Type Severity Reaction Status Date / Time shellfish derived [Shellfish] Allergy Severe vomiting Verified 09/26/24 21:17 -very ill adhesive Allergy skin red Verified 09/26/24 21:17 and murguia, tears skin aluminum Allergy skin turns Verified 09/26/24 21:17 black, passes out Antihistamines - Allergy heart Verified 09/26/24 21:17 Ethylenediamine palpitations codeine Allergy migraines Verified 09/26/24 21:17 epinephrine Allergy heart Verified 09/26/24 21:17 palpitations fluticasone [From Flonase] Allergy Unknown Verified 09/26/24 21:17 hydrogen peroxide Allergy murguia and Verified 09/26/24 21:17 causes infection latex Allergy passes out Verified 09/26/24 21:17 nickel Allergy turns skin Verified 09/26/24 21:17 black and passes out procaine HCl [From Novocain] Allergy passed Verified 09/26/24 21:17 out- due to epinephrine in it. thiopental sodium Allergy needed cpr Verified 09/26/24 21:17 [From Pentothal] resusitation insulin glargine AdvReac Intermediate Diarrhea, Verified 09/26/24 21:17 [From Lantus U-100 Insulin] Vomiting, upset stomach iron AdvReac Nausea Verified 09/26/24 21:17 methocarbamol [From Robaxin] AdvReac Hallucinati Verified 09/26/24 21:17 ons zinc oxide AdvReac Rash/Hives Verified 09/26/24 21:17 surgical felicita Allergy Severe had to be Uncoded 09/26/24 21:17 removed 2 days post-op petroleum products AdvReac passes out Uncoded 09/26/24 21:17 or does not feel well. (diesel, oils) Physical Exam Vitals: Vital Signs Temp Pulse Resp BP Pulse Ox 09/27/24 04:28 67 18 99/49 09/27/24 00:15 63 18 97/67 95 09/26/24 21:08 98.9 F 60 17 95/43 96 Intake and Output 09/26/24 09/27/24 09/27/24 22:59 06:59 14:59 Other: Weight 81.647 kg - Constitutional General appearance: no acute distress - EENT Eyes: EOMI - Neck Neck: no lymphadenopathy - Respiratory Respiratory: bilateral: diminished - Cardiovascular Rhythm: irregularly irregular Heart sounds: normal: S1, S2 Abnormal Heart Sounds: no S3 Gallop - Gastrointestinal General gastrointestinal: soft, no tenderness - Neurologic Neurologic: CNII-XII intact - Psychiatric Psychiatric: A&O x's 3 Results CBC & Chem 7: 09/26/24 21:33 07 21:33 Labs: Abnormal Lab Results - Last 24 Hours (Table) 09/26/24 09/26/24 Range/Units 21:33 21:33 RBC 2.67 L (4.10-5.20) 10*6/uL Hgb 7.7 L (12.0-15.0) g/dL Hct 25.9 L (37.2-46.3) % MCHC 29.7 L (32.0-37.0) g/dL RDW 27.9 H (11.5-14.5) % Immature Gran # 0.13 H (0.00-0.04) 10*3/uL Monocytes # 1.21 H (0.20-1.00) 10*3/uL Sodium 136 L (137-145) mmol/L BUN 25 H (7-17) mg/dL Creatinine 2.65 H (0.52-1.04) mg/dL Glucose 155 H (74-99) mg/dL Total Bilirubin 1.7 H (0.2-1.3) mg/dL AST 73 H (14-36) U/L Total Protein 5.6 L (6.3-8.2) g/dL Albumin 2.6 L (3.5-5.0) g/dL Assessment and Plan (1) Abdominal pain Current Visit: Yes Status: Acute Code(s): R10.9 - UNSPECIFIED ABDOMINAL PAIN SNOMED Code(s): 48210239 (2) Ascites Current Visit: Yes Status: Acute Code(s): R18.8 - OTHER ASCITES SNOMED Code(s): 220620969 (3) Atrial fibrillation Current Visit: No Status: Acute Code(s): I48.91 - UNSPECIFIED ATRIAL FIBRILLATION SNOMED Code(s): 05751568 (4) CKD (chronic kidney disease) Current Visit: No Status: Acute Code(s): N18.9 - CHRONIC KIDNEY DISEASE, UNSPECIFIED SNOMED Code(s): 330377351 (5) ESRD (end stage renal disease) on dialysis Current Visit: No Status: Acute Code(s): N18.6 - END STAGE RENAL DISEASE; Z99.2 - DEPENDENCE ON RENAL DIALYSIS SNOMED Code(s): 213780038 (6) Excoriation of buttock Current Visit: No Status: Acute Code(s): S30.810A - ABRASION OF LOWER BACK AND PELVIS, INITIAL ENCOUNTER SNOMED Code(s): 370856848 (7) Venous insufficiency Current Visit: No Status: Acute Code(s): I87.2 - VENOUS INSUFFICIENCY (CHRONIC) (PERIPHERAL) SNOMED Code(s): 80121031 Plan: Reconcile home medications. Check CBC and CMP in a.m. Consult interventional radiology for ascites. And nephrology for element of dialysis Prognosis is guarded secondary to her multiple comorbidities. Placed on sliding scale. Time with Patient: Greater than 30
[2024-09-27] MEDS ORDERED: MIDODRINE 5 MG TAB PO ONE (10:43)
[2024-09-27] MEDS: MIDODRINE 5 MG TAB PO STA (10:48)
--- NOTE | 2024-09-27 12:13 | P.NPCON ---
History of Present Illness - Reason for Consult Consult date: 09/27/24 chronic renal failure, end stage renal disease - History of Present Illness Ms. Bel Seth is a 78yo F with ESRD on HD . She was admitted today with abdominal discomfort due to ascites. She denies chest pain, SOB, n/v/d, dysuria, fevers, or chills. She is oliguric. Significant hypotension on admission 99/49. She has a history of hypotension. She is maintained on midodrine 10mg. Unknown baseline renal function. Creatinine on admission 2.65. Past Medical History Past Medical History: Atrial Fibrillation, Coronary Artery Disease (CAD), CVA/TIA, Diabetes Mellitus, Dialysis, Deep Vein Thrombosis (DVT), Hypertension, Myocardial Infarction ([place]), Osteoarthritis ([place]) Additional Past Medical History / Comment(s): hx tia, hx stroke behind left eye., lt eye macular , states hospitalized with Covid April 2019 with life support and stage 3 kidney failure., hx of fall with hip fx and surgery 01/13/22 went to [facility] for Rehab. DVT during ., varicose veins, states painful sore left heel., hx of t.b. as a child with scarring on lungs. dialysis since 04/2024, and friday Last Myocardial Infarction Date:: unknown date History of Any Multi-Drug Resistant Organisms: MRSA, VRE Date of last positivie culture/infection: 09/09/22 MRSA & VRE ([facility]-Scanned) MDRO Source:: Blood Culture Past Surgical History: Adenoidectomy, Hysterectomy, Orthopedic Surgery, Tonsillectomy, Tubal Ligation Additional Past Surgical History / Comment(s): pilonidal cyst twice as child, rt knee arthroscopy, krystyna cataracts, krystyna great toe sx, ORIF Left hip (01/13/22) Past Anesthesia/Blood Transfusion Reactions: Previous Problems w/ Anesthesia, Postoperative Nausea & Vomiting (PONV) Additional Past Anesthesia/Blood Transfusion Reaction / Comment(s): difficulty waking up after sx. clausterphobia. 1 blood transfusion(during child ) pt stated had palpitations after 2nd unit given Past Psychological History: Anxiety Smoking Status: Never smoker Past Alcohol Use History: None Reported Past Drug Use History: None Reported - Past Family History Mother Family Medical History: Cancer Additional Family Medical History / Comment(s): lung cancer Father Family Medical History: Coronary Artery Disease (CAD) Additional Family Medical History / Comment(s): heart disease, kidney disese Medications and Allergies Home Medications Medication Instructions Recorded Confirmed Type Sacubitril/Valsartan [Entresto 24 1 tab PO BID 01/12/22 09/27/24 History mg-26 mg Tablet] Omeprazole [PriLOSEC] 20 mg PO DAILY 03/05/22 09/27/24 History Ipratropium [place] [Atrovent Hfa] 2 puff INHALATION RT-QID 09/09/22 09/27/24 History ALPRAZolam [Xanax] 0.25 mg PO TID PRN 05/30/23 09/27/24 History Ammonium Lactate Lotion 1 applic TOPICAL BID PRN 05/30/23 09/27/24 History [Lac-Hydrin 12% Lotion] Aspirin 81 mg PO DAILY 05/30/23 09/27/24 History Atorvastatin [Lipitor] 20 mg PO DAILY 05/30/23 09/27/24 History Cholecalciferol [Vitamin D3 (25 25 mcg PO DAILY 05/30/23 09/27/24 History Mcg = 1000 Iu)] Escitalopram [Lexapro] 10 mg PO DAILY 05/30/23 09/27/24 History Insulin Glargine,Hum.rec.anlog 16 - 18 units SQ HS PRN 05/30/23 09/27/24 History [Toujeo Max Solostar] Insulin Glargine,Hum.rec.anlog 24 units SQ DAILY 05/30/23 09/27/24 History [Toujeo Max Solostar] Multivit-Min/FA/Lycopen/Lutein 1 tab PO DAILY 05/30/23 09/27/24 History [Centrum Silver Tablet] Albuterol Inhaler [Ventolin Hfa 2 puff INHALATION RT-QID PRN 01/09/24 09/27/24 History Inhaler] Ascorbic Acid [Vitamin C] 1,000 mg PO DAILY 01/09/24 09/27/24 History Vit C/E/Zn/Coppr/Lutein/Zeaxan 1 cap PO BID 01/09/24 09/27/24 History [Preservision Areds 2 Softgel] Magnesium Oxide [Mag-Ox] 400 mg PO DAILY #30 tab 01/16/24 09/27/24 Rx Nystatin 100,000Unit/gm Cream 1 applic TOPICAL BID #60 g 01/16/24 09/27/24 Rx [Mycostatin Cream] Sodium Bicarbonate Tab 650 mg PO BID #60 tab 01/16/24 09/27/24 Rx Periguard Ointment 1 applic TOPICAL DIRECTED 03/03/24 09/27/24 History Vits A and D/White Pet/Lanolin [A 1 applic TOPICAL DAILY PRN 03/03/24 09/27/24 History and D Ointment] traMADol HCL 50 mg PO TID PRN 05/20/24 09/27/24 History Apixaban [Eliquis] 2.5 mg PO BID #60 tab 07/14/24 09/27/24 Rx Metoprolol Succinate (ER) [Toprol 25 mg PO BID #60 tab 07/14/24 09/27/24 Rx XL] Ondansetron Odt [Zofran ODT] 4 mg PO Q8HR PRN #15 tab 07/29/24 09/27/24 Rx Calcium Carbonate [Tums] 1,000 mg PO Q4HR PRN tab 08/27/24 09/27/24 Rx Furosemide [Lasix] 80 mg PO DAILY 09/27/24 09/27/24 History HYDROcodone/APAP 5-325MG [[place] 1 tab PO Q6H PRN 09/27/24 09/27/24 History 5-325] Midodrine HCl 10 mg PO AC-TID 09/27/24 09/27/24 History Allergies Allergy/AdvReac Type Severity Reaction Status Date / Time shellfish derived [Shellfish] Allergy Severe vomiting Verified 09/27/24 10:50 -very ill adhesive Allergy skin red Verified 09/27/24 10:50 and murguia, tears skin aluminum Allergy skin turns Verified 09/27/24 10:50 black, passes out Antihistamines - Allergy heart Verified 09/27/24 10:50 Ethylenediamine palpitations codeine Allergy migraines Verified 09/27/24 10:50 epinephrine Allergy heart Verified 09/27/24 10:50 palpitations fluticasone [From Flonase] Allergy Unknown Verified 09/27/24 10:50 hydrogen peroxide Allergy murguia and Verified 09/27/24 10:50 causes infection latex Allergy passes out Verified 09/27/24 10:50 nickel Allergy turns skin Verified 09/27/24 10:50 black and passes out procaine HCl [From Novocain] Allergy passed Verified 09/27/24 10:50 out- due to epinephrine in it. thiopental sodium Allergy needed cpr Verified 09/27/24 10:50 [From Pentothal] resusitation insulin glargine AdvReac Intermediate Diarrhea, Verified 09/27/24 10:50 [From Lantus U-100 Insulin] Vomiting, upset stomach iron AdvReac Nausea Verified 09/27/24 10:50 methocarbamol [From Robaxin] AdvReac Hallucinati Verified 09/27/24 10:50 ons zinc oxide AdvReac Rash/Hives Verified 09/27/24 10:50 surgical felicita Allergy Severe had to be Uncoded 09/27/24 10:50 removed 2 days post-op petroleum products AdvReac passes out Uncoded 09/27/24 10:50 or does not feel well. (diesel, oils) Physical Exam Vitals: Vital Signs Temp Pulse Pulse Resp BP BP BP 09/27/24 09:53 57 L 16 88/50 09/27/24 09:25 60 12 72/42 09/27/24 09:23 56 L 12 80/47 09/27/24 09:00 54 L 14 103/54 09/27/24 04:28 67 18 99/49 09/27/24 00:15 63 18 97/67 09/26/24 21:08 98.9 F 60 17 95/43 Pulse Ox 09/27/24 09:53 98 09/27/24 09:25 99 09/27/24 09:23 99 09/27/24 09:00 97 09/27/24 04:28 09/27/24 00:15 95 09/26/24 21:08 96 Intake and Output 09/26/24 09/27/24 09/27/24 22:59 06:59 14:59 Other: Weight 81.647 kg Vital signs: hypotensive on admission 99/49 General: No acute distress. HEENT: Head exam is unremarkable. LUNGS: No audible rhonchi or wheezes. HEART: Irregular rate and rhythm. ABDOMEN: Nontender. EXTREMITITES: 3+ edema Results - Lab Results Most recent lab results Calcium 8.4 mg/dL (8.4-10.2) 09/26/24 21:33 09/28/24 05:23 09/28/24 05:23 Assessment and Plan Assessment: 1. End stage renal disease on hemodialysis on Friday, , and Friday schedule via right IJ permacath 2. Chronic liver disease with ascites needing paracentesis as outpt. Stabalizati on of BP before paracentesis, scheduled for today. 3. Hypotension on admission. Maintained on midodrine for chronic hypotension. 4. CKD mineral bone disorder. Calcium 8.4, check phosphorous. no phosphorous binders noted on home meds. 5. Anemia of chronic disease. Hgb 7.7. Hgb 7-8 g/dl over the last 3 months. Check iron profile. Previous iron saturation 8.8% on 08/22/24 Plan: Hemodialysis planned for tomorrow Midrodrine for hypotension Continue to monitor renal function and urine output Check iron profile Start aranesp q7d Check phosphorous Patient is seen and examined. Agree with resident's findings assessment and plan.
[2024-09-27] MEDS: MIDODRINE 5 MG TAB PO SCH (13:35)
[2024-09-27] MEDS: DARBEPOETIN ALFA 60 MCG/0.3 ML SYRINGE SQ SCH (14:23)
[2024-09-27 15:39] LABS: Glucose,Whole Blood 89 mg/dL (70-110)
[2024-09-27] MEDS ORDERED: HYDROcodone/APAP 5-325MG 1 EACH TAB PO PRN (18:22)
[2024-09-27] MEDS ORDERED: INSULIN GLARGINE (LANTUS) 100 UNIT/ML SYR SQ PRN (18:22)
[2024-09-27] MEDS ORDERED: AMMONIUM LACTATE 12% LOTION 225 GM BTL TOPICAL PRN (18:22)
[2024-09-27] MEDS ORDERED: ALBUTEROL NEBULIZED 2.5 MG/3 ML INHALATION PRN (18:22)
[2024-09-27] MEDS ORDERED: CALCIUM CARBONATE 500 MG CHEWABLE PO PRN (18:22)
[2024-09-27] MEDS ORDERED: ALPRAZolam 0.25 MG TAB PO PRN (18:22)
[2024-09-27] MEDS ORDERED: VITS A & D-WHITE PET-LANOLIN TUBE TOPICAL PRN (18:24)
[2024-09-27] MEDS ORDERED: ONDANSETRON ODT 4 MG TAB PO PRN (18:24)
[2024-09-27] MEDS ORDERED: PERIGUARD TOPICAL SCH (18:30)
[2024-09-27] MEDS: ESCITALOPRAM 10 MG TAB PO SCH (18:54)
[2024-09-27] MEDS: FUROSEMIDE 80 MG TAB PO SCH (19:32)
[2024-09-27 19:41] LABS: Glucose,Whole Blood 77 mg/dL (70-110)
[2024-09-27] MEDS: METOPROLOL SUCCINATE (ER) 25 MG TAB.ER.24H PO SCH (23:29)
[2024-09-27 23:34] LABS: Glucose,Whole Blood 118 mg/dL (70-110)
[2024-09-27 23:42] LABS: Iron 117.0 UG/DL (50-170); Total Iron Binding Capacity 277.0 UG/DL (228-460)
[2024-09-27] MEDS: SODIUM BICARBONATE TAB 650 MG TAB PO SCH (23:45)
[2024-09-27] MEDS: VIT A,C & E-LUTEIN-MINERALS 1 EACH TAB PO SCH (23:45)
[2024-09-27] MEDS: SACUBITRIL/VALSARTAN 24 MG-26 MG TABLET PO SCH (23:45)
[2024-09-27] MEDS: APIXABAN 2.5 MG TABLET PO SCH (23:45)
[2024-09-28] MEDS: NYSTATIN 100,000UNIT/GM CREAM 30 GM TUBE TOPICAL SCH (02:29)
[2024-09-28 03:02] LABS: Glucose,Whole Blood 121 mg/dL (70-110)
[2024-09-28] MEDS: PANTOPRAZOLE 40 MG TABLET PO SCH (05:53)
[2024-09-28] MEDS: traMADol 50 MG TAB PO PRN (05:54)
[2024-09-28 07:11] LABS: Glucose,Whole Blood 102 mg/dL (70-110)
[2024-09-28] MEDS ORDERED: MIDODRINE HCL 10 MG PO SCH (07:30)
[2024-09-28] MEDS: INSULIN GLARGINE (LANTUS) 100 UNIT/ML SYR SQ SCH (08:21)
[2024-09-28 08:37] LABS: HCT 25.8 % (37.2-46.3); HGB 7.4 g/dL (12.0-15.0); MCH 28.9 pg (27.0-32.0); MCHC 28.7 g/dL (32.0-37.0); MCV 100.8 FL (80.0-97.0); NRBC Per 100 WBC 0.02 X 10*3/uL (0.00-0.01); Platelet Count 167 X 10*3/uL (140-440); RBC 2.56 X 10*6/uL (4.10-5.20); RDW 28.4 % (11.5-14.5); WBC 7.08 X 10*3/uL (4.50-10.00)
[2024-09-28] MEDS: TIOTROPIUM 2.5 MCG INHALER INHALATION SCH (08:45)
[2024-09-28 08:46] LABS: ALT 17 U/L (8-44); AST 57 U/L (13-35); Albumin 2.4 g/dL (3.8-4.9); Albumin/Globulin Ratio 1.04 Ratio (1.60-3.17); Alkaline Phosphatase 88 U/L (41-126); Anion Gap 9.70 mmol/L (4.00-12.00); BUN/Creat Ratio 7.68 Ratio (12.00-20.00); Blood Urea Nitrogen 29.2 mg/dL (9.0-27.0); Calcium 7.9 mg/dL (8.7-10.3); Carbon Dioxide 22.3 mmol/L (21.6-31.8); Chloride 103 mmol/L (96-109); Globulin 2.3 g/dL (1.6-3.3); Glucose 101 mg/dL (70-110); Potassium 4.3 mmol/L (3.5-5.5); Sodium 135 mmol/L (135-145); Total Protein 4.7 g/dL (6.2-8.2)
--- NOTE | 2024-09-28 08:51 | P.PN ---
Subjective Progress Note Date: 09/28/24 Principal diagnosis: Ascites recurrent with history of end-stage renal disease on dialysis. 78-year-old white female with known history of diabetes with end-stage renal disease element of atrial fibrillation. The patient is admitted for recurrent ascites. Interventional radiology has been consulted for appropriate paracentesis. The patient looks comfortable today Objective - Vital Signs Vital signs: Vital Signs Temp 98.4 F 09/28/24 07:01 Pulse 55 L 09/28/24 07:01 Resp 18 09/28/24 07:01 BP 87/41 09/28/24 07:01 Pulse Ox 97 09/28/24 07:01 FiO2 Intake & Output 09/27/24 09/28/24 09/28/24 18:59 06:59 18:59 Weight 81.647 kg Other: # Voids 0 # Bowel Movements 1 - Constitutional General appearance: Present: average body habitus - EENT Eyes: Absent: abnormal pupil - Neck Neck: Absent: lymphadenopathy - Respiratory Respiratory: bilateral: diminished - Cardiovascular Rhythm: irregularly irregular Heart sounds: normal: S1, S2 Abnormal Heart Sounds: Absent: S3 Gallop - Gastrointestinal General gastrointestinal: Present: soft - Integumentary Integumentary: Absent: cellulitis - Musculoskeletal Musculoskeletal: Absent: gait normal - Labs CBC & Chem 7: 09/28/24 05:23 09/28/24 05:23 Labs: Abnormal Lab Results - Last 24 Hours (Table) 09/27/24 09/27/24 09/28/24 Range/Units 12:41 23:32 03:01 RBC (4.10-5.20) X 10*6/uL Hgb (12.0-15.0) g/dL Hct (37.2-46.3) % MCV (80.0-97.0) [place] MCHC (32.0-37.0) g/dL RDW (11.5-14.5) % NRBC/100 WBC Diff (0.00-0.01) X 10*3/uL BUN (9.0-27.0) mg/dL Creatinine (0.6-1.5) mg/dL Est GFR (CKD-EPI) (>=60) BUN/Creatinine Ratio (12.00-20.00) Ratio POC Glucose (mg/dL) 118 H 121 H (70-110) mg/dL Calcium (8.7-10.3) mg/dL Phosphorus 1.8 L (2.5-4.5) mg/dL Transferrin 198.0 L (204.0-354.0) mg/dL AST (13-35) U/L Total Protein (6.2-8.2) g/dL Albumin (3.8-4.9) g/dL Albumin/Globulin Ratio (1.60-3.17) Ratio 09/28/24 09/28/24 Range/Units 05:23 05:23 RBC 2.56 L (4.10-5.20) X 10*6/uL Hgb 7.4 L (12.0-15.0) g/dL Hct 25.8 L (37.2-46.3) % MCV 100.8 H (80.0-97.0) [place] MCHC 28.7 L (32.0-37.0) g/dL RDW 28.4 H (11.5-14.5) % NRBC/100 WBC Diff 0.02 H (0.00-0.01) X 10*3/uL BUN 29.2 H (9.0-27.0) mg/dL Creatinine 3.8 H (0.6-1.5) mg/dL Est GFR (CKD-EPI) 11 L (>=60) BUN/Creatinine Ratio 7.68 L (12.00-20.00) Ratio POC Glucose (mg/dL) (70-110) mg/dL Calcium 7.9 L (8.7-10.3) mg/dL Phosphorus (2.5-4.5) mg/dL Transferrin (204.0-354.0) mg/dL AST 57 H (13-35) U/L Total Protein 4.7 L (6.2-8.2) g/dL Albumin 2.4 L (3.8-4.9) g/dL Albumin/Globulin Ratio 1.04 L (1.60-3.17) Ratio Assessment and Plan (1) Abdominal pain Current Visit: Yes Status: Acute Code(s): R10.9 - UNSPECIFIED ABDOMINAL PAIN SNOMED Code(s): 91577275 (2) Ascites Current Visit: Yes Status: Acute Code(s): R18.8 - OTHER ASCITES SNOMED Code(s): 826178728 (3) Atrial fibrillation Current Visit: No Status: Acute Code(s): I48.91 - UNSPECIFIED ATRIAL FIBRILLATION SNOMED Code(s): 49571119 (4) CKD (chronic kidney disease) Current Visit: No Status: Acute Code(s): N18.9 - CHRONIC KIDNEY DISEASE, UNS PECIFIED SNOMED Code(s): 024716835 (5) ESRD (end stage renal disease) on dialysis Current Visit: No Status: Acute Code(s): N18.6 - END STAGE RENAL DISEASE; Z99.2 - DEPENDENCE ON RENAL DIALYSIS SNOMED Code(s): 662612716 (6) Excoriation of buttock Current Visit: No Status: Acute Code(s): S30.810A - ABRASION OF LOWER BACK AND PELVIS, INITIAL ENCOUNTER SNOMED Code(s): 418449090 (7) Venous insufficiency Current Visit: No Status: Acute Code(s): I87.2 - VENOUS INSUFFICIENCY (CHRONIC) (PERIPHERAL) SNOMED Code(s): 63518852 Plan: Check CBC and CMP in a.m. Consult interventional radiology for ascites. And nephrology for element of dialysis Prognosis is guarded secondary to her multiple comorbidities. Placed on sliding scale. I anticipate discharge in the a.m. if everything is stable for her.
[2024-09-28 09:31] LABS: Anisocytosis (M) 2+ (None Seen); Hypochromasia (M) 2+ (None Seen); Polychromasia 2+ (None Seen)
[2024-09-28] MEDS ORDERED: MIDODRINE 5 MG TAB PO PRN (10:02)
[2024-09-28] MEDS: MIDODRINE 5 MG TAB PO STA ×2 (10:06→22:22)
[2024-09-28 11:29] LABS: Glucose,Whole Blood 123 mg/dL (70-110)
[2024-09-28] MEDS: MAGNESIUM OXIDE 400 MG TAB PO SCH (12:32)
[2024-09-28] MEDS: CHOLECALCIFEROL 25 MCG (1000 IU) TABLET PO SCH (12:32)
[2024-09-28] MEDS: ASCORBIC ACID 500 MG TAB PO SCH (12:32)
[2024-09-28] MEDS: MULTIVITAMINS, THERA 1 EACH TAB PO SCH (12:33)
[2024-09-28] MEDS: ASPIRIN 81 MG PO SCH (12:33)
[2024-09-28] MEDS: ATORVASTATIN 20 MG TAB PO SCH (12:33)
[2024-09-28] MEDS: NYSTATIN 100,000 UNIT/ML SUSP 500,000 UNIT/5 ML CUP PO SCH (12:34)
--- NOTE | 2024-09-28 12:58 | P.PN ---
Subjective Progress Note Date: 09/28/24 Patient consulted for ESRD scheduled for . She received HD this morning. She feels more comfortable today, but still has discomfort in the abdomen as she waits for paracentesis. She denies chest pain, SOB, nausea, chills, or fever. Her leg swelling continues to be bothersome. She continues to be hypotensive at 87/41 this morning. She is on midodrine TID. Objective - Vital Signs Vital signs: Vital Signs Temp 98.4 F 09/28/24 07:01 Pulse 55 L 09/28/24 07:01 Resp 18 09/28/24 07:01 BP 87/41 09/28/24 07:01 Pulse Ox 97 09/28/24 07:01 FiO2 Intake & Output 09/27/24 09/28/24 09/28/24 18:59 06:59 18:59 Weight 81.647 kg Other: # Voids 0 # Bowel Movements 1 - Labs CBC & Chem 7: 09/30/24 06:47 09/30/24 06:47 Labs: Abnormal Lab Results - Last 24 Hours (Table) 09/27/24 09/27/24 09/28/24 Range/Units 12:41 23:32 03:01 RBC (4.10-5.20) X 10*6/uL Hgb (12.0-15.0) g/dL Hct (37.2-46.3) % MCV (80.0-97.0) FL MCHC (32.0-37.0) g/dL RDW (11.5-14.5) % NRBC/100 WBC Diff (0.00-0.01) X 10*3/uL Polychromasia (None Seen) Hypochromasia (manual) (None Seen) Anisocytosis (manual) (None Seen) BUN (9.0-27.0) mg/dL Creatinine (0.6-1.5) mg/dL Est GFR (CKD-EPI) (>=60) BUN/Creatinine Ratio (12.00-20.00) Ratio POC Glucose (mg/dL) 118 H 121 H (70-110) mg/dL Calcium (8.7-10.3) mg/dL Phosphorus 1.8 L (2.5-4.5) mg/dL Transferrin 198.0 L (204.0-354.0) mg/dL AST (13-35) U/L Total Protein (6.2-8.2) g/dL Albumin (3.8-4.9) g/dL Albumin/Globulin Ratio (1.60-3.17) Ratio 09/28/24 09/28/24 Range/Units 05:23 05:23 RBC 2.56 L (4.10-5.20) X 10*6/uL Hgb 7.4 L (12.0-15.0) g/dL Hct 25.8 L (37.2-46.3) % MCV 100.8 H (80.0-97.0) FL MCHC 28.7 L (32.0-37.0) g/dL RDW 28.4 H (11.5-14.5) % NRBC/100 WBC Diff 0.02 H (0.00-0.01) X 10*3/uL Polychromasia 2+ A (None Seen) Hypochromasia (manual) 2+ A (None Seen) Anisocytosis (manual) 2+ A (None Seen) BUN 29.2 H (9.0-27.0) mg/dL Creatinine 3.8 H (0.6-1.5) mg/dL Est GFR (CKD-EPI) 11 L (>=60) BUN/Creatinine Ratio 7.68 L (12.00-20.00) Ratio POC Glucose (mg/dL) (70-110) mg/dL Calcium 7.9 L (8.7-10.3) mg/dL Phosphorus (2.5-4.5) mg/dL Transferrin (204.0-354.0) mg/dL AST 57 H (13-35) U/L Total Protein 4.7 L (6.2-8.2) g/dL Albumin 2.4 L (3.8-4.9) g/dL Albumin/Globulin Ratio 1.04 L (1.60-3.17) Ratio Assessment and Plan Assessment: 1. End stage renal disease on hemodialysis on Friday, , and Friday schedule via right IJ permacath 2. Chronic liver disease with ascites needing paracentesis as outpt. Stabalization of BP before paracentesis, scheduled for today at 2pm. 3. Hypotension on admission. Maintained on midodrine for chronic hypotension. 4. CKD mineral bone disorder. Calcium 8.4. Phosphorous 1.8. No phosphorous bi nders noted on home meds. 5. Anemia of chronic disease. Hgb 7.7. Hgb 7-8 g/dl over the last 3 months. Previous iron saturation 8.8% on 08/22/24. Iron 117. Iron saturation 42.24%. Plan: Hemodialysis this morning, possible additional HD session tomorrow. Continue midrodrine for hypotension Continue to monitor renal function and urine output Start aranesp q7d Walter Green MD Internal Medicine PGY1 Nephrology service Agree with resident's findings, assessment and plan.
[2024-09-28 16:24] LABS: Glucose,Whole Blood 161 mg/dL (70-110)
[2024-09-28 19:06] LABS: Glucose,Whole Blood 216 mg/dL (70-110)
[2024-09-28 21:32] LABS: Glucose,Whole Blood 203 mg/dL (70-110)
[2024-09-28 23:12] LABS: Glucose,Whole Blood 175 mg/dL (70-110)
[2024-09-29 03:12] LABS: Glucose,Whole Blood 176 mg/dL (70-110)
[2024-09-29 07:11] LABS: Glucose,Whole Blood 173 mg/dL (70-110)
[2024-09-29 08:03] LABS: HCT 25.6 % (37.2-46.3); HGB 7.3 g/dL (12.0-15.0); MCH 29.1 pg (27.0-32.0); MCHC 28.5 g/dL (32.0-37.0); MCV 102.0 FL (80.0-97.0); NRBC Per 100 WBC 0 X 10*3/uL (0.00-0.01); Platelet Count 145 X 10*3/uL (140-440); RBC 2.51 X 10*6/uL (4.10-5.20); RDW 29.2 % (11.5-14.5); WBC 6.05 X 10*3/uL (4.50-10.00)
[2024-09-29] MEDS: MIDODRINE 5 MG TAB PO ONE (08:05)
[2024-09-29 08:49] LABS: ALT 17 U/L (8-44); AST 56 U/L (13-35); Albumin 2.4 g/dL (3.8-4.9); Albumin/Globulin Ratio 1.09 Ratio (1.60-3.17); Alkaline Phosphatase 90 U/L (41-126); Anion Gap 9.00 mmol/L (4.00-12.00); BUN/Creat Ratio 6.77 Ratio (12.00-20.00); Blood Urea Nitrogen 20.3 mg/dL (9.0-27.0); Calcium 7.5 mg/dL (8.7-10.3); Carbon Dioxide 25.0 mmol/L (21.6-31.8); Chloride 101 mmol/L (96-109); Globulin 2.2 g/dL (1.6-3.3); Glucose 163 mg/dL (70-110); Potassium 4.2 mmol/L (3.5-5.5); Sodium 135 mmol/L (135-145); Total Protein 4.6 g/dL (6.2-8.2)
--- NOTE | 2024-09-29 08:49 | P.PN ---
Subjective Principal diagnosis: Ascites recurrent with history of end-stage renal disease on dialysis. 78-year-old white female with known history of diabetes with end-stage renal disease element of atrial fibrillation. The patient is admitted for recurrent ascites. Interventional radiology has been consulted for appropriate paracentesis. The patient looks comfortable today The patient had tachycardia with hypotension yesterday. Medication adjustments are noted. Appreciate nephrology assistance. I explained to the patient why this could be happening. She does completely understand. Objective - Vital Signs Vital signs: Vital Signs Temp 98.6 F 09/29/24 07:04 Pulse 62 09/29/24 07:04 Resp 18 09/29/24 07:04 BP 99/60 09/29/24 07:04 Pulse Ox 97 09/29/24 07:04 FiO2 Intake & Output 09/28/24 09/29/24 09/29/24 18:59 06:59 18:59 Intake Total 700 Output Total 700 Balance 0 Intake: Hemodialysis 700 Output: Hemodialysis 700 Hemodialysis Net Amount 0 Other: # Voids 1 # Bowel Movements 1 1 - Constitutional General appearance: Present: cooperative. Absent: no acute distress - Neck Neck: Absent: lymphadenopathy - Respiratory Respiratory: bilateral: diminished - Cardiovascular Rhythm: irregularly irregular Heart sounds: normal: S1, S2 Abnormal Heart Sounds: Absent: S3 Gallop - Gastrointestinal General gastrointestinal: Present: distended, soft - Psychiatric Psychiatric: Present: A&O x's 3 - Labs CBC & Chem 7: 09/29/24 04:28 09/28/24 05:23 Labs: Abnormal Lab Results - Last 24 Hours (Table) 09/28/24 09/28/24 09/28/24 Range/Units 05:23 11:27 16:22 RBC (4.10-5.20) X 10*6/uL Hgb (12.0-15.0) g/dL Hct (37.2-46.3) % MCV (80.0-97.0) FL MCHC (32.0-37.0) g/dL RDW (11.5-14.5) % Polychromasia 2+ A (None Seen) Hypochromasia (manual) 2+ A (None Seen) Anisocytosis (manual) 2+ A (None Seen) POC Glucose (mg/dL) 123 H 161 H (70-110) mg/dL 07/11/1509/28/24 09/28/24 Range/Units 19:05 21:31 23:11 RBC (4.10-5.20) X 10*6/uL Hgb (12.0-15.0) g/dL Hct (37.2-46.3) % MCV (80.0-97.0) FL MCHC (32.0-37.0) g/dL RDW (11.5-14.5) % Polychromasia (None Seen) Hypochromasia (manual) (None Seen) Anisocytosis (manual) (None Seen) POC Glucose (mg/dL) 216 H 203 H 175 H (70-110) mg/dL 09/29/24 09/29/24 09/29/24 Range/Units 03:11 04:28 07:09 RBC 2.51 L (4.10-5.20) X 10*6/uL Hgb 7.3 L (12.0-15.0) g/dL Hct 25.6 L (37.2-46.3) % MCV 102.0 H (80.0-97.0) FL MCHC 28.5 L (32.0-37.0) g/dL RDW 29.2 H (11.5-14.5) % Polychromasia (None Seen) Hypochromasia (manual) (None Seen) Anisocytosis (manual) (None Seen) POC Glucose (mg/dL) 176 H 173 H (70-110) mg/dL Assessment and Plan (1) Abdominal pain Current Visit: Yes Status: Acute Code(s): R10.9 - UNSPECIFIED ABDOMINAL PAIN SNOMED Code(s): 92332507 (2) Ascites Current Visit: Yes Status: Acute Code(s): R18.8 - OTHER ASCITES SNOMED Code(s): 141795028 (3) Atrial fibrillation Current Visit: No Status: Acute Code(s): I48.91 - UNSPECIFIED ATRIAL FIBRILLATION SNOMED Code(s): 00749811 (4) CKD (chronic kidney disease) Current Visit: No Status: Acute Code(s): N18.9 - CHRONIC KIDNEY DISEASE, UNSPECIFIED SNOMED Code(s): 419117395 (5) ESRD (end stage renal disease) on dialysis Current Visit: No Status: Acute Code(s): N18.6 - END STAGE RENAL DISEASE; Z99.2 - DEPENDENCE ON RENAL DIALYSIS SNOMED Code(s): 867912278 (6) Excoriation of buttock Current Visit: No Status: Acute Code(s): S30.810A - ABRASION OF LOWER BACK AND PELVIS, INITIAL ENCOUNTER SNOMED Code(s): 318771685 (7) Venous insufficiency Current Visit: No Status: Acute Code(s): I87.2 - VENOUS INSUFFICIENCY (CHRONIC) (PERIPHERAL) SNOMED Code(s): 68916855 Plan: Check CBC and CMP in a.m. Consult interventional radiology for ascites. And nephrology for element of dialysis Prognosis is guarded secondary to her multiple comorbidities. Placed on sliding scale. I anticipate discharge in the a.m. if everything is stable for her. Hypotension with tachycardia. Midodrine given. I suspect I will want to have her have dialysis in the a.m. and watch her blood pressure after with her vitals. Hopefully we can get her discharged home in the next 24-48 hours. Time with Patient: Greater than 30
[2024-09-29] MEDS: ALBUMIN HUMAN 25% 50 ML in EMPTY BAG 1 BAG IVPB SCH (09:50)
[2024-09-29] MEDS: TOUJEO 300 UNIT/ML SQ SCH (11:05)
[2024-09-29 11:36] LABS: Glucose,Whole Blood 156 mg/dL (70-110)
--- NOTE | 2024-09-29 12:55 | US ---
EXAMINATION TYPE: US paracentesis abd w/image DATE OF EXAM: September 29 2024 COMPARISON: August 24 2024 prior paracentesis. CLINICAL INDICATION:Female, 78 years old with history of see IR consult for ordering information; , a charles ATTENDING: Dr. Gay PROCEDURE: Informed consent was obtained. The risks of the procedure were extensively explained incl uding risk of damage to surrounding bowel with perforation and need for additional procedures. Proced ure was performed in the ultrasound suite. Ultrasound imaging of the abdomen demonstrates ascitic fluid. An appropriate access site was localize d to the right lateral abdomen. Timeout was taken per protocol. The skin was prepped and draped in th e usual sterile fashion and then locally anesthetized with 1% lidocaine. The peritoneal cavity was t hen accessed via a 5-Tunisian one-step needle/catheter. Approximately 4875 mL of clear straw-colored f luid was obtained. Fluid obtained for diagnostic and therapeutic purposes as requested. Patient tolerated procedure well without immediate complication. Hemostasis at the procedural site w as obtained with a sterile bandage placed. The patient was monitored in the holding area following th e procedure and was subsequently returned to floor in stable condition. IMPRESSION: Ultrasound guided paracentesis, with approximately 4875 mL of clear straw-colored fluid drained for d iagnostic and therapeutic purposes. No immediate complications were evident. [facility], , 09/29/2024 12:53 PM
[2024-09-29] MEDS: MIDODRINE 5 MG TAB PO PRN (14:58)
[2024-09-29 17:32] LABS: Glucose,Whole Blood 157 mg/dL (70-110)
--- NOTE | 2024-09-29 17:38 | P.PN ---
Subjective Progress Note Date: 09/29/24 Consulted for ESRD on HD scheduled for t// via right IJ permacath. She feels symptomatic improvement s/p paracentesis this morning with 4857ml drained. She denies chest pain, SOB, n/v/d, and abdominal pain. She also has decreased burning and pruritus in her lower extremities. She received an additional HD session today with 2L ultrafiltered. Her BP is improving on midodrine. Objective - Vital Signs Vital signs: Vital Signs Temp 98.2 F 09/29/24 16:46 Pulse 56 L 09/29/24 16:46 Resp 17 09/29/24 16:46 BP 109/44 09/29/24 16:46 Pulse Ox 97 09/29/24 14:50 FiO2 Intake & Output 09/28/24 09/29/24 09/29/24 18:59 06:59 18:59 Intake Total 700 620 Output Total 700 4400 Balance 0 -3780 Intake: Oral 220 Hemodialysis 700 400 Output: Hemodialysis 700 2400 Hemodialysis Net Amount 0 2000 Other: # Voids 1 1 # Bowel Movements 1 1 - Exam Patient is awake, alert oriented x 3 No acute distress Examination of the heart S1 and S2 Examination of the lungs shows bilateral breath sounds are heard Abdomen is soft nontender Examination of lower extremity shows 3+ edema 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 - Labs CBC & Chem 7: 09/30/24 06:47 09/30/24 06:47 Labs: Abnormal Lab Results - Last 24 Hours (Table) 09/28/24 09/28/24 09/28/24 Range/Units 19:05 21:31 23:11 RBC (4.10-5.20) X 10*6/uL Hgb (12.0-15.0) g/dL Hct (37.2-46.3) % MCV (80.0-97.0) FL MCHC (32.0-37.0) g/dL RDW (11.5-14.5) % Creatinine (0.6-1.5) mg/dL Est GFR (CKD-EPI) (>=60) BUN/Creatinine Ratio (12.00-20.00) Ratio Glucose (70-110) mg/dL POC Glucose (mg/dL) 216 H 203 H 175 H (70-110) mg/dL Calcium (8.7-10.3) mg/dL AST (13-35) U/L Total Protein (6.2-8.2) g/dL Albumin (3.8-4.9) g/dL Albumin/Globulin Ratio (1.60-3.17) Ratio 09/29/24 09/29/24 09/29/24 Range/Units 03:11 04:28 04:28 RBC 2.51 L (4.10-5.20) X 10*6/uL Hgb 7.3 L (12.0-15.0) g/dL Hct 25.6 L (37.2-46.3) % MCV 102.0 H (80.0-97.0) FL MCHC 28.5 L (32.0-37.0) g/dL RDW 29.2 H (11.5-14.5) % Creatinine 3.0 H (0.6-1.5) mg/dL Est GFR (CKD-EPI) 15 L (>=60) BUN/Creatinine Ratio 6.77 L (12.00-20.00) Ratio Glucose 163 H (70-110) mg/dL POC Glucose (mg/dL) 176 H (70-110) mg/dL Calcium 7.5 L (8.7-10.3) mg/dL AST 56 H (13-35) U/L Total Protein 4.6 L (6.2-8.2) g/dL Albumin 2.4 L (3.8-4.9) g/dL Albumin/Globulin Ratio 1.09 L (1.60-3.17) Ratio 09/29/24 09/29/24 Range/Units 07:09 11:32 RBC (4.10-5.20) X 10*6/uL Hgb (12.0-15.0) g/dL Hct (37.2-46.3) % MCV (80.0-97.0) FL MCHC (32.0-37.0) g/dL RDW (11.5-14.5) % Creatinine (0.6-1.5) mg/dL Est GFR (CKD-EPI) (>=60) BUN/Creatinine Ratio (12.00-20.00) Ratio Glucose (70-110) mg/dL POC Glucose (mg/dL) 173 H 156 H (70-110) mg/dL Calcium (8.7-10.3) mg/dL AST (13-35) U/L Total Protein (6.2-8.2) g/dL Albumin (3.8-4.9) g/dL Albumin/Globulin Ratio (1.60-3.17) Ratio Assessment and Plan Assessment: 1. End stage renal disease on hemodialysis on Friday, , and Friday schedule via right IJ permacath 2. Chronic liver disease with ascites needing paracentesis as outpt. Stabalization of BP before paracentesis. Paracentesis completed. 3. Hypotension on admission. Maintained on midodrine for chronic hypotension. 4. CKD mineral bone disorder. Calcium 8.4. Phosphorous 1.8. No phosphorous binders noted on home meds. 5. Anemia of chronic disease. Hgb 7.7. Hgb 7-8 g/dl over the last 3 months. Previous iron saturation 8.8% on 08/22/24. Iron 117. Iron saturation 42.24%. Plan: Additional session of HD this morning. Continue midrodrine for hypotension Continue to monitor renal function and urine output Start aranesp q7d Walter Green MD Internal Medicine PGY1 Nephrology service Patient is seen and examined. Agree with resident's findings assessment and pl an.
[2024-09-29 20:19] LABS: Glucose,Whole Blood 212 mg/dL (70-110)
[2024-09-29 20:20] LABS: Appearance,BF Clear (Clear)
[2024-09-29] MEDS: TOUJEO 300 UNIT/ML SQ PRN (22:05)
[2024-09-30 06:18] LABS: Glucose,Whole Blood 170 mg/dL (70-110)
[2024-09-30 08:15] LABS: Glucose,Whole Blood 172 mg/dL (70-110)
--- NOTE | 2024-09-30 08:41 | P.DS ---
Providers Date of admission: 09/27/24 06:34 Attending physician: Luis Shirley Consults: 09/27/24 08:18 Consult Physician Routine Consulting Provider: Roc Coyne Consult Reason/Comments: dialysis patient Do you want consulting provider notified?: Yes Primary care physician: Luis Shirley - Discharge Diagnosis(es) (1) Cirrhosis of liver with ascites Current Visit: No Status: Acute (2) ESRD (end stage renal disease) on dialysis Current Visit: No Status: Acute (3) Atrial fibrillation Current Visit: No Status: Acute (4) CAD (coronary artery disease) Current Visit: No Status: Acute (5) Chronic wound Current Visit: No Status: Acute (6) Diabetes Current Visit: No Status: Acute (7) Hypotension Current Visit: No Status: Acute Hospital Course: This is an 78-year-old female who was admitted with complaints of abdominal pain and increasing fluid from ascites. Patient does have a history of end-stage renal disease and is maintained on hemodialysis. Patient underwent paracentesis yesterday. She has had intermittent low blood pressure readings during this stay which have now stabilized. Patient scheduled to have dialysis today, if she is cleared by consultants and her blood pressure continues to remain stable, she may be discharged today. Patient seen and evaluated by nurse practitioner, physician in agreement with plan. Patient Condition at Discharge: Fair Plan - Discharge Summary Discharge Rx Participant: No New Discharge Prescriptions: Continue Ipratropium [place] [Atrovent Hfa] 2 puff INHALATION RT-QID ALPRAZolam [Xanax] 0.25 mg PO TID PRN PRN Reason: Anxiety Aspirin 81 mg PO DAILY Atorvastatin [Lipitor] 20 mg PO DAILY Escitalopram [Lexapro] 10 mg PO DAILY Insulin Glargine,Hum.rec.anlog [Toujeo Max Solostar] 16 - 18 units SQ HS PRN PRN Reason: BLOOD SUGAR >200 Insulin Glargine,Hum.rec.anlog [Toujeo Max Solostar] 24 units SQ DAILY Albuterol Inhaler [Ventolin Hfa Inhaler] 2 puff INHALATION RT-QID PRN PRN Reason: Shortness Of Breath Sodium Bicarbonate Tab 650 mg PO BID #60 tab Periguard Ointment 1 applic TOPICAL DIRECTED Vits A and D/White Pet/Lanolin [A and D Ointment] 1 applic TOPICAL DAILY PRN PRN Reason: itching back traMADol HCL 50 mg PO TID PRN PRN Reason: Pain Ondansetron Odt [Zofran ODT] 4 mg PO Q8HR PRN #15 tab PRN Reason: Nausea And Vomiting Midodrine HCl 10 mg PO AC-TID Furosemide [Lasix] 80 mg PO DAILY Sacubitril/Valsartan [Entresto 24 mg-26 mg Tablet] 1 tab PO BID Omeprazole [PriLOSEC] 20 mg PO DAILY Ammonium Lactate Lotion [Lac-Hydrin 12% Lotion] 1 applic TOPICAL BID PRN PRN Reason: DRY ITCHY SKIN Cholecalciferol [Vitamin D3 (25 Mcg = 1000 Iu)] 25 mcg PO DAILY Multivit-Min/FA/Lycopen/Lutein [Centrum Silver Tablet] 1 tab PO DAILY Vit C/E/Zn/Coppr/Lutein/Zeaxan [Preservision Areds 2 Softgel] 1 cap PO BID Ascorbic Acid [Vitamin C] 1,000 mg PO DAILY Magnesium Oxide [Mag-Ox] 400 mg PO DAILY #30 tab Nystatin 100,000Unit/gm Cream [Mycostatin Cream] 1 applic TOPICAL BID #60 g Apixaban [Eliquis] 2.5 mg PO BID #60 tab Metoprolol Succinate (ER) [Toprol XL] 25 mg PO BID #60 tab Calcium Carbonate [Tums] 1,000 mg PO Q4HR PRN tab PRN Reason: Dyspepsia Discontinued HYDROcodone/APAP 5-325MG [[place] 5-325] 1 tab PO Q6H PRN PRN Reason: Pain Discharge Medication List Sacubitril/Valsartan [Entresto 24 mg-26 mg Tablet] 1 tab PO BID 01/12/22 [History] Omeprazole [PriLOSEC] 20 mg PO DAILY 03/05/22 [History] Ipratropium [place] [Atrovent Hfa] 2 puff INHALATION RT-QID 09/09/22 [History] ALPRAZolam [Xanax] 0.25 mg PO TID PRN 05/30/23 [History] Ammonium Lactate Lotion [Lac-Hydrin 12% Lotion] 1 applic TOPICAL BID PRN 05/30/23 [History] Aspirin 81 mg PO DAILY 05/30/23 [History] Atorvastatin [Lipitor] 20 mg PO DAILY 05/30/23 [History] Cholecalciferol [Vitamin D3 (25 Mcg = 1000 Iu)] 25 mcg PO DAILY 05/30/23 [History] Escitalopram [Lexapro] 10 mg PO DAILY 05/30/23 [History] Insulin Glargine,Hum.rec.anlog [Toujeo Max Solostar] 16 - 18 units SQ HS PRN 05/30/23 [History] Insulin Glargine,Hum.rec.anlog [Toujeo Max Solostar] 24 units SQ DAILY 05/30/23 [History] Multivit-Min/FA/Lycopen/Lutein [Centrum Silver Tablet] 1 tab PO DAILY 05/30/23 [History] Albuterol Inhaler [Ventolin Hfa Inhaler] 2 puff INHALATION RT-QID PRN 01/09/24 [History] Ascorbic Acid [Vitamin C] 1,000 mg PO DAILY 01/09/24 [History] Vit C/E/Zn/Coppr/Lutein/Zeaxan [Preservision Areds 2 Softgel] 1 cap PO BID 01/09/24 [History] Magnesium Oxide [Mag-Ox] 400 mg PO DAILY #30 tab 01/16/24 [Rx] Nystatin 100,000Unit/gm Cream [Mycostatin Cream] 1 applic TOPICAL BID #60 g 01/16/24 [Rx] Sodium Bicarbonate Tab 650 mg PO BID #60 tab 01/16/24 [Rx] Periguard Ointment 1 applic TOPICAL DIRECTED 03/03/24 [History] Vits A and D/White Pet/Lanolin [A and D Ointment] 1 applic TOPICAL DAILY PRN 03/03/24 [History] traMADol HCL 50 mg PO TID PRN 05/20/24 [History] Apixaban [Eliquis] 2.5 mg PO BID #60 tab 07/14/24 [Rx] Metoprolol Succinate (ER) [Toprol XL] 25 mg PO BID #60 tab 07/14/24 [Rx] Ondansetron Odt [Zofran ODT] 4 mg PO Q8HR PRN #15 tab 07/29/24 [Rx] Calcium Carbonate [Tums] 1,000 mg PO Q4HR PRN tab 08/27/24 [Rx] Furosemide [Lasix] 80 mg PO DAILY 09/27/24 [History] Midodrine HCl 10 mg PO AC-TID 09/27/24 [History] Follow up Appointment(s)/Referral(s): Luis Shirley MD [Primary Care Provider] - 1 Week Patient Instructions/Handouts: Abdominal Pain (ED) Discharge Disposition: HOME WITH HOME HEALTH SERVICES
[2024-09-30 10:14] LABS: HCT 27.8 % (37.2-46.3); HGB 7.7 g/dL (12.0-15.0); MCH 28.9 pg (27.0-32.0); MCHC 27.7 g/dL (32.0-37.0); MCV 104.5 FL (80.0-97.0); NRBC Per 100 WBC 0 X 10*3/uL (0.00-0.01); Platelet Count 153 X 10*3/uL (140-440); RBC 2.66 X 10*6/uL (4.10-5.20); RDW 29.2 % (11.5-14.5); WBC 6.00 X 10*3/uL (4.50-10.00)
[2024-09-30 10:32] LABS: ALT 16 U/L (8-44); AST 47 U/L (13-35); Albumin 2.5 g/dL (3.8-4.9); Albumin/Globulin Ratio 1.09 Ratio (1.60-3.17); Alkaline Phosphatase 94 U/L (41-126); Anion Gap 11.20 mmol/L (4.00-12.00); BUN/Creat Ratio 5.78 Ratio (12.00-20.00); Blood Urea Nitrogen 18.5 mg/dL (9.0-27.0); Calcium 7.7 mg/dL (8.7-10.3); Carbon Dioxide 25.8 mmol/L (21.6-31.8); Chloride 105 mmol/L (96-109); Globulin 2.3 g/dL (1.6-3.3); Glucose 157 mg/dL (70-110); Potassium 3.8 mmol/L (3.5-5.5); Sodium 142 mmol/L (135-145); Total Protein 4.8 g/dL (6.2-8.2)
--- NOTE | 2024-09-30 13:26 | P.PN ---
Subjective Progress Note Date: 09/30/24 Consulted for ESRD on HD scheduled for // via right IJ permacath. She is doing well this morning. She denies chest pain, shortness of breath, abdominal pain, or nausea. She continues to have leg discomfort due to swelling. Patient is seen on hemodialysis. Tolerating treatment well. Blood pressure continues to improve on midodrine. Being discharged today. Objective - Vital Signs Vital signs: Vital Signs Temp 98.1 F 09/30/24 07:05 Pulse 53 L 09/30/24 12:03 Resp 15 09/30/24 07:05 BP 100/57 09/30/24 12:03 Pulse Ox 100 09/30/24 07:05 FiO2 Intake & Output 09/29/24 09/30/24 09/30/24 18:59 06:59 18:59 Intake Total 620 120 Output Total 4400 Balance -3780 120 Intake: Oral 220 120 Hemodialysis 400 Output: Hemodialysis 2400 Hemodialysis Net Amount 2000 Other: # Voids 1 2 - Exam Patient is awake, alert oriented x 3 No acute distress Examination of the heart S1 and S2 Examination of the lungs shows bilateral breath sounds are heard Abdomen is soft nontender Examination of lower extremity shows 3+ edema 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 intact - Labs CBC & Chem 7: 09/30/24 06:47 09/30/24 06:47 Labs: Abnormal Lab Results - Last 24 Hours (Table) 09/29/24 09/29/24 09/30/24 Range/Units 17:24 20:18 06:17 RBC (4.10-5.20) X 10*6/uL Hgb (12.0-15.0) g/dL Hct (37.2-46.3) % MCV (80.0-97.0) FL MCHC (32.0-37.0) g/dL RDW (11.5-14.5) % Creatinine (0.6-1.5) mg/dL Est GFR (CKD-EPI) (>=60) BUN/Creatinine Ratio (12.00-20.00) Ratio Glucose (70-110) mg/dL POC Glucose (mg/dL) 157 H 212 H 170 H (70-110) mg/dL Calcium (8.7-10.3) mg/dL AST (13-35) U/L Total Protein (6.2-8.2) g/dL Albumin (3.8-4.9) g/dL Albumin/Globulin Ratio (1.60-3.17) Ratio 09/30/24 09/30/24 09/30/24 Range/Units 06:47 06:47 08:13 RBC 2.66 L (4.10-5.20) X 10*6/uL Hgb 7.7 L (12.0-15.0) g/dL Hct 27.8 L (37.2-46.3) % MCV 104.5 H (80.0-97.0) FL MCHC 27.7 L (32.0-37.0) g/dL RDW 29.2 H (11.5-14.5) % Creatinine 3.2 H (0.6-1.5) mg/dL Est GFR (CKD-EPI) 14 L (>=60) BUN/Creatinine Ratio 5.78 L (12.00-20.00) Ratio Glucose 157 H (70-110) mg/dL POC Glucose (mg/dL) 172 H (70-110) mg/dL Calcium 7.7 L (8.7-10.3) mg/dL AST 47 H (13-35) U/L Total Protein 4.8 L (6.2-8.2) g/dL Albumin 2.5 L (3.8-4.9) g/dL Albumin/Globulin Ratio 1.09 L (1.60-3.17) Ratio Microbiology - Last 24 Hours (Table) 09/29/24 09:40 Gram Stain - Preliminary Ascites Fluid Body Fluid Culture - Preliminary Assessment and Plan Assessment: 1. End stage renal disease on hemodialysis on Friday, , and Friday schedule via right IJ permacath 2. Chronic liver disease with ascites needing paracentesis as outpt. Stabalization of BP before paracentesis. Paracentesis completed. 3. Hypotension on admission. Maintained on midodrine for chronic hypotension. 4. CKD mineral bone disorder. Calcium 8.4. Phosphorous 1.8. No phosphorous binders noted on home meds. 5. Anemia of chronic disease. Hgb 7.7. Hgb 7-8 g/dl over the last 3 months. Previous iron saturation 8.8% on 08/22/24. Iron 117. Iron saturation 42.24%. Plan: Hemodialysis this morning. Continue midrodrine for hypotension. Continue aranesp q7d. Walter Green MD Internal Medicine PGY1 Nephrology service Patient is seen and examined. Agree with resident's findings, assessment and plan.
[2024-09-30 13:56] LABS: Glucose,Whole Blood 178 mg/dL (70-110)
[2024-09-30 15:37] VITALS: BP 89/44; PULSE 61; RESP 16; TEMP 98.6
[2024-09-30 17:05] LABS: Glucose,Whole Blood 206 mg/dL (70-110)
== END 2024-09-30 19:35 | disposition home health service (06) ==
LOC: EC 21:07 → 6NMEDSUR 09-27 06:34
PROVIDERS: ADMIT Family Medicine; ATTEND Family Medicine
DX: K74.60 Unspecified cirrhosis of liver (principal); R18.8 Other ascites; I95.89 Other hypotension; E11.22 Type 2 diabetes mellitus with diabetic chronic kidney disease; I13.11 Hypertensive heart and chronic kidney disease without heart failure, with stage 5 chronic kidney disease, or end stage renal disease; N18.6 End stage renal disease; D63.8 Anemia in other chronic diseases classified elsewhere; S30.810A Abrasion of lower back and pelvis, initial encounter; X58.XXXA Exposure to other specified factors, initial encounter; I87.2 Venous insufficiency (chronic) (peripheral); I25.10 Atherosclerotic heart disease of native coronary artery without angina pectoris; I25.2 Old myocardial infarction; I48.91 Unspecified atrial fibrillation; L29.9 Pruritus, unspecified; F41.9 Anxiety disorder, unspecified; Z74.01 Bed confinement status; Z79.01 Long term (current) use of anticoagulants; Z79.82 Long term (current) use of aspirin; Z79.899 Other long term (current) drug therapy; Z86.73 Personal history of transient ischemic attack (TIA), and cerebral infarction without residual deficits; Z99.2 Dependence on renal dialysis; Z79.4 Long term (current) use of insulin; Z88.5 Allergy status to narcotic agent; Z91.040 Latex allergy status; Z88.8 Allergy status to other drugs, medicaments and biological substances
CPT/HCPCS: G0257 ×38; 36415; 49083; 80053; 82150; 83036; 83540; 83550; 83605; 83690; 84100; 84484; 85025; 85027; 85610; 85730; 87070; 87075; 87205; 89050; 90935; 94640; 96372; 96374; 99285

== ENCOUNTER 2024-10-11 01:07 | Emergency (ER) | payer MEDICARE, OTHER ==
--- NOTE | 2024-10-11 01:34 | ED ---
Back Pain HPI - General Source: patient, EMS Limitations: no limitations <Charito Bhakta - Last Filed: 10/11/24 04:32> <King Dumont - Last Filed: 10/22/24 11:03> - General Chief Complaint: Back Pain/Injury Stated Complaint: Pain, MATTHIEU Time Seen by Provider: 10/11/24 01:18 - History of Present Illness Initial Comments: 79-year-old female with cirrhosis treated with paracentesis, A-fib (on anticoagulation with Eliquis), ESRD (TThS schedule), CAD, DM, known sacral ulcer left here for intractable back pain. Patient reported that she was at home trying to sleep when she started to have acute back pain that is aching 8/10 intensity located at the back up to the gluteal region. Also reported denied, fever, chills, nausea, vomiting, headaches, focal weakness, saddle anesthesia, changes in defacation or urination, overt extremity swelling, vision changes, speech changes, skin changes, bruising, bleeding, recent fall or trauma. Rece ntly admitted on 09/27 for abdominal pain secondary to ascites and paracentesis was done. (Charito Bhakta) - Related Data Home Medications Medication Instructions Recorded Confirmed Sacubitril/Valsartan [Entresto 24 1 tab PO BID 01/12/22 10/14/24 mg-26 mg Tablet] Omeprazole [PriLOSEC] 20 mg PO DAILY 03/05/22 10/14/24 Ipratropium [place] [Atrovent Hfa] 2 puff INHALATION RT-QID 09/09/22 10/14/24 ALPRAZolam [Xanax] 0.25 mg PO TID PRN 05/30/23 10/14/24 Ammonium Lactate Lotion 1 applic TOPICAL BID PRN 05/30/23 10/14/24 [Lac-Hydrin 12% Lotion] Aspirin 81 mg PO DAILY 05/30/23 10/14/24 Atorvastatin [Lipitor] 20 mg PO DAILY 05/30/23 10/14/24 Cholecalciferol [Vitamin D3 (25 25 mcg PO DAILY 05/30/23 10/14/24 Mcg = 1000 Iu)] Escitalopram [Lexapro] 10 mg PO DAILY 05/30/23 10/14/24 Insulin Glargine,Hum.rec.anlog 16 - 18 units SQ HS PRN 05/30/23 10/14/24 [Toujeo Max Solostar] Insulin Glargine,Hum.rec.anlog 24 units SQ DAILY 05/30/23 10/14/24 [Toujeo Max Solostar] Multivit-Min/FA/Lycopen/Lutein 1 tab PO DAILY 05/30/23 10/14/24 [Centrum Silver Tablet] Albuterol Inhaler [Ventolin Hfa 2 puff INHALATION RT-QID PRN 01/09/24 10/14/24 Inhaler] Ascorbic Acid [Vitamin C] 1,000 mg PO DAILY 01/09/24 10/14/24 Vit C/E/Zn/Coppr/Lutein/Zeaxan 1 cap PO BID 01/09/24 10/14/24 [Preservision Areds 2 Softgel] Periguard Ointment 1 applic TOPICAL DIRECTED 03/03/24 10/14/24 Vits A and D/White Pet/Lanolin [A 1 applic TOPICAL DAILY PRN 03/03/24 10/14/24 and D Ointment] traMADol HCL 50 mg PO TID PRN 05/20/24 10/14/24 Furosemide [Lasix] 80 mg PO DAILY 09/27/24 10/14/24 Midodrine HCl 10 mg PO AC-TID 09/27/24 10/14/24 Previous Rx's Medication Instructions Recorded Magnesium Oxide [Mag-Ox] 400 mg PO DAILY #30 tab 01/16/24 Nystatin 100,000Unit/gm Cream 1 applic TOPICAL BID #60 g 01/16/24 [Mycostatin Cream] Sodium Bicarbonate Tab 650 mg PO BID #60 tab 01/16/24 Apixaban [Eliquis] 2.5 mg PO BID #60 tab 07/14/24 Metoprolol Succinate (ER) [Toprol 25 mg PO BID #60 tab 07/14/24 XL] Ondansetron Odt [Zofran ODT] 4 mg PO Q8HR PRN #15 tab 07/29/24 Calcium Carbonate [Tums] 1,000 mg PO Q4HR PRN tab 08/27/24 Nystatin 100,000 Unit/gm Powd 1 applic TOPICAL BID #30 gm 07/21/25 [Mycostatin Powder] Allergies Allergy/AdvReac Type Severity Reaction Status Date / Time shellfish derived [Shellfish] Allergy Severe vomiting Verified 10/14/24 15:35 -very ill adhesive Allergy skin red Verified 10/14/24 15:35 and murguia, tears skin aluminum Allergy skin turns Verified 10/14/24 15:35 black, passes out Antihistamines - Allergy heart Verified 10/14/24 15:35 Ethylenediamine palpitations codeine Allergy migraines Verified 10/14/24 15:35 epinephrine Allergy heart Verified 10/14/24 15:35 palpitations fluticasone [From Flonase] Allergy Unknown Verified 10/14/24 15:35 hydrogen peroxide Allergy murguia and Verified 10/14/24 15:35 causes infection latex Allergy passes out Verified 10/14/24 15:35 nickel Allergy turns skin Verified 10/14/24 15:35 black and passes out procaine HCl [From Novocain] Allergy passed Verified 10/14/24 15:35 out- due to epinephrine in it. thiopental sodium Allergy needed cpr Verified 10/14/24 15:35 [From Pentothal] resusitation insulin glargine AdvReac Intermediate Diarrhea, Verified 10/14/24 15:35 [From Lantus U-100 Insulin] Vomiting, upset stomach iron AdvReac Nausea Verified 10/14/24 15:35 methocarbamol [From Robaxin] AdvReac Hallucinati Verified 10/14/24 15:35 ons zinc oxide AdvReac Rash/Hives Verified 10/14/24 15:35 surgical felicita Allergy Severe had to be Uncoded 10/13/24 16:51 removed 2 days post-op petroleum products AdvReac passes out Uncoded 10/13/24 16:51 or does not feel well. (diesel, oils) Review of Systems ROS Other: All systems not noted in ROS Statement are negative. <Charito Bhakta - Last Filed: 10/11/24 04:32> ROS Other: All systems not noted in ROS Statement are negative. <King Dumont - Last Filed: 10/22/24 11:03> ROS Statement: Those systems with pertinent positive or pertinent negative responses have been documented in the HPI. Past Medical History Past Medical History: Atrial Fibrillation, Coronary Artery Disease (CAD), CVA/TIA, Diabetes Mellitus, Dialysis, Deep Vein Thrombosis (DVT), Hypertension, Myocardial Infarction (ID), Osteoarthritis (OA) Additional Past Medical History / Comment(s): hx tia, hx stroke behind left eye., lt eye macular , states hospitalized with Covid April 2019 with life support and stage 3 kidney failure., hx of fall with hip fx and surgery 01/13/22 went to [facility] for Rehab. DVT during ., varicose veins, states painful sore left heel., hx of t.b. as a child with scarring on lungs. dialysis since 04/2024, and friday Last Myocardial Infarction Date:: unknown date History of Any Multi-Drug Resistant Organisms: MRSA, VRE Date of last positivie culture/infection: 09/09/22 MRSA & VRE ([facility]-Scanned) MDRO Source:: Blood Culture Past Surgical History: Adenoidectomy, Hysterectomy, Orthopedic Surgery, Tonsillectomy, Tubal Ligation Additional Past Surgical History / Comment(s): pilonidal cyst twice as child, rt knee arthroscopy, krystyna cataracts, krystyna great toe sx, ORIF Left hip (01/13/22) Past Anesthesia/Blood Transfusion Reactions: Previous Problems w/ Anesthesia, Postoperative Nausea & Vomiting (PONV) Additional Past Anesthesia/Blood Transfusion Reaction / Comment(s): difficulty waking up after sx. clausterphobia. 1 blood transfusion(during child ) pt stated had palpitations after 2nd unit given Past Psychological History: Anxiety Smoking Status: Never smoker Past Alcohol Use History: None Reported Past Drug Use History: None Reported - Past Family History Mother Family Medical History: Cancer Additional Family Medical History / Comment(s): lung cancer Father Family Medical History: Coronary Artery Disease (CAD) Additional Family Medical History / Comment(s): heart disease, kidney disese <Charito Bhakta - Last Filed: 10/11/24 04:32> General Exam Limitations: no limitations <Charito Bhakta - Last Filed: 10/11/24 04:32> - General Exam Comments Initial Comments: Physical examination: Vital signs reviewed General: non toxic, no distress, appears at stated age Derm: noted pressure ulcers at the gluteal and sacral region covered in dressing, no discharge overt bleeding or foul smell noted, slight erythema noted along surrounding intact skin, right IJ port noted Head: atraumatic, normocephalic, symmetric Mouth: no lip lesion, mucus membranes moist Cardiovascular: S1S2 reg, no murmur Lungs: CTA bilateral, no rhonchi, no rales, no stridor, no accessory muscle use Abdominal: soft, distended, nontender to palpation, no guarding, dressing noted on recent paracentesis site no discharge or erythema noted Ext: muscle strength 5 out of 5 in all 4 extremities grossly, no gross muscle atrophy, no contractures, positive dorsalis pedis pulse bilateral, no edema Neuro: no gross focal neuro deficits Psych: Alert and oriented x3, appropriate affect and mood (Charito Bhakta) Course <Charito Bhakta - Last Filed: 10/11/24 04:32> Vital Signs 10/11/24 10/11/24 10/11/24 01:08 02:30 03:24 Temperature 98.7 F Pulse Rate 93 67 84 Respiratory 18 18 18 Rate Blood Pressure 90/73 93/46 94/59 O2 Sat by Pulse 99 99 99 Oximetry 10/11/24 10/11/24 05:10 07:55 Temperature 97.6 F Pulse Rate 84 86 Respiratory 16 18 Rate Blood Pressure 99/51 98/59 O2 Sat by Pulse 100 97 Oximetry - Reevaluation(s) Reevaluation #1: 10/11/24 02:50 BP decreased due to IV morphine given for pain. Midodrine PO ordered. Patient not having any worsening of symptoms. (Charito Bhakta) Medical Decision Making - Lab Data Result diagrams: 10/11/24 02:37 <Charito Bhakta - Last Filed: 10/11/24 04:32> - Lab Data Result diagrams: 10/11/24 02:37 10/11/24 02:37 <King Dumont - Last Filed: 10/22/24 11:03> - Medical Decision Making Was pt. sent in by a medical professional or institution (, PA, PHARMACIST IN CHARGE, urgent care, hospital, or group home...) When possible be specific @ -No Did you speak to anyone other than the patient for history (EMS, parent, family, police, friend...)? What history was obtained from this source @ -Son at bedside Did you review nursing and triage notes (agree or disagree)? Why? @ -I reviewed and agree with nursing and triage notes Were old charts reviewed (outside hosp., previous admission, EMS record, old EKG, old radiological studies, urgent care reports/EKG's, group home records)? Report findings @ -Old charts were reviewed Differential Diagnosis? @ -Differential Back Pain: Strain, zoster, cauda equina syndrome, epidural abscess, vertebral osteomyelitis, discitis, fracture, subluxation, disc herniation, DJD, spinal stenosis, dissection, AAA, pancreatitis, peptic ulcer disease, pyelonephritis, kidney stone, this is not meant to be an all-inclusive list. EKG interpreted by me (3pts min.). @ -Not done X-rays interpreted by me (1pt min.). @ -None done CT interpreted by me (1pt min.). @ -None done U/S interpreted by me (1pt. min.). @ -None done What testing was considered but not performed or refused? (CT, X-rays, U/S, labs)? Why? @ -None What meds were considered but not given or refused? Why? @ -None Did you discuss the management of the patient with other professionals (professionals i.e. , PA, PHARMACIST IN CHARGE, lab, RT, psych nurse, nephrology social worker, web press operator, teacher, information security officer, telephonic nurse case manager)? Give summary @ -Dr. Dumont, supervising physician Was smoking cessation discussed for >3mins.? @ -No Was critical care preformed (if so, how long)? @ -No Were there social determinants of health that impacted care today? How? (Homelessness, low income, unemployed, alcoholism, drug addiction, transportation, low edu. Level, literacy, decrease access to med. care, senior care, rehab)? @ -No Was there de-escalation of care discussed even if they declined (Discuss DNR or withdrawal of care, Hospice)? DNR status @ -No What co-morbidities impacted this encounter? (DM, HTN, Smoking, COPD, CAD, Cancer, CVA, ARF, Chemo, Hep., AIDS, mental health diagnosis, sleep apnea, morbi d obesity)? @ -None Was patient admitted / discharged? Hospital course, mention meds given and route , prescriptions, significant lab abnormalities, going to OR and other pertinent info. @ -Discharge. Patient given morphine IV once. Patient exhibited somewhat decreased blood pressure from baseline and midodrine was given once. Lactic acid noted to be high and 250 mL bolus IV fluid given. Patient's symptoms did not worsen and no new symptoms or complaints occurred. She is cleared for discharge and advised to return if any red flag symptoms occurs. Undiagnosed new problem with uncertain prognosis? @ -No Drug Therapy requiring intensive monitoring for toxicity (Heparin, Nitro, Insulin, Cardizem)? @ -No Were any procedures done? @ -No Diagnosis/symptom? @ -[default] Acute, or Chronic, or Acute on Chronic? @ -Acute Uncomplicated (without systemic symptoms) or Complicated (systemic symptoms)? @ -Uncomplicated Side effects of treatment? @ -No Exacerbation, Progression, or Severe Exacerbation? @ -No Poses a threat to life or bodily function? How? (Chest pain, USA, ID, pneumonia, PE, COPD, DKA, ARF, appy, cholecystitis, CVA, Diverticulitis, Homicidal, Suicidal, threat to staff... and all critical care pts) @ -No (Charito Bhakta) I personally saw the patient and performed the critical portion of the service. I discussed the patient care with the resident. I directed management, care planning and final disposition of the patient. This includes, but not limited to, review of all lab work, radiological studies, EKG's, consultations, vital signs, and nursing notes. EKG interpreted by me (3pts min.) @ [as above] X-Rays interpreted by me (1 pt min.) @ [none] CT interpreted by me ( 1pt min.) @ [none] U/S interpreted by me (1 pt min.) @ [none] Critical care time of [0] minutes excluding separately billable procedures was spent in conjunction with critical care activities provided by the Resident and Attending simultaneously. I was present during [no procedures] for all critical portions of the procedure and as immediately available to furnish service during the entire procedure. (King Dumont) - Lab Data Lab Results 10/11/24 10/11/24 10/11/24 Range/Units 02:37 02:37 02:37 WBC 7.53 (4.50-10.00) 10*3/uL RBC 2.57 L (4.10-5.20) 10*6/uL Hgb 8.0 L (12.0-15.0) g/dL Hct 26.8 L (37.2-46.3) % MCV 104.3 H D (80.0-97.0) fL MCH 31.1 (27.0-32.0) pg MCHC 29.9 L (32.0-37.0) g/dL Plt Count 268 (140-440) 10*3/uL MPV 9.3 L (9.5-12.2) fL Immature Gran % (Auto) 0.3 % Neutrophils % 73.4 % Lymphocytes % 12.7 % Monocytes % 10.0 % Eosinophils % 2.8 % Basophils % 0.8 % Immature Gran # 0.02 (0.00-0.04) 10*3/uL Neutrophils # 5.53 (1.80-7.70) 10*3/uL Lymphocytes # 0.96 (0.90-5.00) 10*3/uL Monocytes # 0.75 (0.20-1.00) 10*3/uL Eosinophils # 0.21 (0.04-0.35) 10*3/uL Basophils # 0.06 (0.00-0.10) 10*3/uL Sodium 132 L (137-145) mmol/L Potassium 4.0 (3.5-5.1) mmol/L Chloride 100 (98-107) mmol/L Carbon Dioxide 22 (22-30) mmol/L Anion Gap 10 mmol/L BUN 43 H (7-17) mg/dL Creatinine 2.64 H (0.52-1.04) mg/dL Est GFR (CKD-EPI)AfAm 19 (>60 ml/min/1.73 sqM) Est GFR (CKD-EPI)NonAf 16 (>60 ml/min/1.73 sqM) Glucose 229 H (74-99) mg/dL Lactic Ac Sepsis Rflx Plasma Lactic Acid Jaspreet 2.9 H* (0.7-2.0) mmol/L Calcium 8.8 (8.4-10.2) mg/dL Total Bilirubin 0.6 (0.2-1.3) mg/dL AST 38 H (14-36) U/L ALT 15 (4-34) U/L Alkaline Phosphatase 95 (38-126) U/L C-Reactive Protein 4.6 H (<1.0) mg/dL Total Protein 5.1 L (6.3-8.2) g/dL Albumin 2.3 L (3.5-5.0) g/dL / Range/Units 03:11 WBC (4.50-10.00) 10*3/uL RBC (4.10-5.20) 10*6/uL Hgb (12.0-15.0) g/dL Hct (37.2-46.3) % MCV (80.0-97.0) fL MCH (27.0-32.0) pg MCHC (32.0-37.0) g/dL Plt Count (140-440) 10*3/uL MPV (9.5-12.2) fL Immature Gran % (Auto) % Neutrophils % % Lymphocytes % % Monocytes % % Eosinophils % % Basophils % % Immature Gran # (0.00-0.04) 10*3/uL Neutrophils # (1.80-7.70) 10*3/uL Lymphocytes # (0.90-5.00) 10*3/uL Monocytes # (0.20-1.00) 10*3/uL Eosinophils # (0.04-0.35) 10*3/uL Basophils # (0.00-0.10) 10*3/uL Sodium (137-145) mmol/L Potassium (3.5-5.1) mmol/L Chloride (98-107) mmol/L Carbon Dioxide (22-30) mmol/L Anion Gap mmol/L BUN (7-17) mg/dL Creatinine (0.52-1.04) mg/dL Est GFR (CKD-EPI)AfAm (>60 ml/min/1.73 sqM) Est GFR (CKD-EPI)NonAf (>60 ml/min/1.73 sqM) Glucose (74-99) mg/dL Lactic Ac Sepsis Rflx Y Plasma Lactic Acid Jaspreet (0.7-2.0) mmol/L Calcium (8.4-10.2) mg/dL Total Bilirubin (0.2-1.3) mg/dL AST (14-36) U/L ALT (4-34) U/L Alkaline Phosphatase (38-126) U/L C-Reactive Protein (<1.0) mg/dL Total Protein (6.3-8.2) g/dL Albumin (3.5-5.0) g/dL Disposition Is patient prescribed a controlled substance at d/c from ED?: No Time of Disposition: 04:33 <Charito Bhakta - Last Filed: 10/11/24 04:32> Is patient prescribed a controlled substance at d/c from ED?: No <OumoubereniceKing - Last Filed: 10/22/24 11:03> Clinical Impression: Mid back pain, Pressure injury of sacral region, stage 1 Disposition: HOME SELF-CARE Condition: Good Instructions (If sedation given, give patient instructions): Acute Low Back Pain (ED) Additional Instructions: Every disease is a spectrum and a small chance still exists that a serious condition could develop, for this reason, please monitor yourself closely for new, changing or worsening symptoms, symptoms that persist beyond another [address], intractable back pain, changes in urination or defecation, decreased sensation in the groin area, headaches, chills, fever >4 days, inability to tolerate/keep down fluids or your medications, inability to follow up with outpatient providers as instructed and should you experience these symptoms or should you have any further concerns for your wellbeing please return to the ED or call 911 immediately. PLEASE call your primary care physician as soon as possible to arrange / discuss plan for followup appointment. Appointment in the next 1-3 days is strongly encouraged if possible. PLEASE let us know here before you leave if there is anything further we can do to be of any assistance. Take care and feel Better! Prescriptions: Nystatin 100,000 Unit/gm Powd [Mycostatin Powder] 1 applic TOPICAL BID #30 gm Referrals: Luis Shirley MD [Primary Care Provider] - 1-2 days
[2024-10-11] MEDS: MORPHINE SULFATE 2 MG/ML SYRINGE IVP STA (02:26)
[2024-10-11 02:52] LABS: Basophils # (A) 0.06 10*3/uL (0.00-0.10); Basophils % (A) 0.8 %; Eosinophils # (A) 0.21 10*3/uL (0.04-0.35); Eosinophils % (A) 2.8 %; HCT 26.8 % (37.2-46.3); HGB 8.0 g/dL (12.0-15.0); Lymphocytes # (A) 0.96 10*3/uL (0.90-5.00); Lymphocytes % (A) 12.7 %; MCH 31.1 pg (27.0-32.0); MCHC 29.9 g/dL (32.0-37.0); Monocytes # (A) 0.75 10*3/uL (0.20-1.00); Monocytes % (A) 10.0 %; Neutrophils # (A) 5.53 10*3/uL (1.80-7.70); Neutrophils % (A) 73.4 %; Platelet Count 268 10*3/uL (140-440); RBC 2.57 10*6/uL (4.10-5.20); RDW 23.2 % (11.5-14.5); WBC 7.53 10*3/uL (4.50-10.00)
[2024-10-11] MEDS: MIDODRINE 5 MG TAB PO ONE (02:55)
[2024-10-11 02:57] LABS: MCV 104.3 fL (80.0-97.0)
[2024-10-11] MEDS: SODIUM CHLORIDE 0.9% 500 ML 250 ML IV ONE (04:19)
[2024-10-11 04:41] LABS: ALT 15 U/L (4-34); AST 38 U/L (14-36); African American GFR (CKD) 19 (>60 ml/min/1.73 sqM); Albumin 2.3 g/dL (3.5-5.0); Alkaline Phosphatase 95 U/L (38-126); Anion Gap 10 mmol/L; Blood Urea Nitrogen 43 mg/dL (7-17); Calcium 8.8 mg/dL (8.4-10.2); Carbon Dioxide 22 mmol/L (22-30); Chloride 100 mmol/L (98-107); Glucose 229 mg/dL (74-99); Non-African American GFR(CKD) 16 (>60 ml/min/1.73 sqM); Potassium 4.0 mmol/L (3.5-5.1); Sodium 132 mmol/L (137-145); Total Protein 5.1 g/dL (6.3-8.2)
[2024-10-11] MEDS ORDERED: MIDODRINE 5 MG TAB PO SCH (07:30)
[2024-10-11 07:58] VITALS: BP 98/59; PULSE 86; RESP 18; TEMP 97.6
== END 2024-10-11 08:15 | disposition home or self-care (01) ==
LOC: EC 01:07
DX: L89.151 Pressure ulcer of sacral region, stage 1 (principal); M54.9 Dorsalgia, unspecified; Z91.040 Latex allergy status; Z91.048 Other nonmedicinal substance allergy status; Z88.8 Allergy status to other drugs, medicaments and biological substances
CPT/HCPCS: 36415; 80053; 83605; 85025; 86140; 99284; 96374; J2270

== ENCOUNTER 2024-10-12 14:05 | Emergency (ER) | payer MEDICARE, OTHER ==
--- NOTE | 2024-10-12 14:52 | ED ---
General Adult HPI - General Chief complaint: Skin/Abscess/Foreign Body Stated complaint: pain Time Seen by Provider: 10/12/24 14:21 Source: patient, RN notes reviewed Mode of arrival: ambulatory Limitations: no limitations - History of Present Illness Initial comments: Patient is an 79-year-old female present to the emergency department from dialysis with concerns for chronic pain. Patient states she normally takes a pain pill every 6 hours. Patient states she was not able to wait without her pain pill and not able to finish dialysis. Patient believes she finished more than half a dialysis. Patient does admit she does feel little bit more confused at times. Patient this pain is chronic and not new. Patient does have sores on her bottom which are also not new nor worse as far she is aware. Patient does not ambulate normally. - Related Data Home Medications Medication Instructions Recorded Confirmed Sacubitril/Valsartan [Entresto 24 1 tab PO BID 01/12/22 10/12/24 mg-26 mg Tablet] Omeprazole [PriLOSEC] 20 mg PO DAILY 03/05/22 10/12/24 Ipratropium [place] [Atrovent Hfa] 2 puff INHALATION RT-QID 09/09/22 10/12/24 ALPRAZolam [Xanax] 0.25 mg PO TID PRN 05/30/23 10/12/24 Ammonium Lactate Lotion 1 applic TOPICAL BID PRN 05/30/23 10/12/24 [Lac-Hydrin 12% Lotion] Aspirin 81 mg PO DAILY 05/30/23 10/12/24 Atorvastatin [Lipitor] 20 mg PO DAILY 05/30/23 10/12/24 Cholecalciferol [Vitamin D3 (25 25 mcg PO DAILY 05/30/23 10/12/24 Mcg = 1000 Iu)] Escitalopram [Lexapro] 10 mg PO DAILY 05/30/23 10/12/24 Insulin Glargine,Hum.rec.anlog 16 - 18 units SQ HS PRN 05/30/23 10/12/24 [Toujeo Max Solostar] Insulin Glargine,Hum.rec.anlog 24 units SQ DAILY 05/30/23 10/12/24 [Toujeo Max Solostar] Multivit-Min/FA/Lycopen/Lutein 1 tab PO DAILY 05/30/23 10/12/24 [Centrum Silver Tablet] Albuterol Inhaler [Ventolin Hfa 2 puff INHALATION RT-QID PRN 01/09/24 10/12/24 Inhaler] Ascorbic Acid [Vitamin C] 1,000 mg PO DAILY 01/09/24 10/12/24 Vit C/E/Zn/Coppr/Lutein/Zeaxan 1 cap PO BID 01/09/24 10/12/24 [Preservision Areds 2 Softgel] Periguard Ointment 1 applic TOPICAL DIRECTED 03/03/24 10/12/24 Vits A and D/White Pet/Lanolin [A 1 applic TOPICAL DAILY PRN 03/03/24 10/12/24 and D Ointment] traMADol HCL 50 mg PO TID PRN 05/20/24 10/12/24 Furosemide [Lasix] 80 mg PO DAILY 09/27/24 10/12/24 Midodrine HCl 10 mg PO AC-TID 09/27/24 10/12/24 Previous Rx's Medication Instructions Recorded Magnesium Oxide [Mag-Ox] 400 mg PO DAILY #30 tab 01/16/24 Nystatin 100,000Unit/gm Cream 1 applic TOPICAL BID #60 g 01/16/24 [Mycostatin Cream] Sodium Bicarbonate Tab 650 mg PO BID #60 tab 01/16/24 Apixaban [Eliquis] 2.5 mg PO BID #60 tab 07/14/24 Metoprolol Succinate (ER) [Toprol 25 mg PO BID #60 tab 07/14/24 XL] Ondansetron Odt [Zofran ODT] 4 mg PO Q8HR PRN #15 tab 07/29/24 Calcium Carbonate [Tums] 1,000 mg PO Q4HR PRN tab 08/27/24 Nystatin 100,000 Unit/gm Powd 1 applic TOPICAL BID #30 gm 10/11/24 [Mycostatin Powder] Allergies Allergy/AdvReac Type Severity Reaction Status Date / Time shellfish derived [Shellfish] Allergy Severe vomiting Verified 10/12/24 16:06 -very ill adhesive Allergy skin red Verified 10/12/24 16:06 and murguia, tears skin aluminum Allergy skin turns Verified 10/12/24 16:06 black, passes out Antihistamines - Allergy heart Verified 10/12/24 16:06 Ethylenediamine palpitations codeine Allergy migraines Verified 10/12/24 16:06 epinephrine Allergy heart Verified 10/12/24 16:06 palpitations fluticasone [From Flonase] Allergy Unknown Verified 10/12/24 16:06 hydrogen peroxide Allergy murguia and Verified 10/12/24 16:06 causes infection latex Allergy passes out Verified 10/12/24 16:06 nickel Allergy turns skin Verified 10/12/24 16:06 black and passes out procaine HCl [From Novocain] Allergy passed Verified 10/12/24 16:06 out- due to epinephrine in it. thiopental sodium Allergy needed cpr Verified 10/12/24 16:06 [From Pentothal] resusitation insulin glargine AdvReac Intermediate Diarrhea, Verified 10/12/24 16:06 [From Lantus U-100 Insulin] Vomiting, upset stomach iron AdvReac Nausea Verified 10/12/24 16:06 methocarbamol [From Robaxin] AdvReac Hallucinati Verified 10/12/24 16:06 ons zinc oxide AdvReac Rash/Hives Verified 10/12/24 16:06 surgical felicita Allergy Severe had to be Uncoded 10/12/24 16:06 removed 2 days post-op petroleum products AdvReac passes out Uncoded 10/12/24 16:06 or does not feel well. (diesel, oils) Review of Systems ROS Statement: Those systems with pertinent positive or pertinent negative responses have been documented in the HPI. ROS Other: All systems not noted in ROS Statement are negative. Constitutional: Denies: fever Eyes: Denies: eye pain ENT: Denies: ear pain Respiratory: Denies: cough Cardiovascular: Denies: chest pain Endocrine: Denies: fatigue Gastrointestinal: Denies: abdominal pain Skin: Reports: as per HPI Neurological: Reports: as per HPI Past Medical History Past Medical History: Atrial Fibrillation, Coronary Artery Disease (CAD), CVA/TIA, Diabetes Mellitus, Dialysis, Deep Vein Thrombosis (DVT), Hypertension, Myocardial Infarction (NC), Osteoarthritis (OA) Additional Past Medical History / Comment(s): hx tia, hx stroke behind left eye., lt eye macular , states hospitalized with Covid April 2019 with life support and stage 3 kidney failure., hx of fall with hip fx and surgery 01/13/22 went to [facility] for Rehab. DVT during ., varicose veins, states painful sore left heel., hx of [place] as a child with scarring on lungs. dialysis since 04/2024, and friday Last Myocardial Infarction Date:: unknown date History of Any Multi-Drug Resistant Organisms: MRSA, VRE Date of last positivie culture/infection: 09/09/22 MRSA & VRE ([facility]-Scanned) MDRO Source:: Blood Culture Past Surgical History: Adenoidectomy, Hysterectomy, Orthopedic Surgery, Tonsillectomy, Tubal Ligation Additional Past Surgical History / Comment(s): pilonidal cyst twice as child, rt knee arthroscopy, krystyna cataracts, krystyna great toe sx, ORIF Left hip (01/13/22) Past Anesthesia/Blood Transfusion Reactions: Previous Problems w/ Anesthesia, Postoperative Nausea & Vomiting (PONV) Additional Past Anesthesia/Blood Transfusion Reaction / Comment(s): difficulty waking up after sx. clausterphobia. 1960 blood transfusion(during child ) pt stated had palpitations after 2nd unit given Past Psychological History: Anxiety Smoking Status: Never smoker Past Alcohol Use History: None Reported Past Drug Use History: None Reported - Past Family History Mother Family Medical History: Cancer Additional Family Medical History / Comment(s): lung cancer Father Family Medical History: Coronary Artery Disease (CAD) Additional Family Medical History / Comment(s): heart disease, kidney disese General Exam Limitations: no limitations General appearance: alert, in no apparent distress Head exam: Present: normocephalic Eye exam: Present: normal appearance Neck exam: Present: normal inspection Respiratory exam: Present: normal lung sounds bilaterally Cardiovascular Exam: Present: regular rate, normal rhythm GI/Abdominal exam: Present: soft. Absent: tenderness Extremities exam: Present: other (Leg atrophy) Back exam: Present: normal inspection Neurological exam: Present: alert, oriented X3, CN II-XII intact, other (Leg weakness) Psychiatric exam: Present: normal affect, normal mood Skin exam: Present: other (Stage I gluteal sores) Course Vital Signs 10/12/24 10/12/24 14:07 17:11 Temperature 98.3 F 98.2 F Pulse Rate 80 87 Respiratory 22 22 Rate Blood Pressure 107/44 109/46 O2 Sat by Pulse 95 98 Oximetry EKG Findings - EKG Results: EKG: interpreted by ERMD (PVCs present. Left axis. Anterior Q waves. Poor R wave progression.), sinus rhythm, normal ST/T Medical Decision Making - Medical Decision Making Was pt. sent in by a medical professional or institution (GLORIA Galindo, DOMESTIC TECHNICIAN, urgent care, hospital, or care home...) When possible be specific @ -Patient sent from dialysis center Did you speak to anyone other than the patient for history (EMS, parent, family, police, friend...)? What history was obtained from this source @ -No Did you review nursing and triage notes (agree or disagree)? Why? @ -I reviewed and agree with nursing and triage notes Were old charts reviewed (outside hosp., previous admission, EMS record, old EKG, old radiological studies, urgent care reports/EKG's, care home records)? Report findings @ -No old charts were reviewed Differential Diagnosis (chest pain, altered mental status, abdominal pain women, abdominal pain men, vaginal bleeding, weakness, fever, dyspnea, syncope, headache, dizziness, GI bleed, back pain, seizure, CVA, palpatations, mental health, musculoskeletal)? @ -Differential Altered Mental Status: Hypoglycemia, DKA, hypercapnia, ETOH, overdose, CO poisoning, trauma, myxedema coma, HTN encephalopathy, infection, encephalitis, psychosis, intercranial hemorrhage, hepatic encephalopathy, meningitis, CVA, this is not meant to be an all-inclusive list EKG interpreted by me (3pts min.). @ -As above X-rays interpreted by me (1pt min.). @ -2 view chest x-ray shows mild atelectasis versus infiltrate right upper lobe. CT interpreted by me (1pt min.). @ -CT brain without acute intracranial abnormality U/S interpreted by me (1pt. min.). @ -None done What testing was considered but not performed or refused? (CT, X-rays, U/S, labs)? Why? @ -None What meds were considered but not given or refused? Why? @ -None Did you discuss the management of the patient with other professionals (professionals i.e. GLORIA Galindo, DOMESTIC TECHNICIAN, lab, RT, psych nurse, social worker school, pipe coremaker, teacher, landing signal officer, case assembler)? Give summary @ -Case was discussed with Dr. Shirley who is familiar with this patient and is agreeable with discharge and he will follow-up with her tomorrow Was smoking cessation discussed for >3mins.? @ -No Was critical care preformed (if so, how long)? @ -No Were there social determinants of health that impacted care today? How? (H omelessness, low income, unemployed, alcoholism, drug addiction, transportation, low edu. Level, literacy, decrease access to med. care, group home, rehab)? @ -No Was there de-escalation of care discussed even if they declined (Discuss DNR or withdrawal of care, Hospice)? DNR status @ -No What co-morbidities impacted this encounter? (DM, HTN, Smoking, COPD, CAD, Cancer, CVA, ARF, Chemo, Hep., AIDS, mental health diagnosis, sleep apnea, morbid obesity)? @ -None Was patient admitted / discharged? Hospital course, mention meds given and route, prescriptions, significant lab abnormalities, going to OR and other pertinent info. @ -Patient presents with chronic pain, chronic gluteal sores and questionable confusion. No confusion on evaluation. Evaluation otherwise unremarkable. Case was discussed with Dr. Shirley who will follow-up with this patient. Patient updated on results and plan. Undiagnosed new problem with uncertain prognosis? @ -No Drug Therapy requiring intensive monitoring for toxicity (Heparin, Nitro, Insulin, Cardizem)? @ -No Were any procedures done? @ -No Diagnosis/symptom? @ -Confusion, pain Acute, or Chronic, or Acute on Chronic? @ -Acute on chronic, acute on chronic Uncomplicated (without systemic symptoms) or Complicated (systemic symptoms)? @ -Default Side effects of treatment? @ -No Exacerbation, Progression, or Severe Exacerbation? @ -No Poses a threat to life or bodily function? How? (Chest pain, USA, NC, pneumonia, PE, COPD, DKA, ARF, appy, cholecystitis, CVA, Diverticulitis, Homicidal, Suicidal, threat to staff... and all critical care pts) @ -No - Lab Data Result diagrams: 10/12/24 15:40 10/12/24 15:40 Lab Results 10/12/24 10/12/24 10/12/24 Range/Units 15:40 15:40 15:40 WBC 9.86 (4.50-10.00) 10*3/uL RBC 2.68 L (4.10-5.20) 10*6/uL Hgb 8.4 L (12.0-15.0) g/dL Hct 26.8 L (37.2-46.3) % MCV 100.0 H (80.0-97.0) fL MCH 31.3 (27.0-32.0) pg MCHC 31.3 L (32.0-37.0) g/dL Plt Count 271 (140-440) 10*3/uL MPV 9.4 L (9.5-12.2) fL Immature Gran % (Auto) 0.5 % Neutrophils % 83.7 % Lymphocytes % 8.9 % Monocytes % 6.2 % Eosinophils % 0.2 % Basophils % 0.5 % Immature Gran # 0.05 H (0.00-0.04) 10*3/uL Neutrophils # 8.25 H (1.80-7.70) 10*3/uL Lymphocytes # 0.88 L (0.90-5.00) 10*3/uL Monocytes # 0.61 (0.20-1.00) 10*3/uL Eosinophils # 0.02 L (0.04-0.35) 10*3/uL Basophils # 0.05 (0.00-0.10) 10*3/uL PT 10.9 (10.0-12.5) sec INR 1.0 (<1.2) APTT 24.0 (22.0-30.0) sec Sodium 133 L (137-145) mmol/L Potassium 3.9 (3.5-5.1) mmol/L Chloride 102 (98-107) mmol/L Carbon Dioxide 18 L (22-30) mmol/L Anion Gap 13 mmol/L BUN 46 H (7-17) mg/dL Creatinine 2.71 H (0.52-1.04) mg/dL Est GFR (CKD-EPI)AfAm 18 (>60 ml/min/1.73 sqM) Est GFR (CKD-EPI)NonAf 16 (>60 ml/min/1.73 sqM) Glucose 162 H (74-99) mg/dL Calcium 9.1 (8.4-10.2) mg/dL Total Bilirubin 0.8 (0.2-1.3) mg/dL AST 49 H (14-36) U/L ALT 19 (4-34) U/L Alkaline Phosphatase 119 (38-126) U/L Troponin I (0.000-0.034) ng/mL Total Protein 6.1 L (6.3-8.2) g/dL Albumin 3.0 L (3.5-5.0) g/dL 10/12/24 Range/Units 15:40 WBC (4.50-10.00) 10*3/uL RBC (4.10-5.20) 10*6/uL Hgb (12.0-15.0) g/dL Hct (37.2-46.3) % MCV (80.0-97.0) fL MCH (27.0-32.0) pg MCHC (32.0-37.0) g/dL Plt Count (140-440) 10*3/uL MPV (9.5-12.2) fL Immature Gran % (Auto) % Neutrophils % % Lymphocytes % % Monocytes % % Eosinophils % % Basophils % % Immature Gran # (0.00-0.04) 10*3/uL Neutrophils # (1.80-7.70) 10*3/uL Lymphocytes # (0.90-5.00) 10*3/uL Monocytes # (0.20-1.00) 10*3/uL Eosinophils # (0.04-0.35) 10*3/uL Basophils # (0.00-0.10) 10*3/uL PT (10.0-12.5) sec INR (<1.2) APTT (22.0-30.0) sec Sodium (137-145) mmol/L Potassium (3.5-5.1) mmol/L Chloride (98-107) mmol/L Carbon Dioxide (22-30) mmol/L Anion Gap mmol/L BUN (7-17) mg/dL Creatinine (0.52-1.04) mg/dL Est GFR (CKD-EPI)AfAm (>60 ml/min/1.73 sqM) Est GFR (CKD-EPI)NonAf (>60 ml/min/1.73 sqM) Glucose (74-99) mg/dL Calcium (8.4-10.2) mg/dL Total Bilirubin (0.2-1.3) mg/dL AST (14-36) U/L ALT (4-34) U/L Alkaline Phosphatase (38-126) U/L Troponin I 0.013 (0.000-0.034) ng/mL Total Protein (6.3-8.2) g/dL Albumin (3.5-5.0) g/dL Disposition Clinical Impression: Confusion Disposition: HOME SELF-CARE Condition: Stable Instructions (If sedation given, give patient instructions): Altered Mental Status (ED) Additional Instructions: Please do follow-up with your primary care physician in the next day or 2 for recheck. Return for confusion, worsening sores, fevers, change or worsening symptoms or other concerns. Resume dialysis as planned. Is patient prescribed a controlled substance at d/c from ED?: No Referrals: Luis Shirley MD [Primary Care Provider] - 1-2 days Time of Disposition: 18:36
[2024-10-12 15:59] LABS: Basophils # (A) 0.05 10*3/uL (0.00-0.10); Basophils % (A) 0.5 %; Eosinophils # (A) 0.02 10*3/uL (0.04-0.35); Eosinophils % (A) 0.2 %; HCT 26.8 % (37.2-46.3); HGB 8.4 g/dL (12.0-15.0); Lymphocytes # (A) 0.88 10*3/uL (0.90-5.00); Lymphocytes % (A) 8.9 %; MCH 31.3 pg (27.0-32.0); MCHC 31.3 g/dL (32.0-37.0); MCV 100.0 fL (80.0-97.0); Monocytes # (A) 0.61 10*3/uL (0.20-1.00); Monocytes % (A) 6.2 %; Neutrophils # (A) 8.25 10*3/uL (1.80-7.70); Neutrophils % (A) 83.7 %; Platelet Count 271 10*3/uL (140-440); RBC 2.68 10*6/uL (4.10-5.20); RDW 21.9 % (11.5-14.5); WBC 9.86 10*3/uL (4.50-10.00)
[2024-10-12 16:08] LABS: INR 1.0 (<1.2); Partial Thromboplastin Time 24.0 sec (22.0-30.0); Prothrombin Time 10.9 sec (10.0-12.5)
[2024-10-12 16:18] LABS: ALT 19 U/L (4-34); AST 49 U/L (14-36); African American GFR (CKD) 18 (>60 ml/min/1.73 sqM); Albumin 3.0 g/dL (3.5-5.0); Alkaline Phosphatase 119 U/L (38-126); Anion Gap 13 mmol/L; Blood Urea Nitrogen 46 mg/dL (7-17); Calcium 9.1 mg/dL (8.4-10.2); Carbon Dioxide 18 mmol/L (22-30); Chloride 102 mmol/L (98-107); Glucose 162 mg/dL (74-99); Non-African American GFR(CKD) 16 (>60 ml/min/1.73 sqM); Potassium 3.9 mmol/L (3.5-5.1); Sodium 133 mmol/L (137-145); Total Protein 6.1 g/dL (6.3-8.2)
--- NOTE | 2024-10-12 16:35 | XR ---
EXAMINATION TYPE: XR chest 2V DATE OF EXAM: 10/12/2024 4:30 PM COMPARISON: 09/17/2024 CLINICAL INDICATION: Female, 79 years old with history of altered mental status, TECHNIQUE: XR chest 2V view(s) obtained. FINDINGS: The heart size is enlarged. The pulmonary vasculature is normal. There is some mild infiltrate in the right upper lung field. Correlate for atelectasis or pneumonia. Double-lumen catheter is present on the right with the tips in the proximal right atrium IMPRESSION: 1. Mild infiltrate right upper lobe may be some atelectasis or pneumonia. Follow-up is recommended. [facility], Workstation: [id number], 10/12/2024 4:33 PM
--- NOTE | 2024-10-12 17:49 | CT ---
EXAMINATION TYPE: CT brain wo con DATE OF EXAM: 10/12/2024 5:41 PM COMPARISON: None. CLINICAL INDICATION: Female, 79 years old with history of Altered mental status, altered mental statu s TECHNIQUE: CT of the brain is performed utilizing 3 mm thick sections through the posterior fossa and 3 mm thick sections through the remaining calvarium. Study is performed within 24 hours of arrival to the hospital. Contrast used: mL of , (none if empty) CT DLP: 1098.4 mGycm, Automated exposure control for dose reduction was used. FINDINGS: No abnormal hyperdensity is present to suggest an acute intracranial hemorrhage. No mass lesion is evident. No acute infarcts are evident. Mild periventricular white matter hypodensity may be present likely on the basis of chronic white matter ischemic changes. Ventricles and sulci are somewhat prominent for the patient age. Paranasal sinuses and mastoid air cells within the [id number] are clear. IMPRESSION: 1. No acute intracranial process. Follow up MRI can be performed as clinically indicated. 2. Atrophy with mild chronic appearing periventricular white matter ischemic changes. [facility], Workstation: [email or web address], 10/12/2024 5:47 PM
[2024-10-12 18:43] VITALS: BP 104/51; PULSE 85; TEMP 98
[2024-10-12 19:24] VITALS: RESP 20
== END 2024-10-12 19:34 | disposition home or self-care (01) ==
LOC: EC 14:05
DX: R41.0 Disorientation, unspecified (principal); Z86.73 Personal history of transient ischemic attack (TIA), and cerebral infarction without residual deficits; Z91.040 Latex allergy status; Z88.8 Allergy status to other drugs, medicaments and biological substances; Z91.013 Allergy to seafood; Z99.2 Dependence on renal dialysis
CPT/HCPCS: 36415; 70450; 71046; 80053; 84484; 85025; 85610; 85730; 93005; 99284

== ENCOUNTER 2024-10-13 16:41 | Emergency (ER) | payer MEDICARE, OTHER ==
[2024-10-13 16:51] VITALS: RESP 18; TEMP 98.1
--- NOTE | 2024-10-13 17:15 | ED ---
Female Urogenital HPI - General Chief complaint: Urogenital Stated complaint: Confusion Time Seen by Provider: 10/13/24 17:08 Source: patient, family, EMS, RN notes reviewed Mode of arrival: EMS Limitations: no limitations - History of Present Illness Initial comments: 79-year-old female presenting with son via EMS for possible UTI. Patient states she has been having dysuria and suprapubic burning over the past several days. Son also reports he believes patient has been confused however patient does not appear confused upon examination, he is alert and oriented x 3 and is answering all questions appropriately. States they were here yesterday for similar symptoms and were discharged with close follow-up with Dr. Shirley. Son reports they cannot make it to the office to see Dr. Shirley as patient is bedbound. Patient does receive hemodialysis Tuesdays, , and Saturdays. Patient states she does make a small amount of urine. Patient states she missed half of her dialysis appointment yesterday as residential through she came to the ER because she was having acute on chronic generalized pain. Patient does take Eliquis. She has a history of atrial fibrillation, CAD, CVA, diabetes, and hypertension. Denies focal deficits, chest pain, shortness of breath. - Related Data Home Medications Medication Instructions Recorded Confirmed Sacubitril/Valsartan [Entresto 24 1 tab PO BID 01/12/22 10/12/24 mg-26 mg Tablet] Omeprazole [PriLOSEC] 20 mg PO DAILY 03/05/22 10/12/24 Ipratropium Rumsey [Atrovent Hfa] 2 puff INHALATION RT-QID 09/09/22 10/12/24 ALPRAZolam [Xanax] 0.25 mg PO TID PRN 05/30/23 10/12/24 Ammonium Lactate Lotion 1 applic TOPICAL BID PRN 05/30/23 10/12/24 [Lac-Hydrin 12% Lotion] Aspirin 81 mg PO DAILY 05/30/23 10/12/24 Atorvastatin [Lipitor] 20 mg PO DAILY 05/30/23 10/12/24 Cholecalciferol [Vitamin D3 (25 25 mcg PO DAILY 05/30/23 10/12/24 Mcg = 1000 Iu)] Escitalopram [Lexapro] 10 mg PO DAILY 05/30/23 10/12/24 Insulin Glargine,Hum.rec.anlog 16 - 18 units SQ HS PRN 05/30/23 10/12/24 [Toujeo Max Solostar] Insulin Glargine,Hum.rec.anlog 24 units SQ DAILY 05/30/23 10/12/24 [Toujeo Max Solostar] Multivit-Min/FA/Lycopen/Lutein 1 tab PO DAILY 05/30/23 10/12/24 [Centrum Silver Tablet] Albuterol Inhaler [Ventolin Hfa 2 puff INHALATION RT-QID PRN 01/09/24 10/12/24 Inhaler] Ascorbic Acid [Vitamin C] 1,000 mg PO DAILY 01/09/24 10/12/24 Vit C/E/Zn/Coppr/Lutein/Zeaxan 1 cap PO BID 01/09/24 10/12/24 [Preservision Areds 2 Softgel] Periguard Ointment 1 applic TOPICAL DIRECTED 03/03/24 10/12/24 Vits A and D/White Pet/Lanolin [A 1 applic TOPICAL DAILY PRN 03/03/24 10/12/24 and D Ointment] traMADol HCL 50 mg PO TID PRN 05/20/24 10/12/24 Furosemide [Lasix] 80 mg PO DAILY 09/27/24 10/12/24 Midodrine HCl 10 mg PO AC-TID 09/27/24 10/12/24 Previous Rx's Medication Instructions Recorded Magnesium Oxide [Mag-Ox] 400 mg PO DAILY #30 tab 01/16/24 Nystatin 100,000Unit/gm Cream 1 applic TOPICAL BID #60 g 01/16/24 [Mycostatin Cream] Sodium Bicarbonate Tab 650 mg PO BID #60 tab 01/16/24 Apixaban [Eliquis] 2.5 mg PO BID #60 tab 07/14/24 Metoprolol Succinate (ER) [Toprol 25 mg PO BID #60 tab 07/14/24 XL] Ondansetron Odt [Zofran ODT] 4 mg PO Q8HR PRN #15 tab 07/29/24 Calcium Carbonate [Tums] 1,000 mg PO Q4HR PRN tab 08/27/24 Nystatin 100,000 Unit/gm Powd 1 applic TOPICAL BID #30 gm 10/11/24 [Mycostatin Powder] Allergies Allergy/AdvReac Type Severity Reaction Status Date / Time shellfish derived [Shellfish] Allergy Severe vomiting Verified 10/13/24 16:51 -very ill adhesive Allergy skin red Verified 10/13/24 16:51 and murguia, tears skin aluminum Allergy skin turns Verified 10/13/24 16:51 black, passes out Antihistamines - Allergy heart Verified 10/13/24 16:51 Ethylenediamine palpitations codeine Allergy migraines Verified 10/13/24 16:51 epinephrine Allergy heart Verified 10/13/24 16:51 palpitations fluticasone [From Flonase] Allergy Unknown Verified 10/13/24 16:51 hydrogen peroxide Allergy murguia and Verified 10/13/24 16:51 causes infection latex Allergy passes out Verified 10/13/24 16:51 nickel Allergy turns skin Verified 10/13/24 16:51 black and passes out procaine HCl [From Novocain] Allergy passed Verified 10/13/24 16:51 out- due to epinephrine in it. thiopental sodium Allergy needed cpr Verified 10/13/24 16:51 [From Pentothal] resusitation insulin glargine AdvReac Intermediate Diarrhea, Verified 10/13/24 16:51 [From Lantus U-100 Insulin] Vomiting, upset stomach iron AdvReac Nausea Verified 10/13/24 16:51 methocarbamol [From Robaxin] AdvReac Hallucinati Verified 10/13/24 16:51 ons zinc oxide AdvReac Rash/Hives Verified 10/13/24 16:51 surgical felicita Allergy Severe had to be Uncoded 10/13/24 16:51 removed 2 days post-op petroleum products AdvReac passes out Uncoded 10/13/24 16:51 or does not feel well. (diesel, oils) Review of Systems ROS Statement: Those systems with pertinent positive or pertinent negative responses have been documented in the HPI. ROS Other: All systems not noted in ROS Statement are negative. Past Medical History Past Medical History: Atrial Fibrillation, Coronary Artery Disease (CAD), CVA/TIA, Diabetes Mellitus, Dialysis, Deep Vein Thrombosis (DVT), Hypertension, Myocardial Infarction (ID), Osteoarthritis (OA) Additional Past Medical History / Comment(s): hx tia, hx stroke behind left eye., lt eye macular , states hospitalized with Covid April 2019 with life support and stage 3 kidney failure., hx of fall with hip fx and surgery 01/13/[address] [facility] for Rehab. DVT during ., varicose veins, states painful sore left heel., hx of t.b. as a child with scarring on lungs. dialysis since 04/2024, and friday Last Myocardial Infarction Date:: unknown date History of Any Multi-Drug Resistant Organisms: MRSA, VRE Date of last positivie culture/infection: 09/09/22 MRSA & VRE ([facility]-Scanned) MDRO Source:: Blood Culture Past Surgical History: Adenoidectomy, Hysterectomy, Orthopedic Surgery, Tonsillectomy, Tubal Ligation Additional Past Surgical History / Comment(s): pilonidal cyst twice as child, rt knee arthroscopy, krystyna cataracts, krystyna great toe sx, ORIF Left hip (01/13/22) Past Anesthesia/Blood Transfusion Reactions: Previous Problems w/ Anesthesia, Postoperative Nausea & Vomiting (PONV) Additional Past Anesthesia/Blood Transfusion Reaction / Comment(s): difficulty waking up after sx. clausterphobia. 1960 blood transfusion(during child ) pt stated had palpitations after 2nd unit given Past Psychological History: Anxiety Smoking Status: Never smoker Past Alcohol Use History: None Reported Past Drug Use History: None Reported - Past Family History Mother Family Medical History: Cancer Additional Family Medical History / Comment(s): lung cancer Father Family Medical History: Coronary Artery Disease (CAD) Additional Family Medical History / Comment(s): heart disease, kidney disese General Exam Limitations: no limitations General appearance: alert, in no apparent distress Head exam: Present: atraumatic, normocephalic, normal inspection Eye exam: Present: normal appearance, PERRL, EOMI. Absent: scleral icterus, conjunctival injection, periorbital swelling ENT exam: Present: normal exam, mucous membranes moist Respiratory exam: Present: normal lung sounds bilaterally. Absent: respiratory distress, wheezes, rales, rhonchi, stridor Cardiovascular Exam: Present: regular rate, normal rhythm, normal heart sounds. Absent: systolic murmur, diastolic murmur, rubs, gallop, clicks GI/Abdominal exam: Present: soft, normal bowel sounds. Absent: distended, tenderness, guarding, rebound, rigid Back exam: Absent: CVA tenderness (R), CVA tenderness (L) Neurological exam: Present: alert, oriented X3, CN II-XII intact Psychiatric exam: Present: normal affect, normal mood Skin exam: Present: warm, dry, intact, normal color. Absent: rash Course Vital Signs 10/13/24 16:47 Temperature 98.1 F Pulse Rate 89 Respiratory 18 Rate Blood Pressure 100/59 O2 Sat by Pulse 97 Oximetry Medical Decision Making - Medical Decision Making Was pt. sent in by a medical professional or institution (, [facility], HAND PASTER, urgent care, hospital, or senior living...) When possible be specific @ -No Did you speak to anyone other than the patient for history (EMS, parent, family, police, friend...)? What history was obtained from this source @ -No Did you review nursing and triage notes (agree or disagree)? Why? @ -I reviewed and agree with nursing and triage notes Were old charts reviewed (outside hosp., previous admission, EMS record, old EKG, old radiological studies, urgent care reports/EKG's, senior living records)? Report findings @ -Reviewed ER note from yesterday including largely unremarkable lab work, unremarkable CT brain, and EKG Differential Diagnosis (chest pain, altered mental status, abdominal pain women, abdominal pain men, vaginal bleeding, weakness, fever, dyspnea, syncope, headache, dizziness, GI bleed, back pain, seizure, CVA, palpatations, mental h ealth, musculoskeletal)? @ -Urinary tract infection, sepsis, pyelonephritis, renal failure EKG interpreted by me (3pts min.). @ -None X-rays interpreted by me (1pt min.). @ -None done CT interpreted by me (1pt min.). @ -None done U/S interpreted by me (1pt. min.). @ -None done What testing was considered but not performed or refused? (CT, X-rays, U/S, labs)? Why? @ -None What meds were considered but not given or refused? Why? @ -None Did you discuss the management of the patient with other professionals (professionals i.e. GLORIA Galindo, HAND PASTER, lab, RT, psych nurse, social science teacher, goods layer, teacher, accounting officer, manager rn case)? Give summary @ -No Was smoking cessation discussed for >3mins.? @ -No Was critical care preformed (if so, how long)? @ -No Were there social determinants of health that impacted care today? How? (Homelessness, low income, unemployed, alcoholism, drug addiction, transport ation, low edu. Level, literacy, decrease access to med. care, assisted, rehab)? @ -No Was there de-escalation of care discussed even if they declined (Discuss DNR or withdrawal of care, Hospice)? DNR status @ -No What co-morbidities impacted this encounter? (DM, HTN, Smoking, COPD, CAD, Cancer, CVA, ARF, Chemo, Hep., AIDS, mental health diagnosis, sleep apnea, morbid obesity)? @ -None Was patient admitted / discharged? Hospital course, mention meds given and route, prescriptions, significant lab abnormalities, going to OR and other pertinent info. @ -Discharge. 79-year-old female presenting for dysuria. She presents with son who is concerned patient has a UTI. Patient is alert and oriented x 3. Abdomen soft nontender. Patient appears well, no acute distress. Lab work remarkable for hemoglobin of 6.7. Patient denies any black or tarry stools or hematemesis. Patient does have a history of multifactorial anemia was given transfusion during admission last month. While preparing for the transfusion, patient decides to refuse transfusion stating she would like to go home and deal with this on her own. Also attempted to obtain urinalysis via straight cath as patient has been unable to leave a urine sample and patient adamantly refuses. Discussed risks of refusing blood transfusion in detail with patient and son, and patient verbalizes understanding and adamantly states she would like to be discharged. Patient is alert and oriented x 3 and is able to make her own medical decisions. Patient left AGAINST MEDICAL ADVICE. Case was discussed with my ED attending Dr. Carmen Undiagnosed new problem with uncertain prognosis? @ -No Drug Therapy requiring intensive monitoring for toxicity (Heparin, Nitro, Insulin, Cardizem)? @ -No Were any procedures done? @ -No Diagnosis/symptom? @ -Anemia Acute, or Chronic, or Acute on Chronic? @ -Acute Uncomplicated (without systemic symptoms) or Complicated (systemic symptoms)? @ -Complicated Side effects of treatment? @ -No Exacerbation, Progression, or Severe Exacerbation? @ -No Poses a threat to life or bodily function? How? (Chest pain, USA, ID, pneumonia, PE, COPD, DKA, ARF, appy, cholecystitis, CVA, Diverticulitis, Homicidal, Suicidal, threat to staff... and all critical care pts) @ -Yes - Lab Data Result diagrams: 10/13/24 17:21 10/13/24 17:21 Lab Results 10/13/24 10/13/24 10/13/24 Range/Units 17:21 17:21 18:37 WBC 13.28 H (4.50-10.00) 10*3/uL RBC 2.14 L (4.10-5.20) 10*6/uL Hgb 6.7 L* D (12.0-15.0) g/dL Hct 21.2 L (37.2-46.3) % MCV 99.1 H (80.0-97.0) fL MCH 31.3 (27.0-32.0) pg MCHC 31.6 L (32.0-37.0) g/dL Plt Count 268 (140-440) 10*3/uL MPV 8.7 L (9.5-12.2) fL Immature Gran % (Auto) 0.5 % Neutrophils % 82.7 % Lymphocytes % 8.9 % Monocytes % 7.3 % Eosinophils % 0.2 % Basophils % 0.4 % Immature Gran # 0.07 H (0.00-0.04) 10*3/uL Neutrophils # 10.99 H (1.80-7.70) 10*3/uL Lymphocytes # 1.18 (0.90-5.00) 10*3/uL Monocytes # 0.97 (0.20-1.00) 10*3/uL Eosinophils # 0.02 L (0.04-0.35) 10*3/uL Basophils # 0.05 (0.00-0.10) 10*3/uL PT 11.7 (10.0-12.5) sec INR 1.1 (<1.2) APTT 23.9 (22.0-30.0) sec Sodium 131 L (137-145) mmol/L Potassium 4.1 (3.5-5.1) mmol/L Chloride 99 (98-107) mmol/L Carbon Dioxide 22 (22-30) mmol/L Anion Gap 10 mmol/L BUN 61 H (7-17) mg/dL Creatinine 3.40 H (0.52-1.04) mg/dL Est GFR (CKD-EPI)AfAm 14 (>60 ml/min/1.73 sqM) Est GFR (CKD-EPI)NonAf 12 (>60 ml/min/1.73 sqM) Glucose 165 H (74-99) mg/dL Calcium 9.3 (8.4-10.2) mg/dL Total Bilirubin 0.4 (0.2-1.3) mg/dL AST 36 (14-36) U/L ALT 17 (4-34) U/L Alkaline Phosphatase 89 (38-126) U/L Total Protein 5.0 L (6.3-8.2) g/dL Albumin 2.3 L (3.5-5.0) g/dL Disposition Clinical Impression: Anemia Disposition: LEFT AGAINST MEDICAL ADVICE Referrals: Luis Shirley MD [Primary Care Provider] - 1-2 days Time of Disposition: 20:07
[2024-10-13 17:31] LABS: Basophils # (A) 0.05 10*3/uL (0.00-0.10); Basophils % (A) 0.4 %; Eosinophils # (A) 0.02 10*3/uL (0.04-0.35); Eosinophils % (A) 0.2 %; HCT 21.2 % (37.2-46.3); Lymphocytes # (A) 1.18 10*3/uL (0.90-5.00); Lymphocytes % (A) 8.9 %; MCH 31.3 pg (27.0-32.0); MCHC 31.6 g/dL (32.0-37.0); MCV 99.1 fL (80.0-97.0); Monocytes # (A) 0.97 10*3/uL (0.20-1.00); Monocytes % (A) 7.3 %; Neutrophils # (A) 10.99 10*3/uL (1.80-7.70); Neutrophils % (A) 82.7 %; Platelet Count 268 10*3/uL (140-440); RBC 2.14 10*6/uL (4.10-5.20); RDW 21.4 % (11.5-14.5); WBC 13.28 10*3/uL (4.50-10.00)
[2024-10-13 17:45] LABS: ALT 17 U/L (4-34); AST 36 U/L (14-36); African American GFR (CKD) 14 (>60 ml/min/1.73 sqM); Albumin 2.3 g/dL (3.5-5.0); Alkaline Phosphatase 89 U/L (38-126); Anion Gap 10 mmol/L; Blood Urea Nitrogen 61 mg/dL (7-17); Calcium 9.3 mg/dL (8.4-10.2); Carbon Dioxide 22 mmol/L (22-30); Chloride 99 mmol/L (98-107); Glucose 165 mg/dL (74-99); HGB 6.7 g/dL (12.0-15.0); Non-African American GFR(CKD) 12 (>60 ml/min/1.73 sqM); Potassium 4.1 mmol/L (3.5-5.1); Sodium 131 mmol/L (137-145); Total Protein 5.0 g/dL (6.3-8.2)
[2024-10-13 18:59] LABS: INR 1.1 (<1.2); Partial Thromboplastin Time 23.9 sec (22.0-30.0); Prothrombin Time 11.7 sec (10.0-12.5)
[2024-10-13 20:29] VITALS: BP 104/54; PULSE 90
== END 2024-10-13 23:16 | disposition left against medical advice (07) ==
LOC: EC 16:41
DX: D64.9 Anemia, unspecified (principal); Z91.048 Other nonmedicinal substance allergy status; Z91.013 Allergy to seafood; Z88.5 Allergy status to narcotic agent; Z88.8 Allergy status to other drugs, medicaments and biological substances; Z91.040 Latex allergy status; Z53.29 Procedure and treatment not carried out because of patient's decision for other reasons
CPT/HCPCS: 36415; 80053; 85025; 85610; 85730; 86850; 86900; 86901; 86920; 99285